=== PATIENT | female | born 1950 | race Caucasian/White ===

== ENCOUNTER 2023-07-27 10:21 | Outpatient (OUT) | payer MEDICARE, OTHER, SELFPAY ==
--- NOTE | 2023-07-27 10:32 | MM_ITS ---
Patient: MIKY NOLEN Exam Date: 07/27/2023 : 1950 Gender:F Ordering : DR CORNEL ANAYA Admission #: [id number] Family : Order #: [id number] CLICK HERE TO VIEW EXAM RADIOLOGY REPORT PROCEDURE: MM TOMOSYNTHESIS SCREENING BI COMPARISON: MG MAMM SCREEN 3D TANMAY CAD, 05/04/2022. MG MAMM SCREEN TANMAY W CAD, 12/28/2020. MG MAMM SCREEN TANMAY W CAD, 01/27/2019. MG MAMM TANMAY SCRN W CAD DIG, 11/10/2013. INDICATIONS: Screening Calculator Name NCI Breast Cancer Risk Assessment Tool 5 Year Breast Cancer Risk 1.70% Lifetime Breast Cancer Risk 4.30% Personal Breast Cancer No Personal Ovarian Cancer No Treatments Hysterectomy, Oophrectomy Family Cancers Grandmother-maternal with throat,mouth cancer at age ~50; Brother with colon cancer at age ~60. LOCATION: [facility] BREAST COMPOSITION: Scattered areas fibroglandular density. FINDINGS: DIAGNOSTIC CATEGORY 2--BENIGN FINDING: RIGHT BREAST: No significant suspicious finding. Stable chronic opacity/nodule within the anterior lower-outer quadrant. No significant change has occurred. LEFT BREAST: No significant suspicious finding. No significant change has occurred. RECOMMENDATIONS: ROUTINE MAMMOGRAM AND CLINICAL EVALUATION IN 12 MONTHS. PLEASE NOTE: A NORMAL MAMMOGRAM DOES NOT EXCLUDE THE POSSIBILITY OF BREAST CANCER. A CLINICALLY SUSPICIOUS PALPABLE LUMP SHOULD BE BIOPSIED. Dictated by: Agusto Blanc M.D. on 07/27/2023 at 13:03 Approved by: Agusto Blanc M.D. on 07/27/2023 at 13:08
[2023-07-27 11:12] LABS: Bilirubin Urine NEGATIVE (NEGATIVE); Blood Urine LARGE (NEGATIVE); Clarity Urine CLEAR (CLEAR); Color Urine YELLOW (YELLOW); Glucose Urine UA NEGATIVE (NEGATIVE); Ketones Urine NEGATIVE (NEGATIVE); Leukocyte Esterase Urine TRACE (NEGATIVE); Nitrite Urine NEGATIVE (NEGATIVE); Protein Urine 100 mg/dL (NEG/TRACE); Specific Gravity Urine >=1.030 (1.005-1.025); Urobilinogen Urine 0.2 EU/dL (0.2-1.0); pH Urine 5.5 (5.0-9.0)
== END 2023-07-27 10:22 | disposition home or self-care (01) ==
LOC: MAMMO 10:26
PROVIDERS: PCP Family Medicine; Visit Provider Family Medicine
DX: Z12.31 Encounter for screening mammogram for malignant neoplasm of breast (principal); I10 Essential (primary) hypertension; R41.3 Other amnesia; Z80.0 Family history of malignant neoplasm of digestive organs
CPT/HCPCS: 77063; 77067; 81003

== ENCOUNTER 2023-10-08 16:10 | Outpatient (OUT) | payer MEDICARE, OTHER, SELFPAY ==
--- NOTE | 2023-10-08 | XR_ITS ---
The [address] [address] Patient Name: MIKY NOLEN MRN: [id number] date: 1950 Sex: F Assigned Patient Location: [facility] Current Patient Location: Accession/Order Number: [id number] Exam Date: 10/08/2023 16:25 Report Date: 10/09/2023 01:56 At the request of: DORA ALCAZAR Procedure: XR abdomen 1V EXAMINATION: XR abdomen 1V HISTORY: HX of Kidney Stones ; right abdominal pain, blood in urine COMPARISON: XR KUB 02/20/2023 FINDINGS: KIDNEY/URETER - RIGHT: Several calcifications projecting over kidney, with new 6 mm calcification projecting over renal pelvis versus proximal ureter. KIDNEY/URETER - LEFT: No visible renal or ureteral calcifications. PELVIS: No visible distal ureteral stone. Pelvic calcifications are grossly stable and favor phleboliths. BOWEL: No abnormal dilation or deviation. BONES: No acute abnormality. OTHER: Left upper quadrant rim calcifications which appear stable; suspect splenic artery aneurysm. XR/XR abdomen 1V IMPRESSION: 1. New stone within the renal pelvis versus proximal right ureter raising concern for hydronephrosis. Electronically authenticated by: KYLE CHENEY Date: 10/09/2023 01:56
== END 2023-10-08 16:11 | disposition home or self-care (01) ==
PROVIDERS: PCP Family Medicine; Visit Provider Physician Assistant
DX: N20.0 Calculus of kidney (principal)
CPT/HCPCS: 74018

== ENCOUNTER 2023-10-11 10:12 | Outpatient (OUT) | payer MEDICARE, OTHER, SELFPAY ==
--- NOTE | 2023-10-11 10:16 | CT_ITS ---
The [address] [address] Patient Name: MIKY NOLEN MRN: [id number] date: 1950 Sex: F Assigned Patient Location: CT Current Patient Location: Accession/Order Number: [id number] Exam Date: 10/11/2023 10:20 Report Date: 10/11/2023 22:45 At the request of: DORA ALCAZAR Procedure: CT abdomen pelvis wo con EXAM: CT abdomen pelvis wo con HISTORY: Kidney Stone N20.0 COMPARISON: CT abdomen pelvis, 03/17/2023. TECHNIQUE: Nonenhanced CT imaging the abdomen and pelvis was performed with sagittal and coronal reconstructions. Dose reduction techniques were achieved by using automated exposure control and/or adjustment of mA and/or kV according to patient size and/or use of iterative reconstruction technique. FINDINGS: CT ABDOMEN: The lung bases are clear. The imaged lower heart is unremarkable. The liver is enlarged at 20 cm in length on coronal image 47, but appears otherwise unremarkable. Cholelithiasis is noted without cholecystitis or biliary ductal dilatation. Age-related atrophy is seen in the otherwise unremarkable pancreas. There is a 1.2 cm central splenic cyst on image 22. The spleen is otherwise unremarkable. The adrenal glands appear within normal limits. There is mild right hydronephrosis due to a 9 mm stone near the right UPJ on image 49 of series 3, new since prior exam. Multiple additional smaller right renal calculi are noted. There is mild left hydronephrosis with a 5 mm proximal left ureteral stone at the L4 level on image 51. 2 punctate 1 mm left renal calculi are suggested image 41. The left kidney is otherwise unremarkable. There are minimal aortic and iliac arterial calcifications without aneurysm. The IVC appears unremarkable. There appears to be prior gastric bypass. The nonenhanced stomach and small bowel are otherwise unremarkable. CT PELVIS: A mobile cecum extends just across midline in the upper pelvic region on image 69. There is no cecal volvulus. The colon appears otherwise unremarkable. The pelvic small bowel loops and urinary bladder appear unremarkable. Prior hysterectomy is noted. The ovaries and appendix are not seen and may been removed as well. Bilateral pelvic phleboliths are present. No inflammatory fat stranding, free fluid, loculated fluid or free air is seen in the abdomen or pelvis. There is a mild grade 1 anterolisthesis of L4 on L5. No acute osseous abnormality or suspicious bony lesion is seen. CT/CT abdomen pelvis wo con IMPRESSION: 1. Multiple bilateral renal calculi with mild right hydronephrosis due to a new 9 mm stone near the right UPJ. 2. Mild left hydroureteronephrosis due to a new 5 mm left ureteral stone at the L4 level at the pelvic inlet. No additional acute findings in the abdomen or pelvis. Stable chronic changes are described above. Electronically authenticated by: LINO DUNN Date: 10/11/2023 22:45
== END 2023-10-11 10:13 | disposition home or self-care (01) ==
LOC: CT 10:12
PROVIDERS: PCP Family Medicine; Visit Provider Physician Assistant
DX: N20.0 Calculus of kidney (principal); N13.39 Other hydronephrosis
CPT/HCPCS: 74176

== ENCOUNTER 2023-10-24 15:52 | Outpatient (OUT) | payer MEDICARE, OTHER, SELFPAY ==
--- NOTE | 2023-10-24 15:54 | XR_ITS ---
The [address] [address] Patient Name: MIKY NOLEN MRN: [id number] date: 1950 Sex: F Assigned Patient Location: [facility] Current Patient Location: Accession/Order Number: [id number] Exam Date: 10/24/2023 15:57 Report Date: 10/26/2023 07:29 At the request of: YEHUDA HASSAN Procedure: XR abdomen 1V EXAMINATION: XR abdomen 1V HISTORY: Kidney Stone N20.0 COMPARISON: XR abdomen 10/08/2023, CT abdomen pelvis 03/05/2023 FINDINGS: KIDNEY/URETER - RIGHT: Persistent stones within right kidney. KIDNEY/URETER - LEFT: Small calcification projecting over left kidney. PELVIS: No appreciable ureteral stones. Stable pelvic calcifications favor phleboliths. BOWEL: No abnormal dilation or deviation. BONES: No acute abnormality. OTHER: Stable left upper quadrant splenic artery calcifications. Numerous surgical clips within the epigastric region. XR/XR abdomen 1V IMPRESSION: 1. Bilateral nephrolithiasis. 2. Previously seen calcification projecting over region of right renal pelvis/proximal ureter is no longer present, suggesting this has passed. Electronically authenticated by: KYLE CHENEY Date: 10/26/2023 07:29
--- OUTSIDE RECORDS SUMMARY | 2023-10-24 17:00 | XMS_ITS | CCD ---
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 Nick Carter Attending Unava ilable Carrillo, VERO Garcia Referring Unavailable WEST, DR WILLARD Pittman Admitting Unavailable FURLONG, DR CONNOR Marinelli Primary Care Unavailable WEST, DR WILLARD Pittman Attending Unavailable WEST, DR WILLARD Pittman Admitting Unavailable WEST, DR WILLARD Pittman Consulting Unavailable [facility] DR CONNOR Marinelli Primary Care Unavailable WEST, DR WILLARD Pittman Attending Unavailable FURLONG, DR CONNOR Marinelli Primary Care Unavailable WEST, DR WILLARD Pittamn Consulting Unavailable WEST, DR WILLARD Pittman Admitting Unavailable WEST, DR WILLARD Pittman Attending Unavailable MISC, DOCTOR Admitting Unavailable MISC, DOCTOR Attending Unavailable AVITIA ., DR DAN Consulting Unavailable FURLONG, DR CONNOR Marinelli Primary Care Unavailable MISC, DOCTOR Consulting Unavailable MO ., DR DAN Admitting Unavailable AVITIA ., DR DAN Attending Unavailable AVITIA ., DR DAN Consulting Unavailable FURLONG, DR CONNOR Marinelli Primary Care Unavailable Agusto Blanc Consulting Unavailable BEE, DR WILLARD Pittman Consulting Unavailable BEE, DR WILLARD Pittman Admitting Unavailable FURLONG, DR CONNOR Marinelli Primary Care Unavailable WEST, DR WILLARD Pittman Attending Unavailable Agusto Blanc Consulting Unavailable WEST, DR WILLARD Pittman Consulting Unavailable WEST, DR WILLARD Pittman Admitting Unavailable FURLONG, DR CONNOR Marinelli Primary Care Unavailable WEST, DR WILLARD Pittman Attending Unavailable ZieberAgusto Consulting Unavailable AVITIA ., DR DAN Admitting Unavailable AVITIA ., DR DAN Attending Unavailable AVITIA ., DR DAN Consulting Unavailable FURLONG, DR CONNOR Marinelli Primary Care Unavailable Zieber, Agusto Consulting Unavailable AVITIA ., DR DAN Admitting Unavailable AVITIA ., DR DAN Attending Unavailable AVITIA ., DR DAN Consulting Unavailable FURLONG, DR CONNOR Marinelli Primary Care Unavailable Zieber, Agusto Consulting Unavailable WEST, DR WILLARD Pittman Consulting Unavailable FURLONG, DR CONNOR Marinelli Primary Care Unavailable WEST, DR WILLARD Pittman Admgabriela Unavailable WEST, DR WILLARD Pittman Attending Unavailable FURLONG, DR CONNOR Marinelli Primary Care Unavailable WEST, DR WILLARD Pittman Admitting Unavailable WEST, DR WILLARD Pittman Consulting Unavailable WEST, DR WILLARD Pittman Attending Unavailable ZieberAgusto Consulting Unavailable FURLONG, DR CONNOR Marinelli Primary Care Unavailable WEST, DR WILLARD Pittman Consulting Unavailable WEST, DR WILLARD Pittman Admitting Unavailable WEST, DR WILLARD Pittman Attending Unavailable WEST, DR WILLARD Pittman Consulting Unavailable WEST, DR WILLARD Pittman Attending Unavailable WEST, DR WILLARD Pittman Admgabriela Unavailable FURLONG, DR CONNOR Marinelli Primary Care Unavailable Zieber, Agusto Consulting Unavailable WEST, DR WILLARD Pittman Consulting Unavailable WEST, DR WILLARD Pittman Admitting Unavailable FURLONG, DR CONNOR Marinelli Primary Care Unavailable WEST, DR WILLARD Pittman Attending Unavailable ZiebAgusto loya Consulting Unavailable WEST, DR WILLARD Pittman Consulting Unavailable FURLONG, DR CONNOR Marinelli Primary Care Unavailable WEST, DR WILLARD Pittman Admgabriela Unavailable WEST, DR WILLARD Pittman Attending Unavailable FURLONG, DR CONNOR Marinelli Primary Care Unavailable AVITIA ., DR DAN Admitting Unavailable AVITIA ., DR DAN Attending Unavailable AVITIA ., DR DAN Consulting Unavailable SANTHOSH NICK Consulting Unavailable FURLONG, DR CONNOR Marinelli Consulting Unavailable FURLONG, DR CONNOR Marinelli Admitting Unavailable FURLONG, DR CONNOR Marinelli Attending Unavailable FURLONG, DR CONNOR Marinelli Primary Care Unavailable Zieber, Agusto Consulting Unavailable FURLONG, DR CONNOR Marinelli Primary Care Unavailable STEPANIC, DR LAKHANI Attending Unavailable STEPANIC, DR LAKHANI Consulting Unavailable STEPANIC, DR LAKHANI Admitting Unavailable MISC, DOCTOR Admitting Unavailable MISC, DOCTOR Attending Unavailable AVITIA ., DR DAN Consulting Unavailable FURLONG, DR CONNOR Marinelli Primary Care Unavailable WEST, DR WILLARD Pittman Consulting Unavailable Zieber, Agusto Consulting Unavailable WEST, DR WILLARD Pittman Consulting Unavailable WEST, DR WILLARD Pittman Attending Unavailable WEST, DR WILLARD Pittman Admitting Unavailable FURLONG, DR CONNOR Marinelli Primary Care Unavailable WEST, DR WILLARD Pittman Consulting Unavailable FURLONG, DR CONNOR Marinelli Primary Care Unavailable WEST, DR WILLARD Pittman Admitting Unavailable WEST, DR WILLARD Pittman Attending Unavailable Zieber, Agusto Consulting Unavailable WEST, DR WILLARD Pittman Consulting Unavailable FURLONG, DR CONNOR Marinelli Primary Care Unavailable WEST, DR WILLARD Pittman Admitting Unavailable WEST, DR WILLARD Pittman Attending Unavailable WEST, DR WILLARD Pittman Consulting Unavailable FURLONG, DR CONNOR Marinelli Primary Care Unavailable WEST, DR WILLARD Pittman Admitting Unavailable WEST, DR WILLARD Pittman Attending Unavailable Zieber, Agusto Consulting Unavailable WEST, DR WILLARD Pittman Consulting Unavailable FURLONG, DR CONNOR Marinelli Primary Care Unavailable WEST, DR WILLARD Pittman Admgabriela Unavailable WEST, DR WILLARD Pittman Attending Unavailable Zieber, Agusto Consulting Unavailable WEST, DR WILLARD Pittman Admitting Unavailable WEST, DR WILLARD Pittman Consulting Unavailable FURLONG, DR CONNOR Marinelli Primary Care Unavailable WEST, DR WILLARD Pittman Attending Unavailable WEST, DR WILLARD Pittman Consulting Unavailable WEST, DR WILLARD Pittman Admitting Unavailable FURLONG, DR CONNOR Marinelli Primary Care Unavailable WEST, DR WILLARD Pittman Attending Unavailable FURLONG, DR CONNOR Marinelli Primary Care Unavailable WEST, DR WILLARD Pittman Consulting Unavailable WEST, DR WILLARD Pittman Admgabriela Unavailable WEST, DR WILLARD Pittman Attending Unavailable ZiebAgusto loya Consulting Unavailable FURLONG, DR CONNOR Marinelli Primary Care Unavailable WEST, DR WILLARD Giraldo Unavailable WEST, DR WILLARD Pittman Admgabriela Unavailable WEST, DR WILLARD Pittman Attending Unavailable FURLONG, DR CONNOR Marinelli Primary Care Unavailable WEST, DR WILLARD Pittman Consulting Unavailable WEST, DR WILLARD Pittman Admgabriela Unavailable WEST, DR WILLARD Pittman Attending Unavailable FURLONG, DR CONNOR Marinelli Primary Care Unavailable WEST, DR WILLARD Pittman Consulting Unavailable WEST, DR WILLARD Pittman Admitting Unavailable WEST, DR WILLARD Pittman Attending Unavailable Zieber, Agusto Consulting Unavailable WEST, DR WILLARD Pittman Consulting Unavailable WEST, DR WILLARD Pittman Attending Unavailable WEST, DR WILLARD Pittman Admitting Unavailable FURLONG, DR CONNOR Marinelli Primary Care Unavailable WEST, DR WILLARD Pittman Consulting Unavailable FURLONG, DR CONNOR Marinelli Primary Care Unavailable WEST, DR WILLARD Pittman Admitting Unavailable WEST, DR WILLARD Pittman Attending Unavailable MO ., DR DAN Admitting Unavailable AVITIA ., DR DAN Attending Unavailable AVITIA ., DR DAN Consulting Unavailable [place]UST[place], DR CONNOR Marinelli Primary Care Unavailable GAIL, DR WILLARD Pittman Consulting Unavailable GAIL, DR WILLARD Pittman Admitting Unavailable AUST[place], DR CONNOR Marinelli Primary Care Unavailable GAIL, DR WILLARD Pittman Attending Unavailable [facility] Admitting Unavailable [facility], [facility]CTOR Attending Unavailable [facility], [facility]CTOR Consulting Unavailable MARKEL, DR CONNOR Marinelli Primary Care Unavailable Sy AVITIA Attending Unavailable Sy AVITIA Attending Unavailable DORA ALCAZAR Attending Unavailable Allergies Allergy Classification Reported Allergen(s) Allergy Type Date of Onset Reaction(s) Facility (12 sources) Ciprofloxacin; Translations: [ciprofloxacin] Drug Allergy Eruption of skin (disorder) [facility] (12 sources) Sulfonamides (Antibiotic); Translations: [Sulfa Drugs] Allergy to drug (finding) Eruption of skin (disorder) [facility] (7 sources) corn extract; Translations: [[place]] Drug Allergy Unknown (qualifier value) [facility] (5 sources) Dog; Translations: [Dogs] Allergy to substance Unknown (qualifier value) [facility] (6 sources) Mold Extract; Translations: [mold] Drug Allergy Unknown (qualifier value) [facility] (5 sources) Milk Products; Translations: [Milk Products] Food allergy Unknown (qualifier value) [facility] (5 sources) house dust mite allergen extract; Translations: [house dust mite allergen extra] Allergy to substance Unknown (qualifier value) [facility] (2 sources) Ciprofloxacin Drug Allergy 4 [facility] (1 source) house dust allergenic extract Drug Allergy [facility] (2 sources) Lactose Drug Allergy [facility] (1 source) Sulfonamides (Antibiotic) Drug allergy (disorder) [facility] Medications Current Medications Medication Drug Class(es) Dates Sig (Normalized) Sig (Original) 8 hr acetaminophen 650 mg extended release oral tablet (11 sources) Start: 07-01-2020 take 1 tablet by mouth twice daily Tylenol 8 HR Arthritis Pain 650 mg oral tablet, extended release 650 mg = 1 tab(s), Oral, BID, Refills(s) 0 Start Date: 07/01/20 Status: Ordered allopurinol 300 mg oral tablet (11 sources) Xanthine Oxidase Inhibitor Start: 02-02-2022 take 1 tablet by mouth once daily allopurinol 300 mg Tab 300 mg = 1 tab(s), Oral, Daily, # 90 cap(s), Refills(s) 3, Pharmacy: [id number], 165, cm, 12/28/21 14:34:00 EST, Height/Length Dosing, 113.5, kg, 12/28/21 14:34:00 EST, Weight Dosing Start Date: 02/02/22 Status: Ordered Calcium Carbonate (11 sources) Start: 07-29-2019 take 1 tablet by mouth twice daily Caltrate 600 + D tab(s), Oral, BID Start Date: 07/29/19 Status: Ordered Caltrate 600+D T ABS Take 1 tablet daily Quantity: 0 Refills: 0 Ordered: 16-Aug-2021 DO Active Centrum Silver (4 sources) Start: 07-01-2020 take 1 tablet by mouth once daily Centrum Silver 1 tab(s), Oral, Daily, Refill(s) 0 Start Date: 07/01/20 Status: Ordered lisinopril 2.5 mg oral tablet (5 sources) Angiotensin Converting Enzyme Inhibitor Start: 06-30-2022 lisinopril 2.5 mg Tab Refills(s) 0 Start Date: 06/30/22 Status: Ordered loratadine 10 mg oral tablet (11 sources) Start: 07-29-2019 take 10 mg by mouth once daily Claritin 10 mg, Oral, Daily, Refills(s) 0 Start Date: 07/29/19 Status: Ordered take 1 capsule by mouth once devang ly Loratadine 10 MG Oral Capsule TAKE 1 CAPSULE Daily Quantity: 0 Refills: 0 Ordered: 16-Aug-2021 DO Active Abelino Krill Oil (4 sources) Start: 07-29-2019 take 1 capsule by mouth once daily Abelino Krill Oil Abelino Krill Oil, one cap., Oral, Daily Start Date: 07/29/19 Status: Ordered OTC joint supplement (4 sources) Start: 07-01-2020 take 1 tablet by mouth once daily OTC joint supplement OTC joint supplement, one tab, Oral, Daily Start Date: 07/01/20 Status: Ordered Vitamin D3 (4 sources) Start: 07-29-2019 Vitamin D3 1,0 00 International_Unit, Oral, Daily, Refills(s) 0 Start Date: 07/29/19 Status: Ordered Completed/Discontinued Medications Medication Drug Class(es) Dates Sig (Normalized) Sig (Original) Centrum Silver 50+Women Oral Tablet (7 sources) take 1 tablet by mouth once daily Centrum Silver 50+Women Oral Tablet TAKE 1 TABLET DAILY. Quantity: 0 Refills: 0 Ordered: 16-Aug-2021 DO Active cephalexin 500 mg oral capsule (1 source) Cephalosporin Antibacterial Start: 08-22-2022 take 1 capsule by mouth once daily Keflex 500 mg Cap 500 mg = 1 cap(s), Oral, Daily, Take 1 capsule the day before the procedure and 1 capsule after the procedure, # 2 cap(s), Refills(s) 0, Pharmacy: [facility] [id number], 165, cm, 06/30/22 11:48:00 EDT, Height/Length Dosing, 113, kg, 06/30/22 11:4... Start Date: 08/22/22 Status: Ordered cholecalciferol 0.025 mg oral tablet (7 sources) Vitamin D take 1 tablet by mouth twice daily Vitamin D3 25 MCG (1000 UT) Oral Tablet Take 1 tablet twice daily Quantity: 0 Refills: 0 Ordered: 16-Aug-2021 DO Active Collagen Ultra Oral Capsule (7 sources) take 1 capsule by mouth once daily Collagen Ultra Oral Capsule TAKE 1 CAPSULE Daily Quantity: 0 Refills: 0 Ordered: 16-Aug-2021 DO Active dronedarone 400 mg oral tablet (11 sources) Antiarrhythmic Start: 11-20-2022 take 1 tablet by mouth twice daily Multaq 400 MG Oral Tablet TAKE 1 TABLET Twice daily Quantity: 180 Refills: 3 Ordered: 20-Nov-2022 Nick Richardson MD Start : 20-Nov-2022 Active Start: 07-29-2019 take 400 mg by mouth twice daily Multaq 400 mg, Oral, BID, Refills(s) 0 Start Date: 07/29/19 Status: Ordered levothyroxine sodium 0.137 mg oral capsule (11 sources) l-Thyroxine Start: 07-29-2019 take 1 capsule by mouth once daily levothyroxine 137 mcg (0.137 mg) oral capsule 137 microgram = 1 cap(s), Oral, Daily Start Date: 07/29/19 Status: Ordered take 1 tablet by mouth once don y Levothyroxine Sodium 137 MCG Oral Tablet TAKE 1 TABLET DAILY. Quantity: 0 Refills: 0 Ordered: 16-Aug-2021 DO Active lovastatin 10 mg oral tablet (7 sources) HMG-CoA Reductase Inhibitor take 1 tablet by mouth once daily Lovastatin 10 MG Oral Tablet TAKE 1 TABLET DAILY DIRECTED. Quantity: 90 Refills: 3 Ordered: 06-Dec-2022 Nick Richardson MD Active [place] 3 CAPS (7 sources) [place] 3 CAPS BASSAM E DIRECTED. Quantity: 0 Refills: 0 Ordered: 16-Aug-2021 DO Active rivaroxaban 20 mg oral tablet (11 sources) Factor Xa Inhibitor Start: 07-29-2019 take 1 tablet by mouth once daily Xarelto 20 MG Oral Tablet TAKE 1 TABLET BY MOUTH DAILY Quantity: 90 Refills: 3 Ordered: 22-Aug-2022 Radha Tellez Start : 22-Aug-2022 Active Problems Active Problems Problem Classification Problem Date Documented Da te Episodic/Chronic Biliary tract disease (4 sources) Biliary calculus 12-07-2020 Episodic Calculus of urinary tract (20 sources) Kidney stone; Translations: [Calculus of kidney] Onset: 06-30-2022 Episodic Cardiac dysrhythmias (7 sources) Paroxysmal atrial fibrillation; Translations: [Atrial fibrillation] Chronic Diabetes mellitus without complication (5 sources) Diabetes mellitus; Translations: [Type 2 diabetes mellitus without complications] Onset: 02-24-2023 08-25-2019 Chronic Disorders of lipid metabolism (7 sources) Hyperlipidemia; Translations: [Other and unspecified hyperlipidemia] Chronic Essential hypertension (5 sources) Hypertensive disorder; Translations: [Essential (primary) hypertension] Onset: 02-24-2023 08-25-2019 Chronic Genitourinary symptoms and ill-defined conditions (4 sources) Genuine stress incontinence 08-16-2020 Chronic Genitourinary symptoms and ill-defined conditions (19 sources) Microscopic hematuria; Translations: [Asymptomatic microscopic hematuria] Onset: 06-30-2022 Episodic Heart valve disorders (4 sources) Irregular heart beat 08-25-2019 Episodic Nutritional deficiencies (1 source) Vitamin D deficiency, unspecified; Translations: [VITAMIN D DEFICIENCY UNSPECIFIED] Onset: 02-24-2023 Chronic Other aftercare (7 sources) Drug therapy finding; Translations: [Long-term (current) use of anticoagulants] Episodic Other circulatory disease (7 sources) Carotid bruit; Translations: [Other symptoms involving cardiovascular system] Episodic Other gastrointestinal disorders (4 sources) Bariatric surgery status; Translations: [BARIATRIC SURGERY STATUS] Onset: 02-20-2023 Episodic Other nutritional; endocrine; and metabolic disorders (14 sources) Body mass index 40+ - severely obese; Translations: [Body Mass Index 40.0-44.9, adult] 07-29-2019 Chronic Other nutritional; endocrine; and metabolic disorders (2 sources) Morbid obesity; Translations: [Morbid obesity] Chronic Other nutritional; endocrine; and metabolic disorders (1 source) Obesity; Translations: [Obesity, unspecified] Chronic [place]ne-; endo-; and myocarditis; cardiomyopathy (except that caused by tuberculosis or sexually transmitted disease) (7 sources) Cardiomyopathy; Translations: [Other primary cardiomyopathies] Chronic Residual codes; unclassified (1 source) Edema, unspecified; Translations: [EDEMA UNSPECIFIED] Onset: 02-24-2023 Episodic Septicemia (except in labor) (4 sources) Sepsis due to Enterobacter 08-16-2020 Episodic Thyroid disorders (11 sources) Hypothyroidism; Translations: [Unspecified acquired hypothyroidism] 08-25-2019 Chronic Unclassified (4 sources) Asymptomatic microscopic hematuria 08-16-2020 Unclassified (4 sources) Drug therapy finding 10-20-2020 Unclassified (1 source) GASTR-ESOPH RFLX DS ESPHGTS W/O BLD; Translations: [GASTR-ESOPH RFLX DS ESPHGTS W/O BLD] Onset: 02-24-2023 Urinary tract infections (5 sources) Urinary tract infectious disease; Translations: [Urinary tract infection, site not specified] Onset: 08-11-2022 08-16-2020 Episodic Past or Other Problems Problem Classification Problem Date Documented Da te Episodic/Chronic Other aftercare (4 sources) Encounter for surgical aftercare following surgery on the circulatory system; Translations: [ENC SURG AFTRCARE FLW SURG CIRC SYS] Onset: 2 Episodic Other circulatory disease (7 sources) H/O: hypertension; Translations: [Personal history of other diseases of circulatory system] Resolved: 1 Episodic Other nutritional; endocrine; and metabolic disorders (7 sources) H/O: diabetes mellitus; Translations: [Personal history of other endocrine, metabolic, and immunity disorders] Resolved: 1 Episodic Other screening for suspected conditions (not mental disorders or infectious disease) (8 sources) CT of abdomen abnormal; Translations: [Encounter for screening mammogram for malignant neoplasm of breast] Onset: 2 12-07-2020 Episodic Phlebitis; thrombophlebitis and thromboembolism (10 sources) Phlebitis and thrombophlebitis of superficial vessels of right lower extremity; Translations: [Phlebitis and thrombophlebitis of superficial vessels of left lower extremity] Onset: 2 Episodic Residual codes; unclassified (1 source) Family history of malignant neoplasm of digestive organs; Translations: [FAM HX MALIG NEOPLASM DIGESTIV ORGN] Onset: 2 Episodic Unclassified (1 source) Imaging result normal; Translations: [Normal coronary angiogram] Unclassified (5 sources) Never smoked tobacco; Translations: [Never a smoker] Varicose veins of lower extremity (5 sources) Varicose veins of bilateral lower extremities with pain; Translations: [VARICOSE VNS TANMAY LOW EXTREM W/PAIN] Onset: 2 Episodic Results Test Name Value Interpretation Reference Range Facility RAD - CT Reporton 10-16-2023 RAD - CT Report [id number] Normal [facility] RAD - CT Reporton 10-15-2023 RAD - CT Report [id number] 0TIFF Normal [facility] RAD - MISCon 10-15-2023 RAD - MISC [id number] 0TIFF Normal [facility] RAD - MISC [id number] 0TIFF Normal [facility] Ambulatory Visit Summaryon 1 12-10-2022 Ambulatory Visit Summary MIKY NOLEN :1950 Visit Date:10/09/2023 Ambulatory Visit Instructions Your Diagnosis Gross hematuria Right flank pain Tests Performed Urnls Dip Stick Auto w/o Microscopy POC 37515 Your Care Team Attending Physician - DORA ALCAZAR PA-C Primary Care Physician - CONNRO JEAN BAPTISTE DO This Is Your Medications List Non-Formulary Medication (OTC joint supplement) acetaminophen (Tylenol 8 HR Arthritis Pain 650 mg oral tablet, extended release) allopurinol (allopurinol 300 mg Tab) calcium-vitamin D (Caltrate 600 + D) cholecalciferol (Vitamin D3) dronedarone (Multaq) levothyroxine (levothyroxine 137 mcg (0.137 mg) oral capsule) lisinopril (lisinopril 2.5 mg Tab) lovastatin (lovastatin 10 mg Tab) multivitamin with minerals (Centrum Silver) rivaroxaban (Xarelto 20 mg oral tablet) Procedures Performed Cystoscopy (09/05/2022), Cystoscopy (11/30/2020), Cystoscopy (07/14/2020), Cystoscopy (07/08/2020), ESWL - Extracorporeal shock wave lithotripsy of bile duct calculus (07/17/2019), Gastric sleeve (10/29/2015), H/O: hysterectomy, Renal artery stent, Repair of ventral hernia. Discharge Vitals Height 165 cm Height 65 in Weight 113 kg Weight 248.6 lb BMI 41.51 Medications What How Much When Instructions Unchanged acetaminophen (Tylenol 8 HR Arthritis Pain 650 mg oral tablet, extended release) 1 Tablets By Mouth 2 times a day Unchanged allopurinol (allopurinol 300 mg Tab) 1 Tablets By Mouth Every day Unchanged calcium-vitamin D (Caltrate 600 + D) By Mouth 2 times a day Unchanged cholecalciferol (Vitamin D3) 1,000 International unit By Mouth Every day Unchanged dronedarone (Multaq) 400 Milligram By Mouth 2 times a day Unchanged levothyroxine (levothyroxine 137 mcg (0.137 mg) oral capsule) 1 Capsules By Mouth Every day Unchanged lisinopril (lisinopril 2.5 mg Tab) Unchanged lovastatin (lovastatin 10 mg Tab) Unchanged multivitamin with minerals (Centrum Silver) 1 Tablets By Mouth Every day Unchanged Non-Formulary Medication (OTC joint supplement) one tab By Mouth Every day Unchanged rivaroxaban (Xarelto 20 mg oral tablet) 1 Tablets Every day Test Results Urnls Dip Stick Auto w/o Microscopy POC 34112 (10/09/2023) Bilirubin Urine Dipstick - Negative Blood Urine Dipstick - 3+ Large Glucose Urine Dipstick - Negative Ketones Urine Dipstick - Negative Leukocytes Urine Dipstick - Negative Nitrite Urine Dipstick - Negative Protein Urine Dipstick - 3+ (300 mg/dl) Specific [place] Urine Dipstick - >=1.030 Urine Appearance Urine Dipstick - Clear Urine Color Urine Dipstick - Yellow Urobilinogen Urine Dipstick - Normal 0.2-1 EU/dl pH Urine Dipstick - 5.5 Allergies [place] (Unknown) Dogs (Unknown) Milk Products (Unknown) Mold (Unknown) ciprofloxacin (Rash) house dust mite allergen extract (Unknown) sulfa drugs (Rash) Problems Ongoing - Any problem that you are currently receiving treatment for. Abnormal abdominal CT scan Anticoagulated Asymptomatic microscopic hematuria BMI 40.0-44.9, adult BMI 45.0-49.9, adult Cholelithiasis Diabetes Enterobacter sepsis Gross hematuria History of kidney stones Hypertension Hypothyroidism Irregular heart beat Kidney stone Nocturia Stress incontinence Urinary frequency Urinary urgency UTI (urinary tract infection) Patient Survey You may receive a survey via text or e-mail asking about your office visit. Please share your experience with us by completing your survey. We appreciate your feedback and thank you for choosing us for your care. Normal [facility] Patient Educationon 10-09-20 Patient Education Urology Hematuria, Adult Hematuria is blood in the urine. Blood may be visible in the urine, or it may be identified with a test. This condition can be caused by infections of the bladder, urethra, kidney, or prostate. Other possible causes include: ? Kidney stones. ? Cancer of the urinary tract. ? Too much calcium in the urine. ? Conditions that are passed from parent to child (inherited conditions). ? Exercise that requires a lot of energy. Infections can usually be treated with medicine, and a kidney stone usually will pass through your urine. If neither of these is the cause of your hematuria, more tests may be needed to identify the cause of your symptoms. It is very important to tell your health care provider about any blood in your urine, even if it is painless or the blood stops without treatment. Blood in the urine, when it happens and then stops and then happens again, can be a symptom of a very serious condition, including cancer. There is no pain in the initial stages of many urinary cancers. Follow these instructions at home: Medicines ? Take lurg-fjk-wnbfzri and prescription medicines only as told by your health care provider. ? If you were prescribed an antibiotic medicine, take it as told by your health care provider. Do not stop taking the antibiotic even if you start to feel better. Eating and drinking ? Drink enough fluid to keep your urine pale yellow. It is recommended that you drink 3?4 quarts (2.8?3.8 L) a day. If you have been diagnosed with an infection, drinking cranberry juice in addition to large amounts of water is recommended. ? Avoid caffeine, tea, and carbonated beverages. These tend to irritate the bladder. ? Avoid alcohol because it may irritate the prostate (in males). General instructions ? If you have been diagnosed with a kidney stone, follow your health care provider's instructions about straining your urine to catch the stone. ? Empty your bladder often. Avoid holding urine for long periods of time. ? If you are female: ? After a bowel movement, wipe from front to back and use each piece of toilet paper only once. ? Empty your bladder before and after sex. ? Pay attention to any changes in your symptoms. Tell your health care provider about any changes or any new symptoms. ? It is up to you to get the results of any tests. Ask your health care provider, or the department that is doing the test, when your results will be ready. ? Keep all follow-up visits. This is important. Contact a health care provider if: ? You develop back pain. ? You have a fever or chills. ? You have nausea or vomiting. ? Your symptoms do not improve after 3 days. ? Your symptoms get worse. Get help right away if: ? You develop severe vomiting and are unable to take medicine without vomiting. ? You develop severe pain in your back or abdomen even though you are taking medicine. ? You pass a large amount of blood in your urine. ? You pass blood clots in your urine. ? You feel very weak or like you might faint. ? You faint. Summary ? Hematuria is blood in the urine. It has many possible causes. ? It is very important that you tell your health care provider about any blood in your urine, even if it is painless or the blood stops without treatment. ? Take scui-xja-uzhsacn and prescription medicines only as told by your health care provider. ? Drink enough fluid to keep your urine pale yellow. This information is not intended to replace advice given to you by your health care provider. Make sure you discuss any questions you have with your health care provider. Document Revised: 06/15/2021 Document Reviewed: 06/15/2021 [employer] Patient Education ? 2022 [email or web address] [facility] Urology Office/Clinic Noteon 10-09-2023 Urology Office/Clinic Note Chief Complaint Gross hematuria HPI Staff 73 year old female here for F/U with KUB done 10/08/23. Previous DX: kidney stones and gross hematuria. S/P ESWL done 11/18/20. Dysuria: no Incomplete bladder emptying: no Hematuria: Pt. states she was having gross hematuria 3 days ago. Pt. states today urine in much better. Frequency: about 2-3 hours Urgency: moderate Nocturia: 3x's Stream: strong stream Post void dripping: no Wearing pads/ Depends: Pt. states she does wear pad for just in case. Urge incontinence: rarely Stress incontinence: no Incontinence without Sensory Awareness: no Abdominal pain: Pt. states Rt side Flank pain: mild Rt. flank Review of Systems PHQ Score Initial Depression Screen Score: 0 SCORE no fever, chills, malaise, myalgia. no rash/lesions. no chest pain, palpitations, or SOB. no abdominal pain, nausea, vomiting. no unilateral calf swelling, redness, pain Physical Exam Vitals & Measurements HT: 65 in HT: 165 cm WT: 113 kg WT: 248.6 lb BMI: 41.51 General: nontoxic, NAD Mouth: moist mucosa Lungs: normal respiratory effort Cardio: regular rate, good distal perfusion Abdomen: nondistended, no suprapubic distention or tenderness, mild R CVA tenderness Neurologic: Grossly normal Skin: No rashes or suspicious lesions Assessment/Plan 1. Right flank pain (R10.9: Unspecified abdominal pain) started about 5 days ago. intermittent. waxes and wanes in severity btwn mild and moderate. does not radiate. no nausea/vomiting/fever/ chills +gross hematuria x3d, has since resolved feels similar to previous stones KUB 10/08/23 suspicious for 6mm R renal pelvis vs proximal ureteral stone discussed options - STAT WILLARD vs STAT CT w/o. pt prefers the latter. then based on PRW review of results will likely proceed w ESWL. The procedure risks, benefits, details and treatment alternatives have been discussed with the patient. These include blood in the urine, infection, bleeding around the kidney, kidney bruising, inability to break up the stone, need for blood transfusion, blockage from stone fragments, and need for additional procedures, among others. Full informed consent has been obtained. Will order General anesthesia. Flomax sent to help w stone passage. increase fluids. declines offer for pain meds/nausea meds. will call if things worsen. ER in meantime for severe pain, intractable vomiting, fever. Ordered: tamsulosin, 0.4 mg = 1 cap(s), Oral, Daily, # 30 cap(s), Refills(s) 0, Pharmacy: [facility], 165, cm, 10/09/23 15:24:00 EST, Height/Length Dosing, 113, kg, 10/09/23 15:24:00 EST, Weight Dosing CT Abdomen w/o Contrast E&M of Est. Patient Moderate 30-39 Min 78234 2. Kidney stones (N20.0: Calculus of kidney) see #1 KUB from this spring showed several medium (6-7mm) R renal stones has had multiple lithotripsy in past Ordered: tamsulosin, 0.4 mg = 1 cap(s), Oral, Daily, # 30 cap(s), Refills(s) 0, Pharmacy: [facility], 165, cm, 10/09/23 15:24:00 EST, Height/Length Dosing, 113, kg, 10/09/23 15:24:00 EST, Weight Dosing CT Abdomen w/o Contrast E&M of Est. Patient Moderate 30-39 Min 42175 3. Gross hematuria (R31.0: Gross hematuria) see #1 Ordered: tamsulosin, 0.4 mg = 1 cap(s), Oral, Daily, # 30 cap(s), Refills(s) 0, Pharmacy: [facility], 165, cm, 10/09/23 15:24:00 EST, Height/Length Dosing, 113, kg, 10/09/23 15:24:00 EST, Weight Dosing CT Abdomen w/o Contrast E&M of Est. Patient Moderate 30-39 Min 87941 Urnls Dip Stick Auto w/o Microscopy POC [id number] Follow-up With When Contact Information DORA ALCAZAR PA-C, [address] [place] [address] [facility] (1) Additional Instructions: pending results of imaging/testing, will call with next steps Patient Education Hematuria, Adult Problem List/Past Medical History Ongoing Abnormal abdominal CT scan Anticoagulated Asymptomatic microscopic hematuria BMI 40.0-44.9, adult BMI 45.0-49.9, adult Cholelithiasis Diabetes Enterobacter sepsis Gross hematuria History of kidney stones Hypertension Hypothyroidism Irregular heart beat Kidney stone Nocturia Stress incontinence Urinary frequency Urinary urgency UTI (urinary tract infection) Historical No qualifying data Procedure/Surgical History Cystoscopy (09/05/2022), Cystoscopy (11/30/2020), Cystoscopy (07/14/2020), Cystoscopy (07/08/2020), ESWL - Extracorporeal shock wave lithotripsy of bile duct calculus (07/17/2019), Gastric sleeve (10/29/2015), H/O: hysterectomy, Renal artery stent, Repair of ventral hernia. Medications allopurinol 300 mg Tab, 300 mg= 1 tab(s), Oral, Daily, 3 refills Caltrate 600 + D, Oral, BID Centrum Silver, 1 tab(s), Oral, Daily Flomax 0.4 mg Cap, 0.4 mg= 1 cap(s), Oral, Daily levothyroxine 137 mcg (0.137 mg) oral capsule, 137 mcg= 1 cap(s), Oral, Daily lisinopril 2.5 mg Tab lovastatin 10 mg Tab Multaq, 400 mg, Oral, B (more content not included)... Normal [facility] Comment on above: Result Comment: Elec tronically Signed By: DORA ALCAZAR PA-C\.br\Date and Time Signed: 10/09/23 15:49 EST Urine Cytology ([facility])on 0 03-13-2023 Urine Cytology Diagnosis Info Invalid Interpretation Code [facility] Comment on above: Result Comment: A:Ur ine,Urine:Voided Interpretation - Rare small groups of atypical urothelial cells with degeneration. Adequate cellularity for evaluation. MicroScopic Description - Adequacy - Gross Description Site ID:A color Orangeish fixative Alcohol Specimen designated Urine received in alcohol preservative and labeled with the patient?s name, consists of 80ml slightly cloudy orangeish fluid. Electronically signed by : on: 03/13/2023 08:02:13 Performed By: #### 1 [id number] ####[facility] [address] [place] [address] Lab Reportson 03-07-2023 Lab Reports [id number] 0CD:127 Normal [facility] Lab Reports [id number]. 00CD:127 Normal [facility] RAD - CT Reporton 03-07-2023 RAD - CT Report [id number] 0CD:127 Normal [facility] RAD - MISCon 03-07-2023 RAD - MISC [id number] 0CD:127 Normal [facility] CREATININEon 03-05-2023 Creatinine [Mass/Vol] 1.16 mg/dL Critically high 0.55-1.02 [facility] Comment on above: Performed By: #### C AIYANA #### [facility] [address] [address] [address] Alysha Machuca EGFR-AF GRENADIAN 56 mL/min/1.73m2 Critically low >=60 [facility] Comment on above: Performed By: #### C AIYANA #### [facility] [address] [address] [address] Alysha Machuca EGFR-NON AF GRENADIAN 46 mL/min/1.73m2 Critically low >=60 [facility] Comment on above: Performed By: #### C AIYANA #### [facility] [address] [address] ABD/PELVIS WO CONon 03-05 CT ABD/PELVIS WO CON EXAMINATION: CT ABD/PELVIS WO CON HISTORY: Kidney stone ; microscopic hematuria COMPARISON: CT abdomen pelvis 05/26/2022 TECHNIQUE: Axial, Coronal, and Sagittal images were obtained without and/or with IV contrast as indicated by examination type. Dose reduction techniques were achieved by using automated exposure control and/or adjustment of mA and/or kV according to patient size and/or use of iterative reconstruction technique. FINDINGS: LUNG BASES: No visible pulmonary or pleural disease. LIVER: No enlargement, atrophy, suspicious density, or significant focal lesion. BILIARY: 8 mm stone within noninflamed gallbladder. PANCREAS: No lesion, fluid collection, or abnormal duct dilatation. SPLEEN: No enlargement or focal lesion. ADRENALS: No mass or enlargement. KIDNEYS: Several stones within the kidneys, largest is on right, 7 x 6 x 5 mm. No appreciable mass or obstruction. Unremarkable ureters. BOWEL/MESENTERY: Prior gastric surgery. No visible mass, obstruction, or bowel wall thickening. AORTA/VASCULAR: No aneurysm or dissection. RETROPERITONEUM: No mass or adenopathy. LYMPH NODES: No adenopathy. URINARY BLADDER: No visible focal wall thickening, lesion, or calculus. PELVIC ORGANS: Hysterectomy. ABDOMINAL WALL: No mass or hernia. BONES: L4-5 moderate degenerative disc disease and grade 1 anterior listhesis. OTHER: Negative. IMPRESSION: 1. Bilateral nonobstructing nephrolithiasis likely contributing to patient's symptoms. 2.Cholelithiasis. Electronically authenticated by: AGUSTO BLANC Date: 2023-03-05 15:08 Normal [facility] Patient Educationon 03-02-20 23 Patient Education Urology Kidney Stones Kidney stones are rock-like masses that form inside of the kidneys. Kidneys are organs that make pee (urine). A kidney stone may move into other parts of the urinary tract, including: ? The tubes that connect the kidneys to the bladder (ureters). ? The bladder. ? The tube that carries urine out of the body (urethra). Kidney stones can cause very bad pain and can block the flow of pee. The stone usually leaves your body (passes) through your pee. You may need to have a doctor take out the stone. What are the causes? Kidney stones may be caused by: ? A condition in which certain glands make too much parathyroid hormone (primary hyperparathyroidism). ? A buildup of a type of crystals in the bladder made of a chemical called uric acid. The body makes uric acid when you eat certain foods. ? Narrowing (stricture) of one or both of the ureters. ? A kidney blockage that you were born with. ? Past surgery on the kidney or the ureters, such as gastric bypass surgery. What increases the risk? You are more likely to develop this condition if: ? You have had a kidney stone in the past. ? You have a family history of kidney stones. ? You do not drink enough water. ? You eat a diet that is high in protein, salt (sodium), or sugar. ? You are overweight or very overweight (obese). What are the signs or symptoms? Symptoms of a kidney stone may include: ? Pain in the side of the belly, right below the ribs (flank pain). Pain usually spreads (radiates) to the groin. ? Needing to pee often or right away (urgently). ? Pain when going pee (urinating). ? Blood in your pee (hematuria). ? Feeling like you may vomit (nauseous). ? Vomiting. ? Fever and chills. How is this treated? Treatment depends on the size, location, and makeup of the kidney stones. The stones will often pass out of the body through peeing. You may need to: ? Drink more fluid to help pass the stone. In some cases, you may be given fluids through an IV tube put into one of your veins at the hospital. ? Take medicine for pain. ? Make changes in your diet to help keep kidney stones from coming back. Sometimes, medical procedures are needed to remove a kidney stone. This may involve: ? A procedure to break up kidney stones using a beam of light (laser) or shock waves. ? Surgery to remove the kidney stones. Follow these instructions at home: Medicines ? Take xxtm-nwe-lxchzoc and prescription medicines only as told by your doctor. ? Ask your doctor if the medicine prescribed to you requires you to avoid driving or using heavy machinery. Eating and drinking ? Drink enough fluid to keep your pee pale yellow. You may be told to drink at least 8?10 glasses of water each day. This will help you pass the stone. ? If told by your doctor, change your diet. This may include: ? Limiting how much salt you eat. ? Eating more fruits and vegetables. ? Limiting how much meat, poultry, fish, and eggs you eat. ? Follow instructions from your doctor about eating or drinking restrictions. General instructions ? Collect pee samples as told by your doctor. You may need to collect a pee sample: ? 24 hours after a stone comes out. ? 8?12 weeks after a stone comes out, and every 6?12 months after that. ? Strain your pee every time you pee (urinate), for as long as told. Use the strainer that your doctor recommends. ? Do not throw out the stone. Keep it so that it can be tested by your doctor. ? Keep all follow-up visits as told by your doctor. This is important. You may need follow-up tests. How is this prevented? To prevent another kidney stone: ? Drink enough fluid to keep your pee pale yellow. This is the best way to prevent kidney stones. ? Eat healthy foods. ? Avoid certain foods as told by your doctor. You may be told to eat less protein. ? Stay at a healthy weight. Where to find more information ? National Kidney Foundation (NKF): www.kidney.org ? [employer] (UCF): www.urologyhealth.org Contact a doctor if: ? You have pain that gets worse or does not get better with medicine. Get help right away if: ? You have a fever or chills. ? You get very bad pain. ? You get new pain in your belly (abdomen). ? You pass out (faint). ? You cannot pee. Summary ? Kidney stones are rock-like masses that form inside of the kidneys. ? Kidney stones can cause very bad pain and can block the flow of pee. ? The stones will often pass out of the body through peeing. ? Drink enough fluid to keep your pee pale yellow. This information is not intended to replace advice given to you by your health care provider. Make sure you discuss any questions you have with your health care provider. Document Revised: 06/19/2022 Document Reviewed: 06/19/2022 [employer] Patient Education ? 2022 [employer] Normal [facility] Urine Cytology ([facility])on 0 03-02-2023 Method of Extraction Voided Normal [facility] Comment on above: Performed By: #### 1 [id number] ####[facility] [address] [place] [address] Number of Jars 1 Invalid Interpretation Code [facility] Comment on above: Performed By: #### 1 [id number] ####[facility] [address] [place] [address] Specimen Urine Normal [facility] Comment on above: Performed By: #### 1 [id number] ####[facility] [address] [place] [address] Type of Service Technical Only Normal [facility] Comment on above: Performed By: #### 1 [id number] ####[facility] [address] [place] [address] Urology Office/Clinic Noteon 03-02-2023 Urology Office/Clinic Note Chief Complaint follow up w/KUB HPI Staff 8m KUB due to Kidney Stone & Microscopic Hematuria. Since last encounter, pt called our office 08/08/22 c/o blood in urine. NEG C&S done 08/11/22. Cysto then done 09/05/22. NEG Cytology 09/05/22. IVP was ordered, however when pt went to get the test done, they were unable to get IV in. KUB was then done 11/03/22. PRW recommended Holmium Laser. Pt stated she was not having symptoms, wanted to hold off at that time. Pt then called our office again on 12/15/22 c/o blood in urine and back pain, wanted to get KUB. When pt was later contacted about symptoms she then denied blood in urine & back pain. Recent KUB done 02/20/23. Since November denies flank/back pain as well as blood in urine. Has not noticed if she passed stone. Intermittently strains urine. Has been increasing fluid intake as recommended. Denies any current stone symptoms. Denies all urinary complaints. History of Present Illness Tests reviewed: Reviewed UA and KUB. I have reviewed the previous health record information and history for this patient from Dr. Avitia. I have reviewed and verified the staff HPI to be accurate for this encounter. There have been no associated fever, chills, flank pain, or blood in the urine. Denies any urinary infections since last encounter. Review of Systems PHQ Score Initial Depression Screen Score: 0 ROS - Provider Constitutional: denies weight loss, denies hot flashes. Eyes: denies eye problems. Gastrointestinal: denies nausea, denies vomiting. Cardiovascular: denies chest pain or angina. Integumentary: no dryness Musculoskeletal: denies musculoskeletal symptoms. ENMT: denies otolaryngeal symptoms. Respiratory: no shortness of breath. Heme/Lymph: denies easy bleeding tendency, denies easy bruising tendency. Psychiatric: no confusion, no anxiety. Genitourinary: See HPI. Physical Exam Vitals & Measurements HR: 68(Peripheral) RR: 16 BP: 132/80 HT: 65 in HT: 165 cm WT: 113 kg WT: 248.6 lb BMI: 41.51 General Appearance: alert , no acute distress, well nourished, well developed female. Genitourinary: bladder nonpalpable, no flank pain. Assessment/Plan 1. Kidney stone (N20.0: Calculus of kidney) S/p L ESWL 11/18/2020. Stone analysis 12/2020 calcium oxalate stones. Patient continues Allopurinol 300mg daily. Phoned our office 08/08/22 due to gross hematuria which was followed by work up. IVP was ordered 08/2022, however when pt went to get the test done, they were unable to get IV in. KUB was then done 11/03/22. PRW recommended Holmium Laser. Pt stated she was not having symptoms, wanted to hold off at that time. Pt then called our office again on 12/15/22 c/o blood in urine and back pain, wanted to get KUB. When pt was later contacted about symptoms she then denied blood in urine & back pain. KUB 02/20/23 2 stones within inferior pole of right kidney, largest is 6 mm. Since November denies flank/back pain as well as blood in urine. Patient thinks she may have passed stone, but did not see it. Intermittently strains urine. Has been increasing fluid intake as recommended. I advised CT AP w/wo contrast to further evaluate kidneys. 2. Gross hematuria (R31.0: Gross hematuria) Since last encounter, patient called our office 08/08/22 c/o blood in urine. NEG C&S done 08/11/22. Cysto 09/05/22 neg for b.t. NEG Cytology 09/05/22. UA today LARGE blood. Follow-up With When Contact Information MO HAYDEN, Sy Haddad, [address] [place] [address]- Additional Instructions: schedule CT Patient Education Kidney Stones, Yoex-ue-Vbki I, Chantal Bishop, personally scribed for Dr. Avitia on 03/02/2023 12:57:02. . Documentation recorded by the scribe, Chantal Bishop, accurately reflects the services(s) I performed and decisions made by me. Authenticated by Dr. Avitia on 03/02/2023 13:00:02. Problem List/Past Medical History Ongoing Abnormal abdominal CT scan Anticoagulated Asymptomatic microscopic hematuria BMI 40.0-44.9, adult BMI 45.0-49.9, adult Cholelithiasis Diabetes Enterobacter sepsis Gross hematuria History of kidney stones Hypertension Hypothyroidism Irregular heart beat Kidney stone Nocturia Stress incontinence Urinary frequency Urinary urgency UTI (urinary tract infection) Historical No qualifying data Procedure/Surgical History Cystoscopy (09/05/2022), Cystoscopy (11/30/2020), Cystoscopy (07/14/2020), Cystoscopy (07/08/2020), ESWL - Extracorporeal shock wave lithotripsy of bile duct calculus (07/17/2019), Gastric sleeve (10/29/2015), H/O: hysterectomy, Renal artery stent, Repair of ventral hernia. Medications allopurinol 300 mg Tab, 300 mg= 1 tab(s), Oral, Daily, 3 refills Caltrate 600 + D, Oral, BID Centrum Silver, 1 tab(s), Oral, Daily levothyroxine 137 mcg (0.137 mg) oral capsule, 137 mcg= 1 cap(s), Oral, Daily lisinopril 2.5 mg Tab lovastati (more content not included)... Normal [facility] Comment on above: Result Comment: Elec tronically Signed By: Sy AVITIA MD\.br\Date and Time Signed: 03/02/23 13:00 EDT\.br\Electronically Co-Signed By: Chantal Bishop\.br\Date and Time Co-Signed: 03/02/23 12:57 EDT VITAMIN B1 (THIAMINE)on 01-28 Vit. B1, Whole Blood 132.2 nmol/L Normal 66.5-200.0 [facility] Comment on above: Performed By: #### V [id number] ####[facility] [address] [address]Dr[address] Alysha Machuca CBC AUTO DIFFon 02-20-2023 BASO # 0.1 103/ul Normal 0.0-0.1 [facility] Comment on above: Performed By: #### C BC #### [facility] [address] [address] [address] Alysha Machuca Basophils/100 WBC (Bld) 0.9 % Normal 0.2-2.0 [facility] Comment on above: Performed By: #### C BC #### [facility] [address] [address] [address] Alysha Machuca EO # 0.2 103/ul Normal 0.0-0.7 [facility] Comment on above: Performed By: #### C BC #### [facility] [address] [address] [address] Alysha Machuca Eosinophils/100 WBC (Bld) 3.0 % Normal 0.9-7.0 [facility] Comment on above: Performed By: #### C BC #### [facility] [address] [address] [address] Alysha Machuca Erythrocyte distribution width (RBC) [Ratio] 13.9 % Normal 11.0-15.0 [facility] Comment on above: Performed By: #### C BC #### [facility] [address] [address] [address] Alysha Machuca Hematocrit (Bld) [Volume fraction] 39.5 % Normal 36.0-48.0 [facility] Comment on above: Performed By: #### C BC #### [facility] [facility] [address] [place] [address] Dr. Alysha Machuca Hemoglobin (Bld) [Mass/Vol] 12.7 g/dL Normal 12.0-16.0 [facility] Comment on above: Performed By: #### C BC #### [facility] [address] [place] [address] Dr. Alysha Machuca IG # 0.01 10e3/ul Normal 0.00-0.03 [facility] Comment on above: Performed By: #### C BC #### [facility] [address] [place] [address] Dr. Alysha Machuca IG % 0.2 % Normal 0.0-0.5 [facility] Comment on above: Performed By: #### C BC #### [facility] [address] [place] [address] Dr. Alysha Machuca LYMPH # 1.7 103/ul Normal 1.2-3.8 [facility] Comment on above: Performed By: #### C BC #### [facility] [address] [place] [address] Dr. Alysha Machuca Lymphocytes/100 WBC (Bld) 30.7 % Normal 20.5-60.0 [facility] Comment on above: Performed By: #### C BC #### [facility] [address] [place] [address] Dr. Alysha Machuca MANUAL DIFF REQ NO Normal [facility] Comment on above: Performed By: #### C BC #### [facility] [address] [place] [address] Dr. Alysha Machuca MCH (RBC) [Entitic mass] 29.3 pg Normal 26.7-34.0 [facility] Comment on above: Performed By: #### C BC #### [facility] [address] [place] [address] Dr. Alysha Machuca MCHC (RBC) [Mass/Vol] 32.2 g/dL Normal 29.9-35.2 [facility] Comment on above: Performed By: #### C BC #### [facility] [address] [address] [address] Alysha Machuca MCV (RBC) [Entitic vol] 91.0 fL Normal 81.0-99.0 [facility] Comment on above: Performed By: #### C BC #### [facility] [address] [address] [address] Alysha Machuca MONO # 0.4 103/ul Normal 0.3-0.8 [facility] Comment on above: Performed By: #### C BC #### [facility] [address] [address] [address] Alysha Machuca Monocytes/100 WBC (Bld) 6.8 % Normal 1.7-12.0 [facility] Comment on above: Performed By: #### C BC #### [facility] [address] [place] [address] Dr. Alysha Machuca NEUT # 3.3 103/ul Normal 1.4-6.5 [facility] Comment on above: Performed By: #### C BC #### [facility] [address] [place] [address] Dr. Alysha Machuca Neutrophils/100 WBC (Bld) 58.4 % Normal 43.0-75.0 [facility] Comment on above: Performed By: #### C BC #### [facility] [address] [place] [address] Dr. Alysha Machuca Platelet mean volume (Bld) [Entitic vol] 9.3 fL Critically low 9.5-13.5 [facility] Comment on above: Performed By: #### C BC #### [facility] [address] [place] [address] Dr. Alysha Machuca PLT 186 103/ul Normal 150-450 [facility] Comment on above: Performed By: #### C BC #### [facility] [address] [place] [address] Dr. Alysha Machuca RBC 4.34 106/ul Normal 4.20-5.40 [facility] Comment on above: Performed By: #### C BC #### [facility] [address] [place] [address] Dr. Alysha Machuca WBC 5.6 103/ul Normal 4.0-11.0 [facility] Comment on above: Performed By: #### C BC #### [facility] [address] [address] [address] Alysha Machuca FERRITINon 02-20-2023 Ferritin [Mass/Vol] 36.0 ng/mL Normal 8.0-252.0 [facility] Comment on above: Performed By: #### F ERR, B12FOL, FETIBC, VITAD ####[facility] [address] [address]Dr. Alysha Machuca IRON AND TIBCon 02-20-2023 % SATURATION 15.8 % Normal [facility] Comment on above: Performed By: #### F ERR, B12FOL, FETIBC, VITAD ####[facility] [address] [address]Dr. Alysha Machuca Iron [Mass/Vol] 53.0 ug/dL Normal 50.0-170.0 [facility] Comment on above: Performed By: #### F ERR, B12FOL, FETIBC, VITAD ####[facility] [address] [address]Dr. Alysha Machuca TIBC DIRECT 335.0 ug/dL Normal 250.0-450.0 [facility] Comment on above: Performed By: #### F ERR, B12FOL, FETIBC, VITAD ####[facility] [address] [address]Dr. Alysha Machuca MAGNESIUMon 02-20-2023 Magnesium [Mass/Vol] 1.9 mg/dL Normal 1.8-2.4 [facility] Comment on above: Performed By: #### P HOS, CMP, MG #### [facility] [address] [address] [address] Alysha Machuca PHOSPHORUSon 02-20-2023 Phosphate [Mass/Vol] 3.9 mg/dL Normal 2.6-4.7 [facility] Comment on above: Performed By: #### P HOS, CMP, MG #### [facility] [address] [address] [address] Alysha Machuca PROF 14(COMP METB)on 023 Albumin [Mass/Vol] 3.4 g/dL Normal 3.4-5.0 [facility] Comment on above: Performed By: #### P HOS, CMP, MG #### [facility] [address] [address] [address] Alysha Machuca Albumin/Globulin [Mass ratio] 0.9 {ratio} Normal [facility] Comment on above: Performed By: #### P HOS, CMP, MG #### [facility] [address] [address] [address] Alysha Machuca ALP [Catalytic activity/Vol] 123 U/L Critically high 46-116 [facility] Comment on above: Performed By: #### P HOS, CMP, MG #### [facility] [address] [address] [address] Alysha Machuca ALT [Catalytic activity/Vol] 21 U/L Normal 14-59 [facility] Comment on above: Performed By: #### P HOS, CMP, MG #### [facility] [address] [address] [address] Alysha Machuca Anion gap [Moles/Vol] 13.8 mmol/L Normal [facility] Comment on above: Performed By: #### P HOS, CMP, MG #### [facility] [address] [address] [address] Alysha Machuca AST [Catalytic activity/Vol] 15 U/L Normal 15-37 [facility] Comment on above: Performed By: #### P HOS, CMP, MG #### [facility] [address] [address] [address] Alysha Machuca Bilirubin [Mass/Vol] 0.5 mg/dL Normal 0.2-1.0 [facility] Comment on above: Performed By: #### P HOS, CMP, MG #### [facility] [address] [address] [address] Alysha Machuca Calcium [Mass/Vol] 9.6 mg/dL Normal 8.5-10.1 [facility] Comment on above: Performed By: #### P HOS, CMP, MG #### [facility] [address] [address] [address] Alysha Machuca Chloride [Moles/Vol] 103 mmol/L Normal 98-107 [facility] Comment on above: Performed By: #### P HOS, CMP, MG #### [facility] [address] [address] [address] Alysha Machuca CO2 [Moles/Vol] 25.2 mmol/L Normal 21.0-32.0 [facility] Comment on above: Performed By: #### P HOS, CMP, MG #### [facility] [address] [place] [address] Dr. Alysha Machuca Creatinine [Mass/Vol] 0.95 mg/dL Normal 0.55-1.02 [facility] Comment on above: Performed By: #### P HOS, CMP, MG #### [facility] [address] [place] [address] Dr. Alysha Machuca EGFR-AF GRENADIAN >60 Normal >=60 [facility] Comment on above: Performed By: #### P HOS, CMP, MG #### [facility] [address] [place] [address] Dr. Alysha Machuca EGFR-NON AF GRENADIAN 58 mL/min/1.73m2 Critically low >=60 [facility] Comment on above: Performed By: #### P HOS, CMP, MG #### [facility] [address] [place] [address] Dr. Alysha Machuca Globulin (S) [Mass/Vol] 3.6 g/dL Normal [facility] Comment on above: Performed By: #### P HOS, CMP, MG #### [facility] [address] [place] [address] Dr. Alysha Machuca Glucose [Mass/Vol] 96 mg/dL Normal 74-106 [facility] Comment on above: Performed By: #### P HOS, CMP, MG #### [facility] [address] [place] [address] Dr. Alysha Machuca Potassium [Moles/Vol] 4.0 mmol/L Normal 3.5-5.1 [facility] Comment on above: Performed By: #### P HOS, CMP, MG #### [facility] [address] [address] [address] Alysha Machuca Protein [Mass/Vol] 7.0 g/dL Normal 6.4-8.2 [facility] Comment on above: Performed By: #### P HOS, CMP, MG #### [facility] [address] [address] [address] Alysha Machuca Sodium [Moles/Vol] 138 mmol/L Normal 136-145 [facility] Comment on above: Performed By: #### P HOS, CMP, MG #### [facility] [address] [address] [address] Alysha Machuca Urea nitrogen [Mass/Vol] 21.0 mg/dL Critically high 7.0-18.0 [facility] Comment on above: Performed By: #### P HOS, CMP, MG #### [facility] [address] [place] [address] Dr. Alysha Machuca Urea nitrogen/Creatinin e [Mass ratio] 22.1 mg/mg Normal [facility] Comment on above: Performed By: #### P HOS, CMP, MG #### [facility] [address] [place] [address] Dr. Alysha Machuca VIT B12 AND FOLATEon 023 Cobalamin (Vitamin B12) [Mass/Vol] 652.0 pg/mL Normal 193.0-986.0 [facility] Comment on above: Performed By: #### F ERR, B12FOL, FETIBC, VITAD ####[facility] [address] [address]. Alysha Machuca FOLATE 18.30 ng/mL Normal 8.60-58.90 [facility] Comment on above: Performed By: #### F ERR, B12FOL, FETIBC, VITAD ####[facility] [address] [address]. Alysha Machuca VITAMIN D 25 OHon 02-20-2023 VIT D 25-OH 41.7 ng/mL Normal [facility] Comment on above: Performed By: #### F ERR, B12FOL, FETIBC, VITAD ####[facility] [address] [place], [place] [address]Rk. Alysha Machuca VIT D RANGES SEE BELOW Normal [facility] Comment on above: Result Comment: <20 ng/mL Vit D deficient 20 - <30 ng/mL Vit D insufficient 30 - 100 ng/mL Vit D sufficient >100 ng/mL Potential Toxicity Performed By: #### F ERR, B12FOL, FETIBC, VITAD ####[facility] [address] [place], [place] [address]Nh. Alysha Machuca XR KUB 1 VIEWon 02-20-2023 XR KUB 1 VIEW EXAMINATION: XR KUB 1 VIEW HISTORY: Kidney stone COMPARISON: XR KUB 11/03/2022 FINDINGS: KIDNEY/URETER - RIGHT: 2 stones within inferior pole of kidney, largest is 6 mm. KIDNEY/URETER - LEFT: No visible renal or ureteral calcifications. PELVIS: No visible ureteral stones. Stable pelvic calcifications favoring phleboliths. BOWEL: No abnormal dilation or deviation. BONES: No acute abnormality. OTHER: Negative. No abnormal gaseous collections. IMPRESSION: 1. Stable right nephrolithiasis. Electronically authenticated by: AGUSTO BLANC Date: 2023-02-20 15:57 Normal [facility] Office Visit (Cardiology)on 12-06-2022 Follow-up visit Diagnoses/Problems Assessed Anticoagulated (V58.61) (Z79.01) Hyperlipidemia (272.4) (E78.5) Non-ischemic cardiomyopathy (425.4) (I42.8) Paroxysmal atrial fibrillation (427.31) (I48.0) Class 2 obesity with body mass index (BMI) of 36.0 to 36.9 in adult (278.00,V85.36) (E66.9,Z68.36) Never a smoker Orders Class 2 obesity with body mass index (BMI) of 36.0 to 36.9 in adult Healthy Weight Tips; Status:Complete; Done: [id number] Some eating tips that can help you lose weight.; Status:Complete; Done: 74Bmb5465 Hyperlipidemia Renew: Lovastatin 10 MG Oral Tablet; TAKE 1 TABLET DAILY DIRECTED Paroxysmal atrial fibrillation IO EKG Electrocardiogram- 12 Lead; Status:Complete; Done: [id number] SocHx: Never a smoker Tobacco Use Screening; Status:Complete; Done: 70Lxp8768 Patient Instructions Please bring all medicines, vitamins, and herbal supplements with you when you come to the office. Prescriptions will not be filled unless you are compliant with your follow up appointments or have a follow up appointment scheduled as per instruction of your physician. Refills should be requested at the time of your visit. Follow up in January 2024. Chief Complaint MIKY NOLEN is being seen for a 9 month follow-up of. History of Present Illness Patient returns for follow-up of problems as noted. She is done well. She denies any angina CHF or arrhythmia symptomatology. She is tolerating Multaq therapy well in combination with anticoagulant therapy to mitigate risk of stroke. She denies any side effects from the medication or bleeding difficulties We also queried her on signs and/or symptoms of nonischemic cardiomyopathy. This was identified in the past. The potential for developing heart failure and/or malignant life-threatening arrhythmias was discussed and she was educated regarding symptoms of heart failure and ventricular arrhythmias to watch for and encouraged to call if they arise or occur In regards to other risk factors it appears that her blood pressure and lipids are adequately controlled based upon review and consequently we will not further adjust her medical regimen and we suggest continued therapy as is. She also was educated regarding symptoms of bradycardia arrhythmia to watch for and encouraged to seek attention if they occur Lastly we did advocate the merits of diet and weight loss. Surgical History Problems History of Colonoscopy History of Gastric bypass surgery History of Hernia repair History of Hysterectomy History of Knee replacement History of Lithotripsy Past Medical History Problems History of diabetes mellitus (V12.29) (Z86.39) Resolved Date: 16 Aug 2021 History of essential hypertension (V12.59) (Z86.79) Resolved Date: 16 Aug 2021 Current Meds Medication NameInstruction Allopurinol 300 MG Oral TabletTAKE 1 TABLET DAILY. Caltrate 600+D TABSTake 1 tablet daily Centrum Silver 50+Women Oral TabletTAKE 1 TABLET DAILY. Collagen Ultra Oral CapsuleTAKE 1 CAPSULE Daily Levothyroxine Sodium 137 MCG Oral TabletTAKE 1 TABLET DAILY. Lisinopril 2.5 MG Oral TabletTAKE 1 TABLET DAILY. Loratadine 10 MG Oral CapsuleTAKE 1 CAPSULE Daily Lovastatin 10 MG Oral TabletTAKE 1 TABLET DAILY DIRECTED. Multaq 400 MG Oral TabletTAKE 1 TABLET Twice daily [place] 3 CAPSTAKE DIRECTED. Tylenol Arthritis Ext Relief 650 MG TBCRTake 1 tablet twice daily Vitamin D3 25 MCG (1000 UT) Oral TabletTake 1 tablet twice daily Xarelto 20 MG Oral TabletTAKE 1 TABLET BY MOUTH DAILY Allergies Medication Sulfa Drugs Adverse Reaction; Unknown; Recorded By: Fernanda Rolon; 08/16/2021 2:36:52 PM ciprofloxacin Recorded By: Ada Bowser; 08/12/2021 10:24:03 AM Social History Problems Daily caffeine consumption, 2-3 servings a day Never a smoker No alcohol use No illicit drug use Review of Systems Constitutional: not feeling tired. Eyes: no eyesight problems. ENT: no hearing loss and no nosebleeds. Cardiovascular: no intermittent leg claudication and as noted in HPI. Respiratory: no chronic cough and no shortness of breath. Gastrointestinal: no change in bowel habits and no blood in stools. Genitourinary: no urinary frequency. Skin: no skin rashes. Neurological: no seizures and no frequent falls. Psychiatric: no depression and not suicidal. All other systems have been reviewed and are negative for complaint. Vitals Vital Signs Recorded: 17Cnm6631 01:27PM Heart Rate43, Apical Eodsrduv779, RUE, Sitting Dxxjlxbsd11, RUE, Sitting Height5 ft 5 in Byemer091 lb BMI Htfhukygow37.94 kg/m2 BSA Calculated2.07 Tobacco Useb) No PHQ-2 #1. Over the last 2 weeks have you felt down, depressed or hopeless? (If yes, answer PHQ-9 below)No PHQ-2 #2. Over the last 2 weeks have you felt little interest or pleasure in doing things? (If yes, answer PHQ-9 below)No Falls Screening (Age 18+)a) No falls within the last year EKG COMPLETED IN OFFICE Physical Exam Constitutional (more content not included)... Normal [facility] Tobacco Screening.on 023 Adult depression screening assessment No [facility] [address] DO Work Phone: Fall risk assessment a) No falls within the last year [facility] [address] DO Work Phone: Tobacco use status [facility] b) No [facility] Heart-[address]annette 250 DO Work Phone: RAD - MISCon 11-06-2022 RAD - MISC [id number] 0CD:127 Normal [facility] VC INJ SCL EDMOND VAMP STITCHER VEINSon 0 11-03-2022 VC INJ SCL EDMOND VAMP STITCHER VEINS Patient: MIKY NOLEN Exam Date: 11/03/2022 : 1950 Gender:F Ordering : DR WILLARD GAMBOA M.D. Admission #: [id number] Family : Order #: [id number] CLICK HERE TO VIEW EXAM RADIOLOGY REPORT PROCEDURE: VEIN CENTER INJECTION SCLEROSING SOLUTION MULTIPLE VEINS SAME COMPARISON: VC INJ SCL EDMOND VAMP STITCHER VEINS, 10/27/2022. VC INJ SCL EDMOND VAMP STITCHER VEINS, 10/16/2022. INDICATIONS: Pain co-occurrent and due to varicose veins of bilateral legs I83.813 PROCEDURE NOTE: The risks and benefits of the procedure were explained at length to the patient and informed written consent was obtained. Braxton Herrera was present and assisted. The procedure was performed under sterile technique. The patient's leg was wrapped with Coban and postprocedural verbal and written instructions provided. SCLEROSANT: 4 cc, 0.5% polidocanol VEIN(S) INJECTED: 24 veins in the left leg VISUALIZATION: Ultrasound was not used to visualize the sclerosant ANESTHESIA Supercooled air COMPLICATIONS: None CONCLUSION: 1. Technically successful sclerotherapy as described Dictated by: Willard Gamboa MD on 11/03/2022 at 11:59 Approved by: Willard Gamboa MD on 11/03/2022 at 12:37 Normal [facility] XR KUB 1 VIEWon 11-03-2022 XR KUB 1 VIEW EXAMINATION: XR KUB 1 VIEW HISTORY: Kidney stone follow-up COMPARISON: XR KUB 05/05/2022 FINDINGS: KIDNEY/URETER - RIGHT: 2 adjacent 5 mm stones within right kidney. KIDNEY/URETER - LEFT: No visible stones; kidney is obscured by overlying dense bowel content. PELVIS: No appreciable ureteral stones. Stable small pelvic calcifications favoring phleboliths. BOWEL: No abnormal dilation or deviation. BONES: No acute abnormality. OTHER: Negative. No abnormal gaseous collections. IMPRESSION: 1. Right nephrolithiasis; new versus not visible compared to prior study. Electronically authenticated by: AGUSTO BLANC Date: 2022-11-03 12:52 Normal [facility] VC INJ SCL EDMOND VAMP STITCHER VEINSon 1 VC INJ SCL EDMOND VAMP STITCHER VEINS Patient: MIKY NOLEN Exam Date: 10/27/2022 : 1950 Gender:F Ordering : DR WILLARD GAMBOA M.D. Admission #: [id number] Family : Order #: [id number] CLICK HERE TO VIEW EXAM RADIOLOGY REPORT PROCEDURE: VEIN CENTER INJECTION SCLEROSING SOLUTION MULTIPLE VEINS SAME COMPARISON: VC INJ SCL EDMOND VAMP STITCHER VEINS, 10/16/2022. VC INJ SCL EDMOND VAMP STITCHER VEINS, 10/06/2022. INDICATIONS: Pain co-occurrent and due to varicose veins of bilateral legs I83.813 PROCEDURE NOTE: The risks and benefits of the procedure were explained at length to the patient and informed written consent was obtained. Braxton Herrera was present and assisted. The procedure was performed under sterile technique. The patient's leg was wrapped with Coban and postprocedural verbal and written instructions provided. SCLEROSANT: 4 cc, 0.5% polidocanol VEIN(S) INJECTED: 18 veins in the right leg VISUALIZATION: Ultrasound was not used to visualize the sclerosant ANESTHESIA Supercooled air COMPLICATIONS: None CONCLUSION: 1. Technically successful sclerotherapy as described Dictated by: Willard Gamboa MD on 10/27/2022 at 11:45 Approved by: Willard Gamboa MD on 10/27/2022 at 11:46 Normal [facility] VC INJ SCL EDMOND VAMP STITCHER VEINSon 1 12-17-2021 VC INJ SCL EDMOND VAMP STITCHER VEINS Patient: MIKY NOLEN Exam Date: 10/16/2022 : 1950 Gender:F Ordering : DR WILLARD GAMBOA M.D. Admission #: [id number] Family : Order #: [id number] CLICK HERE TO VIEW EXAM RADIOLOGY REPORT PROCEDURE: VEIN CENTER INJECTION SCLEROSING SOLUTION MULTIPLE VEINS SAME COMPARISON: VC INJ SCL EDMOND VAMP STITCHER VEINS, 10/06/2022. INDICATIONS: Pain co-occurrent and due to varicose veins of bilateral legs I83.813 PROCEDURE NOTE: The risks and benefits of the procedure were explained at length to the patient and informed written consent was obtained. Braxton Herrera R.N. was present and assisted. The procedure was performed under sterile technique. The patient's leg was wrapped with Coban and postprocedural verbal and written instructions provided. SCLEROSANT: 2 cc, 0.5% polidocanol VEIN(S) INJECTED: 16 veins in the right leg. VISUALIZATION: Ultrasound was not used to visualize the sclerosant ANESTHESIA Supercooled air COMPLICATIONS: None CONCLUSION: 1. Technically successful sclerotherapy as described Dictated by: Agusto Blanc M.D. on 10/17/2022 at 08:11 Approved by: Agusto Blanc M.D. on 10/17/2022 at 08:12 Normal [facility] CREATININEon 10-10-2022 Creatinine [Mass/Vol] 1.11 mg/dL Critically high 0.55-1.02 [facility] Comment on above: Performed By: #### C AIYANA ####[facility] [address] [address]Dr. Alysha Machuca EGFR-AF GRENADIAN 59 mL/min/1.73m2 Critically low >=60 [facility] Comment on above: Performed By: #### C AIYANA ####[facility] [address] [address]Dr. Traceedarrel Machuca EGFR-NON AF GRENADIAN 48 mL/min/1.73m2 Critically low >=60 [facility] Comment on above: Performed By: #### C AIYANA ####[facility] [address] [address]Dr. Alysha Machuca VC INJ SCL EDMOND VAMP STITCHER VEINSon 1 12-07-2021 VC INJ SCL EDMOND VAMP STITCHER VEINS Patient: MIKY NOLEN Exam Date: 10/06/2022 : 1950 Gender:F Ordering : DR WILLARD GAMBOA M.D. Admission #: [id number] Family : Order #: [id number] CLICK HERE TO VIEW EXAM RADIOLOGY REPORT PROCEDURE: VEIN CENTER INJECTION SCLEROSING SOLUTION MULTIPLE VEINS SAME COMPARISON: None. INDICATIONS: Pain co-occurrent and due to varicose veins of bilateral legs I83.813 PROCEDURE NOTE: The risks and benefits of the procedure were explained at length to the patient and informed written consent was obtained. Braxton Herrera was present and assisted. The procedure was performed under sterile technique. The patient's leg was wrapped with Coban and postprocedural verbal and written instructions provided. SCLEROSANT: 4 cc, 0.5% polidocanol VEIN(S) INJECTED: 18 veins in the right leg VISUALIZATION: Ultrasound was not used to visualize the sclerosant ANESTHESIA Supercooled air COMPLICATIONS: None CONCLUSION: 1. Technically successful sclerotherapy as described Dictated by: Willard Gamboa MD on 10/06/2022 at 13:45 Approved by: Willard Gamboa MD on 10/06/2022 at 13:45 Normal [facility] VC CONSULT FOLLOWUPon 2021 VC CONSULT FOLLOWUP Patient: MIKY NOLEN Exam Date: 09/26/2022 : 1950 Gender:F Ordering : DR WILLARD GAMBOA M.D. Admission #: [id number] Family : Order #: [id number] CLICK HERE TO VIEW EXAM RADIOLOGY REPORT PROCEDURE: VEIN CENTER CONSULTATION FOLLOWUP VEIN CENTER - OFFICE VISIT FOLLOW UP COMPARISON: VC INJ FOAM SCLERO W US MLTI, 09/20/2022. VC CONSULT FOLLOWUP, 09/07/2022. PROGRESS NOTES: The patient reports improvement in bilateral leg symptoms. There has been interval reduction in varicosities. The patient has followed our recommendations to walk 20-30 minutes once or twice per day since the procedure. Physical exam demonstrates decrease in varicosities of the bilateral legs. Persistent spider veins are identified along the legs bilaterally. Review of the ultrasound performed the same day demonstrates occlusive thrombus extending throughout the treated vein, see separate report, consistent with a successful ablation. No thrombus extending into or beyond the saphenofemoral junction. The patient expressed a desire to proceed with treatment of superficial spider veins. The patient was informed that treatment was a process and would require approximately 4-6 procedures/sessions. IMPRESSION: 1. Successful ablation of the treated branch saphenous varicosities. 2. Persistent spider veins and present bilaterally . PLAN: Sclerotherapy of bilateral lower extremity spider veins. Nurse notes, history and physical were reviewed and confirmed, see attached forms. The nurse was present throughout the physical exam and consultation Dictated by: Agusto Blanc M.D. on 09/26/2022 at 15:44 Approved by: Agusto Blanc M.D. on 09/26/2022 at 15:46 Normal [facility] VC EXT VENOUS RT LIMITEDon 1 11-26-2021 VC EXT VENOUS RT LIMITED Patient: MIKY NOLEN Exam Date: 09/26/2022 : 1950 Gender:F Ordering : DR WILLARD GAMBOA M.D. Admission #: [id number] Family : Order #: [id number] CLICK HERE TO VIEW EXAM RADIOLOGY REPORT PROCEDURE: VEIN CENTER EXTREMITY VENOUS RIGHT LIMITED COMPARISON: VC EXT VENOUS RT LIMITED, 08/22/2022. INDICATIONS: Phlebitis of superficial veins of lower extremity I80.01 TECHNIQUE: Lower extremity mcgrath scale and Duplex Doppler evaluation of the deep venous system from the inguinal ligament through the calf veins. FINDINGS: REGION: Right lower extremity. THROMBI: Negative for DVT. Varithena induced thrombus visualized ant/mid thigh, mid/lat calf, and prox/lat calf. COMPRESSIBILITY: Non-compressible segments. FLOW: Areas of no flow. OTHER: CONCLUSION: 1. Successful ablation of treated branch saphenous varicosities within right leg. Dictated by: Agusto Blanc M.D. on 09/26/2022 at 15:43 Approved by: Agusto Blanc M.D. on 09/26/2022 at 15:44 Normal [facility] VC INJ FOAM SCLERO W US MLTI on 09-20-2022 VC INJ FOAM SCLERO W US MLTI Patient: MIKY NOLEN Exam Date: 09/20/2022 : 1950 Gender:F Ordering : DR WILLARD GAMBOA M.D. Admission #: [id number] Family : Order #: [id number] CLICK HERE TO VIEW EXAM RADIOLOGY REPORT PROCEDURE: VEIN CENTER INJECTION FOAM SCLEROSING SOLUTION WITH ULTRASOUND MULTIPLE VEINS COMPARISON: VC INJ FOAM SCLERO W US MLTI, 08/31/2022. Pre-operative Diagnosis: CEAP class C4a venous insufficiency with pain, tenderness, edema and incompetent branch saphenous vein, chronic venous insufficiency right leg secondary to venous incompetence Post-operative Diagnosis: CEAP class C4a venous insufficiency with pain, tenderness, edema and incompetent branch saphenous vein, chronic venous insufficiency right leg secondary to venous incompetence Procedure Performed: 1. Ultrasound-guided microfoam chemical ablation with Varithena(r) 2. Intraoperative ultrasound guidance Physician: Agusto Blanc M.D. Anesthesia: None. Indications for Procedure: 72 year old female. Symptoms including lower extremity pain, swelling, and dilated bulging veins for many years despite conservative medical therapy including medical compression stockings, exercise and analgesics. Prior procedures include: Endovenous laser ablation and microfoam chemical ablation.. Multiple incompetent varicosities of the right leg. Duplex scan showed reflux and enlarged diameters up to 5 mm. The patient has undergone informed consent including management options where the complications of infection, bleeding, pain, and skin injury were discussed. Particular attention was spent discussing thrombus extension and deep vein thrombosis as well as the possibility of pulmonary embolus and treatment with oral or injectable blood thinners. Procedure: The patient walked to the procedure room. All applicable staff donned appropriate apparel. A procedure timeout was performed to confirm correct patient, correct extremity, correct procedure, and correct room set-up including presence of all applicable supplies, devices, and drugs. A duplex ultrasound, performed by myself confirmed the location and incompetence of branch saphenous varicosities and their course was marked on the skin together with the dilated tributaries. The extent of treatment of the veins and the associated varicosities was determined through ultrasound mapping. The skin was prepped and then punctured with a butterfly needle and advanced under ultrasound guidance. The Varithena(r) canister was activated and the canister was primed and purged as required in the instructions for use. Varithena(r) was drawn into a sterile syringe. Varithena(r) was slowly administered at 0.5-1.0 cc/second with close observation by ultrasound of its course in the vessels. Total volume utilized was: 15 mL (6 mL within the 4 mm varicosity of the right mid lateral lower leg; 4 Argenis within a 4 mm varicosity of the lateral proximal lower leg; 5 mL within a 5 mm varicosity of the anterior mid thigh).. Following administration of Varithena(r), the leg was elevated and the patient was asked to repeatedly dorsiflex the ankle to limit flow of Varithena(r) into perforating veins. Once appropriate spasm had been confirmed in the treated veins, the vascular catheter was removed from the leg and light pressure was applied over the puncture site for hemostasis The common femoral and deep superficial veins were then evaluated for flow and compressibility prior to dressing placement. The lower extremity was kept elevated at 45 degrees above the horizontal and cording material was applied over the saphenous segments and tributaries to allow for eccentric compression over the target vessels including the targeted saphenous vein(s). A multilayer dressing was applied consisting of foam pads, coban and thigh-high 20-30 mm Hg compression elastic support hose were placed on the patient. The leg was lowered only after compression had been applied and the patient was immediately ambulatory. The patient ambulated 10 minutes under supervision and was without apparent concerns at time of release Post-care instructions include advising patient to keep post-treatment bandages in place and dry for 48 hours, avoid extended periods of inactivity, avoid heavy exercise for one week, wear compression stockings on the treated leg continuously for two weeks, to walk daily for 10 minutes over the next month. The patient was instructed to take an anti-inflammatory medicine as needed and to follow up for color duplex scan of the Saphenous veins, the treated branch saphenous varicosities, the adjacent deep veins, and additional treatment within 7 days. PERSONNEL: Braxton Herrera R.N. Dictated by: Agusto Blanc M.D. on 09/20/2022 at 15:38 Approved by: Agusto Blanc M.D. on 09/20/2022 at 15:43 Normal [facility] VC CONSULT FOLLOWUPon 2021 VC CONSULT FOLLOWUP Patient: MIKY NOLEN Exam Date: 09/07/2022 : 1950 Gender:F Ordering : DR WILLARD GAMBOA M.D. Admission #: [id number] Family : Order #: [id number] CLICK HERE TO VIEW EXAM RADIOLOGY REPORT PROCEDURE: VEIN CENTER CONSULTATION FOLLOWUP VEIN CENTER - OFFICE VISIT FOLLOW UP COMPARISON: VC CONSULT FOLLOWUP, 08/22/2022. VC CONSULT FOLLOWUP, 08/07/2022. PROGRESS NOTES: The patient reports no significant pain of the left leg following micro foam chemical ablation. The patient did not require oral analgesics. The patient has worn her compression stocking. The patient has partially followed our recommendations to walk 20-30 minutes once or twice per day since the procedure. The patient reports continued improvement in her initial presenting symptoms. Physical exam demonstrates bilateral scattered thrombosed varicose veins. Reticular and spider veins are noted throughout most significant in ankles. No areas of erythema or warmth to suggest cellulitis or thrombophlebitis. No active ulceration. Review of the ultrasound performed the same day demonstrates occlusive thrombus extending throughout the treated vein, see separate report, consistent with a successful ablation. No thrombus extending into or beyond the saphenofemoral junction. The patient expressed a desire to proceed with treatment of incompetent right leg varicose veins with micro foam chemical ablation. IMPRESSION: 1. Successful ablation of left leg varicose veins 2. Persistent incompetent right leg varicose vein PLAN: Micro foam chemical ablation right leg Nurse notes, history and physical were reviewed and confirmed, see attached forms. The nurse was present throughout the physical exam and consultation Dictated by: Willard Gamboa MD on 09/07/2022 at 13:01 Approved by: Willard Gamboa MD on 09/07/2022 at 13:04 Normal [facility] VC EXT VENOUS LT LIMITEDon 1 11-07-2021 VC EXT VENOUS LT LIMITED Patient: MIKY NOLEN Exam Date: 09/07/2022 : 1950 Gender:F Ordering : DR WILLARD GAMBOA M.D. Admission #: [id number] Family : Order #: [id number] CLICK HERE TO VIEW EXAM RADIOLOGY REPORT PROCEDURE: VEIN CENTER EXTREMITY VENOUS LEFT LIMITED COMPARISON: VC EXT VENOUS LT LIMITED, 08/07/2022. VC EXT VENOUS LT LIMITED, 06/30/2022. INDICATIONS: Phlebitis of superficial veins of lower extremity I80.02 TECHNIQUE: Lower extremity mcgrath scale and Duplex Doppler evaluation of the deep venous system from the inguinal ligament through the calf veins. FINDINGS: REGION: Left lower extremity. THROMBI: Negative for DVT. Varithena induced thrombus visualized at dist/med thigh, dist/lat thigh, and mid/lat calf. COMPRESSIBILITY: Non-compressible segments. FLOW: Areas of no flow. *Exam performed in accordance with [facility] practice guidelines- Peripheral venous ultrasound, January 22, 2010. CONCLUSION: Post ablation occlusion of treated left leg varicose veins Dictated by: Willard Gamboa MD on 09/07/2022 at 11:58 Approved by: Willard Gamboa MD on 09/07/2022 at 11:59 Normal [facility] CBC AUTO DIFFon 09-01-2022 BASO # 0.0 103/ul Normal 0.0-0.1 [facility] Comment on above: Performed By: #### C BC #### [facility] [address] [place] [address] Dr. Alysha Machuca Basophils/100 WBC (Bld) 0.6 % Normal 0.2-2.0 [facility] Comment on above: Performed By: #### C BC #### [facility] [address] [place] [address] Dr. Alysha Machuca EO # 0.3 103/ul Normal 0.0-0.7 [facility] Comment on above: Performed By: #### C BC #### [facility] [address] [place] [address] Dr. Alysha Machuca Eosinophils/100 WBC (Bld) 4.3 % Normal 0.9-7.0 [facility] Comment on above: Performed By: #### C BC #### [facility] [address] [place] [address] Dr. Alysha Machuca Erythrocyte distribution width (RBC) [Ratio] 14.6 % Normal 11.0-15.0 [facility] Comment on above: Performed By: #### C BC #### [facility] [address] [place] [address] Dr. Alysha Machuca Hematocrit (Bld) [Volume fraction] 39.7 % Normal 36.0-48.0 [facility] Comment on above: Performed By: #### C BC #### [facility] [address] [place] [address] Dr. Alysha Machuca Hemoglobin (Bld) [Mass/Vol] 13.1 g/dL Normal 12.0-16.0 [facility] Comment on above: Performed By: #### C BC #### [facility] [address] [place] [address] Dr. Alysha Machuca IG # 0.01 10e3/ul Normal 0.00-0.03 [facility] Comment on above: Performed By: #### C BC #### [facility] [address] [place] [address] Dr. Alysha Machuca IG % 0.2 % Normal 0.0-0.5 [facility] Comment on above: Performed By: #### C BC #### [facility] [address] [place] [address] Dr. Alysha Machuca LYMPH # 1.9 103/ul Normal 1.2-3.8 [facility] Comment on above: Performed By: #### C BC #### [facility] [address] [place] [address] Dr. Alysha Machuca Lymphocytes/100 WBC (Bld) 29.5 % Normal 20.5-60.0 [facility] Comment on above: Performed By: #### C BC #### [facility] [address] [place] [address] Dr. Alysha Machuca MANUAL DIFF REQ NO Normal [facility] Comment on above: Performed By: #### C BC #### [facility] [address] [place] [address] Dr. Alysha Machuca MCH (RBC) [Entitic mass] 29.8 pg Normal 26.7-34.0 [facility] Comment on above: Performed By: #### C BC #### [facility] [address] [place] [address] Dr. Alysha Machuca MCHC (RBC) [Mass/Vol] 33.0 g/dL Normal 29.9-35.2 [facility] Comment on above: Performed By: #### C BC #### [facility] [address] [place] [address] Dr. Alysha Machuca MCV (RBC) [Entitic vol] 90.2 fL Normal 81.0-99.0 [facility] Comment on above: Performed By: #### C BC #### [facility] [address] [place] [address] Dr. Alysha Machuca MONO # 0.5 103/ul Normal 0.3-0.8 [facility] Comment on above: Performed By: #### C BC #### [facility] [address] [place] [address] Dr. Alysha Machuca Monocytes/100 WBC (Bld) 7.0 % Normal 1.7-12.0 [facility] Comment on above: Performed By: #### C BC #### [facility] [address] [address] [address] Alysha Machuca NEUT # 3.8 103/ul Normal 1.4-6.5 [facility] Comment on above: Performed By: #### C BC #### [facility] [address] [address] [address] Alysha Machuca Neutrophils/100 WBC (Bld) 58.4 % Normal 43.0-75.0 [facility] Comment on above: Performed By: #### C BC #### [facility] [address] [place] [address] Dr. Alysha Machuca Platelet mean volume (Bld) [Entitic vol] 9.5 fL Normal 9.5-13.5 [facility] Comment on above: Performed By: #### C BC #### [facility] [address] [place] [address] Dr. Alysha Machuca PLT 235 103/ul Normal 150-450 [facility] Comment on above: Performed By: #### C BC #### [facility] [address] [place] [address] Dr. Alysha Machuca RBC 4.40 106/ul Normal 4.20-5.40 [facility] Comment on above: Performed By: #### C BC #### [facility] [address] [place] [address] Dr. Alysha Machuca WBC 6.6 103/ul Normal 4.0-11.0 [facility] Comment on above: Performed By: #### C BC #### [facility] [address] [place] [address] Dr. Alysha Machuca PROF CHEM 8 (BAS METB)on Anion gap [Moles/Vol] 7.7 mmol/L Normal [facility] Comment on above: Performed By: #### B MP ####[facility] [address] [address]Dr. Alysha Machuca Calcium [Mass/Vol] 9.8 mg/dL Normal 8.5-10.1 [facility] Comment on above: Performed By: #### B MP ####[facility] [address] [place], [place] [address]Dr. Alysha Machuca Chloride [Moles/Vol] 104 mmol/L Normal 98-107 [facility] Comment on above: Performed By: #### B MP ####[facility] [address] [place], [place] [address]Dr. Alysha Machuca CO2 [Moles/Vol] 29.2 mmol/L Normal 21.0-32.0 [facility] Comment on above: Performed By: #### B MP ####[facility] [address] [place], [place] [address]Dr. Alysha Sven Creatinine [Mass/Vol] 1.05 mg/dL Critically high 0.55-1.02 [facility] Comment on above: Performed By: #### B MP ####[facility] [address] [place], [place] [address]Dr. Alysha Sven EGFR-AF GRENADIAN >60 Normal >=60 [facility] Comment on above: Performed By: #### B MP ####[facility] [address] [place], [place] [address]Dr. Alysha Sven EGFR-NON AF GRENADIAN 52 mL/min/1.73m2 Critically low >=60 [facility] Comment on above: Performed By: #### B MP ####[facility] [address] [place], [place] [address]Dr. Alysha Sven Glucose [Mass/Vol] 107 mg/dL Critically high 74-106 [facility] Comment on above: Performed By: #### B MP ####[facility] [address] [place], [place] [address]Dr. Traceedarrel Sven Potassium [Moles/Vol] 3.9 mmol/L Normal 3.5-5.1 [facility] Comment on above: Performed By: #### B MP ####[facility] [address] [place], [place] [address]Dr. Alysha Sven Sodium [Moles/Vol] 137 mmol/L Normal 136-145 [facility] Comment on above: Performed By: #### B MP ####[facility] [address] [id number]. Alysha Machuca Urea nitrogen [Mass/Vol] 16.0 mg/dL Normal 7.0-18.0 [facility] Comment on above: Performed By: #### B MP ####[facility] [address] [id number]. Alysha Machuca Urea nitrogen/Creatinin e [Mass ratio] 15.2 mg/mg Normal [facility] Comment on above: Performed By: #### B MP ####[facility] [address] [id number]. Alysha Machuca VC INJ FOAM SCLERO W US MLTI on 08-31-2022 VC INJ FOAM SCLERO W US MLTI Patient: MIKY NOLEN Exam Date: 08/31/2022 : 1950 Gender:F Ordering : DR WILLARD GAMBOA M.D. Admission #: [id number] Family : Order #: [id number] CLICK HERE TO VIEW EXAM RADIOLOGY REPORT PROCEDURE: VEIN CENTER INJECTION FOAM SCLEROSING SOLUTION WITH ULTRASOUND MULTIPLE VEINS COMPARISON: VC INJ FOAM SCLERO W US MLTI, 08/17/2022. VC INJ FOAM SCLERO W US MLTI, 08/01/2022. Pre-operative Diagnosis: CEAP class C4a venous insufficiency with pain, tenderness, edema and incompetent left great saphenous vein, branch saphenous tributaries and varicose veins saphenous vein, chronic venous insufficiency left leg secondary to venous incompetence Post-operative Diagnosis: CEAP class C4a venous insufficiency with pain, tenderness, edema and incompetent left great saphenous vein, branch saphenous tributaries and varicose veins saphenous vein, chronic venous insufficiency left leg secondary to venous incompetence Procedure Performed: 1. Ultrasound-guided microfoam chemical ablation with Varithena(r) 2. Intraoperative ultrasound guidance Physician: Willard Gamboa M.D. Anesthesia: None Indications for Procedure: 72-year-old female who presents with a long history of lower extremity pain swelling and hemosiderin staining. The patient failed conservative medical therapy including medical compression stockings, exercise and analgesics. Prior procedures include intravenous laser ablation and micro foam chemical ablation Multiple incompetent varicosities of the left leg. Duplex scan showed reflux and enlarged diameters up to 5 mm. The patient underwent informed consent including management options where the complications of infection, bleeding, pain, and skin injury were discussed. Particular attention was spent discussing thrombus extension and deep vein thrombosis as well as the possibility of pulmonary embolus and treatment with oral or injectable blood thinners. Procedure: The patient walked to the procedure room. All applicable staff donned appropriate apparel. A procedure timeout was performed to confirm correct patient, correct extremity, correct procedure, and correct room set-up including presence of all applicable supplies, devices, and drugs. A duplex ultrasound, performed by myself confirmed the location and incompetence of left leg varicose veins and their course marked on the skin together with the dilated tributaries. The extent of treatment of the vein and the associated varicosities was determined through ultrasound mapping. The patient was placed on the operating room table. The limb was prepped. The skin was punctured with a butterfly needle through the skin with the venous access needle and advanced under ultrasound guidance. The target limb was positioned at 45 degrees of elevation in relation to the torso utilizing a foam pad. The Varithena(r) canister was previously activated and the canister was primed and purged as required in the instructions for use. The following injections were made: 4 mL aliquot of Varithena(r) was drawn into a sterile syringe. Injection into a 4 mm varicose vein left medial distal thigh. 2 mL aliquot of Varithena(r) was drawn into a sterile syringe. Injection into 3 mm varicose vein left mid lateral lower leg 6 mL aliquot of Varithena(r) was drawn into a sterile syringe. Injection into a 5 mm varicose vein lateral distal thigh with antegrade and retrograde flow the level of the upper thigh and mid calf Varithena(r) was slowly administered at 0.5-1.0 cc/second with close observation by ultrasound of its course in the injected veins. A total volume of 12 mL of Varithena(r) was used. During administration of Varithena(r), the patient was asked to dorsiflex the ankle to limit flow of Varithena(r) into perforating veins. Once appropriate spasm had been confirmed in the treated veins, the vascular catheter was removed from the leg and light pressure was applied over the puncture site for hemostasis The common femoral and deep superficial veins were then evaluated for flow and compressibility prior to dressing placement. The lower extremity was kept elevated at 45 degrees above the horizontal and cording material was applied over the saphenous segments and tributaries to allow for eccentric compression over the target vessels including the targeted saphenous vein(s). A multilayer dressing was applied consisting of foam pads, coban and thigh-high 20-30 mm Hg compression elastic support hose were placed on the patient. The leg was lowered only after compression had been applied and the patient was immediately ambulatory. The patient ambulated 10 minutes under supervision and was without apparent concerns at time of release Post-care instructions include advising patient to keep post-treatment bandages in place and dry for 48 hours, avoid extended periods of inactivity, avoid heavy exercise for one week, wear compressi (more content not included)... Normal [facility] VC CONSULT FOLLOWUPon 2021 VC CONSULT FOLLOWUP Patient: MIKY NOLEN Exam Date: 08/22/2022 : 1950 Gender:F Ordering : DR WILLARD GAMBOA M.D. Admission #: [id number] Family : Order #: [id number] CLICK HERE TO VIEW EXAM RADIOLOGY REPORT PROCEDURE: VEIN CENTER CONSULTATION FOLLOWUP VEIN CENTER - OFFICE VISIT FOLLOW UP COMPARISON: VC CONSULT FOLLOWUP, 08/07/2022. VC CONSULT FOLLOWUP, 07/17/2022. PROGRESS NOTES: The patient reports some mild discomfort of the right leg following micro foam chemical ablation. The patient did not require oral analgesics. The patient did wear her compression stockings. The patient has followed our recommendations to walk 20-30 minutes once or twice per day since the procedure to the best of her ability. The patient reports mild to moderate improvement in her initial presenting symptoms. Physical exam demonstrates a 6 cm area of bruising along the medial right thigh likely related to the injection. Thrombosed varicose veins can be palpated throughout the leg. No areas of erythema or warmth to suggest cellulitis or thrombophlebitis. No active ulceration Review of the ultrasound performed the same day demonstrates occlusive thrombus extending throughout the treated vein, see separate report, consistent with a successful ablation. No thrombus extending into or beyond the saphenofemoral junction. The patient expressed a desire to proceed with treatment of incompetent left leg varicose veins with micro foam chemical ablation. IMPRESSION: 1. Successful ablation of right leg incompetent varicose veins 2. Persistent bilateral incompetent varicose veins PLAN: Micro foam chemical ablation of the left leg Nurse notes, history and physical were reviewed and confirmed, see attached forms. The nurse was present throughout the physical exam and consultation Dictated by: Willard Gamboa MD on 08/22/2022 at 10:39 Approved by: Willard Gamboa MD on 08/22/2022 at 10:45 Normal [facility] VC EXT VENOUS RT LIMITEDon 1 VC EXT VENOUS RT LIMITED Patient: MIKY NOLEN Exam Date: 08/22/2022 : 1950 Gender:F Ordering : DR WILLARD GAMBOA M.D. Admission #: [id number] Family : Order #: [id number] CLICK HERE TO VIEW EXAM RADIOLOGY REPORT PROCEDURE: VEIN CENTER EXTREMITY VENOUS RIGHT LIMITED COMPARISON: VC EXT VENOUS RT LIMITED, 07/17/2022. VC EXT VENOUS RT LIMITED, 06/19/2022. INDICATIONS: Phlebitis of superficial veins of lower extremity I80.01 TECHNIQUE: Lower extremity mcgrath scale and Duplex Doppler evaluation of the deep venous system from the inguinal ligament through the calf veins. FINDINGS: REGION: Right lower extremity. THROMBI: Negative for DVT. Varithena induce thrombus visualized at mid/med calf and mid/med thigh. COMPRESSIBILITY: Noncompressibility corresponding to thrombus FLOW: Absent flow corresponding to thrombus OTHER: Patent varicose vein mid/med thigh 7.0mm with 1.1s reflux. Patent varicose vein dist/med thigh 5.7mm with 1.0s reflux. *Exam performed in accordance with [facility] practice guidelines- Peripheral venous ultrasound, January 22, 2010. CONCLUSION: Post ablation occlusion of right leg incompetent treated varicose veins with residual patent incompetent varicose veins measuring up to 7 mm Dictated by: Willard Gamboa MD on 08/22/2022 at 10:21 Approved by: Willard Gamboa MD on 08/22/2022 at 10:21 Normal [facility] VC INJ FOAM SCLERO W US MLTI on 08-17-2022 VC INJ FOAM SCLERO W US MLTI Patient: MIKY NOLEN Exam Date: 08/17/2022 : 1950 Gender:F Ordering : DR WILLARD GAMBOA M.D. Admission #: [id number] Family : Order #: [id number] CLICK HERE TO VIEW EXAM RADIOLOGY REPORT PROCEDURE: VEIN CENTER INJECTION FOAM SCLEROSING SOLUTION WITH ULTRASOUND MULTIPLE VEINS COMPARISON: VC INJ FOAM SCLERO W US MLTI, 08/01/2022. VC INJ FOAM SCLERO W US MLTI, 07/12/2022. Pre-operative Diagnosis: CEAP class C4a venous insufficiency with pain, tenderness, edema and incompetent right great saphenous vein and tributaries/varicose veins, chronic venous insufficiency right leg secondary to venous incompetence Post-operative Diagnosis: CEAP class C4a venous insufficiency with pain, tenderness, edema and incompetent right great saphenous vein and tributaries/varicose veins, chronic venous insufficiency right leg secondary to venous incompetence Procedure Performed: 1. Ultrasound-guided microfoam chemical ablation with Varithena(r) 2. Intraoperative ultrasound guidance Physician: Willard Gamboa M.D. Anesthesia: None Indications for Procedure: 72-year-old female presents with a long history of lower extremity pain swelling and varicose veins. The patient failed conservative medical therapy including medical compression stockings, exercise and analgesics. Prior procedures include intravenous laser ablation and micro foam chemical ablation. Multiple incompetent varicosities of the right leg. Duplex scan showed reflux and enlarged diameters up to 7 mm. The patient underwent informed consent including management options where the complications of infection, bleeding, pain, and skin injury were discussed. Particular attention was spent discussing thrombus extension and deep vein thrombosis as well as the possibility of pulmonary embolus and treatment with oral or injectable blood thinners. Procedure: The patient walked to the procedure room. All applicable staff donned appropriate apparel. A procedure timeout was performed to confirm correct patient, correct extremity, correct procedure, and correct room set-up including presence of all applicable supplies, devices, and drugs. A duplex ultrasound, performed by myself confirmed the location and incompetence of right leg varicose veins and their course marked on the skin together with the dilated tributaries. The extent of treatment of the vein and the associated varicosities was determined through ultrasound mapping. The patient was placed on the operating room table. The limb was prepped. The skin was punctured with a butterfly needle through the skin with the venous access needle and advanced under ultrasound guidance. The target limb was positioned at 45 degrees of elevation in relation to the torso utilizing a foam pad. The Varithena(r) canister was previously activated and the canister was primed and purged as required in the instructions for use. The following injections were made: 5 mL aliquot of Varithena(r) was drawn into a sterile syringe. Injection into a 4 mm varicose vein medial lower right leg 5 mL aliquot of Varithena(r) was drawn into a sterile syringe. Injection into a 7 mm varicose vein medial distal right thigh 5 mL aliquot of Varithena(r) was drawn into a sterile syringe. Injection into a 7 mm varicose vein medial mid right thigh Varithena(r) was slowly administered at 0.5-1.0 cc/second with close observation by ultrasound of its course in the injected veins.. A total volume of 15 mL of Varithena(r) was used. During administration of Varithena(r), the patient was asked to dorsiflex the ankle to limit flow of Varithena(r) into perforating veins. Once appropriate spasm had been confirmed in the treated veins, the vascular catheter was removed from the leg and light pressure was applied over the puncture site for hemostasis The common femoral and deep superficial veins were then evaluated for flow and compressibility prior to dressing placement. The lower extremity was kept elevated at 45 degrees above the horizontal and cording material was applied over the saphenous segments and tributaries to allow for eccentric compression over the target vessels including the targeted saphenous vein(s). A multilayer dressing was applied consisting of foam pads, coban and thigh-high 20-30 mm Hg compression elastic support hose were placed on the patient. The leg was lowered only after compression had been applied and the patient was immediately ambulatory. The patient ambulated 10 minutes under supervision and was without apparent concerns at time of release Post-care instructions include advising patient to keep post-treatment bandages in place and dry for 48 hours, avoid extended periods of inactivity, avoid heavy exercise for one week, wear compression stockings on the treated leg continuously for two weeks, to walk daily for 10 minutes over the next month. The patient was instructed to take (more content not included)... Normal [facility] VC CONSULT FOLLOWUPon 2021 VC CONSULT FOLLOWUP Patient: MIKY NOLEN Exam Date: 08/07/2022 : 1950 Gender:F Ordering : DR WILLARD GAMBOA M.D. Admission #: [id number] Family : Order #: [id number] CLICK HERE TO VIEW EXAM RADIOLOGY REPORT PROCEDURE: VEIN CENTER CONSULTATION FOLLOWUP VEIN CENTER - OFFICE VISIT FOLLOW UP COMPARISON: VC EXT VENOUS LT LIMITED, 08/07/2022. VC CONSULT FOLLOWUP, 07/17/2022. VC CONSULT FOLLOWUP, 06/30/2022. PROGRESS NOTES: The patient reports no significant discomfort following micro foam chemical ablation of the left leg. The patient did not require oral analgesics. The patient did wear her compression stocking. The patient has followed our recommendations to walk 20-30 minutes once or twice per day since the procedure. Physical exam demonstrates scattered thrombosed varicose veins. No deep vein thrombus. Residual incompetent varicose veins measuring up to 5.1 mm Review of the ultrasound performed the same day demonstrates occlusive thrombus extending throughout the treated vein, see separate report, consistent with a successful ablation. No thrombus extending into or beyond the saphenofemoral junction. The patient expressed a desire to proceed with treatment of residual incompetent varicose veins with micro foam chemical ablation. IMPRESSION: 1. Successful ablation of left leg incompetent varicose veins 2. Persistent bilateral leg incompetent varicose vein PLAN: Micro foam chemical ablation left leg Nurse notes, history and physical were reviewed and confirmed, see attached forms. The nurse was present throughout the physical exam and consultation Dictated by: Willard Gamboa MD on 08/07/2022 at 13:03 Approved by: Willard Gamboa MD on 08/07/2022 at 13:31 Normal [facility] VC EXT VENOUS LT LIMITEDon 1 VC EXT VENOUS LT LIMITED Patient: MIKY NOLEN Exam Date: 08/07/2022 : 1950 Gender:F Ordering : DR WILLARD GAMBOA M.D. Admission #: [id number] Family : Order #: [id number] CLICK HERE TO VIEW EXAM RADIOLOGY REPORT PROCEDURE: VEIN CENTER EXTREMITY VENOUS LEFT LIMITED COMPARISON: VC EXT VENOUS LT LIMITED, 06/30/2022. VC EXT VENOUS LT LIMITED, 05/31/2022. INDICATIONS: Phlebitis of superficial veins of lower extremity I80.02 TECHNIQUE: Lower extremity mcgrath scale and Duplex Doppler evaluation of the deep venous system from the inguinal ligament through the calf veins. FINDINGS: REGION: Left lower extremity. THROMBI: Negative for DVT. Varithena induced thrombus visualized at medial ankle, ant/distal calf, and mid/lat calf COMPRESSIBILITY: Noncompressibility corresponding to thrombus FLOW: Absent flow corresponding to thrombus OTHER: Patent varicose vein mid/medial thigh 5.1mm with 1.4s reflux that travels to distal and prox thigh. *Exam performed in accordance with [facility] practice guidelines- Peripheral venous ultrasound, January 22, 2010. CONCLUSION: Post ablation occlusion of left leg varicose veins with residual incompetent varicose veins measuring up to 5.1 mm in diameter Dictated by: Willard Gamboa MD on 08/07/2022 at 12:01 Approved by: Willard Gamboa MD on 08/07/2022 at 12:01 [facility] VC INJ FOAM SCLERO W US MLTI on 08-01-2022 VC INJ FOAM SCLERO W US MLTI Patient: MIKY NOLEN Exam Date: 08/01/2022 : 1950 Gender:F Ordering : DR WILLARD GAMBOA M.D. Admission #: [id number] Family : Order #: [id number] CLICK HERE TO VIEW EXAM RADIOLOGY REPORT PROCEDURE: VEIN CENTER INJECTION FOAM SCLEROSING SOLUTION WITH ULTRASOUND MULTIPLE VEINS COMPARISON: VC INJ FOAM SCLERO W US MLTI, 07/12/2022. VC INJ FOAM SCLERO W US MLTI, 06/26/2022. Pre-operative Diagnosis: CEAP class C4a venous insufficiency with pain, tenderness, edema and incompetent right great saphenous vein and branch saphenous tributary/varicose, chronic venous insufficiency right leg secondary to venous incompetence Post-operative Diagnosis: CEAP class C4a venous insufficiency with pain, tenderness, edema and incompetent right great saphenous vein and branch saphenous tributary/varicose, chronic venous insufficiency right leg secondary to venous incompetence Procedure Performed: 1. Ultrasound-guided microfoam chemical ablation with Varithena(r) 2. Intraoperative ultrasound guidance Physician: Willard Gamboa M.D. Anesthesia: None Indications for Procedure: 72-year-old female who presents with a long history of lower extremity pain swelling and varicose veins. Patient failed conservative medical therapy including medical compression stockings, exercise and analgesics. Prior procedures include intravenous laser ablation micro foam chemical ablation Multiple incompetent varicosities of the right leg. Duplex scan showed reflux and enlarged diameters up to 5 mm. The patient underwent informed consent including management options where the complications of infection, bleeding, pain, and skin injury were discussed. Particular attention was spent discussing thrombus extension and deep vein thrombosis as well as the possibility of pulmonary embolus and treatment with oral or injectable blood thinners. Procedure: The patient walked to the procedure room. All applicable staff donned appropriate apparel. A procedure timeout was performed to confirm correct patient, correct extremity, correct procedure, and correct room set-up including presence of all applicable supplies, devices, and drugs. A duplex ultrasound, performed by myself confirmed the location and incompetence right leg incompetent varicose veins and their course marked on the skin together with the dilated tributaries. The extent of treatment of the vein and the associated varicosities was determined through ultrasound mapping. The patient was placed on the operating room table. The limb was prepped. The skin was punctured with a butterfly needle through the skin with the venous access needle and advanced under ultrasound guidance. The target limb was positioned at 45 degrees of elevation in relation to the torso utilizing a foam pad. The Varithena(r) canister was previous activated and the canister was primed and purged as required in the instructions for use. Following injections were made: 6 mL aliquot of Varithena(r) was drawn into a sterile syringe. Injection into a 4 mm varicose vein anterior distal lower leg, this was a tributary of the great saphenous vein inserting at level of the knee with a 2nd area inserting at the level the upper thigh 2 mL aliquot of Varithena(r) was drawn into a sterile syringe. Injection into a 3 mm varicose vein medial ankle. 6 mL aliquot of Varithena(r) was drawn into a sterile syringe. Injection into a 4 mm varicose vein mid left lateral lower leg. Varithena(r) was slowly administered at 0.5-1.0 cc/second with close observation by ultrasound of its course in the injected veins. A total volume of 14 mL of Varithena(r) was used. During administration of Varithena(r), the patient was asked to dorsiflex the ankle to limit flow of Varithena(r) into perforating veins. Once appropriate spasm had been confirmed in the treated veins, the vascular catheter was removed from the leg and light pressure was applied over the puncture site for hemostasis The common femoral and deep superficial veins were then evaluated for flow and compressibility prior to dressing placement. The lower extremity was kept elevated at 45 degrees above the horizontal and cording material was applied over the saphenous segments and tributaries to allow for eccentric compression over the target vessels including the targeted saphenous vein(s). A multilayer dressing was applied consisting of foam pads, coban and thigh-high 20-30 mm Hg compression elastic support hose were placed on the patient. The leg was lowered only after compression had been applied and the patient was immediately ambulatory. The patient ambulated 10 minutes under supervision and was without apparent concerns at time of release Post-care instructions include advising patient to keep post-treatment bandages in place and dry for 48 hours, avoid extended periods of inactivity, avoid heavy exercise for one week, wear compr (more content not included)... Normal [facility] VC CONSULT FOLLOWUPon 2021 VC CONSULT FOLLOWUP Patient: MIKY NOLEN Exam Date: 07/17/2022 : 1950 Gender:F Ordering : DR WILLARD GAMBOA M.D. Admission #: [id number] Family : Order #: [id number] CLICK HERE TO VIEW EXAM RADIOLOGY REPORT PROCEDURE: VEIN CENTER CONSULTATION FOLLOWUP VEIN CENTER - OFFICE VISIT FOLLOW UP COMPARISON: VC CONSULT FOLLOWUP, 06/30/2022. PROGRESS NOTES: The patient reports improvement in leg symptoms. Patient is concerned about hemosiderin staining of distal lower extremities. There has been interval reduction in varicosities. The patient has followed our recommendations to walk 20-30 minutes once or twice per day since the procedure. Physical exam demonstrates decrease in varicosities of the right leg. Persistent varicosities are identified along the legs bilaterally. Review of the ultrasound performed the same day demonstrates occlusive thrombus extending throughout the treated vein, see separate report, consistent with a successful ablation. No thrombus extending into or beyond the saphenofemoral junction. The patient expressed a desire to proceed with treatment of remaining branch saphenous varicosities. The patient was informed that treatment was a process and would require approximately 2 or 3 more procedures/sessions between the right and left legs. IMPRESSION: 1. Successful ablation of incompetent branch saphenous veins 2. Persistent varicose veins and lower extremity symptoms PLAN: Microfoam chemical ablation of left leg incompetent branch saphenous varicosities. Nurse notes, history and physical were reviewed and confirmed, see attached forms. The nurse was present throughout the physical exam and consultation Dictated by: Agusto Blanc M.D. on 07/17/2022 at 12:15 Approved by: Agusto Blanc M.D. on 07/17/2022 at 12:18 [facility] VC EXT VENOUS RT LIMITEDon 0 07-17-2022 VC EXT VENOUS RT LIMITED Patient: MIKY NOLEN Exam Date: 07/17/2022 : 1950 Gender:F Ordering : DR WILLARD GAMBOA M.D. Admission #: [id number] Family : Order #: [id number] CLICK HERE TO VIEW EXAM RADIOLOGY REPORT PROCEDURE: VEIN CENTER EXTREMITY VENOUS RIGHT LIMITED COMPARISON: VC EXT VENOUS RT LIMITED, 06/19/2022. INDICATIONS: Phlebitis of superficial veins of lower extremity I80.01 TECHNIQUE: Lower extremity mcgrath scale and Duplex Doppler evaluation of the deep venous system from the inguinal ligament through the calf veins. FINDINGS: REGION: Right lower extremity. THROMBI: Negative for DVT. Varithena induced thrombus visualized in all areas treated including dist/med calf, prox/med calf, and mid/med thigh. COMPRESSIBILITY: Non-compressible segments. FLOW: Areas of no flow. OTHER: Patent varicose vein mid med thigh 6.7mm with 0.8s reflux. Patent varicose vein mid/med thigh 6.0mm with 1.0s reflux. CONCLUSION: 1. Successful post ablation occlusion of treated branch saphenous varicosities. Dictated by: Agusto Blanc M.D. on 07/17/2022 at 12:03 Approved by: Agusto Blanc M.D. on 07/17/2022 at 12:14 Normal [facility] VC INJ FOAM SCLERO W US MLTI on 07-12-2022 VC INJ FOAM SCLERO W US MLTI Patient: MIKY NOLEN Exam Date: 07/12/2022 : 1950 Gender:F Ordering : DR WILLARD GAMBOA M.D. Admission #: [id number] Family : Order #: [id number] CLICK HERE TO VIEW EXAM RADIOLOGY REPORT PROCEDURE: VEIN CENTER INJECTION FOAM SCLEROSING SOLUTION WITH ULTRASOUND MULTIPLE VEINS COMPARISON: VC INJ FOAM SCLERO W US MLTI, 06/26/2022. VC INJ FOAM SCLERO W US MLTI, 06/13/2022. Pre-operative Diagnosis: CEAP class C4a venous insufficiency with pain, tenderness, edema and incompetent right saphenous vein and branch saphenous tributary, chronic venous insufficiency right leg secondary to venous incompetence Post-operative Diagnosis: CEAP class C4a venous insufficiency with pain, tenderness, edema and incompetent right saphenous vein and branch saphenous tributary, chronic venous insufficiency right leg secondary to venous incompetence Procedure Performed: 1. Ultrasound-guided microfoam chemical ablation with Varithena(r) 2. Intraoperative ultrasound guidance Physician: Willard Gamboa M.D. Anesthesia: None Indications for Procedure: 72-year-old female who presents with a long history of lower extremity pain swelling and varicose veins. The patient failed conservative medical therapy including medical compression stockings, exercise and analgesics. Prior procedures include intravenous laser ablation and micro foam chemical ablation. Multiple incompetent varicosities of the right leg. Duplex scan showed reflux and enlarged diameters up to 8 mm. The patient underwent informed consent including management options where the complications of infection, bleeding, pain, and skin injury were discussed. Particular attention was spent discussing thrombus extension and deep vein thrombosis as well as the possibility of pulmonary embolus and treatment with oral or injectable blood thinners. Procedure: The patient walked to the procedure room. All applicable staff donned appropriate apparel. A procedure timeout was performed to confirm correct patient, correct extremity, correct procedure, and correct room set-up including presence of all applicable supplies, devices, and drugs. A duplex ultrasound, performed by myself confirmed the location and incompetence of right leg varicose veins and their course marked on the skin together with the dilated tributaries. The extent of treatment of the vein and the associated varicosities was determined through ultrasound mapping. The patient was placed on the operating room table. The limb was prepped. The skin was punctured with a butterfly needle through the skin with the venous access needle and advanced under ultrasound guidance. The target limb was positioned at 45 degrees of elevation in relation to the torso utilizing a foam pad. The Varithena(r) canister was previously activated and the canister was primed and purged as required in the instructions for use. The following injections were made: 5 mL aliquot of Varithena(r) was drawn into a sterile syringe. Injection into a 5 mm varicose vein distal medial lower leg 5 mL aliquot of Varithena(r) was drawn into a sterile syringe. Injection into an 8 mm varicose vein proximal medial lower leg, this was a tributary of the great saphenous vein 5 mL aliquot of Varithena(r) was drawn into a sterile syringe. Injection into a 8 mm varicose vein mid medial thigh, tributary of the great saphenous vein Varithena(r) was slowly administered at 0.5-1.0 cc/second with close observation by ultrasound of its course in the injected veins. A total volume of 15 mL of Varithena(r) was used. During administration of Varithena(r), the patient was asked to dorsiflex the ankle to limit flow of Varithena(r) into perforating veins. Once appropriate spasm had been confirmed in the treated veins, the vascular catheter was removed from the leg and light pressure was applied over the puncture site for hemostasis The common femoral and deep superficial veins were then evaluated for flow and compressibility prior to dressing placement. The lower extremity was kept elevated at 45 degrees above the horizontal and cording material was applied over the saphenous segments and tributaries to allow for eccentric compression over the target vessels including the targeted saphenous vein(s). A multilayer dressing was applied consisting of foam pads, coban and thigh-high 20-30 mm Hg compression elastic support hose were placed on the patient. The leg was lowered only after compression had been applied and the patient was immediately ambulatory. The patient ambulated 10 minutes under supervision and was without apparent concerns at time of release Post-care instructions include advising patient to keep post-treatment bandages in place and dry for 48 hours, avoid extended periods of inactivity, avoid heavy exercise for one week, wear compression stockings on the treated leg continuously for two weeks, to walk da (more content not included)... Normal [facility] VC CONSULT FOLLOWUPon 2021 VC CONSULT FOLLOWUP Patient: MIKY NOLEN Exam Date: 06/30/2022 : 1950 Gender:F Ordering : DR WILLARD GAMBOA M.D. Admission #: [id number] Family : Order #: [id number] CLICK HERE TO VIEW EXAM RADIOLOGY REPORT PROCEDURE: VEIN CENTER CONSULTATION FOLLOWUP VEIN CENTER - OFFICE VISIT FOLLOW UP COMPARISON: VC CONSULT FOLLOWUP, 06/19/2022. VC CONSULT FOLLOWUP, 05/31/2022. PROGRESS NOTES: The patient reports mild discomfort of both legs related to thrombus. The patient does take Tylenol twice per day in her normal routine and has not required extra oral analgesics. The patient has worn her compression stocking. The patient did have concern over failure of closure of the left small saphenous vein which I discussed is something that we often see when a patient is on anticoagulation. The patient is on Xarelto. The patient has followed our recommendations to walk 20-30 minutes once or twice per day since the procedure. Patient reports significant improvement in swelling and pain from her initial presenting exam. Physical exam demonstrates multiple areas of varicose vein thrombosis with no significant erythema or warmth to suggest cellulitis or thrombophlebitis. No active ulceration. Review of the ultrasound performed the same day demonstrates occlusive thrombus extending throughout the treated left leg varicose veins. Extensive bilateral incompetent branch saphenous tributary/varicose veins remain. The patient expressed a desire to proceed with treatment incompetent branch saphenous tributaries/varicose veins with micro foam chemical ablation. IMPRESSION: 1. Successful ablation of left leg varicose veins 2. Persistent bilateral incompetent varicose veins PLAN: Micro foam chemical ablation of the right leg Nurse notes, history and physical were reviewed and confirmed, see attached forms. The nurse was present throughout the physical exam and consultation Dictated by: Willard Gamboa MD on 06/30/2022 at 13:16 Approved by: Willard Gamboa MD on 06/30/2022 at 13:21 Normal [facility] VC EXT VENOUS LT LIMITEDon 0 06-30-2022 VC EXT VENOUS LT LIMITED Patient: MIKY NOLEN Exam Date: 06/30/2022 : 1950 Gender:F Ordering : DR WILLARD GAMBOA M.D. Admission #: [id number] Family : Order #: [id number] CLICK HERE TO VIEW EXAM RADIOLOGY REPORT PROCEDURE: VEIN CENTER EXTREMITY VENOUS LEFT LIMITED COMPARISON: VC EXT VENOUS LT LIMITED, 05/31/2022. VC EXT VENOUS LT LIMITED, 04/13/2022. INDICATIONS: PHLEBITIS AND THROMBOPHLEBITIS OF SUPERFICIAL VESSELS OF LEFT LOWER EXTREMITY I80.02 TECHNIQUE: Lower extremity mcgrath scale and Duplex Doppler evaluation of the deep venous system from the inguinal ligament through the calf veins. FINDINGS: REGION: Left lower extremity. THROMBI: Negative for DVT. Varithena induced thrombus visualized at dist/med calf and mid/med calf. COMPRESSIBILITY: Noncompressibility corresponding to thrombus FLOW: Absent flow corresponding to thrombus OTHER: Patent varicose vein prox/post calf 5.8mm with 2.7s reflux. Patent varicose vein mid/med calf 6.1mm with 2.3s reflux. Patent varicose vein dist/post thigh 5.3mm with 1.0s reflux. *Exam performed in accordance with AIUM practice guidelines- Peripheral venous ultrasound, January 22, 2010. CONCLUSION: Post ablation occlusion of treated incompetent left leg varicose veins with residual incompetent varicose veins measuring up to 6.1 mm Dictated by: Willard Gamboa MD on 06/30/2022 at 13:00 Approved by: Willard Gamboa MD on 06/30/2022 at 13:02 Normal [facility] ALBUMIN, RANDOM URINE W/CREA [facility] 06-26-2022 ALBUMIN, URINE 12.7 mg/dL Normal See Note: [facility] Comment on above: Result Comment: Refe renshiloh Range: Reference Range Not established Performed By: #### 7 600, 496, 23794, 8798 #### [facility] [address], [address] [place] [id number] [employer]: Marek Subramanian MD ALBUMIN/CREATININE RATIO, RANDOM URINE 62 mcg/mg creat High <30 [facility] Comment on above: Result Comment: The ADA defines abnormalities in albumin excretion as follows: Albuminuria Category Result (mcg/mg creatinine) Normal to Mildly increased <30 Moderately increased 30-299 Severely increased > OR = 300 The ADA recommends that at least two of three specimens collected within a 3-6 month period be abnormal before considering a patient to be within a diagnostic category. Performed By: #### 7 600, 496, 29624, 6517 #### [facility] [address], [address] [place] [id number] [employer]: Marek Subramanian MD Creatinine (U) [Mass/Vol] 205 mg/dL Normal 20-275 [facility] Comment on above: Performed By: #### 7 600, 496, 98096, 6517 #### [facility] [place] [address] [employer]: Marek Subramanian MD [facility] 06-26-2022 Albumin [Mass/Vol] 3.9 g/dL Normal 3.6-5.1 [facility] Comment on above: Performed By: #### 7 600, 496, 54702, 6517 #### [facility] [place] [address] [employer]: Marek Subramanian MD Albumin/Globulin [Mass ratio] 1.4 {ratio} Normal 1.0-2.5 [facility] Comment on above: Performed By: #### 7 600, 496, 22472, 6517 #### [facility] of [address], [address] [place] [address] [employer]: Marek Subramanian MD ALP [Catalytic activity/Vol] 106 U/L Normal 37-153 [facility] Comment on above: Performed By: #### 7 600, 496, 98405, 6517 #### [facility] [place] [address] [employer]: Marek Subramanian MD ALT [Catalytic activity/Vol] 10 U/L Normal 6-29 [facility] Comment on above: Performed By: #### 7 600, 496, 70148, 6517 #### [facility] [place] [address] [employer]: Marek Subramanian MD AST [Catalytic activity/Vol] 13 U/L Normal 10-35 [facility] Comment on above: Performed By: #### 7 600, 496, 54200, 6517 #### [facility] [place] [address] [employer]: Marek Subramanian MD Bilirubin [Mass/Vol] 0.8 mg/dL Normal 0.2-1.2 [facility] Comment on above: Performed By: #### 7 600, 496, 98408, 6517 #### [facility] [place] [address] [employer]: Marek Subramanian MD BUN/CREATININE RATIO NOT APPLICABLE Normal 6-22 [facility] Comment on above: Performed By: #### 7 600, 496, 28244, 6517 #### [facility] [place] [address] [employer]: Marek Subramanian MD Calcium [Mass/Vol] 9.9 mg/dL Normal 8.6-10.4 [facility] Comment on above: Performed By: #### 7 600, 496, 18070, 6517 #### [facility] [place] [address] [employer]: Marek Subramanian MD Chloride [Moles/Vol] 109 mmol/L Normal 98-110 [facility] Comment on above: Performed By: #### 7 600, 496, 80585, 6517 #### [facility] [place] [address] [employer]: Marek Subramanian MD CO2 [Moles/Vol] 24 mmol/L Normal 20-32 [facility] Comment on above: Performed By: #### 7 600, 496, 12305, 6517 #### [facility] [place] [address] [employer]: Marek Subramanian MD Creatinine [Mass/Vol] 0.88 mg/dL Normal 0.60-1.00 [facility] Comment on above: Performed By: #### 7 600, 496, 39614, 6517 #### [facility] [place] [address] [employer]: Marek Subramanian MD GFR/1.73 sq M.predicted among non-blacks MDRD (S/P/Bld) [Vol rate/Area] 70 mL/min/{1.73_m2} Normal > OR = 60 [facility] Comment on above: Result Comment: The eGFR is based on the CKD-EPI 2020 equation. To calculate the new eGFR from a previous Creatinine or Cystatin C result, go to https://www.kidney.org/professionals/ kdoqi/gfr%5Fcalculator Performed By: #### 7 600, 496, 12338, 6517 #### [facility] [place] [address] [employer]: Marek Subramanian MD Globulin (S) [Mass/Vol] 2.7 g/dL Normal 1.9-3.7 [facility] Comment on above: Performed By: #### 7 600, 496, 35001, 6517 #### [facility] [place] [address] [employer]: Marek Subramanian MD Glucose [Mass/Vol] 91 mg/dL Normal 65-99 [facility] Comment on above: Result Comment: Fasting reference interval Performed By: #### 7 600, 496, 02882, 6517 #### [facility] [place] [address] [employer]: Marek Subramanian MD Potassium [Moles/Vol] 4.0 mmol/L Normal 3.5-5.3 [facility] Comment on above: Performed By: #### 7 600, 496, 39835, 6517 #### [facility] [place] [address] [employer]: Marek Subramanian MD Protein [Mass/Vol] 6.6 g/dL Normal 6.1-8.1 [facility] Comment on above: Performed By: #### 7 600, 496, 34437, 6517 #### [facility] [place] [address] [employer]: Marek Subramanian MD Sodium [Moles/Vol] 143 mmol/L Normal 135-146 [facility] Comment on above: Performed By: #### 7 600, 496, 61436, 6517 #### [facility] of [address], [address] [place] [address] [employer]: Marek Subramanian MD Urea nitrogen [Mass/Vol] 15 mg/dL Normal 7-25 [facility] Comment on above: Performed By: #### 7 600, 496, 07864, 6517 #### [facility] [address], [address] [place] [address] [employer]: Marek Subramanian MD HEMOGLOBIN A1con 06-26-2022 HEMOGLOBIN A1c 5.3 % of total Hgb Normal <5.7 [facility] Comment on above: Result Comment: For the purpose of screening for the presence of diabetes: <5.7% Consistent with the absence of diabetes 5.7-6.4% Consistent with increased risk for diabetes (prediabetes) > or =6.5% Consistent with diabetes This assay result is consistent with a decreased risk of diabetes. Currently, no consensus exists regarding use of hemoglobin A1c for diagnosis of diabetes in children. According to [place] Diabetes Association (ADA) guidelines, hemoglobin A1c <7.0% represents optimal control in non- diabetic patients. Different metrics may apply to specific patient populations. Standards of Medical Care in Diabetes(ADA). Performed By: #### 7 600, 496, 82536, 6517 #### [facility] [address], [address] [place] [address] [employer]: Marek Subramanian MD LIPID PANEL, STANDARDon 05-30 Cholesterol [Mass/Vol] 171 mg/dL Normal <200 [facility] Comment on above: Order Comment: FASTI NG:YES FASTING: YES Performed By: #### 7 600, 496, 97421, 6517 #### [facility] [address], [address] [place] [address] [employer]: Marek Subramanian MD Cholesterol in HDL [Mass/Vol] 60 mg/dL Normal > OR = 50 [facility] Comment on above: Order Comment: FASTI NG:YES FASTING: YES Performed By: #### 7 600, 496, 10268, 6517 #### [facility] [address], [address] [place] [address] [employer]: Marek Subramanian MD Cholesterol in LDL [Mass/Vol] 92 mg/dL Normal [facility] Comment on above: Order Comment: FASTI NG:YES FASTING: YES Result Comment: Refe rence range: <100 Desirable range <100 mg/dL for primary prevention; <70 mg/dL for patients with CHD or diabetic patients with > or = 2 CHD risk factors. LDL-C is now calculated using the Chloe calculation, which is a validated novel method providing better accuracy than the Friedewald equation in the estimation of LDL-C. Nikita RUSSELL et al. LEWIS. 2013;310(19): 7279-9990 (http://education.Liveyearbook.Axela/faq/HBP097) Performed By: #### 7 600, 496, 14132, 6517 #### [facility] [address], [address] [place] [address] [employer]: Marek Subramanian MD Cholesterol.total/ Cholesterol in HDL [Mass ratio] 2.9 {ratio} Normal <5.0 [facility] Comment on above: Order Comment: FASTI NG:YES FASTING: YES Performed By: #### 7 600, 496, 72888, 6517 #### [facility] [place] [address] [employer]: Marek Subramanian MD NON HDL CHOLESTEROL 111 mg/dL (calc) Normal <130 [facility] Comment on above: Order Comment: FASTI NG:YES FASTING: YES Result Comment: For patients with diabetes plus 1 major ASCVD risk factor, treating to a non-HDL-C goal of <100 mg/dL (LDL-C of <70 mg/dL) is considered a therapeutic option. Performed By: #### 7 600, 496, 14107, 6517 #### [facility] [address], [address] [place] [address] [employer]: Marek Subramanian MD Triglyceride [Mass/Vol] 95 mg/dL Normal <150 [facility] Comment on above: Order Comment: FASTI NG:YES FASTING: YES Performed By: #### 7 600, 496, 93636, 6517 #### [facility] [address], [address] [place] [address] [employer]: Marek Subramanian MD VC INJ FOAM SCLERO W US MLTI on 06-26-2022 VC INJ FOAM SCLERO W US MLTI Patient: MIKY NOLEN Exam Date: 06/26/2022 : 1950 Gender:F Ordering : DR WILLARD GAMBOA M.D. Admission #: [id number] Family : Order #: [id number] CLICK HERE TO VIEW EXAM RADIOLOGY REPORT PROCEDURE: VEIN CENTER INJECTION FOAM SCLEROSING SOLUTION WITH ULTRASOUND MULTIPLE VEINS COMPARISON: VC INJ FOAM SCLERO W US MLTI, 06/13/2022. Pre-operative Diagnosis: CEAP class C4a venous insufficiency with pain, tenderness, edema and incompetent left great saphenous vein and branch saphenous tributaries, chronic venous insufficiency left leg secondary to venous incompetence Post-operative Diagnosis: CEAP class C4a venous insufficiency with pain, tenderness, edema and incompetent left great saphenous vein and branch saphenous tributaries, chronic venous insufficiency left leg secondary to venous incompetence Procedure Performed: 1. Ultrasound-guided microfoam chemical ablation with Varithena(r) 2. Intraoperative ultrasound guidance Physician: Willard Gamboa M.D. Anesthesia: None Indications for Procedure: 72-year-old female who presents with a long history of lower extremity pain and swelling. The patient failed conservative medical therapy including medical compression stockings, exercise and analgesics. Prior procedures include intravenous laser ablation. 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 Duplex scan showed reflux and enlarged diameters up to 6 mm. The patient underwent informed consent including management options where the complications of infection, bleeding, pain, and skin injury were discussed. Particular attention was spent discussing thrombus extension and deep vein thrombosis as well as the possibility of pulmonary embolus and treatment with oral or injectable blood thinners. Procedure: The patient walked to the procedure room. All applicable staff donned appropriate apparel. A procedure timeout was performed to confirm correct patient, correct extremity, correct procedure, and correct room set-up including presence of all applicable supplies, devices, and drugs. A duplex ultrasound, performed by myself confirmed the location and incompetence of left leg varicosities and their course marked on the skin together with the dilated tributaries. The extent of treatment of the vein and the associated varicosities was determined through ultrasound mapping. The patient was placed on the operating room table. The limb was prepped. The skin was punctured with a butterfly needle through the skin with the venous access needle and advanced under ultrasound guidance. The target limb was positioned at 45 degrees of elevation in relation to the torso utilizing a foam pad. The Varithena(r) canister was activated and the canister was primed and purged as required in the instructions for use. The following injections were made: 8 mL aliquot of Varithena(r) was drawn into a sterile syringe. Injection into a 6 mm varicose vein medial distal lower leg/ankle. A large umbrella repairer vein was occluded with manual pressure until dissipation of the foam was observed 7 mL aliquot of Varithena(r) was drawn into a sterile syringe. Injection into a 5 mm varicose vein medial mid lower leg. Varithena(r) was slowly administered at 0.5-1.0 cc/second with close observation by ultrasound of its course in the injected veins. A total volume of 15 mL of Varithena(r) was used. During administration of Varithena(r), the patient was asked to dorsiflex the ankle to limit flow of Varithena(r) into perforating veins. Once appropriate spasm had been confirmed in the treated veins, the vascular catheter was removed from the leg and light pressure was applied over the puncture site for hemostasis The common femoral and deep superficial veins were then evaluated for flow and compressibility prior to dressing placement. The lower extremity was kept elevated at 45 degrees above the horizontal and cording material was applied over the saphenous segments and tributaries to allow for eccentric compression over the target vessels including the targeted saphenous vein(s). A multilayer dressing was applied consisting of foam pads, coban and thigh-high 20-30 mm Hg compression elastic support hose were placed on the patient. The leg was lowered only after compression had been applied and the patient was immediately ambulatory. The patient ambulated 10 minutes under supervision and was without apparent concerns at time of release Post-care instructions include advising patient to keep post-treatment bandages in place and dry for 48 hours, avoid extended periods of inactivity, avoid heavy exercise for one week, wear compression stockings on the treated leg continuously for two weeks, to walk daily for 10 minutes over the next month. The patient was instructed to take an anti-inflammatory medicine as needed and to follow up for color duplex scan of the GSV, the treated superficial varices, (more content not included)... Normal [facility] VC CONSULT FOLLOWUPon 2021 VC CONSULT FOLLOWUP Patient: IMKY NOLEN Exam Date: 06/19/2022 : 1950 Gender:F Ordering : DR WILLARD GAMBOA M.D. Admission #: [id number] Family : Order #: [id number] CLICK HERE TO VIEW EXAM RADIOLOGY REPORT PROCEDURE: VEIN CENTER CONSULTATION FOLLOWUP VEIN CENTER - OFFICE VISIT FOLLOW UP COMPARISON: VC CONSULT FOLLOWUP, 05/31/2022. PROGRESS NOTES: The patient reports that improvement in leg symptoms. There has been interval reduction in varicosities and bruising. The patient has followed our recommendations to walk 20-30 minutes once or twice per day since the procedure. Physical exam demonstrates decrease in distal right lower extremity bruising. No erythema or evidence of infection. Persistent varicosities are identified along the right leg. Review of the ultrasound performed the same day demonstrates occlusive thrombus extending throughout the treated vein, see separate report, consistent with a successful ablation. No thrombus extending into or beyond the saphenofemoral junction. The patient expressed a desire to proceed with treatment of remaining incompetent branch saphenous varicosities. The patient was informed that treatment was a process and would require several procedures/sessions. IMPRESSION: 1. Successful ablation of the treated branch saphenous varicosities within the right leg. 2. Persistent incompetent branch saphenous veins and lower extremity symptoms PLAN: Next procedure will be microfoam chemical ablation of left lower extremity incompetent branch saphenous varicosities. Nurse notes, history and physical were reviewed and confirmed, see attached forms. The nurse was present throughout the physical exam and consultation Dictated by: Agusto Blanc M.D. on 06/19/2022 at 12:11 Approved by: Agusto Blanc M.D. on 06/19/2022 at 12:14 Normal [facility] VC EXT VENOUS RT LIMITEDon 0 06-19-2022 VC EXT VENOUS RT LIMITED Patient: MIKY NOLEN Exam Date: 06/19/2022 : 1950 Gender:F Ordering : DR WILLARD GAMBOA M.D. Admission #: [id number] Family : Order #: [id number] CLICK HERE TO VIEW EXAM RADIOLOGY REPORT PROCEDURE: VEIN CENTER EXTREMITY VENOUS RIGHT LIMITED COMPARISON: VC EXT VENOUS RT LIMITED, 05/04/2022. INDICATIONS: Phlebitis of superficial veins of lower extremity TECHNIQUE: Lower extremity mcgrath scale and Duplex Doppler evaluation of the deep venous system from the inguinal ligament through the calf veins. FINDINGS: REGION: Right lower extremity. THROMBI: Negative for DVT. Varithena induced thrombus visualized at mid/anterior calf that extends to medial knee. COMPRESSIBILITY: Non-compressible segments. FLOW: Areas of no flow. OTHER: Patent varicose vein 5.5mm with 0.8s reflux. Patent varicose vein 4.4mm with 0.5s reflux. CONCLUSION: 1. Successful post ablation occlusion of treated branch saphenous varicosities within the right leg. Dictated by: Agusto Blanc M.D. on 06/19/2022 at 12:10 Approved by: Agusto Blanc M.D. on 06/19/2022 at 12:11 Normal [facility] VC INJ FOAM SCLERO W US MLTI on 06-13-2022 VC INJ FOAM SCLERO W US MLTI Patient: MIKY NOLEN Exam Date: 06/13/2022 : 1950 Gender:F Ordering : DR WILLARD GAMBOA M.D. Admission #: [id number] Family : Order #: [id number] CLICK HERE TO VIEW EXAM CORRECTION made to pre-op and post-op diagnosis. The right leg was the treated leg. Corrected on: 06/19/2022; RADIOLOGY REPORT PROCEDURE: VEIN CENTER INJECTION FOAM SCLEROSING SOLUTION WITH ULTRASOUND MULTIPLE VEINS COMPARISON: None. Pre-operative Diagnosis: CEAP class C4a venous insufficiency with pain, tenderness, edema and incompetent great saphenous vein, chronic venous insufficiency right leg secondary to venous incompetence Post-operative Diagnosis: CEAP class C4a venous insufficiency with pain, tenderness, edema and incompetent great saphenous vein, chronic venous insufficiency right leg secondary to venous incompetence Procedure Performed: 1. Ultrasound-guided microfoam chemical ablation with Varithena(r) 2. Intraoperative ultrasound guidance Physician: Agusto Blanc M.D. Anesthesia: None. Indications for Procedure: 71 year old female. Symptoms including chronic lower extremity pain, swelling, dilated veins for many years despite conservative medical therapy including medical compression stockings, exercise and analgesics. Prior procedures include: Endovenous laser ablation. 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 Duplex scan showed reflux and enlarged diameters up to 6 mm. The patient has undergone informed consent including management options where the complications of infection, bleeding, pain, and skin injury were discussed. Particular attention was spent discussing thrombus extension and deep vein thrombosis as well as the possibility of pulmonary embolus and treatment with oral or injectable blood thinners. Procedure: The patient walked to the procedure room. All applicable staff donned appropriate apparel. A procedure timeout was performed to confirm correct patient, correct extremity, correct procedure, and correct room set-up including presence of all applicable supplies, devices, and drugs. A duplex ultrasound, performed by myself confirmed the location and incompetence of branch saphenous varicosities and their course was marked on the skin together with the dilated tributaries. The extent of treatment of the veins and the associated varicosities was determined through ultrasound mapping. The skin was prepped and then punctured with a butterfly needle and advanced under ultrasound guidance. The Varithena(r) canister was activated and the canister was primed and purged as required in the instructions for use. Varithena(r) was drawn into a sterile syringe. Varithena(r) was slowly administered at 0.5-1.0 cc/second with close observation by ultrasound of its course in the vessels. Total volume utilized was: 15 mL within a 6 mm incompetent branch saphenous varicosity of the medial right lower leg. Following administration of Varithena(r), the leg was elevated and the patient was asked to repeatedly dorsiflex the ankle to limit flow of Varithena(r) into perforating veins. Once appropriate spasm had been confirmed in the treated veins, the vascular catheter was removed from the leg and light pressure was applied over the puncture site for hemostasis The common femoral and deep superficial veins were then evaluated for flow and compressibility prior to dressing placement. The lower extremity was kept elevated at 45 degrees above the horizontal and cording material was applied over the saphenous segments and tributaries to allow for eccentric compression over the target vessels including the targeted saphenous vein(s). A multilayer dressing was applied consisting of foam pads, coban and thigh-high 20-30 mm Hg compression elastic support hose were placed on the patient. The leg was lowered only after compression had been applied and the patient was immediately ambulatory. The patient ambulated 10 minutes under supervision and was without apparent concerns at time of release Post-care instructions include advising patient to keep post-treatment bandages in place and dry for 48 hours, avoid extended periods of inactivity, avoid heavy exercise for one week, wear compression stockings on the treated leg continuously for two weeks, to walk daily for 10 minutes over the next month. The patient was instructed to take an anti-inflammatory medicine as needed and to follow up for color duplex scan of the Saphenous veins, the treated branch saphenous varicosities, the adjacent deep veins, and additional treatment within 7 days. PERSONNEL: Braxton Herrera R.N. Dictated by: Agusto Blanc M.D. on 06/13/2022 at 14:43 Approved by: Agusto Blanc M.D. on 06/13/2022 at 14:49 Dictated by: Agusto Blanc M.D. on 06/19/2022 at 12:17 Approved by: Agusto Blanc M.D. on 06/19/2022 at 12:17 Normal [facility] VC CONSULT FOLLOWUPon 2021 VC CONSULT FOLLOWUP Patient: MIKY NOLEN Exam Date: 05/31/2022 : 1950 Gender:F Ordering : DR WILLARD GAMBOA M.D. Admission #: [id number] Family : Order #: [id number] CLICK HERE TO VIEW EXAM RADIOLOGY REPORT PROCEDURE: VEIN CENTER CONSULTATION FOLLOWUP VEIN CENTER - OFFICE VISIT FOLLOW UP COMPARISON: VC CONSULT FOLLOWUP, 05/04/2022. PROGRESS NOTES: The patient reports calf tenderness for several days following procedure, which has resolved. Mild bruising of posterior calf. Six The patient has followed our recommendations to walk 20-30 minutes once or twice per day since the procedure. Physical exam demonstrates mild bruising of upper posterior left calf. No erythema or evidence of infection. Persistent varicosities are identified along the legs bilaterally. Review of the ultrasound performed the same day demonstrates occlusive thrombus extending throughout the treated vein, see separate report, consistent with a successful ablation. No thrombus extending into or beyond the saphenofemoral junction. The patient expressed a desire to proceed with treatment of remaining incompetent varicosities. The patient was informed that treatment was a process and would require several procedures/sessions. IMPRESSION: 1. Incomplete closure of the left small saphenous vein secondary to recanalization of vessel. A small segment of thrombus remains. 2. Persistent incompetent branch saphenous veins and bilateral lower extremity symptoms PLAN: 1. Microfoam chemical ablation of incompetent branch saphenous varicosities of the right and left lower extremities. 2. Follow-up of left small saphenous vein for possible spontaneous thrombosis and closure of vein versus continued recanalization and clearing of small remaining thrombus within the vein. Nurse notes, history and physical were reviewed and confirmed, see attached forms. The nurse was present throughout the physical exam and consultation Dictated by: Agusto Blanc M.D. on 05/31/2022 at 12:13 Approved by: Agusto Blanc M.D. on 05/31/2022 at 12:18 Normal [facility] EXT VENOUS LT LIMITEDon 0 05-31-2022 VC EXT VENOUS LT LIMITED Patient: MIKY NOLEN Exam Date: 05/31/2022 : 1950 Gender:F Ordering : DR WILLARD GAMBOA M.D. Admission #: [id number] Family : Order #: [id number] CLICK HERE TO VIEW EXAM RADIOLOGY REPORT PROCEDURE: VEIN CENTER EXTREMITY VENOUS LEFT LIMITED COMPARISON: VC ENDOVENOUS ABL 1ST V RT, 04/26/2022. VC EXT VENOUS LT LIMITED, 04/13/2022. INDICATIONS: Phlebitis and thrombophlebitis of superficial veins of left lower extremity I80.02 TECHNIQUE: Lower extremity mcgrath scale and Duplex Doppler evaluation of the deep venous system from the inguinal ligament through the calf veins. FINDINGS: REGION: Left lower extremity. THROMBI: Negative for DVT. Heat induced thrombus visualized in 1 cm segment of mid SSV. Otherwise patent left SSV. COMPRESSIBILITY: Non-compressible segments. FLOW: Normal waveform and antegrade flow between 5 and 20 cm/s. OTHER: CONCLUSION: 1. Incomplete occlusion of left small saphenous vein secondary to recanalization. Dictated by: Agusto Blanc M.D. on 05/31/2022 at 11:38 Approved by: Agusto Blanc M.D. on 05/31/2022 at 12:13 Normal [facility] CT ABD/PELVIS WO CONon 05-26 CT ABD/PELVIS WO CON EXAMINATION: CT ABD/PELVIS WO CON, 05/26/2022 10:02 AM EDT HISTORY: Abdulkadir hematuria COMPARISON: Priors reviewed including renal ultrasound 05/05/2022 TECHNIQUE: CT scan of the abdomen and pelvis was performed without IV contrast. Oral contrast was not administered prior to the examination. Sagittal and coronal reformats were created and saved to PACS. Dose reduction techniques were achieved by using automated exposure control and/or adjustment of mA and/or kV according to patient size and/or use of iterative reconstruction technique. FINDINGS: Noncontrasted nature of the exam limits evaluation of the vascular structures and solid organs. Lung Bases: No acute findings within the visualized lower chest appear Liver: Normal. Biliary tree: Normal. Gallbladder: Cholelithiasis. No findings of acute cholecystitis. Spleen: Normal. Pancreas: Normal. Adrenal glands: Normal. Kidneys and ureters: Nonobstructing intrarenal nephrolithiasis on the right measuring up to 5 mm grossly unchanged as compared to previous CT exam 11/09/2020. Previously noted stone within the left renal pelvis is no longer seen. Negative for hydronephrosis. Bladder: Decompressed urinary bladder without gross abnormality. Reproductive organs: Hysterectomy. Stellate soft tissue within the operative bed/about the vaginal cuff most notable on the left relates to scarring, unchanged since 2017. No suspicious adnexal mass. Gastrointestinal tract: Procedure change from partial gastrectomy. Small hiatal hernia. Nondilated. No findings of acute appendicitis. Peritoneum/retroperito neum: No free fluid or gas. Vasculature: Atherosclerosis without aneurysm. Lymph nodes: Normal. Abdominal wall: Procedure change about the anterior abdominal wall. Musculoskeletal: Degenerative change of the spine. Unchanged grade 1 anterolisthesis L4 on L5. Osteopenia. IMPRESSION: 1. Negative for hydronephrosis. Grossly unchanged nonobstructing intrarenal nephrolithiasis within the right kidney measuring up to 5 mm. 2. Additional unchanged chronic and postprocedural findings detailed above. Electronically authenticated by: SANTHOSH NICK Date: 2022-05-26 16:43 Normal [facility] VC ENDOVENOUS ABL 1ST V LTon 05-23-2022 VC ENDOVENOUS ABL 1ST V LT Patient: MIKY NOLEN Exam Date: 05/23/2022 : 1950 Gender:F Ordering : DR WILLARD GAMBOA M.D. Admission #: [id number] Family : Order #: [id number] CLICK HERE TO VIEW EXAM RADIOLOGY REPORT PROCEDURE: VEIN CENTER ENDOVENOUS ABLATION FIRST VEIN LEFT COMPARISON: VC ENDOVENOUS ABL 1ST V LT, 02/08/2022. INDICATIONS: Pain co-occurrent and due to varicose veins of bilateral legs I83.813 OPERATIVE REPORT: The risks and benefits of the procedure had been previously discussed, and were rediscussed at length. Informed written consent was obtained by and Braxton grace. Time out procedure was performed. The left lower extremity was prepared and draped in the usual sterile fashion to allow knee flexion in the sterile field. Duplex ultrasound probe was draped in a sterile cover, sterile transmission gel was used. Venous mapping was performed with the areas of dilation and large tributaries marked. The total length was 24 cm from the entry 3 cm above the medial malleolus to 3 cm below the saphenopopliteal junction. The diameter of the small saphenous vein ranged from 5.9 mm. A 30 gauge needle and 1% buffered lidocaine was used to anesthetize the entry site. A 4 mm incision was made with a scalpel and the saphenous vein was entered percutaneously under direct ultrasound guidance with a micropuncture set, a single stick was successful in gaining access. A micro-guide wire was inserted and the needle removed. A micro-set including a dilator was inserted over the microwire and the needle and dilator were removed. A 0.018 guide wire was inserted through the micro-set and threaded through the saphenous vein to the saphenofemoral junction. The dilator was removed and an introducer sheath was inserted over the wire until the end of the sheath entered the saphenofemoral junction. The dilator and wire were removed and the 600 micron fiber was introduced and placed and positioned so that it extended beyond the sheath and was 3 cm peripheral to the saphenofemoral femoral junction. Final position of the fiber was determined by ultrasound guidance and duplex imaging. Tumescent anesthetic was delivered by ultrasound guidance. 1 minutes 25 cc of fluid was delivered along the entire course of the saphenous vein. The solution consisted of 500 cc of normal saline with 20mL of 1% lidocaine and 10 mL of sodium bicarbonate. A final positioning check was made. The energy source was turned on by means of the foot pedal and the fiber and sheath were withdrawn. The total number of Joules delivered was 1145. The laser was active for 143 seconds under continuous pulse, average laser use of 8 J. Laser start time 12:15 p.m. May 23, 2022. Laser stop time 12:18 p.m. May 23, 2022. A duplex ultrasound revealed compressibility and flow at the saphenofemoral junction immediately after the procedure. Hemostasis at the access site was achieved. The skin incision of the saphenous vein was closed with a 4 x 4. A compression stocking was applied. Postop instructions were given. A follow up appointment was recommended and scheduled. The patient tolerated the procedure well and was discharged in good condition. CONCLUSION: 1. Technically successful endovenous laser ablation of the left small saphenous vein. Dictated by: Agusto Blanc M.D. on 05/23/2022 at 12:31 Approved by: Agusto Blanc M.D. on 05/23/2022 at 12:34 Normal [facility] US KIDNEYSon 05-05-2022 US KIDNEYS EXAMINATION: US KIDNEYS HISTORY: Abdulkadir hematuria COMPARISON: No relevant comparison available. TECHNIQUE: Ultrasound examination was performed of the bladder. FINDINGS: Right Kidney: Normal in size, contour and echotexture. The cortex measures 1 cm. Mild pelviectasis stable post void imaging. 9 mm area of anechoic echogenicity inferior cortex, simple cyst. No solid cortical mass or hydronephrosis. Height: 4.9 cm Length: 11.1 cm Width: 6.2 cm Left Kidney: Limited visualization. Grossly normal in size, contour and echotexture. The cortex measures 1.1 cm Height: 5.1 cm Length: 9.9 cm Width: 5.0 cm Urinary bladder measures 3.1 x 8.2 x 5.3 cm a volume of 93 mL IMPRESSION: Right pelviectasis No explanation for the patient's hematuria Electronically authenticated by: WILLARD GAMBOA Date: 2022-05-05 13:29 Normal [facility] XR KUB 1 VIEWon 05-05-2022 XR KUB 1 VIEW EXAMINATION: XR KUB 1 VIEW HISTORY: Abdulkadir hematuria , kidney stone, right flank pain COMPARISON: XR KUB 12/28/2021 FINDINGS: KIDNEY/URETER - RIGHT: No visible renal or ureteral calcifications. KIDNEY/URETER - LEFT: No visible renal or ureteral calcifications. PELVIS: No visible ureteral calcifications. Stable pelvic calcifications favoring phleboliths.. BOWEL: No abnormal dilation or deviation. BONES: No acute abnormality. OTHER: Numerous surgical clips within the epigastric region.. No abnormal gaseous collections. IMPRESSION: 1. No appreciable urinary tract calculi. Electronically authenticated by: AGUSTO BLANC Date: 2022-05-05 15:54 Normal [facility] MG MAMM SCREEN 3D TANMAY CADon 05-04-2022 MG MAMM SCREEN 3D TANMAY CAD Patient: MIKY NOLEN Exam Date: 05/04/2022 : 1950 Gender:F Ordering : DR CONNOR JEAN BAPTISTE Admission #: [id number] Family : Order #: [id number] CLICK HERE TO VIEW EXAM RADIOLOGY REPORT PROCEDURE: MAMMOGRAM SCREENING 3D BILATERAL CAD COMPARISON: MG MAMM SCREEN TANMAY W CAD, 12/28/2020. MG MAMM SCREEN TANMAY W CAD, 01/27/2019. INDICATIONS: Screening mammography Calculator Name NCI Breast Cancer Risk Assessment Tool 5 Year Breast Cancer Risk 1.70% Lifetime Breast Cancer Risk 4.50% Personal Breast Cancer No Personal Ovarian Cancer No Treatments Hysterectomy, Oophrectomy Family Cancers Grandmother-maternal with throat,mouth cancer at age 50; Brother with colon cancer at age 60. LOCATION: [facility] BREAST COMPOSITION: Scattered areas fibroglandular density. FINDINGS: DIAGNOSTIC CATEGORY 2--BENIGN FINDING: RIGHT BREAST: No significant suspicious finding. Stable, chronic small asymmetry within the anterior lower-outer quadrant. No significant change has occurred. LEFT BREAST: No significant suspicious finding. No significant change has occurred. RECOMMENDATIONS: ROUTINE MAMMOGRAM AND CLINICAL EVALUATION IN 12 MONTHS. PLEASE NOTE: A NORMAL MAMMOGRAM DOES NOT EXCLUDE THE POSSIBILITY OF BREAST CANCER. A CLINICALLY SUSPICIOUS PALPABLE LUMP SHOULD BE BIOPSIED. Dictated by: Agusto Blanc M.D. on 05/05/2022 at 14:04 Approved by: Agusto Blanc M.D. on 05/05/2022 at 14:21 Normal [facility] VC CONSULT FOLLOWUPon 2021 VC CONSULT FOLLOWUP Patient: MIKY NOLEN Exam Date: 05/04/2022 : 1950 Gender:F Ordering : DR WILLARD GAMBOA M.D. Admission #: [id number] Family : Order #: [id number] CLICK HERE TO VIEW EXAM RADIOLOGY REPORT PROCEDURE: VEIN CENTER CONSULTATION FOLLOWUP VEIN CENTER - OFFICE VISIT FOLLOW UP COMPARISON: VC CONSULT FOLLOWUP, 04/13/2022. PROGRESS NOTES: The patient reports that improvement in leg symptoms. There has been interval reduction in varicosities. The patient has followed our recommendations to walk 20-30 minutes once or twice per day since the procedure. Physical exam demonstrates persistent swelling and superficial varicosities right and left leg. Review of the ultrasound performed the same day demonstrates occlusive thrombus extending throughout the treated vein, see separate report, consistent with a successful ablation. No thrombus extending into or beyond the saphenopopliteal junction. Re-evaluation of left small saphenous vein demonstrates abnormal dilation and abnormal reflux which accounts for the dilated incompetent branch saphenous varicosities within the left calf. The patient expressed a desire to proceed with treatment of remaining incompetent veins. The patient was informed that treatment was a process and would require several procedures/sessions. IMPRESSION: 1. Successful ablation of the right small saphenous vein 2. Persistent abnormally dilated and incompetent left small saphenous veins and left lower extremity symptoms. PLAN: Endovenous laser ablation of the left small saphenous vein followed by microfoam chemical ablation of incompetent branch saphenous varicosities bilaterally. Nurse notes, history and physical were reviewed and confirmed, see attached forms. The nurse was present throughout the physical exam and consultation Dictated by: Agusto Blanc M.D. on 05/04/2022 at 11:32 Approved by: Agusto Blanc M.D. on 05/04/2022 at 11:43 Normal [facility] VC EXT VENOUS RT LIMITEDon 0 05-04-2022 VC EXT VENOUS RT LIMITED Patient: MIKY NOLEN Exam Date: 05/04/2022 : 1950 Gender:F Ordering : DR WILLARD GAMBOA M.D. Admission #: [id number] Family : Order #: [id number] CLICK HERE TO VIEW EXAM RADIOLOGY REPORT PROCEDURE: VEIN CENTER EXTREMITY VENOUS RIGHT LIMITED COMPARISON: VC EXT VENOUS RT LIMITED, 03/08/2022. INDICATIONS: Phlebitis and thrombophlebitis of superficial veins of right lower extremity I80.01 TECHNIQUE: Lower extremity mcgrath scale and Duplex Doppler evaluation of the deep venous system from the inguinal ligament through the calf veins. FINDINGS: REGION: Right lower extremity. THROMBI: Negative for DVT. Heat induced thrombus visualized 2.9 cm from SPJ. The heat induced thrombus visualized from SPJ to mid calf. SSV becomes patent again at mid calf below area of insertion. COMPRESSIBILITY: Non-compressible AND partially compressible segments. FLOW: Areas of no flow. OTHER: Lt SSV reevaluated. With the patient standing the SPJ measures 5.9mm with 2.2s of reflux. When standing the Lt prox SSV measures 5.5mm with 1.4s reflux. Lt SSV becomes tortuous at mid calf with multiple varicosities arising off of the vessel. CONCLUSION: 1. Successful post ablation occlusion of right small saphenous vein. 2. Re-evaluation of left small saphenous vein demonstrates abnormal dilation and significant reflux. Dictated by: Agusto Blanc M.D. on 05/04/2022 at 11:08 Approved by: Agusto Blanc M.D. on 05/04/2022 at 11:17 Normal [facility] CULTURE URINEon 05-03-2022 CULTURE URINE Culture Observations : LIGHT GROWTH OF MIXED GENITAL LUDWIN. NO POTENTIAL PATHOGENS SEEN. Normal [facility] Comment on above: Performed By: #### U RCX ####[facility] [id number] [id number]. Alysha Machuca UA RANDOMon 05-03-2022 Bilirubin Ql (U) Negative Normal NEGATIVE [facility] Comment on above: Performed By: #### U A #### [facility] [address] [address] [address] Alysha Machuca Clarity (U) TURBID Abnormal CLEAR [facility] Comment on above: Performed By: #### U A #### [facility] [address] [address] [address] Alysha Machuca Color (U) RED Abnormal YELLOW [facility] Comment on above: Result Comment: Prev iously reported as: YELLOW On 05/03/2022 17:30 By CV2 Performed By: #### U A #### [facility] [address] [place] [address] Dr. Alysha Machuca Glucose Ql (U) Negative Normal NEGATIVE [facility] Comment on above: Performed By: #### U A #### [facility] [address] [place] [address] Dr. Alysha Machuca Hemoglobin Ql (U) LARGE Abnormal NEGATIVE [facility] Comment on above: Performed By: #### U A #### [facility] [address] [address] [address] Alysha Machuca Ketones Ql (U) Negative Normal NEGATIVE [facility] Comment on above: Performed By: #### U A #### [facility] [address] [place] [address] Dr. Alysha Machuca LEUKOCYTES Negative Normal NEGATIVE [facility] Comment on above: Performed By: #### U A #### [facility] [address] [place] [address] Dr. Alysha Machuca Nitrite Ql (U) Negative Normal NEGATIVE [facility] Comment on above: Performed By: #### U A #### [facility] [address] [place] [address] Dr. Alysha Machuca pH (U) 6.0 [pH] Normal 5-9 [facility] Comment on above: Performed By: #### U A #### [facility] [address] [place] [address] Dr. Alysha Machuca SPEC GRAVITY 1.025 Normal 1.005-<=1.025 The [facility] Comment on above: Performed By: #### U A #### [facility] [address] [place] [address] Dr. Alysha Machuca UA PROTEIN 100 mg/dl Abnormal NEGATIVE/ TRACE [facility] Comment on above: Performed By: #### U A #### [facility] [address] [place] [address] Dr. Alysha Machuca Urobilinogen Qn (U) 0.2 {Luis'U}/dL Normal 0.2 - 1.0 [facility] Comment on above: Performed By: #### U A #### [facility] [id number] Alysha Machuca VC ENDOVENOUS ABL 1ST V RTon 04-26-2022 VC ENDOVENOUS ABL 1ST V RT Patient: MIKY NOLEN Exam Date: 04/26/2022 : 1950 Gender:F Ordering : DR WILLARD GAMBOA M.D. Admission #: [id number] Family : Order #: [id number] CLICK HERE TO VIEW EXAM RADIOLOGY REPORT PROCEDURE: VEIN CENTER ENDOVENOUS ABLATION FIRST VEIN RIGHT small saphenous vein COMPARISON: VC ENDOVENOUS ABL 1ST V RT, 03/03/2022. INDICATIONS: Pain co-occurrent and due to varicose veins of bilateral legs I83.813 OPERATIVE REPORT: The risks and benefits of the procedure had been previously discussed, and were rediscussed at length. Informed written consent was obtained by me and Braxton Herrera assisted. Time out procedure was performed. The right lower extremity was prepared and draped in the usual sterile fashion. Duplex ultrasound probe was draped in a sterile cover, sterile transmission gel was used. Venous mapping was performed with the areas of dilation and large tributaries marked. The total length was 26 cm from the entry 2 cm above the medial malleolus to wear the vein begins to dive deep into the muscle fascia. The diameter of the small saphenous vein ranged from 4-7 mm. A 30 gauge needle and 1% buffered lidocaine was used to anesthetize the entry site. A 4 mm incision was made with a scalpel and the saphenous vein was entered percutaneously under direct ultrasound guidance with a micropuncture . Numerous needle insertion were required to gain access, technical problems with ultrasound machine necessitated intraprocedural replacement. A micro-guide wire was inserted and the needle removed. A micro-set including a dilator was inserted over the microwire and the needle and dilator were removed. A 0.018 guide wire was inserted through the micro-set and threaded through the saphenous vein to the saphenofemoral junction. The dilator was removed and an introducer sheath was inserted over the wire. The dilator and wire were removed and the 600 micron fiber was introduced and placed and positioned so that it extended beyond the sheath. Final position of the fiber was determined by ultrasound guidance and duplex imaging. Tumescent anesthetic was delivered by ultrasound guidance. 150 cc of fluid was delivered along the entire course of the saphenous vein. The solution consisted of 500 cc of normal saline with 20mL of 1% lidocaine and 10 mL of sodium bicarbonate. A final positioning check was made. The energy source was turned on by means of the foot pedal and the fiber and sheath were withdrawn. The total number of Joules delivered was 1198. The laser was active for 180 seconds under continuous pulse, average laser use of 8 J. Laser start time 10:05 a.m.. Laser stop time 10:52 a.m. A duplex ultrasound revealed compressibility and flow at the saphenofemoral junction immediately after the procedure. Hemostasis at the access site was achieved. The skin incision of the saphenous vein was closed with a 4 x 4. A compression stocking was applied. Postop instructions were given. A follow up appointment was recommended and scheduled. The patient tolerated the procedure well and was discharged in good condition. CONCLUSION: 1. Technically successful endovenous laser ablation of the right small saphenous vein. Dictated by: Willard Gamboa MD on 04/26/2022 at 10:54 Approved by: Willard Gamboa MD on 04/26/2022 at 10:58 Normal [facility] VC CONSULT FOLLOWUPon 2021 VC CONSULT FOLLOWUP Patient: MIKY NOLEN Exam Date: 04/13/2022 : 1950 Gender:F Ordering : DR WILLARD GAMBOA M.D. Admission #: [id number] Family : Order #: [id number] CLICK HERE TO VIEW EXAM RADIOLOGY REPORT PROCEDURE: VEIN CENTER CONSULTATION FOLLOWUP VEIN CENTER - OFFICE VISIT FOLLOW UP COMPARISON: VC CONSULT FOLLOWUP, 03/08/2022. PROGRESS NOTES: The patient reports that improvement in leg symptoms. There has been interval reduction in varicosities. The patient has followed our recommendations to walk 20-30 minutes once or twice per day since the procedure. Physical exam demonstrates no significant bruising within upper anterior left thigh. No erythema, edema, or signs of infection. Persistent varicosities. Review of the ultrasound performed the same day demonstrates occlusive thrombus extending throughout the treated vein, see separate report, consistent with a successful ablation. No thrombus extending into or beyond the saphenofemoral junction. The patient expressed a desire to proceed with treatment of small saphenous veins bilaterally. The patient was informed that treatment was a process and would require several procedures/sessions. IMPRESSION: 1. Successful ablation of the right anterior accessory saphenous vein 2. Persistent incompetent branch saphenous veins and bilateral leg symptoms PLAN: Endovenous laser ablation of right and left small saphenous veins. Nurse notes, history and physical were reviewed and confirmed, see attached forms. The nurse was present throughout the physical exam and consultation Dictated by: Agusto Blanc M.D. on 04/13/2022 at 10:56 Approved by: Agusto Blanc M.D. on 04/13/2022 at 10:59 Normal [facility] VC EXT VENOUS LT LIMITEDon 0 04-13-2022 VC EXT VENOUS LT LIMITED Patient: MIKY NOLEN Exam Date: 04/13/2022 : 1950 Gender:F Ordering : DR WILLARD GAMBOA M.D. Admission #: [id number] Family : Order #: [id number] CLICK HERE TO VIEW EXAM RADIOLOGY REPORT PROCEDURE: VEIN CENTER EXTREMITY VENOUS LEFT LIMITED COMPARISON: VC EXT VENOUS LT LIMITED, 02/15/2022. INDICATIONS: Phlebitis and thrombophlebitis of superficial veins of left lower extremity I80.02 TECHNIQUE: Lower extremity mcgrath scale and Duplex Doppler evaluation of the deep venous system from the inguinal ligament through the calf veins. FINDINGS: REGION: Left lower extremity. THROMBI: Negative for DVT. Areas of heat induced thrombus seen 3.8cm from saphenofemoral junction. In AASV proximal thigh medial and anterior. COMPRESSIBILITY: Non-compressible segments. FLOW: Areas of no flow. OTHER: Incompetent bilateral SSV with tributaries. CONCLUSION: 1. Successful post ablation occlusion of right anterior accessory saphenous vein branches. Dictated by: Agusto Blanc M.D. on 04/13/2022 at 10:55 Approved by: Agusto Blanc M.D. on 04/13/2022 at 10:56 Normal [facility] Office Visit (Cardiology)on 03-22-2022 Follow-up visit Diagnoses/Problems Assessed Non-ischemic cardiomyopathy (425.4) (I42.8) Hyperlipidemia (272.4) (E78.5) Anticoagulated (V58.61) (Z79.01) Paroxysmal atrial fibrillation (427.31) (I48.0) Morbid obesity with BMI of 40.0-44.9, adult (278.01,V85.41) (E66.01,Z68.41) Never a smoker Orders Hyperlipidemia Renew: Lovastatin 10 MG Oral Tablet; TAKE 1 TABLET DAILY DIRECTED Morbid obesity with BMI of 40.0-44.9, adult Healthy Weight Tips; Status:Complete - Retrospective Authorization; Done: 22Mar2022 Paroxysmal atrial fibrillation IO EKG Electrocardiogram- 12 Lead; Status:Complete; Done: 22Mar2022 SocHx: Never a smoker Tobacco Use Screening; Status:Complete; Done: 22Mar2022 Patient Instructions By signing my name below, I, Lucia Roy LPN ,Scribe, attest that this documentation has been prepared under the direction and in the presence of Dr. Nick Richardson MD. All medical record entries made by the Scribe were at my direction and personally dictated by me. I have reviewed the chart and agree that the record accurately reflects my personal performance of the history, physical exam, discussion and plan. Please bring all medicines, vitamins, and herbal supplements with you when you come to the office. Prescriptions will not be filled unless you are compliant with your follow up appointments or have a follow up appointment scheduled as per instruction of your physician. Refills should be requested at the time of your visit Follow up in 9 months Chief Complaint MIKY NOLEN is being seen for a 6 month follow-up of. History of Present Illness Patient returns in follow-up of problems as noted. In the interim she is done well. She has none of the symptoms of cardiomyopathy that preceded her original diagnosis of heart failure. With guideline directed therapy in the religion of maintenance of sinus rhythm her symptoms have resolved and most recent echocardiogram demonstrates improvement in ejection fraction. Because of this we suggest continued therapy as is. She is protected against risk of stroke not only with Multaq but chronic anticoagulant therapy. Treatment with medical therapy for her hyperlipidemia and blood pressure and cardiomyopathy appears to be adequate and appropriate because of this we suggest no adjustment or change in she will follow-up as noted. We did advocate the merits of diet exercise and weight loss. Current Meds Medication NameInstruction Allopurinol 300 MG Oral TabletTAKE 1 TABLET DAILY. Caltrate 600+D TABSTake 1 tablet daily Centrum Silver 50+Women Oral TabletTAKE 1 TABLET DAILY. Collagen Ultra Oral CapsuleTAKE 1 CAPSULE Daily Levothyroxine Sodium 137 MCG Oral TabletTAKE 1 TABLET DAILY. Loratadine 10 MG Oral CapsuleTAKE 1 CAPSULE Daily Lovastatin 10 MG Oral TabletTAKE 1 TABLET DAILY DIRECTED. Multaq 400 MG Oral TabletTake 1 tablet twice a day [place] 3 CAPSTAKE DIRECTED. Tylenol Arthritis Ext Relief 650 MG TBCRTake 1 tablet twice daily Vitamin D3 25 MCG (1000 UT) Oral TabletTake 1 tablet twice daily Xarelto 20 MG Oral TabletTake 1 tablet daily Allergies Medication Sulfa Drugs Adverse Reaction; Unknown; Recorded By: Fernanda Rolon; 08/16/2021 2:36:52 PM ciprofloxacin Recorded By: Ada Bowser; 08/12/2021 10:24:03 AM Social History Problems Daily caffeine consumption, 2-3 servings a day Never a smoker No alcohol use No illicit drug use Review of Systems Constitutional: not feeling tired. Eyes: no eyesight problems. ENT: no hearing loss and no nosebleeds. Cardiovascular: no intermittent leg claudication and as noted in HPI. Respiratory: no chronic cough and no shortness of breath. Gastrointestinal: no change in bowel habits and no blood in stools. Genitourinary: no urinary frequency. Skin: no skin rashes. Neurological: no seizures and no frequent falls. Psychiatric: no depression and not suicidal. All other systems have been reviewed and are negative for complaint. Vitals Vital Signs Recorded: [id number] 02:06PM Heart Rate47, Apical Vvodnpms503, RUE, Sitting Kobbacqot62, RUE, Sitting Height5 ft 5 in Abrobl296 lb 6.4 oz BMI Ovkuaxtlgc83.17 kg/m2 BSA Calculated2.19 Tobacco Useb) No PHQ-2 #1. Over the last 2 weeks have you felt down, depressed or hopeless? (If yes, answer PHQ-9 below)No PHQ-2 #2. Over the last 2 weeks have you felt little interest or pleasure in doing things? (If yes, answer PHQ-9 below)No Fall Screeninga) No falls within the last year EKG done in office today. Physical Exam Constitutional: alert and in no acute distress. Eyes: no erythema, swelling or discharge from the eye . Neck: neck is supple, symmetric, trachea midline, no masses and no thyromegaly . Pulmonary: no increased work of breathing or signs of respiratory distress and lungs clear to auscultation. Cardiovascular: carotid pulses 2+ bilaterally with no bruit , JVP was normal, no thrills , regular rhythm, normal S1 and S2, no murmurs (more content not included)... Normal [facility] Tobacco Screening.on 022 Adult depression screening assessment No [facility] [employer] 250 DO Work Phone: Fall risk assessment a) No falls within the last year [facility] [employer] 250 DO Work Phone: Tobacco use status [facility] b) No [facility] 250 DO Work Phone: VC ENDOVENOUS ABL PERFORATIN G LTon 03-22-2022 VC ENDOVENOUS ABL PERFORATING LT Patient: MIKY NOLEN Exam Date: 03/22/2022 : 1950 Gender:F Ordering : DR WILLARD GAMBOA M.D. Admission #: [id number] Family : Order #: [id number] CLICK HERE TO VIEW EXAM RADIOLOGY REPORT PROCEDURE: VEIN CENTER ENDOVENOUS ABLATION VEIN LEFT LEG COMPARISON: None. INDICATIONS: Pain co-occurrent and due to varicose veins of bilateral legs I83.813 OPERATIVE REPORT: Diagnosis: Superficial venous reflux, incompetent perforating veins Procedure: Endovenous laser ablation of the left umbrella repairer(s) Procedure: The patient was positioned supine on the table and the leg was prepped and draped to allow for visualization during venous access. A sterile cover was draped over a 16 mhz ultrasound probe. Venous mapping was performed prior to the procedure noting location and size of vessel(s). Left anterior accessory vein 1: Left. The diameter of the vein ranged 4-8 mm in size. Using a 30 gauge needle the entry site was anesthetized with 1 cc of 1% buffered lidocaine. Access was gained percutaneously, with a 21-gauge needle, into the anterior accessory saphenous vein under ultrasound guidance. The needle was advanced into the desired position and the pre-measured 400-micron fiber was then inserted into the needle and locked in place. The position of the fiber was imaged with ultrasound guidance. The fiber tip was visualized to be 3 cm from the saphenofemoral junction. An anesthetic solution of 15 cc 1% lidocaine with sterile saline was delivered along the course of the vein under ultrasound guidance. A final positioning check of the laser fiber tip was performed. The laser was activated by means of a foot-pedal and the fiber and needle were withdrawn together in accordance to the desired joules per treatment area/spot weld. 3 areas/spot welds were performed, and the total number of joules delivered was 181. The total time of energy delivery was 23 seconds. A duplex ultrasound revealed compressibility and flow of the deep system immediately after the procedure. Hemostasis of the access site was achieved and dressed. Left anterior accessory vein tributary 1: Left. The diameter of the vein ranged 4-7 mm in size. Using a 30 gauge needle the entry site was anesthetized with 1 cc of 1% buffered lidocaine. Access was gained percutaneously, with a 21-gauge needle, into the targeted incompetent vein under ultrasound guidance. The needle was advanced into the desired position and the pre-measured 400-micron fiber was then inserted into the needle and locked in place. The position of the fiber was imaged with ultrasound guidance. The fiber tip was visualized to be 3 cm from the saphenofemoral junction. An anesthetic solution of 10 cc 1% lidocaine with sterile saline was delivered along the course of the vein under ultrasound guidance. A final positioning check of the laser fiber tip was performed. The laser was activated by means of a foot-pedal and the fiber and needle were withdrawn together in accordance to the desired joules per treatment area/spot weld. 3 areas/spot welds were performed, and the total number of joules delivered was 172. The total time of energy delivery was 21 seconds. A duplex ultrasound revealed compressibility and flow of the deep system immediately after the procedure. Hemostasis of the access site was achieved and dressed. Left anterior accessory vein tributary 2: Left. The diameter of the vein ranged 4-6 mm in size. Using a 30 gauge needle the entry site was anesthetized with 1 cc of 1% buffered lidocaine. Access was gained percutaneously, with a 21-gauge needle, into the anterior accessory saphenous vein under ultrasound guidance. The needle was advanced into the desired position and the pre-measured 400-micron fiber was then inserted into the needle and locked in place. The position of the fiber was imaged with ultrasound guidance. The fiber tip was visualized to be 3 cm from the saphenofemoral junction. An anesthetic solution of 10 cc 1% lidocaine with sterile saline was delivered along the course of the vein under ultrasound guidance. A final positioning check of the laser fiber tip was performed. The laser was activated by means of a foot-pedal and the fiber and needle were withdrawn together in accordance to the desired joules per treatment area/spot weld. 3 areas/spot welds were performed, and the total number of joules delivered was 224. The total time of energy delivery was 28 seconds. A duplex ultrasound revealed compressibility and flow of the deep system immediately after the procedure. Hemostasis of the access site was achieved and dressed. CONCLUSION: 1. Technically successful endovenous laser ablation of the left anterior accessory saphenous vein and two associated branch saphenous tributaries Dictated by: Willard Gamboa MD on 03/22/2022 at 11:40 Approved by: Willard Gamboa MD (more content not included)... Normal [facility] KAL SCREEN, IFA, W/REFL TITE R/PATTERN (REFL)on 10-01-2021 KAL SCREEN, IFA Positive Abnormal NEGATIVE [facility] Comment on above: Result Comment: KAL IFA is a first line screen for detecting the presence of up to approximately 150 autoantibodies in various autoimmune diseases. A positive KAL IFA result is suggestive of autoimmune disease and reflexes to titer and pattern. Further laboratory testing may be considered if clinically indicated. For additional information, please refer to http://education.Locondo.jp/faq/XWC290 (This link is being provided for informational/ educational purposes only.) Performed By: #### 8 09, 8268, 4420, 25363, %[id number] #### [facility] [address], [address] [place] [id number] [employer] Ticket Selling: Marek Subramanian MD ANTINUCLEAR ANTIBODIES TITER AND PATTERNon 10-01-2021 KAL PATTERN Nuclear, Centromere Abnormal [facility] Comment on above: Result Comment: Cent romere pattern is associated with limited cutaneous systemic sclerosis, CREST (Calcinosis, Raynaud's, Esophageal dysmotility, Sclerodactyly, Telangiectasia), primary biliary cholangitis (PBC), and other autoimmune diseases. AC-3: Centromere International Consensus on KAL Patterns (https://doi.org/10.1515/prnr-7696-7529) Performed By: #### 8 09, 8268, 4420, 03638, %[id number] #### [facility] [address], [address] [place] [address] [employer] Ticket Selling: Marek Subramanian MD KAL PATTERN Nuclear, Homogeneous Abnormal [facility] Comment on above: Result Comment: Homo geneous pattern is associated with systemic lupus erythematosus (SLE), drug-induced lupus and juvenile idiopathic arthritis. AC-1: Homogeneous International Consensus on KAL Patterns (https://doi.org/10.[facility]5/nmvp-2178-4991) Performed By: #### 8 09, 8268, 4420, 05074, %[id number] #### [facility] [place] [address] [employer]icket Selling: Marek Subramanian MD KAL TITER > OR = 1:1280 Abnormal [facility] Comment on above: Result Comment: Refe rence Range <1:40 Negative 1:40-1:80 Low Antibody Level >1:80 Elevated Antibody Level Performed By: #### 8 09, 8268, 4420, 91359, %[id number] #### [facility] [address], [address] [place] [address] [employer] Selling: Marek Subramanian MD KAL TITER 1:80 High [facility] Comment on above: Result Comment: A lo w level KAL titer may be present in pre-clinical autoimmune diseases and normal individuals. Reference Range <1:40 Negative 1:40-1:80 Low Antibody Level >1:80 Elevated Antibody Level Performed By: #### 8 09, 8268, 4420, 97740, %[id number] #### [facility] [address], [address] [place] [address] [employer] Ticket Selling: Marek Subramanian MD C-REACTIVE PROTEINon 021 CRP [Mass/Vol] 13.4 mg/L High <8.0 [facility] Comment on above: Performed By: #### 8 09, 8268, 4420, 73957, %[id number] #### [facility] [address], [address] [place] [address] [employer] Selling: Marek Subramanian MD RHEUMATOID ARTHRITIS DIAGNOS TIC PANEL 1on 10-01-2021 CYCLIC CITRULLINATED PEPTIDE (CCP) AB (IGG) <16 Normal [facility] Comment on above: Result Comment: Refe rence Range Negative: <20 Weak Positive: 20-39 Moderate Positive: 40-59 Strong Positive: >59 Performed By: #### 8 09, 8268, 4420, 76041, %[id number] #### [facility] [place] [address] [employer] Selling: Marek Subramanian MD INTERPRETATION Normal [facility] Comment on above: Result Comment: These serologic results may be found in 10-20% of patients with polyarthritis that is clinically and radiologically indistinguishable from RA. Performed By: #### 8 09, 8268, 4420, 47769, %[id number] #### [facility] [place] [address] [employer] Selling: Marek Subramanian MD RHEUMATOID FACTOR <14 Normal <14 [facility] Comment on above: Performed By: #### 8 09, 8268, 4420, 67961, %[id number] #### [facility] [place] [address] [employer] Ticket Selling: Marek Subramanian MD SED RATE BY MODIFIED SILAS Singh 10-01-2021 SED RATE BY MODIFIED SILASREN 51 mm/h High < OR = 30 [facility] Comment on above: Performed By: #### 8 09, 8268, 4420, 19684, %[id number] #### [facility] [place] [address] [employer] Selling: Marek Subramanian MD Tobacco Screening.on 021 Fall risk assessment a) No falls within the last year -[facility] [employer] 600 DO Work Phone: Tobacco use status [facility] b) No -[facility] 600 DO Work Phone: Vital Signs Date Time Vital Sign Value Performing Clinician Analisa jacobo 12-06-2022 13:27-0500 Body height 165.1 cm Connor G Furlong Work Phone: [facility] 250 DO Work Phone: 12-06-2022 13:27-0500 Body mass index (BMI) [Ratio] 36.94 kg/m2 Connor Marinelli Furlong Work Phone: [facility] 250 DO Work Phone: 12-06-2022 13:27-0500 Body surface area Derived from formula 2.07 m2 Connor Marinelli Furlong Work Phone: [facility] 250 DO Work Phone: 12-06-2022 13:27-0500 Body weight 100.7 kg Connor Marinelli Furlong Work Phone: [facility] 250 DO Work Phone: 12-06-2022 13:27-0500 Diastolic blood pressure 84 mm[Hg] Connor Marinelli Furlong Work Phone: [facility] 250 DO Work Phone: 12-06-2022 13:27-0500 Heart rate 43 /min Connor Lewislong Work Phone: [facility] 250 DO Work Phone: 12-06-2022 13:27-0500 Systolic blood pressure 130 mm[Hg] Connor Marinelli Furlong Work Phone: [facility] 250 DO Work Phone: 06-30-2022 11:43-0400 Blood Pressure Location Sy AVITIA [facility] 06-30-2022 11:43-0400 Diastolic blood pressure 69 mm[Hg] Sy AVITIA [facility] 06-30-2022 11:43-0400 Heart rate 60 /min Sy AVITIA [facility] 06-30-2022 11:43-0400 Respiratory rate 16 /min Sy AVITIA [facility] 06-30-2022 11:43-0400 Systolic blood pressure 129 mm[Hg] Sy AVITIA [facility] 03-22-2022 14:06-0400 Body height 165.1 cm Connor G Furlong Work Phone: [facility] 250 DO Work Phone: 03-22-2022 14:06-0400 Body mass index (BMI) [Ratio] 42.17 kg/m2 Connor G Furlong Work Phone: [facility] 250 DO Work Phone: 03-22-2022 14:06-0400 Body surface area Derived from formula 2.19 m2 Connor G Furlong Work Phone: [facility] 250 DO Work Phone: 03-22-2022 14:06-0400 Body weight 114.94 kg Connor G Furlong Work Phone: [facility] 250 DO Work Phone: 03-22-2022 14:06-0400 Diastolic blood pressure 70 mm[Hg] Connor G Furlong Work Phone: [facility] 250 DO Work Phone: 03-22-2022 14:06-0400 Heart rate 47 /min Connor G Furlong Work Phone: [facility] 250 DO Work Phone: 03-22-2022 14:06-0400 Systolic blood pressure 114 mm[Hg] Connor G Furlong Work Phone: [facility] [employer] 250 DO Work Phone: 08-16-2021 14:38-0400 Body height 165.1 cm Connor Marinelli Furlong Work Phone: [facility] [employer] 600 DO Work Phone: 08-16-2021 14:38-0400 Body mass index (BMI) [Ratio] 42.53 kg/m2 Connor Marinelli Furlong Work Phone: [facility] [employer] 600 DO Work Phone: 08-16-2021 14:38-0400 Body surface area Derived from formula 2.2 m2 Connor Marinelli Furlong Work Phone: [facility] [employer] 600 DO Work Phone: 08-16-2021 14:38-0400 Body weight 115.94 kg Connor Marinelli Furlong Work Phone: [facility] [employer] 600 DO Work Phone: 08-16-2021 14:38-0400 Diastolic blood pressure 74 mm[Hg] Connor Marinelli Furlong Work Phone: [facility] [employer] 600 DO Work Phone: 08-16-2021 14:38-0400 Heart rate 44 /min Connor Marinelli Furlong Work Phone: [facility] [employer] 600 DO Work Phone: 08-16-2021 14:38-0400 Systolic blood pressure 134 mm[Hg] Connor Marinelli Furlong Work Phone: [facility] [employer] 600 DO Work Phone: Encounters Encounter Date Encounter Type Care Provider Facility Start: 10-26-2023 ambulatory Sy Vicente ty:LEXI Mccartney Start: 10-09-2023 End: 10-10-2023 ambulatory DORA ADAMERY Facility:[facility] Start: 03-13-[address] WILLARD GAMBOA Facilit y:[facility] Start: 03-05-2023 End: 03-06-[address] SY AVITIA . Facility:[facility] Start: 03-02-2023 End: 03-03-2023 ambulatory Sy AVITIA Facility:[facility] Start: 02-20-2023 End: 02-21-2023 ambulatory DOCTOR CLAYTON Facility:[facility] Start: 12-06-2022 ambulatory Nick Richardson II Facility: Start: 12-06-2022 Office outpatient vi sit 25 minutes Connor Jean Baptiste Work Phone: [facility] 250 DO Work Phone: Start: 11-20-2022 Rx Renewal Connor nj Work Phone: [facility] 250 DO Work Phone: Start: 11-03-2022 End: 11-04-[address] SY AVITIA . Facility:[facility] Start: 10-27-2022 End: 10-28-[address] WILLARD GAMBOA Facility:[facility] Start: 10-16-2022 End: 10-17-[address] WILLARD GAMBOA Facility:[facility] Start: 10-10-2022 End: 10-11-[address] SY AVITIA . Facility:[facility] Start: 10-06-2022 End: 10-07-[address] WILLARD GAMBOA Facility:[facility] Start: 09-26-2022 End: 09-27-[address] WILLARD GAMBOA Facility:[facility] Start: 09-20-2022 End: 09-21-[address] WILLARD GAMBOA Facility:[facility] Start: 09-07-2022 End: 09-08-[address] CONNOR JEAN BAPTISTE Facility:[facility] Start: 09-07-2022 Encounter for preprocedural laboratory examination DR LESVIA COWAN [facility] Start: 09-05-2022 End: 09-05-2022 Patient encounter procedure Sy AVITIA [facility] Start: 09-01-2022 End: 09-02-[address] CONNOR JEAN BAPTISTE Facility:[facility] Start: 09-01-2022 End: 09-02-2022 Encounter for preprocedural laboratory examination DR CONNOR JEAN BAPTISTE Facility:[facility] Start: 08-31-2022 End: 09-01-[address] CONNOR JEAN BAPTISTE Facility:[facility] Start: 08-22-2022 Rx Renewal Connor nj Work Phone: [facility] 250 DO Work Phone: Start: 08-22-2022 End: 08-23-[address] CONNOR JEAN BAPTISTE Facility:[facility] Start: 08-17-2022 End: 08-18-[address] CONNOR JAEN BAPTISTE Facility:[facility] Start: 08-11-2022 End: 08-11-2022 Lab Drop off DORA ALCAZAR [facility] Start: 08-11-2022 End: 08-11-2022 Patient encounter procedure DORA ALCAZAR [facility] Start: 08-07-2022 End: 08-08-[address] WILLARD GAMBOA Facility:[facility] Start: 08-01-2022 End: 08-02-[address] WILLARD GAMBOA Facility:[facility] Start: 07-17-2022 End: 07-18-[address] WILLARD GAMBOA Facility:[facility] Start: 07-12-2022 End: 07-13-[address] WILLARD GAMBOA Facility:[facility] Start: 06-30-2022 End: 07-01-[address] WILLARD GAMBOA Facility:[facility] Start: 06-30-2022 End: 06-30-2022 Patient encounter procedure Sy AVITIA [facility] Start: 06-26-2022 End: 06-27-[address] WILLARD GAMBOA Facility:[facility] Start: 06-19-2022 End: 06-20-[address] WILLARD GAMBOA Facility:[facility] Start: 06-13-2022 End: 06-14-[address] CONNOR JEAN BAPTISTE Facility:[facility] Start: 05-31-2022 End: 06-01-[address] CONNOR JEAN BAPTISTE Facility:[facility] Start: 05-26-2022 End: 05-27-[address] CONNOR JEAN BAPTISTE Facility:[facility] Start: 05-23-2022 End: 05-24-[address] CONNOR JEAN BAPTISTE Facility:[facility] Start: 05-05-2022 End: 05-06-2022 ambulatory DOCTOR MISC Facility:[facility] Start: 05-04-2022 End: 05-05-[address] WILLARD GAMBOA Facility:[facility] Start: 05-03-2022 End: 05-04-2022 ambulatory DOCTOR MISC Facility:[facility] Start: 04-26-2022 End: 04-27-[address] WILLARD GAMBOA Facility:[facility] Start: 04-13-2022 End: 04-14-[address] WILLARD GAMOBA Facility:[facility] Start: 03-22-2022 ambulatory Connor Jean Baptiste Facility: Start: 03-22-2022 Office outpatient vi sit 25 minutes Connor Tavaresng Work Phone: [facility] 250 DO Work Phone: Start: 03-22-2022 End: 03-23-[address] WILLARD GAMBOA Facility:[facility] Start: 01-31-2022 ambulatory Connor Jean Baptiste Facility: Start: 12-07-2021 Rx Renewal Connor Lewislo ng Work Phone: [facility] 250 DO Work Phone: Start: 08-16-2021 Office outpatient vi sit 15 minutes Connor Tavaresng Work Phone: [facility] 600 DO Work Phone: Imaging result normal Connor Marinelli F urlong Work Phone: [facility] Work Phone: Patient encounter status Connor Jean Baptiste Work Phone: [facility] Work Phone: Procedures Date Procedure Procedure Detail Performing Clinician Start: 11-30-2020 Cystoscopy Sy CORONA Start: 07-14-2020 Cystoscopy Sy CORONA Start: 07-08-2020 Cystoscopy Sy CORONA Start: 07-17-2019 Extracorporeal shock wave lithotripsy of the bile duct Sy AVITIA Comment on above: Right Start: 10-29-2015 Gastric sleeve Sygerry AVITIA Arthroplasty of knee Connor Jean Baptiste Work Phone: Colonoscopy Connor marinelli Work Phone: Esophagogastrostomy, antesternal or antethoracic Connor Jean Baptiste Work Phone: H/O: hysterectomy yS CORONA Comment on above: Complete Hernia repair Connor nj Work Phone: Hysterectomy Connor marinelli Work Phone: Lithotripsy Connor marinelli Work Phone: Renal artery stent (physical object) Sy AVITIA Repair of ventral hernia Malgorzata AVITIA Plan of Treatment Date Care Activity Detail Author Start: 01-29-2024 FUV, Provider: Nick Richardson, Status: Pen, Time: 11:20 AM FUV, Provider: Nick Richardson, Status: Pen, Time: 11:20 AM [facility] Work Phone: Start: 12-06-2022 FUV, Provider: Nick Richardson, Status: Pen, Time: 1:10 PM FUV, Provider: Nick Richardson, Status: Pen, Time: 1:10 PM [facility] 250 DO Work Phone: Start: 01-31-2022 FUV, Provider: Nick Sarkar, Status: Pen, Time: 2:20 PM FUV, Provider: Nick Sarkar, Status: Pen, Time: 2:20 PM [facility] 250 DO Work Phone: Immunizations Immunization Date Immunization Notes Care Provider Fa [facility] 10-15-2022 Fluzone High-Dose Quadrivalent 0.7 ML Intramuscular Suspension Prefilled Syringe Connor Tavaresng Work Phone: [facility] DO Work Phone: 04-29-2022 Comirnaty 30 MCG/0.3 ML Intramuscular Suspension Connor Lewislong Work Phone: [facility] DO Work Phone: 09-08-2021 influenza virus vacc ine, unspecified formulation Sy AVITIA [facility] 08-29-2021 Fluzone High-Dose Quadrivalent 0.7 ML Intramuscular Suspension Prefilled Syringe Connor Lewislong Work Phone: [facility] DO Work Phone: 08-29-2021 Pfizer-BioNTech COVI D-19 Vacc 30 MCG/0.3ML Intramuscular Suspension Connoreugenio Lewislong Work Phone: [facility] DO Work Phone: 12-23-2020 Pfizer-BioNTech COVI D-19 Vacc 30 MCG/0.3ML Intramuscular Suspension Connoreugenio Lewislong Work Phone: [facility] 12-01-2020 Pfizer-BioNTEleven James COVI D-19 Vacc 30 MCG/0.3ML Intramuscular Suspension Connor G Furlong Work Phone: [facility] 09-13-2020 pneumococcal polysaccharide vaccine, 23 valent Connor G Furlong Work Phone: [facility] DO Work Phone: 09-03-2020 influenza, injectabl e, quadrivalent, contains preservative Connor G Furlong [facility] Phone: [facility] DO Work Phone: 08-29-2020 influenza, high dose seasonal, preservative-free Connor G Furlong Work Phone: [facility] Work Phone: 08-29-2020 pneumococcal polysaccharide vaccine, 23 valent Connor G Furlong Work Phone: [facility] DO Work Phone: 08-11-2020 influenza, seasonal, injectable Connor G Furlong Work Phone: [facility] DO Work Phone: 07-29-2020 influenza, seasonal, injectable Connor G Furlong Work Phone: [facility] DO Work Phone: 09-02-2019 influenza, high dose seasonal, preservative-free Connor G Furlong Work Phone: [facility] DO Work Phone: 08-29-2019 influenza virus vacc ine, unspecified formulation Connor G Furlong Work Phone: [facility] 250 DO Work Phone: 08-11-2019 influenza virus vacc ine, unspecified formulation Sy AVITIA [facility] 06-17-2019 zoster vaccine recombinant Connor G Furlong Work Phone: [facility] DO Work Phone: 05-29-2019 zoster vaccine recombinant Connor G Furlong Work Phone: [facility] DO Work Phone: 04-15-2019 zoster vaccine recombinant Connor G Furlong Work Phone: [facility] DO Work Phone: 03-29-2019 zoster vaccine recombinant Connor G Furlong Work Phone: [facility] DO Work Phone: 08-29-2018 influenza virus vacc ine, unspecified formulation Connor G Furlong Work Phone: [facility] DO Work Phone: 09-27-2017 Influenza, injectabl e, Madin Ese Canine Kidney, preservative free, quadrivalent Connor G Furlong Work Phone: [facility] DO Work Phone: 09-26-2017 influenza virus vacc ine, unspecified formulation Connor G Furlong Work Phone: [facility] DO Work Phone: 10-19-2016 seasonal influenza, intradermal, preservative free Connor G Furlong Work Phone: [facility] DO Work Phone: 10-06-2016 influenza, seasonal, injectable, preservative free Connor G Furlong Work Phone: [facility] 600 DO Work Phone: 04-10-2016 pneumococcal conjuga te vaccine, 13 valent Connor Marinelli Furlong Work Phone: [facility] 250 DO Work Phone: 08-07-2014 influenza virus vacc ine, unspecified formulation Connor Marinelli Furlong Work Phone: [facility] 250 DO Work Phone: 07-29-2014 influenza virus vacc ine, unspecified formulation Connor Marinelli Furlong Work Phone: [facility] 250 DO Work Phone: 07-29-2014 pneumococcal polysaccharide vaccine, 23 valent Connor Marinelli Furng Work Phone: [facility] 600 DO Work Phone: 10-02-2013 pneumococcal conjuga te vaccine, 13 valent Connor Marinelli Furng Work Phone: [facility] 250 DO Work Phone: 02-14-2013 zoster vaccine, live [facility] Work [facility]: [facility] 250 DO Work Phone: 10-29-2012 influenza virus vacc ine, unspecified formulation [facility] Work [facility]: [place] [address] DO Work Phone: 10-29-2012 pneumococcal polysaccharide vaccine, 23 valent Connor Marinelli Furlong Work Phone: [facility] 250 DO Work Phone: 02-21-2010 pneumococcal polysaccharide vaccine, 23 valent Connor Marinelli Furlong Work Phone: [facility] 250 DO Work Phone: 02-21-2010 tetanus toxoid, redu mariano diphtheria toxoid, and acellular pertussis vaccine, adsorbed Connor Tavaresng Work Phone: [facility] 250 DO Work Phone: 12-20-2009 novel influenza-H1N1 -09, preservative-free, injectable Connor Lewislong Work Phone: [facility] 600 DO Work Phone: 11-29-2009 novel influenza-H1N1 -09, preservative-free, injectable Connor Tavaresng Work Phone: [facility] DO Work Phone: 09-06-1999 TD(adult) unspecifie d formulation Connor Tavaresng Work Phone: [facility] 600 DO Work Phone: influenza virus vacc ine, unspecified formulation Connor Tavaresng Work Phone: [facility] 250 DO Work Phone: Comment on above: 2010Jul 2012 pneumococcal polysaccharide vaccine, 23 valent Connor TavaresViibar Work Phone: [facility] 250 DO Work Phone: Comment on above: 2010 Payers Date Payer Category Payer Medicare [id number] 1959 Unknown [id number] 1950 Unknown [id number] 2.16. 840.1.590646.3.579.2.356 1950 Unknown [id number] 2.. 840.1.700695.3.579.2.356 1950 Unknown [id number] 2.. 840.1.788841.3.579.2.356 1950 Unknown [id number] 2.16.84 0.1.908362.3.579.2.593 1950 Unknown [id number] 2.16.84 0.1.119515.3.579.2.593 1950 Unknown [id number] 2.16.84 0.1.665731.3.579.2.593 1950 Unknown [id number] 2.16.84 0.1.346731.3.579.2.593 1950 Unknown [id number] 2.16.84 0.1.999156.3.579.2.593 1950 Unknown [id number] 2.16.84 0.1.520667.3.579.2.593 1950 Unknown [id number] 2.16.84 0.1.190743.3.579.2.593 1950 Unknown [id number] 2.16.84 0.1.571588.3.579.2.593 1950 Unknown [id number] 2.16.84 0.1.674678.3.579.2.593 1950 Unknown [id number] 2.16.84 0.1.188926.3.579.2.593 1950 Unknown [id number] 2.16.84 0.1.475957.3.579.2.593 1950 Unknown [id number] 2.16.84 0.1.217926.3.579.2.593 1950 Unknown [id number] 2.16.84 0.1.627549.3.579.2.593 1950 Unknown [id number] 2.16.84 0.1.675465.3.579.2.593 1950 Unknown [id number] 2.16.84 0.1.684928.3.579.2.593 1950 Unknown [id number] 2.16.84 0.1.313996.3.579.2.593 1950 Unknown [id number] 2.16.84 0.1.175270.3.579.2.593 1950 Unknown [id number] 2.16.84 0.1.176912.3.579.2.593 1950 Unknown [id number] 2.16.84 0.1.855628.3.579.2.593 1950 Unknown [id number] 2.16.84 0.1.217351.3.579.2.593 1950 Unknown [id number] 2.16.84 0.1.838794.3.579.2.593 1950 Unknown [id number] 2.16.84 0.1.714978.3.579.2.593 1950 Unknown [id number] 2.16.84 0.1.629869.3.579.2.593 1950 Unknown [id number] 2.16.84 0.1.001186.3.579.2.593 1950 Unknown [id number] 2.16.84 0.1.530062.3.579.2.593 1950 Unknown [id number] 2.16.84 0.1.687669.3.579.2.593 1950 Unknown [id number] 2.16.84 0.1.619779.3.579.2.593 1950 Unknown [id number] 2.16.84 0.1.700167.3.579.2.593 1950 Unknown [id number] 2.16.84 0.1.912857.3.579.2.593 1950 Unknown [id number] 2.16.84 0.1.915906.3.579.2.593 1950 Unknown [id number] 2.16.84 0.1.799009.3.579.2.593 1950 Unknown [id number] 2.16.84 0.1.821625.3.579.2.593 1950 Unknown [id number] 2.16.84 0.1.139348.3.579.2.593 1950 Unknown [id number] 2.16.84 0.1.996288.3.579.2.593 1950 Unknown [id number] 2.16.84 0.1.583966.3.579.2.593 1950 Unknown [id number] 2.16.8 40.1.352278.3.579.2.727 1950 Unknown [id number] 2.16.8 40.1.512107.3.579.2.727 1950 Unknown [id number] 2.16.8 40.1.284036.3.579.2.727 Unknown Social History Date Type Detail Facility Never a smoker Never a smoker [facility] 600 DO Work Phone: Start: 12-28-2021 Tobacco smoking status Never s moked tobacco (finding) [facility] Tobacco smoking status Never [facility] Sex Assigned At Female [facility] Functional Status Date Assessment Result Facility 08-24-2022 Functional Status N/A [facility] 06-30-2022 Functional Status N/A [facility] Discharge instructions 09-05-2022 Note Date & Type Note Facility 09-05-2022 Hospital Discharg e instructions Patient Education 09/05/2022 12:09:04 [facility] - Cystoscopy Discharge Instructions (CUSTOM) Cystoscopy Voiding after the procedure: there may be some pain, burning, urgency, frequency and blood tinged urine following the procedure. These symptoms usually resolve within 2-5 days. Drink the amount of fluid it takes to keep the urine pink to yellow or clear in color. Drinking enough water and fluids will help to ease any discomfort after your procedure. If you are having problems that seem out of the ordinary, please call. If unable to contact your physician and you feel it is an emergency, go to the nearest emergency room or call 911 Diet you may resume your normal diet. Activity you may resume your normal activities Call if you have a fever over 100 degrees. Follow Up Care 08/22/2022 14:01:27 With:Sy AVITIA Address: [facility] [address] [place] [address]- Business (1) When:03/05/2023 12:06:31 [facility] Hospital Discharge instructions 06-30-2022 Note Date & Type Note Facility 06-30-2022 Hospital Discharg e instructions Patient Education 06/30/2022 12:01:44 Kidney Stones, Juck-bs-Lhob Kidney Stones Kidney stones are rock-like masses that form inside of the kidneys. Kidneys are organs that make pee (urine). A kidney stone may move into other parts of the urinary tract, including: The tubes that connect the kidneys to the bladder (ureters). The bladder. The tube that carries urine out of the body (urethra). Kidney stones can cause very bad pain and can block the flow of pee. The stone usually leaves your body (passes) through your pee. You may need to have a doctor take out the stone. What are the causes? Kidney stones may be caused by: A condition in which certain glands make too much parathyroid hormone (primary hyperparathyroidism). A buildup of a type of crystals in the bladder made of a chemical called uric acid. The body makes uric acid when you eat certain foods. Narrowing (stricture) of one or both of the ureters. A kidney blockage that you were born with. Past surgery on the kidney or the ureters, such as gastric bypass surgery. What increases the risk? You are more likely to develop this condition if: You have had a kidney stone in the past. You have a family history of kidney stones. You do not drink enough water. You eat a diet that is high in protein, salt (sodium), or sugar. You are overweight or very overweight (obese). What are the signs or symptoms? Symptoms of a kidney stone may include: Pain in the side of the belly, right below the ribs (flank pain). Pain usually spreads (radiates) to the groin. Needing to pee often or right away (urgently). Pain when going pee (urinating). Blood in your pee (hematuria). Feeling like you may vomit (nauseous). Vomiting. Fever and chills. How is this treated? Treatment depends on the size, location, and makeup of the kidney stones. The stones will often pass out of the body through peeing. You may need to: Drink more fluid to help pass the stone. In some cases, you may be given fluids through an IV tube put into one of your veins at the hospital. Take medicine for pain. Make changes in your diet to help keep kidney stones from coming back. Sometimes, medical procedures are needed to remove a kidney stone. This may involve: A procedure to break up kidney stones using a beam of light (laser) or shock waves. Surgery to remove the kidney stones. Follow these instructions at home: Medicines Take nhka-jme-vhazqda and prescription medicines only as told by your doctor. Ask your doctor if the medicine prescribed to you requires you to avoid driving or using heavy machinery. Eating and drinking Drink enough fluid to keep your pee pale yellow. You may be told to drink at least 8 10 glasses of water each day. This will help you pass the stone. If told by your doctor, change your diet. This may include: ?Limiting how much salt you eat. ?Eating more fruits and vegetables. ?Limiting how much meat, poultry, fish, and eggs you eat. Follow instructions from your doctor about eating or drinking restrictions. General instructions Collect pee samples as told by your doctor. You may need to collect a pee sample: ?24 hours after a stone comes out. ?8 12 weeks after a stone comes out, and every 6 12 months after that. Strain your pee every time you pee (urinate), for as long as told. Use the strainer that your doctor recommends. Do not throw out the stone. Keep it so that it can be tested by your doctor. Keep all follow-up visits as told by your doctor. This is important. You may need follow-up tests. How is this prevented? To prevent another kidney stone: Drink enough fluid to keep your pee pale yellow. This is the best way to prevent kidney stones. Eat healthy foods. Avoid certain foods as told by your doctor. You may be told to eat less protein. Stay at a healthy weight. Where to find more information National Kidney Foundation (NKF): www.kidney.org Urology Care Foundation (UCF): www.urologyhealth.org Contact a doctor if: You have pain that gets worse or does not get better with medicine. Get help right away if: You have a fever or chills. You get very bad pain. You get new pain in your belly (abdomen). You pass out (faint). You cannot pee. Summary Kidney stones are rock-like masses that form inside of the kidneys. Kidney stones can cause very bad pain and can block the flow of pee. The stones will often pass out of the body through peeing. Drink enough fluid to keep your pee pale yellow. This information is not intended to replace advice given to you by your health care provider. Make sure you discuss any questions you have with your health care provider. Document Released: 04/02/2009 Document Revised: 03/02/2020 Document Reviewed: 03/02/2020 [employer] Patient Education 2020 Attunity. Follow Up Care 12/28/2021 15:15:51 With:Sy AVITIA MD, URL Address: [address] [place], [place] [id number]- When: Unknown [facility] Evaluation + Plan note Note Date & Type Note Facility Evaluation + Plan note Future Appointments Appointment Date:03/02/2023 11:00:00 AM Scheduled Provider:Sy AVITIA MD Location:[facility] Appointment Type:URO Office Visit [facility] Evaluation + Plan note Note Date & Type Note Facility Evaluation + Plan note Future Appointments Appointment Date:03/02/2023 11:00:00 AM Scheduled Provider:Sy AVITIA MD Location:[facility] Appointment Type:URO Office Visit Diagnostic Tests PendingUrine Culture 08/11/22 [facility] Evaluation + Plan note Note Date & Type Note Facility Evaluation + Plan note Future Appointments Appointment Date:03/02/2023 11:00:00 AM Scheduled Provider:Sy AVITIA MD Location:[facility] Appointment Type:URO Office Visit Diagnostic Tests PendingUroVysion Fish and Urine Cyto ([facility]) 09/05/22 [facility] History of Present illness Narrative Note Date & Type Note Facility History of Present illness Narrative Patient returns in follow-up of problems as noted. In the interim she is done well. She has none of the symptoms of cardiomyopathy that preceded her original diagnosis of heart failure. With guideline directed therapy in the religion of maintenance of sinus rhythm her symptoms have resolved and most recent echocardiogram demonstrates improvement in ejection fraction. Because of this we suggest continued therapy as is. She is protected against risk of stroke not only with Multaq but chronic anticoagulant therapy. Treatment with medical therapy for her hyperlipidemia and blood pressure and cardiomyopathy appears to be adequate and appropriate because of this we suggest no adjustment or change in she will follow-up as noted. We did advocate the merits of diet exercise and weight loss. [facility] 250 DO Work Phone: History of Present illness Narrative Note Date & Type Note Facility History of Present illness Narrative Patient returns for follow-up of problems as noted. She is done well. She denies any angina CHF or arrhythmia symptomatology. She is tolerating Multaq therapy well in combination with anticoagulant therapy to mitigate risk of stroke. She denies any side effects from the medication or bleeding difficultiesWe also queried her on signs and/or symptoms of nonischemic cardiomyopathy. This was identified in the past. The potential for developing heart failure and/or malignant life-threatening arrhythmias was discussed and she was educated regarding symptoms of heart failure and ventricular arrhythmias to watch for and encouraged to call if they arise or occurIn regards to other risk factors it appears that her blood pressure and lipids are adequately controlled based upon review and consequently we will not further adjust her medical regimen and we suggest continued therapy as is. She also was educated regarding symptoms of bradycardia arrhythmia to watch for and encouraged to seek attention if they occurLastly we did advocate the merits of diet and weight loss. [facility] 250 DO Work Phone: Hospital course Narrative Note Date & Type Note Facility Hospital course Narrative No data available for this section [facility] Hospital Discharge instructions Note Date & Type Note Facility Hospital Discharge instructions No data available for this section [facility] Progress note Note Date & Type Note Facility Progress note No data available for this section [facility] Chief Complaint * I am doing ok * MIKY NOLEN is being seen for a 6 month follow-up of atrial fibrillation. She is ambulatory with steady gait. Last evaluated in clinic by Dr. Gallo December 2020. * Multaq is becoming cost prohibitive, she is looking into changing prescription coverage at the end of the year and will update me if unable to continue Multaq. She was provided with samples that wereavailable in the office. Dr. Gallo had previously discussed Tikosyn, it will be affordable and she understands hospitalization that was required. * She is a little anxious to change antiarrhythmic because she has been doing so well on Multaq . * Since last office visit she has had continued treatment for nephrolithiasis but denies any change in overall cardiovascular status. She reports being highly symptomatic with atrial fibrillation denies any type of recurrence. 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 There has been no change in exercise capacity or functional tolerance. MIKY NOLEN is being seen for a 6 month follow-up of.MIKY NOLEN is being seen for a 6 month follow-up of.MIKY NOLEN is being seen for a 9 month follow-up of. Family History No Family History Records FoundUnknown Family Member Name Dates Details Family history of acute myoc ardial infarction: Father, Sister(V17.3, Z82.49) Status:Active FH: CABG (coronary artery by pass surgery): Sister(V17.3, Z82.49) Status:Active Family history of cardiomyop athy: Brother(V17.49, Z82.49) Status:Active Unknown Family Member Name Dates Details Family history of cardiomyop athy: Brother(V17.49, Z82.49) Status:Active FH: CABG (coronary artery by pass surgery): Sister(V17.3, Z82.49) Status:Active Family history of acute myoc ardial infarction: Father, Sister(V17.3, Z82.49) Status:Active Unknown Family Member Name Dates Details Family history of acute myoc ardial infarction: Father, Sister(V17.3, Z82.49) Status:Active FH: CABG (coronary artery by pass surgery): Sister(V17.3, Z82.49) Status:Active Family history of cardiomyop athy: Brother(V17.49, Z82.49) Status:Active Unknown Family Member Name Dates Details Family history of acute myoc ardial infarction: Father, Sister(V17.3, Z82.49) Status:Active FH: CABG (coronary artery by pass surgery): Sister(V17.3, Z82.49) Status:Active Family history of cardiomyop athy: Brother(V17.49, Z82.49) Status:Active Unknown Family Member Name Dates Details Family history of acute myoc ardial infarction: Father, Sister(V17.3, Z82.49) Status:Active FH: CABG (coronary artery by pass surgery): Sister(V17.3, Z82.49) Status:Active Family history of cardiomyop athy: Brother(V17.49, Z82.49) Status:Active Unknown Family Member Name Dates Details Family history of acute myoc ardial infarction: Father, Sister(V17.3, Z82.49) Status:Active FH: CABG (coronary artery by pass surgery): Sister(V17.3, Z82.49) Status:Active Family history of cardiomyop athy: Brother(V17.49, Z82.49) Status:Active Summary Purpose Advance Directives No Advanced Directives Records FoundNo Advanced Directives Records FoundNo Advanced Directives Records FoundNo Advanced Directives Records FoundNo Advanced Directives Records Found Additional Source Comments INFORMATION SOURCE (unrecogn ized section and content) DATE CREATED AUTHOR 06/26/2022 [facility] DATE CREATED AUTHOR AUTHOR'S ORGANIZ ATION 12/07/2022 [facility] DATE CREATED AUTHOR AUTHOR'S ORGANIZ ATION 12/07/2022 [employer] DATE CREATED AUTHOR AUTHOR'S ORGANIZ ATION 03/09/2023 [facility] DATE CREATED AUTHOR AUTHOR'S ORGANIZ ATION 10/19/2023 Yuan Aguirre [facility] Care Team (unrecognized sect ion and content) Personnel Name: CONNOR JEAN BAPTISTE DO Address: [address] [place] [address] Personnel Name: CONNOR JEAN BAPTISTE DO Address: Address: [address] [place] [address] [place] Personnel Name: CONNOR JEAN BAPTISTE DO Address: Address: [address] [place] [id number] Personnel Name: CONNOR JEAN BAPTISTE DO Address: Address: [address] [place], [facility] [id number] US FOR RECORDS PERTAINING TO PATIENTS WHO ARE OR HAVE BEEN ENROLLED IN A CHEMICAL DEPENDENCY/SUBSTANCEABUSE PROGRAM, SOME INFORMATION MAY BE OMITTED. This clinical summary was aggregated from multiple sources. Caution should be exercised in using it in the provision of clinical care. This summary normalizes information from multiple sources, and as a consequence, information in this document may materially change the coding, format and clinical context of patient data. In addition, data may be omitted in some cases. CLINICAL DECISIONS SHOULD BE BASED ON THE PRIMARY CLINICAL RECORDS. [facility], [facility]. provides no warranty or guarantee of the accuracy or completeness of information in this document.
== END 2023-10-24 15:53 | disposition home or self-care (01) ==
LOC: RAD 15:52
PROVIDERS: Visit Provider Urology
DX: N20.0 Calculus of kidney (principal)
CPT/HCPCS: 74018

== ENCOUNTER 2023-11-01 11:14 | Outpatient (OUT) | payer MEDICARE, OTHER, SELFPAY ==
--- NOTE | 2023-11-01 11:15 | VEIN_ITS ---
[address] [address] Patient Name: MIKY NOLEN MRN: [id number] date: 1950 Sex: F Assigned Patient Location: Current Patient Location: Accession/Order Number: [id number] Exam Date: 11/01/2023 11:15 Report Date: 11/01/2023 12:11 At the request of: WILLARD GAMBOA Procedure: VC INJ Sclerosing SOLMULT Vein EXAMINATION: VC INJ Sclerosing SOLMULT Vein HISTORY: Pain due to varicose veins of bilateral legs I83.813 COMPARISON: No relevant comparison available. TECHNIQUE: The risks and benefits of the procedure were explained at length to the patient and informed written consent was obtained. was present and assisted. The procedure was performed under sterile technique. The patient's leg was wrapped with Coban and postprocedural verbal and written instructions provided. SCLEROSANT: 2 cc, 0.5% polidocanol VEIN(S) INJECTED: veins in the VISUALIZATION: Ultrasound was not used to visualize the sclerosant ANESTHESIA: Supercooled air COMPLICATIONS: None VEIN/VC INJ Sclerosing SOLMULT Vein IMPRESSION: Technically successful sclerotherapy as described Electronically authenticated by: WILLARD GAMBOA Date: 11/01/2023 12:11
--- OUTSIDE RECORDS SUMMARY | 2023-11-01 11:18 | XMS_ITS | CCD ---
Author Name Unknown Address [address] [place] [address] Organization [facility] Care Team Providers Care Health Insurance Specialist Name Role Phone Connor Jean Baptiste Unavailable Unavailable Unavailable CONNOR JEAN BAPTISTE Primary Care Physician [phone] Debra GOSS, Nick Dan Attending Unav ailable Debra GOSS, Nick Dan Referring [facility]av ailable [facility] U[facility]e Primary [facility] Unavailab le Markel, Connor Ugarte Primary Care Unavailab le [facility] GOSS, Nick Dan Attending Unav ailable [facility], Nick Dan Referring Unav ailable [facility] Ugarte Primary Care Unavailab le Mello, Dr. Nick Carter Attending Unava ilable Carrillo, VERO Garcia Referring Unavailable WEST, DR WILLARD Pittman Admitting Unavailable FURLONG, DR CONNOR Marinelli Primary Care Unavailable WEST, DR WILLARD Pittman Attending Unavailable WEST, DR WILLARD Pittman Admitting Unavailable WEST, DR WILLARD Pittman Consulting [facility] Marinelli Primary Care Unavailable WEST, DR WILLARD Pittman Attending Unavailable FURLONG, DR CONNOR Marinelli Primary Care Unavailable WEST, DR WILLARD Pittman Consulting Unavailable WEST, DR WILLARD Pittman Admitting Unavailable WEST, DR WILLARD Pittman Attending Unavailable MISC, DOCTOR Admitting Unavailable MISC, DOCTOR Attending Unavailable AVITIA ., DR DAN Consulting Unavailable FURKEYLANG, DR CONNOR Marinelli Primary Care Unavailable MISC, [...] DR DAN Admitting Unavailable AVITIA ., DR DNA Attending Unavailable AVITIA ., DR DAN Consulting [...] DR WILLARD Pittman Admitting Unavailable FURLONG, DR OCNNOR Marinelli Primary Care Unavailable WEST, DR WILLARD [...] WEST, DR WILLARD Pittman Attending Unavailable Zieber, Agsuto Consulting Unavailable WEST, DR WILLARD Pittman Consulting [...] Unavailable AVITIA ., DR DAN Consulting Unavailable [place], DR CONNOR Marinelli Primary Care Unavailable [place], DR WILLARD Pittman Consulting Unavailable [place], DR WILLARD Pittman Admitting Unavailable [place], DR CONNOR Marinelli Primary Care Unavailable [place], DR WILLARD Pittman Attending Unavailable [facility], DOCTOR Admitting Unavailable MIS, DOCTOR Attending Unavailable MIS, DOCTOR Consulting Unavailable MARKEL, DR CONNOR Marinelli Primary Care Unavailable Sy AVITIA Attending Unavailable Sy AVITIA Attending Unavailable Sy AVITIA Attending Unavailable DULCE ALCAZAR Attending Unavailab Sy Vasquez Attending Unavailable Allergies Allergy Classification Reported Allergen(s) Allergy Type Date of Onset Reaction(s) Facility (12 sources) Ciprofloxacin; Translations: [ciprofloxacin] Drug Allergy Eruption of skin (disorder) [facility] [place] (12 sources) Sulfonamides (Antibiotic); Translations: [Sulfa Drugs] Allergy to drug (finding) Eruption of skin (disorder) [facility] [place] (7 sources) corn extract; Translations: [Linneus] Drug Allergy Unknown (qualifier value) [facility] (5 sources) Dog; Translations: [Dogs] Allergy to substance Unknown (qualifier value) [facility] (6 sources) Mold Extract; Translations: [mold] Drug Allergy Unknown (qualifier value) [facility] (5 sources) Milk Products; Translations: [Milk Products] Food allergy Unknown (qualifier value) [facility] (5 sources) house dust mite allergen extract; Translations: [house dust mite allergen extra] Allergy to substance Unknown (qualifier value) [facility] (2 sources) Ciprofloxacin Drug Allergy 4 [facility] (1 source) house dust allergenic extract Drug Allergy [facility] (2 sources) Lactose Drug Allergy [facility] (1 source) Sulfonamides (Antibiotic) Drug allergy (disorder) [facility] Medications Current Medications Medication Drug [...] Daily, # 90 cap(s), Refills(s) 3, Pharmacy: [id number], 165, cm, 12/28/21 14:34:00 EST, Height/Length [...] procedure, # 2 cap(s), Refills(s) 0, Pharmacy: [id number], 165, cm, 06/30/22 11:48:00 EDT, Height/Length [...] 3 Ordered: 06-Dec-2022 Nick Richardson MD Active [place] 3 CAPS (7 sources) [place] 3 CAPS BASSAM E DIRECTED. Quantity: 0 Refills: 0 Ordered: 16-Aug-2021 DO Active rivaroxaban 20 mg oral tablet (11 sources) Factor Xa Inhibitor Start: 07-29-2019 take 1 tablet by mouth once daily Xarelto 20 MG Oral Tablet TAKE 1 TABLET BY MOUTH DAILY Quantity: 90 Refills: 3 Ordered: 22-Aug-2022 Zander Vizcaino APRN-Radha PHAM Start : 22-Aug-2022 Active Problems Active Problems [...] SURG AFTRCARE FLW SURG CIRC SYS] Onset: Episodic Other circulatory disease (7 sources) H/O: [...] Results Test Name Value Interpretation Reference Range Facil ity Ambulatory Visit Summaryon 1 Ambulatory Visit Summary MIKY NOLEN :1950 Visit Date:10/26/2023 Ambulatory Visit Instructions Your Diagnosis Ureteral stone with hydronephrosis Kidney stone Tests Performed Urnls Dip Stick Auto w/o Microscopy POC 02765 Your Care Team Attending Physician - Sy AVITIA MD Primary Care Physician - CONNOR JEAN BAPTISTE DO This Is Your Medications List allopurinol (allopurinol 300 mg Tab) potassium bicarbonate (K-Effervescent 25 mEq oral tablet, effervescent) Contact prescribing physician if questions or concerns Non-Formulary Medication (OTC joint supplement) acetaminophen (Tylenol 8 HR Arthritis Pain 650 mg oral tablet, extended release) calcium-vitamin D (Caltrate 600 + D) cholecalciferol (Vitamin D3) dronedarone (Multaq) levothyroxine (levothyroxine 137 mcg (0.137 mg) oral capsule) lisinopril (lisinopril 2.5 mg Tab) lovastatin (lovastatin 10 mg Tab) multivitamin with minerals (Centrum Silver) rivaroxaban (Xarelto 20 mg oral tablet) [Image Removed: STOP]Stop taking these medications tamsulosin (Flomax 0.4 mg Cap) Procedures Performed Cystoscopy (09/05/2022), Cystoscopy (11/30/2020), Cystoscopy (07/14/2020), Cystoscopy (07/08/2020), ESWL - Extracorporeal shock wave lithotripsy of bile duct calculus (07/17/2019), Gastric sleeve (10/29/2015), H/O: hysterectomy, Renal artery stent, Repair of ventral hernia. Discharge Vitals Heart Rate (Peripheral) 53 Respiratory Rate 16 Blood Pressure 146/76 Height 165 cm Height 65 in Weight 97.5 kg Weight 214.5 lb BMI 35.81 What to do next Scheduled Follow-Up Appointments Sunday 11:00 AM EST With: Where: [facility] Normal [address] [place] [address] [place] [address]- \.br\ You Need to Schedule the Following Appointments\.br\ Follow Up with MO HAYDEN, Sy Haddad, URL When: \.br\ Where:\.br\ [address] [facility]\.br\ [place] [address]-\.br\ Medications\.br\ What How Much When Instructions\.br\ New potassium bicarbonate (K-Effervescent 25 mEq oral tablet, effervescent) 1 Tablets By Mouth 2 times a day Refills: 11 Pickup at [facility]\.br\ Unchanged allopurinol (allopurinol 300 mg Tab) 1 Tablets By Mouth Every day\.br\ Unchanged acetaminophen (Tylenol 8 HR Arthritis Pain 650 mg oral tablet, extended release) 1 Tablets By Mouth 2 times a day Contact prescribing physician if questions or concerns \.br\ Unchanged calcium-vitamin D (Caltrate 600 + D) By Mouth 2 times a day Contact prescribing physician if questions or concerns \.br\ Unchanged cholecalciferol (Vitamin D3) 1,000 International unit By Mouth Every day Contact prescribing physician if questions or concerns \.br\ Unchanged dronedarone (Multaq) 400 Milligram By Mouth 2 times a day Contact prescribing physician if questions or concerns \.br\ Unchanged levothyroxine (levothyroxine 137 mcg (0.137 mg) oral capsule) 1 Capsules By Mouth Every day Contact prescribing physician if questions or concerns \.br\ Unchanged lisinopril (lisinopril 2.5 mg Tab) Contact prescribing physician if questions or concerns \.br\ Unchanged lovastatin (lovastatin 10 mg Tab) Contact prescribing physician if questions or concerns \.br\ Unchanged multivitamin with minerals (Centrum Silver) 1 Tablets By Mouth Every day Contact prescribing physician if questions or concerns \.br\ Unchanged Non-Formulary Medication (OTC joint supplement) one tab By Mouth Every day Contact prescribing physician if questions or concerns \.br\ Unchanged rivaroxaban (Xarelto 20 mg oral tablet) 1 Tablets Every day Contact prescribing physician if questions or concerns \.br\ Pharmacy Information\.br\ [facility]: [address] [place], [place] [id number] [phone]\.br\ \.br\ What How Much When Why Comments\.br\ Stop Taking tamsulosin (Flomax 0.4 mg Cap) 1 Capsules By Mouth Every day Right flank pain Kidney stones Gross hematuria\.br\ Test Results\.br\ Urnls Dip Stick Auto w/o Microscopy POC 34628 (10/26/2023)\.br\ Bilirubin Urine Dipstick - Negative\.br\ Blood Urine Dipstick - 3+ Large\.br\ Glucose Urine Dipstick - Negative\.br\ Ketones Urine Dipstick - Negative\.br\ Leukocytes Urine Dipstick - Negative\.br\ Nitrite Urine Dipstick - Negative\.br\ Protein Urine Dipstick - 2+ (100 mg/dl)\.br\ Specific [place] Urine Dipstick - 1.025\.br\ Urine Appearance Urine Dipstick - Slightly cloudy\.br\ Urine Color Urine Dipstick - Yellow\.br\ Urobilinogen Urine Dipstick - Normal 0.2-1 EU/dl\.br\ pH Urine Dipstick - 5\.br\ Allergies\.br\ Linneus (Unknown)\.br\ Dogs (Unknown)\.br\ Milk Products (Unknown)\.br\ Mold (Unknown)\.br\ ciprofloxacin (Rash)\.br\ house dust mite allergen extract (Unknown)\.br\ sulfa drugs (Rash)\.br\ Problems\.br\ Ongoing - Any problem that you are currently receiving treatment for.\.br\ Abnormal abdominal CT scan\.br\ Anticoagulated\.b r\ Asymptomatic microscopic hematuria\.br\ BMI 40.0-44.9, adult\.br\ BMI 45.0-49.9, adult\.br\ Cholelithiasis\.b r\ Diabetes\.br\ Enterobacter sepsis\.br\ Gross hematuria\.br\ History of kidney stones\.br\ Hypertension\.br\ Hypothyroidism\.b r\ Irregular heart beat\.br\ Kidney stone\.br\ Nocturia\.br\ Stress incontinence\.br\ Ureteral stone\.br\ Ureteral stone with hydronephrosis\.b r\ Urinary frequency\.br\ Urinary urgency\.br\ UTI (urinary tract infection)\.br\ Patient Survey\.br\ You may receive a survey via text or e-mail asking about your office visit. Please share your experience with us by completing your survey. We appreciate your feedback and thank you for choosing us for your care.\.br\ Education Materials\.br\ Dietary Guidelines to Help Prevent Kidney Stones\.br\ Kidney stones are deposits of minerals and salts that form inside your kidneys. Your risk of developing kidney stones may be greater depending on your diet, your lifestyle, the medicines you take, and whether you have certain medical conditions. Most people can lower their risks of developing kidney stones by following these dietary guidelines. Your dietitian may give you more specific instructions depending on your overall health and the type of kidney stones you tend to develop.\.br\ What are tips for following this plan?\.br\ Reading food labels\.br\ \.br\ ? \.br\ Choose foods with no salt added or low-salt labels. Limit your salt (sodium) intake to less than 1,500 mg a day.\.br\ ? \.br\ Choose foods with calcium for each meal and snack. Try to eat about 300 mg of calcium at each meal. Foods that contain 200?500 mg of calcium a serving include:\.br\ ? \.br\ 8 oz (237 mL) of milk, calcium-fortified non-dairy milk, and calcium-fortified fruit juice. Calcium-fortified means that calcium has been added to these drinks.\.br\ ? \.br\ 8 oz (237 mL) of kefir, yogurt, and soy yogurt.\.br\ ? \.br\ 4 oz (114 g) of tofu.\.br\ ? \.br\ 1 oz (28 g) of cheese.\.br\ ? \.br\ 1 cup (150 g) of dried figs.\.br\ ? \.br\ 1 cup (91 g) of cooked broccoli.\.br\ ? \.br\ One 3 oz (85 g) can of sardines or mackerel.\.br\ Most people need 1,000?1,500 mg of calcium a day. Talk to your dietitian about how much calcium is recommended for you.\.br\ Shopping\.br\ ? \.br\ Buy plenty of fresh fruits and vegetables. Most people do not need to avoid fruits and vegetables, even if these foods contain nutrients that may contribute to kidney stones.\.br\ ? \.br\ When shopping for convenience foods, choose:\.br\ ? \.br\ Whole pieces of fruit.\.br\ ? \.br\ Pre-made salads with dressing on the side.\.br\ ? \.br\ Low-fat fruit and yogurt smoothies.\.br\ ? \.br\ Avoid buying frozen meals or prepared deli foods. These can be high in sodium.\.br\ ? \.br\ Look for foods with live cultures, such as yogurt and kefir.\.br\ ? \.br\ Choose high-fiber grains, such as whole-wheat breads, oat bran, and wheat cereals.\.br\ Cooking\.br\ ? \.br\ Do not add salt to food when cooking. Place a salt shaker on the table and allow each person to add their own salt to taste.\.br\ ? \.br\ Use vegetable protein, such as beans, textured vegetable protein (TVP), or tofu, instead of meat in pasta, casseroles, and soups.\.br\ Meal planning\.br\ ? \.br\ Eat less salt, if told by your dietitian. To do this:\.br\ ? \.br\ Avoid eating processed or pre-made food.\.br\ ? \.br\ Avoid eating fast food.\.br\ ? \.br\ Eat less animal protein, including cheese, meat, poultry, or fish, if told by your dietitian. To do this:\.br\ ? \.br\ Limit the number of times you have meat, poultry, fish, or cheese each week. Eat a diet free of meat at least 2 days a week.\.br\ ? \.br\ Eat only one serving each day of meat, poultry, fish, or seafood.\.br\ ? \.br\ When you prepare animal proteins, cut pieces into small portion sizes. For most meat and fish, one serving is about the size of the palm of your hand.\.br\ ? \.br\ Eat at least five servings of fresh fruits and vegetables each day. To do this:\.br\ ? \.br\ Keep fruits and vegetables on hand for snacks.\.br\ ? \.br\ Eat one piece of fruit or a handful of berries with breakfast.\.br\ ? \.br\ Have a salad and fruit [facility] Patient Educationon 10-26-20 Patient Education Nephrology Dietary Guidelines to Help Prevent Kidney Stones Kidney stones are deposits of minerals and salts that form inside your kidneys. Your risk of developing kidney stones may be greater depending on your diet, your lifestyle, the medicines you take, and whether you have certain medical conditions. Most people can lower their risks of developing kidney stones by following these dietary guidelines. Your dietitian may give you more specific instructions depending on your overall health and the type of kidney stones you tend to develop. What are tips for following this plan? Reading food labels ? Choose foods with no salt added or low-salt labels. Limit your salt (sodium) intake to less than 1,500 mg a day. ? Choose foods with calcium for each meal and snack. Try to eat about 300 mg of calcium at each meal. Foods that contain 200?500 mg of calcium a serving include: ? 8 oz (237 mL) of milk, calcium-fortifiednon- dairy milk, and calcium-fortifiedfrui t juice. Calcium-fortified means that calcium has been added to these drinks. ? 8 oz (237 mL) of kefir, yogurt, and soy yogurt. ? 4 oz (114 g) of tofu. ? 1 oz (28 g) of cheese. ? 1 cup (150 g) of dried figs. ? 1 cup (91 g) of cooked broccoli. ? One 3 oz (85 g) can of sardines or mackerel. Most people need 1,000?1,500 mg of calcium a day. Talk to your dietitian about how much calcium is recommended for you. Shopping ? Buy plenty of fresh fruits and vegetables. Most people do not need to avoid fruits and vegetables, even if these foods contain nutrients that may contribute to kidney stones. ? When shopping for convenience foods, choose: ? Whole pieces of fruit. ? Pre-made salads with dressing on the side. ? Low-fat fruit and yogurt smoothies. ? Avoid buying frozen meals or prepared deli foods. These can be high in sodium. ? Look for foods with live cultures, such as yogurt and kefir. ? Choose high-fiber grains, such as whole-wheat breads, oat bran, and wheat cereals. Cooking ? Do not add salt to food when cooking. Place a salt shaker on the table and allow each person to add their own salt to taste. ? Use vegetable protein, such as beans, textured vegetable protein (TVP), or tofu, instead of meat in pasta, casseroles, and soups. Meal planning ? Eat less salt, if told by your dietitian. To do this: ? Avoid eating processed or pre-made food. ? Avoid eating fast food. ? Eat less animal protein, including cheese, meat, poultry, or fish, if told by your dietitian. To do this: ? Limit the number of times you have meat, poultry, fish, or cheese each week. Eat a diet free of meat at least 2 days a week. ? Eat only one serving each day of meat, poultry, fish, or seafood. ? When you prepare animal proteins, cut pieces into small portion sizes. For most meat and fish, one serving is about the size of the palm of your hand. ? Eat at least five servings of fresh fruits and vegetables each day. To do this: ? Keep fruits and vegetables on hand for snacks. ? Eat one piece of fruit or a handful of berries with breakfast. ? Have a salad and fruit at lunch. ? Have two kinds of vegetables at dinner. ? You may be told to limit foods that are high in a substance called oxalate. These include: ? Spinach (cooked), rhubarb, beets, sweet potatoes, and Czech chard. ? Peanuts. ? Potato chips, malagasy fries, and baked potatoes with skin on. ? Nuts and nut products. ? Chocolate. ? If you regularly take a diuretic medicine, make sure to eat at least 1 or 2 servings of fruits or vegetables that are high in potassium each day. These include: ? Avocado. ? Banana. ? [place], prune, carrot, or tomato juice. ? Baked potato. ? Cabbage. ? Beans and split peas. Lifestyle ? Drink enough fluid to keep your urine pale yellow. This is the most important thing you can do. Spread your fluid intake throughout the day. ? If you drink alcohol: ? Limit how much you have to: ? 0?1 drink a day for women who are not . ? 0?2 drinks a day for men. ? Know how much alcohol is in your drink. In the [place] one drink equals one 12 oz bottle of beer (355 mL), one 5 oz glass of wine (148 mL), or one 1? oz glass of hard liquor (44 mL). ? Lose weight if told by your health care provider. Work with your dietitian to find an eating plan and weight loss strategies that work best for you. General information ? Talk to your health care provider and dietitian about taking daily supplements. Depending on your health and the cause of your kidney stones, you may be told: ? Do not take high-dose supplements of vitamin C (1,000 mg a day or more). ? To take a calcium supplement. ? To take a daily probiotic supplement. ? To take other supplements such as magnesium, fish oil, or vitamin B6. ? Take lytz-wcw-unsjrgx and prescription medicines only as told by your health care provider. These include supplements. What foods sh (more content not included)... Normal [facility] RAD - MISCon 10-26-2023 RAD [facility] [id number] .00TIFF Normal [facility] [id number] .00TIFF Normal [facility] Urology Office/Clinic Noteon 10-26-2023 Urology Office/Clinic Note Chief Complaint CT Review HPI Staff 2 wk f/u with KUB. Saw DAXA at prior OV. Previous Dx: R flank pain, kidney stones, gross hematuria. S/p ESWL 11/18/20. CT AP wo con done 10/11/23 at [facility].Was given Tamsulosin, however stopped taking after a few days due to it making her have upset stomach. *Allopurinol 300mg qd therapy. KUB 10/24/23 Denies blood in urine since last seen in our office. Has not noticed if she passed stone. Had been straining during the day, not during the night. Denies flank pain. History of Present Illness Tests reviewed: reviewed UA, CT, KUB I have reviewed the previous health record information and history for this patient from Dr. Avitai. I have reviewed and verified the staff HPI to be accurate for this encounter. There have been no associated fever, chills, flank pain, or blood in the urine. Denies any urinary infections since last encounter. Review of Systems PHQ Score Initial Depression Screen Score: 0 SCORE ROS - Provider Constitutional: denies weight loss, [...] HPI. Physical Exam Vitals & Measurements HR: 53(Peripheral) RR: 16 BP: 146/76 HT: 65 in HT: 165 cm WT: 97.5 kg WT: 214.5 lb BMI: 35.81 General Appearance: alert , no acute distress, well nourished, well developed female. Genitourinary: bladder nonpalpable, no flank pain. Assessment/Plan Last saw DAXA 10/09/23. 1. Ureteral stone with hydronephrosis (N13.2: Hydronephrosis with renal and ureteral calculous obstruction) CT AP wo con 10/11/23 mild right hydronephrosis due to a 9 mm stone near the right UPJ. There is mild left hydronephrosis with a 5 mm proximal left ureteral stone at the L4 level. KUB 10/24/23 no ureteral stones seen. Most likely uric acid. Urine pH today 5.0 Taking Allopurinol 300mg qd. When pt was seen 10/09/23, pt was having intermittent right flank pain w/ gross hematuria. Pain and hematuria has since resolved. UA today shows large blood. Has been straining urine, has not seen any stones. Pt is not interested in taking Flomax due to family member passing away after taking Flomax. Discussed medications to improve pH. Pt agreeable to starting a medication. -Start Effer-K 25mEq bid, sent to pharm on file -Cont straining urine, adequate water intake -Nurse visit in 2 months to check urine pH Follow up in 6 months or sooner if needed. All questions/concerns were discussed. Pt. to call the office if sheencounters any issues prior. Pt. acknowledges understanding. 2. Kidney stone (N20.0: Calculus of kidney) Hx of multiple lithotripsies in the past. CT AP wo con 10/11/23 Multiple additional smaller right renal calculi are noted. Two punctate 1 mm left renal calculi are suggested. KUB 10/24/23 bilateral nephrolithiasis. See #1. Follow-up With When Contact Information MO HAYDEN, Sy Haddad, URL [address] [id number]- Additional Instructions: 6 months Patient Education Dietary Guidelines to Help Prevent Kidney Stones I, Chantal Bishop, personally scribed for Dr. Avitia on 10/26/2023 09:08:12. . Documentation recorded by the scribe, Chantal Bishop, accurately reflects the services(s) I performed and decisions made by me. Authenticated by Dr. Avitia on 10/26/2023 09:11:26. Problem List/Past Medical History Ongoing Abnormal abdominal CT scan Anticoagulated Asymptomatic microscopic hematuria BMI 40.0-44.9, adult BMI 45.0-49.9, adult Cholelithiasis Diabetes Enterobacter sepsis Gross hematuria History of kidney stones Hypertension Hypothyroidism Irregular heart beat Kidney stone Nocturia Stress incontinence Ureteral stone Ureteral stone with hydronephrosis Urinary frequency Urinary urgency UTI (urinary tract [...] mg Cap, 0.4 mg= 1 cap(s), Oral, Daily, Not taking: Made her sick to her stomach levothyroxine 137 mcg (0.137 mg) oral capsule, 137 mcg= 1 cap(s), Oral, Daily lisinopril 2.5 mg Tab lovastatin 10 mg Tab Multaq, 400 mg, Oral, BID OTC joint sup (more content not included)... Normal [facility] Comment on above: Result Comment: Elec tronically Signed By: Sy AVITIA MD\.br\Date and Time Signed: 10/26/23 09:11 EST\.br\Electronically Co-Signed By: Chantal Bishop.jaison\Date and Time Co-Signed: 10/26/23 09:09 EST RAD - CT Reporton 10-16-2023 RAD - CT Report [id number] Normal [facility] RAD - CT Reporton 10-15-2023 RAD - CT Report [id number] .00TI[address] Normal [facility] [id number] .00TIFF Normal [facility] [id number] .00TIFF Normal [facility] Ambulatory Visit Summaryon 1 12-10-2022 Ambulatory Visit Summary MIKY NOLEN :1950 Visit Date:10/09/2023 Ambulatory Visit Instructions Your Diagnosis Gross hematuria Right flank pain Tests Performed Urnls Dip Stick Auto w/o Microscopy POC 98076 Your Care Team Attending Physician - DROA ALCAZAR PA-C Primary Care Physician - CONNOR JEAN BAPTISTE DO This Is Your Medications [...] Urnls Dip Stick Auto w/o Microscopy POC 50672 (10/09/2023) Bilirubin Urine Dipstick - Negative Blood Urine Dipstick - 3+ Large Glucose Urine Dipstick - Negative Ketones Urine Dipstick - Negative Leukocytes Urine Dipstick - Negative Nitrite Urine Dipstick - Negative Protein Urine Dipstick - 3+ (300 mg/dl) Specific Blakeslee Urine Dipstick - >=1.030 Urine Appearance Urine Dipstick - Clear Urine Color Urine Dipstick - Yellow Urobilinogen Urine Dipstick - Normal 0.2-1 EU/dl pH Urine Dipstick - 5.5 Allergies Linneus (Unknown) Dogs (Unknown) Milk Products (Unknown) Mold [...] for choosing us for your care. Normal [facility] Patient Educationon 10-09-20 Patient Education Urology [...] these instructions at home: Medicines ? Take bwmy-tdw-dhfzwsz and prescription medicines only as told by [...] the blood stops without treatment. ? Take bpda-hmg-mugrhhm and prescription medicines only as told by your health care provider. ? Drink enough fluid to keep your urine pale yellow. This information is not intended to replace advice given to you by your health care provider. Make sure you discuss any questions you have with your health care provider. Document Revised: 06/15/2021 Document Reviewed: 06/15/2021 [employer] Patient Education ? 2022 [employer] [facility] Urology Office/Clinic Noteon 10-09-2023 Urology Office/Clinic [...] mild and moderate. does not radiate. no nausea/vomiting/fever /chills +gross hematuria x3d, has since resolved feels [...] Daily, # 30 cap(s), Refills(s) 0, Pharmacy: [facility], 165, cm, 10/09/23 15:24:00 EST, Height/Length Dosing, 113, kg, 10/09/23 15:24:00 EST, Weight Dosing CT Abdomen w/o Contrast E&M of Est. Patient Moderate 30-39 Min 86809 2. Kidney stones (N20.0: Calculus of kidney) see #1 KUB from this spring showed several medium (6-7mm) R renal stones has had multiple lithotripsy in past Ordered: tamsulosin, 0.4 mg = 1 cap(s), Oral, Daily, # 30 cap(s), Refills(s) 0, Pharmacy: [facility], 165, cm, 10/09/23 15:24:00 EST, Height/Length Dosing, 113, kg, 10/09/23 15:24:00 EST, Weight Dosing CT Abdomen w/o Contrast E&M of Est. Patient Moderate 30-39 Min 66133 3. Gross hematuria (R31.0: Gross hematuria) see #1 Ordered: tamsulosin, 0.4 mg = 1 cap(s), Oral, Daily, # 30 cap(s), Refills(s) 0, Pharmacy: [facility] #[facility], 165, cm, 10/09/23 15:24:00 EST, Height/Length Dosing, 113, kg, 10/09/23 15:24:00 EST, Weight Dosing CT Abdomen w/o Contrast E&M of Est. Patient Moderate 30-39 Min 51243 Urnls Dip Stick Auto w/o Microscopy POC 33435 Follow-up With When Contact Information INGE CARDONA, DORA [place], URL [address] [place] [address] [employer] (1) Additional Instructions: pending results of imaging/testing, [...] Oral, B (more content not included)... Normal [facility] Comment on above: Result Comment: Elec tronically Signed By: DORA ALCAZAR PA-C\Date and Time Signed: 10/09/23 15:49 EST Urine Cytology ([facility])on 0 03-13-2023 Urine Cytology Diagnosis Info Invalid Interpretation Code [facility] Comment on above: Result Comment: A:Ur [...] on: 03/13/2023 08:02:13 Performed By: #### 1 [id number] ####[facility] [address] [place] [address] Lab Reportson 03-07-2023 Lab Reports [id number]#1 .00CD:127 Normal [facility] Lab Reports [id number]# 1.00CD:127 Normal [facility] RAD - CT Reporton 03-07-2023 RAD - CT Report [id number]#1 .00CD:127 Normal [facility] RAD - MISCon 03-07-2023 RAD - MISC [id number]#1 .00CD:127 Normal [facility] CREATININEon 03-05-2023 Creatinine [Mass/Vol] 1.16 mg/dL Critically high 0.55-1.02 [facility] Comment on above: Performed By: #### C AIYANA #### [facility] [address] [place], [place] [address] Dr. Alysha Machuca EGFR-AF SAMMARINESE 56 mL/min/1.73m2 Critically low >=60 [facility] Comment on above: Performed By: #### C AIYANA #### [facility] [address], [place] [address] Dr. Alysha Machuca EGFR-NON AF SAMMARINESE 46 mL/min/1.73m2 Critically low >=60 [facility] Comment on above: Performed By: #### C AIYANA #### [facility] [address], [place] [address] ABD/PELVIS WO CONon [...] by: AGUSTO BLANC Date: 2023-03-05 15:08 Normal [facility] Patient Educationon 03-02-20 23 Patient Education [...] these instructions at home: Medicines ? Take wqqg-dzw-ujbthga and prescription medicines only as told by [...] provider. Document Revised: 06/19/2022 Document Reviewed: 06/19/2022 [employer] Patient Education ? 2022 [employer]. Normal [facility] Urine Cytology ([facility])on 0 03-02-2023 Method of Extraction Voided Normal [facility] Comment on above: Performed By: #### 1 [id number] ####[facility] [address] [place] [address] Number of Jars 1 Invalid Interpretation Code [facility] Comment on above: Performed By: #### 1 [id number] ####[facility] [address] [place] [address] Specimen Urine Normal [facility] Comment on above: Performed By: #### 1 [id number] ####[facility] [address] [place] [address] Type of Service Technical Only Normal [facility] Comment on above: Performed By: #### 1 [id number] ####[facility] [address] [place] [address] Urology Office/Clinic Noteon 03-02-2023 Urology Office/Clinic Note [...] When Contact Information [place] HAYDEN, Sy Haddad, [place] [address]- Additional Instructions: schedule CT Patient Education Kidney Stones, Gmbn-wv-Vgii I, Chantal Bishop, personally scribed for Dr. [...] Tab lovastati (more content not included)... Normal [facility] Comment on above: Result Comment: Elec tronically Signed By: Sy AVITIA MD\.br\Date and Time Signed: 03/02/23 13:00 EDT\.br\Electronically Co-Signed By: Chantal Bishop.br\Date and Time Co-Signed: 03/02/23 12:57 EDT VITAMIN B1 (THIAMINE)on 01-28 Vit. B1, Whole Blood 132.2 nmol/L Normal 66.5-200.0 [facility] Comment on above: Performed By: #### V ITB1T ####[facility] [address] [place] [address]Dr. Alysha Machuca CBC AUTO DIFFon 02-20-2023 BASO # 0.1 103/ul Normal 0.0-0.1 [facility] Comment on above: Performed By: #### C BC #### [facility] [address] [place] [address] [address] Alysha Machuca Basophils/100 WBC (Bld) 0.9 % Normal 0.2-2.0 [facility] Comment on above: Performed By: #### C BC #### [facility] [address] [place] [address] [address] Alysha Machuca EO # 0.2 103/ul Normal 0.0-0.7 [facility] Comment on above: Performed By: #### C BC #### [facility] [address] [place] [address] [address] Alysha Machuca Eosinophils/100 WBC (Bld) 3.0 % Normal 0.9-7.0 [facility] Comment on above: Performed By: #### C BC #### [facility] [address] [place] [address] Dr. Alysha Machuca Erythrocyte distribution width (RBC) [Ratio] 13.9 % Normal 11.0-15.0 [facility] Comment on above: Performed By: #### C BC #### [facility] [address] [place] [address] Dr. Alysha Machuca Hematocrit (Bld) [Volume fraction] 39.5 % Normal 36.0-48.0 [facility] Comment on above: Performed By: #### C BC #### [facility] [address] [place] [address] Dr. Alysha Machuca Hemoglobin (Bld) [Mass/Vol] 12.7 g/dL Normal 12.0-16.0 [facility] Comment on above: Performed By: #### C BC #### [facility] [address] [place] [address] Dr. Alysha Machuca IG # 0.01 10e3/ul Normal 0.00-0.03 [facility] Comment on above: Performed By: #### C BC #### [facility] [address] [place] [address] Dr. Alysha Machuca IG % 0.2 % Normal 0.0-0.5 [facility] Comment on above: Performed By: #### C BC #### [facility] [address] [place] [address] Dr. Alysha Machuca LYMPH # 1.7 103/ul Normal 1.2-3.8 [facility] Comment on above: Performed By: #### C BC #### [facility] [address] [place] [address] Dr. Alysha Machuca Lymphocytes/100 WBC (Bld) 30.7 % Normal 20.5-60.0 [facility] Comment on above: Performed By: #### C BC #### [facility] [address] [place] [address] Dr. Alysha Machuca MANUAL DIFF REQ NO Normal [facility] Comment on above: Performed By: #### C BC #### [facility] [address] [place] [address] Dr. Alysha Machuca MCH (RBC) [Entitic mass] 29.3 pg Normal 26.7-34.0 [facility] Comment on above: Performed By: #### C BC #### [facility] [address] [place] [address] Dr. Alysha Machuca MCHC (RBC) [Mass/Vol] 32.2 g/dL Normal 29.9-35.2 [facility] Comment on above: Performed By: #### C BC #### [facility] [address] [place] [address] Dr. Alysha Machuca MCV (RBC) [Entitic vol] 91.0 fL Normal 81.0-99.0 [facility] Comment on above: Performed By: #### C BC #### [facility] [address] [place] [address] Dr. Alysha Machuca MONO # 0.4 103/ul Normal 0.3-0.8 [facility] Comment on above: Performed By: #### C BC #### [facility] [address] [place] [address] Dr. Alysha Machuca Monocytes/100 WBC (Bld) 6.8 % Normal 1.7-12.0 [facility] Comment on above: Performed By: #### C BC #### [facility] [address] [place] [address] Dr. Alysha Machuca NEUT # 3.3 103/ul Normal 1.4-6.5 [facility] Comment on above: Performed By: #### C BC #### [facility] [address] [place] [address] Dr. Alysha Machuca Neutrophils/100 WBC (Bld) 58.4 % Normal 43.0-75.0 [facility] Comment on above: Performed By: #### C BC #### [facility] [address] [place] [address] Dr. Alysha Machuca Platelet mean volume (Bld) [Entitic vol] 9.3 fL Critically low 9.5-13.5 [facility] Comment on above: Performed By: #### C BC #### [facility] [address] [place] [address] [address] Alysha Machuca PLT 186 103/ul Normal 150-450 [facility] Comment on above: Performed By: #### C BC #### [facility] [address] [place] [address] [address] Alysha Machuca RBC 4.34 106/ul Normal 4.20-5.40 [facility] Comment on above: Performed By: #### C BC #### [facility] [address] [place] [address] [address] Alysha Machuca WBC 5.6 103/ul Normal 4.0-11.0 [facility] Comment on above: Performed By: #### C BC #### [facility] [address] [place] [address] [address] Alysha Machuca FERRITINon 02-20-2023 Ferritin [Mass/Vol] 36.0 ng/mL Normal 8.0-252.0 [facility] Comment on above: Performed By: #### F ERR, B12FOL, FETIBC, VITAD ####[facility] [address] [place] [address]Dr. Alysha Machuca IRON AND TIBCon 02-20-2023 % SATURATION 15.8 % Normal [facility] Comment on above: Performed By: #### F ERR, B12FOL, FETIBC, VITAD ####[facility] [address] [place] [address]Dr. Alyhsa Machuca Iron [Mass/Vol] 53.0 ug/dL Normal 50.0-170.0 [facility] Comment on above: Performed By: #### F ERR, B12FOL, FETIBC, VITAD ####[facility] [address] [place] [address]Dr. Alysha Machuca TIBC DIRECT 335.0 ug/dL Normal 250.0-450.0 [facility] Comment on above: Performed By: #### F ERR, B12FOL, FETIBC, VITAD ####[facility] [address] [place] [address]Dr. Alysha Machuca MAGNESIUMon 02-20-2023 Magnesium [Mass/Vol] 1.9 mg/dL Normal 1.8-2.4 [facility] Comment on above: Performed By: #### P HOS, CMP, MG #### [facility] [address] [place] [address] Dr. Alysha Machuca PHOSPHORUSon 02-20-2023 Phosphate [Mass/Vol] 3.9 mg/dL Normal 2.6-4.7 [facility] Comment on above: Performed By: #### P HOS, CMP, MG #### [facility] [address] [place] [address] Dr. Alysha Machuca PROF 14(COMP METB)on 023 Albumin [Mass/Vol] 3.4 g/dL Normal 3.4-5.0 [facility] Comment on above: Performed By: #### P HOS, CMP, MG #### [facility] [address] [place] [address] Dr. Alysha Machuca Albumin/Globulin [Mass ratio] 0.9 {ratio} Normal [facility] Comment on above: Performed By: #### P HOS, CMP, MG #### [facility] [address] [place] [address] Dr. Alysha Machuca ALP [Catalytic activity/Vol] 123 U/L Critically high 46-116 [facility] Comment on above: Performed By: #### P HOS, CMP, MG #### [facility] [address] [place] [address] Dr. Alysha Machuca ALT [Catalytic activity/Vol] 21 U/L Normal 14-59 [facility] Comment on above: Performed By: #### P HOS, CMP, MG #### [facility] [address] [place] [address] Dr. Alysha Machuca Anion gap [Moles/Vol] 13.8 mmol/L Normal [facility] Comment on above: Performed By: #### P HOS, CMP, MG #### [facility] [address] [place] [address] Dr. Alysha Machuca AST [Catalytic activity/Vol] 15 U/L Normal 15-37 [facility] Comment on above: Performed By: #### P HOS, CMP, MG #### [facility] [address] [place] [address] [address] Alysha Machuca Bilirubin [Mass/Vol] 0.5 mg/dL Normal 0.2-1.0 [facility] Comment on above: Performed By: #### P HOS, CMP, MG #### [facility] [address] [place] [address] Dr. Alysha Machuca Calcium [Mass/Vol] 9.6 mg/dL Normal 8.5-10.1 [facility] Comment on above: Performed By: #### P HOS, CMP, MG #### [facility] [address] [place] [address] Dr. Alysha Machuca Chloride [Moles/Vol] 103 mmol/L Normal 98-107 [facility] Comment on above: Performed By: #### P HOS, CMP, MG #### [facility] [address] [place] [address] Dr. Alysha Machuca CO2 [Moles/Vol] 25.2 mmol/L Normal 21.0-32.0 [facility] Comment on above: Performed By: #### P HOS, CMP, MG #### [facility] [address] [place] [address] Dr. Alysha Machuca Creatinine [Mass/Vol] 0.95 mg/dL Normal 0.55-1.02 [facility] Comment on above: Performed By: #### P HOS, CMP, MG #### [facility] [address] [place] [address] Dr. Alysha Machuca EGFR-AF SAMMARINESE >60 Normal >=60 [facility] Comment on above: Performed By: #### P HOS, CMP, MG #### [facility] [address] [place] [address] Dr. Alysha Machuca EGFR-NON AF SAMMARINESE 58 mL/min/1.73m2 Critically low >=60 [facility] Comment on above: Performed By: #### P HOS, CMP, MG #### [facility] [address] [place] [address] Dr. Alysha Machuca Globulin (S) [Mass/Vol] 3.6 g/dL Normal [facility] Comment on above: Performed By: #### P HOS, CMP, MG #### [facility] [address] [place] [address] Dr. Alysha Machuca Glucose [Mass/Vol] 96 mg/dL Normal 74-106 [facility] Comment on above: Performed By: #### P HOS, CMP, MG #### [facility] [address] [place] [address] Dr. Alysha Machuca Potassium [Moles/Vol] 4.0 mmol/L Normal 3.5-5.1 [facility] Comment on above: Performed By: #### P HOS, CMP, MG #### [facility] [address] [place] [address] Dr. Alysha Machuca Protein [Mass/Vol] 7.0 g/dL Normal 6.4-8.2 [facility] Comment on above: Performed By: #### P HOS, CMP, MG #### [facility] [address] [place] [address] Dr. Alysha Machuca Sodium [Moles/Vol] 138 mmol/L Normal 136-145 [facility] Comment on above: Performed By: #### P HOS, CMP, MG #### [facility] [address] [place] [address] Dr. Alysha Machuca Urea nitrogen [Mass/Vol] 21.0 mg/dL Critically high 7.0-18.0 [facility] Comment on above: Performed By: #### P HOS, CMP, MG #### [facility] [address] [place] [address] Dr. Alysha Machuca Urea nitrogen/Creatini ne [Mass ratio] 22.1 mg/mg Normal [facility] Comment on above: Performed By: #### P HOS, CMP, MG #### [facility] [address] [place] [address] Dr. Alysha Machuca VIT B12 AND FOLATEon 023 Cobalamin (Vitamin B12) [Mass/Vol] 652.0 pg/mL Normal 193.0-986.0 [facility] Comment on above: Performed By: #### F ERR, B12FOL, FETIBC, VITAD ####[facility] [address] [place], [place] [address]Rp. Alysha Machuca FOLATE 18.30 ng/mL Normal 8.60-58.90 [facility] Comment on above: Performed By: #### F ERR, B12FOL, FETIBC, VITAD ####[facility] [address] [place] [id number]. Alysha Machuca VITAMIN D 25 OHon 02-20-2023 VIT D 25-OH 41.7 ng/mL Normal [facility] Comment on above: Performed By: #### F ERR, B12FOL, FETIBC, VITAD ####[facility] [address] [place] [id number]. Alysha Machuca VIT D RANGES SEE BELOW Normal [facility] Comment on above: Result Comment: <20 ng/mL Vit D deficient 20 - <30 ng/mL Vit D insufficient 30 - 100 ng/mL Vit D sufficient >100 ng/mL Potential Toxicity Performed By: #### F ERR, B12FOL, FETIBC, VITAD ####[facility] [address] [place] [id number]. Alysha Machuca XR KUB 1 VIEWon 02-20-2023 [...] AGUSTO BLANC Date: 2023-02-20 15:57 Normal [facility] Office Visit (Cardiology)on 12-06-2022 Follow-up visit Diagnoses/Problems Assessed Anticoagulated (V58.61) (Z79.01) Hyperlipidemia (272.4) (E78.5) Non-ischemic cardiomyopathy (425.4) (I42.8) Paroxysmal atrial fibrillation (427.31) (I48.0) Class 2 obesity with body mass index (BMI) of 36.0 to 36.9 in adult (278.00,V85.36) (E66.9,Z68.36) Never a smoker Orders Class 2 obesity with body mass index (BMI) of 36.0 to 36.9 in adult Healthy Weight Tips; Status:Complete; Done: 72Awu4452 Some eating tips that can help you lose weight.; Status:Complete; Done: 85Tse1129 Hyperlipidemia Renew: Lovastatin 10 MG Oral Tablet; TAKE 1 TABLET DAILY DIRECTED Paroxysmal atrial fibrillation IO EKG Electrocardiogram- 12 Lead; Status:Complete; Done: 06Dec2022 SocHx: Never a smoker Tobacco Use Screening; Status:Complete; Done: 00Rcu8128 Patient Instructions Please bring all medicines, vitamins, [...] MG Oral TabletTAKE 1 TABLET Twice daily [place] 3 [place] DIRECTED. Tylenol Arthritis Ext Relief [...] negative for complaint. Vitals Vital Signs Recorded: 19Kjw4287 01:27PM Heart Rate43, Apical Uxbppmkb918, RUE, Sitting Mgpyqlrta50, RUE, Sitting Height5 ft 5 in Lajvto329 lb BMI Ttrnnetbsj45.94 kg/m2 BSA Calculated2.07 Tobacco Useb) No PHQ-2 [...] Exam Constitutional (more content not included)... Normal [facility] Tobacco Screening.on 023 Adult depression screening assessment No [facility] y 250 DO Work Phone: Fall risk assessment a) No falls within the last year [facility] y 250 DO Work Phone: Tobacco use status [facility] b) No [facility] y 250 DO Work Phone: RAD - MISCon 11-06-2022 RAD - MISC [id number] .00CD:127 Normal [facility] VC INJ SCL EDMOND STENO TYPIST VEINSon 0 11-03-2022 VC INJ SCL EDMOND STENO TYPIST VEINS Patient: MIKY NOLEN Exam Date: 11/03/2022 : 1950 Gender:F Ordering : DR WILLARD GAMBOA M.D. Admission #: [id number] Family : Order #: [id number] CLICK HERE TO VIEW EXAM RADIOLOGY REPORT PROCEDURE: VEIN CENTER INJECTION SCLEROSING SOLUTION MULTIPLE VEINS SAME COMPARISON: VC INJ SCL EDMOND STENO TYPIST VEINS, 10/27/2022. VC INJ SCL EDMOND STENO TYPIST VEINS, 10/16/2022. INDICATIONS: Pain co-occurrent and due [...] Gamboa MD on 11/03/2022 at 12:37 Normal [facility] XR KUB 1 VIEWon 11-03-2022 XR KUB [...] by: AGUSTO BLANC Date: 2022-11-03 12:52 Normal [facility] VC INJ SCL EDMOND STENO TYPIST VEINSon 1 VC INJ SCL EDMOND STENO TYPIST VEINS Patient: MIKY NOLEN Exam Date: 10/27/2022 : 1950 Gender:F Ordering : DR WILLARD GAMBOA M.D. Admission #: [id number] Family : Order #: [id number] CLICK HERE TO VIEW EXAM RADIOLOGY REPORT PROCEDURE: VEIN CENTER INJECTION SCLEROSING SOLUTION MULTIPLE VEINS SAME COMPARISON: VC INJ SCL EDMOND STENO TYPIST VEINS, 10/16/2022. VC INJ SCL EDMOND STENO TYPIST VEINS, 10/06/2022. INDICATIONS: Pain co-occurrent and due [...] Gamboa MD on 10/27/2022 at 11:46 Normal [facility] VC INJ SCL EDMOND STENO TYPIST VEINSon 1 12-17-2021 VC INJ SCL EDMOND STENO TYPIST VEINS Patient: MIKY NOLEN Exam Date: 10/16/2022 : 1950 Gender:F Ordering : DR WILLARD GAMBOA M.D. Admission #: [id number] Family : Order #: [id number] CLICK HERE TO VIEW EXAM RADIOLOGY REPORT PROCEDURE: VEIN CENTER INJECTION SCLEROSING SOLUTION MULTIPLE VEINS SAME COMPARISON: VC INJ SCL EDMOND STENO TYPIST VEINS, 10/06/2022. INDICATIONS: Pain co-occurrent and due [...] Blanc M.D. on 10/17/2022 at 08:12 Normal [facility] CREATININEon 10-10-2022 Creatinine [Mass/Vol] 1.11 mg/dL Critically high 0.55-1.02 [facility] Comment on above: Performed By: #### C AIYANA ####[facility] [address] [place] [address]Dr. Alysha Machuca EGFR-AF SAMMARINESE 59 mL/min/1.73m2 Critically low >=60 [facility] Comment on above: Performed By: #### C AIYANA ####[facility] [address] [place] [address]DrMaite Machuca EGFR-NON AF SAMMARINESE 48 mL/min/1.73m2 Critically low >=60 [facility] Comment on above: Performed By: #### C AIYANA ####[facility] [address] [place], [place] [address]WuMaite Machuca VC INJ SCL EDMOND STENO TYPIST VEINSon 1 12-07-2021 VC INJ SCL EDMOND STENO TYPIST VEINS Patient: MIKY NOLEN Exam Date: 10/06/2022 : 1950 Gender:F Ordering : DR WILLARD GAMBOA M.D. Admission #: [id number] Family : Order #: [id number] CLICK HERE TO VIEW EXAM RADIOLOGY REPORT [...] Gamboa MD on 10/06/2022 at 13:45 Normal [facility] VC CONSULT FOLLOWUPon 2021 VC CONSULT FOLLOWUP Patient: MIKY NOLEN Exam Date: 09/26/2022 : 1950 Gender:F Ordering : DR WILLARD GAMBOA M.D. Admission #: [id number] Family : Order #: [id number] CLICK HERE TO VIEW EXAM RADIOLOGY REPORT [...] Blanc M.D. on 09/26/2022 at 15:46 Normal [facility] VC EXT VENOUS RT LIMITEDon 1 11-26-2021 VC EXT VENOUS RT LIMITED Patient: MIKY NOLEN Exam Date: 09/26/2022 : 1950 Gender:F Ordering : DR WILLARD GAMBOA M.D. Admission #: [id number] Family : Order #: [id number] CLICK HERE TO VIEW EXAM RADIOLOGY REPORT [...] Blanc M.D. on 09/26/2022 at 15:44 Normal [facility] VC INJ FOAM SCLERO W US MLTI on 09-20-2022 VC INJ FOAM SCLERO W US MLTI Patient: MIKY NOLEN Exam Date: 09/20/2022 : 1950 Gender:F Ordering : DR WILLARD GAMBOA M.D. Admission #: [id number] Family : Order #: [id number] CLICK HERE TO VIEW EXAM RADIOLOGY REPORT [...] Agusto Blanc M.D. on 09/20/2022 at 15:43 [facility] VC CONSULT FOLLOWUPon 2021 VC CONSULT FOLLOWUP Patient: MIKY NOLEN Exam Date: 09/07/2022 : 1950 Gender:F Ordering : DR WILLARD GAMBOA M.D. Admission #: [id number] Family : Order #: [id number] CLICK HERE [...] Gamboa MD on 09/07/2022 at 13:04 Normal [facility] VC EXT VENOUS LT LIMITEDon 1 11-07-2021 VC EXT VENOUS LT LIMITED Patient: MIKY NOLEN Exam Date: 09/07/2022 : 1950 Gender:F Ordering : DR WILLARD GAMBOA M.D. Admission #: [id number] Family : Order #: [id number] CLICK HERE TO VIEW EXAM RADIOLOGY REPORT [...] no flow. *Exam performed in accordance with [facility] practice [facility]- Peripheral venous ultrasound, January 22, 2010. CONCLUSION: Post ablation occlusion of treated left leg varicose veins Dictated by: Willard Gamboa MD on 09/07/2022 at 11:58 Approved by: Willard Gamboa MD on 09/07/2022 at 11:59 Normal [facility] CBC AUTO DIFFon 09-01-2022 BASO # 0.0 103/ul Normal 0.0-0.1 [facility] Comment on above: Performed By: #### C BC #### [facility] [address] [place] [address] Dr. Alysha Machuca Basophils/100 WBC (Bld) 0.6 % Normal 0.2-2.0 [facility] Comment on above: Performed By: #### C BC #### [facility] [address] [place] [address] Dr. Alysha Machuca EO # 0.3 103/ul Normal 0.0-0.7 [facility] Comment on above: Performed By: #### C BC #### [facility] [address] [place] [address] Dr. Alysha Machuca Eosinophils/100 WBC (Bld) 4.3 % Normal 0.9-7.0 [facility] Comment on above: Performed By: #### C BC #### [facility] [address] [place] [address] Dr. Alysha Machuca Erythrocyte distribution width (RBC) [Ratio] 14.6 % Normal 11.0-15.0 [facility] Comment on above: Performed By: #### C BC #### [facility] [address] [place] [address] Dr. Alysha Machuca Hematocrit (Bld) [Volume fraction] 39.7 % Normal 36.0-48.0 [facility] Comment on above: Performed By: #### C BC #### [facility] [address] [place] [address] Dr. Alysha Machuca Hemoglobin (Bld) [Mass/Vol] 13.1 g/dL Normal 12.0-16.0 [facility] Comment on above: Performed By: #### C BC #### [facility] [address] [place] [address] Dr. Alysha Machuca IG # 0.01 10e3/ul Normal 0.00-0.03 [facility] Comment on above: Performed By: #### C BC #### [facility] [address] [place] [address] Dr. Alysha Machuca IG % 0.2 % Normal 0.0-0.5 [facility] Comment on above: Performed By: #### C BC #### [facility] [address] [place] [address] Dr. Alysha Machuca LYMPH # 1.9 103/ul Normal 1.2-3.8 [facility] Comment on above: Performed By: #### C BC #### [facility] [address] [place] [address] Dr. Alysha Machuca Lymphocytes/100 WBC (Bld) 29.5 % Normal 20.5-60.0 [facility] Comment on above: Performed By: #### C BC #### [facility] [address] [place] [address] Dr. Alysha Machuca MANUAL DIFF REQ NO Normal [facility] Comment on above: Performed By: #### C BC #### [facility] [address] [place] [address] Dr. Alysha Machuca MCH (RBC) [Entitic mass] 29.8 pg Normal 26.7-34.0 [facility] Comment on above: Performed By: #### C BC #### [facility] [address] [place] [address] Dr. Alysha Machuca MCHC (RBC) [Mass/Vol] 33.0 g/dL Normal 29.9-35.2 [facility] Comment on above: Performed By: #### C BC #### [facility] [address] [address] [address] Alysha Machuca MCV (RBC) [Entitic vol] 90.2 fL Normal 81.0-99.0 [facility] Comment on above: Performed By: #### C BC #### [facility] [address] [place] [address] Dr. Alysha Machuca MONO # 0.5 103/ul Normal 0.3-0.8 [facility] Comment on above: Performed By: #### C BC #### [facility] [address] [place] [address] Dr. Alysha Machuca Monocytes/100 WBC (Bld) 7.0 % Normal 1.7-12.0 [facility] Comment on above: Performed By: #### C BC #### [facility] [address] [place] [address] Dr. Alysha Machuca NEUT # 3.8 103/ul Normal 1.4-6.5 [facility] Comment on above: Performed By: #### C BC #### [facility] [address] [place] [address] Dr. Alysha Machuca Neutrophils/100 WBC (Bld) 58.4 % Normal 43.0-75.0 [facility] Comment on above: Performed By: #### C BC #### [facility] [address] [place] [address] Dr. Alysha Machuca Platelet mean volume (Bld) [Entitic vol] 9.5 fL Normal 9.5-13.5 [facility] Comment on above: Performed By: #### C BC #### [facility] [address] [place] [address] Dr. Alysha Machuca PLT 235 103/ul Normal 150-450 [facility] Comment on above: Performed By: #### C BC #### [facility] [address] [place] [address] Dr. Alysha Machuca RBC 4.40 106/ul Normal 4.20-5.40 [facility] Comment on above: Performed By: #### C BC #### [facility] [address] [place] [address] Dr. Alysha Machuca WBC 6.6 103/ul Normal 4.0-11.0 [facility] Comment on above: Performed By: #### C BC #### [facility] [address] [address] [address] Alysha Machuca PROF CHEM 8 (BAS METB)on Anion gap [Moles/Vol] 7.7 mmol/L Normal [facility] Comment on above: Performed By: #### B MP ####[facility] [address] [address]Dr. Alysha Machuca Calcium [Mass/Vol] 9.8 mg/dL Normal 8.5-10.1 [facility] Comment on above: Performed By: #### B MP ####[facility] [address] [address]Dr. Alysha Machuca Chloride [Moles/Vol] 104 mmol/L Normal 98-107 [facility] Comment on above: Performed By: #### B MP ####[facility] [address] [address]DrMaite Machuca CO2 [Moles/Vol] 29.2 mmol/L Normal 21.0-32.0 [facility] Comment on above: Performed By: #### B MP ####[facility] [address] [address]Dr. Alysha Machuca Creatinine [Mass/Vol] 1.05 mg/dL Critically high 0.55-1.02 [facility] Comment on above: Performed By: #### B MP ####[facility] [address] [address]Dr. Alysha Machuca EGFR-AF SAMMARINESE >60 Normal >=60 [facility] Comment on above: Performed By: #### B MP ####[facility] [address] [address]Dr. Alysha Machuca EGFR-NON AF SAMMARINESE 52 mL/min/1.73m2 Critically low >=60 [facility] Comment on above: Performed By: #### B MP ####[facility] [address] [address]Dr. Alysha Machuca Glucose [Mass/Vol] 107 mg/dL Critically high 74-106 [facility] Comment on above: Performed By: #### B MP ####[facility] [address] [address]Dr. Alysha Machuca Potassium [Moles/Vol] 3.9 mmol/L Normal 3.5-5.1 [facility] Comment on above: Performed By: #### B MP ####[facility] [address] [address]Dr. Alysha Machuca Sodium [Moles/Vol] 137 mmol/L Normal 136-145 [facility] Comment on above: Performed By: #### B MP ####[facility] [address] [address]Dr. Alysha Machuca Urea nitrogen [Mass/Vol] 16.0 mg/dL Normal 7.0-18.0 [facility] Comment on above: Performed By: #### B MP ####[facility] [address] [address]Dr. Alysha Machuca Urea nitrogen/Creatini ne [Mass ratio] 15.2 mg/mg Normal [facility] Comment on above: Performed By: #### B MP ####[facility] [address] [place], [place] [address]Dr. Alysha Machuca VC INJ FOAM SCLERO W US MLTI on 08-31-2022 VC INJ FOAM SCLERO W US MLTI Patient: MIKY NOLEN Exam Date: 08/31/2022 : 1950 Gender:F Ordering : DR WILLARD GAMBOA M.D. Admission #: [id number] Family : Order #: [id number] CLICK HERE TO VIEW EXAM RADIOLOGY REPORT [...] compressi (more content not included)... Normal [facility] VC CONSULT FOLLOWUPon 2021 VC CONSULT FOLLOWUP Patient: MIKY NOLEN Exam Date: 08/22/2022 : 1950 Gender:F Ordering : DR WILLARD GAMBOA M.D. Admission #: [id number] Family : Order #: [id number] CLICK HERE TO VIEW EXAM RADIOLOGY REPORT [...] Gamboa MD on 08/22/2022 at 10:45 Normal [facility] VC EXT VENOUS RT LIMITEDon 1 VC EXT VENOUS RT LIMITED Patient: MIKY NOLEN Exam Date: 08/22/2022 : 1950 Gender:F Ordering : DR WILLARD GAMBOA M.D. Admission #: [id number] Family : Order #: [id number] CLICK HERE TO VIEW EXAM RADIOLOGY REPORT [...] 1.0s reflux. *Exam performed in accordance with [facility] practice [facility]- Peripheral venous ultrasound, January 22, 2010. CONCLUSION: Post ablation occlusion of right leg incompetent treated varicose veins with residual patent incompetent varicose veins measuring up to 7 mm Dictated by: Willard Gamboa MD on 08/22/2022 at 10:21 Approved by: Willard Gamboa MD on 08/22/2022 at 10:21 Normal [facility] VC INJ FOAM SCLERO W US MLTI on 08-17-2022 VC INJ FOAM SCLERO W US MLTI Patient: MIKY NOLEN Exam Date: 08/17/2022 : 1950 Gender:F Ordering : DR WILLARD GAMBOA M.D. Admission #: [id number] Family : Order #: [id number] CLICK HERE TO VIEW EXAM RADIOLOGY REPORT [...] take (more content not included)... Normal [facility] VC CONSULT FOLLOWUPon 2021 VC CONSULT FOLLOWUP Patient: MIKY NOLEN Exam Date: 08/07/2022 : 1950 Gender:F Ordering : DR WILLARD GAMBOA M.D. Admission #: [id number] Family : Order #: [id number] CLICK HERE TO VIEW EXAM RADIOLOGY REPORT [...] Gamboa MD on 08/07/2022 at 13:31 Normal [facility] VC EXT VENOUS LT LIMITEDon 1 VC EXT VENOUS LT LIMITED Patient: MIKY NOLEN Exam Date: 08/07/2022 : 1950 Gender:F Ordering : DR WILLARD GAMBOA M.D. Admission #: [id number] Family : Order #: [id number] CLICK HERE TO VIEW EXAM RADIOLOGY REPORT [...] Willard Gamboa MD on 08/07/2022 at 12:01 Normal [facility] VC INJ FOAM SCLERO W US MLTI on 08-01-2022 VC INJ FOAM SCLERO W US MLTI Patient: MIKY NOLEN Exam Date: 08/01/2022 : 1950 Gender:F Ordering : DR WILLARD GAMBOA M.D. Admission #: [id number] Family : Order #: [id number] CLICK HERE TO VIEW EXAM RADIOLOGY REPORT [...] compr (more content not included)... Normal [facility] VC CONSULT FOLLOWUPon 2021 VC CONSULT FOLLOWUP Patient: MIKY NOLEN Exam Date: 07/17/2022 : 1950 Gender:F Ordering : DR WILLARD GAMBOA M.D. Admission #: [id number] Family : Order #: [id number] CLICK HERE TO VIEW EXAM RADIOLOGY REPORT [...] Agusto Blanc M.D. on 07/17/2022 at 12:18 Normal [facility] VC EXT VENOUS RT LIMITEDon 0 07-17-2022 VC EXT VENOUS RT LIMITED Patient: MIKY NOLEN Exam Date: 07/17/2022 : 1950 Gender:F Ordering : DR WILLARD GAMBOA M.D. Admission #: [id number] Family : Order #: [id number] CLICK HERE TO VIEW EXAM RADIOLOGY REPORT [...] Agusto Blanc M.D. on 07/17/2022 at 12:14 [facility] VC INJ FOAM SCLERO W US MLTI on 07-12-2022 VC INJ FOAM SCLERO W US MLTI Patient: MIKY NOLEN Exam Date: 07/12/2022 : 1950 Gender:F Ordering : DR WILLARD GAMBOA M.D. Admission #: [id number] Family : Order #: [id number] CLICK HERE TO VIEW EXAM RADIOLOGY REPORT [...] da (more content not included)... Normal [facility] VC CONSULT FOLLOWUPon 2021 VC CONSULT FOLLOWUP Patient: MIKY NOLEN Exam Date: 06/30/2022 : 1950 Gender:F Ordering : DR WILLARD GAMBOA M.D. Admission #: [id number] Family : Order #: [id number] CLICK HERE TO VIEW EXAM RADIOLOGY REPORT [...] Gamboa MD on 06/30/2022 at 13:21 Normal [facility] VC EXT VENOUS LT LIMITEDon 0 06-30-2022 VC EXT VENOUS LT LIMITED Patient: MIKY NOLEN Exam Date: 06/30/2022 : 1950 Gender:F Ordering : DR WILLARD GAMBOA M.D. Admission #: [id number] Family : Order #: [id number] CLICK HERE TO VIEW EXAM RADIOLOGY REPORT [...] 1.0s reflux. *Exam performed in accordance with [facility] practice [facility]- Peripheral venous ultrasound, January 22, 2010. CONCLUSION: Post ablation occlusion of treated incompetent left leg varicose veins with residual incompetent varicose veins measuring up to 6.1 mm Dictated by: Willard Gamboa MD on 06/30/2022 at 13:00 Approved by: Willard Gamboa MD on 06/30/2022 at 13:02 Normal [facility] ALBUMIN, RANDOM URINE W/CREA TININEon 06-26-2022 ALBUMIN, URINE 12.7 mg/dL Normal See Note: [facility] Comment on above: Result Comment: Refe rence Range: Reference Range Not established Performed By: #### 7 600, 496, 71326, 6517 #### [facility] [address], [address] [place] [address] Manager Business Management: Marek Subramanian MD ALBUMIN/CREATININ E RATIO, RANDOM URINE 62 mcg/mg creat High <30 [facility] Comment on above: Result Comment: [...] category. Performed By: #### 7 600, 496, 39300, 6517 #### [facility] [place] [address] Manager Business Management: Marek Subramanian MD Creatinine (U) [Mass/Vol] 205 mg/dL Normal 20-275 [facility] Comment on above: Performed By: #### 7 600, 496, 62299, 6517 #### [facility] [place] [address] Manager Business Management: Marek Subramanian MD [facility] 06-26-2022 Albumin [Mass/Vol] 3.9 g/dL Normal 3.6-5.1 [facility] Comment on above: Performed By: #### 7 600, 496, 05041, 6517 #### [facility] [place] [address] Manager Business Management: Marek Subramanian MD Albumin/Globulin [Mass ratio] 1.4 {ratio} Normal 1.0-2.5 [facility] Comment on above: Performed By: #### 7 600, 496, 08944, 6517 #### [facility] [place] [address] Manager Business Management: Marek Subramanian MD ALP [Catalytic activity/Vol] 106 U/L Normal 37-153 [facility] Comment on above: Performed By: #### 7 600, 496, 15398, 6517 #### [facility] [place] [address] Manager Business Management: Marek Subramanian MD ALT [Catalytic activity/Vol] 10 U/L Normal 6-29 [facility] Comment on above: Performed By: #### 7 600, 496, 17365, 6517 #### [facility] of [address], [address] [place] [address] Manager Business Management: Marek Subramanian MD AST [Catalytic activity/Vol] 13 U/L Normal 10-35 [facility] Comment on above: Performed By: #### 7 600, 496, 72436, 6517 #### [facility] of [address], [address] [place] [address] Manager Business Management: Marek Subramanian MD Bilirubin [Mass/Vol] 0.8 mg/dL Normal 0.2-1.2 [facility] Comment on above: Performed By: #### 7 600, 496, 70785, 6517 #### [facility] of [place] [address] Manager Business Management: Marek Subramanian MD BUN/CREATININE RATIO NOT APPLICABLE Normal 6-22 [facility] Comment on above: Performed By: #### 7 600, 496, 29537, 6517 #### [facility] of [place] [address] Manager Business Management: Marek Subramanian MD Calcium [Mass/Vol] 9.9 mg/dL Normal 8.6-10.4 [facility] Comment on above: Performed By: #### 7 600, 496, 58014, 6517 #### [facility] of [address], [address] [place] [address] Manager Business Management: Marek Subramanian MD Chloride [Moles/Vol] 109 mmol/L Normal 98-110 [facility] Comment on above: Performed By: #### 7 600, 496, 72409, 6517 #### [facility] of [place] [address] Manager Business Management: Marek Subramanian MD CO2 [Moles/Vol] 24 mmol/L Normal 20-32 [facility] Comment on above: Performed By: #### 7 600, 496, 38897, 6517 #### [facility] of [place] [address] Manager Business Management: Marek Subramanian MD Creatinine [Mass/Vol] 0.88 mg/dL Normal 0.60-1.00 [facility] Comment on above: Performed By: #### 7 600, 496, 88508, 6517 #### [facility] [place] [address] Manager Business Management: Marek Subramanian MD GFR/1.73 sq M.predicted among non-blacks MDRD (S/P/Bld) [Vol rate/Area] 70 mL/min/{1.73_m2} Normal > OR = 60 [facility] Comment on above: Result Comment: The eGFR is based on the CKD-EPI 2020 equation. To calculate the new eGFR from a previous Creatinine or Cystatin C result, go to https://www.kidney.org/professionals/ kdoqi/gfr%5Fcalculator Performed By: #### 7 600, 496, 10685, 6517 #### [facility] [place] [address] Manager Business Management: Marek Subramanian MD Globulin (S) [Mass/Vol] 2.7 g/dL Normal 1.9-3.7 [facility] Comment on above: Performed By: #### 7 600, 496, 06166, 6517 #### [facility] [place] [address] Manager Business Management: Marek Subramanian MD Glucose [Mass/Vol] 91 mg/dL Normal 65-99 [facility] Comment on above: Result Comment: Fasting reference interval Performed By: #### 7 600, 496, 18581, 6517 #### [facility] [place] [address] Manager Business Management: Marek Subramanian MD Potassium [Moles/Vol] 4.0 mmol/L Normal 3.5-5.3 [facility] Comment on above: Performed By: #### 7 600, 496, 51075, 6517 #### [facility] [place] [address] Manager Business Management: Marek Subramanian MD Protein [Mass/Vol] 6.6 g/dL Normal 6.1-8.1 [facility] Comment on above: Performed By: #### 7 600, 496, 38428, 6517 #### [facility] [address], [address] [place] [address] Manager Business Management: Marek Subramanian MD Sodium [Moles/Vol] 143 mmol/L Normal 135-146 [facility] Comment on above: Performed By: #### 7 600, 496, 83298, 6517 #### [facility] [address], [address] [place] [address] Manager Business Management: Marek Subramanian MD Urea nitrogen [Mass/Vol] 15 mg/dL Normal 7-25 [facility] Comment on above: Performed By: #### 7 600, 496, 47233, 6517 #### [facility] [address], [address] [place] [address] Manager Business Management: Marek Subramanian MD HEMOGLOBIN A1con 06-26-2022 HEMOGLOBIN [...] diagnosis of diabetes in children. According to [place] [employer] (ADA) guidelines, hemoglobin A1c <7.0% represents optimal control in non- diabetic patients. Different metrics may apply to specific patient populations. Standards of Medical Care in Diabetes(ADA). Performed By: #### 7 600, 496, 65072, 6517 #### [facility] [address], [address] [place] [address] Manager Business Management: Marek Subramanian MD LIPID PANEL, STANDARDon 08-2 Cholesterol [Mass/Vol] 171 mg/dL Normal <200 [facility] Comment on above: Order Comment: FASTI NG:YES FASTING: YES Performed By: #### 7 600, 496, 43909, 6517 #### [facility] [address], [address] [place] [address] Manager Business Management: Marek Subramanian MD Cholesterol in HDL [Mass/Vol] 60 mg/dL Normal > OR = 50 [facility] Comment on above: Order Comment: FASTI NG:YES FASTING: YES Performed By: #### 7 600, 496, 50573, 6517 #### [facility] [address], [address] [place] [address] Manager Business Management: Marek Subramanian MD Cholesterol in LDL [Mass/Vol] [...] LDL-C. Nikita RUSSELL et al. LEWIS. 2013;310(19): 0204-7494 (http://education.Yones/faq/QYZ661) Performed By: #### 7 600, 496, 05547, 6517 #### [facility] [address], [address] [place] [address] Manager Business Management: Marek Subramanian MD Cholesterol.total /Cholesterol in HDL [Mass ratio] 2.9 {ratio} Normal <5.0 [facility] Comment on above: Order Comment: FASTI NG:YES FASTING: YES Performed By: #### 7 600, 496, 84690, 6517 #### [facility] [place] [address] Manager Business Management: Marek Subramanian MD NON HDL CHOLESTEROL 111 mg/dL (calc) Normal <130 [facility] Comment on above: Order Comment: FASTI NG:YES FASTING: YES Result Comment: For patients with diabetes plus 1 major ASCVD risk factor, treating to a non-HDL-C goal of <100 mg/dL (LDL-C of <70 mg/dL) is considered a therapeutic option. Performed By: #### 7 600, 496, 42175, 6517 #### [facility] [address], [address] [place] [address] Manager Business Management: Marek Subramanian MD Triglyceride [Mass/Vol] 95 mg/dL Normal <150 [facility] Comment on above: Order Comment: FASTI NG:YES FASTING: YES Performed By: #### 7 600, 496, 85508, 6517 #### [facility] [address], [address] [place] [address] Manager Business Management: Marek Subramanian MD VC INJ FOAM SCLERO W US MLTI on 06-26-2022 VC INJ FOAM SCLERO W US MLTI Patient: MIKY NOLEN Exam Date: 06/26/2022 : 1950 Gender:F Ordering : DR WILLARD GAMBOA M.D. Admission #: [id number] Family : Order #: [id number] CLICK HERE TO VIEW EXAM RADIOLOGY REPORT [...] vein medial distal lower leg/ankle. A large firer kiln vein was occluded with manual pressure until [...] superficial varices, (more content not included)... Normal [facility] VC CONSULT FOLLOWUPon 2021 VC CONSULT FOLLOWUP Patient: MIKY NOLEN Exam Date: 06/19/2022 : 1950 Gender:F Ordering : DR WILLARD GAMBOA M.D. Admission #: [id number] Family : Order #: [id number] CLICK HERE TO VIEW EXAM RADIOLOGY REPORT [...] Blanc M.D. on 06/19/2022 at 12:14 Normal [facility] VC EXT VENOUS RT LIMITEDon 0 06-19-2022 VC EXT VENOUS RT LIMITED Patient: MIKY NOLEN Exam Date: 06/19/2022 : 1950 Gender:F Ordering : DR WILLARD GAMBOA M.D. Admission #: [id number] Family : Order #: [id number] CLICK HERE TO VIEW EXAM RADIOLOGY REPORT [...] Blanc M.D. on 06/19/2022 at 12:11 Normal [facility] VC INJ FOAM SCLERO W US MLTI on 06-13-2022 VC INJ FOAM SCLERO W US MLTI Patient: MIKY NOLEN Exam Date: 06/13/2022 : 1950 Gender:F Ordering : DR WILLARD GAMBOA M.D. Admission #: [id number] Family : Order #: [id number] CLICK HERE TO VIEW EXAM CORRECTION made [...] Blanc M.D. on 06/19/2022 at 12:17 Normal [facility] VC CONSULT FOLLOWUPon 2021 VC CONSULT FOLLOWUP Patient: MIKY NOLEN Exam Date: 05/31/2022 : 1950 Gender:F Ordering : DR WILLARD GAMBOA M.D. Admission #: [id number] Family : Order #: [id number] CLICK HERE TO VIEW EXAM RADIOLOGY REPORT [...] Blanc M.D. on 05/31/2022 at 12:18 Normal [facility] VC EXT VENOUS LT LIMITEDon 0 05-31-2022 VC EXT VENOUS LT LIMITED Patient: MIKY NOLEN Exam Date: 05/31/2022 : 1950 Gender:F Ordering : DR WILLARD GAMBOA M.D. Admission #: [id number] Family : Order #: [id number] CLICK HERE TO VIEW EXAM RADIOLOGY REPORT [...] M.D. on 05/31/2022 at 11:38 Approved by: Agutso Blanc M.D. on 05/31/2022 at 12:13 Normal [facility] CT ABD/PELVIS WO CONon 05-26 CT ABD/PELVIS [...] hernia. Nondilated. No findings of acute appendicitis. Peritoneum/retroperit oneum: No free fluid or gas. Vasculature: Atherosclerosis [...] by: SANTHOSH NICK Date: 2022-05-26 16:43 Normal [facility] VC ENDOVENOUS ABL 1ST V LTon 05-23-2022 VC ENDOVENOUS ABL 1ST V LT Patient: MIKY NOLEN Exam Date: 05/23/2022 : 1950 Gender:F Ordering : DR WILLARD GAMBOA M.D. Admission #: [id number] Family : Order #: [id number] CLICK HERE TO VIEW EXAM RADIOLOGY REPORT [...] assisted. Time out procedure was performed. The left [...] Blanc M.D. on 05/23/2022 at 12:34 Normal [facility] US KIDNEYSon 05-05-2022 US KIDNEYS EXAMINATION: US [...] by: WILLARD GAMBOA Date: 2022-05-05 13:29 Normal [facility] XR KUB 1 VIEWon 05-05-2022 XR KUB [...] by: AGUSTO BLANC Date: 2022-05-05 15:54 Normal [facility] MG MAMM SCREEN 3D TANMAY CADon 05-04-2022 MG MAMM SCREEN 3D TANMAY CAD Patient: MIKY NOLEN Exam Date: 05/04/2022 : 1950 Gender:F Ordering : DR CONNOR JEAN BAPTISTE Admission #: [id number] Family : Order #: [id number] CLICK HERE TO VIEW EXAM RADIOLOGY REPORT [...] colon cancer at age 60. LOCATION: [facility] BREAST COMPOSITION: Scattered areas fibroglandular density. [...] Blanc M.D. on 05/05/2022 at 14:21 Normal [facility] VC CONSULT FOLLOWUPon 2021 VC CONSULT FOLLOWUP Patient: MIKY NOLEN Exam Date: 05/04/2022 : 1950 Gender:F Ordering : DR WILLARD GAMBOA M.D. Admission #: [id number] Family : Order #: [id number] CLICK HERE TO VIEW EXAM RADIOLOGY REPORT [...] Blanc M.D. on 05/04/2022 at 11:43 Normal [facility] VC EXT VENOUS RT LIMITEDon 0 05-04-2022 VC EXT VENOUS RT LIMITED Patient: MIKY NOLEN Exam Date: 05/04/2022 : 1950 Gender:F Ordering : DR WILLARD GAMBOA M.D. Admission #: [id number] Family : Order #: [id number] CLICK HERE TO VIEW EXAM RADIOLOGY REPORT [...] M.D. on 05/04/2022 at 11:17 Normal [facility] CULTURE URINEon 05-03-2022 CULTURE URINE Culture Observations : LIGHT GROWTH OF MIXED GENITAL LUDWIN. NO POTENTIAL PATHOGENS SEEN. Normal [facility] Comment on above: Performed By: #### U RCX ####[facility] [address] [place], [place] [address]AiMaite Machuca UA RANDOMon 05-03-2022 Bilirubin Ql (U) Negative Normal NEGATIVE [facility] Comment on above: Performed By: #### U A #### [facility] [address] [address] [address] Alysha Machuca Clarity (U) TURBID Abnormal CLEAR [facility] Comment on above: Performed By: #### U A #### [facility] [address] [place] [address] Dr. Alysha Machuca Color (U) RED Abnormal YELLOW [facility] Comment on above: Result Comment: Prev iously reported as: YELLOW On 05/03/2022 17:30 By CV2 Performed By: #### U A #### [facility] [address] [place] [address] Dr. Alysha Machuca Glucose Ql (U) Negative Normal NEGATIVE [facility] Comment on above: Performed By: #### U A #### [facility] [address] [place] [address] Dr. Alysha Machuca Hemoglobin Ql (U) LARGE Abnormal NEGATIVE [facility] Comment on above: Performed By: #### U A #### [facility] [address] [place] [address] Dr. Alysha Machuca Ketones Ql (U) Negative Normal NEGATIVE [facility] Comment on above: Performed By: #### U A #### [facility] [address] [place] [address] Dr. Alysha Machuca LEUKOCYTES Negative Normal NEGATIVE [facility] Comment on above: Performed By: #### U A #### [facility] [address] [place] [address] Dr. Alysha Machuca Nitrite Ql (U) Negative Normal NEGATIVE [facility] Comment on above: Performed By: #### U A #### [facility] [address] [place] [address] Dr. Alysha Machuca pH (U) 6.0 [pH] Normal 5-9 [facility] Comment on above: Performed By: #### U A #### [facility] [address] [place] [address] Dr. Alysha Machuca SPEC GRAVITY 1.025 Normal 1.005-<=1.025 [facility] Comment on above: Performed By: #### U A #### [facility] [address] [address] [address] Alysha Machuca UA PROTEIN 100 mg/dl Abnormal NEGATIVE/ TRACE [facility] Comment on above: Performed By: #### U A #### [facility] [id number] Alysha Machuca Urobilinogen Qn (U) 0.2 {Luis'U}/dL Normal 0.2 - 1.0 [facility] Comment on above: Performed By: #### U A #### [facility] [address] [address] [address] Alysha Machuca VC ENDOVENOUS ABL 1ST V RTon 04-26-2022 VC ENDOVENOUS ABL 1ST V RT Patient: MIKY NOLEN Exam Date: 04/26/2022 : 1950 Gender:F Ordering : DR WILLARD GAMBOA M.D. Admission #: [id number] Family : Order #: [id number] CLICK HERE TO VIEW EXAM RADIOLOGY REPORT [...] Gamboa MD on 04/26/2022 at 10:58 Normal [facility] VC CONSULT FOLLOWUPon 2021 VC CONSULT FOLLOWUP Patient: MIKY NOLEN Exam Date: 04/13/2022 : 1950 Gender:F Ordering : DR WILLARD GAMBOA M.D. Admission #: [id number] Family : Order #: [id number] CLICK HERE TO VIEW EXAM RADIOLOGY REPORT [...] Blanc M.D. on 04/13/2022 at 10:59 Normal [facility] VC EXT VENOUS LT LIMITEDon 0 04-13-2022 VC EXT VENOUS LT LIMITED Patient: MIKY NOLEN Exam Date: 04/13/2022 : 1950 Gender:F Ordering : DR WILLARD GAMBOA M.D. Admission #: [id number] Family : Order #: [id number] CLICK HERE TO VIEW EXAM RADIOLOGY REPORT [...] Blanc M.D. on 04/13/2022 at 10:56 Normal [facility] Office Visit (Cardiology)on 03-22-2022 Follow-up visit Diagnoses/Problems Assessed Non-ischemic cardiomyopathy (425.4) (I42.8) Hyperlipidemia (272.4) (E78.5) Anticoagulated (V58.61) (Z79.01) Paroxysmal atrial fibrillation (427.31) (I48.0) Morbid obesity with BMI of 40.0-44.9, adult (278.01,V85.41) (E66.01,Z68.41) Never a smoker Orders Hyperlipidemia Renew: Lovastatin 10 MG Oral Tablet; TAKE 1 TABLET DAILY DIRECTED Morbid obesity with BMI of 40.0-44.9, adult Healthy Weight Tips; Status:Complete - Retrospective Authorization; Done: [id number] Paroxysmal atrial fibrillation IO EKG Electrocardiogram- 12 Lead; Status:Complete; Done: [id number] SocHx: Never a smoker Tobacco Use Screening; Status:Complete; Done: [id number] Patient Instructions By signing my name below, I, Luigi Maldonado LPN, attest that this documentation has been prepared [...] failure. With guideline directed therapy in the advent of maintenance of sinus rhythm her symptoms [...] Oral TabletTake 1 tablet twice a day [place] 3 [place] DIRECTED. Tylenol Arthritis Ext Relief [...] negative for complaint. Vitals Vital Signs Recorded: [id number] 02:06PM Heart Rate47, Apical Qxjeektw909, RUE, Sitting Qoekitnhl52, RUE, Sitting Height5 ft 5 in Oqzhaf749 lb 6.4 oz BMI Avzqwcodkh36.17 kg/m2 BSA Calculated2.19 Tobacco Useb) No PHQ-2 [...] no murmurs (more content not included)... Normal [facility] Tobacco Screening.on 022 Adult depression screening assessment No -[facility] 250 DO Work Phone: Fall risk assessment a) No falls within the last year [facility] 250 DO Work Phone: Tobacco use status CPHS b) No -[facility] 250 DO Work Phone: VC ENDOVENOUS ABL PERFORATIN G LTon 03-22-2022 VC ENDOVENOUS ABL PERFORATING LT Patient: MIKY NOLEN Exam Date: 03/22/2022 : 1950 Gender:F Ordering : DR WILLARD GAMBOA M.D. Admission #: [id number] Family : Order #: [id number] CLICK HERE TO VIEW EXAM RADIOLOGY REPORT PROCEDURE: VEIN CENTER ENDOVENOUS ABLATION VEIN LEFT LEG COMPARISON: None. INDICATIONS: Pain co-occurrent and due to varicose veins of bilateral legs I83.813 OPERATIVE REPORT: Diagnosis: Superficial venous reflux, incompetent perforating veins Procedure: Endovenous laser ablation of the left firer kiln(s) Procedure: The patient was positioned supine on [...] MD (more content not included)... Normal [facility] KAL SCREEN, IFA, W/REFL TITE R/PATTERN [...] indicated. For additional information, please refer to http://education.M Lite Solution.ParAccel/faq/GTW967 (This link is being provided for informational/ educational purposes only.) Performed By: #### 8 09, 3737, 4420, 28139, %[id number] #### [facility] [address] [address] Manager Business Management: Marek Subramanian MD ANTINUCLEAR ANTIBODIES TITER AND PATTERNon 10-01-2021 KAL PATTERN Nuclear, Centromere Abnormal Ques t [facility] Comment on above: Result Comment: Cent romere pattern is associated with limited cutaneous systemic sclerosis, CREST (Calcinosis, Raynaud's, Esophageal dysmotility, Sclerodactyly, Telangiectasia), primary biliary cholangitis (PBC), and other autoimmune diseases. AC-3: Centromere International Consensus on KAL Patterns (https://doi.org/10.1515/mjsb-4625-5526) Performed By: #### 8 09, 8268, 4420, 13313, %[id number] #### [facility] [address], [address] [place] [address] Manager Business Management: Marek Subramanian MD KAL PATTERN Nuclear, Homogeneous Abnormal Que st [facility] Comment on above: Result Comment: Homo geneous pattern is associated with systemic lupus erythematosus (SLE), drug-induced lupus and juvenile idiopathic arthritis. AC-1: Homogeneous International Consensus on KAL Patterns (https://doi.org/10.1515/scur-5720-5485) Performed By: #### 8 09, 8268, 4420, 24732, %[id number] #### [facility] [place] [address] Manager Business Management: Marek Subramanian MD KAL TITER > OR = 1:1280 Abnormal [facility] Comment on above: Result Comment: Refe rence Range <1:40 Negative 1:40-1:80 Low Antibody Level >1:80 Elevated Antibody Level Performed By: #### 8 09, 8268, 4420, 66458, %[id number] #### [facility] [address], [address] [place] [address] Manager Business Management: Marek Subramanian MD KAL TITER 1:80 High [facility] Comment on above: Result Comment: A lo w level KAL titer may be present in pre- clinical autoimmune diseases and normal individuals. Reference Range <1:40 Negative 1:40-1:80 Low Antibody Level >1:80 Elevated Antibody Level Performed By: #### 8 09, 8268, 4420, 31346, %[id number] #### [facility] of [place] [address] Manager Business Management: Marek Subramanian MD C-REACTIVE PROTEINon 021 CRP [Mass/Vol] 13.4 mg/L High <8.0 [facility] Comment on above: Performed By: #### 8 09, 8268, 4420, 14574, %[id number] #### [facility] [place] [address] Manager Business Management: Marek Subramanian MD RHEUMATOID ARTHRITIS DIAGNOS TIC PANEL 1on 10-01-2021 CYCLIC CITRULLINATED PEPTIDE (CCP) AB (IGG) <16 Normal [facility] Comment on above: Result Comment: Refe rence Range Negative: <20 Weak Positive: 20-39 Moderate Positive: 40-59 Strong Positive: >59 Performed By: #### 8 09, 8268, 4420, 33794, %[id number] #### [facility] [place] [address] Manager Business Management: Marek Subramanian MD INTERPRETATION Normal [facility] Comment on above: Result Comment: These serologic results may be found in 10-20% of patients with polyarthritis that is clinically and radiologically indistinguishable from RA. Performed By: #### 8 09, 8268, 4420, 37133, %[id number] #### [facility] [place] [address] Manager Business Management: Marek Subramanian MD RHEUMATOID FACTOR <14 Normal <14 [facility] Comment on above: Performed By: #### 8 09, 8268, 4420, 71045, %[id number] #### [facility] of [place] [address] Manager Business Management: Marek Subramanian MD SED RATE BY BILLY Singh 10-01-2021 SED RATE BY BILLY WOODWARD 51 mm/h High < OR = 30 [facility] Comment on above: Performed By: #### 8 09, 8268, 4420, 83875, %[id number] #### [facility] of [address] [place] [address] Manager Business Management: Marek Subramanian MD Tobacco Screening.on 021 Fall risk assessment a) No falls within the last year [facility] [employer] 600 DO Work Phone: Tobacco use status CP b) No -[facility] 600 DO Work Phone: Vital Signs Date Time Vital Sign Value Performing Clinician Faci lity 12-06-2022 13:27-0500 Body height 165.1 cm Connor G Furlong Work Phone: [facility] 250 DO Work Phone: 12-06-2022 13:27-0500 Body mass index (BMI) [Ratio] 36.94 kg/m2 Connor G Furlong Work Phone: [facility] 250 DO Work Phone: 12-06-2022 13:27-0500 Body surface area Derived from formula 2.07 m2 Connor G Furlong Work Phone: [facility] 250 DO Work Phone: 12-06-2022 13:27-0500 Body weight 100.7 kg Connor G Furlong Work Phone: [facility] 250 DO Work Phone: 12-06-2022 13:27-0500 Diastolic blood pressure 84 mm[Hg] Connor G Furlong Work Phone: [facility] 250 DO Work Phone: 12-06-2022 13:27-0500 Heart rate 43 /min Connor G Furlong Work Phone: [facility] 250 DO Work Phone: 12-06-2022 13:27-0500 Systolic blood pressure 130 mm[Hg] Connor G Furlong Work Phone: [facility] 250 DO Work Phone: 06-30-2022 11:43-0400 Blood Pressure Location Sy AVITIA [facility] 06-30-2022 11:43-0400 Diastolic blood pressure 69 mm[Hg] Sygerry AVITIA [facility] 06-30-2022 11:43-0400 Heart rate 60 /min Sygerry AVITIA [facility] 06-30-2022 11:43-0400 Respiratory rate 16 /min Sy AVITIA [facility] 06-30-2022 11:43-0400 Systolic blood pressure 129 mm[Hg] Sy AVITIA [facility] 03-22-2022 14:06-0400 Body height 165.1 cm Connor Lewislong Work Phone: [facility] 250 DO Work Phone: 03-22-2022 14:06-0400 Body mass index (BMI) [Ratio] 42.17 kg/m2 Connor Lewislong Work Phone: [facility] 250 DO Work Phone: 03-22-2022 14:06-0400 Body surface area Derived from formula 2.19 m2 Connor Marinelli Furlong Work Phone: [facility] 250 DO Work Phone: 03-22-2022 14:06-0400 Body weight 114.94 kg Connor Marinelli Furlong Work Phone: [facility] [employer] 250 DO Work Phone: 03-22-2022 14:06-0400 Diastolic blood pressure 70 mm[Hg] Connor G Furlong Work Phone: [facility] [employer] 250 DO Work Phone: 03-22-2022 14:06-0400 Heart rate 47 /min Connor G Furlong Work Phone: [facility] [employer] 250 DO Work Phone: 03-22-2022 14:06-0400 Systolic blood pressure 114 mm[Hg] Connor G Furlong Work Phone: [facility] [employer] 250 DO Work Phone: 08-16-2021 14:38-0400 Body height 165.1 cm Connor G Furlong Work Phone: [facility] [employer] 600 DO Work Phone: 08-16-2021 14:38-0400 Body mass index (BMI) [Ratio] 42.53 kg/m2 Connor G Furlong Work Phone: [facility] [employer] 600 DO Work Phone: 08-16-2021 14:38-0400 Body surface area Derived from formula 2.2 m2 Connor G Furlong Work Phone: [facility] [employer] 600 DO Work Phone: 08-16-2021 14:38-0400 Body weight 115.94 kg Connor G Furlong Work Phone: [facility] [employer] 600 DO Work Phone: 08-16-2021 14:38-0400 Diastolic blood pressure 74 mm[Hg] Connor G Furlong Work Phone: [facility] [employer] 600 DO Work Phone: 08-16-2021 14:38-0400 Heart rate 44 /min Connor G Furlong Work Phone: [facility] 600 DO Work Phone: 08-16-2021 14:38-0400 Systolic blood pressure 134 mm[Hg] Connor Tavaresng Work Phone: [facility] 600 DO Work Phone: Encounters Encounter Date Encounter Type Care Provider Facility Start: 05-16-2024 ambulatory Sy AVITIA Facili ty:[facility] Start: 12-14-2023 ambulatory Sy AVITIA Facili ty:[facility] Start: 10-26-2023 End: 10-27-2023 ambulatory Sy AVITIA Facility:[facility] Start: 10-09-2023 End: 10-10-2023 ambulatory DULCE ALCAZAR Facility:[facility] Start: 03-13-[address] WILLARD GAMBOA Facilit y:[facility] Start: 03-05-2023 End: 03-06-[address] SY AVITIA . Facility:[facility] Start: 03-02-2023 End: 03-03-2023 ambulatory Sy AVITIA Facility:[facility] Start: 02-20-2023 End: 02-21-2023 ambulatory DOCTOR CLAYTON Facility:[facility] Start: 12-06-2022 ambulatory Nick Richardson II Facility: Start: 12-06-2022 Office outpatient vi sit 25 minutes Connor Tavaresng Work Phone: [facility] 250 DO Work Phone: Start: 11-20-2022 Rx Renewal Connor Tavares ng Work Phone: [facility] 250 DO Work Phone: Start: 11-03-2022 End: [...] preprocedural laboratory examination DR LESVIA COWAN [facility] Start: 09-05-2022 End: 09-05-2022 Patient encounter procedure Sy AVITIA [facility] Start: 09-01-2022 End: 09-02-[address] CONNOR JEAN BAPTISTE Facility:[facility] Start: 09-01-2022 End: 09-02-2022 Encounter for preprocedural laboratory examination DR CONNOR JEAN BAPTISTE Facility:[facility] Start: 08-31-2022 End: 09-01-[address] CNONOR JEAN BAPTISTE Facility:[facility] Start: 08-22-2022 Rx Renewal Connor nj Work Phone: [facility] 250 DO Work Phone: Start: 08-22-2022 End: 08-23-[address] CONNOR JEAN BAPTISTE Facility:[facility] Start: 08-17-2022 End: 08-18-[address] CONNOR JEAN BAPTISTE Facility:[facility] Start: 08-11-2022 End: 08-11-2022 Lab Drop off DORA ALCAZAR [facility] Start: 08-11-2022 End: 08-11-2022 Patient encounter procedure DORA ALCAZAR [facility] Start: 08-07-2022 End: 08-08-[address] WILLARD GAMBOA Facility:[facility] Start: 08-01-2022 End: 08-02-[address] WILLARD GAMBOA Facility:[facility] Start: 07-17-2022 End: 07-18-[address] WILLARD GAMBOA Facility:[facility] Start: 07-12-2022 End: 07-13-[address] WILLARD GAMBOA Facility:[facility] Start: 06-30-2022 End: 07-01-[address] WILLARD GAMBOA Facility:[facility] Start: 06-30-2022 End: 06-30-2022 Patient encounter procedure Sy Haddad [place] [facility] Start: 06-26-2022 End: 06-27-[address] WILLARD [...] Start: 04-13-2022 End: 04-14-[address] WILLARD GAMBOA Facility:[facility] Start: 03-22-2022 ambulatory Connor Jean Baptiste Facility:[id number] Start: 03-22-2022 Office outpatient vi sit 25 minutes Connor G Furlong Work Phone: [facility] [employer] 250 DO Work Phone: Start: 03-22-2022 End: 03-23-[address] WILLARD GAMBOA Facility:[facility] Start: 01-31-2022 ambulatory Connor Jean Baptiste Facility: Start: 12-07-2021 Rx Renewal Connor Tavares ng Work Phone: [facility] [employer] 250 DO Work Phone: Start: 08-16-2021 Office outpatient vi sit 15 minutes Connor [facility]avaresng [facility] Work Phone: Imaging result normal Connor Butler urlong Work Phone: [facility] [employer] 250 DO Work Phone: Patient encounter status Connor Tavaresng Work Phone: [facility] [employer] 600 DO Work Phone: Procedures Date Procedure Procedure Detail Performing Clinician Start: 11-30-2020 Cystoscopy Sy CORONA Start: 07-14-2020 Cystoscopy Sy CORONA Start: 07-08-2020 Cystoscopy Sy CORONA Start: 07-17-2019 Extracorporeal shock wave lithotripsy of the bile duct Sy AVITIA Comment on above: Right Start: 10-29-2015 Gastric sleeve Sy AVITIA Arthroplasty of knee Connor Tavaresng Work Phone: Colonoscopy Connor Tavaresn g Work Phone: Esophagogastrostomy, antesternal or antethoracic Connor Lewsilong Work Phone: H/O: hysterectomy Sy CORONA Comment on above: Complete Hernia repair Connor nj Work Phone: Hysterectomy Connor marinelli Work Phone: Lithotripsy Connor marinelli Work Phone: Renal artery stent (physical object) Sy AVITIA Repair of ventral hernia Malgorzata AVITIA Plan of Treatment Date Care Activity Detail Author Start: 01-29-2024 FUV, Provider: Nick Richardson, Status: Pen, Time: 11:20 AM FUV, Provider: Nick Richardson, Status: Pen, Time: 11:20 AM [facility] 250 DO Work Phone: Start: 12-06-2022 FUV, Provider: Nick Richardson, Status: Pen, Time: 1:10 PM FUV, Provider: Nick Richardson, Status: Pen, Time: 1:10 PM [facility] 250 DO Work Phone: Start: 01-31-2022 FUV, Provider: Nick Sarkar, Status: Pen, Time: 2:20 PM FUV, Provider: Nick Sarkar, Status: Pen, Time: 2:20 PM [facility] 250 DO Work Phone: Immunizations Immunization Date Immunization Notes Care Provider Karlee rubio 10-15-2022 Fluzone High-Dose Quadrivalent 0.7 ML Intramuscular Suspension Prefilled Syringe Connor Jean Baptiste Work Phone: [facility] 250 DO Work Phone: 04-29-2022 Comirnaty 30 MCG/0.3 ML Intramuscular Suspension Connor Jean Baptiste Work Phone: [facility] 250 DO Work Phone: 09-08-2021 influenza virus vacc ine, unspecified formulation Sy AVITIA [facility] 08-29-2021 Fluzone High-Dose Quadrivalent 0.7 ML Intramuscular Suspension Prefilled Syringe Connor Marinelli Furlong Work Phone: [facility] 250 DO Work Phone: 08-29-2021 Pfizer-BioNTech COVI D-19 Vacc 30 MCG/0.3ML Intramuscular Suspension Connor G Furlong Work Phone: [facility] 250 DO Work Phone: 12-23-2020 Pfizer-BioNTech COVI D-19 Vacc 30 MCG/0.3ML Intramuscular Suspension Connor G Furlong Work Phone: [facility] 12-01-2020 Pfizer-BioNTech COVI D-19 Vacc 30 MCG/0.3ML Intramuscular Suspension Connor Marinelli Furlong Work Phone: [facility] 09-13-2020 pneumococcal polysaccharide vaccine, 23 valent Connor G Furlong Work Phone: [facility] 600 DO Work Phone: 09-03-2020 influenza, injectabl e, quadrivalent, contains preservative Connor G Furlong Work Phone: [facility] 600 DO Work Phone: 08-29-2020 influenza, high dose seasonal, preservative-free Connor G Furlong Work Phone: [facility] 250 DO Work Phone: 08-29-2020 pneumococcal polysaccharide vaccine, 23 valent Connor G Furlong Work Phone: [facility] 250 DO Work Phone: 08-11-2020 influenza, seasonal, injectable Connor G Furlong Work Phone: [facility] 600 DO Work Phone: 07-29-2020 influenza, seasonal, injectable Connor G Furlong [facility] Work Phone: 09-02-2019 influenza, high dose seasonal, preservative-free Connor G Furlong [facility] Work Phone: 08-29-2019 influenza virus vacc ine, unspecified formulation [facility] G Furlong [facility] Work Phone: 08-11-2019 influenza virus vacc ine, unspecified formulation Sy AVITIA [facility] 06-17-2019 zoster vaccine recombinant Connor G Furlong [facility] Work Phone: 05-29-2019 zoster vaccine recombinant Connor G Furlong [facility] DO Work Phone: 04-15-2019 zoster vaccine recombinant Connor G Furlong [facility] Work Phone: 03-29-2019 zoster vaccine recombinant Connor G Furlong [facility] DO Work Phone: 08-29-2018 influenza virus vacc ine, unspecified formulation Connor G Furlong [facility] DO Work Phone: 09-27-2017 Influenza, injectabl e, Madin Mathews Canine Kidney, preservative free, quadrivalent Connor G Furlong Work Phone: [facility] 600 DO Work Phone: 09-26-2017 influenza virus vacc ine, unspecified formulation Connor Marinelli Furlong Work Phone: [facility] 250 DO Work Phone: 10-19-2016 seasonal influenza, intradermal, preservative free Connor Marinelli Furlong Work Phone: [facility] 600 DO Work Phone: 10-06-2016 influenza, seasonal, injectable, preservative free Connor Lewislong Work Phone: [facility] 600 DO Work Phone: 04-10-2016 pneumococcal conjuga te vaccine, 13 valent [facility] Work [facility]: [place] [address] DO Work Phone: 08-07-2014 influenza virus vacc ine, unspecified formulation [facility] Work [facility]: [place] [address] DO Work Phone: 07-29-2014 influenza virus vacc ine, unspecified formulation Connor Lewislong Work Phone: [place] [id number] DO Work Phone: 07-29-2014 pneumococcal polysaccharide vaccine, 23 valent [facility] 600 DO Work Phone: 10-02-2013 pneumococcal conjuga te vaccine, 13 valent Connor Marinelli [place] Work Phone: [facility] 250 DO Work Phone: 02-14-2013 zoster vaccine, live Connor Marinelli [place] Work Phone: [facility] 250 DO Work Phone: 10-29-2012 influenza virus vacc ine, unspecified formulation Connor Lewislong Work Phone: [facility] 250 DO Work Phone: 10-29-2012 pneumococcal polysaccharide vaccine, 23 valent Connor Marinelli [place] Work Phone: [facility] 250 DO Work Phone: 02-21-2010 pneumococcal polysaccharide vaccine, 23 valent Connor Marinelli [place] Work Phone: [place] [address] DO Work Phone: 02-21-2010 tetanus toxoid, redu mariano diphtheria toxoid, and acellular pertussis vaccine, adsorbed Connor Marinelli [employer] Work Phone: [place] [address] DO Work Phone: 12-20-2009 novel influenza-H1N1 -09, preservative-free, injectable Connor Lewislong [facility] 600 DO Work Phone: 11-29-2009 novel influenza-H1N1 -09, preservative-free, injectable Connor Lewislong Work Phone: [place] [address] DO Work Phone: 09-06-1999 TD(adult) unspecifie d formulation Connor Marinelli [employer] [facility] DO Work Phone: influenza virus vacc ine, unspecified formulation Connor Lewislong Work Phone: [facility] 250 DO Work Phone: Comment on above: 2010Jul 2012 pneumococcal polysaccharide vaccine, 23 valent Connor Marinelli [place] Work Phone: [facility] 250 DO Work Phone: Comment on above: 2010 Payers Date Payer Category Payer Medicare [id number] 1959 Unknown [id number] 1950 Unknown [id number] 2.16. 840.1.723956.3.579.2.356 1950 Unknown [id number] 2.16. 840.1.460693.3.579.2.356 1950 Unknown [id number] 2.16. 840.1.642060.3.579.2.356 1950 Unknown [id number] 2.16.84 0.1.249614.3.579.2.593 1950 Unknown [id number] 2.16.84 0.1.758392.3.579.2.593 1950 Unknown [id number] 2.16.84 0.1.051147.3.579.2.593 1950 Unknown [id number] 2.16.84 0.1.441472.3.579.2.593 1950 Unknown [id number] 2.16.84 0.1.128845.3.579.2.593 1950 Unknown [id number] 2.16.84 0.1.487491.3.579.2.593 1950 Unknown [id number] 2.16.84 0.1.770135.3.579.2.593 1950 Unknown [id number] 2.16.84 0.1.820933.3.579.2.593 1950 Unknown [id number] 2.16.84 0.1.800486.3.579.2.593 1950 Unknown [id number] 2.16.84 0.1.268384.3.579.2.593 1950 Unknown [id number] 2.16.84 0.1.468144.3.579.2.593 1950 Unknown [id number] 2.16.84 0.1.736548.3.579.2.593 1950 Unknown [id number] 2.16.84 0.1.926902.3.579.2.593 1950 Unknown [id number] 2.16.84 0.1.380688.3.579.2.593 1950 Unknown [id number] 2.16.84 0.1.159082.3.579.2.593 1950 Unknown [id number] 2.16.84 0.1.254855.3.579.2.593 1950 Unknown [id number] 2.16.84 0.1.172258.3.579.2.593 1950 Unknown [id number] 2.16.84 0.1.689005.3.579.2.593 1950 Unknown [id number] 2.16.84 0.1.376810.3.579.2.593 1950 Unknown [id number] 2.16.84 0.1.433672.3.579.2.593 1950 Unknown [id number] 2.16.84 0.1.734607.3.579.2.593 1950 Unknown [id number] 2.16.84 0.1.007056.3.579.2.593 1950 Unknown [id number] 2.16.84 0.1.147356.3.579.2.593 1950 Unknown [id number] 2.16.84 0.1.796390.3.579.2.593 1950 Unknown [id number] 2.16.84 0.1.007030.3.579.2.593 1950 Unknown [id number] 2.16.84 0.1.422693.3.579.2.593 1950 Unknown [id number] 2.16.84 0.1.656887.3.579.2.593 1950 Unknown [id number] 2.16.84 0.1.484747.3.579.2.593 1950 Unknown [id number] 2.16.84 0.1.136564.3.579.2.593 1950 Unknown [id number] 2.16.84 0.1.974099.3.579.2.593 1950 Unknown [id number] 2.16.84 0.1.167044.3.579.2.593 1950 Unknown [id number] 2.16.84 0.1.938547.3.579.2.593 1950 Unknown [id number] 2.16.84 0.1.269608.3.579.2.593 1950 Unknown [id number] 2.16.84 0.1.409160.3.579.2.593 1950 Unknown [id number] 2.16.84 0.1.735491.3.579.2.593 1950 Unknown [id number] 2.16.8 40.1.259234.3.579.2.727 1950 Unknown [id number] 2.16.8 40.1.387957.3.579.2.727 1950 Unknown [id number] 2.16.8 40.1.313195.3.579.2.727 1950 Unknown [id number] 2.16.8 40.1.506955.3.579.2.727 1950 Unknown [id number] 2.16.8 40.1.743460.3.579.2.727 Unknown Social History Date Type Detail Facility Never a smoker Never a smoker [facility] 600 DO Work Phone: Start: 12-28-2021 Tobacco smoking status Never s moked tobacco (finding) [facility] Tobacco smoking status Never [facility] Sex Assigned At Female [facility] Functional Status Date Assessment Result Facility 08-24-2022 Functional Status N/A [facility] 06-30-2022 Functional Status N/A [facility] Discharge instructions 09-05-2022 Note Date & [...] With:Sy AVITIA Address: [facility] [address] [place] [address]- Business (1) When:03/05/2023 12:06:31 [place] Discharge instructions 06-30-2022 Note Date & Type Note Facility 06-30-2022 [facility] Discharg e instructions Patient Education 06/30/2022 12:01:44 Kidney Stones, Hyts-wy-Azpm Kidney Stones Kidney stones are rock-like masses [...] Follow these instructions at home: Medicines Take bcrd-vnk-dlreohm and prescription medicines only as told by [...] 04/02/2009 Document Revised: 03/02/2020 Document Reviewed: 03/02/2020 Elsevier Patient Education 2020 [employer] Follow Up Care 12/28/2021 15:15:51 With:MO HAYDEN, Sy Haddad, URL Address: [address] [place] [address]- When: Unknown [facility] Evaluation + Plan note Note Date & Type Note Facility Evaluation + Plan note Future Appointments Appointment Date:03/02/2023 11:00:00 AM Scheduled Provider:Sy AVITIA MD Location:[facility] Appointment Type:URO Office Visit [facility] Evaluation + Plan note Note Date & Type Note Facility Evaluation + Plan note Future Appointments Appointment Date:03/02/2023 11:00:00 AM Scheduled Provider:Sy AVITIA MD Location:[facility] Appointment Type:URO Office Visit Diagnostic Tests PendingUrine Culture 08/11/22 [facility] Evaluation + Plan note Note Date & Type Note Facility Evaluation + Plan note Future Appointments Appointment Date:03/02/2023 11:00:00 AM Scheduled Provider:Sy AVITIA MD Location:[facility] Appointment Type:URO Office Visit Diagnostic Tests PendingUroVysion Fish and Urine Cyto ([facility]) 09/05/22 [facility] History of Present illness Narrative Note Date & Type Note Facility History of Present illness Narrative Patient returns in follow-up of problems as noted. In the interim she is done well. She has none of the symptoms of cardiomyopathy that preceded her original diagnosis of heart failure. With guideline directed therapy in the advent of maintenance of sinus rhythm her symptoms [...] merits of diet exercise and weight loss. [facility] 250 DO Work Phone: History of Present [...] the merits of diet and weight loss. [facility] 250 DO Work Phone: Hospital course Narrative Note Date & Type Note Facility Hospital course Narrative No data available for this section [facility] Discharge instructions Note Date & Type Note Facility Hospital Discharge instructions No data available for this section [facility] Progress note Note Date & Type Note Facility Progress note No data available for this section [facility] Chief Complaint * I am doing ok [...] seen for a 6 month follow-up of.MIKY TAMANNA is being seen for a 6 month [...] DATE CREATED AUTHOR AUTHOR'S ORGANIZ ATION 12/07/2022 [facility] DATE CREATED AUTHOR AUTHOR'S ORGANIZ ATION 12/07/2022 [employer] DATE CREATED AUTHOR AUTHOR'S ORGANIZ ATION 03/09/2023 [facility] DATE CREATED AUTHOR AUTHOR'S ORGANIZ ATION 10/27/2023 Yuan Mossus [facility] Care Team (unrecognized sect ion and content) Personnel Name: STARLA JEAN BAPTISTE DONIS Address: [address] [place], [place] [address] [employer] [address] Personnel Name: MARKEL ESCAALNTECONNOR Address: Address: [address] [place], [place] [address] [employer] [address] Personnel Name: CONNOR JEAN BAPTISTE DO Address: Address: [address] [place], [place] [address] [employer] [address] Personnel Name: CONNOR JEAN BAPTISTE DO Address: Address: [address] [place], [place] [address] [employer] [address] FOR RECORDS PERTAINING TO PATIENTS WHO ARE [...] BE BASED ON THE PRIMARY CLINICAL RECORDS. [facility] [email or web address] provides no warranty or guarantee of the accuracy or completeness of information in this document.
== END 2023-11-01 11:15 | disposition home or self-care (01) ==
LOC: VC 11:14
PROVIDERS: Visit Provider Radiology Diagnostic Radiology
DX: I83.813 Varicose veins of bilateral lower extremities with pain (principal)
CPT/HCPCS: 36471

== ENCOUNTER 2023-11-15 10:55 | Outpatient (OUT) | payer MEDICARE, OTHER, SELFPAY ==
--- NOTE | 2023-11-15 10:56 | VEIN_ITS ---
[address] [address] Patient Name: MIKY NOLEN MRN: [id number] date: 1950 Sex: F Assigned Patient Location: Current Patient Location: Accession/Order Number: [id number] Exam Date: 11/15/2023 11:00 Report Date: 11/15/2023 12:53 At the request of: WILLARD GAMBOA Procedure: VC INJ Sclerosing SOLMULT Vein EXAMINATION: VC INJ Sclerosing SOLMULT Vein HISTORY: Pain due to varicose veins of bilateral legs I83.813 COMPARISON: No relevant comparison available. TECHNIQUE: The risks and benefits of the procedure were explained at length to the patient and informed written consent was obtained. Braxton Herrera was present and assisted. The procedure was performed under sterile technique. The patient's leg was wrapped with Coban and postprocedural verbal and written instructions provided. SCLEROSANT: 4 cc, 0.5% polidocanol VEIN(S) INJECTED: 26 veins in the left leg VISUALIZATION: Ultrasound was not used to visualize the sclerosant ANESTHESIA: Supercooled air COMPLICATIONS: None VEIN/VC INJ Sclerosing SOLMULT Vein IMPRESSION: Technically successful sclerotherapy as described Electronically authenticated by: WILLARD GAMBOA Date: 11/15/2023 12:53
== END 2023-11-15 10:56 | disposition home or self-care (01) ==
LOC: VC 10:56
PROVIDERS: PCP Radiology Diagnostic Radiology; Visit Provider Radiology Diagnostic Radiology
DX: I83.813 Varicose veins of bilateral lower extremities with pain (principal)
CPT/HCPCS: 36471

== ENCOUNTER 2024-03-12 10:29 | Outpatient (OUT) | payer MEDICARE, OTHER, SELFPAY ==
[2024-03-12 10:55] LABS: Basophils Percent Auto 0.8 % (0.2-2.0); Eosinophils Absolute Auto 0.2 10^3/uL (0.0-0.7); Eosinophils Percent Auto 3.4 % (0.9-7.0); Hemoglobin 10.7 g/dL (12.0-16.0); Immature Granulocytes Abs Auto 0.01 10^3/uL (0.00-0.03); Immature Granulocytes Pct Auto 0.2 % (0.0-0.5); Lymphocytes Absolute Auto 1.6 10^3/uL (1.2-3.8); Lymphocytes Percent Auto 31.7 % (20.5-60.0); Mean Corpuscular HGB Conc 31.5 g/dL (29.9-35.2); Mean Corpuscular Hemoglobin 26.8 pg (26.7-34.0); Mean Platelet Volume 9.4 fL (9.5-13.5); Monocytes Absolute Auto 0.4 10^3/uL (0.3-0.8); Neutrophils Absolute Auto 2.8 10^3/uL (1.4-6.5); Neutrophils Percent Auto 55.9 % (43.0-75.0); Platelet Count 207 10^3/uL (150-450); Red Cell Distribution Width 14.2 % (11.0-15.0)
[2024-03-12 11:33] LABS: Alanine Aminotransferase 16 U/L (14-59); Albumin Globulin Ratio 0.8; Albumin Level 3.2 g/dL (3.4-5.0); Alkaline Phosphatase 123 U/L (46-116); Anion Gap 12.3; Aspartate Amino Transferase 15 U/L (15-37); BUN Creatinine Ratio 24.4; Bilirubin Total 0.5 mg/dL (0.2-1.0); Calcium 9.9 mg/dL (8.5-10.1); Carbon Dioxide 26.9 mmol/L (21.0-32.0); Chloride 104 mmol/L (98-107); Estimated GFR (African America >60 (>=60); Estimated GFR (Non-African Ame >60 (>=60); Globulin 3.9 g/dL; Glucose 96 mg/dL (74-106); Magnesium 2.2 mg/dL (1.8-2.4); Phosphorus 3.6 mg/dL (2.6-4.7); Potassium 4.2 mmol/L (3.5-5.1); Sodium 139 mmol/L (136-145); Total Protein 7.1 g/dL (6.4-8.2)
[2024-03-12 12:14] LABS: Percent Iron Saturation 8.4 %
== END 2024-03-12 10:30 | disposition home or self-care (01) ==
LOC: LAB 10:31
PROVIDERS: PCP Radiology Diagnostic Radiology; Visit Provider Nurse Practitioner Family
DX: E55.9 Vitamin D deficiency, unspecified (principal); Z98.84 Bariatric surgery status; I10 Essential (primary) hypertension; E11.9 Type 2 diabetes mellitus without complications; K21.00 Gastro-esophageal reflux disease with esophagitis, without bleeding
CPT/HCPCS: 36415; 80053; 82306; 82607; 82728; 82746; 83540; 83550; 83735; 84100; 84425; 85025

== ENCOUNTER 2024-07-04 10:35 | Outpatient (OUT) | payer MEDICARE, OTHER, SELFPAY ==
--- NOTE | 2024-07-04 10:39 | US_ITS ---
[address] [address] Patient Name: MIKY NOLEN MRN: [id number] date: 1950 Sex: F Assigned Patient Location: Current Patient Location: Accession/Order Number: [id number] Exam Date: 07/04/2024 10:45 Report Date: 07/05/2024 08:10 At the request of: KRISTEN OWENS Procedure: US renal BI EXAMINATION: US renal BI HISTORY: Kidney Stone COMPARISON: No relevant comparison available. TECHNIQUE: Ultrasound examination was performed of the kidneys and urinary bladder. FINDINGS: RIGHT KIDNEY: Minimal cortical thinning, 10 mm in thickness. Nonobstructing 11 x 5 x 10 mm stone within inferior pole. Normal parenchymal echogenicity. Color Doppler demonstrates blood flow within the kidney. Kidney: 10.1 x 4.8 x 3.5 cm LEFT KIDNEY: No cortical thinning or mass. Nonobstructing 3 mm stone within mid body. Slight prominent renal pelvis, but no dilation of the calyces. Normal parenchymal echogenicity. Color Doppler demonstrates blood flow within the kidney. Kidney: 9.8 x 5 x 6.1 cm BLADDER: No visible wall thickening, mass, or calculi US/US renal BI IMPRESSION: 1. Bilateral nonobstructing nephrolithiasis. Electronically authenticated by: KYLE CHENEY Date: 07/05/2024 08:10
--- OUTSIDE RECORDS SUMMARY | 2024-07-04 10:55 | XMS_ITS | CCD ---
Author Organization [facility] CliniSymo Care Team Providers Care Cabinet Finisher Name Role Phone Connor Jean Baptiste Unavailable Unavailable Unavailable CONNOR JEAN BAPTISTE Primary Care Physician Debra GOSS, Nick Dan Attending Unav ailable Debra GOSS, Nick Dan Referring [facility]av ailable [facility] Primary Care Unavailab le Markel, Connor Ugarte Primary Care Unavailab le Debra GOSS, Nick Dan Attending Unav ailable Debra GOSS, Nick Dan Referring Unav ailable Furlong, Connor Torito Primary Care Unavailab kristine Sarkar, Dr. Nick Carter Attending Unava ilable Carrillo, VERO Garcia Referring Unavailable WEST, DR WILLARD Pittman Admitting Unavailable FURLONG, DR CONNOR Marinelli Primary Care Unavailable WEST, DR WILLARD Pittman Attending Unavailable WEST, DR WILLARD Pittmna Admitting Unavailable WEST, DR WILLARD Pittman Consulting [...] Primary Care Unavailable MISC, DOCTOR Consulting Unavailable AVITIA ., DR DAN Admitting Unavailable AVITIA ., DR DAN Attending Unavailable AVTIIA ., DR DAN Consulting Unavailable FURLONG, DR CONNOR Marinelli Primary Care Unavailable Kyle Blanc Consulting Unavailable BEE, DR WILLARD Pittman Consulting Unavailable BEE, DR WILLARD Pittman Admitting Unavailable FURLONG, DR CONNOR Marinelli Primary Care Unavailable WEST, DR WILLARD Pittman Attending Unavailable Kyle Blanc Consulting Unavailable WEST, DR WILLARD Pittman Consulting Unavailable WEST, DR WILLARD Pittman Admitting Unavailable FURLONG, DR CONNOR Marinelli Primary Care Unavailable WEST, DR WILLARD Pittman Attending Unavailable ZieberKyle Consulting Unavailable AVITIA ., DR DAN Admitting Unavailable AVITIA ., DR DAN Attending Unavailable AVITIA ., DR DAN Consulting Unavailable FURLONG, DR CONNOR Marinelli Primary Care Unavailable Zieber, Kyle Consulting Unavailable AVITIA ., DR DAN Admitting Unavailable AVITIA ., DR DAN Attending Unavailable AVITIA ., DR DAN Consulting Unavailable FURLONG, DR CONNOR Marinelli Primary Care Unavailable Zieber, Kyle Consulting Unavailable WEST, DR WILLARD Pittman Consulting Unavailable FURLONG, DR CONNOR Marinelli Primary Care Unavailable WEST, DR WILLARD Pittman Admgabriela Unavailable WEST, DR WILLARD Pittman Attending Unavailable FURLONG, DR CONNOR Marinelli Primary Care Unavailable WEST, DR WILLARD Pittman Admitting Unavailable WEST, DR WILLARD Pittman Consulting Unavailable WEST, DR WILLARD Pittman Attending Unavailable Zieber, Kyle Consulting Unavailable FURLONG, DR CONNOR Marinelli Primary Care Unavailable WEST, DR WILLARD Pittman Consulting Unavailable WEST, DR WILLARD Pittman Admgabriela Unavailable WEST, DR WILLARD Pittman Attending Unavailable WEST, DR WILLARD Pittman Consulting Unavailable WEST, DR WILLARD Pittman Attending Unavailable WEST, DR WILLARD Pittman Admitting Unavailable FURLONG, DR CONNOR Marinelli Primary Care Unavailable Zieber, Kyle Consulting Unavailable WEST, DR WILLARD Pittman Consulting Unavailable WEST, DR WILLARD Pittman Admgabriela Unavailable FURLONG, DR CONNOR Marinelli Primary Care Unavailable WEST, DR WILLARD Pittman Attending Unavailable ZiebKyle loya Consulting Unavailable WEST, DR WILLARD Pittman Consulting Unavailable FURLONG, DR CONNOR Marinelli Primary Care Unavailable WEST, DR WILLARD Pittman Admgabriela Unavailable WEST, DR WILLARD Pittman Attending Unavailable FURLONG, DR CONNOR Marinelli Primary Care Unavailable AVITIA ., DR DAN Admgabriela Unavailable AVITIA ., DR DAN Attending Unavailable AVITIA ., DR DAN Consulting Unavailable SANTHOSH NICK Consulting Unavailable FURLONG, DR CONNOR Marinelli Consulting Unavailable FURLONG, DR CONNOR Marinelli Admitting Unavailable FURLONG, DR CONNOR Marinelli Attending Unavailable FURLONG, DR CONNOR Marinelli Primary Care Unavailable ZiebKyle loya Consulting Unavailable FURLONG, DR CONNOR Marinelli Primary Care Unavailable STEPANIC, DR LAKHANI Attending Unavailable STEPANIC, DR LAKHANI Consulting Unavailable STEPANIC, DR LAKHANI Admitting Unavailable MISC, DOCTOR Admitting Unavailable MISC, DOCTOR Attending Unavailable AVITIA ., DR DAN Consulting Unavailable FURLONG, DR CONNOR Marinelli Primary Care Unavailable WEST, DR WILLARD Pittman Consulting Unavailable Zieber, Kyle Consulting Unavailable WEST, DR WILLARD Pittman Consulting Unavailable WEST, DR WILLARD Pittman Attending Unavailable WEST, DR WILLARD Pittman Admitting Unavailable FURLONG, DR CONNOR Marinelli Primary Care Unavailable WEST, DR WILLARD Pittman Consulting Unavailable FURLONG, DR CONNOR Marinelli Primary Care Unavailable WEST, DR WILLARD Pittman Admitting Unavailable WEST, DR WILLARD Pittman Attending Unavailable Zieber, Kyle Consulting Unavailable WEST, DR WILLARD Pittman Consulting Unavailable FURLONG, DR CONNOR Marinelli Primary Care Unavailable WEST, DR WILLARD Pittman Admitting Unavailable WEST, DR WILLARD Pittman Attending Unavailable WEST, DR WILLARD Pittman Consulting Unavailable FURLONG, DR CONNOR Marinelli Primary Care Unavailable WEST, DR WILLARD Pittman Admitting Unavailable WEST, DR WILLARD Pittman Attending Unavailable Zieber, Kyle Consulting Unavailable WEST, DR WILLARD Pittman Consulting Unavailable FURLONG, DR CONNOR Marinelli Primary Care Unavailable WEST, DR WILLARD Pittman Admgabriela Unavailable WEST, DR WILLARD Pittman Attending Unavailable Zieber, Kyle Consulting Unavailable WEST, DR WILLARD Pittman Admgabriela Unavailable WEST, DR WILLARD Pittman Consulting Unavailable [...] Unavailable WEST, DR WILLARD Pittman Attending Unavailable ZieberKyle Consulting Unavailable FURLONG, DR CONNOR Marinelli Primary [...] WEST, DR WILLARD Pittman Attending Unavailable Zieber, Kyle Consulting Unavailable WEST, DR WILLARD Pittman Consulting Unavailable WEST, DR WILLARD Pittman Attending Unavailable WEST, DR WILLARD Pittman Admitting Unavailable FURLONG, DR CONNOR Marinelli Primary Care Unavailable WEST, DR WILLARD Pittman Consulting Unavailable FURLONG, DR CONNOR Marinelli Primary Care Unavailable WEST, DR WILLARD Pittman Admitting Unavailable WEST, DR WILLARD Pittman Attending Unavailable AVITIA ., DR DAN Admitting Unavailable AVITIA ., DR DAN Attending Unavailable AVITIA ., DR DAN Consulting Unavailable FURLONG, DR CONNOR Marinelli Primary Care Unavailable PITTSTON, DR WILLARD Pittman Consulting Unavailable WEST, DR WILLARD Pittman Admitting Unavailable FURNG, DR CONNOR Marinelli Primary Care Unavailable PITTSTON, DR WILLARD Pittman Attending Unavailable MIS, DOCTOR Admitting Unavailable MISC, DOCTOR Attending Unavailable MISC, DOCTOR Consulting [facility]available [facility] DR CONNOR Marinelli Primary Care Unavailable FURLONG, CONNOR Marinelli Attending Unavailable FURLONG, CONNOR Marinelli Referring Unavailable FURLONG, CONNOR Marinelli Primary Care Unavailable FURLONG, CONNOR Marinelli Referring Unavailable FURLONG, CONNOR Marinelli Primary Care Unavailable Furlong DO, Connor Ugarte Primary Care Provider NICK PEREZ Attending Unavailable HERMILALONG, CONNOR UGARTE Primary Care Unavailab NICK Rousseau Attending Unavailable FURLONG, CONNOR UGARTE Primary Care Unavailab NICK Rousseau Referring Unavailable JR. CHAPO, LESVIA Iraheta Attending Unavaila analisa COWAN JR., LESVIA Iraheta Referring Unavaila Yehuda Wright Attending Unavailable Yehuda AVITIA Attending Unavailable DORA ALCAZAR Attending Unavailable Orzech, Radha Lopes Attending Unavailable Orzech, Radha X Attending Unavailable Orzech, Radha X Attending Unavailable Yehuda AVITIA Attending Unavailable Allergies Allergy Classification Reported Allergen(s) Allergy Type Date of Onset Reaction(s) Facility (20 sources) Ciprofloxacin; Translations: [ciprofloxacin] Drug Allergy 12-12-19 Eruption of skin (disorder), Unknown [facility] [place] (17 sources) Sulfonamides (Antibiotic); Translations: [Sulfa Drugs] Allergy to drug (finding) Eruption of skin (disorder) [facility] [place] (14 sources) corn extract; Translations: [[place]] Drug Allergy 02-18-20 Unknown (qualifier value) [facility] (10 sources) Dog; Translations: [Dogs] Allergy to substance Unknown (qualifier value) [facility] (13 sources) Mold Extract; Translations: [mold] Drug Allergy 06-21-20 23 Unknown (qualifier value) [facility] (10 sources) Milk Products; Translations: [Milk Products] Food allergy Unknown (qualifier value) [facility] (10 sources) house dust mite allergen extract; Translations: [house dust mite allergen extra] Allergy to substance Unknown (qualifier value) [facility] (2 sources) Ciprofloxacin Drug Allergy 01-31-20 14 [facility] (1 source) house dust allergenic extract Drug Allergy [facility] (2 sources) Lactose Drug Allergy [facility] (1 source) Sulfonamides (Antibiotic) Drug allergy (disorder) [facility] (2 sources) Sulfamethoxazole / Trimethoprim; Translations: [SULFAMETHOXAZOLE-T RIMETHOPRIM] Drug Allergy 11-13-19 23 [facility] Rep[facility] (4 sources) Sulfonamides (Antibiotic); Translations: [SULFA (SULFONAMIDE ANTIBIOTICS)] Propensity to adverse reactions to drug (disorder) 06-21-20 Unknown [facility] Medications Current Medications Medication Drug Class(es) Dates Sig (Normalized) Sig (Original) 8 hr acetaminophen 650 mg extended release oral tablet (17 sources) Start: 07-01-2020 take 1 tablet by mouth twice daily Tylenol 8 HR Arthritis Pain 650 mg oral tablet, extended release 650 mg = 1 tab(s), Oral, BID, Refills(s) 0 Start Date: 07/01/20 Status: Ordered take 1 tablet by rosalinda th every eight hours as needed acetaminophen (Tylenol 8 HOUR) 650 mg ER tablet Take 1 tablet (650 mg) by mouth every 8 hours if needed for mild pain (1 - 3). Do not crush, chew, or split. Active allopurinol 300 mg oral tablet (17 sources) Xanthine Oxidase Inhibitor Start: 03-12-2024 take 1 tablet by mouth once daily allopurinol 300 mg Tab 300 mg = 1 tab(s), Oral, Daily, # 90 cap(s), Refills(s) 3, Pharmacy: [id number], 165, cm, 10/26/23 8:42:00 EST, Height/Length Dosing, 97.5, kg, 10/26/23 8:42:00 EST, Weight Dosing Start Date: 03/12/24 Status: Ordered Start: 02-02-2022 take 1 tablet by rosalinda th once daily allopurinol 300 mg Tab 300 mg = 1 tab(s), Oral, Daily, # 90 cap(s), Refills(s) 3, Pharmacy: [id number], 165, cm, 03/02/23 12:05:00 EDT, Height/Length Dosing, 113, kg, 03/02/23 12:05:00 EDT, Weight Dosing Start Date: 03/21/23 Status: Ordered Calcium Carbonate (16 sources) Start: 07-29-2019 take 1 tablet by rosalinda th twice daily Caltrate 600 + D tab(s), Oral, BID Start Date: 07/29/19 Status: Ordered Caltrate 600+D T ABS Take 1 tablet daily Quantity: 0 Refills: 0 Ordered: 16-Aug-2021 DO Active CALCIUM CARBONATE-VITAMIN D3 ORAL (1 source) take 1 tablet by mouth once daily CALCIUM CARBONATE-VITAMIN D3 ORAL Take 1 tablet by mouth once daily. Active Centrum Silver (9 sources) Start: 2019 take 1 tablet by mouth once daily Centrum Silver 1 tab(s), Oral, Daily, Refill(s) 0 Start Date: 07/01/20 Status: Ordered cholecalciferol 0.025 mg oral tablet (8 sources) Vitamin D take 1 tablet by mouth twice daily cholecalciferol (Vitamin D-3) 25 MCG (1000 UT) tablet Take 1 tablet (25 mcg) by mouth 2 times a day. Active collagen/biotin/ascorbic acid (COLLAGEN 1500 PLUS C ORAL) (1 source) collagen/biotin/ ascorbi c acid (COLLAGEN 1500 PLUS C ORAL) Take 1 capsule by mouth once daily. Active dronedarone 400 mg oral tablet (17 sources) Antiarrhythmic Start: 2018 take 400 mg by mouth twice daily Multaq 400 mg, Oral, BID, Refills(s) 0 Start Date: 07/29/19 Status: Ordered fexofenadine hydrochloride 60 mg oral tablet (1 source) Histamine-1 Receptor Antagonist take 1 tablet by mouth once daily fexofenadine (Hannah) 60 mg tablet Take 1 tablet (60 mg) by mouth once daily. Active lisinopril 2.5 mg oral tablet (12 sources) Angiotensin Converting Enzyme Inhibitor Start: 2021 End: 2024 lisinopril 2.5 mg Tab Refills(s) 0 Start Date: 06/30/22 Status: Ordered loratadine 10 mg oral tablet (12 sources) Start: 2018 take 10 mg by mouth once daily Claritin 10 mg, Oral, Daily, Refills(s) 0 Start Date: 07/29/19 Status: Ordered End: 03-06-2024 take 1 capsule by mouth once daily loratadine 10 mg capsule Take 1 capsule by mouth once daily. 03/06/2024 Discontinued (Other) lovastatin 10 mg oral tablet (14 sources) HMG-CoA Reductase Inhibitor Start: 03-06-2024 take 1 tablet by mouth once daily lovastatin (Mevacor) 10 mg tablet Indications: Hyperlipidemia, unspecified hyperlipidemia type Take 1 tablet (10 mg) by mouth once daily. 90 tablet 3 03/06/2024 Active Start: 03-02-2023 End: 03-06-2024 lovastatin 10 mg Tab Refills (s) 0 Start Date: 03/02/23 Status: Ordered take 1 tablet by rosalinda th once daily Lovastatin 10 MG Oral Tablet TAKE 1 TABLET DAILY DIRECTED. Quantity: 90 Refills: 3 Ordered: 06-Dec-2022 Nick Perez MD Active Abelino Krill Oil (4 sources) Start: 07-29-2019 take 1 capsule by mouth once daily Abelino Krill Oil Abelino Krill Oil, one cap., Oral, Daily Start Date: 07/29/19 Status: Ordered [id number] A-vit K-lut (Centrum Silver Women) 8 mg iron-400 mcg-50 mcg tablet (1 source) take 1 tablet by mouth once daily [id number] A-vit K-lut (Centrum Silver Women) 8 mg iron-400 mcg-50 mcg tablet Take 1 tablet by mouth once daily. Active omega-3 fatty acids-fish oil (One-Per-Day Jay-3) 684-1,200 mg capsule (1 source) omega-3 fatty acids-fish oil (One-Per-Day Jay-3) 684-1,200 mg capsule Take 1 capsule (1,200 mg) by mouth once daily. Active OTC joint supplement (9 sources) Start: 07-01-2020 take 1 tablet by mouth once daily OTC joint supplement OTC joint supplement, one tab, Oral, Daily Start Date: 07/01/20 Status: Ordered potassium bicarbonate 25 meq effervescent oral tablet (1 source) take 1 tablet by mouth twice daily potassium bicarbonate (K-Lyte) 25 mEq effervescent tablet Take 1 tablet (25 mEq) by mouth 2 times a day. Active rivaroxaban 20 mg oral tablet (18 sources) Factor Xa Inhibitor Start: 03-06-2024 take 1 tablet by mouth once daily rivaroxaban (Xarelto) 20 mg tablet Indications: Paroxysmal atrial fibrillation (Multi) Take 1 tablet (20 mg) by mouth once daily. 90 tablet 3 03/06/2024 Active Start: 07-29-2019 End: 03-06-2024 take 1 tablet by mouth once daily Xarelto 20 mg oral t ablet 20 mg = 1 tab(s), Daily Start Date: 07/29/19 Status: Ordered Vitamin D3 (9 sources) Start: 07-29-2019 Vitamin D3 1,0 00 [...] procedure, # 2 cap(s), Refills(s) 0, Pharmacy: [id number], 165, cm, 06/30/22 11:48:00 EDT, Height/Length Dosing, 113, kg, 06/30/22 11:4... Start Date: 08/22/22 Status: Ordered Collagen Ultra Oral Capsule (7 sources) take 1 capsule by mouth once daily Collagen Ultra Oral Capsule TAKE 1 CAPSULE Daily Quantity: 0 Refills: 0 Ordered: 16-Aug-2021 DO Active K-Effervescent 25 mEq oral tablet, effervescent (5 sources) Start: 10-26-2023 take 1 tablet by mouth twice daily K-Effervescent 25 mEq oral tablet, effervescent 25 mEq = 1 tab(s), Oral, BID, # 60 tab(s), Refills(s) 11, Pharmacy: [id number], 165, cm, 10/26/23 8:42:00 EST, Height/Length Dosing, 97.5, kg, 10/26/23 8:42:00 EST, Weight Dosing Start Date: 10/26/23 Status: Ordered levothyroxine sodium 0.137 mg oral capsule (17 sources) l-Thyroxine Start: 07-29-2019 take 1 capsule by mouth once daily levothyroxine 137 mcg (0.137 mg) oral capsule 137 microgram = 1 cap(s), Oral, Daily Start Date: 07/29/19 Status: Ordered take 1 tablet by rosalinda th once daily before mealtime levothyroxine (Synthroid, Levoxyl) 137 m cg tablet Take 1 tablet (137 mcg) by mouth once daily in the morning. Take before meals. Active Jay 3 CAPS (7 sources) Jay 3 CAPS BASSAM E DIRECTED. Quantity: 0 Refills: 0 Ordered: 16-Aug-2021 DO Active Problems Active Problems Problem Classification Problem Date Documented Da te Episodic/Chronic Biliary tract disease (9 sources) Biliary calculus 12-07-2020 Episodic Calculus of urinary tract (20 sources) Kidney stone; Translations: [Calculus of kidney] Onset: 06-30-2022 Episodic Cardiac dysrhythmias (13 sources) Paroxysmal atrial fibrillation; Translations: [Atrial fibrillation] Onset: 08-17-2023 03-06-2024 Chronic Chronic kidney disease (2 sources) Chronic kidney disease, stage 2 (mild); Translations: [Chronic kidney disease, stage 2 (mild)] Onset: 02-18-2024 Chronic Diabetes mellitus with complications (2 sources) Type 2 diabetes mellitus with diabetic chronic kidney disease; Translations: [Type 2 diabetes mellitus with diabetic chronic kidney disease] Onset: 02-18-2024 Chronic Diabetes mellitus without complication (10 sources) Diabetes mellitus; Translations: [Type 2 diabetes mellitus without complications] Onset: 02-24-2023 08-25-2019 Chronic Disorders of lipid metabolism (14 sources) Hyperlipidemia; Translations: [Other and unspecified hyperlipidemia] Onset: 08-17-2023 03-06-2024 Chronic Essential hypertension (10 sources) Hypertensive disorder; Translations: [Essential (primary) hypertension] Onset: 02-24-2023 08-25-2019 Chronic Genitourinary symptoms and ill-defined conditions (9 sources) Genuine stress incontinence 08-16-2020 Chronic Genitourinary symptoms and ill-defined conditions (20 sources) Microscopic hematuria; Translations: [Asymptomatic microscopic hematuria] Onset: 06-30-2022 Episodic Heart valve disorders (9 sources) Irregular heart beat 08-25-2019 Episodic Hypertension with complications and secondary hypertension (2 sources) Hypertensive chronic kidney disease with stage 1 through stage 4 chronic kidney disease, or unspecified chronic kidney disease; Translations: [Hypertensive chronic kidney disease with stage 1 through stage 4 chronic kidney disease, or unspecified chronic kidney disease] Onset: 02-18-2024 Chronic Nutritional deficiencies (1 source) Vitamin D deficiency, unspecified; Translations: [VITAMIN D DEFICIENCY UNSPECIFIED] Onset: 02-24-2023 Chronic Other aftercare (7 sources) Drug therapy finding; Translations: [Long-term (current) use of anticoagulants] Episodic Other gastrointestinal disorders (4 sources) Bariatric surgery status; Translations: [BARIATRIC SURGERY STATUS] Onset: 02-20-2023 Episodic Other hereditary and degenerative nervous system conditions (1 source) Mild cognitive impairment, so stated; Translations: [Mild cognitive impairment of uncertain or unknown etiology] Onset: 07-23-2023 Chronic Other nutritional; endocrine; and metabolic disorders (20 sources) Body mass index 40+ - severely obese; Translations: [Body Mass Index 40.0-44.9, adult] 07-29-2019 Chronic Other nutritional; endocrine; and metabolic disorders (2 sources) Morbid obesity; Translations: [Morbid obesity] Chronic Other nutritional; endocrine; and metabolic disorders (1 source) Obesity; Translations: [Obesity, unspecified] Chronic Other nutritional; endocrine; and metabolic disorders (2 sources) Body mass index 30+ - obesity; Translations: [Body mass index (BMI) 36.0-36.9, adult] Onset: 03-06-2024 03-06-2024 Chronic Other nutritional; endocrine; and metabolic disorders (2 sources) Body mass index (BMI) 36.0-36.9, adult; Translations: [Body mass index (BMI) 36.0-36.9, adult] Onset: 03-06-2024 Chronic Other screening for suspected conditions (not mental disorders or infectious disease) (13 sources) CT of abdomen abnormal; Translations: [Encounter for screening mammogram for malignant neoplasm of breast] Onset: 05-04-2022 12-07-2020 Episodic Dorene-; endo-; and myocarditis; cardiomyopathy (except that caused by tuberculosis or sexually transmitted disease) (13 sources) Cardiomyopathy; Translations: [Other primary cardiomyopathies] Onset: 08-17-2023 03-06-2024 Chronic Residual codes; unclassified (1 source) Sleep apnea, unspecified; Translations: [Sleep apnea, unspecified] Onset: 07-23-2023 Chronic Residual codes; unclassified (1 source) Edema, unspecified; Translations: [EDEMA UNSPECIFIED] Onset: 02-24-2023 Episodic Residual codes; unclassified (2 sources) Never smoked tobacco; Translations: [Other specified health status] Onset: 12-24-2023 03-06-2024 Episodic Residual codes; unclassified (2 sources) Other specified health status; Translations: [Other specified health status] Onset: 12-24-2023 Episodic Septicemia (except in labor) (9 sources) Sepsis due to Enterobacter 08-16-2020 Episodic Thyroid disorders (19 sources) Hypothyroidism; Translations: [Unspecified acquired hypothyroidism] Onset: 02-20-2023 08-25-2019 Chronic Unclassified (9 sources) Asymptomatic microscopic hematuria 08-16-2020 Unclassified (9 sources) Drug therapy finding 10-20-2020 Unclassified (1 source) GASTR-ESOPH RFLX DS ESPHGTS W/O BLD; Translations: [GASTR-ESOPH RFLX DS ESPHGTS W/O BLD] Onset: 02-24-2023 Unclassified (5 sources) Obstructive hydronephrosis 10-26-2023 Urinary tract infections (10 sources) Urinary tract infectious disease; Translations: [Urinary tract infection, site not specified] Onset: 08-11-2022 08-16-2020 Episodic Past or Other Problems Problem Classification Problem Date Documented Da te Episodic/Chronic Other aftercare (4 sources) Encounter for surgical aftercare following surgery on the circulatory system; Translations: [ENC SURG AFTRCARE FLW SURG CIRC SYS] Onset: 2 Episodic Other circulatory disease (8 sources) Carotid bruit; Translations: [Other symptoms involving cardiovascular system] Onset: 3 08-17-2023 Episodic Other circulatory disease (7 sources) H/O: hypertension; Translations: [Personal history of other diseases of circulatory system] Resolved: 1 Episodic Other nutritional; endocrine; and metabolic disorders (7 sources) H/O: diabetes mellitus; Translations: [Personal history of other endocrine, metabolic, and immunity disorders] Resolved: 1 Episodic Phlebitis; thrombophlebitis and thromboembolism (10 sources) [...] Never smoked tobacco; Translations: [Never a smoker] Unclassified (1 source) Onset: 4 03-06-2024 Varicose veins of lower extremity (5 sources) Varicose veins of bilateral lower extremities with pain; Translations: [VARICOSE VNS TANMAY LOW EXTREM W/PAIN] Onset: 2 Episodic Results Test Name Value Interpretation Reference Range Facil ity ECG 12 Lead[place] 03-06-2024 Sinus bradycardia with occasional PVCs Low voltage QRS Nonspecific ST change QTc 391 ms [facility] Work Phone: BASIC METABOLIC PANLon 02-17 Anion gap [Moles/Vol] 6 mmol/L Normal 5-15 [facility] Comment on above: Performed By: #### B YONATAN THYR #### [facility] ([id number]) [address], [address] [place] [address] Calcium [Mass/Vol] 9.8 mg/dL Normal 8.5-10.5 [facility] Comment on above: Performed By: #### B YONATAN, THYR #### [facility] ([id number]) [address], [address] [place] [address] Chloride [Moles/Vol] 106 mmol/L Normal 98-109 [facility] Comment on above: Performed By: #### B YONATAN, THYR #### [facility] ([id number]) [address], [address] [place] [address] CO2 [Moles/Vol] 31 mmol/L Normal 22-32 [facility] Comment on above: Performed By: #### B YONATAN, THYR #### [facility] ([id number]) [address], [address] [place] [address] Creatinine [Mass/Vol] 0.90 mg/dL Normal 0.40-1.00 [facility] Comment on above: Result Comment: METH OD TRACEABLE TO IDMS STANDARD Performed By: #### B YONATAN, THYR #### [facility] ([id number]) [address], [address] [place] [address] GFR/1.73 sq M.predicted among non-blacks MDRD (S/P/Bld) [Vol rate/Area] 68 mL/min/{1.73_m2} Normal >59 [facility] Comment on above: Result Comment: Reported eGFR is based on the CKD-EPI 2020 equation that does not use a race coefficient. Performed By: #### B YONATAN, THYR #### [facility] ([id number]) [address], [address] [place] [address] Glucose [Mass/Vol] 105 mg/dL High 65-99 [facility] Comment on above: Performed By: #### B YONATAN, THYR #### [facility] ([id number]) [address], [address] [place] [address] Potassium [Moles/Vol] 4.2 mmol/L Normal 3.5-5.0 [facility] Comment on above: Performed By: #### Win TAM, THYR #### [facility] ([id number]) [address], [address] [place] [address] Sodium [Moles/Vol] 143 mmol/L Normal 134-146 [facility] Comment on above: Performed By: #### B MP, THYR #### [facility] ([id number]) [address] [place] [address] Urea nitrogen [Mass/Vol] 19 mg/dL Normal 5-27 [facility] Comment on above: Performed By: #### B MP, THYR #### [facility] ([id number]) [address] [place] [address] THYROID PROFILEon 02-18-2024 Free T4 [Mass/Vol] 1.92 ng/dL High 0.61-1.60 [facility] Comment on above: Performed By: #### B MP, THYR #### [facility] ([id number]) [address] [place] [address] TSH 0.58 uIU/mL Normal 0.49-4.67 [facility] Comment on above: Performed By: #### B MP, THYR #### [facility] ([id number]) [address] [place] [address] Ambulatory Visit Summaryon 1 Ambulatory Visit Summary MIKY FUENTES :1950 Visit Date:10/26/2023 Ambulatory Visit Instructions Your Diagnosis Ureteral stone with hydronephrosis Kidney stone Tests Performed Urnls Dip Stick Auto w/o Microscopy POC 72571 Your Care Team Attending Physician - Yehuda AVITIA MD Primary Care Physician - CONNOR [...] AM EST With: Where: [facility] Normal [address] [place] [address] [place] [address]- \.br\ You Need to Schedule the Following Appointments\.br\ Follow Up with MO HAYDEN, Yehuda Haddad, URL When: \.br\ Where:\.br\ [address] [place] [address]\.br\ [place] [address]-\.br\ Medications\.br\ What How Much When Instructions\.br\ New potassium bicarbonate (K-Effervescent 25 mEq oral tablet, effervescent) 1 Tablets By Mouth 2 times a day Refills: 11 Pickup at [facility]\.br\ Unchanged allopurinol (allopurinol 300 mg Tab) [...] if questions or concerns \.br\ Pharmacy Information\.br\ [facility]: [address] [place], [place] [id number] [phone]\.br\ \.br\ What How Much When Why Comments\.br\ Stop Taking tamsulosin (Flomax 0.4 mg Cap) 1 Capsules By Mouth Every day Right flank pain Kidney stones Gross hematuria\.br\ Test Results\.br\ Urnls Dip Stick Auto w/o Microscopy POC 92397 (10/26/2023)\.br\ Bilirubin Urine Dipstick - Negative\.br\ Blood Urine Dipstick - 3+ Large\.br\ Glucose Urine Dipstick - Negative\.br\ Ketones Urine Dipstick - Negative\.br\ Leukocytes Urine Dipstick - Negative\.br\ Nitrite Urine Dipstick - Negative\.br\ Protein Urine Dipstick - 2+ (100 mg/dl)\.br\ Specific [place] Urine Dipstick - 1.025\.br\ Urine Appearance Urine Dipstick - Slightly cloudy\.br\ Urine Color Urine Dipstick - Yellow\.br\ Urobilinogen Urine Dipstick - Normal 0.2-1 EU/dl\.br\ pH Urine Dipstick - 5\.br\ Allergies\.br\ [place] (Unknown)\.br\ Dogs (Unknown)\.br\ Milk Products (Unknown)\.br\ Mold (Unknown)\.br\ ciprofloxacin (Rash)\.br\ house dust mite allergen extract (Unknown)\.br\ sulfa drugs (Rash)\.br\ Problems\.br\ Ongoing - Any problem that you are currently receiving treatment for.\.br\ Abnormal abdominal CT scan\.br\ Anticoagulated\.br \ Asymptomatic microscopic hematuria\.br\ BMI 40.0-44.9, adult\.br\ BMI 45.0-49.9, adult\.br\ Cholelithiasis\.br \ Diabetes\.br\ Enterobacter sepsis\.br\ Gross hematuria\.br\ History of kidney stones\.br\ Hypertension\.br\ Hypothyroidism\.br \ Irregular heart beat\.br\ Kidney stone\.br\ Nocturia\.br\ Stress incontinence\.br\ Ureteral stone\.br\ Ureteral stone with hydronephrosis\.br \ Urinary frequency\.br\ Urinary urgency\.br\ UTI (urinary tract [...] \.br\ 8 oz (237 mL) of milk, calcium-fortifiedn on-dairy milk, and calcium-fortifiedf ruit juice. Calcium-fortified means that calcium has been [...] \.br\ Have a salad and fruit Bolden [facility] Patient Educationon 10-26-20 Patient Education Nephrology Dietary [...] Spinach (cooked), rhubarb, beets, sweet potatoes, and Swedish chard. ? Peanuts. ? Potato chips, albanian fries, and baked potatoes with skin on. ? Nuts and nut products. ? Chocolate. ? If you regularly take a diuretic medicine, make sure to eat at least 1 or 2 servings of fruits or vegetables that are high in potassium each day. These include: ? Avocado. ? Banana. ? [place], prune, carrot, or tomato juice. ? Baked [...] fish oil, or vitamin B6. ? Take wfjr-gaa-tkrdlvl and prescription medicines only as told by your health care provider. These include supplements. What foods sh (more content not included)... Normal [facility] RAD - MISCon 10-26-2023 [facility] [id number]#1 .00TIFF Normal [facility] [id number]#1 .00TIFF Normal [facility] Urology Office/Clinic Noteon 10-26-2023 Urology Office/Clinic Note Chief Complaint CT Review HPI Staff 2 wk f/u with KUB. Saw DAXA at prior OV. Previous Dx: R flank pain, kidney stones, gross hematuria. S/p ESWL 11/18/20. CT AP wo con done 10/11/23 at [facility].Was given Tamsulosin, however stopped taking after a [...] Follow-up With When Contact Information MO HAYDEN, Yehuda Haddad, URL [facility] [place] [id number]- Additional Instructions: 6 months Patient Education Dietary [...] OTC joint sup (more content not included)... [facility] Comment on above: Result Comment: Elec tronically Signed By: Yehuda AVITIA MD\.br\Date and Time Signed: 10/26/23 09:11 EST\.br\Electronically Co-Signed By: Chantal Bishop.jaison\Date and Time Co-Signed: 10/26/23 09:09 EST RAD - CT Reporton 10-15-2023 RAD - CT Report [id number]# 1.00TIFF [facility] RAD - CT Report [id number]#1 .00TIFF [facility] RAD - MISCon 10-15-2023 RAD - MISC [id number]#1 .00TIFF Normal [facility] [id number]#1 .00TIFF Normal [facility] Ambulatory Visit Summaryon 1 12-10-2022 Ambulatory Visit Summary MIKY FUENTES :1950 Visit Date:10/09/2023 Ambulatory Visit Instructions Your Diagnosis Gross hematuria Right flank pain Tests Performed Urnls Dip Stick Auto w/o Microscopy POC 93447 Your Care Team Attending Physician - DORA ALCAZAR PA-C Primary Care Physician - CONNOR [...] Urnls Dip Stick Auto w/o Microscopy POC 31502 (10/09/2023) Bilirubin Urine Dipstick - Negative Blood Urine Dipstick - 3+ Large Glucose Urine Dipstick - Negative Ketones Urine Dipstick - Negative Leukocytes Urine Dipstick - Negative Nitrite Urine Dipstick - Negative Protein Urine Dipstick - 3+ (300 mg/dl) Specific [place] Urine Dipstick - >=1.030 Urine Appearance Urine Dipstick - Clear Urine Color Urine Dipstick - Yellow Urobilinogen Urine Dipstick - Normal 0.2-1 EU/dl pH Urine Dipstick - 5.5 Allergies [place] (Unknown) Dogs (Unknown) Milk Products (Unknown) Mold [...] for choosing us for your care. Normal [facility] Patient Educationon 10-09-20 Patient Education Urology [...] these instructions at home: Medicines ? Take dxgi-mrs-scvgjrt and prescription medicines only as told by [...] the blood stops without treatment. ? Take cgyo-ydi-aomtjmg and prescription medicines only as told by your health care provider. ? Drink enough fluid to keep your urine pale yellow. This information is not intended to replace advice given to you by your health care provider. Make sure you discuss any questions you have with your health care provider. Document Revised: 06/15/2021 Document Reviewed: 06/15/2021 [employer] Patient Education ? 2022 [employer]. [facility] Urology Office/Clinic Noteon 10-09-2023 Urology Office/Clinic [...] Daily, # 30 cap(s), Refills(s) 0, Pharmacy: [facility], 165, cm, 10/09/23 15:24:00 EST, Height/Length Dosing, 113, kg, 10/09/23 15:24:00 EST, Weight Dosing CT Abdomen w/o Contrast E&M of Est. Patient Moderate 30-39 Min 82589 2. Kidney stones (N20.0: Calculus of kidney) see #1 KUB from this spring showed several medium (6-7mm) R renal stones has had multiple lithotripsy in past Ordered: tamsulosin, 0.4 mg = 1 cap(s), Oral, Daily, # 30 cap(s), Refills(s) 0, Pharmacy: [facility], 165, cm, 10/09/23 15:24:00 EST, Height/Length Dosing, 113, kg, 10/09/23 15:24:00 EST, Weight Dosing CT Abdomen w/o Contrast E&M of Est. Patient Moderate 30-39 Min 49271 3. Gross hematuria (R31.0: Gross hematuria) see #1 Ordered: tamsulosin, 0.4 mg = 1 cap(s), Oral, Daily, # 30 cap(s), Refills(s) 0, Pharmacy: [facility], 165, cm, 10/09/23 15:24:00 EST, Height/Length Dosing, 113, kg, 10/09/23 15:24:00 EST, Weight Dosing CT Abdomen w/o Contrast E&M of Est. Patient Moderate 30-39 Min 43352 Urnls Dip Stick Auto w/o Microscopy POC 47922 Follow-up With When Contact Information DORA ALCAZAR PA-C, URL [address] [place] [address] Business (1) Additional Instructions: pending results of imaging/testing, [...] Oral, B (more content not included)... Normal [facility] Comment on above: Result Comment: Elec tronically Signed By: INGE CARDONA, DORA Walton\Date and Time Signed: 10/09/23 15:49 EST CREATININEon 03-05-2023 Creatinine [Mass/Vol] 1.16 mg/dL Critically high 0.55-1.02 [facility] Comment on above: Performed By: #### C AIYANA #### [facility] [address] [address] [address] Alysha Machuca EGFR-AF AUSTRIAN 56 mL/min/1.73m2 Critically low >=60 [facility] Comment on above: Performed By: #### C AIYANA #### [facility] [address] [address] [address] Alysha Machuca EGFR-NON AF AUSTRIAN 46 mL/min/1.73m2 Critically low >=60 [facility] Comment on above: Performed By: #### C AIYANA #### [facility] [address] [address] [address] ABD/PELVIS WO CONon [...] to patient's symptoms. 2.Cholelithiasis. Electronically authenticated by: KYLE BLANC Date: 2023-03-05 15:08 Normal [facility] VITAMIN B1 (THIAMINE)on 01-28 Vit. B1, Whole Blood 132.2 nmol/L Normal 66.5-200.0 [facility] Comment on above: Performed By: #### V ITB1T ####[facility] [address] [place] [address]Dr. Alysha Machuca CBC AUTO DIFFon 02-20-2023 BASO # 0.1 103/ul Normal 0.0-0.1 [facility] Comment on above: Performed By: #### C BC #### [facility] [address] [address] [address] Alysha Machuca Basophils/100 WBC (Bld) 0.9 % Normal 0.2-2.0 [facility] Comment on above: Performed By: #### C BC #### [facility] [address] [address] [address] Alysha Machuca EO # 0.2 103/ul Normal 0.0-0.7 [facility] Comment on above: Performed By: #### C BC #### [facility] [address] [address] [address] Alysha Machuca Eosinophils/100 WBC (Bld) 3.0 % Normal 0.9-7.0 [facility] Comment on above: Performed By: #### C BC #### [facility] [address] [address] [address] Alysha Machuca Erythrocyte distribution width (RBC) [Ratio] 13.9 % Normal 11.0-15.0 [facility] Comment on above: Performed By: #### C BC #### [facility] [address] [place] [address] Dr. Alysha Machuca Hematocrit (Bld) [Volume fraction] 39.5 % Normal 36.0-48.0 [facility] Comment on above: Performed By: #### C BC #### [facility] [address] [place] [address] Dr. Alysha Machuca Hemoglobin (Bld) [Mass/Vol] 12.7 g/dL Normal 12.0-16.0 [facility] Comment on above: Performed By: #### C BC #### [facility] [address] [place] [address] Dr. Alysha Machuca IG # 0.01 10e3/ul Normal 0.00-0.03 [facility] Comment on above: Performed By: #### C BC #### [facility] [address] [place] [address] Dr. Alysha Machuca IG % 0.2 % Normal 0.0-0.5 [facility] Comment on above: Performed By: #### C BC #### [facility] [address] [place] [address] Dr. Alyhsa Machuca LYMPH # 1.7 103/ul Normal 1.2-3.8 [facility] Comment on above: Performed By: #### C BC #### [facility] [address] [place] [address] Dr. Alysha Machuca Lymphocytes/100 WBC (Bld) 30.7 % Normal 20.5-60.0 [facility] Comment on above: Performed By: #### C BC #### [facility] [address] [place] [address] Dr. Alysha Machuca MANUAL DIFF REQ NO Normal [facility] Comment on above: Performed By: #### C BC #### [facility] [address] [place] [address] Dr. Alysha Machuca MCH (RBC) [Entitic mass] 29.3 pg Normal 26.7-34.0 [facility] Comment on above: Performed By: #### C BC #### [facility] [address] [address] [address] Alysha Machuca MCHC (RBC) [Mass/Vol] 32.2 g/dL Normal 29.9-35.2 [facility] Comment on above: Performed By: #### C BC #### [facility] [address] [address] [address] Alysha Machuca MCV (RBC) [Entitic vol] 91.0 fL Normal 81.0-99.0 [facility] Comment on above: Performed By: #### C BC #### [facility] [address] [address] [address] Alysha Machuca MONO # 0.4 103/ul Normal 0.3-0.8 [facility] Comment on above: Performed By: #### C BC #### [facility] [address] [place] [address] Dr. Alysha Machuca Monocytes/100 WBC (Bld) 6.8 % Normal 1.7-12.0 [facility] Comment on above: Performed By: #### C BC #### [facility] [address] [place] [address] Dr. Alysha Machuca NEUT # 3.3 103/ul Normal 1.4-6.5 [facility] Comment on above: Performed By: #### C BC #### [facility] [address] [place] [address] Dr. Alysha Machuca Neutrophils/100 WBC (Bld) 58.4 % Normal 43.0-75.0 [facility] Comment on above: Performed By: #### C BC #### [facility] [address] [place] [address] Dr. Alysha Machuca Platelet mean volume (Bld) [Entitic vol] 9.3 fL Critically low 9.5-13.5 [facility] Comment on above: Performed By: #### C BC #### [facility] [address] [place] [address] Dr. Alysha Machuca PLT 186 103/ul Normal 150-450 [facility] Comment on above: Performed By: #### C BC #### [facility] [address] [address] [address] Alysha Machuca RBC 4.34 106/ul Normal 4.20-5.40 [facility] Comment on above: Performed By: #### C BC #### [facility] [address] [address] [address] Alysha Machuca WBC 5.6 103/ul Normal 4.0-11.0 [facility] Comment on above: Performed By: #### C BC #### [facility] [address] [address] [address] Alysha Machuca FERRITINon 02-20-2023 Ferritin [Mass/Vol] 36.0 ng/mL Normal 8.0-252.0 [facility] Comment on above: Performed By: #### F ERR, B12FOL, FETIBC, VITAD ####[facility] [address] [place] [address]Dr. Alysha Machuca IRON AND TIBCon 02-20-2023 % SATURATION 15.8 % Normal [facility] Comment on above: Performed By: #### F ERR, B12FOL, FETIBC, VITAD ####[facility] [address] [place] [address]Dr. Alysha Machuca Iron [Mass/Vol] 53.0 ug/dL Normal 50.0-170.0 [facility] Comment on above: Performed By: #### F ERR, B12FOL, FETIBC, VITAD ####[facility] [address] [place] [address]Dr. Alysha Machuca TIBC DIRECT 335.0 ug/dL Normal 250.0-450.0 [facility] Comment on above: Performed By: #### F ERR, B12FOL, FETIBC, VITAD ####[facility] [address] [place] [address]Dr. Alysha Machuca MAGNESIUMon 02-20-2023 Magnesium [Mass/Vol] 1.9 mg/dL Normal 1.8-2.4 [facility] Comment on above: Performed By: #### P HOS, CMP, MG #### [facility] [address] [address] [address] Alysha Machuca PHOSPHORUSon 02-20-2023 Phosphate [Mass/Vol] 3.9 mg/dL Normal 2.6-4.7 [facility] Comment on above: Performed By: #### P HOS, CMP, MG #### [facility] [address] [address] [address] Alysha Machuca PROF 14(COMP METB)on 023 Albumin [Mass/Vol] 3.4 g/dL Normal 3.4-5.0 [facility] Comment on above: Performed By: #### P HOS, CMP, MG #### [facility] [address] [address] [address] Alysha Machuca Albumin/Globulin [Mass ratio] 0.9 {ratio} Normal [facility] Comment on above: Performed By: #### P HOS, CMP, MG #### [facility] [address] [place] [address] Dr. Alysha Machuca ALP [Catalytic activity/Vol] 123 U/L Critically high 46-116 [facility] Comment on above: Performed By: #### P HOS, CMP, MG #### [facility] [address] [address] [address] Alysha Machuca ALT [Catalytic activity/Vol] 21 U/L Normal 14-59 [facility] Comment on above: Performed By: #### P HOS, CMP, MG #### [facility] [address] [address] [address] Alysha Machuca Anion gap [Moles/Vol] 13.8 mmol/L Normal [facility] Comment on above: Performed By: #### P HOS, CMP, MG #### [facility] [address] [address] [address] Alysha Machuca AST [Catalytic activity/Vol] 15 U/L Normal 15-37 [facility] Comment on above: Performed By: #### P HOS, CMP, MG #### [facility] [address] [place] [address] Dr. Alysha Machuca Bilirubin [Mass/Vol] 0.5 mg/dL Normal 0.2-1.0 [facility] Comment on above: Performed By: #### P HOS, CMP, MG #### [facility] [address] [address] [address] Alysha Machuca Calcium [Mass/Vol] 9.6 mg/dL Normal 8.5-10.1 [facility] Comment on above: Performed By: #### P HOS, CMP, MG #### [facility] [address] [address] [address] Alysha Machuca Chloride [Moles/Vol] 103 mmol/L Normal 98-107 [facility] Comment on above: Performed By: #### P HOS, CMP, MG #### [facility] [address] [place] [address] Dr. Alysha Machuca CO2 [Moles/Vol] 25.2 mmol/L Normal 21.0-32.0 [facility] Comment on above: Performed By: #### P HOS, CMP, MG #### [facility] [address] [place] [address] Dr. Alysha Machuca Creatinine [Mass/Vol] 0.95 mg/dL Normal 0.55-1.02 [facility] Comment on above: Performed By: #### P HOS, CMP, MG #### [facility] [address] [place] [address] Dr. Alysha Machuca EGFR-AF AUSTRIAN >60 Normal >=60 [facility] Comment on above: Performed By: #### P HOS, CMP, MG #### [facility] [address] [place] [address] Dr. Alysha Machuca EGFR-NON AF AUSTRIAN 58 mL/min/1.73m2 Critically low >=60 [facility] Comment on above: Performed By: #### P HOS, CMP, MG #### [facility] [address] [place] [address] Dr. Alysha Machuca Globulin (S) [Mass/Vol] 3.6 g/dL Normal [facility] Comment on above: Performed By: #### P HOS, CMP, MG #### [facility] [address] [place] [address] Dr. Alysha Machuca Glucose [Mass/Vol] 96 mg/dL Normal 74-106 [facility] Comment on above: Performed By: #### P HOS, CMP, MG #### [facility] [address] [place] [address] Dr. Alysha Machuca Potassium [Moles/Vol] 4.0 mmol/L Normal 3.5-5.1 [facility] Comment on above: Performed By: #### P HOS, CMP, MG #### [facility] [address] [place] [address] Dr. Alysha Machuca Protein [Mass/Vol] 7.0 g/dL Normal 6.4-8.2 [facility] Comment on above: Performed By: #### P HOS, CMP, MG #### [facility] [address] [place] [address] Dr. Alysha Machuca Sodium [Moles/Vol] 138 mmol/L Normal 136-145 [facility] Comment on above: Performed By: #### P HOS, CMP, MG #### [facility] [address] [place] [address] Dr. Alysha Machuca Urea nitrogen [Mass/Vol] 21.0 mg/dL Critically high 7.0-18.0 [facility] Comment on above: Performed By: #### P HOS, CMP, MG #### [facility] [address] [place] [address] Dr. Alysha Machuca Urea nitrogen/Creatini ne [Mass ratio] 22.1 mg/mg Normal [facility] Comment on above: Performed By: #### P HOS, CMP, MG #### [facility] [address] [place] [address] Dr. Alysha Machuca VIT B12 AND FOLATEon 023 Cobalamin (Vitamin B12) [Mass/Vol] 652.0 pg/mL Normal 193.0-986.0 [facility] Comment on above: Performed By: #### F ERR, B12FOL, FETIBC, VITAD ####[facility] [address] [address]Dr. Alysha Machuca FOLATE 18.30 ng/mL Normal 8.60-58.90 [facility] Comment on above: Performed By: #### F ERR, B12FOL, FETIBC, VITAD ####[facility] [address] [id number]. Alysha Machuca VITAMIN D 25 OHon 02-20-2023 VIT D 25-OH 41.7 ng/mL Normal [facility] Comment on above: Performed By: #### F ERR, B12FOL, FETIBC, VITAD ####[facility] [address] [id number]. Alysha Machuca VIT D RANGES SEE BELOW Normal [facility] Comment on above: Result Comment: <20 ng/mL Vit D deficient 20 - <30 ng/mL Vit D insufficient 30 - 100 ng/mL Vit D sufficient >100 ng/mL Potential Toxicity Performed By: #### F ERR, B12FOL, FETIBC, VITAD ####[facility] [address] [id number]. Alysha Machuca XR KUB 1 VIEWon 02-20-2023 [...] 1. Stable right nephrolithiasis. Electronically authenticated by: KYLE BLANC Date: 2023-02-20 15:57 Normal [facility] Office Visit (Cardiology)on 12-06-2022 Follow-up visit Diagnoses/Problems Assessed Anticoagulated (V58.61) (Z79.01) Hyperlipidemia (272.4) (E78.5) Non-ischemic cardiomyopathy (425.4) (I42.8) Paroxysmal atrial fibrillation (427.31) (I48.0) Class 2 obesity with body mass index (BMI) of 36.0 to 36.9 in adult (278.00,V85.36) (E66.9,Z68.36) Never a smoker Orders Class 2 obesity with body mass index (BMI) of 36.0 to 36.9 in adult Healthy Weight Tips; Status:Complete; Done: [id number] Some eating tips that can help you lose weight.; Status:Complete; Done: 96Xaa8854 Hyperlipidemia Renew: Lovastatin 10 MG Oral Tablet; TAKE 1 TABLET DAILY DIRECTED Paroxysmal atrial fibrillation IO EKG Electrocardiogram- 12 Lead; Status:Complete; Done: 55Phy0161 SocHx: Never a smoker Tobacco Use Screening; Status:Complete; Done: 41Okp3103 Patient Instructions Please bring all medicines, vitamins, and herbal supplements with you when you come to the office. Prescriptions will not be filled unless you are compliant with your follow up appointments or have a follow up appointment scheduled as per instruction of your physician. Refills should be requested at the time of your visit. Follow up in January 2024. Chief Complaint MIKY FUENTES is being seen for a 9 month [...] MG Oral TabletTAKE 1 TABLET Twice daily Jay 3 [place] DIRECTED. Tylenol Arthritis Ext Relief [...] negative for complaint. Vitals Vital Signs Recorded: [id number] 01:27PM Heart Rate43, Apical Larlkusv990, RUE, Sitting Nmpstkzgb30, RUE, Sitting Height5 ft 5 in Ajasul984 lb BMI Gdfjmnztmc20.94 kg/m2 BSA Calculated2.07 Tobacco Useb) No PHQ-2 [...] Exam Constitutional (more content not included)... Normal [facility] Tobacco Screening.on 023 Adult depression screening assessment No [facility] 250 DO Work Phone: Fall risk assessment a) No falls within the last year [facility] y 250 DO Work Phone: Tobacco use status [facility]PH[facility] b) No [facility] y 250 DO Work Phone: VC INJ SCL [employer] WORK[employer] APPRENTICE VEINSon 0 11-03-2022 VC INJ SCL [employer]ENT[employer] VEINS Patient: MIKY FUENTES Exam Date: 11/03/2022 : 1950 Gender:F Ordering : DR WILLARD GAMBOA M.D. Admission #: [id number] Family : Order #: [id number] CLICK HERE TO VIEW EXAM RADIOLOGY REPORT PROCEDURE: VEIN CENTER INJECTION SCLEROSING SOLUTION MULTIPLE VEINS SAME COMPARISON: VC INJ SCL [employer] WORK[employer] APPRENTICE VEINS, 10/27/2022. VC INJ SCL [employer]ENTICE VEINS, 10/16/2022. INDICATIONS: Pain co-occurrent and due [...] Gamboa MD on 11/03/2022 at 12:37 Normal [facility] XR KUB 1 VIEWon 11-03-2022 XR [...] compared to prior study. Electronically authenticated by: KYLE BLANC Date: 2022-11-03 12:52 Normal [facility] VC INJ SCL [employer] WORK[employer] APPRENTICE VEINSon 1 VC INJ SCL [employer]PRENTICE VEINS Patient: MIKY FUENTES Exam Date: 10/27/2022 : 1950 Gender:F Ordering : DR WILLARD GAMBOA M.D. Admission #: [id number] Family : Order #: [id number] CLICK HERE TO VIEW EXAM RADIOLOGY REPORT PROCEDURE: VEIN CENTER INJECTION SCLEROSING SOLUTION MULTIPLE VEINS SAME COMPARISON: VC INJ SCL [employer] WORK[employer] APPRENTICE VEINS, 10/16/2022. VC INJ SCL [employer] APPRENTICE VEINS, 10/06/2022. INDICATIONS: Pain co-occurrent and due [...] Gamboa MD on 10/27/2022 at 11:46 Normal [facility] VC INJ SCL [employer] WORK[employer] APPRENTICE VEINSon 1 12-17-2021 VC INJ SCL [employer]ENTICE VEINS Patient: MIKY FUENTES Exam Date: 10/16/2022 : 1950 Gender:F Ordering : DR WILLARD GAMBOA M.D. Admission #: [id number] Family : Order #: [id number] CLICK HERE TO VIEW EXAM RADIOLOGY REPORT PROCEDURE: VEIN CENTER INJECTION SCLEROSING SOLUTION MULTIPLE VEINS SAME COMPARISON: VC INJ SCL [employer] APPRENTICE VEINS, 10/06/2022. INDICATIONS: Pain co-occurrent and due [...] Technically successful sclerotherapy as described Dictated by: Kyle Blanc M.D. on 10/17/2022 at 08:11 Approved by: Kyle Blanc M.D. on 10/17/2022 at 08:12 Normal [facility] CREATININEon 10-10-2022 Creatinine [Mass/Vol] 1.11 mg/dL Critically high 0.55-1.02 [facility] Comment on above: Performed By: #### C AIYANA ####[facility] [address] [address]Dr. Alysha Machuca EGFR-AF AUSTRIAN 59 mL/min/1.73m2 Critically low >=60 [facility] Comment on above: Performed By: #### C AIYANA ####[facility] [address] [address]Dr. Alysha Machuca EGFR-NON AF AUSTRIAN 48 mL/min/1.73m2 Critically low >=60 [facility] Comment on above: Performed By: #### C AIYANA ####[facility] [address] [address]Dr. Alysha Machuca VC INJ SCL [employer] WORK[employer] APPRENTICE VEINSon 1 12-07-2021 VC INJ SCL [employer]PRENTICE VEINS Patient: MIKY FUENTES Exam Date: 10/06/2022 : 1950 Gender:F Ordering : DR WILLARD GAMBOA M.D. Admission #: [id number] Family : Order #: [id number] CLICK HERE TO VIEW EXAM RADIOLOGY REPORT [...] Gamboa MD on 10/06/2022 at 13:45 Normal [facility] VC CONSULT FOLLOWUPon 2021 VC CONSULT FOLLOWUP Patient: MIKY FUENTES Exam Date: 09/26/2022 : 1950 Gender:F Ordering : DR WILLARD GAMBOA M.D. Admission #: [id number] Family : Order #: [id number] CLICK HERE TO VIEW EXAM RADIOLOGY REPORT [...] the physical exam and consultation Dictated by: Kyle Blanc M.D. on 09/26/2022 at 15:44 Approved by: Kyle Blanc M.D. on 09/26/2022 at 15:46 Normal [facility] VC EXT VENOUS RT LIMITEDon 1 11-26-2021 VC EXT VENOUS RT LIMITED Patient: MIKY FUENTES Exam Date: 09/26/2022 : 1950 Gender:F Ordering : DR WILLARD GAMBOA M.D. Admission #: [id number] Family : Order #: [id number] CLICK HERE TO VIEW EXAM RADIOLOGY REPORT [...] saphenous varicosities within right leg. Dictated by: Kyle Blanc M.D. on 09/26/2022 at 15:43 Approved by: Kyle Blanc M.D. on 09/26/2022 at 15:44 Normal [facility] VC INJ FOAM SCLERO W US MLTI on 09-20-2022 VC INJ FOAM SCLERO W US MLTI Patient: MIKY FUENTES Exam Date: 09/20/2022 : 1950 Gender:F Ordering : DR WILLARD GAMBOA M.D. Admission #: [id number] Family : Order #: [id number] CLICK HERE TO VIEW EXAM RADIOLOGY REPORT [...] with Varithena(r) 2. Intraoperative ultrasound guidance Physician: Kyle Blanc M.D. Anesthesia: None. Indications for Procedure: [...] days. PERSONNEL: Braxton Herrera R.N. Dictated by: Kyle Blanc M.D. on 09/20/2022 at 15:38 Approved by: Kyle Blanc M.D. on 09/20/2022 at 15:43 Normal [facility] VC CONSULT FOLLOWUPon 2021 VC CONSULT FOLLOWUP Patient: MIKY FUENTES Exam Date: 09/07/2022 : 1950 Gender:F Ordering : DR WILLARD GAMBOA M.D. Admission #: [id number] Family : Order #: [id number] CLICK HERE [...] Gamboa MD on 09/07/2022 at 13:04 Normal [facility] VC EXT VENOUS LT LIMITEDon 1 11-07-2021 VC EXT VENOUS LT LIMITED Patient: MIKY FUENTES Exam Date: 09/07/2022 : 1950 Gender:F Ordering : DR WILLARD GAMBOA M.D. Admission #: [id number] Family : Order #: [id number] CLICK HERE TO VIEW EXAM RADIOLOGY REPORT [...] MD on 09/07/2022 at 11:59 Normal [facility] CBC AUTO DIFFon 09-01-2022 BASO # 0.0 103/ul Normal 0.0-0.1 [facility] Comment on above: Performed By: #### C BC #### [facility] [address] [address] [address] Alysha Machuca Basophils/100 WBC (Bld) 0.6 % Normal 0.2-2.0 [facility] Comment on above: Performed By: #### C BC #### [facility] [address] [address] [address] Alysha Machuca EO # 0.3 103/ul Normal 0.0-0.7 [facility] Comment on above: Performed By: #### C BC #### [facility] [address] [place] [address] Dr. Alysha Machuca Eosinophils/100 WBC (Bld) 4.3 % Normal 0.9-7.0 [facility] Comment on above: Performed By: #### C BC #### [facility] [address] [place] [address] Dr. Alysha Machuca Erythrocyte distribution width (RBC) [Ratio] 14.6 % Normal 11.0-15.0 [facility] Comment on above: Performed By: #### C BC #### [facility] [address] [place] [address] Dr. Alysha Machuca Hematocrit (Bld) [Volume fraction] 39.7 % Normal 36.0-48.0 [facility] Comment on above: Performed By: #### C BC #### [facility] [address] [place] [address] Dr. Alysha Machuca Hemoglobin (Bld) [Mass/Vol] 13.1 g/dL Normal 12.0-16.0 [facility] Comment on above: Performed By: #### C BC #### [facility] [address] [place] [address] Dr. Alysha Machuca IG # 0.01 10e3/ul Normal 0.00-0.03 [facility] Comment on above: Performed By: #### C BC #### [facility] [address] [place] [address] Dr. Alysha Machuca IG % 0.2 % Normal 0.0-0.5 [facility] Comment on above: Performed By: #### C BC #### [facility] [address] [place] [address] Dr. Alysha Machuca LYMPH # 1.9 103/ul Normal 1.2-3.8 [facility] Comment on above: Performed By: #### C BC #### [facility] [address] [place] [address] Dr. Alysha Machuca Lymphocytes/100 WBC (Bld) 29.5 % Normal 20.5-60.0 [facility] Comment on above: Performed By: #### C BC #### [facility] [address] [place] [address] Dr. Alysha Machuca MANUAL DIFF REQ NO Normal [facility] Comment on above: Performed By: #### C BC #### [facility] [address] [place] [address] Dr. Alysha Machuca MCH (RBC) [Entitic mass] 29.8 pg Normal 26.7-34.0 [facility] Comment on above: Performed By: #### C BC #### [facility] [address] [place] [address] Dr. Alysha Machuca MCHC (RBC) [Mass/Vol] 33.0 g/dL Normal 29.9-35.2 [facility] Comment on above: Performed By: #### C BC #### [facility] [address] [place] [address] Dr. Alysha Machuca MCV (RBC) [Entitic vol] 90.2 fL Normal 81.0-99.0 [facility] Comment on above: Performed By: #### C BC #### [facility] [address] [place] [address] Dr. Alysha Machuca MONO # 0.5 103/ul Normal 0.3-0.8 [facility] Comment on above: Performed By: #### C BC #### [facility] [address] [place] [address] Dr. Alysha Machuca Monocytes/100 WBC (Bld) 7.0 % Normal 1.7-12.0 [facility] Comment on above: Performed By: #### C BC #### [facility] [address] [place] [address] Dr. Alysha Machuca NEUT # 3.8 103/ul Normal 1.4-6.5 [facility] Comment on above: Performed By: #### C BC #### [facility] [address] [place] [address] Dr. Alysha Machuca Neutrophils/100 WBC (Bld) 58.4 % Normal 43.0-75.0 [facility] Comment on above: Performed By: #### C BC #### [facility] [address] [place] [address] Dr. Alysha Machuca Platelet mean volume (Bld) [Entitic vol] 9.5 fL Normal 9.5-13.5 [facility] Comment on above: Performed By: #### C BC #### [facility] [address] [place] [address] Dr. Alysha Machuca PLT 235 103/ul Normal 150-450 [facility] Comment on above: Performed By: #### C BC #### [facility] [address] [place] [address] Dr. Alysha Machuca RBC 4.40 106/ul Normal 4.20-5.40 [facility] Comment on above: Performed By: #### C BC #### [facility] [address] [place] [address] Dr. Alysha Machuca WBC 6.6 103/ul Normal 4.0-11.0 [facility] Comment on above: Performed By: #### C BC #### [facility] [address] [place] [address] Dr. Alysha Machuca PROF CHEM 8 (BAS METB)on Anion gap [Moles/Vol] 7.7 mmol/L Normal [facility] Comment on above: Performed By: #### B MP ####[facility] [address] [id number]. Alysha Machuca Calcium [Mass/Vol] 9.8 mg/dL Normal 8.5-10.1 [facility] Comment on above: Performed By: #### B MP ####[facility] [address] [id number]. Alysha Machuca Chloride [Moles/Vol] 104 mmol/L Normal 98-107 [facility] Comment on above: Performed By: #### B MP ####[facility] [address] [address]Dr. Alysha Machuca CO2 [Moles/Vol] 29.2 mmol/L Normal 21.0-32.0 [facility] Comment on above: Performed By: #### B MP ####[facility] [address] [place], [place] [address]Dr. Alysha Machuca Creatinine [Mass/Vol] 1.05 mg/dL Critically high 0.55-1.02 [facility] Comment on above: Performed By: #### B MP ####[facility] [address] [address]Dr. Alysha Machuca EGFR-AF AUSTRIAN >60 Normal >=60 [facility] Comment on above: Performed By: #### B MP ####[facility] [address] [place], [place] [address]Dr. Alysha Machuca EGFR-NON AF AUSTRIAN 52 mL/min/1.73m2 Critically low >=60 [facility] Comment on above: Performed By: #### B MP ####[facility] [address] [address]Dr. Alysha Machuca Glucose [Mass/Vol] 107 mg/dL Critically high 74-106 [facility] Comment on above: Performed By: #### B MP ####[facility] [address] [place], [place] [address]Dr. Alysha Machuca Potassium [Moles/Vol] 3.9 mmol/L Normal 3.5-5.1 [facility] Comment on above: Performed By: #### B MP ####[facility] [address] [id number]. Alysha Machuca Sodium [Moles/Vol] 137 mmol/L Normal 136-145 [facility] Comment on above: Performed By: #### B MP ####[facility] [address] [address]Dr. Alysha Machuca Urea nitrogen [Mass/Vol] 16.0 mg/dL Normal 7.0-18.0 [facility] Comment on above: Performed By: #### B MP ####[facility] [address] [address]Dr. Alysha Machuca Urea nitrogen/Creatini ne [Mass ratio] 15.2 mg/mg Normal [facility] Comment on above: Performed By: #### B MP ####[facility] [address] [address]Dr. Alysha Machuca VC INJ FOAM SCLERO W US MLTI on 08-31-2022 VC INJ FOAM SCLERO W US MLTI Patient: MIKY FUENTES Exam Date: 08/31/2022 : 1950 Gender:F Ordering : DR WILLARD GAMBOA M.D. Admission #: [id number] Family : Order #: [id number] CLICK HERE TO VIEW EXAM RADIOLOGY REPORT [...] compressi (more content not included)... Normal [facility] VC CONSULT FOLLOWUPon 2021 VC CONSULT FOLLOWUP Patient: MIKY FUENTES Exam Date: 08/22/2022 : 1950 Gender:F Ordering : DR WILLARD GAMBOA M.D. Admission #: [id number] Family : Order #: [id number] CLICK HERE TO VIEW EXAM RADIOLOGY REPORT [...] Gamboa MD on 08/22/2022 at 10:45 Normal [facility] VC EXT VENOUS RT LIMITEDon 1 VC EXT VENOUS RT LIMITED Patient: MIKY FUENTES Exam Date: 08/22/2022 : 1950 Gender:F Ordering : DR WILLARD GAMBOA M.D. Admission #: [id number] Family : Order #: [id number] CLICK HERE TO VIEW EXAM RADIOLOGY REPORT [...] Gamboa MD on 08/22/2022 at 10:21 Normal [facility] VC INJ FOAM SCLERO W US MLTI on 08-17-2022 VC INJ FOAM SCLERO W US MLTI Patient: MIKY FUENTES Exam Date: 08/17/2022 : 1950 Gender:F Ordering : DR WILLARD GAMBOA M.D. Admission #: [id number] Family : Order #: [id number] CLICK HERE TO VIEW EXAM RADIOLOGY REPORT [...] take (more content not included)... Normal [facility] VC CONSULT FOLLOWUPon 10-10- 2022 VC CONSULT FOLLOWUP Patient: IMKY FUENTES Exam Date: 08/07/2022 : 1950 Gender:F Ordering : DR WILLARD GAMBOA M.D. Admission #: [id number] Family : Order #: [id number] CLICK HERE TO VIEW EXAM RADIOLOGY REPORT [...] MD on 08/07/2022 at 13:31 Normal [facility] VC EXT VENOUS LT LIMITEDon 1 VC EXT VENOUS LT LIMITED Patient: MIKY FUENTES Exam Date: 08/07/2022 : 1950 Gender:F Ordering : DR WILLARD GAMBOA M.D. Admission #: [id number] Family : Order #: [id number] CLICK HERE TO VIEW EXAM RADIOLOGY REPORT [...] Gamboa MD on 08/07/2022 at 12:01 Normal [facility] VC INJ FOAM SCLERO W US MLTI on 08-01-2022 VC INJ FOAM SCLERO W US MLTI Patient: MIKY FUENTES Exam Date: 08/01/2022 : 1950 Gender:F Ordering : DR WILLARD GAMBOA M.D. Admission #: [id number] Family : Order #: [id number] CLICK HERE TO VIEW EXAM RADIOLOGY REPORT [...] compr (more content not included)... Normal [facility] VC CONSULT FOLLOWUPon 2021 VC CONSULT FOLLOWUP Patient: MIKY FUENTES Exam Date: 07/17/2022 : 1950 Gender:F Ordering : DR WILLARD GAMBOA M.D. Admission #: [id number] Family : Order #: [id number] CLICK HERE TO VIEW EXAM RADIOLOGY REPORT [...] the physical exam and consultation Dictated by: Kyle Blanc M.D. on 07/17/2022 at 12:15 Approved by: Kyle Blanc M.D. on 07/17/2022 at 12:18 [facility] VC EXT VENOUS RT LIMITEDon 0 07-17-2022 VC EXT VENOUS RT LIMITED Patient: MIKY FUENTES Exam Date: 07/17/2022 : 1950 Gender:F Ordering : DR WILLARD GAMBOA M.D. Admission #: [id number] Family : Order #: [id number] CLICK HERE TO VIEW EXAM RADIOLOGY REPORT [...] of treated branch saphenous varicosities. Dictated by: Kyle Blanc M.D. on 07/17/2022 at 12:03 Approved by: Kyle Blanc M.D. on 07/17/2022 at 12:14 [facility] VC INJ FOAM SCLERO W US MLTI on 07-12-2022 VC INJ FOAM SCLERO W US MLTI Patient: MIKY FUENTES Exam Date: 07/12/2022 : 1950 Gender:F Ordering : DR WILLARD GAMBOA M.D. Admission #: [id number] Family : Order #: [id number] CLICK HERE TO VIEW EXAM RADIOLOGY REPORT [...] da (more content not included)... Normal [facility] VC CONSULT FOLLOWUPon 2021 VC CONSULT FOLLOWUP Patient: MIKY FUENTES Exam Date: 06/30/2022 : 1950 Gender:F Ordering : DR WILLARD GAMBOA M.D. Admission #: [id number] Family : Order #: [id number] CLICK HERE TO VIEW EXAM RADIOLOGY REPORT [...] Gamboa MD on 06/30/2022 at 13:21 Normal [facility] VC EXT VENOUS LT LIMITEDon 0 06-30-2022 VC EXT VENOUS LT LIMITED Patient: MIKY FUENTES Exam Date: 06/30/2022 : 1950 Gender:F Ordering : DR WILLARD GAMBOA M.D. Admission #: [id number] Family : Order #: [id number] CLICK HERE TO VIEW EXAM RADIOLOGY REPORT [...] Gamboa MD on 06/30/2022 at 13:02 Normal [facility] ALBUMIN, RANDOM URINE W/CREA [facility] 06-26-2022 ALBUMIN, URINE 12.7 mg/dL Normal See Note: [facility] Comment on above: Result Comment: Refe rence Range: Reference Range Not established Performed By: #### 7 600, 496, 87264, 5145 #### [facility] [address], [address] [place] [id number] Chief Strategy Officer: Marek Subramanian MD ALBUMIN/CREATININ E RATIO, RANDOM [...] category. Performed By: #### 7 600, 496, 55387, 0870 #### [facility] [address], [address] [place] [address] Chief Strategy Officer: Marek Subramanian MD Creatinine (U) [Mass/Vol] 205 mg/dL Normal 20-275 [facility] Comment on above: Performed By: #### 7 600, 496, 40452, 6517 #### [facility] of [address], [address] [place] [address] Chief Strategy Officer: Marek Subramanian MD [facility]AB[facility] 06-26-2022 Albumin [Mass/Vol] 3.9 g/dL Normal 3.6-5.1 [facility] Comment on above: Performed By: #### 7 600, 496, 78743, 6517 #### [facility] of [address], [address] [place] [address] Chief Strategy Officer: Marek Subramanian MD Albumin/Globulin [Mass ratio] 1.4 {ratio} Normal 1.0-2.5 [facility] Comment on above: Performed By: #### 7 600, 496, 07374, 6517 #### [facility] of [address], [address] [place] [address] Chief Strategy Officer: Marek Subramanian MD ALP [Catalytic activity/Vol] 106 U/L Normal 37-153 [facility] Comment on above: Performed By: #### 7 600, 496, 39570, 6517 #### [facility] of [address], [address] [place] [address] Chief Strategy Officer: Marek Subramanian MD ALT [Catalytic activity/Vol] 10 U/L Normal 6-29 [facility] Comment on above: Performed By: #### 7 600, 496, 37225, 6517 #### [facility] of [address], [address] [place] [address] Chief Strategy Officer: Marek Subramanian MD AST [Catalytic activity/Vol] 13 U/L Normal 10-35 [facility] Comment on above: Performed By: #### 7 600, 496, 10610, 6517 #### [facility] of [address], [address] [place] [address] Chief Strategy Officer: Marek Subramanian MD Bilirubin [Mass/Vol] 0.8 mg/dL Normal 0.2-1.2 [facility] Comment on above: Performed By: #### 7 600, 496, 16138, 6517 #### [facility] [place] [address] Chief Strategy Officer: Marek Subramanian MD BUN/CREATININE RATIO NOT APPLICABLE Normal 6-22 [facility] Comment on above: Performed By: #### 7 600, 496, 73959, 6517 #### [facility] [place] [address] Chief Strategy Officer: Marek Subramanian MD Calcium [Mass/Vol] 9.9 mg/dL Normal 8.6-10.4 [facility] Comment on above: Performed By: #### 7 600, 496, 01433, 6517 #### [facility] [place] [address] Chief Strategy Officer: Marek Subramanian MD Chloride [Moles/Vol] 109 mmol/L Normal 98-110 [facility] Comment on above: Performed By: #### 7 600, 496, 85830, 6517 #### [facility] [place] [address] Chief Strategy Officer: Marek Subramanian MD CO2 [Moles/Vol] 24 mmol/L Normal 20-32 [facility] Comment on above: Performed By: #### 7 600, 496, 80235, 6517 #### [facility] of [place] [address] Chief Strategy Officer: Marek Subramanian MD Creatinine [Mass/Vol] 0.88 mg/dL Normal 0.60-1.00 [facility] Comment on above: Performed By: #### 7 600, 496, 64373, 6517 #### [facility] of [address] [place] [address] Chief Strategy Officer: Marek Subramanian MD GFR/1.73 sq M.predicted among non-blacks MDRD (S/P/Bld) [Vol rate/Area] 70 mL/min/{1.73_m2} Normal > OR = 60 [facility] Comment on above: Result Comment: The eGFR is based on the CKD-EPI 2020 equation. To calculate the new eGFR from a previous Creatinine or Cystatin C result, go to https://www.kidney.org/professionals/ kdoqi/gfr%5Fcalculator Performed By: #### 7 600, 496, 75598, 6517 #### [facility] [place] [address] Chief Strategy Officer: Marek Subramanian MD Globulin (S) [Mass/Vol] 2.7 g/dL Normal 1.9-3.7 [facility] Comment on above: Performed By: #### 7 600, 496, 55864, 6517 #### [facility] [place] [address] Chief Strategy Officer: Marek Subramanian MD Glucose [Mass/Vol] 91 mg/dL Normal 65-99 [facility] Comment on above: Result Comment: Fasting reference interval Performed By: #### 7 600, 496, 31584, 6517 #### [facility] [place] [address] Chief Strategy Officer: Marek Subramanian MD Potassium [Moles/Vol] 4.0 mmol/L Normal 3.5-5.3 [facility] Comment on above: Performed By: #### 7 600, 496, 88953, 6517 #### [facility] [place] [address] Chief Strategy Officer: Marek Subramanian MD Protein [Mass/Vol] 6.6 g/dL Normal 6.1-8.1 [facility] Comment on above: Performed By: #### 7 600, 496, 40688, 6517 #### [facility] [place] [address] Chief Strategy Officer: Marek Subramanian MD Sodium [Moles/Vol] 143 mmol/L Normal 135-146 [facility] Comment on above: Performed By: #### 7 600, 496, 92535, 6517 #### [facility] [address], [address] [place] [address] Chief Strategy Officer: Marek Subramanian MD Urea nitrogen [Mass/Vol] 15 mg/dL Normal 7-25 [facility] Comment on above: Performed By: #### 7 600, 496, 21336, 6517 #### [facility] [address], [address] [place] [address] Chief Strategy Officer: Marek Subramanian MD HEMOGLOBIN A1con 06-26-2022 HEMOGLOBIN [...] diagnosis of diabetes in children. According to [place] [employer] Diabetes Association (ADA) guidelines, hemoglobin A1c <7.0% represents optimal control in non- diabetic patients. Different metrics may apply to specific patient populations. Standards of Medical Care in Diabetes(ADA). Performed By: #### 7 600, 496, 07057, 6517 #### [facility] [address], [address] [place] [address] Chief Strategy Officer: Marek Subramanian MD LIPID PANEL, STANDARDon 05-30 Cholesterol [Mass/Vol] 171 mg/dL Normal <200 [facility] Comment on above: Order Comment: FASTI NG:YES FASTING: YES Performed By: #### 7 600, 496, 84284, 6517 #### [facility] [address], [address] [place] [address] Chief Strategy Officer: Marek Subramanian MD Cholesterol in HDL [Mass/Vol] 60 mg/dL Normal > OR = 50 [facility] Comment on above: Order Comment: FASTI NG:YES FASTING: YES Performed By: #### 7 600, 496, 70102, 6517 #### [facility] [place] [address] Chief Strategy Officer: Marek Subramanian MD Cholesterol in LDL [Mass/Vol] [...] of LDL-C. Nikita RUSSELL et al. LEWIS. 2013;310(08): 3649-5574 (http://education.SensorDynamics.Grow Mobile/faq/BWM516) Performed By: #### 7 600, 496, 89398, 7017 #### [facility] [place] [address] Chief Strategy Officer: Marek Subramanian MD Cholesterol.total /Cholesterol in HDL [Mass ratio] 2.9 {ratio} Normal <5.0 [facility] Comment on above: Order Comment: FASTI NG:YES FASTING: YES Performed By: #### 7 600, 496, 59020, 1117 #### [facility] [place] [address] Chief Strategy Officer: Marek Subramanian MD NON HDL CHOLESTEROL 111 mg/dL (calc) Normal <130 [facility] Comment on above: Order Comment: FASTI NG:YES FASTING: YES Result Comment: For patients with diabetes plus 1 major ASCVD risk factor, treating to a non-HDL-C goal of <100 mg/dL (LDL-C of <70 mg/dL) is considered a therapeutic option. Performed By: #### 7 600, 496, 13477, 6517 #### [facility] [place] [address] Chief Strategy Officer: Marek Subramanian MD Triglyceride [Mass/Vol] 95 mg/dL Normal <150 [facility] Comment on above: Order Comment: FASTI NG:YES FASTING: YES Performed By: #### 7 600, 496, 06043, 6517 #### [facility] [address], [address] [place] [address] Chief Strategy Officer: Marek Subramanian MD VC INJ FOAM SCLERO W US MLTI on 06-26-2022 VC INJ FOAM SCLERO W US MLTI Patient: MIKY FUENTES Exam Date: 06/26/2022 : 1950 Gender:F Ordering : DR WILLARD GAMBOA M.D. Admission #: [id number] Family : Order #: [id number] CLICK HERE TO VIEW EXAM RADIOLOGY REPORT [...] vein medial distal lower leg/ankle. A large ic engineer vein was occluded with manual pressure until [...] varices, (more content not included)... Normal [facility] VC CONSULT FOLLOWUPon 2021 VC CONSULT FOLLOWUP Patient: MIKY FUENTES Exam Date: 06/19/2022 : 1950 Gender:F Ordering : DR WILLARD GAMBOA M.D. Admission #: [id number] Family : Order #: [id number] CLICK HERE TO VIEW EXAM RADIOLOGY REPORT [...] the physical exam and consultation Dictated by: Kyle Blanc M.D. on 06/19/2022 at 12:11 Approved by: Kyle Blanc M.D. on 06/19/2022 at 12:14 Normal [facility] VC EXT VENOUS RT LIMITEDon 0 06-19-2022 VC EXT VENOUS RT LIMITED Patient: MIKY FUENTES Exam Date: 06/19/2022 : 1950 Gender:F Ordering : DR WILLARD GAMBOA M.D. Admission #: [id number] Family : Order #: [id number] CLICK HERE TO VIEW EXAM RADIOLOGY REPORT [...] varicosities within the right leg. Dictated by: Kyle Blanc M.D. on 06/19/2022 at 12:10 Approved by: Kyle Blanc M.D. on 06/19/2022 at 12:11 Normal [facility] VC INJ FOAM SCLERO W US MLTI on 06-13-2022 VC INJ FOAM SCLERO W US MLTI Patient: MIKY FUENTES Exam Date: 06/13/2022 : 1950 Gender:F Ordering : DR WILLARD GAMBOA M.D. Admission #: [id number] Family : Order #: [id number] CLICK HERE TO VIEW EXAM CORRECTION made [...] with Varithena(r) 2. Intraoperative ultrasound guidance Physician: Kyle Blanc M.D. Anesthesia: None. Indications for Procedure: [...] days. PERSONNEL: Braxton Herrera R.N. Dictated by: Kyle Blanc M.D. on 06/13/2022 at 14:43 Approved by: Kyle Blanc M.D. on 06/13/2022 at 14:49 Dictated by: Kyle Blanc M.D. on 06/19/2022 at 12:17 Approved by: Kyle Blanc M.D. on 06/19/2022 at 12:17 Normal [facility] VC CONSULT FOLLOWUPon 2021 VC CONSULT FOLLOWUP Patient: MIKY FUENTES Exam Date: 05/31/2022 : 1950 Gender:F Ordering : DR WILLARD GAMBOA M.D. Admission #: [id number] Family : Order #: [id number] CLICK HERE TO VIEW EXAM RADIOLOGY REPORT [...] the physical exam and consultation Dictated by: Kyle Blanc M.D. on 05/31/2022 at 12:13 Approved by: Kyle Blanc M.D. on 05/31/2022 at 12:18 Normal [facility] VC EXT VENOUS LT LIMITEDon 0 05-31-2022 VC EXT VENOUS LT LIMITED Patient: MIKY FUENTES Exam Date: 05/31/2022 : 1950 Gender:F Ordering : DR WILLARD GAMBOA M.D. Admission #: [id number] Family : Order #: [id number] CLICK HERE TO VIEW EXAM RADIOLOGY REPORT [...] saphenous vein secondary to recanalization. Dictated by: Kyle Blanc M.D. on 05/31/2022 at 11:38 Approved by: Kyle Blanc M.D. on 05/31/2022 at 12:13 Normal [facility] CT ABD/PELVIS WO CONon 05-26 CT [...] by: SANTHOSH NICK Date: 2022-05-26 16:43 Normal [facility] VC ENDOVENOUS ABL 1ST V LTon 05-23-2022 VC ENDOVENOUS ABL 1ST V LT Patient: MIKY FUENTES Exam Date: 05/23/2022 : 1950 Gender:F Ordering : DR WILLARD GAMBOA M.D. Admission #: [id number] Family : Order #: [id number] CLICK HERE TO VIEW EXAM RADIOLOGY REPORT [...] the left small saphenous vein. Dictated by: Kyle Blanc M.D. on 05/23/2022 at 12:31 Approved by: Kyle Blanc M.D. on 05/23/2022 at 12:34 Normal [facility] US KIDNEYSon 05-05-2022 US KIDNEYS EXAMINATION: [...] by: WILLARD GAMBOA Date: 2022-05-05 13:29 Normal [facility] XR KUB 1 VIEWon 05-05-2022 XR [...] appreciable urinary tract calculi. Electronically authenticated by: KYLE BLANC Date: 2022-05-05 15:54 Normal [facility] MG MAMM SCREEN 3D TANMAY CADon 05-04-2022 MG MAMM SCREEN 3D TANMAY CAD Patient: MIKY FUENTES Exam Date: 05/04/2022 : 1950 Gender:F Ordering : DR CONNOR JEAN BAPTISTE Admission #: [id number] Family : Order #: [id number] CLICK HERE TO VIEW EXAM RADIOLOGY REPORT [...] colon cancer at age 60. LOCATION: [facility] BREAST COMPOSITION: Scattered areas fibroglandular density. FINDINGS: [...] PALPABLE LUMP SHOULD BE BIOPSIED. Dictated by: Kyle Blanc M.D. on 05/05/2022 at 14:04 Approved by: Kyle Blanc M.D. on 05/05/2022 at 14:21 Normal [facility] VC CONSULT FOLLOWUPon 2021 VC CONSULT FOLLOWUP Patient: MIKY FUENTES Exam Date: 05/04/2022 : 1950 Gender:F Ordering : DR WILLARD GAMBOA M.D. Admission #: [id number] Family : Order #: [id number] CLICK HERE TO VIEW EXAM RADIOLOGY REPORT [...] the physical exam and consultation Dictated by: Kyle Blanc M.D. on 05/04/2022 at 11:32 Approved by: Kyle Blanc M.D. on 05/04/2022 at 11:43 [facility] VC EXT VENOUS RT LIMITEDon 0 05-04-2022 VC EXT VENOUS RT LIMITED Patient: MIKY FUENTES Exam Date: 05/04/2022 : 1950 Gender:F Ordering : DR WILLARD GAMBOA M.D. Admission #: [id number] Family : Order #: [id number] CLICK HERE TO VIEW EXAM RADIOLOGY REPORT [...] abnormal dilation and significant reflux. Dictated by: Kyle Blanc M.D. on 05/04/2022 at 11:08 Approved by: Kyle Blanc M.D. on 05/04/2022 at 11:17 Normal [facility] CULTURE URINEon 05-03-2022 CULTURE URINE Culture Observations : LIGHT GROWTH OF MIXED GENITAL LUDWIN. NO POTENTIAL PATHOGENS SEEN. Normal [facility] Comment on above: Performed By: #### U RCX ####[facility] [address] [place] [address]Dr. Alysha Machuca UA RANDOMon 05-03-2022 Bilirubin Ql (U) Negative Normal NEGATIVE [facility] Comment on above: Performed By: #### U A #### [facility] [address] [place] [address] [address] Alysha Machuca Clarity (U) TURBID Abnormal CLEAR [facility] Comment on above: Performed By: #### U A #### [facility] [address] [place] [address] [address] Alysha Machuca Color (U) RED Abnormal YELLOW [facility] Comment on above: Result Comment: Prev iously reported as: YELLOW On 05/03/2022 17:30 By CV2 Performed By: #### U A #### [facility] [address] [place] [address] Dr. Alysha Machuca Glucose Ql (U) Negative Normal NEGATIVE [facility] Comment on above: Performed By: #### U A #### [facility] [address] [place] [address] Dr. Alysha Machuca Hemoglobin Ql (U) LARGE Abnormal NEGATIVE [facility] Comment on above: Performed By: #### U A #### [facility] [address] [place] [address] Dr. Alysha Machuca Ketones Ql (U) Negative Normal NEGATIVE [facility] Comment on above: Performed By: #### U A #### [facility] [address] [place] [address] Dr. Alysha Machuca LEUKOCYTES Negative Normal NEGATIVE [facility] Comment on above: Performed By: #### U A #### [facility] [address] [place] [address] Dr. Alysha Machuca Nitrite Ql (U) Negative Normal NEGATIVE [facility] Comment on above: Performed By: #### U A #### [facility] [address] [place] [address] Dr. Alysha Machuca pH (U) 6.0 [pH] Normal 5-9 [facility] Comment on above: Performed By: #### U A #### [facility] [address] [place] [address] Dr. Alysha Machuca SPEC GRAVITY 1.025 Normal 1.005-<=1.025 [facility] Comment on above: Performed By: #### U A #### [facility] [address] [place] [address] Dr. Alysha Machuca UA PROTEIN 100 mg/dl Abnormal NEGATIVE/ TRACE [facility] Comment on above: Performed By: #### U A #### [facility] [address] [place] [address] Dr. Alysha Machuca Urobilinogen Qn (U) 0.2 {Luis'U}/dL Normal 0.2 - 1.0 [facility] Comment on above: Performed By: #### U A #### [facility] [address] [place] [address] [address] Alysha Macuhca VC ENDOVENOUS ABL 1ST V RTon 04-26-2022 VC ENDOVENOUS ABL 1ST V RT Patient: MIKY FUENTES Exam Date: 04/26/2022 : 1950 Gender:F Ordering : DR WILLARD GAMBOA M.D. Admission #: [id number] Family : Order #: [id number] CLICK HERE TO VIEW EXAM RADIOLOGY REPORT [...] Gamboa MD on 04/26/2022 at 10:58 Normal [facility] VC CONSULT FOLLOWUPon 2021 VC CONSULT FOLLOWUP Patient: MIKY FUENTES Exam Date: 04/13/2022 : 1950 Gender:F Ordering : DR WILLARD GAMBOA M.D. Admission #: [id number] Family : Order #: [id number] CLICK HERE TO VIEW EXAM RADIOLOGY REPORT [...] the physical exam and consultation Dictated by: Kyle Blanc M.D. on 04/13/2022 at 10:56 Approved by: Kyle Blanc M.D. on 04/13/2022 at 10:59 Normal [facility] VC EXT VENOUS LT LIMITEDon 0 04-13-2022 VC EXT VENOUS LT LIMITED Patient: MIKY FUENTES Exam Date: 04/13/2022 : 1950 Gender:F Ordering : DR WILLARD GAMBOA M.D. Admission #: [id number] Family : Order #: [id number] CLICK HERE TO VIEW EXAM RADIOLOGY REPORT [...] anterior accessory saphenous vein branches. Dictated by: Kyle Blanc M.D. on 04/13/2022 at 10:55 Approved by: Kyle Blanc M.D. on 04/13/2022 at 10:56 Normal [facility] Office Visit (Cardiology)on 03-22-2022 Follow-up visit [...] signing my name below, I, Lucia Roy LPNScribe, attest that this documentation has been prepared under the direction and in the presence of Dr. Nick Perez MD. All medical record entries made by [...] up in 9 months Chief Complaint MIKY FUENTES is being seen for a 6 month follow-up of. History of Present Illness Patient returns in follow-up of problems as noted. In the interim she is done well. She has none of the symptoms of cardiomyopathy that preceded her original diagnosis of heart failure. With guideline directed therapy in the pentecostalism of maintenance of sinus rhythm her symptoms [...] Oral TabletTake 1 tablet twice a day Jay 3 [place] DIRECTED. Tylenol Arthritis Ext Relief [...] negative for complaint. Vitals Vital Signs Recorded: [id number] 02:06PM Heart Rate47, Apical Ghclipjh153, RUE, Sitting Xtzjtcabt08, RUE, Sitting Height5 ft 5 in Jpqiat666 lb 6.4 oz BMI Gpegxvkkfb54.17 kg/m2 BSA Calculated2.19 Tobacco Useb) No PHQ-2 [...] no murmurs (more content not included)... Normal Avtal24 Tobacco Screening.on 022 Adult depression screening assessment No [facility] [facility] 250 DO Work Phone: Fall risk assessment a) No falls within the last year [facility] [facility] 250 DO Work Phone: Tobacco use status CPH[facility] b) No [facility] [facility] 250 DO Work Phone: VC ENDOVENOUS ABL PERFORATIN G LTon 03-22-2022 VC ENDOVENOUS ABL PERFORATING LT Patient: MIKY FUENTES Exam Date: 03/22/2022 : 1950 Gender:F Ordering : DR WILLARD GAMBOA M.D. Admission #: [id number] Family : Order #: [id number] CLICK HERE TO VIEW EXAM RADIOLOGY REPORT PROCEDURE: VEIN CENTER ENDOVENOUS ABLATION VEIN LEFT LEG COMPARISON: None. INDICATIONS: Pain co-occurrent and due to varicose veins of bilateral legs I83.813 OPERATIVE REPORT: Diagnosis: Superficial venous reflux, incompetent perforating veins Procedure: Endovenous laser ablation of the left ic engineer(s) Procedure: The patient was positioned supine on [...] MD (more content not included)... Normal [facility] KAL SCREEN, IFA, W/REFL TITE R/PATTERN (REFL)on [...] indicated. For additional information, please refer to http://education.SensorDynamics.Grow Mobile/faq/HMX427 (This link is being provided for informational/ educational purposes only.) Performed By: #### 8 09, 8224, 4420, 23036, %[id number] #### [facility] [address], [address] [place] [id number] Chief Strategy Officer: Marek Subramanian MD ANTINUCLEAR ANTIBODIES TITER AND PATTERNon 10-01-2021 KAL PATTERN Nuclear, Centromere Abnormal [facility] Comment on above: Result Comment: Cent romere pattern is associated with limited cutaneous systemic sclerosis, CREST (Calcinosis, Raynaud's, Esophageal dysmotility, Sclerodactyly, Telangiectasia), primary biliary cholangitis (PBC), and other autoimmune diseases. AC-3: Centromere International Consensus on KAL Patterns (https://doi.org/10.1515/qyvy-6024-9379) Performed By: #### 8 09, 8268, 4420, 76121, %[id number] #### [facility] [place] [address] Chief Strategy Officer: Marek Subramanian MD KAL PATTERN Nuclear, Homogeneous Abnormal [facility] Comment on above: Result Comment: Homo geneous pattern is associated with systemic lupus erythematosus (SLE), drug-induced lupus and juvenile idiopathic arthritis. AC-1: Homogeneous International Consensus on KAL Patterns (https://doi.org/10.1515/ymsf-2491-9517) Performed By: #### 8 09, 8268, 4420, 78674, %29159 #### [facility] [place] [address] Chief Strategy Officer: Marek Subramanian MD KAL TITER > OR = 1:1280 Abnormal [facility] Comment on above: Result Comment: Refe rence Range <1:40 Negative 1:40-1:80 Low Antibody Level >1:80 Elevated Antibody Level Performed By: #### 8 09, 8268, 4420, 36489, %22394 #### [facility] [place] [address] Chief Strategy Officer: Marek Subramanian MD KAL TITER 1:80 High [facility] Comment on above: Result Comment: A lo w level KAL titer may be present in pre- clinical autoimmune diseases and normal individuals. Reference Range <1:40 Negative 1:40-1:80 Low Antibody Level >1:80 Elevated Antibody Level Performed By: #### 8 09, 8268, 4420, 95179, %36041 #### [facility] [address], [address] [place] [address] Chief Strategy Officer: Marek Subramanian MD C-REACTIVE PROTEINon 021 CRP [Mass/Vol] 13.4 mg/L High <8.0 [facility] Comment on above: Performed By: #### 8 09, 8268, 4420, 67259, %35041 #### [facility] [place] [address] [place] [address] Chief Strategy Officer: Marek Subramanian MD RHEUMATOID ARTHRITIS DIAGNOS TIC PANEL 1on 10-01-2021 CYCLIC CITRULLINATED PEPTIDE (CCP) AB (IGG) <16 Normal [facility] Comment on above: Result Comment: Refe rence Range Negative: <20 Weak Positive: 20-39 Moderate Positive: 40-59 Strong Positive: >59 Performed By: #### 8 09, 8268, 4420, 63234, %36244 #### [facility] [place] [address] Chief Strategy Officer: Marek Subramanian MD INTERPRETATION Normal [facility] Comment on above: Result Comment: These serologic results may be found in 10-20% of patients with polyarthritis that is clinically and radiologically indistinguishable from RA. Performed By: #### 8 09, 8268, 4420, 98732, %69921 #### [facility] [place] [address] Chief Strategy Officer: Marek Subramanian MD RHEUMATOID FACTOR <14 Normal <14 [facility] Comment on above: Performed By: #### 8 09, 8268, 4420, 78566, %02640 #### [facility] [place] [address] Chief Strategy Officer: Marek Subramanian MD SED RATE BY MODIFIED SILAS Singh 10-01-2021 SED RATE BY MODIFIED WESTERGREN 51 mm/h High < OR = 30 [facility] Comment on above: Performed By: #### 8 09, 8268, 4420, 36578, %59826 #### [facility] [place] [address] Chief Strategy Officer: Marek Subramanian MD Tobacco Screening.on 021 Fall risk assessment a) No falls within the last year [facility] 600 DO Work Phone: Tobacco use status CP b) No -[facility] Only-apartments[facility] 600 DO Work Phone: Vital Signs Date Time Vital Sign Value Performing Clinician Facility 03-06-2024 09:31-0400 Body height 165.1 cm Nick Perez MD Work Phone: [facility] 03-06-2024 09:31-0400 Body mass index (BMI) [Ratio] 36.78 kg/m2 Nick Perez MD Work Phone: [facility] 03-06-2024 09:31-0400 Body weight 100.25 kg Nick Perez MD Work Phone: [facility] 03-06-2024 09:31-0400 Diastolic blood pressure 58 mm[Hg] Nick Perez MD Work Phone: [facility] 03-06-2024 09:31-0400 Heart rate 44 /min Nick Perez MD Work Phone: [facility] 03-06-2024 09:31-0400 Systolic blood pressure 104 mm[Hg] Nick Perez MD Work Phone: [facility] 12-06-2022 13:27-0500 Body height 165.1 cm Connor G Furlong Work Phone: [facility] Only-apartments-[place] 250 DO Work Phone: 12-06-2022 13:27-0500 Body mass index (BMI) [Ratio] 36.94 kg/m2 Connor G Furlong Work Phone: [facility] Only-apartments-[place] 250 DO Work Phone: 12-06-2022 13:27-0500 Body surface area Derived from formula 2.07 m2 Connor G Furlong Work Phone: [facility] 250 DO Work Phone: 12-06-2022 13:27-0500 Body weight 100.7 kg Connor G Furlong Work Phone: [facility] 250 DO Work Phone: 12-06-2022 13:27-0500 Diastolic blood pressure 84 mm[Hg] Connor Marinelli Furlong Work Phone: [facility] 250 DO Work Phone: 12-06-2022 13:27-0500 Heart rate 43 /min Connor Marinelli Furlong Work Phone: [facility] 250 DO Work Phone: 12-06-2022 13:27-0500 Systolic blood pressure 130 mm[Hg] Connor Marinelli Furlong Work Phone: [facility] 250 DO Work Phone: 06-30-2022 11:43-0400 Blood Pressure Location Yehudagerry [facility] 06-30-2022 11:43-0400 Diastolic blood pressure 69 mm[Hg] Yehuda [facility] 06-30-2022 11:43-0400 Heart rate 60 /min Yehuda [facility] 06-30-2022 11:43-0400 Respiratory rate 16 /min Yehuda [facility] 06-30-2022 11:43-0400 Systolic blood pressure 129 mm[Hg] Yehuda [facility] 03-22-2022 14:06-0400 Body height 165.1 cm Connor Marinelli Furlong Work Phone: [facility] 250 DO Work Phone: 03-22-2022 14:06-0400 Body mass index (BMI) [Ratio] 42.17 kg/m2 Connor Marinelli Furlong Work Phone: [facility] 250 DO Work Phone: 03-22-2022 14:06-0400 Body surface area Derived from formula 2.19 m2 Connor G Furlong Work Phone: [facility] Only-apartments-[place] 250 DO Work Phone: 03-22-2022 14:06-0400 Body weight 114.94 kg Connor G Furlong Work Phone: [facility] Only-apartments-[place] 250 DO Work Phone: 03-22-2022 14:06-0400 Diastolic blood pressure 70 mm[Hg] Connor G Furlong Work Phone: [facility] Only-apartments-[place] 250 DO Work Phone: 03-22-2022 14:06-0400 Heart rate 47 /min Connor G Furlong Work Phone: [facility] Only-apartments[facility] 250 DO Work Phone: 03-22-2022 14:06-0400 Systolic blood pressure 114 mm[Hg] Connor G Furlong Work Phone: [facility] Only-apartments[facility] 250 DO Work Phone: 08-16-2021 14:38-0400 Body height 165.1 cm Connor G Furlong Work Phone: [facility] [employer] 600 DO Work Phone: 08-16-2021 14:38-0400 Body mass index (BMI) [Ratio] 42.53 kg/m2 Connor G Furlong Work Phone: [facility] [employer] 600 DO Work Phone: 08-16-2021 14:38-0400 Body surface area Derived from formula 2.2 m2 Connor G Furlong Work Phone: [facility] [employer] 600 DO Work Phone: 08-16-2021 14:38-0400 Body weight 115.94 kg Connor Marinelli Furlong Work Phone: [facility] 600 DO Work Phone: 08-16-2021 14:38-0400 Diastolic blood pressure 74 mm[Hg] Connor Marinelli Furlong Work Phone: [facility] 600 DO Work Phone: 08-16-2021 14:38-0400 Heart rate 44 /min Connor Marinelli Furlong Work Phone: [facility] 600 DO Work Phone: 08-16-2021 14:38-0400 Systolic blood pressure 134 mm[Hg] Connor Lewislong Work Phone: [facility] [facility] 600 DO Work Phone: Encounters Encounter Date Encounter Type Care Provider Facility Start: 07-01-2024 End: 07-01-2024 ambulatory Radha X Orzech [facility] Start: 07-01-2024 End: 07-01-2024 Patient encounter procedure [facility] X Orzech [facility] Start: 06-10-2024 End: 06-10-2024 ambulatory Radha X Orzech Facility:[facility] Start: 06-10-2024 End: 06-10-2024 Patient encounter procedure Radha X Orzech [facility] Start: 05-20-2024 End: 05-20-2024 ambulatory Radha X Orzech Facility:[facility] [place] Start: 05-20-2024 End: 05-20-2024 Patient encounter procedure Radha X Orzech [facility] Start: 05-16-2024 End: 05-16-2024 ambulatory Yehuda AVITIA Facility:[facility] [place] Start: 05-16-2024 End: 05-16-2024 Patient encounter procedure Yehuda AVITIA [facility] Start: 03-26-2024 End: 03-26-2024 ambulatory JR. LESVIA Myrtle COWAN Not Available Start: 03-06-2024 End: 03-06-2024 ambulatory [facility] Start: 03-06-2024 End: 03-06-2024 Office outpatient visit 25 minutes Nick Perez MD Work Phone: [facility] Comment on above: Mixed hyperlipidemia (Primary Dx); Paroxysmal atrial fibrillation (Multi); Non-ischemic cardiomyopathy (Multi); Never smoked tobacco; BMI 36.0-36.9,adult; Hyperlipidemia, unspecified hyperlipidemia type Start: 02-18-2024 End: 02-19-2024 ambulatory [facility] Start: 02-18-2024 End: 02-18-2024 ambulatory [facility] Start: 12-24-2023 End: 12-24-2023 ambulatory [facility] Start: 12-13-2023 End: 12-13-2023 ambulatory Yehuda AVITIA Facility:[facility] [place] Start: 12-13-2023 End: 12-13-2023 Patient encounter procedure Yehuda AVITIA [facility] Start: 10-26-2023 End: 10-26-2023 ambulatory Yehuda AVITIA Facility:[facility] [place] Start: 10-09-2023 End: 10-09-2023 ambulatory DORA ALCAZAR Facility:[facility] Start: 03-13-[address] WILLARD Looney y:H1 Start: 03-05-2023 End: 03-06-[address] YEHUDA AVITIA . Facility:H1 Start: 02-20-2023 End: 02-21-2023 ambulatory [facility] Facility:[facility] Start: 12-06-2022 ambulatory Nick Glenn lindsey Mannoscardanay GOSS Facility: Start: 12-06-2022 Office outpatient vi sit 25 minutes Connor Jean Baptiste Work Phone: [facility] 250 DO Work Phone: Start: 11-20-2022 Rx Renewal Connor nj Work Phone: [facility] 250 DO Work Phone: Start: 11-03-2022 End: 11-04-[address] YEHUDA AVITIA . Facility:H1 Start: 10-27-2022 End: 10-28-[address] WILLARD GAMBOA Facility:H1 Start: 10-16-2022 End: 10-17-[address] WILLARD GAMBOA Facility:H1 Start: 10-10-2022 End: 10-11-[address] YEHUDA AVITIA . Facility:H1 Start: 10-06-2022 End: 10-07-[address] WILLARD GAMBOA Facility:H1 Start: 09-26-2022 End: 09-27-[address] WILLARD GAMBOA Facility:H1 Start: 09-20-2022 End: 09-21-[address] WILLARD GAMBOA Facility:H1 Start: 09-07-2022 End: 09-08-[address] CONNOR JEAN BAPTISTE Facility:H1 Start: 09-07-2022 Encounter for preprocedural laboratory examination DR LESVIA COWAN [facility] Start: 09-05-2022 End: 09-05-2022 Patient encounter procedure Yehuda AVITIA [facility] Start: 09-01-2022 End: 09-02-[address] CONNOR JEAN BAPTISTE Facility:H1 Start: 09-01-2022 End: 09-02-2022 Encounter for preprocedural laboratory examination DR CONNOR JEAN BAPTISTE Facility:H1 Start: 08-31-2022 End: 09-01-[address] CONNOR JEAN BAPTISTE Facility:H1 Start: 08-22-2022 Rx Renewal Connor nj Work Phone: [facility] 250 DO Work Phone: Start: 08-22-2022 End: 08-23-[address] CONNOR JEAN BAPTISTE Facility:H1 Start: 08-17-2022 End: 08-18-[address] CONNOR JEAN BAPTISTE Facility:H1 Start: 08-11-2022 End: 08-11-2022 Lab Drop off DORA ALCAZAR [facility] Start: 08-11-2022 End: 08-11-2022 Patient encounter procedure DORA ALCAZAR [facility] Start: 08-07-2022 End: 08-08-[address] WILLARD GAMBOA Facility:H1 Start: 08-01-2022 End: 08-02-[address] WILLARD GAMBOA Facility:H1 Start: 07-17-2022 End: 07-18-[address] WILLARD GAMBOA Facility:H1 Start: 07-12-2022 End: 07-13-[address] WILLARD GAMBOA Facility:H1 Start: 06-30-2022 End: 07-01-[address] WILLARD GAMBOA Facility:H1 Start: 06-30-2022 End: 06-30-2022 Patient encounter procedure Yehuda AVITIA [facility] Start: 06-26-2022 End: 06-27-[address] [...] sit 25 minutes [facility]ng [facility] Work Phone: Start: 03-22-2022 End: 03-23-[address] WILLARD GAMBOA Facility:H1 Start: 01-31-2022 ambulatory Connor Jean Baptiste Facility: Start: 12-07-2021 Rx Renewal Connor Lewislo ng Work Phone: [facility] [place] 250 DO Work Phone: Start: 08-16-2021 Office outpatient vi sit 15 minutes Connor Lewislong [facility] Work Phone: Imaging result normal Connor Marinelli F urlong Work Phone: [facility] [place] 250 DO Work Phone: Patient encounter status Connoreugenio Lewislong [facility] Work Phone: Procedures Date Procedure Procedure Detail Performing Clinician Start: 03-06-2024 ECG 12-LEAD NICK VILLEDA Start: 03-06-2024 FOLLOW UP IN CARDIOLOGY NICK PEREZ Start: 03-06-2024 Ecg routine ecg w/le ast 12 lds w/i&r Nick Perez MD Work Phone: Start: 02-18-2024 Follow-up visit Follow-up CONNOR JEAN BAPTISTE Start: 12-24-2023 ECG 12-LEAD NICK VILLEDA Start: 07-26-2023 Mammography Nick Villeda MD Work Phone: Start: 09-05-2022 Cystoscopy Yehuda ANDRADE TERS Start: 11-30-2020 Cystoscopy Yehuda ANDRADE TERS Start: 07-14-2020 Cystoscopy Yehuda ANDRADE TERS Start: 07-08-2020 Cystoscopy Yehuda ANDRADE TERS Start: 07-17-2019 Extracorporeal shock wave lithotripsy of the bile duct Yehuda AVITIA Comment on above: Right Start: 10-29-2015 Gastric sleeve Yehudagerry AVITIA Arthroplasty of knee Connor Jean Baptiste Work Phone: Colonoscopy Connor marinelli Work Phone: Esophagogastrostomy, antesternal or antethoracic Connor Jean Baptiste Work Phone: H/O: hysterectomy Yehuda CORONA Comment on above: Complete Hernia repair Connor Tavares ng Work Phone: Hysterectomy Connor Gomez g Work Phone: Lithotripsy Connor Gomez g Work Phone: Renal artery stent (physical object) Yehuda AVITIA Repair of ventral hernia Malgorzata AVITIA Plan of Treatment Date Care Activity Detail Author Start: 04-25-2033 DTaP/Tdap/Td Vaccine s (3 - Td or Tdap) DTaP/Tdap/Td Vaccines (3 - Td or Tdap) [facility] Start: 08-28-2024 End: 08-28-2024 Patient encounter procedure 08/28/2024 10:40 AM EDT Office Visit [place] [address] [place] [id number] Carmen Chi MD [address] [facility] [address] [place] [address] [facility] Start: 07-26-2024 Screening for malign ant neoplasm of breast Mammogram [facility] Start: 03-01-2024 COVID-19 Vaccine ( season) COVID-19 Vaccine ( season) [facility] Start: 01-29-2024 FUV, Provider: Nick Perez, Status: Pen, Time: 11:20 AM FUV, Provider: Nick Perez, Status: Pen, Time: 11:20 AM [facility] 250 DO Work Phone: Start: 12-06-2022 FUV, Provider: Nick Perez, Status: Pen, Time: 1:10 PM FUV, Provider: Nick Perez, Status: Pen, Time: 1:10 PM [facility] 250 DO Work Phone: Start: 01-31-2022 FUV, Provider: Nick Sarkar, Status: Pen, Time: 2:20 PM FUV, Provider: Nick Sarkar, Status: Pen, Time: 2:20 PM [facility] 250 DO Work Phone: Start: 2010 RSV patient s and/or patients aged 60+ years (1 - 1-dose 60+ series) RSV patients and/or patients aged 60+ years (1 - 1-dose 60+ series) [facility] Start: 1968 Diabetes mellitus screening Diabetes Screening [facility] Start: 1968 Hepatitis C screening Hepatitis C Sc katherine [facility] Start: 1950 Lipid panel Lipid Panel [facility] Start: 1950 Medicare Annual Well ness Visit Medicare Annual Wellness Visit (AWV) [facility] Start: 1950 Screening for malign ant neoplasm of colon [facility] Start: 1950 Screening for osteoporosis Bone Density Scan [facility] Start: 1950 Thyroid stimulating hormone measurement TSH Level [facility] Immunizations Immunization Date Immunization Notes Care Provider Karlee rubio 02-20-2023 tetanus toxoid, redu mariano diphtheria toxoid, and acellular pertussis vaccine, adsorbed Yehuda AVITIA [facility] 10-15-2022 Fluzone High-Dose Quadrivalent 0.7 ML Intramuscular Suspension Prefilled Syringe Connor G [employer] Work Phone: [facility] [place] 250 DO Work Phone: 10-15-2022 influenza virus vacc ine, unspecified formulation Yehuda AVITIA [facility] 10-15-2022 influenza, high dose seasonal, preservative-free Nick Perez MD Work Phone: [facility] Work Phone: 04-29-2022 Comirnaty 30 MCG/0.3 ML Intramuscular Suspension Connor G [employer] Work Phone: [facility] [place] 250 DO Work Phone: 04-29-2022 SARS-CoV-2 mRNA (pjlgsvrfrue-revw-oyciyk e) vaccine Yehuda AVITIA [facility] 09-08-2021 influenza virus vacc ine, unspecified formulation Yehuda AVITIA [facility] 08-29-2021 Fluzone High-Dose Quadrivalent 0.7 ML Intramuscular Suspension Prefilled Syringe Connor Jean Baptiste Work Phone: [facility] 250 DO Work Phone: 08-29-2021 influenza virus vacc ine, unspecified formulation Yehuda AVITIA [facility] 08-29-2021 influenza, high dose seasonal, preservative-free Nick Perez MD Work Phone: [facility] Work Phone: 08-29-2021 Pfizer-BioNTech COVI D-19 Vacc 30 MCG/0.3ML Intramuscular Suspension Connor Jean Baptiste Work Phone: [facility] 12-23-2020 Pfizer-BioNTech COVI D-19 Vacc 30 MCG/0.3ML Intramuscular Suspension Connor Jean Baptiste Work Phone: [facility] 12-01-2020 Pfizer-BioNTech COVI D-19 Vacc 30 MCG/0.3ML Intramuscular Suspension Connor Jean Baptiste Work Phone: [facility] 09-13-2020 pneumococcal polysaccharide vaccine, 23 valent Connor Jean Baptiste Work Phone: [facility] 09-03-2020 influenza virus vacc ine, unspecified formulation Yehudagerry AVITIA [facility] 09-03-2020 influenza, high dose seasonal, preservative-free Nick Perez MD Work Phone: [facility] Work Phone: 09-03-2020 influenza, injectabl e, quadrivalent, contains preservative Connor Joseph Furlong Work Phone: [facility] 600 DO Work Phone: 08-29-2020 influenza virus vacc ine, unspecified formulation [employer] [facility] 08-29-2020 influenza, high dose seasonal, preservative-free Connor G Furlong Work Phone: [facility] 250 DO Work Phone: 08-29-2020 pneumococcal polysaccharide vaccine, 23 valent Connor G Furlong Work Phone: [facility] 08-11-2020 influenza virus vacc ine, unspecified formulation [employer] [facility] 08-11-2020 influenza, seasonal, injectable Connor G Furlong Work Phone: [facility] 600 DO Work Phone: 07-29-2020 influenza virus vacc ine, unspecified formulation [employer] [facility] 07-29-2020 influenza, seasonal, injectable Connor G Furlong Work Phone: [facility] 250 DO Work Phone: 09-02-2019 influenza virus vacc ine, unspecified formulation [employer] [facility] 09-02-2019 influenza, high dose seasonal, preservative-free Connor G Furlong Work Phone: [facility] 600 DO Work Phone: 08-29-2019 influenza virus vacc ine, unspecified formulation Connor G Furlong Work Phone: [facility] 08-11-2019 influenza virus vacc ine, unspecified formulation [employer] [facility] 06-17-2019 zoster vaccine recombinant Connor G Furlong Work Phone: [facility] 05-29-2019 zoster vaccine recombinant Connor G Furlong Work Phone: [facility] 04-15-2019 zoster vaccine recombinant Connor G Furlong Work Phone: [facility] 03-29-2019 zoster vaccine recombinant Connor G Furlong Work Phone: [facility] 08-29-2018 influenza virus vacc ine, unspecified formulation Connor G Furlong Work Phone: [facility] [place] 250 DO Work Phone: 09-27-2017 influenza virus vacc ine, unspecified formulation [employer] [facility] 09-27-2017 Influenza, injectabl e, Madin [place] Canine Kidney, preservative free, quadrivalent Connor G Furlong Work Phone: [facility] [employer] 600 DO Work Phone: 09-26-2017 influenza virus vacc ine, unspecified formulation Connor G Furlong Work Phone: [facility] [place] 250 DO Work Phone: 10-19-2016 influenza virus vacc ine, unspecified formulation [employer] [facility] 10-19-2016 seasonal influenza, intradermal, preservative free Connor G Furlong Work Phone: [facility] [employer] 600 DO Work Phone: 10-06-2016 influenza virus vacc ine, unspecified formulation [employer] [facility] 10-06-2016 influenza, seasonal, injectable, preservative free Connor Marinelli Furlong Work Phone: [facility] 600 DO Work Phone: 04-10-2016 pneumococcal conjuga te vaccine, 13 valent Connor G Furlong Work Phone: [facility] 04-06-2016 pneumococcal conjuga te vaccine, 13 valent Yehuda AVITIA [facility] 08-07-2014 influenza virus vacc ine, unspecified formulation Connor Marinelli Furlong Work Phone: [facility] 250 DO Work Phone: 08-07-2014 influenza, unspecifi ed formulation Yehuda AVITIA [facility] 07-29-2014 influenza virus vacc ine, unspecified formulation Connor Marinelli Furlong Work Phone: [facility] 250 DO Work Phone: 07-29-2014 pneumococcal polysaccharide vaccine, 23 valent Connor Marinelli Furlong Work Phone: [facility] 10-02-2013 pneumococcal conjuga te vaccine, 13 valent Connor Marinelli Furlong Work Phone: [facility] 02-14-2013 zoster vaccine, live Connor Marinelli Furlong Work Phone: [facility] 10-29-2012 influenza virus vacc ine, unspecified formulation Connor Marinelli Furlong Work Phone: [facility] 250 DO Work Phone: 10-29-2012 pneumococcal polysaccharide vaccine, 23 valent Connor G Furlong Work Phone: [facility] 250 DO Work Phone: 10-29-2010 pneumococcal polysaccharide vaccine, 23 valent Nick Perez MD Work Phone: [facility] Work Phone: 02-21-2010 pneumococcal polysaccharide vaccine, 23 valent Connor Marinelli Furlong Work Phone: [facility] 02-21-2010 tetanus toxoid, redu mariano diphtheria toxoid, and acellular pertussis vaccine, adsorbed Connor Marinelli Furlong Work Phone: [facility] 12-20-2009 novel influenza-H1N1 -09, preservative-free, injectable Connor Marinelli Furlong Work Phone: [facility] 600 DO Work Phone: 11-29-2009 novel influenza-H1N1 -09, preservative-free, injectable Connor Lewislong Work Phone: [facility] 250 DO Work Phone: 09-06-1999 TD(adult) unspecifie d formulation; Translations: [Td(adult) unspecified formulation] Connor Lewislong Work Phone: [facility] influenza virus vacc ine, unspecified formulation Connor Lewislong Work Phone: [facility] 250 DO Work Phone: Comment on above: 2010Jul 2012 pneumococcal polysaccharide vaccine, 23 valent Connor Marinelli Furlong Work Phone: [facility] 250 DO Work Phone: Comment on above: 2010 Payers Date Payer Category Payer Medicare MEDICARE MEDICAR E PART A AND B [id number] 2015-Present [address] [place] [address] [id number] 2015 Unknown 2015 Unknown [id number] 1959 Medicare [id number] 1959 Unknown [id number] 1950 Unknown [id number] 2.16.840.1.362034.3.579.2.356 1950 Unknown [id number] 2.16.840.1.667564.3.579.2.356 1950 Unknown [id number] 2.16.840.1.505019.3.579.2.356 1950 Unknown [id number] 2.16.840.1.021755.3.579.2.593 1950 Unknown [id number] 2.16.840.1.818076.3.579.2.593 1950 Unknown [id number] 2.16.840.1.291487.3.579.2.593 1950 Unknown [id number] 2.16.840.1.413392.3.579.2.593 1950 Unknown [id number] 2.16.840.1.850968.3.579.2.593 1950 Unknown [id number] 2.16.840.1.222025.3.579.2.593 1950 Unknown [id number] 2.16.840.1.941070.3.579.2.593 1950 Unknown [id number] 2.16.840.1.906942.3.579.2.593 1950 Unknown [id number] 2.16.840.1.970326.3.579.2.593 1950 Unknown [id number] 2.16.840.1.735898.3.579.2.593 1950 Unknown [id number] 2.16.840.1.423087.3.579.2.593 1950 Unknown [id number] 2.16.840.1.285821.3.579.2.593 1950 Unknown [id number] 2.16.840.1.583156.3.579.2.593 1950 Unknown [id number] 2.16.840.1.534856.3.579.2.593 1950 Unknown [id number] 2.16.840.1.175980.3.579.2.593 1950 Unknown [id number] 2.16.840.1.064182.3.579.2.593 1950 Unknown [id number] 2.16.840.1.654439.3.579.2.593 1950 Unknown [id number] 2.16.840.1.677384.3.579.2.593 1950 Unknown [id number] 2.16.840.1.257875.3.579.2.593 1950 Unknown [id number] 2.16.840.1.226899.3.579.2.593 1950 Unknown [id number] 2.16.840.1.256516.3.579.2.593 1950 Unknown [id number] 2.16.840.1.933861.3.579.2.593 1950 Unknown [id number] 2.16.840.1.455971.3.579.2.593 1950 Unknown [id number] 2.16.840.1.567934.3.579.2.593 1950 Unknown [id number] 2.16.840.1.190534.3.579.2.593 1950 Unknown [id number] 2.16.840.1.697381.3.579.2.593 1950 Unknown [id number] 2.16.840.1.214070.3.579.2.593 1950 Unknown [id number] 2.16.840.1.511607.3.579.2.593 1950 Unknown [id number] 2.16.840.1.181784.3.579.2.593 1950 Unknown [id number] 2.16.840.1.092283.3.579.2.593 1950 Unknown [id number] 2.16.840.1.340327.3.579.2.593 1950 Unknown [id number] 2.16.840.1.638271.3.579.2.593 1950 Unknown [id number] 2.16.840.1.889440.3.579.2.593 1950 Unknown [id number] 2.16.840.1.519581.3.579.2.593 1950 Unknown [id number] 2.16.840.1.089493.3.579.2.593 1950 Unknown [id number] 2.16.840.1.035023.3.579.2.1286 1950 Unknown [id number] 2.16.840.1.108461.3.579.2.1286 1950 Unknown [id number] 2.16.840.1.231528.3.579.2.1244 1950 Unknown [id number] 2.16.840.1.350067.3.579.2.1244 1950 Unknown [id number] 2.16.840.1.105740.3.579.2.1259 1950 Unknown [id number] 2.16.840.1.386106.3.579.2.1259 1950 Unknown [id number] 2.16.840.1.626724.3.579.2.727 1950 Unknown [id number] 2.16.840.1.978221.3.579.2.727 1950 Unknown [id number] 2.16.840.1.956021.3.579.2.727 1950 Unknown [id number] 2.16.840.1.706758.3.579.2.727 1950 Unknown [id number] 2.16.840.1.643593.3.579.2.727 1950 Unknown [id number] 2.16.840.1.905653.3.579.2.727 1950 Unknown [id number] 2.16.840.1.006840.3.579.2.727 Social History Date Type Detail Facility Start: 03-06-2024 Never a smoker Never a smoker [facility] 600 DO Work Phone: Start: 12-28-2021 End: 10-26-2023 Tobacco smoking status Never smoked tobacco (finding) [facility] Tobacco smoking status Never [facility] Start: 03-06-2024 Sex Assigned At Female [facility] Start: 08-17-2023 Tobacco use and exposure Smokeless tobacco non-user [facility] Work Phone: Start: 03-06-2024 Alcoholic beverage intake Lifetime non-drinker (finding) [facility] Work Phone: Start: 1950 Sex assigned at Not on file [facility] Work Phone: Start: 02-25-2024 End: 03-06-2024 Exposure to SARS-CoV-2 (event) Not sure [facility] Functional Status Date Assessment Result Facility 08-24-2022 Functional Status N/A [facility] 06-30-2022 Functional Status N/A [facility] Clinical Notes 06-30-2022 to 03-06-2024 Nick Perez MD - 03/06/2024 9:30 AM EDTPatient Instructions Note Date & Type Note Facility 03-06-2024 History of Present illness Narrative Subjective Miky Fuentes is a 73 y.o. female Chief Complaint Follow-up HPI Main complaint is floaters Patient returns in follow-up of problems as noted. She is doing well. Having resume Multaq she now in sinus rhythm and feels better. She denies lightheadedness dizziness syncope near syncope or palpitation. Her her EKG demonstrates sinus rhythm with acceptable QT interval. It appears that her blood pressure is acceptable and lipids are adequately treated. In light of all the above we suggest no adjustments to her therapy and continue treatment as before. We did advocate the merits of diet and weight loss. Vitals: 03/06/24 0931 BP: 104/58 BP Location: Left arm Patient Position: Sitting Pulse: (!) 44 Weight: 100 kg (221 lb) Height: 1.651 m (5' 5 ) EKG done in office today Objective Physical Exam Constitutional: Appearance: Normal appearance. HENT: Nose: Nose normal. Neck: Vascular: No carotid bruit. Cardiovascular: Rate and Rhythm: Normal rate. Pulses: Normal pulses. Heart sounds: Normal heart sounds. Pulmonary: Effort: Pulmonary effort is normal. Abdominal: General: Bowel sounds are normal. Palpations: Abdomen is soft. Musculoskeletal: General: Normal range of motion. Cervical back: Normal range of motion. Right lower leg: No edema. Left lower leg: No edema. Skin: General: Skin is warm and dry. Neurological: General: No focal deficit present. Mental Status: She is alert. Psychiatric: Mood and Affect: Mood normal. Behavior: Behavior normal. Thought Content: Thought content normal. Judgment: Judgment normal. Allergies Ciprofloxacin and Sulfa (sulfonamide antibiotics) Current Medications Current Outpatient Medications: acetaminophen (Tylenol 8 HOUR) 650 mg ER tablet, Take 1 tablet (650 mg) by mouth every 8 hours if needed for mild pain (1 - 3). Do not crush, chew, or split., Disp: , Rfl: allopurinol (Zyloprim) 300 mg tablet, Take 1 tablet (300 mg) by mouth once daily., Disp: , Rfl: CALCIUM CARBONATE-VITAMIN D3 ORAL, Take 1 tablet by mouth once daily., Disp: , Rfl: cholecalciferol (Vitamin D-3) 25 MCG (1000 UT) tablet, Take 1 tablet (25 mcg) by mouth 2 times a day., Disp: , Rfl: collagen/biotin/ascorbic acid (COLLAGEN 1500 PLUS C ORAL), Take 1 capsule by mouth once daily., Disp: , Rfl: dronedarone (Multaq) 400 mg tablet, Take 1 tablet (400 mg) by mouth if needed (AFIB). Take as needed for AFIB, Disp: 90 tablet, Rfl: 1 fexofenadine (Hannah) 60 mg tablet, Take 1 tablet (60 mg) by mouth once daily., Disp: , Rfl: levothyroxine (Synthroid, Levoxyl) 137 mcg tablet, Take 1 tablet (137 mcg) by mouth once daily in the morning. Take before meals., Disp: , Rfl: lisinopril 2.5 mg tablet, Take 1 tablet (2.5 mg) by mouth once daily., Disp: , Rfl: lovastatin (Mevacor) 10 mg tablet, Take 1 tablet (10 mg) by mouth once daily., Disp: 90 tablet, Rfl: 3 sqjjgllj-qmv-gaof-FA-vit K-lut (Centrum Silver Women) 8 mg iron-400 mcg-50 mcg tablet, Take 1 tablet by mouth once daily., Disp: , Rfl: omega-3 fatty acids-fish oil (One-Per-Day Jay-3) 684-1,200 mg capsule, Take 1 capsule (1,200 mg) by mouth once daily., Disp: , Rfl: potassium bicarbonate (K-Lyte) 25 mEq effervescent tablet, Take 1 tablet (25 mEq) by mouth 2 times a day., Disp: , Rfl: Xarelto 20 mg tablet, TAKE 1 TABLET BY MOUTH DAILY, Disp: 90 tablet, Rfl: 3 Assessment/Plan 1. Paroxysmal atrial fibrillation (Multi) None recurrent on Multaq. Stroke risk mitigated by anticoagulant therapy - Follow Up In Cardiology 2. Mixed hyperlipidemia Review of treatment demonstrates adequate control 3. Non-ischemic cardiomyopathy (Multi) Ejection fraction normalized based on recent echo 4. Never smoked tobacco Noted 5. BMI 36.0-36.9,adult The merits of diet and weight loss were advocated 6. Hyperlipidemia, unspecified hyperlipidemia type Review of treatment strategy demonstrates adequate control Scribe Attestation By signing my name below, I, Kimberley David HOLDER attest that this documentation has been prepared under the direction and in the presence of Nick Perez MD. Provider Attestation - Scribe documentation All medical record entries made by the Scribe were at my direction and personally dictated by me. I have reviewed the chart and agree that the record accurately reflects my personal performance of the history, physical exam, discussion and plan. documented in this encounter [facility] Work Phone: 03-06-2024 Instructions Ivett Mcpherson LPN - 03/06/2024 9:30 AM EDT Please bring all medicines, vitamins, and herbal supplements with you when you come to the office. Prescriptions will not be filled unless you are compliant with your follow up appointments or have a follow up appointment scheduled as per instruction of your physician. Refills should be requested at the time of your visit. documented in this encounter [facility] Work Phone: 09-05-2022 Hospital Discharge instructions Patient Education 09/05/2022 12:09:04 EU - [...] 100 degrees. Follow Up Care 08/22/2022 14:01:27 With:Yehuda AVITIA Address: [facility] [address] [place] [address]- Business (1) When:03/05/2023 12:06:31 [facility] 06-30-2022 Hospital Discharge instructions Patient Education 06/30/2022 12:01:44 Kidney Stones, Fork-so-Ejac Kidney Stones Kidney stones are rock-like masses [...] Follow these instructions at home: Medicines Take pnvm-ewg-uqilxhl and prescription medicines only as told by [...] 04/02/2009 Document Revised: 03/02/2020 Document Reviewed: 03/02/2020 [employer] Patient Education 2020 [employer]. Follow Up Care 12/28/2021 15:15:51 With:Yehuda AVITIA MD, URL Address: [address] [place], [place] [id number]- When: Unknown [facility] Evaluation + Plan note Future Appointments Appointment Date:03/02/2023 11:00:00 AM Scheduled Provider:Yehuda AVITIA MD Location:[facility] Appointment Type:URO Office Visit [facility] Evaluation + Plan note Future Appointments Appointment Date:03/02/2023 11:00:00 AM Scheduled Provider:Yehuda AVITIA MD Location:[facility] Appointment Type:URO Office Visit Diagnostic Tests PendingUrine Culture 08/11/22 [facility] Evaluation + Plan note Future Appointments Appointment Date:03/02/2023 11:00:00 AM Scheduled Provider:Yehuda AVITIA MD Location:[facility] Appointment Type:URO Office Visit Diagnostic Tests PendingUroVysion Fish and Urine Cyto ([facility]) 09/05/22 [facility] Evaluation + Plan note Future Appointments Appointment Date:05/16/2024 10:45:00 AM Scheduled Provider:Yehuda AVITIA MD Location:[facility] Appointment Type:URO Office Visit [facility] Evaluation + Plan note Future Appointments Appointment Date:05/20/2024 11:00:00 AM Scheduled Provider:RAAD Back APRN, [place] X Location:[facility] Appointment Type:URO Office Visit [facility] Evaluation + Plan note Future Appointments Appointment Date:06/10/2024 03:00:00 PM Scheduled Provider:RAAD Back APRN, [place] Location:[facility] Appointment Type:URO Office Visit [facility] Evaluation + Plan note Future Appointments Appointment Date:07/01/2024 02:30:00 PM Scheduled Provider:RAAD Back APRN, [place] Location:[facility] Appointment Type:URO Office Visit [facility] Evaluation note Diagnosis Mixed hyperlipidemia- Primary Paroxysmal atrial fibrillation (Multi) Atrial fibrillation Non-ischemic cardiomyopathy (Multi) Other primary cardiomyopathies Never smoked tobacco BMI 36.0-36.9,adult Hyperlipidemia, unspecified hyperlipidemia type documented in this encounter [facility] Work Phone: History of Present illness NarrativePatient returns in follow-up of problems as noted. In the interim she is done well. She has none of the symptoms of cardiomyopathy that preceded her original diagnosis of heart failure. With guideline directed therapy in the pentecostalism of maintenance of sinus rhythm her symptoms [...] merits of diet exercise and weight loss. [facility] [address] DO Work Phone: History of Present illness Narrative* Patient returns for follow-up of problems as noted. She is done well. She denies any angina CHF or arrhythmia symptomatology. She is tolerating Multaq therapy well in combination with anticoagulant therapy to mitigate risk of stroke. She denies any side effects from the medication or bleeding difficulties * We also queried her on signs and/or symptoms of nonischemic cardiomyopathy. This was identified in the past. The potential for developing heart failure and/or malignant life-threatening arrhythmias was discussed and she was educated regarding symptoms of heart failure and ventricular arrhythmias to watch for and encouraged to call if they arise or occur * In regards to other risk factors it appears that her blood pressure and lipids are adequately controlled based upon review and consequently we will not further adjust her medical regimen and we suggest continued therapy as is. She also was educated regarding symptoms of bradycardia arrhythmia to watch for and encouraged to seek attention if they occur * Lastly we did advocate the merits of diet and weight loss. [facility] [address] DO Work Phone: Hospital course Narrative No data available for this section [facility] Hospital Discharge instructions No data available for this section [facility] progress note No data available for this section [facility] Chief Complaint * I am doing ok * MIKY FUENTES is being seen for a 6 month [...] in exercise capacity or functional tolerance. MIKY FUENTES is being seen for a 6 month follow-up of.MIKY FUENTES is being seen for a 6 month follow-up of.MIKY TAMANNA is being seen for a 9 month [...] Directives Records FoundNo Advanced Directives Records Found Reason for Referral Specialty Diagnoses / Procedures Referred By Contac t Referred To Contact Diagnoses Paroxysmal atrial fibrillation (Multi) Procedures ECG 12 Lead Nick Perez MD [address] [facility], [place] [address] [place] [id number] Referral ID Status Reason Start Date Expiration Date V isits Requested Visits Authorized [id number] Authorized 03/06/2024 03/06/2025 1 1 Specialty Diagnoses / Procedures Referred By Contac t Referred To Contact Cardiology Diagnoses Non-ischemic cardiomyopathy (Multi) Procedures Follow Up In Cardiology Nick Perez MD [address] [facility], [address] [place] [address] Carmen Chi MD [address] [facility], [address] [place] [address] Referral ID Status Reason Start Date Expiration Date V isits Requested Visits Authorized [id number] Authorized 03/06/2024 03/06/2025 1 1 Additional Source Comments INFORMATION SOURCE (unrecogn ized section and content) DATE CREATED AUTHOR 06/26/2022 [facility] DATE CREATED AUTHOR AUTHOR'S ORGANIZ ATION 12/07/2022 [facility] [place] DATE CREATED AUTHOR AUTHOR'S ORGANIZ ATION 12/07/2022 [employer] DATE CREATED AUTHOR AUTHOR'S ORGANIZ ATION 03/09/2023 [facility] DATE CREATED AUTHOR AUTHOR'S ORGANIZ ATION 02/18/[address] [facility] 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 Relationship Specialty Start Date End Date Connor Jean Baptiste DO [address], [place] [address] PCP - General 10/29/19 Reason for Visit (unrecogniz ed section and content) Reason Comments Follow-up 2mo Specialty Diagnoses / Procedures Referred By Contac t Referred To Contact Cardiology Diagnoses Paroxysmal atrial fibrillation (Multi) Procedures Follow Up In Cardiology Nick Perez MD [address] [address], [address] [address] Referral ID Status Reason Start Date Expiration Date V isits Requested Visits Authorized [id number] Authorized 12/24/2023 12/23/2024 1 1 FOR RECORDS PERTAINING TO PATIENTS WHO ARE [...] BE BASED ON THE PRIMARY CLINICAL RECORDS. [employer] provides no warranty or guarantee of the accuracy or completeness of information in this document.
--- NOTE | 2024-07-04 11:28 | XR_ITS ---
The [address] [address] Patient Name: MIKY NOLEN MRN: [id number] date: 1950 Sex: F Assigned Patient Location: [place] Current Patient Location: [place] Accession/Order Number: [id number] Exam Date: 07/04/2024 11:20 Report Date: 07/05/2024 08:12 At the request of: KRISTEN OWENS Procedure: XR abdomen 1V EXAMINATION: XR abdomen 1V HISTORY: Kidney Stone COMPARISON: No relevant comparison available. FINDINGS: KIDNEY/URETER - RIGHT: 15 mm stone versus 2 adjacent stones within right kidney inferior pole. KIDNEY/URETER - LEFT: No visible renal or ureteral calcifications. PELVIS: No visible ureteral stones. Stable pelvic calcifications favoring phleboliths. BOWEL: No abnormal dilation or deviation. BONES: No acute abnormality. OTHER: Negative. No abnormal gaseous collections. XR/XR abdomen 1V IMPRESSION: 1. Right nephrolithiasis. Electronically authenticated by: KYLE CHENEY Date: 07/05/2024 08:12
== END 2024-07-04 10:36 | disposition home or self-care (01) ==
LOC: US 10:35
PROVIDERS: PCP Family Medicine; Visit Provider Nurse Practitioner Family
DX: N20.0 Calculus of kidney (principal)
CPT/HCPCS: 74018; 76775

== ENCOUNTER 2024-07-28 13:46 | Outpatient (OUT) | payer MEDICARE, OTHER, SELFPAY ==
--- OUTSIDE RECORDS SUMMARY | 2024-07-28 14:00 | XMS_ITS | CCD ---
Author Organization [facility] Care Team Providers Care Manager Simulation Name Role Phone Markel Connor Marinelli Unavailable Unavailable Unavailable CONNOR JEAN BAPTISTE Primary Care Physician [phone] Nick Perez II Attending Unav ailelisabeth Perez II, Nick Dan Referring Unav ailable Markel, Connor Ugarte Primary Care Unavailab le Markel, [...] Unavailable WEST, DR WILLARD Pittman Consulting Un[facility] Marinelli Primary Care Unavailable WEST, [...] DR DAN Consulting Unavailable FURLONG, DR CONNOR aMrinelli Primary Care Unavailable Zieber, Kyle Consulting Unavailable [...] CONNOR Marinelli Primary Care Unavailable WEST, DR WLILARD Pittman Consulting Unavailable WEST, DR WILLARD Pittman [...] Primary Care Unavailable Zieber, Kyle Consulting Unavailable FURLONG, DR CONNOR Marinelli Primary Care Unavailable STEPANIC, DR LAKHANI Attending Unavailable STEPANIC, DR LAKHANI Consulting Unavailable STEPANIC, DR LAKHANI Admitting Unavailable MISC, DOCTOR Admitting Unavailable MISC, DOCTOR Attending Unavailable AVITIA ., DR DAN Consulting Unavailable FURLONG, DR CONNOR Marinelli Primary Care Unavailable WEST, DR WILLARD Pittman Consulting Unavailable ZieberKyle Consulting Unavailable WEST, DR WILLARD Pittman Consulting [...] FURLONG, DR CONNOR Marinelli Primary Care Unavailable LINDEN, DR WILLARD Pittman Consulting Unavailable LINDEN, DR WILLARD Pittman Admitting Unavailable FURLONG, DR CONNOR Marinelli Primary Care Unavailable LINDEN, DR WILLARD Pittman Attending Unavailable MISC, DOCTOR Admitting Unavailable MISC, DOCTOR Attending Unavailable MISC, DOCTOR Consulting Unavailable FURLONG, DR CONNOR Marinelli Primary Care Unavailable FURLONG, CONNOR Marinelli Attending Unavailable FURLONG, CONNOR Marinelli Referring Unavailable FURLONG, CONNOR Marinelli Primary Care Unavailable FURLONG, CONNOR Marinelli Referring Unavailable FURLONG, CONNOR Marinleli Primary Care Unavailable Furng DO, Connor Ugarte Primary Care Provider NICK PEREZ Attending Unavailable FURLONG, CONNOR UGARTE Primary Care Unavailab kristine PEREZ, NICK Mcmullen Attending Unavailable FURLONG, CONNOR UGARTE Primary Care Unavailab NICK Rousseau Referring Unavailable JR. CHAPO, LESVIA Iraheta Attending Unavaila analisa COWAN JR., LESVIA Iraheta Referring Unavaila ble Orzech, Radha X Admitting Unavailable Orzech, Radha X Attending Unavailable Orzech, Radha X Attending Unavailable Orzech, Radha X Attending Unavailable DULCE ALCAZAR Attending Unavailab le AVITIA, Yehuda Haddad Attending Unavailable AVITIA, Yehuda Haddad Attending Unavailable AVITIA, Yehuda Haddad Attending Unavailable Orzech, Radha X Attending Unavailable Orzech, Radha X Attending Unavailable Orzech, Radha X Attending Unavailable AVITIA, Yehuda Haddad Attending Unavailable Allergies Allergy Classification Reported Allergen(s) Allergy Type Date of Onset Reaction(s) Facility (20 sources) Ciprofloxacin; Translations: [ciprofloxacin] Drug Allergy 12-12-19 Eruption of skin (disorder), Unknown [facility] (18 sources) Sulfonamides (Antibiotic); Translations: [Sulfa Drugs] Allergy to drug (finding) Eruption of skin (disorder) [facility] (15 sources) corn extract; Translations: [[place]] Drug Allergy 02-18-20 Unknown (qualifier value) [facility] (11 sources) Dog; Translations: [Dogs] Allergy to substance Unknown (qualifier value) [facility] (14 sources) Mold Extract; Translations: [mold] Drug Allergy 06-21-20 23 Unknown (qualifier value) [facility] (11 sources) Milk Products; Translations: [Milk Products] Food allergy Unknown (qualifier value) [facility] (11 sources) house dust mite allergen extract; Translations: [house dust mite allergen extra] Allergy to substance Unknown (qualifier value) [facility] (2 sources) Ciprofloxacin Drug Allergy 01-31-20 14 [facility] (1 source) house dust allergenic extract Drug Allergy [facility] (2 sources) Lactose Drug Allergy [facility] (1 source) Sulfonamides (Antibiotic) Drug allergy (disorder) [facility] (2 sources) Sulfamethoxazole / Trimethoprim; Translations: [...] Status: Ordered take 1 tablet by rosalinda every eight hours as needed acetaminophen (Tylenol [...] Daily, # 90 cap(s), Refills(s) 3, Pharmacy: [facility], 165, cm, 10/26/23 8:42:00 EST, Height/Length Dosing, 97.5, kg, 10/26/23 8:42:00 EST, Weight Dosing Start Date: 03/12/24 Status: Ordered Start: 02-02-2022 take 1 tablet by rosalinda th once daily allopurinol 300 mg Tab 300 mg = 1 tab(s), Oral, Daily, # 90 cap(s), Refills(s) 3, Pharmacy: [facility], 165, cm, 03/02/23 12:05:00 EDT, Height/Length [...] 03/02/23 Status: Ordered take 1 tablet by [facility] once daily Lovastatin 10 MG Oral Tablet TAKE 1 TABLET DAILY DIRECTED. Quantity: 90 Refills: 3 Ordered: 06-Dec-2022 Nick Perez MD Active Abelino Krill Oil (4 sources) Start: 07-29-2019 take 1 capsule by mouth once daily Abelino Krill Oil Abelino Krill Oil, one cap., Oral, Daily Start Date: 07/29/19 Status: Ordered fucpdkpk-bvd-ijha-F A-vit K-lut (Centrum Silver Women) 8 mg iron-400 mcg-50 mcg tablet (1 source) take 1 tablet by mouth once daily zbuahdcn-gco-roqy-F A-vit K-lut (Centrum Silver Women) 8 mg iron-400 mcg-50 mcg tablet Take 1 tablet by mouth once daily. Active omega-3 fatty acids-fish oil (One-Per-Day Adrian-3) 684-1,200 mg capsule (1 source) omega-3 fatty acids-fish oil (One-Per-Day Adrian-3) 684-1,200 mg capsule Take 1 capsule (1,200 [...] procedure, # 2 cap(s), Refills(s) 0, Pharmacy: [facility], 165, cm, 06/30/22 11:48:00 EDT, Height/Length [...] BID, # 60 tab(s), Refills(s) 11, Pharmacy: [facility], 165, cm, 10/26/23 8:42:00 EST, Height/Length [...] in the morning. Take before meals. Active Adrian 3 CAPS (7 sources) Adrian 3 CAPS BASSAM E DIRECTED. Quantity: 0 [...] Name Value Interpretation Reference Range Facil ity Urine Cytology ([facility])on 0 07-18-2024 Microscopic exam Cytology (U) [Interp] Diagnosis Info Invalid Interpretation Code [facility] Comment on above: Result Comment: A:Ur ine,Clean Catch:Voided Interpretation - Adequate but limited cellularity for evaluation. MicroScopic Description - The diagnostic interpretation is limited due to scant cellularity. Recommend repeat urine cytology and FISH testing. Adequacy - Adequate but limited Gross Description Site ID:A color light Yellow fixative Alcohol Specimen designated Clean Catch received in alcohol preservative and labeled with the patient???s name, consists of 20ml cloudy light yellow fluid. Electronically signed by : on: 07/18/2024 12:47:49 Performed By: #### 1 [id number] #### [facility] [address] [place] [address] Ambulatory Visit Summaryon 0 07-15-2024 Ambulatory Visit Summary Ambulatory Visit Summary MIKY FUENTES :1950 Visit Date:07/15/2024 Ambulatory Visit Instructions Your Diagnosis Gross hematuria Kidney stone Your Care Team Attending Physician - RAAD Back APRN, Radha Lopes Primary Care Physician - CONNOR JEAN BAPTISTE DO This Is Your Medications List Contact prescribing physician if questions or concerns Non-Formulary Medication (OTC joint supplement) acetaminophen (Tylenol 8 HR Arthritis Pain 650 mg oral tablet, extended release) allopurinol (allopurinol 300 mg Tab) calcium-vitamin D (Caltrate 600 + D) cholecalciferol (Vitamin D3) dronedarone (Multaq) levothyroxine (levothyroxine 137 mcg (0.137 mg) oral capsule) lisinopril (lisinopril 2.5 mg Tab) lovastatin (lovastatin 10 mg Tab) multivitamin with minerals (Centrum Silver) potassium bicarbonate (K-Effervescent 25 mEq oral tablet, effervescent) rivaroxaban (Xarelto 20 mg oral tablet) Procedures Performed Cystoscopy (09/05/2022), Cystoscopy (11/30/2020), Cystoscopy (07/14/2020), Cystoscopy (07/08/2020), ESWL - Extracorporeal shock wave lithotripsy of bile duct calculus (07/17/2019), Gastric sleeve (10/29/2015), H/O: hysterectomy, Renal artery stent, Repair of ventral hernia. Discharge Vitals Heart Rate (Peripheral) 65 Blood Pressure 112/64 Height 165 cm Height 65 in Weight 97.5 kg Weight 214.5 lb BMI 35.81 What to do next You Need to Schedule the Following Appointments Follow Up with MO HAYDEN, PAWEL Dee When: Comments: pending review of imaging Where: [address] [place] [id number]- Medications What How Much When Instructions Unchanged acetaminophen (Tylenol 8 HR Arthritis Pain 650 mg oral tablet, extended release) 1 Tablets By Mouth 2 times a day Contact prescribing physician if questions or concerns Unchanged allopurinol (allopurinol 300 mg Tab) 1 Tablets By Mouth Every day Contact prescribing physician if questions or concerns Unchanged calcium-vitamin D (Caltrate 600 + D) By Mouth 2 times a day Contact prescribing physician if questions or concerns Unchanged cholecalciferol (Vitamin D3) 1,000 International unit By Mouth Every day Contact prescribing physician if questions or concerns Unchanged dronedarone (Multaq) 400 Milligram By Mouth 2 times a day Contact prescribing physician if questions or concerns Unchanged levothyroxine (levothyroxine 137 mcg (0.137 mg) oral capsule) 1 Capsules By Mouth Every day Contact prescribing physician if questions or concerns Unchanged lisinopril (lisinopril 2.5 mg Tab) Contact prescribing physician if questions or concerns Unchanged lovastatin (lovastatin 10 mg Tab) Contact prescribing physician if questions or concerns Unchanged multivitamin with minerals (Centrum Silver) 1 Tablets By Mouth Every day Contact prescribing physician if questions or concerns Unchanged Non-Formulary Medication (OTC joint supplement) one tab By Mouth Every day Contact prescribing physician if questions or concerns Unchanged potassium bicarbonate (K-Effervescent 25 mEq oral tablet, effervescent) 1 Tablets By Mouth 2 times a day Contact prescribing physician if questions or concerns Unchanged rivaroxaban (Xarelto 20 mg oral tablet) 1 Tablets Every day Contact prescribing physician if questions or concerns Allergies [place] (Unknown) Dogs (Unknown) Milk Products (Unknown) Mold [...] you for choosing us for your care. Education Materials Kidney Stones Kidney stones are rock-like masses [...] pee. The stone usually leaves your body through your pee. A doctor may need to take out the stone. What are the causes? Kidney stones may be caused by: ? Too much calcium in the body. This may be caused by too much parathyroid hormone in the b (more content not included)... Normal [facility] Urine Cytology ([facility])on 0 07-15-2024 Method of Extraction Voided Normal [facility] Comment on above: Performed By: #### 1 [id number] #### [facility] [address] [place] [address] Number of Jars 1 Invalid Interpretation Code [facility] Comment on above: Performed By: #### 1 [id number] #### [facility] [address] [place] [address] Specimen Clean Catch Normal [facility] Comment on above: Performed By: #### 1 [id number] #### [facility] [address] [place] [address] Type of Service Technical Only Normal [facility] Comment on above: Performed By: #### 1 [id number] #### [facility] [address] [place] [address] Urology Office/Clinic Noteon 07-15-2024 Urology Office/Clinic Note Urology Office/Clinic Note Chief Complaint f/u WILLARD and KUB HPI Staff 74 yr old female here today for f/u w/ KUB & WILLARD Previous Dx: R flank pain, kidney stones, gross hematuria. *Allopurinol 300mg qd therapy Dysuria: _NO Incomplete bladder emptying: _NO Hematuria: _YES Frequency: _Q2-3 HRS Urgency: _NO Nocturia: _2X Stream: _NORMAL Leaking: _NO Post void dripping: _NO Wearing pads/ Depends: _AT TIMES Urge incontinence: _NO Stress incontinence: _NO Incontinence without Sensory Awareness: _NO Abdominal pain: _NO Flank pain: _YES, MOSTLY RIGHT Sexual complaints: _ History of Present Illness I have reviewed and verified the staff HPI to be accurate for this encounter. Portions of this record may have been created with voice recognition artificial intelligence software, specifically [employer], [employer] and or [employer]. Substitutions may have occurred due to the inherent limitations of voice recognition and artificial intelligence software. Review of Systems PHQ Score Initial Depression Screen Score: 0 SCORE Physical Exam Vitals & Measurements HR: 65(Peripheral) BP: 112/64 HT: 65 in HT: 165 cm WT: 97.5 kg WT: 214.5 lb BMI: 35.81 General: Well developed, well nourished, in no acute distress. Genitourinary: Flank Pain: none. Bladder: nonpalpable. Assessment/Plan PRW pt BBS 11 1. Gross hematuria (R31.0: Gross hematuria) Patient called due to gross hematuria x 1 day about 1 month ago. She thought she could be passing stone at the time, although she did not have any changes in her urinary symptoms or flank pain. She did not see anything past. She states she had another episode of gross hematuria lasting just over a day last week. Again, denies any associated symptoms. UA today with large blood, no signs of infection. Discussed potential etiologies and implications of hematuria with patient. These include: trauma (recent catheterization, etc), Tumor (renal, urothelial, prostatic, urethral, etc), infection/inflammatio n (UTI, cystitis, recent catheterization, interstitial cystitis, radiation), stones, period/menses (pseudohematuria), obstructive uropathy (urolithiasis, stricture, etc), nephritis (glomeurlonephritis, Alport's syndrome, Greco's IgA nephropathy, interstitial nephritis, etc), Tuberculosis, thrombosis (renal vein thrombosis, renal infarct, pseudoaneurysm, etc) and hematologic (bleeding disorders, anticoagulation, sickle cells disease, etc) We discussed further workup including additional urine studies, cystoscopy, potential for additional imaging. -Send urine for cytology, not enough for FISH today. -Consult with PRW regarding cystoscopy now versus cystoscopy at the time of possible stone procedure, CTU? Ordered: Urine Cytology ([facility]) 2. Kidney stone (N20.0: Calculus of kidney) Hx of multiple lithotripsies in the past. [1] CT AP wo con 10/11/23 Multiple additional smaller right renal calculi are noted. Two punctate 1 mm left renal calculi are suggested. KUB 10/24/23 bilateral nephrolithiasis. [2] KUB 07/04/24 - 15 mm stone versus 2 adjacent stones within the right kidney inferior pole R WILLARD 07/02/24 - nonobstructing 3 mm stone within the left mid kidney. Nonobstructing 11 x 5 x 10 mm stone within the right inferior pole We discussed significant size of stone on the right, likely unable to pass. We did briefly discuss ESWL versus laser lithotripsy. Patient does note that she had both procedures in the past. She does recall that during ESWL, she had issues with cardiac dysrhythmia, but states she is lost a significant amount of weight since then. Patient states that she would be willing to undergo stone procedure, if deemed necessary by PRW. -Will consult with PRW regarding most recent imaging, will schedule for follow-up with PRW to discuss further if necessary. -Continue Effer-K 25 mEq twice daily and allopurinol 300 mg daily Ordered: Urine Cytology ([facility]) Urnls Dip Stick Auto w/o Microscopy POC 28403 Follow-up With When Contact Information MO HAYDEN, Yehuda Haddad, URL [address] [place] [address]- Additional Instructions: pending review of imaging Patient Education Kidney Stones, Blrn-nu-Inhe Hematuria, Adult Problem List/Past Medical History Ongoing [...] Extracorporeal shock wave lithotripsy of bile duct (more content not included)... Normal [facility] Comment on above: Result Comment: Elec tronically Signed By: RAAD Back APRN, Aurora X\.br\Date and Time Signed: 07/15/24 15:39 EDT ECG 12 Leadon 03-06-2024 Sinus bradycardia with occasional PVCs Low voltage QRS Nonspecific ST change QTc 391 ms [facility] Work Phone: BASIC METABOLIC PANLon 02-17 Anion gap [Moles/Vol] 6 mmol/L Normal 5-15 [facility] Comment on above: Performed By: #### B YONATAN, THYR #### [facility] ([id number]) [address], [address] [place] [address] Calcium [Mass/Vol] 9.8 mg/dL Normal 8.5-10.5 [facility] Comment on above: Performed By: #### B YONATAN, THYR #### [facility] ([id number]) [address], [address] [place] [address] Chloride [Moles/Vol] 106 mmol/L Normal 98-109 [facility] Comment on above: Performed By: #### B YONATAN, THYR #### [facility] ([id number]) [address], [address] [place] [address] CO2 [Moles/Vol] 31 mmol/L Normal 22-32 [facility] Comment on above: Performed By: #### B YONATAN, THYR #### [facility] ([id number]) [address], [address] [place] [address] Creatinine [Mass/Vol] 0.90 mg/dL Normal 0.40-1.00 [facility] Comment on above: Result Comment: METH OD TRACEABLE TO IDMS STANDARD Performed By: #### B YONATAN, THYR #### [facility] ([id number]) [address], [address] [place] [address] GFR/1.73 sq M.predicted among non-blacks MDRD (S/P/Bld) [Vol rate/Area] 68 mL/min/{1.73_m2} Normal >59 [facility] Comment on above: Result Comment: Reported eGFR is based on the CKD-EPI 2020 equation that does not use a race coefficient. Performed By: #### B YONATAN, THYR #### [facility] ([id number]) [address], [address] [place] [address] Glucose [Mass/Vol] 105 mg/dL High 65-99 [facility] Comment on above: Performed By: #### B YONATAN, THYR #### [facility] ([id number]) [address], [address] [place] [address] Potassium [Moles/Vol] 4.2 mmol/L Normal 3.5-5.0 [facility] Comment on above: Performed By: #### B YONATAN, THYR #### [facility] ([id number]) [address], [address] [place] [address] Sodium [Moles/Vol] 143 mmol/L Normal 134-146 [facility] Comment on above: Performed By: #### B YONATAN, THYR #### [facility] ([id number]) [address], [address] [place] [address] Urea nitrogen [Mass/Vol] 19 mg/dL Normal 5-27 [facility] Comment on above: Performed By: #### B YONATAN, THYR #### [facility] ([id number]) [address], [address] [place] [address] THYROID PROFILEon 02-18-2024 Free T4 [Mass/Vol] 1.92 ng/dL High 0.61-1.60 [facility] Comment on above: Performed By: #### B YONATAN, THYR #### [facility] ([id number]) [address], [address] [place] [address] TSH 0.58 uIU/mL Normal 0.49-4.67 [facility] Comment on above: Performed By: #### B YONATAN, THYR #### [facility] ([id number]) [address], [address] [place] [address] Ambulatory Visit Summaryon 1 Ambulatory Visit Summary MIKY FUENTES :1950 Visit Date:10/26/2023 Ambulatory Visit Instructions Your Diagnosis Ureteral stone with hydronephrosis Kidney stone Tests Performed Urnls Dip Stick Auto w/o Microscopy POC 09423 Your Care Team Attending Physician - Yehuda [...] AM EST With: Where: [facility] Normal [address] [place] [address]- \.br\ You Need to Schedule the Following Appointments\.br\ Follow Up with Yehuda AVITIA MD, URL When: \.br\ Where:\.br\ [address] [facility] D\.br\ [place] [address]-\.br\ Medications\.br\ What How Much When Instructions\.br\ New potassium bicarbonate (K-Effervescent 25 mEq oral tablet, effervescent) 1 Tablets By Mouth 2 times a day Refills: 11 Pickup at [facility]\.br\ Unchanged allopurinol (allopurinol 300 mg Tab) [...] if questions or concerns \.br\ Pharmacy Information\.br\ [facility]: [address] [place], [place] [id number] [phone]\.br\ \.br\ What How Much When Why Comments\.br\ Stop Taking tamsulosin (Flomax 0.4 mg Cap) 1 Capsules By Mouth Every day Right flank pain Kidney stones Gross hematuria\.br\ Test Results\.br\ Urnls Dip Stick Auto w/o Microscopy POC 01064 (10/26/2023)\.br\ Bilirubin Urine Dipstick - Negative\.br\ Blood Urine Dipstick - 3+ Large\.br\ Glucose Urine Dipstick - Negative\.br\ Ketones Urine Dipstick - Negative\.br\ Leukocytes Urine Dipstick - Negative\.br\ Nitrite Urine Dipstick - Negative\.br\ Protein Urine Dipstick - 2+ (100 mg/dl)\.br\ Specific [place] Urine Dipstick - 1.025\.br\ Urine Appearance Urine Dipstick - Slightly cloudy\.br\ Urine Color Urine Dipstick - Yellow\.br\ Urobilinogen Urine Dipstick - Normal 0.2-1 EU/dl\.br\ pH Urine Dipstick - 5\.br\ Allergies\.br\ [place] (Unknown)\.br\ Dogs (Unknown)\.br\ Milk Products (Unknown)\.br\ Mold [...] a salad and fruit [facility] Patient Educationon 10-26-20 Patient Education Nephrology [...] Spinach (cooked), rhubarb, beets, sweet potatoes, and Northern Irish chard. ? Peanuts. ? Potato chips, syriac fries, and baked potatoes with skin on. ? Nuts and nut products. ? Chocolate. ? If you regularly take a diuretic medicine, make sure to eat at least 1 or 2 servings of fruits or vegetables that are high in potassium each day. These include: ? Avocado. ? Banana. ? [place], prune, carrot, or tomato juice. ? Baked [...] fish oil, or vitamin B6. ? Take uqtd-ibw-bttyyvm and prescription medicines only as told by your health care provider. These include supplements. What foods sh (more content not included)... Normal [facility] [id number] [facility] [id number]#1 .00TIFF [facility] Urology Office/Clinic Noteon 10-26-2023 Urology Office/Clinic Note Chief Complaint CT Review HPI Staff 2 wk f/u with KUB. Saw DAXA at prior OV. Previous Dx: R flank pain, kidney stones, gross hematuria. S/p ESWL 11/18/20. CT AP wo con done 10/11/23 at [facility].Was given Tamsulosin, however stopped taking after [...] Contact Information MO HAYDEN, Yehuda Haddad, [address] [place] [address]- Additional Instructions: 6 months Patient Education Dietary Guidelines to Help Prevent Kidney Stones I, Chantal Bishop, personally scribed for Dr. Aviita on 10/26/2023 09:08:12. . Documentation recorded by [...] OTC joint sup (more content not included)... [facility] Comment on above: Result Comment: Elec tronically Signed By: Yehuda AVITIA MD\.br\Date and Time Signed: 10/26/23 09:11 EST\.br\Electronically Co-Signed By: Chantal Bishop.jaison\Date and Time Co-Signed: 10/26/23 09:09 EST RAD - CT Reporton 10-15-2023 RAD - CT Report [id number]# 1.00TIFF [facility] RAD - CT Report [id number]#1 .00TIFF [facility] RAD - MISCon 10-15-2023 RAD - MISC [id number]#1 .00TIFF [facility] RAD - MISC [id number]#1 .00TIFF [facility] Ambulatory Visit Summaryon 1 12-10-2022 Ambulatory Visit Summary MIKY FUENTES :1950 Visit Date:10/09/2023 Ambulatory Visit Instructions Your Diagnosis Gross hematuria Right flank pain Tests Performed Urnls Dip Stick Auto w/o Microscopy POC 17491 Your Care Team Attending Physician - DORA [...] Urnls Dip Stick Auto w/o Microscopy POC 26236 (10/09/2023) Bilirubin Urine Dipstick - Negative Blood Urine Dipstick - 3+ Large Glucose Urine Dipstick - Negative Ketones Urine Dipstick - Negative Leukocytes Urine Dipstick - Negative Nitrite Urine Dipstick - Negative Protein Urine Dipstick - 3+ (300 mg/dl) Specific [place] Urine Dipstick - >=1.030 Urine Appearance Urine Dipstick - Clear Urine Color Urine Dipstick - Yellow Urobilinogen Urine Dipstick - Normal 0.2-1 EU/dl pH Urine Dipstick - 5.5 Allergies [place] (Unknown) Dogs (Unknown) Milk Products (Unknown) Mold [...] choosing us for your care. Normal [facility] Patient Educationon 10-09-20 Patient Education Urology [...] these instructions at home: Medicines ? Take jmns-tca-kbmwznz and prescription medicines only as told by [...] the blood stops without treatment. ? Take ekyd-jxn-cwputxt and prescription medicines only as told by your health care provider. ? Drink enough fluid to keep your urine pale yellow. This information is not intended to replace advice given to you by your health care provider. Make sure you discuss any questions you have with your health care provider. Document Revised: 06/15/2021 Document Reviewed: 06/15/2021 [employer] Patient Education ? 2022 [employer] [facility] Urology Office/Clinic Noteon 10-09-2023 Urology Office/Clinic [...] Daily, # 30 cap(s), Refills(s) 0, Pharmacy: [facility], 165, cm, 10/09/23 15:24:00 EST, Height/Length Dosing, 113, kg, 10/09/23 15:24:00 EST, Weight Dosing CT Abdomen w/o Contrast E&M of Est. Patient Moderate 30-39 Min 25062 2. Kidney stones (N20.0: Calculus of kidney) see #1 KUB from this spring showed several medium (6-7mm) R renal stones has had multiple lithotripsy in past Ordered: tamsulosin, 0.4 mg = 1 cap(s), Oral, Daily, # 30 cap(s), Refills(s) 0, Pharmacy: [facility], 165, cm, 10/09/23 15:24:00 EST, Height/Length Dosing, 113, kg, 10/09/23 15:24:00 EST, Weight Dosing CT Abdomen w/o Contrast E&M of Est. Patient Moderate 30-39 Min 15408 3. Gross hematuria (R31.0: Gross hematuria) see #1 Ordered: tamsulosin, 0.4 mg = 1 cap(s), Oral, Daily, # 30 cap(s), Refills(s) 0, Pharmacy: [facility], 165, cm, 10/09/23 15:24:00 EST, Height/Length Dosing, 113, kg, 10/09/23 15:24:00 EST, Weight Dosing CT Abdomen w/o Contrast E&M of Est. Patient Moderate 30-39 Min 53626 Urnls Dip Stick Auto w/o Microscopy POC 99412 Follow-up With When Contact Information INGE CARDONA, DORA [place], URL [address] [place] [address] Business (1) Additional Instructions: pending [...] B (more content not included)... Normal [facility] Comment on above: Result Comment: Elec tronically Signed By: INGE CARDONA, DORA [place]\.br\Date and Time Signed: 10/09/23 15:49 EST CREATININEon 03-05-2023 Creatinine [Mass/Vol] 1.16 mg/dL Critically high 0.55-1.02 [facility] Comment on above: Performed By: #### C AIYANA #### [facility] [place] [facility] [address] [place] [address] Dr. Alysha Machuca EGFR-AF [place]I 56 mL/min/1.73m2 Critically low >=60 [facility] [place] Comment on above: Performed By: #### C AIYANA #### [facility] [place] [facility] [address] [address] [address] Alysha Machuca EGFR-NON AF [place] 46 mL/min/1.73m2 Critically low >=60 [facility] Comment on above: Performed By: #### C AIYANA #### [facility] [place] [facility] [address] [address] ABD/PELVIS WO CONon [...] KYLE BLANC Date: 2023-03-05 15:08 Normal [facility] [place] VITAMIN B1 (THIAMINE)on 01-28 Vit. B1, Whole Blood 132.2 nmol/L Normal 66.5-200.0 [facility] Comment on above: Performed By: #### V ITB1T ####[facility] [place] [id number] [address]Dr. Alysha Machuca CBC AUTO DIFFon 02-20-2023 BASO # 0.1 103/ul Normal 0.0-0.1 [facility] Comment on above: Performed By: #### C BC #### [facility] [place] [facility] [address] [place], [place] [address] Dr. Alysha Machuca Basophils/100 WBC (Bld) 0.9 % Normal 0.2-2.0 [facility] Comment on above: Performed By: #### C BC #### [facility] [place] [facility] [address] [place] [address] Dr. Alysha Machuca EO # 0.2 103/ul Normal 0.0-0.7 [facility] Comment on above: Performed By: #### C BC #### [facility] [place] [facility] [address] [place] [address] Dr. Alysha Machuca Eosinophils/100 WBC (Bld) 3.0 % Normal 0.9-7.0 [facility] Comment on above: Performed By: #### C BC #### [facility] [place] [facility] [address] [place] [address] Dr. Alysha Machuca Erythrocyte distribution width (RBC) [Ratio] 13.9 % Normal 11.0-15.0 [facility] Comment on above: Performed By: #### C BC #### [facility] [place] [facility] [address] [place] [address] Dr. Alysha Machuca Hematocrit (Bld) [Volume fraction] 39.5 % Normal 36.0-48.0 [facility] Comment on above: Performed By: #### C BC #### [facility] [place] [facility] [address] [place] [address] Dr. Alysha Machuca Hemoglobin (Bld) [Mass/Vol] 12.7 g/dL Normal 12.0-16.0 [facility] Comment on above: Performed By: #### C BC #### [facility] [place] [facility] [address] [place] [address] Dr. Alysha Machuca IG # 0.01 10e3/ul Normal 0.00-0.03 [facility] Comment on above: Performed By: #### C BC #### [facility] [place] [facility] [address] [place] [address] Dr. Alysha Machuca IG % 0.2 % Normal 0.0-0.5 [facility] Comment on above: Performed By: #### C BC #### [facility] [place] [facility] [address] [place] [address] Dr. Alysha Machuca LYMPH # 1.7 103/ul Normal 1.2-3.8 [facility] Comment on above: Performed By: #### C BC #### [facility] [place] [facility] [address] [place] [address] Dr. Alysha Machuca Lymphocytes/100 WBC (Bld) 30.7 % Normal 20.5-60.0 [facility] Comment on above: Performed By: #### C BC #### [facility] [place] [facility] [address] [place] [address] Dr. Alysha Machuca MANUAL DIFF REQ NO Normal [facility] Comment on above: Performed By: #### C BC #### [facility] [place] [facility] [address] [place] [address] Dr. Alysha Machuca MCH (RBC) [Entitic mass] 29.3 pg Normal 26.7-34.0 [facility] Comment on above: Performed By: #### C BC #### [facility] [place] [facility] [address] [place] [address] Dr. Alysha Machuca MCHC (RBC) [Mass/Vol] 32.2 g/dL Normal 29.9-35.2 [facility] Comment on above: Performed By: #### C BC #### [facility] [place] [facility] [address] [place] [address] Dr. Alysha Machuca MCV (RBC) [Entitic vol] 91.0 fL Normal 81.0-99.0 [facility] Comment on above: Performed By: #### C BC #### [facility] [place] [facility] [address] [place] [address] Dr. Alysha Machuca MONO # 0.4 103/ul Normal 0.3-0.8 [facility] Comment on above: Performed By: #### C BC #### [facility] [place] [facility] [address] [place] [address] Dr. Alysha Machuca Monocytes/100 WBC (Bld) 6.8 % Normal 1.7-12.0 [facility] [place] Comment on above: Performed By: #### C BC #### [facility] [place] [facility] [address] [place] [address] Dr. Alysha Machuca NEUT # 3.3 103/ul Normal 1.4-6.5 [facility] [place] Comment on above: Performed By: #### C BC #### [facility] [place] [facility] [address] [address] [address] Alysha Machuca Neutrophils/100 WBC (Bld) 58.4 % Normal 43.0-75.0 [facility] Comment on above: Performed By: #### C BC #### [facility] [place] [facility] [address] [address] [address] Alysha Machuca Platelet mean volume (Bld) [Entitic vol] 9.3 fL Critically low 9.5-13.5 [facility] Comment on above: Performed By: #### C BC #### [facility] [place] [facility] [address] [address] [address] Alysha Machuca PLT 186 103/ul Normal 150-450 [facility] Comment on above: Performed By: #### C BC #### [facility] [place] [facility] [address] [address] [address] Alysha Machuca RBC 4.34 106/ul Normal 4.20-5.40 [facility] [place] Comment on above: Performed By: #### C BC #### [facility] [place] [facility] [address] [address] [address] Alysha Machuca WBC 5.6 103/ul Normal 4.0-11.0 [facility] [place] Comment on above: Performed By: #### C BC #### [facility] [place] [facility] [address] [address] [address] Alysha Machuca FERRITINon 02-20-2023 Ferritin [Mass/Vol] 36.0 ng/mL Normal 8.0-252.0 [facility] [place] Comment on above: Performed By: #### F ERR, B12FOL, FETIBC, VITAD ####[facility] [place] [id number] [address]Dr. Alysha Machuca IRON AND TIBCon 02-20-2023 % SATURATION 15.8 % Normal [facility] Comment on above: Performed By: #### F ERR, B12FOL, FETIBC, VITAD ####[facility] [place] [id number] [address]Dr. Alysha Machuca Iron [Mass/Vol] 53.0 ug/dL Normal 50.0-170.0 [facility] Comment on above: Performed By: #### F ERR, B12FOL, FETIBC, VITAD ####[facility] [place] [id number] [id number]. Alysha Machuca TIBC DIRECT 335.0 ug/dL Normal 250.0-450.0 [facility] Comment on above: Performed By: #### F ERR, B12FOL, FETIBC, VITAD ####[facility] [place] [id number] [place], [place] [address]Ob. Alysha Machuca MAGNESIUMon 02-20-2023 Magnesium [Mass/Vol] 1.9 mg/dL Normal 1.8-2.4 [facility] Comment on above: Performed By: #### P HOS, CMP, MG #### [facility] [place] [facility] [address] [place] [address] Dr. Alysha Machuca PHOSPHORUSon 02-20-2023 Phosphate [Mass/Vol] 3.9 mg/dL Normal 2.6-4.7 [facility] Comment on above: Performed By: #### P HOS, CMP, MG #### [facility] [place] [facility] [address] [place] [address] Dr. Alysha Machuca PROF 14(COMP METB)on 023 Albumin [Mass/Vol] 3.4 g/dL Normal 3.4-5.0 [facility] Comment on above: Performed By: #### P HOS, CMP, MG #### [facility] [place] [facility] [address] [place] [address] Dr. Alysha Machuca Albumin/Globulin [Mass ratio] 0.9 {ratio} Normal [facility] [place] Comment on above: Performed By: #### P HOS, CMP, MG #### [facility] [place] [facility] [address] [place] [address] Dr. Alysha Machuca ALP [Catalytic activity/Vol] 123 U/L Critically high 46-116 [facility] Comment on above: Performed By: #### P HOS, CMP, MG #### [facility] [place] [facility] [address] [place] [address] Dr. Alysha Machuca ALT [Catalytic activity/Vol] 21 U/L Normal 14-59 [facility] Comment on above: Performed By: #### P HOS, CMP, MG #### [facility] [place] [facility] [address] [place] [address] Dr. Alysha Machuca Anion gap [Moles/Vol] 13.8 mmol/L Normal [facility] Comment on above: Performed By: #### P HOS, CMP, MG #### [facility] [place] [facility] [address] [place] [address] Dr. Alysha Machuca AST [Catalytic activity/Vol] 15 U/L Normal 15-37 [facility] [place] Comment on above: Performed By: #### P HOS, CMP, MG #### [facility] [place] [facility] [address] [place] [address] Dr. Alysha Machuca Bilirubin [Mass/Vol] 0.5 mg/dL Normal 0.2-1.0 [facility] Comment on above: Performed By: #### P HOS, CMP, MG #### [facility] [place] [facility] [address] [place] [address] Dr. Alysha Machuca Calcium [Mass/Vol] 9.6 mg/dL Normal 8.5-10.1 [facility] [place] Comment on above: Performed By: #### P HOS, CMP, MG #### [facility] [place] [facility] [address] [place] [address] Dr. Alysha Machuca Chloride [Moles/Vol] 103 mmol/L Normal 98-107 [facility] [place] Comment on above: Performed By: #### P HOS, CMP, MG #### [facility] [place] [facility] [address] [place] [address] Dr. Alysha Machuca CO2 [Moles/Vol] 25.2 mmol/L Normal 21.0-32.0 [facility] Comment on above: Performed By: #### P HOS, CMP, MG #### [facility] [place] [facility] [address] [place] [address] Dr. Alysha Machuca Creatinine [Mass/Vol] 0.95 mg/dL Normal 0.55-1.02 [facility] Comment on above: Performed By: #### P HOS, CMP, MG #### [facility] [place] [facility] [address] [address] [address] Alysha Machuca EGFR-AF [place] >60 Normal >=60 [facility] Comment on above: Performed By: #### P HOS, CMP, MG #### [facility] [place] [facility] [address] [address] [address] Alysha Machuca EGFR-NON AF [place] 58 mL/min/1.73m2 Critically low >=60 [facility] [place] Comment on above: Performed By: #### P HOS, CMP, MG #### [facility] [place] [facility] [address] [place] [address] Dr. Alysha Machuca Globulin (S) [Mass/Vol] 3.6 g/dL Normal [facility] [place] Comment on above: Performed By: #### P HOS, CMP, MG #### [facility] [place] [facility] [address] [place] [address] Dr. Alysha Machuca Glucose [Mass/Vol] 96 mg/dL Normal 74-106 [facility] [place] Comment on above: Performed By: #### P HOS, CMP, MG #### [facility] [place] [facility] [address] [place] [address] Dr. Alysha Machuca Potassium [Moles/Vol] 4.0 mmol/L Normal 3.5-5.1 [facility] [place] Comment on above: Performed By: #### P HOS, CMP, MG #### [facility] [place] [facility] [address] [place] [address] Dr. Alysha Machuca Protein [Mass/Vol] 7.0 g/dL Normal 6.4-8.2 [facility] [place] Comment on above: Performed By: #### P HOS, CMP, MG #### [facility] [place] [facility] [address] [place] [address] Dr. Alysha Machuca Sodium [Moles/Vol] 138 mmol/L Normal 136-145 [facility] [place] Comment on above: Performed By: #### P HOS, CMP, MG #### [facility] [place] [facility] [address] [place] [address] Dr. Alysha Machuca Urea nitrogen [Mass/Vol] 21.0 mg/dL Critically high 7.0-18.0 [facility] [place] Comment on above: Performed By: #### P HOS, CMP, MG #### [facility] [place] [facility] [address] [address] [address] Alysha Machuca Urea nitrogen/Creatini ne [Mass ratio] 22.1 mg/mg Normal [facility] [place] Comment on above: Performed By: #### P HOS, CMP, MG #### [facility] [place] [facility] [address] [address] [address] Alysha Machuca VIT B12 AND FOLATEon 023 Cobalamin (Vitamin B12) [Mass/Vol] 652.0 pg/mL Normal 193.0-986.0 [facility] Comment on above: Performed By: #### F ERR, B12FOL, FETIBC, VITAD ####[facility] [place] [address] [address]DrMaite Machuca FOLATE 18.30 ng/mL Normal 8.60-58.90 [facility] Comment on above: Performed By: #### F ERR, B12FOL, FETIBC, VITAD ####[facility] [place] [address] [address]Dr. Alysha Machuca VITAMIN D 25 [place]on 02-20-2023 VIT D 25-OH 41.7 ng/mL Normal [facility] [place] Comment on above: Performed By: #### F ERR, B12FOL, FETIBC, VITAD ####[facility] [place] [id number] [address]Dr. Alysha Machuca VIT D RANGES SEE BELOW Normal [facility] [place] Comment on above: Result Comment: <20 ng/mL Vit D deficient 20 - <30 ng/mL Vit D insufficient 30 - 100 ng/mL Vit D sufficient >100 ng/mL Potential Toxicity Performed By: #### F ERR, B12FOL, FETIBC, VITAD ####[facility] [place] [address] [address]DrMaite Machuca XR KUB 1 VIEWon 02-20-2023 XR [...] KYLE BLANC Date: 2023-02-20 15:57 Normal [facility] [place] Office Visit (Cardiology)on 12-06-2022 Follow-up visit Diagnoses/Problems Assessed Anticoagulated (V58.61) (Z79.01) Hyperlipidemia (272.4) (E78.5) Non-ischemic cardiomyopathy (425.4) (I42.8) Paroxysmal atrial fibrillation (427.31) (I48.0) Class 2 obesity with body mass index (BMI) of 36.0 to 36.9 in adult (278.00,V85.36) (E66.9,Z68.36) Never a smoker Orders Class 2 obesity with body mass index (BMI) of 36.0 to 36.9 in adult Healthy Weight Tips; Status:Complete; Done: 55Rwn0350 Some eating tips that can help you lose weight.; Status:Complete; Done: 77Nlw0355 Hyperlipidemia Renew: Lovastatin 10 MG Oral Tablet; TAKE 1 TABLET DAILY DIRECTED Paroxysmal atrial fibrillation IO EKG Electrocardiogram- 12 Lead; Status:Complete; Done: [id number] SocHx: Never a smoker Tobacco Use Screening; Status:Complete; Done: 15Apf3669 Patient Instructions Please bring all medicines, vitamins, [...] MG Oral TabletTAKE 1 TABLET Twice daily Adrian 3 [place] DIRECTED. Tylenol Arthritis Ext Relief [...] negative for complaint. Vitals Vital Signs Recorded: 06Dec2022 01:27PM Heart Rate43, Apical Wqpncgng806, RUE, Sitting Gilracwqa40, RUE, Sitting Height5 ft 5 in Xszmbq171 lb BMI Mphdpedpct37.94 kg/m2 BSA Calculated2.07 Tobacco Useb) No PHQ-2 [...] Screening.on 023 Adult depression screening assessment No [facility] y 250 DO Work Phone: Fall risk assessment a) No falls within the last year [facility] y 250 DO Work Phone: Tobacco use status CPHS b) No [facility] y 250 DO Work Phone: VC INJ SCL [place]MON[place] DISPENSER VEINSon 0 11-03-2022 VC INJ SCL [place]MON[place] DISPENSER VEINS Patient: MIKY FUENTES Exam Date: 11/03/2022 : 1950 Gender:F Ordering : DR WILLARD GAMBOA M.D. Admission #: [id number] Family : Order #: [id number] CLICK HERE TO VIEW EXAM RADIOLOGY REPORT PROCEDURE: VEIN CENTER INJECTION SCLEROSING SOLUTION MULTIPLE VEINS SAME COMPARISON: VC INJ SCL EDMOND SODA DISPENSER VEINS, 10/27/2022. VC INJ SCL EDMOND SODA DISPENSER VEINS, 10/16/2022. INDICATIONS: Pain co-occurrent and due [...] Gamboa MD on 11/03/2022 at 12:37 Normal [facility] XR KUB 1 VIEWon 11-03-2022 XR [...] by: KYLE BLANC Date: 2022-11-03 12:52 Normal [facility] VC INJ SCL EDMOND SODA DISPENSER VEINSon 1 VC INJ SCL EDMON[place] DISPENSER VEINS Patient: MIKY FUENTES Exam Date: 10/27/2022 : 1950 Gender:F Ordering : DR WILLARD GAMBOA M.D. Admission #: [id number] Family : Order #: [id number] CLICK HERE TO VIEW EXAM RADIOLOGY REPORT PROCEDURE: VEIN CENTER INJECTION SCLEROSING SOLUTION MULTIPLE VEINS SAME COMPARISON: VC INJ SCL EDMOND SODA DISPENSER VEINS, 10/16/2022. VC INJ SCL EDMOND SODA DISPENSER VEINS, 10/06/2022. INDICATIONS: Pain co-occurrent and due [...] Gamboa MD on 10/27/2022 at 11:46 Normal [facility] VC INJ SCL EDMOND SODA DISPENSER VEINSon 1 12-17-2021 VC INJ SCL EDMON[place] DISPENSER VEINS Patient: MIKY FUENTES Exam Date: 10/16/2022 : 1950 Gender:F Ordering : DR WILLARD GAMBOA M.D. Admission #: [id number] Family : Order #: [id number] CLICK HERE TO VIEW EXAM RADIOLOGY REPORT PROCEDURE: VEIN CENTER INJECTION SCLEROSING SOLUTION MULTIPLE VEINS SAME COMPARISON: VC INJ SCL EDMOND SODA DISPENSER VEINS, 10/06/2022. INDICATIONS: Pain co-occurrent and due [...] Blanc M.D. on 10/17/2022 at 08:12 Normal [facility] CREATININEon 10-10-2022 Creatinine [Mass/Vol] 1.11 mg/dL Critically high 0.55-1.02 [facility] Comment on above: Performed By: #### C AIYANA ####[facility] [place] [id number] [address]Dr. Easleydarrel Sven EGFR-AF [place] 59 mL/min/1.73m2 Critically low >=60 [facility] [place] Comment on above: Performed By: #### C AIYANA ####[facility] [place] [address] [place], [place] [address]Kf. Alysha Machuca EGFR-NON AF [place] 48 mL/min/1.73m2 Critically low >=60 [facility] Comment on above: Performed By: #### C AIYANA ####[facility] [place] [address] [place], [place] [address]Xo. Alysha Machuca VC INJ SCL EDMOND SODA DISPENSER VEINSon 1 12-07-2021 VC INJ SCL EDMOND [place] DISPENSER VEINS Patient: MIKY FUENTES Exam Date: 10/06/2022 : 1950 Gender:F Ordering : DR WILLARD GAMBOA M.D. Admission #: [id number] Family : Order #: [id number] CLICK HERE TO VIEW EXAM RADIOLOGY REPORT [...] Gamboa MD on 10/06/2022 at 13:45 Normal [facility] VC CONSULT FOLLOWUPon 2021 VC CONSULT FOLLOWUP Patient: MIKY FUENTES Exam Date: 09/26/2022 : 1950 Gender:F Ordering : DR WILLARD GAMBOA M.D. Admission #: [id number] Family : Order #: [id number] CLICK HERE TO VIEW EXAM RADIOLOGY REPORT [...] Blanc M.D. on 09/26/2022 at 15:46 Normal [facility] VC EXT VENOUS RT LIMITEDon 1 11-26-2021 VC EXT VENOUS RT LIMITED Patient: MIKY FUENTES Exam Date: 09/26/2022 : 1950 Gender:F Ordering : DR WILLARD GAMBOA M.D. Admission #: [id number] Family : Order #: [id number] CLICK HERE TO VIEW EXAM RADIOLOGY REPORT [...] Blanc M.D. on 09/26/2022 at 15:44 Normal [facility] [place] VC INJ FOAM SCLERO W US MLTI on 09-20-2022 VC INJ FOAM SCLERO W US MLTI Patient: MIKY FUENTES Exam Date: 09/20/2022 : 1950 Gender:F Ordering : DR WILLARD GAMBOA M.D. Admission #: [id number] Family : Order #: [id number] CLICK HERE TO VIEW EXAM RADIOLOGY REPORT [...] Blanc M.D. on 09/20/2022 at 15:43 Normal [facility] VC CONSULT FOLLOWUPon 2021 VC CONSULT FOLLOWUP Patient: MIKY FUENTES Exam Date: 09/07/2022 : 1950 Gender:F Ordering : DR WILLARD GAMBOA M.D. Admission #: [id number] Family : Order #: [id number] CLICK HERE [...] Gamboa MD on 09/07/2022 at 13:04 Normal [facility] VC EXT VENOUS LT LIMITEDon 1 11-07-2021 VC EXT VENOUS LT LIMITED Patient: MIKY FUENTES Exam Date: 09/07/2022 : 1950 Gender:F Ordering : DR WILLARD GAMBOA M.D. Admission #: [id number] Family : Order #: [id number] CLICK HERE TO VIEW EXAM RADIOLOGY REPORT [...] MD on 09/07/2022 at 11:59 Normal [facility] [place] CBC AUTO DIFFon 09-01-2022 BASO # 0.0 103/ul Normal 0.0-0.1 [facility] [place] Comment on above: Performed By: #### C BC #### [facility] [place] [facility] [address] [place] [address] Dr. Alysha Machuca Basophils/100 WBC (Bld) 0.6 % Normal 0.2-2.0 [facility] [place] Comment on above: Performed By: #### C BC #### [facility] [place] [facility] [address] [place] [address] Dr. Alysha Machuca EO # 0.3 103/ul Normal 0.0-0.7 [facility] [place] Comment on above: Performed By: #### C BC #### [facility] [place] [facility] [address] [place] [address] Dr. Alysha Machuca Eosinophils/100 WBC (Bld) 4.3 % Normal 0.9-7.0 [facility] Comment on above: Performed By: #### C BC #### [facility] [facility] [address] [place] [address] Dr. Alysha Machuca Erythrocyte distribution width (RBC) [Ratio] 14.6 % Normal 11.0-15.0 [facility] Comment on above: Performed By: #### C BC #### [facility] [address] [place] [address] Dr. Alysha Machuca Hematocrit (Bld) [Volume fraction] 39.7 % Normal 36.0-48.0 [facility] Comment on above: Performed By: #### C BC #### [facility] [address] [place] [address] Dr. Alysha Machuca Hemoglobin (Bld) [Mass/Vol] 13.1 g/dL Normal 12.0-16.0 [facility] Comment on above: Performed By: #### C BC #### [facility] [address] [place] [address] Dr. Alysha Machuca IG # 0.01 10e3/ul Normal 0.00-0.03 [facility] Comment on above: Performed By: #### C BC #### [facility] [address] [place] [address] Dr. Alysha Machuca IG % 0.2 % Normal 0.0-0.5 [facility] Comment on above: Performed By: #### C BC #### [facility] [address] [place] [address] Dr. Alysha Machuca LYMPH # 1.9 103/ul Normal 1.2-3.8 [facility] Comment on above: Performed By: #### C BC #### [facility] [address] [place] [address] Dr. Alysha Machuca Lymphocytes/100 WBC (Bld) 29.5 % Normal 20.5-60.0 [facility] Comment on above: Performed By: #### C BC #### [facility] [address] [place] [address] Dr. Alysha Machuca MANUAL DIFF REQ NO Normal [facility] Comment on above: Performed By: #### C BC #### [facility] [address] [place] [address] Dr. Alysha Machuca MCH (RBC) [Entitic mass] 29.8 pg Normal 26.7-34.0 [facility] Comment on above: Performed By: #### C BC #### [facility] [address] [address] [address] Alysha Machuca MCHC (RBC) [Mass/Vol] 33.0 g/dL Normal 29.9-35.2 [facility] Comment on above: Performed By: #### C BC #### [facility] [address] [address] [address] Alysha Machuca MCV (RBC) [Entitic vol] 90.2 fL Normal 81.0-99.0 [facility] Comment on above: Performed By: #### C BC #### [facility] [address] [place] [address] Dr. Alysha Machuca MONO # 0.5 103/ul Normal 0.3-0.8 [facility] Comment on above: Performed By: #### C BC #### [facility] [address] [place] [address] Dr. Alysha Machuca Monocytes/100 WBC (Bld) 7.0 % Normal 1.7-12.0 [facility] Comment on above: Performed By: #### C BC #### [facility] [address] [place] [address] Dr. Alysha Machuca NEUT # 3.8 103/ul Normal 1.4-6.5 [facility] Comment on above: Performed By: #### C BC #### [facility] [address] [place] [address] Dr. Alysha Machuca Neutrophils/100 WBC (Bld) 58.4 % Normal 43.0-75.0 [facility] Comment on above: Performed By: #### C BC #### [facility] [address] [place] [address] Dr. Alysha Machuca Platelet mean volume (Bld) [Entitic vol] 9.5 fL Normal 9.5-13.5 [facility] Comment on above: Performed By: #### C BC #### [facility] [address] [place] [address] Dr. Alysha Machuca PLT 235 103/ul Normal 150-450 [facility] Comment on above: Performed By: #### C BC #### [facility] [address] [address] [address] Alysha Machuca RBC 4.40 106/ul Normal 4.20-5.40 [facility] Comment on above: Performed By: #### C BC #### [facility] [address] [address] [address] Alysha Machuca WBC 6.6 103/ul Normal 4.0-11.0 [facility] Comment on above: Performed By: #### C BC #### [facility] [address] [address] [address] Alysha Machuca PROF CHEM 8 (BAS METB)on Anion gap [Moles/Vol] 7.7 mmol/L Normal [facility] Comment on above: Performed By: #### B MP ####[facility] [address] [address]DrMaite Machuca Calcium [Mass/Vol] 9.8 mg/dL Normal 8.5-10.1 [facility] Comment on above: Performed By: #### B MP ####[facility] [address] [address]Dr. Alysha Machuca Chloride [Moles/Vol] 104 mmol/L Normal 98-107 [facility] Comment on above: Performed By: #### B MP ####[facility] [address] [address]DrMaite Machuca CO2 [Moles/Vol] 29.2 mmol/L Normal 21.0-32.0 [facility] Comment on above: Performed By: #### B MP ####[facility] [address] [address]Dr. Alysha Machuca Creatinine [Mass/Vol] 1.05 mg/dL Critically high 0.55-1.02 [facility] Comment on above: Performed By: #### B MP ####[facility] [address] [address]Dr. Alysha Machuca EGFR-AF [place]I >60 Normal >=60 [facility] Comment on above: Performed By: #### B MP ####[facility] [address] [address]Dr. Alysha Machuca EGFR-NON AF [place] 52 mL/min/1.73m2 Critically low >=60 [facility] Comment on above: Performed By: #### B MP ####[facility] [address] [address]Dr. Alysha Machuca Glucose [Mass/Vol] 107 mg/dL Critically high 74-106 [facility] Comment on above: Performed By: #### B MP ####[facility] [address] [address]Dr. Alysha Machuca Potassium [Moles/Vol] 3.9 mmol/L Normal 3.5-5.1 [facility] Comment on above: Performed By: #### B MP ####[facility] [address] [address]Dr. Alysha Machuca Sodium [Moles/Vol] 137 mmol/L Normal 136-145 [facility] Comment on above: Performed By: #### B MP ####[facility] [address] [address]Dr. Alysha Machuca Urea nitrogen [Mass/Vol] 16.0 mg/dL Normal 7.0-18.0 [facility] Comment on above: Performed By: #### B MP ####[facility] [address] [address]Dr. Alysha Machuca Urea nitrogen/Creatini ne [Mass ratio] 15.2 mg/mg Normal [facility] Comment on above: Performed By: #### B MP ####[facility] [address] [address]Dr. Alysha Machuca VC INJ FOAM SCLERO W US MLTI on 08-31-2022 VC INJ FOAM SCLERO W US MLTI Patient: MIKY FUENTES Exam Date: 08/31/2022 : 1950 Gender:F Ordering : DR WILLARD GAMBOA M.D. Admission #: [id number] Family : Order #: [id number] CLICK HERE TO VIEW EXAM RADIOLOGY REPORT [...] compressi (more content not included)... Normal [facility] VC CONSULT FOLLOWUPon 2021 VC CONSULT FOLLOWUP Patient: MIKY FUENTES Exam Date: 08/22/2022 : 1950 Gender:F Ordering : DR WILLARD GAMBOA M.D. Admission #: [id number] Family : Order #: [id number] CLICK HERE TO VIEW EXAM RADIOLOGY REPORT [...] Gamboa MD on 08/22/2022 at 10:45 Normal [facility] VC EXT VENOUS RT LIMITEDon 1 VC EXT VENOUS RT LIMITED Patient: MIKY FUENTES Exam Date: 08/22/2022 : 1950 Gender:F Ordering : DR WILLARD GAMBOA M.D. Admission #: [id number] Family : Order #: [id number] CLICK HERE TO VIEW EXAM RADIOLOGY REPORT [...] Willard Gamboa MD on 08/22/2022 at 10:21 [facility] VC INJ FOAM SCLERO W US MLTI on 08-17-2022 VC INJ FOAM SCLERO W US MLTI Patient: MIKY FUENTES Exam Date: 08/17/2022 : 1950 Gender:F Ordering : DR WILLARD GAMBOA M.D. Admission #: [id number] Family : Order #: [id number] CLICK HERE TO VIEW EXAM RADIOLOGY REPORT [...] take (more content not included)... Normal [facility] VC CONSULT FOLLOWUPon 2021 VC CONSULT FOLLOWUP Patient: MIKY FUENTES Exam Date: 08/07/2022 : 1950 Gender:F Ordering : DR WILLARD GAMBOA M.D. Admission #: [id number] Family : Order #: [id number] CLICK HERE TO VIEW EXAM RADIOLOGY REPORT [...] Gamboa MD on 08/07/2022 at 13:31 Normal [facility] VC EXT VENOUS LT LIMITEDon 1 VC EXT VENOUS LT LIMITED Patient: MIKY FUENTES Exam Date: 08/07/2022 : 1950 Gender:F Ordering : DR WILLARD GAMBOA M.D. Admission #: [id number] Family : Order #: [id number] CLICK HERE TO VIEW EXAM RADIOLOGY REPORT [...] Gamboa MD on 08/07/2022 at 12:01 Normal [facility] VC INJ FOAM SCLERO W US MLTI on 08-01-2022 VC INJ FOAM SCLERO W US MLTI Patient: MIKY FUENTES Exam Date: 08/01/2022 : 1950 Gender:F Ordering : DR WILLARD GAMBOA M.D. Admission #: [id number] Family : Order #: [id number] CLICK HERE TO VIEW EXAM RADIOLOGY REPORT [...] compr (more content not included)... Normal [facility] VC CONSULT FOLLOWUPon 2021 VC CONSULT FOLLOWUP Patient: MIKY FUENTES Exam Date: 07/17/2022 : 1950 Gender:F Ordering : DR WILLARD GAMBOA M.D. Admission #: [id number] Family : Order #: [id number] CLICK HERE TO VIEW EXAM RADIOLOGY REPORT [...] Kyle Blanc M.D. on 07/17/2022 at 12:18 Normal [facility] VC EXT VENOUS RT LIMITEDon 0 07-17-2022 VC EXT VENOUS RT LIMITED Patient: MIKY FUENTES Exam Date: 07/17/2022 : 1950 Gender:F Ordering : DR WILLARD GAMBOA M.D. Admission #: [id number] Family : Order #: [id number] CLICK HERE TO VIEW EXAM RADIOLOGY REPORT [...] : DR WILLARD GAMBOA M.D. Admission #: [id number] Family : Order #: [id number] CLICK HERE TO VIEW EXAM RADIOLOGY REPORT [...] da (more content not included)... Normal [facility] VC CONSULT FOLLOWUPon 2021 VC CONSULT FOLLOWUP Patient: MIKY FUENTES Exam Date: 06/30/2022 : 1950 Gender:F Ordering : DR WILLARD GAMBOA M.D. Admission #: [id number] Family : Order #: [id number] CLICK HERE TO VIEW EXAM RADIOLOGY REPORT [...] Gamboa MD on 06/30/2022 at 13:21 Normal [facility] VC EXT VENOUS LT LIMITEDon 0 06-30-2022 VC EXT VENOUS LT LIMITED Patient: MIKY FUENTES Exam Date: 06/30/2022 : 1950 Gender:F Ordering : DR WILLARD GAMBOA M.D. Admission #: [id number] Family : Order #: [id number] CLICK HERE TO VIEW EXAM RADIOLOGY REPORT [...] Gamboa MD on 06/30/2022 at 13:02 Normal [facility] ALBUMIN, RANDOM URINE W/CREA TININEon 06-26-2022 ALBUMIN, URINE 12.7 mg/dL Normal See Note: [facility] Comment on above: Result Comment: Refe rence Range: Reference Range Not established Performed By: #### 7 600, 496, 46086, 6517 #### [facility] [address] [place] [address] Chemical Tank Worker: Marek Subramanian MD ALBUMIN/CREATININ E RATIO, RANDOM [...] category. Performed By: #### 7 600, 496, 86761, 6517 #### [facility] [address] [place] [address] [employer] Worker: Marek Subramanian MD Creatinine (U) [Mass/Vol] 205 mg/dL Normal 20-275 [facility] Comment on above: Performed By: #### 7 600, 496, 51797, 6517 #### [facility] [address] [place] [address] [employer] Tank Worker: Marek Subramanian MD [facility] 06-26-2022 Albumin [Mass/Vol] 3.9 g/dL Normal 3.6-5.1 [facility] Comment on above: Performed By: #### 7 600, 496, 60797, 6517 #### [facility] [address] [place] [address] [employer] Worker: Marek Subramanian MD Albumin/Globulin [Mass ratio] 1.4 {ratio} Normal 1.0-2.5 [facility] Comment on above: Performed By: #### 7 600, 496, 22391, 6517 #### [facility] [address] [place] [address] [employer] Worker: Marek Subramanian MD ALP [Catalytic activity/Vol] 106 U/L Normal 37-153 [facility] Comment on above: Performed By: #### 7 600, 496, 09877, 6517 #### [facility] of [place] [address] [employer] Worker: Marek Subramanian MD ALT [Catalytic activity/Vol] 10 U/L Normal 6-29 [facility] Comment on above: Performed By: #### 7 600, 496, 33728, 6517 #### [facility] of [address], [address] [place] [address] Chemical Tank Worker: Marek Subramanian MD AST [Catalytic activity/Vol] 13 U/L Normal 10-35 [facility] Comment on above: Performed By: #### 7 600, 496, 25161, 6517 #### [facility] of [place] [address] [employer] Tank Worker: Marek Subramanian MD Bilirubin [Mass/Vol] 0.8 mg/dL Normal 0.2-1.2 [facility] Comment on above: Performed By: #### 7 600, 496, 72232, 6517 #### [facility] of [place] [address] [employer] Tank Worker: Marek Subramanian MD BUN/CREATININE RATIO NOT APPLICABLE Normal 6-22 [facility] Comment on above: Performed By: #### 7 600, 496, 58842, 6517 #### [facility] of [place] [address] [employer] Tank Worker: Marek Subramanian MD Calcium [Mass/Vol] 9.9 mg/dL Normal 8.6-10.4 [facility] Comment on above: Performed By: #### 7 600, 496, 16164, 6517 #### [facility] of [place] [address] Chemical Tank Worker: Marek Subramanian MD Chloride [Moles/Vol] 109 mmol/L Normal 98-110 [facility] Comment on above: Performed By: #### 7 600, 496, 80373, 6517 #### [facility] of [address] [place] [address] [place] [address] [employer] Tank Worker: Marek Subramanian MD CO2 [Moles/Vol] 24 mmol/L Normal 20-32 [facility] Comment on above: Performed By: #### 7 600, 496, 01435, 6517 #### [facility] [address], [address] [place] [address] Chemical Tank Worker: Marek Subramanian MD Creatinine [Mass/Vol] 0.88 mg/dL Normal 0.60-1.00 [facility] Comment on above: Performed By: #### 7 600, 496, 88132, 6517 #### [facility] [address], [address] [place] [address] Chemical Tank Worker: Marek Subramanian MD GFR/1.73 sq M.predicted among non-blacks MDRD (S/P/Bld) [Vol rate/Area] 70 mL/min/{1.73_m2} Normal > OR = 60 [facility] Comment on above: Result Comment: The eGFR is based on the CKD-EPI 2020 equation. To calculate the new eGFR from a previous Creatinine or Cystatin C result, go to https://www.kidney.org/professionals/ kdoqi/gfr%5Fcalculator Performed By: #### 7 600, 496, 90031, 6517 #### [facility] [address], [address] [place] [address] Chemical Tank Worker: Marek Subramanian MD Globulin (S) [Mass/Vol] 2.7 g/dL Normal 1.9-3.7 [facility] Comment on above: Performed By: #### 7 600, 496, 34604, 6517 #### [facility] [address], [address] [place] [address] Chemical Tank Worker: Marek Subramanian MD Glucose [Mass/Vol] 91 mg/dL Normal 65-99 [facility] Comment on above: Result Comment: Fasting reference interval Performed By: #### 7 600, 496, 40919, 6517 #### [facility] [address], [address] [place] [address] Chemical Tank Worker: Marek Subramanian MD Potassium [Moles/Vol] 4.0 mmol/L Normal 3.5-5.3 [facility] Comment on above: Performed By: #### 7 600, 496, 39165, 6517 #### [facility] [address], [address] [place] [address] Chemical Tank Worker: Marek Subramanian MD Protein [Mass/Vol] 6.6 g/dL Normal 6.1-8.1 [facility] Comment on above: Performed By: #### 7 600, 496, 00525, 6517 #### [facility] [place] [address] Chemical Tank Worker: Marek Subramanian MD Sodium [Moles/Vol] 143 mmol/L Normal 135-146 [facility] Comment on above: Performed By: #### 7 600, 496, 84091, 6517 #### [facility] [place] [address] Chemical Tank Worker: Marek Subramanian MD Urea nitrogen [Mass/Vol] 15 mg/dL Normal 7-25 [facility] Comment on above: Performed By: #### 7 600, 496, 90991, 6517 #### [facility] [place] [address] Chemical Tank Worker: Marek Subramanian MD HEMOGLOBIN A1con 06-26-2022 HEMOGLOBIN [...] diagnosis of diabetes in children. According to [place] Diabetes Association (ADA) guidelines, hemoglobin A1c <7.0% represents optimal control in non- diabetic patients. Different metrics may apply to specific patient populations. Standards of Medical Care in Diabetes(ADA). Performed By: #### 7 600, 496, 75025, 6517 #### [facility] [address], [address] [place] [address] Chemical Tank Worker: Marek Subramanian MD LIPID PANEL, [facility] [place] 05-30 Cholesterol [Mass/Vol] 171 mg/dL Normal <200 [facility] Comment on above: Order Comment: FASTI NG:YES FASTING: YES Performed By: #### 7 600, 496, 73852, 6517 #### [facility] [address], [address] [place] [address] Chemical Tank Worker: Marek Subramanian MD Cholesterol in HDL [Mass/Vol] 60 mg/dL Normal > OR = 50 [facility] Comment on above: Order Comment: FASTI NG:YES FASTING: YES Performed By: #### 7 600, 496, 29907, 6517 #### [facility] [address], [address] [place] [address] Chemical Tank Worker: Marek Subramanian MD Cholesterol in LDL [Mass/Vol] 92 mg/dL Normal [facility] Comment on above: Order Comment: FASTI NG:YES FASTING: YES Result Comment: Refe rence range: <100 Desirable range <100 mg/dL for primary prevention; <70 mg/dL for patients with CHD or diabetic patients with > or = 2 CHD risk factors. LDL-C is now calculated using the Nikita-Storm calculation, which is a validated novel method providing better accuracy than the Friedewald equation in the estimation of LDL-C. Nikita RUSSELL et al. LEWIS. 2013;310(19): 9459-8433 (http://education.[employer]/faq/HHR838) Performed By: #### 7 600, 496, 65129, 6517 #### [facility] [address], [address] [place] [address] Chemical Tank Worker: Marek Subramanian MD Cholesterol.total /Cholesterol in HDL [Mass ratio] 2.9 {ratio} Normal <5.0 [facility] Comment on above: Order Comment: FASTI NG:YES FASTING: YES Performed By: #### 7 600, 496, 81957, 6517 #### [facility] [address], [address] [place] [address] Chemical Tank Worker: Marek Subramanian MD NON HDL CHOLESTEROL 111 mg/dL (calc) Normal <130 [facility] Comment on above: Order Comment: FASTI NG:YES FASTING: YES Result Comment: For patients with diabetes plus 1 major ASCVD risk factor, treating to a non-HDL-C goal of <100 mg/dL (LDL-C of <70 mg/dL) is considered a therapeutic option. Performed By: #### 7 600, 496, 69878, 6517 #### [facility] [address], [address] [place] [address] Chemical Tank Worker: Marek Subramanian MD Triglyceride [Mass/Vol] 95 mg/dL Normal <150 [facility] Comment on above: Order Comment: FASTI NG:YES FASTING: YES Performed By: #### 7 600, 496, 98519, 6517 #### [facility] [address], [address] [place] [address] Chemical Tank Worker: Marek Subramanian MD VC INJ FOAM SCLERO W US MLTI on 06-26-2022 VC INJ FOAM SCLERO W US MLTI Patient: MIKY FUENTES Exam Date: 06/26/2022 : 1950 Gender:F Ordering : DR WILLARD GAMBOA M.D. Admission #: [id number] Family : Order #: [id number] CLICK HERE TO VIEW EXAM RADIOLOGY REPORT [...] vein medial distal lower leg/ankle. A large labor specialist vein was occluded with manual pressure until [...] varices, (more content not included)... Normal [facility] VC CONSULT FOLLOWUPon 2021 VC CONSULT FOLLOWUP Patient: MIKY FUENTES Exam Date: 06/19/2022 : 1950 Gender:F Ordering : DR WILLARD GAMBOA M.D. Admission #: [id number] Family : Order #: [id number] CLICK HERE TO VIEW EXAM RADIOLOGY REPORT [...] Blanc M.D. on 06/19/2022 at 12:14 Normal [facility] VC EXT VENOUS RT LIMITEDon 0 06-19-2022 VC EXT VENOUS RT LIMITED Patient: MIKY FUENTES Exam Date: 06/19/2022 : 1950 Gender:F Ordering : DR WILLARD GAMBOA M.D. Admission #: [id number] Family : Order #: [id number] CLICK HERE TO VIEW EXAM RADIOLOGY REPORT [...] Blanc M.D. on 06/19/2022 at 12:11 Normal [facility] VC INJ FOAM SCLERO W US MLTI on 06-13-2022 VC INJ FOAM SCLERO W US MLTI Patient: MIKY FUENTES Exam Date: 06/13/2022 : 1950 Gender:F Ordering : DR WILLARD GAMBOA M.D. Admission #: [id number] Family : Order #: [id number] CLICK HERE TO VIEW EXAM CORRECTION made [...] Kyle Blanc M.D. on 06/19/2022 at 12:17 [facility] VC CONSULT FOLLOWUPon 2021 VC CONSULT FOLLOWUP Patient: MIKY FUENTES Exam Date: 05/31/2022 : 1950 Gender:F Ordering : DR WILLARD GAMBOA M.D. Admission #: [id number] Family : Order #: [id number] CLICK HERE TO VIEW EXAM RADIOLOGY REPORT [...] Blanc M.D. on 05/31/2022 at 12:18 Normal [facility] VC EXT VENOUS LT LIMITEDon 0 05-31-2022 VC EXT VENOUS LT LIMITED Patient: MIKY FUENTES Exam Date: 05/31/2022 : 1950 Gender:F Ordering : DR WILLARD GAMBOA M.D. Admission #: [id number] Family : Order #: [id number] CLICK HERE TO VIEW EXAM RADIOLOGY REPORT [...] Blanc M.D. on 05/31/2022 at 12:13 Normal [facility] CT ABD/PELVIS WO CONon 05-26 CT [...] by: SANTHOSH NICK Date: 2022-05-26 16:43 Normal [facility] VC ENDOVENOUS ABL 1ST V LTon 05-23-2022 VC ENDOVENOUS ABL 1ST V LT Patient: MIKY FUENTES Exam Date: 05/23/2022 : 1950 Gender:F Ordering : DR WILLARD GAMBOA M.D. Admission #: [id number] Family : Order #: [id number] CLICK HERE TO VIEW EXAM RADIOLOGY REPORT PROCEDURE: VEIN CENTER ENDOVENOUS ABLATION FIRST VEIN LEFT COMPARISON: VC ENDOVENOUS ABL 1ST V LT, 02/08/2022. INDICATIONS: Pain co-occurrent and due to varicose veins of bilateral legs I83.813 OPERATIVE REPORT: The risks and benefits of the procedure had been previously discussed, and were rediscussed at length. Informed written consent was obtained by ms and Braxton Herrera assisted. Time out procedure [...] Kyle Blanc M.D. on 05/23/2022 at 12:34 [facility] US KIDNEYSon 05-05-2022 US KIDNEYS EXAMINATION: [...] by: WILLARD GAMBOA Date: 2022-05-05 13:29 Normal [facility] XR KUB 1 VIEWon 05-05-2022 XR [...] by: KYLE BLANC Date: 2022-05-05 15:54 Normal [facility] MAMM SCREEN 3D TANMAY CADon 05-04-2022 MAMM SCREEN 3D TANMAY CAD Patient: MIKY FUENTES Exam Date: 05/04/2022 : 1950 Gender:F Ordering : DR CONNOR JEAN BAPTISTE Admission #: [id number] Family : Order #: [id number] CLICK HERE TO VIEW EXAM RADIOLOGY REPORT [...] colon cancer at age 60. LOCATION: [facility] BREAST COMPOSITION: Scattered areas fibroglandular density. FINDINGS: [...] M.D. on 05/05/2022 at 14:21 Normal [facility] VC CONSULT FOLLOWUPon 2021 VC CONSULT FOLLOWUP Patient: MIKY FUENTES Exam Date: 05/04/2022 : 1950 Gender:F Ordering : DR WILLARD GAMBOA M.D. Admission #: [id number] Family : Order #: [id number] CLICK HERE TO VIEW EXAM RADIOLOGY REPORT [...] Kyle Blanc M.D. on 05/04/2022 at 11:43 Normal [facility] VC EXT VENOUS RT LIMITEDon 0 05-04-2022 VC EXT VENOUS RT LIMITED Patient: MIKY FUENTES Exam Date: 05/04/2022 : 1950 Gender:F Ordering : DR WILLARD GAMBOA M.D. Admission #: [id number] Family : Order #: [id number] CLICK HERE TO VIEW EXAM RADIOLOGY REPORT [...] Blanc M.D. on 05/04/2022 at 11:17 Normal [facility] CULTURE URINEon 05-03-2022 CULTURE URINE Culture Observations : LIGHT GROWTH OF MIXED GENITAL LUDWIN. NO POTENTIAL PATHOGENS SEEN. Normal [facility] Comment on above: Performed By: #### U RCX ####[facility] [address] [address]Dr. Alysha Machuca UA RANDOMon 05-03-2022 Bilirubin Ql (U) Negative Normal NEGATIVE [facility] Comment on above: Performed By: #### U A #### [facility] [address] [place] [address] Dr. Alysha Machuca Clarity (U) TURBID Abnormal CLEAR [facility] Comment on above: Performed By: #### U A #### [facility] [address] [place] [address] Dr. Alysha Machuca Color (U) RED Abnormal YELLOW [facility] Comment on above: Result Comment: Prev iously reported as: YELLOW On 05/03/2022 17:30 By CV2 Performed By: #### U A #### [facility] [address] [place] [address] Dr. Alysha Machuca Glucose Ql (U) Negative Normal NEGATIVE [facility] Comment on above: Performed By: #### U A #### [facility] [address] [place] [address] Dr. Alysha Machuca Hemoglobin Ql (U) LARGE Abnormal NEGATIVE [facility] Comment on above: Performed By: #### U A #### [facility] [address] [place] [address] Dr. Alysha Machuca Ketones Ql (U) Negative Normal NEGATIVE The [facility] Comment on above: Performed By: #### U A #### [facility] [address] [place] [address] Dr. Alysha Machuca LEUKOCYTES Negative Normal NEGATIVE [facility] Comment on above: Performed By: #### U A #### [facility] [address] [place] [address] Dr. Alysha Machuca Nitrite Ql (U) Negative Normal NEGATIVE [facility] Comment on above: Performed By: #### U A #### [facility] [address] [place] [address] Dr. Alysha Machuca pH (U) 6.0 [pH] Normal 5-9 [facility] Comment on above: Performed By: #### U A #### [facility] [address] [place] [address] Dr. Alysha Machuca SPEC GRAVITY 1.025 Normal 1.005-<=1.025 [facility] Comment on above: Performed By: #### U A #### [facility] [address] [place] [address] Dr. Alysha Machuca UA PROTEIN 100 mg/dl Abnormal NEGATIVE/ TRACE The [facility] Comment on above: Performed By: #### U A #### [facility] [address] [place] [address] Dr. Alysha Machuca Urobilinogen Qn (U) 0.2 {Luis'U}/dL Normal 0.2 - 1.0 [facility] Comment on above: Performed By: #### U A #### [facility] [address] [place] [address] Dr. Alysha Machuca VC ENDOVENOUS ABL 1ST V RTon 04-26-2022 VC ENDOVENOUS ABL 1ST V RT Patient: MIKY FUENTES Exam Date: 04/26/2022 : 1950 Gender:F Ordering : DR WILLARD GAMBOA M.D. Admission #: [id number] Family : Order #: [id number] CLICK HERE TO VIEW EXAM RADIOLOGY REPORT [...] written consent was obtained by and Braxton Herrera assisted. Time out procedure [...] Gamboa MD on 04/26/2022 at 10:58 Normal [facility] VC CONSULT FOLLOWUPon 2021 VC CONSULT FOLLOWUP Patient: MIKY FUENTES Exam Date: 04/13/2022 : 1950 Gender:F Ordering : DR WILLARD GAMBOA M.D. Admission #: [id number] Family : Order #: [id number] CLICK HERE TO VIEW EXAM RADIOLOGY REPORT [...] Blanc M.D. on 04/13/2022 at 10:59 Normal [facility] VC EXT VENOUS LT LIMITEDon 0 04-13-2022 VC EXT VENOUS LT LIMITED Patient: MIKY FUENTES Exam Date: 04/13/2022 : 1950 Gender:F Ordering : DR WILLARD GAMBOA M.D. Admission #: [id number] Family : Order #: [id number] CLICK HERE TO VIEW EXAM RADIOLOGY REPORT [...] Blanc M.D. on 04/13/2022 at 10:56 Normal [facility] Office Visit (Cardiology)on 03-22-2022 Follow-up visit Diagnoses/Problems [...] IO EKG Electrocardiogram- 12 Lead; Status:Complete; Done: [id number] SocHx: Never a smoker Tobacco Use Screening; Status:Complete; Done: [id number] Patient Instructions By signing my name below, I, Ольга Maldonado LPNibe, attest that this documentation has been prepared [...] failure. With guideline directed therapy in the jain of maintenance of sinus rhythm her symptoms [...] Oral TabletTake 1 tablet twice a day Adrian 3 [place] DIRECTED. Tylenol Arthritis Ext Relief [...] negative for complaint. Vitals Vital Signs Recorded: 22Mar2022 02:06PM Heart Rate47, Apical Imirtrak026, RUE, Sitting Uegbrbfda46, RUE, Sitting Height5 ft 5 in Saeyhk468 lb 6.4 oz BMI Kuauumvmpi74.17 kg/m2 BSA Calculated2.19 Tobacco Useb) No PHQ-2 [...] no murmurs (more content not included)... Normal [facility] Tobacco Screening.on 022 Adult depression screening assessment No [facility] 250 DO Work Phone: Fall risk assessment a) No falls within the last year [facility] 250 DO Work Phone: Tobacco use status [facility] b) No [facility] 250 DO Work Phone: VC ENDOVENOUS ABL PERFORATIN G LTon 03-22-2022 VC ENDOVENOUS ABL PERFORATING LT Patient: MIKY FUENTES Exam Date: 03/22/2022 : 1950 Gender:F Ordering : DR WILLARD GAMBOA M.D. Admission #: [id number] Family : Order #: [id number] CLICK HERE TO VIEW EXAM RADIOLOGY REPORT PROCEDURE: VEIN CENTER ENDOVENOUS ABLATION VEIN LEFT LEG COMPARISON: None. INDICATIONS: Pain co-occurrent and due to varicose veins of bilateral legs I83.813 OPERATIVE REPORT: Diagnosis: Superficial venous reflux, incompetent perforating veins Procedure: Endovenous laser ablation of the left labor specialist(s) Procedure: The patient was positioned supine on [...] MD (more content not included)... Normal [facility] KAL SCREEN, IFA, W/REFL TITE R/PATTERN (REFL)on [...] indicated. For additional information, please refer to http://education.New [employer]/faq/FKI418 (This link is being provided for informational/ educational purposes only.) Performed By: #### 8 09, 8268, 4420, 62688, %[id number] #### [facility] [address], [address] [place], [place] [id number] Chemical Tank Worker: Marek Subramanian MD ANTINUCLEAR ANTIBODIES TITER AND PATTERNon 10-01-2021 KAL PATTERN Nuclear, Centromere Abnormal [facility] Comment on above: Result Comment: Cent romere pattern is associated with limited cutaneous systemic sclerosis, CREST (Calcinosis, Raynaud's, Esophageal dysmotility, Sclerodactyly, Telangiectasia), primary biliary cholangitis (PBC), and other autoimmune diseases. AC-3: Centromere International Consensus on KAL Patterns (https://doi.org/10.1515/olih-9896-0907) Performed By: #### 8 09, 8268, 4420, 22484, %[id number] #### [facility] [address], [address] [place] [address] Chemical Tank Worker: Marek Subramanian MD KAL PATTERN Nuclear, Homogeneous Abnormal [facility] Comment on above: Result Comment: Homo geneous pattern is associated with systemic lupus erythematosus (SLE), drug-induced lupus and juvenile idiopathic arthritis. AC-1: Homogeneous International Consensus on KAL Patterns (https://doi.org/10.1515/tgah-7383-2511) Performed By: #### 8 09, 8268, 4420, 21988, %[id number] #### [facility] [address], [address] [place] [id number] Chemical Tank Worker: Marek Subramanian MD KAL TITER > OR = 1:1280 Abnormal [facility] Comment on above: Result Comment: Refe rence Range <1:40 Negative 1:40-1:80 Low Antibody Level >1:80 Elevated Antibody Level Performed By: #### 8 09, 8268, 4420, 91001, %[id number] #### [facility] [address], [address] [place] [address] Chemical Tank Worker: Marek Subramanian MD KAL TITER 1:80 High [facility] Comment on above: Result Comment: A lo w level KAL titer may be present in pre- clinical autoimmune diseases and normal individuals. Reference Range <1:40 Negative 1:40-1:80 Low Antibody Level >1:80 Elevated Antibody Level Performed By: #### 8 09, 8268, 4420, 04850, %[id number] #### [facility] [place] [address] Chemical Tank Worker: Marek Subramanian MD C-REACTIVE PROTEINon 021 CRP [Mass/Vol] 13.4 mg/L High <8.0 [facility] Comment on above: Performed By: #### 8 09, 8268, 4420, 50199, %[id number] #### [facility] [place] [address] Chemical Tank Worker: Mraek Subramanian MD RHEUMATOID ARTHRITIS DIAGNOS TIC PANEL 1on 10-01-2021 CYCLIC CITRULLINATED PEPTIDE (CCP) AB (IGG) <16 Normal [facility] Comment on above: Result Comment: Refe rence Range Negative: <20 Weak Positive: 20-39 Moderate Positive: 40-59 Strong Positive: >59 Performed By: #### 8 09, 8268, 4420, 16809, %27976 #### [facility] [place] [address] Chemical Tank Worker: Marek Subramanian MD INTERPRETATION Normal [facility] Comment on above: Result Comment: These serologic results may be found in 10-20% of patients with polyarthritis that is clinically and radiologically indistinguishable from RA. Performed By: #### 8 09, 8268, 4420, 55455, %[id number] #### [facility] [place] [address] Chemical Tank Worker: Marek Subramanian MD RHEUMATOID FACTOR <14 Normal <14 [facility] Comment on above: Performed By: #### 8 09, 8268, 4420, 13248, %[id number] #### [facility] [address] [phone] Chemical Tank Worker: Marek Subramanian MD SED RATE BY MODIFIED WESTERG RENon 10-01-2021 SED RATE BY MODIFIED WESTERGREN 51 mm/h High < OR = 30 [facility] Comment on above: Performed By: #### 8 09, 8268, 4420, 29854, %76578 #### [facility] [address], [address] [place] [address] Chemical Tank Worker: Marek Subramanian MD Tobacco Screening.on 021 Fall risk assessment a) No falls within the last year [facility] 600 DO Work Phone: Tobacco use status CP b) No [facility] 600 DO Work Phone: Vital Signs Date Time Vital Sign Value Performing Clinician Facility 03-06-2024 09:31-0400 Body height 165.1 cm Nick Perez MD Work Phone: [facility] 03-06-2024 09:31-0400 Body mass index (BMI) [Ratio] 36.78 kg/m2 Nick Perez MD Work Phone: [facility] 03-06-2024 09:31-0400 Body weight 100.25 kg Nick Perez MD Work Phone: [facility] 03-06-2024 09:31-0400 Diastolic blood pressure 58 mm[Hg] Nick Perez MD Work Phone: [facility] 03-06-2024 09:31-0400 Heart rate 44 /min Nick Perez MD Work Phone: [facility] 03-06-2024 09:31-0400 Systolic blood pressure 104 mm[Hg] Nick Perez MD Work Phone: [facility] 12-06-2022 13:27-0500 Body height 165.1 cm Connor Jean Baptiste Work Phone: [facility] 250 DO Work Phone: 12-06-2022 13:27-0500 Body mass index (BMI) [Ratio] 36.94 kg/m2 Connor Marinelli Furlong Work Phone: [facility] 250 DO Work Phone: 12-06-2022 13:27-0500 Body surface area Derived from formula 2.07 m2 Connor Marinelli Furlong Work Phone: [facility] 250 DO Work Phone: 12-06-2022 13:27-0500 Body weight 100.7 kg Connor Marinelli Furlong Work Phone: [facility] 250 DO Work Phone: 12-06-2022 13:27-0500 Diastolic blood pressure 84 mm[Hg] Connor Marinelli Furlong Work Phone: [facility] 250 DO Work Phone: 12-06-2022 13:27-0500 Heart rate 43 /min Connor Marinelli Furlong Work Phone: [facility] 250 DO Work Phone: 12-06-2022 13:27-0500 Systolic blood pressure 130 mm[Hg] Connor Marinelli Furlong Work Phone: [facility] 250 DO Work Phone: 06-30-2022 11:43-0400 Blood Pressure Location Yehuda AVITIA [facility] 06-30-2022 11:43-0400 Diastolic blood pressure 69 mm[Hg] Yehuda AVITIA [facility] 06-30-2022 11:43-0400 Heart rate 60 /min Yehuda AVITIA [facility] 06-30-2022 11:43-0400 Respiratory rate 16 /min Yehuda AVITIA [facility] 06-30-2022 11:43-0400 Systolic blood pressure 129 mm[Hg] Yehuda AVITIA [facility] 03-22-2022 14:06-0400 Body height 165.1 cm Connor G Furlong Work Phone: [facility] 250 DO Work Phone: 03-22-2022 14:06-0400 Body mass index (BMI) [Ratio] 42.17 kg/m2 Connor G Furlong Work Phone: [facility] 250 DO Work Phone: 03-22-2022 14:06-0400 Body surface area Derived from formula 2.19 m2 Connor G Furlong Work Phone: [facility] 250 DO Work Phone: 03-22-2022 14:06-0400 Body weight 114.94 kg Connor G Furlong Work Phone: [facility] 250 DO Work Phone: 03-22-2022 14:06-0400 Diastolic blood pressure 70 mm[Hg] Connor G Furlong Work Phone: [facility] 250 DO Work Phone: 03-22-2022 14:06-0400 Heart rate 47 /min Connor G Furlong Work Phone: [facility] 250 DO Work Phone: 03-22-2022 14:06-0400 Systolic blood pressure 114 mm[Hg] Connor G Furlong Work Phone: [facility] 250 DO Work Phone: 08-16-2021 14:38-0400 Body height 165.1 cm Connor Marinelli Furlong Work Phone: [facility] 600 DO Work Phone: 08-16-2021 14:38-0400 Body mass index (BMI) [Ratio] 42.53 kg/m2 Connor G Furlong Work Phone: [facility] 600 DO Work Phone: 08-16-2021 14:38-0400 Body surface area Derived from formula 2.2 m2 Connor G Furlong Work Phone: [facility] 600 DO Work Phone: 08-16-2021 14:38-0400 Body weight 115.94 kg Connor G Furlong Work Phone: [facility] 600 DO Work Phone: 08-16-2021 14:38-0400 Diastolic blood pressure 74 mm[Hg] Connor G Furlong Work Phone: [facility] 600 DO Work Phone: 08-16-2021 14:38-0400 Heart rate 44 /min Connor G Furlong Work Phone: [facility] 600 DO Work Phone: 08-16-2021 14:38-0400 Systolic blood pressure 134 mm[Hg] Connor G Furlong Work Phone: [facility] 600 DO Work Phone: Encounters Encounter Date Encounter Type Care Provider Facility Start: 08-14-2024 ambulatory Yehuda Vicente ty:CD:[id number] Start: 07-29-2024 ambulatory Radha Looney y:LEXI Mccartney Start: 07-15-2024 End: 07-15-2024 ambulatory Radha X Orzech [facility] Start: 07-01-2024 End: 07-01-2024 ambulatory Radha X Orzech Facility:[facility] Start: 07-01-2024 End: 07-01-2024 Patient encounter procedure Radha X Orzech [facility] Start: 06-10-2024 End: 06-10-2024 ambulatory Radha X Orzech Facility:[facility] Start: 06-10-2024 End: 06-10-2024 Patient encounter procedure Radha X Orzech [facility] Start: 05-20-2024 End: 05-20-2024 ambulatory Radha X Orzech Facility:[facility] Start: 05-20-2024 End: 05-20-2024 Patient encounter procedure Radha X Orzech [facility] Start: 05-16-2024 End: 05-16-2024 ambulatory Yehuda AVITIA Facility:[facility] Start: 05-16-2024 End: 05-16-2024 Patient encounter procedure Yehuda AVITIA [facility] Start: 03-26-2024 End: 03-26-2024 ambulatory LESVIA KEITA Not Available Start: 03-06-2024 End: 03-06-2024 ambulatory NICK PEREZ [facility]ulatory Start: 03-06-2024 End: 03-06-2024 Office outpatient visit 25 minutes Nick Perez MD Work Phone: [facility] Comment on above: Mixed hyperlipidemia (Primary Dx); Paroxysmal atrial fibrillation (Multi); Non-ischemic cardiomyopathy (Multi); Never smoked tobacco; BMI 36.0-36.9,adult; Hyperlipidemia, unspecified hyperlipidemia type Start: 02-18-2024 End: 02-19-2024 ambulatory [facility] Start: 02-18-2024 End: 02-18-2024 ambulatory [facility] Start: 12-24-2023 End: 12-24-2023 ambulatory [facility] Start: 12-13-2023 End: 12-13-2023 ambulatory Yehuda AVITIA Facility:[facility] Start: 12-13-2023 End: 12-13-2023 Patient encounter procedure Yehuda AVITIA [facility] Start: 10-26-2023 End: 10-26-2023 ambulatory Yehuda AVITIA Facility:[facility] Start: 10-09-2023 End: 10-09-2023 ambulatory DULCE ALCAZAR Facility:[facility] Start: 03-13-[address] WILLARD GAMBOA Facilit y:[facility] Start: 03-05-2023 End: 03-06-[address] YEHUDA AVITIA . Facility:[facility] Start: 02-20-2023 End: 02-21-2023 ambulatory DOCTOR ORTIZ Facility:[facility] Start: 12-06-2022 ambulatory [facility] Facility: Start: 12-06-2022 Office outpatient vi sit 25 minutes Connor Joseph Jean Baptiste Work Phone: [facility] 250 DO Work Phone: Start: 11-20-2022 Rx Renewal Connor Joseph Chaitanya Work Phone: [facility] 250 DO Work Phone: Start: 11-03-2022 End: [...] preprocedural laboratory examination DR LESVIA COWAN [facility] Start: 09-05-2022 End: 09-05-2022 Patient encounter procedure Yehuda AVITIA [facility] Start: 09-01-2022 End: 09-02-[address] CONNOR JEAN BAPTISTE Facility:[facility] Start: 09-01-2022 End: 09-02-2022 Encounter for preprocedural laboratory examination DR CONNOR JEAN BAPTISTE Facility:[facility] Start: 08-31-2022 End: 09-01-[address] CONNOR JEAN BAPTISTE Facility:[facility] Start: 08-22-2022 Rx Renewal Connor nj Work Phone: [facility] 250 DO Work Phone: Start: 08-22-2022 End: 08-23-[address] CONNOR JEAN BAPTISTE Facility:[facility] Start: 08-17-2022 End: 08-18-[address] CONNOR JEAN BAPTISTE Facility:[facility] Start: 08-11-2022 End: 08-11-2022 Lab Drop off DORA ALCAZAR [facility] Start: 08-11-2022 End: 08-11-2022 Patient encounter procedure DORA ALCAZAR [facility] Start: 08-07-2022 End: 08-08-[address] WILLARD GAMBOA Facility:[facility] Start: 08-01-2022 End: 08-02-[address] WILLARD GAMBOA Facility:[facility] Start: 07-17-2022 End: 07-18-[address] WILLARD GAMBOA Facility:[facility] Start: 07-12-2022 End: 07-13-[address] WILLARD GAMBOA Facility:[facility] Start: 06-30-2022 End: 07-01-[address] WILLARD GAMBOA Facility:[facility] Start: 06-30-2022 End: 06-30-2022 Patient encounter procedure Yehuda Haddad [place] [facility] Start: 06-26-2022 End: 06-27-[address] [...] DR WILLARD GAMBOA Facility:[facility] Start: 03-22-2022 ambulatory Cononr Jean Baptiste Facility:[id number] Start: 03-22-2022 Office outpatient vi sit 25 minutes Connor Jean Baptiste Work Phone: [facility] 250 DO Work Phone: Start: 03-22-2022 End: 03-23-[address] WILLARD GAMBOA Facility:[facility] Start: 01-31-2022 ambulatory Connor Jean Baptiste Facility:[id number] Start: 12-07-2021 Rx Renewal Connor Tavares ng Work Phone: [facility] 250 DO Work Phone: Start: 08-16-2021 Office outpatient vi sit 15 minutes Connor Jean Baptiste Work Phone: [facility] 600 DO Work Phone: Imaging result normal Connor castellon Work Phone: [facility] 250 DO Work Phone: Patient encounter status Connor Jean Baptiste Work Phone: [facility] [employer] 600 DO Work Phone: Procedures Date Procedure [...] Yehuda ANDRADE TERS Start: 07-08-2020 Cystoscopy Yehuda LUPE TERS Start: 07-17-2019 Extracorporeal shock wave lithotripsy of the bile duct Yehuda AVITIA Comment on above: Right Start: 10-29-2015 Gastric sleeve Yehuda AVITIA Arthroplasty of knee Connor Jean Baptiste [...] Treatment Date Care Activity Detail Author Start: 02-20-2033 DTaP/Tdap/Td Vaccine s (3 - Td or Tdap) DTaP/Tdap/Td Vaccines (3 - Td or Tdap) [facility] Start: 08-28-2024 End: 08-28-2024 Patient encounter procedure 08/28/2024 10:40 AM EDT Office Visit [address] [place] [address] Carmen Chi MD [address] [facility] [address] [place] [address] [facility] Start: 07-26-2024 Screening for malign ant neoplasm of breast Mammogram [facility] Start: 03-01-2024 COVID-19 Vaccine ( season) COVID-19 Vaccine ( season) [facility] Start: 01-29-2024 FUV, Provider: Nick Perez, Status: Pen, Time: 11:20 AM FUV, Provider: Nick Perez, Status: Pen, Time: 11:20 AM [facility] 250 DO Work Phone: Start: 12-06-2022 FUV, Provider: Nick Perez, Status: Pen, Time: 1:10 PM FUV, Provider: Nick Perez, Status: Pen, Time: 1:10 PM [facility] 250 DO Work Phone: Start: 01-31-2022 FUV, Provider: Nick Sarkar, Status: Pen, Time: 2:20 PM FUV, Provider: Nick Sarkar, Status: Pen, Time: 2:20 PM [facility] [employer] 250 DO Work Phone: Start: 2010 RSV patient s and/or patients aged 60+ years (1 - 1-dose 60+ series) RSV patients and/or patients aged 60+ years (1 - 1-dose 60+ series) [facility] Start: 1968 Diabetes mellitus screening Diabetes Screening [facility] Start: 1968 [facility]atitis C [facility]: [facility] Lipid panel Lipid Panel [facility] Start: 1950 Medicare Annual Well ness Visit Medicare Annual Wellness Visit (AWV) [facility] Start: 1950 Screening for malign ant neoplasm of colon [facility] Start: 1950 Screening for osteoporosis Bone Density Scan [facility] Start: 1950 Thyroid stimulating hormone measurement TSH Level [facility] Immunizations Immunization Date Immunization Notes Care Provider Karlee rubio 02-20-2023 tetanus toxoid, redu mariano diphtheria toxoid, and acellular pertussis vaccine, adsorbed Yehuda AVITIA [facility] 10-15-2022 Fluzone High-Dose Quadrivalent 0.7 ML Intramuscular Suspension Prefilled Syringe Connor Jean Baptiste Work Phone: [facility] 250 DO Work Phone: 10-15-2022 influenza virus vacc ine, unspecified formulation Yehuda AVITIA [facility] 10-15-2022 influenza, high dose seasonal, preservative-free Nick Perez MD Work Phone: [facility] Work Phone: 04-29-2022 Comirnaty 30 MCG/0.3 ML Intramuscular Suspension Connor Lewisclem Work Phone: [facility] 250 DO Work Phone: 04-29-2022 SARS-CoV-2 mRNA (uoeftvxkkbf-seqy-ubsjlh e) vaccine Yehuda AVITIA [facility] 09-08-2021 influenza virus vacc ine, unspecified formulation Yehuda AVITIA [facility] 08-29-2021 Fluzone High-Dose Quadrivalent 0.7 ML Intramuscular Suspension Prefilled Syringe Connor Lewisclem Work Phone: [place] [address] DO Work Phone: 08-29-2021 influenza virus vacc ine, unspecified formulation Yehuda AVITIA [facility] 08-29-2021 influenza, high dose seasonal, preservative-free Nick Perez MD Work Phone: [facility] Work Phone: 08-29-2021 Pfizer-BioNTech COVI D-19 Vacc 30 MCG/0.3ML Intramuscular Suspension Connor Jean Baptiste Work Phone: [facility] 12-23-2020 Pfizer-BioNTech COVI D-19 Vacc 30 MCG/0.3ML Intramuscular Suspension Connor G Furlong Work Phone: [facility] 12-01-2020 Pfizer-BioNTZefanclub COVI D-19 Vacc 30 MCG/0.3ML Intramuscular Suspension Connor G Furlong Work Phone: [facility] 09-13-2020 pneumococcal polysaccharide vaccine, 23 valent Connor G Furlong Work Phone: [facility] 09-03-2020 influenza virus vacc ine, unspecified formulation Yehuda Collectric [facility] 09-03-2020 influenza, high dose seasonal, preservative-free Nick Perez MD Work Phone: [facility] Work Phone: 09-03-2020 influenza, injectabl e, quadrivalent, contains preservative Connor G Furlong Work Phone: [facility] 600 DO Work Phone: 08-29-2020 influenza virus vacc ine, unspecified formulation Rapid RMS [facility] 08-29-2020 influenza, high dose seasonal, preservative-free Connor G Furlong Work Phone: [facility] 250 DO Work Phone: 08-29-2020 pneumococcal polysaccharide vaccine, 23 valent Connor G Furlong Work Phone: [facility] 08-11-2020 influenza virus vacc ine, unspecified formulation Yehuda Collectric [facility] 08-11-2020 influenza, seasonal, injectable Connor G Furlong Work Phone: [facility] 600 DO Work Phone: 07-29-2020 influenza virus vacc ine, unspecified formulation Yehuda AVITIA [facility] 07-29-2020 influenza, seasonal, injectable Connor G Furlong Work Phone: [facility] 250 DO Work Phone: 09-02-2019 influenza virus vacc ine, unspecified formulation Yehuda AVITIA [facility] 09-02-2019 influenza, high dose seasonal, preservative-free Connor G Furlong Work Phone: [facility] 600 DO Work Phone: 08-29-2019 influenza virus vacc ine, unspecified formulation Connor G Furlong Work Phone: [facility] 08-11-2019 influenza virus vacc ine, unspecified formulation Yehuda AVITIA [facility] 06-17-2019 zoster vaccine recombinant Connor G Furlong Work Phone: [facility] 05-29-2019 zoster vaccine recombinant Connor G Furlong Work Phone: [facility] 04-15-2019 zoster vaccine recombinant Connor G Furlong Work Phone: [facility] 03-29-2019 zoster vaccine recombinant Connor G Furlong Work Phone: [facility] 08-29-2018 influenza virus vacc ine, unspecified formulation Connor G Furlong Work Phone: [facility] 250 DO Work Phone: 09-27-2017 influenza virus vacc ine, unspecified formulation Yehuda AVITIA [facility] 09-27-2017 Influenza, injectabl e, Madin [place] Canine Kidney, preservative free, quadrivalent Connor G Furlong Work Phone: [facility] 600 DO Work Phone: 09-26-2017 influenza virus vacc ine, unspecified formulation Connor G Furlong Work Phone: [facility] 250 DO Work Phone: 10-19-2016 influenza virus vacc ine, unspecified formulation Rapid RMS [facility] 10-19-2016 seasonal influenza, intradermal, preservative free Connor G Furlong Work Phone: [facility] 600 DO Work Phone: 10-06-2016 influenza virus vacc ine, unspecified formulation Rapid RMS [facility] 10-06-2016 influenza, seasonal, injectable, preservative free Connor G Furlong Work Phone: [facility] 600 DO Work Phone: 04-10-2016 pneumococcal conjuga te vaccine, 13 valent Connor G Furlong Work Phone: [facility] 04-06-2016 pneumococcal conjuga te vaccine, 13 valent Yehuda AVITIA [facility] 08-07-2014 influenza virus vacc ine, unspecified formulation Connor G Furlong Work Phone: [facility] 250 DO Work Phone: 08-07-2014 influenza, unspecifi ed formulation Yehuda Collectric [facility] 07-29-2014 influenza virus vacc ine, unspecified formulation Connor Marinelli Furlong Work Phone: [facility] 250 DO Work Phone: 07-29-2014 pneumococcal polysaccharide vaccine, 23 valent Connor Marinelli Furlong Work Phone: [facility] 10-02-2013 pneumococcal conjuga te vaccine, 13 valent Connor Marinelli Furlong Work Phone: [facility] 02-14-2013 zoster vaccine, live Connor Marinelli Furlong Work Phone: [facility] 10-29-2012 influenza virus vacc ine, unspecified formulation Connor Marinelli Furlong Work Phone: [facility] 250 DO Work Phone: 10-29-2012 pneumococcal polysaccharide vaccine, 23 valent Connor Marinelli Furlong Work Phone: [facility] 250 DO Work Phone: 10-29-2010 pneumococcal polysaccharide vaccine, 23 valent Nick Perez MD Work Phone: [facility] Work Phone: 02-21-2010 pneumococcal polysaccharide vaccine, 23 valent Connor Marinelli Furlong Work Phone: [facility] 02-21-2010 tetanus toxoid, redu mariano diphtheria toxoid, and acellular pertussis vaccine, adsorbed Connor Marinelli Furlong Work Phone: [facility] 12-20-2009 novel influenza-H1N1 -09, preservative-free, injectable Connor Marinelli Furlong Work Phone: [facility] 600 DO Work Phone: 11-29-2009 novel influenza-H1N1 -09, preservative-free, injectable Connor TavaresTravark Work Phone: [facility] 250 DO Work Phone: 09-06-1999 TD(adult) unspecifie d formulation; Translations: [Td(adult) unspecified formulation] Connor TavaresTravark Work Phone: [facility] influenza virus vacc ine, unspecified formulation Connor LewisGlamBox Work Phone: [facility] 250 DO Work Phone: Comment on above: 2010Jul 2012 pneumococcal polysaccharide vaccine, 23 valent Connor LewisGlamBox [facility] Comment on above: 2010 Payers Date Payer Category Payer Medicare MEDICARE MEDICAR E PART A AND B [id number] 2015-Present [address] [place] [address] [id number] 2015 Unknown 2015 Unknown [id number] 1959 Medicare [id number] 1959 Unknown [id number] 1950 Unknown [id number] 2.16.840.1.029842.3.579.2.356 1950 Unknown [id number] 2.16.840.1.748006.3.579.2.356 1950 Unknown [id number] 2.16.840.1.964748.3.579.2.356 1950 Unknown [id number] 2.16.840.1.676784.3.579.2.593 1950 Unknown [id number] 2.16.840.1.375482.3.579.2.593 1950 Unknown [id number] 2.16.840.1.016991.3.579.2.593 1950 Unknown [id number] 2.16.840.1.351875.3.579.2.593 1950 Unknown [id number] 2.16.840.1.937547.3.579.2.593 1950 Unknown [id number] 2.16.840.1.936006.3.579.2.593 1950 Unknown [id number] 2.16.840.1.375550.3.579.2.593 1950 Unknown [id number] 2.16.840.1.975406.3.579.2.593 1950 Unknown [id number] 2.16.840.1.076179.3.579.2.593 1950 Unknown [id number] 2.16840.1.502201.3.579.2.593 1950 Unknown [id number] 2.16.840.1.054548.3.579.2.593 1950 Unknown [id number] 2.16.840.1.511409.3.579.2.593 1950 Unknown [id number] 2.16.840.1.083735.3.579.2.593 1950 Unknown [id number] 2.16.840.1.042947.3.579.2.593 1950 Unknown [id number] 2.16.840.1.019370.3.579.2.593 1950 Unknown [id number] 2.16.840.1.747438.3.579.2.593 1950 Unknown [id number] 2.16.840.1.446305.3.579.2.593 1950 Unknown [id number] 2.16.840.1.101666.3.579.2.593 1950 Unknown [id number] 2.16.840.1.551910.3.579.2.593 1950 Unknown [id number] 2.16.840.1.670154.3.579.2.593 1950 Unknown [id number] 2.16.840.1.261869.3.579.2.593 1950 Unknown [id number] 2.16.840.1.869587.3.579.2.593 1950 Unknown [id number] 2.16.840.1.687579.3.579.2.593 1950 Unknown [id number] 2.16.840.1.343845.3.579.2.593 1950 Unknown [id number] 2.16.840.1.144960.3.579.2.593 1950 Unknown [id number] 2.16.840.1.070785.3.579.2.593 1950 Unknown [id number] 2.16.840.1.711006.3.579.2.593 1950 Unknown [id number] 2.16.840.1.694819.3.579.2.593 1950 Unknown [id number] 2.16.840.1.916271.3.579.2.593 1950 Unknown [id number] 2.16.840.1.699625.3.579.2.593 1950 Unknown [id number] 2.16.840.1.134910.3.579.2.593 1950 Unknown [id number] 2.16.840.1.903982.3.579.2.593 1950 Unknown [id number] 2.16.840.1.930403.3.579.2.593 1950 Unknown [id number] 2.16.840.1.895984.3.579.2.593 1950 Unknown [id number] 2.16.840.1.672302.3.579.2.593 1950 Unknown [id number] 2.16.840.1.009268.3.579.2.1286 1950 Unknown [id number] 2.16.840.1.078557.3.579.2.1286 1950 Unknown [id number] 2.16.840.1.242764.3.579.2.1244 1950 Unknown [id number] 2.16.840.1.937095.3.579.2.1244 1950 Unknown [id number] 2.16.840.1.097988.3.579.2.9 1950 Unknown [id number] 2.16.840.1.834183.3.579.2.1259 1950 Unknown [id number] 2.16.840.1.585429.3.579.2. 1950 Unknown [id number] 2.16.840.1.792858.3.579.2. 1950 Unknown [id number] 2.16.840.1.055362.3.579.2. 1950 Unknown [id number] 2.16.840.1.320228.3.579.2.72 1950 Unknown [id number] 2.16.840.1.860262.3.579.2.72 1950 Unknown [id number] 2.16.840.1.076276.3.579.2.72 1950 Unknown [id number] 2.16.840.1.304189.3.579.2. 1950 Unknown [id number] 2.16.840.1.840835.3.579.2.727 1950 Unknown [id number] 2.16.840.1.310930.3.579.2. 1950 Unknown [id number] 2.16.840.1.350384.3.579.2.727 Social History Date Type Detail Facility Start: 03-06-2024 Never a smoker Never a smoker [facility] 600 DO Work Phone: Start: 12-28-2021 End: 10-26-2023 Tobacco smoking status Never smoked tobacco (finding) [facility] Tobacco smoking status Never [facility] Start: 03-06-2024 Sex Assigned At Female [facility] Start: 08-17-2023 Tobacco use and exposure Smokeless tobacco non-user [facility] Work Phone: Start: 03-06-2024 Alcoholic beverage intake Lifetime non-drinker (finding) [facility] Work Phone: Start: 1950 Sex assigned at Not on file U [facility] Work Phone: Start: 02-25-2024 End: 03-06-2024 Exposure to SARS-CoV-2 (event) Not sure [facility] Functional Status Date Assessment Result Facility 08-24-2022 Functional Status N/A [facility] 06-30-2022 Functional Status N/A [facility] Clinical Notes 06-30-2022 to 07-15-2024 Nick Perez MD - 03/06/2024 9:30 AM EDTPatient Instructions Note Date & Type Note Facility 07-15-2024 Note Patient Education Urology Kidney Stones Kidney stones [...] pee. The stone usually leaves your body through your pee. A doctor may need to take out the stone. What are the causes? Kidney stones may be caused by: ? Too much calcium in the body. This may be caused by too much parathyroid hormone in the blood. ? Uric acid crystals in the bladder. The body makes uric acid when you eat certain foods. ? Narrowing of one or both of the ureters. ? A kidney blockage that you were born with. ? Past surgery on the kidney or the ureters. What increases the risk? You are more likely to develop this condition if: ? You have had a kidney stone in the past. ? Other people in your family have had kidney stones. ? You do not drink enough water. ? You eat a diet that is high in protein, salt (sodium), or sugar. ? You are very overweight (obese). What are the signs or symptoms? Symptoms of a kidney stone may include: ? Pain in the side of the belly, right below the ribs. Pain usually spreads to the groin. ? Needing to pee often or right away. ? Pain when peeing. ? Blood in your pee. ? Feeling like you may vomit (nauseous). ? Vomiting. ? Fever and chills. How is this treated? Treatment depends on the size, location, and makeup of the kidney stones. The stones will often pass out of the body when you pee. You may need to: ? Drink more fluid to help pass the stone. ? In some cases, you may be given fluids through an IV tube at the hospital. ? Take medicine for pain. ? Change your diet to help keep kidney stones from coming back. Sometimes, you may need: ? A procedure to break up kidney stones using a beam of light (laser) or shock waves. ? Surgery to remove the kidney stones. Follow these instructions at home: Medicines ? Take psss-cda-vjlmxyg and prescription medicines only as told by your doctor. ? Ask your doctor if the medicine prescribed to you requires you to avoid driving or using machinery. Eating and drinking ? Drink enough fluid to keep your pee pale yellow. ? You may be told to drink at least 8?10 glasses of water each day. This will help you pass the stone. ? If told by your doctor, change your diet. You may be told to: ? Limit how much salt you eat. ? Eat more fruits and vegetables. ? Limit how much meat, poultry, fish, and eggs you eat. ? Follow instructions from your doctor about what you may eat and drink. General instructions ? Collect pee samples as told by your doctor. You may need to collect a pee sample: ? 24 hours after a stone comes out. ? 8?12 weeks after a stone comes out, and every 6?12 months after that. ? Strain your pee every time you pee. Use the strainer that your doctor recommends. ? Do not throw out the stone. Keep it so that it can be tested by your doctor. ? Keep all follow-up visits. You may need X-rays and ultrasounds to make sure the stone has come out. How is this prevented? To prevent another [...] more information ? National Kidney Foundation (NKF): kidney.org ? Urology Care Foundation (UCF): urologyhealth.org Contact a doctor if: ? You have pain that gets worse or does not get better with medicine. Get help right away if: ? You have a fever or chills. ? You get very bad pain. ? You get new pain in your belly. ? You faint. ? You cannot pee. This information is not intended to replace advice given to you by your health care provider. Make sure you discuss any questions you have with your health care provider. Document Revised: 06/08/2023 Document Reviewed: 06/08/2023 [employer] Patient Education ? 2023 [employer]. Hematuria, Adult Hematuria is blood in the [...] may be needed to identify the cause (more content not included)... 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 documented in this encounter [facility] Work Phone: 03-06-2024 Instructions Ivett Mcpherson [...] of your visit. documented in this encounter [facility] Work Phone: 09-05-2022 Hospital Discharge instructions [...] With:Yehuda AVITIA Address: [facility] [address] [place] [address]- Business (1) When:03/05/2023 12:06:[address] [facility] 06-30-2022 Hospital Discharge instructions Patient Education 06/30/2022 12:01:44 Kidney Stones, Dbsl-me-Kruf Kidney Stones Kidney stones are rock-like masses [...] Follow these instructions at home: Medicines Take cdzn-jnr-ggcyjlf and prescription medicines only as told by [...] 04/02/2009 Document Revised: 03/02/2020 Document Reviewed: 03/02/2020 [employer] Patient Education 2020 [employer]. Follow Up Care 12/28/2021 15:15:51 With:Yehuda AVITIA MD, URL Address: [address] [place] [address]- When: Unknown [facility] Evaluation + Plan note Future Appointments Appointment Date:03/02/2023 11:00:00 AM Scheduled Provider:Yehuda AVITIA MD Location:[facility] Appointment Type:URO Office Visit [facility] Evaluation + Plan note Future Appointments Appointment Date:03/02/2023 11:00:00 AM Scheduled Provider:Yehuda AVITIA MD Location:[facility] Appointment Type:URO Office Visit Diagnostic Tests PendingUrine Culture 08/11/[address] [facility] Evaluation + Plan note Future Appointments Appointment Date:03/02/2023 11:00:00 AM Scheduled Provider:Yehuda AVITIA MD Location:[facility] Appointment Type:URO Office Visit Diagnostic Tests PendingUroVysion Fish and Urine Cyto ([facility]) 09/05/[address] [facility] Evaluation + Plan note Future Appointments Appointment Date:05/16/2024 10:45:00 AM Scheduled Provider:Yehuda AVITIA MD Location:[facility] Appointment Type:URO Office Visit [facility] Evaluation + Plan note Future Appointments Appointment Date:05/20/2024 11:00:00 AM Scheduled Provider:RAAD Back APRN, [place] X Location:[facility] Appointment Type:URO Office Visit [facility] Evaluation + Plan note Future Appointments Appointment Date:06/10/2024 03:00:00 PM Scheduled Provider:RAAD Back APRN, [place] [facility] Location:[facility] Appointment Type:URO Office Visit [facility] Evaluation + Plan note Future Appointments Appointment Date:07/01/2024 02:30:00 PM Scheduled Provider:RAAD Back APRN, [place] Location:[facility] Appointment Type:URO Office Visit [facility] Evaluation note Diagnosis Mixed hyperlipidemia- Primary Paroxysmal atrial fibrillation (Multi) Atrial fibrillation Non-ischemic cardiomyopathy (Multi) Other primary cardiomyopathies Never smoked tobacco BMI 36.0-36.9,adult Hyperlipidemia, unspecified hyperlipidemia type documented in this encounter [facility] Work Phone: History of Present illness NarrativePatient returns in follow-up of problems as noted. In the interim she is done well. She has none of the symptoms of cardiomyopathy that preceded her original diagnosis of heart failure. With guideline directed therapy in the jain of maintenance of sinus rhythm her symptoms [...] merits of diet exercise and weight loss. -[facility] 250 DO Work Phone: History of Present [...] the merits of diet and weight loss. [facility] 250 DO Work Phone: Hospital course Narrative No data available for this section [facility] Hospital Discharge instructions No data available for this section [facility] progress note No data available for this section [facility] Chief Complaint * I am doing [...] of.MIKY FUENTES is being seen for a 9 [...] ECG 12 Lead Nick Perez MD [address] [facility] [address] [place] [address] Referral ID Status Reason Start Date Expiration Date V isits Requested Visits Authorized [id number] Authorized 03/06/2024 03/06/2025 1 1 Specialty Diagnoses / Procedures Referred By Contac t Referred To Contact Cardiology Diagnoses Non-ischemic cardiomyopathy (Multi) Procedures Follow Up In Cardiology Nick Perez MD [address] [place] [address] Carmen Chi MD [address] [facility] [address] [place] [address] Referral ID Status Reason Start Date Expiration Date V isits Requested Visits Authorized [id number] Authorized 03/06/2024 03/06/2025 1 1 Additional Source Comments INFORMATION SOURCE (unrecogn ized section and content) DATE CREATED AUTHOR 06/26/2022 [facility] DATE CREATED AUTHOR AUTHOR'S ORGANIZ ATION 12/07/2022 [facility] DATE CREATED AUTHOR AUTHOR'S ORGANIZ ATION 12/07/2022 [facility] DATE CREATED AUTHOR AUTHOR'S ORGANIZ ATION 03/09/2023 [facility] [place] [facility] DATE CREATED AUTHOR AUTHOR'S ORGANIZ ATION 02/18/2024 [facility] DATE CREATED AUTHOR AUTHOR'S ORGANIZ ATION 02/19/2024 [facility] DATE CREATED AUTHOR AUTHOR'S ORGANIZ ATION 03/08/2024 [facility] DATE CREATED AUTHOR AUTHOR'S ORGANIZ ATION 03/30/2024 [facility] DATE CREATED AUTHOR AUTHOR'S ORGANIZ ATION 07/17/2024 [facility] DATE CREATED AUTHOR AUTHOR'S ORGANIZ ATION 07/27/2024 [facility] Care Team (unrecognized sect ion and content) Manager Simulation Relationship Specialty Start Date End Date Connor Jean Baptiste DO [address] [facility], [place] [address] PCP - General 10/29/19 Reason for Visit (unrecogniz ed section and content) Reason Comments Follow-up 2mo Specialty Diagnoses / Procedures Referred By Isa t Referred To Contact Cardiology Diagnoses Paroxysmal atrial fibrillation (Multi) Procedures Follow Up In Cardiology Nick Perez MD [address] [address] Referral ID Status Reason Start Date Expiration Date V isits Requested Visits Authorized [id number] Authorized 12/24/2023 12/23/2024 1 1 FOR RECORDS [...] BE BASED ON THE PRIMARY CLINICAL RECORDS. [employer] [facility]. provides no warranty or guarantee of the accuracy or completeness of information in this document.
--- NOTE | 2024-07-28 14:23 | ECG_ITS ---
[facility] Test Date: 2024-07-28 Pat Name: MIKY NOLEN Department: Room: - Gender: Female English Division Chair: : 1950 Requested By: YEHUDA HASSAN Order Number: [id number] Reading MD: FRANCINE CRAWLEY Measurements Intervals [place] Rate: 45 P: 81 HI: 194 QRS: -6 QRSD: 110 T: 33 QT: 455 QTc: 397 Interpretive Statements SINUS BRADYCARDIA NONSPECIFIC ST & T-WAVE ABNORMALITY Compared to ECG 11/16/2020 14:36:22 T-wave abnormality now present Left bundle-branch block no longer present ST (T wave) deviation no longer present Electronically Signed On 07-28-2024 22:56:47 EDT by FRANCINE CRAWLEY
--- NOTE | 2024-07-28 14:43 | P.GSHP_ITS ---
History of Present Illness History of Present Illness Chief complaint: hematuria, right kidney stone Narrative: Patient presents for preadmission testing. Please see HPI from Dr. Avitia dated July 15, 2024. Review of Systems ROS Narrative REVIEW OF SYSTEMS: Negative except as stated in HPI, ten or more systems reviewed. Constitutional: No fever, chills, weakness ENT: No sore throat or epistaxis Cardiovascular: No chest pain Respiratory: No shortness of breath, cough, or wheezing Musculoskeletal: No joint pain or swelling Gastrointestinal: No abdominal pain, constipation, diarrhea, or vomiting Neurological: No numbness, tingling, weakness, or headache Psychiatric: No mood changes PFSH PFS Medical History (Updated 07/28/24 @ 14:17 by Nancy Sanders NP) Arthritis ?M19.90 - Unspecified osteoarthritis, unspecified site (ICD-10) Palpitations ?R00.2 - Palpitations (ICD-10) Extremity edema ?R60.0 - Localized edema (ICD-10) Chronic kidney disease ?N18.9 - Chronic kidney disease, unspecified (ICD-10) Encounter for gastric sleeve procedure ?Z76.89 - Persons encountering health services in other specified circumstances (ICD-10) S/P extracorporeal shock wave therapy ?Z98.890 - Other specified postprocedural states (ICD-10) UTI (urinary tract infection) ?N39.0 - Urinary tract infection, site not specified (ICD-10) Urinary urgency ?R39.15 - Urgency of urination (ICD-10) Urinary frequency ?R35.0 - Frequency of micturition (ICD-10) Hydronephrosis ?N13.30 - Unspecified hydronephrosis (ICD-10) Ureteral stone ?N20.1 - Calculus of ureter (ICD-10) Stress incontinence ?N39.3 - Stress incontinence (female) (male) (ICD-10) Nocturia ?R35.1 - Nocturia (ICD-10) Hypothyroidism (acquired) ?E03.9 - Hypothyroidism, unspecified (ICD-10) Hypertension ?I10 - Essential (primary) hypertension (ICD-10) Enterobacter sepsis ?A41.59 - Other Gram-negative sepsis (ICD-10) Diabetes ?E11.9 - Type 2 diabetes mellitus without complications (ICD-10) Cholelithiasis ?K80.20 - Calculus of gallbladder without cholecystitis without obstruction (ICD-10) Anticoagulated ?Z79.01 - FDC (current) use of anticoagulants (ICD-10) Hyperlipidemia ?E78.5 - Hyperlipidemia, unspecified (ICD-10) Nonischemic cardiomyopathy ?I42.8 - Other cardiomyopathies (ICD-10) Mixed hyperlipidemia ?E78.2 - Mixed hyperlipidemia (ICD-10) Paroxysmal atrial fibrillation ?I48.0 - Paroxysmal atrial fibrillation (ICD-10) Hematuria ?R31.9 - Hematuria, unspecified (ICD-10) Kidney stones ?N20.0 - Calculus of kidney (ICD-10) Surgical History (Updated 07/28/24 @ 14:17 by Nancy Sanders NP) History of colonoscopy ?Z98.890 - Other specified postprocedural states (ICD-10) S/P ureteral stent placement ?Z96.0 - Presence of urogenital implants (ICD-10) History of hernia repair ?Z98.890 - Other specified postprocedural states (ICD-10) ?Z87.19 - Personal history of other diseases of the digestive system (ICD-10) History of hysterectomy ?Z90.710 - Acquired absence of both cervix and uterus (ICD-10) H/O cystoscopy ?Z98.890 - Other specified postprocedural states (ICD-10) Family History (Updated 07/28/24 @ 13:53 by Nancy Sanders NP) Other Family history of cancer Family history of diabetes mellitus Family history of myocardial infarction Social History (Updated 07/28/24 @ 14:12 by Nancy Sanders NP) Within the past year, how often did you have a drink containing alcohol: never Score interpretation: A score less than 3 is consistent with normal alcohol consumption. Smoking status: Never smoker Non-prescribed substance use: denies use Highest level of school completed/degree received: some college, no degree Meds Home Medications and Allergies Home Medications ?Medication ?Instructions ?Recorded ?Confirmed ?Type acetaminophen 650 mg 650 mg PO Q12H PRN pain 07/28/24 07/28/24 History tablet,extended release (Tylenol Arthritis Pain) allopurinol 300 mg tablet 300 mg PO DAILY 07/28/24 07/28/24 History calcium 600 mg-D3 800 unit-mag11 1 tab PO DAILY 07/28/24 07/28/24 History 50 au-zwwj-vzwxrz-octavia-s.borat tablet (Caltrate 600-D Plus Minerals) cholecalciferol (vitamin D3) 25 25 mcg PO DAILY 07/28/24 07/28/24 History mcg (1,000 unit) capsule dronedarone 400 mg tablet (Multaq) 400 mg PO DAILY PRN palpitations 07/28/24 07/28/24 History fexofenadine 180 mg tablet 180 mg PO DAILY 07/28/24 07/28/24 History ([facility]) glucosam 750 mg-chondroi 100 1 tab PO DAILY 07/28/24 07/28/24 History mg-hyalur 1.65 mg-CF borate 108 mg tablet (Backspaces) krill 1 cap PO DAILY 07/28/24 07/28/24 History rqg-uj4-oie-prs-sj6-vzn-astax 1,500 mg-165 mg-67.5 mg capsule (Krill Oil (Fowler 3 and 6)) levothyroxine 125 mcg tablet 125 mcg PO DAILY 07/28/24 07/28/24 History lisinopril 2.5 mg tablet 2.5 mg PO DAILY 07/28/24 07/28/24 History lovastatin 10 mg tablet 10 mg PO DAILY 07/28/24 07/28/24 History pejtfkhe-jknr-aeeu 8 mg-folic 400 1 tab PO DAILY 07/28/24 07/28/24 History mcg-K 50 mcg-lutein 300 mcg tablet ([facility]) potassium bicarbonate-citric acid 25 meq PO DAILY 07/28/24 07/28/24 History 25 mEq effervescent tablet (Effer-K) rivaroxaban 20 mg tablet (Xarelto) 20 mg PO Q24H 07/28/24 07/28/24 History Allergies Allergy/AdvReac Type Severity Reaction Status Date / Time ciprofloxacin [From Cipro] Allergy Rash Verified 07/28/24 13:59 corn Allergy Unknown Verified 07/28/24 13:59 milk Allergy Unknown Verified 07/28/24 13:59 Sulfa (Sulfonamide Allergy Rash Verified 07/28/24 13:59 Antibiotics) Exam Narrative Exam Narrative: Constitutional: Awake, alert, comfortable, well-appearing, nontoxic, interactive, vital signs as charted Head: Normocephalic, atraumatic Neck: Supple, normal appearance, normal range of motion, no meningeal signs, no lymphadenopathy Respiratory: No respiratory distress, breath sounds clear Cardiovascular: Bradycardic rate, regular rhythm, strong and regular heart tones Abdomen: Nontender, normal bowel sounds, soft, no CVA tenderness Musculoskeletal: Normal gait, no swelling, 2+ pedal edema bilaterally Skin: No rashes or induration, no lesions, only visible skin inspected Neuro: No neurological deficits, normal sensation Psychiatric: Oriented ?3, normal affect Assessment and Plan Assessment and Plan (1) Kidney stones: (2) Hematuria: Plan Cystoscopy, right retrograde, right ureteroscopy, holmium laser, possible right stent placement scheduled with Dr. Avitia August 14, 2024.
[2024-07-28 14:45] LABS: Basophils Percent Auto 0.7 % (0.2-2.0); Eosinophils Absolute Auto 0.2 10^3/uL (0.0-0.7); Eosinophils Percent Auto 3.6 % (0.9-7.0); Hematocrit 36.1 % (36.0-48.0); Hemoglobin 11.6 g/dL (12.0-16.0); Immature Granulocytes Abs Auto 0.01 10^3/uL (0.00-0.03); Immature Granulocytes Pct Auto 0.2 % (0.0-0.5); Lymphocytes Absolute Auto 1.6 10^3/uL (1.2-3.8); Lymphocytes Percent Auto 28.4 % (20.5-60.0); Mean Corpuscular HGB Conc 32.1 g/dL (29.9-35.2); Mean Corpuscular Hemoglobin 28.9 pg (26.7-34.0); Mean Corpuscular Volume 89.8 fL (81.0-99.0); Mean Platelet Volume 9.2 fL (9.5-13.5); Monocytes Absolute Auto 0.5 10^3/uL (0.3-0.8); Monocytes Percent Auto 9.4 % (1.7-12.0); Neutrophils Absolute Auto 3.2 10^3/uL (1.4-6.5); Neutrophils Percent Auto 57.7 % (43.0-75.0); Platelet Count 188 10^3/uL (150-450); Red Blood Count 4.02 10^6/uL (4.20-5.40); Red Cell Distribution Width 14.8 % (11.0-15.0); White Blood Count 5.5 10^3/uL (4.0-11.0)
[2024-07-28 15:01] LABS: INR 1.14; Partial Thromboplastin Time 30.5 sec (22.3-36.2); Prothrombin Time 11.9 sec (9.0-11.6)
[2024-07-28 15:11] LABS: Anion Gap 8.4; BUN Creatinine Ratio 22.6; Calcium 9.8 mg/dL (8.5-10.1); Carbon Dioxide 28.6 mmol/L (21.0-32.0); Chloride 103 mmol/L (98-107); Estimated GFR (African America >60 (>=60); Estimated GFR (Non-African Ame >60 (>=60); Glucose 107 mg/dL (74-106); Sodium 136 mmol/L (136-145)
== END 2024-07-28 13:47 | disposition home or self-care (01) ==
LOC: PST 13:46
PROVIDERS: PCP Family Medicine; Visit Provider Urology
DX: Z01.810 Encounter for preprocedural cardiovascular examination (principal); Z01.812 Encounter for preprocedural laboratory examination; Z01.818 Encounter for other preprocedural examination; N20.0 Calculus of kidney; R31.9 Hematuria, unspecified
CPT/HCPCS: 80048; 85025; 85610; 85730; 93005; G0463

== ENCOUNTER 2024-08-05 15:03 | Outpatient (OUT) | payer MEDICARE, OTHER, SELFPAY ==
--- OUTSIDE RECORDS SUMMARY | 2024-07-28 14:03 | XMS_ITS | CCD ---
Author Organization [facility] Care Team Providers Care 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 Name Role Phone Markel Connor Marinelli Unavailable Unavailable Unavailable CONNOR JEAN BAPTISTE Primary Care Physician [phone] Nick Perez II Attending Unav ailelisabeth Perez [...] Unavailable WEST, DR WILLARD Pittman Consulting [facility] Marinelli Primary Care [...] DR CONNOR Marinelli Primary Care Unavailable Zieber, Kyel Consulting Unavailable FURLONG, DR CONNOR Marinelli Primary [...] WILLARD Pittman Admgabriela Unavailable FURLONG, DR CONNOR Marinelil Primary Care Unavailable WEST, DR WILLARD Pittman [...] DR WILLARD Pittman Admgabriela Unavailable WEST, DR WLILARD Pittman Attending Unavailable AVITIA ., DR DAN Admitting Unavailable AVITIA ., DR DAN Attending Unavailable AVITIA ., DR DAN Consulting Unavailable FURLONG, DR CONNOR Marinelli Primary Care Unavailable [place] [place], DR WILLARD Pittman Consulting Unavailable [place] [place], DR WILLARD Pittman Admitting Unavailable FURLONG, DR CONNOR Marinelli Primary Care Unavailable [place] [place], DR WILLARD Pittman Attending Unavailable MISC, DOCTOR Admitting Unavailable MISC, DOCTOR Attending Unavailable MISC, DOCTOR Consulting Unavailable FURLONG, DR CONNOR Marinelli Primary Care Unavailable FURLONG, CONNOR Marinelli Attending Unavailable FURLONG, CONNOR Marinelli Referring Unavailable FURLONG, CONNOR Marinelli Primary Care Unavailable FURLONG, CONNOR Marinelli Referring Unavailable FURLONG, CONNOR Marinelli Primary Care Unavailable Furng DO, Connor Ugarte [...] Eruption of skin (disorder), Unknown [facility] [place] (18 sources) Sulfonamides (Antibiotic); Translations: [Sulfa Drugs] Allergy to drug (finding) Eruption of skin (disorder) [facility] [place] (15 sources) corn extract; Translations: [Sugarloaf] Drug Allergy 02-18-20 Unknown (qualifier value) [facility] (11 sources) Dog; Translations: [Dogs] Allergy to substance Unknown (qualifier value) [facility] (14 sources) Mold Extract; Translations: [mold] Drug Allergy 06-21-20 23 Unknown (qualifier value) [facility] (11 sources) Milk Products; Translations: [Milk Products] Food allergy Unknown (qualifier value) [facility] (11 sources) house dust mite allergen extract; Translations: [house dust mite allergen extra] Allergy to substance Unknown (qualifier value) [facility] (2 sources) Ciprofloxacin Drug Allergy 01-31-[address] [facility] (1 source) house dust allergenic extract Drug Allergy [facility] (2 sources) Lactose Drug Allergy [facility] (1 source) Sulfonamides (Antibiotic) Drug allergy (disorder) [facility] (2 sources) Sulfamethoxazole / Trimethoprim; Translations: [...] Daily, # 90 cap(s), Refills(s) 3, Pharmacy: [facility], 165, cm, 10/26/23 8:42:00 EST, Height/Length Dosing, 97.5, kg, 10/26/23 8:42:00 EST, Weight Dosing Start Date: 03/12/24 Status: Ordered Start: 02-02-2022 take 1 tablet by rosalinda th once daily allopurinol 300 mg Tab 300 mg = 1 tab(s), Oral, Daily, # 90 cap(s), Refills(s) 3, Pharmacy: [facility] #[facility], 165, cm, 03/02/23 12:05:00 EDT, Height/Length [...] 03/02/23 Status: Ordered take 1 tablet by [facility] once daily Lovastatin 10 MG Oral Tablet TAKE 1 TABLET DAILY DIRECTED. Quantity: 90 Refills: 3 Ordered: 06-Dec-2022 Nick Perez MD Active Abelino Krill Oil (4 sources) Start: 07-29-2019 take 1 capsule by mouth once daily Abelino Krill Oil Abelino Krill Oil, one cap., Oral, Daily Start Date: 07/29/19 Status: Ordered hknjqeam-xmh-avii-F A-vit K-lut (Centrum Silver Women) 8 mg iron-400 mcg-50 mcg tablet (1 source) take 1 tablet by mouth once daily vceadwdy-uhe-wkah-F A-vit K-lut (Centrum Silver Women) 8 mg iron-400 mcg-50 mcg tablet Take 1 tablet by mouth once daily. Active omega-3 fatty acids-fish oil (One-Per-Day Rubicon-3) 684-1,200 mg capsule (1 source) omega-3 fatty acids-fish oil (One-Per-Day Rubicon-3) 684-1,200 mg capsule Take 1 capsule (1,200 [...] procedure, # 2 cap(s), Refills(s) 0, Pharmacy: [facility], 165, cm, 06/30/22 11:48:00 EDT, Height/Length [...] BID, # 60 tab(s), Refills(s) 11, Pharmacy: [facility], 165, cm, 10/26/23 8:42:00 EST, Height/Length [...] in the morning. Take before meals. Active Rubicon 3 CAPS (7 sources) Rubicon 3 CAPS BASSAM E DIRECTED. Quantity: 0 [...] (U) [Interp] Diagnosis Info Invalid Interpretation Code [facility] Comment on above: Result Comment: A:Ur ine,Clean [...] on: 07/18/2024 12:47:49 Performed By: #### 1 [id number] #### [facility] [address] [place] [address] Ambulatory Visit Summaryon 0 07-15-2024 Ambulatory Visit [...] When: Comments: pending review of imaging Where: [address] [place] [address]- Medications What How Much When Instructions Unchanged [...] prescribing physician if questions or concerns Allergies Sugarloaf (Unknown) Dogs (Unknown) Milk Products (Unknown) Mold [...] the b (more content not included)... Normal [facility] Urine Cytology ([facility])on 0 07-15-2024 Method of Extraction Voided Normal [facility] Comment on above: Performed By: #### 1 [id number] #### [facility] [address] [place] [address] Number of Jars 1 Invalid Interpretation Code [facility] Comment on above: Performed By: #### 1 [id number] #### [facility] [address] [place] [address] Specimen Clean Catch Normal [facility] Comment on above: Performed By: #### 1 [id number] #### [facility] [address] [place] [address] Type of Service Technical Only Normal [facility] Comment on above: Performed By: #### 1 [id number] #### [facility] [address] [place] [address] Urology Office/Clinic Noteon 07-15-2024 Urology Office/Clinic Note [...] with voice recognition artificial intelligence software, specifically [employer], [employer] and or [employer]. Substitutions may have occurred due to the [...] Urnls Dip Stick Auto w/o Microscopy POC 93271 Follow-up With When Contact Information MO HAYDEN, Yehuda Haddad, URL [address] [place] [address]- Additional Instructions: pending review of imaging Patient Education Kidney Stones, Qzdk-nw-Zuol Hematuria, Adult Problem List/Past Medical History Ongoing [...] bile duct (more content not included)... Normal [facility] Comment on above: Result Comment: Elec tronically Signed By: RAAD Back APRN, Aurora X\.br\Date and Time Signed: 07/15/24 15:39 EDT ECG 12 Leadon 03-06-2024 Sinus bradycardia with occasional PVCs Low voltage QRS Nonspecific ST change QTc 391 ms [facility] Work Phone: BASIC METABOLIC PANLon 02-17 Anion gap [Moles/Vol] 6 mmol/L Normal [facility] Comment on above: Performed By: #### B YONATAN, THYR #### [facility] ([id number]) [address], [address] [place] [address] Calcium [Mass/Vol] 9.8 mg/dL Normal 8.5-10.5 [facility] Comment on above: Performed By: #### B YONATAN, THYR #### [facility] ([id number]) [address], [address] [place] [address] Chloride [Moles/Vol] 106 mmol/L Normal 98-109 [facility] Comment on above: Performed By: #### B YONATAN, THYR #### [facility] ([id number]) [address], [address] [place] [address] CO2 [Moles/Vol] 31 mmol/L Normal 22-32 [facility] Comment on above: Performed By: #### B YONATAN, THYR #### [facility] ([id number]) [address], [address] [place] [address] Creatinine [Mass/Vol] 0.90 mg/dL Normal 0.40-1.00 [facility] Comment on above: Result Comment: METH OD TRACEABLE TO IDMS STANDARD Performed By: #### B YONATAN, THYR #### [facility] ([id number]) [address], [address] [place] [address] GFR/1.73 sq M.predicted among non-blacks MDRD (S/P/Bld) [Vol rate/Area] 68 mL/min/{1.73_m2} Normal >59 [facility] Comment on above: Result Comment: Reported eGFR is based on the CKD-EPI 2020 equation that does not use a race coefficient. Performed By: #### B YONATAN, THYR #### [facility] ([id number]) [address], [address] [place] [address] Glucose [Mass/Vol] 105 mg/dL High 65-99 [facility] Comment on above: Performed By: #### B YONATAN, THYR #### [facility] ([id number]) [address], [address] [place] [address] Potassium [Moles/Vol] 4.2 mmol/L Normal 3.5-5.0 [facility] Comment on above: Performed By: #### B YONATAN, THYR #### [facility] ([id number]) [address], [address] [place] [address] Sodium [Moles/Vol] 143 mmol/L Normal 134-146 [facility] Comment on above: Performed By: #### B YONATAN, THYR #### [facility] ([id number]) [address], [address] [place] [address] Urea nitrogen [Mass/Vol] 19 mg/dL Normal 5-27 [facility] Comment on above: Performed By: #### B YONATAN, THYR #### [facility] ([id number]) [address], [address] [place] [address] THYROID PROFILEon 02-18-2024 Free T4 [Mass/Vol] 1.92 ng/dL High 0.61-1.60 [facility] Comment on above: Performed By: #### B YONATAN, THYR #### [facility] ([id number]) [address], [address] [place] [address] TSH 0.58 uIU/mL Normal 0.49-4.67 [facility] Comment on above: Performed By: #### B YONATAN, THYR #### [facility] ([id number]) [address], [address] [place] [address] Ambulatory Visit Summaryon 1 Ambulatory Visit Summary MIKY FUENTES :1950 Visit Date:10/26/2023 Ambulatory Visit Instructions Your Diagnosis Ureteral stone with hydronephrosis Kidney stone Tests Performed Urnls Dip Stick Auto w/o Microscopy POC 46958 Your Care Team Attending Physician - Yehuda [...] AM EST With: Where: [facility] Normal [address] [place] [address]- \.br\ You Need to Schedule the Following Appointments\.br\ Follow Up with Yehuda AVITIA MD, URL When: \.br\ Where:\.br\ [address] [facility] [address]\.br\ [place] [address]-\.br\ Medications\.br\ What How Much When Instructions\.br\ New potassium bicarbonate (K-Effervescent 25 mEq oral tablet, effervescent) 1 Tablets By Mouth 2 times a day Refills: 11 Pickup at [facility]\.br\ Unchanged allopurinol (allopurinol 300 mg Tab) [...] if questions or concerns \.br\ Pharmacy Information\.br\ [facility]: [address], [place] [id number] [phone]\.br\ \.br\ What How Much When Why Comments\.br\ Stop Taking tamsulosin (Flomax 0.4 mg Cap) 1 Capsules By Mouth Every day Right flank pain Kidney stones Gross hematuria\.br\ Test Results\.br\ Urnls Dip Stick Auto w/o Microscopy POC 24742 (10/26/2023)\.br\ Bilirubin Urine Dipstick - Negative\.br\ Blood Urine Dipstick - 3+ Large\.br\ Glucose Urine Dipstick - Negative\.br\ Ketones Urine Dipstick - Negative\.br\ Leukocytes Urine Dipstick - Negative\.br\ Nitrite Urine Dipstick - Negative\.br\ Protein Urine Dipstick - 2+ (100 mg/dl)\.br\ Specific Maud Urine Dipstick - 1.025\.br\ Urine Appearance Urine Dipstick - Slightly cloudy\.br\ Urine Color Urine Dipstick - Yellow\.br\ Urobilinogen Urine Dipstick - Normal 0.2-1 EU/dl\.br\ pH Urine Dipstick - 5\.br\ Allergies\.br\ Sugarloaf (Unknown)\.br\ Dogs (Unknown)\.br\ Milk Products (Unknown)\.br\ Mold [...] \.br\ Have a salad and fruit [facility] Patient Educationon 10-26-20 Patient Education [...] Spinach (cooked), rhubarb, beets, sweet potatoes, and [place]ib[place]ian chard. ? Peanuts. ? Potato chips, croatian fries, and baked potatoes with skin on. ? Nuts and nut products. ? Chocolate. ? If you regularly take a diuretic medicine, make sure to eat at least 1 or 2 servings of fruits or vegetables that are high in potassium each day. These include: ? Avocado. ? Banana. ? [place], prune, carrot, or tomato juice. ? Baked [...] fish oil, or vitamin B6. ? Take jjvt-chx-heomjop and prescription medicines only as told by your health care provider. These include supplements. What foods sh (more content not included)... Normal [facility] 10-26-2023 [facility] [id number]#1 .00TIFF Normal [facility] [id number]#1 .00TIFF [facility] Urology Office/Clinic Noteon 10-26-2023 Urology Office/Clinic Note Chief Complaint CT Review HPI Staff 2 wk f/u with KUB. Saw DAXA at prior OV. Previous Dx: R flank pain, kidney stones, gross hematuria. S/p ESWL 11/18/20. CT AP wo con done 10/11/23 at [facility].Was given Tamsulosin, however stopped taking after [...] Information MO HAYDEN, Yehuda Haddad, URL [address] [place] [address]- Additional Instructions: 6 months Patient Education Dietary [...] OTC joint sup (more content not included)... [facility] Comment on above: Result Comment: Elec tronically Signed By: Yehuda AVITIA MD\.br\Date and Time Signed: 10/26/23 09:11 EST\.br\Electronically Co-Signed By: Chantal Bishop.jaison\Date and Time Co-Signed: 10/26/23 09:09 EST RAD - CT Reporton 10-15-2023 RAD - CT Report [id number]# 1.00TIFF [facility] RAD - CT Report [id number]#1 .00TIFF [facility] RAD - MISCon 10-15-2023 RAD - MISC [id number]#1 .00TIFF [facility] RAD - MISC [id number]#1 .00TIFF [facility] Ambulatory Visit Summaryon 1 12-10-2022 Ambulatory Visit Summary MIKY FUENTES :1950 Visit Date:10/09/2023 Ambulatory Visit Instructions Your Diagnosis Gross hematuria Right flank pain Tests Performed Urnls Dip Stick Auto w/o Microscopy POC 60774 Your Care Team Attending Physician - DORA [...] Urnls Dip Stick Auto w/o Microscopy POC 88588 (10/09/2023) Bilirubin Urine Dipstick - Negative Blood Urine Dipstick - 3+ Large Glucose Urine Dipstick - Negative Ketones Urine Dipstick - Negative Leukocytes Urine Dipstick - Negative Nitrite Urine Dipstick - Negative Protein Urine Dipstick - 3+ (300 mg/dl) Specific Maud Urine Dipstick - >=1.030 Urine Appearance Urine Dipstick - Clear Urine Color Urine Dipstick - Yellow Urobilinogen Urine Dipstick - Normal 0.2-1 EU/dl pH Urine Dipstick - 5.5 Allergies Sugarloaf (Unknown) Dogs (Unknown) Milk Products (Unknown) Mold [...] for choosing us for your care. Normal [facility] Patient Educationon 10-09-20 Patient Education Urology Hematuria, [...] these instructions at home: Medicines ? Take httl-ufm-obhxmag and prescription medicines only as told by [...] the blood stops without treatment. ? Take sdth-zuj-hqgceod and prescription medicines only as told by your health care provider. ? Drink enough fluid to keep your urine pale yellow. This information is not intended to replace advice given to you by your health care provider. Make sure you discuss any questions you have with your health care provider. Document Revised: 06/15/2021 Document Reviewed: 06/15/2021 [employer] Out Patient Education ? 2022 [employer] Pipe [facility] Urology Office/Clinic Noteon 10-09-2023 Urology Office/Clinic Note [...] Daily, # 30 cap(s), Refills(s) 0, Pharmacy: [facility], 165, cm, 10/09/23 15:24:00 EST, Height/Length Dosing, 113, kg, 10/09/23 15:24:00 EST, Weight Dosing CT Abdomen w/o Contrast E&M of Est. Patient Moderate 30-39 Min 10776 2. Kidney stones (N20.0: Calculus of kidney) see #1 KUB from this spring showed several medium (6-7mm) R renal stones has had multiple lithotripsy in past Ordered: tamsulosin, 0.4 mg = 1 cap(s), Oral, Daily, # 30 cap(s), Refills(s) 0, Pharmacy: [facility], 165, cm, 10/09/23 15:24:00 EST, Height/Length Dosing, 113, kg, 10/09/23 15:24:00 EST, Weight Dosing CT Abdomen w/o Contrast E&M of Est. Patient Moderate 30-39 Min 76034 3. Gross hematuria (R31.0: Gross hematuria) see #1 Ordered: tamsulosin, 0.4 mg = 1 cap(s), Oral, Daily, # 30 cap(s), Refills(s) 0, Pharmacy: [facility], 165, cm, 10/09/23 15:24:00 EST, Height/Length Dosing, 113, kg, 10/09/23 15:24:00 EST, Weight Dosing CT Abdomen w/o Contrast E&M of Est. Patient Moderate 30-39 Min 38171 Urnls Dip Stick Auto w/o Microscopy POC 78624 Follow-up With When Contact Information INGE CARDONA, DORA Washburn, URL [address] [place] [address] Business (1) Additional Instructions: pending [...] Oral, B (more content not included)... Normal [facility] Comment on above: Result Comment: Elec tronically Signed By: INGE CARDONA, DORA [place]\.br\Date and Time Signed: 10/09/23 15:49 EST CREATININEon 03-05-2023 Creatinine [Mass/Vol] 1.16 mg/dL Critically high 0.55-1.02 [facility] Comment on above: Performed By: #### C AIYANA #### [facility] [address] [place] [address] Dr. Alysha Machuca EGFR-AF SAMMARINESE 56 mL/min/1.73m2 Critically low >=[address] [facility] Comment on above: Performed By: #### C AIYANA #### [facility] [address] [place] [address] [address] Alysha Machuca EGFR-NON AF SAMMARINESE 46 mL/min/1.73m2 Critically low >=60 [facility] Comment on above: Performed By: #### C AIYANA #### [facility] [address] [place] ABD/PELVIS WO CONon [...] KYLE BLANC Date: 2023-03-05 15:[address] [facility] VITAMIN B1 (THIAMINE)on 01-28 Vit. B1, Whole Blood 132.2 nmol/L Normal 66.5-200.0 [facility] Comment on above: Performed By: #### V ITB1T ####[facility] [address] [address]Dr. Alysha Machuca CBC AUTO DIFFon 02-20-2023 BASO # 0.1 103/ul Normal 0.0-0.1 [facility] Comment on above: Performed By: #### C BC #### [facility] [address] [place], [place] [address] Dr. Alysha Machuca Basophils/100 WBC (Bld) 0.9 % Normal 0.2-2.0 [facility] Comment on above: Performed By: #### C BC #### [facility] [address] [place] [address] Dr. Alysha Machuca EO # 0.2 103/ul Normal 0.0-0.7 [facility] Comment on above: Performed By: #### C BC #### [facility] [address] [place] [address] Dr. Alysha Machuca Eosinophils/100 WBC (Bld) 3.0 % Normal 0.9-7.0 [facility] Comment on above: Performed By: #### C BC #### [facility] [address] [place] [address] Dr. Alysha Machuca Erythrocyte distribution width (RBC) [Ratio] 13.9 % Normal 11.0-15.0 [facility] Comment on above: Performed By: #### C BC #### [facility] [address] [place] [address] Dr. Alysha Machuca Hematocrit (Bld) [Volume fraction] 39.5 % Normal 36.0-48.0 [facility] Comment on above: Performed By: #### C BC #### [facility] [address] [place] [address] Dr. Alysha Machuca Hemoglobin (Bld) [Mass/Vol] 12.7 g/dL Normal 12.0-16.0 [facility] Comment on above: Performed By: #### C BC #### [facility] [address] [place] [address] Dr. Alysha Machuca IG # 0.01 10e3/ul Normal 0.00-0.03 [facility] Comment on above: Performed By: #### C BC #### [facility] [address] [place] [address] Dr. Alysha Machuca IG % 0.2 % Normal 0.0-0.5 [facility] Comment on above: Performed By: #### C BC #### [facility] [address] [place] [address] Dr. Alysha Machuca LYMPH # 1.7 103/ul Normal 1.2-3.8 [facility] Comment on above: Performed By: #### C BC #### [facility] [address] [place] [address] Dr. Alysha Machuca Lymphocytes/100 WBC (Bld) 30.7 % Normal 20.5-60.0 [facility] Comment on above: Performed By: #### C BC #### [facility] [address] [place] [address] Dr. Alysha Machuca MANUAL DIFF REQ NO Normal [facility] Comment on above: Performed By: #### C BC #### [facility] [address] [place] [address] Dr. Alysha Machuca MCH (RBC) [Entitic mass] 29.3 pg Normal 26.7-34.0 [facility] Comment on above: Performed By: #### C BC #### [facility] [address] [place] [address] Dr. Alysha Machuca MCHC (RBC) [Mass/Vol] 32.2 g/dL Normal 29.9-35.2 [facility] Comment on above: Performed By: #### C BC #### [facility] [address] [place] [address] Dr. Alysha Machuca MCV (RBC) [Entitic vol] 91.0 fL Normal 81.0-99.0 [facility] Comment on above: Performed By: #### C BC #### [facility] [address] [place] [address] Dr. Alysha Machuca MONO # 0.4 103/ul Normal 0.3-0.8 [facility] Comment on above: Performed By: #### C BC #### [facility] [address] [place] [address] Dr. Alysha Machuca Monocytes/100 WBC (Bld) 6.8 % Normal 1.7-12.[address] [facility] Comment on above: Performed By: #### C BC #### [facility] [address] [place] [address] Dr. Alysha Machuca NEUT # 3.3 103/ul Normal 1.4-6.[address] [facility] Comment on above: Performed By: #### C BC #### [facility] [address] [place] [address] [address] Alysha Machuca Neutrophils/100 WBC (Bld) 58.4 % Normal 43.0-75.0 [facility] Comment on above: Performed By: #### C BC #### [facility] [address] [place] [address] [address] Alysha Machuca Platelet mean volume (Bld) [Entitic vol] 9.3 fL Critically low 9.5-13.5 [facility] Comment on above: Performed By: #### C BC #### [facility] [address] [place] [address] [address] Alysha Machuca PLT 186 103/ul Normal 150-450 [facility] Comment on above: Performed By: #### C BC #### [facility] [address] [place] [address] [address] Alysha Machuca RBC 4.34 106/ul Normal 4.20-5.[address] [facility] Comment on above: Performed By: #### C BC #### [facility] [address] [place] [address] [address] Alysha Machuca WBC 5.6 103/ul Normal 4.0-11.[address] [facility] Comment on above: Performed By: #### C BC #### [facility] [address] [place] [address] [address] Alysha Machuca FERRITINon 02-20-2023 Ferritin [Mass/Vol] 36.0 ng/mL Normal 8.0-252.[address] [facility] Comment on above: Performed By: #### F ERR, B12FOL, FETIBC, VITAD ####[facility] [address] [address]Dr. Alysha Machuca IRON AND TIBCon 02-20-2023 % SATURATION 15.8 % Normal [facility] Comment on above: Performed By: #### F ERR, B12FOL, FETIBC, VITAD ####[facility] [address] [address]Dr. Alysha Machuca Iron [Mass/Vol] 53.0 ug/dL Normal 50.0-170.0 [facility] Comment on above: Performed By: #### F ERR, B12FOL, FETIBC, VITAD ####[facility] [address] [id number]. Alysha Machuca TIBC DIRECT 335.0 ug/dL Normal 250.0-450.0 [facility] [place] Comment on above: Performed By: #### F ERR, B12FOL, FETIBC, VITAD ####[facility] [address] [place], [place] [address]Ch. Alysha Machuca MAGNESIUMon 02-20-2023 Magnesium [Mass/Vol] 1.9 mg/dL Normal 1.8-2.4 [facility] Comment on above: Performed By: #### P HOS, CMP, MG #### [facility] [address] [place] [address] Dr. Alysha Machuca PHOSPHORUSon 02-20-2023 Phosphate [Mass/Vol] 3.9 mg/dL Normal 2.6-4.7 [facility] Comment on above: Performed By: #### P HOS, CMP, MG #### [facility] [address] [place] [address] Dr. Alysha Machuca PROF 14(COMP METB)on 023 Albumin [Mass/Vol] 3.4 g/dL Normal 3.4-5.0 [facility] Comment on above: Performed By: #### P HOS, CMP, MG #### [facility] [address] [place] [address] Dr. Alysha Machuca Albumin/Globulin [Mass ratio] 0.9 {ratio} Normal [facility] Comment on above: Performed By: #### P HOS, CMP, MG #### [facility] [address] [place] [address] Dr. Alysha Machuca ALP [Catalytic activity/Vol] 123 U/L Critically high 46-116 [facility] Comment on above: Performed By: #### P HOS, CMP, MG #### [facility] [address] [place] [address] Dr. Alysha Machuca ALT [Catalytic activity/Vol] 21 U/L Normal 14-59 [facility] Comment on above: Performed By: #### P HOS, CMP, MG #### [facility] [address] [place] [address] Dr. Alysha Machuca Anion gap [Moles/Vol] 13.8 mmol/L Normal [facility] Comment on above: Performed By: #### P HOS, CMP, MG #### [facility] [address] [place] [address] Dr. Alysha Machuca AST [Catalytic activity/Vol] 15 U/L Normal 15-[address] [facility] Comment on above: Performed By: #### P HOS, CMP, MG #### [facility] [address] [place] [address] Dr. Alysha Machuca Bilirubin [Mass/Vol] 0.5 mg/dL Normal 0.2-1.0 [facility] Comment on above: Performed By: #### P HOS, CMP, MG #### [facility] [address] [place] [address] Dr. Alysha Machuca Calcium [Mass/Vol] 9.6 mg/dL Normal 8.5-10.[address] [facility] Comment on above: Performed By: #### P HOS, CMP, MG #### [facility] [address] [place] [address] Dr. Alysha Machuca Chloride [Moles/Vol] 103 mmol/L Normal 98-[address] [facility] Comment on above: Performed By: #### P HOS, CMP, MG #### [facility] [address] [place] [address] Dr. Alysha Machuca CO2 [Moles/Vol] 25.2 mmol/L Normal 21.0-32.0 [facility] Comment on above: Performed By: #### P HOS, CMP, MG #### [facility] [address] [place] [address] Dr. Alysha Machuca Creatinine [Mass/Vol] 0.95 mg/dL Normal 0.55-1.02 [facility] Comment on above: Performed By: #### P HOS, CMP, MG #### [facility] [address] [place] [address] [address] Alysha Machuca EGFR-AF SAMMARINESE >60 Normal >=60 [facility] Comment on above: Performed By: #### P HOS, CMP, MG #### [facility] [address] [address] [address] Alysha Machuca EGFR-NON AF SAMMARINESE 58 mL/min/1.73m2 Critically low >=[address] [facility] Comment on above: Performed By: #### P HOS, CMP, MG #### [facility] [address] [place] [address] Dr. Alysha Machuca Globulin (S) [Mass/Vol] 3.6 g/dL Normal [facility] Comment on above: Performed By: #### P HOS, CMP, MG #### [facility] [address] [place] [address] Dr. Alysha Machuca Glucose [Mass/Vol] 96 mg/dL Normal 74-[address] [facility] Comment on above: Performed By: #### P HOS, CMP, MG #### [facility] [address] [place] [address] Dr. Alysha Machuca Potassium [Moles/Vol] 4.0 mmol/L Normal 3.5-5.[address] [facility] Comment on above: Performed By: #### P HOS, CMP, MG #### [facility] [address] [place] [address] Dr. Alysha Machuca Protein [Mass/Vol] 7.0 g/dL Normal 6.4-8.[address] [facility] Comment on above: Performed By: #### P HOS, CMP, MG #### [facility] [address] [place] [address] Dr. Alysha Machuca Sodium [Moles/Vol] 138 mmol/L Normal 136-[address] [facility] Comment on above: Performed By: #### P HOS, CMP, MG #### [facility] [address] [place] [address] Dr. Alysha Machuca Urea nitrogen [Mass/Vol] 21.0 mg/dL Critically high 7.0-18.[address] [facility] Comment on above: Performed By: #### P HOS, CMP, MG #### [facility] [address] [address] [address] Alysha Machuca Urea nitrogen/Creatini ne [Mass ratio] 22.1 mg/mg Normal [facility] Comment on above: Performed By: #### P HOS, CMP, MG #### [facility] [address] [address] [address] Alysha Machuca VIT B12 AND FOLATEon 023 Cobalamin (Vitamin B12) [Mass/Vol] 652.0 pg/mL Normal 193.0-986.0 [facility] Comment on above: Performed By: #### F ERR, B12FOL, FETIBC, VITAD ####[facility] [address] [place] [address]DrMaite Machuca FOLATE 18.30 ng/mL Normal 8.60-58.90 [facility] Comment on above: Performed By: #### F ERR, B12FOL, FETIBC, VITAD ####[facility] [address] [place] [address]Dr. Alysha Machuca VITAMIN D 25 OHon 02-20-2023 VIT D 25-OH 41.7 ng/mL Normal [facility] Comment on above: Performed By: #### F ERR, B12FOL, FETIBC, VITAD ####[facility] [address] [place] [address]Dr. Alysha Machuca VIT D RANGES SEE BELOW Normal [facility] Comment on above: Result Comment: <20 ng/mL Vit D deficient 20 - <30 ng/mL Vit D insufficient 30 - 100 ng/mL Vit D sufficient >100 ng/mL Potential Toxicity Performed By: #### F ERR, B12FOL, FETIBC, VITAD ####[facility] [address] [place] [address]DrMaite Machuca XR KUB 1 VIEWon 02-20-2023 XR [...] KYLE BLANC Date: 2023-02-20 15:[address] [facility] Office Visit (Cardiology)on 12-06-2022 Follow-up visit Diagnoses/Problems Assessed Anticoagulated (V58.61) (Z79.01) Hyperlipidemia (272.4) (E78.5) Non-ischemic cardiomyopathy (425.4) (I42.8) Paroxysmal atrial fibrillation (427.31) (I48.0) Class 2 obesity with body mass index (BMI) of 36.0 to 36.9 in adult (278.00,V85.36) (E66.9,Z68.36) Never a smoker Orders Class 2 obesity with body mass index (BMI) of 36.0 to 36.9 in adult Healthy Weight Tips; Status:Complete; Done: [id number] Some eating tips that can help you lose weight.; Status:Complete; Done: 06Pwg1972 Hyperlipidemia Renew: Lovastatin 10 MG Oral Tablet; TAKE 1 TABLET DAILY DIRECTED Paroxysmal atrial fibrillation IO EKG Electrocardiogram- 12 Lead; Status:Complete; Done: 60Nmc7860 SocHx: Never a smoker Tobacco Use Screening; Status:Complete; Done: 72Gon2572 Patient Instructions Please bring all medicines, vitamins, [...] MG Oral TabletTAKE 1 TABLET Twice daily Rubicon 3 CAPSTAKE DIRECTED. Tylenol Arthritis Ext Relief [...] Signs Recorded: 06Dec2022 01:27PM Heart Rate43, Apical Qxqyxpcf402, RUE, Sitting Dcpgkhvlk63, RUE, Sitting Height5 ft 5 in Swhjrk553 lb BMI Gaajrqzscd63.94 kg/m2 BSA Calculated2.07 Tobacco Useb) No PHQ-2 [...] Screening.on 023 Adult depression screening assessment No [facility] y [facility] DO Work Phone: Fall risk assessment a) No falls within the last year [facility] DO Work Phone: Tobacco use status CPHS b) No [facility] 250 DO Work Phone: VC INJ SCL EDMOND DOCENT COORDINATOR VEINSon 0 11-03-2022 VC INJ SCL EDMOND DOCENT COORDINATOR VEINS Patient: MIKY FUENTES Exam Date: 11/03/2022 : 1950 Gender:F Ordering : DR WILLARD GAMBOA M.D. Admission #: [id number] Family : Order #: [id number] CLICK HERE TO VIEW EXAM RADIOLOGY REPORT PROCEDURE: VEIN CENTER INJECTION SCLEROSING SOLUTION MULTIPLE VEINS SAME COMPARISON: VC INJ SCL EDMOND DOCENT COORDINATOR VEINS, 10/27/2022. VC INJ SCL EDMOND DOCENT COORDINATOR VEINS, 10/16/2022. INDICATIONS: Pain co-occurrent and due [...] Gamboa MD on 11/03/2022 at 12:37 Normal [facility] XR KUB 1 VIEWon 11-03-2022 XR KUB [...] by: KYLE BLANC Date: 2022-11-03 12:52 Normal [facility] VC INJ SCL EDMOND DOCENT COORDINATOR VEINSon 1 VC INJ SCL EDMOND DOCENT COORDINATOR VEINS Patient: MIKY FUENTES Exam Date: 10/27/2022 : 1950 Gender:F Ordering : DR WILLARD GAMBOA M.D. Admission #: [id number] Family : Order #: [id number] CLICK HERE TO VIEW EXAM RADIOLOGY REPORT PROCEDURE: VEIN CENTER INJECTION SCLEROSING SOLUTION MULTIPLE VEINS SAME COMPARISON: VC INJ SCL EDMOND DOCENT COORDINATOR VEINS, 10/16/2022. VC INJ SCL EDMOND DOCENT COORDINATOR VEINS, 10/06/2022. INDICATIONS: Pain co-occurrent and due [...] Gamboa MD on 10/27/2022 at 11:46 Normal [facility] VC INJ SCL EDMOND DOCENT COORDINATOR VEINSon 1 12-17-2021 VC INJ SCL EDMOND DOCENT COORDINATOR VEINS Patient: MIKY FUENTES Exam Date: 10/16/2022 : 1950 Gender:F Ordering : DR WILLARD GAMBOA M.D. Admission #: [id number] Family : Order #: [id number] CLICK HERE TO VIEW EXAM RADIOLOGY REPORT PROCEDURE: VEIN CENTER INJECTION SCLEROSING SOLUTION MULTIPLE VEINS SAME COMPARISON: VC INJ SCL EDMOND DOCENT COORDINATOR VEINS, 10/06/2022. INDICATIONS: Pain co-occurrent and due [...] Blanc M.D. on 10/17/2022 at 08:12 Normal [facility] CREATININEon 10-10-2022 Creatinine [Mass/Vol] 1.11 mg/dL Critically high 0.55-1.02 [facility] Comment on above: Performed By: #### C AIYANA ####[facility] [address] [address]Dr. Easleydarrel Sven EGFR-AF SAMMARINESE 59 mL/min/1.73m2 Critically low >=[address] [facility] Comment on above: Performed By: #### C AIYANA ####[facility] [address] [place], [place] [address]Eq. Alysha Machuca EGFR-NON AF SAMMARINESE 48 mL/min/1.73m2 Critically low >=60 [facility] Comment on above: Performed By: #### C AIYANA ####[facility] [address] [place], [place] [address]Ml. Alysha Machuca VC INJ SCL EDMOND DOCENT COORDINATOR VEINSon 1 12-07-2021 VC INJ SCL EDMOND DOCENT COORDINATOR VEINS Patient: MIKY FUENTES Exam Date: 10/06/2022 : 1950 Gender:F Ordering : DR WILLARD GAMBOA M.D. Admission #: [id number] Family : Order #: [id number] CLICK HERE TO VIEW EXAM RADIOLOGY REPORT [...] Gamboa MD on 10/06/2022 at 13:45 Normal [facility] VC CONSULT FOLLOWUPon 2021 VC CONSULT FOLLOWUP Patient: MIKY FUENTES Exam Date: 09/26/2022 : 1950 Gender:F Ordering : DR WILLARD GAMBOA M.D. Admission #: [id number] Family : Order #: [id number] CLICK HERE TO VIEW EXAM RADIOLOGY REPORT [...] Blanc M.D. on 09/26/2022 at 15:46 Normal [facility] VC EXT VENOUS RT LIMITEDon 1 11-26-2021 VC EXT VENOUS RT LIMITED Patient: MIKY FUENTES Exam Date: 09/26/2022 : 1950 Gender:F Ordering : DR WILLARD GAMBOA M.D. Admission #: [id number] Family : Order #: [id number] CLICK HERE TO VIEW EXAM RADIOLOGY REPORT [...] M.D. on 09/26/2022 at 15:[address] [facility] VC INJ FOAM SCLERO W US MLTI on 09-20-2022 VC INJ FOAM SCLERO W US MLTI Patient: MIKY FUENTES Exam Date: 09/20/2022 : 1950 Gender:F Ordering : DR WILLRAD GAMBOA M.D. Admission #: [id number] Family : Order #: [id number] CLICK HERE TO VIEW EXAM RADIOLOGY REPORT [...] Blanc M.D. on 09/20/2022 at 15:43 Normal [facility] VC CONSULT FOLLOWUPon 2021 VC CONSULT FOLLOWUP Patient: MIKY FUENTES Exam Date: 09/07/2022 : 1950 Gender:F Ordering : DR WILLARD GAMBOA M.D. Admission #: [id number] Family : Order #: [id number] CLICK HERE [...] Gamboa MD on 09/07/2022 at 13:04 Normal [facility] VC EXT VENOUS LT LIMITEDon 1 11-07-2021 VC EXT VENOUS LT LIMITED Patient: MIKY FUENTES Exam Date: 09/07/2022 : 1950 Gender:F Ordering : DR WILLARD GAMBOA M.D. Admission #: [id number] Family : Order #: [id number] CLICK HERE TO VIEW EXAM RADIOLOGY REPORT [...] MD on 09/07/2022 at 11:[address] [facility] CBC AUTO DIFFon 09-01-2022 BASO # 0.0 103/ul Normal 0.0-0.[address] [facility] Comment on above: Performed By: #### C BC #### [facility] [address] [place] [address] Dr. Alysha Machuca Basophils/100 WBC (Bld) 0.6 % Normal 0.2-2.[address] [facility] Comment on above: Performed By: #### C BC #### [facility] [address] [place] [address] Dr. Alysha Machuca EO # 0.3 103/ul Normal 0.0-0.[address] [facility] Comment on above: Performed By: #### C BC #### [facility] [address] [place] [address] Dr. Alysha Machuca Eosinophils/100 WBC (Bld) 4.3 % Normal 0.9-7.0 [facility] Comment on above: Performed By: #### C BC #### [facility] [address] [place] [address] Dr. Alysha Machuca Erythrocyte distribution width (RBC) [Ratio] 14.6 % Normal 11.0-15.0 [facility] Comment on above: Performed By: #### C BC #### [facility] [address] [place] [address] Dr. Alysha Machuca Hematocrit (Bld) [Volume fraction] 39.7 % Normal 36.0-48.0 [facility] Comment on above: Performed By: #### C BC #### [facility] [address] [place] [address] Dr. Alysha Machuca Hemoglobin (Bld) [Mass/Vol] 13.1 g/dL Normal 12.0-16.0 [facility] Comment on above: Performed By: #### C BC #### [facility] [address] [place] [address] Dr. Alysha Machuca IG # 0.01 10e3/ul Normal 0.00-0.03 [facility] Comment on above: Performed By: #### C BC #### [facility] [address] [place] [address] Dr. Alysha Machuca IG % 0.2 % Normal 0.0-0.5 [facility] Comment on above: Performed By: #### C BC #### [facility] [address] [place] [address] Dr. Alysha Machuca LYMPH # 1.9 103/ul Normal 1.2-3.8 [facility] Comment on above: Performed By: #### C BC #### [facility] [address] [place] [address] Dr. Alysha Machuca Lymphocytes/100 WBC (Bld) 29.5 % Normal 20.5-60.0 [facility] Comment on above: Performed By: #### C BC #### [facility] [address] [place] [address] Dr. Alysha Machuca MANUAL DIFF REQ NO Normal [facility] Comment on above: Performed By: #### C BC #### [facility] [address] [place] [address] Dr. Alysha Machuca MCH (RBC) [Entitic mass] 29.8 pg Normal 26.7-34.[address] [facility] Comment on above: Performed By: #### C BC #### [facility] [address] [address] [address] Alysha Machuca MCHC (RBC) [Mass/Vol] 33.0 g/dL Normal 29.9-35.2 [facility] Comment on above: Performed By: #### C BC #### [facility] [address] [address] [address] Alysha Machuca MCV (RBC) [Entitic vol] 90.2 fL Normal 81.0-99.0 [facility] Comment on above: Performed By: #### C BC #### [facility] [address] [place] [address] Dr. Alysha Machuca MONO # 0.5 103/ul Normal 0.3-0.8 [facility] Comment on above: Performed By: #### C BC #### [facility] [address] [place] [address] Dr. Alysha Machuca Monocytes/100 WBC (Bld) 7.0 % Normal 1.7-12.0 [facility] Comment on above: Performed By: #### C BC #### [facility] [address] [place] [address] Dr. Alysha Machuca NEUT # 3.8 103/ul Normal 1.4-6.5 [facility] Comment on above: Performed By: #### C BC #### [facility] [address] [place] [address] Dr. Alysha Machuca Neutrophils/100 WBC (Bld) 58.4 % Normal 43.0-75.[address] [facility] Comment on above: Performed By: #### C BC #### [facility] [address] [place] [address] Dr. Alysha Machuca Platelet mean volume (Bld) [Entitic vol] 9.5 fL Normal 9.5-13.[address] [facility] Comment on above: Performed By: #### C BC #### [facility] [address] [place] [address] Dr. Alysha Machuca PLT 235 103/ul Normal 150-[address] [facility] Comment on above: Performed By: #### C BC #### [facility] [address] [address] [address] Alysha Machuca RBC 4.40 106/ul Normal 4.20-5.[address] [facility] Comment on above: Performed By: #### C BC #### [facility] [address] [address] [address] Alysha Machuca WBC 6.6 103/ul Normal 4.0-11.[address] [facility] Comment on above: Performed By: #### C BC #### [facility] [address] [address] [address] Alysha Machuca PROF CHEM 8 (BAS METB)on Anion gap [Moles/Vol] 7.7 mmol/L Normal [facility] Comment on above: Performed By: #### B MP ####[facility] [address] [place] [address]DrMaite Machuca Calcium [Mass/Vol] 9.8 mg/dL Normal 8.5-10.[address] [facility] Comment on above: Performed By: #### B MP ####[facility] [address] [place] [address]Dr. Alysha Machuca Chloride [Moles/Vol] 104 mmol/L Normal 98-[address] [facility] Comment on above: Performed By: #### B MP ####[facility] [address] [place] [address]DrMaite Machuca CO2 [Moles/Vol] 29.2 mmol/L Normal 21.0-32.0 [facility] Comment on above: Performed By: #### B MP ####[facility] [address] [place] [address]Dr. Alysha Machuca Creatinine [Mass/Vol] 1.05 mg/dL Critically high 0.55-1.02 [facility] Comment on above: Performed By: #### B MP ####[facility] [address] [place] [address]Dr. Alysha Machuca EGFR-AF SAMMARINESE >60 Normal >=60 [facility] Comment on above: Performed By: #### B MP ####[facility] [address] [place] [address]Dr. Alysha Machuca EGFR-NON AF SAMMARINESE 52 mL/min/1.73m2 Critically low >=60 [facility] Comment on above: Performed By: #### B MP ####[facility] [address] [place] [address]Dr. Alysha Machuca Glucose [Mass/Vol] 107 mg/dL Critically high 74-[address] [facility] Comment on above: Performed By: #### B MP ####[facility] [address] [place] [address]Dr. Alysha Machuca Potassium [Moles/Vol] 3.9 mmol/L Normal 3.5-5.1 [facility] Comment on above: Performed By: #### B MP ####[facility] [address] [place] [address]Dr. Alysha Machuca Sodium [Moles/Vol] 137 mmol/L Normal 136-[address] [facility] Comment on above: Performed By: #### B MP ####[facility] [address] [place] [address]Dr. Alysha Machuca Urea nitrogen [Mass/Vol] 16.0 mg/dL Normal 7.0-18.0 [facility] Comment on above: Performed By: #### B MP ####[facility] [address] [place] [address]Dr. Alysha Machuca Urea nitrogen/Creatini ne [Mass ratio] 15.2 mg/mg Normal [facility] Comment on above: Performed By: #### B MP ####[facility] [address] [place] [address]Dr. Alysha Machuca VC INJ FOAM SCLERO W US MLTI on 08-31-2022 VC INJ FOAM SCLERO W US MLTI Patient: MIKY FUENTES Exam Date: 08/31/2022 : 1950 Gender:F Ordering : DR WILLARD GAMBOA M.D. Admission #: [id number] Family : Order #: [id number] CLICK HERE TO VIEW EXAM RADIOLOGY REPORT [...] compressi (more content not included)... Normal [facility] VC CONSULT FOLLOWUPon 2021 VC CONSULT FOLLOWUP Patient: MIKY FUENTES Exam Date: 08/22/2022 : 1950 Gender:F Ordering : DR WILLARD GAMBOA M.D. Admission #: [id number] Family : Order #: [id number] CLICK HERE TO VIEW EXAM RADIOLOGY REPORT [...] MD on 08/22/2022 at 10:[address] [facility] VC EXT VENOUS RT LIMITEDon 1 VC EXT VENOUS RT LIMITED Patient: MIKY FUENTES Exam Date: 08/22/2022 : 1950 Gender:F Ordering : DR WILLARD GAMBOA M.D. Admission #: [id number] Family : Order #: [id number] CLICK HERE TO VIEW EXAM RADIOLOGY REPORT [...] Willard Gamboa MD on 08/22/2022 at 10:21 [facility] VC INJ FOAM SCLERO W US MLTI on 08-17-2022 VC INJ FOAM SCLERO W US MLTI Patient: MIKY FUENTES Exam Date: 08/17/2022 : 1950 Gender:F Ordering : DR WILLARD GMABOA M.D. Admission #: [id number] Family : Order #: [id number] CLICK HERE TO VIEW EXAM RADIOLOGY REPORT [...] take (more content not included)... Normal [facility] VC CONSULT FOLLOWUPon 2021 VC CONSULT FOLLOWUP Patient: MIKY FUENTES Exam Date: 08/07/2022 : 1950 Gender:F Ordering : DR WILLARD GAMBOA M.D. Admission #: [id number] Family : Order #: [id number] CLICK HERE TO VIEW EXAM RADIOLOGY REPORT [...] Gamboa MD on 08/07/2022 at 13:31 Normal [facility] VC EXT VENOUS LT LIMITEDon 1 VC EXT VENOUS LT LIMITED Patient: MIKY FUENTES Exam Date: 08/07/2022 : 1950 Gender:F Ordering : DR WLILARD GAMBOA M.D. Admission #: [id number] Family : Order #: [id number] CLICK HERE TO VIEW EXAM RADIOLOGY REPORT [...] MD on 08/07/2022 at 12:[address] [facility] VC INJ FOAM SCLERO W US MLTI on 08-01-2022 VC INJ FOAM SCLERO W US MLTI Patient: MIKY FUENTES Exam Date: 08/01/2022 : 1950 Gender:F Ordering : DR WILLARD GAMBOA M.D. Admission #: [id number] Family : Order #: [id number] CLICK HERE TO VIEW EXAM RADIOLOGY REPORT [...] compr (more content not included)... Normal [facility] VC CONSULT FOLLOWUPon 2021 VC CONSULT FOLLOWUP Patient: MIKY FUENTES Exam Date: 07/17/2022 : 1950 Gender:F Ordering : DR WILLARD GAMBOA M.D. Admission #: [id number] Family : Order #: [id number] CLICK HERE TO VIEW EXAM RADIOLOGY REPORT [...] Blanc M.D. on 07/17/2022 at 12:18 Normal [facility] VC EXT VENOUS RT LIMITEDon 0 07-17-2022 VC EXT VENOUS RT LIMITED Patient: MIKY FUENTES Exam Date: 07/17/2022 : 1950 Gender:F Ordering : DR WILLARD GAMBOA M.D. Admission #: [id number] Family : Order #: [id number] CLICK HERE TO VIEW EXAM RADIOLOGY REPORT [...] Kyle Blanc M.D. on 07/17/2022 at 12:14 [facility] VC INJ FOAM SCLERO W US MLTI on 07-12-2022 VC INJ FOAM SCLERO W US MLTI Patient: MIKY FUENTES Exam Date: 07/12/2022 : 1950 Gender:F Ordering : DR WILLARD GAMBOA M.D. Admission #: [id number] Family : Order #: [id number] CLICK HERE TO VIEW EXAM RADIOLOGY REPORT [...] da (more content not included)... Normal [facility] VC CONSULT FOLLOWUPon 2021 VC CONSULT FOLLOWUP Patient: MIKY FUENTES Exam Date: 06/30/2022 : 1950 Gender:F Ordering : DR WILLARD GAMBOA M.D. Admission #: [id number] Family : Order #: [id number] CLICK HERE TO VIEW EXAM RADIOLOGY REPORT [...] Gamboa MD on 06/30/2022 at 13:21 Normal [facility] VC EXT VENOUS LT LIMITEDon 0 06-30-2022 VC EXT VENOUS LT LIMITED Patient: MIKY FUENTES Exam Date: 06/30/2022 : 1950 Gender:F Ordering : DR WILLARD GAMBOA M.D. Admission #: [id number] Family : Order #: [id number] CLICK HERE TO VIEW EXAM RADIOLOGY REPORT [...] Gamboa MD on 06/30/2022 at 13:02 Normal [facility] ALBUMIN, RANDOM URINE W/CREA TININEon 06-26-2022 ALBUMIN, URINE 12.7 mg/dL Normal See Note: [facility] Comment on above: Result Comment: Refe rence Range: Reference Range Not established Performed By: #### 7 600, 496, 95716, 6517 #### [facility] [place] [address] Medical Device: Marek Subramanian MD ALBUMIN/CREATININ E RATIO, RANDOM [...] category. Performed By: #### 7 600, 496, 63636, 6517 #### [facility] [place] [address] Medical Device: Marek Subramanian MD Creatinine (U) [Mass/Vol] 205 mg/dL Normal 20-275 [facility] Comment on above: Performed By: #### 7 600, 496, 05525, 6517 #### [facility] [place] [address] Medical Device: Marek Subramanian MD [facility] 06-26-2022 Albumin [Mass/Vol] 3.9 g/dL Normal 3.6-5.1 [facility] Comment on above: Performed By: #### 7 600, 496, 60833, 6517 #### [facility] [place] [address] Medical Device: Marek Subramanian MD Albumin/Globulin [Mass ratio] 1.4 {ratio} Normal 1.0-2.5 [facility] Comment on above: Performed By: #### 7 600, 496, 67708, 6517 #### [facility] [place] [address] Medical Device: Marek Subramanian MD ALP [Catalytic activity/Vol] 106 U/L Normal 37-153 [facility] Comment on above: Performed By: #### 7 600, 496, 69813, 6517 #### [facility] of [place] [address] Medical Device: Marek Subramanian MD ALT [Catalytic activity/Vol] 10 U/L Normal 6-29 [facility] Comment on above: Performed By: #### 7 600, 496, 84389, 6517 #### [facility] of [address], [address] [place] [address] Medical Device: Marek Subramanian MD AST [Catalytic activity/Vol] 13 U/L Normal 10-35 [facility] Comment on above: Performed By: #### 7 600, 496, 18541, 6517 #### [facility] of [place] [address] Medical Device: Marek Subramanian MD Bilirubin [Mass/Vol] 0.8 mg/dL Normal 0.2-1.2 [facility] Comment on above: Performed By: #### 7 600, 496, 33251, 6517 #### [facility] of [place] [address] Medical Device: Marek Subramanian MD BUN/CREATININE RATIO NOT APPLICABLE Normal 6-22 [facility] Comment on above: Performed By: #### 7 600, 496, 75629, 6517 #### [facility] [place] [address] Medical Device: Marek Subramanian MD Calcium [Mass/Vol] 9.9 mg/dL Normal 8.6-10.4 [facility] Comment on above: Performed By: #### 7 600, 496, 74116, 6517 #### [facility] [place] [address] Medical Device: Marek Subramanian MD Chloride [Moles/Vol] 109 mmol/L Normal 98-110 [facility] Comment on above: Performed By: #### 7 600, 496, 77128, 6517 #### [facility] [place] [address] [place] [address] Medical Device: Marek Subramanian MD CO2 [Moles/Vol] 24 mmol/L Normal 20-32 [facility] Comment on above: Performed By: #### 7 600, 496, 14098, 6517 #### [facility] [address], [address] [place] [address] Medical Device: Marek Subramanian MD Creatinine [Mass/Vol] 0.88 mg/dL Normal 0.60-1.00 [facility] Comment on above: Performed By: #### 7 600, 496, 30664, 6517 #### [facility] [address], [address] [place] [address] Medical Device: Marek Subramanian MD GFR/1.73 sq M.predicted among non-blacks MDRD (S/P/Bld) [Vol rate/Area] 70 mL/min/{1.73_m2} Normal > OR = 60 [facility] Comment on above: Result Comment: The eGFR is based on the CKD-EPI 2020 equation. To calculate the new eGFR from a previous Creatinine or Cystatin C result, go to https://www.kidney.org/professionals/ kdoqi/gfr%5Fcalculator Performed By: #### 7 600, 496, 58929, 6517 #### [facility] [address], [address] [place] [address] Medical Device: Marek Subramanian MD Globulin (S) [Mass/Vol] 2.7 g/dL Normal 1.9-3.7 [facility] Comment on above: Performed By: #### 7 600, 496, 66185, 6517 #### [facility] [address], [address] [place] [address] Medical Device: Marek Subramanian MD Glucose [Mass/Vol] 91 mg/dL Normal 65-99 [facility] Comment on above: Result Comment: Fasting reference interval Performed By: #### 7 600, 496, 22081, 6517 #### [facility] [address], [address] [place] [address] Medical Device: Marek Subramanian MD Potassium [Moles/Vol] 4.0 mmol/L Normal 3.5-5.3 [facility] Comment on above: Performed By: #### 7 600, 496, 00687, 6517 #### [facility] [address], [address] [place] [address] Medical Device: Marek Subramanian MD Protein [Mass/Vol] 6.6 g/dL Normal 6.1-8.1 [facility] Comment on above: Performed By: #### 7 600, 496, 88023, 6517 #### [facility] [place] [address] Medical Device: Marek Subramanian MD Sodium [Moles/Vol] 143 mmol/L Normal 135-146 [facility] Comment on above: Performed By: #### 7 600, 496, 50095, 6517 #### [facility] [place] [address] Medical Device: Marek Subramanian MD Urea nitrogen [Mass/Vol] 15 mg/dL Normal 7-25 [facility] Comment on above: Performed By: #### 7 600, 496, 36110, 6517 #### [facility] [place] [address] Medical Device: Marek Subramanian MD HEMOGLOBIN A1con 06-26-2022 HEMOGLOBIN [...] diagnosis of diabetes in children. According to [place] Diabetes Association (ADA) guidelines, hemoglobin A1c <7.0% represents optimal control in non- diabetic patients. Different metrics may apply to specific patient populations. Standards of Medical Care in Diabetes(ADA). Performed By: #### 7 600, 496, 45921, 6517 #### [facility] [address], [address] [place] [address] Medical Device: Marek Subramanian MD LIPID PANEL, [facility] 05-30 Cholesterol [Mass/Vol] 171 mg/dL Normal <200 [facility] Comment on above: Order Comment: FASTI NG:YES FASTING: YES Performed By: #### 7 600, 496, 39441, 6517 #### [facility] [address], [address] [place] [address] Medical Device: Marek Subramanian MD Cholesterol in HDL [Mass/Vol] 60 mg/dL Normal > OR = 50 [facility] Comment on above: Order Comment: FASTI NG:YES FASTING: YES Performed By: #### 7 600, 496, 11199, 6517 #### [facility] [address], [address] [place] [address] Medical Device: Marek Subramanian MD Cholesterol in LDL [Mass/Vol] [...] LDL-C. Nikita RUSSELL et al. LEWIS. 2013;310(19): 1343-2867 (http://education.Niupai.BiddingForGood/faq/QKO153) Performed By: #### 7 600, 496, 17659, 6517 #### [facility] [address], [address] [place] [address] Medical Device: Marek Subramanian MD Cholesterol.total /Cholesterol in HDL [Mass ratio] 2.9 {ratio} Normal <5.0 [facility] Comment on above: Order Comment: FASTI NG:YES FASTING: YES Performed By: #### 7 600, 496, 08828, 6517 #### [facility] [address], [address] [place] [address] Medical Device: Marek Subramanian MD NON HDL CHOLESTEROL 111 mg/dL (calc) Normal <130 [facility] Comment on above: Order Comment: FASTI NG:YES FASTING: YES Result Comment: For patients with diabetes plus 1 major ASCVD risk factor, treating to a non-HDL-C goal of <100 mg/dL (LDL-C of <70 mg/dL) is considered a therapeutic option. Performed By: #### 7 600, 496, 27370, 6517 #### [facility] [address], [address] [place] [address] Medical Device: Marek Subramanian MD Triglyceride [Mass/Vol] 95 mg/dL Normal <150 [facility] Comment on above: Order Comment: FASTI NG:YES FASTING: YES Performed By: #### 7 600, 496, 15217, 6517 #### [facility] [address], [address] [place] [address] Medical Device: Marek Subramanian MD VC INJ FOAM SCLERO W US MLTI on 06-26-2022 VC INJ FOAM SCLERO W US MLTI Patient: MIKY FUENTES Exam Date: 06/26/2022 : 1950 Gender:F Ordering : DR WILLARD GAMBOA M.D. Admission #: [id number] Family : Order #: [id number] CLICK HERE TO VIEW EXAM RADIOLOGY REPORT [...] vein medial distal lower leg/ankle. A large design technician vein was occluded with manual pressure until [...] varices, (more content not included)... Normal [facility] VC CONSULT FOLLOWUPon 2021 VC CONSULT FOLLOWUP Patient: MIKY FUENTES Exam Date: 06/19/2022 : 1950 Gender:F Ordering : DR WILLARD GAMBOA M.D. Admission #: [id number] Family : Order #: [id number] CLICK HERE TO VIEW EXAM RADIOLOGY REPORT [...] Blanc M.D. on 06/19/2022 at 12:14 Normal [facility] VC EXT VENOUS RT LIMITEDon 0 06-19-2022 VC EXT VENOUS RT LIMITED Patient: MIKY FUENTES Exam Date: 06/19/2022 : 1950 Gender:F Ordering : DR WILLARD GAMBOA M.D. Admission #: [id number] Family : Order #: [id number] CLICK HERE TO VIEW EXAM RADIOLOGY REPORT [...] Blanc M.D. on 06/19/2022 at 12:11 Normal [facility] VC INJ FOAM SCLERO W US MLTI on 06-13-2022 VC INJ FOAM SCLERO W US MLTI Patient: MIKY FUENTES Exam Date: 06/13/2022 : 1950 Gender:F Ordering : DR WILLARD GAMBOA M.D. Admission #: [id number] Family : Order #: [id number] CLICK HERE TO VIEW EXAM CORRECTION made [...] Kyle Blanc M.D. on 06/19/2022 at 12:17 [facility] VC CONSULT FOLLOWUPon 2021 VC CONSULT FOLLOWUP Patient: MIKY FUENTES Exam Date: 05/31/2022 : 1950 Gender:F Ordering : DR WILLARD GAMBOA M.D. Admission #: [id number] Family : Order #: [id number] CLICK HERE TO VIEW EXAM RADIOLOGY REPORT [...] Blanc M.D. on 05/31/2022 at 12:18 Normal [facility] VC EXT VENOUS LT LIMITEDon 0 05-31-2022 VC EXT VENOUS LT LIMITED Patient: MIKY FUENTES Exam Date: 05/31/2022 : 1950 Gender:F Ordering : DR WILLARD GAMBOA M.D. Admission #: [id number] Family : Order #: [id number] CLICK HERE TO VIEW EXAM RADIOLOGY REPORT [...] Blanc M.D. on 05/31/2022 at 12:13 Normal [facility] CT ABD/PELVIS WO CONon 05-26 CT ABD/PELVIS [...] by: SANTHOSH NICK Date: 2022-05-26 16:43 Normal [facility] VC ENDOVENOUS ABL 1ST V LTon 05-23-2022 VC ENDOVENOUS ABL 1ST V LT Patient: MIKY FUENTES Exam Date: 05/23/2022 : 1950 Gender:F Ordering : DR WILLARD GAMBOA M.D. Admission #: [id number] Family : Order #: [id number] CLICK HERE TO VIEW EXAM RADIOLOGY REPORT PROCEDURE: VEIN CENTER ENDOVENOUS ABLATION FIRST VEIN LEFT COMPARISON: VC ENDOVENOUS ABL 1ST V LT, 02/08/2022. INDICATIONS: Pain co-occurrent and due to varicose veins of bilateral legs I83.813 OPERATIVE REPORT: The risks and benefits of the procedure had been previously discussed, and were rediscussed at length. Informed written consent was obtained by dc and Braxton Herrera assisted. Time out procedure [...] Kyle Blanc M.D. on 05/23/2022 at 12:34 [facility] US KIDNEYSon 05-05-2022 US KIDNEYS EXAMINATION: [...] by: WILLARD GAMBOA Date: 2022-05-05 13:29 Normal [facility] XR KUB 1 VIEWon 05-05-2022 XR KUB [...] by: KYLE BLANC Date: 2022-05-05 15:54 Normal [facility] MAMM SCREEN 3D TANMAY CADon 05-04-2022 MAMM SCREEN 3D TANMAY CAD Patient: MIKY FUENTES Exam Date: 05/04/2022 : 1950 Gender:F Ordering : DR CONNOR JEAN BAPTISTE Admission #: [id number] Family : Order #: [id number] CLICK HERE TO VIEW EXAM RADIOLOGY REPORT [...] colon cancer at age 60. LOCATION: [facility] BREAST COMPOSITION: Scattered areas fibroglandular density. [...] M.D. on 05/05/2022 at 14:[address] [facility] VC CONSULT FOLLOWUPon 2021 VC CONSULT FOLLOWUP Patient: MIKY FUENTES Exam Date: 05/04/2022 : 1950 Gender:F Ordering : DR WILLARD GAMBOA M.D. Admission #: [id number] Family : Order #: [id number] CLICK HERE TO VIEW EXAM RADIOLOGY REPORT [...] Blanc M.D. on 05/04/2022 at 11:43 Normal [facility] VC EXT VENOUS RT LIMITEDon 0 05-04-2022 VC EXT VENOUS RT LIMITED Patient: MIKY FUENTES Exam Date: 05/04/2022 : 1950 Gender:F Ordering : DR WILLARD GAMBOA M.D. Admission #: [id number] Family : Order #: [id number] CLICK HERE TO VIEW EXAM RADIOLOGY REPORT [...] Blanc M.D. on 05/04/2022 at 11:17 Normal [facility] CULTURE URINEon 05-03-2022 CULTURE URINE Culture Observations : LIGHT GROWTH OF MIXED GENITAL LUDWIN. NO POTENTIAL PATHOGENS SEEN. Normal [facility] Comment on above: Performed By: #### U RCX ####[facility] [id number] [place] [address]Dr. Alysha Machuca UA RANDOMon 05-03-2022 Bilirubin Ql (U) Negative Normal NEGATIVE [facility] Comment on above: Performed By: #### U A #### [facility] [address] [place] [address] Dr. Alysha Machuca Clarity (U) TURBID Abnormal CLEAR [facility] Comment on above: Performed By: #### U A #### [facility] [address] [place] [address] Dr. Alysha Machuca Color (U) RED Abnormal YELLOW [facility] Comment on above: Result Comment: Prev iously reported as: YELLOW On 05/03/2022 17:30 By CV2 Performed By: #### U A #### [facility] [address] [place] [address] Dr. Alysha Machuca Glucose Ql (U) Negative Normal NEGATIVE [facility] Comment on above: Performed By: #### U A #### [facility] [address] [place] [address] Dr. Alysha Machuca Hemoglobin Ql (U) LARGE Abnormal NEGATIVE [facility] Comment on above: Performed By: #### U A #### [facility] [address] [place] [address] Dr. Alysha Machuca Ketones Ql (U) Negative Normal NEGATIVE [facility] Comment on above: Performed By: #### U A #### [facility] [address] [place] [address] Dr. Alysha Machuca LEUKOCYTES Negative Normal NEGATIVE [facility] Comment on above: Performed By: #### U A #### [facility] [address] [place] [address] Dr. Alysha Machuca Nitrite Ql (U) Negative Normal NEGATIVE [facility] Comment on above: Performed By: #### U A #### [facility] [address] [place] [address] Dr. Alysha Machuca pH (U) 6.0 [pH] Normal 5-[address] [facility] Comment on above: Performed By: #### U A #### [facility] [address] [place] [address] Dr. Alysha Machuca SPEC GRAVITY 1.025 Normal 1.005-<=1.025 [facility] Comment on above: Performed By: #### U A #### [facility] [address] [place] [address] Dr. Alysha Machuca UA PROTEIN 100 mg/dl Abnormal NEGATIVE/ TRACE [facility] Comment on above: Performed By: #### U A #### [facility] [address] [place] [address] Dr. Alysha Machuca Urobilinogen Qn (U) 0.2 {Luis'U}/dL Normal 0.2 - 1.0 [facility] Comment on above: Performed By: #### U A #### [facility] [address] [place] [address] Dr. Alysha Machuca VC ENDOVENOUS ABL 1ST V RTon 04-26-2022 VC ENDOVENOUS ABL 1ST V RT Patient: MIKY FUENTES Exam Date: 04/26/2022 : 1950 Gender:F Ordering : DR WILLARD GAMBOA M.D. Admission #: [id number] Family : Order #: [id number] CLICK HERE TO VIEW EXAM RADIOLOGY REPORT [...] Gamboa MD on 04/26/2022 at 10:58 Normal [facility] VC CONSULT FOLLOWUPon 2021 VC CONSULT FOLLOWUP Patient: MIKY FUENTES Exam Date: 04/13/2022 : 1950 Gender:F Ordering : DR WILLARD GAMBOA M.D. Admission #: [id number] Family : Order #: [id number] CLICK HERE TO VIEW EXAM RADIOLOGY REPORT [...] Blanc M.D. on 04/13/2022 at 10:59 Normal [facility] VC EXT VENOUS LT LIMITEDon 0 04-13-2022 VC EXT VENOUS LT LIMITED Patient: MIKY FUENTES Exam Date: 04/13/2022 : 1950 Gender:F Ordering : DR WILLARD GAMBOA M.D. Admission #: [id number] Family : Order #: [id number] CLICK HERE TO VIEW EXAM RADIOLOGY REPORT [...] M.D. on 04/13/2022 at 10:[address] [facility] Office Visit (Cardiology)on 03-22-2022 Follow-up visit [...] IO EKG Electrocardiogram- 12 Lead; Status:Complete; Done: [id number] SocHx: Never a smoker Tobacco Use Screening; Status:Complete; Done: [id number] Patient Instructions By signing my name below, [...] failure. With guideline directed therapy in the mosque of maintenance of sinus rhythm her symptoms [...] Oral TabletTake 1 tablet twice a day Rubicon 3 CAPSTAKE DIRECTED. Tylenol Arthritis Ext Relief [...] Signs Recorded: 22Mar2022 02:06PM Heart Rate47, Apical Pxuxefqy298, RUE, Sitting Dbwvbbcyh88, RUE, Sitting Height5 ft 5 in Eqkxch583 lb 6.4 oz BMI Xyctjofgak51.17 kg/m2 BSA Calculated2.19 Tobacco Useb) No PHQ-2 [...] no murmurs (more content not included)... Normal [facility] Tobacco Screening.on 022 Adult depression screening assessment No [facility] [employer] 250 DO Work Phone: Fall risk assessment a) No falls within the last year [facility] [employer] 250 DO Work Phone: Tobacco use status [facility] b) No [facility] [employer] 250 DO Work Phone: VC ENDOVENOUS ABL PERFORATIN G LTon 03-22-2022 VC ENDOVENOUS ABL PERFORATING LT Patient: MIKY FUENTES Exam Date: 03/22/2022 : 1950 Gender:F Ordering : DR WILLARD GAMBOA M.D. Admission #: [id number] Family : Order #: [id number] CLICK HERE TO VIEW EXAM RADIOLOGY REPORT PROCEDURE: VEIN CENTER ENDOVENOUS ABLATION VEIN LEFT LEG COMPARISON: None. INDICATIONS: Pain co-occurrent and due to varicose veins of bilateral legs I83.813 OPERATIVE REPORT: Diagnosis: Superficial venous reflux, incompetent perforating veins Procedure: Endovenous laser ablation of the left design technician(s) Procedure: The patient was positioned supine on [...] MD (more content not included)... Normal [facility] KAL SCREEN, IFA, W/REFL TITE R/PATTERN [...] indicated. For additional information, please refer to http://education.ITDatabase/faq/YKD254 (This link is being provided for informational/ educational purposes only.) Performed By: #### 8 09, 8268, 4420, 21658, %[id number] #### [facility] [address], [address] [place], [place] [id number] Medical Device: Marek Subramanian MD ANTINUCLEAR ANTIBODIES TITER AND PATTERNon 10-01-2021 KAL PATTERN Nuclear, Centromere Abnormal [facility] Comment on above: Result Comment: Cent romere pattern is associated with limited cutaneous systemic sclerosis, CREST (Calcinosis, Raynaud's, Esophageal dysmotility, Sclerodactyly, Telangiectasia), primary biliary cholangitis (PBC), and other autoimmune diseases. AC-3: Centromere International Consensus on KAL Patterns (https://doi.org/10.1515/cfpy-6136-6425) Performed By: #### 8 09, 8268, 4420, 80945, %[id number] #### [facility] [address], [address] [place] [address] Medical Device: Marek Subramanian MD KAL PATTERN Nuclear, Homogeneous Abnormal [facility] Comment on above: Result Comment: Homo geneous pattern is associated with systemic lupus erythematosus (SLE), drug-induced lupus and juvenile idiopathic arthritis. AC-1: Homogeneous International Consensus on KAL Patterns (https://doi.org/10.1515/llem-6225-3014) Performed By: #### 8 09, 8268, 4420, 22460, %94551 #### [facility] [address], [address] [place] [address] Medical Device: Marek Subramanian MD KAL TITER > OR = 1:1280 Abnormal [facility] Comment on above: Result Comment: Refe rence Range <1:40 Negative 1:40-1:80 Low Antibody Level >1:80 Elevated Antibody Level Performed By: #### 8 09, 8268, 4420, 06306, %21059 #### [facility] [address], [address] [place] [address] Medical Device: Marek Subramanian MD KAL TITER 1:80 High [facility] Comment on above: Result Comment: A lo w level KAL titer may be present in pre- clinical autoimmune diseases and normal individuals. Reference Range <1:40 Negative 1:40-1:80 Low Antibody Level >1:80 Elevated Antibody Level Performed By: #### 8 09, 8268, 4420, 09448, %48546 #### [facility] [place] [address] Medical Device: Marek Subramanian MD C-REACTIVE PROTEINon 021 CRP [Mass/Vol] 13.4 mg/L High <8.0 [facility] Comment on above: Performed By: #### 8 09, 8268, 4420, 67679, %72855 #### [facility] [place] [address] Medical Device: Marek Subramanian MD RHEUMATOID ARTHRITIS DIAGNOS TIC PANEL 1on 10-01-2021 CYCLIC CITRULLINATED PEPTIDE (CCP) AB (IGG) <16 Normal [facility] Comment on above: Result Comment: Refe rence Range Negative: <20 Weak Positive: 20-39 Moderate Positive: 40-59 Strong Positive: >59 Performed By: #### 8 09, 8268, 4420, 37905, %17437 #### [facility] [place] [address] Medical Device: Marek Subramanian MD INTERPRETATION Normal [facility] Comment on above: Result Comment: These serologic results may be found in 10-20% of patients with polyarthritis that is clinically and radiologically indistinguishable from RA. Performed By: #### 8 09, 8268, 4420, 48441, %51273 #### [facility] [place] [address] Medical Device: Marek Subramanian MD RHEUMATOID FACTOR <14 Normal <14 [facility] Comment on above: Performed By: #### 8 09, 8268, 4420, 04734, %27474 #### [facility] [address] [address] Medical Device: Marek Subramanian MD SED RATE BY MODIFIED WESTERG RENon 10-01-2021 SED RATE BY MODIFIED WESTERGREN 51 mm/h High < OR = 30 [facility] Comment on above: Performed By: #### 8 09, 8268, 4420, 02767, %91313 #### [facility] [address], [address] [place] [address] Medical Device: Marek Subramanian MD Tobacco Screening.on 021 Fall risk assessment a) No falls [facility] the last [facility] Work Phone: Tobacco use status CP b) No -[facility] 600 DO Work Phone: Vital Signs Date Time Vital Sign Value Performing Clinician Facility 03-06-2024 09:31-0400 Body height 165.1 cm Nick Perez MD Work Phone: [facility] 03-06-2024 09:31-0400 Body mass index (BMI) [Ratio] 36.78 kg/m2 Nick Perez MD Work Phone: [facility] 03-06-2024 09:31-0400 Body weight 100.25 kg Nick Perez MD Work Phone: [facility] 03-06-2024 09:31-0400 Diastolic blood pressure 58 mm[Hg] Nick Perez MD Work Phone: [facility] 03-06-2024 09:31-0400 Heart rate 44 /min Nick Perez MD Work Phone: [facility] 03-06-2024 09:31-0400 Systolic blood pressure 104 mm[Hg] Nick Perez MD Work Phone: [facility] 12-06-2022 13:27-0500 Body height 165.1 cm Connor Jean Baptiste Work Phone: [facility] 250 DO Work Phone: 12-06-2022 13:27-0500 Body mass index (BMI) [Ratio] 36.94 kg/m2 Connor Marinelli Furlong Work Phone: [facility] 250 DO Work Phone: 12-06-2022 13:27-0500 Body surface area Derived from formula 2.07 m2 Connor Marinelli Furlong Work Phone: [facility] 250 DO Work Phone: 12-06-2022 13:27-0500 Body weight 100.7 kg Connor Marinelli Furlong Work Phone: [facility] 250 DO Work Phone: 12-06-2022 13:27-0500 Diastolic blood pressure 84 mm[Hg] Connor Marinelli Furlong Work Phone: [facility] 250 DO Work Phone: 12-06-2022 13:27-0500 Heart rate 43 /min Connor Marinelli Furlong Work Phone: [facility] 250 DO Work Phone: 12-06-2022 13:27-0500 Systolic blood pressure 130 mm[Hg] Connor Marinelli Furlong Work Phone: [facility] 250 DO Work Phone: 06-30-2022 11:43-0400 Blood Pressure Location Yehuda AVITIA [facility] 06-30-2022 11:43-0400 Diastolic blood pressure 69 mm[Hg] Yehuda AVITIA [facility] 06-30-2022 11:43-0400 Heart rate 60 /min Yehuda AVITIA [facility] 06-30-2022 11:43-0400 Respiratory rate 16 /min Yehuda AVITIA [facility] 06-30-2022 11:43-0400 Systolic blood pressure 129 mm[Hg] Yehuda AVITIA [facility] 03-22-2022 14:06-0400 Body height 165.1 cm Connor G Furlong Work Phone: [facility] 250 DO Work Phone: 03-22-2022 14:06-0400 Body mass index (BMI) [Ratio] 42.17 kg/m2 Connor G Furlong Work Phone: [facility] 250 DO Work Phone: 03-22-2022 14:06-0400 Body surface area Derived from formula 2.19 m2 Connor G Furlong Work Phone: [facility] 250 DO Work Phone: 03-22-2022 14:06-0400 Body weight 114.94 kg Connor G Furlong Work Phone: [facility] 250 DO Work Phone: 03-22-2022 14:06-0400 Diastolic blood pressure 70 mm[Hg] Connor G Furlong Work Phone: [facility] 250 DO Work Phone: 03-22-2022 14:06-0400 Heart rate 47 /min Connor G Furlong Work Phone: [facility] 250 DO Work Phone: 03-22-2022 14:06-0400 Systolic blood pressure 114 mm[Hg] Connor G Furlong Work Phone: [facility] 250 DO Work Phone: 08-16-2021 14:38-0400 Body height 165.1 cm Connor Marinelli Furlong Work Phone: [facility] 600 DO Work Phone: 08-16-2021 14:38-0400 Body mass index (BMI) [Ratio] 42.53 kg/m2 Connor G Furlong Work Phone: [facility] [employer] 600 DO Work Phone: 08-16-2021 14:38-0400 Body surface area Derived from formula 2.2 m2 Connor G Furlong Work Phone: [facility] 600 DO Work Phone: 08-16-2021 14:38-0400 Body weight 115.94 kg Connor G Furlong Work Phone: [facility] 600 DO Work Phone: 08-16-2021 14:38-0400 Diastolic blood pressure 74 mm[Hg] Connor G Furlong Work Phone: [facility] 600 DO Work Phone: 08-16-2021 14:38-0400 Heart rate 44 /min Connor G Furlong Work Phone: [facility] 600 DO Work Phone: 08-16-2021 14:38-0400 Systolic blood pressure 134 mm[Hg] Connor G Furlong Work Phone: [facility] 600 DO Work Phone: Encounters Encounter Date Encounter Type Care Provider Facility Start: 08-14-2024 ambulatory Yehuda Vicente ty:CD:[id number] Start: 07-29-2024 ambulatory Radha Looney y:LEXI Mccartney Start: 07-15-2024 End: 07-15-2024 ambulatory Radha X Orzech Facility:[facility] Start: 07-01-2024 End: 07-01-2024 ambulatory Radha X Orzech Facility:[facility] Start: 07-01-2024 End: 07-01-2024 Patient encounter procedure Radha X Orzech [facility] Start: 06-10-2024 End: 06-10-2024 ambulatory Radha X Orzech Facility:[facility] Start: 06-10-2024 End: 06-10-2024 Patient encounter procedure Radha X Orzech [facility] Start: 05-20-2024 End: 05-20-2024 ambulatory Radha X Orzech Facility:[facility] Start: 05-20-2024 End: 05-20-2024 Patient encounter procedure Radha X Orzech [facility] Start: 05-16-2024 End: 05-16-2024 ambulatory Yehuda AVITIA Facility:[facility] Start: 05-16-2024 End: 05-16-2024 Patient encounter procedure Yehuda AVITIA [facility] Start: 03-26-2024 End: 03-26-2024 ambulatory LESVIA KEITA Not Available Start: 03-06-2024 End: 03-06-2024 ambulatory NICK PEREZ [facility] Ambulatory Start: 03-06-2024 End: 03-06-2024 Office outpatient visit 25 minutes Nick Perez MD Work Phone: [facility] Comment on above: Mixed hyperlipidemia (Primary Dx); Paroxysmal atrial fibrillation (Multi); Non-ischemic cardiomyopathy (Multi); Never smoked tobacco; BMI 36.0-36.9,adult; Hyperlipidemia, unspecified hyperlipidemia type Start: 02-18-2024 End: 02-19-2024 ambulatory [facility] Start: 02-18-2024 End: 02-18-2024 ambulatory [facility] Start: 12-24-2023 End: 12-24-2023 ambulatory [facility] Start: 12-13-2023 End: 12-13-2023 ambulatory Yehuda AVITIA Facility:[facility] Start: 12-13-2023 End: 12-13-2023 Patient encounter procedure Yehuda AVITIA [facility] Start: 10-26-2023 End: 10-26-2023 ambulatory Yehuda AVITIA Facility:[facility] Start: 10-09-2023 End: 10-09-2023 ambulatory DULCE ALCAZAR Facility:[facility] Start: 03-13-[address] WILLARD GAMBOA Facilit y:H1 Start: 03-05-2023 End: 03-06-[address] YEHUDA AVITIA . Facility:[facility]1 Start: 02-20-2023 End: 02-21-2023 ambulatory DOCTOR ORTIZ Facility:[facility]1 Start: 12-06-2022 ambulatory [facility] Facility: Start: 12-06-2022 Office outpatient vi sit 25 minutes Connor Joseph Jean Baptiste Work Phone: [facility] 250 DO Work Phone: Start: 11-20-2022 Rx Renewal Connor Joseph Chaitanya Work Phone: [facility] 250 DO Work Phone: Start: 11-03-2022 End: [...] preprocedural laboratory examination DR LESVIA COWAN [facility] Start: 09-05-2022 End: 09-05-2022 Patient encounter procedure Yehuda AVITIA [facility] Start: 09-01-2022 End: 09-02-[address] CONNOR JEAN BAPTISTE Facility:[facility]1 Start: 09-01-2022 End: 09-02-2022 Encounter for preprocedural laboratory examination DR CONNOR JEAN BAPTISTE Facility:[facility]1 Start: 08-31-2022 End: 09-01-[address] CONNOR JEAN BAPTISTE Facility:[facility]1 Start: 08-22-2022 Rx Renewal Connor nj Work Phone: [facility] 250 DO Work Phone: Start: 08-22-2022 End: 08-23-[address] CONNOR JEAN BAPTISTE Facility:[facility]1 Start: 08-17-2022 End: 08-18-[address] CONNOR JEAN BAPTISTE Facility:[facility]1 Start: 08-11-2022 End: 08-11-2022 Lab Drop off DORA ALCAZAR [facility] Start: 08-11-2022 End: 08-11-2022 Patient encounter procedure DORA ALCAZAR [facility] Start: 08-07-2022 End: 08-08-[address] WILLARD GAMOBA Facility:[facility]1 Start: 08-01-2022 End: 08-02-[address] WILLARD GAMBOA Facility:[facility]1 Start: 07-17-2022 End: 07-18-[address] WILLARD GAMBOA Facility:[facility]1 Start: 07-12-2022 End: 07-13-[address] WILLARD GAMBOA Facility:[facility]1 Start: 06-30-2022 End: 07-01-[address] WILLARD GAMBOA Facility:[facility]1 Start: 06-30-2022 End: 06-30-2022 Patient encounter procedure Yehuda Haddad [place] [facility] Start: 06-26-2022 End: 06-27-[address] WILLARD [...] Facility:[facility]1 Start: 03-22-2022 ambulatory Connor Jean Baptiste Facility:[id number] Start: 03-22-2022 Office outpatient vi sit 25 minutes Connor Jean Baptiste Work Phone: [facility] 250 DO Work Phone: Start: 03-22-2022 End: 03-23-[address] WILLARD GAMBOA Facility:[facility]1 Start: 01-31-2022 ambulatory Connor Jean Baptiste Facility:[id number] Start: 12-07-2021 Rx Renewal Connor Tavares ng Work Phone: [facility] 250 DO Work Phone: Start: 08-16-2021 Office outpatient vi sit 15 minutes Connor Jean Baptiste Work Phone: [facility] [employer] 600 DO Work Phone: Imaging result normal Connor castellon Work Phone: [facility] [employer] 250 DO Work Phone: Patient encounter status Connor Jean Baptiste Work Phone: [facility] [employer] 600 DO Work Phone: Procedures Date Procedure [...] DTaP/Tdap/Td Vaccines (3 - Td or Tdap) [facility] Start: 08-28-2024 End: 08-28-2024 Patient encounter procedure 08/28/2024 10:40 AM EDT Office Visit [address] [place] [address] [place] [address] Carmen Chi MD [address] [facility] [address], [place] [address] [place] [address] [facility] Start: 07-26-2024 Screening for malign ant neoplasm of breast Mammogram [facility] Start: 03-01-2024 COVID-19 Vaccine ( season) COVID-19 Vaccine ( season) [facility] Start: 01-29-2024 FUV, Provider: Nick Perez, Status: Pen, Time: 11:20 AM FUV, Provider: Nick Perez, Status: Pen, Time: 11:20 AM [facility] [employer] 250 DO Work Phone: Start: 12-06-2022 FUV, Provider: Nick Perez, Status: Pen, Time: 1:10 PM FUV, Provider: Nick Perez, Status: Pen, Time: 1:10 PM [facility] [employer] 250 DO Work Phone: Start: 01-31-2022 FUV, Provider: Nick Sarkar, Status: Pen, Time: 2:20 PM FUV, Provider: Nick Sarkar, Status: Pen, Time: 2:20 PM [facility] [employer] 250 DO Work Phone: Start: 2010 RSV patient s and/or patients aged 60+ years (1 - 1-dose 60+ series) RSV patients and/or patients aged 60+ years (1 - 1-dose 60+ series) [facility] Start: 1968 Diabetes mellitus screening Diabetes Screening [facility] Start: 1968 [facility] Start: 1950 Lipid panel Lipid Panel [facility] Start: 1950 Medicare Annual Well ness Visit Medicare Annual Wellness Visit (AWV) [facility] Start: 1950 Screening for malign ant neoplasm of colon [facility] Start: 1950 Screening for osteoporosis Bone Density Scan [facility] Start: 1950 Thyroid stimulating hormone measurement TSH Level [facility] Immunizations Immunization Date Immunization Notes Care Provider Karlee rubio 02-20-2023 tetanus toxoid, redu mariano diphtheria toxoid, and acellular pertussis vaccine, adsorbed Yehuda AVITIA [facility] 10-15-2022 Fluzone High-Dose Quadrivalent 0.7 ML Intramuscular Suspension Prefilled Syringe Connor Jean Baptiste Work Phone: [facility] 250 DO Work Phone: 10-15-2022 influenza virus vacc ine, unspecified formulation Yehuda AVITIA [facility] 10-15-2022 influenza, high dose seasonal, preservative-free Nick Perez MD Work Phone: [facility] Work Phone: 04-29-2022 Comirnaty 30 MCG/0.3 ML Intramuscular Suspension Connor Lewisclem Work Phone: [facility] 250 DO Work Phone: 04-29-2022 SARS-CoV-2 mRNA (hktpznygtzp-rgiv-hseuaj e) vaccine Yehuda AVITIA [facility] 09-08-2021 influenza virus vacc ine, unspecified formulation Yehuda AVITIA [facility] 08-29-2021 Fluzone High-Dose Quadrivalent 0.7 ML Intramuscular Suspension Prefilled Syringe Connor Lewisclem Work Phone: [place] [address] DO Work Phone: 08-29-2021 influenza virus vacc ine, unspecified formulation Yehuda AVITIA [facility] 08-29-2021 influenza, high dose seasonal, preservative-free Nick Perez MD Work Phone: [facility] Work Phone: 08-29-2021 Pfizer-BioNTech COVI D-19 Vacc 30 MCG/0.3ML Intramuscular Suspension Connor Jean Baptiste Work Phone: [facility] 12-23-2020 Pfizer-BioNTech COVI D-19 Vacc 30 MCG/0.3ML Intramuscular Suspension Connor G Furlong Work Phone: [facility] 12-01-2020 Pfizer-BioNTAmgen COVI D-19 Vacc 30 MCG/0.3ML Intramuscular Suspension Connor G Furlong Work Phone: [facility] 09-13-2020 pneumococcal polysaccharide vaccine, 23 valent Connor G Furlong Work Phone: [facility] 09-03-2020 influenza virus vacc ine, unspecified formulation Yehuda OssDsign AB [facility] 09-03-2020 influenza, high dose seasonal, preservative-free Nick Perez MD Work Phone: [facility] Work Phone: 09-03-2020 influenza, injectabl e, quadrivalent, contains preservative Connor G Furlong Work Phone: [facility] 600 DO Work Phone: 08-29-2020 influenza virus vacc ine, unspecified formulation A & A [employer] [facility] 08-29-2020 influenza, high dose seasonal, preservative-free Connor G Furlong Work Phone: [facility] 250 DO Work Phone: 08-29-2020 pneumococcal polysaccharide vaccine, 23 valent Connor G Furlong Work Phone: [facility] 08-11-2020 influenza virus vacc ine, unspecified formulation Yehuda OssDsign AB [facility] 08-11-2020 influenza, seasonal, injectable Connor G Furlong Work Phone: [facility] 600 DO Work Phone: 07-29-2020 influenza virus vacc ine, unspecified formulation Yehuda AVITIA [facility] 07-29-2020 influenza, seasonal, injectable Connor G Furlong Work Phone: [facility] 250 DO Work Phone: 09-02-2019 influenza virus vacc ine, unspecified formulation Yehuda AVITIA [facility] 09-02-2019 influenza, high dose seasonal, preservative-free Connor G Furlong Work Phone: [facility] 600 DO Work Phone: 08-29-2019 influenza virus vacc ine, unspecified formulation Connor G Furlong Work Phone: [facility] 08-11-2019 influenza virus vacc ine, unspecified formulation Yehuda AVITIA [facility] 06-17-2019 zoster vaccine recombinant Connor G Furlong Work Phone: [facility] 05-29-2019 zoster vaccine recombinant Connor G Furlong Work Phone: [facility] 04-15-2019 zoster vaccine recombinant Connor G Furlong Work Phone: [facility] 03-29-2019 zoster vaccine recombinant Connor G Furlong Work Phone: [facility] 08-29-2018 influenza virus vacc ine, unspecified formulation Connor G Furlong Work Phone: [facility] 250 DO Work Phone: 09-27-2017 influenza virus vacc ine, unspecified formulation Yehuda AVITIA [facility] 09-27-2017 Influenza, injectabl e, Madin [place] Canine Kidney, preservative free, quadrivalent Connor G Furlong Work Phone: [facility] 600 DO Work Phone: 09-26-2017 influenza virus vacc ine, unspecified formulation Connor G Furlong Work Phone: [facility] 250 DO Work Phone: 10-19-2016 influenza virus vacc ine, unspecified formulation A & A [employer] [facility] 10-19-2016 seasonal influenza, intradermal, preservative free Connor G Furlong Work Phone: [facility] 600 DO Work Phone: 10-06-2016 influenza virus vacc ine, unspecified formulation A & A [employer] [facility] 10-06-2016 influenza, seasonal, injectable, preservative free Connor G Furlong Work Phone: [facility] 600 DO Work Phone: 04-10-2016 pneumococcal conjuga te vaccine, 13 valent Connor G Furlong Work Phone: [facility] 04-06-2016 pneumococcal conjuga te vaccine, 13 valent Yehuda AVITIA [facility] 08-07-2014 influenza virus vacc ine, unspecified formulation Connor G Furlong Work Phone: [facility] 250 DO Work Phone: 08-07-2014 influenza, unspecifi ed formulation Yehuda OssDsign AB [facility] 07-29-2014 influenza virus vacc ine, unspecified formulation Connor Marinelli Furlong Work Phone: [facility] 250 DO Work Phone: 07-29-2014 pneumococcal polysaccharide vaccine, 23 valent Connor Marinelli Furlong Work Phone: [facility] 10-02-2013 pneumococcal conjuga te vaccine, 13 valent Connor Marinelli Furlong Work Phone: [facility] 02-14-2013 zoster vaccine, live Connor Marinelli Furlong Work Phone: [facility] 10-29-2012 influenza virus vacc ine, unspecified formulation Connor Marinelli Furlong Work Phone: [facility] 250 DO Work Phone: 10-29-2012 pneumococcal polysaccharide vaccine, 23 valent Connor Marinelli Furlong Work Phone: [facility] 250 DO Work Phone: 10-29-2010 pneumococcal polysaccharide vaccine, 23 valent Nick Perez MD Work Phone: [facility] Work Phone: 02-21-2010 pneumococcal polysaccharide vaccine, 23 valent Connor Marinelli Furlong Work Phone: [facility] 02-21-2010 tetanus toxoid, redu mariano diphtheria toxoid, and acellular pertussis vaccine, adsorbed Connor Marinelli Furlong Work Phone: [facility] 12-20-2009 novel influenza-H1N1 -09, preservative-free, injectable Connor Marinelli Furlong Work Phone: [facility] 600 DO Work Phone: 11-29-2009 novel influenza-H1N1 -09, preservative-free, injectable Connor TavaresRatify Work Phone: [facility] [employer] 250 DO Work Phone: 09-06-1999 TD(adult) unspecifie d formulation; Translations: [Td(adult) unspecified formulation] Connor TavaresRatify Work Phone: [facility] influenza virus vacc ine, unspecified formulation Connor LewisWengo Work Phone: [facility] [employer] 250 DO Work Phone: Comment on above: 2010Jul 2012 pneumococcal polysaccharide vaccine, 23 valent Connor LewisWengo [facility] Work Phone: Comment on above: 2010 Payers Date Payer Category Payer Medicare MEDICARE MEDICAR E PART A AND B [id number] 2015-Present [address] [place] [address] [id number] 2015 Unknown 2015 Unknown [id number] 1959 Medicare [id number] 1959 Unknown [id number] 1950 Unknown [id number] 2.16.840.1.338262.3.579.2.356 1950 Unknown [id number] 2.16.840.1.564571.3.579.2.356 1950 Unknown [id number] 2.16.840.1.291916.3.579.2.356 1950 Unknown [id number] 2.16.840.1.373481.3.579.2.593 1950 Unknown [id number] 2.16.840.1.676156.3.579.2.593 1950 Unknown [id number] 2.16.840.1.798795.3.579.2.593 1950 Unknown [id number] 2.16.840.1.286588.3.579.2.593 1950 Unknown [id number] 2.16.840.1.069719.3.579.2.593 1950 Unknown [id number] 2.16.840.1.531868.3.579.2.593 1950 Unknown [id number] 2.16.840.1.279144.3.579.2.593 1950 Unknown [id number] 2.16.840.1.718654.3.579.2.593 1950 Unknown [id number] 2.16.840.1.937553.3.579.2.593 1950 Unknown [id number] 2.16840.1.915158.3.579.2.593 1950 Unknown [id number] 2.16.840.1.145080.3.579.2.593 1950 Unknown [id number] 2.16.840.1.432079.3.579.2.593 1950 Unknown [id number] 2.16.840.1.309074.3.579.2.593 1950 Unknown [id number] 2.16.840.1.899834.3.579.2.593 1950 Unknown [id number] 2.16.840.1.357980.3.579.2.593 1950 Unknown [id number] 2.16.840.1.441899.3.579.2.593 1950 Unknown [id number] 2.16.840.1.075643.3.579.2.593 1950 Unknown [id number] 2.16.840.1.033641.3.579.2.593 1950 Unknown [id number] 2.16.840.1.853655.3.579.2.593 1950 Unknown [id number] 2.16.840.1.290809.3.579.2.593 1950 Unknown [id number] 2.16.840.1.599296.3.579.2.593 1950 Unknown [id number] 2.16.840.1.434573.3.579.2.593 1950 Unknown [id number] 2.16.840.1.845911.3.579.2.593 1950 Unknown [id number] 2.16.840.1.059005.3.579.2.593 1950 Unknown [id number] 2.16.840.1.558685.3.579.2.593 1950 Unknown [id number] 2.16.840.1.629743.3.579.2.593 1950 Unknown [id number] 2.16.840.1.622070.3.579.2.593 1950 Unknown [id number] 2.16.840.1.386301.3.579.2.593 1950 Unknown [id number] 2.16.840.1.504664.3.579.2.593 1950 Unknown [id number] 2.16.840.1.619899.3.579.2.593 1950 Unknown [id number] 2.16.840.1.237769.3.579.2.593 1950 Unknown [id number] 2.16.840.1.949773.3.579.2.593 1950 Unknown [id number] 2.16.840.1.871414.3.579.2.593 1950 Unknown [id number] 2.16.840.1.479158.3.579.2.593 1950 Unknown [id number] 2.16.840.1.021905.3.579.2.593 1950 Unknown [id number] 2.16.840.1.673847.3.579.2.1286 1950 Unknown [id number] 2.16.840.1.962422.3.579.2.1286 1950 Unknown [id number] 2.16.840.1.708362.3.579.2.1244 1950 Unknown [id number] 2.16.840.1.580516.3.579.2.1244 1950 Unknown [id number] 2.16.840.1.651823.3.579.2.9 1950 Unknown [id number] 2.16.840.1.245354.3.579.2.1259 1950 Unknown [id number] 2.16.840.1.535830.3.579.2. 1950 Unknown [id number] 2.16.840.1.495617.3.579.2. 1950 Unknown [id number] 2.16.840.1.537404.3.579.2. 1950 Unknown [id number] 2.16.840.1.754869.3.579.2.72 1950 Unknown [id number] 2.16.840.1.862753.3.579.2.72 1950 Unknown [id number] 2.16.840.1.365189.3.579.2.72 1950 Unknown [id number] 2.16.840.1.846280.3.579.2. 1950 Unknown [id number] 2.16.840.1.434892.3.579.2.727 1950 Unknown [id number] 2.16.840.1.925907.3.579.2. 1950 Unknown [id number] 2.16.840.1.898551.3.579.2.727 Social History Date Type Detail Facility Start: 03-06-2024 Never a smoker Never a smoker [facility] 600 DO Work Phone: Start: 12-28-2021 End: 10-26-2023 Tobacco smoking status Never smoked tobacco (finding) [facility] Tobacco smoking status Never [facility] Start: 03-06-2024 Sex Assigned At Female [facility] Start: 08-17-2023 Tobacco use and exposure Smokeless tobacco non-user [facility] Work Phone: Start: 03-06-2024 Alcoholic beverage intake Lifetime non-drinker (finding) [facility] Work Phone: Start: 1950 Sex assigned at Not on file [facility] Work Phone: Start: 02-25-2024 End: 03-06-2024 Exposure to SARS-CoV-2 (event) Not sure [facility] Functional Status Date Assessment Result Facility 08-24-2022 Functional Status N/A [facility] 06-30-2022 Functional Status N/A [facility] Clinical Notes 06-30-2022 to 07-15-2024 Nick Perez [...] these instructions at home: Medicines ? Take duto-cbm-blnaffz and prescription medicines only as told by [...] provider. Document Revised: 06/08/2023 Document Reviewed: 06/08/2023 Helpstream Patient Education ? 2023 SnappyTV. Hematuria, Adult Hematuria is blood in the [...] identify the cause (more content not included)... [facility] 03-06-2024 History of Present illness Narrative [place] [...] once daily., Disp: 90 tablet, Rfl: 3 xwwgmxux-rlv-hqve-FA-vit K-lut (Centrum Silver Women) 8 mg iron-400 mcg-50 mcg tablet, Take 1 tablet by mouth once daily., Disp: , Rfl: omega-3 fatty acids-fish oil (One-Per-Day Rubicon-3) 684-1,200 mg capsule, Take 1 capsule (1,200 [...] discussion and plan. documented in this encounter [facility] Work Phone: 03-06-2024 Instructions Ivett Mcpherson LPN [...] of your visit. documented in this encounter [facility] Work Phone: 09-05-2022 Hospital Discharge instructions Patient [...] [facility] [address] [place] [address]- Business (1) When:03/05/2023 12:06:31 [facility] 06-30-2022 Hospital Discharge instructions Patient Education 06/30/2022 12:01:44 Kidney Stones, Jmdh-gh-Mudi Kidney Stones Kidney stones are rock-like masses [...] Follow these instructions at home: Medicines Take sntf-bic-ebotrcr and prescription medicines only as told by [...] 04/02/2009 Document Revised: 03/02/2020 Document Reviewed: 03/02/2020 ElseNight Out Patient Education 2020 SnappyTV. Follow Up Care 12/28/2021 15:15:51 With:Yehuda AVITIA MD, URL Address: [address] [place] [address]- When: Unknown [facility] Evaluation + Plan note Future Appointments Appointment Date:03/02/2023 11:00:00 AM Scheduled Provider:Yehuda AVITIA MD Location:[facility] Appointment Type:URO Office Visit [facility] Evaluation + Plan note Future Appointments Appointment Date:03/02/2023 11:00:00 AM Scheduled Provider:Yehuda AVITIA MD Location:[facility] Appointment Type:URO Office Visit Diagnostic Tests PendingUrine Culture 08/11/22 [facility] Evaluation + Plan note Future Appointments Appointment Date:03/02/2023 11:00:00 AM Scheduled Provider:Yehuda AVITIA MD Location:[facility] Appointment Type:URO Office Visit Diagnostic Tests PendingUroVysion Fish and Urine Cyto ([facility]) 09/05/22 [facility] Evaluation + Plan note Future Appointments Appointment Date:05/16/2024 10:45:00 AM Scheduled Provider:Yehuda AVITIA MD Location:[facility] Appointment Type:URO Office Visit [facility] Evaluation + Plan note Future Appointments Appointment Date:05/20/2024 11:00:00 AM Scheduled Provider:RAAD Back APRN, [place] X Location:[facility] Appointment Type:URO Office Visit [facility] Evaluation + Plan note Future Appointments Appointment Date:06/10/2024 03:00:00 PM Scheduled Provider:RAAD Back APRN, [place] X Location:[facility] Appointment Type:URO Office Visit [facility] Evaluation + Plan note Future Appointments Appointment Date:07/01/2024 02:30:00 PM Scheduled Provider:RAAD Back APRN, [place] X Location:[facility] Appointment Type:URO Office Visit [facility] Evaluation note Diagnosis Mixed hyperlipidemia- Primary Paroxysmal atrial fibrillation (Multi) Atrial fibrillation Non-ischemic cardiomyopathy (Multi) Other primary cardiomyopathies Never smoked tobacco BMI 36.0-36.9,adult Hyperlipidemia, unspecified hyperlipidemia type documented in this encounter [facility] Work Phone: History of Present illness NarrativePatient returns in follow-up of problems as noted. In the interim she is done well. She has none of the symptoms of cardiomyopathy that preceded her original diagnosis of heart failure. With guideline directed therapy in the mosque of maintenance of sinus rhythm her symptoms [...] merits of diet exercise and weight loss. -[facility] 250 DO Work Phone: History of [...] the merits of diet and weight loss. [facility] 250 DO Work Phone: Hospital course Narrative No data available for this section [facility] Hospital Discharge instructions No data available for this section [facility] progress note No data available for this section [facility] Chief Complaint * I am doing ok [...] Lead Nick Perez MD [address] [facility] [place] [address] Referral ID Status Reason Start Date Expiration Date V isits Requested Visits Authorized [id number] Authorized 03/06/2024 03/06/2025 1 1 Specialty Diagnoses / Procedures Referred By Contac t Referred To Contact Cardiology Diagnoses Non-ischemic cardiomyopathy (Multi) Procedures Follow Up In Cardiology Nick Perez MD [address] [place] [address] Carmen Chi MD [address] [facility] [place] [address] Referral ID Status Reason Start Date Expiration Date V isits Requested Visits Authorized [id number] Authorized 03/06/2024 03/06/2025 1 1 Additional Source Comments INFORMATION SOURCE (unrecogn ized section and content) DATE CREATED AUTHOR 06/26/2022 [facility] DATE CREATED AUTHOR AUTHOR'S ORGANIZ ATION 12/07/2022 [facility] DATE CREATED AUTHOR AUTHOR'S ORGANIZ ATION 12/07/2022 [employer] DATE CREATED AUTHOR AUTHOR'S ORGANIZ ATION 03/09/2023 [facility] [place] [facility] DATE CREATED AUTHOR AUTHOR'S ORGANIZ ATION 02/18/2024 [facility] DATE CREATED AUTHOR AUTHOR'S ORGANIZ ATION 02/19/2024 [facility] DATE CREATED AUTHOR AUTHOR'S ORGANIZ ATION 03/08/2024 [facility] DATE CREATED AUTHOR AUTHOR'S ORGANIZ ATION 03/30/2024 [facility] EPIC DATE CREATED AUTHOR AUTHOR'S ORGANIZ ATION 07/17/2024 [facility] DATE CREATED AUTHOR AUTHOR'S ORGANIZ ATION 07/27/2024 [facility] Team (unrecognized sect ion and content) 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 Relationship Specialty Start Date End Date Connor Jean Baptiste DO [address] [facility], [place] [address] PCP - General 10/29/19 Reason for Visit (unrecogniz ed section and content) Reason Comments Follow-up 2mo Specialty Diagnoses / Procedures Referred By Isa t Referred To Contact Cardiology Diagnoses Paroxysmal atrial fibrillation (Multi) Procedures Follow Up In Cardiology Nick Perez MD [address] [address] Referral ID Status Reason Start Date Expiration Date V isits Requested Visits Authorized [id number] Authorized 12/24/2023 12/23/2024 1 1 FOR RECORDS [...] BE BASED ON THE PRIMARY CLINICAL RECORDS. [facility]. provides no warranty or guarantee of the accuracy or completeness of information in this document.
--- NOTE | 2024-08-05 15:05 | MM_ITS ---
Patient Name: MIKY NOLEN MR#: [id number] : 1950 Exam Date: 08/05/2024 Ordering Doctor: DR CORNEL ANAYA RADIOLOGY REPORT PROCEDURE: MM TOMOSYNTHESIS SCREENING BI COMPARISON: MM TOMOSYNTHESIS SCREENING BI, 07/27/2023. MG MAMM SCREEN 3D TANMAY CAD, 05/04/2022. MG MAMM SCREEN TANMAY W CAD, 12/28/2020. MG MAMM TANMAY SCRN W CAD DIG, 11/10/2013. INDICATIONS: Screening Calculator Name NCI Breast Cancer Risk Assessment Tool 5 Year Breast Cancer Risk 1.70% Lifetime Breast Cancer Risk 4.00% Personal Breast Cancer No Personal Ovarian Cancer No Treatments Hysterectomy, Oophrectomy Family Cancers Grandmother-maternal with throat,mouth cancer at age ~50; Brother with colon cancer at age ~60. LOCATION: [facility] BREAST COMPOSITION: There are scattered areas of fibroglandular density. FINDINGS: DIAGNOSTIC CATEGORY 2--BENIGN FINDING: RIGHT BREAST: No significant suspicious finding. Stable chronic small opacity within anterior lower-outer quadrant. No significant change has occurred. LEFT BREAST: No significant suspicious finding. No significant change has occurred. RECOMMENDATIONS: ROUTINE MAMMOGRAM AND CLINICAL EVALUATION IN 12 MONTHS. PLEASE NOTE: A NORMAL MAMMOGRAM DOES NOT EXCLUDE THE POSSIBILITY OF BREAST CANCER. A CLINICALLY SUSPICIOUS PALPABLE LUMP SHOULD BE BIOPSIED. Dictated by: Agusto Blanc M.D. on 08/06/2024 at 11:10 Approved by: Agusto Blanc M.D. on 08/06/2024 at 11:15
--- OUTSIDE RECORDS SUMMARY | 2024-08-05 15:18 | XMS_ITS | CCD ---
Author Organization [facility] Care Team Providers Care Cleaner Signs Name Role Phone Connor Jean Baptiste Unavailable Unavailable Unavailable CONNOR JEAN BAPTISTE Primary Care Physician Debra GOSS, Nick Dan Attending Unav ailable Debra GOSS, Nick Dan Referring Unav ailable [facility] U[facility]e Primary Care Unavailab le [...] WILLARD Pittman Admitting Unavailable WEST, DR WILLARD iPttman Attending Unavailable MISC, DOCTOR Admitting Unavailable MISC, [...] DR WILLARD Pittman Admitting Unavailable FURLONG, DR CONNRO Marinelli Primary Care Unavailable Zieber, Kyle Consulting [...] FURLONG, DR CONNOR Marinelli Primary Care Unavailable [place], DR WILLARD Pittman Consulting Unavailable [place], DR WILLARD Pittman Admitting Unavailable PENDLETON, DR CONNOR Marinelli Primary Care Unavailable [place], DR WILLARD Pittman Attending Unavailable MIS, DOCTOR Admitting Unavailable MISC, DOCTOR Attending Unavailable MISC, DOCTOR Consulting Unavailable [facility] CON[facility] Marinelli Primary Care Unavailable FURLONG, CONNOR Marinelli Attending Unavailable FURLONG, CONNOR Marinelli Referring Unavailable [facility] Marinelli Primary Care Unavailable [facility] Marinelli Referring Unavailable FURNG, CONNOR Marinelli Primary Care Unavailable [place] Connor ESCALANTE Primary Care Provider JR. CHAOP, LESVIA Iraheta Attending Unavaila analisa COWAN JR., LESVIA Iraheta Referring Unavaila ble Orzech, Radha X Admitting Unavailable Orzech, Radha X Attending Unavailable Orzech, Radha X Attending Unavailable Orzech, Radha X Attending Unavailable DULCE ALCAZAR Attending Unavailab le Yehuda AVITIA Attending Unavailable AVITIA, Yehuda Haddad Attending Unavailable AVITIAYehuda Attending Unavailable Orzech, Radha X Attending Unavailable Orzech, Radha X Attending Unavailable MCGNICK العراقي Attending Unavailable PENDLETON, CONNOR UGARTE Primary Care Unavailab NICK Rousseau Attending Unavailable PENDLETON, CONNOR UGARTE Primary Care Unavailab NICK Rousseau Referring Unavailable Orzech, Radha X Attending Unavailable Orzech, Radha X Admitting Unavailable Orzech, Radha X Attending Unavailable AVITIAYehuda Attending Unavailable Allergies Allergy Classification Reported Allergen(s) Allergy Type Date of Onset Reaction(s) Facility (20 sources) Ciprofloxacin; Translations: [ciprofloxacin] Drug Allergy 12-12-19 23 Eruption of skin (disorder), Unknown [facility] [place] (20 sources) Sulfonamides (Antibiotic); Translations: [Sulfa Drugs] Allergy to drug (finding) Eruption of skin (disorder) [facility] [place] (17 sources) corn extract; Translations: [Brazil] Drug Allergy 02-18-20 24 Unknown (qualifier value) [facility] (13 sources) Dog; Translations: [Dogs] Allergy to substance Unknown (qualifier value) [facility] (16 sources) Mold Extract; Translations: [mold] Drug Allergy 06-21-20 Unknown (qualifier value) [facility] (13 sources) Milk Products; Translations: [Milk Products] Food allergy Unknown (qualifier value) [facility] (13 sources) house dust mite allergen extract; Translations: [house dust mite allergen extra] Allergy to substance Unknown (qualifier value) [facility] (2 sources) Ciprofloxacin Drug Allergy 01-31-20 14 [facility] (1 source) house dust allergenic extract Drug Allergy [facility] (2 sources) Lactose Drug Allergy [facility] (1 source) Sulfonamides (Antibiotic) Drug allergy (disorder) [facility] (2 sources) Sulfamethoxazole / Trimethoprim; Translations: [SULFAMETHOXAZOLE-T RIMETHOPRIM] Drug Allergy 11-13-19 23 [facility] Rep[facility] (4 sources) Sulfonamides (Antibiotic); Translations: [SULFA (SULFONAMIDE ANTIBIOTICS)] Propensity to adverse reactions to drug (disorder) 06-21-20 Unknown [facility] Medications Current Medications Medication Drug Class(es) Dates Sig (Normalized) Sig (Original) 8 hr acetaminophen 650 mg extended release oral tablet (19 sources) Start: 07-01-2020 take 1 tablet by [...] split. Active allopurinol 300 mg oral tablet (19 sources) Xanthine Oxidase Inhibitor Start: 03-12-2024 take 1 tablet by mouth once daily allopurinol 300 mg Tab 300 mg = 1 tab(s), Oral, Daily, # 90 cap(s), Refills(s) 3, Pharmacy: [facility], 165, cm, 10/26/23 8:42:00 EST, Height/Length Dosing, 97.5, kg, 10/26/23 8:42:00 EST, Weight Dosing Start Date: 03/12/24 Status: Ordered Start: 02-02-2022 take 1 tablet by rosalinda th once daily allopurinol 300 mg Tab 300 mg = 1 tab(s), Oral, Daily, # 90 cap(s), Refills(s) 3, Pharmacy: [facility], 165, cm, 03/02/23 12:05:00 EDT, Height/Length Dosing, 113, kg, 03/02/23 12:05:00 EDT, Weight Dosing Start Date: 03/21/23 Status: Ordered Calcium Carbonate (18 sources) Start: 07-29-2019 take 1 tablet by [...] by mouth once daily. Active Centrum Silver (11 sources) Start: 2019 take 1 tablet by [...] daily. Active dronedarone 400 mg oral tablet (19 sources) Antiarrhythmic Start: 2018 take 400 mg by mouth twice daily Multaq 400 mg, Oral, BID, Refills(s) 0 Start Date: 07/29/19 Status: Ordered fexofenadine hydrochloride 60 mg oral tablet (1 source) Histamine-1 Receptor Antagonist take 1 tablet by mouth once daily fexofenadine (Hannah) 60 mg tablet Take 1 tablet (60 mg) by mouth once daily. Active lisinopril 2.5 mg oral tablet (14 sources) Angiotensin Converting Enzyme Inhibitor Start: 2021 [...] Discontinued (Other) lovastatin 10 mg oral tablet (16 sources) HMG-CoA Reductase Inhibitor Start: 03-06-2024 take 1 tablet by mouth once daily lovastatin (Mevacor) 10 mg tablet Indications: Hyperlipidemia, unspecified hyperlipidemia type Take 1 tablet (10 mg) by mouth once daily. 90 tablet 3 03/06/2024 Active Start: 03-02-2023 End: 03-06-2024 lovastatin 10 mg Tab Refills (s) 0 Start Date: 03/02/23 Status: Ordered take 1 tablet by rosalinda once daily Lovastatin 10 MG Oral Tablet TAKE 1 TABLET DAILY DIRECTED. Quantity: 90 Refills: 3 Ordered: 06-Dec-2022 Nick Peerz MD Active Abelino Krill Oil (4 sources) Start: 07-29-2019 take 1 capsule by mouth once daily Abelino Krill Oil Abelino Krill Oil, one cap., Oral, Daily Start Date: 07/29/19 Status: Ordered obxsherb-amt-makb-F A-vit K-lut (Centrum Silver Women) 8 mg iron-400 mcg-50 mcg tablet (1 source) take 1 tablet by mouth once daily muzsuwqk-xij-dovf-F A-vit K-lut (Centrum Silver Women) 8 mg iron-400 mcg-50 mcg tablet Take 1 tablet by mouth once daily. Active omega-3 fatty acids-fish oil (One-Per-Day Buckingham-3) 684-1,200 mg capsule (1 source) omega-3 fatty acids-fish oil (One-Per-Day [place]-3) 684-1,200 mg capsule Take 1 capsule (1,200 mg) by mouth once daily. Active OTC joint supplement (11 sources) Start: 07-01-2020 take 1 tablet [...] day. Active rivaroxaban 20 mg oral tablet (20 sources) Factor Xa Inhibitor Start: 03-06-2024 take [...] Start Date: 07/29/19 Status: Ordered Vitamin D3 (11 sources) Start: 07-29-2019 Vitamin D3 1,0 00 [...] procedure, # 2 cap(s), Refills(s) 0, Pharmacy: [facility], 165, cm, 06/30/22 11:48:00 EDT, Height/Length Dosing, 113, kg, 06/30/22 11:4... Start Date: 08/22/22 Status: Ordered Collagen Ultra Oral Capsule (7 sources) take 1 capsule by mouth once daily Collagen Ultra Oral Capsule TAKE 1 CAPSULE Daily Quantity: 0 Refills: 0 Ordered: 16-Aug-2021 DO Active K-Effervescent 25 mEq oral tablet, effervescent (7 sources) Start: 10-26-2023 take 1 tablet by mouth twice daily K-Effervescent 25 mEq oral tablet, effervescent 25 mEq = 1 tab(s), Oral, BID, # 60 tab(s), Refills(s) 11, Pharmacy: [facility], 165, cm, 10/26/23 8:42:00 EST, Height/Length Dosing, 97.5, kg, 10/26/23 8:42:00 EST, Weight Dosing Start Date: 10/26/23 Status: Ordered levothyroxine sodium 0.137 mg oral capsule (19 sources) l-Thyroxine Start: 07-29-2019 take 1 capsule by mouth once daily levothyroxine 137 mcg (0.137 mg) oral capsule 137 microgram = 1 cap(s), Oral, Daily Start Date: 07/29/19 Status: Ordered take 1 tablet by rosalinda th once daily before mealtime levothyroxine (Synthroid, Levoxyl) 137 m cg tablet Take 1 tablet (137 mcg) by mouth once daily in the morning. Take before meals. Active Buckingham 3 CAPS (7 sources) Buckingham 3 CAPS BASSAM E DIRECTED. Quantity: 0 Refills: 0 Ordered: 16-Aug-2021 DO Active Problems Active Problems Problem Classification Problem Date Documented Da te Episodic/Chronic Biliary tract disease (11 sources) Biliary calculus 12-07-2020 Episodic Calculus of [...] Onset: 02-18-2024 Chronic Diabetes mellitus without complication (12 sources) Diabetes mellitus; Translations: [Type 2 diabetes mellitus without complications] Onset: 02-24-2023 08-25-2019 Chronic Disorders of lipid metabolism (14 sources) Hyperlipidemia; Translations: [Other and unspecified hyperlipidemia] Onset: 08-17-2023 03-06-2024 Chronic Essential hypertension (12 sources) Hypertensive disorder; Translations: [Essential (primary) hypertension] Onset: 02-24-2023 08-25-2019 Chronic Genitourinary symptoms and ill-defined conditions (11 sources) Genuine stress incontinence 08-16-2020 Chronic Genitourinary symptoms and ill-defined conditions (20 sources) Microscopic hematuria; Translations: [Asymptomatic microscopic hematuria] Onset: 06-30-2022 Episodic Heart valve disorders (11 sources) Irregular heart beat 08-25-2019 Episodic Hypertension [...] conditions (not mental disorders or infectious disease) (15 sources) CT of abdomen abnormal; Translations: [Encounter [...] specified health status] Onset: 12-24-2023 03-06-2024 Episodic Septicemia (except in labor) (11 sources) Sepsis due to Enterobacter 08-16-2020 Episodic Thyroid disorders (20 sources) Hypothyroidism; Translations: [Unspecified acquired hypothyroidism] Onset: 02-20-2023 08-25-2019 Chronic Unclassified (11 sources) Asymptomatic microscopic hematuria 08-16-2020 Unclassified (11 sources) Drug therapy finding 10-20-2020 Unclassified (1 source) GASTR-ESOPH RFLX DS ESPHGTS W/O BLD; Translations: [GASTR-ESOPH RFLX DS ESPHGTS W/O BLD] Onset: 02-24-2023 Unclassified (7 sources) Obstructive hydronephrosis 10-26-2023 Urinary tract infections (12 sources) Urinary tract infectious disease; Translations: [Urinary tract infection, site not specified] Onset: 08-11-2022 08-16-2020 Episodic Past or Other Problems Problem Classification Problem Date Documented Da te Episodic/Chronic Other aftercare (4 sources) Encounter for surgical aftercare following surgery on the circulatory system; Translations: [ENC SURG AFTRCARE FLW SURG CIRC SYS] Onset: Episodic Other circulatory disease (8 sources) Carotid [...] MALIG NEOPLASM DIGESTIV ORGN] Onset: 2 Episodic Residual codes; unclassified (2 sources) Other specified health status; Translations: [Other specified health status] Onset: 4 Episodic Unclassified (1 source) Imaging result normal; [...] (U) [Interp] Diagnosis Info Invalid Interpretation Code [facility] Comment on above: Result Comment: A:Ur ine,Clean [...] on: 07/18/2024 12:47:49 Performed By: #### 1 [id number] #### [facility] [address] [place] [address] Ambulatory Visit Summaryon 0 07-15-2024 Ambulatory Visit [...] When: Comments: pending review of imaging Where: [address] [place] [address]- Medications What How Much When Instructions Unchanged [...] prescribing physician if questions or concerns Allergies [place] (Unknown) Dogs (Unknown) Milk Products (Unknown) Mold [...] the b (more content not included)... Normal [facility] Urine Cytology ([facility])on 0 07-15-2024 Method of Extraction Voided Normal [facility] Comment on above: Performed By: #### 1 [id number] #### [facility] [address] [place] [address] Number of Jars 1 Invalid Interpretation Code [facility] Comment on above: Performed By: #### 1 [id number] #### [facility] [address] [place] [address] Specimen Clean Catch Normal [facility] Comment on above: Performed By: #### 1 [id number] #### [facility] [address] [place] [address] Type of Service Technical Only Normal [facility] Comment on above: Performed By: #### 1 [id number] #### [facility] [address] [place] [address] Urology Office/Clinic Noteon 07-15-2024 Urology Office/Clinic Note [...] with voice recognition artificial intelligence software, specifically Hyphen 8, [employer] and or Calxeda. Substitutions may have occurred due to the [...] mm left renal calculi are suggested. KUB 12/27/23 bilateral nephrolithiasis. [2] KUB 07/04/24 - 15 [...] Urnls Dip Stick Auto w/o Microscopy POC 67675 Follow-up With When Contact Information MO HAYDEN, Yehuda Haddad, URL [address] [place] [address]- Additional Instructions: pending review of imaging Patient Education Kidney Stones, Vekb-ro-Krkv Hematuria, Adult Problem List/Past Medical History Ongoing [...] bile duct (more content not included)... Normal [facility] Comment on above: Result Comment: Elec tronically Signed By: RAAD Back APRN, Aurora X\.br\Date and Time Signed: 07/15/24 15:39 EDT ECG 12 Leadon 03-06-2024 Sinus bradycardia with occasional PVCs Low voltage QRS Nonspecific ST change QTc 391 ms [facility] Work Phone: BASIC METABOLIC PANLon 02-17 Anion gap [Moles/Vol] 6 mmol/L Normal 5-15 [facility] Comment on above: Performed By: #### B YONATAN, THYR #### [facility] ([id number]) [address], [address] [place] [address] Calcium [Mass/Vol] 9.8 mg/dL Normal 8.5-10.5 [facility] Comment on above: Performed By: #### Win TAM, THYR #### [facility] ([id number]) [address], [facility] [address] [place] [address] Chloride [Moles/Vol] 106 mmol/L Normal 98-109 [facility] Comment on above: Performed By: #### Win TAM, THYR #### [facility] ([id number]) [address], [address] [place] [address] CO2 [Moles/Vol] 31 mmol/L Normal 22-32 [facility] Comment on above: Performed By: #### Win TAM, THYR #### [facility] ([id number]) [address], [facility] [address] [place] [address] Creatinine [Mass/Vol] 0.90 mg/dL Normal 0.40-1.00 [facility] Comment on above: Result Comment: METH OD TRACEABLE TO IDMS STANDARD Performed By: #### Win TAM, THYR #### [facility] ([id number]) [address], [facility] [address] [place] [address] GFR/1.73 sq M.predicted among non-blacks MDRD (S/P/Bld) [Vol rate/Area] 68 mL/min/{1.73_m2} Normal >59 [facility] Comment on above: Result Comment: Reported eGFR is based on the CKD-EPI 2020 equation that does not use a race coefficient. Performed By: #### B YONATAN, THYR #### [facility] ([id number]) [address], [address] [place] [address] Glucose [Mass/Vol] 105 mg/dL High 65-99 [facility] Comment on above: Performed By: #### B YONATAN, THYR #### [facility] ([id number]) [address], [address] [place] [address] Potassium [Moles/Vol] 4.2 mmol/L Normal 3.5-5.0 [facility] Comment on above: Performed By: #### B YONATAN, THYR #### [facility] ([id number]) [address], [address] [place] [address] Sodium [Moles/Vol] 143 mmol/L Normal 134-146 [facility] Comment on above: Performed By: #### B YONATAN, THYR #### [facility] ([id number]) [address], [address] [place] [address] Urea nitrogen [Mass/Vol] 19 mg/dL Normal 5-27 [facility] Comment on above: Performed By: #### B YONATAN, THYR #### [facility] ([id number]) [address], [address] [place] [address] THYROID PROFILEon 02-18-2024 Free T4 [Mass/Vol] 1.92 ng/dL High 0.61-1.60 [facility] Comment on above: Performed By: #### B YONATAN, THYR #### [facility] ([id number]) [address], [address] [place] [address] TSH 0.58 uIU/mL Normal 0.49-4.67 [facility] Comment on above: Performed By: #### B YONATAN, THYR #### [facility] ([id number]) [address], [address] [place] [address] Ambulatory Visit Summaryon 1 2-29-2023 Ambulatory Visit Summary MIKY FUENTES :1950 Visit Date:10/26/2023 Ambulatory Visit Instructions Your Diagnosis Ureteral stone with hydronephrosis Kidney stone Tests Performed Urnls Dip Stick Auto w/o Microscopy POC 22779 Your Care Team Attending Physician - Yehuda [...] AM EST With: Where: [facility] Normal [address] [place] [address]- \.br\ You Need to Schedule the Following Appointments\.br\ Follow Up with AVITIA MD, Yehuda R, URL When: \.br\ Where:\.br\ [address] [facility] [address]br\ [place] [address]-\.br\ Medications\.br\ What How Much When Instructions\.br\ New potassium bicarbonate (K-Effervescent 25 mEq oral tablet, effervescent) 1 Tablets By Mouth 2 times a day Refills: 11 Pickup at [facility]\.br\ Unchanged allopurinol (allopurinol 300 mg Tab) [...] if questions or concerns \.br\ Pharmacy Information\.br\ [facility]: [address] [place], [place] [id number] [phone]\.br\ \.br\ What How Much When Why Comments\.br\ Stop Taking tamsulosin (Flomax 0.4 mg Cap) 1 Capsules By Mouth Every day Right flank pain Kidney stones Gross hematuria\.br\ Test Results\.br\ Urnls Dip Stick Auto w/o Microscopy POC 71861 (10/26/2023)\.br\ Bilirubin Urine Dipstick - Negative\.br\ Blood Urine Dipstick - 3+ Large\.br\ Glucose Urine Dipstick - Negative\.br\ Ketones Urine Dipstick - Negative\.br\ Leukocytes Urine Dipstick - Negative\.br\ Nitrite Urine Dipstick - Negative\.br\ Protein Urine Dipstick - 2+ (100 mg/dl)\.br\ Specific [place] Urine Dipstick - 1.025\.br\ Urine Appearance Urine Dipstick - Slightly cloudy\.br\ Urine Color Urine Dipstick - Yellow\.br\ Urobilinogen Urine Dipstick - Normal 0.2-1 EU/dl\.br\ pH Urine Dipstick - 5\.br\ Allergies\.br\ [place] (Unknown)\.br\ Dogs (Unknown)\.br\ Milk Products (Unknown)\.br\ Mold [...] \.br\ Have a salad and fruit [facility] Patient Educationon 12-29-20 23 Patient Education Nephrology Dietary Guidelines to Help [...] Spinach (cooked), rhubarb, beets, sweet potatoes, and Stateless chard. ? Peanuts. ? Potato chips, urdu fries, and baked potatoes with skin on. ? Nuts and nut products. ? Chocolate. ? If you regularly take a diuretic medicine, make sure to eat at least 1 or 2 servings of fruits or vegetables that are high in potassium each day. These include: ? Avocado. ? Banana. ? [place], prune, carrot, or tomato juice. ? Baked [...] fish oil, or vitamin B6. ? Take zrrq-opl-wgeleww and prescription medicines only as told by your health care provider. These include supplements. What foods sh (more content not included)... Normal [facility]23 [facility] [id number]#1 .00TIFF [facility] [id number]#1 .00TIFF [facility] Urology Office/Clinic Noteon 10-26-2023 Urology Office/Clinic Note Chief Complaint CT Review HPI Staff 2 wk f/u with KUB. Saw DAXA at prior OV. Previous Dx: R flank pain, kidney stones, gross hematuria. S/p ESWL 11/18/20. CT AP wo con done 10/11/23 at [facility].Was given Tamsulosin, however stopped taking after [...] Contact Information MO HAYDEN, Yehuda Haddad, URL [address] [place], [place] [id number]- Additional Instructions: 6 months Patient Education Dietary [...] OTC joint sup (more content not included)... [facility] Comment on above: Result Comment: Elec tronically Signed By: Yehuda AVITIA MD\.br\Date and Time Signed: 10/26/23 09:11 EST\.br\Electronically Co-Signed By: Chantal Bishop.br\Date and Time Co-Signed: 10/26/23 09:09 EST RAD - CT Reporton 10-15-2023 RAD - CT Report [id number]# 1.00TIFF [facility] RAD - CT Report [id number]#1 .00TIFF [facility] RAD - MISCon 10-15-2023 RAD - MISC [id number]#1 .00TIFF [facility] RAD - MISC [id number]#1 .00TIFF [facility] Ambulatory Visit Summaryon 1 12-10-2022 Ambulatory Visit Summary MIKY FUENTES :1950 Visit Date:10/09/2023 Ambulatory Visit Instructions Your Diagnosis Gross hematuria Right flank pain Tests Performed Urnls Dip Stick Auto w/o Microscopy POC 26103 Your Care Team Attending Physician - DORA [...] Urnls Dip Stick Auto w/o Microscopy POC 68490 (10/09/2023) Bilirubin Urine Dipstick - Negative Blood Urine Dipstick - 3+ Large Glucose Urine Dipstick - Negative Ketones Urine Dipstick - Negative Leukocytes Urine Dipstick - Negative Nitrite Urine Dipstick - Negative Protein Urine Dipstick - 3+ (300 mg/dl) Specific [place] Urine Dipstick - >=1.030 Urine Appearance Urine Dipstick - Clear Urine Color Urine Dipstick - Yellow Urobilinogen Urine Dipstick - Normal 0.2-1 EU/dl pH Urine Dipstick - 5.5 Allergies [place] (Unknown) Dogs (Unknown) Milk Products (Unknown) Mold [...] for choosing us for your care. Normal [facility] Patient Educationon 10-09-20 Patient Education Urology Hematuria, [...] these instructions at home: Medicines ? Take rqvs-prc-pdsgqjt and prescription medicines only as told by [...] the blood stops without treatment. ? Take tajl-elc-bsdlxpd and prescription medicines only as told by your health care provider. ? Drink enough fluid to keep your urine pale yellow. This information is not intended to replace advice given to you by your health care provider. Make sure you discuss any questions you have with your health care provider. Document Revised: 06/15/2021 Document Reviewed: 06/15/2021 [employer] Patient Education ? 2022 [employer] [facility] Urology Office/Clinic Noteon 10-09-2023 Urology Office/Clinic Note [...] Daily, # 30 cap(s), Refills(s) 0, Pharmacy: [facility], 165, cm, 10/09/23 15:24:00 EST, Height/Length Dosing, 113, kg, 10/09/23 15:24:00 EST, Weight Dosing CT Abdomen w/o Contrast E&M of Est. Patient Moderate 30-39 Min 24947 2. Kidney stones (N20.0: Calculus of kidney) see #1 KUB from this spring showed several medium (6-7mm) R renal stones has had multiple lithotripsy in past Ordered: tamsulosin, 0.4 mg = 1 cap(s), Oral, Daily, # 30 cap(s), Refills(s) 0, Pharmacy: [facility], 165, cm, 10/09/23 15:24:00 EST, Height/Length Dosing, 113, kg, 10/09/23 15:24:00 EST, Weight Dosing CT Abdomen w/o Contrast E&M of Est. Patient Moderate 30-39 Min 95660 3. Gross hematuria (R31.0: Gross hematuria) see #1 Ordered: tamsulosin, 0.4 mg = 1 cap(s), Oral, Daily, # 30 cap(s), Refills(s) 0, Pharmacy: [facility], 165, cm, 10/09/23 15:24:00 EST, Height/Length Dosing, 113, kg, 10/09/23 15:24:00 EST, Weight Dosing CT Abdomen w/o Contrast E&M of Est. Patient Moderate 30-39 Min 18308 Urnls Dip Stick Auto w/o Microscopy POC 55539 Follow-up With When Contact Information INGE CARDONA, DORA [place], URAba [address] [place] [address] Business (1) Additional Instructions: pending [...] Oral, B (more content not included)... Normal [facility] Comment on above: Result Comment: Elec tronically Signed By: INGE CARDONA, DORA [place]\.br\Date and Time Signed: 10/09/23 15:49 EST CREATININEon 03-05-2023 Creatinine [Mass/Vol] 1.16 mg/dL Critically high 0.55-1.02 [facility] Comment on above: Performed By: #### C AIYANA #### [facility] [address] [address] [address] Alysha Machuca EGFR-AF MOLDOVAN 56 mL/min/1.73m2 Critically low >=60 [facility] Comment on above: Performed By: #### C AIYANA #### [facility] [address] [address] [address] Alysha Machuca EGFR-NON AF MOLDOVAN 46 mL/min/1.73m2 Critically low >=60 [facility] Comment on above: Performed By: #### C AIYANA #### [facility] [address] [address] [address] ABD/PELVIS WO CONon [...] KYLE BLANC Date: 2023-03-05 15:08 Normal [facility] VITAMIN B1 (THIAMINE)on 01-28 Vit. B1, Whole Blood 132.2 nmol/L Normal 66.5-200.0 [facility] Comment on above: Performed By: #### V ITB1T ####[facility] [address] [address]Dr. Alysha Machuca CBC AUTO DIFFon 02-20-2023 BASO # 0.1 103/ul Normal 0.0-0.1 [facility] Comment on above: Performed By: #### C BC #### [facility] [id number] Alysha Machuca Basophils/100 WBC (Bld) 0.9 % Normal 0.2-2.0 [facility] Comment on above: Performed By: #### C BC #### [facility] [address] [place] [address] Dr. Alysha Machuca EO # 0.2 103/ul Normal 0.0-0.7 [facility] Comment on above: Performed By: #### C BC #### [facility] [address] [place] [address] Dr. Alysha Machuca Eosinophils/100 WBC (Bld) 3.0 % Normal 0.9-7.0 [facility] Comment on above: Performed By: #### C BC #### [facility] [address] [place] [address] Dr. Alysha Machuca Erythrocyte distribution width (RBC) [Ratio] 13.9 % Normal 11.0-15.0 [facility] Comment on above: Performed By: #### C BC #### [facility] [address] [place] [address] Dr. Alysha Machuca Hematocrit (Bld) [Volume fraction] 39.5 % Normal 36.0-48.0 [facility] Comment on above: Performed By: #### C BC #### [facility] [address] [place] [address] Dr. Alysha Machuca Hemoglobin (Bld) [Mass/Vol] 12.7 g/dL Normal 12.0-16.0 [facility] Comment on above: Performed By: #### C BC #### [facility] [address] [place] [address] Dr. Alysha Machuca IG # 0.01 10e3/ul Normal 0.00-0.03 [facility] Comment on above: Performed By: #### C BC #### [facility] [address] [place] [address] Dr. Alysha Machuca IG % 0.2 % Normal 0.0-0.5 [facility] Comment on above: Performed By: #### C BC #### [facility] [address] [place] [address] Dr. Alysha Machuca LYMPH # 1.7 103/ul Normal 1.2-3.8 [facility] Comment on above: Performed By: #### C BC #### [facility] [address] [place] [address] Dr. Alysha Machuca Lymphocytes/100 WBC (Bld) 30.7 % Normal 20.5-60.0 [facility] Comment on above: Performed By: #### C BC #### [facility] [address] [place] [address] Dr. Alysha Machuca MANUAL DIFF REQ NO Normal [facility] Comment on above: Performed By: #### C BC #### [facility] [address] [place] [address] Dr. Alysha Machuca MCH (RBC) [Entitic mass] 29.3 pg Normal 26.7-34.0 [facility] Comment on above: Performed By: #### C BC #### [facility] [address] [place] [address] Dr. Alysha Machuca MCHC (RBC) [Mass/Vol] 32.2 g/dL Normal 29.9-35.2 [facility] Comment on above: Performed By: #### C BC #### [facility] [address] [place] [address] Dr. Alysha Machuca MCV (RBC) [Entitic vol] 91.0 fL Normal 81.0-99.0 [facility] Comment on above: Performed By: #### C BC #### [facility] [address] [place] [address] Dr. Alysha Machuca MONO # 0.4 103/ul Normal 0.3-0.8 [facility] Comment on above: Performed By: #### C BC #### [facility] [address] [place] [address] Dr. Alysha Machuca Monocytes/100 WBC (Bld) 6.8 % Normal 1.7-12.0 [facility] Comment on above: Performed By: #### C BC #### [facility] [address] [place] [address] Dr. Alysha Machuca NEUT # 3.3 103/ul Normal 1.4-6.5 [facility] Comment on above: Performed By: #### C BC #### [facility] [address] [address] [address] Alysha Machuca Neutrophils/100 WBC (Bld) 58.4 % Normal 43.0-75.0 [facility] Comment on above: Performed By: #### C BC #### [facility] [address] [address] [address] Alysha Machuca Platelet mean volume (Bld) [Entitic vol] 9.3 fL Critically low 9.5-13.5 [facility] Comment on above: Performed By: #### C BC #### [facility] [address] [address] [address] Alysha Machuca PLT 186 103/ul Normal 150-450 [facility] Comment on above: Performed By: #### C BC #### [facility] [address] [address] [address] Alysha Machuca RBC 4.34 106/ul Normal 4.20-5.40 [facility] Comment on above: Performed By: #### C BC #### [facility] [address] [address] [address] Alysha Machuca WBC 5.6 103/ul Normal 4.0-11.0 [facility] Comment on above: Performed By: #### C BC #### [facility] [address] [address] [address] Alysha Machuca FERRITINon 02-20-2023 Ferritin [Mass/Vol] 36.0 ng/mL Normal 8.0-252.0 [facility] Comment on above: Performed By: #### F ERR, B12FOL, FETIBC, VITAD ####[facility] [address] [address]. Alysha Machuca IRON AND TIBCon 02-20-2023 % SATURATION 15.8 % Normal [facility] Comment on above: Performed By: #### F ERR, B12FOL, FETIBC, VITAD ####[facility] [address] [address]Dr. Alysha Machuca Iron [Mass/Vol] 53.0 ug/dL Normal 50.0-170.0 [facility] Comment on above: Performed By: #### F ERR, B12FOL, FETIBC, VITAD ####[facility] [address] [place], [place] [address]XwMaite Machuca TIBC DIRECT 335.0 ug/dL Normal 250.0-450.0 [facility] Comment on above: Performed By: #### F ERR, B12FOL, FETIBC, VITAD ####[facility] [address] [place], [place] [address]YfMaite Machuca MAGNESIUMon 02-20-2023 Magnesium [Mass/Vol] 1.9 mg/dL Normal 1.8-2.4 [facility] Comment on above: Performed By: #### P HOS, CMP, MG #### [facility] [address] [address] [address] Alysha Machuca PHOSPHORUSon 02-20-2023 Phosphate [Mass/Vol] 3.9 mg/dL Normal 2.6-4.7 [facility] Comment on above: Performed By: #### P HOS, CMP, MG #### [facility] [address] [place] [address] Dr. Alysha Machuca PROF 14(COMP METB)on 023 Albumin [Mass/Vol] 3.4 g/dL Normal 3.4-5.0 [facility] Comment on above: Performed By: #### P HOS, CMP, MG #### [facility] [address] [address] [address] Alysha Machuca Albumin/Globulin [Mass ratio] 0.9 {ratio} Normal [facility] Comment on above: Performed By: #### P HOS, CMP, MG #### [facility] [address] [address] [address] Alysha Machuca ALP [Catalytic activity/Vol] 123 U/L Critically high 46-116 [facility] Comment on above: Performed By: #### P HOS, CMP, MG #### [facility] [address] [place] [address] Dr. Alysha Machuca ALT [Catalytic activity/Vol] 21 U/L Normal 14-59 [facility] Comment on above: Performed By: #### P HOS, CMP, MG #### [facility] [address] [place] [address] Dr. Alysha Machuca Anion gap [Moles/Vol] 13.8 mmol/L Normal [facility] Comment on above: Performed By: #### P HOS, CMP, MG #### [facility] [address] [address] [address] Alysha Machuca AST [Catalytic activity/Vol] 15 U/L Normal 15-37 [facility] Comment on above: Performed By: #### P HOS, CMP, MG #### [facility] [address] [place] [address] Dr. Alysha Machuca Bilirubin [Mass/Vol] 0.5 mg/dL Normal 0.2-1.0 [facility] Comment on above: Performed By: #### P HOS, CMP, MG #### [facility] [address] [place] [address] Dr. Alysha Machuca Calcium [Mass/Vol] 9.6 mg/dL Normal 8.5-10.1 [facility] Comment on above: Performed By: #### P HOS, CMP, MG #### [facility] [address] [place] [address] Dr. Alysha Machuca Chloride [Moles/Vol] 103 mmol/L Normal 98-107 [facility] Comment on above: Performed By: #### P HOS, CMP, MG #### [facility] [address] [place] [address] Dr. Alysha Machuca CO2 [Moles/Vol] 25.2 mmol/L Normal 21.0-32.0 [facility] Comment on above: Performed By: #### P HOS, CMP, MG #### [facility] [address] [place] [address] Dr. Alysha Machuca Creatinine [Mass/Vol] 0.95 mg/dL Normal 0.55-1.02 [facility] Comment on above: Performed By: #### P HOS, CMP, MG #### [facility] [address] [address] [address] Alysha Machuca EGFR-AF MOLDOVAN >60 Normal >=60 [facility] Comment on above: Performed By: #### P HOS, CMP, MG #### [facility] [address] [address] [address] Alysha Machuca EGFR-NON AF MOLDOVAN 58 mL/min/1.73m2 Critically low >=60 [facility] Comment on above: Performed By: #### P HOS, CMP, MG #### [facility] [address] [address] [address] Alysha Machuca Globulin (S) [Mass/Vol] 3.6 g/dL Normal [facility] Comment on above: Performed By: #### P HOS, CMP, MG #### [facility] [address] [address] [address] Alysha Machuca Glucose [Mass/Vol] 96 mg/dL Normal 74-106 [facility] Comment on above: Performed By: #### P HOS, CMP, MG #### [facility] [address] [address] [address] Alysha Machuca Potassium [Moles/Vol] 4.0 mmol/L Normal 3.5-5.1 [facility] Comment on above: Performed By: #### P HOS, CMP, MG #### [facility] [address] [address] [address] Alysha Machuca Protein [Mass/Vol] 7.0 g/dL Normal 6.4-8.2 [facility] Comment on above: Performed By: #### P HOS, CMP, MG #### [facility] [address] [address] [address] Alysha Machuca Sodium [Moles/Vol] 138 mmol/L Normal 136-145 [facility] Comment on above: Performed By: #### P HOS, CMP, MG #### [facility] [address] [address] [address] Alysha Machuca Urea nitrogen [Mass/Vol] 21.0 mg/dL Critically high 7.0-18.0 [facility] Comment on above: Performed By: #### P HOS, CMP, MG #### [facility] [address] [address] [address] Alysha Machuca Urea nitrogen/Creatini ne [Mass ratio] 22.1 mg/mg Normal [facility] Comment on above: Performed By: #### P HOS, CMP, MG #### [facility] [address] [address] [address] Alysha Machuca VIT B12 AND FOLATEon 023 Cobalamin (Vitamin B12) [Mass/Vol] 652.0 pg/mL Normal 193.0-986.0 [facility] Comment on above: Performed By: #### F ERR, B12FOL, FETIBC, VITAD ####[facility] [address] [address]. Alysha Machuca FOLATE 18.30 ng/mL Normal 8.60-58.90 [facility] Comment on above: Performed By: #### F ERR, B12FOL, FETIBC, VITAD ####[facility] [address] [address]Dr. Alysha Machuca VITAMIN D 25 OHon 02-20-2023 VIT D 25-OH 41.7 ng/mL Normal [facility] Comment on above: Performed By: #### F ERR, B12FOL, FETIBC, VITAD ####[facility] [address] [address]Dr. Alysha Machuca VIT D RANGES SEE BELOW Normal [facility] Comment on above: Result Comment: <20 ng/mL Vit D deficient 20 - <30 ng/mL Vit D insufficient 30 - 100 ng/mL Vit D sufficient >100 ng/mL Potential Toxicity Performed By: #### F ERR, B12FOL, FETIBC, VITAD ####[facility] [address] [address]DrMaite Machuca XR KUB 1 VIEWon 02-20-2023 XR [...] KYLE BLANC Date: 2023-02-20 15:57 Normal [facility] Office Visit (Cardiology)on 12-06-2022 Follow-up [...] in adult Healthy Weight Tips; Status:Complete; Done: [id number] Some eating tips that can help you lose weight.; Status:Complete; Done: [id number] Hyperlipidemia Renew: Lovastatin 10 MG Oral Tablet; TAKE 1 TABLET DAILY DIRECTED Paroxysmal atrial fibrillation IO EKG Electrocardiogram- 12 Lead; Status:Complete; Done: [id number] SocHx: Never a smoker Tobacco Use Screening; Status:Complete; Done: [id number] Patient Instructions Please bring all medicines, vitamins, [...] MG Oral TabletTAKE 1 TABLET Twice daily [place] 3 [place] DIRECTED. Tylenol Arthritis Ext Relief [...] Signs Recorded: 06Dec2022 01:27PM Heart Rate43, Apical Onmtojgr152, RUE, Sitting Mrpkwgbze35, RUE, Sitting Height5 ft 5 in Rheuye215 lb BMI Ytuxkbjxeb55.94 kg/m2 BSA Calculated2.07 Tobacco Useb) No PHQ-2 [...] Screening.on 023 Adult depression screening assessment No [facility] [address] DO Work Phone: Fall risk assessment a) No falls within the last year [facility] [address] DO Work Phone: Tobacco use status [facility] b) No -[facility] [facility] [address] DO Work Phone: VC INJ SCL [employer] VEINSon 0 11-03-2022 VC INJ SCL [employer] Patient: MIKY FUENTES Exam Date: 11/03/2022 : 1950 Gender:F Ordering : DR WILLARD GAMBOA M.D. Admission #: [id number] Family : Order #: [id number] CLICK HERE TO VIEW EXAM RADIOLOGY REPORT PROCEDURE: VEIN CENTER INJECTION SCLEROSING SOLUTION MULTIPLE VEINS SAME COMPARISON: VC INJ SCL [employer] VEINS, 10/27/2022. VC INJ SCL [employer], 10/16/2022. INDICATIONS: Pain co-occurrent and due [...] Gamboa MD on 11/03/2022 at 12:37 Normal [facility] XR KUB 1 VIEWon 11-03-2022 XR KUB [...] by: KYLE BLANC Date: 2022-11-03 12:52 Normal [facility] VC INJ SCL [employer] VEINSon 1 VC INJ SCL [employer]INS Patient: MIKY FUENTES Exam Date: 10/27/2022 : 1950 Gender:F Ordering : DR WILLARD GAMBOA M.D. Admission #: [id number] Family : Order #: [id number] CLICK HERE TO VIEW EXAM RADIOLOGY REPORT PROCEDURE: VEIN CENTER INJECTION SCLEROSING SOLUTION MULTIPLE VEINS SAME COMPARISON: VC INJ SCL [employer] VEINS, 10/16/2022. VC INJ SCL [employer] VE[employer], 10/06/2022. INDICATIONS: Pain co-occurrent and due [...] Gamboa MD on 10/27/2022 at 11:46 Normal [facility] VC INJ SCL [employer] VEINSon 1 12-17-2021 VC INJ SCL [employer] Patient: MIKY FUENTES Exam Date: 10/16/2022 : 1950 Gender:F Ordering : DR WILLARD GAMBOA M.D. Admission #: [id number] Family : Order #: [id number] CLICK HERE TO VIEW EXAM RADIOLOGY REPORT PROCEDURE: VEIN CENTER INJECTION SCLEROSING SOLUTION MULTIPLE VEINS SAME COMPARISON: VC INJ SCL [employer] VE[employer], 10/06/2022. INDICATIONS: Pain co-occurrent and due [...] Blanc M.D. on 10/17/2022 at 08:12 Normal [facility] CREATININEon 10-10-2022 Creatinine [Mass/Vol] 1.11 mg/dL Critically high 0.55-1.02 [facility] Comment on above: Performed By: #### C AIYANA ####[facility] [address] [address]Dr. Alysha Machuca EGFR-AF MOLDOVAN 59 mL/min/1.73m2 Critically low >=60 [facility] Comment on above: Performed By: #### C AIYANA ####[facility] [address] [place], [place] [address]Xb. Alysha Machuca EGFR-NON AF MOLDOVAN 48 mL/min/1.73m2 Critically low >=60 [facility] Comment on above: Performed By: #### C AIYANA ####[facility] [address] [place], [place] [address]Zc. Alysha Machuca VC INJ SCL [employer] VEINSon 1 12-07-2021 VC INJ SCL [employer] Patient: MIKY FUENTES Exam Date: 10/06/2022 : 1950 Gender:F Ordering : DR WILLARD GAMBOA M.D. Admission #: [id number] Family : Order #: [id number] CLICK HERE TO VIEW EXAM RADIOLOGY REPORT [...] MD on 10/06/2022 at 13:45 Normal [facility] VC CONSULT FOLLOWUPon 2021 VC CONSULT FOLLOWUP Patient: MIKY FUENTES Exam Date: 09/26/2022 : 1950 Gender:F Ordering : DR WILLARD GAMBOA M.D. Admission #: [id number] Family : Order #: [id number] CLICK HERE TO VIEW EXAM RADIOLOGY REPORT [...] Blanc M.D. on 09/26/2022 at 15:46 Normal [facility] VC EXT VENOUS RT LIMITEDon 1 11-26-2021 VC EXT VENOUS RT LIMITED Patient: MIKY FUENTES Exam Date: 09/26/2022 : 1950 Gender:F Ordering : DR WILLARD GAMBOA M.D. Admission #: [id number] Family : Order #: [id number] CLICK HERE TO VIEW EXAM RADIOLOGY REPORT [...] Blanc M.D. on 09/26/2022 at 15:44 Normal [facility] VC INJ FOAM SCLERO W US MLTI on 09-20-2022 VC INJ FOAM SCLERO W US MLTI Patient: MIKY FUENTES Exam Date: 09/20/2022 : 1950 Gender:F Ordering : DR WILLARD GAMBOA M.D. Admission #: [id number] Family : Order #: [id number] CLICK HERE TO VIEW EXAM RADIOLOGY REPORT [...] Blanc M.D. on 09/20/2022 at 15:43 Normal [facility] VC CONSULT FOLLOWUPon 2021 VC CONSULT FOLLOWUP Patient: MIKY FUENTES Exam Date: 09/07/2022 : 1950 Gender:F Ordering : DR WILLARD GAMBOA M.D. Admission #: [id number] Family : Order #: [id number] CLICK HERE [...] Gamboa MD on 09/07/2022 at 13:04 Normal [facility] VC EXT VENOUS LT LIMITEDon 1 11-07-2021 VC EXT VENOUS LT LIMITED Patient: MIKY FUENTES Exam Date: 09/07/2022 : 1950 Gender:F Ordering : DR WILLARD GAMBOA M.D. Admission #: [id number] Family : Order #: [id number] CLICK HERE TO VIEW EXAM RADIOLOGY REPORT [...] MD on 09/07/2022 at 11:59 Normal [facility] CBC AUTO DIFFon 09-01-2022 BASO # 0.0 103/ul Normal 0.0-0.1 [facility] Comment on above: Performed By: #### C BC #### [facility] [address] [place] [address] Dr. Alysha Machuca Basophils/100 WBC (Bld) 0.6 % Normal 0.2-2.0 [facility] Comment on above: Performed By: #### C BC #### [facility] [address] [place] [address] Dr. Alysha Machuca EO # 0.3 103/ul Normal 0.0-0.7 [facility] Comment on above: Performed By: #### C BC #### [facility] [address] [place] [address] Dr. Alysha Machuca Eosinophils/100 WBC (Bld) 4.3 % Normal 0.9-7.0 [facility] Comment on above: Performed By: #### C BC #### [facility] [address] [place] [address] Dr. Alysha Machuca Erythrocyte distribution width (RBC) [Ratio] 14.6 % Normal 11.0-15.0 [facility] Comment on above: Performed By: #### C BC #### [facility] [address] [place] [address] Dr. Alysha Machuca Hematocrit (Bld) [Volume fraction] 39.7 % Normal 36.0-48.0 [facility] Comment on above: Performed By: #### C BC #### [facility] [address] [place] [address] Dr. Alysha Machuca Hemoglobin (Bld) [Mass/Vol] 13.1 g/dL Normal 12.0-16.0 [facility] Comment on above: Performed By: #### C BC #### [facility] [address] [place] [address] Dr. Alysha Machuca IG # 0.01 10e3/ul Normal 0.00-0.03 [facility] Comment on above: Performed By: #### C BC #### [facility] [address] [place] [address] Dr. Alysha Machuca IG % 0.2 % Normal 0.0-0.5 [facility] Comment on above: Performed By: #### C BC #### [facility] [address] [place] [address] Dr. Alysha Machuca LYMPH # 1.9 103/ul Normal 1.2-3.8 [facility] Comment on above: Performed By: #### C BC #### [facility] [address] [place] [address] Dr. Alysha Machuca Lymphocytes/100 WBC (Bld) 29.5 % Normal 20.5-60.0 [facility] Comment on above: Performed By: #### C BC #### [facility] [address] [place] [address] Dr. Alysha Machuca MANUAL DIFF REQ NO Normal [facility] Comment on above: Performed By: #### C BC #### [facility] [address] [place] [address] Dr. Alysha Machuca MCH (RBC) [Entitic mass] 29.8 pg Normal 26.7-34.0 [facility] Comment on above: Performed By: #### C BC #### [facility] [address] [place] [address] Dr. Alysha Machuca MCHC (RBC) [Mass/Vol] 33.0 g/dL Normal 29.9-35.2 [facility] Comment on above: Performed By: #### C BC #### [facility] [address] [place] [address] Dr. Alysha Machuca MCV (RBC) [Entitic vol] 90.2 fL Normal 81.0-99.0 [facility] Comment on above: Performed By: #### C BC #### [facility] [address] [place] [address] Dr. Alysha Machuca MONO # 0.5 103/ul Normal 0.3-0.8 [facility] Comment on above: Performed By: #### C BC #### [facility] [address] [place] [address] Dr. Alysha Machuca Monocytes/100 WBC (Bld) 7.0 % Normal 1.7-12.0 [facility] Comment on above: Performed By: #### C BC #### [facility] [address] [place] [address] Dr. Alysha Machuca NEUT # 3.8 103/ul Normal 1.4-6.5 [facility] Comment on above: Performed By: #### C BC #### [facility] [address] [place] [address] Dr. Alysha Machuca Neutrophils/100 WBC (Bld) 58.4 % Normal 43.0-75.0 [facility] Comment on above: Performed By: #### C BC #### [facility] [address] [place] [address] Dr. Alysha Machuca Platelet mean volume (Bld) [Entitic vol] 9.5 fL Normal 9.5-13.5 [facility] Comment on above: Performed By: #### C BC #### [facility] [address] [place] [address] Dr. Alysha Machuca PLT 235 103/ul Normal 150-450 [facility] Comment on above: Performed By: #### C BC #### [facility] [address] [address] [address] Alysha Machuca RBC 4.40 106/ul Normal 4.20-5.40 [facility] Comment on above: Performed By: #### C BC #### [facility] [address] [place], [place] [address] Dr. Alysha Machuca WBC 6.6 103/ul Normal 4.0-11.0 [facility] Comment on above: Performed By: #### C BC #### [facility] [address] [address] [address] Alysha Machuca PROF CHEM 8 (BAS METB)on Anion gap [Moles/Vol] 7.7 mmol/L Normal [facility] Comment on above: Performed By: #### B MP ####[facility] [address] [address]DrMaite Machuca Calcium [Mass/Vol] 9.8 mg/dL Normal 8.5-10.1 [facility] Comment on above: Performed By: #### B MP ####[facility] [facility] [address] [place] [address]DrMaite Machuca Chloride [Moles/Vol] 104 mmol/L Normal 98-107 [facility] Comment on above: Performed By: #### B MP ####[facility] [address] [place] [address]Dr. Alysha Machuca CO2 [Moles/Vol] 29.2 mmol/L Normal 21.0-32.0 [facility] Comment on above: Performed By: #### B MP ####[facility] [address] [place] [id number] Machuca Creatinine [Mass/Vol] 1.05 mg/dL Critically high 0.55-1.02 [facility] Comment on above: Performed By: #### B MP ####[facility] [address] [place] [id number] Machuca EGFR-AF MOLDOVAN >60 Normal >=60 [facility] Comment on above: Performed By: #### B MP ####[facility] [address] [place] [address]Dr. Alysha Machuca EGFR-NON AF MOLDOVAN 52 mL/min/1.73m2 Critically low >=60 [facility] Comment on above: Performed By: #### B MP ####[facility] [address] [place] [id number]. Alysha Machuca Glucose [Mass/Vol] 107 mg/dL Critically high 74-106 [facility] Comment on above: Performed By: #### B MP ####[facility] [address] [place] [address]Dr. Alysha Machuca Potassium [Moles/Vol] 3.9 mmol/L Normal 3.5-5.1 [facility] Comment on above: Performed By: #### B MP ####[facility] [address] [place] [address]Dr. Alysha Machuca Sodium [Moles/Vol] 137 mmol/L Normal 136-145 [facility] Comment on above: Performed By: #### B MP ####[facility] [address] [place] [id number]. Alysha Machuca Urea nitrogen [Mass/Vol] 16.0 mg/dL Normal 7.0-18.0 [facility] Comment on above: Performed By: #### B MP ####[facility] [address] [place] [address]Dr. Alysha Machuca Urea nitrogen/Creatini ne [Mass ratio] 15.2 mg/mg Normal [facility] Comment on above: Performed By: #### B MP ####[facility] [address] [place] [id number]. Alysha Machuca VC INJ FOAM SCLERO W US MLTI on 08-31-2022 VC INJ FOAM SCLERO W US MLTI Patient: MIKY FUENTES Exam Date: 08/31/2022 : 1950 Gender:F Ordering : DR WILLARD GAMBOA M.D. Admission #: [id number] Family : Order #: [id number] CLICK HERE TO VIEW EXAM RADIOLOGY REPORT [...] compressi (more content not included)... Normal [facility] VC CONSULT FOLLOWUPon 2021 VC CONSULT FOLLOWUP Patient: MIKY FUENTES Exam Date: 08/22/2022 : 1950 Gender:F Ordering : DR WILLARD GAMBOA M.D. Admission #: [id number] Family : Order #: [id number] CLICK HERE TO VIEW EXAM RADIOLOGY REPORT [...] Gamboa MD on 08/22/2022 at 10:45 Normal [facility] VC EXT VENOUS RT LIMITEDon 1 VC EXT VENOUS RT LIMITED Patient: MIKY FUENTES Exam Date: 08/22/2022 : 1950 Gender:F Ordering : DR WILLARD GAMBOA M.D. Admission #: [id number] Family : Order #: [id number] CLICK HERE TO VIEW EXAM RADIOLOGY REPORT [...] Willard Gamboa MD on 08/22/2022 at 10:21 [facility] VC INJ FOAM SCLERO W US MLTI on 08-17-2022 VC INJ FOAM SCLERO W US MLTI Patient: MIKY FUENTES Exam Date: 08/17/2022 : 1950 Gender:F Ordering : DR WILLARD GAMBOA M.D. Admission #: [id number] Family : Order #: [id number] CLICK HERE TO VIEW EXAM RADIOLOGY REPORT [...] take (more content not included)... Normal [facility] VC CONSULT FOLLOWUPon 2021 VC CONSULT FOLLOWUP Patient: MIKY FUENTES Exam Date: 08/07/2022 : 1950 Gender:F Ordering : DR WILLARD GAMBOA M.D. Admission #: [id number] Family : Order #: [id number] CLICK HERE TO VIEW EXAM RADIOLOGY REPORT [...] Gamboa MD on 08/07/2022 at 13:31 Normal [facility] VC EXT VENOUS LT LIMITEDon 1 VC EXT VENOUS LT LIMITED Patient: MIKY FUENTES Exam Date: 08/07/2022 : 1950 Gender:F Ordering : DR WILLARD GAMBOA M.D. Admission #: [id number] Family : Order #: [id number] CLICK HERE TO VIEW EXAM RADIOLOGY REPORT [...] MD on 08/07/2022 at 12:01 Normal [facility] VC INJ FOAM SCLERO W US MLTI on 08-01-2022 VC INJ FOAM SCLERO W US MLTI Patient: MIKY FUENTES Exam Date: 08/01/2022 : 1950 Gender:F Ordering : DR WILLARD GAMBOA M.D. Admission #: [id number] Family : Order #: [id number] CLICK HERE TO VIEW EXAM RADIOLOGY REPORT [...] compr (more content not included)... Normal [facility] VC CONSULT FOLLOWUPon 2021 VC CONSULT FOLLOWUP Patient: MIKY FUENTES Exam Date: 07/17/2022 : 1950 Gender:F Ordering : DR WILLARD GAMBOA M.D. Admission #: [id number] Family : Order #: [id number] CLICK HERE TO VIEW EXAM RADIOLOGY REPORT [...] Blanc M.D. on 07/17/2022 at 12:18 Normal [facility] VC EXT VENOUS RT LIMITEDon 0 07-17-2022 VC EXT VENOUS RT LIMITED Patient: MIKY FUENTES Exam Date: 07/17/2022 : 1950 Gender:F Ordering : DR WILLARD GAMBOA M.D. Admission #: [id number] Family : Order #: [id number] CLICK HERE TO VIEW EXAM RADIOLOGY REPORT [...] Kyle Blanc M.D. on 07/17/2022 at 12:14 [facility] VC INJ FOAM SCLERO W US MLTI on 07-12-2022 VC INJ FOAM SCLERO W US MLTI Patient: MIKY FUENTES Exam Date: 07/12/2022 : 1950 Gender:F Ordering : DR WILLARD GAMBOA M.D. Admission #: [id number] Family : Order #: [id number] CLICK HERE TO VIEW EXAM RADIOLOGY REPORT [...] da (more content not included)... Normal [facility] VC CONSULT FOLLOWUPon 2021 VC CONSULT FOLLOWUP Patient: MIKY FUENTES Exam Date: 06/30/2022 : 1950 Gender:F Ordering : DR WILLARD GAMBOA M.D. Admission #: [id number] Family : Order #: [id number] CLICK HERE TO VIEW EXAM RADIOLOGY REPORT [...] Gamboa MD on 06/30/2022 at 13:21 Normal [facility] VC EXT VENOUS LT LIMITEDon 0 06-30-2022 VC EXT VENOUS LT LIMITED Patient: MIKY FUENTES Exam Date: 06/30/2022 : 1950 Gender:F Ordering : DR WILLARD GAMBOA M.D. Admission #: [id number] Family : Order #: [id number] CLICK HERE TO VIEW EXAM RADIOLOGY REPORT [...] Gamboa MD on 06/30/2022 at 13:02 Normal [facility] ALBUMIN, RANDOM URINE W/CREA PROon 08-29-2022 ALBUMIN, URINE 12.7 mg/dL Normal See Note: [facility] Comment on above: Result Comment: Refe rence Range: Reference Range Not established Performed By: #### 7 600, 496, 40885, 6517 #### [facility] [place] [address] [employer]: Marek Subramanian MD ALBUMIN/CREATININ E RATIO, RANDOM [...] category. Performed By: #### 7 600, 496, 82208, 6517 #### [facility] [place] [address] [employer]: Marek Subramanian MD Creatinine (U) [Mass/Vol] 205 mg/dL Normal 20-275 [facility] Comment on above: Performed By: #### 7 600, 496, 64348, 6517 #### [facility] [place] [address] [employer]: Marek Subramanian MD [facility] 06-26-2022 Albumin [Mass/Vol] 3.9 g/dL Normal 3.6-5.1 [facility] Comment on above: Performed By: #### 7 600, 496, 71788, 6517 #### [facility] [place] [address] [employer]: Marek Subramanian MD Albumin/Globulin [Mass ratio] 1.4 {ratio} Normal 1.0-2.5 [facility] Comment on above: Performed By: #### 7 600, 496, 91056, 6517 #### [facility] [place] [address] [employer]: Marek Subramanian MD ALP [Catalytic activity/Vol] 106 U/L Normal 37-153 [facility] Comment on above: Performed By: #### 7 600, 496, 43339, 6517 #### [facility] of [place] [address] [employer]: Marek Subramanian MD ALT [Catalytic activity/Vol] 10 U/L Normal 6-29 [facility] Comment on above: Performed By: #### 7 600, 496, 09978, 6517 #### [facility] of [place] [address] [employer]: Marek Subramanian MD AST [Catalytic activity/Vol] 13 U/L Normal 10-35 [facility] Comment on above: Performed By: #### 7 600, 496, 95114, 6517 #### [facility] [place] [address] [employer]: Marek Subramanian MD Bilirubin [Mass/Vol] 0.8 mg/dL Normal 0.2-1.2 [facility] Comment on above: Performed By: #### 7 600, 496, 09189, 6517 #### [facility] of [place] [address] [employer]: Marek Subramanian MD BUN/CREATININE RATIO NOT APPLICABLE Normal 6-22 [facility] Comment on above: Performed By: #### 7 600, 496, 21693, 6517 #### [facility] of [place] [address] [employer]: Marek Subramanian MD Calcium [Mass/Vol] 9.9 mg/dL Normal 8.6-10.4 [facility] Comment on above: Performed By: #### 7 600, 496, 36487, 6517 #### [facility] [place] [address] [employer]: Marek Subramanian MD Chloride [Moles/Vol] 109 mmol/L Normal 98-110 [facility] Comment on above: Performed By: #### 7 600, 496, 95267, 6517 #### [facility] [address], [address] [place] [address] [employer]: Marek Subramanian MD CO2 [Moles/Vol] 24 mmol/L Normal 20-32 [facility] Comment on above: Performed By: #### 7 600, 496, 67023, 6517 #### [facility] [address], [address] [place] [address] [employer]: Marek Subramanian MD Creatinine [Mass/Vol] 0.88 mg/dL Normal 0.60-1.00 [facility] Comment on above: Performed By: #### 7 600, 496, 28574, 6517 #### [facility] [place] [address] [employer]: Marek Subramanian MD GFR/1.73 sq M.predicted among non-blacks MDRD (S/P/Bld) [Vol rate/Area] 70 mL/min/{1.73_m2} Normal > OR = 60 [facility] Comment on above: Result Comment: The eGFR is based on the CKD-EPI 202 equation. To calculate the new eGFR from a previous Creatinine or Cystatin C result, go to https://www.kidney.org/professionals/ kdoqi/gfr%5Fcalculator Performed By: #### 7 600, 496, 99417, 6517 #### [facility] [place] [address] [employer]: Marek Subramanian MD Globulin (S) [Mass/Vol] 2.7 g/dL Normal 1.9-3.7 [facility] Comment on above: Performed By: #### 7 600, 496, 02617, 6517 #### [facility] [place] [address] [employer]: Marek Subramanian MD Glucose [Mass/Vol] 91 mg/dL Normal 65-99 [facility] Comment on above: Result Comment: Fasting reference interval Performed By: #### 7 600, 496, 80219, 6517 #### [facility] [address] [place] [address] [employer]: Marek Subramanian MD Potassium [Moles/Vol] 4.0 mmol/L Normal 3.5-5.3 [facility] Comment on above: Performed By: #### 7 600, 496, 65386, 6517 #### [facility] [place] [address] [employer]: Marek Subramanian MD Protein [Mass/Vol] 6.6 g/dL Normal 6.1-8.1 [facility] Comment on above: Performed By: #### 7 600, 496, 82861, 6517 #### [facility] [place] [address] [employer]: Marek Subramanian MD Sodium [Moles/Vol] 143 mmol/L Normal 135-146 [facility] Comment on above: Performed By: #### 7 600, 496, 17154, 6517 #### [facility] [place] [address] [employer]: Marek Subramanian MD Urea nitrogen [Mass/Vol] 15 mg/dL Normal 7-25 [facility] Comment on above: Performed By: #### 7 600, 496, 20465, 6517 #### [facility] [place] [address] [employer]: Marek Subramanian MD HEMOGLOBIN A1con 06-26-2022 HEMOGLOBIN [...] diagnosis of diabetes in children. According to [place] [employer] (ADA) guidelines, hemoglobin A1c <7.0% represents optimal control in non- diabetic patients. Different metrics may apply to specific patient populations. Standards of Medical Care in Diabetes(ADA). Performed By: #### 7 600, 496, 49964, 6517 #### [facility] [address], [address] [place] [address] [employer] Utility: Marek Subramanian MD LIPID PANEL, [facility] 05-30 Cholesterol [Mass/Vol] 171 mg/dL Normal <200 [facility] Comment on above: Order Comment: FASTI NG:YES FASTING: YES Performed By: #### 7 600, 496, 06735, 6517 #### [facility] [address], [address] [place] [address] [employer]: Marek Subramanian MD Cholesterol in HDL [Mass/Vol] 60 mg/dL Normal > OR = 50 [facility] Comment on above: Order Comment: FASTI NG:YES FASTING: YES Performed By: #### 7 600, 496, 63314, 6517 #### [facility] [address], [address] [place] [address] [employer] Utility: Marek Subramanian MD Cholesterol in LDL [Mass/Vol] [...] LDL-C. Nikita RUSSELL et al. LEWIS. 2013;310(19): 7687-6429 (http://education.Vigilix.5minutes/faq/DSK940) Performed By: #### 7 600, 496, 53181, 6517 #### [facility] [address], [address] [place] [address] [employer]: Marek Subramanian MD Cholesterol.total /Cholesterol in HDL [Mass ratio] 2.9 {ratio} Normal <5.0 [facility] Comment on above: Order Comment: FASTI NG:YES FASTING: YES Performed By: #### 7 600, 496, 55203, 6517 #### [facility] [address], [address] [place] [address] [employer] Utility: Marek Subramanian MD NON HDL CHOLESTEROL 111 mg/dL (calc) Normal <130 [facility] Comment on above: Order Comment: FASTI NG:YES FASTING: YES Result Comment: For patients with diabetes plus 1 major ASCVD risk factor, treating to a non-HDL-C goal of <100 mg/dL (LDL-C of <70 mg/dL) is considered a therapeutic option. Performed By: #### 7 600, 496, 65999, 6517 #### [facility] [address], [address] [place] [address] [employer]: Marek Subramanian MD Triglyceride [Mass/Vol] 95 mg/dL Normal <150 [facility] Comment on above: Order Comment: FASTI NG:YES FASTING: YES Performed By: #### 7 600, 496, 84192, 6517 #### [facility] [address], [address] [place] [address] [employer]: Marek Subramanian MD VC INJ FOAM SCLERO W US MLTI on 06-26-2022 VC INJ FOAM SCLERO W US MLTI Patient: MIKY FUENTES Exam Date: 06/26/2022 : 1950 Gender:F Ordering : DR WILLARD GAMBOA M.D. Admission #: [id number] Family : Order #: [id number] CLICK HERE TO VIEW EXAM RADIOLOGY REPORT [...] vein medial distal lower leg/ankle. 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 Normal [facility] VC CONSULT FOLLOWUPon 2021 VC CONSULT FOLLOWUP Patient: MIKY FUENTES Exam Date: 06/19/2022 : 1950 Gender:F Ordering : DR WILLARD GAMBOA M.D. Admission #: [id number] Family : Order #: [id number] CLICK HERE TO VIEW EXAM RADIOLOGY REPORT [...] Blanc M.D. on 06/19/2022 at 12:14 Normal [facility] VC EXT VENOUS RT LIMITEDon 0 06-19-2022 VC EXT VENOUS RT LIMITED Patient: MIKY FUENTES Exam Date: 06/19/2022 : 1950 Gender:F Ordering : DR WILLARD GAMBOA M.D. Admission #: [id number] Family : Order #: [id number] CLICK HERE TO VIEW EXAM RADIOLOGY REPORT [...] Blanc M.D. on 06/19/2022 at 12:11 Normal [facility] VC INJ FOAM SCLERO W US MLTI on 06-13-2022 VC INJ FOAM SCLERO W US MLTI Patient: MIKY FUENTES Exam Date: 06/13/2022 : 1950 Gender:F Ordering : DR WILLARD GAMBOA M.D. Admission #: [id number] Family : Order #: [id number] CLICK HERE TO VIEW EXAM CORRECTION made [...] Kyle Blanc M.D. on 06/19/2022 at 12:17 [facility] VC CONSULT FOLLOWUPon 2021 VC CONSULT FOLLOWUP Patient: MIKY FUENTES Exam Date: 05/31/2022 : 1950 Gender:F Ordering : DR WILLARD GAMBOA M.D. Admission #: [id number] Family : Order #: [id number] CLICK HERE TO VIEW EXAM RADIOLOGY REPORT [...] Blanc M.D. on 05/31/2022 at 12:18 Normal [facility] VC EXT VENOUS LT LIMITEDon 0 05-31-2022 VC EXT VENOUS LT LIMITED Patient: MIKY FUENTES Exam Date: 05/31/2022 : 1950 Gender:F Ordering : DR WILLARD GAMBOA M.D. Admission #: [id number] Family : Order #: [id number] CLICK HERE TO VIEW EXAM RADIOLOGY REPORT [...] Blanc M.D. on 05/31/2022 at 12:13 [address] [facility] CT ABD/PELVIS WO CONon 05-26 CT ABD/PELVIS [...] by: SANTHOSH NICK Date: 2022-05-26 16:43 Normal [facility] VC ENDOVENOUS ABL 1ST V LTon 05-23-2022 VC ENDOVENOUS ABL 1ST V LT Patient: MIKY FUENTES Exam Date: 05/23/2022 : 1950 Gender:F Ordering : DR WILLARD GAMBOA M.D. Admission #: [id number] Family : Order #: [id number] CLICK HERE TO VIEW EXAM RADIOLOGY REPORT PROCEDURE: VEIN CENTER ENDOVENOUS ABLATION FIRST VEIN LEFT COMPARISON: VC ENDOVENOUS ABL 1ST V LT, 02/08/2022. INDICATIONS: Pain co-occurrent and due to varicose veins of bilateral legs I83.813 OPERATIVE REPORT: The risks and benefits of the procedure had been previously discussed, and were rediscussed at length. Informed written consent was obtained by wa and Braxton Herrera assisted. Time out procedure [...] Kyle Blanc M.D. on 05/23/2022 at 12:34 [facility] US KIDNEYSon 05-05-2022 US KIDNEYS EXAMINATION: [...] by: WILLARD GAMBOA Date: 2022-05-05 13:29 Normal [facility] XR KUB 1 VIEWon 05-05-2022 XR KUB [...] by: KYLE BLANC Date: 2022-05-05 15:[address] [facility] MAMM SCREEN 3D TANMAY CADon 05-04-2022 MG MAMM SCREEN 3D TANMAY CAD Patient: MIKY FUENTES Exam Date: 05/04/2022 : 1950 Gender:F Ordering : DR CONNOR JEAN BAPTISTE Admission #: [id number] Family : Order #: [id number] CLICK HERE TO VIEW EXAM RADIOLOGY REPORT [...] colon cancer at age 60. LOCATION: [facility] BREAST COMPOSITION: Scattered areas fibroglandular [...] M.D. on 05/05/2022 at 14:21 Normal [facility] VC CONSULT FOLLOWUPon 2021 VC CONSULT FOLLOWUP Patient: MIKY FUENTES Exam Date: 05/04/2022 : 1950 Gender:F Ordering : DR WILLARD GAMBOA M.D. Admission #: [id number] Family : Order #: [id number] CLICK HERE TO VIEW EXAM RADIOLOGY REPORT [...] Blanc M.D. on 05/04/2022 at 11:43 Normal [facility] VC EXT VENOUS RT LIMITEDon 0 05-04-2022 VC EXT VENOUS RT LIMITED Patient: MIKY FUENTES Exam Date: 05/04/2022 : 1950 Gender:F Ordering : DR WILLARD GAMBOA M.D. Admission #: [id number] Family : Order #: [id number] CLICK HERE TO VIEW EXAM RADIOLOGY REPORT [...] Blanc M.D. on 05/04/2022 at 11:17 Normal [facility] CULTURE URINEon 05-03-2022 CULTURE URINE Culture Observations : LIGHT GROWTH OF MIXED GENITAL LUDWIN. NO POTENTIAL PATHOGENS SEEN. Normal [facility] Comment on above: Performed By: #### U RCX ####[facility] [address] [place] [address]Dr. Alysha Machuca UA RANDOMon 05-03-2022 Bilirubin Ql (U) Negative Normal NEGATIVE [facility] Comment on above: Performed By: #### U A #### [facility] [address] [place] [address] Dr. Alysha Machuca Clarity (U) TURBID Abnormal CLEAR [facility] Comment on above: Performed By: #### U A #### [facility] [address] [place] [address] Dr. Alysha Macuhca Color (U) RED Abnormal YELLOW [facility] Comment on above: Result Comment: Prev iously reported as: YELLOW On 05/03/2022 17:30 By CV2 Performed By: #### U A #### [facility] [address] [place] [address] Dr. Alysha Machuca Glucose Ql (U) Negative Normal NEGATIVE [facility] Comment on above: Performed By: #### U A #### [facility] [address] [place] [address] Dr. Alysha Machuca Hemoglobin Ql (U) LARGE Abnormal NEGATIVE [facility] Comment on above: Performed By: #### U A #### [facility] [address] [place] [address] Dr. Alysha Machuca Ketones Ql (U) Negative Normal NEGATIVE [facility] Comment on above: Performed By: #### U A #### [facility] [address] [place] [address] Dr. Alysha Machuca LEUKOCYTES Negative Normal NEGATIVE [facility] Comment on above: Performed By: #### U A #### [facility] [address] [place] [address] Dr. Alysha Machuca Nitrite Ql (U) Negative Normal NEGATIVE [facility] Comment on above: Performed By: #### U A #### [facility] [address] [place] [address] Dr. Alysha Machuca pH (U) 6.0 [pH] Normal 5-9 [facility] Comment on above: Performed By: #### U A #### [facility] [address] [place] [address] Dr. Alysha Machuca SPEC GRAVITY 1.025 Normal 1.005-<=1.025 [facility] Comment on above: Performed By: #### U A #### [facility] [address] [place] [address] Dr. Alysha Machuca UA PROTEIN 100 mg/dl Abnormal NEGATIVE/ TRACE [facility] Comment on above: Performed By: #### U A #### [facility] [address] [place] [address] Dr. Alysha Machuca Urobilinogen Qn (U) 0.2 {Luis'U}/dL Normal 0.2 - 1.0 [facility] Comment on above: Performed By: #### U A #### [facility] [address] [place] [address] Dr. Alysha Machuca VC ENDOVENOUS ABL 1ST V RTon 04-26-2022 VC ENDOVENOUS ABL 1ST V RT Patient: MIKY FUENTES Exam Date: 04/26/2022 : 1950 Gender:F Ordering : DR WILLARD GAMBOA M.D. Admission #: [id number] Family : Order #: [id number] CLICK HERE TO VIEW EXAM RADIOLOGY REPORT [...] consent was obtained by me and Braxton grace. Time out procedure was performed. The right [...] Willard Gamboa MD on 04/26/2022 at 10:58 [facility] VC CONSULT FOLLOWUPon 2021 VC CONSULT FOLLOWUP Patient: MIKY FUENTES Exam Date: 04/13/2022 : 1950 Gender:F Ordering : DR WILLARD GAMBOA M.D. Admission #: [id number] Family : Order #: [id number] CLICK HERE TO VIEW EXAM RADIOLOGY REPORT [...] Blanc M.D. on 04/13/2022 at 10:59 Normal [facility] VC EXT VENOUS LT LIMITEDon 0 04-13-2022 VC EXT VENOUS LT LIMITED Patient: MIKY FUENTES Exam Date: 04/13/2022 : 1950 Gender:F Ordering : DR WILLARD GAMBOA M.D. Admission #: [id number] Family : Order #: [id number] CLICK HERE TO VIEW EXAM RADIOLOGY REPORT [...] M.D. on 04/13/2022 at 10:56 Normal [facility] Office Visit (Cardiology)on 03-22-2022 Follow-up visit Diagnoses/Problems Assessed Non-ischemic cardiomyopathy (425.4) (I42.8) Hyperlipidemia (272.4) (E78.5) Anticoagulated (V58.61) (Z79.01) Paroxysmal atrial fibrillation (427.31) (I48.0) Morbid obesity with BMI of 40.0-44.9, adult (278.01,V85.41) (E66.01,Z68.41) Never a smoker Orders Hyperlipidemia Renew: Lovastatin 10 MG Oral Tablet; TAKE 1 TABLET DAILY DIRECTED Morbid obesity with BMI of 40.0-44.9, adult Healthy Weight Tips; Status:Complete - Retrospective Authorization; Done: [id number] Paroxysmal atrial fibrillation IO EKG Electrocardiogram- 12 Lead; Status:Complete; Done: [id number] SocHx: Never a smoker Tobacco Use Screening; Status:Complete; Done: [id number] Patient Instructions By signing my name below, [...] failure. With guideline directed therapy in the hoahaoism of maintenance of sinus rhythm her symptoms [...] Oral TabletTake 1 tablet twice a day [place] 3 [place] DIRECTED. Tylenol Arthritis Ext Relief [...] negative for complaint. Vitals Vital Signs Recorded: [id number] 02:06PM Heart Rate47, Apical Ifxhwwhd093, RUE, Sitting Wdpdcvzyh13, RUE, Sitting Height5 ft 5 in Fjcqbc245 lb 6.4 oz BMI Cdvoxjfsij88.17 kg/m2 BSA Calculated2.19 Tobacco Useb) No PHQ-2 [...] no murmurs (more content not included)... Normal Equigerm[facility] Tobacco Screening.on 022 Adult depression screening assessment No [facility] [employer] y 250 DO Work Phone: Fall risk assessment a) No falls within the last year [facility] [employer] DO Work Phone: Tobacco use status [facility] b) No [facility] [employer] DO Work Phone: VC ENDOVENOUS ABL PERFORATIN G LTon 03-22-2022 VC ENDOVENOUS ABL PERFORATING LT Patient: MIKY FUENTES Exam Date: 03/22/2022 : 1950 Gender:F Ordering : DR WILLARD GAMBOA M.D. Admission #: [id number] Family : Order #: [id number] CLICK HERE TO VIEW EXAM RADIOLOGY REPORT PROCEDURE: VEIN CENTER ENDOVENOUS ABLATION VEIN LEFT LEG COMPARISON: None. 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 Normal [facility] KAL SCREEN, IFA, W/REFL TITE [...] indicated. For additional information, please refer to [email or web address]/faq/[email or web address] (This link is being provided for informational/ educational purposes only.) Performed By: #### 8 09, 8268, 4420, 40049, %[id number] #### [facility] [address], [address] [place], [place] [id number] Stitcher Utility: Marek Subramanian MD ANTINUCLEAR ANTIBODIES TITER AND PATTERNon 10-01-2021 KAL PATTERN Nuclear, Centromere Abnormal Ques t Diagnostics Comment on above: Result Comment: Cent romere pattern is associated with limited cutaneous systemic sclerosis, CREST (Calcinosis, Raynaud's, Esophageal dysmotility, Sclerodactyly, Telangiectasia), primary biliary cholangitis (PBC), and other autoimmune diseases. AC-3: Centromere International Consensus on KAL Patterns (https://doi.org/10.1515/dtzz-3333-8201) Performed By: #### 8 09, 8268, 4420, 90308, %[id number] #### [facility] [address], [address] [place], [place] [id number] Stitcher Utility: Marek Subramanian MD KAL PATTERN Nuclear, Homogeneous Abnormal Que st Diagnostics Comment on above: Result Comment: Homo geneous pattern is associated with systemic lupus erythematosus (SLE), drug-induced lupus and juvenile idiopathic arthritis. AC-1: Homogeneous International Consensus on KAL Patterns (https://doi.org/10.1515/zozk-9655-8181) Performed By: #### 8 09, 8268, 4420, 82004, %[id number] #### [facility] [address], [address] [place] [id number] Stitcher Utility: Marek Subramanian MD KAL TITER > OR = 1:1280 Abnormal [facility] Comment on above: Result Comment: Refe rence Range <1:40 Negative 1:40-1:80 Low Antibody Level >1:80 Elevated Antibody Level Performed By: #### 8 09, 8268, 4420, 11880, %[id number] #### [facility] [place] [address] [place] [address] Stitcher Utility: Marek Subramanian MD KAL TITER 1:80 High [facility] Comment on above: Result Comment: A lo w level KAL titer may be present in pre- clinical autoimmune diseases and normal individuals. Reference Range <1:40 Negative 1:40-1:80 Low Antibody Level >1:80 Elevated Antibody Level Performed By: #### 8 09, 8268, 4420, 50389, %[id number] #### [facility] [place] [address] Stitcher Utility: Marek Subramanian MD C-REACTIVE PROTEINon 021 CRP [Mass/Vol] 13.4 mg/L High <8.0 [facility] Comment on above: Performed By: #### 8 09, 8268, 4420, 95027, %[id number] #### [facility] [place] [address] Stitcher Utility: Marek Subramanian MD RHEUMATOID ARTHRITIS DIAGNOS TIC PANEL 1on 10-01-2021 CYCLIC CITRULLINATED PEPTIDE (CCP) AB (IGG) <16 Normal [facility] Comment on above: Result Comment: Refe rence Range Negative: <20 Weak Positive: 20-39 Moderate Positive: 40-59 Strong Positive: >59 Performed By: #### 8 09, 8268, 4420, 75502, %[id number] #### [facility] [place] [address] Stitcher Utility: Marek Subramanian MD INTERPRETATION Normal [facility] Comment on above: Result Comment: These serologic results may be found in 10-20% of patients with polyarthritis that is clinically and radiologically indistinguishable from RA. Performed By: #### 8 09, 8268, 4420, 69226, %[id number] #### [facility] [place] [address] Stitcher Utility: Marek Subramanian MD RHEUMATOID FACTOR <14 Normal <14 [facility] Comment on above: Performed By: #### 8 09, 8268, 4420, 07611, %[id number] #### [facility] [address], [address] [place] [address] Stitcher Utility: Marek Subramanian MD SED RATE BY MODIFIED SILAS Singh 10-01-2021 SED RATE BY MODIFIED WESTLORRIREN 51 mm/h High < OR = 30 [facility] Comment on above: Performed By: #### 8 09, 8268, 4420, 44723, %[id number] #### [facility] [address], [address] [place], [place] [id number] Stitcher Utility: Marek Subramanian MD Tobacco Screening.on 021 Fall risk assessment a) No falls within the last year [facility] 600 DO Work Phone: Tobacco use status CP b) No -[facility] 600 DO Work Phone: Vital Signs Date Time Vital Sign Value Performing Clinician Facility 03-06-2024 09:31-0400 Body height 165.1 cm Nick Perez MD Work Phone: [facility] 03-06-2024 09:31-0400 Body mass index (BMI) [Ratio] 36.78 kg/m2 Nick Perez MD Work Phone: [facility] 03-06-2024 09:31-0400 Body weight 100.25 kg Nick Perez MD Work Phone: [facility] 03-06-2024 09:31-0400 Diastolic blood pressure 58 mm[Hg] Nick Perez MD Work Phone: [facility] 03-06-2024 09:31-0400 Heart rate 44 /min Nick Perez MD Work Phone: [facility] 03-06-2024 09:31-0400 Systolic blood pressure 104 mm[Hg] Nick Perez MD Work Phone: [facility] 12-06-2022 13:27-0500 Body height 165.1 cm Connor Jean Baptiste Work Phone: [facility] 250 DO Work Phone: 12-06-2022 13:27-0500 Body mass index (BMI) [Ratio] 36.94 kg/m2 Connor Marinelli Furlong Work Phone: [facility] 250 DO Work Phone: 12-06-2022 13:27-0500 Body surface area Derived from formula 2.07 m2 Connor Marinelli Furlong Work Phone: [facility] 250 DO Work Phone: 12-06-2022 13:27-0500 Body weight 100.7 kg Connor Lewislong Work Phone: [facility] 250 DO Work Phone: 12-06-2022 13:27-0500 Diastolic blood pressure 84 mm[Hg] Connor Marinelli Furlong Work Phone: [facility] 250 DO Work Phone: 12-06-2022 13:27-0500 Heart rate 43 /min Connor Marinelli Furlong Work Phone: [facility] 250 DO Work Phone: 12-06-2022 13:27-0500 Systolic blood pressure 130 mm[Hg] Connor Marinelli Furlong Work Phone: [facility] 250 DO Work Phone: 06-30-2022 11:43-0400 Blood Pressure Location Yehuda AVITIA [facility] 06-30-2022 11:43-0400 Diastolic blood pressure 69 mm[Hg] Yehuda AVITIA [facility] 06-30-2022 11:43-0400 Heart rate 60 /min Yehuda AVITIA [facility] 06-30-2022 11:43-0400 Respiratory rate 16 /min Yehuda AVITIA [facility] 06-30-2022 11:43-0400 Systolic blood pressure 129 mm[Hg] Yehdua AVITIA [facility] 03-22-2022 14:06-0400 Body height 165.1 cm Connor G Furlong Work Phone: [facility] 250 DO Work Phone: 03-22-2022 14:06-0400 Body mass index (BMI) [Ratio] 42.17 kg/m2 Connor G Furlong Work Phone: [facility] 250 DO Work Phone: 03-22-2022 14:06-0400 Body surface area Derived from formula 2.19 m2 Connor G Furlong Work Phone: [facility] 250 DO Work Phone: 03-22-2022 14:06-0400 Body weight 114.94 kg Connor G Furlong Work Phone: [facility] 250 DO Work Phone: 03-22-2022 14:06-0400 Diastolic blood pressure 70 mm[Hg] Connor G Furlong Work Phone: [facility] 250 DO Work Phone: 03-22-2022 14:06-0400 Heart rate 47 /min Connor G Furlong Work Phone: [facility] 250 DO Work Phone: 03-22-2022 14:06-0400 Systolic blood pressure 114 mm[Hg] Connor G Furlong Work Phone: [facility] 250 DO Work Phone: 08-16-2021 14:38-0400 Body height 165.1 cm Connor Marinelli Furlong Work Phone: [facility] 600 DO Work Phone: 08-16-2021 14:38-0400 Body mass index (BMI) [Ratio] 42.53 kg/m2 Connor Marinelli Furlong Work Phone: [facility] 600 DO Work Phone: 08-16-2021 14:38-0400 Body surface area Derived from formula 2.2 m2 Connor Marinelli Furlong Work Phone: [facility] 600 DO Work Phone: 08-16-2021 14:38-0400 Body weight 115.94 kg Connor Marinelli Furlong Work Phone: [facility] 600 DO Work Phone: 08-16-2021 14:38-0400 Diastolic blood pressure 74 mm[Hg] Connor Marinelli Furlong Work Phone: [facility] 600 DO Work Phone: 08-16-2021 14:38-0400 Heart rate 44 /min Connor Marinelli Furlong Work Phone: [facility] 600 DO Work Phone: 08-16-2021 14:38-0400 Systolic blood pressure 134 mm[Hg] Connor G Furlong Work Phone: [facility] 600 DO Work Phone: Encounters Encounter Date Encounter Type Care Provider Facility Start: 07-29-2024 End: 07-29-2024 Lab Drop off Radha Back [facility] Start: 07-29-2024 End: 07-29-2024 ambulatory Radha X Orzech Facility:[facility] Start: 07-29-2024 End: 07-29-2024 Patient encounter procedure Radha X Orzech [facility] [employer] Start: 07-15-2024 End: 07-15-2024 ambulatory Radha X Orzech Facility:[facility] Start: 07-01-2024 End: 07-01-2024 ambulatory Radha X Orzech Facility:[facility] Start: 07-01-2024 End: 07-01-2024 Patient encounter procedure Radha X Orzech [facility] [employer] Start: 06-10-2024 End: 06-10-2024 ambulatory Radha X Orzech Facility:[facility] Start: 06-10-2024 End: 06-10-2024 Patient encounter procedure Radha X Orzech [facility] [employer] Start: 05-20-2024 End: 05-20-2024 ambulatory [facility] X Orzech [facility] Start: 05-20-2024 End: 05-20-2024 Patient encounter procedure Radha X Orzech [facility] Start: 05-16-2024 End: 05-16-2024 ambulatory Yehuda AVITIA Facility:[facility] Start: 05-16-2024 End: 05-16-2024 Patient encounter procedure Yehuda AVITIA [facility] [employer] Start: 03-26-2024 End: 03-26-2024 ambulatory LESVIA KEITA Not Available Start: 03-06-2024 End: 03-06-2024 Office outpatient visit 25 minutes Nick Perez MD Work Phone: [facility] Comment on above: Mixed hyperlipidemia (Primary Dx); Paroxysmal atrial fibrillation (Multi); Non-ischemic cardiomyopathy (Multi); Never smoked tobacco; BMI 36.0-36.9,adult; Hyperlipidemia, unspecified hyperlipidemia type Start: 03-06-2024 End: 03-06-2024 ambulatory [facility] Start: 02-18-2024 End: 02-19-2024 ambulatory [facility] Start: 02-18-2024 End: 02-18-2024 ambulatory [facility] Start: 12-24-2023 End: 12-24-2023 ambulatory [facility] Start: 12-13-2023 End: 12-13-2023 ambulatory Yehuda AVITIA Facility:[facility] Start: 12-13-2023 End: 12-13-2023 Patient encounter procedure Yehuda AVITIA [facility] Start: 10-26-2023 End: 10-26-2023 ambulatory Yehuda AVITIA Facility:[facility] Start: 10-09-2023 End: 10-09-2023 ambulatory DULCE ALCAZAR Facility:[facility] Start: 03-13-[address] WILLARD Looney y:[facility] Start: 03-05-2023 End: 03-06-[address] YEHUDA AVITIA . Facility:[facility] Start: 02-20-2023 End: 02-21-2023 ambulatory DOCTOR MISC Facility:[facility] Start: 12-06-2022 ambulatory Nick Perez II Facility: Start: 12-06-2022 Office outpatient vi sit 25 minutes Connor Jean Baptiste Work Phone: [facility] 250 DO Work Phone: Start: 11-20-2022 Rx Renewal Connor nj Work Phone: [facility] 250 DO Work Phone: Start: [...] for preprocedural laboratory examination DR LESVIA COWAN [facility] Start: 09-05-2022 End: 09-05-2022 Patient encounter procedure Yehuda AVITIA [facility] Start: 09-01-2022 End: 09-02-[address] CONNOR JEAN BAPTISTE Facility:[facility] Start: 09-01-2022 End: 09-02-2022 Encounter for preprocedural laboratory examination DR CONNOR JEAN BAPTISTE Facility:[facility] Start: 08-31-2022 End: 09-01-[address] CONNOR JEAN BAPTISTE Facility:[facility] Start: 08-22-2022 Rx Renewal Connor nj Work Phone: [facility] 250 DO Work Phone: Start: 08-22-2022 End: 08-23-[address] CONNOR JEAN BAPTISTE Facility:[facility] Start: 08-17-2022 End: 08-18-[address] CONNOR JEAN BAPTISTE Facility:[facility] Start: 08-11-2022 End: 08-11-2022 Lab Drop off DORA ALCAZAR [facility] Start: 08-11-2022 End: 08-11-2022 Patient encounter procedure DORA ALCAZAR [facility] Start: 08-07-2022 End: 08-08-[address] WILLARD GAMBOA Facility:[facility] Start: 08-01-2022 End: 08-02-[address] WILLARD GAMBOA Facility:[facility] Start: 07-17-2022 End: 07-18-[address] WILLARD GAMBOA Facility:[facility] Start: 07-12-2022 End: 07-13-[address] WILLARD GAMBOA Facility:[facility] Start: 06-30-2022 End: 07-01-[address] WILLARD GAMBOA Facility:[facility] Start: 06-30-2022 End: 06-30-2022 Patient encounter procedure Yehuda Catie AVITIA [facility] Start: 06-26-2022 End: 06-27-[address] [...] sit 25 minutes Connor Tavaresng Work Phone: [facility] 250 DO Work Phone: Start: 03-22-2022 End: 03-23-[address] WILLARD GAMBOA Facility:[facility] Start: 01-31-2022 ambulatory Connor Lewismileclem Facility: Start: 12-07-2021 Rx Renewal Connor Tavares ng Work Phone: [facility] 250 DO Work Phone: Start: 08-16-2021 Office outpatient vi sit 15 minutes Connor Tavaresng Work Phone: [facility] [employer] 600 DO Work Phone: Imaging result normal Connor aguilarlong Work Phone: [facility] [employer] 250 DO Work Phone: Patient encounter status Connor Jean Baptiste Work Phone: [facility] [employer] 600 DO Work Phone: Procedures Date Procedure [...] MD Work Phone: Start: 09-05-2022 Cystoscopy Yehuda CORONA Start: 11-30-2020 Cystoscopy Yehuda CORONA Start: 07-14-2020 Cystoscopy Yehuda CORONA Start: 07-08-2020 Cystoscopy Yehuda CORONA Start: 07-17-2019 Extracorporeal shock wave lithotripsy of the bile duct Yehuda AVITIA Comment on above: Right Start: 10-29-2015 Gastric sleeve Yehuda AVITIA Arthroplasty of knee Connor Jean Baptiste Work Phone: Colonoscopy Connor marinelli Work Phone: Esophagogastrostomy, antesternal or antethoracic Connor Tavaresng Work Phone: H/O: hysterectomy Yehuda CORONA Comment on above: Complete Hernia repair Connor Tavares ng Work Phone: Hysterectomy Connor marinelli Work Phone: Lithotripsy Connor marinelli Work Phone: Renal artery stent (physical object) Yehuda AVITIA Repair of ventral hernia Malgorzata AVITIA Plan of Treatment Date Care Activity Detail Author Start: 02-20-2033 DTaP/Tdap/Td Vaccine s (3 - Td or Tdap) DTaP/Tdap/Td Vaccines (3 - Td or Tdap) [facility] Start: 08-28-2024 End: 08-28-2024 Patient encounter procedure 08/28/2024 10:40 AM EDT Office Visit [place] [address] [place] [address] Carmen Chi MD [address] [facility] [address] [place] [address] [facility] Start: 08-14-2024 ambulatory Ambulatory Facility:C [id number] Start: 07-26-2024 Screening for malign ant neoplasm of breast Mammogram [facility] Start: 03-01-2024 COVID-19 Vaccine ( season) COVID-19 Vaccine ( season) [facility] Start: 01-29-2024 FUV, Provider: Nick Perez, Status: Pen, Time: 11:20 AM FUV, Provider: Nick Perez, Status: Pen, Time: 11:20 AM [facility] 250 DO Work Phone: Start: 12-06-2022 FUV, Provider: Nick Perez, Status: Pen, Time: 1:10 PM FUV, Provider: Nick Perez, Status: Pen, Time: 1:10 PM -[facility] 250 DO Work Phone: Start: 01-31-2022 FUV, Provider: Nick Sarkar, Status: Pen, Time: 2:20 PM FUV, Provider: Nick Sarkar, Status: Pen, Time: 2:20 PM -[facility] 250 DO Work Phone: Start: 2010 RSV patient s and/or patients aged 60+ years (1 - 1-dose 60+ series) RSV patients and/or patients aged 60+ years (1 - 1-dose 60+ series) [facility] Start: 1968 Diabetes mellitus screening Diabetes Screening [facility] Start: 1968 Hepatitis C screening Hepatitis C Sc katherine [facility] Start: 1950 Lipid panel Lipid Panel [facility] Start: 1950 Medicare Annual Well ness Visit Medicare Annual Wellness Visit (AWV) [facility] Start: 1950 Screening for malign ant neoplasm of colon [facility] Start: 1950 Screening for osteoporosis Bone Density Scan [facility] Start: 1950 Thyroid stimulating hormone measurement TSH Level [facility] Immunizations Immunization Date Immunization Notes Care Provider Karlee rubio 02-20-2023 tetanus toxoid, redu mariano diphtheria toxoid, and acellular pertussis vaccine, adsorbed Yehuda AVITIA [facility] 10-15-2022 Fluzone High-Dose Quadrivalent 0.7 ML Intramuscular Suspension Prefilled Syringe Connor G M.Seteklong Work Phone: [facility] [employer] 250 DO Work Phone: 10-15-2022 influenza virus vacc ine, unspecified formulation Yehuda AVITIA [facility] 10-15-2022 influenza, high dose seasonal, preservative-free Nick Perez MD Work Phone: [facility] Work Phone: 04-29-2022 Comirnaty 30 MCG/0.3 ML Intramuscular Suspension Connor G M.Seteklong Work Phone: [facility] [employer] 250 DO Work Phone: 04-29-2022 SARS-CoV-2 mRNA ([id number] e) vaccine Yehudagerry AVITIA [facility] 09-08-2021 influenza virus vacc ine, unspecified formulation Yehudagerry AVITIA [facility] 08-29-2021 Fluzone High-Dose Quadrivalent 0.7 ML Intramuscular Suspension Prefilled Syringe Connor G M.Seteklong Work Phone: [facility] 250 DO Work Phone: 08-29-2021 influenza virus vacc ine, unspecified formulation Yehuda AVITIA [facility] 08-29-2021 influenza, high dose seasonal, preservative-free Nick Perez MD Work Phone: [facility] Work Phone: 08-29-2021 Pfizer-BioNTech COVI D-19 Vacc 30 MCG/0.3ML Intramuscular Suspension Connor Joseph Furlong Work Phone: [facility] 12-23-2020 Pfizer-BioNTech COVI D-19 Vacc 30 MCG/0.3ML Intramuscular Suspension Connor G Furlong Work Phone: [facility] 12-01-2020 Pfizer-BioNTech COVI D-19 Vacc 30 MCG/0.3ML Intramuscular Suspension Connor G Furlong Work Phone: [facility] 09-13-2020 pneumococcal polysaccharide vaccine, 23 valent Connor G Furlong Work Phone: [facility] 09-03-2020 influenza virus vacc ine, unspecified formulation Accept Software [facility] 09-03-2020 influenza, high dose seasonal, preservative-free Nick Perez MD Work Phone: [facility] Work Phone: 09-03-2020 influenza, injectabl e, quadrivalent, contains preservative Connor G Furlong Work Phone: [facility] 600 DO Work Phone: 08-29-2020 influenza virus vacc ine, unspecified formulation [employer] [facility] 08-29-2020 influenza, high dose seasonal, preservative-free Connor G Furlong Work Phone: [facility] 250 DO Work Phone: 08-29-2020 pneumococcal polysaccharide vaccine, 23 valent Connor G Furlong Work Phone: [facility] 08-11-2020 influenza virus vacc ine, unspecified formulation Yehuda AVITIA [facility] 08-11-2020 influenza, seasonal, injectable Connor G Furlong Work Phone: [facility] 600 DO Work Phone: 07-29-2020 influenza virus vacc ine, unspecified formulation Yehuda AVITIA [facility] 07-29-2020 influenza, seasonal, injectable Connor G Furlong Work Phone: [facility] 250 DO Work Phone: 09-02-2019 influenza virus vacc ine, unspecified formulation Yehuda [employer] [facility] 09-02-2019 influenza, high dose seasonal, preservative-free Connor G Furlong Work Phone: [facility] 600 DO Work Phone: 08-29-2019 influenza virus vacc ine, unspecified formulation Connor G Furlong Work Phone: [facility] 08-11-2019 influenza virus vacc ine, unspecified formulation Yehuda AVITIA [facility] 06-17-2019 zoster vaccine recombinant Connor G Furlong Work Phone: [facility] 05-29-2019 zoster vaccine recombinant Connor G Furlong Work Phone: [facility] 04-15-2019 zoster vaccine recombinant Connor G Furlong Work Phone: [facility] 03-29-2019 zoster vaccine recombinant Connor G Furlong Work Phone: [facility] 08-29-2018 influenza virus vacc ine, unspecified formulation Connor G Furlong Work Phone: [facility] 250 DO Work Phone: 09-27-2017 influenza virus vacc ine, unspecified formulation [employer] [facility] 09-27-2017 Influenza, injectabl e, Madin Ese Canine Kidney, preservative free, quadrivalent Connor G Furlong Work Phone: [facility] 600 DO Work Phone: 09-26-2017 influenza virus vacc ine, unspecified formulation Connor G Furlong Work Phone: [facility] DO Work Phone: 10-19-2016 influenza virus vacc ine, unspecified formulation [employer] [facility] 10-19-2016 seasonal influenza, intradermal, preservative free Connor G Furlong Work Phone: [facility] 600 DO Work Phone: 10-06-2016 influenza virus vacc ine, unspecified formulation Yehuda [employer] [facility] 10-06-2016 influenza, seasonal, injectable, preservative free Connor G Furlong Work Phone: [facility] 600 DO Work Phone: 04-10-2016 pneumococcal conjuga te vaccine, 13 valent Connor G Furlong Work Phone: [facility] 04-06-2016 pneumococcal conjuga te vaccine, 13 valent Yeuhda AVITIA [facility] 08-07-2014 influenza virus vacc ine, unspecified formulation Connor Marinelli Furlong Work Phone: [facility] 250 DO Work Phone: 08-07-2014 influenza, unspecifi ed formulation Yehuda AVITIA [facility] 07-29-2014 influenza virus vacc ine, unspecified formulation Connor Marinelli Furlong Work Phone: [place] [address] DO Work Phone: 07-29-2014 pneumococcal polysaccharide vaccine, 23 valent Connor G Furlong Work Phone: [facility] 10-02-2013 pneumococcal conjuga te vaccine, 13 valent Connor Marinelli Furlong Work Phone: [facility] 02-14-2013 zoster vaccine, live Connor Marinelli Furlong Work Phone: [facility] 10-29-2012 influenza virus vacc ine, unspecified formulation Connor Marinelli Furlong Work Phone: [place] [address] DO Work Phone: 10-29-2012 pneumococcal polysaccharide vaccine, 23 valent Connor G Furlong Work Phone: [facility] 250 DO Work Phone: 10-29-2010 pneumococcal polysaccharide vaccine, 23 valmarshall Perez MD Work Phone: [facility] Work Phone: 02-21-2010 pneumococcal polysaccharide vaccine, 23 valent Connor G Furlong Work Phone: [facility] 02-21-2010 tetanus toxoid, redu mariano diphtheria toxoid, and acellular pertussis vaccine, adsorbed Connor Tavaresng Work Phone: [facility] 12-20-2009 novel influenza-H1N1 -09, preservative-free, injectable Connor Lewislong Work Phone: [facility] 600 DO Work Phone: 11-29-2009 novel influenza-H1N1 -09, preservative-free, injectable Connor Lewislong Work Phone: [facility] 250 DO Work Phone: 09-06-1999 TD(adult) unspecifie d formulation; Translations: [Td(adult) unspecified formulation] Connor Tavaresng Work Phone: [facility] influenza virus vacc ine, unspecified formulation Connor Lewislong Work Phone: [facility] 250 DO Work Phone: Comment on above: 2010Jul 2012 pneumococcal polysaccharide vaccine, 23 valent Connor Lewisng Work Phone: [facility] 250 DO Work Phone: Comment on above: 2010 Payers Date Payer Category Payer Medicare MEDICARE MEDICAR E PART A AND B [id number] 2015-Present [address] [place] [address] [id number] 2015 Unknown 2015 Unknown [id number] 1959 Medicare [id number] 1959 Unknown [id number] 1950 Unknown [id number] 2.16.840.1.940024.3.579.2.356 1950 Unknown [id number] 2.16.840.1.918981.3.579.2.356 1950 Unknown [id number] 2.16.840.1.040487.3.579.2.356 1950 Unknown [id number] 2.16.840.1.403580.3.579.2.593 1950 Unknown [id number] 2.16.840.1.576057.3.579.2.593 1950 Unknown [id number] 2.16.840.1.694111.3.579.2.593 1950 Unknown [id number] 2.16.840.1.973812.3.579.2.593 1950 Unknown [id number] 2.16.840.1.606615.3.579.2.593 1950 Unknown [id number] 2.16.840.1.206293.3.579.2.593 1950 Unknown [id number] 2.16.840.1.246008.3.579.2.593 1950 Unknown [id number] 2.16.840.1.975761.3.579.2.593 1950 Unknown [id number] 2.16.840.1.767321.3.579.2.593 1950 Unknown [id number] 2.16.840.1.893112.3.579.2.593 1950 Unknown [id number] 2.16.840.1.624451.3.579.2.593 1950 Unknown [id number] 2.16.840.1.686381.3.579.2.593 1950 Unknown [id number] 2.16.840.1.816069.3.579.2.593 1950 Unknown [id number] 2.16.840.1.040819.3.579.2.593 1950 Unknown [id number] 2.16.840.1.029680.3.579.2.593 1950 Unknown [id number] 2.16.840.1.891184.3.579.2.593 1950 Unknown [id number] 2.16.840.1.513783.3.579.2.593 1950 Unknown [id number] 2.16.840.1.717236.3.579.2.593 1950 Unknown [id number] 2.16.840.1.517367.3.579.2.593 1950 Unknown [id number] 2.16.840.1.446613.3.579.2.593 1950 Unknown [id number] 2.16.840.1.007965.3.579.2.593 1950 Unknown [id number] 2.16840.1.787104.3.579.2.593 1950 Unknown [id number] 2.16.840.1.147743.3.579.2.593 1950 Unknown [id number] 2.16.840.1.062022.3.579.2.593 1950 Unknown [id number] 2.16.840.1.690234.3.579.2.593 1950 Unknown [id number] 2.16840.1.359336.3.579.2.593 1950 Unknown [id number] 2.16.840.1.697018.3.579.2.593 1950 Unknown [id number] 2.16.840.1.124920.3.579.2.593 1950 Unknown [id number] 2.16.840.1.718191.3.579.2.593 1950 Unknown [id number] 2.16.840.1.960836.3.579.2.593 1950 Unknown [id number] 2.16.840.1.819325.3.579.2.593 1950 Unknown [id number] 2.16.840.1.935703.3.579.2.593 1950 Unknown [id number] 2.16.840.1.830422.3.579.2.593 1950 Unknown [id number] 2.16.840.1.781364.3.579.2.593 1950 Unknown [id number] 2.16.840.1.719980.3.579.2.593 1950 Unknown [id number] 2.16.840.1.786698.3.579.2.1286 1950 Unknown [id number] 2.16.840.1.445164.3.579.2.1286 1950 Unknown [id number] 2.16.840.1.261830.3.579.2.1259 1950 Unknown [id number] 2.16.840.1.791358.3.579.2.1259 1950 Unknown [id number] 2.16.840.1.818578.3.579.2.72 1950 Unknown [id number] 2.16.840.1.127105.3.579.2.72 1950 Unknown [id number] 2.16.840.1.257589.3.579.2.72 1950 Unknown [id number] 2.16.840.1.048307.3.579.2.727 1950 Unknown [id number] 2.16.840.1.083709.3.579.2.72 1950 Unknown [id number] 2.16.840.1.052046.3.579.2.727 1950 Unknown [id number] 2.16.840.1.768596.3.579.2.72 1950 Unknown [id number] 2.16.840.1.031176.3.579.2.727 1950 Unknown [id number] 2.16.840.1.921792.3.579.2.727 1950 Unknown [id number] 2.16.840.1.112198.3.579.2.1244 1950 Unknown [id number] 2.16.840.1.129614.3.579.2.1244 1950 Unknown [id number] 2.16.840.1.176344.3.579.2.727 1950 Unknown [id number] 2.16.840.1.040984.3.579.2.727 Social History Date Type Detail Facility Start: 03-06-2024 Never a smoker Never a smoker [facility] 600 DO Work Phone: Start: 12-28-2021 End: 07-15-2024 Tobacco smoking status Never smoked tobacco (finding) [facility] Tobacco smoking status Never [facility] Start: 03-06-2024 Sex Assigned At Female [facility] Start: 08-17-2023 Tobacco use and exposure Smokeless tobacco non-user [facility] Work Phone: Start: 03-06-2024 Alcoholic beverage intake Lifetime non-drinker (finding) [facility] Work Phone: Start: 1950 Sex assigned at Not on file [facility] Work Phone: Start: 02-25-2024 End: 03-06-2024 Exposure to SARS-CoV-2 (event) Not sure [facility] Functional Status Date Assessment Result Facility 08-24-2022 Functional Status N/A [facility] 06-30-2022 Functional Status N/A [facility] Clinical Notes 06-30-2022 to 07-29-2024 Nick Perez MD - 03/06/2024 9:30 AM EDTPatient Instructions Note Date & Type Note Facility 07-29-2024 Evaluation + Plan note Diagnostic Tests PendingUroVysion Fish and Urine Cyto ([facility]) 07/29/24 [facility] 07-15-2024 Note Patient Education Urology Kidney Stones [...] these instructions at home: Medicines ? Take ugis-yti-htojsdd and prescription medicines only as told by [...] provider. Document Revised: 06/08/2023 Document Reviewed: 06/08/2023 [employer] Patient Education ? 2023 [employer] Hematuria, Adult Hematuria is blood in the [...] identify the cause (more content not included)... [facility] 03-06-2024 History of Present illness Narrative Subjective [...] once daily., Disp: 90 tablet, Rfl: 3 grdpdmqs-dlc-wsio-FA-vit K-lut (Centrum Silver Women) 8 mg iron-400 mcg-50 mcg tablet, Take 1 tablet by mouth once daily., Disp: , Rfl: omega-3 fatty acids-fish oil (One-Per-Day [place]-3) 684-1,200 mg capsule, Take 1 capsule (1,200 [...] Scribe Attestation By signing my name below, IKimberley LPN, Scribe attest that this documentation has been prepared [...] discussion and plan. documented in this encounter [facility] Work Phone: 03-06-2024 Instructions Ivett Mcpherson LPN [...] of your visit. documented in this encounter [facility] Work Phone: 09-05-2022 Hospital Discharge instructions Patient [...] AVITIA Address: [facility] [address] [place] [address]- Business (1) When:03/05/2023 12:06:31 [facility] 06-30-2022 Hospital Discharge instructions Patient Education 06/30/2022 12:01:44 Kidney Stones, Fszy-go-Vabc Kidney Stones Kidney stones are rock-like masses [...] Follow these instructions at home: Medicines Take dsif-ftf-ljhqxdg and prescription medicines only as told by [...] 04/02/2009 Document Revised: 03/02/2020 Document Reviewed: 03/02/2020 [employer] Patient Education 2020 [employer] Follow Up Care 12/28/2021 15:15:51 With:Yehuda AVITIA MD, URL Address: [address] [place], [place] [address]- When: Unknown [facility] Evaluation + Plan note Future Appointments Appointment Date:03/02/2023 11:00:00 AM Scheduled Provider:Yehuda AVITIA MD Location:[facility] Appointment Type:URO Office Visit [facility] Evaluation + Plan note Future Appointments Appointment Date:03/02/2023 11:00:00 AM Scheduled Provider:Yehuda AVITIA MD Location:[facility] Appointment Type:URO Office Visit Diagnostic Tests PendingUrine Culture 08/11/22 [facility] Evaluation + Plan note Future Appointments Appointment Date:03/02/2023 11:00:00 AM Scheduled Provider:Yehuda AVITIA MD Location:[facility] Appointment Type:URO Office Visit Diagnostic Tests PendingUroVysion Fish and Urine Cyto ([facility]) 09/05/22 [facility] Evaluation + Plan note Future Appointments Appointment Date:05/16/2024 10:45:00 AM Scheduled Provider:Yehuda AVITIA MD Location:[facility] Appointment Type:URO Office Visit [facility] Evaluation + Plan note Future Appointments Appointment Date:05/20/2024 11:00:00 AM Scheduled Provider:RAAD Back APRN, [place] X Location:[facility] Appointment Type:URO Office Visit [facility] Evaluation + Plan note Future Appointments Appointment Date:06/10/2024 03:00:00 PM Scheduled Provider:RAAD Back APRN Radha Marianne Location:[facility] Appointment Type:URO Office Visit [facility] Evaluation + Plan note Future Appointments Appointment Date:07/01/2024 02:30:00 PM Scheduled Provider:RAAD Back APRN Radha Marianne Location:[facility] Appointment Type:URO Office Visit [facility] Evaluation note Diagnosis Mixed hyperlipidemia- Primary Paroxysmal atrial fibrillation (Multi) Atrial fibrillation Non-ischemic cardiomyopathy (Multi) Other primary cardiomyopathies Never smoked tobacco BMI 36.0-36.9,adult Hyperlipidemia, unspecified hyperlipidemia type documented in this encounter [facility] Work Phone: History of Present illness NarrativePatient returns in follow-up of problems as noted. In the interim she is done well. She has none of the symptoms of cardiomyopathy that preceded her original diagnosis of heart failure. With guideline directed therapy in the hoahaoism of maintenance of sinus rhythm her symptoms [...] merits of diet exercise and weight loss. [facility] Work Phone: History of Present illness [...] the merits of diet and weight loss. [facility] DO Work Phone: Hospital course Narrative No data available for this section [facility] Hospital Discharge instructions No data available for this section [facility] progress note No data available for this section [facility] Chief Complaint * I am doing [...] Procedures ECG 12 Lead Nick Perez MD [address] [place] [address] 2, [address] [address] Referral ID Status Reason Start Date Expiration Date V isits Requested Visits Authorized [id number] Authorized 03/06/2024 03/06/2025 1 1 Specialty Diagnoses / Procedures Referred By Contac t Referred To Contact Cardiology Diagnoses Non-ischemic cardiomyopathy (Multi) Procedures Follow Up In Cardiology Nick Perez MD [address] [place] [address] 2, [address] [address] Carmen Chi MD [address] [place] [address] 2, [address] [address] Referral ID Status Reason Start Date Expiration Date V isits Requested Visits Authorized [id number] Authorized 03/06/2024 03/06/2025 1 1 Additional Source Comments INFORMATION SOURCE (unrecogn ized section and content) DATE CREATED AUTHOR 06/26/2022 [facility] DATE CREATED AUTHOR AUTHOR'S ORGANIZ ATION 12/07/2022 [facility] DATE CREATED AUTHOR AUTHOR'S ORGANIZ ATION 12/07/2022 [facility] DATE CREATED AUTHOR AUTHOR'S ORGANIZ ATION 03/09/2023 [facility] DATE CREATED AUTHOR AUTHOR'S ORGANIZ ATION 02/18/2024 [facility] DATE CREATED AUTHOR AUTHOR'S ORGANIZ ATION 02/19/2024 [facility] DATE CREATED AUTHOR AUTHOR'S ORGANIZ ATION 03/30/2024 [facility] DATE CREATED AUTHOR AUTHOR'S ORGANIZ ATION 07/17/2024 [facility] DATE CREATED AUTHOR AUTHOR'S ORGANIZ ATION 07/30/2024 [facility] DATE CREATED AUTHOR AUTHOR'S ORGANIZ ATION 07/31/2024 [facility] Care Team (unrecognized sect ion and content) Cleaner Signs Relationship Specialty Start Date End Date DebbiemileConnor jnDO [address] [place] [address] PCP - General 10/29/19 Reason for Visit (unrecogniz ed section and content) Reason Comments Follow-up 2mo Specialty Diagnoses / Procedures Referred By Isa t Referred To Contact Cardiology Diagnoses Paroxysmal atrial fibrillation (Multi) Procedures Follow Up In Cardiology Nick Perez MD [address] [address], [address] [address] Referral ID Status Reason Start Date Expiration Date V isits Requested Visits Authorized [id number] Authorized 12/24/2023 12/23/2024 1 1 FOR RECORDS [...] BE BASED ON THE PRIMARY CLINICAL RECORDS. [facility] [employer] [facility]. provides no warranty or guarantee of the accuracy or completeness of information in this document.
== END 2024-08-05 15:04 | disposition home or self-care (01) ==
LOC: MAMMO 15:03
PROVIDERS: PCP Family Medicine; Visit Provider Family Medicine
DX: Z12.31 Encounter for screening mammogram for malignant neoplasm of breast (principal); Z80.8 Family history of malignant neoplasm of other organs or systems; Z80.0 Family history of malignant neoplasm of digestive organs
CPT/HCPCS: 77063; 77067

== ENCOUNTER 2024-09-11 11:03 | Observation (INO) | payer MEDICARE, OTHER, SELFPAY ==
[2024-07-28 14:36] VITALS: BP 141/59; PULSE 49; TEMP 36.4; O2SAT 100; BMI 36.4
[2024-09-11] VITALS (25 sets, daily range): BP systolic 127–161; BP diastolic 53–94; PULSE 50–74; TEMP 36–36.8; O2SAT 95–100; BMI 36.3
--- NOTE | 2024-09-11 | FL_ITS ---
The [address] [address] Patient Name: MIKY NOLEN MRN: [id number] date: 1950 Sex: F Assigned Patient Location: SURGOUT Current Patient Location: ICU Accession/Order Number: [id number] Exam Date: 09/11/2024 08:00 Report Date: 09/17/2024 11:42 At the request of: YEHUDA HASSAN Procedure: FL fluoroscopy <1hr NON-READ EXAM: FL fluoroscopy <1hr NON-READ HISTORY: TECHNIQUE: FINDINGS: Please see Operative Report. Electronically authenticated by: RADIOLOGIST NO Date: 09/17/2024 11:42
--- OUTSIDE RECORDS SUMMARY | 2024-09-11 07:13 | XMS_ITS | CCD ---
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 Name Role Phone Markel Connor Marinelli Unavailable Unavailable Unavailable CONNOR ANAYA Primary Care Physician Nick Richardson II Attending Unav ailelisabeth Richardson II, Nick Blackman Referring Unav ailable Markel, Connor Sow Primary Care Unavailab le Markel, Connor Sow Primary Care Unavailab le Debra GOSS, Nick Blackman Attending Unav ailable Debra GOSS, Nick Blackman Referring Unav ailable Furlong, Connor Torito Primary [...] DOCTOR Admitting Unavailable MISC, DOCTOR Attending Unavailable HASSAN ., DR BLACKMAN Consulting Unavailable FURLONG, DR CONNOR Marinelli Primary Care Unavailable MISC, DOCTOR Consulting Unavailable HASSAN ., DR BLACKMAN Admitting Unavailable HASSAN ., DR BLACKMAN Attending Unavailable HASSAN ., DR BLACKMAN Consulting Unavailable FURLONG, DR CONNOR Marinelli Primary Care Unavailable Kyle Cheney Consulting Unavailable BEE, DR WILLARD Pittman Consulting Unavailable BEE, DR WILLARD Pittman Admitting Unavailable FURLONG, DR CONNOR Marinelli Primary Care Unavailable WEST, DR WILLARD Pittman Attending Unavailable Kyle Cheney Consulting Unavailable WEST, DR WILLARD Pittman Consulting Unavailable WEST, DR WILLARD Pittman Admitting Unavailable FURLONG, DR CONNOR Marinelli Primary Care Unavailable WEST, DR WILLARD Pittman Attending Unavailable ZieberKyle Consulting Unavailable HASSAN ., DR BLACKMAN Admitting Unavailable HASSAN ., DR BLACKMAN Attending Unavailable HASSAN ., DR BLACKMAN Consulting Unavailable FURLONG, DR CONNOR Marinelli Primary Care Unavailable Zieber, Kyle Consulting Unavailable HASSAN ., DR BLACKMAN Admitting Unavailable HASSAN ., DR BLACKMAN Attending Unavailable HASSAN ., DR BLACKMAN Consulting Unavailable FURLONG, DR CONNOR Marinelli Primary [...] FURLONG, DR CONNOR Marinelli Primary Care Unavailable HASSAN ., DR BLACKMAN Admitting Unavailable HASSAN ., DR BLACKMAN Attending Unavailable HASSAN ., DR BLACKMAN Consulting Unavailable SANTHOSH NICK Consulting Unavailable FURLONG, [...] DOCTOR Admitting Unavailable MISC, DOCTOR Attending Unavailable HASSAN ., DR BLACKMAN Consulting Unavailable FURLONG, DR CONNOR Marinelli Primary [...] Unavailable WEST, DR WILLARD Pittman Attending Unavailable HASSAN ., DR BLACKMAN Admitting Unavailable HASSAN ., DR BLACKMAN Attending Unavailable HASSAN ., DR BLACKMAN Consulting Unavailable FURLONG, DR CONNOR Marinelli Primary Care Unavailable DALLAS, DR WILLARD Pittman Consulting Unavailable WEST, DR WILLARD Pittman Admitting Unavailable FURLONG, DR CONNOR Marinelli Primary Care Unavailable DALLAS, DR WILLARD Pittman Attending Unavailable MISC, DOCTOR Admitting Unavailable MISC, DOCTOR Attending Unavailable MISC, DOCTOR Consulting Unavailable FURLONG, DR CONNOR Marinelli Primary Care Unavailable Furlong Connor ESCALANTE Primary Care Provider Orzech, Radha X Admitting Unavailable Orzech, Radha X Attending Unavailable Orzech, Radha X Attending Unavailable Orzech, Radha X Attending Unavailable DULCE ALCAZAR Attending Unavailab le HASSANYehuda Attending Unavailable Yehuda HASSAN Attending Unavailable HASSAN, Yehuda Haddad Attending Unavailable Orzech, Radha X Attending Unavailable Orzech, Radha X Attending Unavailable Furlong Connor ESCALANTE Primary Care Provider [phone] FURLONG, CONNOR Marinelli Attending Unavailable FURLONG, CONNOR Marinelli Referring Unavailable FURLONG, CONONR Marinelli Primary Care Unavailable FURLONG, CONNOR Marinelli Attending Unavailable FURLONG, CONNOR Marinelli Referring Unavailable FURLONG, CONNOR Marinelli Primary Care Unavailable FURLONG, CONNOR Marinelli Referring Unavailable FURLONG, CONNOR Marinelli Primary Care Unavailable FURLONG, CONNOR Marinelli Referring Unavailable FURLONG, CONNOR Marinelli Primary Care Unavailable Orzech, Radha X Attending Unavailable Orzech, Radha X Attending Unavailable Orzech, Radha X Admitting Unavailable Yehuda HASSAN Attending Unavailable Furlong Connor ESCALANTE Primary Care Provider NICK RICHARDSON Attending Unavailable FURLONGCONNOR Primary Care Unavailab NICK Rousseau Attending Unavailable FURLONGCONNOR Primary Care Unavailab NICK Rousseau Referring Unavailable CARMEN LOPEZ Attending Unavailable NICK RICHARDSON Referring Unavailable FURLONG, CONNOR SOW Primary Care Unavailab le Connor Anaya MD Primary Care Provider [phone] JR. MCCLAIN GEORGE C Attending Unavaila analisa MCCLAIN JR., GEORGE C Referring Unavaila NANY Akbar Attending Unavailable NANY SWANSON Referring Unavailable Allergies Allergy Classification Reported Allergen(s) Allergy Type Date of Onset Reaction(s) Facility (20 sources) Ciprofloxacin; Translations: [ciprofloxacin] Drug Allergy 12-12-19 Eruption of skin (disorder), Unknown, Rash [facility] (20 sources) Sulfonamides (Antibiotic); Translations: [Sulfa Drugs] Allergy to drug (finding) Eruption of skin (disorder) [facility] (20 sources) corn extract; Translations: [[place]] Drug Allergy 02-18-20 24 Unknown (qualifier value), Other (See Comments) [facility] (13 sources) Dog; Translations: [Dogs] Allergy to substance Unknown (qualifier value) [facility] (20 sources) Mold Extract; Translations: [mold] Drug Allergy 06-21-20 Unknown (qualifier value), Other (See Comments) [facility] (13 sources) Milk Products; Translations: [Milk Products] Food allergy Unknown (qualifier value) [facility] (13 sources) house dust mite allergen extract; Translations: [house dust mite allergen extra] Allergy to substance Unknown (qualifier value) [facility] (2 sources) Ciprofloxacin Drug Allergy 01-31-20 14 [facility] (1 source) house dust allergenic extract Drug Allergy [facility] (2 sources) Lactose Drug Allergy [facility] (1 source) Sulfonamides (Antibiotic) Drug allergy (disorder) [facility] (13 sources) Sulfonamides (Antibiotic); Translations: [SULFA (SULFONAMIDE ANTIBIOTICS)] Drug Intolerance 06-21-20 Unknown, [facility] Work Phone: (7 sources) Sulfamethoxazole / Trimethoprim; Translations: [SULFAMETHOXAZOLE-T RIMETHOPRIM] Drug Allergy 11-13-19 [facility] Medications Current Medications Medication Drug Class(es) Dates Sig (Normalized) Sig (Original) 8 hr acetaminophen 650 mg extended release oral tablet (20 sources) Start: 07-01-2020 take 1 tablet by mouth twice daily Tylenol 8 HR Arthritis Pain 650 mg oral tablet, extended release 650 mg = 1 tab(s), Oral, BID, Refills(s) 0 Start Date: 07/01/20 Status: Ordered take 1 tablet by rosalinda th every eight hours as needed for pain acetaminophen (TYLENOL ARTHRITIS) 650 mg 8 hr tablet Take 1 tablet (650 mg total) by mouth every 8 (eight) hours as needed for pain. Active allopurinol 300 mg oral tablet (20 sources) Xanthine Oxidase Inhibitor Start: 02-02-2022 take 1 tablet by mouth in the morning allopurinoL (ZYLOPRIM) 300 mg tablet Take 1 tablet (300 mg total) by mouth in the morning. 10/21/2022 Active Calcium Carbonate (20 sources) Start: 07-29-2019 take 1 tablet by mouth twice daily Caltrate 600 + D tab(s), Oral, BID Start Date: 07/29/19 Status: Ordered take 1 tablet by rosalinda th in the morning, then take 1 tablet by mouth at mealtime calcium carbonate (OS-DARRON) 600 mg (1,500 mg) tablet Take 1 tablet (600 mg total) by mouth in the morning and 1 tablet (600 mg total) in the evening. Take with meals. Active Caltrate 600+D T ABS Take 1 tablet daily Quantity: 0 Refills: 0 Ordered: 16-Aug-2021 DO Active CALCIUM CARBONATE-VITAMIN D3 ORAL (7 sources) take 1 tablet by mouth in the morning CALCIUM CARBONATE-VITAMIN D3 ORAL Take 1 tablet by mouth in the morning. Active take 1 tablet by mouth once don y CALCIUM CARBONATE-VITAMIN D3 ORAL Take 1 tablet by mouth once daily. Active Centrum Silver (11 sources) Start: 07-01-2020 take 1 tablet by mouth once daily Centrum Silver 1 tab(s), Oral, Daily, Refill(s) 0 Start Date: 07/01/20 Status: Ordered cholecalciferol 0.025 mg oral tablet (17 sources) Vitamin D take 1 tablet by mouth in the morning cholecalciferol 1,000 units tablet Take 1 tablet (1,000 Units total) by mouth in the morning. Active take 1 tablet by mouth in the mo rning cholecalciferol (Vitamin D-[address]) 25 MCG (1000 UT) tablet Take 25 mcg by mouth in the morning and 25 mcg in the evening. Active collagen/biotin/ascorbic acid (COLLAGEN 1500 PLUS C ORAL) (2 sources) collagen/biotin/ ascorbic acid (COLLAGEN 1500 PLUS C ORAL) Take 1 capsule by mouth once daily. Active dronedarone 400 mg oral tablet (20 sources) Antiarrhythmic Sta rt: 9 dronedarone (MULTAQ) 400 mg tablet Take 1 tablet (400 mg total) by mouth as needed. 12/24/2023 Active fexofenadine hydrochloride 180 mg oral tablet (10 sources) Histamine-1 Receptor Antagonist Sta rt: 4 take 1 tablet by mouth in the morning fexofenadine (HANNAH) 180 mg tablet Take 1 tablet (180 mg total) by mouth in the morning. 02/18/2024 Active take 1 tablet by mouth once don y fexofenadine (Hannah) 60 mg tablet Take 1 tablet (60 mg) by mouth once daily. Active krill oil (6 sources) Start: 02-18-2024 take 1 capsule by mouth in the morning hznuy-kg-4-kkp-lhx-iyfzxve-ast (KRILL OIL) 1,183-526-82-80 mg capsule Take 1 capsule by mouth in the morning. 02/18/2024 Active End: 08-18-2024 krill oil 500 mg capsule Bassam e by mouth daily. 08/18/2024 Discontinued (Patient Stopped On Own) levothyroxine sodium 0.112 mg oral tablet (20 sources) l-Thyroxine Start: 08-19-2024 End: 08-19-2024 take 1 tablet by mouth in the morning levothyroxine (SYNTHROID, LEVOTHROID) 112 MCG tablet Take 1 tablet (112 mcg total) by mouth in the morning. 90 tablet 1 08/19/2024 Active Start: 07-24-2024 End: 08-19-2024 take 1 tablet by mouth once daily in the morning levothyroxine (SYNTHROID, LEVOTHROID) 125 MCG tablet take 1 tablet by mouth every morning 90 tablet 1 07/24/2024 08/19/2024 Discontinued (Dose adjustment) Start: 07-29-2019 take 1 capsule by [facility] once daily levothyroxine 137 mcg (0.137 mg) oral capsule 137 microgram = 1 cap(s), Oral, Daily Start Date: 07/29/19 Status: Ordered End: 08-28-2024 take 1 tablet by mouth in the morning levothyroxine (Synthroid, Levoxyl) 137 MCG tablet Take 137 mcg by mouth in the morning. Active lisinopril 2.5 mg oral tablet (20 sources) Angiotensin Converting Enzyme Inhibitor Start: 06-30-2022 End: 03-06-2025 take 1 tablet by mouth once daily lisinopriL (PRINIVIL,ZESTRIL) 2.5 mg tablet Indications: Proteinuria, unspecified TAKE 1 TABLET BY MOUTH EVERY DAY 90 tablet 1 09/17/2023 Active loratadine 10 mg oral tablet (12 sources) Start: 07-29-2019 take 10 mg by mouth once daily Claritin 10 mg, Oral, Daily, Refills(s) 0 Start Date: 07/29/19 Status: Ordered End: 03-06-2024 take 1 capsule by mouth once daily loratadine 10 mg capsule Take 1 capsule by mouth once daily. 03/06/2024 Discontinued (Other) lovastatin 10 mg oral tablet (20 sources) HMG-CoA Reductase Inhibitor Start: 10-21-2022 End: 08-19-2024 take 1 tablet by mouth in the morning lovastatin (MEVACOR) 10 mg tablet Take 1 tablet (10 mg total) by mouth in the morning. 90 tablet 3 08/19/2024 Active Abelino Krill Oil (4 sources) Start: 07-29-2019 take 1 capsule by mouth once daily Abelino Krill Oil Abelino Krill Oil, one cap., Oral, Daily Start Date: 07/29/19 Status: Ordered Multiple Vitamins-Minerals (CENTRUM SILVER ADULT 50+ PO) (3 sources) Multiple Vitamins-Minerals (CENTRUM SILVER ADULT 50+ PO) as directed Orally Active wfrlwdgk-sye-chet-F A-vit K-lut (Centrum Silver Women) 8 mg iron-400 mcg-50 mcg tablet (2 sources) take 1 tablet by mouth once daily ifxbheyo-aiv-sqbz-FA -vit K-lut (Centrum Silver Women) 8 mg iron-400 mcg-50 mcg tablet Take 1 tablet by mouth once daily. Active lttxfauu-eql-xdcp-F A-vit K-lut (CENTRUM SILVER WOMEN) 8 mg iron-400 mcg-50 mcg tablet (5 sources) take 1 tablet by mouth once in the morning rlkdfhxg-ztr-ajea-FA -vit K-lut (CENTRUM SILVER WOMEN) 8 mg iron-400 mcg-50 mcg tablet Take 1 tablet by mouth in the morning. Active [place]-3 Fatty Acids (OMEGA-3 FISH OIL PO) (3 sources) [place]-3 Fatty Ac ids (OMEGA-3 FISH OIL PO) Take by mouth Active omega-3 fatty acids-fish oil (One-Per-Day [place]-3) 684-1,200 mg capsule (2 sources) omega-3 fatty acids-fish oil (One-Per-Day [place]-3) 684-1,200 mg capsule Take 1 capsule (1,200 mg) by mouth once daily. Active OTC joint supplement (11 sources) Start: 07-01-2020 take 1 tablet by mouth once daily OTC joint supplement OTC joint supplement, one tab, Oral, Daily Start Date: 07/01/20 Status: Ordered potassium bicarbonate 25 meq effervescent oral tablet (10 sources) Start: 10-26-2023 take 1 tablet by mouth twice daily EFFER-K 25 mEq disintegrating tablet DISSOLVE 1 (ONE) TABLET DIRECTED and take BY MOUTH TWICE DAILY 12/08/2023 Active rivaroxaban 20 mg oral tablet (20 sources) Factor Xa Inhibitor Start: 07-29-2019 End: 03-06-2024 take 1 tablet by mouth in the morning XARELTO 20 mg tablet tablet Take 1 tablet (20 mg total) by mouth in the morning. 10/21/2022 Active Vitamin D3 (11 sources) Start: 07-29-2019 Vitamin D3 1,0 00 International_Unit, Oral, Daily, Refills(s) 0 Start Date: 07/29/19 Status: Ordered Completed/Discontinued Medications Medication Drug Class(es) Dates Sig (Normalized) Sig (Original) 5 ml bupivacaine hydrochloride 5 mg/ml injection (4 sources) Amide Local Anesthetic Start: 09-02-2024 End: 09-02-2024 bupivacaine PF (Marcaine) 0.5 % injection 1 mL Start: 09-02-2024 End: 09-02-2024 1 mL, Injection, Once PRN Pr ocedure, Starting on Sun09/02/24 at 1414, For 1 dose Centrum Silver 50+Women Oral Tablet (7 sources) take 1 tablet by mouth once daily Centrum Silver 50+Women Oral Tablet TAKE 1 TABLET DAILY. Quantity: 0 Refills: 0 Ordered: 16-Aug-2021 DO Active cephalexin 500 mg oral capsule (1 source) Cephalosporin Antibacterial Start: 2021 take 1 capsule by mouth once daily Keflex 500 mg Cap 500 mg = 1 cap(s), Oral, Daily, Take 1 capsule the day before the procedure and 1 capsule after the procedure, # 2 cap(s), Refills(s) 0, Pharmacy: [id number], 165, cm, 06/30/22 11:48:00 EDT, Height/Length Dosing, 113, kg, 06/30/22 11:4... Start Date: 08/22/22 Status: Ordered Collagen Ultra Oral Capsule (7 sources) take 1 capsule by mouth once daily Collagen Ultra Oral Capsule TAKE 1 CAPSULE Daily Quantity: 0 Refills: 0 Ordered: 16-Aug-2021 DO Active K-Effervescent 25 mEq oral tablet, effervescent (7 sources) Start: 2022 take 1 tablet by mouth twice daily K-Effervescent 25 mEq oral tablet, effervescent 25 mEq = 1 tab(s), Oral, BID, # 60 tab(s), Refills(s) 11, Pharmacy: [id number], 165, cm, 10/26/23 8:42:00 EST, Height/Length Dosing, 97.5, kg, 10/26/23 8:42:00 EST, Weight Dosing Start Date: 10/26/23 Status: Ordered 1 ml methylPREDNISolone acetate 40 mg/ml injection (4 sources) Corticosteroid Start: 2023 End: 2023 methylPREDNISolone acetate (DEPO-Medrol) injection 40 mg Start: 09-02-2024 End: 09-02-2024 40 mg, Intra-articular, Once PRN Procedure, Starting on Sun09/02/24 at 1414, For 1 dose [place] 3 CAPS (7 sources) [place] 3 CAPS BASSAM E DIRECTED. Quantity: 0 Refills: 0 Ordered: 16-Aug-2021 DO Active Problems Active Problems Problem Classification Problem Date Documented Da te Episodic/Chronic Acute and unspecified renal failure (5 sources) Renal failure syndrome; Translations: [Unspecified kidney failure] Onset: 07-23-2023 07-23-2023 Chronic Cardiac dysrhythmias (20 sources) Paroxysmal atrial fibrillation; Translations: [Atrial fibrillation] Onset: 08-17-2023 03-06-2024 Chronic Cardiac dysrhythmias (1 source) Sinus bradycardia; Translations: [Bradycardia, unspecified] 08-28-2024 Episodic Chronic kidney disease (2 sources) Chronic kidney disease, stage 2 (mild); Translations: [Chronic kidney disease, stage 2 (mild)] Onset: 02-18-2024 Chronic Diabetes mellitus with complications (2 sources) Type 2 diabetes mellitus with diabetic chronic kidney disease; Translations: [Type 2 diabetes mellitus with diabetic chronic kidney disease] Onset: 02-18-2024 Chronic Disorders of lipid metabolism (20 sources) Hyperlipidemia; Translations: [Other and unspecified hyperlipidemia] Onset: 07-23-2023 03-06-2024 Chronic Essential hypertension (20 sources) Hypertensive disorder; Translations: [Essential (primary) hypertension] Onset: 02-20-2023 08-25-2019 Chronic Genitourinary symptoms and ill-defined conditions (16 sources) Genuine stress incontinence; Translations: [Stress incontinence (female) (male)] Onset: 07-23-2023 08-16-2020 Chronic Heart valve disorders (11 sources) Irregular heart beat 08-25-2019 Episodic Hypertension with complications and secondary hypertension (2 sources) Hypertensive chronic kidney disease with stage 1 through stage 4 chronic kidney disease, or unspecified chronic kidney disease; Translations: [Hypertensive chronic kidney disease with stage 1 through stage 4 chronic kidney disease, or unspecified chronic kidney disease] Onset: 02-18-2024 Chronic Joint disorders and dislocations; trauma-related (4 sources) Chondromalacia of right patella; Translations: [Chondromalacia patellae, right knee] 09-02-2024 Chronic Nutritional deficiencies (1 source) Vitamin D deficiency, unspecified; Translations: [VITAMIN D DEFICIENCY UNSPECIFIED] Onset: 02-24-2023 Chronic Osteoarthritis (9 sources) Osteoarthritis of multiple joints ; Translations: [Polyosteoarthritis, unspecified] Onset: 07-23-2023 08-18-2024 Chronic Other aftercare (7 sources) Drug therapy finding; Translations: [Long-term (current) use of anticoagulants] Episodic Other aftercare (2 sources) Taking high risk medication; Translations: [Other senior care (current) drug therapy] Onset: 08-28-2024 08-28-2024 Episodic Other aftercare (2 sources) 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; Translations: [Other senior care (current) drug therapy] Onset: 08-28-2024 Episodic Other gastrointestinal disorders (4 sources) Bariatric surgery status; Translations: [BARIATRIC SURGERY STATUS] Onset: 02-20-2023 Episodic Other hereditary and degenerative nervous system conditions (5 sources) Minimal cognitive impairment; Translations: [Mild cognitive impairment, so stated] Onset: 07-23-2023 07-23-2023 Chronic Other hereditary and degenerative nervous system conditions (1 source) Mild cognitive impairment, so stated; Translations: [Mild cognitive impairment of uncertain or unknown etiology] Onset: 07-23-2023 Chronic Other non-traumatic joint disorders (2 sources) Arthritis of right knee 09-02-2024 Chronic Other non-traumatic joint disorders (2 sources) Pain in right knee; Translations: [Pain in joint, lower leg] 09-02-2024 Episodic Other nutritional; endocrine; and metabolic disorders (20 sources) Body mass index 40+ - severely obese; Translations: [Body Mass Index 40.0-44.9, adult] 07-29-2019 Chronic Other nutritional; endocrine; and metabolic disorders (7 sources) Morbid obesity; Translations: [Morbid obesity] Onset: 03-01-2016 07-23-2023 Chronic Other nutritional; endocrine; and metabolic disorders (1 source) Obesity; Translations: [Obesity, unspecified] Chronic Other nutritional; endocrine; and metabolic disorders (4 sources) Body mass index 30+ - obesity; Translations: [Body mass index (BMI) 36.0-36.9, adult] Onset: 03-06-2024 03-06-2024 Chronic Other nutritional; endocrine; and metabolic disorders (6 sources) 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; Translations: [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 and body mass index (BMI) of 36.0 to 36.9 in adult] Onset: 08-18-2024 08-18-2024 Chronic Other nutritional; endocrine; and metabolic disorders (1 source) Obese class II; Translations: [Class 2 obesity] 08-28-2024 Chronic Other nutritional; endocrine; and metabolic disorders (2 sources) Body mass index (BMI) 35.0-35.9, adult; Translations: [Body mass index (BMI) 35.0-35.9, adult] Onset: 08-28-2024 Chronic Other nutritional; endocrine; and metabolic disorders (2 sources) Body mass index (BMI) 36.0-36.9, adult; Translations: [Body mass index (BMI) 36.0-36.9, adult] Onset: 03-06-2024 Chronic Dorene-; endo-; and myocarditis; cardiomyopathy (except that caused by tuberculosis or sexually transmitted disease) (20 sources) Cardiomyopathy; Translations: [Other primary cardiomyopathies] Onset: 07-23-2023 03-06-2024 Chronic Residual codes; unclassified (5 sources) Sleep apnea; Translations: [Sleep apnea, unspecified] Onset: 07-23-2023 07-23-2023 Chronic Residual codes; unclassified (1 source) Sleep apnea, unspecified; Translations: [Sleep apnea, unspecified] Onset: 07-23-2023 Chronic Residual codes; unclassified (1 source) Edema, unspecified; Translations: [EDEMA UNSPECIFIED] Onset: 02-24-2023 Episodic Residual codes; unclassified (4 sources) Never smoked tobacco; Translations: [Other specified [...] Documented Da te Episodic/Chronic Biliary tract disease (16 sources) Biliary calculus; Translations: [Calculus of gallbladder without cholecystitis without obstruction] Onset: 12-07-2020 Episodic Calculus of urinary tract (20 sources) Kidney stone; Translations: [Calculus of kidney] Onset: 2 Episodic Diabetes mellitus without complication (20 sources) Diabetes mellitus; Translations: [Type 2 diabetes mellitus without complications] Onset: 3 Resolved: 3 08-25-2019 Chronic Genitourinary symptoms and ill-defined conditions (20 sources) Microscopic hematuria; Translations: [Asymptomatic microscopic hematuria] Onset: 2 Episodic Mood disorders (5 sources) Mood disorders Onset: 4 08-18-2024 Other aftercare (4 sources) Encounter for surgical aftercare following surgery on the circulatory system; Translations: [ENC SURG AFTRCARE FLW SURG CIRC SYS] Onset: 2 Episodic Other and unspecified benign neoplasm (5 sources) Polyp of transverse colon; Translations: [Polyp of colon] Onset: 3 12-13-2022 Episodic Other circulatory disease (14 sources) Carotid bruit; Translations: [Other symptoms involving cardiovascular system] Onset: 3 08-17-2023 Episodic Other circulatory disease (7 sources) H/O: hypertension; Translations: [Personal history of other diseases of circulatory system] Resolved: 1 Episodic Other diseases of kidney and ureters (5 sources) Hydronephrosis with renal and ureteral calculous obstruction; Translations: [Calculus of ureter] Onset: 4 02-18-2024 Episodic Other nutritional; endocrine; and metabolic disorders (7 sources) H/O: diabetes mellitus; Translations: [Personal history of other endocrine, metabolic, and immunity disorders] Resolved: 1 Episodic Other screening for suspected conditions (not mental disorders or infectious disease) (20 sources) CT of abdomen abnormal; Translations: [Encounter [...] smoked tobacco; Translations: [Never a smoker] Unclassified (7 sources) Onset: 4 Resolved: 4 03-06-2024 Varicose veins of lower extremity (5 sources) Varicose veins of bilateral lower extremities with pain; Translations: [VARICOSE VNS TANMAY LOW EXTREM W/PAIN] Onset: 2 Episodic Results Test Name Value Interpretation Reference Range Facil ity No Panel Informationon 09-02 VIC Avila 09/02/2024 2:22 PM L Inj/Asp: R knee on 09/02/2024 2:14 PM Indications: pain Details: 22 G needle, anterolateral approach Medications: 40 mg methylPREDNISolone acetate 40 MG/ML; 1 mL bupivacaine PF 0.5 % Outcome: tolerated well, no immediate complications E UTILIZING ASEPTIC TECHNIQUE PT GIVEN INJECTION IN RIGHT KNEE, NEUROVASC INTACT S/P INJ, TOLERATED WELL Procedure, treatment alternatives, risks and benefits explained, specific risks discussed. Consent was given by the patient. [facility] XR Knee - right 1 or 2 Views on 09-02-2024 Imaging Result: AP and Lateral weight bearing xray of right knee: Mild effusion, soft tissue unremarkable. Notable varus deformity right knee with stable appearing left knee prosthesis Pt has advanced arthritis bone on bone articulation medial joint line and patella femoral joint No acute fracture or dislocation Impression: advanced knee arthritis medial joint line with bone on bone articulation and patella femoral joint [facility] Radiology Study observation (narrative) [facility] COMPREHENSIVE METABOLIC PANE Good 08-18-2024 Albumin [Mass/Vol] 3.9 g/dL Normal 3.2-5.3 Comment on above: Performed By: #### T HYR, 87316-8, CMP #### [facility] ([id number]) [address], [address] [place] [address] ALP [Catalytic activity/Vol] 114 U/L Normal 39-130 Comment on above: Performed By: #### Min KABA, 99643-0, CMP #### [facility] ([id number]) [address], [address] [place] [address] ALT [Catalytic activity/Vol] 15 U/L Normal 0-31 Comment on above: Performed By: #### Min KABA, 85202-7, CMP #### [facility] ([id number]) [address], [address] [place] [address] Anion gap [Moles/Vol] 8 mmol/L Normal 5-15 Comment on above: Performed By: #### Min KABA, 29210-3, CMP #### [facility] ([id number]) [address], [address] [place] [address] AST [Catalytic activity/Vol] 20 U/L Normal 0-41 Comment on above: Performed By: #### Min KABA, 51847-6, CMP #### [facility] ([id number]) [address], [address] [place] [address] Bilirubin [Mass/Vol] 0.5 mg/dL Normal 0.3-1.2 Comment on above: Performed By: #### Min KABA, 03630-8, CMP #### [facility] ([id number]) [address], [address] [place] [address] Calcium [Mass/Vol] 10.4 mg/dL Normal 8.5-10.5 Comment on above: Performed By: #### Min KABA, 68425-9, CMP #### [facility] ([id number]) [address], [address] [place] [address] Chloride [Moles/Vol] 103 mmol/L Normal 98-109 Comment on above: Performed By: #### Min KABA 16814-3, CMP #### [facility] ([id number]) [address], [address] [place] [address] CO2 [Moles/Vol] 27 mmol/L Normal 22-32 Comment on above: Performed By: #### Min KABA, 47585-8, CMP #### [facility] ([id number]) [address], [address] [place] [address] Creatinine [Mass/Vol] 0.80 mg/dL Normal 0.40-1.00 Comment on above: Result Comment: METH OD TRACEABLE TO IDMS STANDARD Performed By: #### Min KABA 29893-5, CMP #### [facility] ([id number]) [address], [address] [place] [address] GFR/1.73 sq M.predicted among non-blacks MDRD (S/P/Bld) [Vol rate/Area] 77 mL/min/{1.73_m2} Normal >59 Comment on above: Result Comment: Reported eGFR is based on the CKD-EPI 2020 equation that does not use a race coefficient. Performed By: #### Min KABA 26658-1, CMP #### [facility] ([id number]) [address], [address] [place] [address] Glucose [Mass/Vol] 99 mg/dL Normal 65-99 Comment on above: Performed By: #### Min KABA 89419-4, CMP #### [facility] ([id number]) [address], [address] [place] [address] Potassium [Moles/Vol] 4.0 mmol/L Normal 3.5-5.0 Comment on above: Performed By: #### Min KABA, 95754-0, CMP #### [facility] ([id number]) [address], [address] [place] [address] Protein [Mass/Vol] 7.0 g/dL Normal 6.0-8.0 Comment on above: Performed By: #### Min SENDY, 12387-8, CMP #### [facility] ([id number]) [address], [address] [place] [address] Sodium [Moles/Vol] 138 mmol/L Normal 134-146 Comment on above: Performed By: #### Min KABA, 23107-1, CMP #### [facility] ([id number]) [address], [address] [place] [address] Urea nitrogen [Mass/Vol] 18 mg/dL Normal 5-27 Comment on above: Performed By: #### Min SENDY, 33109-4, CMP #### [facility] ([id number]) [address], [address] [place] [address] Comprehensive metabolic pane good 08-18-2024 Albumin [Mass/Vol] 3.9 g/dL 3.2 - 5.3 g/dL [facility] ALP [Catalytic activity/Vol] 114 U/L 39 - 130 U/L [facility] ALT No additional P-5'-P [Catalytic activity/Vol] 15 U/L 0 - 31 U/L [facility] Anion gap [Moles/Vol] 8 mmol/L 5 - 15 mmol/L [facility] AST [Catalytic activity/Vol] 20 U/L 0 - 41 U/L [facility] Bilirubin [Mass/Vol] 0.5 mg/dL 0.3 - 1.2 mg/dL [facility] Calcium [Mass/Vol] 10.4 mg/dL 8.5 - 10.5 mg/dL [facility] Chloride [Moles/Vol] 103 mmol/L 98 - 109 mmol/L [facility] CO2 [Moles/Vol] 27 mmol/L 22 - 32 mmol/L [facility] Creatinine [Mass/Vol] 0.8 mg/dL 0.40 - 1.00 mg/dL [facility] Comment on above: METHOD TRACEABLE TO IDNC STANDARD eGFR (CKD-EPI)non-race dependent 77 - PINF [facility] Comment on above: Reported eGFR is based on the CKD-EPI 2020 equation that does not use a race coefficient. Glucose [Mass/Vol] 99 mg/dL 65 - 99 mg/dL [facility] Potassium [Moles/Vol] 4 mmol/L 3.5 - 5.0 mmol/L [facility] Protein [Mass/Vol] 7 g/dL 6.0 - 8.0 g/dL [facility] Sodium [Moles/Vol] 138 mmol/L 134 - 146 mmol/L [facility] Urea nitrogen [Mass/Vol] 18 mg/dL 5 - 27 mg/dL [facility] Lipid 1996 panelon 4 Cholesterol [Mass/Vol] 187 mg/dL 150 - 200 mg/dL [facility] Cholesterol in HDL [Mass/Vol] 66 mg/dL 39 - PINF mg/dL [facility] Comment on above: HDL <40 mg/dL - High Risk HDL > or = 40mg/dL- Desirable HDL >60 mg/dL - Negative Risk Cholesterol in LDL [Mass/Vol] 107 mg/dL NINF - 130 mg/dL [facility] Comment on above: LDL <100 mg/dL - Desirable LDL >160 mg/dL - High Risk Cholesterol in VLDL [Mass/Vol] 14 mg/dL 0 - 30 mg/dL [facility] Cholesterol.total /Cholesterol in HDL [Mass ratio] 2.8 {ratio} 1.0 - 5.0 [facility] Triglyceride [Mass/Vol] 68 mg/dL 27 - 150 mg/dL [facility] Cholesterol [Mass/Vol] 187 mg/dL Normal 150-200 Comment on above: Performed By: #### T [facility], 85350-1, CMP #### [facility] ([id number]) [address], [address] [place] [address] Cholesterol in HDL [Mass/Vol] 66 mg/dL Normal >39 Comment on above: Result Comment: HDL <40 mg/dL - High Risk HDL > or = 40mg/dL- Desirable HDL >60 mg/dL - Negative Risk Performed By: #### Min KABA 61684-1, CMP #### [facility] ([id number]) [address], [address] [place] [address] Cholesterol in LDL [Mass/Vol] 107 mg/dL Normal <130 Comment on above: Result Comment: LDL <100 mg/dL - Desirable LDL >160 mg/dL - High Risk Performed By: #### Min KABA 19079-9, CMP #### [facility] ([id number]) [address], [address] [place] [address] Cholesterol in VLDL [Mass/Vol] 14 mg/dL Normal 0-30 Comment on above: Performed By: ###Chavo KABA 19179-4, CMP #### [facility] ([id number]) [address], [address] [place] [address] CHOLESTEROL:HDL 2.8 Normal 1.0-5.0 Comment on above: Performed By: #### Min KABA 22488-9, CMP #### [facility] ([id number]) [address], [address] [place] [address] Triglyceride [Mass/Vol] 68 mg/dL Normal 27-150 Comment on above: Performed By: #### T HYR, 35079-3, CMP #### [facility] ([id number]) [address], [address] [place] [address] No Panel Informationon 08-18 [facility] THYROID PROFILEon 08-18-2024 Free T4 [Mass/Vol] 1.33 ng/dL Normal 0.61-1.60 Comment on above: Performed By: #### T HYR, 67300-3, CMP #### [facility] ([id number]) [address] [place] [address] TSH 0.35 uIU/mL Low 0.49-4.67 Comment on above: Performed By: #### T HYR, 96317-8, CMP #### [facility] ([id number]) [address] [place] [address] Thyroid profile includes TSH FT4on 08-18-2024 Free T4 [Mass/Vol] 1.33 ng/dL 0.61 - 1.60 ng/dL [facility] Interpretation and review of laboratory results Abnormal [facility] TSH Qn 0.35 m[IU]/L Low [facility] UroVysion Fish and Urine Cyt o ([facility])on 08-05-2024 UVFISH & UC Diagnosis Info Invalid Interpretation Code [facility] Comment on above: Result Comment: A:Ur ine,Urine:Voided Interpretation - Occasional atypical urothelial cells with degenerative changes. Interpretation - The UroVysion FISH study detected normal copy numbers for chromosomes 3, 7, 17, and 9p21. 91 cells were analyzed in this evaluation. No evidence of aneuploidy for chromosomes 3, 7, or 17 or deletion of the 9p21 locus was found in cells present in this specimen. This test does not rule out the possibility of a low grade non-invasive papillary urothelial carcinoma. These findings should be correlated with cytology and cystoscopy results. * CPT: 53329, 65996. MicroScopic Description - MicroScopic Description - Electronically signed by : on: 08/05/2024 16:40:06 Performed By: #### 1 [id number] #### [facility] [address] [place] [address] UroVysion Fish and Urine Cyt o ([facility])on 07-29-2024 [facility] Method of Extraction Voided Normal [facility] Comment on above: Performed By: #### 1 [id number] #### [facility] [address] [place] [address] [facility] Number of Jars 1 Invalid Interpretation Code [facility] Comment on above: Performed By: #### 1 [id number] #### [facility] [address] [place] [address] [facility] Specimen Urine Normal [facility] Comment on above: Performed By: #### 1 [id number] #### [facility] [address] [place] [address] [facility] Type of Service Technical Only Normal [facility] Comment on above: Performed By: #### 1 [id number] #### [facility] [address] [place] [address] Urine Cytology ([facility])on 07-18-2024 Microscopic exam Cytology (U) [Interp] Diagnosis Info Invalid Interpretation Code [facility] Comment on above: Result Comment: A:Ur ine,Clean [...] on: 07/18/2024 12:47:49 Performed By: #### 1 [id number] #### [facility] [address] [place] [address] Ambulatory Visit Summaryon 07-15-2024 Ambulatory Visit Summary Ambulatory Visit Summary MIKY FUENTES :1950 Visit Date:07/15/2024 Ambulatory Visit Instructions Your Diagnosis Gross hematuria Kidney stone Your Care Team Attending Physician - RAAD Back APRN, [place] X Primary Care Physician - CONNOR ANAYA DO This Is Your Medications List Contact [...] When: Comments: pending review of imaging Where: [address] [place] [address]- Medications What How Much When Instructions Unchanged [...] prescribing physician if questions or concerns Allergies [place] (Unknown) Dogs (Unknown) Milk Products (Unknown) Mold [...] the b (more content not included)... Normal [facility] Urine Cytology ([facility])on 0 07-15-2024 Method of Extraction Voided Normal [facility] Comment on above: Performed By: #### 1 [id number] #### [facility] [address] [place] [address] Number of Jars 1 Invalid Interpretation Code [facility] Comment on above: Performed By: #### 1 [id number] #### [facility] [address] [facility] [place] [address] Specimen Clean Catch Normal [facility] Comment on above: Performed By: #### 1 [id number] #### [facility] [address] [place] [address] Type of Service Technical Only Normal [facility] Comment on above: Performed By: #### 1 [id number] #### [facility] [address] [place] [address] Urology Office/Clinic Noteon 07-15-2024 Urology Office/Clinic Note [...] with voice recognition artificial intelligence software, specifically [employer] and or [employer]. Substitutions may have occurred due to the [...] Urnls Dip Stick Auto w/o Microscopy POC 54489 Follow-up With When Contact Information MO HAYDEN, Yehuda Haddad, URL [address] [place] [address]- Additional Instructions: pending review of imaging Patient Education Kidney Stones, Lrhn-ak-Sujr Hematuria, Adult Problem List/Past Medical History Ongoing [...] bile duct (more content not included)... Normal [facility] Comment on above: Result Comment: Elec tronically Signed By: RAAD Back APRN, Radha Lopes\.br\Date and Time Signed: 07/15/24 15:39 EDT ECG 12 Leadon 03-06-2024 Sinus bradycardia with occasional PVCs Low voltage QRS Nonspecific ST change QTc 391 ms [facility] Work Phone: BASIC METABOLIC PANLon 02-17 Anion gap [Moles/Vol] 6 mmol/L Normal 5-15 Comment on above: Performed By: #### B YONATAN, THYR #### [facility] ([id number]) [address], [address] [place] [address] Calcium [Mass/Vol] 9.8 mg/dL Normal 8.5-10.5 Comment on above: Performed By: #### B YONATAN, THYR #### [facility] ([id number]) [address], [address] [place] [address] Chloride [Moles/Vol] 106 mmol/L Normal 98-109 Comment on above: Performed By: #### B YONATAN, THYR #### [facility] ([id number]) [address] [place] [address] CO2 [Moles/Vol] 31 mmol/L Normal 22-32 Comment on above: Performed By: #### Win TAM, THYR #### [facility] ([id number]) [address], [address] [place] [address] Creatinine [Mass/Vol] 0.90 mg/dL Normal 0.40-1.00 Comment on above: Result Comment: METH OD TRACEABLE TO IDMS STANDARD Performed By: #### B YONATAN, THYR #### [facility] ([id number]) [address], [address] [place] [address] GFR/1.73 sq M.predicted among non-blacks MDRD (S/P/Bld) [Vol rate/Area] 68 mL/min/{1.73_m2} Normal >59 Comment on above: Result Comment: Reported eGFR is based on the CKD-EPI 2020 equation that does not use a race coefficient. Performed By: #### B YONATAN, THYR #### [facility] ([id number]) [address], [address] [place] [address] Glucose [Mass/Vol] 105 mg/dL High 65-99 Comment on above: Performed By: #### B YONATAN, THYR #### [facility] ([id number]) [address] [place] [address] Potassium [Moles/Vol] 4.2 mmol/L Normal 3.5-5.0 Comment on above: Performed By: #### B YONATAN, THYR #### [facility] ([id number]) [address] [address] [facility] [place] [address] Sodium [Moles/Vol] 143 mmol/L Normal 134-146 Comment on above: Performed By: #### B YONATAN, THYR #### [facility] ([id number]) [address] [address] [place] [address] Urea nitrogen [Mass/Vol] 19 mg/dL Normal 5-27 Comment on above: Performed By: #### B YONATAN, THYR #### [facility] ([id number]) [address] [address] [place] [address] THYROID PROFILEon 02-18-2024 Free T4 [Mass/Vol] 1.92 ng/dL High 0.61-1.60 Comment on above: Performed By: #### B YONATAN, THYR #### [facility] ([id number]) [address] [address] [place] [address] TSH 0.58 uIU/mL Normal 0.49-4.67 Comment on above: Performed By: #### B YONATAN, THYR #### [facility] ([id number]) [address] [address] [place] [address] Ambulatory Visit Summaryon 1 Ambulatory Visit Summary MIKY FUENTES :1950 Visit Date:10/26/2023 Ambulatory Visit Instructions Your Diagnosis Ureteral stone with hydronephrosis Kidney stone Tests Performed Urnls Dip Stick Auto w/o Microscopy POC 72614 Your Care Team Attending Physician - Yehuda HASSAN MD Primary Care Physician - CONNOR ANAYA DO This Is Your Medications List allopurinol [...] With: Where: [facility] Normal [address] [place] [address] [place] [address]- \.br\ You Need to Schedule the Following Appointments\.br\ Follow Up with MO HAYDEN, Yehuda Haddad, GENEVIEVEL When: \.br\ Where:\.br\ [address]\.br\ [place] [address]-\.br\ Medications\.br\ What How Much When Instructions\.br\ New potassium bicarbonate (K-Effervescent 25 mEq oral tablet, effervescent) 1 Tablets By Mouth 2 times a day Refills: 11 Pickup at [facility]\.br\ Unchanged allopurinol (allopurinol 300 mg Tab) [...] if questions or concerns \.br\ Pharmacy Information\.br\ [facility]: [address] [place], [place] [id number] [phone]\.br\ \.br\ What How Much When Why Comments\.br\ Stop Taking tamsulosin (Flomax 0.4 mg Cap) 1 Capsules By Mouth Every day Right flank pain Kidney stones Gross hematuria\.br\ Test Results\.br\ Urnls Dip Stick Auto w/o Microscopy POC 31143 (10/26/2023)\.br\ Bilirubin Urine Dipstick - Negative\.br\ Blood Urine Dipstick - 3+ Large\.br\ Glucose Urine Dipstick - Negative\.br\ Ketones Urine Dipstick - Negative\.br\ Leukocytes Urine Dipstick - Negative\.br\ Nitrite Urine Dipstick - Negative\.br\ Protein Urine Dipstick - 2+ (100 mg/dl)\.br\ Specific [place] Urine Dipstick - 1.025\.br\ Urine Appearance Urine Dipstick - Slightly cloudy\.br\ Urine Color Urine Dipstick - Yellow\.br\ Urobilinogen Urine Dipstick - Normal 0.2-1 EU/dl\.br\ pH Urine Dipstick - 5\.br\ Allergies\.br\ Swanquarter (Unknown)\.br\ Dogs (Unknown)\.br\ Milk Products (Unknown)\.br\ Mold [...] Spinach (cooked), rhubarb, beets, sweet potatoes, and American chard. ? Peanuts. ? Potato chips, latvian fries, and baked potatoes with skin on. ? Nuts and nut products. ? Chocolate. ? If you regularly take a diuretic medicine, make sure to eat at least 1 or 2 servings of fruits or vegetables that are high in potassium each day. These include: ? Avocado. ? Banana. ? [place], prune, carrot, or tomato juice. ? Baked [...] fish oil, or vitamin B6. ? Take umly-fpp-osfjpau and prescription medicines only as told by your health care provider. These include supplements. What foods sh (more content not included)... Normal [facility] RAD - MISCon 10-26-2023 [facility] MIS [id number] [facility] [id number]#1 .00TIFF [facility] Urology Office/Clinic Noteon 10-26-2023 Urology Office/Clinic Note Chief Complaint CT Review HPI Staff 2 wk f/u with [facility]. Saw DAXA at prior OV. Previous Dx: R flank pain, kidney stones, gross hematuria. S/p ESWL 11/18/20. CT AP wo con done 10/11/23 at [facility].Was given Tamsulosin, however stopped taking [...] and history for this patient from Dr. Hassan. I have reviewed and verified the staff [...] Information MO HAYDEN, Yehuda Haddad, URL [address] [id number]- Additional Instructions: 6 months Patient Education Dietary Guidelines to Help Prevent Kidney Stones I, Chantal Bishop, personally scribed for Dr. Hassan on 10/26/2023 09:08:12. . Documentation recorded by the scribe, Chantal Bishop, accurately reflects the services(s) I performed and decisions made by me. Authenticated by Dr. Hassan on 10/26/2023 09:11:26. Problem List/Past Medical History [...] joint sup (more content not included)... Normal [facility] Comment on above: Result Comment: Elec tronically Signed By: Yehuda HASSAN MD\.br\Date and Time Signed: 10/26/23 09:11 EST\.br\Electronically Co-Signed By: Chantal Bishop\Date and Time Co-Signed: 10/26/23 09:09 EST RAD - CT Reporton 10-15-2023 RAD - CT Report [id number]# 1.00TIFF Normal [facility] RAD - CT Report [id number] .00TIFF Normal [facility] RAD - MISCon 10-15-2023 RAD - MISC [id number]#1 .00TIFF Normal [facility] RAD - MISC [id number] .00TIFF Normal [facility] Ambulatory Visit Summaryon 1 12-10-2022 Ambulatory Visit Summary MIKY FUENTES :1950 Visit Date:10/09/2023 Ambulatory Visit Instructions Your Diagnosis Gross hematuria Right flank pain Tests Performed Urnls Dip Stick Auto w/o Microscopy POC 75490 Your Care Team Attending Physician - DORA ALCAZAR PA-C Primary Care Physician - CONNOR ANAYA DO This Is Your Medications List Non-Formulary [...] Urnls Dip Stick Auto w/o Microscopy POC 25327 (10/09/2023) Bilirubin Urine Dipstick - Negative Blood Urine Dipstick - 3+ Large Glucose Urine Dipstick - Negative Ketones Urine Dipstick - Negative Leukocytes Urine Dipstick - Negative Nitrite Urine Dipstick - Negative Protein Urine Dipstick - 3+ (300 mg/dl) Specific [place] Urine Dipstick - >=1.030 Urine Appearance Urine Dipstick - Clear Urine Color Urine Dipstick - Yellow Urobilinogen Urine Dipstick - Normal 0.2-1 EU/dl pH Urine Dipstick - 5.5 Allergies Swanquarter (Unknown) Dogs (Unknown) Milk Products (Unknown) Mold [...] for choosing us for your care. Normal [facility] Patient Educationon 10-09-20 Patient Education Urology Hematuria, [...] these instructions at home: Medicines ? Take mjur-ofz-xvkkxpa and prescription medicines only as told by [...] the blood stops without treatment. ? Take lduv-sfk-xbtwhnh and prescription medicines only as told by your health care provider. ? Drink enough fluid to keep your urine pale yellow. This information is not intended to replace advice given to you by your health care provider. Make sure you discuss any questions you have with your health care provider. Document Revised: 06/15/2021 Document Reviewed: 06/15/2021 FIRE1 Patient Education ? 2022 [employer]. Normal [facility] Urology Office/Clinic Noteon 10-09-2023 Urology Office/Clinic Note [...] Daily, # 30 cap(s), Refills(s) 0, Pharmacy: [facility], 165, cm, 10/09/23 15:24:00 EST, Height/Length Dosing, 113, kg, 10/09/23 15:24:00 EST, Weight Dosing CT Abdomen w/o Contrast E&M of Est. Patient Moderate 30-39 Min 34094 2. Kidney stones (N20.0: Calculus of kidney) see #1 KUB from this spring showed several medium (6-7mm) R renal stones has had multiple lithotripsy in past Ordered: tamsulosin, 0.4 mg = 1 cap(s), Oral, Daily, # 30 cap(s), Refills(s) 0, Pharmacy: [facility], 165, cm, 10/09/23 15:24:00 EST, Height/Length Dosing, 113, kg, 10/09/23 15:24:00 EST, Weight Dosing CT Abdomen w/o Contrast E&M of Est. Patient Moderate 30-39 Min 77074 3. Gross hematuria (R31.0: Gross hematuria) see #1 Ordered: tamsulosin, 0.4 mg = 1 cap(s), Oral, Daily, # 30 cap(s), Refills(s) 0, Pharmacy: [facility], 165, cm, 10/09/23 15:24:00 EST, Height/Length Dosing, 113, kg, 10/09/23 15:24:00 EST, Weight Dosing CT Abdomen w/o Contrast E&M of Est. Patient Moderate 30-39 Min 07118 Urnls Dip Stick Auto w/o Microscopy POC 06411 Follow-up With When Contact Information INGE CARDONA, DORA Washburn, URL [address] [facility] [place] [address] Business (1) Additional Instructions: pending [...] Oral, B (more content not included)... Normal [facility] Comment on above: Result Comment: Elec tronically Signed By: INGE CARDONA, DORA Washburn\.br\Date and Time Signed: 10/09/23 15:49 EST CREATININEon 03-05-2023 Creatinine [Mass/Vol] 1.16 mg/dL Critically high 0.55-1.02 [facility] Comment on above: Performed By: #### C AIYANA #### [facility] [address] [address] [address] Alysha Machuca EGFR-AF [place] 56 mL/min/1.73m2 Critically low >=60 [facility] Comment on above: Performed By: #### C AIYANA #### [facility] [address] [address] [address] Alysha Machuca EGFR-NON AF [place] 46 mL/min/1.73m2 Critically low >=60 [facility] Comment on above: Performed By: #### C AIYANA #### [facility] [address] [place] [address] ABD/PELVIS WO CONon [...] patient's symptoms. 2.Cholelithiasis. Electronically authenticated by: KYLE CHENEY Date: 2023-03-05 15:08 Normal [facility] VITAMIN B1 (THIAMINE)on 01-28 Vit. B1, Whole Blood 132.2 nmol/L Normal 66.5-200.0 [facility] Comment on above: Performed By: #### V ITB1T ####[facility] [address] [id number]. Alysha Machuca CBC AUTO DIFFon 02-20-2023 BASO # 0.1 103/ul Normal 0.0-0.1 [facility] Comment on above: Performed By: #### C BC #### [facility] [address] [place], [place] [address] Dr. Alysha Machuca Basophils/100 WBC (Bld) 0.9 % Normal 0.2-2.0 [facility] Comment on above: Performed By: #### C BC #### [facility] [address] [place], [place] [address] Dr. Alysha Machuca EO # 0.2 103/ul Normal 0.0-0.7 [facility] Comment on above: Performed By: #### C BC #### [facility] [address] [place] [address] Dr. Alysha Machuca Eosinophils/100 WBC (Bld) 3.0 % Normal 0.9-7.0 [facility] Comment on above: Performed By: #### C BC #### [facility] [address] [place] [address] Dr. Alysha Machuca Erythrocyte distribution width (RBC) [Ratio] 13.9 % Normal 11.0-15.0 [facility] Comment on above: Performed By: #### C BC #### [facility] [address] [place] [address] Dr. Alysha Machuca Hematocrit (Bld) [Volume fraction] 39.5 % Normal 36.0-48.0 [facility] Comment on above: Performed By: #### C BC #### [facility] [address] [place] [address] Dr. Alysha Machuca Hemoglobin (Bld) [Mass/Vol] 12.7 g/dL Normal 12.0-16.0 [facility] Comment on above: Performed By: #### C BC #### [facility] [address] [place] [address] Dr. Alysha Machuca IG # 0.01 10e3/ul Normal 0.00-0.03 [facility] Comment on above: Performed By: #### C BC #### [facility] [address] [place] [address] Dr. Alysha Machuca IG % 0.2 % Normal 0.0-0.5 [facility] Comment on above: Performed By: #### C BC #### [facility] [address] [place] [address] Dr. Alysha Machuca LYMPH # 1.7 103/ul Normal 1.2-3.8 [facility] Comment on above: Performed By: #### C BC #### [facility] [address] [place] [address] Dr. Alysha Machuca Lymphocytes/100 WBC (Bld) 30.7 % Normal 20.5-60.0 [facility] Comment on above: Performed By: #### C BC #### [facility] [address] [place] [address] Dr. Alysha Machuca MANUAL DIFF REQ NO Normal [facility] Comment on above: Performed By: #### C BC #### [facility] [address] [place] [address] Dr. Alysha Machuca MCH (RBC) [Entitic mass] 29.3 pg Normal 26.7-34.0 [facility] Comment on above: Performed By: #### C BC #### [facility] [address] [place] [address] Dr. Alysha Machuca MCHC (RBC) [Mass/Vol] 32.2 g/dL Normal 29.9-35.2 [facility] Comment on above: Performed By: #### C BC #### [facility] [address] [place] [address] Dr. Alysha Machuca MCV (RBC) [Entitic vol] 91.0 fL Normal 81.0-99.0 [facility] Comment on above: Performed By: #### C BC #### [facility] [address] [place] [address] Dr. Alysha Machuca MONO # 0.4 103/ul Normal 0.3-0.8 [facility] Comment on above: Performed By: #### C BC #### [facility] [address] [place] [address] Dr. Alysha Machuca Monocytes/100 WBC (Bld) 6.8 % Normal 1.7-12.0 [facility] Comment on above: Performed By: #### C BC #### [facility] [address] [place] [address] Dr. Alysha Machuca NEUT # 3.3 103/ul Normal 1.4-6.5 [facility] Comment on above: Performed By: #### C BC #### [facility] [address] [place] [address] Dr. Alysha Machuca Neutrophils/100 WBC (Bld) 58.4 % Normal 43.0-75.0 [facility] Comment on above: Performed By: #### C BC #### [facility] [address] [address] [address] Alysha Machuca Platelet mean volume (Bld) [Entitic vol] 9.3 fL Critically low 9.5-13.5 [facility] Comment on above: Performed By: #### C BC #### [facility] [address] [address] [address] Alysha Machuca PLT 186 103/ul Normal 150-450 [facility] Comment on above: Performed By: #### C BC #### [facility] [address] [address] [address] Alysha Machuca RBC 4.34 106/ul Normal 4.20-5.40 [facility] Comment on above: Performed By: #### C BC #### [facility] [address] [address] [address] Alysha Machuca WBC 5.6 103/ul Normal 4.0-11.0 [facility] Comment on above: Performed By: #### C BC #### [facility] [address] [address] [address] Alysha Machuca FERRITINon 02-20-2023 Ferritin [Mass/Vol] 36.0 ng/mL Normal 8.0-252.0 [facility] Comment on above: Performed By: #### F ERR, B12FOL, FETIBC, VITAD ####[facility] [address] [address]DrMaite Machuca IRON AND TIBCon 02-20-2023 % SATURATION 15.8 % Normal [facility] Comment on above: Performed By: #### F ERR, B12FOL, FETIBC, VITAD ####[facility] [address] [address]Dr. Alysha Machuca Iron [Mass/Vol] 53.0 ug/dL Normal 50.0-170.0 [facility] Comment on above: Performed By: #### F ERR, B12FOL, FETIBC, VITAD ####[facility] [address] [address]Dr. Alysha Machuca TIBC DIRECT 335.0 ug/dL Normal 250.0-450.0 [facility] Comment on above: Performed By: #### F ERR, B12FOL, FETIBC, VITAD ####[facility] [address] [place], [place] [address]Dr. Alysha Machuca MAGNESIUMon 02-20-2023 Magnesium [Mass/Vol] 1.9 mg/dL Normal 1.8-2.4 [facility] Comment on above: Performed By: #### P HOS, CMP, MG #### [facility] [address] [address] [address] Alysha Machuca PHOSPHORUSon 02-20-2023 Phosphate [Mass/Vol] 3.9 mg/dL Normal 2.6-4.7 [facility] Comment on above: Performed By: #### P HOS, CMP, MG #### [facility] [address] [place] [address] Dr. Alysha Machuca PROF 14(COMP METB)on 023 Albumin [Mass/Vol] 3.4 g/dL Normal 3.4-5.0 [facility] Comment on above: Performed By: #### P HOS, CMP, MG #### [facility] [address] [place] [address] Dr. Alysha Machuca Albumin/Globulin [Mass ratio] 0.9 {ratio} Normal [facility] Comment on above: Performed By: #### P HOS, CMP, MG #### [facility] [address] [address] [address] Alysha Machuca ALP [Catalytic activity/Vol] 123 U/L Critically high 46-116 [facility] Comment on above: Performed By: #### P HOS, CMP, MG #### [facility] [address] [place] [address] Dr. Alysha Machuca ALT [Catalytic activity/Vol] 21 U/L Normal 14-59 [facility] Comment on above: Performed By: #### P HOS, CMP, MG #### [facility] [address] [place] [address] Dr. Alysha Machuca Anion gap [Moles/Vol] 13.8 mmol/L Normal [facility] Comment on above: Performed By: #### P HOS, CMP, MG #### [facility] [address] [address] [address] Alysha Machuca AST [Catalytic activity/Vol] 15 U/L Normal 15-37 [facility] Comment on above: Performed By: #### P HOS, CMP, MG #### [facility] [address] [address] [address] Alysha Machuca Bilirubin [Mass/Vol] 0.5 mg/dL Normal 0.2-1.0 [facility] Comment on above: Performed By: #### P HOS, CMP, MG #### [facility] [address] [place] [address] Dr. Alysha Machuca Calcium [Mass/Vol] 9.6 mg/dL Normal 8.5-10.1 [facility] Comment on above: Performed By: #### P HOS, CMP, MG #### [facility] [address] [place] [address] Dr. Alysha Machuca Chloride [Moles/Vol] 103 mmol/L Normal 98-107 [facility] Comment on above: Performed By: #### P HOS, CMP, MG #### [facility] [address] [place] [address] Dr. Alysha Machuca CO2 [Moles/Vol] 25.2 mmol/L Normal 21.0-32.0 [facility] Comment on above: Performed By: #### P HOS, CMP, MG #### [facility] [address] [place] [address] Dr. Alysha Machuca Creatinine [Mass/Vol] 0.95 mg/dL Normal 0.55-1.02 [facility] Comment on above: Performed By: #### P HOS, CMP, MG #### [facility] [address] [place] [address] Dr. Alysha Machuca EGFR-AF [place] >60 Normal >=60 [facility] Comment on above: Performed By: #### P HOS, CMP, MG #### [facility] [address] [address] [address] Alysha Machuca EGFR-NON AF [place] 58 mL/min/1.73m2 Critically low >=60 [facility] Comment on above: Performed By: #### P HOS, CMP, MG #### [facility] [address] [address] [address] Alysha Machuca Globulin (S) [Mass/Vol] 3.6 g/dL Normal [facility] Comment on above: Performed By: #### P HOS, CMP, MG #### [facility] [address] [address] [address] Alysha Machuca Glucose [Mass/Vol] 96 mg/dL Normal 74-106 [facility] Comment on above: Performed By: #### P HOS, CMP, MG #### [facility] [address] [place] [address] Dr. Alysha Machuca Potassium [Moles/Vol] 4.0 mmol/L Normal 3.5-5.1 [facility] Comment on above: Performed By: #### P HOS, CMP, MG #### [facility] [address] [address] [address] Alysha Machuca Protein [Mass/Vol] 7.0 g/dL Normal 6.4-8.2 [facility] Comment on above: Performed By: #### P HOS, CMP, MG #### [facility] [address] [place] [address] Dr. Alysha Machuca Sodium [Moles/Vol] 138 mmol/L Normal 136-145 [facility] Comment on above: Performed By: #### P HOS, CMP, MG #### [facility] [address] [address] [address] Alysha Machuca Urea nitrogen [Mass/Vol] 21.0 mg/dL Critically high 7.0-18.0 [facility] Comment on above: Performed By: #### P HOS, CMP, MG #### [facility] [address] [address] [address] Alysha Machuca Urea nitrogen/Creatini ne [Mass ratio] 22.1 mg/mg Normal [facility] Comment on above: Performed By: #### P HOS, CMP, MG #### [facility] [address] [place], [place] [address] Dr. Alysha Machuca VIT B12 AND FOLATEon 023 Cobalamin (Vitamin B12) [Mass/Vol] 652.0 pg/mL Normal 193.0-986.0 [facility] Comment on above: Performed By: #### F ERR, B12FOL, FETIBC, VITAD ####[facility] [address] [address]. Alysha Machuca FOLATE 18.30 ng/mL Normal 8.60-58.90 [facility] Comment on above: Performed By: #### F ERR, B12FOL, FETIBC, VITAD ####[facility] [address] [address]Dr. Alysha Machuca VITAMIN D 25 OHon 02-20-2023 VIT D 25-OH 41.7 ng/mL Normal [facility] Comment on above: Performed By: #### F ERR, B12FOL, FETIBC, VITAD ####[facility] [address] [address]Dr. Alysha Machuca VIT D RANGES SEE BELOW Normal [facility] Comment on above: Result Comment: <20 ng/mL Vit D deficient 20 - <30 ng/mL Vit D insufficient 30 - 100 ng/mL Vit D sufficient >100 ng/mL Potential Toxicity Performed By: #### F ERR, B12FOL, FETIBC, VITAD ####[facility] [address] [address]Dr. Alysha Machuca XR KUB 1 VIEWon 02-20-2023 [...] Stable right nephrolithiasis. Electronically authenticated by: KYLE CHENEY Date: 2023-02-20 15:57 Normal [facility] Office Visit (Cardiology)on 12-06-2022 Follow-up visit Diagnoses/Problems Assessed Anticoagulated (V58.61) (Z79.01) Hyperlipidemia (272.4) (E78.5) Non-ischemic cardiomyopathy (425.4) (I42.8) Paroxysmal atrial fibrillation (427.31) (I48.0) Class 2 obesity with body mass index (BMI) of 36.0 to 36.9 in adult (278.00,V85.36) (E66.9,Z68.36) Never a smoker Orders Class 2 obesity with body mass index (BMI) of 36.0 to 36.9 in adult Healthy Weight Tips; Status:Complete; Done: 80Kud0262 Some eating tips that can help you lose weight.; Status:Complete; Done: 44Wxj2212 Hyperlipidemia Renew: Lovastatin 10 MG Oral Tablet; TAKE 1 TABLET DAILY DIRECTED Paroxysmal atrial fibrillation IO EKG Electrocardiogram- 12 Lead; Status:Complete; Done: 50Wkn1818 SocHx: Never a smoker Tobacco Use Screening; Status:Complete; Done: 56Lpo8761 Patient Instructions Please bring all medicines, vitamins, [...] MG Oral TabletTAKE 1 TABLET Twice daily [place] 3 [place] DIRECTED. Tylenol Arthritis Ext Relief 650 MG TBCRTake 1 tablet twice daily Vitamin D3 25 MCG (1000 UT) Oral TabletTake 1 tablet twice daily Xarelto 20 MG Oral TabletTAKE 1 TABLET BY MOUTH DAILY Allergies Medication Sulfa Drugs Adverse Reaction; Unknown; Recorded By: Fernanda Rolon; 08/16/2021 2:36:52 PM ciprofloxacin Recorded By: Ada oBwser; 08/12/2021 10:24:03 AM Social History Problems Daily [...] negative for complaint. Vitals Vital Signs Recorded: 41Tew5672 01:27PM Heart Rate43, Apical Oydmflnm430, RUE, Sitting Orxuiwynf79, RUE, Sitting Height5 ft 5 in Sbuuty349 lb BMI Zapkfbhksh34.94 kg/m2 BSA Calculated2.07 Tobacco Useb) No PHQ-2 [...] assessment No [facility] y [address] DO Work Phone: Fall risk assessment a) No falls within the last year [facility] y 250 DO Work Phone: Tobacco use status CPHS b) No [facility] y 250 DO Work Phone: VC INJ SCL EDMON[place] B[place] PILOT VEINSon 0 11-03-2022 VC INJ SCL [place] PILOT VEINS Patient: MIKY FUENTES Exam Date: 11/03/2022 : 1950 Gender:F Ordering : DR WILLARD SHARMA M.D. Admission #: [id number] Family : Order #: [id number] CLICK HERE TO VIEW EXAM RADIOLOGY REPORT PROCEDURE: VEIN CENTER INJECTION SCLEROSING SOLUTION MULTIPLE VEINS SAME COMPARISON: VC INJ SCL ED[place]ALL[place] PILOT VEINS, 10/27/2022. VC INJ SCL EDMON[place] PILOT VEINS, 10/16/2022. INDICATIONS: Pain co-occurrent and due [...] successful sclerotherapy as described Dictated by: Willard Sharma MD on 11/03/2022 at 11:59 Approved by: Willard Sharma MD on 11/03/2022 at 12:37 Normal [facility] XR KUB 1 VIEWon 11-03-2022 XR [...] to prior study. Electronically authenticated by: KYLE CHENEY Date: 2022-11-03 12:52 Normal [facility] VC INJ SCL [place] PILOT VEINSon 1 VC INJ SCL [place] PILOT VEINS Patient: MIKY FUENTES Exam Date: 10/27/2022 : 1950 Gender:F Ordering : DR WILLARD SHARMA M.D. Admission #: [id number] Family : Order #: [id number] CLICK HERE TO VIEW EXAM RADIOLOGY REPORT PROCEDURE: VEIN CENTER INJECTION SCLEROSING SOLUTION MULTIPLE VEINS SAME COMPARISON: VC INJ SCL [place] PILOT VEINS, 10/16/2022. VC INJ SCL [place]MON[place]ALL[place] PILOT VEINS, 10/06/2022. INDICATIONS: Pain co-occurrent and due [...] successful sclerotherapy as described Dictated by: Willard Sharma MD on 10/27/2022 at 11:45 Approved by: Willard Sharma MD on 10/27/2022 at 11:46 Normal [facility] VC INJ SCL EDMON[place] B[place] PILOT VEINSon 1 12-17-2021 VC INJ SCL [place] PILOT VEINS Patient: MIKY FUENTES Exam Date: 10/16/2022 : 1950 Gender:F Ordering : DR WILLARD SHARMA M.D. Admission #: [id number] Family : Order #: [id number] CLICK HERE TO VIEW EXAM RADIOLOGY REPORT PROCEDURE: VEIN CENTER INJECTION SCLEROSING SOLUTION MULTIPLE VEINS SAME COMPARISON: VC INJ SCL EDMON[place] BALLOON PILOT VEINS, 10/06/2022. INDICATIONS: Pain co-occurrent and due [...] successful sclerotherapy as described Dictated by: Kyle Cheney M.D. on 10/17/2022 at 08:11 Approved by: Kyle Cheney M.D. on 10/17/2022 at 08:12 Normal [facility] CREATININEon 10-10-2022 Creatinine [Mass/Vol] 1.11 mg/dL Critically high 0.55-1.02 [facility] Comment on above: Performed By: #### C AIYANA ####[facility] [address] [address]DrMaite Machuca EGFR-AF [place] 59 mL/min/1.73m2 Critically low >=60 [facility] Comment on above: Performed By: #### C AIYANA ####[facility] [address] [address]DrMaite Machuca EGFR-NON AF [place] 48 mL/min/1.73m2 Critically low >=60 [facility] Comment on above: Performed By: #### C AIYANA ####[facility] [address] [place], [place] [address]CeMaite Machuca VC INJ SCL [place] PILOT VEINSon 1 12-07-2021 VC INJ SCL [place] PILOT VEINS Patient: MIKY FUENTES Exam Date: 10/06/2022 : 1950 Gender:F Ordering : DR WILLARD SHARMA M.D. Admission #: [id number] Family : Order #: [id number] CLICK HERE TO VIEW EXAM RADIOLOGY REPORT [...] successful sclerotherapy as described Dictated by: Willard Sharma MD on 10/06/2022 at 13:45 Approved by: Willard Sharma MD on 10/06/2022 at 13:45 Normal [facility] VC CONSULT FOLLOWUPon 2021 VC CONSULT FOLLOWUP Patient: MIKY FUENTES Exam Date: 09/26/2022 : 1950 Gender:F Ordering : DR WILLARD SHARMA M.D. Admission #: [id number] Family : Order #: [id number] CLICK HERE TO VIEW EXAM RADIOLOGY REPORT [...] physical exam and consultation Dictated by: Kyle Cheney M.D. on 09/26/2022 at 15:44 Approved by: Kyle Cheney M.D. on 09/26/2022 at 15:46 Normal [facility] VC EXT VENOUS RT LIMITEDon 1 11-26-2021 VC EXT VENOUS RT LIMITED Patient: MIKY FUENTES Exam Date: 09/26/2022 : 1950 Gender:F Ordering : DR WILLARD SHARMA M.D. Admission #: [id number] Family : Order #: [id number] CLICK HERE TO VIEW EXAM RADIOLOGY REPORT [...] varicosities within right leg. Dictated by: Kyle Cheney M.D. on 09/26/2022 at 15:43 Approved by: Kyle Cheney M.D. on 09/26/2022 at 15:44 Normal [facility] VC INJ FOAM SCLERO W US MLTI on 09-20-2022 VC INJ FOAM SCLERO W US MLTI Patient: MIKY FUENTES Exam Date: 09/20/2022 : 1950 Gender:F Ordering : DR WILLARD SHARMA M.D. Admission #: [id number] Family : Order #: [id number] CLICK HERE TO VIEW EXAM RADIOLOGY REPORT [...] Varithena(r) 2. Intraoperative ultrasound guidance Physician: Kyle Cheney M.D. Anesthesia: None. Indications for Procedure: 72 [...] PERSONNEL: Braxton Herrera R.N. Dictated by: Kyle Cheney M.D. on 09/20/2022 at 15:38 Approved by: Kyle Cheney M.D. on 09/20/2022 at 15:43 [facility] CONSULT FOLLOWUPon 2021 VC CONSULT FOLLOWUP Patient: MIKY FUENTES Exam Date: 09/07/2022 : 1950 Gender:F Ordering : DR WILLARD SHARMA M.D. Admission #: [id number] Family : Order #: [id number] CLICK HERE [...] physical exam and consultation Dictated by: Willard Sharma MD on 09/07/2022 at 13:01 Approved by: Willard Sharma MD on 09/07/2022 at 13:04 Normal [facility] VC EXT VENOUS LT LIMITEDon 1 11-07-2021 VC EXT VENOUS LT LIMITED Patient: MIKY FUENTES Exam Date: 09/07/2022 : 1950 Gender:F Ordering : DR WILLARD SHARMA M.D. Admission #: [id number] Family : Order #: [id number] CLICK HERE TO VIEW EXAM RADIOLOGY REPORT [...] left leg varicose veins Dictated by: Willard Sharma MD on 09/07/2022 at 11:58 Approved by: Willard Sharma MD on 09/07/2022 at 11:59 Normal [facility] CBC AUTO DIFFon 09-01-2022 BASO # 0.0 103/ul Normal 0.0-0.1 [facility] Comment on above: Performed By: #### C BC #### [facility] [address] [place] [address] Dr. Alysha Machuca Basophils/100 WBC (Bld) 0.6 % Normal 0.2-2.0 [facility] Comment on above: Performed By: #### C BC #### [facility] [address] [place] [address] Dr. Alysha Machuca EO # 0.3 103/ul Normal 0.0-0.7 [facility] Comment on above: Performed By: #### C BC #### [facility] [address] [place] [address] Dr. Alysha Machuca Eosinophils/100 WBC (Bld) 4.3 % Normal 0.9-7.0 [facility] Comment on above: Performed By: #### C BC #### [facility] [address] [place] [address] Dr. Alysha Machuca Erythrocyte distribution width (RBC) [Ratio] 14.6 % Normal 11.0-15.0 [facility] Comment on above: Performed By: #### C BC #### [facility] [address] [place] [address] Dr. Alysha Machuca Hematocrit (Bld) [Volume fraction] 39.7 % Normal 36.0-48.0 [facility] Comment on above: Performed By: #### C BC #### [facility] [address] [place] [address] Dr. Alysha Machuca Hemoglobin (Bld) [Mass/Vol] 13.1 g/dL Normal 12.0-16.0 [facility] Comment on above: Performed By: #### C BC #### [facility] [address] [place] [address] Dr. Alysha Machuca IG # 0.01 10e3/ul Normal 0.00-0.03 [facility] Comment on above: Performed By: #### C BC #### [facility] [address] [place] [address] Dr. Alysha Machuca IG % 0.2 % Normal 0.0-0.5 [facility] Comment on above: Performed By: #### C BC #### [facility] [address] [place] [address] Dr. Alysha Machuca LYMPH # 1.9 103/ul Normal 1.2-3.8 [facility] Comment on above: Performed By: #### C BC #### [facility] [address] [place] [address] Dr. Alysha Machuca Lymphocytes/100 WBC (Bld) 29.5 % Normal 20.5-60.0 [facility] Comment on above: Performed By: #### C BC #### [facility] [address] [place] [address] Dr. Alysha Machuca MANUAL DIFF REQ NO Normal [facility] Comment on above: Performed By: #### C BC #### [facility] [address] [place] [address] Dr. Alysha Machuca MCH (RBC) [Entitic mass] 29.8 pg Normal 26.7-34.0 [facility] Comment on above: Performed By: #### C BC #### [facility] [address] [place] [address] Dr. Alysha Machuca MCHC (RBC) [Mass/Vol] 33.0 g/dL Normal 29.9-35.2 [facility] Comment on above: Performed By: #### C BC #### [facility] [facility] [address] [place] [address] Dr. Alysha Machuca MCV (RBC) [Entitic vol] 90.2 fL Normal 81.0-99.0 [facility] Comment on above: Performed By: #### C BC #### [facility] [address] [place] [address] Dr. Alysha Machuca MONO # 0.5 103/ul Normal 0.3-0.8 [facility] Comment on above: Performed By: #### C BC #### [facility] [address] [place] [address] Dr. Alysha Machuca Monocytes/100 WBC (Bld) 7.0 % Normal 1.7-12.0 [facility] Comment on above: Performed By: #### C BC #### [facility] [address] [place] [address] Dr. Alysha Machuca NEUT # 3.8 103/ul Normal 1.4-6.5 [facility] Comment on above: Performed By: #### C BC #### [facility] [address] [place] [address] Dr. Alysha Machuca Neutrophils/100 WBC (Bld) 58.4 % Normal 43.0-75.0 [facility] Comment on above: Performed By: #### C BC #### [facility] [address] [place] [address] Dr. Alysha Machuca Platelet mean volume (Bld) [Entitic vol] 9.5 fL Normal 9.5-13.5 [facility] Comment on above: Performed By: #### C BC #### [facility] [address] [place] [address] Dr. Alysha Machuca PLT 235 103/ul Normal 150-450 [facility] Comment on above: Performed By: #### C BC #### [facility] [address] [place] [address] Dr. Alysha Machuca RBC 4.40 106/ul Normal 4.20-5.40 [facility] Comment on above: Performed By: #### C BC #### [facility] [address] [address] [address] Alysha Machuca WBC 6.6 103/ul Normal 4.0-11.0 [facility] Comment on above: Performed By: #### C BC #### [facility] [address] [address] [address] Alysha Machuca PROF CHEM 8 (BAS METB)on Anion gap [Moles/Vol] 7.7 mmol/L Normal [facility] Comment on above: Performed By: #### B MP ####[facility] [address] [address]DrMaite Machuca Calcium [Mass/Vol] 9.8 mg/dL Normal 8.5-10.1 [facility] Comment on above: Performed By: #### B MP ####[facility] [address] [address]DrMaite Machuca Chloride [Moles/Vol] 104 mmol/L Normal 98-107 [facility] Comment on above: Performed By: #### B MP ####[facility] [address] [address]DrMaite Machuca CO2 [Moles/Vol] 29.2 mmol/L Normal 21.0-32.0 [facility] Comment on above: Performed By: #### B MP ####[facility] [address] [address]DrMaite Machuca Creatinine [Mass/Vol] 1.05 mg/dL Critically high 0.55-1.02 [facility] Comment on above: Performed By: #### B MP ####[facility] [address] [address]DrMaite Machuca EGFR-AF [place] ISLANDER >60 Normal >=60 [facility] Comment on above: Performed By: #### B MP ####[facility] [address] [address]Dr. Alysha Machuca EGFR-NON AF [place]ER 52 mL/min/1.73m2 Critically low >=60 [facility] Comment on above: Performed By: #### B MP ####[facility] [address] [id number]. Alysha Machuca Glucose [Mass/Vol] 107 mg/dL Critically high 74-106 [facility] Comment on above: Performed By: #### B MP ####[facility] [address] [id number]. Alysha Sven Potassium [Moles/Vol] 3.9 mmol/L Normal 3.5-5.1 [facility] Comment on above: Performed By: #### B MP ####[facility] [address] [address]Dr. Alysha Sven Sodium [Moles/Vol] 137 mmol/L Normal 136-145 [facility] Comment on above: Performed By: #### B MP ####[facility] [address] [address]Dr. Alysha Sven Urea nitrogen [Mass/Vol] 16.0 mg/dL Normal 7.0-18.0 [facility] Comment on above: Performed By: #### B MP ####[facility] [address] [id number]. Alysha Sven Urea nitrogen/Creatini ne [Mass ratio] 15.2 mg/mg Normal [facility] Comment on above: Performed By: #### B MP ####[facility] [address] [address]Dr. Alysha Sven VC INJ FOAM SCLERO W US MLTI on 08-31-2022 VC INJ FOAM SCLERO W US MLTI Patient: MIKY FUENTES Exam Date: 08/31/2022 : 1950 Gender:F Ordering : DR WILLARD SHARMA M.D. Admission #: [id number] Family : Order #: [id number] CLICK HERE TO VIEW EXAM RADIOLOGY REPORT [...] Varithena(r) 2. Intraoperative ultrasound guidance Physician: Willard Sharma M.D. Anesthesia: None Indications for Procedure: 72-year-old [...] compressi (more content not included)... Normal [facility] VC CONSULT FOLLOWUPon 2021 VC CONSULT FOLLOWUP Patient: MIKY FUENTES Exam Date: 08/22/2022 : 1950 Gender:F Ordering : DR WILLARD SHARMA M.D. Admission #: [id number] Family : Order #: [id number] CLICK HERE TO VIEW EXAM RADIOLOGY REPORT [...] physical exam and consultation Dictated by: Willard Sharma MD on 08/22/2022 at 10:39 Approved by: Willard Sharma MD on 08/22/2022 at 10:45 Normal [facility] VC EXT VENOUS RT LIMITEDon 1 VC EXT VENOUS RT LIMITED Patient: MIKY FUENTES Exam Date: 08/22/2022 : 1950 Gender:F Ordering : DR WILLARD SHARMA M.D. Admission #: [id number] Family : Order #: [id number] CLICK HERE TO VIEW EXAM RADIOLOGY REPORT [...] up to 7 mm Dictated by: Willard Sharma MD on 08/22/2022 at 10:21 Approved by: Willard Sharma MD on 08/22/2022 at 10:21 [facility] VC INJ FOAM SCLERO W US MLTI on 08-17-2022 VC INJ FOAM SCLERO W US MLTI Patient: MIKY FUENTES Exam Date: 08/17/2022 : 1950 Gender:F Ordering : DR WILLARD SHARMA M.D. Admission #: [id number] Family : Order #: [id number] CLICK HERE TO VIEW EXAM RADIOLOGY REPORT [...] Varithena(r) 2. Intraoperative ultrasound guidance Physician: Willard Sharma M.D. Anesthesia: None Indications for Procedure: 72-year-old [...] take (more content not included)... Normal [facility] VC CONSULT FOLLOWUPon 2021 VC CONSULT FOLLOWUP Patient: MIKY FUENTES Exam Date: 08/07/2022 : 1950 Gender:F Ordering : DR WILLARD SHARMA M.D. Admission #: [id number] Family : Order #: [id number] CLICK HERE TO VIEW EXAM RADIOLOGY REPORT [...] physical exam and consultation Dictated by: Willard Sharma MD on 08/07/2022 at 13:03 Approved by: Willard Sharma MD on 08/07/2022 at 13:31 Normal [facility] VC EXT VENOUS LT LIMITEDon 1 VC EXT VENOUS LT LIMITED Patient: MIKY FUENTES Exam Date: 08/07/2022 : 1950 Gender:F Ordering : DR WILLARD SHARMA M.D. Admission #: [id number] Family : Order #: [id number] CLICK HERE TO VIEW EXAM RADIOLOGY REPORT [...] 5.1 mm in diameter Dictated by: Willard Sharma MD on 08/07/2022 at 12:01 Approved by: Willard Sharma MD on 08/07/2022 at 12:01 Normal [facility] VC INJ FOAM SCLERO W US MLTI on 08-01-2022 VC INJ FOAM SCLERO W US MLTI Patient: MIKY FUENTES Exam Date: 08/01/2022 : 1950 Gender:F Ordering : DR WILLARD SHARMA M.D. Admission #: [id number] Family : Order #: [id number] CLICK HERE TO VIEW EXAM RADIOLOGY REPORT [...] Varithena(r) 2. Intraoperative ultrasound guidance Physician: Willard Sharma M.D. Anesthesia: None Indications for Procedure: 72-year-old [...] compr (more content not included)... Normal [facility] VC CONSULT FOLLOWUPon 2021 VC CONSULT FOLLOWUP Patient: MIKY FUENTES Exam Date: 07/17/2022 : 1950 Gender:F Ordering : DR WILLARD SHARMA M.D. Admission #: [id number] Family : Order #: [id number] CLICK HERE TO VIEW EXAM RADIOLOGY REPORT [...] physical exam and consultation Dictated by: Kyle Cheney M.D. on 07/17/2022 at 12:15 Approved by: Kyle Cheney M.D. on 07/17/2022 at 12:18 Normal [facility] VC EXT VENOUS RT LIMITEDon 0 07-17-2022 VC EXT VENOUS RT LIMITED Patient: MIKY FUENTES Exam Date: 07/17/2022 : 1950 Gender:F Ordering : DR WILLARD SHARMA M.D. Admission #: [id number] Family : Order #: [id number] CLICK HERE TO VIEW EXAM RADIOLOGY REPORT [...] treated branch saphenous varicosities. Dictated by: Kyle Cheney M.D. on 07/17/2022 at 12:03 Approved by: Kyle Cheney M.D. on 07/17/2022 at 12:14 [facility] VC INJ FOAM SCLERO W US MLTI on 07-12-2022 VC INJ FOAM SCLERO W US MLTI Patient: MIKY FUENTES Exam Date: 07/12/2022 : 1950 Gender:F Ordering : DR WILLARD SHARMA M.D. Admission #: [id number] Family : Order #: [id number] CLICK HERE TO VIEW EXAM RADIOLOGY REPORT [...] Varithena(r) 2. Intraoperative ultrasound guidance Physician: Willard Sharma M.D. Anesthesia: None Indications for Procedure: 72-year-old [...] da (more content not included)... Normal [facility] VC CONSULT FOLLOWUPon 2021 VC CONSULT FOLLOWUP Patient: MIKY FUENTES Exam Date: 06/30/2022 : 1950 Gender:F Ordering : DR WILLARD SHARMA M.D. Admission #: [id number] Family : Order #: [id number] CLICK HERE TO VIEW EXAM RADIOLOGY REPORT [...] physical exam and consultation Dictated by: Willard Sharma MD on 06/30/2022 at 13:16 Approved by: Willard Sharma MD on 06/30/2022 at 13:21 Normal [facility] VC EXT VENOUS LT LIMITEDon 0 06-30-2022 VC EXT VENOUS LT LIMITED Patient: MIKY FUENTES Exam Date: 06/30/2022 : 1950 Gender:F Ordering : DR WILLARD SHARMA M.D. Admission #: [id number] Family : Order #: [id number] CLICK HERE TO VIEW EXAM RADIOLOGY REPORT [...] up to 6.1 mm Dictated by: Willard Sharma MD on 06/30/2022 at 13:00 Approved by: Willard Sharma MD on 06/30/2022 at 13:02 Normal [facility] ALBUMIN, RANDOM URINE W/CREA TININEon 06-26-2022 ALBUMIN, URINE 12.7 mg/dL Normal See Note: [facility] Comment on above: Result Comment: Refe rence Range: Reference Range Not established Performed By: #### 7 600, 496, 53347, 6517 #### [facility] [address], [address] [place] [address] Restaurant Greeter: Marek Subramanian MD ALBUMIN/CREATININ E RATIO, RANDOM [...] category. Performed By: #### 7 600, 496, 15228, 6517 #### [facility] [address] [place] [address] Restaurant Greeter: Marek Subramanian MD Creatinine (U) [Mass/Vol] 205 mg/dL Normal 20-275 [facility] Comment on above: Performed By: #### 7 600, 496, 60703, 6517 #### [facility] [address] [place] [address] Restaurant Greeter: Marek Subramanian MD [facility] 06-26-2022 Albumin [Mass/Vol] 3.9 g/dL Normal 3.6-5.1 [facility] Comment on above: Performed By: #### 7 600, 496, 06784, 6517 #### [facility] [address] [place] [address] Restaurant Greeter: Marek Subramanian MD Albumin/Globulin [Mass ratio] 1.4 {ratio} Normal 1.0-2.5 [facility] Comment on above: Performed By: #### 7 600, 496, 57827, 6517 #### [facility] [place] [address] Restaurant Greeter: Marek Subramanian MD ALP [Catalytic activity/Vol] 106 U/L Normal 37-153 [facility] Comment on above: Performed By: #### 7 600, 496, 89260, 6517 #### [facility] [place] [address] Restaurant Greeter: Marek Subramanian MD ALT [Catalytic activity/Vol] 10 U/L Normal 6-29 [facility] Comment on above: Performed By: #### 7 600, 496, 54489, 6517 #### [facility] of [place] [address] Restaurant Greeter: Marek Subramanian MD AST [Catalytic activity/Vol] 13 U/L Normal 10-35 [facility] Comment on above: Performed By: #### 7 600, 496, 12614, 6517 #### [facility] of [address] [place] [address] Restaurant Greeter: Marek Subramanian MD Bilirubin [Mass/Vol] 0.8 mg/dL Normal 0.2-1.2 [facility] Comment on above: Performed By: #### 7 600, 496, 71666, 6517 #### [facility] [place] [address] Restaurant Greeter: Marek Subramanian MD BUN/CREATININE RATIO NOT APPLICABLE Normal 6-22 [facility] Comment on above: Performed By: #### 7 600, 496, 79260, 6517 #### [facility] [place] [address] Restaurant Greeter: Marek Subramanian MD Calcium [Mass/Vol] 9.9 mg/dL Normal 8.6-10.4 [facility] Comment on above: Performed By: #### 7 600, 496, 69359, 6517 #### [facility] of [address] [place] [address] Restaurant Greeter: Marek Subramanian MD Chloride [Moles/Vol] 109 mmol/L Normal 98-110 [facility] Comment on above: Performed By: #### 7 600, 496, 06225, 6517 #### [facility] of [address] [place] [address] Restaurant Greeter: Marek Subramanian MD CO2 [Moles/Vol] 24 mmol/L Normal 20-32 [facility] Comment on above: Performed By: #### 7 600, 496, 86958, 6517 #### [facility] [place] [address] Restaurant Greeter: Marek Subramanian MD Creatinine [Mass/Vol] 0.88 mg/dL Normal 0.60-1.00 [facility] Comment on above: Performed By: #### 7 600, 496, 64651, 6517 #### [facility] [place] [address] Restaurant Greeter: Marek Subramanian MD GFR/1.73 sq M.predicted among non-blacks MDRD (S/P/Bld) [Vol rate/Area] 70 mL/min/{1.73_m2} Normal > OR = 60 [facility] Comment on above: Result Comment: The eGFR is based on the CKD-EPI 2020 equation. To calculate the new eGFR from a previous Creatinine or Cystatin C result, go to https://www.kidney.org/professionals/ kdoqi/gfr%5Fcalculator Performed By: #### 7 600, 496, 61017, 6517 #### [facility] [place] [address] Restaurant Greeter: Marek Subramanian MD Globulin (S) [Mass/Vol] 2.7 g/dL Normal 1.9-3.7 [facility] Comment on above: Performed By: #### 7 600, 496, 15056, 6517 #### [facility] [place] [address] Restaurant Greeter: Marek Subramanian MD Glucose [Mass/Vol] 91 mg/dL Normal 65-99 [facility] Comment on above: Result Comment: Fasting reference interval Performed By: #### 7 600, 496, 32992, 6517 #### [facility] [place] [address] Restaurant Greeter: Marek Subramanian MD Potassium [Moles/Vol] 4.0 mmol/L Normal 3.5-5.3 [facility] Comment on above: Performed By: #### 7 600, 496, 16242, 6517 #### [facility] of [address], [address] [place] [address] Restaurant Greeter: Marek Subramanian MD Protein [Mass/Vol] 6.6 g/dL Normal 6.1-8.1 [facility] Comment on above: Performed By: #### 7 600, 496, 86521, 6517 #### [facility] [address], [address] [place] [address] Restaurant Greeter: Marek Subramanian MD Sodium [Moles/Vol] 143 mmol/L Normal 135-146 [facility] Comment on above: Performed By: #### 7 600, 496, 88438, 6517 #### [facility] [address], [address] [place] [address] Restaurant Greeter: Marek Subramanian MD Urea nitrogen [Mass/Vol] 15 mg/dL Normal 7-25 [facility] Comment on above: Performed By: #### 7 600, 496, 89019, 6517 #### [facility] [address], [address] [place] [address] Restaurant Greeter: Marek Subramanian MD HEMOGLOBIN A1con 06-26-2022 HEMOGLOBIN [...] diagnosis of diabetes in children. According to [place] Diabetes Association (ADA) guidelines, hemoglobin A1c <7.0% represents optimal control in non- diabetic patients. Different metrics may apply to specific patient populations. Standards of Medical Care in Diabetes(ADA). Performed By: #### 7 600, 496, 48613, 6517 #### [facility] [address], [address] [place] [address] Restaurant Greeter: Marek Subramanian MD LIPID PANEL, STANDARDon 08- Cholesterol [Mass/Vol] 171 mg/dL Normal <200 [facility] Comment on above: Order Comment: FASTI NG:YES FASTING: YES Performed By: #### 7 600, 496, 26316, 6517 #### [facility] [address], [address] [place] [address] Restaurant Greeter: Marek Subramanian MD Cholesterol in HDL [Mass/Vol] 60 mg/dL Normal > OR = 50 [facility] Comment on above: Order Comment: FASTI NG:YES FASTING: YES Performed By: #### 7 600, 496, 33907, 6517 #### [facility] [address], [address] [place] [address] Restaurant Greeter: Marek Subramanian MD Cholesterol in LDL [Mass/Vol] [...] equation in the estimation of LDL-C. Nikita SS et al. LEWIS. 2013;310(19): 4707-6523 (http://education.WeDemand.Alex and Ani/faq/SGX361) Performed By: #### 7 600, 496, 56354, 6517 #### [facility] [address], [address] [place] [address] Restaurant Greeter: Marek Subramanian MD Cholesterol.total /Cholesterol in HDL [Mass ratio] 2.9 {ratio} Normal <5.0 [facility] Comment on above: Order Comment: FASTI NG:YES FASTING: YES Performed By: #### 7 600, 496, 89565, 6517 #### [facility] [address], [address] [place] [address] Restaurant Greeter: Marek Subramanian MD NON HDL CHOLESTEROL 111 mg/dL (calc) Normal <130 [facility] Comment on above: Order Comment: FASTI NG:YES FASTING: YES Result Comment: For patients with diabetes plus 1 major ASCVD risk factor, treating to a non-HDL-C goal of <100 mg/dL (LDL-C of <70 mg/dL) is considered a therapeutic option. Performed By: #### 7 600, 496, 89703, 6517 #### [facility] [address] [place] [address], [address] Restaurant Greeter: Marek Subramanian MD Triglyceride [Mass/Vol] 95 mg/dL Normal <150 [facility] Comment on above: Order Comment: FASTI NG:YES FASTING: YES Performed By: #### 7 600, 496, 36356, 6517 #### [facility] [address] [place] [address], [address] Restaurant Greeter: Marek Subramanian MD VC INJ FOAM SCLERO W US MLTI on 06-26-2022 VC INJ FOAM SCLERO W US MLTI Patient: MIKY FUENTES Exam Date: 06/26/2022 : 1950 Gender:F Ordering : DR WILLARD SHARMA M.D. Admission #: [id number] Family : Order #: [id number] CLICK HERE TO VIEW EXAM RADIOLOGY REPORT [...] Varithena(r) 2. Intraoperative ultrasound guidance Physician: Willard Sharma M.D. Anesthesia: None Indications for Procedure: 72-year-old [...] vein medial distal lower leg/ankle. 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 Normal [facility] VC CONSULT FOLLOWUPon 2021 VC CONSULT FOLLOWUP Patient: MIKY FUENTES Exam Date: 06/19/2022 : 1950 Gender:F Ordering : DR WILLARD SHARMA M.D. Admission #: [id number] Family : Order #: [id number] CLICK HERE TO VIEW EXAM RADIOLOGY REPORT [...] physical exam and consultation Dictated by: Kyle Cheney M.D. on 06/19/2022 at 12:11 Approved by: Kyle hCeney M.D. on 06/19/2022 at 12:14 [facility] VC EXT VENOUS RT LIMITEDon 0 06-19-2022 VC EXT VENOUS RT LIMITED Patient: MIKY FUENTES Exam Date: 06/19/2022 : 1950 Gender:F Ordering : DR WILLARD SHARMA M.D. Admission #: [id number] Family : Order #: [id number] CLICK HERE TO VIEW EXAM RADIOLOGY REPORT [...] within the right leg. Dictated by: Kyle Cheney M.D. on 06/19/2022 at 12:10 Approved by: Kyle Cheney M.D. on 06/19/2022 at 12:11 Normal [facility] VC INJ FOAM SCLERO W US MLTI on 06-13-2022 VC INJ FOAM SCLERO W US MLTI Patient: MIKY FUENTES Exam Date: 06/13/2022 : 1950 Gender:F Ordering : DR WILLARD SHARMA M.D. Admission #: [id number] Family : Order #: [id number] CLICK HERE TO VIEW EXAM CORRECTION made [...] Varithena(r) 2. Intraoperative ultrasound guidance Physician: Kyle Cheney M.D. Anesthesia: None. Indications for Procedure: 71 [...] PERSONNEL: Braxton Herrera R.N. Dictated by: Kyle Cheney M.D. on 06/13/2022 at 14:43 Approved by: Kyle Cheney M.D. on 06/13/2022 at 14:49 Dictated by: Kyle Cheney M.D. on 06/19/2022 at 12:17 Approved by: Kyle Cheney M.D. on 06/19/2022 at 12:17 [facility] VC CONSULT FOLLOWUPon 2021 VC CONSULT FOLLOWUP Patient: MIKY FUENTES Exam Date: 05/31/2022 : 1950 Gender:F Ordering : DR WILLARD SHARMA M.D. Admission #: [id number] Family : Order #: [id number] CLICK HERE TO VIEW EXAM RADIOLOGY REPORT [...] physical exam and consultation Dictated by: Kyle Cheney M.D. on 05/31/2022 at 12:13 Approved by: Kyle Cheney M.D. on 05/31/2022 at 12:18 Normal [facility] VC EXT VENOUS LT LIMITEDon 0 05-31-2022 VC EXT VENOUS LT LIMITED Patient: MIKY FUENTES Exam Date: 05/31/2022 : 1950 Gender:F Ordering : DR WILLARD SHARMA M.D. Admission #: [id number] Family : Order #: [id number] CLICK HERE TO VIEW EXAM RADIOLOGY REPORT [...] vein secondary to recanalization. Dictated by: Kyle Cheney M.D. on 05/31/2022 at 11:38 Approved by: Kyle Cheney M.D. on 05/31/2022 at 12:13 Normal [facility] CT ABD/PELVIS WO CONon 05-26 CT [...] by: SANTHOSH NICK Date: 2022-05-26 16:43 Normal [facility] VC ENDOVENOUS ABL 1ST V LTon 05-23-2022 VC ENDOVENOUS ABL 1ST V LT Patient: MIKY FUENTES Exam Date: 05/23/2022 : 1950 Gender:F Ordering : DR WILLARD SHARMA M.D. Admission #: [id number] Family : Order #: [id number] CLICK HERE TO VIEW EXAM RADIOLOGY REPORT [...] left small saphenous vein. Dictated by: Kyle Cheney M.D. on 05/23/2022 at 12:31 Approved by: Kyle Cheney M.D. on 05/23/2022 at 12:34 Normal [facility] US KIDNEYSon 05-05-2022 US KIDNEYS EXAMINATION: [...] the patient's hematuria Electronically authenticated by: WILLARD SHARMA Date: 2022-05-05 13:29 Normal [facility] XR KUB 1 VIEWon 05-05-2022 XR [...] urinary tract calculi. Electronically authenticated by: KYLE CHENEY Date: 2022-05-05 15:[address] [facility] MAMM SCREEN 3D TANMAY CADon 05-04-2022 MG MAMM SCREEN 3D TANMAY CAD Patient: MIKY FUENTES Exam Date: 05/04/2022 : 1950 Gender:F Ordering : DR CONNOR ANAYA Admission #: [id number] Family : Order #: [id number] CLICK HERE TO VIEW EXAM RADIOLOGY REPORT [...] colon cancer at age 60. LOCATION: [facility] BREAST COMPOSITION: Scattered areas fibroglandular density. [...] LUMP SHOULD BE BIOPSIED. Dictated by: Kyle Cheney M.D. on 05/05/2022 at 14:04 Approved by: Kyle Cheney M.D. on 05/05/2022 at 14:21 Normal [facility] VC CONSULT FOLLOWUPon 2021 VC CONSULT FOLLOWUP Patient: MIKY FUENTES Exam Date: 05/04/2022 : 1950 Gender:F Ordering : DR WILLARD SHARMA M.D. Admission #: [id number] Family : Order #: [id number] CLICK HERE TO VIEW EXAM RADIOLOGY REPORT [...] physical exam and consultation Dictated by: Kyle Cheney M.D. on 05/04/2022 at 11:32 Approved by: Kyle Cheney M.D. on 05/04/2022 at 11:43 Normal [facility] VC EXT VENOUS RT LIMITEDon 0 05-04-2022 VC EXT VENOUS RT LIMITED Patient: MIKY FUENTES Exam Date: 05/04/2022 : 1950 Gender:F Ordering : DR WILLARD SHARMA M.D. Admission #: [id number] Family : Order #: [id number] CLICK HERE TO VIEW EXAM RADIOLOGY REPORT [...] dilation and significant reflux. Dictated by: Kyle Cheney M.D. on 05/04/2022 at 11:08 Approved by: Kyle Cheney M.D. on 05/04/2022 at 11:17 Normal [facility] CULTURE URINEon 05-03-2022 CULTURE URINE Culture Observations : LIGHT GROWTH OF MIXED GENITAL LUDWIN. NO POTENTIAL PATHOGENS SEEN. Normal [facility] Comment on above: Performed By: #### U RCX ####[facility] [address] [place], [place] [address]WpDr. Alysha Machuca UA RANDOMon 05-03-2022 Bilirubin Ql (U) Negative Normal NEGATIVE [facility] Comment on above: Performed By: #### U A #### [facility] [address] [place] [address] Dr. Alysha Machuca Clarity (U) TURBID Abnormal CLEAR [facility] Comment on above: Performed By: #### U A #### [facility] [address] [place] [address] Dr. Alysha Machuca Color (U) RED Abnormal YELLOW [facility] Comment on above: Result Comment: Prev iously reported as: YELLOW On 05/03/2022 17:30 By CV2 Performed By: #### U A #### [facility] [address] [place] [address] Dr. Alysha Machuca Glucose Ql (U) Negative Normal NEGATIVE [facility] Comment on above: Performed By: #### U A #### [facility] Laboratory [address] [place] [address] Dr. Alysha Machuca Hemoglobin Ql (U) LARGE Abnormal NEGATIVE [facility] Comment on above: Performed By: #### U A #### [facility] Laboratory [address] [place] [address] Dr. Alysha Machuca Ketones Ql (U) Negative Normal NEGATIVE [facility] Comment on above: Performed By: #### U A #### [facility] Laboratory [address] [place] [address] Dr. Alysha Machuca LEUKOCYTES Negative Normal NEGATIVE [facility] Comment on above: Performed By: #### U A #### [facility] Laboratory [address] [place] [address] Dr. Alysha Machuca Nitrite Ql (U) Negative Normal NEGATIVE [facility] Comment on above: Performed By: #### U A #### [facility] Laboratory [address] [place] [address] Dr. Alysha Machuca pH (U) 6.0 [pH] Normal 5-9 [facility] Comment on above: Performed By: #### U A #### [facility] Laboratory [address] [place] [address] Dr. Alysha Machuca SPEC GRAVITY 1.025 Normal 1.005-<=1.025 [facility] Comment on above: Performed By: #### U A #### [facility] Laboratory [address] [address] [address] Alysha Machuca UA PROTEIN 100 mg/dl Abnormal NEGATIVE/ TRACE [facility] Comment on above: Performed By: #### U A #### [facility] Laboratory [id number] Alysha Machuca Urobilinogen Qn (U) 0.2 {Luis'U}/dL Normal 0.2 - 1.0 [facility] Comment on above: Performed By: #### U A #### [facility] Laboratory [address] [place] [address] Dr. Alysha Machuca VC ENDOVENOUS ABL 1ST V RTon 04-26-2022 VC ENDOVENOUS ABL 1ST V RT Patient: MIKY FUENTES Exam Date: 04/26/2022 : 1950 Gender:F Ordering : DR WILLARD SHARMA M.D. Admission #: [id number] Family : Order #: [id number] CLICK HERE TO VIEW EXAM RADIOLOGY REPORT [...] right small saphenous vein. Dictated by: Willard Sharma MD on 04/26/2022 at 10:54 Approved by: Willard Sharma MD on 04/26/2022 at 10:58 Normal [facility] VC CONSULT FOLLOWUPon 2021 VC CONSULT FOLLOWUP Patient: MIKY FUENTES Exam Date: 04/13/2022 : 1950 Gender:F Ordering : DR WILLARD SHARMA M.D. Admission #: [id number] Family : Order #: [id number] CLICK HERE TO VIEW EXAM RADIOLOGY REPORT [...] physical exam and consultation Dictated by: Kyle Cheney M.D. on 04/13/2022 at 10:56 Approved by: Kyle Cheney M.D. on 04/13/2022 at 10:59 Normal [facility] VC EXT VENOUS LT LIMITEDon 0 04-13-2022 VC EXT VENOUS LT LIMITED Patient: MIKY FUENTES Exam Date: 04/13/2022 : 1950 Gender:F Ordering : DR WILLARD SHARMA M.D. Admission #: [id number] Family : Order #: [id number] CLICK HERE TO VIEW EXAM RADIOLOGY REPORT [...] accessory saphenous vein branches. Dictated by: Kyle hCeney M.D. on 04/13/2022 at 10:55 Approved by: Kyle Cheney M.D. on 04/13/2022 at 10:56 Normal [facility] Office Visit (Cardiology)on 03-22-2022 Follow-up visit [...] Weight Tips; Status:Complete - Retrospective Authorization; Done: [id number] Paroxysmal atrial fibrillation IO EKG Electrocardiogram- 12 Lead; Status:Complete; Done: [id number] SocHx: Never a smoker Tobacco Use Screening; Status:Complete; Done: [id number] Patient Instructions By signing my name below, I, David Maldonado LPN, attest that this documentation has [...] failure. With guideline directed therapy in the baptism of maintenance of sinus rhythm her symptoms [...] Oral TabletTake 1 tablet twice a day [place] 3 [place] DIRECTED. Tylenol Arthritis Ext Relief [...] negative for complaint. Vitals Vital Signs Recorded: [id number] 02:06PM Heart Rate47, Apical Xhkdiqml140, RUE, Sitting Xhgajhptf06, RUE, Sitting Height5 ft 5 in Cbzhff212 lb 6.4 oz BMI Ygdrbzoqef20.17 kg/m2 BSA Calculated2.19 Tobacco Useb) No PHQ-2 [...] no murmurs (more content not included)... Normal [facility] Tobacco Screening.on 022 Adult depression screening assessment No -[facility] [facility] DO Work Phone: Fall risk assessment a) No falls within the last year [facility] [facility] DO Work Phone: Tobacco use status CP b) No -[facility] [facility] DO Work Phone: VC ENDOVENOUS ABL PERFORATIN G LTon 03-22-2022 VC ENDOVENOUS ABL PERFORATING LT Patient: MKIY FUENTES Exam Date: 03/22/2022 : 1950 Gender:F Ordering : DR WILLARD SHARMA M.D. Admission #: [id number] Family : Order #: [id number] CLICK HERE TO VIEW EXAM RADIOLOGY REPORT PROCEDURE: VEIN CENTER ENDOVENOUS ABLATION VEIN LEFT LEG COMPARISON: None. 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 Normal [facility] KAL SCREEN, IFA, W/REFL TITE R/PATTERN [...] indicated. For additional information, please refer to http://education.WeDemand.Alex and Ani/faq/ESF904 (This link is being provided for informational/ educational purposes only.) Performed By: #### 8 15, 7097, 5225, 66185, %[id number] #### [facility] [address], [address] [place], [place] [id number] Restaurant Greeter: Marek Subramanian MD ANTINUCLEAR ANTIBODIES TITER AND PATTERNon 10-01-2021 KAL PATTERN Nuclear, Centromere Abnormal Ques t [facility] Comment on above: Result Comment: Cent romere pattern is associated with limited cutaneous systemic sclerosis, CREST (Calcinosis, Raynaud's, Esophageal dysmotility, Sclerodactyly, Telangiectasia), primary biliary cholangitis (PBC), and other autoimmune diseases. AC-3: Centromere International Consensus on KAL Patterns (https://doi.org/10.1515/mfte-4536-8629) Performed By: #### 8 09, 8268, 4420, 82740, %[id number] #### [facility] [address], [address] [place] [address] Restaurant Greeter: Marek Subramanian MD KAL PATTERN Nuclear, Homogeneous Abnormal Que [facility] Comment on above: Result Comment: Homo geneous pattern is associated with systemic lupus erythematosus (SLE), drug-induced lupus and juvenile idiopathic arthritis. AC-1: Homogeneous International Consensus on KAL Patterns (https://doi.org/10.1515/qxei-4296-6703) Performed By: #### 8 09, 8268, 4420, 73889, %[id number] #### [facility] [address], [address] [place] [address] Restaurant Greeter: Marek Subramanian MD KAL TITER > OR = 1:1280 Abnormal [facility] Comment on above: Result Comment: Refe rence Range <1:40 Negative 1:40-1:80 Low Antibody Level >1:80 Elevated Antibody Level Performed By: #### 8 09, 8268, 4420, 97021, %[id number] #### [facility] [address], [address] [place], [place] [id number] Restaurant Greeter: Marek Subramanian MD KAL TITER 1:80 High [facility] Comment on above: Result Comment: A lo w level KAL titer may be present in pre- clinical autoimmune diseases and normal individuals. Reference Range <1:40 Negative 1:40-1:80 Low Antibody Level >1:80 Elevated Antibody Level Performed By: #### 8 09, 8268, 4420, 19372, %[id number] #### [facility] [address] [address] Restaurant Greeter: Marek Subramanian MD C-REACTIVE PROTEINon 021 CRP [Mass/Vol] 13.4 mg/L High <8.0 [facility] Comment on above: Performed By: #### 8 09, 8268, 4420, 31617, %[id number] #### [facility] [address], [address] [place] [address] Restaurant Greeter: Marek Subramanian MD RHEUMATOID ARTHRITIS DIAGNOS TIC PANEL 1on 10-01-2021 CYCLIC CITRULLINATED PEPTIDE (CCP) AB (IGG) <16 Normal [facility] Comment on above: Result Comment: Refe rence Range Negative: <20 Weak Positive: 20-39 Moderate Positive: 40-59 Strong Positive: >59 Performed By: #### 8 09, 8268, 4420, 98911, %46009 #### [facility] [address] [address] Restaurant Greeter: Marek Subramanian MD INTERPRETATION Normal [facility] Comment on above: Result Comment: These serologic results may be found in 10-20% of patients with polyarthritis that is clinically and radiologically indistinguishable from RA. Performed By: #### 8 09, 8268, 4420, 71666, %[id number] #### [facility] [address] [address] Restaurant Greeter: Marek Subramanian MD RHEUMATOID FACTOR <14 Normal <14 [facility] Comment on above: Performed By: #### 8 09, 8268, 4420, 63401, %[id number] #### [facility] [address] [address] Restaurant Greeter: Marek Subramanian MD SED RATE BY MODIFIED SILAS RENon 10-01-2021 SED RATE BY MODIFIED WESTERGREN 51 mm/h High < OR = 30 [facility] Comment on above: Performed By: #### 8 09, 8268, 4420, 90077, %[id number] #### [facility] [id number] [facility], [address] [place] [address] Restaurant Greeter: Marek Subramanian MD Tobacco Screening.on 021 Fall risk assessment a) No falls within the last year [facility] 600 DO Work Phone: Tobacco use status [facility] b) No [facility] 600 DO Work Phone: Vital Signs Date Time Vital Sign Value Performing Clinician Facility 08-28-2024 10:39-0400 Body height 165.1 cm Carmen Lopez MD Work Phone: [facility] 08-28-2024 10:39-0400 Body mass index (BMI) [Ratio] 35.28 kg/m2 Carmen Lopez MD Work Phone: [facility] 08-28-2024 10:39-0400 Body weight 96.16 kg Carmen Lopez MD Work Phone: [facility] 08-28-2024 10:39-0400 Diastolic blood pressure 56 mm[Hg] Carmen Lopez MD Work Phone: [facility] 08-28-2024 10:39-0400 Heart rate 56 /min Carmen Lopez MD Work Phone: [facility] 08-28-2024 10:39-0400 Systolic blood pressure 122 mm[Hg] Carmen Lopez MD Work Phone: [facility] 08-18-2024 10:47-0400 Body height 162.6 cm Connor [facility] Work Phone: [employer] 08-18-2024 10:47-0400 Body mass index (BMI) [Ratio] 36.22 kg/m2 [employer] Work Phone: [facility] 08-18-2024 10:47-0400 Body temperature 97.39 [degF] Connor Tavaresng DO Work Phone: [facility] 08-18-2024 10:47-0400 Body weight 95.71 kg Connor Tavaresng DO [facility] Phone: [facility] 08-18-2024 10:47-0400 Diastolic blood pressure 72 mm[Hg] Connor Lewislong DO [email or web address] 08-18-2024 10:47-0400 Heart rate 64 /min Connor Tavaresng DO Work Phone: [facility] 08-18-2024 10:47-0400 Systolic blood pressure 124 mm[Hg] Connor Tavaresng DO Work Phone: [facility] 03-06-2024 09:31-0400 Body height 165.1 cm Nick Richardson MD Work Phone: [facility] 03-06-2024 09:31-0400 Body mass index (BMI) [Ratio] 36.78 kg/m2 Nick Richardson MD Work Phone: [facility] 03-06-2024 09:31-0400 Body weight 100.25 kg Nick Richardson MD Work Phone: [facility] 03-06-2024 09:31-0400 Diastolic blood pressure 58 mm[Hg] Nick Richardson MD Work Phone: [facility] 03-06-2024 09:31-0400 Heart rate 44 /min Nick Richardson MD Work Phone: [facility] 03-06-2024 09:31-0400 Systolic blood pressure 104 mm[Hg] Nick Richardson MD Work Phone: [facility] 12-06-2022 13:27-0500 Body height 165.1 cm Connor Tavaresng Work Phone: [facility] 250 DO Work Phone: 12-06-2022 13:27-0500 Body mass index (BMI) [Ratio] 36.94 kg/m2 Connor Marinelli Furlong Work Phone: [facility] 250 DO Work Phone: 12-06-2022 13:27-0500 Body surface area Derived from formula 2.07 m2 Connro Marinelli Furlong Work Phone: [facility] 250 DO Work Phone: 12-06-2022 13:27-0500 Body weight 100.7 kg Connor Marinelli Furlong Work Phone: [facility] 250 DO Work Phone: 12-06-2022 13:27-0500 Diastolic blood pressure 84 mm[Hg] Connor Marinelli Furlong Work Phone: [facility] DO Work Phone: 12-06-2022 13:27-0500 Heart rate 43 /min Connor Marinelli Furlong Work Phone: [facility] 250 DO Work Phone: 12-06-2022 13:27-0500 Systolic blood pressure 130 mm[Hg] Connor Marinelli Furlong Work Phone: [facility] DO Work Phone: 06-30-2022 11:43-0400 Blood Pressure Location Yehuda HASSAN [facility] 06-30-2022 11:43-0400 Diastolic blood pressure 69 mm[Hg] Yehuda HASSAN [facility] 06-30-2022 11:43-0400 Heart rate 60 /min Yehuda HASSAN [facility] 06-30-2022 11:43-0400 Respiratory rate 16 /min Yehuda HASSAN [facility] 06-30-2022 11:43-0400 Systolic blood pressure 129 mm[Hg] Yehuda HASSAN [facility] 03-22-2022 14:06-0400 Body height 165.1 cm Connor G Furlong Work Phone: [facility] DO Work Phone: 03-22-2022 14:06-0400 Body mass index (BMI) [Ratio] 42.17 kg/m2 Connor G Furlong Work Phone: [facility] 250 DO Work Phone: 03-22-2022 14:06-0400 Body surface area Derived from formula 2.19 m2 Connor G Furlong Work Phone: [facility] 250 DO Work Phone: 03-22-2022 14:06-0400 Body weight 114.94 kg Connor G Furlong Work Phone: [facility] DO Work Phone: 03-22-2022 14:06-0400 Diastolic blood pressure 70 mm[Hg] Connor G Furlong Work Phone: [facility] DO Work Phone: 03-22-2022 14:06-0400 Heart rate 47 /min Connor G Furlong Work Phone: [facility] 250 DO Work Phone: 03-22-2022 14:06-0400 Systolic blood pressure 114 mm[Hg] Connor G Furlong Work Phone: [facility] 250 DO Work Phone: 08-16-2021 14:38-0400 Body height 165.1 cm Connor Marinelli Furlong Work Phone: [facility] [employer] 600 DO Work Phone: 08-16-2021 14:38-0400 Body mass index (BMI) [Ratio] 42.53 kg/m2 Connor G Furlong Work Phone: [facility] [employer] 600 DO Work Phone: 08-16-2021 14:38-0400 Body surface area Derived from formula 2.2 m2 Connor G Furlong Work Phone: [facility] [employer] 600 DO Work Phone: 08-16-2021 14:38-0400 Body weight 115.94 kg Connor Marinelli Furlong Work Phone: [facility] [employer] 600 DO Work Phone: 08-16-2021 14:38-0400 Diastolic blood pressure 74 mm[Hg] Connor Marinelli Furlong Work Phone: [facility] [employer] 600 DO Work Phone: 08-16-2021 14:38-0400 Heart rate 44 /min Connor Marinelli Furlong Work Phone: [facility] [employer] 600 DO Work Phone: 08-16-2021 14:38-0400 Systolic blood pressure 134 mm[Hg] Connor G Furlong Work Phone: [facility] [employer] 600 DO Work Phone: Encounters Encounter Date Encounter Type Care Provider Facility Start: 09-03-2024 End: 09-03-2024 Orders Only Connor Marinelli Furlong DO Work Phone: [facility] Start: 09-02-2024 End: 09-02-2024 Bamboo flowsheet Nany HO Work Phone: [facility] Start: 09-02-2024 End: 09-02-2024 Bamboo flowsheet Nany Swanson PA Work Phone: [facility] Start: 09-02-2024 End: 09-04-2024 [facility] Start: 09-02-2024 End: 09-02-2024 ambulatory NANY SWANSON Not Available Start: 09-02-2024 End: 09-02-2024 Office outpatient visit 25 minutes Nany HO Work Phone: [facility] Comment on above: Arthritis of right k nee (Primary Dx); Acute pain of right knee; Chondromalacia, patella, right Start: 08-28-2024 End: 08-28-2024 Office outpatient visit 25 minutes Carmen Lopez MD Work Phone: [facility] Comment on above: Paroxysmal atrial fi brillation (Multi) (Primary Dx); Non-ischemic cardiomyopathy (Multi); Mixed hyperlipidemia; Sinus bradycardia; High risk medication use; Class 2 obesity; BMI 35.0-35.9,adult; Never smoked tobacco Start: 08-28-2024 End: 08-28-2024 ambulatory [facility] Start: 08-19-2024 End: 08-19-2024 Orders Only Connor Anaya DO Work Phone: [facility] Start: 08-18-2024 End: 08-18-2024 ambulatory [facility] Start: 08-18-2024 End: 08-18-2024 ambulatory [facility] Start: 08-18-2024 End: 08-18-2024 Office outpatient visit 25 minutes Connor Tavaresng DO Work Phone: 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 and body mass index (BMI) of 36.0 to 36.9 in adult Start: 07-29-2024 End: 07-29-2024 Lab Drop off Radha X Orzech [facility] Start: 07-29-2024 End: 07-29-2024 ambulatory Radha X Orzech Facility:[facility] Start: 07-29-2024 End: 07-29-2024 Patient encounter procedure Radha X Orzech [facility] Start: 07-15-2024 End: 07-15-2024 ambulatory Radha X Orzech Facility:[facility] Start: 07-01-2024 End: 07-01-2024 ambulatory Radha X Orzech Facility:[facility] Start: 07-01-2024 End: 07-01-2024 Patient encounter procedure [facility] X Orzech [facility] Start: 06-10-2024 End: 06-10-2024 ambulatory Radha X Orzech Facility: [facility] Start: 06-10-2024 End: 06-10-2024 Patient encounter procedure Radha X Orzech [facility] Start: 05-20-2024 End: 05-20-2024 ambulatory Radha X Orzech Facility:[facility] Start: 05-20-2024 End: 05-20-2024 Patient encounter procedure [facility] X Orzech [facility] Start: 05-16-2024 End: 05-16-2024 ambulatory [facility] Start: 05-16-2024 End: 05-16-2024 Patient encounter procedure Yehuda HASSAN [facility] Start: 03-26-2024 End: 03-26-2024 ambulatory LESVIA KEITA Not Available Start: 03-06-2024 End: 03-06-2024 Office outpatient visit 25 minutes Nick Richardson MD Work Phone: [facility] Comment on above: Mixed hyperlipidemia (Primary Dx); Paroxysmal atrial fibrillation (Multi); Non-ischemic cardiomyopathy (Multi); Never smoked tobacco; BMI 36.0-36.9,adult; Hyperlipidemia, unspecified hyperlipidemia type Start: 03-06-2024 End: 03-06-2024 ambulatory [facility] Start: 02-18-2024 End: 02-18-2024 ambulatory [facility] Start: 02-18-2024 End: 02-18-2024 ambulatory [facility] Start: 12-24-2023 End: 12-24-2023 ambulatory [facility] Start: 12-13-2023 End: 12-13-2023 ambulatory Yehuda HASSAN Facility:[facility] Start: 12-13-2023 End: 12-13-2023 Patient encounter procedure Yehuda HASSAN [facility] Start: 10-26-2023 End: 10-26-2023 ambulatory Yehuda HASSAN Facility:[facility] Start: 10-09-2023 End: 10-09-2023 ambulatory DULCE ALCAZAR Facility:[facility] Start: 03-13-[address] WILLARD Looney y:[facility] Start: 03-05-2023 End: 03-06-[address] YEHUDA HASSAN . Facility:[facility] Start: 02-20-2023 End: 02-21-2023 ambulatory DOCTOR CLAYTON Facility:[facility] Start: 12-06-2022 ambulatory Nick Richardson II Facility: Start: 12-06-2022 Office outpatient vi sit 25 minutes Connor Aanya Work Phone: [facility] 250 DO Work Phone: Start: 11-20-2022 Rx Renewal Connor Tavares ng Work Phone: [facility] 250 DO Work Phone: Start: 11-03-2022 End: 11-04-[address] YEHUDA HASSAN . Facility:[facility] Start: 10-27-2022 End: 10-28-[address] WILLARD SHARMA Facility:[facility] Start: 10-16-2022 End: 10-17-[address] WILLARD SHARMA Facility:[facility] Start: 10-10-2022 End: 10-11-[address] YEHUDA HASSAN . Facility:[facility] Start: 10-06-2022 End: 10-07-[address] WILLARD SHARMA Facility:[facility] Start: 09-26-2022 End: 09-27-[address] WILLARD SHARMA Facility:[facility] Start: 09-20-2022 End: 09-21-[address] WILLARD SHARMA Facility:[facility] Start: 09-07-2022 End: 09-08-[address] CONNOR ANAYA Facility:[facility] Start: 09-07-2022 Encounter for preprocedural laboratory examination DR LESVIA MCCLAIN [facility] Start: 09-05-2022 End: 09-05-2022 Patient encounter procedure Yehuda HASSAN [facility] Start: 09-01-2022 End: 09-02-[address] CONNOR ANAYA Facility:[facility] Start: 09-01-2022 End: 09-02-2022 Encounter for preprocedural laboratory examination DR CONNOR ANAYA Facility:[facility] Start: 08-31-2022 End: 09-01-[address] CONNOR ANAYA Facility:[facility] Start: 08-22-2022 Rx Renewal Connor nj Work Phone: [facility] 250 DO Work Phone: Start: 08-22-2022 End: 08-23-[address] CONNOR ANAYA Facility:[facility] Start: 08-17-2022 End: 08-18-[address] CONNOR ANAYA Facility:[facility] Start: 08-11-2022 End: 08-11-2022 Lab Drop off DORA Wu ADAMERY [facility] Start: 08-11-2022 End: 08-11-2022 Patient encounter procedure DORA Washburn INGE [facility] Start: 08-07-2022 End: 08-08-[address] WILLARD SHARMA Facility:[facility] Start: 08-01-2022 End: 08-02-[address] WILLARD SHARMA Facility:[facility] Start: 07-17-2022 End: 07-18-[address] WILLARD SHARMA Facility:[facility] Start: 07-12-2022 End: 07-13-[address] WILLARD SHARMA Facility:[facility] Start: 06-30-2022 End: 07-01-[address] WILLARD SHARMA Facility:[facility] Start: 06-30-2022 End: 06-30-2022 Patient encounter procedure Yehuda HASSAN [facility] Start: 06-26-2022 End: 06-27-[address] WILLARD SHARMA Facility:[facility] Start: 06-19-2022 End: 06-20-[address] WILLARD SHARMA Facility:[facility] Start: 06-13-2022 End: 06-14-[address] CONNOR ANAYA Facility:[facility] Start: 05-31-2022 End: 06-01-[address] CONNOR ANAYA Facility:[facility] Start: 05-26-2022 End: 05-27-[address] CONNOR ANAYA Facility:[facility] Start: 05-23-2022 End: 05-24-[address] CONNOR ANAYA Facility:[facility] Start: 05-05-2022 End: 05-06-2022 ambulatory DOCTOR MISC Facility:[facility] Start: 05-04-2022 End: 05-05-[address] WILLARD SHARMA Facility:[facility] Start: 05-03-2022 End: 05-04-2022 ambulatory DOCTOR [facility] Facility:[facility] Start: 04-26-2022 End: 04-27-[address] WILLARD SHARMA Facility:[facility] Start: 04-13-2022 End: 04-14-[address] WILLARD SHARMA Facility:[facility] Start: 03-22-2022 ambulatory Connor Anaya Facility: Start: 03-22-2022 Office outpatient vi sit 25 minutes Connor Anaya Work Phone: [facility] [employer] 250 DO Work Phone: Start: 03-22-2022 End: 03-23-[address] WILLARD SHARMA Facility:[facility] Start: 01-31-2022 ambulatory Connor Anaya Facility: Start: 12-07-2021 Rx Renewal Connor Marinelli Debbielo ng Work Phone: [facility] [employer] 250 DO Work Phone: Start: 08-16-2021 Office outpatient vi sit 15 minutes Connoreugenio Tavaresng Work Phone: [facility] [facility] Center[facility] [employer] 600 DO Work Phone: Imaging result normal Connor Joseph Butler urlong Work Phone: [facility] 250 DO Work Phone: Patient encounter status Connoreugenio Lewislong Work Phone: [facility] Center[facility], [employer] 600 DO Work Phone: Procedures Date Procedure Procedure Detail Performing Clinician Start: 09-02-2024 Arthrocentesis aspir &/inj major jt/bursa w/o Nany HO Work Phone: Start: 09-02-2024 Radiologic examinati on knee 1/2 views Nany HO Work Phone: Start: 08-18-2024 Adult depression scr eening assessment Connor Anaya DO Work Phone: Start: 08-05-2024 Mammography Connor paredes DO Work Phone: Start: 03-06-2024 ECG 12-LEAD NICK AARON Start: 03-06-2024 FOLLOW UP IN CARDIOLOGY NICK RICHARDSON Start: 03-06-2024 Ecg routine ecg w/le ast 12 lds w/i&r Nick Richardson MD Work Phone: Start: 02-18-2024 Follow-up visit Follow-up CONNOR ANAYA Start: 12-24-2023 ECG 12-LEAD NICK AARON Start: 07-26-2023 Mammography Nick Aaron MD Work Phone: Start: 09-05-2022 Cystoscopy Yehuda ANDRADE TERS Start: 11-30-2020 Cystoscopy Yehuda WA TERS Start: 07-14-2020 Cystoscopy Yehuda WA TERS Start: 07-08-2020 Cystoscopy Yehuda ANDRADE TERS Start: 07-17-2019 Extracorporeal shock wave lithotripsy of the bile duct Yehuda HASSAN Comment on above: Right Start: 10-29-2015 Gastric sleeve Yehuda HASSAN Arthroplasty of knee Connor Anaya Work Phone: Colonoscopy Connor marinelli Work Phone: Esophagogastrostomy, antesternal or antethoracic Connor Anaya Work Phone: H/O: hysterectomy Yehuda LUPE TERS Comment on above: Complete Hernia repair Connor Tavares ng Work Phone: Hysterectomy Connor marinelli Work Phone: Lithotripsy Connor marinelli Work Phone: Renal artery stent (physical object) Yehuda HASSAN Repair of ventral hernia Malgorzata HASSAN Plan of Treatment Date Care Activity Detail Author Start: 02-20-2033 DTaP,Tdap and Td Vaccines (6 - Td or Tdap) DTaP,Tdap and Td Vaccines (6 - Td or Tdap) [facility] Start: 02-20-2033 DTaP/Tdap/Td Vaccine s (3 - Td or Tdap) DTaP/Tdap/Td Vaccines (3 - Td or Tdap) [facility] Start: 12-13-2025 Screening for malignant neoplasm of colon Colon Cancer Screening 5 Year Sigmoidoscopy [facility] Comment on above: Postponed from 04/28 (Not Indicated) Start: 08-27-2025 End: 08-27-2025 Patient encounter procedure 08/27/2025 11:20 AM EDT Office Visit [place] [address] [place] [address] Carmen Lopez MD [address] [facility] [address] [place] [address] [facility] Start: 08-18-2025 Adult BMI Screening Adult BMI Screen ing [facility] Start: 08-18-2025 Depression Screening Depression Scre ening [facility] Start: 08-18-2025 Fall Risk Screening Fall Risk Screen ing [facility] Start: 08-18-2025 Tobacco Screening Tobacco Screening [facility] Start: 08-05-2025 Screening for malignant neoplasm of breast Mammogram [facility] Start: 03-25-2025 End: 03-25-2025 Patient encounter procedure 03/25/2025 1:00 PM EDT Office Visit [facility] [address] [place] [address] Jr. Lesvia Mcclain, DO [address] [facility] [address] [place] [address] [facility] Start: 02-17-2025 Adult BMI Follow Up Plan Adult BMI Follow Up Plan [facility] Start: 02-16-2025 End: 02-16-2025 Patient encounter procedure 02/16/2025 9:00 AM EDT [facility] [address] [place] [address] Connor Anaya, DO [address], [place] [address] [facility] Start: 11-04-2024 End: 11-04-2024 Patient encounter procedure 11/04/2024 11:00 AM EST Office Visit [facility] [address] [place] [id number] Jr. Lesvia Mcclain, DO [address] [facility] [address] [place] [address] [facility] Start: 09-11-2024 ambulatory Ambulatory Facility:C [id number] Start: 08-28-2024 End: 08-28-2024 Patient encounter procedure 08/28/2024 10:40 AM EDT Office Visit [address] [place] [id number] Carmen Lopze MD [address] [facility] [address] [place] [address] [facility] Start: 07-26-2024 Screening for malignant neoplasm of breast Mammogram [facility] Start: 06-29-2024 COVID-19 Vaccine ( season) COVID-19 Vaccine ( season) [facility] Start: 06-29-2024 COVID-19 Vaccine ( season) COVID-19 Vaccine ( season) [facility] Start: 06-29-2024 COVID-19 Vaccine ( season) COVID-19 Vaccine () [facility] Start: 06-29-2024 Influenza vaccination P [facility] Start: 06-21-2024 Medicare Annual Wellness Visit Medicare Annual Wellness Visit [facility] Start: 03-01-2024 COVID-19 Vaccine ( season) COVID-19 Vaccine ( season) [facility] Start: 01-29-2024 FUV, Provider: Nick Richardson, Status: Pen, Time: 11:20 AM FUV, Provider: Nick Richardson, Status: Pen, Time: 11:20 AM [facility] 250 DO Work Phone: Start: 12-06-2022 FUV, Provider: Nick Richardson, Status: Pen, Time: 1:10 PM FUV, Provider: Nick Richardson, Status: Pen, Time: 1:10 PM [facility] 250 DO Work Phone: Start: 01-31-2022 FUV, Provider: Nick Sarkar, Status: Pen, Time: 2:20 PM FUV, Provider: Nick Sarkar, Status: Pen, Time: 2:20 PM [facility] 250 DO Work Phone: Start: 2010 RSV High Risk: (Elderly (60+) or Population) (1 - Risk 60-74 years 1-dose series) RSV High Risk: (Elderly (60+) or Population) (1 - Risk 60-74 years 1-dose series) [facility] Start: 2010 RSV patient s and/or patients aged 60+ years (1 - 1-dose 60+ series) RSV patients and/or patients aged 60+ years (1 - 1-dose 60+ series) [facility] Start: 1968 Diabetes mellitus screening Diabetes Screening [facility] Start: 1968 Diabetic foot examination Diabetic Foot Exam [facility] Start: 1968 Hepatitis C screening Hepatitis C Sc reening [facility] Start: 1950 Glaucoma screening Diabetic Op hthalmology Exam [facility] Start: 1950 Lipid panel Lipid Panel [facility] Start: 1950 Medicare Annual Wellness Visit Medicare Annual Wellness Visit (AWV) [facility] Start: 1950 Screening for malignant neoplasm of colon [facility] Start: 1950 Screening for osteoporosis Bone Density Scan [facility] Start: 1950 Thyroid stimulating hormone measurement TSH Level [facility] Immunizations Immunization Date Immunization Notes Care Provider Fa cility 11-01-2023 Influenza, High-dose , Quadrivalent Connor Chaitanyang DO Work Phone: [facility] [employer] [facility] 11-01-2023 influenza virus vacc ine, unspecified formulation Connor LewisFileStringclem DO Work Phone: [facility] 02-20-2023 tetanus toxoid, redu mariano diphtheria toxoid, and acellular pertussis vaccine, adsorbed [employer] [facility] 10-15-2022 Fluzone High-Dose Quadrivalent 0.7 ML Intramuscular Suspension Prefilled Syringe Connoreugenio Anaya Work Phone: [facility] [employer] 250 DO Work Phone: 10-15-2022 influenza virus vacc ine, unspecified formulation Yehuda [employer] [facility] 10-15-2022 influenza, high dose seasonal, preservative-free Nick Richardson MD Work Phone: [facility] Work Phone: 04-29-2022 Comirnaty 30 MCG/0.3 ML Intramuscular Suspension Connor G Debbielong Work Phone: [facility] [employer] 250 DO Work Phone: 04-29-2022 COVID-19, mRNA, LNP- S, PF, 100mcg/0.5mL Dose Connor Anaya DO Work Phone: [facility] 04-29-2022 SARS-CoV-2 mRNA (ncvzzrxrzov-jegk-qcpyyo e) vaccine Yehuda HASSAN [facility] 09-08-2021 influenza virus vacc ine, unspecified formulation Yehuda HASSAN [facility] 08-29-2021 Fluzone High-Dose Quadrivalent 0.7 ML Intramuscular Suspension Prefilled Syringe Connor Anaya Work Phone: [facility] 250 DO Work Phone: 08-29-2021 influenza virus vacc ine, unspecified formulation Yehuda HASSAN [facility] 08-29-2021 influenza, high dose seasonal, preservative-free Nick Richardson MD Work Phone: [facility] Work Phone: 08-29-2021 Pfizer-BioNTech COVI D-19 Vacc 30 MCG/0.3ML Intramuscular Suspension Connor Anaya Work Phone: [facility] 12-23-2020 Pfizer-BioNTech COVI D-19 Vacc 30 MCG/0.3ML Intramuscular Suspension Connor Tavaresng Work Phone: [facility] 12-01-2020 Pfizer-BioNTech COVI D-19 Vacc 30 MCG/0.3ML Intramuscular Suspension Connor Lewisng Work Phone: [facility] 09-13-2020 pneumococcal polysaccharide vaccine, 23 valent Connor Debbieclem Work Phone: [facility] 09-03-2020 influenza virus vacc ine, unspecified formulation [employer] [facility] 09-03-2020 influenza, high dose seasonal, preservative-free Nick Richardson MD Work Phone: [facility] Work Phone: 09-03-2020 influenza, injectabl e, quadrivalent, contains preservative Connor G Furlong Work Phone: [facility] 600 DO Work Phone: 08-29-2020 influenza virus vacc ine, unspecified formulation [employer] [facility] 08-29-2020 influenza, high dose seasonal, preservative-free Connor G Furlong Work Phone: [facility] 250 DO Work Phone: 08-29-2020 influenza, injectabl e, quadrivalent, contains preservative Connor Furlong DO Work Phone: [facility] 08-29-2020 pneumococcal polysaccharide vaccine, 23 valent Connor G Furlong Work Phone: [facility] 08-11-2020 influenza virus vacc ine, unspecified formulation [employer] [facility] 08-11-2020 influenza, seasonal, injectable Connor G Furlong Work Phone: [facility] 600 DO Work Phone: 07-29-2020 influenza virus vacc ine, unspecified formulation [employer] [facility] 07-29-2020 influenza, seasonal, injectable Connor G Furlong Work Phone: [facility] 250 DO Work Phone: 09-02-2019 influenza virus vacc ine, unspecified formulation Yehuda HASSAN [facility] 09-02-2019 influenza, high dose seasonal, preservative-free Connor G Furlong Work Phone: [facility] 600 DO Work Phone: 08-29-2019 influenza virus vacc ine, unspecified formulation Connor G Furlong Work Phone: [facility] 08-29-2019 influenza, seasonal, injectable Connor Furlong DO Work Phone: [facility] 08-11-2019 influenza virus vacc ine, unspecified formulation Yehuda HASSAN [facility] 06-17-2019 zoster vaccine recombinant Connor G Furlong Work Phone: [facility] 05-29-2019 zoster vaccine recombinant Connor G Furlong Work Phone: [facility] 04-15-2019 zoster vaccine recombinant Connor G Furlong Work Phone: [facility] 03-29-2019 zoster vaccine recombinant Connor G Furlong Work Phone: [facility] 08-29-2018 influenza virus vacc ine, unspecified formulation Connor G Furlong Work Phone: [facility] 250 DO Work Phone: 09-27-2017 influenza virus vacc ine, unspecified formulation Yehuda HASSAN [facility] 09-27-2017 Influenza, injectabl e, Madin Ese Canine Kidney, preservative free, quadrivalent Connor G Furlong Work Phone: [facility] 600 DO Work Phone: 09-26-2017 influenza virus vacc ine, unspecified formulation Connor G Furlong Work Phone: [facility] 250 DO Work Phone: 10-19-2016 influenza virus vacc ine, unspecified formulation Yehuda HASSAN [facility] 10-19-2016 seasonal influenza, intradermal, preservative free Connor G Furlong Work Phone: [facility] 600 DO Work Phone: 10-06-2016 influenza virus vacc ine, unspecified formulation Yehuda HASSAN [facility] 10-06-2016 influenza, seasonal, injectable, preservative free Connor G Furlong Work Phone: [facility] 600 DO Work Phone: 04-10-2016 pneumococcal conjuga te vaccine, 13 valent Connor G Furlong Work Phone: [facility] 04-06-2016 pneumococcal conjuga te vaccine, 13 valent Yehudagerry HASSAN [facility] 08-07-2014 influenza virus vacc ine, unspecified formulation Connor G Furlong Work Phone: [facility] 250 DO Work Phone: 08-07-2014 Influenza, High-dose , Quadrivalent Connor Furlong DO Work Phone: [facility] 08-07-2014 influenza, unspecifi ed formulation Yehudagerry HASSAN [facility] 07-29-2014 influenza virus vacc ine, unspecified formulation Connor G Furlong Work Phone: [facility] 250 DO Work Phone: 07-29-2014 pneumococcal polysaccharide vaccine, 23 valent Connor Marinelli Furlong Work Phone: [facility] 10-02-2013 pneumococcal conjuga te vaccine, 13 valent Connor Marinelli Furlong Work Phone: [facility] 02-14-2013 zoster vaccine, live Connor Lewislong Work Phone: [facility] 10-29-2012 influenza virus vacc ine, unspecified formulation Connor Lewislong Work Phone: [facility] 250 DO Work Phone: 10-29-2012 pneumococcal polysaccharide vaccine, 23 valent Connor Marinelli Furlong Work Phone: [facility] 250 DO Work Phone: 10-29-2010 pneumococcal polysaccharide vaccine, 23 valent Nick Richardson MD Work Phone: [facility] Work Phone: 02-21-2010 pneumococcal polysaccharide vaccine, 23 valent Connor Marinelli Furlong Work Phone: [facility] 02-21-2010 tetanus toxoid, redu mariano diphtheria toxoid, and acellular pertussis vaccine, adsorbed Connor Lewisng Work Phone: [facility] 12-20-2009 novel influenza-H1N1 -09, preservative-free, injectable Connor Lewislong Work Phone: [facility] 600 DO Work Phone: 11-29-2009 novel influenza-H1N1 -09, preservative-free, injectable Connor Lewislong Work Phone: [facility] DO Work Phone: 09-06-1999 TD(adult) unspecifie d formulation; Translations: [Td(adult) unspecified formulation] Connor Anaya Work Phone: [facility] 09-06-1999 tetanus and diphther ia toxoids, adsorbed, preservative free, for adult use (2 Lf of tetanus toxoid and 2 Lf of diphtheria toxoid) Connor Anaya DO Work Phone: [facility] influenza virus vacc ine, unspecified formulation Connor Anaya Work Phone: [facility] [employer] DO Work Phone: Comment on above: 2010Jul 2012 pneumococcal polysaccharide vaccine, 23 valent Connor T[employer] Work Phone: [facility] [employer] DO Work Phone: Comment on above: 2010 Payers Date Payer Category Payer Private Health Insurance [facility] [id number] 5 2015 Managed Care Other (unspecified) [facility] [id number] 2015 Medicare [id number] 2015 Miscellaneous or Other [facility] [id number] 5 2015 Unknown 2015 Unknown [id number] 1959 Medicare [id number] 1959 Unknown [id number] 1950 Unknown [id number] 2.16840.1.852544.3.579 .2.356 1950 Unknown [id number] 2.16840.1.933473.3.579 .2.356 1950 Unknown [id number] 2.16.840.1.554921.3.579 .2.356 1950 Unknown [id number] 2.16.840.1.943565.3.579 .2.593 1950 Unknown [id number] 2.16.840.1.503779.3.579 .2.593 1950 Unknown [id number] 2.16.840.1.592886.3.579 .2.593 1950 Unknown [id number] 2.16.840.1.545082.3.579 .2.593 1950 Unknown [id number] 2.16.840.1.071178.3.579 .2.593 1950 Unknown [id number] 2.16.840.1.700092.3.579 .2.593 1950 Unknown [id number] 2.16.840.1.821377.3.579 .2.593 1950 Unknown [id number] 2.16.840.1.217488.3.579 .2.593 1950 Unknown [id number] 2.16.840.1.052010.3.579 .2.593 1950 Unknown [id number] 2.16.840.1.229411.3.579 .2.593 1950 Unknown [id number] 2.16840.1.408166.3.579 .2.593 1950 Unknown [id number] 2.16.840.1.485621.3.579 .2.593 1950 Unknown [id number] 2.16.840.1.479035.3.579 .2.593 1950 Unknown [id number] 2.16.840.1.541257.3.579 .2.593 1950 Unknown [id number] 2.16.840.1.210945.3.579 .2.593 1950 Unknown [id number] 2.16.840.1.744169.3.579 .2.593 1950 Unknown [id number] 2.16.840.1.460098.3.579 .2.593 1950 Unknown [id number] 2.16.840.1.400238.3.579 .2.593 1950 Unknown [id number] 2.16.840.1.702386.3.579 .2.593 1950 Unknown [id number] 2.16.840.1.488652.3.579 .2.593 1950 Unknown [id number] 2.16.840.1.477623.3.579 .2.593 1950 Unknown [id number] 2.16.840.1.746538.3.579 .2.593 1950 Unknown [id number] 2.16.840.1.823785.3.579 .2.593 1950 Unknown [id number] 2.16.840.1.792589.3.579 .2.593 1950 Unknown [id number] 2.16.840.1.734997.3.579 .2.593 1950 Unknown [id number] 2.16.840.1.118311.3.579 .2.593 1950 Unknown [id number] 2.16.840.1.922526.3.579 .2.593 1950 Unknown [id number] 2.16.840.1.371704.3.579 .2.593 1950 Unknown [id number] 2.16.840.1.414722.3.579 .2.593 1950 Unknown [id number] 2.16.840.1.729150.3.579 .2.593 1950 Unknown [id number] 2.16.840.1.497958.3.579 .2.593 1950 Unknown [id number] 2.16.840.1.241040.3.579 .2.593 1950 Unknown [id number] 2.16.840.1.699458.3.579 .2.593 1950 Unknown [id number] 2.16.840.1.513413.3.579 .2.593 1950 Unknown [id number] 2.16.840.1.412947.3.579 .2.593 1950 Unknown [id number] 2.16.840.1.453482.3.579 .2. 1950 Unknown [id number] 2.16.840.1.440117.3.579 .2. 1950 Unknown [id number] 2.16.840.1.549146.3.579 .2. 1950 Unknown [id number] 2.16.840.1.096167.3.579 .2. 1950 Unknown [id number] 2.16.840.1.951244.3.579 .2. 1950 Unknown [id number] 2.16.840.1.653539.3.579 .2. 1950 Unknown [id number] 2.16.840.1.209369.3.579 .2 1950 Unknown [id number] 2.16.840.1.917929.3.579 .2. 1950 Unknown [id number] 2.16.840.1.602146.3.579 .2. 1950 Unknown [id number] 2.16.840.1.301304.3.579 .2.1285 1950 Unknown [id number] 2.16.840.1.208034.3.579 .2.1285 1950 Unknown [id number] 2.16.840.1.783047.3.579 .2.1285 1950 Unknown [id number] 2.16.840.1.824381.3.579 .2.1285 1950 Unknown [id number] 2.16.840.1.477680.3.579 .2. 1950 Unknown [id number] 2.16.840.1.368659.3.579 .2. 1950 Unknown [id number] 2.16.840.1.109099.3.579 .2.1244 1950 Unknown [id number] 2.16.840.1.981499.3.579 .2.1244 1950 Unknown [id number] 2.16.840.1.806204.3.579 .2.1244 1950 Unknown [id number] 2.16.840.1.230127.3.579 .2.1259 1950 Unknown [id number] 2.16.840.1.633382.3.579 .2.1259 1950 Unknown [id number] 2.16.840.1.077558.3.579 .2.1259 1950 Unknown [id number] 2.16.840.1.711420.3.579 .2.1259 Social History Date Type Detail Facility Start: 02-20-2023 End: 03-06-2024 Never a smoker Never a smoker [facility] 600 DO Work Phone: Start: 12-28-2021 End: 11-13-2022 Tobacco smoking status Never smoked tobacco (finding) [facility] Tobacco smoking status Never [facility] Start: 02-20-2023 End: 03-06-2024 Sex Assigned At Female [facility] Start: 11-13-2022 End: 08-17-2023 Tobacco use and exposure Smokeless tobacco non-user [facility] Work Phone: Start: 03-06-2024 Alcoholic beverage intake Life time non-drinker (finding) [facility] Work Phone: Start: 1950 Sex assigned at Not on file [facility] Work Phone: Start: 02-25-2024 End: 08-28-2024 Exposure to SARS-CoV-2 (event) Not sure [facility] Start: 08-18-2024 Alcoholic beverage intake Ex-drinker (finding) [facility] Do you belong to any clubs or organizations such as restoration groups, unions, fraternal or athletic groups, or school groups? No [facility] Are you now , , , , never or living with a partner? [facility] How often to you hav e a drink containing alcohol? Never [facility] Do you feel stress - tense, restless, nervous, or anxious, or unable to sleep at night because your mind is troubled all the time - these days [OSQ] Only a little [facility] Start: 06-02-2015 Sex Female (finding) [facility] Functional Status Date Assessment Result Facility 08-24-2022 Functional Status N/A [facility] 06-30-2022 Functional Status N/A [facility] Clinical Notes 06-30-2022 to 09-03-2024 Connor Anaya DO - 09/03/2024 4:51 PM VIC Pearson - 09/02/2024 1:45 PM ESTTelephone Encounter - Isa Triana CMA - 09/02/2024 12:07 PM ESTPatient InstructionsPatient Instructions Note Date & Type Note Facility 09-03-2024 History of Present illness Narrative Patient has severe OA of the knee. Handicap parking placard printed documented in this encounter [facility] 09-02-2024 History of Present illness Narrative Associated Order(s): L Inj/Asp: R knee Post-Procedure Diagnose(s): Arthritis of right knee; Chondromalacia, patella, right Images from the original note were not included. HISTORY OF PRESENT ILLNESS: EST PT Miky Fuentes is an 74 y.o. @ female. (EST PT; MOST RECENT VISIT WITH DR MCCLAIN) RECHECK (R) KNEE - NOTES INCREASE PAIN ~10DAYS- PT STATES SYMPTOMS STARTED AFTER SHE WAS STANDING FOR A LONG TIME AT HER SISTERS ; STATES HER KNEE DID GIVE OUT XRAY RT KNEE TODAY EPIC 09/02/24 XRAYS 03/26/24 IN [facility] NO MRI NO MDP / PREDNISONE S/P CORTISONE INJ 01/15/19, 02/11/18 NO VISCO NO PHYSICAL THERAPY NO PAIN MGMT PAIN LATERAL ASPECT- FEELS LIKE KNEE GOES OUT OF PLACE- MINIMAL SWELLING- +STIFFNESS WITH PROLONG SITTING- SOME LOCKING- +TYLENOL TAKING XARELTO ; H/O A-FIB PREVIOUS (L) TKA 11/08/17 - DR MCCLAIN ALLERGIES: Allergies Allergen Reactions Ciprofloxacin Rash and Unknown Sulfa Antibiotics Rash and Unknown HOME MEDICATIONS: Current Outpatient Medications Medication Instructions allopurinol (ZYLOPRIM) 300 mg, Oral, Daily cholecalciferol (VITAMIN D-[address]) 25 mcg, Oral, 2 times daily dronedarone (MULTAQ) 400 mg, Oral, As needed fexofenadine (HANNAH) 180 mg, Oral, Daily RT levothyroxine (SYNTHROID, LEVOXYL) 137 mcg, Oral, Every morning lisinopril 2.5 mg, Oral, Daily lovastatin (MEVACOR) 10 mg, Oral, Daily RT Multiple Vitamins-Minerals (CENTRUM SILVER ADULT 50+ PO) as directed Orally [place]-3 Fatty Acids (OMEGA-3 FISH OIL PO) Oral potassium bicarbonate (Effer-K) 25 MEQ effervescent tablet 25 mEq, Oral Xarelto 20 mg, Oral, Daily PHYSICAL EXAM: Knee Musculoskeletal Exam Gait Antalgic: right Limp: right Inspection Leg length disparity: no discrepancy Right Erythema: none Effusion: mild Edema: none Ecchymosis: none Deformity: none Alignment: varus Palpation Right Right knee palpation is unremarkable. Increased warmth: none Masses: none Crepitus: patellofemoral and medial Tenderness: present Patella: moderate Range of Motion Right Right knee range of motion is normal and full. Active extension: 0 Passive extension: 0 Active flexion: 115 Passive flexion: 120 Strength Right Right knee strength is normal. Extension: 5/5. Extension is affected by pain. Flexion: 5/5. Flexion is not affected by pain. Instability Right Instability signs: none - stable Anterior drawer: normal Neurovascular Right Right knee neurovascular exam is normal. Pulses - PT: normal Posterior tibial: 2+ Capillary refill: warm and well-perfused Special Signs Right Right knee special signs are normal. Straight leg raise: normal Patellar compression: mild Patellar apprehension: mild General Constitutional: appears stated age Labored breathing: no Psychiatric: normal mood and affect Neurological: alert Skin: intact Lymphadenopathy: none Vitals: There is no height or weight on file to calculate BMI. Tobacco Use: Low Risk (09/02/2024) Patient History Smoking Tobacco Use: Never Smokeless Tobacco Use: Never Passive Exposure: Not on file Alcohol Use: Not At Risk (02/20/2023) Received from [facility], [facility] Frequency of Alcohol Consumption: Never Average Number of Drinks: Patient does not drink Frequency of Binge Drinking: Never IMAGING: L Inj/Asp: R knee on 09/02/2024 2:14 PM Indications: pain Details: 22 G needle, anterolateral approach Medications: 40 mg methylPREDNISolone acetate 40 MG/ML; 1 mL bupivacaine PF 0.5 % Outcome: tolerated well, no immediate complications E UTILIZING ASEPTIC TECHNIQUE PT GIVEN INJECTION IN RIGHT KNEE, NEUROVASC INTACT S/P INJ, TOLERATED WELL Procedure, treatment alternatives, risks and benefits explained, specific risks discussed. Consent was given by the patient. Orders Placed This Encounter Procedures L Inj/Asp This order was created via procedure documentation XR knee 1 or 2 views right Order Specific Question: Reason for exam: Answer: PAIN ASSESSMENT: ICD-10-CM 1. Arthritis of right knee M17.11 2. Acute pain of right knee M25.561 XR knee 1 or 2 views right 3. 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 Mcclain in 2 months s/p IA injection.. consider need for TKA vs cont obs with possible Stem/ augment if further wear. Discussed experience with prior injection.. pt has had other injection without incident or reaction.. pt declines oral steroid, would like to trial injection for likely patellafemoral arthritis. Pt declines thought of replacement over next 3 months.. Pt likely exacerbated knee with prolonged standing at sister . Recommend ice/ activity modifications. Denies pain to medial joint line, despite crepitus. Questions answered in laymen terms at the bedside. The diagnosis, home exercise plan and any ongoing restrictions/ recommendations reviewed. If unable to be reached in office, I recommend evaluation at nearest Emergency Room if any symptoms worsened or new symptoms develop for requiring urgent evaluation. documented in this encounter [facility] 09-02-2024 Miscellaneous Notes Patient called to renew her handicap placard. Can you please get this ready for patient to pharmacy picking technician. Okay, it is ready documented in this encounter [facility] 09-02-2024 Telephone encounter Note Patient called to renew her handicap placard. Can you please get this ready for patient to pharmacy picking technician. [facility] 09-02-2024 Telephone encounter Note Okay, it is ready [facility] 08-28-2024 History of Present illness Narrative Lincoln Fuentes is a 74 y.o. female Chief Complaint Follow-up HPI 74-year-old white female who has previously followed with Dr. Richardson. She has history of paroxysmal atrial fibrillation which has been treated with Xarelto and as needed Multaq. The frequency of atrial fibrillation is very low. She rarely utilizes Multaq for breakthrough events. She has had no previous TIAs or strokes and has no bleeding complications. She has hyperlipidemia on medical therapy which has been under control. She does have class II obesity despite having previous bariatric surgery. She had an echocardiogram back in 2014 which revealed ejection fraction of 50-55%. The left atrium was 4.1 cm in diameter. There is no significant valvular disease. No follow-up studies have been done and the patient has remained asymptomatic with no indication of heart failure. She seemed to have done well on her medical therapy without any side effects. She follow-up with her PCP on regular basis. Apart from class II obesity physical examination was remarkable for bradycardia heart rate 56 bpm. Assessment/recommendations: 1-paroxysmal atrial fibrillation. The load is very low and the patient is only taking Xarelto which has been well-tolerated. She has prescription for Multaq that she uses rarely for breakthrough events. No change in medical therapy was recommended. 2-history of borderline LV systolic dysfunction based on echocardiogram 2014, ejection fraction 50-55%, she is asymptomatic and no further testing is needed 3-hyperlipidemia managed with lovastatin by PCP and seems to be under control 4-high risk medication with Xarelto without bleeding complications 5-asymptomatic sinus bradycardia due to sinus node dysfunction, no action is needed 6- class II obesity, patient status post remote bariatric surgery, low-calorie diet was recommended and maintaining active lifestyle Review of Systems Cardiovascular: Positive for irregular heartbeat and palpitations. All other systems reviewed and are negative. Vitals: 08/28/24 1039 BP: 122/56 BP Location: Left arm Patient Position: Sitting Pulse: 56 Weight: 96.2 kg (212 lb) Height: 1.651 m (5' 5 ) Objective Physical Exam Constitutional: Appearance: Normal appearance. [...] daily., Disp: , Rfl: levothyroxine (Synthroid, Levoxyl) 125 mcg tablet, Take 1 tablet (125 mcg) by mouth early in the morning.. Take on an empty stomach at the same time each day, either 30 to 60 minutes prior to breakfast, Disp: , Rfl: lisinopril 2.5 mg tablet, Take 1 tablet (2.5 mg) by mouth once daily., Disp: 90 tablet, Rfl: 3 lovastatin (Mevacor) 10 mg tablet, Take 1 tablet (10 mg) by mouth once daily., Disp: 90 tablet, Rfl: 3 qlhoasjz-ajm-lmvt-FA-vit K-lut (Centrum Silver Women) 8 mg iron-400 mcg-50 mcg tablet, Take 1 tablet by mouth once daily., Disp: , Rfl: omega-3 fatty acids-fish oil (One-Per-Day [place]-3) 684-1,200 mg capsule, Take 1 capsule (1,200 mg) by mouth once daily., Disp: , Rfl: potassium bicarbonate (K-Lyte) 25 mEq effervescent tablet, Take 1 tablet (25 mEq) by mouth 2 times a day., Disp: , Rfl: rivaroxaban (Xarelto) 20 mg tablet, Take 1 tablet (20 mg) by mouth once daily., Disp: 90 tablet, Rfl: 3 Assessment/Plan 1. Paroxysmal atrial fibrillation (Multi) Follow Up In Cardiology 2. Non-ischemic cardiomyopathy (Multi) Follow Up In Cardiology 3. Mixed hyperlipidemia 4. Sinus bradycardia 5. High risk medication use 6. Class 2 obesity 7. BMI 35.0-35.9,adult 8. Never smoked tobacco Scribe Attestation By signing my name below, I, Hollie Walden LPN, Scribe attest that this documentation has been prepared under the direction and in the presence of Carmen Lopez MD. Provider Attestation - Scribe documentation All medical record entries made by the Scribe were at my direction and personally dictated by me. I have reviewed the chart and agree that the record accurately reflects my personal performance of the history, physical exam, discussion and plan. documented in this encounter [facility] Work Phone: 08-28-2024 Instructions Hollie Gleason LPN - 08/28/2024 10:40 AM EDT Please bring all medicines, vitamins, and herbal supplements with you when you come to the office. Prescriptions will not be filled unless you are compliant with your follow up appointments or have a follow up appointment scheduled as per instruction of your physician. Refills should be requested at the time of your visit. BMI was above normal measurement. Current weight: 96.2 kg (212 lb) Weight change since last visit (-) denotes wt loss -9 lbs Weight loss needed to achieve BMI 25: 62.1 Lbs Weight loss needed to achieve BMI 30: 32.1 Lbs Provided instructions on dietary changes Provided instructions on exercise. Follow up 7 months documented in this encounter [facility] Work Phone: 08-18-2024 History of Present illness Narrative Subjective Patient ID: Miky Fuentes is a 74 y.o. female. Miky presents for a CV recheck. She has no new problems to report. She does have right knee arthritis and is bone on bone in the medial compartment. She does have a couple episodes where her knee will lock up. She has not fallen. It does not swell and she denies any significant pain. Follow-up Associated symptoms include arthralgias. The following portions of the patient's history were reviewed and updated as appropriate: allergies, current medications, past family history, past medical history, past social history, past surgical history, problem list, and medication reconciliation was completed including current medication and post discharge medication. Review of Systems Constitutional: Negative. HENT: Negative. Eyes: Negative. Respiratory: Negative. Cardiovascular: Negative. Gastrointestinal: Negative. Endocrine: Negative. Genitourinary: Negative. Musculoskeletal: Positive for arthralgias. Skin: Negative. Allergic/Immunologic: Negative. Neurological: Negative. Hematological: Negative. Psychiatric/Behavioral: Negative. Objective Physical Exam Constitutional: General: She is not in acute distress. Appearance: She is obese. HENT: Head: Normocephalic. Eyes: General: No scleral icterus. Extraocular Movements: Extraocular movements intact. Conjunctiva/sclera: Conjunctivae normal. Cardiovascular: Rate and Rhythm: Normal rate and regular rhythm. Pulses: Normal pulses. Heart sounds: Normal heart sounds. No murmur heard. Pulmonary: Effort: Pulmonary effort is normal. No respiratory distress. Breath sounds: Normal breath sounds. No wheezing, rhonchi or rales. Abdominal: General: Bowel sounds are normal. Palpations: Abdomen is soft. Tenderness: There is no abdominal tenderness. Musculoskeletal: Cervical back: Neck supple. Right knee: No swelling, effusion or crepitus. Decreased range of motion. No tenderness. Comments: Her knee exam was essentially normal although I did not test any ligaments her cartilage. Lymphadenopathy: Cervical: No cervical adenopathy. Neurological: General: No focal deficit present. Mental Status: She is alert and oriented to person, place, and time. Psychiatric: Attention and Perception: Attention and perception normal. Mood and Affect: Mood and affect normal. Speech: Speech normal. Behavior: Behavior normal. Behavior is cooperative. Thought Content: Thought content normal. Judgment: Judgment normal. Assessment/Plan Miky was seen today for follow-up. Diagnoses and all orders for this visit: Primary hypertension - Comprehensive metabolic panel; Future Blood pressure at goal. Check CMP Hyperlipidemia, unspecified hyperlipidemia type - Lipid panel; Future Check lipid panel Acquired hypothyroidism - Thyroid profile includes TSH FT4; Future Check TSH and T4. Osteoarthritis of multiple joints, unspecified osteoarthritis type I suspect it is just arthritis causing the locking of her knee. Follow up with ortho. Can try bracing. 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 She would benefit from weight loss. Diet exercise and weight loss discussed. She is unable to do much exercise due to knee pain. She has gradually lost weight documented in this encounter [facility] 07-29-2024 Evaluation + Plan note Diagnostic Tests PendingUroVysion Fish and Urine Cyto ([facility]) 07/29/24 [facility] 07-15-2024 Note Patient Education Urology Kidney Stones [...] these instructions at home: Medicines ? Take wguz-skc-hjeatbx and prescription medicines only as told by [...] provider. Document Revised: 06/08/2023 Document Reviewed: 06/08/2023 [employer] Patient Education ? 2023 [employer] Hematuria, Adult Hematuria is blood in [...] identify the cause (more content not included)... [facility] 03-06-2024 History of Present illness Narrative Subjective [...] once daily., Disp: 90 tablet, Rfl: 3 glxwvang-vcd-jzdj-FA-vit K-lut (Centrum Silver Women) 8 mg iron-400 mcg-50 mcg tablet, Take 1 tablet by mouth once daily., Disp: , Rfl: omega-3 fatty acids-fish oil (One-Per-Day [place]-3) 684-1,200 mg capsule, Take 1 capsule (1,200 [...] direction and in the presence of Nick Richardson MD. Provider Attestation - Scribe documentation All medical record entries made by the Scribe were at my direction and personally dictated by me. I have reviewed the chart and agree that the record accurately reflects my personal performance of the history, physical exam, discussion and plan. documented in this encounter [facility] Work Phone: 03-06-2024 Instructions Ivett Mcpherson [...] of your visit. documented in this encounter [facility] Work Phone: 09-05-2022 Hospital Discharge instructions [...] degrees. Follow Up Care 08/22/2022 14:01:27 With:Yehuda HASSAN Address: [facility] [address] [place] [address]- Business (1) When:03/05/2023 12:06:31 [facility] 06-30-2022 Hospital Discharge instructions Patient Education 06/30/2022 12:01:44 Kidney Stones, Zssb-tf-Hygs Kidney Stones Kidney stones are rock-like masses [...] Follow these instructions at home: Medicines Take vayv-nvn-wrtnvrt and prescription medicines only as told by [...] 04/02/2009 Document Revised: 03/02/2020 Document Reviewed: 03/02/2020 [employer] Patient Education 2020 [employer] Follow Up Care 12/28/2021 15:15:51 With:Yehuda HASSAN MD, URL Address: [address] [place] [address]- When: Unknown [facility] Evaluation + Plan note Future Appointments Appointment Date:03/02/2023 11:00:00 AM Scheduled Provider:Yehuda HASSAN MD Location:[facility] Appointment Type:URO Office Visit [facility] Evaluation + Plan note Future Appointments Appointment Date:03/02/2023 11:00:00 AM Scheduled Provider:Yehuda HASSAN MD Location:[facility] Appointment Type:URO Office Visit Diagnostic Tests PendingUrine Culture 08/11/22 [facility] Evaluation + Plan note Future Appointments Appointment Date:03/02/2023 11:00:00 AM Scheduled Provider:Yehuda HASSAN MD Location:[facility] Appointment Type:URO Office Visit Diagnostic Tests PendingUroVysion Fish and Urine Cyto ([facility]) 09/05/22 [facility] Evaluation + Plan note Future Appointments Appointment Date:05/16/2024 10:45:00 AM Scheduled Provider:Yehuda HASSAN MD Location:[facility] Appointment Type:URO Office Visit [facility] Evaluation + Plan note Future Appointments Appointment Date:05/20/2024 11:00:00 AM Scheduled Provider:RAAD Back APRN, [place] X Location:[facility] Appointment Type:URO Office Visit [facility] Evaluation + Plan note Future Appointments Appointment Date:06/10/2024 03:00:00 PM Scheduled Provider:RAAD Back APRN, [place] X Location:[facility] Appointment Type:URO Office Visit [facility] Evaluation + Plan note Future Appointments Appointment Date:07/01/2024 02:30:00 PM Scheduled Provider:RAAD Back APRN, [place] X Location:[facility] Appointment Type:URO Office Visit [facility] Evaluation note Diagnosis Mixed hyperlipidemia- Primary Paroxysmal atrial fibrillation (Multi) Atrial fibrillation Non-ischemic cardiomyopathy (Multi) Other primary cardiomyopathies Never smoked tobacco BMI 36.0-36.9,adult Hyperlipidemia, unspecified hyperlipidemia type documented in this encounter [facility] Work Phone: Evaluation note* Diagnosis Primary hypertension- Primary Unspecified essential hypertension Hyperlipidemia, unspecified hyperlipidemia type Acquired hypothyroidism Unspecified hypothyroidism Osteoarthritis of multiple joints, unspecified osteoarthritis type 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 and body mass index (BMI) of 36.0 to 36.9 in adult documented in this encounter [facility]* Diagnosis Paroxysmal atrial fibrillation (Multi)- Primary Atrial fibrillation Non-ischemic cardiomyopathy (Multi) Other primary cardiomyopathies Mixed hyperlipidemia Sinus bradycardia Other specified cardiac dysrhythmias High risk medication use Class 2 obesity BMI 35.0-35.9,adult Never smoked tobacco documented in this encounter [facility] Work Phone: Evaluation note* Diagnosis Arthritis of right knee- Primary Acute pain of right knee Chondromalacia, patella, right [facility] Present illness NarrativePatient returns in follow-up of problems as noted. In the interim she is done well. She has none ofthe symptoms of cardiomyopathy that preceded her original diagnosis of heart failure. With guideline directed therapy in the baptism of maintenance of sinus rhythm her symptoms [...] merits of diet exercise and weight loss. -[facility] [address] DO Work Phone: History of [...] the merits of diet and weight loss. [facility] [address] DO Work Phone: Hospital course Narrative No data available for this section [facility] Hospital Discharge instructions No data available for this section [facility] InstructionsNot on filedocumented in this encounter [facility] SystemInstructionsNot on filedocumented in this encounter [facility] SystemInstructionsNot on filedocumented in this encounter [facility] [employer] note No data available for this section [facility] Chief Complaint * I am doing [...] fibrillation (Multi) Procedures ECG 12 Lead Nick Richardson MD [address] [facility] [address] [place] [address] Referral ID Status Reason Start Date Expiration Date V isits Requested Visits Authorized [id number] Authorized 03/06/2024 03/06/2025 1 1 Specialty Diagnoses / Procedures Referred By Contac t Referred To Contact Cardiology Diagnoses Non-ischemic cardiomyopathy (Multi) Procedures Follow Up In Cardiology Nick Richardson MD [address] [facility] [place] [address] Carmen Lopez MD [address] [facility] [address] [place] [address] Referral ID Status Reason Start Date Expiration Date V isits Requested Visits Authorized [id number] Authorized 03/06/2024 03/06/2025 1 1 Additional Source Comments INFORMATION SOURCE (unrecogn ized section and content) DATE CREATED AUTHOR 06/26/2022 [facility] DATE CREATED AUTHOR AUTHOR'S ORGANIZ ATION 12/07/2022 [facility] DATE CREATED AUTHOR AUTHOR'S ORGANIZ ATION 12/07/2022 [employer] DATE CREATED AUTHOR AUTHOR'S ORGANIZ ATION 03/09/2023 [facility] DATE CREATED AUTHOR AUTHOR'S ORGANIZ ATION 07/17/2024 [employer] [facility] DATE CREATED AUTHOR AUTHOR'S ORGANIZ ATION 08/07/2024 [facility] DATE CREATED AUTHOR AUTHOR'S ORGANIZ ATION 08/19/2024 [facility] DATE CREATED AUTHOR AUTHOR'S ORGANIZ ATION 08/20/2024 [facility] DATE CREATED AUTHOR AUTHOR'S ORGANIZ ATION 08/26/2024 Yuan Aguirre [facility] DATE CREATED AUTHOR AUTHOR'S ORGANIZ ATION 08/30/2024 [facility] DATE CREATED AUTHOR AUTHOR'S ORGANIZ ATION 09/08/2024 [facility] Care Team (unrecognized sect ion and content) 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 Specialty Start Date End Date Connor Anaya DO [address], [place] [address] PCP - General 10/29/19 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 Specialty Start Date End Date Connor Anaya DO [address], [place] [address] PCP - General Family Medicine 11/13/22 Desiree Jansen [facility] Nurse - [employer] 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 Specialty Start Date End Date Connor Anaya DO [address], [place] [address] PCP - General Family Medicine 11/13/22 Desiree Jansen [facility] Nurse - [employer] 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 Start Date End Date Connor Anaya DO [address], [place] [address] PCP - General Family Medicine 11/13/22 Desiree Jansen 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 - [employer] 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 Specialty Start Date End Date Connor Anaya DO PCP - General 10/29/19 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 Specialty Start Date End Date Connor Anaya MD [address], [place] [address] PCP - General Family Medicine 03/26/24 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 Specialty Start Date End Date Connor Anaya MD [address], [place] [address] PCP - General Family Medicine 03/26/24 Reason for Visit (unrecogniz ed section and content) Reason Comments Follow-up 2mo Specialty Diagnoses / Procedures Referred By Contac t Referred To Contact Cardiology Diagnoses Paroxysmal atrial fibrillation (Multi) Procedures Follow Up In Cardiology Nick Richardson MD [address] [place] [address] [address], [address] [address] Referral ID Status Reason Start Date Expiration Date V isits Requested Visits Authorized [id number] Authorized 12/24/2023 12/23/2024 1 1 Reason Comments Follow-up Reason Comments Follow-up 5m Specialty Diagnoses / Procedures Referred By Contac t Referred To Contact Cardiology Diagnoses Non-ischemic cardiomyopathy (Multi) Procedures Follow Up In Cardiology Nick Richardson MD Ibrahim, Hassan M, MD [address] [place] [address] [address], [address] [address] Phone: tel: fax: Referral ID Status Reason Start Date Expiration Date V isits Requested Visits Authorized [id number] Authorized 03/06/2024 03/06/2025 1 1 Reason Comments Pain FOR RECORDS PERTAINING TO PATIENTS WHO ARE [...] BE BASED ON THE PRIMARY CLINICAL RECORDS. [facility] [place]. provides no warranty or guarantee of the accuracy or completeness of information in this document.
[2024-09-11] MEDS: LACTATED RINGER'S SOLUTION 1,000 ML 50 ML IV ×2 (07:48→09:33)
[2024-09-11] MEDS: CEFAZOLIN SODIUM 2 GM/50 ML D5W PREMIX IV (07:50)
--- NOTE | 2024-09-11 09:44 | P.URON_ITS ---
Urology Surgery Operative Note Operative Note Procedure Date: 09/11/24 Time Out Performed: yes Pre-op Diagnosis: Right nephrolithiasis and gross hematuria Post-op Diagnosis: same as pre-op Procedures performed: 1. Cystoscopy. 2. Right ureteroscopy. 3. Right pyeloscopy. 4. Thulium laser lithotripsy of multiple right renal calculi 3 cm. 5. Placement of 6 Croatian variable length right ureteral stent Anesthesia: RYAN Primary Surgeon: Sy Avitia Complications: None Estimated blood loss (mL): 5 Findings: Multiple large right renal calculi at least 3 cm in total burden in size Specimens: None Drains: 6 Croatian variable length right ureteral stent Indications for Procedures: This lady has a history of recurrent nephrolithiasis. She has had gross hematuria intermittently but no pain. Upper tract imaging revealed a few centimeters of right renal calculi. She now presents for ureteroscopic stone manipulation and probable right stent placement. She has signed an informed consent after all risks were explained. Detailed description of Procedure: The patient was brought to the operating room and placed on the operating room table in the supine position. SCDs were placed on the lower extremities and turned on and functioning during the entire case. Timeout was done by all parties in the room. We all agreed upon the patient's identification and the planned procedures for this patient. Genn. anesthesia was then administered. The patient was then repositioned into the modified dorsal lithotomy position. All pressure points were satisfactorily padded. Genitalia were sterilely prepped and draped in usual fashion. The patient began to have runs of bradycardia and PVCs. We were just about to cancel the procedure and wake her up but then everything normalized. We then proceeded with the procedure. I started by passing a 22 Croatian Olympus cystoscope per urethra and into the bladder. Careful panendoscopy revealed no evidence of any tumors stones or lesions. While using fluoroscopy I could not easily see her stones in the right kidney. I passed a Glidewire through the scope and up the right ureter into the kidney. The scope was removed. I then passed a 10/12 ureteral access sheath over the wire and up the ureter to the L5 position. The wire and stylette were removed. I then passed a flexible ureteroscope through the access sheath and into the ureter. I ascended up the ureter and then went into the kidney. I evaluated all compartments of the kidney in the upper mid and lower poles. I found a tiny stone in the upper pole. There were a couple large stones in the midpole and 2 large stones in the lower pole. I started in the upper pole and used a 200 A ngstrom laser fiber. With the thulium laser at 6 W continuously on the dusting mode I dusted that stone quickly. I then went in the midpole calyces and dusted those 2 sizable stones. I then went into the lowermost calyx and was able to get to the additional 2 large stones. I had to turn the power up to montoya in order to fragment these. I used the dusting mode and was able to entirely dusted them. Of note is that she had intermittent bradycardia runs. There was 1 short run of V. tach with 4 beats. At this time the procedure was completed. I removed the ureteroscope and then slid a Glidewire through the sheath up into the kidney and remove the sheath. The cystoscope was backloaded over the wire and passed into the bladder. I then slid a 6 Croatian variable length stent over the wire up to the kidney and the wire was removed. There were good curls in the kidney and in the bladder. The bladder was drained of its contents and the scope was then removed. The anesthetic was then reversed. She was then transferred to a [facility] bed and wheeled to PACU in stable condition. She will be evaluated by cardiology before she will be allowed to go home. She will have a prescription for Keflex 500 mg twice daily for a week and Myrbetriq 50 mg daily #20. Will get her stent out in a couple weeks after evaluating a KUB.
--- NOTE | 2024-09-11 09:51 | P.HP_ITS ---
HPI H&P: HPI History of Present Illness Chief complaint: RIGHT KIDNEY STONE, HEMATURIA Narrative: Called to see patient in the postanesthesia care unit after patient had multiple PVCs and then 1 run of 5 beats of V. tach. Patient has significant bradycardia throughout the surgery as well. Having to be given medications on 3 occasions to resolve. With the run of V. tach, patient will be admitted to the intensive care unit for close monitoring patient denies any other significant heart disease other than atrial fibrillation for which she takes intermittent medications to control the rate Opioid HPI Opioid Management Most Recent Pain and Opioid Data: Last Pain Assessment 09/11/24 16:54 Last ORT Total Score 0 09/11/24 11:05 09/11/24 Last ORT Risk Category Low Risk 09/11/24 11:05 09/11/24 Review of Systems ROS Status of ROS 10 or more systems reviewed and unremark able except as noted in history and below [facility] Medical History (Updated 09/11/24 @ 17:00 by ADARSH TOSCANO) Arthritis ?M19.90 - Unspecified osteoarthritis, unspecified site (ICD-10) Palpitations ?R00.2 - Palpitations (ICD-10) Extremity edema ?R60.0 - Localized edema (ICD-10) Chronic kidney disease ?N18.9 - Chronic kidney disease, unspecified (ICD-10) Encounter for gastric sleeve procedure ?Z76.89 - Persons encountering health services in other specified circumstances (ICD-10) S/P extracorporeal shock wave therapy ?Z98.890 - Other specified postprocedural states (ICD-10) UTI (urinary tract infection) ?N39.0 - Urinary tract infection, site not specified (ICD-10) Urinary urgency ?R39.15 - Urgency of urination (ICD-10) Urinary frequency ?R35.0 - Frequency of micturition (ICD-10) Hydronephrosis ?N13.30 - Unspecified hydronephrosis (ICD-10) Ureteral stone ?N20.1 - Calculus of ureter (ICD-10) Stress incontinence ?N39.3 - Stress incontinence (female) (male) (ICD-10) Nocturia ?R35.1 - Nocturia (ICD-10) Hypothyroidism (acquired) ?E03.9 - Hypothyroidism, unspecified (ICD-10) Hypertension ?I10 - Essential (primary) hypertension (ICD-10) Enterobacter sepsis ?A41.59 - Other Gram-negative sepsis (ICD-10) Diabetes ?E11.9 - Type 2 diabetes mellitus without complications (ICD-10) Cholelithiasis ?K80.20 - Calculus of gallbladder without cholecystitis without obstruction (ICD-10) Anticoagulated ?Z79.01 - FPC (current) use of anticoagulants (ICD-10) Hyperlipidemia ?E78.5 - Hyperlipidemia, unspecified (ICD-10) Nonischemic cardiomyopathy ?I42.8 - Other cardiomyopathies (ICD-10) Mixed hyperlipidemia ?E78.2 - Mixed hyperlipidemia (ICD-10) Paroxysmal atrial fibrillation ?I48.0 - Paroxysmal atrial fibrillation (ICD-10) Hematuria ?R31.9 - Hematuria, unspecified (ICD-10) Kidney stones ?N20.0 - Calculus of kidney (ICD-10) Surgical History (Updated 07/28/24 @ 14:17 by Nancy Sanders NP) History of colonoscopy ?Z98.890 - Other specified postprocedural states (ICD-10) S/P ureteral stent placement ?Z96.0 - Presence of urogenital implants (ICD-10) History of hernia repair ?Z98.890 - Other specified postprocedural states (ICD-10) ?Z87.19 - Personal history of other diseases of the digestive system (ICD-10) History of hysterectomy ?Z90.710 - Acquired absence of both cervix and uterus (ICD-10) H/O cystoscopy ?Z98.890 - Other specified postprocedural states (ICD-10) Family History (Updated 07/28/24 @ 13:53 by Nancy Sanders NP) Other Family history of cancer Family history of diabetes mellitus Family history of myocardial infarction Social History (Updated 07/28/24 @ 14:12 by Nancy Sanders NP) Within the past year, how often did you have a drink containing alcohol: never Score interpretation: A score less than 3 is consistent with normal alcohol consumption. Smoking status: Never smoker Non-prescribed substance use: denies use Highest level of school completed/degree received: high school graduate Meds Home Medications and Allergies Home Medications ?Medication ?Instructions ?Recorded ?Confirmed ?Type acetaminophen 650 mg 650 mg PO Q12H PRN pain 07/28/24 09/11/24 History tablet,extended release (Tylenol Arthritis Pain) allopurinol 300 mg tablet 300 mg PO DAILY 07/28/24 09/11/24 History calcium 600 mg-D3 800 unit-mag11 1 tab PO DAILY 07/28/24 09/11/24 History 50 fi-cijq-wbqeac-octavia-s.borat tablet (Caltrate 600-D Plus Minerals) cholecalciferol (vitamin D3) 25 25 mcg PO DAILY 07/28/24 09/11/24 History mcg (1,000 unit) capsule dronedarone 400 mg tablet (Multaq) 400 mg PO DAILY PRN palpitations 07/28/24 09/11/24 History fexofenadine 180 mg tablet 180 mg PO DAILY 07/28/24 09/11/24 History ([facility]) glucosam 750 mg-chondroi 100 1 tab PO DAILY 07/28/24 09/11/24 History mg-hyalur 1.65 mg-CF borate 108 mg tablet ([facility]) krill 1 cap PO DAILY 07/28/24 09/11/24 History wyk-ip5-zgy-irp-sr9-cjb-astax 1,500 mg-165 mg-67.5 mg capsule (Krill Oil (Chowchilla 3 and 6)) levothyroxine 125 mcg tablet 125 mcg PO DAILY 07/28/24 09/11/24 History lisinopril 2.5 mg tablet 2.5 mg PO DAILY 07/28/24 09/11/24 History lovastatin 10 mg tablet 10 mg PO DAILY 07/28/24 09/11/24 History vtkjjgxj-pcke-ptun 8 mg-folic 400 1 tab PO DAILY 07/28/24 09/11/24 History mcg-K 50 mcg-lutein 300 mcg tablet ([facility]) potassium bicarbonate-citric acid 25 meq PO DAILY 07/28/24 09/11/24 History 25 mEq effervescent tablet (Effer-K) rivaroxaban 20 mg tablet (Xarelto) 20 mg PO Q24H 07/28/24 09/11/24 History cephalexin 500 mg capsule 500 mg PO BID 7 days #14 caps 09/11/24 Rx mirabegron 50 mg tablet,extended 50 mg PO DAILY #20 tabs 09/11/24 Rx release 24 hr (Myrbetriq) Allergies Allergy/AdvReac Type Severity Reaction Status Date / Time ciprofloxacin (From Cipro) Allergy Rash Verified 07/28/24 13:59 corn Allergy Unknown Verified 07/28/24 13:59 Sulfa (Sulfonamide Allergy Rash Verified 07/28/24 13:59 Antibiotics) Exam Constitutional Vital Signs, click to edit/add: Last Vital Signs Temp 96.8 F L 09/11/24 07:15 Pulse 51 L 09/11/24 07:15 Resp 16 09/11/24 07:15 BP 136/75 09/11/24 07:15 Pulse Ox 97 09/11/24 07:15 O2 Del Method Room Air 09/11/24 07:15 Documenting provider has reviewed patient's vital signs: yes Common normals: no apparent distress Chest Common normals: inspection of chest normal Respiratory Common normals: normal respiratory effort and no retractions Cardio Common normals: no JVD; irregular rate and irregular rhythm Rate: bradycardic Rhythm: abnormal rhythm GI Common normals: Normal to inspection, nondistended, normoactive bowel sounds present Assessment and Plan Assessment and Plan (1) Bradycardia: (2) Afib: Plan Admission findings: Patient with a 5 beat run of V. tach during surgical intervention. Also significant bradycardia. Patient will be admitted to the intensive care unit. Ventricular tachycardia-check echocardiogram and labs. Consult to cardiology. History of gout-continue with home medications Hypertension-continue with home medications Atrial fibrillation with controlled rate Hypercholesterolemia continue with home medications Hypothyroidism-continue with home medications Bladder spasm-continue with home medications Admission status: Patient to be in the be admitted to the intensive care unit as an inpatient for workup of ventricular tachycardia in the postanesthesia care setting. Medically necessary treatment likely span 2 midnights.
--- NOTE | 2024-09-11 10:11 | ECG_ITS ---
[facility] Test Date: 2024-09-11 Pat Name: MIKY NOLEN Department: Room: - Gender: Female [employer]: : 1950 Requested By: Abhinav Bhatt Order Number: [id number] Reading MD: FRANCINE CRAWLEY Measurements Intervals [place] Rate: 54 P: 63 WV: 205 QRS: 62 QRSD: 114 T: 8 QT: 419 QTc: 400 Interpretive Statements SINUS BRADYCARDIA WITH OCCASIONAL VENTRICULAR PREMATURE COMPLEXES MODERATE INTRAVENTRICULAR CONDUCTION DELAY [105+ ms QRS DURATION, 80+ ms Q/S IN V1/V2, NO Q AND 60+ ms R IN I/aVL/V5/V6] NONSPECIFIC ST/T WAVE CHANGES Electronically Signed On 09-12-2024 6:49:50 EST by FRANCINE CRAWLEY
--- NOTE | 2024-09-11 10:29 | PC.NURSE ---
1000: at bedside to speak with pt,no orders received at this time.
--- NOTE | 2024-09-11 11:13 | CA_ITS ---
Patient Name: MIKY NOLEN MR#: [id number] : 1950 Exam Date: 09/11/2024 Ordering Doctor: DR JOHANNY BETANCOURT . ECHOCARDIOGRAM REPORT PROCEDURE: CA ECHO DOPPLER COMPLETE INDICATIONS: vtach with anesthesia COMPARISON: None. DESCRIPTION: COMPLETE ECHOCARDIOGRAM Real-time transthoracic echocardiography with 2D, M-mode, spectral and color flow Doppler performed. QUALITY: Technical quality was good. LEFT VENTRICLE: Normal chamber size. Global left ventricular systolic function is at the lower limits of normal. LV EF: Estimated left ventricular ejection fraction is 50%. DIASTOLIC: ATRIAL SEPTUM: LEFT ATRIUM: Moderate dilatation. RIGHT ATRIUM: Moderate dilatation. RIGHT VENTRICLE: Mild dilatation. Normal right ventricular systolic function. TRICUSPID VALVE: Normal mobility and thickness. No stenosis with mild regurgitation. Moderate pulmonary hypertension. RVSP 53 mmHg MITRAL VALVE: Normal mobility and thickness. No evidence of mitral valve stenosis. There is no mitral annular calcification. Mild mitral regurgitation. AORTIC VALVE: Normal trileaflet appearance. No visible sclerosis. Normal leaflet mobility. No evidence of aortic valve stenosis. Trivial aortic regurgitation. AORTIC ROOT: Normal diameter and appearance. PULMONIC VALVE: Normal thickness and mobility. No stenosis. Trivial regurgitation. PERICARDIUM: No evidence of pericardial effusion. IVC: Severe dilatation. Measuring 2.8 cm with no collapse. PLEURA: CONCLUSION: 1. Left ventricular is normal in size and exhibits low normal systolic function. LVEF is estimated at 50%. 2. Right ventricle is mildly dilated and exhibits normal systolic function. 3. Moderate biatrial dilatation. 4. Mild mitral and tricuspid regurgitation. 5. Moderately elevated right-sided pressures. RVSP is 53 mmHg. 6. No pericardial effusion. Adult Echocardiography Procedure Report Left Ventricle LVEDD (3.7 - 5.6 cm): 5.86 cm LVESD (2.2 - 4.0 cm): 4.32 cm LVIVS thickness (0.6 - 1.2 cm): 1.09 cm LVPW thickness (0.5 - 1.0 cm): 1.06 cm e': 0.10 m/s E - e': 8.04 LVOT Max Gradient: 2.50 mm[Hg] LVOT Area (cm2): 0.79 m/s Peak Velocity (LVOT): 0.79 m/s Mean Velocity (LVOT): 0.57 m/s LVOT Diameter 2.20 cm Left Ventricular Ejection Fraction: 50 % Left Atrium LA Volume Index (2D A2C): 61.74 ml/m2 Left Atrium Systolic Dimension: 4.20 cm Mitral Valve MV E to A Ratio: 1.13 Mitral Valve A-Wave Peak Velocity: 0.73 m/s Mitral Valve E-Wave Peak Velocity: 0.83 m/s Right Ventricle RV Internal Diastolic Dimension: 4.92 cm Aorta AO Root Diam: 3.14 cm Ascending Ao Diam: 3.27 cm Aortic Valve AoV Area (Peak Leeroy): 1.83 cm2, 1.83 cm2 AoV Area (VTI): 1.81 cm2, 1.81 cm2 Peak Velocity(Antegrade Flow): 1.63 m/s Peak Gradient(Antegrade Flow): 10.67 mm[Hg] Mean Velocity(Antegrade Flow): 1.11 m/s Mean Gradient(Antegrade Flow): 5.60 mm[Hg] Velocity Time Integral: 49.57 cm Tricuspid Valve Peak Velocity (Regurgitant Flow): 3.04 m/s, 3.07 m/s, 2.86 m/s Pulmonic Valve Mean Gradient: 2.80 mm[Hg], 2.75 mm[Hg] Mean Velocity: 0.80 m/s, 0.80 m/s Peak Velocity: 1.18 m/s Peak Gradient: 5.30 mm[Hg], 5.76 mm[Hg] Right Atrium Right Atrium Systolic Pressure: 124.56 ml, 124.56 ml Dictated by: Jasper West M.D. on 09/11/2024 at 21:24 Approved by: Jasper West M.D. on 09/11/2024 at 21:32
[2024-09-11 11:14] LABS: Anion Gap 16.3; BUN Creatinine Ratio 18.1; Calcium 9.7 mg/dL (8.5-10.1); Chloride 108 mmol/L (98-107); Estimated GFR (African America >60 (>=60 mL/min/1.73m^2); Estimated GFR (Non-African Ame >60 (>=60 mL/min/1.73m^2); Glucose 112 mg/dL (74-106); Magnesium 1.9 mg/dL (1.8-2.4); Potassium 4.3 mmol/L (3.5-5.1); Sodium 144 mmol/L (136-145); Troponin I High Sensitivity 25.3 pg/mL (4.0-51.3)
[2024-09-11 11:17] LABS: Free T3 2.35 pg/mL (2.18-3.98); Thyroid Stimulating Hormone 0.554 uIU/mL (0.358-3.740)
--- OUTSIDE RECORDS SUMMARY | 2024-09-11 11:17 | XMS_ITS | CCD ---
Author Organization [facility] Care Team Providers Care Commercial Director Name Role Phone Markel Connor Marinelli Unavailable Unavailable Unavailable CONNOR ANAYA Primary Care Physician [phone] Nick Richardson II Attending Unav ailelisabeth Richardson [...] DR WILLARD Pittman Consulting Unavailable WEST, DR WILLRAD Pittman Admgabriela Unavailable FURLONG, DR CONNOR Marinelli Primary Care Unavailable WEST, DR WILLARD Pittman Attending Unavailable FURLONG, DR CONNOR Marinelli Primary Care Unavailable WEST, DR WILLARD Pittman Consulting Unavailable WEST, DR WILLARD Pittman Admgabriela Unavailable WEST, DR WILLARD Pittman Attending Unavailable ZieberKyle Consulting Unavailable FURLONG, DR CONNOR Marinelli Primary Care Unavailable WEST, DR WILLARD Pittman Consulting Unavailable WEST, DR WILLARD Pittmna Admgabriela Unavailable WEST, DR WILLARD Pittman Attending [...] FURLONG, DR CONNOR Marinelli Primary Care Unavailable DAVENPORT, DR WILLARD Pittman Consulting Unavailable WEST, DR WILLARD Pittman Admitting Unavailable FURLONG, DR CONNOR Marinelli Primary Care Unavailable DAVENPORT, DR WILLARD Pittman Attending Unavailable MISC, DOCTOR [...] Unavailable Furlong Connor ESCALANTE Primary Care Provider FURLONG, CONNOR Marinelli Attending Unavailable FURLONG, CONNOR [...] le Connor Anaya MD Primary Care Provider JR. MCCLAIN GEORGE C Attending Unavaila analisa MCCLAIN JR., GEORGE C Referring Unavaila NANY Akbar Attending Unavailable NANY SWANSON Referring Unavailable Allergies Allergy Classification Reported Allergen(s) Allergy Type Date of Onset Reaction(s) Facility (20 sources) Ciprofloxacin; Translations: [ciprofloxacin] Drug Allergy 12-12-19 Eruption of skin (disorder), Unknown, Rash [facility] (20 sources) Sulfonamides (Antibiotic); Translations: [Sulfa Drugs] Allergy to drug (finding) Eruption of skin (disorder) [facility] (20 sources) corn extract; Translations: [Grandin] Drug Allergy 02-18-20 24 Unknown (qualifier value), Other (See Comments) [facility] (13 sources) Dog; Translations: [Dogs] Allergy to substance Unknown (qualifier value) [facility] (20 sources) Mold Extract; Translations: [mold] Drug Allergy 06-21-20 Unknown (qualifier value), Other (See Comments) [facility] (13 sources) Milk Products; Translations: [Milk Products] Food allergy Unknown (qualifier value) [facility] (13 sources) house dust mite allergen extract; Translations: [house dust mite allergen extra] Allergy to substance Unknown (qualifier value) [facility] (2 sources) Ciprofloxacin Drug Allergy 01-31-20 14 [facility] (1 source) house dust allergenic extract Drug Allergy [facility] (2 sources) Lactose Drug Allergy [facility] (1 source) Sulfonamides (Antibiotic) Drug allergy (disorder) [facility] (13 sources) Sulfonamides (Antibiotic); Translations: [SULFA (SULFONAMIDE ANTIBIOTICS)] Drug Intolerance 06-21-20 Unknown, [facility] Work Phone: (7 sources) Sulfamethoxazole / Trimethoprim; Translations: [SULFAMETHOXAZOLE-T RIMETHOPRIM] Drug Allergy 11-13-19 [facility] Medications Current Medications Medication Drug Class(es) [...] 1 capsule by mouth in the morning bwuwp-no-4-amo-nqy-ztfqrlw-ast (KRILL OIL) 1,[phone] mg capsule Take 1 capsule by mouth [...] adjustment) Start: 07-29-2019 take 1 capsule by [facility] once daily levothyroxine 137 mcg (0.137 mg) [...] ADULT 50+ PO) as directed Orally Active fxgyujob-gbi-qevo-F A-vit K-lut (Centrum Silver Women) 8 mg iron-400 mcg-50 mcg tablet (2 sources) take 1 tablet by mouth once daily puaepmca-srp-bamt-FA -vit K-lut (Centrum Silver Women) 8 mg iron-400 mcg-50 mcg tablet Take 1 tablet by mouth once daily. Active jllnrunj-xep-txsi-F A-vit K-lut (CENTRUM SILVER WOMEN) 8 mg iron-400 mcg-50 mcg tablet (5 sources) take 1 tablet by mouth once in the morning ksgbntag-shf-swuz-FA -vit K-lut (CENTRUM SILVER WOMEN) 8 mg iron-400 mcg-50 mcg tablet Take 1 tablet by mouth in the morning. Active Grafton-3 Fatty Acids (OMEGA-3 FISH OIL PO) (3 sources) Grafton-3 Fatty Ac ids (OMEGA-3 FISH OIL PO) Take by mouth Active omega-3 fatty acids-fish oil (One-Per-Day Grafton-3) 684-1,200 mg capsule (2 sources) omega-3 fatty acids-fish oil (One-Per-Day Grafton-3) 684-1,200 mg capsule Take 1 capsule (1,200 [...] procedure, # 2 cap(s), Refills(s) 0, Pharmacy: [id number], 165, cm, 06/30/22 11:48:00 EDT, Height/Length [...] BID, # 60 tab(s), Refills(s) 11, Pharmacy: [id number], 165, cm, 10/26/23 8:42:00 EST, Height/Length Dosing, 97.5, kg, 10/26/23 8:42:00 EST, Weight Dosing Start Date: 10/26/23 Status: Ordered 1 ml methylPREDNISolone acetate 40 mg/ml injection (4 sources) Corticosteroid Start: 2023 End: 2023 methylPREDNISolone acetate (DEPO-Medrol) injection 40 mg Start: 09-02-2024 End: 09-02-2024 40 mg, Intra-articular, Once PRN Procedure, Starting on Sun09/02/24 at 1414, For 1 dose Grafton 3 CAPS (7 sources) Grafton 3 CAPS BASSAM E DIRECTED. Quantity: 0 [...] Taking high risk medication; Translations: [Other senior living (current) drug therapy] Onset: 08-28-2024 08-28-2024 Episodic Other aftercare (2 sources) Other emt intermediate (current) drug therapy; Translations: [Other senior living (current) drug therapy] Onset: 08-28-2024 Episodic Other [...] discussed. Consent was given by the patient. [facility] XR Knee - right 1 or [...] on bone articulation and patella femoral joint [facility] Radiology Study observation (narrative) [facility] COMPREHENSIVE METABOLIC PANE Good 08-18-2024 Albumin [Mass/Vol] 3.9 g/dL Normal 3.2-5.3 [facility] Comment on above: Performed By: #### T HYR, 73391-2, CMP #### [facility] ([id number]) [address], [address] [place] [address] ALP [Catalytic activity/Vol] 114 U/L Normal 39-130 [facility] Comment on above: Performed By: #### Min KABA, 36732-0, CMP #### [facility] ([id number]) [address], [address] [place] [address] ALT [Catalytic activity/Vol] 15 U/L Normal 0-31 [facility] Comment on above: Performed By: #### Min KABA, 47628-2, CMP #### [facility] ([id number]) [address], [address] [place] [address] Anion gap [Moles/Vol] 8 mmol/L Normal 5-15 [facility] Comment on above: Performed By: #### Min KABA, 36157-3, CMP #### [facility] ([id number]) [address], [address] [place] [address] AST [Catalytic activity/Vol] 20 U/L Normal 0-41 [facility] Comment on above: Performed By: #### Min KABA, 80210-1, CMP #### [facility] ([id number]) [address], [address] [place] [address] Bilirubin [Mass/Vol] 0.5 mg/dL Normal 0.3-1.2 [facility] Comment on above: Performed By: #### Min KABA, 42323-7, CMP #### [facility] ([id number]) [address], [address] [place] [address] Calcium [Mass/Vol] 10.4 mg/dL Normal 8.5-10.5 [facility] Comment on above: Performed By: #### Min KABA, 36461-5, CMP #### [facility] ([id number]) [address], [address] [place] [address] Chloride [Moles/Vol] 103 mmol/L Normal 98-109 [facility] Comment on above: Performed By: #### Min KBAA 62442-0, CMP #### [facility] ([id number]) [address], [address] [place] [address] CO2 [Moles/Vol] 27 mmol/L Normal 22-32 [facility] Comment on above: Performed By: #### Min KABA, 00622-9, CMP #### [facility] ([id number]) [address], [address] [place] [address] Creatinine [Mass/Vol] 0.80 mg/dL Normal 0.40-1.00 [facility] Comment on above: Result Comment: METH OD TRACEABLE TO IDMS STANDARD Performed By: #### Min KABA 03473-2, CMP #### [facility] ([id number]) [address], [address] [place] [address] GFR/1.73 sq M.predicted among non-blacks MDRD (S/P/Bld) [Vol rate/Area] 77 mL/min/{1.73_m2} Normal >59 [facility] Comment on above: Result Comment: Reported eGFR is based on the CKD-EPI 2020 equation that does not use a race coefficient. Performed By: #### Min KABA 66849-2, CMP #### [facility] ([id number]) [address], [address] [place] [address] Glucose [Mass/Vol] 99 mg/dL Normal 65-99 [facility] Comment on above: Performed By: #### Min KABA 30795-4, CMP #### [facility] ([id number]) [address], [address] [place] [address] Potassium [Moles/Vol] 4.0 mmol/L Normal 3.5-5.0 [facility] Comment on above: Performed By: #### Min KABA, 32917-7, CMP #### [facility] ([id number]) [address], [address] [place] [address] Protein [Mass/Vol] 7.0 g/dL Normal 6.0-8.0 [facility] Comment on above: Performed By: #### Min SENDY, 52332-1, CMP #### [facility] ([id number]) [address], [address] [place] [address] Sodium [Moles/Vol] 138 mmol/L Normal 134-146 [facility] Comment on above: Performed By: #### Min KABA, 70280-7, CMP #### [facility] ([id number]) [address], [address] [place] [address] Urea nitrogen [Mass/Vol] 18 mg/dL Normal 5-27 [facility] Comment on above: Performed By: #### Min SENDY, 30494-1, CMP #### [facility] ([id number]) [address], [address] [place] [address] Comprehensive metabolic pane good 08-18-2024 Albumin [Mass/Vol] 3.9 g/dL 3.2 - 5.3 g/dL [facility] ALP [Catalytic activity/Vol] 114 U/L 39 - 130 U/L [facility] ALT No additional P-5'-P [Catalytic activity/Vol] 15 U/L 0 - 31 U/L [facility] Anion gap [Moles/Vol] 8 mmol/L 5 - 15 mmol/L [facility] AST [Catalytic activity/Vol] 20 U/L 0 - 41 U/L [facility] Bilirubin [Mass/Vol] 0.5 mg/dL 0.3 - 1.2 mg/dL [facility] Calcium [Mass/Vol] 10.4 mg/dL 8.5 - 10.5 mg/dL [facility] Chloride [Moles/Vol] 103 mmol/L 98 - 109 mmol/L [facility] CO2 [Moles/Vol] 27 mmol/L 22 - 32 mmol/L [facility] Creatinine [Mass/Vol] 0.8 mg/dL 0.40 - 1.00 mg/dL [facility] Comment on above: METHOD TRACEABLE TO IDUT STANDARD eGFR (CKD-EPI)non-race dependent 77 - PINF [facility] Comment on above: Reported eGFR is based on the CKD-EPI 2020 equation that does not use a race coefficient. Glucose [Mass/Vol] 99 mg/dL 65 - 99 mg/dL [facility] Potassium [Moles/Vol] 4 mmol/L 3.5 - 5.0 mmol/L [facility] Protein [Mass/Vol] 7 g/dL 6.0 - 8.0 g/dL [facility] Sodium [Moles/Vol] 138 mmol/L 134 - 146 mmol/L [facility] Urea nitrogen [Mass/Vol] 18 mg/dL 5 - 27 mg/dL [facility] Lipid 1996 panelon 4 Cholesterol [Mass/Vol] 187 mg/dL 150 - 200 mg/dL [facility] Cholesterol in HDL [Mass/Vol] 66 mg/dL 39 - PINF mg/dL [facility] Comment on above: HDL <40 mg/dL - High Risk HDL > or = 40mg/dL- Desirable HDL >60 mg/dL - Negative Risk Cholesterol in LDL [Mass/Vol] 107 mg/dL NINF - 130 mg/dL [facility] Comment on above: LDL <100 mg/dL - Desirable LDL >160 mg/dL - High Risk Cholesterol in VLDL [Mass/Vol] 14 mg/dL 0 - 30 mg/dL [facility] Cholesterol.total /Cholesterol in HDL [Mass ratio] 2.8 {ratio} 1.0 - 5.0 [facility] Triglyceride [Mass/Vol] 68 mg/dL 27 - 150 mg/dL [facility] Cholesterol [Mass/Vol] 187 mg/dL Normal 150-200 [facility] Comment on above: Performed By: #### T [facility], 86225-3, CMP #### [facility] ([id number]) [address], [address] [place] [address] Cholesterol in HDL [Mass/Vol] 66 mg/dL Normal >39 [facility] Comment on above: Result Comment: HDL <40 mg/dL - High Risk HDL > or = 40mg/dL- Desirable HDL >60 mg/dL - Negative Risk Performed By: #### Min KABA 84558-4, CMP #### [facility] ([id number]) [address] [place] [address] Cholesterol in LDL [Mass/Vol] 107 mg/dL Normal <130 [facility] Comment on above: Result Comment: LDL <100 mg/dL - Desirable LDL >160 mg/dL - High Risk Performed By: #### Min KABA 94497-4, CMP #### [facility] ([id number]) [address], [address] [place] [address] Cholesterol in VLDL [Mass/Vol] 14 mg/dL Normal 0-30 [facility] Comment on above: Performed By: ###Chavo KABA 17361-0, CMP #### [facility] ([id number]) [address], [address] [place] [address] CHOLESTEROL:HDL 2.8 Normal 1.0-5.0 [facility] Comment on above: Performed By: #### Min KABA 46757-8, CMP #### [facility] ([id number]) [address], [address] [place] [address] Triglyceride [Mass/Vol] 68 mg/dL Normal 27-150 [facility] Comment on above: Performed By: #### T HYR, 18067-5, CMP #### [facility] ([id number]) [address], [address] [place] [address] No Panel Informationon 08-18 [facility] THYROID PROFILEon 08-18-2024 Free T4 [Mass/Vol] 1.33 ng/dL Normal 0.61-1.60 [facility] Comment on above: Performed By: #### T HYR, 55923-5, CMP #### [facility] ([id number]) [address] [place] [address] TSH 0.35 uIU/mL Low 0.49-4.67 [facility] Comment on above: Performed By: #### T HYR, 87521-6, CMP #### [facility] ([id number]) [address] [place] [address] Thyroid profile includes TSH FT4on 08-18-2024 Free T4 [Mass/Vol] 1.33 ng/dL 0.61 - 1.60 ng/dL [facility] Interpretation and review of laboratory results Abnormal [facility] TSH Qn 0.35 m[IU]/L Low [facility] U[facility] Fish and Urine Cyt o ([facility])on 08-05-2024 UVFISH & UC Diagnosis Info Invalid Interpretation Code [facility] Comment on above: Result Comment: A:Ur [...] with cytology and cystoscopy results. * CPT: 38244, 84074. MicroScopic Description - MicroScopic Description - Electronically signed by : on: 08/05/2024 16:40:06 Performed By: #### 1 [id number] #### [facility] [address] [place] [address] [facility] Fish and Urine Cyt o ([facility])on 07-29-2024 [facility] Method of Extraction Voided Normal [facility] Comment on above: Performed By: #### 1 [id number] #### [facility] [address] [place] [address] [facility] Number of Jars 1 Invalid Interpretation Code [facility] Comment on above: Performed By: #### 1 [id number] #### [facility] [address] [place] [address] [facility] Specimen Urine Normal [facility] Comment on above: Performed By: #### 1 [id number] #### [facility] [address] [place] [address] [facility] Type of Service Technical Only Normal [facility] Comment on above: Performed By: #### 1 [id number] #### [facility] [address] [place] [address] Urine Cytology ([facility])on 07-18-2024 Microscopic exam Cytology (U) [Interp] Diagnosis Info Invalid Interpretation Code [facility] Comment on above: Result Comment: A:Ur [...] on: 07/18/2024 12:47:49 Performed By: #### 1 [id number] #### [facility] [address] [place] [address] Ambulatory Visit Summaryon 07-15-2024 Ambulatory Visit Summary [...] When: Comments: pending review of imaging Where: [address] [place] [address]- Medications What How Much When Instructions Unchanged [...] prescribing physician if questions or concerns Allergies Grandin (Unknown) Dogs (Unknown) Milk Products (Unknown) Mold [...] the b (more content not included)... Normal [facility] Urine Cytology ([facility])on 0 07-15-2024 Method of Extraction Voided Normal [facility] Comment on above: Performed By: #### 1 [id number] #### [facility] [address] [place] [address] Number of Jars 1 Invalid Interpretation Code [facility] Comment on above: Performed By: #### 1 [id number] #### [facility] [address] [place] [address] Specimen Clean Catch Normal [facility] Comment on above: Performed By: #### 1 [id number] #### [facility] [address] [place] [address] Type of Service Technical Only Normal [facility] Comment on above: Performed By: #### 1 [id number] #### [facility] [address] [place] [address] Urology Office/Clinic Noteon 07-15-2024 Urology Office/Clinic Note [...] with voice recognition artificial intelligence software, specifically [employer], [employer] and or [employer]. Substitutions may have occurred due to the [...] Urnls Dip Stick Auto w/o Microscopy POC 88388 Follow-up With When Contact Information MO HAYDEN, Yehuda Haddad, URL [address] [place] [address]- Additional Instructions: pending review of imaging Patient Education Kidney Stones, Qcmy-ea-Xkcs Hematuria, Adult Problem List/Past Medical History Ongoing [...] bile duct (more content not included)... Normal [facility] Comment on above: Result Comment: Elec tronically Signed By: RAAD Back APRN, Radha Lopes\.br\Date and Time Signed: 07/15/24 15:39 EDT ECG 12 Leadon 03-06-2024 Sinus bradycardia with occasional PVCs Low voltage QRS Nonspecific ST change QTc 391 ms [facility] Work Phone: BASIC METABOLIC PANLon 02-17 Anion gap [Moles/Vol] 6 mmol/L Normal 5-15 [facility] Comment on above: Performed By: #### B YONATAN, THYR #### [facility] ([id number]) [address], [address] [place] [address] Calcium [Mass/Vol] 9.8 mg/dL Normal 8.5-10.5 [facility] Comment on above: Performed By: #### B YONATAN, THYR #### [facility] ([id number]) [address] [place] [address] Chloride [Moles/Vol] 106 mmol/L Normal 98-109 [facility] Comment on above: Performed By: #### B YONATAN, THYR #### [facility] ([id number]) [address] [place] [address] CO2 [Moles/Vol] 31 mmol/L Normal 22-32 [facility] Comment on above: Performed By: #### Win TAM, THYR #### [facility] ([id number]) [address] [place] [address] Creatinine [Mass/Vol] 0.90 mg/dL Normal 0.40-1.00 [facility] Comment on above: Result Comment: METH OD TRACEABLE TO IDMS STANDARD Performed By: #### B YONATAN, THYR #### [facility] ([id number]) [address] [place] [address] GFR/1.73 sq M.predicted among non-blacks MDRD (S/P/Bld) [Vol rate/Area] 68 mL/min/{1.73_m2} Normal >59 [facility] Comment on above: Result Comment: Reported eGFR is based on the CKD-EPI 2020 equation that does not use a race coefficient. Performed By: #### B YONATAN, THYR #### [facility] ([id number]) [address] [place] [address] Glucose [Mass/Vol] 105 mg/dL High 65-99 [facility] Comment on above: Performed By: #### B YONATAN, THYR #### [facility] ([id number]) [address] [address] [address] [place] [address] Potassium [Moles/Vol] 4.2 mmol/L Normal 3.5-5.0 [facility] Comment on above: Performed By: #### B YONATAN, THYR #### [facility] ([id number]) [address] [place] [address] Sodium [Moles/Vol] 143 mmol/L Normal 134-146 [facility] Comment on above: Performed By: #### B YONATAN, THYR #### [facility] ([id number]) [address] [place] [address] Urea nitrogen [Mass/Vol] 19 mg/dL Normal 5-27 [facility] Comment on above: Performed By: #### B YONATAN, THYR #### [facility] ([id number]) [address] [place] [address] THYROID PROFILEon 02-18-2024 Free T4 [Mass/Vol] 1.92 ng/dL High 0.61-1.60 [facility] Comment on above: Performed By: #### B YONATAN, THYR #### [facility] ([id number]) [address] [place] [address] TSH 0.58 uIU/mL Normal 0.49-4.67 [facility] Comment on above: Performed By: #### B YONATAN, THYR #### [facility] ([id number]) [address] [place] [address] Ambulatory Visit Summaryon 1 Ambulatory Visit Summary MIKY FUENTES :1950 Visit Date:10/26/2023 Ambulatory Visit Instructions Your Diagnosis Ureteral stone with hydronephrosis Kidney stone Tests Performed Urnls Dip Stick Auto w/o Microscopy POC 59209 Your Care Team Attending Physician - Yehuda [...] AM EST With: Where: [facility] Normal [address] [place] [address] [place] [address]- \.br\ You Need to Schedule the Following Appointments\.br\ Follow Up with MO HAYDEN, Yehuda Haddad, GENEVIEVEL When: \.br\ Where:\.br\ [address] [facility]\.br\ [place] [address]-\.br\ Medications\.br\ What How Much When Instructions\.br\ New potassium bicarbonate (K-Effervescent 25 mEq oral tablet, effervescent) 1 Tablets By Mouth 2 times a day Refills: 11 Pickup at [facility]\.br\ Unchanged allopurinol (allopurinol 300 mg Tab) [...] if questions or concerns \.br\ Pharmacy Information\.br\ [facility]: [address] [place], [place] [id number] [phone]\.br\ \.br\ What How Much When Why Comments\.br\ Stop Taking tamsulosin (Flomax 0.4 mg Cap) 1 Capsules By Mouth Every day Right flank pain Kidney stones Gross hematuria\.br\ Test Results\.br\ Urnls Dip Stick Auto w/o Microscopy POC 24057 (10/26/2023)\.br\ Bilirubin Urine Dipstick - Negative\.br\ Blood Urine Dipstick - 3+ Large\.br\ Glucose Urine Dipstick - Negative\.br\ Ketones Urine Dipstick - Negative\.br\ Leukocytes Urine Dipstick - Negative\.br\ Nitrite Urine Dipstick - Negative\.br\ Protein Urine Dipstick - 2+ (100 mg/dl)\.br\ Specific Dixon Urine Dipstick - 1.025\.br\ Urine Appearance Urine Dipstick - Slightly cloudy\.br\ Urine Color Urine Dipstick - Yellow\.br\ Urobilinogen Urine Dipstick - Normal 0.2-1 EU/dl\.br\ pH Urine Dipstick - 5\.br\ Allergies\.br\ Grandin (Unknown)\.br\ Dogs (Unknown)\.br\ Milk Products (Unknown)\.br\ Mold [...] \.br\ Have a salad and fruit [facility] Patient Educationon 10-26-20 Patient Education Nephrology [...] Spinach (cooked), rhubarb, beets, sweet potatoes, and Kenyan chard. ? Peanuts. ? Potato chips, thai fries, and baked potatoes with skin on. ? Nuts and nut products. ? Chocolate. ? If you regularly take a diuretic medicine, make sure to eat at least 1 or 2 servings of fruits or vegetables that are high in potassium each day. These include: ? Avocado. ? Banana. ? [place], prune, carrot, or tomato juice. ? Baked [...] fish oil, or vitamin B6. ? Take jkwl-fgm-dcobrjp and prescription medicines only as told by your health care provider. These include supplements. What foods sh (more content not included)... Normal [facility] RAD - MISCon 10-26-2023 [facility] MIS [id number]#[address] [facility] [id number]#1 .00TIFF [facility] Urology Office/Clinic Noteon 10-26-2023 Urology Office/Clinic Note Chief Complaint CT Review HPI Staff 2 wk f/u with KUB. Saw DAXA at prior OV. Previous Dx: R flank pain, kidney stones, gross hematuria. S/p ESWL 11/18/20. CT AP wo con done 10/11/23 at [facility].Was given Tamsulosin, however stopped [...] Information MO HAYDEN, Yehuda Haddad, URL [address] [id number]- Additional Instructions: 6 months Patient Education Dietary [...] joint sup (more content not included)... Normal [facility] Comment on above: Result Comment: Elec tronically Signed By: Yehuda HASSAN MD\.br\Date and Time Signed: 10/26/23 09:11 EST\.br\Electronically Co-Signed By: Chantal Bishop\Date and Time Co-Signed: 10/26/23 09:[address] - [address] Reporton 10-15-[address] - [address] Report [id number]# 1.00TIFF Normal [facility] RAD - CT Report [id number]#1 .00TIFF Normal [facility] RAD - MISCon 10-15-2023 RAD - MISC [id number]#1 .00TIFF Normal [facility] RAD - MISC [id number]#1 .00TIFF Normal [facility] Ambulatory Visit Summaryon 1 12-10-2022 Ambulatory Visit Summary MIKY FUENTES :1950 Visit Date:10/09/2023 Ambulatory Visit Instructions Your Diagnosis Gross hematuria Right flank pain Tests Performed Urnls Dip Stick Auto w/o Microscopy POC 13594 Your Care Team Attending Physician - DORA [...] Urnls Dip Stick Auto w/o Microscopy POC 45379 (10/09/2023) Bilirubin Urine Dipstick - Negative Blood Urine Dipstick - 3+ Large Glucose Urine Dipstick - Negative Ketones Urine Dipstick - Negative Leukocytes Urine Dipstick - Negative Nitrite Urine Dipstick - Negative Protein Urine Dipstick - 3+ (300 mg/dl) Specific Dixon Urine Dipstick - >=1.030 Urine Appearance Urine Dipstick - Clear Urine Color Urine Dipstick - Yellow Urobilinogen Urine Dipstick - Normal 0.2-1 EU/dl pH Urine Dipstick - 5.5 Allergies Grandin (Unknown) Dogs (Unknown) Milk Products (Unknown) Mold [...] choosing us for your care. Normal [facility] Patient Educationon 10-09-20 Patient Education Urology [...] these instructions at home: Medicines ? Take qqwk-pge-efdqoca and prescription medicines only as told by [...] the blood stops without treatment. ? Take xgde-zoe-qzlsyyo and prescription medicines only as told by your health care provider. ? Drink enough fluid to keep your urine pale yellow. This information is not intended to replace advice given to you by your health care provider. Make sure you discuss any questions you have with your health care provider. Document Revised: 06/15/2021 Document Reviewed: 06/15/2021 [employer] Patient Education ? 2022 [employer]. Normal [facility] Urology Office/Clinic Noteon 10-09-2023 Urology Office/Clinic [...] Daily, # 30 cap(s), Refills(s) 0, Pharmacy: [facility], 165, cm, 10/09/23 15:24:00 EST, Height/Length Dosing, 113, kg, 10/09/23 15:24:00 EST, Weight Dosing CT Abdomen w/o Contrast E&M of Est. Patient Moderate 30-39 Min 71715 2. Kidney stones (N20.0: Calculus of kidney) see #1 KUB from this spring showed several medium (6-7mm) R renal stones has had multiple lithotripsy in past Ordered: tamsulosin, 0.4 mg = 1 cap(s), Oral, Daily, # 30 cap(s), Refills(s) 0, Pharmacy: [facility], 165, cm, 10/09/23 15:24:00 EST, Height/Length Dosing, 113, kg, 10/09/23 15:24:00 EST, Weight Dosing CT Abdomen w/o Contrast E&M of Est. Patient Moderate 30-39 Min 54859 3. Gross hematuria (R31.0: Gross hematuria) see #1 Ordered: tamsulosin, 0.4 mg = 1 cap(s), Oral, Daily, # 30 cap(s), Refills(s) 0, Pharmacy: [facility], 165, cm, 10/09/23 15:24:00 EST, Height/Length Dosing, 113, kg, 10/09/23 15:24:00 EST, Weight Dosing CT Abdomen w/o Contrast E&M of Est. Patient Moderate 30-39 Min 24368 Urnls Dip Stick Auto w/o Microscopy POC 93798 Follow-up With When Contact Information INGE CARDONA, DORA Washburn, URL [address] [facility] [place] [address] Business (1) Additional Instructions: pending [...] (more content not included)... Normal [facility] Comment on above: Result Comment: Elec tronically Signed By: INGE CARDONA, DORA Washburn\.br\Date and Time Signed: 10/09/23 15:49 EST CREATININEon 03-05-2023 Creatinine [Mass/Vol] 1.16 mg/dL Critically high 0.55-1.02 [facility] Comment on above: Performed By: #### C AIYANA #### [facility] [address] [address] [address] Alysha Machuca EGFR-AF TUVALUAN 56 mL/min/1.73m2 Critically low >=60 [facility] Comment on above: Performed By: #### C AIYANA #### [facility] [address] [address] [address] Alysha Machuca EGFR-NON AF TUVALUAN 46 mL/min/1.73m2 Critically low >=60 [facility] Comment on above: Performed By: #### C AIYANA #### [facility] [address] [place] [address] ABD/PELVIS WO CONon [...] CHENEY Date: 2023-03-05 15:08 Normal [facility] VITAMIN B1 (THIAMINE)on 01-28 Vit. B1, Whole Blood 132.2 nmol/L Normal 66.5-200.0 [facility] Comment on above: Performed By: #### V ITB1T ####[facility] [address] [id number]. Alysha Machuca CBC AUTO DIFFon 02-20-2023 BASO # 0.1 103/ul Normal 0.0-0.1 [facility] Comment on above: Performed By: #### C BC #### [facility] [address] [place], [place] [address] Dr. Alysha Machuca Basophils/100 WBC (Bld) 0.9 % Normal 0.2-2.0 [facility] Comment on above: Performed By: #### C BC #### [facility] [address] [place], [place] [address] Dr. Alysha Machuca EO # 0.2 103/ul Normal 0.0-0.7 [facility] Comment on above: Performed By: #### C BC #### [facility] [address] [place] [address] Dr. Alysha Machuca Eosinophils/100 WBC (Bld) 3.0 % Normal 0.9-7.0 [facility] Comment on above: Performed By: #### C BC #### [facility] [address] [place] [address] Dr. Alysha Machuca Erythrocyte distribution width (RBC) [Ratio] 13.9 % Normal 11.0-15.0 [facility] Comment on above: Performed By: #### C BC #### [facility] [address] [place] [address] Dr. Alysha Machuca Hematocrit (Bld) [Volume fraction] 39.5 % Normal 36.0-48.0 [facility] Comment on above: Performed By: #### C BC #### [facility] [address] [place] [address] Dr. Alyhsa Machuca Hemoglobin (Bld) [Mass/Vol] 12.7 g/dL Normal 12.0-16.0 [facility] Comment on above: Performed By: #### C BC #### [facility] [address] [place] [address] Dr. Alysha Machuca IG # 0.01 10e3/ul Normal 0.00-0.03 [facility] Comment on above: Performed By: #### C BC #### [facility] [address] [place] [address] Dr. Alysha Machuca IG % 0.2 % Normal 0.0-0.5 [facility] Comment on above: Performed By: #### C BC #### [facility] [address] [place] [address] Dr. Alysha Machuca LYMPH # 1.7 103/ul Normal 1.2-3.8 [facility] Comment on above: Performed By: #### C BC #### [facility] [address] [place] [address] Dr. Alysha Machuca Lymphocytes/100 WBC (Bld) 30.7 % Normal 20.5-60.0 [facility] Comment on above: Performed By: #### C BC #### [facility] [address] [place] [address] Dr. Alysha Machuca MANUAL DIFF REQ NO Normal [facility] Comment on above: Performed By: #### C BC #### [facility] [address] [place] [address] Dr. Alysha Machuca MCH (RBC) [Entitic mass] 29.3 pg Normal 26.7-34.0 [facility] Comment on above: Performed By: #### C BC #### [facility] [address] [place] [address] Dr. Alysha Machuca MCHC (RBC) [Mass/Vol] 32.2 g/dL Normal 29.9-35.2 [facility] Comment on above: Performed By: #### C BC #### [facility] [address] [place] [address] Dr. Alysha Machuca MCV (RBC) [Entitic vol] 91.0 fL Normal 81.0-99.0 [facility] Comment on above: Performed By: #### C BC #### [facility] [address] [place] [address] Dr. Alysha Machuca MONO # 0.4 103/ul Normal 0.3-0.8 [facility] Comment on above: Performed By: #### C BC #### [facility] [address] [place] [address] Dr. Alysha Machuca Monocytes/100 WBC (Bld) 6.8 % Normal 1.7-12.0 [facility] Comment on above: Performed By: #### C BC #### [facility] [address] [place] [address] Dr. Alysha Machuca NEUT # 3.3 103/ul Normal 1.4-6.5 [facility] Comment on above: Performed By: #### C BC #### [facility] [address] [place] [address] Dr. Alysha Machuca Neutrophils/100 WBC (Bld) 58.4 % Normal 43.0-75.0 [facility] Comment on above: Performed By: #### C BC #### [facility] [address] [address] [address] Alysha Machuca Platelet mean volume (Bld) [Entitic vol] 9.3 fL Critically low 9.5-13.5 [facility] Comment on above: Performed By: #### C BC #### [facility] [address] [address] [address] Alysha Machuca PLT 186 103/ul Normal 150-450 [facility] Comment on above: Performed By: #### C BC #### [facility] [address] [address] [address] Alysha Machuca RBC 4.34 106/ul Normal 4.20-5.40 [facility] Comment on above: Performed By: #### C BC #### [facility] [address] [address] [address] Alysha Machuca WBC 5.6 103/ul Normal 4.0-11.0 [facility] Comment on above: Performed By: #### C BC #### [facility] [address] [address] [address] Alysha Machuca FERRITINon 02-20-2023 Ferritin [Mass/Vol] 36.0 ng/mL Normal 8.0-252.0 [facility] Comment on above: Performed By: #### F ERR, B12FOL, FETIBC, VITAD ####[facility] [address] [address]DrMaite Machuca IRON AND TIBCon 02-20-2023 % SATURATION 15.8 % Normal [facility] Comment on above: Performed By: #### F ERR, B12FOL, FETIBC, VITAD ####[facility] [address] [address]Dr. Alysha Machuca Iron [Mass/Vol] 53.0 ug/dL Normal 50.0-170.0 [facility] Comment on above: Performed By: #### F ERR, B12FOL, FETIBC, VITAD ####[facility] [address] [address]Dr. Alysha Machuca TIBC DIRECT 335.0 ug/dL Normal 250.0-450.0 [facility] Comment on above: Performed By: #### F ERR, B12FOL, FETIBC, VITAD ####[facility] [address] [place], [place] [address]SrDr. Alysha Machuca MAGNESIUMon 02-20-2023 Magnesium [Mass/Vol] 1.9 mg/dL Normal 1.8-2.4 [facility] Comment on above: Performed By: #### P HOS, CMP, MG #### [facility] [address] [address] [address] Alysha Machuca PHOSPHORUSon 02-20-2023 Phosphate [Mass/Vol] 3.9 mg/dL Normal 2.6-4.7 [facility] Comment on above: Performed By: #### P HOS, CMP, MG #### [facility] [address] [place] [address] Dr. Alysha Machuca PROF 14(COMP METB)on 023 Albumin [Mass/Vol] 3.4 g/dL Normal 3.4-5.0 [facility] Comment on above: Performed By: #### P HOS, CMP, MG #### [facility] [address] [place] [address] Dr. Alysha Machuca Albumin/Globulin [Mass ratio] 0.9 {ratio} Normal [facility] Comment on above: Performed By: #### P HOS, CMP, MG #### [facility] [address] [address] [address] Alysha Machuca ALP [Catalytic activity/Vol] 123 U/L Critically high 46-116 [facility] Comment on above: Performed By: #### P HOS, CMP, MG #### [facility] [address] [place] [address] Dr. Alysha Machuca ALT [Catalytic activity/Vol] 21 U/L Normal 14-59 [facility] Comment on above: Performed By: #### P HOS, CMP, MG #### [facility] [address] [place] [address] Dr. Alysha Machuca Anion gap [Moles/Vol] 13.8 mmol/L Normal [facility] Comment on above: Performed By: #### P HOS, CMP, MG #### [facility] [address] [address] [address] Alysha Machuca AST [Catalytic activity/Vol] 15 U/L Normal 15-37 [facility] Comment on above: Performed By: #### P HOS, CMP, MG #### [facility] [address] [address] [address] Alysha Machuca Bilirubin [Mass/Vol] 0.5 mg/dL Normal 0.2-1.0 [facility] Comment on above: Performed By: #### P HOS, CMP, MG #### [facility] [address] [place] [address] Dr. Alysha Machuca Calcium [Mass/Vol] 9.6 mg/dL Normal 8.5-10.1 [facility] Comment on above: Performed By: #### P HOS, CMP, MG #### [facility] [address] [place] [address] Dr. Alysha Machuca Chloride [Moles/Vol] 103 mmol/L Normal 98-107 [facility] Comment on above: Performed By: #### P HOS, CMP, MG #### [facility] [address] [place] [address] Dr. Alysha Machuca CO2 [Moles/Vol] 25.2 mmol/L Normal 21.0-32.0 [facility] Comment on above: Performed By: #### P HOS, CMP, MG #### [facility] [address] [place] [address] Dr. Alysha Machuca Creatinine [Mass/Vol] 0.95 mg/dL Normal 0.55-1.02 [facility] Comment on above: Performed By: #### P HOS, CMP, MG #### [facility] [address] [place] [address] Dr. Alysha Machuca EGFR-AF TUVALUAN >60 Normal >=60 [facility] Comment on above: Performed By: #### P HOS, CMP, MG #### [facility] [address] [address] [address] Alysha Machuca EGFR-NON AF TUVALUAN 58 mL/min/1.73m2 Critically low >=60 [facility] Comment on above: Performed By: #### P HOS, CMP, MG #### [facility] [address] [address] [address] Alysha Machuca Globulin (S) [Mass/Vol] 3.6 g/dL Normal [facility] Comment on above: Performed By: #### P HOS, CMP, MG #### [facility] [address] [address] [address] Alysha Machuca Glucose [Mass/Vol] 96 mg/dL Normal 74-106 [facility] Comment on above: Performed By: #### P HOS, CMP, MG #### [facility] [address] [place] [address] Dr. Alysha Machuca Potassium [Moles/Vol] 4.0 mmol/L Normal 3.5-5.1 [facility] Comment on above: Performed By: #### P HOS, CMP, MG #### [facility] [address] [address] [address] Alysha Machuca Protein [Mass/Vol] 7.0 g/dL Normal 6.4-8.2 [facility] Comment on above: Performed By: #### P HOS, CMP, MG #### [facility] [address] [place] [address] Dr. Alysha Machuca Sodium [Moles/Vol] 138 mmol/L Normal 136-145 [facility] Comment on above: Performed By: #### P HOS, CMP, MG #### [facility] [address] [address] [address] Alysha Machuca Urea nitrogen [Mass/Vol] 21.0 mg/dL Critically high 7.0-18.0 [facility] Comment on above: Performed By: #### P HOS, CMP, MG #### [facility] [address] [address] [address] Alysha Machuca Urea nitrogen/Creatini ne [Mass ratio] 22.1 mg/mg Normal [facility] Comment on above: Performed By: #### P HOS, CMP, MG #### [facility] [address] [place], [place] [address] Dr. Alysha Machuca VIT B12 AND FOLATEon 023 Cobalamin (Vitamin B12) [Mass/Vol] 652.0 pg/mL Normal 193.0-986.0 [facility] Comment on above: Performed By: #### F ERR, B12FOL, FETIBC, VITAD ####[facility] [address] [address]Dr. Alysha Machuca FOLATE 18.30 ng/mL Normal 8.60-58.90 [facility] Comment on above: Performed By: #### F ERR, B12FOL, FETIBC, VITAD ####[facility] [address] [address]. Alysha Machuca VITAMIN D 25 OHon 02-20-2023 VIT D 25-OH 41.7 ng/mL Normal [facility] Comment on above: Performed By: #### F ERR, B12FOL, FETIBC, VITAD ####[facility] [address] [address]Dr. Alysha Machuca VIT D RANGES SEE BELOW Normal [facility] Comment on above: Result Comment: <20 ng/mL Vit D deficient 20 - <30 ng/mL Vit D insufficient 30 - 100 ng/mL Vit D sufficient >100 ng/mL Potential Toxicity Performed By: #### F ERR, B12FOL, FETIBC, VITAD ####[facility] [address] [address]Dr. Alysha Machuca XR KUB 1 VIEWon 02-20-2023 [...] CHENEY Date: 2023-02-20 15:57 Normal [facility] Office Visit (Cardiology)on 12-06-2022 Follow-up visit Diagnoses/Problems Assessed Anticoagulated (V58.61) (Z79.01) Hyperlipidemia (272.4) (E78.5) Non-ischemic cardiomyopathy (425.4) (I42.8) Paroxysmal atrial fibrillation (427.31) (I48.0) Class 2 obesity with body mass index (BMI) of 36.0 to 36.9 in adult (278.00,V85.36) (E66.9,Z68.36) Never a smoker Orders Class 2 obesity with body mass index (BMI) of 36.0 to 36.9 in adult Healthy Weight Tips; Status:Complete; Done: 07Xst8505 Some eating tips that can help you lose weight.; Status:Complete; Done: 72Dhf4063 Hyperlipidemia Renew: Lovastatin 10 MG Oral Tablet; TAKE 1 TABLET DAILY DIRECTED Paroxysmal atrial fibrillation IO EKG Electrocardiogram- 12 Lead; Status:Complete; Done: 51Kvu4397 SocHx: Never a smoker Tobacco Use Screening; Status:Complete; Done: 35Yli1150 Patient Instructions Please bring all medicines, vitamins, [...] MG Oral TabletTAKE 1 TABLET Twice daily [place] 3 [place] DIRECTED. Tylenol Arthritis Ext Relief [...] negative for complaint. Vitals Vital Signs Recorded: 68Slg6072 01:27PM Heart Rate43, Apical Mrvqhkdu449, RUE, Sitting Omxglvpyb78, RUE, Sitting Height5 ft 5 in Bprbgj146 lb BMI Xlhiwatuhp07.94 kg/m2 BSA Calculated2.07 Tobacco Useb) No PHQ-2 [...] DO Work Phone: [facility] [employer] VEINSon 0 11-03-2022 [facility] [employer] Patient: MIKY FUENTES Exam Date: 11/03/2022 : 1950 Gender:F Ordering : DR WILLARD SHARMA M.D. Admission #: [id number] Family : Order #: [id number] CLICK HERE TO VIEW EXAM RADIOLOGY REPORT PROCEDURE: VEIN CENTER INJECTION SCLEROSING SOLUTION MULTIPLE VEINS SAME COMPARISON: VC INJ [facility]CL [employer] VEINS, 10/27/2022. VC INJ [facility]CL [employer] VEINS, 10/16/2022. INDICATIONS: Pain co-occurrent and due [...] Sharma MD on 11/03/2022 at 12:37 Normal [facility] XR KUB 1 VIEWon 11-03-2022 XR [...] by: KYLE CHENEY Date: 2022-11-03 12:52 Normal [facility] VC INJ SCL [employer]GER VEINSon 1 VC INJ [employer]CL [employer] VEINS Patient: MIKY FUENTES Exam Date: 10/27/2022 : 1950 Gender:F Ordering : DR WILLARD SHARMA M.D. Admission #: [id number] Family : Order #: [id number] CLICK HERE TO VIEW EXAM RADIOLOGY REPORT PROCEDURE: VEIN CENTER INJECTION SCLEROSING SOLUTION MULTIPLE VEINS SAME COMPARISON: VC INJ [facility]CL [employer] VE[employer], 10/16/2022. [facility] INJ [facility]CL [employer] VEINS, 10/06/2022. INDICATIONS: Pain co-occurrent and due [...] on 10/27/2022 at 11:45 Approved by: Willard Sahrma MD on 10/27/2022 at 11:46 Normal [facility] VC [employer]J [employer]CL [employer]GER VEINSon 1 12-17-2021 VC INJ [employer]CL [employer] VEINS Patient: MIKY FUENTES Exam Date: 10/16/2022 : 1950 Gender:F Ordering : DR WILLARD SHARMA M.D. Admission #: [id number] Family : Order #: [id number] CLICK HERE TO VIEW EXAM RADIOLOGY REPORT PROCEDURE: VEIN CENTER INJECTION SCLEROSING SOLUTION MULTIPLE VEINS SAME COMPARISON: VC INJ [facility]CL [employer] VEINS, 10/06/2022. INDICATIONS: Pain co-occurrent and due [...] on 10/17/2022 at 08:12 Normal [facility] CREATININEon 10-10-2022 Creatinine [Mass/Vol] 1.11 mg/dL Critically high 0.55-1.02 [facility] Comment on above: Performed By: #### C AIYANA ####[facility] [address] [address]DrMaite Machuca EGFR-AF TUVALUAN 59 mL/min/1.73m2 Critically low >=60 [facility] Comment on above: Performed By: #### C AIYANA ####[facility] [address] [address]DrMaite Machuca EGFR-NON AF TUVALUAN 48 mL/min/1.73m2 Critically low >=60 [facility] Comment on above: Performed By: #### C AIYANA ####[facility] [address] [place], [place] [address]BuMaite Machuca VC INJ [employer]NAGER VEINSon 1 12-07-2021 VC INJ [employer] VEINS Patient: MIKY FUENTES Exam Date: 10/06/2022 : 1950 Gender:F Ordering : DR WILLARD SHARMA M.D. Admission #: [id number] Family : Order #: [id number] CLICK HERE TO VIEW EXAM RADIOLOGY REPORT [...] on 10/06/2022 at 13:45 Normal [facility] VC CONSULT FOLLOWUPon 2021 VC CONSULT FOLLOWUP Patient: MIKY FUENTES Exam Date: 09/26/2022 : 1950 Gender:F Ordering : DR WILLARD SHARMA M.D. Admission #: [id number] Family : Order #: [id number] CLICK HERE TO VIEW EXAM RADIOLOGY REPORT [...] Cheney M.D. on 09/26/2022 at 15:46 Normal [facility] VC EXT VENOUS RT LIMITEDon 1 11-26-2021 VC EXT VENOUS RT LIMITED Patient: MIKY FUENTES Exam Date: 09/26/2022 : 1950 Gender:F Ordering : DR WILLARD SHARMA M.D. Admission #: [id number] Family : Order #: [id number] CLICK HERE TO VIEW EXAM RADIOLOGY REPORT [...] Cheney M.D. on 09/26/2022 at 15:44 Normal [facility] VC INJ FOAM SCLERO W US MLTI on 09-20-2022 VC INJ FOAM SCLERO W US MLTI Patient: MIKY FUENTES Exam Date: 09/20/2022 : 1950 Gender:F Ordering : DR WILLARD SHARMA M.D. Admission #: [id number] Family : Order #: [id number] CLICK HERE TO VIEW EXAM RADIOLOGY REPORT [...] Kyle Cheney M.D. on 09/20/2022 at 15:43 [facility] CONSULT FOLLOWUPon 2021 VC CONSULT FOLLOWUP Patient: MIKY FUENTES Exam Date: 09/07/2022 : 1950 Gender:F Ordering : DR WILLARD SHARMA M.D. Admission #: [id number] Family : Order #: [id number] CLICK HERE [...] on 09/07/2022 at 13:04 Normal [facility] VC EXT VENOUS LT LIMITEDon 1 11-07-2021 VC EXT VENOUS LT LIMITED Patient: MIKY FUENTES Exam Date: 09/07/2022 : 1950 Gender:F Ordering : DR WILLARD SHARMA M.D. Admission #: [id number] Family : Order #: [id number] CLICK HERE TO VIEW EXAM RADIOLOGY REPORT [...] on 09/07/2022 at 11:59 Normal [facility] CBC AUTO DIFFon 09-01-2022 BASO # 0.0 103/ul Normal 0.0-0.1 [facility] Comment on above: Performed By: #### C BC #### [facility] [address] [place] [address] Dr. Alysha Machuca Basophils/100 WBC (Bld) 0.6 % Normal 0.2-2.0 [facility] Comment on above: Performed By: #### C BC #### [facility] [address] [place] [address] Dr. Alysha Machuca EO # 0.3 103/ul Normal 0.0-0.7 [facility] Comment on above: Performed By: #### C BC #### [facility] [address] [place] [address] Dr. Alysha Machuca Eosinophils/100 WBC (Bld) 4.3 % Normal 0.9-7.0 [facility] Comment on above: Performed By: #### C BC #### [facility] [address] [place] [address] Dr. Alysha Machuca Erythrocyte distribution width (RBC) [Ratio] 14.6 % Normal 11.0-15.0 [facility] Comment on above: Performed By: #### C BC #### [facility] [address] [place] [address] Dr. Alysha Machuca Hematocrit (Bld) [Volume fraction] 39.7 % Normal 36.0-48.0 [facility] Comment on above: Performed By: #### C BC #### [facility] [address] [place] [address] Dr. Alysha Machuca Hemoglobin (Bld) [Mass/Vol] 13.1 g/dL Normal 12.0-16.0 [facility] Comment on above: Performed By: #### C BC #### [facility] [address] [place] [address] Dr. Alysha Machuca IG # 0.01 10e3/ul Normal 0.00-0.03 [facility] Comment on above: Performed By: #### C BC #### [facility] [address] [place] [address] Dr. Alysha Machuca IG % 0.2 % Normal 0.0-0.5 [facility] Comment on above: Performed By: #### C BC #### [facility] [address] [place] [address] Dr. Alysha Machuca LYMPH # 1.9 103/ul Normal 1.2-3.8 [facility] Comment on above: Performed By: #### C BC #### [facility] [address] [place] [address] Dr. Alysha Machuca Lymphocytes/100 WBC (Bld) 29.5 % Normal 20.5-60.0 [facility] Comment on above: Performed By: #### C BC #### [facility] [address] [place] [address] Dr. Alysha Machuca MANUAL DIFF REQ NO Normal [facility] Comment on above: Performed By: #### C BC #### [facility] [address] [place] [address] Dr. Alysha Machuca MCH (RBC) [Entitic mass] 29.8 pg Normal 26.7-34.0 [facility] Comment on above: Performed By: #### C BC #### [facility] [address] [place] [address] Dr. Alysha Machuca MCHC (RBC) [Mass/Vol] 33.0 g/dL Normal 29.9-35.2 [facility] Comment on above: Performed By: #### C BC #### [facility] [address] [place] [address] Dr. Alysha Machuca MCV (RBC) [Entitic vol] 90.2 fL Normal 81.0-99.0 [facility] Comment on above: Performed By: #### C BC #### [facility] [address] [place] [address] Dr. Alysha Machuca MONO # 0.5 103/ul Normal 0.3-0.8 [facility] Comment on above: Performed By: #### C BC #### [facility] [address] [place] [address] Dr. Alysha Machuca Monocytes/100 WBC (Bld) 7.0 % Normal 1.7-12.0 [facility] Comment on above: Performed By: #### C BC #### [facility] [address] [place] [address] Dr. Alysha Machuca NEUT # 3.8 103/ul Normal 1.4-6.5 [facility] Comment on above: Performed By: #### C BC #### [facility] [address] [place] [address] Dr. Alysha Machuca Neutrophils/100 WBC (Bld) 58.4 % Normal 43.0-75.0 [facility] Comment on above: Performed By: #### C BC #### [facility] [address] [place] [address] Dr. Alysha Machuca Platelet mean volume (Bld) [Entitic vol] 9.5 fL Normal 9.5-13.5 [facility] Comment on above: Performed By: #### C BC #### [facility] [address] [place] [address] Dr. Alysha Machuca PLT 235 103/ul Normal 150-450 [facility] Comment on above: Performed By: #### C BC #### [facility] [address] [place] [address] Dr. Alysha Machuca RBC 4.40 106/ul Normal 4.20-5.40 [facility] Comment on above: Performed By: #### C BC #### [facility] [address] [address] [address] Alysha Machuca WBC 6.6 103/ul Normal 4.0-11.0 [facility] Comment on above: Performed By: #### C BC #### [facility] [address] [address] [address] Alysha Machuca PROF CHEM 8 (BAS METB)on Anion gap [Moles/Vol] 7.7 mmol/L Normal [facility] Comment on above: Performed By: #### B MP ####[facility] [address] [address]DrMaite Machuca Calcium [Mass/Vol] 9.8 mg/dL Normal 8.5-10.1 [facility] Comment on above: Performed By: #### B MP ####[facility] [address] [address]DrMaite Machuca Chloride [Moles/Vol] 104 mmol/L Normal 98-107 [facility] Comment on above: Performed By: #### B MP ####[facility] [address] [address]DrMaite Machuca CO2 [Moles/Vol] 29.2 mmol/L Normal 21.0-32.0 [facility] Comment on above: Performed By: #### B MP ####[facility] [address] [address]DrMaite Machuca Creatinine [Mass/Vol] 1.05 mg/dL Critically high 0.55-1.02 [facility] Comment on above: Performed By: #### B MP ####[facility] [address] [address]DrMaite Machuca EGFR-AF TUVALUAN >60 Normal >=60 [facility] Comment on above: Performed By: #### B MP ####[facility] [address] [address]Dr. Alysha Machuca EGFR-NON AF TUVALUAN 52 mL/min/1.73m2 Critically low >=60 [facility] Comment on above: Performed By: #### B MP ####[facility] [address] [id number]. Alysha Machuca Glucose [Mass/Vol] 107 mg/dL Critically high 74-106 [facility] Comment on above: Performed By: #### B MP ####[facility] [address] [id number]. Alysha Sven Potassium [Moles/Vol] 3.9 mmol/L Normal 3.5-5.1 [facility] Comment on above: Performed By: #### B MP ####[facility] [address] [address]Dr. Alysha Sven Sodium [Moles/Vol] 137 mmol/L Normal 136-145 [facility] Comment on above: Performed By: #### B MP ####[facility] [address] [address]Dr. Alysha Sven Urea nitrogen [Mass/Vol] 16.0 mg/dL Normal 7.0-18.0 [facility] Comment on above: Performed By: #### B MP ####[facility] [address] [id number]. Alysha Sven Urea nitrogen/Creatini ne [Mass ratio] 15.2 mg/mg Normal [facility] Comment on above: Performed By: #### B MP ####[facility] [address] [address]Dr. Alysha Sven VC INJ FOAM SCLERO W US MLTI on 08-31-2022 VC INJ FOAM SCLERO W US MLTI Patient: MIKY FUENTES Exam Date: 08/31/2022 : 1950 Gender:F Ordering : DR WILLARD SHARMA M.D. Admission #: [id number] Family : Order #: [id number] CLICK HERE TO VIEW EXAM RADIOLOGY REPORT [...] (more content not included)... Normal [facility] VC CONSULT FOLLOWUPon 2021 VC CONSULT FOLLOWUP Patient: MIKY FUENTES Exam Date: 08/22/2022 : 1950 Gender:F Ordering : DR WILLARD SHARMA M.D. Admission #: [id number] Family : Order #: [id number] CLICK HERE TO VIEW EXAM RADIOLOGY REPORT [...] Sharma MD on 08/22/2022 at 10:45 Normal [facility] VC EXT VENOUS RT LIMITEDon 1 VC EXT VENOUS RT LIMITED Patient: MIKY FUENTES Exam Date: 08/22/2022 : 1950 Gender:F Ordering : DR WILLARD SHARMA M.D. Admission #: [id number] Family : Order #: [id number] CLICK HERE TO VIEW EXAM RADIOLOGY REPORT [...] Willard Sharma MD on 08/22/2022 at 10:21 [facility] VC INJ FOAM SCLERO W US MLTI on 08-17-2022 VC INJ FOAM SCLERO W US MLTI Patient: MIKY FUENTES Exam Date: 08/17/2022 : 1950 Gender:F Ordering : DR WILLARD SHARMA M.D. Admission #: [id number] Family : Order #: [id number] CLICK HERE TO VIEW EXAM RADIOLOGY REPORT [...] (more content not included)... Normal [facility] VC CONSULT FOLLOWUPon 2021 VC CONSULT FOLLOWUP Patient: MIKY FUENTES Exam Date: 08/07/2022 : 1950 Gender:F Ordering : DR WILLARD SHARMA M.D. Admission #: [id number] Family : Order #: [id number] CLICK HERE TO VIEW EXAM RADIOLOGY REPORT [...] Sharma MD on 08/07/2022 at 13:31 Normal [facility] VC EXT VENOUS LT LIMITEDon 1 VC EXT VENOUS LT LIMITED Patient: MIKY FUENTES Exam Date: 08/07/2022 : 1950 Gender:F Ordering : DR WILLARD SHARMA M.D. Admission #: [id number] Family : Order #: [id number] CLICK HERE TO VIEW EXAM RADIOLOGY REPORT [...] Sharma MD on 08/07/2022 at 12:01 Normal [facility] VC INJ FOAM SCLERO W US MLTI on 08-01-2022 VC INJ FOAM SCLERO W US MLTI Patient: MIKY FUENTES Exam Date: 08/01/2022 : 1950 Gender:F Ordering : DR WILLARD SHARMA M.D. Admission #: [id number] Family : Order #: [id number] CLICK HERE TO VIEW EXAM RADIOLOGY REPORT [...] (more content not included)... Normal [facility] VC CONSULT FOLLOWUPon 2021 VC CONSULT FOLLOWUP Patient: MIKY FUENTES Exam Date: 07/17/2022 : 1950 Gender:F Ordering : DR WILLARD SHARMA M.D. Admission #: [id number] Family : Order #: [id number] CLICK HERE TO VIEW EXAM RADIOLOGY REPORT [...] Cheney M.D. on 07/17/2022 at 12:18 Normal [facility] VC EXT VENOUS RT LIMITEDon 0 07-17-2022 VC EXT VENOUS RT LIMITED Patient: MIKY FUENTES Exam Date: 07/17/2022 : 1950 Gender:F Ordering : DR WILLARD SHARMA M.D. Admission #: [id number] Family : Order #: [id number] CLICK HERE TO VIEW EXAM RADIOLOGY REPORT [...] Kyle Cheney M.D. on 07/17/2022 at 12:14 [facility] VC INJ FOAM SCLERO W US MLTI on 07-12-2022 VC INJ FOAM SCLERO W US MLTI Patient: MIKY FUENTES Exam Date: 07/12/2022 : 1950 Gender:F Ordering : DR WILLARD SHARMA M.D. Admission #: [id number] Family : Order #: [id number] CLICK HERE TO VIEW EXAM RADIOLOGY REPORT [...] (more content not included)... Normal [facility] VC CONSULT FOLLOWUPon 2021 VC CONSULT FOLLOWUP Patient: MIKY FUENTES Exam Date: 06/30/2022 : 1950 Gender:F Ordering : DR WILLARD SHARMA M.D. Admission #: [id number] Family : Order #: [id number] CLICK HERE TO VIEW EXAM RADIOLOGY REPORT [...] Sharma MD on 06/30/2022 at 13:21 Normal [facility] VC EXT VENOUS LT LIMITEDon 0 06-30-2022 VC EXT VENOUS LT LIMITED Patient: MIKY FUENTES Exam Date: 06/30/2022 : 1950 Gender:F Ordering : DR WILLARD SHARMA M.D. Admission #: [id number] Family : Order #: [id number] CLICK HERE TO VIEW EXAM RADIOLOGY REPORT [...] Sharma MD on 06/30/2022 at 13:02 Normal [facility] ALBUMIN, RANDOM URINE W/CREA TININEon 06-26-2022 ALBUMIN, URINE 12.7 mg/dL Normal See Note: [facility] Comment on above: Result Comment: Refe rence Range: Reference Range Not established Performed By: #### 7 600, 496, 36458, 6517 #### [facility] [address], [address] [place] [address] [employer] Worker: Marek Subramanian MD ALBUMIN/CREATININ E RATIO, [...] category. Performed By: #### 7 600, 496, 60919, 6517 #### [facility] [place] [address] [employer] Worker: Marek Subramanian MD Creatinine (U) [Mass/Vol] 205 mg/dL Normal 20-275 [facility] Comment on above: Performed By: #### 7 600, 496, 27529, 6517 #### [facility] [place] [address] [employer] Worker: Marek Subramanian MD [facility] 06-26-2022 Albumin [Mass/Vol] 3.9 g/dL Normal 3.6-5.1 [facility] Comment on above: Performed By: #### 7 600, 496, 19344, 6517 #### [facility] [place] [address] [employer] Worker: Marek Subramanian MD Albumin/Globulin [Mass ratio] 1.4 {ratio} Normal 1.0-2.5 [facility] Comment on above: Performed By: #### 7 600, 496, 48983, 6517 #### [facility] [place] [address] [employer] Worker: Marek Subramanian MD ALP [Catalytic activity/Vol] 106 U/L Normal 37-153 [facility] Comment on above: Performed By: #### 7 600, 496, 25197, 6517 #### [facility] [place] [address] [employer] Worker: Marek Subramanian MD ALT [Catalytic activity/Vol] 10 U/L Normal 6-29 [facility] Comment on above: Performed By: #### 7 600, 496, 29819, 6517 #### [facility] of [place] [address] [employer] Worker: Marek Subramanian MD AST [Catalytic activity/Vol] 13 U/L Normal 10-35 [facility] Comment on above: Performed By: #### 7 600, 496, 68649, 6517 #### [facility] of [place] [address] [employer] Worker: Marek Subramanian MD Bilirubin [Mass/Vol] 0.8 mg/dL Normal 0.2-1.2 [facility] Comment on above: Performed By: #### 7 600, 496, 58919, 6517 #### [facility] [place] [address] [employer] Worker: Marek Subramanian MD BUN/CREATININE RATIO NOT APPLICABLE Normal 6-22 [facility] Comment on above: Performed By: #### 7 600, 496, 33508, 6517 #### [facility] [place] [address] [employer] Worker: Marek Subramanian MD Calcium [Mass/Vol] 9.9 mg/dL Normal 8.6-10.4 [facility] Comment on above: Performed By: #### 7 600, 496, 16808, 6517 #### [facility] of [place] [address] [employer] Worker: Marek Subramanian MD Chloride [Moles/Vol] 109 mmol/L Normal 98-110 [facility] Comment on above: Performed By: #### 7 600, 496, 73212, 6517 #### [facility] [place] [address] [employer] Worker: Marek Subramanian MD CO2 [Moles/Vol] 24 mmol/L Normal 20-32 [facility] Comment on above: Performed By: #### 7 600, 496, 09785, 6517 #### [facility] [place] [address] [employer] Worker: Marek Subramanian MD Creatinine [Mass/Vol] 0.88 mg/dL Normal 0.60-1.00 [facility] Comment on above: Performed By: #### 7 600, 496, 92328, 6517 #### [facility] [place] [address] [employer] Worker: Marek Subramanian MD GFR/1.73 sq M.predicted among non-blacks MDRD (S/P/Bld) [Vol rate/Area] 70 mL/min/{1.73_m2} Normal > OR = 60 [facility] Comment on above: Result Comment: The eGFR is based on the CKD-EPI 2020 equation. To calculate the new eGFR from a previous Creatinine or Cystatin C result, go to https://www.kidney.org/professionals/ kdoqi/gfr%5Fcalculator Performed By: #### 7 600, 496, 42150, 6517 #### [facility] [place] [address] [employer] Worker: Marek Subramanian MD Globulin (S) [Mass/Vol] 2.7 g/dL Normal 1.9-3.7 [facility] Comment on above: Performed By: #### 7 600, 496, 97111, 6517 #### [facility] [place] [address] [employer] Worker: Marek Subramanian MD Glucose [Mass/Vol] 91 mg/dL Normal 65-99 [facility] Comment on above: Result Comment: Fasting reference interval Performed By: #### 7 600, 496, 89755, 6517 #### [facility] [place] [address] [employer] Worker: Marek Subramanian MD Potassium [Moles/Vol] 4.0 mmol/L Normal 3.5-5.3 [facility] Comment on above: Performed By: #### 7 600, 496, 86540, 6517 #### [facility] of [address], [address] [place] [address] [employer] Worker: Marek Subramanian MD Protein [Mass/Vol] 6.6 g/dL Normal 6.1-8.1 [facility] Comment on above: Performed By: #### 7 600, 496, 30376, 6517 #### [facility] [address], [address] [place] [address] [employer] Worker: Marek Subramanian MD Sodium [Moles/Vol] 143 mmol/L Normal 135-146 [facility] Comment on above: Performed By: #### 7 600, 496, 24955, 6517 #### [facility] [address], [address] [place] [address] [employer] Worker: Marek Subramanian MD Urea nitrogen [Mass/Vol] 15 mg/dL Normal 7-25 [facility] Comment on above: Performed By: #### 7 600, 496, 70790, 6517 #### [facility] [address], [address] [place] [address] [employer] Worker: Marek Subramanian MD HEMOGLOBIN A1con 06-26-2022 [...] diagnosis of diabetes in children. According to [place] [employer] (ADA) guidelines, hemoglobin A1c <7.0% represents optimal control in non- diabetic patients. Different metrics may apply to specific patient populations. Standards of Medical Care in Diabetes(ADA). Performed By: #### 7 600, 496, 31129, 6517 #### [facility] [address], [address] [place] [address] [employer] Worker: Marek Subramanian MD LIPID PANEL, STANDARDon 08- Cholesterol [Mass/Vol] 171 mg/dL Normal <200 [facility] Comment on above: Order Comment: FASTI NG:YES FASTING: YES Performed By: #### 7 600, 496, 60436, 6517 #### [facility] [address], [address] [place] [address] [employer] Worker: Marek Subramanian MD Cholesterol in HDL [Mass/Vol] 60 mg/dL Normal > OR = 50 [facility] Comment on above: Order Comment: FASTI NG:YES FASTING: YES Performed By: #### 7 600, 496, 60228, 6517 #### [facility] [address], [address] [place] [address] [employer] Worker: Marek Subramanian MD Cholesterol in LDL [...] LDL-C. Nikita SS et al. LEWIS. 2013;310(19): 1703-4430 (http://education.Propagenix.RampedMedia/faq/IQK546) Performed By: #### 7 600, 496, 93799, 6517 #### [facility] [address], [address] [place] [address] [employer] Worker: Marek Subramanian MD Cholesterol.total /Cholesterol in HDL [Mass ratio] 2.9 {ratio} Normal <5.0 [facility] Comment on above: Order Comment: FASTI NG:YES FASTING: YES Performed By: #### 7 600, 496, 62973, 6517 #### [facility] [address], [address] [place] [address] [employer] Worker: Marek Subramanian MD NON HDL CHOLESTEROL 111 mg/dL (calc) Normal <130 [facility] Comment on above: Order Comment: FASTI NG:YES FASTING: YES Result Comment: For patients with diabetes plus 1 major ASCVD risk factor, treating to a non-HDL-C goal of <100 mg/dL (LDL-C of <70 mg/dL) is considered a therapeutic option. Performed By: #### 7 600, 496, 33478, 6517 #### [facility] [address] [place] [address], [address] [employer] Worker: Marek Subramanian MD Triglyceride [Mass/Vol] 95 mg/dL Normal <150 [facility] Comment on above: Order Comment: FASTI NG:YES FASTING: YES Performed By: #### 7 600, 496, 21780, 6517 #### [facility] [address] [place] [address], [address] [employer] Worker: Marek Subramanian MD VC INJ FOAM SCLERO W US MLTI on 06-26-2022 VC INJ FOAM SCLERO W US MLTI Patient: MIKY FUENTES Exam Date: 06/26/2022 : 1950 Gender:F Ordering : DR WILLARD SHARMA M.D. Admission #: [id number] Family : Order #: [id number] CLICK HERE TO VIEW EXAM RADIOLOGY REPORT [...] vein medial distal lower leg/ankle. A large credit and collections analyst vein was occluded with manual pressure until [...] (more content not included)... Normal [facility] VC CONSULT FOLLOWUPon 2021 VC CONSULT FOLLOWUP Patient: MIKY FUENTES Exam Date: 06/19/2022 : 1950 Gender:F Ordering : DR WILLARD SHARMA M.D. Admission #: [id number] Family : Order #: [id number] CLICK HERE TO VIEW EXAM RADIOLOGY REPORT [...] on 06/19/2022 at 12:11 Approved by: Kyle Cheney M.D. on 06/19/2022 at 12:14 [facility] VC EXT VENOUS RT LIMITEDon 0 06-19-2022 VC EXT VENOUS RT LIMITED Patient: MIKY FUENTES Exam Date: 06/19/2022 : 1950 Gender:F Ordering : DR WILLARD SHARMA M.D. Admission #: [id number] Family : Order #: [id number] CLICK HERE TO VIEW EXAM RADIOLOGY REPORT [...] Cheney M.D. on 06/19/2022 at 12:11 Normal [facility] VC INJ FOAM SCLERO W US MLTI on 06-13-2022 VC INJ FOAM SCLERO W US MLTI Patient: MIKY FUENTES Exam Date: 06/13/2022 : 1950 Gender:F Ordering : DR WILLARD SHARMA M.D. Admission #: [id number] Family : Order #: [id number] CLICK HERE TO VIEW EXAM CORRECTION made [...] Kyle Cheney M.D. on 06/19/2022 at 12:17 [facility] VC CONSULT FOLLOWUPon 2021 VC CONSULT FOLLOWUP Patient: MIKY FUENTES Exam Date: 05/31/2022 : 1950 Gender:F Ordering : DR WILLARD SHARMA M.D. Admission #: [id number] Family : Order #: [id number] CLICK HERE TO VIEW EXAM RADIOLOGY REPORT [...] Cheney M.D. on 05/31/2022 at 12:18 Normal [facility] VC EXT VENOUS LT LIMITEDon 0 05-31-2022 VC EXT VENOUS LT LIMITED Patient: MIKY FUENTES Exam Date: 05/31/2022 : 1950 Gender:F Ordering : DR WILLARD SHARMA M.D. Admission #: [id number] Family : Order #: [id number] CLICK HERE TO VIEW EXAM RADIOLOGY REPORT [...] Cheney M.D. on 05/31/2022 at 12:[address] [facility] [address] ABD/PELVIS WO CONon 05-26 CT [...] by: SANTHOSH NICK Date: 2022-05-26 16:43 Normal [facility] VC ENDOVENOUS ABL 1ST V LTon 05-23-2022 VC ENDOVENOUS ABL 1ST V LT Patient: MIKY FUENTES Exam Date: 05/23/2022 : 1950 Gender:F Ordering : DR WILLARD SHARMA M.D. Admission #: [id number] Family : Order #: [id number] CLICK HERE TO VIEW EXAM RADIOLOGY REPORT [...] Cheney M.D. on 05/23/2022 at 12:34 Normal [facility] US KIDNEYSon 05-05-2022 US KIDNEYS EXAMINATION: [...] SHARMA Date: 2022-05-05 13:29 Normal [facility] XR KUB 1 VIEWon 05-05-2022 XR [...] by: KYLE CHENEY Date: 2022-05-05 15:54 Normal [facility] MAMM SCREEN 3D TANMAY CADon 05-04-2022 MG MAMM SCREEN 3D TANMAY CAD Patient: MIKY FUENTES Exam Date: 05/04/2022 : 1950 Gender:F Ordering : DR CONNOR ANAYA Admission #: [id number] Family : Order #: [id number] CLICK HERE TO VIEW EXAM RADIOLOGY REPORT [...] cancer at age 60. LOCATION: [facility] BREAST COMPOSITION: Scattered areas fibroglandular density. [...] Cheney M.D. on 05/05/2022 at 14:21 Normal [facility] VC CONSULT FOLLOWUPon 2021 VC CONSULT FOLLOWUP Patient: MIKY FUENTES Exam Date: 05/04/2022 : 1950 Gender:F Ordering : DR WILLARD SHARMA M.D. Admission #: [id number] Family : Order #: [id number] CLICK HERE TO VIEW EXAM RADIOLOGY REPORT [...] on 05/04/2022 at 11:43 Normal [facility] VC EXT VENOUS RT LIMITEDon 0 05-04-2022 VC EXT VENOUS RT LIMITED Patient: MIKY FUENTES Exam Date: 05/04/2022 : 1950 Gender:F Ordering : DR WILLARD SHARMA M.D. Admission #: [id number] Family : Order #: [id number] CLICK HERE TO VIEW EXAM RADIOLOGY REPORT [...] on 05/04/2022 at 11:17 Normal [facility] CULTURE URINEon 05-03-2022 CULTURE URINE Culture Observations : LIGHT GROWTH OF MIXED GENITAL LUDWIN. NO POTENTIAL PATHOGENS SEEN. Normal [facility] Comment on above: Performed By: #### U RCX ####[facility] [address] [place], [place] [address]NpDr. Alysha Machuca UA RANDOMon 05-03-2022 Bilirubin Ql (U) Negative Normal NEGATIVE [facility] Comment on above: Performed By: #### U A #### [facility] [address] [place] [address] Dr. Alysha Machuca Clarity (U) TURBID Abnormal CLEAR [facility] Comment on above: Performed By: #### U A #### [facility] [address] [place] [address] Dr. Alysha Machuca Color (U) RED Abnormal YELLOW [facility] Comment on above: Result Comment: Prev iously reported as: YELLOW On 05/03/2022 17:30 By CV2 Performed By: #### U A #### [facility] [address] [place] [address] Dr. Alysha Machuca Glucose Ql (U) Negative Normal NEGATIVE [facility] Comment on above: Performed By: #### U A #### [facility] [address] [place] [address] Dr. Alysha Machuca Hemoglobin Ql (U) LARGE Abnormal NEGATIVE [facility] [facility] Comment on above: Performed By: #### U A #### [facility] [address] [place] [address] Dr. Alysha Mahcuca Ketones Ql (U) Negative Normal NEGATIVE [facility] Comment on above: Performed By: #### U A #### [facility] [address] [place] [address] Dr. Alysha Machuca LEUKOCYTES Negative Normal NEGATIVE [facility] Comment on above: Performed By: #### U A #### [facility] [address] [place] [address] Dr. Alysha Machuca Nitrite Ql (U) Negative Normal NEGATIVE [facility] Comment on above: Performed By: #### U A #### [facility] [address] [place] [address] Dr. Alysha Machuca pH (U) 6.0 [pH] Normal 5-9 [facility] Comment on above: Performed By: #### U A #### [facility] [address] [place] [address] Dr. Alysha Machuca SPEC GRAVITY 1.025 Normal 1.005-<=1.025 [facility] Comment on above: Performed By: #### U A #### [facility] [address] [address] [address] Alysha Machuca UA PROTEIN 100 mg/dl Abnormal NEGATIVE/ TRACE [facility] Comment on above: Performed By: #### U A #### [facility] [id number] Alysha Machuca Urobilinogen Qn (U) 0.2 {Luis'U}/dL Normal 0.2 - 1.0 [facility] Comment on above: Performed By: #### U A #### [facility] [address] [place] [address] Dr. Alysha Machuca VC ENDOVENOUS ABL 1ST V RTon 04-26-2022 VC ENDOVENOUS ABL 1ST V RT Patient: MIKY FUENTES Exam Date: 04/26/2022 : 1950 Gender:F Ordering : DR WILLARD SHARMA M.D. Admission #: [id number] Family : Order #: [id number] CLICK HERE TO VIEW EXAM RADIOLOGY REPORT [...] on 04/26/2022 at 10:54 Approved by: Willard Shamra MD on 04/26/2022 at 10:58 Normal [facility] VC CONSULT FOLLOWUPon 2021 VC CONSULT FOLLOWUP Patient: MIKY FUENTES Exam Date: 04/13/2022 : 1950 Gender:F Ordering : DR WILLARD SHARMA M.D. Admission #: [id number] Family : Order #: [id number] CLICK HERE TO VIEW EXAM RADIOLOGY REPORT [...] Cheney M.D. on 04/13/2022 at 10:59 Normal [facility] VC EXT VENOUS LT LIMITEDon 0 04-13-2022 VC EXT VENOUS LT LIMITED Patient: MIKY FUENTES Exam Date: 04/13/2022 : 1950 Gender:F Ordering : DR WILLARD SHARMA M.D. Admission #: [id number] Family : Order #: [id number] CLICK HERE TO VIEW EXAM RADIOLOGY REPORT [...] accessory saphenous vein branches. Dictated by: Kyle Cheney M.D. on 04/13/2022 at 10:55 Approved by: Kyle Cheney M.D. on 04/13/2022 at 10:56 Normal [facility] Office Visit (Cardiology)on 03-22-2022 Follow-up visit [...] Weight Tips; Status:Complete - Retrospective Authorization; Done: [id number] Paroxysmal atrial fibrillation IO EKG Electrocardiogram- 12 Lead; Status:Complete; Done: [id number] SocHx: Never a smoker Tobacco Use Screening; Status:Complete; Done: [id number] Patient Instructions By signing my name below, [...] failure. With guideline directed therapy in the taoism of maintenance of sinus rhythm her symptoms [...] Oral TabletTake 1 tablet twice a day [place] 3 CAPSTAKE DIRECTED. Tylenol Arthritis Ext Relief [...] negative for complaint. Vitals Vital Signs Recorded: [id number] 02:06PM Heart Rate47, Apical Xsvlifvx033, RUE, Sitting Sovuthumc61, RUE, Sitting Height5 ft 5 in Wuzxia898 lb 6.4 oz BMI Sjwkkweupf11.17 kg/m2 BSA Calculated2.19 Tobacco Useb) No PHQ-2 [...] no murmurs (more content not included)... Normal [facility] Tobacco Screening.on 022 Adult depression screening assessment No -[facility] [facility] [address] DO Work Phone: Fall risk assessment a) No falls within the last year [facility] [facility] [address] DO Work Phone: Tobacco use status CP b) No -[facility] [facility] [address] DO Work Phone: VC ENDOVENOUS ABL PERFORATIN G LTon 03-22-2022 VC ENDOVENOUS ABL PERFORATING LT Patient: MIKY FUENTES Exam Date: 03/22/2022 : 1950 Gender:F Ordering : DR WILLARD SHARMA M.D. Admission #: [id number] Family : Order #: [id number] CLICK HERE TO VIEW EXAM RADIOLOGY REPORT PROCEDURE: VEIN CENTER ENDOVENOUS ABLATION VEIN LEFT LEG COMPARISON: None. INDICATIONS: Pain co-occurrent and due to varicose veins of bilateral legs I83.813 OPERATIVE REPORT: Diagnosis: Superficial venous reflux, incompetent perforating veins Procedure: Endovenous laser ablation of the left credit and collections analyst(s) Procedure: The patient was positioned supine on [...] (more content not included)... Normal [facility] KAL SCREEN, IFA, W/REFL TITE R/PATTERN [...] indicated. For additional information, please refer to http://education.Propagenix.RampedMedia/faq/JOE428 (This link is being provided for informational/ educational purposes only.) Performed By: #### 8 10, 6332, 0454, 06715, %[id number] #### [facility] [address], [address] [place], [place] [id number] [employer] Worker: Marek Subramanian MD ANTINUCLEAR ANTIBODIES TITER AND PATTERNon 10-01-2021 KAL PATTERN Nuclear, Centromere Abnormal Ques t [facility] Comment on above: Result Comment: Cent romere pattern is associated with limited cutaneous systemic sclerosis, CREST (Calcinosis, Raynaud's, Esophageal dysmotility, Sclerodactyly, Telangiectasia), primary biliary cholangitis (PBC), and other autoimmune diseases. AC-3: Centromere International Consensus on KAL Patterns (https://doi.org/10.1515/acdz-6220-3684) Performed By: #### 8 09, 8268, 4420, 02272, %[id number] #### [facility] [address], [address] [place] [address] [employer] Worker: Marek Subramanian MD KAL PATTERN Nuclear, Homogeneous Abnormal Que st Diagnostics Comment on above: Result Comment: Homo geneous pattern is associated with systemic lupus erythematosus (SLE), drug-induced lupus and juvenile idiopathic arthritis. AC-1: Homogeneous International Consensus on KAL Patterns (https://doi.org/10.1515/lona-2678-4021) Performed By: #### 8 09, 8268, 4420, 30834, %[id number] #### [facility] [address], [address] [place] [address] [employer] Worker: Marek Subramanian MD KAL TITER > OR = 1:1280 Abnormal [facility] Comment on above: Result Comment: Refe rence Range <1:40 Negative 1:40-1:80 Low Antibody Level >1:80 Elevated Antibody Level Performed By: #### 8 09, 8268, 4420, 15475, %[id number] #### [facility] [address], [address] [place], [place] [id number] [employer] Worker: Marek Subramanian MD KAL TITER 1:80 High [facility] Comment on above: Result Comment: A lo w level KAL titer may be present in pre- clinical autoimmune diseases and normal individuals. Reference Range <1:40 Negative 1:40-1:80 Low Antibody Level >1:80 Elevated Antibody Level Performed By: #### 8 09, 8268, 4420, 59053, %06700 #### [facility] [address] [address] [employer] Worker: Marek Subramanian MD C-REACTIVE PROTEINon 021 CRP [Mass/Vol] 13.4 mg/L High <8.0 [facility] Comment on above: Performed By: #### 8 09, 8268, 4420, 43826, %85846 #### [facility] [address], [address] [place] [address] [employer] Worker: Marek Subramanian MD RHEUMATOID ARTHRITIS DIAGNOS TIC PANEL 1on 10-01-2021 CYCLIC CITRULLINATED PEPTIDE (CCP) AB (IGG) <16 Normal [facility] Comment on above: Result Comment: Refe rence Range Negative: <20 Weak Positive: 20-39 Moderate Positive: 40-59 Strong Positive: >59 Performed By: #### 8 09, 8268, 4420, 98595, %57174 #### [facility] [address] [address] [employer] Worker: Marek Subramanian MD INTERPRETATION Normal [facility] Comment on above: Result Comment: These serologic results may be found in 10-20% of patients with polyarthritis that is clinically and radiologically indistinguishable from RA. Performed By: #### 8 09, 8268, 4420, 76230, %80885 #### [facility] [address] [address] [employer] Worker: Marek Subramanian MD RHEUMATOID FACTOR <14 Normal <14 [facility] Comment on above: Performed By: #### 8 09, 8268, 4420, 90973, %68756 #### [facility] [address] [address] [employer] Worker: Marek Subramanian MD SED RATE BY MODIFIED SILAS RENon 10-01-2021 SED RATE BY MODIFIED WESTERGREN 51 mm/h High < OR = 30 [facility] Comment on above: Performed By: #### 8 09, 8268, 4420, 16535, %29810 #### [facility] [address] [address] [facility], [address] [place] [address] [employer] Worker: Marek Subramanian MD Tobacco Screening.on 021 Fall risk assessment a) No falls within the last year [facility] 600 DO Work Phone: Tobacco use status [facility] b) No [facility] 600 DO Work Phone: Vital Signs Date Time Vital Sign Value Performing Clinician Facility 08-28-2024 10:39-0400 Body height 165.1 cm Carmen Lopez MD Work Phone: [facility] 08-28-2024 10:39-0400 Body mass index (BMI) [Ratio] 35.28 kg/m2 Carmen Lopez MD Work Phone: [facility] 08-28-2024 10:39-0400 Body weight 96.16 kg Carmen Lopez MD Work Phone: [facility] 08-28-2024 10:39-0400 Diastolic blood pressure 56 mm[Hg] Carmen Loepz MD Work Phone: [facility] 08-28-2024 10:39-0400 Heart rate 56 /min Carmen Lopez MD Work Phone: [facility] 08-28-2024 10:39-0400 Systolic blood pressure 122 mm[Hg] Carmen Lopez MD Work Phone: [facility] 08-18-2024 10:47-0400 Body height 162.6 cm Connor Helixis Work Phone: [employer] 08-18-2024 10:47-0400 Body mass index (BMI) [Ratio] 36.22 kg/m2 [employer] Work Phone: [employer] 08-18-2024 10:47-0400 Body temperature 97.39 [degF] Connor Tavaresng DO Work Phone: [employer] 08-18-2024 10:47-0400 Body weight 95.71 kg Connor [facility]avaresng DO [facility] 08-18-2024 10:47-0400 Diastolic blood pressure 72 mm[Hg] Connor [facility]long [facility] 08-18-2024 10:47-0400 Heart rate 64 /min Connor Tavaresng DO [facility] Phone[facility] 08-18-2024 10:47-0400 Systolic blood pressure 124 mm[Hg] Connor Tavaresng DO Work Phone: [facility] [employer] [facility] 03-06-2024 09:31-0400 Body height 165.1 cm Nick Richardson MD Work Phone: [facility] 03-06-2024 09:31-0400 Body mass index (BMI) [Ratio] 36.78 kg/m2 Nick Richardson MD Work Phone: [facility] 03-06-2024 09:31-0400 Body weight 100.25 kg Nick Richardson MD Work Phone: [facility] 03-06-2024 09:31-0400 Diastolic blood pressure 58 mm[Hg] Nick Richardson MD Work Phone: [facility] 03-06-2024 09:31-0400 Heart rate 44 /min Nick Richardson MD Work Phone: [facility] 03-06-2024 09:31-0400 Systolic blood pressure 104 mm[Hg] Nick Richardson MD Work Phone: [facility] 12-06-2022 13:27-0500 Body height 165.1 cm Connor Tavaresng Work Phone: [facility] 250 DO Work Phone: 12-06-2022 13:27-0500 Body mass index (BMI) [Ratio] 36.94 kg/m2 Connor Marinelli Furlong Work Phone: [facility] 250 DO Work Phone: 12-06-2022 13:27-0500 Body [...] Work Phone: [facility] 250 DO Work Phone: 12-06-2022 13:27-0500 Heart rate 43 /min Connor Marinelli Furlong Work Phone: [facility] 250 DO Work Phone: 12-06-2022 13:27-0500 Systolic blood pressure 130 mm[Hg] Connor Marinelli Furlong Work Phone: [facility] 250 DO Work Phone: 06-30-2022 11:43-0400 Blood Pressure Location Yehuda HASSAN [facility] 06-30-2022 11:43-0400 Diastolic blood pressure 69 mm[Hg] Yehuda HASSAN [facility] 06-30-2022 11:43-0400 Heart rate 60 /min Yehuda HASSAN [facility] 06-30-2022 11:43-0400 Respiratory rate 16 /min Yehuda HASSAN [facility] 06-30-2022 11:43-0400 Systolic blood pressure 129 mm[Hg] Yehuda HASSAN [facility] 03-22-2022 14:06-0400 Body height 165.1 cm Connor G Furlong Work Phone: [facility] 250 DO Work Phone: 03-22-2022 14:06-0400 Body mass index (BMI) [Ratio] 42.17 kg/m2 Connor G Furlong Work Phone: [facility] 250 DO Work Phone: 03-22-2022 14:06-0400 Body surface area Derived from formula 2.19 m2 Connor G Furlong Work Phone: [facility] 250 DO Work Phone: 03-22-2022 14:06-0400 Body weight 114.94 kg Connor G Furlong Work Phone: [facility] 250 DO Work Phone: 03-22-2022 14:06-0400 Diastolic blood pressure 70 mm[Hg] Connor G Furlong Work Phone: [facility] 250 DO Work Phone: 03-22-2022 14:06-0400 Heart rate 47 /min Connor G Furlong Work Phone: [facility] 250 DO Work Phone: 03-22-2022 14:06-0400 Systolic blood pressure 114 mm[Hg] Connor G Furlong Work Phone: [facility] 250 DO Work Phone: 08-16-2021 14:38-0400 Body height 165.1 cm Connor Marinelli Furlong Work Phone: [facility] [employer] 600 DO Work Phone: 08-16-2021 14:38-0400 Body mass index (BMI) [Ratio] 42.53 kg/m2 Connor G Furlong Work Phone: [facility] 600 DO Work Phone: 08-16-2021 14:38-0400 Body surface area Derived from formula 2.2 m2 Connor G Furlong Work Phone: [facility] [employer] 600 DO Work Phone: 08-16-2021 14:38-0400 Body weight 115.94 kg Connor Marinelli Furlong Work Phone: [facility] [employer] 600 DO Work Phone: 08-16-2021 14:38-0400 Diastolic blood pressure 74 mm[Hg] Connor Marinelli Furlong Work Phone: [facility] [employer] 600 DO Work Phone: 08-16-2021 14:38-0400 Heart rate 44 /min Connor Marinelli Furlong Work Phone: [facility] [employer] 600 DO Work Phone: 08-16-2021 14:38-0400 Systolic blood pressure 134 mm[Hg] Connor G Furlong Work Phone: [facility] [employer] 600 DO Work Phone: Encounters Encounter Date Encounter Type Care Provider Facility Start: 09-03-2024 End: 09-03-2024 Orders Only Connor Marinelli Furlong DO Work Phone: [facility] Start: 09-02-2024 End: 09-02-2024 Bamboo flowsheet Nany HO Work Phone: [facility] Start: 09-02-2024 End: 09-02-2024 Bamboo flowsheet Nany Swanson PA Work Phone: [facility] Start: 09-02-2024 End: 09-04-2024 [facility]phone [facility] Start: 09-02-2024 End: 09-02-2024 ambulatory NANY SWANSON Not Available Start: 09-02-2024 End: 09-02-2024 Office outpatient visit 25 minutes Nany HO Work Phone: [facility] Comment on above: Arthritis of right k nee (Primary Dx); Acute pain of right knee; Chondromalacia, patella, right Start: 08-28-2024 End: 08-28-2024 Office outpatient visit 25 minutes Carmen Lopez MD Work Phone: [facility] Comment on above: Paroxysmal atrial fi brillation (Multi) (Primary Dx); Non-ischemic cardiomyopathy (Multi); Mixed hyperlipidemia; Sinus bradycardia; High risk medication use; Class 2 obesity; BMI 35.0-35.9,adult; Never smoked tobacco Start: 08-28-2024 End: 08-28-2024 ambulatory [facility] Start: 08-19-2024 End: 08-19-2024 Orders Only Connor Anaya DO Work Phone: [facility] Start: 08-18-2024 End: 08-18-2024 ambulatory [facility] Start: 08-18-2024 End: 08-18-2024 ambulatory 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 and body mass index (BMI) of 36.0 to 36.9 in adult Start: 07-29-2024 End: 07-29-2024 Lab Drop off Radha X Orzech [facility] Start: 07-29-2024 End: 07-29-2024 ambulatory Radha X Orzech Facility:[facility] Start: 07-29-2024 End: 07-29-2024 Patient encounter procedure Radha X Orzech [facility] Start: 07-15-2024 End: 07-15-2024 ambulatory Radha X Orzech Facility:[facility] Start: 07-01-2024 End: 07-01-2024 ambulatory Radha X Orzech Facility:[facility] Start: 07-01-2024 End: 07-01-2024 Patient encounter procedure [facility] Start: 06-10-2024 End: 06-10-2024 ambulatory Radha X Orzech Facility: [facility] Start: 06-10-2024 End: 06-10-2024 Patient encounter procedure Radha X Orzech [facility] Start: 05-20-2024 End: 05-20-2024 ambulatory Radha X Orzech Facility:[facility] Start: 05-20-2024 End: 05-20-2024 Patient encounter procedure [facility] X Orzech [facility] Start: 05-16-2024 End: 05-16-2024 ambulatory [facility] Start: 05-16-2024 End: 05-16-2024 Patient encounter procedure Yehuda HASSAN [facility] Start: 03-26-2024 End: 03-26-2024 ambulatory LESVIA KEITA Not Available Start: 03-06-2024 End: 03-06-2024 Office outpatient visit 25 minutes Nick Richardson MD Work Phone: [facility] Comment on above: Mixed hyperlipidemia (Primary Dx); Paroxysmal atrial fibrillation (Multi); Non-ischemic cardiomyopathy (Multi); Never smoked tobacco; BMI 36.0-36.9,adult; Hyperlipidemia, unspecified hyperlipidemia type Start: 03-06-2024 End: 03-06-2024 ambulatory [facility] Start: 02-18-2024 End: 02-18-2024 ambulatory [facility] Start: 02-18-2024 End: 02-18-2024 ambulatory [facility] Start: 12-24-2023 End: 12-24-2023 ambulatory [facility] Start: 12-13-2023 End: 12-13-2023 ambulatory Yehuda HASSAN Facility:[facility] Start: 12-13-2023 End: 12-13-2023 Patient encounter procedure Yehuda HASSAN [facility] Start: 10-26-2023 End: 10-26-2023 ambulatory Yehuda HASSAN Facility:[facility] Start: 10-09-2023 End: 10-09-2023 ambulatory DULCE ALCAZAR Facility:[facility] Start: 03-13-[address] WILLARD Looney y:[facility] Start: 03-05-2023 End: 03-06-[address] YEHUDA HASSAN . Facility:[facility] Start: 02-20-2023 End: 02-21-2023 ambulatory DOCTOR CLAYTON Facility:[facility] Start: 12-06-2022 ambulatory Nick Richardson II Facility: Start: 12-06-2022 Office outpatient vi sit 25 minutes Connor Anaya Work Phone: [facility] 250 DO Work Phone: Start: 11-20-2022 Rx Renewal Connor Tavares ng Work Phone: [facility] 250 DO Work Phone: Start: 11-03-2022 End: [...] laboratory examination DR LESVIA MCCLAIN [facility] Start: 09-05-2022 End: 09-05-2022 Patient encounter procedure Yehuda HASSAN [facility] Start: 09-01-2022 End: 09-02-[address] CONNOR ANAYA Facility:[facility] Start: 09-01-2022 End: 09-02-2022 Encounter for preprocedural laboratory examination DR CONNOR ANAYA Facility:[facility] Start: 08-31-2022 End: 09-01-[address] CONNOR ANAYA Facility:[facility] Start: 08-22-2022 Rx Renewal Connor nj Work Phone: [facility] 250 DO Work Phone: Start: 08-22-2022 End: 08-23-[address] CONNOR ANAYA Facility:[facility] Start: 08-17-2022 End: 08-18-[address] CONNOR ANAYA Facility:[facility] Start: 08-11-2022 End: 08-11-2022 Lab Drop off DORA Wu ADAMERY [facility] Start: 08-11-2022 End: 08-11-2022 Patient encounter procedure DORA [place] INGE [facility] Start: 08-07-2022 End: 08-08-[address] WILLARD SHARMA Facility:[facility] Start: 08-01-2022 End: 08-02-[address] WILLARD SHARMA Facility:[facility] Start: 07-17-2022 End: 07-18-[address] WILLARD SHARMA Facility:[facility] Start: 07-12-2022 End: 07-13-[address] WILLARD SHARMA Facility:[facility] Start: 06-30-2022 End: 07-01-[address] WILLARD SHARMA Facility:[facility] Start: 06-30-2022 End: 06-30-2022 Patient encounter procedure Yehuda HASSAN [facility] Start: 06-26-2022 End: 06-27-[address] [...] Facility:[facility] Start: 05-03-2022 End: 05-04-2022 ambulatory [facility]CTOR [facility] Facility:[facility] Start: 04-26-2022 End: 04-27-[address] WILLARD SHARMA Facility:[facility] Start: 04-13-2022 End: 04-14-[address] WILLARD SHARMA Facility:[facility] Start: 03-22-2022 ambulatory Connor Anaya Facility: Start: 03-22-2022 Office outpatient vi sit 25 minutes Connor Anaya Work Phone: [facility] [employer] 250 DO Work Phone: Start: 03-22-2022 End: 03-23-[address] WILLARD SHARMA Facility:[facility] Start: 01-31-2022 ambulatory Connor Anaya Facility: Start: 12-07-2021 Rx Renewal Connor Marinelli Debbielo ng Work Phone: [facility] [employer] 250 DO Work Phone: Start: 08-16-2021 Office outpatient vi sit 15 minutes Connoreugenio Tavaresng Work Phone: [facility] 600 DO Work Phone: Imaging result normal Connor Joseph Butler urlong Work Phone: [facility] 250 DO Work Phone: Patient encounter status Connoreugenio Lewislong Work Phone: [facility] 600 DO Work Phone: Procedures Date Procedure [...] Td Vaccines (6 - Td or Tdap) [facility] Start: 02-20-2033 DTaP/Tdap/Td Vaccine s (3 - Td or Tdap) DTaP/Tdap/Td Vaccines (3 - Td or Tdap) [facility] Start: 12-13-2025 Screening for malignant neoplasm of colon Colon Cancer Screening 5 Year Sigmoidoscopy [facility] Comment on above: Postponed from 04/28 (Not Indicated) Start: 08-27-2025 End: 08-27-2025 Patient encounter procedure 08/27/2025 11:20 AM EDT Office Visit [place] [address] [place] [address] Carmen Lopez MD [address] [facility] [address] [place] [address] [facility] Start: 08-18-2025 Adult BMI Screening Adult BMI Screen ing [facility] Start: 08-18-2025 Depression Screening Depression Scre ening [facility] Start: 08-18-2025 Fall Risk Screening Fall Risk Screen ing [facility] Start: 08-18-2025 Tobacco Screening Tobacco Screening [facility] Start: 08-05-2025 Screening for malignant neoplasm of breast Mammogram [facility] Start: 03-25-2025 End: 03-25-2025 Patient encounter procedure 03/25/2025 1:00 PM EDT Office Visit [facility] [address] [place] [address] Jr. Lesvia Mcclain, DO [address] [facility] [address] [place] [address] [facility] Start: 02-17-2025 Adult BMI Follow Up Plan Adult BMI Follow Up Plan [facility] Start: 02-16-2025 End: 02-16-2025 Patient encounter procedure 02/16/2025 9:00 AM EDT [facility] [address] [place] [address] Connor Anaya, DO [address], [place] [address] [facility] Start: 11-04-2024 End: 11-04-2024 Patient encounter procedure 11/04/2024 11:00 AM EST Office Visit [facility] [address] [place] [id number] Jr. Lesvia Mcclain, DO [address] [facility] [address] [place] [address] [facility] Start: 09-11-2024 ambulatory Ambulatory Facility:C [id number] Start: 08-28-2024 End: 08-28-2024 Patient encounter procedure 08/28/2024 10:40 AM EDT Office Visit [address] [place] [id number] Carmen Lopez MD [address] [facility] [address] [place] [address] [facility] Start: 07-26-2024 Screening for malignant neoplasm of breast Mammogram [facility] Start: 06-29-2024 COVID-19 Vaccine ( season) COVID-19 Vaccine ( season) [facility] Start: 06-29-2024 COVID-19 Vaccine ( season) COVID-19 Vaccine ( season) [facility] Start: 06-29-2024 COVID-19 Vaccine ( season) COVID-19 Vaccine () [facility] Start: 06-29-2024 Influenza vaccination P [facility] Start: 06-21-2024 Medicare Annual Wellness Visit Medicare Annual Wellness Visit [facility] Start: 03-01-2024 COVID-19 Vaccine ( season) COVID-19 Vaccine ( season) [facility] Start: 01-29-2024 FUV, Provider: Nick Richardson, Status: Pen, Time: 11:20 AM FUV, Provider: Nick Richardson, Status: Pen, Time: 11:20 AM [facility] [place] [address] DO Work Phone: Start: 12-06-2022 FUV, Provider: Nick Richardson, Status: Pen, Time: 1:10 PM FUV, Provider: Nick Richardson, Status: Pen, Time: 1:10 PM [facility] [address] DO Work Phone: Start: 01-31-2022 FUV, Provider: Nick Sarkar, Status: Pen, Time: 2:20 PM FUV, Provider: Nick Sarkar, Status: Pen, Time: 2:20 PM [facility] [address] DO Work Phone: Start: 2010 RSV High Risk: (Elderly (60+) or Population) (1 - Risk 60-74 years 1-dose series) RSV High Risk: (Elderly (60+) or Population) (1 - Risk 60-74 years 1-dose series) [facility] Start: 2010 RSV patient s and/or patients aged 60+ years (1 - 1-dose 60+ series) RSV patients and/or patients aged 60+ years (1 - 1-dose 60+ series) [facility] Start: 1968 Diabetes mellitus screening Diabetes Screening [facility] Start: 1968 Diabetic foot examination Diabetic Foot Exam [facility] Start: 1968 Hepatitis C screening Hepatitis C Sc reening [facility] Start: 1950 Glaucoma screening Diabetic Op hthalmology Exam [facility] Start: 1950 Lipid panel Lipid Panel [facility] Start: 1950 Medicare Annual Wellness Visit Medicare Annual Wellness Visit (AWV) [facility] Start: 1950 Screening for malignant neoplasm of colon [facility] Start: 1950 Screening for osteoporosis Bone Density Scan [facility] Start: 1950 Thyroid stimulating hormone measurement TSH Level [facility] Immunizations Immunization Date Immunization Notes Care Provider Fa cility 11-01-2023 Influenza, High-dose , Quadrivalent Connor Chaitanyang DO Work Phone: [facility] [employer] [facility] 11-01-2023 influenza virus vacc ine, unspecified formulation Connor LewisMile High [employer]clem DO Work Phone: [facility] 02-20-2023 tetanus toxoid, redu mariano diphtheria toxoid, and acellular pertussis vaccine, adsorbed [employer] [facility] 10-15-2022 Fluzone High-Dose Quadrivalent 0.7 ML Intramuscular Suspension Prefilled Syringe Connoreugenio Anaya Work Phone: [facility] [employer] 250 DO Work Phone: 10-15-2022 influenza virus vacc ine, unspecified formulation Yehuda WISE s.r[employer]l [facility] 10-15-2022 influenza, high dose seasonal, preservative-free Nick Richardson MD Work Phone: [facility] Work Phone: 04-29-2022 Comirnaty 30 MCG/0.3 ML Intramuscular Suspension Connor G Debbielong Work Phone: [facility] [employer] 250 DO Work Phone: 04-29-2022 COVID-19, mRNA, LNP- S, PF, 100mcg/0.5mL Dose Connor Anaya DO Work Phone: [facility] 04-29-2022 SARS-CoV-2 mRNA (cnyladuouqc-ittf-indqwj e) vaccine Yehuda HASSAN [facility] 09-08-2021 influenza virus vacc ine, unspecified formulation Yehuda HASSAN [facility] 08-29-2021 Fluzone High-Dose Quadrivalent 0.7 ML Intramuscular Suspension Prefilled Syringe Connor Anaya Work Phone: [facility] [address] DO Work Phone: 08-29-2021 influenza virus vacc ine, unspecified formulation Yehuda HASSAN [facility] 08-29-2021 influenza, high dose seasonal, preservative-free Nick Richardson MD Work Phone: [facility] Work Phone: 08-29-2021 Pfizer-BioNTech COVI D-19 Vacc 30 MCG/0.3ML Intramuscular Suspension Connor Anaya Work Phone: [facility] 12-23-2020 Pfizer-BioNTech COVI D-19 Vacc 30 MCG/0.3ML Intramuscular Suspension Connor Tavaresng Work Phone: [facility] 12-01-2020 Pfizer-BioNTech COVI D-19 Vacc 30 MCG/0.3ML Intramuscular Suspension Connor Lewisng Work Phone: [facility] 09-13-2020 pneumococcal polysaccharide vaccine, 23 valent Connor Debbieclem Work Phone: [facility] 09-03-2020 influenza virus vacc ine, unspecified formulation [email or web address] [facility] 09-03-2020 influenza, high dose seasonal, preservative-free Nick Richardson MD Work Phone: [facility] Work Phone: 09-03-2020 influenza, injectabl e, quadrivalent, contains preservative Connor G Furlong Work Phone: [facility] 600 DO Work Phone: 08-29-2020 influenza virus vacc ine, unspecified formulation [employer] [facility] 08-29-2020 influenza, high dose seasonal, preservative-free Connor G Furlong Work Phone: [facility] 250 DO Work Phone: 08-29-2020 influenza, injectabl e, quadrivalent, contains preservative Connor Furlong DO Work Phone: [facility] 08-29-2020 pneumococcal polysaccharide vaccine, 23 valent Connor G Furlong Work Phone: [facility] 08-11-2020 influenza virus vacc ine, unspecified formulation [email or web address] [facility] 08-11-2020 influenza, seasonal, injectable Connor G Furlong Work Phone: [facility] 600 DO Work Phone: 07-29-2020 influenza virus vacc ine, unspecified formulation [email or web address] [facility] 07-29-2020 influenza, seasonal, injectable Connor G Furlong Work Phone: [facility] 250 DO Work Phone: 09-02-2019 influenza virus vacc ine, unspecified formulation Yehuda HASSAN [facility] 09-02-2019 influenza, high dose seasonal, preservative-free Connor G Furlong Work Phone: [facility] DO Work Phone: 08-29-2019 influenza virus vacc ine, unspecified formulation Connor G Furlong Work Phone: [facility] 08-29-2019 influenza, seasonal, injectable Connor Furlong DO Work Phone: [facility] 08-11-2019 influenza virus vacc ine, unspecified formulation Yehuda HASSAN [facility] 06-17-2019 zoster vaccine recombinant Connor G Furlong Work Phone: [facility] 05-29-2019 zoster vaccine recombinant Connor G Furlong Work Phone: [facility] 04-15-2019 zoster vaccine recombinant Connor G Furlong Work Phone: [facility] 03-29-2019 zoster vaccine recombinant Connor G Furlong Work Phone: [facility] 08-29-2018 influenza virus vacc ine, unspecified formulation Connor G Furlong [facility] Phone: [facility] DO Work Phone: 09-27-2017 influenza virus vacc ine, unspecified formulation Yehuda HASSAN [facility] 09-27-2017 Influenza, injectabl e, Madin Ese Canine Kidney, preservative free, quadrivalent Connor G Furlong Work Phone: [facility] 600 DO Work Phone: 09-26-2017 influenza virus vacc ine, unspecified formulation Connor G Furlong Work Phone: [facility] 250 DO Work Phone: 10-19-2016 influenza virus vacc ine, unspecified formulation Yehuda HASSAN [facility] 10-19-2016 seasonal influenza, intradermal, preservative free Connor G Furlong Work Phone: [facility] 600 DO Work Phone: 10-06-2016 influenza virus vacc ine, unspecified formulation Yehuda HASSAN [facility] 10-06-2016 influenza, seasonal, injectable, preservative free Connor G Furlong Work Phone: [facility] 600 DO Work Phone: 04-10-2016 pneumococcal conjuga te vaccine, 13 valent Connor G Furlong Work Phone: [facility] 04-06-2016 pneumococcal conjuga te vaccine, 13 valent Yehudagerry HASSAN [facility] 08-07-2014 influenza virus vacc ine, unspecified formulation Connor G Furlong Work Phone: [facility] 250 DO Work Phone: 08-07-2014 Influenza, High-dose , Quadrivalent Connor Furlong DO Work Phone: [facility] 08-07-2014 influenza, unspecifi ed formulation Yehudagerry HASSAN [facility] 07-29-2014 influenza virus vacc ine, unspecified formulation Connor G Furlong Work Phone: [facility] 250 DO Work Phone: 07-29-2014 pneumococcal polysaccharide vaccine, 23 valent Connor Marinelli Furlong Work Phone: [facility] 10-02-2013 pneumococcal conjuga te vaccine, 13 valent Connor Marinelli Furlong Work Phone: [facility] 02-14-2013 zoster vaccine, live Connor Lewislong Work Phone: [facility] 10-29-2012 influenza virus vacc ine, unspecified formulation Connor Lewislong Work Phone: [facility] 250 DO Work Phone: 10-29-2012 pneumococcal polysaccharide vaccine, 23 valent Connor Marinelli Furlong Work Phone: [facility] 250 DO Work Phone: 10-29-2010 pneumococcal polysaccharide vaccine, 23 valent Nick Richardson MD Work Phone: [facility] Work Phone: 02-21-2010 pneumococcal polysaccharide vaccine, 23 valent Connor Marinelli Furlong Work Phone: [facility] 02-21-2010 tetanus toxoid, redu mariano diphtheria toxoid, and acellular pertussis vaccine, adsorbed Connor Lewisng Work Phone: [facility] 12-20-2009 novel influenza-H1N1 -09, preservative-free, injectable Connor Lewislong Work Phone: [facility] 600 DO Work Phone: 11-29-2009 novel influenza-H1N1 -09, preservative-free, injectable Connor [facility]long [facility] Work Phone: 09-06-1999 TD(adult) unspecifie d formulation; Translations: [Td(adult) unspecified formulation] Connor Anaya Work Phone: [facility] 09-06-1999 tetanus and diphther ia toxoids, adsorbed, preservative free, for adult use (2 Lf of tetanus toxoid and 2 Lf of diphtheria toxoid) Connor Anaya DO Work Phone: [facility] influenza virus vacc ine, unspecified formulation Connor Anaya Work Phone: [facility] DO Work Phone: Comment on above: 2010Jul 2012 pneumococcal polysaccharide vaccine, 23 valent Connor TavaresRecycling Angel Work Phone: [facility] [employer] DO Work Phone: Comment on above: 2010 Payers Date Payer Category Payer Private Health Insurance [facility] [id number] 5 2015 Managed Care Other (unspecified) [facility] [id number] 2015 Medicare [id number] .[id number] 2015 Miscellaneous or Other [facility] [id number] 5 2015 Unknown 2015 Unknown [id number] 1959 Medicare [id number] 1959 Unknown [id number] 1950 Unknown [id number] 2.16840.1.362758.3.579 .2.356 1950 Unknown [id number] 2.16840.1.403757.3.579 .2.356 1950 Unknown [id number] 2.16.840.1.680167.3.579 .2.356 1950 Unknown [id number] 2.16.840.1.143779.3.579 .2.593 1950 Unknown [id number] 2.16.840.1.320156.3.579 .2.593 1950 Unknown [id number] 2.16.840.1.773085.3.579 .2.593 1950 Unknown [id number] 2.16.840.1.036398.3.579 .2.593 1950 Unknown [id number] 2.16.840.1.046043.3.579 .2.593 1950 Unknown [id number] 2.16.840.1.170710.3.579 .2.593 1950 Unknown [id number] 2.16.840.1.218754.3.579 .2.593 1950 Unknown [id number] 2.16.840.1.345349.3.579 .2.593 1950 Unknown [id number] 2.16.840.1.835362.3.579 .2.593 1950 Unknown [id number] 2.16.840.1.239640.3.579 .2.593 1950 Unknown [id number] 2.16840.1.109775.3.579 .2.593 1950 Unknown [id number] 2.16.840.1.621011.3.579 .2.593 1950 Unknown [id number] 2.16.840.1.316946.3.579 .2.593 1950 Unknown [id number] 2.16.840.1.102127.3.579 .2.593 1950 Unknown [id number] 2.16.840.1.226447.3.579 .2.593 1950 Unknown [id number] 2.16.840.1.371959.3.579 .2.593 1950 Unknown [id number] 2.16.840.1.998810.3.579 .2.593 1950 Unknown [id number] 2.16.840.1.294874.3.579 .2.593 1950 Unknown [id number] 2.16.840.1.237706.3.579 .2.593 1950 Unknown [id number] 2.16.840.1.282685.3.579 .2.593 1950 Unknown [id number] 2.16.840.1.172595.3.579 .2.593 1950 Unknown [id number] 2.16.840.1.354682.3.579 .2.593 1950 Unknown [id number] 2.16.840.1.029616.3.579 .2.593 1950 Unknown [id number] 2.16.840.1.988755.3.579 .2.593 1950 Unknown [id number] 2.16.840.1.194214.3.579 .2.593 1950 Unknown [id number] 2.16.840.1.976125.3.579 .2.593 1950 Unknown [id number] 2.16.840.1.003997.3.579 .2.593 1950 Unknown [id number] 2.16.840.1.207903.3.579 .2.593 1950 Unknown [id number] 2.16.840.1.658120.3.579 .2.593 1950 Unknown [id number] 2.16.840.1.352264.3.579 .2.593 1950 Unknown [id number] 2.16.840.1.378815.3.579 .2.593 1950 Unknown [id number] 2.16.840.1.488692.3.579 .2.593 1950 Unknown [id number] 2.16.840.1.983241.3.579 .2.593 1950 Unknown [id number] 2.16.840.1.285238.3.579 .2.593 1950 Unknown [id number] 2.16.840.1.211136.3.579 .2.593 1950 Unknown [id number] 2.16.840.1.404494.3.579 .2. 1950 Unknown [id number] 2.16.840.1.791236.3.579 .2. 1950 Unknown [id number] 2.16.840.1.139069.3.579 .2. 1950 Unknown [id number] 2.16.840.1.869907.3.579 .2. 1950 Unknown [id number] 2.16.840.1.911513.3.579 .2. 1950 Unknown [id number] 2.16.840.1.990479.3.579 .2. 1950 Unknown [id number] 2.16.840.1.802985.3.579 .2 1950 Unknown [id number] 2.16.840.1.968941.3.579 .2. 1950 Unknown [id number] 2.16.840.1.138555.3.579 .2. 1950 Unknown [id number] 2.16.840.1.978276.3.579 .2.1285 1950 Unknown [id number] 2.16.840.1.099825.3.579 .2.1285 1950 Unknown [id number] 2.16.840.1.943541.3.579 .2.1285 1950 Unknown [id number] 2.16.840.1.822500.3.579 .2.1285 1950 Unknown [id number] 2.16.840.1.529601.3.579 .2. 1950 Unknown [id number] 2.16.840.1.610969.3.579 .2. 1950 Unknown [id number] 2.16.840.1.578387.3.579 .2.1244 1950 Unknown [id number] 2.16.840.1.040571.3.579 .2.1244 1950 Unknown [id number] 2.16.840.1.191268.3.579 .2.1244 1950 Unknown [id number] 2.16.840.1.852823.3.579 .2.1259 1950 Unknown [id number] 2.16.840.1.779940.3.579 .2.1259 1950 Unknown [id number] 2.16.840.1.923518.3.579 .2.1259 1950 Unknown [id number] 2.16.840.1.688703.3.579 .2.1259 Social History Date Type Detail Facility Start: 02-20-2023 End: 03-06-2024 Never a smoker Never a smoker [facility] 600 DO Work Phone: Start: 12-28-2021 End: 11-13-2022 Tobacco smoking status Never smoked tobacco (finding) [facility] Tobacco smoking status Never [facility] Start: 02-20-2023 End: 03-06-2024 Sex Assigned At Female [facility] Start: 11-13-2022 End: 08-17-2023 Tobacco use and exposure Smokeless tobacco non-user [facility] Work Phone: Start: 03-06-2024 Alcoholic beverage intake Life time non-drinker (finding) [facility] Work Phone: Start: 1950 Sex assigned at Not on file [facility] Work Phone: Start: 02-25-2024 End: 08-28-2024 Exposure to SARS-CoV-2 (event) Not sure [facility] Start: 08-18-2024 Alcoholic beverage intake Ex-drinker (finding) [facility] Do you belong to any clubs or organizations such as christianity groups, unions, fraternal or athletic groups, or school groups? No [facility] Are you now , , , , never or living with a partner? [facility] How often to you hav e a drink containing alcohol? Never [facility] Do you feel stress - tense, restless, nervous, or anxious, or unable to sleep at night because your mind is troubled all the time - these days [OSQ] Only a little [facility] Start: 06-02-2015 Sex Female (finding) [facility] Functional Status Date Assessment Result Facility 08-24-2022 Functional Status N/A [facility] 06-30-2022 Functional Status N/A [facility] Clinical Notes 06-30-2022 to 09-03-2024 Connor Anaya DO - 09/03/2024 4:51 PM VIC Pearson - 09/02/2024 1:45 PM ESTTelephone Encounter - Isa Triana CMA - 09/02/2024 12:07 PM ESTPatient InstructionsPatient Instructions Note Date & Type Note Facility 09-03-2024 History of Present illness Narrative Patient has severe OA of the knee. Handicap parking placard printed documented in this encounter [facility] 09-02-2024 History of Present illness Narrative Associated [...] KNEE TODAY EPIC 09/02/24 XRAYS 03/26/24 IN [facility] NO MRI NO MDP / PREDNISONE [...] SILVER ADULT 50+ PO) as directed Orally Grafton-3 Fatty Acids (OMEGA-3 FISH OIL PO) Oral [...] Use: Not At Risk (02/20/2023) Received from [facility], [facility] Frequency of Alcohol Consumption: Never Average [...] requiring urgent evaluation. documented in this encounter [facility] 09-02-2024 Miscellaneous Notes Patient called to renew her handicap placard. 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 Okay, it is ready documented in this encounter [facility] 09-02-2024 Telephone encounter Note Patient called to renew her handicap placard. 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 [facility] 09-02-2024 Telephone encounter Note Okay, it is ready [facility] 08-28-2024 History of Present illness Narrative [place] [...] once daily., Disp: 90 tablet, Rfl: 3 bzzpqfkf-gcv-xixa-FA-vit K-lut (Centrum Silver Women) 8 mg iron-400 mcg-50 mcg tablet, Take 1 tablet by mouth once daily., Disp: , Rfl: omega-3 fatty acids-fish oil (One-Per-Day Grafton-3) 684-1,200 mg capsule, Take 1 capsule (1,200 [...] discussion and plan. documented in this encounter [facility] Work Phone: 08-28-2024 Instructions Hollie Gleason [...] up 7 months documented in this encounter [facility] Work Phone: 08-18-2024 History of Present [...] gradually lost weight documented in this encounter [facility] 07-29-2024 Evaluation + Plan note Diagnostic Tests PendingUroVysion Fish and Urine Cyto ([facility]) 07/29/24 [facility] 07-15-2024 Note Patient Education Urology Kidney [...] these instructions at home: Medicines ? Take vrzn-qnt-ohclndu and prescription medicines only as told by [...] provider. Document Revised: 06/08/2023 Document Reviewed: 06/08/2023 [employer] Patient Education ? 2023 [employer] Hematuria, Adult Hematuria is blood in [...] identify the cause (more content not included)... [facility] 03-06-2024 History of Present illness Narrative Subjective [...] once daily., Disp: 90 tablet, Rfl: 3 jtfkqzsf-ara-lhrm-FA-vit K-lut (Centrum Silver Women) 8 mg iron-400 mcg-50 mcg tablet, Take 1 tablet by mouth once daily., Disp: , Rfl: omega-3 fatty acids-fish oil (One-Per-Day Grafton-3) 684-1,200 mg capsule, Take 1 capsule (1,200 [...] discussion and plan. documented in this encounter [facility] Work Phone: 03-06-2024 Instructions Ivett Mcpherson [...] of your visit. documented in this encounter [facility] Work Phone: 09-05-2022 Hospital Discharge instructions [...] HASSAN Address: [facility] [address] [place] [address]- Business (1) When:03/05/2023 12:06:31 [facility] 06-30-2022 Hospital Discharge instructions Patient Education 06/30/2022 12:01:44 Kidney Stones, Uovm-hs-Uejn Kidney Stones Kidney stones are rock-like masses [...] Follow these instructions at home: Medicines Take iwnv-ajm-fsfdxdn and prescription medicines only as told by [...] 04/02/2009 Document Revised: 03/02/2020 Document Reviewed: 03/02/2020 [employer] Patient Education 2020 [employer] Follow Up Care 12/28/2021 15:15:51 With:Yehuda HASSAN MD, URL Address: [address] [place] [address]- When: Unknown [facility] Evaluation + Plan note Future Appointments Appointment Date:03/02/2023 11:00:00 AM Scheduled Provider:Yehuda HASSAN MD Location:[facility] Appointment Type:URO Office Visit [facility] Evaluation + Plan note Future Appointments Appointment Date:03/02/2023 11:00:00 AM Scheduled Provider:Yehuda HASSAN MD Location:[facility] Appointment Type:URO Office Visit Diagnostic Tests PendingUrine Culture 08/11/22 [facility] Evaluation + Plan note Future Appointments Appointment Date:03/02/2023 11:00:00 AM Scheduled Provider:Yehuda HASSAN MD Location:[facility] Appointment Type:URO Office Visit Diagnostic Tests PendingUroVysion Fish and Urine Cyto ([facility]) 09/05/22 [facility] Evaluation + Plan note Future Appointments Appointment Date:05/16/2024 10:45:00 AM Scheduled Provider:Yehuda HASSAN MD Location:[facility] Appointment Type:URO Office Visit [facility] Evaluation + Plan note Future Appointments Appointment Date:05/20/2024 11:00:00 AM Scheduled Provider:RAAD Back APRN, [place] X Location:[facility] Appointment Type:URO Office Visit [facility] Evaluation + Plan note Future Appointments Appointment Date:06/10/2024 03:00:00 PM Scheduled Provider:RAAD Back APRN, [place] X Location:[facility] Appointment Type:URO Office Visit [facility] Evaluation + Plan note Future Appointments Appointment Date:07/01/2024 02:30:00 PM Scheduled Provider:RAAD Back APRN, [place] X Location:[facility] Appointment Type:URO Office Visit [facility] Evaluation note Diagnosis Mixed hyperlipidemia- Primary Paroxysmal atrial fibrillation (Multi) Atrial fibrillation Non-ischemic cardiomyopathy (Multi) Other primary cardiomyopathies Never smoked tobacco BMI 36.0-36.9,adult Hyperlipidemia, unspecified hyperlipidemia type documented in this encounter [facility] Work Phone: Evaluation note* Diagnosis Primary hypertension- Primary Unspecified essential hypertension Hyperlipidemia, unspecified hyperlipidemia type Acquired hypothyroidism Unspecified hypothyroidism Osteoarthritis of multiple joints, unspecified osteoarthritis type 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 With guideline directed therapy in the taoism of maintenance of sinus rhythm her symptoms [...] merits of diet exercise and weight loss. -[facility] DO Work Phone: History [...] available for this section [facility] Hospital Discharge instructions No data available for this section [facility] InstructionsNot on filedocumented in this encounter [employer] SystemInstructionsNot on filedocumented in this encounter [employer]_SOLUTION SystemInstructionsNot on filedocumented in this encounter [facility] [employer] SystemProgress note No data available for this section [facility] Chief Complaint * I am doing [...] samples that wereavailable in the office. Dr. Galol had previously discussed Tikosyn, it will be [...] Lead Nick Richardson MD [address] [facility] [address] [place] [address] Referral ID Status Reason Start Date Expiration Date V isits Requested Visits Authorized [id number] Authorized 03/06/2024 03/06/2025 1 1 Specialty Diagnoses / Procedures Referred By Contac t Referred To Contact Cardiology Diagnoses Non-ischemic cardiomyopathy (Multi) Procedures Follow Up In Cardiology Nick Richardson MD [address] [facility] [place] [address] Carmen Lopez MD [address] [facility] [address] [place] [address] Referral ID Status Reason Start Date Expiration Date V isits Requested Visits Authorized [id number] Authorized 03/06/2024 03/06/2025 1 1 Additional Source Comments INFORMATION SOURCE (unrecogn ized section and content) DATE CREATED AUTHOR 06/26/2022 [facility] DATE CREATED AUTHOR AUTHOR'S ORGANIZ ATION 12/07/2022 [facility] DATE CREATED AUTHOR AUTHOR'S ORGANIZ ATION 12/07/2022 [facility] DATE CREATED AUTHOR AUTHOR'S ORGANIZ ATION 03/09/2023 [facility] DATE CREATED AUTHOR AUTHOR'S ORGANIZ ATION 07/17/2024 [facility] DATE CREATED AUTHOR AUTHOR'S ORGANIZ ATION 08/07/2024 [facility] DATE CREATED AUTHOR AUTHOR'S ORGANIZ ATION 08/19/2024 [facility] DATE CREATED AUTHOR AUTHOR'S ORGANIZ ATION 08/20/2024 [facility] DATE CREATED AUTHOR AUTHOR'S ORGANIZ ATION 08/26/2024 Yuan Aguirre [facility] ical Center DATE CREATED AUTHOR AUTHOR'S ORGANIZ ATION 08/30/2024 [facility] DATE CREATED AUTHOR AUTHOR'S ORGANIZ ATION 09/08/2024 [facility] Care Team (unrecognized sect ion and content) Commercial Director Relationship Specialty Start Date End Date Connor Anaya DO [address], [place] [address] PCP - General 10/29/19 Commercial Director Relationship Specialty Start Date End Date Connor Anaya DO [address], [place] [address] PCP - General Family Medicine 11/13/22 Desiree Jansen [facility] Nurse - [employer] 07/01/24 Commercial Director Relationship Specialty Start Date End Date Connor Anaya DO [address], [place] [address] PCP - General Family Medicine 11/13/22 Desiree Jansen [facility] Nurse - [employer] 07/01/24 Commercial Director Relationship Specialty Start Date End Date Connor Anaya DO [address], [place] [address] PCP - General Family Medicine 11/13/22 Desiree Jansen CCM Nurse - [employer] 07/01/24 Commercial Director Relationship Specialty Start Date End Date Connor Anaya DO PCP - General 10/29/19 Commercial Director Relationship Specialty Start Date End Date Connor Anaya MD [address], [place] [address] PCP - General Family Medicine 03/26/24 Commercial Director Relationship Specialty Start Date End Date Connor Anaya MD [address], [place] [address] PCP - General Family Medicine 03/26/24 Reason for Visit (unrecogniz ed section and content) Reason Comments Follow-up 2mo Specialty Diagnoses / Procedures Referred By Contac t Referred To Contact Cardiology Diagnoses Paroxysmal atrial fibrillation (Multi) Procedures Follow Up In Cardiology Nick Richardson MD [address] [place] [address] [address], [address] [address] Referral ID Status Reason Start Date Expiration Date V isits Requested Visits Authorized [id number] Authorized 12/24/2023 12/23/2024 1 1 Reason Comments Follow-up Reason Comments Follow-up 5m Specialty Diagnoses / Procedures Referred By Contac t Referred To Contact Cardiology Diagnoses Non-ischemic cardiomyopathy (Multi) Procedures Follow Up In Cardiology Nick Richardson MD Ibrahim, Hassan M, MD [address] [place] [address] 2, [address] [address] Phone: tel: fax: Referral ID Status Reason Start Date Expiration Date V isits Requested Visits Authorized [id number] Authorized 03/06/2024 03/06/2025 1 1 Reason Comments [...] BE BASED ON THE PRIMARY CLINICAL RECORDS. [facility] [employer] [facility]. provides no warranty or guarantee of the accuracy or completeness of information in this document.
[2024-09-11 11:29] LABS: Lactate/Lactic Acid 0.8 mmol/L (0.4-2.0)
[2024-09-11 11:32] LABS: Basophils Percent Auto 0.4 % (0.2-2.0); Eosinophils Absolute Auto 0.1 10^3/uL (0.0-0.7); Eosinophils Percent Auto 1.3 % (0.9-7.0); Hematocrit 39.5 % (36.0-48.0); Hemoglobin 12.6 g/dL (12.0-16.0); Immature Granulocytes Abs Auto 0.01 10^3/uL (0.00-0.03); Immature Granulocytes Pct Auto 0.1 % (0.0-0.5); Lymphocytes Absolute Auto 1.3 10^3/uL (1.2-3.8); Lymphocytes Percent Auto 18.9 % (20.5-60.0); Mean Corpuscular HGB Conc 31.9 g/dL (29.9-35.2); Mean Corpuscular Hemoglobin 28.6 pg (26.7-34.0); Mean Corpuscular Volume 89.8 fL (81.0-99.0); Monocytes Absolute Auto 0.2 10^3/uL (0.3-0.8); Monocytes Percent Auto 3.4 % (1.7-12.0); Neutrophils Absolute Auto 5.2 10^3/uL (1.4-6.5); Neutrophils Percent Auto 75.9 % (43.0-75.0); Platelet Count 179 10^3/uL (150-450); Red Cell Distribution Width 14.7 % (11.0-15.0); White Blood Count 6.8 10^3/uL (4.0-11.0)
--- NOTE | 2024-09-11 11:32 | PC.NURSE ---
1035- Patient arrives from PACU per cart to room 273. Patient A/O x3. Easily moves to ICU bed. 12 lead EKG, NIBP, SPO2 applied. See assessment
[2024-09-11 14:16] LABS: Troponin I High Sensitivity 24.6 pg/mL (4.0-51.3)
--- NOTE | 2024-09-11 14:45 | SWNOTE1 ---
Important Message from Medicare reviewed and discussed with patient. Pt. verbalized understanding and signed the form. Original given to patient and copy placed in patient?s chart. SW met with pt and daughter in room. Pt voiced she is feeling well. Has to see cardiology and hoping to be able to leave. Pt is independent, no concerns about discharge. SW to follow as needed.
[2024-09-11] MEDS: RIVAROXABAN 10 MG TABLET 20 MG PO (16:45)
--- NOTE | 2024-09-11 16:55 | PM.CAPN ---
Progress Note: A&P Assessment and Plan (1) Afib: (2) Bradycardia: Plan Cardiology contacted regarding perioperative bradycardia. 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 Subjective Subjective Principal diagnosis: Bradycardia Exam Narrative Exam Narrative: n/a Constitutional Vital Signs, click to edit/add: Last Vital Signs Temp 98 F 09/11/24 14:17 Pulse 62 09/11/24 16:00 Resp 16 09/11/24 14:17 BP 127/53 09/11/24 14:17 Pulse Ox 95 09/11/24 16:10 O2 Del Method Room Air 09/11/24 16:10 O2 Flow Rate 2 09/11/24 10:35
--- NOTE | 2024-09-11 19:58 | P.DS_ITS ---
DS: Providers Provider Date of admission: 09/11/24 11:03 Primary care physician: CORNEL ANYAA Consults: 09/11/24 10:17 Consult to Pharmacy Routine Consulting Provider: Reason for consultation: Please Yolo me when Med Rec is Updated Has provider been notified: No Occupational Therapy Eval and Treat Routine Reason for consultation: Only if needed for Rehab Has provider been notified: No Physical Therapy Eval and Treat Routine Reason for consultation: Eval and Treat Has provider been notified: No 09/11/24 10:21 Consult to Cardiology Routine Reason for consultation: v-tach Has provider been notified: No DS: Diagnosis Discharge Diagnosis (1) Bradycardia: (2) Afib: Plan Admission findings: Patient with a 5 beat run of V. tach during surgical intervention. Also significant bradycardia. Patient will be admitted to the intensive care unit. Ventricular tachycardia-check echocardiogram and labs. Consult to cardiology. History of gout-continue with home medications Hypertension-continue with home medications Atrial fibrillation with controlled rate Hypercholesterolemia continue with home medications Hypothyroidism-continue with home medications Bladder spasm-continue with home medications Admission status: Workup for ventricular tachycardia was completed, patient was stable throughout the immediate admission. No further episodes. With patient's stability, cleared by cardiology, patient will be changed to observation status as medically necessary treatment will only span less than 2 midnights. DS: Summary Hospital Course Hospital Course: Patient was seen and evaluated in the postanesthesia care unit secondary to ventricular tachycardia. 5 beat run. Bradycardia also well as well. Patient was placed in the intensive care unit, workup with echocardiogram and laboratory results were completed. Case was reviewed with cardiology. Patient has been stable throughout the rest of the morning and afternoon. Cardiology was okay with her being discharged as long as she wore a 30-day Holter monitor. That has been connected. Patient's inpatient status will be changed to observation as she only met the observational time period. Discharge patient home in improving condition. Follow-up with PCP and cardiology within the next week. Status at Discharge Overall status at discharge: patient is not back to baseline Time Spent with Patient Time attestation: Total time spent providing and/or coordinating discharge services: Time spent: greater than 30 minutes Exam Constitutional Vital Signs, click to edit/add: Last Vital Signs Temp 98 F 09/11/24 14:17 Pulse 62 09/11/24 16:00 Resp 16 09/11/24 14:17 BP 127/53 09/11/24 14:17 Pulse Ox 95 09/11/24 16:10 O2 Del Method Room Air 09/11/24 16:10 O2 Flow Rate 2 09/11/24 10:35 Documenting provider has reviewed patient's vital signs: yes Common normals: no apparent distress Chest Common normals: inspection of chest normal Respiratory Common normals: normal respiratory effort and no retractions Cardio Common normals: no JVD; irregular rate and irregular rhythm Rate: bradycardic Rhythm: abnormal rhythm GI Common normals: Normal to inspection, nondistended, normoactive bowel sounds present DS: Data Data Completed and Pending Labs on day of discharge: Labs from last 24 hours 09/11/24 09/11/24 09/11/24 13:53 11:27 11:00 WBC 6.8 RBC 4.40 Hgb 12.6 Hct 39.5 MCV 89.8 MCH 28.6 MCHC 31.9 RDW 14.7 Plt Count 179 MPV 9.0 L Neut % (Auto) 75.9 H Lymph % (Auto) 18.9 L [place] % (Auto) 3.4 Eos % (Auto) 1.3 Baso % (Auto) 0.4 Neut # (Auto) 5.2 Lymph # (Auto) 1.3 [place] # (Auto) 0.2 L Eos # (Auto) 0.1 Baso # (Auto) 0.0 Abs Immat Gran (auto) 0.01 Imm/Tot Granulo (auto) 0.1 Sodium Potassium Chloride Carbon Dioxide Anion Gap BUN Creatinine Est GFR ( Amer) Est GFR (Non-Af Amer) BUN/Creatinine Ratio Glucose Lactate 0.8 Calcium Magnesium Troponin I High Sens 24.6 NT-Pro-B Natriuret Pep TSH Thyroxine (T4) Free T3 09/11/24 10:37 WBC RBC Hgb Hct MCV MCH MCHC RDW Plt Count MPV Neut % (Auto) Lymph % (Auto) [place] % (Auto) Eos % (Auto) Baso % (Auto) Neut # (Auto) Lymph # (Auto) [place] # (Auto) Eos # (Auto) Baso # (Auto) Abs Immat Gran (auto) Imm/Tot Granulo (auto) Sodium 144 Potassium 4.3 Chloride 108 H Carbon Dioxide 24.0 Anion Gap 16.3 BUN 15.0 Creatinine 0.83 Est GFR ( Amer) >60 Est GFR (Non-Af Amer) >60 BUN/Creatinine Ratio 18.1 Glucose 112 H Lactate Calcium 9.7 Magnesium 1.9 Troponin I High Sens 25.3 NT-Pro-B Natriuret Pep 322.0 TSH 0.554 Thyroxine (T4) 15.20 H Free T3 2.35 Discharge Plan Discharge Disposition: Home, Self-Care Condition: Good Discharge Medications: New mirabegron [Myrbetriq] 50 mg tablet extended release 24 hr 50 mg PO DAILY Qty: 20 0RF cephalexin 500 mg capsule 500 mg PO BID 7 Days Qty: 14 0RF Continued allopurinol 300 mg tablet 300 mg PO DAILY Caltrate 600-D Plus Minerals 600 mg calcium- 800 unit-50 mg tablet 1 tab PO DAILY Central-Kim Women's Mature 8 mg iron-400 mcg-50 mcg tablet 1 tab PO DAILY lovastatin 10 mg tablet 10 mg PO DAILY lisinopril 2.5 mg tablet 2.5 mg PO DAILY Effer-K 25 mEq tablet, effervescent 25 meq PO DAILY Multaq 400 mg tablet 400 mg PO DAILY PRN (Reason: palpitations) Xarelto 20 mg tablet 20 mg PO Q24H cholecalciferol (vitamin D3) 25 mcg (1,000 unit) capsule 25 mcg PO DAILY levothyroxine 125 mcg tablet 125 mcg PO DAILY acetaminophen [Tylenol Arthritis Pain] 650 mg tablet extended release 650 mg PO Q12H PRN (Reason: pain) fexofenadine [Hannah Allergy] 180 mg tablet 180 mg PO DAILY Move Free Joint Health 750 mg-100 mg- 1.65 mg-108 mg tablet 1 tab PO DAILY Krill Oil ([place] 3 and 6) 1,500-165-67.5 mg capsule 1 cap PO DAILY Activity: increase activity as tolerated Diet: advance to your usual diet Print Language: Frisian Patient Instructions: Cephalexin (By mouth), Mirabegron (By mouth) (Myrbetriq, Myrbetriq Granules), Bradycardia (GEN) Follow Up Appointments: Office will call for stent removal. Call [facility] tomorrow to schedule follow up appointment. Discharge Date/Time: 09/11/24 18:43
--- OUTSIDE RECORDS SUMMARY | 2024-09-12 06:13 | XMS_ITS | CCD ---
Author Organization [facility] Care Team Providers Care Senior Program Analyst Name Role Phone Markel Connor Marinelli Unavailable Unavailable Unavailable CONNOR ANAYA Primary Care Physician [phone] Nick Richardson II Attending Unav ailelisabeth Richardson [...] FURLONG, DR CONNOR Marinelli Primary Care Unavailable HILLSDALE, DR WILLARD Pittman Consulting Unavailable WEST, DR WILLARD Pittman Admitting Unavailable FURLONG, DR CONNOR Marinelli Primary Care Unavailable HILLSDALE, DR WILLARD Pittman Attending Unavailable MISC, DOCTOR Admitting Unavailable MISC, DOCTOR Attending Unavailable MISC, DOCTOR Consulting Unavailable FURLONG, DR CONNOR Marinelli Primary Care Unavailable Furlong Connor ESCALANTE Primary Care Provider Orzech, Radha X Admitting Unavailable Orzech, Radha X Attending Unavailable Orzech, Ardha X Attending Unavailable Orzech, Radha X Attending [...] of skin (disorder), Unknown, Rash General Surgery [facility] (20 sources) Sulfonamides (Antibiotic); Translations: [Sulfa Drugs] Allergy to drug (finding) Eruption of skin (disorder) General Surgery [facility] (20 sources) corn extract; Translations: [Liberty] Drug Allergy 02-18-20 24 Unknown (qualifier value), Other (See Comments) [facility] (13 sources) Dog; Translations: [Dogs] Allergy to substance Unknown (qualifier value) [facility] (20 sources) Mold Extract; Translations: [mold] Drug Allergy 06-21-20 Unknown (qualifier value), Other (See Comments) [facility] (13 sources) Milk Products; Translations: [Milk Products] Food allergy Unknown (qualifier value) [facility] (13 sources) house dust mite allergen extract; Translations: [house dust mite allergen extra] Allergy to substance Unknown (qualifier value) [facility] (2 sources) Ciprofloxacin Drug Allergy 01-31-20 14 [facility] (1 source) house dust allergenic extract Drug Allergy [facility] (2 sources) Lactose Drug Allergy [facility] (1 source) Sulfonamides (Antibiotic) Drug allergy (disorder) [facility] (13 sources) Sulfonamides (Antibiotic); Translations: [SULFA (SULFONAMIDE ANTIBIOTICS)] Drug Intolerance 06-21-20 Unknown, Wili [facility] Work Phone: (7 sources) Sulfamethoxazole / Trimethoprim; Translations: [SULFAMETHOXAZOLE-T RIMETHOPRIM] Drug Allergy 11-13-19 [facility] Medications Current Medications Medication Drug Class(es) [...] 1 capsule by mouth in the morning yqrkv-bk-2-jqh-swa-drjpida-ast (KRILL OIL) 1,[phone] mg capsule Take 1 capsule by mouth [...] adjustment) Start: 07-29-2019 take 1 capsule by [facility] once daily levothyroxine 137 mcg (0.137 [...] ADULT 50+ PO) as directed Orally Active djktwoxj-esm-bflf-F A-vit K-lut (Centrum Silver Women) 8 mg iron-400 mcg-50 mcg tablet (2 sources) take 1 tablet by mouth once daily ekttqiis-btf-ftqa-FA -vit K-lut (Centrum Silver Women) 8 mg iron-400 mcg-50 mcg tablet Take 1 tablet by mouth once daily. Active tzjawlzx-srl-rkao-F A-vit K-lut (CENTRUM SILVER WOMEN) 8 mg iron-400 mcg-50 mcg tablet (5 sources) take 1 tablet by mouth once in the morning qfxpoewt-hvd-oofm-FA -vit K-lut (CENTRUM SILVER WOMEN) 8 mg iron-400 mcg-50 mcg tablet Take 1 tablet by mouth in the morning. Active Windsor-3 Fatty Acids (OMEGA-3 FISH OIL PO) (3 sources) Windsor-3 Fatty Ac ids (OMEGA-3 FISH OIL PO) Take by mouth Active omega-3 fatty acids-fish oil (One-Per-Day Windsor-3) 684-1,200 mg capsule (2 sources) omega-3 fatty acids-fish oil (One-Per-Day Windsor-3) 684-1,200 mg capsule Take 1 capsule (1,200 [...] procedure, # 2 cap(s), Refills(s) 0, Pharmacy: [facility], 165, cm, 06/30/22 11:48:00 EDT, Height/Length [...] BID, # 60 tab(s), Refills(s) 11, Pharmacy: [facility], 165, cm, 10/26/23 8:42:00 EST, Height/Length Dosing, 97.5, kg, 10/26/23 8:42:00 EST, Weight Dosing Start Date: 10/26/23 Status: Ordered 1 ml methylPREDNISolone acetate 40 mg/ml injection (4 sources) Corticosteroid Start: 2023 End: 2023 methylPREDNISolone acetate (DEPO-Medrol) injection 40 mg Start: 09-02-2024 End: 09-02-2024 40 mg, Intra-articular, Once PRN Procedure, Starting on Sun09/02/24 at 1414, For 1 dose Windsor 3 CAPS (7 sources) Windsor 3 CAPS BASSAM E DIRECTED. 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 [facility] XR Knee - right 1 or 2 [...] bone articulation and patella femoral joint [facility] Radiology Study observation (narrative) [facility] COMPREHENSIVE METABOLIC PANE Good 08-18-2024 Albumin [Mass/Vol] 3.9 g/dL Normal 3.2-5.3 [facility] Comment on above: Performed By: #### T HYR, 95899-8, CMP #### [facility] ([id number]) [address], [address] [place] [address] ALP [Catalytic activity/Vol] 114 U/L Normal 39-130 [facility] Comment on above: Performed By: #### Min KABA, 71815-8, CMP #### [facility] ([id number]) [address], [address] [place] [address] ALT [Catalytic activity/Vol] 15 U/L Normal 0-31 [facility] Comment on above: Performed By: #### Min KABA, 35312-5, CMP #### [facility] ([id number]) [address], [address] [place] [address] Anion gap [Moles/Vol] 8 mmol/L Normal 5-15 [facility] Comment on above: Performed By: #### Min KABA, 45138-7, CMP #### [facility] ([id number]) [address], [address] [place] [address] AST [Catalytic activity/Vol] 20 U/L Normal 0-41 [facility] Comment on above: Performed By: #### Min KABA, 69861-8, CMP #### [facility] ([id number]) [address], [address] [place] [address] Bilirubin [Mass/Vol] 0.5 mg/dL Normal 0.3-1.2 [facility] Comment on above: Performed By: #### Min KABA, 03492-8, CMP #### [facility] ([id number]) [address], [address] [place] [address] Calcium [Mass/Vol] 10.4 mg/dL Normal 8.5-10.5 [facility] Comment on above: Performed By: #### Min KABA, 10344-0, CMP #### [facility] ([id number]) [address], [address] [place] [address] Chloride [Moles/Vol] 103 mmol/L Normal 98-109 [facility] Comment on above: Performed By: #### Min KABA 06586-9, CMP #### [facility] ([id number]) [address], [address] [place] [address] CO2 [Moles/Vol] 27 mmol/L Normal 22-32 [facility] Comment on above: Performed By: #### Min KABA, 43801-0, CMP #### [facility] ([id number]) [address], [address] [place] [address] Creatinine [Mass/Vol] 0.80 mg/dL Normal 0.40-1.00 [facility] Comment on above: Result Comment: METH OD TRACEABLE TO IDMS STANDARD Performed By: #### Min KABA 76929-5, CMP #### [facility] ([id number]) [address], [address] [place] [address] GFR/1.73 sq M.predicted among non-blacks MDRD (S/P/Bld) [Vol rate/Area] 77 mL/min/{1.73_m2} Normal >59 [facility] Comment on above: Result Comment: Reported eGFR is based on the CKD-EPI 2020 equation that does not use a race coefficient. Performed By: #### Min KABA 08216-9, CMP #### [facility] ([id number]) [address], [address] [place] [address] Glucose [Mass/Vol] 99 mg/dL Normal 65-99 [facility] Comment on above: Performed By: #### Min KABA 91325-5, CMP #### [facility] ([id number]) [address], [address] [place] [address] Potassium [Moles/Vol] 4.0 mmol/L Normal 3.5-5.0 [facility] Comment on above: Performed By: #### Min KABA, 72963-8, CMP #### [facility] ([id number]) [address], [address] [place] [address] Protein [Mass/Vol] 7.0 g/dL Normal 6.0-8.0 [facility] Comment on above: Performed By: #### Min SENDY, 26287-6, CMP #### [facility] ([id number]) [address], [address] [place] [address] Sodium [Moles/Vol] 138 mmol/L Normal 134-146 [facility] Comment on above: Performed By: #### Min KABA, 01886-0, CMP #### [facility] ([id number]) [address], [address] [place] [address] Urea nitrogen [Mass/Vol] 18 mg/dL Normal 5-27 [facility] Comment on above: Performed By: #### Min SENDY, 07887-8, CMP #### [facility] ([id number]) [address], [address] [place] [address] Comprehensive metabolic pane good 08-18-2024 Albumin [Mass/Vol] 3.9 g/dL 3.2 - 5.3 g/dL [facility] ALP [Catalytic activity/Vol] 114 U/L 39 - 130 U/L [facility] ALT No additional P-5'-P [Catalytic activity/Vol] 15 U/L 0 - 31 U/L [facility] Anion gap [Moles/Vol] 8 mmol/L 5 - 15 mmol/L [facility] AST [Catalytic activity/Vol] 20 U/L 0 - 41 U/L [facility] Bilirubin [Mass/Vol] 0.5 mg/dL 0.3 - 1.2 mg/dL [facility] Calcium [Mass/Vol] 10.4 mg/dL 8.5 - 10.5 mg/dL [facility] Chloride [Moles/Vol] 103 mmol/L 98 - 109 mmol/L [facility] CO2 [Moles/Vol] 27 mmol/L 22 - 32 mmol/L [facility] Creatinine [Mass/Vol] 0.8 mg/dL 0.40 - 1.00 mg/dL [facility] Comment on above: METHOD TRACEABLE TO IDFL STANDARD eGFR (CKD-EPI)non-race dependent 77 - PINF [facility] Comment on above: Reported eGFR is based on the CKD-EPI 2020 equation that does not use a race coefficient. Glucose [Mass/Vol] 99 mg/dL 65 - 99 mg/dL [facility] Potassium [Moles/Vol] 4 mmol/L 3.5 - 5.0 mmol/L [facility] Protein [Mass/Vol] 7 g/dL 6.0 - 8.0 g/dL [facility] Sodium [Moles/Vol] 138 mmol/L 134 - 146 mmol/L [facility] Urea nitrogen [Mass/Vol] 18 mg/dL 5 - 27 mg/dL [facility] Lipid 1996 panelon 4 Cholesterol [Mass/Vol] 187 mg/dL 150 - 200 mg/dL [facility] Cholesterol in HDL [Mass/Vol] 66 mg/dL 39 - PINF mg/dL [facility] Comment on above: HDL <40 mg/dL - High Risk HDL > or = 40mg/dL- Desirable HDL >60 mg/dL - Negative Risk Cholesterol in LDL [Mass/Vol] 107 mg/dL NINF - 130 mg/dL [facility] Comment on above: LDL <100 mg/dL - Desirable LDL >160 mg/dL - High Risk Cholesterol in VLDL [Mass/Vol] 14 mg/dL 0 - 30 mg/dL [facility] Cholesterol.total /Cholesterol in HDL [Mass ratio] 2.8 {ratio} 1.0 - 5.0 [facility] Triglyceride [Mass/Vol] 68 mg/dL 27 - 150 mg/dL [facility] Cholesterol [Mass/Vol] 187 mg/dL Normal 150-200 [facility] Comment on above: Performed By: #### T [facility], 61726-8, CMP #### [facility] ([id number]) [address], [address] [place] [address] Cholesterol in HDL [Mass/Vol] 66 mg/dL Normal >39 [facility] Comment on above: Result Comment: HDL <40 mg/dL - High Risk HDL > or = 40mg/dL- Desirable HDL >60 mg/dL - Negative Risk Performed By: #### Min KABA 40105-4, CMP #### [facility] ([id number]) [address], [address] [place] [address] Cholesterol in LDL [Mass/Vol] 107 mg/dL Normal <130 [facility] Comment on above: Result Comment: LDL <100 mg/dL - Desirable LDL >160 mg/dL - High Risk Performed By: #### Min KABA 93675-4, CMP #### [facility] ([id number]) [address], [address] [place] [address] Cholesterol in VLDL [Mass/Vol] 14 mg/dL Normal 0-30 [facility] Comment on above: Performed By: ###Chavo KABA 50020-2, CMP #### [facility] ([id number]) [address], [address] [place] [address] CHOLESTEROL:HDL 2.8 Normal 1.0-5.0 [facility] Comment on above: Performed By: #### Min KABA 44937-9, CMP #### [facility] ([id number]) [address], [address] [place] [address] Triglyceride [Mass/Vol] 68 mg/dL Normal 27-150 [facility] Comment on above: Performed By: #### T HYR, 16436-7, CMP #### [facility] ([id number]) [address], [address] [place] [address] No Panel Informationon 08-18 [facility] THYROID PROFILEon 08-18-2024 Free T4 [Mass/Vol] 1.33 ng/dL Normal 0.61-1.60 [facility] Comment on above: Performed By: #### T HYR, 79847-8, CMP #### [facility] ([id number]) [address] [place] [address] TSH 0.35 uIU/mL Low 0.49-4.67 [facility] Comment on above: Performed By: #### T HYR, 58741-1, CMP #### [facility] ([id number]) [address] [place] [address] Thyroid profile includes TSH FT4on 08-18-2024 Free T4 [Mass/Vol] 1.33 ng/dL 0.61 - 1.60 ng/dL [facility] Interpretation and review of laboratory results Abnormal [facility] TSH Qn 0.35 m[IU]/L Low [facility] UroVysion Fish and Urine Cyt o ([facility])on 08-05-2024 UVFISH & UC Diagnosis Info Invalid Interpretation Code [facility] Comment on above: Result Comment: A:Ur [...] with cytology and cystoscopy results. * CPT: 75854, 88097. MicroScopic Description - MicroScopic Description - Electronically signed by : on: 08/05/2024 16:40:06 Performed By: #### 1 [id number] #### [facility] [address] [place] [address] UroVysion Fish and Urine Cyt o ([facility])on 07-29-2024 [facility] Method of Extraction Voided Normal [facility] Comment on above: Performed By: #### 1 [id number] #### [facility] [address] [place] [address] [facility] Number of Jars 1 Invalid Interpretation Code [facility] Comment on above: Performed By: #### 1 [id number] #### [facility] [address] [place] [address] [facility] Specimen Urine Normal [facility] Comment on above: Performed By: #### 1 [id number] #### [facility] [address] [place] [address] [facility] Type of Service Technical Only Normal [facility] Comment on above: Performed By: #### 1 [id number] #### [facility] [address] [place] [address] Urine Cytology ([facility])on 07-18-2024 Microscopic exam Cytology (U) [Interp] Diagnosis Info Invalid Interpretation Code [facility] Comment on above: Result Comment: A:Ur [...] on: 07/18/2024 12:47:49 Performed By: #### 1 [id number] #### [facility] [address] [place] [address] Ambulatory Visit Summaryon 07-15-2024 Ambulatory Visit Summary [...] When: Comments: pending review of imaging Where: [address] [place] [address]- Medications What How Much When Instructions Unchanged [...] prescribing physician if questions or concerns Allergies Liberty (Unknown) Dogs (Unknown) Milk Products (Unknown) Mold [...] the b (more content not included)... Normal [facility] Urine Cytology ([facility])on 0 07-15-2024 Method of Extraction Voided Normal [facility] Comment on above: Performed By: #### 1 [id number] #### [facility] [address] [place] [address] Number of Jars 1 Invalid Interpretation Code [facility] Comment on above: Performed By: #### 1 [id number] #### [facility] [address] [place] [address] Specimen Clean Catch Normal [facility] Comment on above: Performed By: #### 1 [id number] #### [facility] [address] [place] [address] Type of Service Technical Only Normal [facility] Comment on above: Performed By: #### 1 [id number] #### [facility] [address] [place] [address] Urology Office/Clinic Noteon 07-15-2024 Urology Office/Clinic Note [...] with voice recognition artificial intelligence software, specifically Movista, Tracab and or s0cket. Substitutions may have occurred due to the [...] Urnls Dip Stick Auto w/o Microscopy POC 39922 Follow-up With When Contact Information MO HAYDEN, Yehuda Haddad, URL [address] [place] [address]- Additional Instructions: pending review of imaging Patient Education Kidney Stones, Agoh-qe-Owle Hematuria, Adult Problem List/Past Medical History Ongoing [...] bile duct (more content not included)... Normal [facility] Comment on above: Result Comment: Elec tronically Signed By: RAAD Back APRN, Radha Lopes\.br\Date and Time Signed: 07/15/24 15:39 EDT ECG 12 Leadon 03-06-2024 Sinus bradycardia with occasional PVCs Low voltage QRS Nonspecific ST change QTc 391 ms [facility] Work Phone: BASIC METABOLIC PANLon 02-17 Anion gap [Moles/Vol] 6 mmol/L Normal 5-15 [facility] Comment on above: Performed By: #### B YONATAN, THYR #### [facility] ([id number]) [address], [address] [place] [address] Calcium [Mass/Vol] 9.8 mg/dL Normal 8.5-10.5 [facility] Comment on above: Performed By: #### B YONATAN, THYR #### [facility] ([id number]) [address], [address] [place] [address] Chloride [Moles/Vol] 106 mmol/L Normal 98-109 [facility] Comment on above: Performed By: #### B YONATAN, THYR #### [facility] ([id number]) [address], [address] [place] [address] CO2 [Moles/Vol] 31 mmol/L Normal 22-32 [facility] Comment on above: Performed By: #### Win TAM, THYR #### [facility] ([id number]) [address], [address] [place] [address] Creatinine [Mass/Vol] 0.90 mg/dL Normal 0.40-1.00 [facility] Comment on above: Result Comment: METH OD TRACEABLE TO IDMS STANDARD Performed By: #### B YONATAN, THYR #### [facility] ([id number]) [address], [address] [place] [address] GFR/1.73 sq M.predicted among non-blacks MDRD (S/P/Bld) [Vol rate/Area] 68 mL/min/{1.73_m2} Normal >59 [facility] Comment on above: Result Comment: Reported eGFR is based on the CKD-EPI 2020 equation that does not use a race coefficient. Performed By: #### B YONATAN, THYR #### [facility] ([id number]) [address], [address] [place] [address] Glucose [Mass/Vol] 105 mg/dL High 65-99 [facility] Comment on above: Performed By: #### B YONATAN, THYR #### [facility] ([id number]) [address] [place] [address] Potassium [Moles/Vol] 4.2 mmol/L Normal 3.5-5.0 [facility] Comment on above: Performed By: #### B YONATAN, THYR #### [facility] ([id number]) [address] [place] [address] Sodium [Moles/Vol] 143 mmol/L Normal 134-146 [facility] Comment on above: Performed By: #### B YONATAN, THYR #### [facility] ([id number]) [address] [place] [address] Urea nitrogen [Mass/Vol] 19 mg/dL Normal 5-27 [facility] Comment on above: Performed By: #### B YONATAN, THYR #### [facility] ([id number]) [address] [place] [address] THYROID PROFILEon 02-18-2024 Free T4 [Mass/Vol] 1.92 ng/dL High 0.61-1.60 [facility] Comment on above: Performed By: #### B YONATAN, THYR #### [facility] ([id number]) [address] [place] [address] TSH 0.58 uIU/mL Normal 0.49-4.67 [facility] Comment on above: Performed By: #### B YONATAN, THYR #### [facility] ([id number]) [address] [place] [address] Ambulatory Visit Summaryon 1 Ambulatory Visit Summary MIKY FUENTES :1950 Visit Date:10/26/2023 Ambulatory Visit Instructions Your Diagnosis Ureteral stone with hydronephrosis Kidney stone Tests Performed Urnls Dip Stick Auto w/o Microscopy POC 25868 Your Care Team Attending Physician - Yehuda [...] AM EST With: Where: [facility] Normal [address] [place] [address] [place] [address]- \.br\ You Need to Schedule the Following Appointments\.br\ Follow Up with MO HAYDEN, Yehuda Haddad, GENEVIEVEL When: \.br\ Where:\.br\ [address] [facility]\.br\ [place] [address]-\.br\ Medications\.br\ What How Much When Instructions\.br\ New potassium bicarbonate (K-Effervescent 25 mEq oral tablet, effervescent) 1 Tablets By Mouth 2 times a day Refills: 11 Pickup at [facility]\.br\ Unchanged allopurinol (allopurinol 300 mg Tab) [...] if questions or concerns \.br\ Pharmacy Information\.br\ [facility]: [address] [place], [place] [id number] [phone]\.br\ \.br\ What How Much When Why Comments\.br\ Stop Taking tamsulosin (Flomax 0.4 mg Cap) 1 Capsules By Mouth Every day Right flank pain Kidney stones Gross hematuria\.br\ Test Results\.br\ Urnls Dip Stick Auto w/o Microscopy POC 30535 (10/26/2023)\.br\ Bilirubin Urine Dipstick - Negative\.br\ Blood Urine Dipstick - 3+ Large\.br\ Glucose Urine Dipstick - Negative\.br\ Ketones Urine Dipstick - Negative\.br\ Leukocytes Urine Dipstick - Negative\.br\ Nitrite Urine Dipstick - Negative\.br\ Protein Urine Dipstick - 2+ (100 mg/dl)\.br\ Specific Violet Urine Dipstick - 1.025\.br\ Urine Appearance Urine Dipstick - Slightly cloudy\.br\ Urine Color Urine Dipstick - Yellow\.br\ Urobilinogen Urine Dipstick - Normal 0.2-1 EU/dl\.br\ pH Urine Dipstick - 5\.br\ Allergies\.br\ Liberty (Unknown)\.br\ Dogs (Unknown)\.br\ Milk Products (Unknown)\.br\ Mold [...] \.br\ Have a salad and fruit [facility] Patient Educationon 10-26-20 Patient Education [...] Spinach (cooked), rhubarb, beets, sweet potatoes, and Bahraini chard. ? Peanuts. ? Potato chips, telugu fries, and baked potatoes with skin on. ? Nuts and nut products. ? Chocolate. ? If you regularly take a diuretic medicine, make sure to eat at least 1 or 2 servings of fruits or vegetables that are high in potassium each day. These include: ? Avocado. ? Banana. ? [place], prune, carrot, or tomato juice. ? Baked [...] fish oil, or vitamin B6. ? Take opdp-yqx-spzjqsr and prescription medicines only as told by your health care provider. These include supplements. What foods sh (more content not included)... Normal [facility] RAD - MISCon 10-26-2023 [facility] MIS [id number] .00TIFF [facility] [id number] .00TIFF [facility] Urology Office/Clinic Noteon 10-26-2023 Urology Office/Clinic Note Chief Complaint CT Review HPI Staff 2 wk f/u with [facility]. Saw DAXA at prior OV. Previous Dx: R flank pain, kidney stones, gross hematuria. S/p ESWL 11/18/20. CT AP wo con done 10/11/23 at [facility].Was given Tamsulosin, however stopped taking after [...] Information MO HAYDEN, Yehuda Haddad, URL [address] [id number]- Additional Instructions: 6 months Patient Education Dietary [...] joint sup (more content not included)... Normal [facility] Comment on above: Result Comment: Elec tronically Signed By: Yehuda HASSAN MD\.br\Date and Time Signed: 10/26/23 09:11 EST\.br\Electronically Co-Signed By: Chantal Bishop\Date and Time Co-Signed: 10/26/23 09:09 EST RAD - CT Reporton 10-15-2023 RAD - CT Report [id number]# 1.00TIFF Normal [facility] RAD - CT Report [id number]#1 .00TIFF Normal [facility] RAD - MISCon 10-15-2023 RAD - MISC [id number]#1 .00TIFF Normal [facility] RAD - MISC [id number]#1 .00TIFF Normal [facility] Ambulatory Visit Summaryon 1 12-10-2022 Ambulatory Visit Summary MIKY FUENTES :1950 Visit Date:10/09/2023 Ambulatory Visit Instructions Your Diagnosis Gross hematuria Right flank pain Tests Performed Urnls Dip Stick Auto w/o Microscopy POC 36056 Your Care Team Attending Physician - DORA [...] Urnls Dip Stick Auto w/o Microscopy POC 14694 (10/09/2023) Bilirubin Urine Dipstick - Negative Blood Urine Dipstick - 3+ Large Glucose Urine Dipstick - Negative Ketones Urine Dipstick - Negative Leukocytes Urine Dipstick - Negative Nitrite Urine Dipstick - Negative Protein Urine Dipstick - 3+ (300 mg/dl) Specific Violet Urine Dipstick - >=1.030 Urine Appearance Urine Dipstick - Clear Urine Color Urine Dipstick - Yellow Urobilinogen Urine Dipstick - Normal 0.2-1 EU/dl pH Urine Dipstick - 5.5 Allergies Liberty (Unknown) Dogs (Unknown) Milk Products (Unknown) Mold [...] choosing us for your care. Normal [facility] Patient Educationon 10-09-20 Patient Education [...] these instructions at home: Medicines ? Take mqva-ftu-qtlhdoy and prescription medicines only as told by [...] the blood stops without treatment. ? Take hlsw-gcp-lalbbvy and prescription medicines only as told by your health care provider. ? Drink enough fluid to keep your urine pale yellow. This information is not intended to replace advice given to you by your health care provider. Make sure you discuss any questions you have with your health care provider. Document Revised: 06/15/2021 Document Reviewed: 06/15/2021 [employer] Patient Education ? 2022 [employer]. Normal [facility] Urology Office/Clinic Noteon 10-09-2023 Urology [...] Daily, # 30 cap(s), Refills(s) 0, Pharmacy: [facility], 165, cm, 10/09/23 15:24:00 EST, Height/Length Dosing, 113, kg, 10/09/23 15:24:00 EST, Weight Dosing CT Abdomen w/o Contrast E&M of Est. Patient Moderate 30-39 Min 89011 2. Kidney stones (N20.0: Calculus of kidney) see #1 KUB from this spring showed several medium (6-7mm) R renal stones has had multiple lithotripsy in past Ordered: tamsulosin, 0.4 mg = 1 cap(s), Oral, Daily, # 30 cap(s), Refills(s) 0, Pharmacy: [facility], 165, cm, 10/09/23 15:24:00 EST, Height/Length Dosing, 113, kg, 10/09/23 15:24:00 EST, Weight Dosing CT Abdomen w/o Contrast E&M of Est. Patient Moderate 30-39 Min 93004 3. Gross hematuria (R31.0: Gross hematuria) see #1 Ordered: tamsulosin, 0.4 mg = 1 cap(s), Oral, Daily, # 30 cap(s), Refills(s) 0, Pharmacy: [facility], 165, cm, 10/09/23 15:24:00 EST, Height/Length Dosing, 113, kg, 10/09/23 15:24:00 EST, Weight Dosing CT Abdomen w/o Contrast E&M of Est. Patient Moderate 30-39 Min 36675 Urnls Dip Stick Auto w/o Microscopy POC 96005 Follow-up With When Contact Information INGE CARDONA, DORA [place], [address] [facility] [place] [address] Business (1) Additional Instructions: pending [...] Oral, B (more content not included)... Normal [facility] Comment on above: Result Comment: Elec tronically Signed By: INGE CARDONA, DORA [place]\.br\Date and Time Signed: 10/09/23 15:49 EST CREATININEon 03-05-2023 Creatinine [Mass/Vol] 1.16 mg/dL Critically high 0.55-1.02 [facility] Comment on above: Performed By: #### C AIYANA #### [facility] [address] [address] [address] Alysha Machuca EGFR-AF MALIAN 56 mL/min/1.73m2 Critically low >=60 [facility] Comment on above: Performed By: #### C AIYANA #### [facility] [address] [address] [address] Alysha Machuca EGFR-NON AF MALIAN 46 mL/min/1.73m2 Critically low >=60 [facility] Comment on above: Performed By: #### C AIYANA #### [facility] [address] [place] [address] ABD/PELVIS WO CONon [...] KYLE CHENEY Date: 2023-03-05 15:08 Normal [facility] VITAMIN B1 (THIAMINE)on 01-28 Vit. B1, Whole Blood 132.2 nmol/L Normal 66.5-200.0 [facility] Comment on above: Performed By: #### V ITB1T ####[facility] [address] [id number]. Alysha Machuca CBC AUTO DIFFon 02-20-2023 BASO # 0.1 103/ul Normal 0.0-0.1 [facility] Comment on above: Performed By: #### C BC #### [facility] [address] [place], [place] [address] Dr. Alysha Machuca Basophils/100 WBC (Bld) 0.9 % Normal 0.2-2.0 [facility] Comment on above: Performed By: #### C BC #### [facility] [address] [place], [place] [address] Dr. Alysha Machuca EO # 0.2 103/ul Normal 0.0-0.7 [facility] Comment on above: Performed By: #### C BC #### [facility] [address] [place] [address] Dr. Alysha Machuca Eosinophils/100 WBC (Bld) 3.0 % Normal 0.9-7.0 [facility] Comment on above: Performed By: #### C BC #### [facility] [address] [place] [address] Dr. Alysha Machuca Erythrocyte distribution width (RBC) [Ratio] 13.9 % Normal 11.0-15.0 [facility] Comment on above: Performed By: #### C BC #### [facility] [address] [place] [address] Dr. Alysha Machuca Hematocrit (Bld) [Volume fraction] 39.5 % Normal 36.0-48.0 [facility] Comment on above: Performed By: #### C BC #### [facility] [address] [place] [address] Dr. Alysha Machuca Hemoglobin (Bld) [Mass/Vol] 12.7 g/dL Normal 12.0-16.0 [facility] Comment on above: Performed By: #### C BC #### [facility] [address] [place] [address] Dr. Alysha Machuca IG # 0.01 10e3/ul Normal 0.00-0.03 [facility] Comment on above: Performed By: #### C BC #### [facility] [address] [place] [address] Dr. Alysha Machuca IG % 0.2 % Normal 0.0-0.5 [facility] Comment on above: Performed By: #### C BC #### [facility] [address] [place] [address] Dr. Alysha Machuca LYMPH # 1.7 103/ul Normal 1.2-3.8 [facility] Comment on above: Performed By: #### C BC #### [facility] [address] [place] [address] Dr. Alysha Machuca Lymphocytes/100 WBC (Bld) 30.7 % Normal 20.5-60.0 [facility] Comment on above: Performed By: #### C BC #### [facility] [address] [place] [address] Dr. Alysha Machuca MANUAL DIFF REQ NO Normal [facility] Comment on above: Performed By: #### C BC #### [facility] [address] [place] [address] Dr. Alysha Machuca MCH (RBC) [Entitic mass] 29.3 pg Normal 26.7-34.0 [facility] Comment on above: Performed By: #### C BC #### [facility] [address] [place] [address] Dr. Alysha Machuca MCHC (RBC) [Mass/Vol] 32.2 g/dL Normal 29.9-35.2 [facility] Comment on above: Performed By: #### C BC #### [facility] [address] [place] [address] Dr. Alysha Machuca MCV (RBC) [Entitic vol] 91.0 fL Normal 81.0-99.0 [facility] Comment on above: Performed By: #### C BC #### [facility] [address] [place] [address] Dr. Alysha Machuca MONO # 0.4 103/ul Normal 0.3-0.8 [facility] Comment on above: Performed By: #### C BC #### [facility] [address] [place] [address] Dr. Alysha Machuca Monocytes/100 WBC (Bld) 6.8 % Normal 1.7-12.0 [facility] Comment on above: Performed By: #### C BC #### [facility] [address] [place] [address] Dr. Alysha Machuca NEUT # 3.3 103/ul Normal 1.4-6.5 [facility] Comment on above: Performed By: #### C BC #### [facility] [address] [place] [address] Dr. Alysha Machuca Neutrophils/100 WBC (Bld) 58.4 % Normal 43.0-75.0 [facility] Comment on above: Performed By: #### C BC #### [facility] [address] [address] [address] Alysha Machuca Platelet mean volume (Bld) [Entitic vol] 9.3 fL Critically low 9.5-13.5 [facility] Comment on above: Performed By: #### C BC #### [facility] [address] [address] [address] Alysha Machuca PLT 186 103/ul Normal 150-450 [facility] Comment on above: Performed By: #### C BC #### [facility] [address] [address] [address] Alysha Machuca RBC 4.34 106/ul Normal 4.20-5.40 [facility] Comment on above: Performed By: #### C BC #### [facility] [address] [address] [address] Alysha Machuca WBC 5.6 103/ul Normal 4.0-11.0 [facility] Comment on above: Performed By: #### C BC #### [facility] [address] [address] [address] Alysha Machuca FERRITINon 02-20-2023 Ferritin [Mass/Vol] 36.0 ng/mL Normal 8.0-252.0 [facility] Comment on above: Performed By: #### F ERR, B12FOL, FETIBC, VITAD ####[facility] [address] [address]DrMaite Machuca IRON AND TIBCon 02-20-2023 % SATURATION 15.8 % Normal [facility] Comment on above: Performed By: #### F ERR, B12FOL, FETIBC, VITAD ####[facility] [address] [address]Dr. Alysha Machuca Iron [Mass/Vol] 53.0 ug/dL Normal 50.0-170.0 [facility] Comment on above: Performed By: #### F ERR, B12FOL, FETIBC, VITAD ####[facility] [address] [address]Dr. Alysha Machuca TIBC DIRECT 335.0 ug/dL Normal 250.0-450.0 [facility] Comment on above: Performed By: #### F ERR, B12FOL, FETIBC, VITAD ####[facility] [address] [place], [place] [address]RiDr. Alysha Machuca MAGNESIUMon 02-20-2023 Magnesium [Mass/Vol] 1.9 mg/dL Normal 1.8-2.4 [facility] Comment on above: Performed By: #### P HOS, CMP, MG #### [facility] [address] [address] [address] Alysha Machuca PHOSPHORUSon 02-20-2023 Phosphate [Mass/Vol] 3.9 mg/dL Normal 2.6-4.7 [facility] Comment on above: Performed By: #### P HOS, CMP, MG #### [facility] [address] [place] [address] Dr. Alysha Machuca PROF 14(COMP METB)on 023 Albumin [Mass/Vol] 3.4 g/dL Normal 3.4-5.0 [facility] Comment on above: Performed By: #### P HOS, CMP, MG #### [facility] [address] [place] [address] Dr. Alysha Machuca Albumin/Globulin [Mass ratio] 0.9 {ratio} Normal [facility] Comment on above: Performed By: #### P HOS, CMP, MG #### [facility] [address] [address] [address] Alysha Machuca ALP [Catalytic activity/Vol] 123 U/L Critically high 46-116 [facility] Comment on above: Performed By: #### P HOS, CMP, MG #### [facility] [address] [place] [address] Dr. Alysha Machuca ALT [Catalytic activity/Vol] 21 U/L Normal 14-59 [facility] Comment on above: Performed By: #### P HOS, CMP, MG #### [facility] [address] [place] [address] Dr. Alysha Machuca Anion gap [Moles/Vol] 13.8 mmol/L Normal [facility] Comment on above: Performed By: #### P HOS, CMP, MG #### [facility] [address] [address] [address] Alysha Machuca AST [Catalytic activity/Vol] 15 U/L Normal 15-37 [facility] Comment on above: Performed By: #### P HOS, CMP, MG #### [facility] [address] [address] [address] Alysha Machuca Bilirubin [Mass/Vol] 0.5 mg/dL Normal 0.2-1.0 [facility] Comment on above: Performed By: #### P HOS, CMP, MG #### [facility] [address] [place] [address] Dr. Alysha Machuca Calcium [Mass/Vol] 9.6 mg/dL Normal 8.5-10.1 [facility] Comment on above: Performed By: #### P HOS, CMP, MG #### [facility] [address] [place] [address] Dr. Alysha Machuca Chloride [Moles/Vol] 103 mmol/L Normal 98-107 [facility] Comment on above: Performed By: #### P HOS, CMP, MG #### [facility] [address] [place] [address] Dr. Alysha Machuca CO2 [Moles/Vol] 25.2 mmol/L Normal 21.0-32.0 [facility] Comment on above: Performed By: #### P HOS, CMP, MG #### [facility] [address] [place] [address] Dr. Alysha Machuca Creatinine [Mass/Vol] 0.95 mg/dL Normal 0.55-1.02 [facility] Comment on above: Performed By: #### P HOS, CMP, MG #### [facility] [address] [place] [address] Dr. Alysha Machuca EGFR-AF MALIAN >60 Normal >=60 [facility] Comment on above: Performed By: #### P HOS, CMP, MG #### [facility] [address] [address] [address] Alysha Machuca EGFR-NON AF MALIAN 58 mL/min/1.73m2 Critically low >=60 [facility] Comment on above: Performed By: #### P HOS, CMP, MG #### [facility] [address] [address] [address] Alysha Machuca Globulin (S) [Mass/Vol] 3.6 g/dL Normal [facility] Comment on above: Performed By: #### P HOS, CMP, MG #### [facility] [address] [address] [address] Alysha Machuca Glucose [Mass/Vol] 96 mg/dL Normal 74-106 [facility] Comment on above: Performed By: #### P HOS, CMP, MG #### [facility] [address] [place] [address] Dr. Alysha Machuca Potassium [Moles/Vol] 4.0 mmol/L Normal 3.5-5.1 [facility] Comment on above: Performed By: #### P HOS, CMP, MG #### [facility] [address] [address] [address] Alysha Machuca Protein [Mass/Vol] 7.0 g/dL Normal 6.4-8.2 [facility] Comment on above: Performed By: #### P HOS, CMP, MG #### [facility] [address] [place] [address] Dr. Alysha Machuca Sodium [Moles/Vol] 138 mmol/L Normal 136-145 [facility] Comment on above: Performed By: #### P HOS, CMP, MG #### [facility] [address] [address] [address] Alysha Machuca Urea nitrogen [Mass/Vol] 21.0 mg/dL Critically high 7.0-18.0 [facility] Comment on above: Performed By: #### P HOS, CMP, MG #### [facility] [address] [address] [address] Alysha Machuca Urea nitrogen/Creatini ne [Mass ratio] 22.1 mg/mg Normal [facility] Comment on above: Performed By: #### P HOS, CMP, MG #### [facility] [address] [place], [place] [address] Dr. Alysha Machuca VIT B12 AND FOLATEon 023 Cobalamin (Vitamin B12) [Mass/Vol] 652.0 pg/mL Normal 193.0-986.0 [facility] Comment on above: Performed By: #### F ERR, B12FOL, FETIBC, VITAD ####[facility] [address] [address]Dr. Alysha Machuca FOLATE 18.30 ng/mL Normal 8.60-58.90 [facility] Comment on above: Performed By: #### F ERR, B12FOL, FETIBC, VITAD ####[facility] [address] [address]Dr. Alysha Machuca VITAMIN D 25 OHon 02-20-2023 VIT D 25-OH 41.7 ng/mL Normal [facility] Comment on above: Performed By: #### F ERR, B12FOL, FETIBC, VITAD ####[facility] [address] [address]Dr. Alysha Machuca VIT D RANGES SEE BELOW Normal [facility] Comment on above: Result Comment: <20 ng/mL Vit D deficient 20 - <30 ng/mL Vit D insufficient 30 - 100 ng/mL Vit D sufficient >100 ng/mL Potential Toxicity Performed By: #### F ERR, B12FOL, FETIBC, VITAD ####[facility] [address] [address]Dr. Alysha Machuca XR KUB 1 VIEWon 02-20-2023 [...] KYLE CHENEY Date: 2023-02-20 15:57 Normal [facility] Office Visit (Cardiology)on 12-06-2022 Follow-up visit Diagnoses/Problems Assessed Anticoagulated (V58.61) (Z79.01) Hyperlipidemia (272.4) (E78.5) Non-ischemic cardiomyopathy (425.4) (I42.8) Paroxysmal atrial fibrillation (427.31) (I48.0) Class 2 obesity with body mass index (BMI) of 36.0 to 36.9 in adult (278.00,V85.36) (E66.9,Z68.36) Never a smoker Orders Class 2 obesity with body mass index (BMI) of 36.0 to 36.9 in adult Healthy Weight Tips; Status:Complete; Done: 50Zbn7558 Some eating tips that can help you lose weight.; Status:Complete; Done: 47Lst1463 Hyperlipidemia Renew: Lovastatin 10 MG Oral Tablet; TAKE 1 TABLET DAILY DIRECTED Paroxysmal atrial fibrillation IO EKG Electrocardiogram- 12 Lead; Status:Complete; Done: 25Pbk9329 SocHx: Never a smoker Tobacco Use Screening; Status:Complete; Done: 53Gvk6914 Patient Instructions Please bring all medicines, vitamins, [...] MG Oral TabletTAKE 1 TABLET Twice daily [place] 3 [place] DIRECTED. Tylenol Arthritis Ext Relief [...] negative for complaint. Vitals Vital Signs Recorded: 16Edt4938 01:27PM Heart Rate43, Apical Yehpogsk639, RUE, Sitting Jmemkxiga39, RUE, Sitting Height5 ft 5 in Kqcfpb366 lb BMI Kwrqfjwizg19.94 kg/m2 BSA Calculated2.07 Tobacco Useb) No PHQ-2 [...] Screening.on 023 Adult depression screening assessment No [facility] y 250 DO Work Phone: Fall risk assessment a) No falls within the last year [facility] y 250 DO Work Phone: Tobacco use status CPHS b) No [facility] y 250 DO Work Phone: VC INJ SCL EDMOND TILE FINISHER VEINSon 0 11-03-2022 VC INJ SCL EDMOND TILE FINISHER VEINS Patient: MIKY FUENTES Exam Date: 11/03/2022 : 1950 Gender:F Ordering : DR WILLARD SHARMA M.D. Admission #: [id number] Family : Order #: [id number] CLICK HERE TO VIEW EXAM RADIOLOGY REPORT PROCEDURE: VEIN CENTER INJECTION SCLEROSING SOLUTION MULTIPLE VEINS SAME COMPARISON: VC INJ SCL EDMOND TILE FINISHER VEINS, 10/27/2022. VC INJ SCL EDMOND TILE FINISHER VEINS, 10/16/2022. INDICATIONS: Pain co-occurrent and due [...] Sharma MD on 11/03/2022 at 12:37 Normal [facility] XR KUB 1 VIEWon 11-03-2022 XR [...] by: KYLE CHENEY Date: 2022-11-03 12:52 Normal [facility] VC INJ SCL EDMOND TILE FINISHER VEINSon 1 VC INJ SCL EDMOND TILE FINISHER VEINS Patient: MIKY FUENTES Exam Date: 10/27/2022 : 1950 Gender:F Ordering : DR WILLARD SHARMA M.D. Admission #: [id number] Family : Order #: [id number] CLICK HERE TO VIEW EXAM RADIOLOGY REPORT PROCEDURE: VEIN CENTER INJECTION SCLEROSING SOLUTION MULTIPLE VEINS SAME COMPARISON: VC INJ SCL [place]MOND TILE FINISHER VEINS, 10/16/2022. VC INJ SCL EDMOND TILE FINISHER VEINS, 10/06/2022. INDICATIONS: Pain co-occurrent and due [...] Sharma MD on 10/27/2022 at 11:46 Normal [facility] VC INJ SCL EDMOND TILE FINISHER VEINSon 1 12-17-2021 VC INJ SCL EDMOND TILE FINISHER VEINS Patient: MIKY FUENTES Exam Date: 10/16/2022 : 1950 Gender:F Ordering : DR WILLARD SHARMA M.D. Admission #: [id number] Family : Order #: [id number] CLICK HERE TO VIEW EXAM RADIOLOGY REPORT PROCEDURE: VEIN CENTER INJECTION SCLEROSING SOLUTION MULTIPLE VEINS SAME COMPARISON: VC INJ SCL EDMOND TILE FINISHER VEINS, 10/06/2022. INDICATIONS: Pain co-occurrent and due [...] M.D. on 10/17/2022 at 08:12 Normal [facility] CREATININEon 10-10-2022 Creatinine [Mass/Vol] 1.11 mg/dL Critically high 0.55-1.02 [facility] Comment on above: Performed By: #### C AIYANA ####[facility] [address] [address]DrMaite Machuca EGFR-AF MALIAN 59 mL/min/1.73m2 Critically low >=60 [facility] Comment on above: Performed By: #### C AIYANA ####[facility] [address] [address]DrMaite Machuca EGFR-NON AF MALIAN 48 mL/min/1.73m2 Critically low >=60 [facility] Comment on above: Performed By: #### C AIYANA ####[facility] [address] [place], [place] [address]EbMaite Machuca VC INJ SCL [place]MOND TILE FINISHER VEINSon 1 12-07-2021 VC INJ SCL [place]MOND TILE FINISHER VEINS Patient: MIKY FUENTES Exam Date: 10/06/2022 : 1950 Gender:F Ordering : DR WILLARD SHARMA M.D. Admission #: [id number] Family : Order #: [id number] CLICK HERE TO VIEW EXAM RADIOLOGY REPORT [...] successful sclerotherapy as described Dictated by: Willard hSarma MD on 10/06/2022 at 13:45 Approved by: Willard Sharma MD on 10/06/2022 at 13:45 Normal [facility] VC CONSULT FOLLOWUPon 2021 VC CONSULT FOLLOWUP Patient: MIKY FUENTES Exam Date: 09/26/2022 : 1950 Gender:F Ordering : DR WILLARD SHARMA M.D. Admission #: [id number] Family : Order #: [id number] CLICK HERE TO VIEW EXAM RADIOLOGY REPORT [...] on 09/26/2022 at 15:44 Approved by: Kyle hCeney M.D. on 09/26/2022 at 15:46 Normal [facility] VC EXT VENOUS RT LIMITEDon 1 11-26-2021 VC EXT VENOUS RT LIMITED Patient: MIKY FUENTES Exam Date: 09/26/2022 : 1950 Gender:F Ordering : DR WILLARD SHARMA M.D. Admission #: [id number] Family : Order #: [id number] CLICK HERE TO VIEW EXAM RADIOLOGY REPORT [...] Cheney M.D. on 09/26/2022 at 15:44 Normal [facility] VC INJ FOAM SCLERO W US MLTI on 09-20-2022 VC INJ FOAM SCLERO W US MLTI Patient: MIKY FUENTES Exam Date: 09/20/2022 : 1950 Gender:F Ordering : DR WILLARD SHARMA M.D. Admission #: [id number] Family : Order #: [id number] CLICK HERE TO VIEW EXAM RADIOLOGY REPORT [...] Kyle Cheney M.D. on 09/20/2022 at 15:43 [facility] CONSULT FOLLOWUPon 2021 VC CONSULT FOLLOWUP Patient: MIKY FUENTES Exam Date: 09/07/2022 : 1950 Gender:F Ordering : DR WILLARD SHARMA M.D. Admission #: [id number] Family : Order #: [id number] CLICK HERE [...] MD on 09/07/2022 at 13:04 Normal [facility] VC EXT VENOUS LT LIMITEDon 1 11-07-2021 VC EXT VENOUS LT LIMITED Patient: MIKY FUENTES Exam Date: 09/07/2022 : 1950 Gender:F Ordering : DR WILLARD SHARMA M.D. Admission #: [id number] Family : Order #: [id number] CLICK HERE TO VIEW EXAM RADIOLOGY REPORT [...] MD on 09/07/2022 at 11:59 Normal [facility] CBC AUTO DIFFon 09-01-2022 BASO # 0.0 103/ul Normal 0.0-0.1 [facility] Comment on above: Performed By: #### C BC #### [facility] [address] [place] [address] Dr. Alysha Machuca Basophils/100 WBC (Bld) 0.6 % Normal 0.2-2.0 [facility] [facility] Comment on above: Performed By: #### C BC #### [facility] [address] [place] [address] Dr. Alysha Machuca EO # 0.3 103/ul Normal 0.0-0.7 [facility] Comment on above: Performed By: #### C BC #### [facility] [address] [place] [address] Dr. Alysha Machuca Eosinophils/100 WBC (Bld) 4.3 % Normal 0.9-7.0 [facility] Comment on above: Performed By: #### C BC #### [facility] [address] [place] [address] Dr. Alysha Machuca Erythrocyte distribution width (RBC) [Ratio] 14.6 % Normal 11.0-15.0 [facility] Comment on above: Performed By: #### C BC #### [facility] [address] [place] [address] Dr. Alysha Machuca Hematocrit (Bld) [Volume fraction] 39.7 % Normal 36.0-48.0 [facility] Comment on above: Performed By: #### C BC #### [facility] [address] [place] [address] Dr. Alysha Machuca Hemoglobin (Bld) [Mass/Vol] 13.1 g/dL Normal 12.0-16.0 [facility] Comment on above: Performed By: #### C BC #### [facility] [address] [place] [address] Dr. Alysha Machuca IG # 0.01 10e3/ul Normal 0.00-0.03 [facility] Comment on above: Performed By: #### C BC #### [facility] [address] [place] [address] Dr. Alysha Machuca IG % 0.2 % Normal 0.0-0.5 [facility] Comment on above: Performed By: #### C BC #### [facility] [address] [place] [address] Dr. Alysha Machuca LYMPH # 1.9 103/ul Normal 1.2-3.8 [facility] Comment on above: Performed By: #### C BC #### [facility] [address] [place] [address] Dr. Alysha Machuca Lymphocytes/100 WBC (Bld) 29.5 % Normal 20.5-60.0 [facility] Comment on above: Performed By: #### C BC #### [facility] [address] [place] [address] Dr. Alysha Machuca MANUAL DIFF REQ NO Normal [facility] Comment on above: Performed By: #### C BC #### [facility] [address] [place] [address] Dr. Alysha Machuca MCH (RBC) [Entitic mass] 29.8 pg Normal 26.7-34.0 [facility] Comment on above: Performed By: #### C BC #### [facility] [address] [place] [address] Dr. Alysha Machuca MCHC (RBC) [Mass/Vol] 33.0 g/dL Normal 29.9-35.2 [facility] Comment on above: Performed By: #### C BC #### [facility] [address] [place] [address] Dr. Alysha Machuca MCV (RBC) [Entitic vol] 90.2 fL Normal 81.0-99.0 [facility] Comment on above: Performed By: #### C BC #### [facility] [address] [place] [address] Dr. Alysha Machuca MONO # 0.5 103/ul Normal 0.3-0.8 [facility] Comment on above: Performed By: #### C BC #### [facility] [address] [place] [address] Dr. Alysha Machuca Monocytes/100 WBC (Bld) 7.0 % Normal 1.7-12.0 [facility] Comment on above: Performed By: #### C BC #### [facility] [address] [place] [address] Dr. Alysha Machuca NEUT # 3.8 103/ul Normal 1.4-6.5 [facility] Comment on above: Performed By: #### C BC #### [facility] [address] [place] [address] Dr. Alysha Machuca Neutrophils/100 WBC (Bld) 58.4 % Normal 43.0-75.0 [facility] Comment on above: Performed By: #### C BC #### [facility] [address] [place] [address] Dr. Alysha Machuca Platelet mean volume (Bld) [Entitic vol] 9.5 fL Normal 9.5-13.5 [facility] Comment on above: Performed By: #### C BC #### [facility] [address] [place] [address] Dr. Alysha Machuca PLT 235 103/ul Normal 150-450 [facility] Comment on above: Performed By: #### C BC #### [facility] [address] [place] [address] Dr. Alysha Machuca RBC 4.40 106/ul Normal 4.20-5.40 [facility] Comment on above: Performed By: #### C BC #### [facility] [address] [address] [address] Alysha Machuca WBC 6.6 103/ul Normal 4.0-11.0 [facility] Comment on above: Performed By: #### C BC #### [facility] [address] [address] [address] Alysha Machuca PROF CHEM 8 (BAS METB)on Anion gap [Moles/Vol] 7.7 mmol/L Normal [facility] Comment on above: Performed By: #### B MP ####[facility] [address] [address]DrMaite Machuca Calcium [Mass/Vol] 9.8 mg/dL Normal 8.5-10.1 [facility] Comment on above: Performed By: #### B MP ####[facility] [address] [address]DrMaite Machuca Chloride [Moles/Vol] 104 mmol/L Normal 98-107 [facility] Comment on above: Performed By: #### B MP ####[facility] [address] [address]DrMaite Machuca CO2 [Moles/Vol] 29.2 mmol/L Normal 21.0-32.0 [facility] Comment on above: Performed By: #### B MP ####[facility] [address] [address]DrMaite Machuca Creatinine [Mass/Vol] 1.05 mg/dL Critically high 0.55-1.02 [facility] Comment on above: Performed By: #### B MP ####[facility] [address] [address]DrMaite Machuca EGFR-AF MALIAN >60 Normal >=60 [facility] Comment on above: Performed By: #### B MP ####[facility] [address] [address]Dr. Alysha Machuca EGFR-NON AF MALIAN 52 mL/min/1.73m2 Critically low >=60 [facility] Comment on above: Performed By: #### B MP ####[facility] [address] [id number]. Alysha Machuca Glucose [Mass/Vol] 107 mg/dL Critically high 74-106 [facility] Comment on above: Performed By: #### B MP ####[facility] [address] [id number]. Alysha Sven Potassium [Moles/Vol] 3.9 mmol/L Normal 3.5-5.1 [facility] Comment on above: Performed By: #### B MP ####[facility] [address] [address]Dr. Alysha Sven Sodium [Moles/Vol] 137 mmol/L Normal 136-145 [facility] Comment on above: Performed By: #### B MP ####[facility] [address] [address]Dr. Alysha Sven Urea nitrogen [Mass/Vol] 16.0 mg/dL Normal 7.0-18.0 [facility] Comment on above: Performed By: #### B MP ####[facility] [address] [phone]. Alysha Sven Urea nitrogen/Creatini ne [Mass ratio] 15.2 mg/mg Normal [facility] Comment on above: Performed By: #### B MP ####[facility] [address] [address]Dr. Alysha Sven VC INJ FOAM SCLERO W US MLTI on 08-31-2022 VC INJ FOAM SCLERO W US MLTI Patient: MIKY FUENTES Exam Date: 08/31/2022 : 1950 Gender:F Ordering : DR WILLARD SHARMA M.D. Admission #: [id number] Family : Order #: [id number] CLICK HERE TO VIEW EXAM RADIOLOGY REPORT [...] compressi (more content not included)... Normal [facility] VC CONSULT FOLLOWUPon 2021 VC CONSULT FOLLOWUP Patient: MIKY FUENTES Exam Date: 08/22/2022 : 1950 Gender:F Ordering : DR WILLARD SHARMA M.D. Admission #: [id number] Family : Order #: [id number] CLICK HERE TO VIEW EXAM RADIOLOGY REPORT [...] Sharma MD on 08/22/2022 at 10:45 Normal [facility] VC EXT VENOUS RT LIMITEDon 1 VC EXT VENOUS RT LIMITED Patient: MIKY FUENTES Exam Date: 08/22/2022 : 1950 Gender:F Ordering : DR WILLARD SHARMA M.D. Admission #: [id number] Family : Order #: [id number] CLICK HERE TO VIEW EXAM RADIOLOGY REPORT [...] Willard Sharma MD on 08/22/2022 at 10:21 [facility] VC INJ FOAM SCLERO W US MLTI on 08-17-2022 VC INJ FOAM SCLERO W US MLTI Patient: MIKY FUENTES Exam Date: 08/17/2022 : 1950 Gender:F Ordering : DR WILLARD SHARMA M.D. Admission #: [id number] Family : Order #: [id number] CLICK HERE TO VIEW EXAM RADIOLOGY REPORT [...] take (more content not included)... Normal [facility] VC CONSULT FOLLOWUPon 2021 VC CONSULT FOLLOWUP Patient: MIKY FUENTES Exam Date: 08/07/2022 : 1950 Gender:F Ordering : DR WILLARD SHARMA M.D. Admission #: [id number] Family : Order #: [id number] CLICK HERE TO VIEW EXAM RADIOLOGY REPORT [...] Sharma MD on 08/07/2022 at 13:31 Normal [facility] VC EXT VENOUS LT LIMITEDon 1 VC EXT VENOUS LT LIMITED Patient: MIKY FUENTES Exam Date: 08/07/2022 : 1950 Gender:F Ordering : DR WILLARD SHARMA M.D. Admission #: [id number] Family : Order #: [id number] CLICK HERE TO VIEW EXAM RADIOLOGY REPORT [...] Sharma MD on 08/07/2022 at 12:01 Normal [facility] VC INJ FOAM SCLERO W US MLTI on 08-01-2022 VC INJ FOAM SCLERO W US MLTI Patient: MIKY FUENTES Exam Date: 08/01/2022 : 1950 Gender:F Ordering : DR WILLARD SHARMA M.D. Admission #: [id number] Family : Order #: [id number] CLICK HERE TO VIEW EXAM RADIOLOGY REPORT [...] compr (more content not included)... Normal [facility] VC CONSULT FOLLOWUPon 2021 VC CONSULT FOLLOWUP Patient: MIKY FUENTES Exam Date: 07/17/2022 : 1950 Gender:F Ordering : DR WILLARD SHARMA M.D. Admission #: [id number] Family : Order #: [id number] CLICK HERE TO VIEW EXAM RADIOLOGY REPORT [...] Cheney M.D. on 07/17/2022 at 12:18 Normal [facility] VC EXT VENOUS RT LIMITEDon 0 07-17-2022 VC EXT VENOUS RT LIMITED Patient: MIKY FUENTES Exam Date: 07/17/2022 : 1950 Gender:F Ordering : DR WILLARD SHARMA M.D. Admission #: [id number] Family : Order #: [id number] CLICK HERE TO VIEW EXAM RADIOLOGY REPORT [...] Kyle Cheney M.D. on 07/17/2022 at 12:14 [facility] VC INJ FOAM SCLERO W US MLTI on 07-12-2022 VC INJ FOAM SCLERO W US MLTI Patient: MIKY FUENTES Exam Date: 07/12/2022 : 1950 Gender:F Ordering : DR WILLARD SHARMA M.D. Admission #: [id number] Family : Order #: [id number] CLICK HERE TO VIEW EXAM RADIOLOGY REPORT [...] da (more content not included)... Normal [facility] VC CONSULT FOLLOWUPon 2021 VC CONSULT FOLLOWUP Patient: MIKY FUENTES Exam Date: 06/30/2022 : 1950 Gender:F Ordering : DR WILLARD SHARMA M.D. Admission #: [id number] Family : Order #: [id number] CLICK HERE TO VIEW EXAM RADIOLOGY REPORT [...] Sharma MD on 06/30/2022 at 13:21 Normal [facility] VC EXT VENOUS LT LIMITEDon 0 06-30-2022 VC EXT VENOUS LT LIMITED Patient: MIKY FUENTES Exam Date: 06/30/2022 : 1950 Gender:F Ordering : DR WILLARD SHARMA M.D. Admission #: [id number] Family : Order #: [id number] CLICK HERE TO VIEW EXAM RADIOLOGY REPORT [...] Sharma MD on 06/30/2022 at 13:02 Normal [facility] ALBUMIN, RANDOM URINE W/CREA TININEon 06-26-2022 ALBUMIN, URINE 12.7 mg/dL Normal See Note: [facility] Comment on above: Result Comment: Refe rence Range: Reference Range Not established Performed By: #### 7 600, 496, 24937, 6517 #### [facility] [address], [address] [place] [address] Desktop Support Engineer: Marek Subramanian MD ALBUMIN/CREATININ E RATIO, RANDOM [...] category. Performed By: #### 7 600, 496, 67573, 6517 #### [facility] [place] [address] Desktop Support Engineer: Marek Subramanian MD Creatinine (U) [Mass/Vol] 205 mg/dL Normal 20-275 [facility] Comment on above: Performed By: #### 7 600, 496, 78937, 6517 #### [facility] [address] [place] [address] Desktop Support Engineer: Marek Subramanian MD [facility]-26-2022 Albumin [Mass/Vol] 3.9 g/dL Normal 3.6-5.1 [facility] Comment on above: Performed By: #### 7 600, 496, 35151, 6517 #### [facility] [place] [address] Desktop Support Engineer: Marek Subramanian MD Albumin/Globulin [Mass ratio] 1.4 {ratio} Normal 1.0-2.5 [facility] Comment on above: Performed By: #### 7 600, 496, 15942, 6517 #### [facility] [place] [address] Desktop Support Engineer: Marek Subramanian MD ALP [Catalytic activity/Vol] 106 U/L Normal 37-153 [facility] Comment on above: Performed By: #### 7 600, 496, 36419, 6517 #### [facility] [place] [address] Desktop Support Engineer: Marek Subramanian MD ALT [Catalytic activity/Vol] 10 U/L Normal 6-29 [facility] Comment on above: Performed By: #### 7 600, 496, 11057, 6517 #### [facility] of [address] [place] [address] Desktop Support Engineer: Marek Subramanian MD AST [Catalytic activity/Vol] 13 U/L Normal 10-35 [facility] Comment on above: Performed By: #### 7 600, 496, 00752, 6517 #### [facility] [address] [place] [address] Desktop Support Engineer: Marek Subramanian MD Bilirubin [Mass/Vol] 0.8 mg/dL Normal 0.2-1.2 [facility] Comment on above: Performed By: #### 7 600, 496, 77020, 6517 #### [facility] [place] [address] Desktop Support Engineer: Marek Subramanian MD BUN/CREATININE RATIO NOT APPLICABLE Normal 6-22 [facility] Comment on above: Performed By: #### 7 600, 496, 43554, 6517 #### [facility] [place] [address] Desktop Support Engineer: Marek Subramanian MD Calcium [Mass/Vol] 9.9 mg/dL Normal 8.6-10.4 [facility] Comment on above: Performed By: #### 7 600, 496, 23430, 6517 #### [facility] [address] [place] [address] Desktop Support Engineer: Marek Subramanian MD Chloride [Moles/Vol] 109 mmol/L Normal 98-110 [facility] Comment on above: Performed By: #### 7 600, 496, 44385, 6517 #### [facility] [address] [place] [address] Desktop Support Engineer: Marek Subramanian MD CO2 [Moles/Vol] 24 mmol/L Normal 20-32 [facility] Comment on above: Performed By: #### 7 600, 496, 53001, 6517 #### [facility] [place] [address] Desktop Support Engineer: Marek Subramanian MD Creatinine [Mass/Vol] 0.88 mg/dL Normal 0.60-1.00 [facility] Comment on above: Performed By: #### 7 600, 496, 33006, 6517 #### [facility] [place] [address] Desktop Support Engineer: Marek Subramanian MD GFR/1.73 sq M.predicted among non-blacks MDRD (S/P/Bld) [Vol rate/Area] 70 mL/min/{1.73_m2} Normal > OR = 60 [facility] Comment on above: Result Comment: The eGFR is based on the CKD-EPI 2020 equation. To calculate the new eGFR from a previous Creatinine or Cystatin C result, go to https://www.kidney.org/professionals/ kdoqi/gfr%5Fcalculator Performed By: #### 7 600, 496, 29910, 6517 #### [facility] [place] [address] Desktop Support Engineer: Marek Subramanian MD Globulin (S) [Mass/Vol] 2.7 g/dL Normal 1.9-3.7 [facility] Comment on above: Performed By: #### 7 600, 496, 65181, 6517 #### [facility] [place] [address] Desktop Support Engineer: Marek Subramanian MD Glucose [Mass/Vol] 91 mg/dL Normal 65-99 [facility] Comment on above: Result Comment: Fasting reference interval Performed By: #### 7 600, 496, 74997, 6517 #### [facility] [place] [address] Desktop Support Engineer: Marek Subramanian MD Potassium [Moles/Vol] 4.0 mmol/L Normal 3.5-5.3 [facility] Comment on above: Performed By: #### 7 600, 496, 85884, 6517 #### [facility] of [address], [address] [place] [address] Desktop Support Engineer: Marek Subramanian MD Protein [Mass/Vol] 6.6 g/dL Normal 6.1-8.1 [facility] Comment on above: Performed By: #### 7 600, 496, 44118, 6517 #### [facility] [address], [address] [place] [address] Desktop Support Engineer: Marek Subramanian MD Sodium [Moles/Vol] 143 mmol/L Normal 135-146 [facility] Comment on above: Performed By: #### 7 600, 496, 06360, 6517 #### [facility] [address], [address] [place] [address] Desktop Support Engineer: Marek Subramanian MD Urea nitrogen [Mass/Vol] 15 mg/dL Normal 7-25 [facility] Comment on above: Performed By: #### 7 600, 496, 23484, 6517 #### [facility] [address], [address] [place] [address] Desktop Support Engineer: Marek Subramanian MD HEMOGLOBIN A1con 06-26-2022 HEMOGLOBIN [...] diagnosis of diabetes in children. According to [place] [employer] Association (ADA) guidelines, hemoglobin A1c <7.0% represents optimal control in non- diabetic patients. Different metrics may apply to specific patient populations. Standards of Medical Care in Diabetes(ADA). Performed By: #### 7 600, 496, 46067, 6517 #### [facility] [address], [address] [place] [address] Desktop Support Engineer: Marek Subramanian MD LIPID PANEL, STANDARDon 08- Cholesterol [Mass/Vol] 171 mg/dL Normal <200 [facility] Comment on above: Order Comment: FASTI NG:YES FASTING: YES Performed By: #### 7 600, 496, 11714, 6517 #### [facility] [address], [address] [place] [address] Desktop Support Engineer: Marek Subramanian MD Cholesterol in HDL [Mass/Vol] 60 mg/dL Normal > OR = 50 [facility] Comment on above: Order Comment: FASTI NG:YES FASTING: YES Performed By: #### 7 600, 496, 90049, 6517 #### [facility] [address], [address] [place] [address] Desktop Support Engineer: Marek Subramanian MD Cholesterol in LDL [Mass/Vol] [...] LDL-C. Nikita SS et al. LEWIS. 2013;310(19): 9411-6303 (http://education.NanoVelos.Misoca/faq/JZU927) Performed By: #### 7 600, 496, 44524, 6517 #### [facility] [address], [address] [place] [address] Desktop Support Engineer: Marek Subramanian MD Cholesterol.total /Cholesterol in HDL [Mass ratio] 2.9 {ratio} Normal <5.0 [facility] Comment on above: Order Comment: FASTI NG:YES FASTING: YES Performed By: #### 7 600, 496, 90518, 6517 #### [facility] [address], [address] [place] [address] Desktop Support Engineer: Marek Subramanian MD NON HDL CHOLESTEROL 111 mg/dL (calc) Normal <130 [facility] Comment on above: Order Comment: FASTI NG:YES FASTING: YES Result Comment: For patients with diabetes plus 1 major ASCVD risk factor, treating to a non-HDL-C goal of <100 mg/dL (LDL-C of <70 mg/dL) is considered a therapeutic option. Performed By: #### 7 600, 496, 33986, 6517 #### [facility] [address] [place] [address], [address] Desktop Support Engineer: Marek Subramanian MD Triglyceride [Mass/Vol] 95 mg/dL Normal <150 [facility] Comment on above: Order Comment: FASTI NG:YES FASTING: YES Performed By: #### 7 600, 496, 97357, 6517 #### [facility] [address] [place] [address], [address] Desktop Support Engineer: Marek Subramanian MD VC INJ FOAM SCLERO W US MLTI on 06-26-2022 VC INJ FOAM SCLERO W US MLTI Patient: MIKY FUENTES Exam Date: 06/26/2022 : 1950 Gender:F Ordering : DR WILLARD SHARMA M.D. Admission #: [id number] Family : Order #: [id number] CLICK HERE TO VIEW EXAM RADIOLOGY REPORT [...] vein medial distal lower leg/ankle. A large windows application packager vein was occluded with manual pressure until [...] varices, (more content not included)... Normal [facility] VC CONSULT FOLLOWUPon 2021 VC CONSULT FOLLOWUP Patient: MIKY FUENTES Exam Date: 06/19/2022 : 1950 Gender:F Ordering : DR WILLARD SHARMA M.D. Admission #: [id number] Family : Order #: [id number] CLICK HERE TO VIEW EXAM RADIOLOGY REPORT [...] Kyle Cheney M.D. on 06/19/2022 at 12:14 [facility] VC EXT VENOUS RT LIMITEDon 0 06-19-2022 VC EXT VENOUS RT LIMITED Patient: MIKY FUENTES Exam Date: 06/19/2022 : 1950 Gender:F Ordering : DR WILLARD SHARMA M.D. Admission #: [id number] Family : Order #: [id number] CLICK HERE TO VIEW EXAM RADIOLOGY REPORT [...] Cheney M.D. on 06/19/2022 at 12:11 Normal [facility] VC INJ FOAM SCLERO W US MLTI on 06-13-2022 VC INJ FOAM SCLERO W US MLTI Patient: MIKY FUENTES Exam Date: 06/13/2022 : 1950 Gender:F Ordering : DR WILLARD SHARMA M.D. Admission #: [id number] Family : Order #: [id number] CLICK HERE TO VIEW EXAM CORRECTION made [...] Kyle Cheney M.D. on 06/19/2022 at 12:17 [facility] VC CONSULT FOLLOWUPon 2021 VC CONSULT FOLLOWUP Patient: MIKY FUENTES Exam Date: 05/31/2022 : 1950 Gender:F Ordering : DR WILLARD SHARMA M.D. Admission #: [id number] Family : Order #: [id number] CLICK HERE TO VIEW EXAM RADIOLOGY REPORT [...] Cheney M.D. on 05/31/2022 at 12:18 Normal [facility] VC EXT VENOUS LT LIMITEDon 0 05-31-2022 VC EXT VENOUS LT LIMITED Patient: MIKY FUENTES Exam Date: 05/31/2022 : 1950 Gender:F Ordering : DR WILLARD SHARMA M.D. Admission #: [id number] Family : Order #: [id number] CLICK HERE TO VIEW EXAM RADIOLOGY REPORT [...] Cheney M.D. on 05/31/2022 at 12:13 Normal [facility] CT ABD/PELVIS WO CONon 05-26 CT [...] 16:43 Normal [facility] VC ENDOVENOUS ABL 1ST V LTon 05-23-2022 VC ENDOVENOUS ABL 1ST V LT Patient: MIKY FUENTES Exam Date: 05/23/2022 : 1950 Gender:F Ordering : DR WILLARD SHARMA M.D. Admission #: [id number] Family : Order #: [id number] CLICK HERE TO VIEW EXAM RADIOLOGY REPORT [...] Cheney M.D. on 05/23/2022 at 12:34 Normal [facility] US KIDNEYSon 05-05-2022 US KIDNEYS EXAMINATION: [...] WILLARD SHARMA Date: 2022-05-05 13:29 Normal [facility] XR KUB 1 VIEWon 05-05-2022 XR [...] by: KYLE CHENEY Date: 2022-05-05 15:54 Normal [facility] MAMM SCREEN 3D TANMAY CADon 05-04-2022 MG MAMM SCREEN 3D TANMAY CAD Patient: MIKY FUENTES Exam Date: 05/04/2022 : 1950 Gender:F Ordering : DR CONNOR ANAYA Admission #: [id number] Family : Order #: [id number] CLICK HERE TO VIEW EXAM RADIOLOGY REPORT [...] colon cancer at age 60. LOCATION: [facility] BREAST COMPOSITION: Scattered areas fibroglandular density. [...] Cheney M.D. on 05/05/2022 at 14:21 Normal [facility] VC CONSULT FOLLOWUPon 2021 VC CONSULT FOLLOWUP Patient: MIKY FUENTES Exam Date: 05/04/2022 : 1950 Gender:F Ordering : DR WILLARD SHARMA M.D. Admission #: [id number] Family : Order #: [id number] CLICK HERE TO VIEW EXAM RADIOLOGY REPORT [...] M.D. on 05/04/2022 at 11:43 Normal [facility] VC EXT VENOUS RT LIMITEDon 0 05-04-2022 VC EXT VENOUS RT LIMITED Patient: MIKY FUENTES Exam Date: 05/04/2022 : 1950 Gender:F Ordering : DR WILLARD SHARMA M.D. Admission #: [id number] Family : Order #: [id number] CLICK HERE TO VIEW EXAM RADIOLOGY REPORT [...] M.D. on 05/04/2022 at 11:17 Normal [facility] CULTURE URINEon 05-03-2022 CULTURE URINE Culture Observations : LIGHT GROWTH OF MIXED GENITAL LUDWIN. NO POTENTIAL PATHOGENS SEEN. Normal [facility] Comment on above: Performed By: #### U RCX ####[facility] [address] [place], [place] [address]VrDr. Alysha Machuca UA RANDOMon 05-03-2022 Bilirubin Ql (U) Negative Normal NEGATIVE [facility] Comment on above: Performed By: #### U A #### [facility] [address] [place] [address] Dr. Alysha Machuca Clarity (U) TURBID Abnormal CLEAR [facility] Comment on above: Performed By: #### U A #### [facility] [address] [place] [address] Dr. Alysha Machuca Color (U) RED Abnormal YELLOW [facility] Comment on above: Result Comment: Prev iously reported as: YELLOW On 05/03/2022 17:30 By CV2 Performed By: #### U A #### [facility] [address] [place] [address] Dr. Alysha Machuca Glucose Ql (U) Negative Normal NEGATIVE [facility] Comment on above: Performed By: #### U A #### [facility] [address] [place] [address] Dr. Alysha Machuca Hemoglobin Ql (U) LARGE Abnormal NEGATIVE [facility] Comment on above: Performed By: #### U A #### [facility] [address] [place] [address] Dr. Alysha Machuca Ketones Ql (U) Negative Normal NEGATIVE [facility] Comment on above: Performed By: #### U A #### [facility] [address] [place] [address] Dr. Alysha Machuca LEUKOCYTES Negative Normal NEGATIVE [facility] Comment on above: Performed By: #### U A #### [facility] [address] [place] [address] Dr. Alysha Machuca Nitrite Ql (U) Negative Normal NEGATIVE [facility] Comment on above: Performed By: #### U A #### [facility] [address] [place] [address] Dr. Alysha Machuca pH (U) 6.0 [pH] Normal 5-9 [facility] Comment on above: Performed By: #### U A #### [facility] [address] [place] [address] Dr. Alysha Machuca SPEC GRAVITY 1.025 Normal 1.005-<=1.025 [facility] Comment on above: Performed By: #### U A #### [facility] [address] [address] [address] Alysha Machuca UA PROTEIN 100 mg/dl Abnormal NEGATIVE/ TRACE [facility] Comment on above: Performed By: #### U A #### [facility] [id number] Alysha Machuca Urobilinogen Qn (U) 0.2 {Luis'U}/dL Normal 0.2 - 1.0 [facility] Comment on above: Performed By: #### U A #### [facility] [address] [place] [address] Dr. Alysha Machuca VC ENDOVENOUS ABL 1ST V RTon 04-26-2022 VC ENDOVENOUS ABL 1ST V RT Patient: MIKY FUENTES Exam Date: 04/26/2022 : 1950 Gender:F Ordering : DR WILLARD SHARMA M.D. Admission #: [id number] Family : Order #: [id number] CLICK HERE TO VIEW EXAM RADIOLOGY REPORT [...] Sharma MD on 04/26/2022 at 10:58 Normal [facility] VC CONSULT FOLLOWUPon 2021 VC CONSULT FOLLOWUP Patient: MIKY FUENTES Exam Date: 04/13/2022 : 1950 Gender:F Ordering : DR WILLARD SHARMA M.D. Admission #: [id number] Family : Order #: [id number] CLICK HERE TO VIEW EXAM RADIOLOGY REPORT [...] Cheney M.D. on 04/13/2022 at 10:59 Normal [facility] VC EXT VENOUS LT LIMITEDon 0 04-13-2022 VC EXT VENOUS LT LIMITED Patient: MIKY FUENTES Exam Date: 04/13/2022 : 1950 Gender:F Ordering : DR WILLARD SHARMA M.D. Admission #: [id number] Family : Order #: [id number] CLICK HERE TO VIEW EXAM RADIOLOGY REPORT [...] M.D. on 04/13/2022 at 10:56 Normal [facility] Office Visit (Cardiology)on 03-22-2022 Follow-up visit [...] Weight Tips; Status:Complete - Retrospective Authorization; Done: [id number] Paroxysmal atrial fibrillation IO EKG Electrocardiogram- 12 Lead; Status:Complete; Done: [id number] SocHx: Never a smoker Tobacco Use Screening; Status:Complete; Done: [id number] Patient Instructions By signing my name below, [...] Oral TabletTake 1 tablet twice a day [place] 3 CAPSTAKE DIRECTED. Tylenol Arthritis Ext Relief [...] negative for complaint. Vitals Vital Signs Recorded: [id number] 02:06PM Heart Rate47, Apical [id number], RUE, Sitting Jywbgoyvd46, RUE, Sitting Height5 ft 5 in Hzsaey945 lb 6.4 oz BMI Rgttucqxlb32.17 kg/m2 BSA Calculated2.19 Tobacco Useb) No PHQ-2 [...] no murmurs (more content not included)... Normal [facility] Tobacco Screening.on 022 Adult depression screening assessment No -[facility] DO Work Phone: Fall risk assessment a) No falls within the last year [facility] DO Work Phone: Tobacco use status CP b) No -[facility] DO Work Phone: VC ENDOVENOUS ABL PERFORATIN G LTon 03-22-2022 VC ENDOVENOUS ABL PERFORATING LT Patient: MIKY FUENTES Exam Date: 03/22/2022 : 1950 Gender:F Ordering : DR WILLARD SHARMA M.D. Admission #: [id number] Family : Order #: [id number] CLICK HERE TO VIEW EXAM RADIOLOGY REPORT PROCEDURE: VEIN CENTER ENDOVENOUS ABLATION VEIN LEFT LEG COMPARISON: None. INDICATIONS: Pain co-occurrent and due to varicose veins of bilateral legs I83.813 OPERATIVE REPORT: Diagnosis: Superficial venous reflux, incompetent perforating veins Procedure: Endovenous laser ablation of the left windows application packager(s) Procedure: The patient was positioned supine on [...] MD (more content not included)... Normal [facility] KAL SCREEN, IFA, W/REFL TITE R/PATTERN [...] indicated. For additional information, please refer to [email or web address].NanoVelos.Misoca/faq/CPC008 (This link is being provided for informational/ educational purposes only.) Performed By: #### 8 97, 6129, 3525, 10156, %[id number] #### [facility] [address], [address] [place], [place] [id number] Desktop Support Engineer: Marek Subramanian MD ANTINUCLEAR ANTIBODIES TITER AND PATTERNon 10-01-2021 KAL PATTERN Nuclear, Centromere Abnormal Ques t [facility] Comment on above: Result Comment: Cent romere pattern is associated with limited cutaneous systemic sclerosis, CREST (Calcinosis, Raynaud's, Esophageal dysmotility, Sclerodactyly, Telangiectasia), primary biliary cholangitis (PBC), and other autoimmune diseases. AC-3: Centromere International Consensus on KAL Patterns (https://doi.org/10.1515/jgpu-5584-4514) Performed By: #### 8 09, 8268, 4420, 83734, %[id number] #### [facility] [address], [address] [place] [address] Desktop Support Engineer: Marek Subramanian MD KAL PATTERN Nuclear, Homogeneous Abnormal Que st Diagn[facility] Comment on above: Result Comment: Homo geneous pattern is associated with systemic lupus erythematosus (SLE), drug-induced lupus and juvenile idiopathic arthritis. AC-1: Homogeneous International Consensus on KAL Patterns (https://doi.org/10.1515/ymsl-8244-7536) Performed By: #### 8 09, 8268, 4420, 95376, %[id number] #### [facility] [address], [address] [place] [address] Desktop Support Engineer: Marek Subramanian MD KAL TITER > OR = 1:1280 Abnormal [facility] Comment on above: Result Comment: Refe rence Range <1:40 Negative 1:40-1:80 Low Antibody Level >1:80 Elevated Antibody Level Performed By: #### 8 09, 8268, 4420, 23785, %[id number] #### [facility] [address], [address] [place], [place] [phone] Desktop Support Engineer: Marek Subramanian MD KAL TITER 1:80 High [facility] Comment on above: Result Comment: A lo w level KAL titer may be present in pre- clinical autoimmune diseases and normal individuals. Reference Range <1:40 Negative 1:40-1:80 Low Antibody Level >1:80 Elevated Antibody Level Performed By: #### 8 09, 8268, 4420, 76961, %[id number] #### [facility] [address] [address] Desktop Support Engineer: Marek Subramanian MD C-REACTIVE PROTEINon 021 CRP [Mass/Vol] 13.4 mg/L High <8.0 [facility] Comment on above: Performed By: #### 8 09, 8268, 4420, 36648, %[id number] #### [facility] [address], [address] [place] [address] Desktop Support Engineer: Marek Subramanian MD RHEUMATOID ARTHRITIS DIAGNOS TIC PANEL 1on 10-01-2021 CYCLIC CITRULLINATED PEPTIDE (CCP) AB (IGG) <16 Normal [facility] Comment on above: Result Comment: Refe rence Range Negative: <20 Weak Positive: 20-39 Moderate Positive: 40-59 Strong Positive: >59 Performed By: #### 8 09, 8268, 4420, 31554, %08100 #### [facility] [address] [address] Desktop Support Engineer: Marek Subramanian MD INTERPRETATION Normal [facility] Comment on above: Result Comment: These serologic results may be found in 10-20% of patients with polyarthritis that is clinically and radiologically indistinguishable from RA. Performed By: #### 8 09, 8268, 4420, 93449, %[id number] #### [facility] [address] [address] Desktop Support Engineer: Marek Subramanian MD RHEUMATOID FACTOR <14 Normal <14 [facility] Comment on above: Performed By: #### 8 09, 8268, 4420, 01675, %50731 #### [facility] [address] [address] Desktop Support Engineer: Marek Subramanian MD SED RATE BY MODIFIED SILAS RENon 10-01-2021 SED RATE BY MODIFIED WESTERGREN 51 mm/h High < OR = 30 [facility] Comment on above: Performed By: #### 8 09, 8268, 4420, 34977, %67836 #### [facility] [address] [address] [facility], [address] [place] [address] Desktop Support Engineer: Marek Subramanian MD Tobacco Screening.on 021 Fall risk assessment a) No falls within the last year [facility] 600 DO Work Phone: Tobacco use status [facility] b) No [facility] 600 DO Work Phone: Vital Signs Date Time Vital Sign Value Performing Clinician Facility 08-28-2024 10:39-0400 Body height 165.1 cm Carmen Lopez MD Work Phone: [facility] 08-28-2024 10:39-0400 Body mass index (BMI) [Ratio] 35.28 kg/m2 Carmen Lopez MD Work Phone: [facility] 08-28-2024 10:39-0400 Body weight 96.16 kg Carmen Lopez MD Work Phone: [facility] 08-28-2024 10:39-0400 Diastolic blood pressure 56 mm[Hg] Carmen Lopez MD Work Phone: [facility] 08-28-2024 10:39-0400 Heart rate 56 /min Carmen Lopez MD Work Phone: [facility] 08-28-2024 10:39-0400 Systolic blood pressure 122 mm[Hg] Carmen Lopez MD Work Phone: [facility] 08-18-2024 10:47-0400 Body height 162.6 cm Connor [employer] Work Phone: [employer] 08-18-2024 10:47-0400 Body mass index (BMI) [Ratio] 36.22 kg/m2 [employer] Work Phone: [employer] 08-18-2024 10:47-0400 Body temperature 97.39 [degF] Connor Tavaresng DO Work Phone: [employer] 08-18-2024 10:47-0400 Body weight 95.71 kg Connor [facility]resng [facility] 08-18-2024 10:47-0400 Diastolic blood pressure 72 mm[Hg] Connor Lewislong DO [facility] 08-18-2024 10:47-0400 Heart rate 64 /min Connor Tavaresng DO [facility] 08-18-2024 10:47-0400 Systolic blood pressure 124 mm[Hg] Connor Tavaresng DO Work Phone: [facility] [email or web address] [facility] 03-06-2024 09:31-0400 Body height 165.1 cm Nick Richardson MD Work Phone: [facility] 03-06-2024 09:31-0400 Body mass index (BMI) [Ratio] 36.78 kg/m2 Nick Richardson MD Work Phone: [facility] 03-06-2024 09:31-0400 Body weight 100.25 kg Nick Richardson MD Work Phone: [facility] 03-06-2024 09:31-0400 Diastolic blood pressure 58 mm[Hg] Nick Richardson MD Work Phone: [facility] 03-06-2024 09:31-0400 Heart rate 44 /min Nick Richardson MD Work Phone: [facility] 03-06-2024 09:31-0400 Systolic blood pressure 104 mm[Hg] Nick Richardson MD Work Phone: [facility] 12-06-2022 13:27-0500 Body height 165.1 cm Connor Tavaresng Work Phone: [facility] 250 DO Work Phone: 12-06-2022 13:27-0500 Body mass index (BMI) [Ratio] 36.94 kg/m2 Connor Marinelli Furlong Work Phone: [facility] 250 DO Work Phone: 12-06-2022 13:27-0500 Body surface area Derived from formula 2.07 m2 Connor Marinelli Furlong Work Phone: [facility] 250 DO Work Phone: 12-06-2022 13:27-0500 Body weight 100.7 kg Connor Marinelli Furlong Work Phone: [facility] 250 DO Work Phone: 12-06-2022 13:27-0500 Diastolic blood pressure 84 mm[Hg] Connor Marinelli Furlong Work Phone: [facility] 250 DO Work Phone: 12-06-2022 13:27-0500 Heart rate 43 /min Connor Marinelli Furlong Work Phone: [facility] 250 DO Work Phone: 12-06-2022 13:27-0500 Systolic blood pressure 130 mm[Hg] Connor Marinelli Furlong Work Phone: [facility] 250 DO Work Phone: 06-30-2022 11:43-0400 Blood Pressure Location Yehuda HASSAN [facility] 06-30-2022 11:43-0400 Diastolic blood pressure 69 mm[Hg] Yehuda HASSAN [facility] 06-30-2022 11:43-0400 Heart rate 60 /min Yehuda HASSAN [facility] 06-30-2022 11:43-0400 Respiratory rate 16 /min Yehuda HASSAN [facility] 06-30-2022 11:43-0400 Systolic blood pressure 129 mm[Hg] Yehuda HASSAN [facility] 03-22-2022 14:06-0400 Body height 165.1 cm Connor G Furlong Work Phone: [facility] 250 DO Work Phone: 03-22-2022 14:06-0400 Body mass index (BMI) [Ratio] 42.17 kg/m2 Connor G Furlong Work Phone: [facility] 250 DO Work Phone: 03-22-2022 14:06-0400 Body surface area Derived from formula 2.19 m2 Connor G Furlong Work Phone: [facility] 250 DO Work Phone: 03-22-2022 14:06-0400 Body weight 114.94 kg Connor G Furlong Work Phone: [facility] 250 DO Work Phone: 03-22-2022 14:06-0400 Diastolic blood pressure 70 mm[Hg] Connor G Furlong Work Phone: [facility] 250 DO Work Phone: 03-22-2022 14:06-0400 Heart rate 47 /min Connor G Furlong Work Phone: [facility] 250 DO Work Phone: 03-22-2022 14:06-0400 Systolic blood pressure 114 mm[Hg] Connor G Furlong Work Phone: [facility] 250 DO Work Phone: 08-16-2021 14:38-0400 Body height 165.1 cm Connor Marinelli Furlong Work Phone: [facility] 600 DO Work Phone: 08-16-2021 14:38-0400 Body mass index (BMI) [Ratio] 42.53 kg/m2 Connor G Furlong Work Phone: [facility] 600 DO Work Phone: 08-16-2021 14:38-0400 Body surface area Derived from formula 2.2 m2 Connor G Furlong Work Phone: [facility] [employer] 600 DO Work Phone: 08-16-2021 14:38-0400 Body weight 115.94 kg Connor Marinelli Furlong Work Phone: [facility] 600 DO Work Phone: 08-16-2021 14:38-0400 Diastolic blood pressure 74 mm[Hg] Connor Marinelli Furlong Work Phone: [facility] 600 DO Work Phone: 08-16-2021 14:38-0400 Heart rate 44 /min Connor Marinelli Furlong Work Phone: [facility] 600 DO Work Phone: 08-16-2021 14:38-0400 Systolic blood pressure 134 mm[Hg] Connor G Furlong Work Phone: [facility] 600 DO Work Phone: Encounters Encounter Date Encounter Type Care Provider Facility Start: 09-03-2024 End: 09-03-2024 Orders Only Connor Marinelli Furlong DO Work Phone: [facility] Start: 09-02-2024 End: 09-02-2024 Bamboo flowsheet aNny HO Work Phone: [facility] Start: 09-02-2024 End: 09-02-2024 Bamboo flowsheet Nany Swanson PA Work Phone: [facility] Start: 09-02-2024 End: 09-04-2024 [facility] Start: 09-02-2024 End: 09-02-2024 ambulatory NANY SWANSON Not Available Start: 09-02-2024 End: 09-02-2024 Office outpatient visit 25 minutes Nany HO Work Phone: [facility] Comment on above: Arthritis of right k nee (Primary Dx); Acute pain of right knee; Chondromalacia, patella, right Start: 08-28-2024 End: 08-28-2024 Office outpatient visit 25 minutes Carmen Lopez MD Work Phone: [facility] Comment on above: Paroxysmal atrial fi brillation (Multi) (Primary Dx); Non-ischemic cardiomyopathy (Multi); Mixed hyperlipidemia; Sinus bradycardia; High risk medication use; Class 2 obesity; BMI 35.0-35.9,adult; Never smoked tobacco Start: 08-28-2024 End: 08-28-2024 ambulatory [facility] Start: 08-19-2024 End: 08-19-2024 Orders Only Connor Anaya DO Work Phone: [facility] Start: 08-18-2024 End: 08-18-2024 ambulatory [facility] Start: 08-18-2024 End: 08-18-2024 ambulatory [facility] Start: 08-18-2024 End: 08-18-2024 Office outpatient visit 25 minutes Connor Tavaresng DO Work Phone: [facility] [...] 07-29-2024 End: 07-29-2024 ambulatory Radha X Orzech Facility:[facility] Start: 07-29-2024 End: 07-29-2024 Patient encounter procedure Radha X Orzech [facility] Start: 07-15-2024 End: 07-15-2024 ambulatory Radha X Orzech Facility:[facility] Start: 07-01-2024 End: 07-01-2024 ambulatory Radha X Orzech [facility] Start: 07-01-2024 End: 07-01-2024 Patient encounter procedure Radha X Orzech [facility] Start: 06-10-2024 End: 06-10-2024 ambulatory Radha X Orzech Facility: [facility] Start: 06-10-2024 End: 06-10-2024 Patient encounter procedure Radha X Orzech [facility] Start: 05-20-2024 End: 05-20-2024 ambulatory Radha X Orzech Facility:[facility] Start: 05-20-2024 End: 05-20-2024 Patient encounter procedure Radha X Orzech [facility] Start: 05-16-2024 End: 05-16-2024 ambulatory [facility] Start: 05-16-2024 End: 05-16-2024 Patient encounter procedure Yehuda HASSAN [facility] Start: 03-26-2024 End: 03-26-2024 ambulatory LESVIA KEITA Not Available Start: 03-06-2024 End: 03-06-2024 Office outpatient visit 25 minutes Nick Richardson MD Work Phone: [facility] Comment on above: Mixed hyperlipidemia (Primary Dx); Paroxysmal atrial fibrillation (Multi); Non-ischemic cardiomyopathy (Multi); Never smoked tobacco; BMI 36.0-36.9,adult; Hyperlipidemia, unspecified hyperlipidemia type Start: 03-06-2024 End: 03-06-2024 ambulatory [facility] Start: 02-18-2024 End: 02-18-2024 ambulatory [facility] Start: 02-18-2024 End: 02-18-2024 ambulatory [facility] Start: 12-24-2023 End: 12-24-2023 ambulatory [facility] Start: 12-13-2023 End: 12-13-2023 ambulatory Yehuda HASSAN Facility:[facility] Start: 12-13-2023 End: 12-13-2023 Patient encounter procedure Yehuda HASSAN [facility] Start: 10-26-2023 End: 10-26-2023 ambulatory Yehuda HASSAN Facility:[facility] Start: 10-09-2023 End: 10-09-2023 ambulatory DULCE ALCAZAR Facility:[facility] Start: 03-13-[address] WILLARD Looney y:[facility] Start: 03-05-2023 End: 03-06-[address] YEHUDA HASSAN . Facility:[facility] Start: 02-20-2023 End: 02-21-2023 ambulatory DOCTOR CLAYTON Facility:[facility] Start: 12-06-2022 ambulatory Nick Richardson II Facility: Start: 12-06-2022 Office outpatient vi sit 25 minutes Connor Anaya Work Phone: [facility] 250 DO Work Phone: Start: 11-20-2022 Rx Renewal Connor Tavares ng Work Phone: [facility] 250 DO Work Phone: Start: [...] preprocedural laboratory examination DR LESVIA MCCLAIN [facility] Start: 09-05-2022 End: 09-05-2022 Patient encounter procedure Yehuda HASSAN [facility] Start: 09-01-2022 End: 09-02-[address] CONNOR ANAYA Facility:[facility] Start: 09-01-2022 End: 09-02-2022 Encounter for preprocedural laboratory examination DR CONNOR ANAYA Facility:[facility] Start: 08-31-2022 End: 09-01-[address] CONNOR ANAYA Facility:[facility] Start: 08-22-2022 Rx Renewal Connor nj Work Phone: [facility] 250 DO Work Phone: Start: 08-22-2022 End: 08-23-[address] CONNOR ANAYA Facility:[facility] Start: 08-17-2022 End: 08-18-[address] CONNOR ANAYA Facility:[facility] Start: 08-11-2022 End: 08-11-2022 Lab Drop off DORA Wu ADAMERY [facility] Start: 08-11-2022 End: 08-11-2022 Patient encounter procedure DORA Washburn INGE [facility] Start: 08-07-2022 End: 08-08-[address] WILLARD SHARMA Facility:[facility] Start: 08-01-2022 End: 08-02-[address] WILLARD SHARMA Facility:[facility] Start: 07-17-2022 End: 07-18-[address] WILLARD SHARMA Facility:[facility] Start: 07-12-2022 End: 07-13-[address] WILLARD SHARMA Facility:[facility] Start: 06-30-2022 End: 07-01-[address] WILLARD SHARMA Facility:[facility] Start: 06-30-2022 End: 06-30-2022 Patient encounter procedure Yehuda HASSAN [facility] Start: 06-26-2022 End: 06-27-[address] WILLARD [...] Facility:[facility] Start: 05-03-2022 End: 05-04-2022 ambulatory [facility] Facility:[facility] Start: 04-26-2022 End: 04-27-[address] WILLARD SHARMA Facility:[facility] Start: 04-13-2022 End: 04-14-[address] WILLARD SHARMA Facility:[facility] Start: 03-22-2022 ambulatory Connor Anaya Facility: Start: 03-22-2022 Office outpatient vi sit 25 minutes Connor Anaya Work Phone: [facility] 250 DO Work Phone: Start: 03-22-2022 End: 03-23-[address] WILLARD SHARMA Facility:[facility] Start: 01-31-2022 ambulatory Connor Anaya Facility: Start: 12-07-2021 Rx Renewal Connor Marinelli Debbielo ng Work Phone: [facility] 250 DO Work Phone: Start: 08-16-2021 Office outpatient vi sit 15 minutes Connoreugenio Tavaresng [facility] DO Work Phone: Imaging result normal Connor Joseph Butler urlong Work Phone: [facility] DO Work Phone: Patient encounter status Connoreugenio Lewislong [facility] 600 DO Work Phone: Procedures Date Procedure [...] Td Vaccines (6 - Td or Tdap) [facility] Start: 02-20-2033 DTaP/Tdap/Td Vaccine s (3 - Td or Tdap) DTaP/Tdap/Td Vaccines (3 - Td or Tdap) [facility] Start: 12-13-2025 Screening for malignant neoplasm of colon Colon Cancer Screening 5 Year Sigmoidoscopy [facility] Comment on above: Postponed from 04/28 (Not Indicated) Start: 08-27-2025 End: 08-27-2025 Patient encounter procedure 08/27/2025 11:20 AM EDT Office [place] [address] [place] [address] Carmen Lopez MD [address] [facility] [place] [address] [facility] Start: 08-18-2025 Adult BMI Screening Adult BMI Screen ing [facility] Start: 08-18-2025 Depression Screening Depression Scre ening [facility] Start: 08-18-2025 Fall Risk Screening Fall Risk Screen ing [facility] Start: 08-18-2025 Tobacco Screening Tobacco Screening [facility] Start: 08-05-2025 Screening for malignant neoplasm of breast Mammogram [facility] Start: 03-25-2025 End: 03-25-2025 Patient encounter procedure 03/25/2025 1:00 PM EDT Office Visit [facility] [address] [place] [address] Jr. Lesvia Mcclain, DO [address] [facility] [address] [place] [address] [facility] Start: 02-17-2025 Adult BMI Follow Up Plan Adult BMI Follow Up Plan [facility] Start: 02-16-2025 End: 02-16-2025 Patient encounter procedure 02/16/2025 9:00 AM EDT [facility] [address] [place] [address] Connor Anaya, DO [address], [place] [address] [facility] Start: 11-04-2024 End: 11-04-2024 Patient encounter procedure 11/04/2024 11:00 AM EST Office Visit [facility] [address] [place] [id number] Jr. Lesvia Mcclain, DO [address] [facility] [address] [place] [address] [facility] Start: 09-11-2024 ambulatory Ambulatory Facility:C D:[id number] Start: 08-28-2024 End: 08-28-2024 Patient encounter procedure 08/28/2024 10:40 AM EDT Office Visit [address] [place] [id number] Carmen Lopez MD [facility] [facility] [place] [address] [facility] Start: 07-26-2024 Screening for malignant neoplasm of breast Mammogram [facility] Start: 06-29-2024 COVID-19 Vaccine ( season) COVID-19 Vaccine ( season) [facility] Start: 06-29-2024 COVID-19 Vaccine ( season) COVID-19 Vaccine ( season) [facility] Start: 06-29-2024 COVID-19 Vaccine ( season) COVID-19 Vaccine () [facility] Start: 06-29-2024 Influenza vaccination [facility] Start: 06-21-2024 Medicare Annual Wellness Visit Medicare Annual Wellness Visit [facility] Start: 03-01-2024 COVID-19 Vaccine ( season) COVID-19 Vaccine ( season) [facility] Start: 01-29-2024 FUV, Provider: Nick Richardson, Status: Pen, Time: 11:20 AM FUV, Provider: Nick Richardson, Status: Pen, Time: 11:20 AM [facility] DO Work Phone: Start: 12-06-2022 FUV, Provider: Nick Richardson, Status: Pen, Time: 1:10 PM FUV, Provider: Nick Richardson, Status: Pen, Time: 1:10 PM [facility] 250 DO Work Phone: Start: 01-31-2022 FUV, Provider: Nick Sarkar, Status: Pen, Time: 2:20 PM FUV, Provider: Nick Sarkar, Status: Pen, Time: 2:20 PM [facility] DO Work Phone: Start: 2010 RSV High Risk: (Elderly (60+) or Population) (1 - Risk 60-74 years 1-dose series) RSV High Risk: (Elderly (60+) or Population) (1 - Risk 60-74 years 1-dose series) [facility] Start: 2010 RSV patient s and/or patients aged 60+ years (1 - 1-dose 60+ series) RSV patients and/or patients aged 60+ years (1 - 1-dose 60+ series) [facility] Start: 1968 Diabetes mellitus screening Diabetes Screening [facility] Start: 1968 Diabetic foot examination Diabetic Foot Exam [facility] Start: 1968 Hepatitis C screening Hepatitis C Sc reening [facility] Start: 1950 Glaucoma screening Diabetic Op hthalmology Exam [facility] Start: 1950 Lipid panel Lipid Panel [facility] Start: 1950 Medicare Annual Wellness Visit Medicare Annual Wellness Visit (AWV) [facility] Start: 1950 Screening for malignant neoplasm of colon [facility] Start: 1950 Screening for osteoporosis Bone Density Scan [facility] Start: 1950 Thyroid stimulating hormone measurement TSH Level [facility] Immunizations Immunization Date Immunization Notes Care Provider Fa cility 11-01-2023 Influenza, High-dose , Quadrivalent Connor Chaitanyang DO Work Phone: [facility] [email or web address] [facility] 11-01-2023 influenza virus vacc ine, unspecified formulation Connor LewisDCMobilityclem DO Work Phone: [facility] 02-20-2023 tetanus toxoid, redu mariano diphtheria toxoid, and acellular pertussis vaccine, adsorbed [employer] [facility] 10-15-2022 Fluzone High-Dose Quadrivalent 0.7 ML Intramuscular Suspension Prefilled Syringe Connoreugenio Anaya Work Phone: [facility] 250 DO Work Phone: 10-15-2022 influenza virus vacc ine, unspecified formulation Yehuda Cursogram [facility] 10-15-2022 influenza, high dose seasonal, preservative-free Nick Richardson MD Work Phone: [facility] Work Phone: 04-29-2022 Comirnaty 30 MCG/0.3 ML Intramuscular Suspension Connor G Debbielong Work Phone: [facility] 250 DO Work Phone: 04-29-2022 COVID-19, mRNA, LNP- S, PF, 100mcg/0.5mL Dose Connor Anaya DO Work Phone: [facility] 04-29-2022 SARS-CoV-2 mRNA (plwajnbhuon-ciih-mknxgi e) vaccine Yehuda HASSAN [facility] 09-08-2021 influenza virus vacc ine, unspecified formulation Yehuda HASSAN [facility] 08-29-2021 Fluzone High-Dose Quadrivalent 0.7 ML Intramuscular Suspension Prefilled Syringe Connor Anaya Work Phone: [facility] 250 DO Work Phone: 08-29-2021 influenza virus vacc ine, unspecified formulation Yehuda HASSAN [facility] 08-29-2021 influenza, high dose seasonal, preservative-free Nick Richardson MD Work Phone: [facility] Work Phone: 08-29-2021 Pfizer-BioNTech COVI D-19 Vacc 30 MCG/0.3ML Intramuscular Suspension Connor Anaya Work Phone: [facility] 12-23-2020 Pfizer-BioNTech COVI D-19 Vacc 30 MCG/0.3ML Intramuscular Suspension Connor Tavaresng Work Phone: [facility] 12-01-2020 Pfizer-BioNTech COVI D-19 Vacc 30 MCG/0.3ML Intramuscular Suspension Connor Lewisng Work Phone: [facility] 09-13-2020 pneumococcal polysaccharide vaccine, 23 valent Connor Debbieclem Work Phone: [facility] 09-03-2020 influenza virus vacc ine, unspecified formulation [employer] [facility] 09-03-2020 influenza, high dose seasonal, preservative-free Nick Richardson MD Work Phone: [facility] Work Phone: 09-03-2020 influenza, injectabl e, quadrivalent, contains preservative Connor G Furlong Work Phone: [facility] 600 DO Work Phone: 08-29-2020 influenza virus vacc ine, unspecified formulation [employer] [facility] 08-29-2020 influenza, high dose seasonal, preservative-free Connor G Furlong Work Phone: [facility] 250 DO Work Phone: 08-29-2020 influenza, injectabl e, quadrivalent, contains preservative Connor Furlong DO Work Phone: [facility] 08-29-2020 pneumococcal polysaccharide vaccine, 23 valent Connor G Furlong Work Phone: [facility] 08-11-2020 influenza virus vacc ine, unspecified formulation [employer] [facility] 08-11-2020 influenza, seasonal, injectable Connor G Furlong Work Phone: [facility] 600 DO Work Phone: 07-29-2020 influenza virus vacc ine, unspecified formulation [employer] [facility] 07-29-2020 influenza, seasonal, injectable Connor G Furlong Work Phone: [facility] 250 DO Work Phone: 09-02-2019 influenza virus vacc ine, unspecified formulation Yehuda HASSAN [facility] 09-02-2019 influenza, high dose seasonal, preservative-free Connor G Furlong [facility] Phone[facility] DO Work Phone: 08-29-2019 influenza virus vacc ine, unspecified formulation Connor G Furlong Work Phone: [facility] 08-29-2019 influenza, seasonal, injectable Connor Furlong DO Work Phone: [facility] 08-11-2019 influenza virus vacc ine, unspecified formulation Yehuda HASSAN [facility] 06-17-2019 zoster vaccine recombinant Connor G Furlong Work Phone: [facility] 05-29-2019 zoster vaccine recombinant Connor G Furlong Work Phone: [facility] 04-15-2019 zoster vaccine recombinant Connor G Furlong Work Phone: [facility] 03-29-2019 zoster vaccine recombinant Connor G Furlong Work Phone: [facility] 08-29-2018 influenza virus vacc ine, unspecified formulation Connor G Furlong [facility] Work Phone: 09-27-2017 influenza virus vacc ine, unspecified formulation Yehuda HASSAN [facility] 09-27-2017 Influenza, injectabl e, Madin Ese Canine Kidney, preservative free, quadrivalent Connor G Furlong Work Phone: [facility] 600 DO Work Phone: 09-26-2017 influenza virus vacc ine, unspecified formulation Connor G Furlong Work Phone: [facility] 250 DO Work Phone: 10-19-2016 influenza virus vacc ine, unspecified formulation Yehuda HASSAN [facility] 10-19-2016 seasonal influenza, intradermal, preservative free Connor G Furlong Work Phone: [facility] 600 DO Work Phone: 10-06-2016 influenza virus vacc ine, unspecified formulation Yehuda HASSAN [facility] 10-06-2016 influenza, seasonal, injectable, preservative free Connor G Furlong Work Phone: [facility] 600 DO Work Phone: 04-10-2016 pneumococcal conjuga te vaccine, 13 valent Connor G Furlong Work Phone: [facility] 04-06-2016 pneumococcal conjuga te vaccine, 13 valent Yehudagerry HASSAN [facility] 08-07-2014 influenza virus vacc ine, unspecified formulation Connor G Furlong Work Phone: [facility] 250 DO Work Phone: 08-07-2014 Influenza, High-dose , Quadrivalent Connor Furlong DO Work Phone: [facility] 08-07-2014 influenza, unspecifi ed formulation Yehudagerry HASSAN [facility] 07-29-2014 influenza virus vacc ine, unspecified formulation Connor G Furlong Work Phone: [facility] 250 DO Work Phone: 07-29-2014 pneumococcal polysaccharide vaccine, 23 valent Connor Marinelli Furlong Work Phone: [facility] 10-02-2013 pneumococcal conjuga te vaccine, 13 valent Connor Marinelli Furlong Work Phone: [facility] 02-14-2013 zoster vaccine, live Connor Lewislong Work Phone: [facility] 10-29-2012 influenza virus vacc ine, unspecified formulation Connor Lewislong Work Phone: [facility] 250 DO Work Phone: 10-29-2012 pneumococcal polysaccharide vaccine, 23 valent Connor Marinelli Furlong Work Phone: [facility] 250 DO Work Phone: 10-29-2010 pneumococcal polysaccharide vaccine, 23 valent Nick Richardson MD Work Phone: [facility] Work Phone: 02-21-2010 pneumococcal polysaccharide vaccine, 23 valent Connor Marinelli Furlong Work Phone: [facility] 02-21-2010 tetanus toxoid, redu mariano diphtheria toxoid, and acellular pertussis vaccine, adsorbed Connor Lewisng Work Phone: [facility] 12-20-2009 novel influenza-H1N1 -09, preservative-free, injectable Connor Lewislong Work Phone: [facility] 600 DO Work Phone: 11-29-2009 novel influenza-H1N1 -09, preservative-free, injectable Connor Lewislong [facility]: [facility] Work Phone: 09-06-1999 TD(adult) unspecifie d formulation; Translations: [Td(adult) unspecified formulation] Connor Anaya Work Phone: [facility] 09-06-1999 tetanus and diphther ia toxoids, adsorbed, preservative free, for adult use (2 Lf of tetanus toxoid and 2 Lf of diphtheria toxoid) Connor Anaya DO Work Phone: [facility] influenza virus vacc ine, unspecified formulation Connor Anaya Work Phone: [facility] [employer] DO Work Phone: Comment on above: 2010Jul 2012 pneumococcal polysaccharide vaccine, 23 valent Connor TavaresMobilewalla Work Phone: [facility] [employer] DO Work Phone: Comment on above: 2010 Payers Date Payer Category Payer Private Health Insurance [facility] [id number] 5 2015 Managed Care Other (unspecified) [facility] [id number] 2015 Medicare [id number] .[id number] 2015 Miscellaneous or Other [facility] [id number] 5 2015 Unknown 2015 Unknown [id number] 1959 Medicare [id number] 1959 Unknown [id number] 1950 Unknown [id number] 2.16840.1.196010.3.579 .2.356 1950 Unknown [id number] 2.16840.1.097883.3.579 .2.356 1950 Unknown [id number] 2.16.840.1.158666.3.579 .2.356 1950 Unknown [id number] 2.16.840.1.538784.3.579 .2.593 1950 Unknown [id number] 2.16.840.1.701834.3.579 .2.593 1950 Unknown [id number] 2.16.840.1.407674.3.579 .2.593 1950 Unknown [id number] 2.16.840.1.683274.3.579 .2.593 1950 Unknown [id number] 2.16.840.1.475645.3.579 .2.593 1950 Unknown [id number] 2.16.840.1.349414.3.579 .2.593 1950 Unknown [id number] 2.16.840.1.259050.3.579 .2.593 1950 Unknown [id number] 2.16.840.1.335663.3.579 .2.593 1950 Unknown [id number] 2.16.840.1.482415.3.579 .2.593 1950 Unknown [id number] 2.16.840.1.619606.3.579 .2.593 1950 Unknown [id number] 2.16840.1.911709.3.579 .2.593 1950 Unknown [id number] 2.16.840.1.109041.3.579 .2.593 1950 Unknown [id number] 2.16.840.1.743262.3.579 .2.593 1950 Unknown [id number] 2.16.840.1.507154.3.579 .2.593 1950 Unknown [id number] 2.16.840.1.059071.3.579 .2.593 1950 Unknown [id number] 2.16.840.1.566180.3.579 .2.593 1950 Unknown [id number] 2.16.840.1.619222.3.579 .2.593 1950 Unknown [id number] 2.16.840.1.946000.3.579 .2.593 1950 Unknown [id number] 2.16.840.1.434734.3.579 .2.593 1950 Unknown [id number] 2.16.840.1.315162.3.579 .2.593 1950 Unknown [id number] 2.16.840.1.328318.3.579 .2.593 1950 Unknown [id number] 2.16.840.1.587815.3.579 .2.593 1950 Unknown [id number] 2.16.840.1.564880.3.579 .2.593 1950 Unknown [id number] 2.16.840.1.434582.3.579 .2.593 1950 Unknown [id number] 2.16.840.1.504065.3.579 .2.593 1950 Unknown [id number] 2.16.840.1.226819.3.579 .2.593 1950 Unknown [id number] 2.16.840.1.371809.3.579 .2.593 1950 Unknown [id number] 2.16.840.1.783155.3.579 .2.593 1950 Unknown [id number] 2.16.840.1.731665.3.579 .2.593 1950 Unknown [id number] 2.16.840.1.708350.3.579 .2.593 1950 Unknown [id number] 2.16.840.1.256589.3.579 .2.593 1950 Unknown [id number] 2.16.840.1.194169.3.579 .2.593 1950 Unknown [id number] 2.16.840.1.640954.3.579 .2.593 1950 Unknown [id number] 2.16.840.1.299271.3.579 .2.593 1950 Unknown [id number] 2.16.840.1.855864.3.579 .2.593 1950 Unknown [id number] 2.16.840.1.586640.3.579 .2. 1950 Unknown [id number] 2.16.840.1.088722.3.579 .2. 1950 Unknown [id number] 2.16.840.1.371984.3.579 .2. 1950 Unknown [id number] 2.16.840.1.140621.3.579 .2. 1950 Unknown [id number] 2.16.840.1.598737.3.579 .2. 1950 Unknown [id number] 2.16.840.1.956212.3.579 .2. 1950 Unknown [id number] 2.16.840.1.110665.3.579 .2 1950 Unknown [id number] 2.16.840.1.528757.3.579 .2. 1950 Unknown [id number] 2.16.840.1.854806.3.579 .2. 1950 Unknown [id number] 2.16.840.1.461575.3.579 .2.1285 1950 Unknown [id number] 2.16.840.1.158486.3.579 .2.1285 1950 Unknown [id number] 2.16.840.1.459161.3.579 .2.1285 1950 Unknown [id number] 2.16.840.1.334444.3.579 .2.1285 1950 Unknown [id number] 2.16.840.1.112515.3.579 .2. 1950 Unknown [id number] 2.16.840.1.791747.3.579 .2. 1950 Unknown [id number] 2.16.840.1.661217.3.579 .2.1244 1950 Unknown [id number] 2.16.840.1.539560.3.579 .2.1244 1950 Unknown [id number] 2.16.840.1.603416.3.579 .2.1244 1950 Unknown [id number] 2.16.840.1.592131.3.579 .2.1259 1950 Unknown [id number] 2.16.840.1.989821.3.579 .2.1259 1950 Unknown [id number] 2.16.840.1.988490.3.579 .2.1259 1950 Unknown [id number] 2.16.840.1.578141.3.579 .2.1259 Social History Date Type Detail Facility Start: 02-20-2023 End: 03-06-2024 Never a smoker Never a smoker [facility] 600 DO Work Phone: Start: 12-28-2021 End: 11-13-2022 Tobacco smoking status Never smoked tobacco (finding) [facility] Tobacco smoking status Never [facility] Start: 02-20-2023 End: 03-06-2024 Sex Assigned At Female [facility] Start: 11-13-2022 End: 08-17-2023 Tobacco use and exposure Smokeless tobacco non-user [facility] Work Phone: Start: 03-06-2024 Alcoholic beverage intake Life time non-drinker (finding) [facility] Work Phone: Start: 1950 Sex assigned at Not on file [facility] Work Phone: Start: 02-25-2024 End: 08-28-2024 Exposure to SARS-CoV-2 (event) Not sure [facility] Start: 08-18-2024 Alcoholic beverage intake Ex-drinker (finding) [facility] Do you belong to any clubs or organizations such as religion groups, unions, fraternal or athletic groups, or school groups? No [facility] Are you now , , , , never or living with a partner? [facility] How often to you hav e a drink containing alcohol? Never [facility] Do you feel stress - tense, restless, nervous, or anxious, or unable to sleep at night because your mind is troubled all the time - these days [OSQ] Only a little [facility] Start: 06-02-2015 Sex Female (finding) [facility] Functional Status Date Assessment Result Facility 08-24-2022 Functional Status N/A [place] 06-30-2022 Functional Status N/A [facility] Clinical Notes 06-30-2022 to 09-03-2024 Connor Anaya DO - 09/03/2024 4:51 PM VIC Pearson - 09/02/2024 1:45 PM ESTTelephone Encounter - Isa Triana CMA - 09/02/2024 12:07 PM ESTPatient InstructionsPatient Instructions Note Date & Type Note Facility 09-03-2024 History of Present illness Narrative Patient has severe OA of the knee. Handicap parking placard printed documented in this encounter [facility] 09-02-2024 History of Present illness Narrative [...] KNEE TODAY EPIC 09/02/24 XRAYS 03/26/24 IN [facility] NO MRI NO MDP / PREDNISONE [...] SILVER ADULT 50+ PO) as directed Orally Windsor-3 Fatty Acids (OMEGA-3 FISH OIL PO) Oral [...] Use: Not At Risk (02/20/2023) Received from [employer], [employer] AUD[facility] Frequency of Alcohol Consumption: Never Average [...] requiring urgent evaluation. documented in this encounter [facility] 09-02-2024 Miscellaneous Notes Patient called to renew her handicap placard. 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 Okay, it is ready documented in this encounter [facility] 09-02-2024 Telephone encounter Note Patient called to renew her handicap placard. 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 [facility] 09-02-2024 Telephone encounter Note Okay, it is ready [facility] 08-28-2024 History of Present illness Narrative [...] once daily., Disp: 90 tablet, Rfl: 3 xitjsnsv-gtn-xhls-FA-vit K-lut (Centrum Silver Women) 8 mg iron-400 mcg-50 mcg tablet, Take 1 tablet by mouth once daily., Disp: , Rfl: omega-3 fatty acids-fish oil (One-Per-Day Windsor-3) 684-1,200 mg capsule, Take 1 capsule (1,200 [...] discussion and plan. documented in this encounter [facility] Work Phone: 08-28-2024 Instructions Hollie Gleason [...] up 7 months documented in this encounter [facility] Work Phone: 08-18-2024 History of Present [...] gradually lost weight documented in this encounter [employer] 07-29-2024 Evaluation + Plan note Diagnostic Tests [...] these instructions at home: Medicines ? Take gkmx-smk-gpjqcjg and prescription medicines only as told by [...] provider. Document Revised: 06/08/2023 Document Reviewed: 06/08/2023 [employer] Patient Education ? 2023 [employer] Hematuria, Adult Hematuria is blood in [...] identify the cause (more content not included)... [facility] 03-06-2024 History of Present illness Narrative [...] once daily., Disp: 90 tablet, Rfl: 3 tgilpjkf-lta-sbbz-FA-vit K-lut (Centrum Silver Women) 8 mg iron-400 mcg-50 mcg tablet, Take 1 tablet by mouth once daily., Disp: , Rfl: omega-3 fatty acids-fish oil (One-Per-Day Windsor-3) 684-1,200 mg capsule, Take 1 capsule (1,200 [...] discussion and plan. documented in this encounter [facility] Work Phone: 03-06-2024 Instructions Ivett Mcpherson [...] of your visit. documented in this encounter [facility] Work Phone: 09-05-2022 Hospital Discharge instructions [...] HASSAN Address: [facility] [address] [place] [address]- Business (1) When:03/05/2023 12:06:31 [facility] 06-30-2022 Hospital Discharge instructions Patient Education 06/30/2022 12:01:44 Kidney Stones, Cfiv-dt-Wqsh Kidney Stones Kidney stones are rock-like masses [...] Follow these instructions at home: Medicines Take ynmt-yzt-zcodhrk and prescription medicines only as told by [...] 04/02/2009 Document Revised: 03/02/2020 Document Reviewed: 03/02/2020 [employer] Patient Education 2020 [employer] Follow Up Care 12/28/2021 15:15:51 With:Yehuda HASSAN MD, URL Address: [address] [place] [address]- When: Unknown [facility] Evaluation + Plan note Future Appointments Appointment Date:03/02/2023 11:00:00 AM Scheduled Provider:Yehuda HASSAN MD Location:[facility] Appointment Type:URO Office Visit [facility] Evaluation + Plan note Future Appointments Appointment Date:03/02/2023 11:00:00 AM Scheduled Provider:Yehuda HASSAN MD Location:[facility] Appointment Type:URO Office Visit Diagnostic Tests PendingUrine Culture 08/11/22 [facility] Evaluation + Plan note Future Appointments Appointment Date:03/02/2023 11:00:00 AM Scheduled Provider:Yehuda HASSAN MD Location:[facility] Appointment Type:URO Office Visit Diagnostic Tests PendingUroVysion Fish and Urine Cyto ([facility]) 09/05/22 [facility] Evaluation + Plan note Future Appointments Appointment Date:05/16/2024 10:45:00 AM Scheduled Provider:Yehuda HASSAN MD Location:[facility] Appointment Type:URO Office Visit [facility] Evaluation + Plan note Future Appointments Appointment Date:05/20/2024 11:00:00 AM Scheduled Provider:RAAD Back APRN, [place] X Location:[facility] Appointment Type:URO Office Visit [facility] Evaluation + Plan note Future Appointments Appointment Date:06/10/2024 03:00:00 PM Scheduled Provider:RAAD Back APRN, [place] [facility] Location:[facility] Appointment Type:URO Office Visit [facility] Evaluation + Plan note Future Appointments Appointment Date:07/01/2024 02:30:00 PM Scheduled Provider:RAAD Back APRN, [place] [facility] Location:[facility] Appointment Type:URO Office Visit [facility] Evaluation note Diagnosis Mixed hyperlipidemia- Primary Paroxysmal atrial fibrillation (Multi) Atrial fibrillation Non-ischemic cardiomyopathy (Multi) Other primary cardiomyopathies Never smoked tobacco BMI 36.0-36.9,adult Hyperlipidemia, unspecified hyperlipidemia type documented in this encounter [facility] Work Phone: Evaluation note* Diagnosis Primary hypertension- Primary Unspecified essential hypertension Hyperlipidemia, unspecified hyperlipidemia type Acquired hypothyroidism Unspecified hypothyroidism Osteoarthritis of multiple joints, unspecified osteoarthritis type 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 -[facility] DO Work Phone: History of [...] the merits of diet and weight loss. [facility] DO Work Phone: Hospital course Narrative No data available for this section [facility] Hospital Discharge instructions No data available for this section [facility] InstructionsNot on filedocumented in this encounter [employer] SystemInstructionsNot on filedocumented in this encounter [employer] SystemInstructionsNot on filedocumented in this encounter [facility] [email or web address] SystemProgress note No data available for this section [facility] Chief Complaint * I am doing ok [...] Lead Nick Richardson MD [address] [facility] [address] [place] [address] Referral ID Status Reason Start Date Expiration Date V isits Requested Visits Authorized [id number] Authorized 03/06/2024 03/06/2025 1 1 Specialty Diagnoses / Procedures Referred By Contac t Referred To Contact Cardiology Diagnoses Non-ischemic cardiomyopathy (Multi) Procedures Follow Up In Cardiology Nick Richardson MD [address] [facility] [address] [place] [address] Carmen Lopez MD [address] [facility] [address] [place] [address] Referral ID Status Reason Start Date Expiration Date V isits Requested Visits Authorized [id number] Authorized 03/06/2024 03/06/2025 1 1 Additional Source Comments INFORMATION SOURCE (unrecogn ized section and content) DATE CREATED AUTHOR 06/26/2022 [facility] DATE CREATED AUTHOR AUTHOR'S ORGANIZ ATION 12/07/2022 [facility] DATE CREATED AUTHOR AUTHOR'S ORGANIZ ATION 12/07/2022 [employer] DATE CREATED AUTHOR AUTHOR'S ORGANIZ ATION 03/09/2023 [facility] DATE CREATED AUTHOR AUTHOR'S ORGANIZ ATION 07/17/2024 [facility] DATE CREATED AUTHOR AUTHOR'S ORGANIZ ATION 08/07/2024 [facility] DATE CREATED AUTHOR AUTHOR'S ORGANIZ ATION 08/19/2024 [facility] DATE CREATED AUTHOR AUTHOR'S ORGANIZ ATION 08/20/2024 [facility] DATE CREATED AUTHOR AUTHOR'S ORGANIZ ATION 08/26/2024 Yuan Aguirre [facility] DATE CREATED AUTHOR AUTHOR'S ORGANIZ ATION 08/30/2024 [facility] DATE CREATED AUTHOR AUTHOR'S ORGANIZ ATION 09/08/2024 [facility] d[facility] Specialists [facility] Care Team (unrecognized sect ion and content) Senior Program Analyst Relationship Specialty Start Date End Date Connor Anaya DO [address], [place] [address] PCP - General 10/29/19 Senior Program Analyst Relationship Specialty Start Date End Date Connor Anaya DO [address], [place] [address] PCP - General Family Medicine 11/13/[address] [facility] Nurse - [employer] 07/01/24 Senior Program Analyst Relationship Specialty Start Date End Date Connor Anaya DO [address], [place] [address] PCP - General Family Medicine 11/13/22 Desiree Jansen [facility] Nurse - [employer] 07/01/24 Senior Program Analyst Relationship Specialty Start Date End Date Connor Anaya DO [address], [place] [address] PCP - General Family Medicine 11/13/22 Desiree Jansen CCM Nurse - [employer] 07/01/24 Senior Program Analyst Relationship Specialty Start Date End Date Connor Anaya DO PCP - General 10/29/19 Senior Program Analyst Relationship Specialty Start Date End Date Connor Anaya MD [address], [place] [address] PCP - General Family Medicine 03/26/24 Senior Program Analyst Relationship Specialty Start Date End Date Connor Anaya MD [address], [place] [address] PCP - General Family Medicine 03/26/24 Reason for Visit (unrecogniz ed section and content) Reason Comments Follow-up 2mo Specialty Diagnoses / Procedures Referred By Contac t Referred To Contact Cardiology Diagnoses Paroxysmal atrial fibrillation (Multi) Procedures Follow Up In Cardiology Nick Richardson MD [address] [place] [address] [address] [address] Referral ID Status Reason Start Date Expiration Date V isits Requested Visits Authorized [id number] Authorized 12/24/2023 12/23/2024 1 1 Reason Comments Follow-up Reason Comments Follow-up 5m Specialty Diagnoses / Procedures Referred By Contac t Referred To Contact Cardiology Diagnoses Non-ischemic cardiomyopathy (Multi) Procedures Follow Up In Cardiology Nick Richardson MD Ibrahim, Hassan M, MD [address] [place] [address] [address], [address] [address] Phone: tel: fax: Referral ID Status Reason Start Date Expiration Date V isits Requested Visits Authorized [id number] Authorized 03/06/2024 03/06/2025 1 1 Reason Comments [...] BE BASED ON THE PRIMARY CLINICAL RECORDS. [facility]. provides no warranty or guarantee of the accuracy or completeness of information in this document.
== END 2024-09-11 18:43 | disposition home or self-care (01) ==
LOC: ICU 11:03 → SURGOUT 11:05 → ICU 18:13
PROVIDERS: Internal Medicine Cardiovascular Disease; Admitting Provider Family Medicine; PCP Family Medicine; Visit Provider Urology
PROC: (CPT 52356; principal; 2024-09-11 08:00)
DX: N20.0 Calculus of kidney (principal); R31.0 Gross hematuria; R00.1 Bradycardia, unspecified; I47.20 Ventricular tachycardia, unspecified; I48.91 Unspecified atrial fibrillation; M10.9 Gout, unspecified; I25.10 Atherosclerotic heart disease of native coronary artery without angina pectoris; M19.90 Unspecified osteoarthritis, unspecified site; I12.9 Hypertensive chronic kidney disease with stage 1 through stage 4 chronic kidney disease, or unspecified chronic kidney disease; E11.22 Type 2 diabetes mellitus with diabetic chronic kidney disease; N18.9 Chronic kidney disease, unspecified; E78.00 Pure hypercholesterolemia, unspecified; E03.9 Hypothyroidism, unspecified; N32.89 Other specified disorders of bladder; Z79.899 Other long term (current) drug therapy; Z98.84 Bariatric surgery status; Z90.710 Acquired absence of both cervix and uterus; Z79.01 Long term (current) use of anticoagulants
CPT/HCPCS: 52356; 36415; 76000; 80048; 83605; 83735; 83880; 84436; 84443; 84481; 84484; 85025; 93005; 93270; 93306; 94667; 94761; G0378; J0461; J0690; J1100; J2405; J2704; J3010

== ENCOUNTER 2024-09-22 13:41 | Outpatient (OUT) | payer MEDICARE, OTHER, SELFPAY ==
--- NOTE | 2024-09-22 13:47 | XR_ITS ---
[address] [address] Patient Name: MIKY NOLEN MRN: [id number] date: 1950 Sex: F Assigned Patient Location: [facility] Current Patient Location: [facility] Accession/Order Number: [id number] Exam Date: 09/22/2024 13:50 Report Date: 09/24/2024 15:15 At the request of: YEHUDA HASSAN Procedure: XR abdomen 1V EXAMINATION: XR abdomen 1V HISTORY: kidney stone N20.0 COMPARISON: XR abdomen 07/04/2024 FINDINGS: KIDNEY/URETER - RIGHT: Collection of very faint densities overlying the lower pole of right kidney, likely residual fragmented calcifications. Previously seen larger stones no longer present. Right ureteral stent in place. KIDNEY/URETER - LEFT: No visible renal or ureteral calcifications. PELVIS: No appreciable ureteral stones. Tiny calcification projects adjacent to the distal right ureter was present on prior studies and represents a phlebolith. BOWEL: No abnormal dilation or deviation. BONES: No acute abnormality. OTHER: Negative. No abnormal gaseous collections. XR/XR abdomen 1V IMPRESSION: 1. Right ureteral stent. 2. Suspect trace amount of residual fragmented calcifications within kidney. Electronically authenticated by: KYLE CHENEY Date: 09/24/2024 15:15
== END 2024-09-22 13:42 | disposition home or self-care (01) ==
LOC: RAD 13:43
PROVIDERS: PCP Family Medicine; Visit Provider Urology
DX: N20.0 Calculus of kidney (principal)
CPT/HCPCS: 74018

== ENCOUNTER 2024-09-28 21:53 | Observation (INO) | payer MEDICARE, OTHER, SELFPAY ==
[2024-09-28 21:57] VITALS: BP 157/76; PULSE 67; TEMP 36.5; O2SAT 100; BMI 34.8
--- OUTSIDE RECORDS SUMMARY | 2024-09-28 22:00 | XMS_ITS | CCD ---
Author Organization [facility] Care Team Providers Care Level Vial Sealer Name Role Phone Jaclyn Connor Marinelli Unavailable Unavailable Unavailable CONNOR ANAYA Primary Care Physician Nick Richardson II Attending Unav ailelisabeth Richardson II, Nick Blackman Referring Unav ailable Jaclyn, Connor Sow Primary Care Unavailab le Jaclyn, Connor Sow Primary Care Unavailab le Debra [...] FURLONG, DR CONNOR Marinelli Primary Care Unavailable PARON, DR WILLARD Pittman Consulting Unavailable WEST, DR WILLARD Pittman Admitting Unavailable FURLONG, DR CONNOR Marinelli Primary Care Unavailable PARON, DR WILLARD Pittman Attending Unavailable MISC, DOCTOR Admitting Unavailable MISC, DOCTOR Attending Unavailable MISC, DOCTOR Consulting Unavailable FURNG, DR CONNOR Marinelli Primary Care Unavailable Revere Connor ESCALANTE Primary Care Provider Orzech, Radha X Admitting Unavailable Orzech, Radha X Attending Unavailable Orzech, Radha X Attending Unavailable Orzech, Radha X Attending Unavailable DULCE ALCAZAR Attending Unavailab le Yehuda HASSAN Attending Unavailable Yehuda HASSAN Attending Unavailable Yehuda HASSAN Attending Unavailable Orzech, Radha X Attending Unavailable Orzech, Radha X Attending [facility]available [facility] G Primary [facility] Provider JACLYN, CONNOR Marinelli Attending Unavailable FURLONG, CONNOR Marinelli Referring Unavailable FURLONG, CONNOR Marinelli Primary Care Unavailable FURNG, CONNOR Marinelli Attending Unavailable FURNG, CONNOR Marinelli Referring Unavailable FURNG, CONNOR Marinelli Primary Care [facility] Referring Unavailable FURLONG, CONNOR Marinelli Primary Care Unavailable FURNG, CONNOR Marinelli Referring Unavailable FURNG, CONNOR Marinelli Primary Care Unavailable [facility] Garciaard [facility]AYDEN Primary Care Provider JR. MCCLAIN GEORGE C Attending Unavailmarlee MCCLAIN JR., GEORGE C Referring Unavaila NANY Akbar Attending Unavailable NANY SWANSON Referring Unavailable Orzech, Radha X Attending Unavailable Orzech, Radha X Admitting Unavailable Orzech, Radha X Attending Unavailable Yehuda HASSAN Attending Unavailable JOHNATHANUINNICK Ryan Attending Unavailable FURLONG, CONNOR SOW Primary Care Unavailab le NICK RICHARDSON Attending Unavailable FURLONG, CONNOR SOW Primary Care Unavailab NICK Rousseau Referring Unavailable CARMEN LOPEZ Attending Unavailable NICK RICHARDSON Referring Unavailable FURLONG, CONNOR SOW Primary Care Unavailab le Allergies Allergy Classification Reported Allergen(s) Allergy Type Date of Onset Reaction(s) Facility (20 sources) Ciprofloxacin; Translations: [ciprofloxacin] Drug Allergy 12-12-19 Eruption of skin (disorder), Unknown, Rash [facility] [place] (20 sources) Sulfonamides (Antibiotic); Translations: [Sulfa Drugs] Allergy to drug (finding) Eruption of skin (disorder) [facility] [place] (20 sources) corn extract; Translations: [[place]] Drug Allergy 02-18-20 24 Unknown (qualifier value), Other (See Comments) [facility] (13 sources) Dog; Translations: [Dogs] Allergy to substance Unknown (qualifier value) [facility] (20 sources) Mold Extract; Translations: [mold] Drug Allergy 06-21-20 Unknown (qualifier value), Other (See Comments) [facility] (13 sources) Milk Products; Translations: [Milk Products] Food allergy Unknown (qualifier value) [facility] (13 sources) house dust mite allergen extract; Translations: [house dust mite allergen extra] Allergy to substance Unknown (qualifier value) [facility] (2 sources) Ciprofloxacin Drug Allergy 01-31-20 14 [facility] (1 source) house dust allergenic extract Drug Allergy [facility] (2 sources) Lactose Drug Allergy [facility] (1 source) Sulfonamides (Antibiotic) Drug allergy (disorder) [facility] (14 sources) Sulfonamides (Antibiotic); Translations: [SULFA (SULFONAMIDE ANTIBIOTICS)] Drug Intolerance 06-21-20 Unknown, [facility] Work Phone: (8 sources) Sulfamethoxazole / Trimethoprim; Translations: [SULFAMETHOXAZOLE-T RIMETHOPRIM] Drug Allergy 11-13-19 [facility] Medications Current Medications Medication Drug Class(es) [...] 16-Aug-2021 DO Active CALCIUM CARBONATE-VITAMIN D3 ORAL (8 sources) take 1 tablet by mouth in [...] Status: Ordered cholecalciferol 0.025 mg oral tablet (18 sources) Vitamin D take 1 tablet by [...] Active fexofenadine hydrochloride 180 mg oral tablet (11 sources) Histamine-1 Receptor Antagonist Sta rt: 4 take 1 tablet by mouth in the morning fexofenadine (HANNAH) 180 mg tablet Take 1 tablet (180 mg total) by mouth in the morning. 02/18/2024 Active take 1 tablet by mouth once don y fexofenadine (Hannah) 60 mg tablet Take 1 tablet (60 mg) by mouth once daily. Active krill oil (7 sources) Start: 02-18-2024 take 1 capsule by mouth in the morning prhlm-kj-8-muv-etx-mkkyzey-ast (KRILL OIL) 1,[phone] mg capsule Take 1 capsule by mouth [...] adjustment) Start: 07-29-2019 take 1 capsule by [facility] once daily levothyroxine 137 mcg (0.137 [...] ADULT 50+ PO) as directed Orally Active ahxjlwdd-dsc-bwuz-F A-vit K-lut (Centrum Silver Women) 8 mg iron-400 mcg-50 mcg tablet (2 sources) take 1 tablet by mouth once daily uplgbpto-lcs-jvel-FA -vit K-lut (Centrum Silver Women) 8 mg iron-400 mcg-50 mcg tablet Take 1 tablet by mouth once daily. Active acncdjxh-cni-lheg-F A-vit K-lut (CENTRUM SILVER WOMEN) 8 mg iron-400 mcg-50 mcg tablet (6 sources) take 1 tablet by mouth once in the morning jczucnkt-jsm-oamt-FA -vit K-lut (CENTRUM SILVER WOMEN) 8 mg iron-400 mcg-50 mcg tablet Take 1 tablet by mouth in the morning. Active [place]-3 Fatty Acids (OMEGA-3 FISH OIL PO) (3 sources) [place]-3 Fatty Ac ids (OMEGA-3 FISH OIL PO) Take by mouth Active omega-3 fatty acids-fish oil (One-Per-Day [place]-3) 684-1,200 mg capsule (2 sources) omega-3 fatty acids-fish oil (One-Per-Day Bronx-3) 684-1,200 mg capsule Take 1 capsule (1,200 mg) by mouth once daily. Active OTC joint supplement (11 sources) Start: 07-01-2020 take 1 tablet by mouth once daily OTC joint supplement OTC joint supplement, one tab, Oral, Daily Start Date: 07/01/20 Status: Ordered potassium bicarbonate 25 meq effervescent oral tablet (11 sources) Start: 10-26-2023 take 1 tablet by [...] procedure, # 2 cap(s), Refills(s) 0, Pharmacy: [facility], 165, cm, 06/30/22 11:48:00 EDT, Height/Length [...] BID, # 60 tab(s), Refills(s) 11, Pharmacy: [facility], 165, cm, 10/26/23 8:42:00 EST, Height/Length Dosing, 97.5, kg, 10/26/23 8:42:00 EST, Weight Dosing Start Date: 10/26/23 Status: Ordered 1 ml methylPREDNISolone acetate 40 mg/ml injection (4 sources) Corticosteroid Start: 2023 End: 2023 methylPREDNISolone acetate (DEPO-Medrol) injection 40 mg Start: 09-02-2024 End: 09-02-2024 40 mg, Intra-articular, Once PRN Procedure, Starting on Sun09/02/24 at 1414, For 1 dose Bronx 3 CAPS (7 sources) Bronx 3 CAPS BASSAM E DIRECTED. Quantity: 0 Refills: 0 Ordered: 16-Aug-2021 DO Active Problems Active Problems Problem Classification Problem Date Documented Da te Episodic/Chronic Acute and unspecified renal failure (6 sources) Renal failure syndrome; Translations: [Unspecified kidney [...] 08-25-2019 Chronic Genitourinary symptoms and ill-defined conditions (17 sources) Genuine stress incontinence; Translations: [Stress incontinence [...] D DEFICIENCY UNSPECIFIED] Onset: 02-24-2023 Chronic Osteoarthritis (10 sources) Osteoarthritis of multiple joints ; Translations: [Polyosteoarthritis, unspecified] Onset: 07-23-2023 08-18-2024 Chronic Other aftercare (7 sources) Drug therapy finding; Translations: [Long-term (current) use of anticoagulants] Episodic Other aftercare (2 sources) Taking high risk medication; Translations: [Other alf (current) drug therapy] Onset: 08-28-2024 08-28-2024 Episodic Other aftercare (2 sources) Other termite helper (current) drug therapy; Translations: [Other alf (current) drug therapy] Onset: 08-28-2024 Episodic Other gastrointestinal disorders (4 sources) Bariatric surgery status; Translations: [BARIATRIC SURGERY STATUS] Onset: 02-20-2023 Episodic Other hereditary and degenerative nervous system conditions (6 sources) Minimal cognitive impairment; Translations: [Mild cognitive [...] Chronic Other nutritional; endocrine; and metabolic disorders (8 sources) Morbid obesity; Translations: [Morbid obesity] Onset: 03-01-2016 07-23-2023 Chronic Other nutritional; endocrine; and metabolic disorders (1 source) Obesity; Translations: [Obesity, unspecified] Chronic Other nutritional; endocrine; and metabolic disorders (4 sources) Body mass index 30+ - obesity; Translations: [Body mass index (BMI) 36.0-36.9, adult] Onset: 03-06-2024 03-06-2024 Chronic Other nutritional; endocrine; and metabolic disorders (7 sources) 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 [...] Onset: 07-23-2023 03-06-2024 Chronic Residual codes; unclassified (6 sources) Sleep apnea; Translations: [Sleep apnea, unspecified] [...] Documented Da te Episodic/Chronic Biliary tract disease (17 sources) Biliary calculus; Translations: [Calculus of gallbladder [...] microscopic hematuria] Onset: 2 Episodic Mood disorders (6 sources) Mood disorders Onset: 4 08-18-2024 Other aftercare (4 sources) Encounter for surgical aftercare following surgery on the circulatory system; Translations: [ENC SURG AFTRCARE FLW SURG CIRC SYS] Onset: 2 Episodic Other and unspecified benign neoplasm (6 sources) Polyp of transverse colon; Translations: [Polyp of colon] Onset: 3 12-13-2022 Episodic Other circulatory disease (15 sources) Carotid bruit; Translations: [Other symptoms involving cardiovascular system] Onset: 3 08-17-2023 Episodic Other circulatory disease (7 sources) H/O: hypertension; Translations: [Personal history of other diseases of circulatory system] Resolved: 1 Episodic Other diseases of kidney and ureters (6 sources) Hydronephrosis with renal and ureteral calculous [...] smoked tobacco; Translations: [Never a smoker] Unclassified (8 sources) Onset: 4 Resolved: 4 03-06-2024 Varicose [...] discussed. Consent was given by the patient. [facility] XR Knee - right 1 or 2 [...] on bone articulation and patella femoral joint [facility] Radiology Study observation (narrative) [facility] COMPREHENSIVE METABOLIC PANE Good 08-18-2024 Albumin [Mass/Vol] 3.9 g/dL Normal 3.2-5.3 [facility] Comment on above: Performed By: #### T HYR, 38302-5, CMP #### [facility] ([id number]) [address], [address] [place] [address] ALP [Catalytic activity/Vol] 114 U/L Normal 39-130 [facility] Comment on above: Performed By: #### Min KABA, 68784-5, CMP #### [facility] ([id number]) [address], [address] [place] [address] ALT [Catalytic activity/Vol] 15 U/L Normal 0-31 [facility] Comment on above: Performed By: #### Min KABA, 15861-9, CMP #### [facility] ([id number]) [address], [address] [place] [address] Anion gap [Moles/Vol] 8 mmol/L Normal 5-15 [facility] Comment on above: Performed By: #### Min KABA, 54577-3, CMP #### [facility] ([id number]) [address], [address] [place] [address] AST [Catalytic activity/Vol] 20 U/L Normal 0-41 [facility] Comment on above: Performed By: #### Min KABA, 37683-8, CMP #### [facility] ([id number]) [address], [address] [place] [address] Bilirubin [Mass/Vol] 0.5 mg/dL Normal 0.3-1.2 [facility] Comment on above: Performed By: #### Min KABA, 54738-7, CMP #### [facility] ([id number]) [address], [address] [place] [address] Calcium [Mass/Vol] 10.4 mg/dL Normal 8.5-10.5 [facility] Comment on above: Performed By: #### Min KABA, 85129-5, CMP #### [facility] ([id number]) [address], [address] [place] [address] Chloride [Moles/Vol] 103 mmol/L Normal 98-109 [facility] Comment on above: Performed By: #### Min KABA 81113-3, CMP #### [facility] ([id number]) [address], [address] [place] [address] CO2 [Moles/Vol] 27 mmol/L Normal 22-32 [facility] Comment on above: Performed By: #### Min KABA, 53441-4, CMP #### [facility] ([id number]) [address], [address] [place] [address] Creatinine [Mass/Vol] 0.80 mg/dL Normal 0.40-1.00 [facility] Comment on above: Result Comment: METH OD TRACEABLE TO IDMS STANDARD Performed By: #### Min KABA 60429-9, CMP #### [facility] ([id number]) [address], [address] [place] [address] GFR/1.73 sq M.predicted among non-blacks MDRD (S/P/Bld) [Vol rate/Area] 77 mL/min/{1.73_m2} Normal >59 [facility] Comment on above: Result Comment: Reported eGFR is based on the CKD-EPI 2020 equation that does not use a race coefficient. Performed By: #### Min KABA 38380-1, CMP #### [facility] ([id number]) [address], [address] [place] [address] Glucose [Mass/Vol] 99 mg/dL Normal 65-99 [facility] Comment on above: Performed By: #### Min KABA 47177-3, CMP #### [facility] ([id number]) [address], [address] [place] [address] Potassium [Moles/Vol] 4.0 mmol/L Normal 3.5-5.0 [facility] Comment on above: Performed By: #### Min KABA, 45132-4, CMP #### [facility] ([id number]) [address], [address] [place] [address] Protein [Mass/Vol] 7.0 g/dL Normal 6.0-8.0 [facility] Comment on above: Performed By: #### Min SENDY, 31913-2, CMP #### [facility] ([id number]) [address], [address] [place] [address] Sodium [Moles/Vol] 138 mmol/L Normal 134-146 [facility] Comment on above: Performed By: #### Min KABA, 96037-5, CMP #### [facility] ([id number]) [address], [address] [place] [address] Urea nitrogen [Mass/Vol] 18 mg/dL Normal 5-27 [facility] Comment on above: Performed By: #### Min SENDY, 24452-4, CMP #### [facility] ([id number]) [address], [address] [place] [address] Comprehensive metabolic pane good 08-18-2024 Albumin [Mass/Vol] 3.9 g/dL 3.2 - 5.3 g/dL [facility] ALP [Catalytic activity/Vol] 114 U/L 39 - 130 U/L [facility] ALT No additional P-5'-P [Catalytic activity/Vol] 15 U/L 0 - 31 U/L [facility] Anion gap [Moles/Vol] 8 mmol/L 5 - 15 mmol/L [facility] AST [Catalytic activity/Vol] 20 U/L 0 - 41 U/L [facility] Bilirubin [Mass/Vol] 0.5 mg/dL 0.3 - 1.2 mg/dL [facility] Calcium [Mass/Vol] 10.4 mg/dL 8.5 - 10.5 mg/dL [facility] Chloride [Moles/Vol] 103 mmol/L 98 - 109 mmol/L [facility] CO2 [Moles/Vol] 27 mmol/L 22 - 32 mmol/L [facility] Creatinine [Mass/Vol] 0.8 mg/dL 0.40 - 1.00 mg/dL [facility] Comment on above: METHOD TRACEABLE TO IDIL STANDARD eGFR (CKD-EPI)non-race dependent 77 - PINF [facility] Comment on above: Reported eGFR is based on the CKD-EPI 2020 equation that does not use a race coefficient. Glucose [Mass/Vol] 99 mg/dL 65 - 99 mg/dL [facility] Potassium [Moles/Vol] 4 mmol/L 3.5 - 5.0 mmol/L [facility] Protein [Mass/Vol] 7 g/dL 6.0 - 8.0 g/dL [facility] Sodium [Moles/Vol] 138 mmol/L 134 - 146 mmol/L [facility] Urea nitrogen [Mass/Vol] 18 mg/dL 5 - 27 mg/dL [facility] Lipid 1996 panelon 4 Cholesterol [Mass/Vol] 187 mg/dL 150 - 200 mg/dL [facility] Cholesterol in HDL [Mass/Vol] 66 mg/dL 39 - PINF mg/dL [facility] Comment on above: HDL <40 mg/dL - High Risk HDL > or = 40mg/dL- Desirable HDL >60 mg/dL - Negative Risk Cholesterol in LDL [Mass/Vol] 107 mg/dL NINF - 130 mg/dL [facility] Comment on above: LDL <100 mg/dL - Desirable LDL >160 mg/dL - High Risk Cholesterol in VLDL [Mass/Vol] 14 mg/dL 0 - 30 mg/dL [facility] Cholesterol.total /Cholesterol in HDL [Mass ratio] 2.8 {ratio} 1.0 - 5.0 [facility] Triglyceride [Mass/Vol] 68 mg/dL 27 - 150 mg/dL [facility] Cholesterol [Mass/Vol] 187 mg/dL Normal 150-200 [facility] Comment on above: Performed By: #### T [facility], 41992-5, CMP #### [facility] ([id number]) [address], [address] [place] [address] Cholesterol in HDL [Mass/Vol] 66 mg/dL Normal >39 [facility] Comment on above: Result Comment: HDL <40 mg/dL - High Risk HDL > or = 40mg/dL- Desirable HDL >60 mg/dL - Negative Risk Performed By: #### Min KABA 40963-2, CMP #### [facility] ([id number]) [address], [address] [place] [address] Cholesterol in LDL [Mass/Vol] 107 mg/dL Normal <130 [facility] Comment on above: Result Comment: LDL <100 mg/dL - Desirable LDL >160 mg/dL - High Risk Performed By: #### Min KABA 34821-3, CMP #### [facility] ([id number]) [address], [address] [place] [address] Cholesterol in VLDL [Mass/Vol] 14 mg/dL Normal 0-30 [facility] Comment on above: Performed By: ###Chavo KABA 53847-9, CMP #### [facility] ([id number]) [address], [address] [place] [address] CHOLESTEROL:HDL 2.8 Normal 1.0-5.0 [facility] Comment on above: Performed By: #### Min KABA 95030-7, CMP #### [facility] ([id number]) [address], [address] [place] [address] Triglyceride [Mass/Vol] 68 mg/dL Normal 27-150 [facility] Comment on above: Performed By: #### T HYR, 88264-6, CMP #### [facility] ([id number]) [address], [address] [place] [address] No Panel Informationon 08-18 [facility] THYROID PROFILEon 08-18-2024 Free T4 [Mass/Vol] 1.33 ng/dL Normal 0.61-1.60 [facility] Comment on above: Performed By: #### T HYR, 01290-3, CMP #### [facility] ([id number]) [address] [place] [address] TSH 0.35 uIU/mL Low 0.49-4.67 [facility] Comment on above: Performed By: #### T HYR, 93157-4, CMP #### [facility] ([id number]) [address] [place] [address] Thyroid profile includes TSH FT4on 08-18-2024 Free T4 [Mass/Vol] 1.33 ng/dL 0.61 - 1.60 ng/dL [facility] Interpretation and review of laboratory results Abnormal [facility] TSH Qn 0.35 m[IU]/L Low [facility] UroVysion Fish and Urine Cyt o ([facility])on 08-05-2024 [facility] Diagnosis Info Invalid Interpretation Code [facility] Comment on above: Result Comment: A:Ur ine,Urine:Voided [...] with cytology and cystoscopy results. * CPT: 82888, 70348. MicroScopic Description - MicroScopic Description - Electronically signed by : on: 08/05/2024 16:40:06 Performed By: #### 1 [id number] #### [facility] [address] [place] [address] UroVysion Fish and Urine Cyt o ([facility])on 07-29-2024 [facility] Method of Extraction Voided Normal [facility] Comment on above: Performed By: #### 1 [id number] #### [facility] [address] [place] [address] [facility] Number of Jars 1 Invalid Interpretation Code [facility] Comment on above: Performed By: #### 1 [id number] #### [facility] [address] [place] [address] [facility] Specimen Urine Normal [facility] Comment on above: Performed By: #### 1 [id number] #### [facility] [address] [place] [address] [facility] Type of Service Technical Only Normal [facility] Comment on above: Performed By: #### 1 [id number] #### [facility] [address] [place] [address] Urine Cytology ([facility])on 07-18-2024 Microscopic exam Cytology (U) [Interp] Diagnosis Info Invalid Interpretation Code [facility] Comment on above: Result Comment: A:Ur ine,Clean [...] on: 07/18/2024 12:47:49 Performed By: #### 1 [id number] #### [facility] [address] [place] [address] Ambulatory Visit Summaryon 07-15-2024 Ambulatory Visit Summary [...] When: Comments: pending review of imaging Where: [address] [place] [address]- Medications What How Much When Instructions Unchanged [...] prescribing physician if questions or concerns Allergies [place] (Unknown) Dogs (Unknown) Milk Products (Unknown) Mold [...] the b (more content not included)... Normal [facility] Urine Cytology ([facility])on 0 07-15-2024 Method of Extraction Voided Normal [facility] Comment on above: Performed By: #### 1 [id number] #### [facility] [address] [place] [address] Number of Jars 1 Invalid Interpretation Code [facility] Comment on above: Performed By: #### 1 [id number] #### [facility] [address] [place] [address] Specimen Clean Catch Normal [facility] Comment on above: Performed By: #### 1 [id number] #### [facility] [address] [place] [address] Type of Service Technical Only Normal [facility] Comment on above: Performed By: #### 1 [id number] #### [facility] [address] [place] [address] Urology Office/Clinic Noteon 07-15-2024 Urology Office/Clinic Note [...] with voice recognition artificial intelligence software, specifically Nuzzel, PowerMessage and or [employer]. Substitutions may have occurred due to the [...] Urnls Dip Stick Auto w/o Microscopy POC [id number] Follow-up With When Contact Information [place] HAYDEN, Yehuda Haddad, URL [address] [place] [address]- Additional Instructions: pending review of imaging Patient Education Kidney Stones, Mdxq-tn-Fwoj Hematuria, Adult Problem List/Past Medical History Ongoing [...] bile duct (more content not included)... Normal [facility] Comment on above: Result Comment: Elec tronically Signed By: RAAD Back APRN, Radha Lopes\.br\Date and Time Signed: 07/15/24 15:39 EDT ECG 12 Leadon 03-06-2024 Sinus bradycardia with occasional PVCs Low voltage QRS Nonspecific ST change QTc 391 ms [facility] Work Phone: BASIC METABOLIC PANLon 02-17 Anion gap [Moles/Vol] 6 mmol/L Normal 5-15 [facility] Comment on above: Performed By: #### B YONATAN, THYR #### [facility] ([id number]) [address], [address] [place] [address] Calcium [Mass/Vol] 9.8 mg/dL Normal 8.5-10.5 [facility] Comment on above: Performed By: #### B YONATAN, THYR #### [facility] ([id number]) [address], [address] [place] [address] Chloride [Moles/Vol] 106 mmol/L Normal 98-109 [facility] Comment on above: Performed By: #### B YONATAN, THYR #### [facility] ([id number]) [address] [place] [address] CO2 [Moles/Vol] 31 mmol/L Normal 22-32 [facility] Comment on above: Performed By: #### Win TAM, THYR #### [facility] ([id number]) [address], [address] [place] [address] Creatinine [Mass/Vol] 0.90 mg/dL Normal 0.40-1.00 [facility] Comment on above: Result Comment: METH OD TRACEABLE TO IDMS STANDARD Performed By: #### B YONATAN, THYR #### [facility] ([id number]) [address], [address] [place] [address] GFR/1.73 sq M.predicted among non-blacks MDRD (S/P/Bld) [Vol rate/Area] 68 mL/min/{1.73_m2} Normal >59 [facility] Comment on above: Result Comment: Reported eGFR is based on the CKD-EPI 2020 equation that does not use a race coefficient. Performed By: #### B YONATAN, THYR #### [facility] ([id number]) [address], [address] [place] [address] Glucose [Mass/Vol] 105 mg/dL High 65-99 [facility] Comment on above: Performed By: #### B YONATAN, THYR #### [facility] ([id number]) [address] [place] [address] Potassium [Moles/Vol] 4.2 mmol/L Normal 3.5-5.0 [facility] Comment on above: Performed By: #### B YONATAN, THYR #### [facility] ([id number]) [address] [place] [address] Sodium [Moles/Vol] 143 mmol/L Normal 134-146 [facility] Comment on above: Performed By: #### B YONATAN, THYR #### [facility] ([id number]) [address] [place] [address] Urea nitrogen [Mass/Vol] 19 mg/dL Normal 5-27 [facility] Comment on above: Performed By: #### B YONATAN, THYR #### [facility] ([id number]) [address] [place] [address] THYROID PROFILEon 02-18-2024 Free T4 [Mass/Vol] 1.92 ng/dL High 0.61-1.60 [facility] Comment on above: Performed By: #### B YONATAN, THYR #### [facility] ([id number]) [address] [place] [address] TSH 0.58 uIU/mL Normal 0.49-4.67 [facility] Comment on above: Performed By: #### B YONATAN, THYR #### [facility] ([id number]) [address] [place] [address] Ambulatory Visit Summaryon 1 Ambulatory Visit Summary MIKY FUENTES :1950 Visit Date:10/26/2023 Ambulatory Visit Instructions Your Diagnosis Ureteral stone with hydronephrosis Kidney stone Tests Performed Urnls Dip Stick Auto w/o Microscopy POC 76489 Your Care Team Attending Physician - Yehuda [...] EST With: Where: [facility] Normal [address] [place] [address] [place] [address]- \.br\ You Need to Schedule the Following Appointments\.br\ Follow Up with MO HAYDEN, Yehuda Haddad, GENEVIEVEL When: \.br\ Where:\.br\ [address] [facility]\.br\ [place] [address]-\.br\ Medications\.br\ What How Much When Instructions\.br\ New potassium bicarbonate (K-Effervescent 25 mEq oral tablet, effervescent) 1 Tablets By Mouth 2 times a day Refills: 11 Pickup at [facility]\.br\ Unchanged allopurinol (allopurinol 300 mg Tab) [...] if questions or concerns \.br\ Pharmacy Information\.br\ [facility]: [address] [place], [place] [id number] [phone]\.br\ \.br\ What How Much When Why Comments\.br\ Stop Taking tamsulosin (Flomax 0.4 mg Cap) 1 Capsules By Mouth Every day Right flank pain Kidney stones Gross hematuria\.br\ Test Results\.br\ Urnls Dip Stick Auto w/o Microscopy POC 16135 (10/26/2023)\.br\ Bilirubin Urine Dipstick - Negative\.br\ Blood Urine Dipstick - 3+ Large\.br\ Glucose Urine Dipstick - Negative\.br\ Ketones Urine Dipstick - Negative\.br\ Leukocytes Urine Dipstick - Negative\.br\ Nitrite Urine Dipstick - Negative\.br\ Protein Urine Dipstick - 2+ (100 mg/dl)\.br\ Specific [place] Urine Dipstick - 1.025\.br\ Urine Appearance Urine Dipstick - Slightly cloudy\.br\ Urine Color Urine Dipstick - Yellow\.br\ Urobilinogen Urine Dipstick - Normal 0.2-1 EU/dl\.br\ pH Urine Dipstick - 5\.br\ Allergies\.br\ [place] (Unknown)\.br\ Dogs (Unknown)\.br\ Milk Products (Unknown)\.br\ Mold [...] Spinach (cooked), rhubarb, beets, sweet potatoes, and Macanese chard. ? Peanuts. ? Potato chips, greek fries, and baked potatoes with skin on. ? Nuts and nut products. ? Chocolate. ? If you regularly take a diuretic medicine, make sure to eat at least 1 or 2 servings of fruits or vegetables that are high in potassium each day. These include: ? Avocado. ? Banana. ? [place], prune, carrot, or tomato juice. ? Baked [...] fish oil, or vitamin B6. ? Take nnbe-bqw-yoeeaas and prescription medicines only as told by your health care provider. These include supplements. What foods sh (more content not included)... Normal [facility] RAD - MISCon 10-26-2023 [facility] MIS [id number]#1 .00TIFF [facility] [id number]#1 .00TIFF [facility] Urology Office/Clinic Noteon 10-26-2023 Urology Office/Clinic Note Chief Complaint CT Review HPI Staff 2 wk f/u with KUB. Saw DAXA at prior OV. Previous Dx: R flank pain, kidney stones, gross hematuria. S/p ESWL 11/18/20. CT AP wo con done 10/11/23 at [facility].Was given Tamsulosin, however stopped taking after a [...] Information MO HAYDEN, Yehuda Haddad, URL [address] [id number]- Additional Instructions: 6 months Patient Education Dietary [...] joint sup (more content not included)... Normal [facility] Comment on above: Result Comment: Elec tronically Signed By: Yehuda HASSAN MD\.br\Date and Time Signed: 10/26/23 09:11 EST\.br\Electronically Co-Signed By: Chantal Bishop\Date and Time Co-Signed: 10/26/23 09:09 EST RAD - CT Reporton 10-15-2023 RAD - CT Report [id number]# 1.00TIFF Normal [facility] RAD - CT Report [id number]#1 .00TIFF Normal [facility] RAD - MISCon 10-15-2023 RAD - MISC [id number]#1 .00TIFF Normal [facility] RAD - MISC [id number]#1 .00TIFF Normal [facility] Ambulatory Visit Summaryon 1 12-10-2022 Ambulatory Visit Summary MIKY FUENTES :1950 Visit Date:10/09/2023 Ambulatory Visit Instructions Your Diagnosis Gross hematuria Right flank pain Tests Performed Urnls Dip Stick Auto w/o Microscopy POC 36493 Your Care Team Attending Physician - DORA [...] Urnls Dip Stick Auto w/o Microscopy POC 73379 (10/09/2023) Bilirubin Urine Dipstick - Negative Blood Urine Dipstick - 3+ Large Glucose Urine Dipstick - Negative Ketones Urine Dipstick - Negative Leukocytes Urine Dipstick - Negative Nitrite Urine Dipstick - Negative Protein Urine Dipstick - 3+ (300 mg/dl) Specific [place] Urine Dipstick - >=1.030 Urine Appearance Urine Dipstick - Clear Urine Color Urine Dipstick - Yellow Urobilinogen Urine Dipstick - Normal 0.2-1 EU/dl pH Urine Dipstick - 5.5 Allergies [place] (Unknown) Dogs (Unknown) Milk Products (Unknown) Mold [...] these instructions at home: Medicines ? Take bdoa-qwj-sjusddx and prescription medicines only as told by [...] the blood stops without treatment. ? Take qtqa-iqb-zlmzqan and prescription medicines only as told by your health care provider. ? Drink enough fluid to keep your urine pale yellow. This information is not intended to replace advice given to you by your health care provider. Make sure you discuss any questions you have with your health care provider. Document Revised: 06/15/2021 Document Reviewed: 06/15/2021 ITS Compliance Patient Education ? 2022 [employer]. Normal [facility] Urology Office/Clinic Noteon 10-09-2023 Urology Office/Clinic Note [...] Daily, # 30 cap(s), Refills(s) 0, Pharmacy: [facility], 165, cm, 10/09/23 15:24:00 EST, Height/Length Dosing, 113, kg, 10/09/23 15:24:00 EST, Weight Dosing CT Abdomen w/o Contrast E&M of Est. Patient Moderate 30-39 Min 87268 2. Kidney stones (N20.0: Calculus of kidney) see #1 KUB from this spring showed several medium (6-7mm) R renal stones has had multiple lithotripsy in past Ordered: tamsulosin, 0.4 mg = 1 cap(s), Oral, Daily, # 30 cap(s), Refills(s) 0, Pharmacy: [facility], 165, cm, 10/09/23 15:24:00 EST, Height/Length Dosing, 113, kg, 10/09/23 15:24:00 EST, Weight Dosing CT Abdomen w/o Contrast E&M of Est. Patient Moderate 30-39 Min 98365 3. Gross hematuria (R31.0: Gross hematuria) see #1 Ordered: tamsulosin, 0.4 mg = 1 cap(s), Oral, Daily, # 30 cap(s), Refills(s) 0, Pharmacy: [facility], 165, cm, 10/09/23 15:24:00 EST, Height/Length Dosing, 113, kg, 10/09/23 15:24:00 EST, Weight Dosing CT Abdomen w/o Contrast E&M of Est. Patient Moderate 30-39 Min 82162 Urnls Dip Stick Auto w/o Microscopy POC 72123 Follow-up With When Contact Information INGE CARDONA, DORA Washburn, URL [address] [facility] [place] [address] Business (1) Additional Instructions: pending [...] Oral, B (more content not included)... Normal [facility] Comment on above: Result Comment: Elec tronically Signed By: INGE CARDONA, DORA [place]\.br\Date and Time Signed: 10/09/23 15:49 EST CREATININEon 03-05-2023 Creatinine [Mass/Vol] 1.16 mg/dL Critically high 0.55-1.02 [facility] Comment on above: Performed By: #### C AIYANA #### [facility] [address] [address] [address] Alysha Machuca EGFR-AF FINNISH 56 mL/min/1.73m2 Critically low >=60 [facility] Comment on above: Performed By: #### C AIYANA #### [facility] [address] [address] [address] Alysha Machuca EGFR-NON AF FINNISH 46 mL/min/1.73m2 Critically low >=60 [facility] Comment on above: Performed By: #### C AIYANA #### [facility] [address] [place] [address] ABD/PELVIS WO CONon [...] KYLE CHENEY Date: 2023-03-05 15:08 Normal [facility] VITAMIN B1 (THIAMINE)on 01-28 Vit. B1, Whole Blood 132.2 nmol/L Normal 66.5-200.0 [facility] Comment on above: Performed By: #### V ITB1T ####[facility] [address] [id number] Alysha Machuca CBC AUTO DIFFon 02-20-2023 BASO # 0.1 103/ul Normal 0.0-0.1 [facility] Comment on above: Performed By: #### C BC #### [facility] [address] [place], [place] [address] Dr. Alysha Machuca Basophils/100 WBC (Bld) 0.9 % Normal 0.2-2.0 [facility] Comment on above: Performed By: #### C BC #### [facility] [address] [place], [place] [address] Dr. Alysha Machuca EO # 0.2 103/ul Normal 0.0-0.7 [facility] Comment on above: Performed By: #### C BC #### [facility] [address] [place] [address] Dr. Alysha Machuca Eosinophils/100 WBC (Bld) 3.0 % Normal 0.9-7.0 [facility] Comment on above: Performed By: #### C BC #### [facility] [address] [place] [address] Dr. Alysha Machuca Erythrocyte distribution width (RBC) [Ratio] 13.9 % Normal 11.0-15.0 [facility] Comment on above: Performed By: #### C BC #### [facility] [address] [place] [address] Dr. Alysha Machuca Hematocrit (Bld) [Volume fraction] 39.5 % Normal 36.0-48.0 [facility] Comment on above: Performed By: #### C BC #### [facility] [address] [place] [address] Dr. Alysha Machuca Hemoglobin (Bld) [Mass/Vol] 12.7 g/dL Normal 12.0-16.0 [facility] Comment on above: Performed By: #### C BC #### [facility] [address] [place] [address] Dr. Alysha Machuca IG # 0.01 10e3/ul Normal 0.00-0.03 [facility] Comment on above: Performed By: #### C BC #### [facility] [address] [place] [address] Dr. Alysha Machuca IG % 0.2 % Normal 0.0-0.5 [facility] Comment on above: Performed By: #### C BC #### [facility] [address] [place] [address] Dr. Alysha Machuca LYMPH # 1.7 103/ul Normal 1.2-3.8 [facility] Comment on above: Performed By: #### C BC #### [facility] [address] [place] [address] Dr. Alysha Machuca Lymphocytes/100 WBC (Bld) 30.7 % Normal 20.5-60.0 [facility] Comment on above: Performed By: #### C BC #### [facility] [address] [place] [address] Dr. Alysha Machuca MANUAL DIFF REQ NO Normal [facility] Comment on above: Performed By: #### C BC #### [facility] [address] [place] [address] Dr. Alysha Machuca MCH (RBC) [Entitic mass] 29.3 pg Normal 26.7-34.0 [facility] Comment on above: Performed By: #### C BC #### [facility] [address] [place] [address] Dr. Alysha Machuca MCHC (RBC) [Mass/Vol] 32.2 g/dL Normal 29.9-35.2 [facility] Comment on above: Performed By: #### C BC #### [facility] [address] [place] [address] Dr. Alysha Machuca MCV (RBC) [Entitic vol] 91.0 fL Normal 81.0-99.0 [facility] Comment on above: Performed By: #### C BC #### [facility] [address] [place] [address] Dr. Alysha Machuca MONO # 0.4 103/ul Normal 0.3-0.8 [facility] Comment on above: Performed By: #### C BC #### [facility] [address] [place] [address] Dr. Alysha Machuca Monocytes/100 WBC (Bld) 6.8 % Normal 1.7-12.0 [facility] Comment on above: Performed By: #### C BC #### [facility] [address] [place] [address] Dr. Alysha Machuca NEUT # 3.3 103/ul Normal 1.4-6.5 [facility] Comment on above: Performed By: #### C BC #### [facility] [address] [place] [address] Dr. Alysha Machuca Neutrophils/100 WBC (Bld) 58.4 % Normal 43.0-75.0 [facility] Comment on above: Performed By: #### C BC #### [facility] [address] [address] [address] Alysha Machuca Platelet mean volume (Bld) [Entitic vol] 9.3 fL Critically low 9.5-13.5 [facility] Comment on above: Performed By: #### C BC #### [facility] [address] [address] [address] Alysha Machuca PLT 186 103/ul Normal 150-450 [facility] Comment on above: Performed By: #### C BC #### [facility] [address] [address] [address] Alysha Machuca RBC 4.34 106/ul Normal 4.20-5.40 [facility] Comment on above: Performed By: #### C BC #### [facility] [address] [address] [address] Alysha Machuca WBC 5.6 103/ul Normal 4.0-11.0 [facility] Comment on above: Performed By: #### C BC #### [facility] [address] [address] [address] Alysha Machuca FERRITINon 02-20-2023 Ferritin [Mass/Vol] 36.0 ng/mL Normal 8.0-252.0 [facility] Comment on above: Performed By: #### F ERR, B12FOL, FETIBC, VITAD ####[facility] [address] [address]DrMaite Machuca IRON AND TIBCon 02-20-2023 % SATURATION 15.8 % Normal [facility] Comment on above: Performed By: #### F ERR, B12FOL, FETIBC, VITAD ####[facility] [address] [address]Dr. Alysha Machuca Iron [Mass/Vol] 53.0 ug/dL Normal 50.0-170.0 [facility] Comment on above: Performed By: #### F ERR, B12FOL, FETIBC, VITAD ####[facility] [address] [address]Dr. Alysha Machuca TIBC DIRECT 335.0 ug/dL Normal 250.0-450.0 [facility] Comment on above: Performed By: #### F ERR, B12FOL, FETIBC, VITAD ####[facility] [address] [place], [place] [address]NyDr. Alysha Machuca MAGNESIUMon 02-20-2023 Magnesium [Mass/Vol] 1.9 mg/dL Normal 1.8-2.4 [facility] Comment on above: Performed By: #### P HOS, CMP, MG #### [facility] [address] [address] [address] Alysha Machuca PHOSPHORUSon 02-20-2023 Phosphate [Mass/Vol] 3.9 mg/dL Normal 2.6-4.7 [facility] Comment on above: Performed By: #### P HOS, CMP, MG #### [facility] [address] [place] [address] Dr. Alysha Machuca PROF 14(COMP METB)on 023 Albumin [Mass/Vol] 3.4 g/dL Normal 3.4-5.0 [facility] Comment on above: Performed By: #### P HOS, CMP, MG #### [facility] [address] [place] [address] Dr. Alysha Machuca Albumin/Globulin [Mass ratio] 0.9 {ratio} Normal [facility] Comment on above: Performed By: #### P HOS, CMP, MG #### [facility] [address] [address] [address] Alysha Machuca ALP [Catalytic activity/Vol] 123 U/L Critically high 46-116 [facility] Comment on above: Performed By: #### P HOS, CMP, MG #### [facility] [address] [place] [address] Dr. Alysha Machuca ALT [Catalytic activity/Vol] 21 U/L Normal 14-59 [facility] Comment on above: Performed By: #### P HOS, CMP, MG #### [facility] [address] [place] [address] Dr. Alysha Machuca Anion gap [Moles/Vol] 13.8 mmol/L Normal [facility] Comment on above: Performed By: #### P HOS, CMP, MG #### [facility] [address] [address] [address] Alysha Machuca AST [Catalytic activity/Vol] 15 U/L Normal 15-37 [facility] Comment on above: Performed By: #### P HOS, CMP, MG #### [facility] [address] [address] [address] Alysha Machuca Bilirubin [Mass/Vol] 0.5 mg/dL Normal 0.2-1.0 [facility] Comment on above: Performed By: #### P HOS, CMP, MG #### [facility] [address] [place] [address] Dr. Alysha Machuca Calcium [Mass/Vol] 9.6 mg/dL Normal 8.5-10.1 [facility] Comment on above: Performed By: #### P HOS, CMP, MG #### [facility] [address] [place] [address] Dr. Alysha Machuca Chloride [Moles/Vol] 103 mmol/L Normal 98-107 [facility] Comment on above: Performed By: #### P HOS, CMP, MG #### [facility] [address] [place] [address] Dr. Alysha Machuca CO2 [Moles/Vol] 25.2 mmol/L Normal 21.0-32.[address] [facility] Comment on above: Performed By: #### P HOS, CMP, MG #### [facility] [address] [place] [address] Dr. Alysha Machuca Creatinine [Mass/Vol] 0.95 mg/dL Normal 0.55-1.02 [facility] Comment on above: Performed By: #### P HOS, CMP, MG #### [facility] [address] [place] [address] Dr. Alysha Machuca EGFR-AF FINNISH >60 Normal >=[address] [facility] Comment on above: Performed By: #### P HOS, CMP, MG #### [facility] [address] [address] [address] Alysha Machuca EGFR-NON AF FINNISH 58 mL/min/1.73m2 Critically low >=60 [facility] Comment on above: Performed By: #### P HOS, CMP, MG #### [facility] [address] [address] [address] Alysha Machuca Globulin (S) [Mass/Vol] 3.6 g/dL Normal [facility] Comment on above: Performed By: #### P HOS, CMP, MG #### [facility] [address] [address] [address] Alysha Machuca Glucose [Mass/Vol] 96 mg/dL Normal 74-106 [facility] Comment on above: Performed By: #### P HOS, CMP, MG #### [facility] [address] [place] [address] Dr. Alysha Machuca Potassium [Moles/Vol] 4.0 mmol/L Normal 3.5-5.1 [facility] Comment on above: Performed By: #### P HOS, CMP, MG #### [facility] [address] [address] [address] Alysha Machuca Protein [Mass/Vol] 7.0 g/dL Normal 6.4-8.2 [facility] Comment on above: Performed By: #### P HOS, CMP, MG #### [facility] [address] [place] [address] Dr. Alysha Machuca Sodium [Moles/Vol] 138 mmol/L Normal 136-145 [facility] Comment on above: Performed By: #### P HOS, CMP, MG #### [facility] [address] [address] [address] Alysha Machcua Urea nitrogen [Mass/Vol] 21.0 mg/dL Critically high 7.0-18.0 [facility] Comment on above: Performed By: #### P HOS, CMP, MG #### [facility] [address] [address] [address] Alysha Machuca Urea nitrogen/Creatini ne [Mass ratio] 22.1 mg/mg Normal [facility] Comment on above: Performed By: #### P HOS, CMP, MG #### [facility] [address] [place], [place] [address] Dr. Alysha Machuca VIT B12 AND FOLATEon 023 Cobalamin (Vitamin B12) [Mass/Vol] 652.0 pg/mL Normal 193.0-986.0 [facility] Comment on above: Performed By: #### F ERR, B12FOL, FETIBC, VITAD ####[facility] [address] [address]Dr. Alysha Machuca FOLATE 18.30 ng/mL Normal 8.60-58.90 [facility] Comment on above: Performed By: #### F ERR, B12FOL, FETIBC, VITAD ####[facility] [address] [address]Dr. Alysha Machuca VITAMIN D 25 OHon 02-20-2023 VIT D 25-OH 41.7 ng/mL Normal [facility] Comment on above: Performed By: #### F ERR, B12FOL, FETIBC, VITAD ####[facility] [address] [address]Dr. Alysha Machuca VIT D RANGES SEE BELOW Normal [facility] Comment on above: Result Comment: <20 ng/mL Vit D deficient 20 - <30 ng/mL Vit D insufficient 30 - 100 ng/mL Vit D sufficient >100 ng/mL Potential Toxicity Performed By: #### F ERR, B12FOL, FETIBC, VITAD ####[facility] [address] [address]Dr. Alysha Machuca XR KUB 1 VIEWon 02-20-2023 [...] KYLE CHENEY Date: 2023-02-20 15:57 Normal [facility] Office Visit (Cardiology)on 12-06-2022 Follow-up visit Diagnoses/Problems Assessed Anticoagulated (V58.61) (Z79.01) Hyperlipidemia (272.4) (E78.5) Non-ischemic cardiomyopathy (425.4) (I42.8) Paroxysmal atrial fibrillation (427.31) (I48.0) Class 2 obesity with body mass index (BMI) of 36.0 to 36.9 in adult (278.00,V85.36) (E66.9,Z68.36) Never a smoker Orders Class 2 obesity with body mass index (BMI) of 36.0 to 36.9 in adult Healthy Weight Tips; Status:Complete; Done: [id number] Some eating tips that can help you lose weight.; Status:Complete; Done: [id number] Hyperlipidemia Renew: Lovastatin 10 MG Oral Tablet; TAKE 1 TABLET DAILY DIRECTED Paroxysmal atrial fibrillation IO EKG Electrocardiogram- 12 Lead; Status:Complete; Done: 06Fdv5442 SocHx: Never a smoker Tobacco Use Screening; Status:Complete; Done: 26Vpj5219 Patient Instructions Please bring all medicines, vitamins, [...] MG Oral TabletTAKE 1 TABLET Twice daily [place] 3 [place] DIRECTED. Tylenol Arthritis Ext Relief [...] negative for complaint. Vitals Vital Signs Recorded: [id number] 01:27PM Heart Rate43, Apical Esoeyxtr061, RUE, Sitting Vnqqfshgy33, RUE, Sitting Height5 ft 5 in Cziapw734 lb BMI Socgwgkraw28.94 kg/m2 BSA Calculated2.07 Tobacco Useb) No PHQ-2 [...] Screening.on 023 Adult depression screening assessment No [facility] y 250 DO Work Phone: Fall risk assessment a) No falls within the last year [facility] 250 DO Work Phone: Tobacco use status CPHS b) No [facility] 250 DO Work Phone: VC INJ SCL [place] MERCHANDISE APPRAISER VEINSon 0 11-03-2022 VC INJ SCL EDMON[place] MERCHANDISE APPRAISER VEINS Patient: MIKY FUENTES Exam Date: 11/03/2022 : 1950 Gender:F Ordering : DR WILLARD SHARMA M.D. Admission #: [id number] Family : Order #: [id number] CLICK HERE TO VIEW EXAM RADIOLOGY REPORT PROCEDURE: VEIN CENTER INJECTION SCLEROSING SOLUTION MULTIPLE VEINS SAME COMPARISON: VC INJ SCL EDMOND MERCHANDISE APPRAISER VEINS, 10/27/2022. VC INJ SCL EDMOND MERCHANDISE APPRAISER VEINS, 10/16/2022. INDICATIONS: Pain co-occurrent and due [...] Sharma MD on 11/03/2022 at 12:37 Normal [facility] XR KUB 1 VIEWon 11-03-2022 XR KUB [...] by: KYLE CHENEY Date: 2022-11-03 12:52 Normal [facility] VC INJ SCL EDMOND MERCHANDISE APPRAISER VEINSon 1 VC INJ SCL EDMON[place] MERCHANDISE APPRAISER VEINS Patient: MIKY FUENTES Exam Date: 10/27/2022 : 1950 Gender:F Ordering : DR WILLARD SHARMA M.D. Admission #: [id number] Family : Order #: [id number] CLICK HERE TO VIEW EXAM RADIOLOGY REPORT PROCEDURE: VEIN CENTER INJECTION SCLEROSING SOLUTION MULTIPLE VEINS SAME COMPARISON: VC INJ SCL EDMOND MERCHANDISE APPRAISER VEINS, 10/16/2022. VC INJ SCL EDMOND MERCHANDISE APPRAISER VEINS, 10/06/2022. INDICATIONS: Pain co-occurrent and due [...] Sharma MD on 10/27/2022 at 11:46 Normal [facility] VC INJ SCL EDMOND MERCHANDISE APPRAISER VEINSon 1 12-17-2021 VC INJ SCL [place] MERCHANDISE APPRAISER VEINS Patient: MIKY FUENTES Exam Date: 10/16/2022 : 1950 Gender:F Ordering : DR WILLARD SHARMA M.D. Admission #: [id number] Family : Order #: [id number] CLICK HERE TO VIEW EXAM RADIOLOGY REPORT PROCEDURE: VEIN CENTER INJECTION SCLEROSING SOLUTION MULTIPLE VEINS SAME COMPARISON: VC INJ SCL [place] MERCHANDISE APPRAISER VEINS, 10/06/2022. INDICATIONS: Pain co-occurrent and due [...] M.D. on 10/17/2022 at 08:12 Normal [facility] CREATININEon 10-10-2022 Creatinine [Mass/Vol] 1.11 mg/dL Critically high 0.55-1.02 [facility] Comment on above: Performed By: #### C AIYANA ####[facility] [address] [place] [address]DrMaite Machuca EGFR-AF FINNISH 59 mL/min/1.73m2 Critically low >=60 [facility] Comment on above: Performed By: #### C AIYANA ####[facility] [address] [place] [address]DrMaite Machuca EGFR-NON AF FINNISH 48 mL/min/1.73m2 Critically low >=60 [facility] Comment on above: Performed By: #### C AIYANA ####[facility] [address] [place], [place] [address]DvMaite Machuca VC INJ SCL ED[place] MERCHANDISE APPRAISER VEINSon 1 12-07-2021 VC INJ SCL [place] MERCHANDISE APPRAISER VEINS Patient: MIKY FUENTES Exam Date: 10/06/2022 : 1950 Gender:F Ordering : DR WILLARD SHARMA M.D. Admission #: [id number] Family : Order #: [id number] CLICK HERE TO VIEW EXAM RADIOLOGY REPORT [...] MD on 10/06/2022 at 13:45 Normal [facility] VC CONSULT FOLLOWUPon 2021 VC CONSULT FOLLOWUP Patient: MIKY FUENTES Exam Date: 09/26/2022 : 1950 Gender:F Ordering : DR WILLARD SHARMA M.D. Admission #: [id number] Family : Order #: [id number] CLICK HERE TO VIEW EXAM RADIOLOGY REPORT [...] Cheney M.D. on 09/26/2022 at 15:46 Normal [facility] VC EXT VENOUS RT LIMITEDon 1 11-26-2021 VC EXT VENOUS RT LIMITED Patient: MIKY FUENTES Exam Date: 09/26/2022 : 1950 Gender:F Ordering : DR WILLARD SHARMA M.D. Admission #: [id number] Family : Order #: [id number] CLICK HERE TO VIEW EXAM RADIOLOGY REPORT [...] Cheney M.D. on 09/26/2022 at 15:44 Normal [facility] VC INJ FOAM SCLERO W US MLTI on 09-20-2022 VC INJ FOAM SCLERO W US MLTI Patient: MIKY FUENTES Exam Date: 09/20/2022 : 1950 Gender:F Ordering : DR WILLARD SHARMA M.D. Admission #: [id number] Family : Order #: [id number] CLICK HERE TO VIEW EXAM RADIOLOGY REPORT [...] Kyle Cheney M.D. on 09/20/2022 at 15:43 [facility] CONSULT FOLLOWUPon 2021 VC CONSULT FOLLOWUP Patient: MIKY FUENTES Exam Date: 09/07/2022 : 1950 Gender:F Ordering : DR WILLARD SHARMA M.D. Admission #: [id number] Family : Order #: [id number] CLICK HERE [...] MD on 09/07/2022 at 13:04 Normal [facility] VC EXT VENOUS LT LIMITEDon 1 11-07-2021 VC EXT VENOUS LT LIMITED Patient: MIKY FUENTES Exam Date: 09/07/2022 : 1950 Gender:F Ordering : DR WILLARD SHARMA M.D. Admission #: [id number] Family : Order #: [id number] CLICK HERE TO VIEW EXAM RADIOLOGY REPORT [...] MD on 09/07/2022 at 11:59 Normal [facility] CBC AUTO DIFFon 09-01-2022 BASO # 0.0 103/ul Normal 0.0-0.1 [facility] Comment on above: Performed By: #### C BC #### [facility] [address] [place] [address] Dr. Alysha Machuca Basophils/100 WBC (Bld) 0.6 % Normal 0.2-2.0 [facility] Comment on above: Performed By: #### C BC #### [facility] [address] [place] [address] Dr. Alysha Machuca EO # 0.3 103/ul Normal 0.0-0.7 [facility] Comment on above: Performed By: #### C BC #### [facility] [address] [place] [address] Dr. Alysha Machuca Eosinophils/100 WBC (Bld) 4.3 % Normal 0.9-7.0 [facility] Comment on above: Performed By: #### C BC #### [facility] [address] [place] [address] Dr. Alysha Machuca Erythrocyte distribution width (RBC) [Ratio] 14.6 % Normal 11.0-15.0 [facility] Comment on above: Performed By: #### C BC #### [facility] [address] [place] [address] Dr. Alysha Machuca Hematocrit (Bld) [Volume fraction] 39.7 % Normal 36.0-48.0 [facility] Comment on above: Performed By: #### C BC #### [facility] [address] [place] [address] Dr. Alysha Machuca Hemoglobin (Bld) [Mass/Vol] 13.1 g/dL Normal 12.0-16.0 [facility] Comment on above: Performed By: #### C BC #### [facility] [address] [place] [address] Dr. Alysha Machuca IG # 0.01 10e3/ul Normal 0.00-0.03 [facility] Comment on above: Performed By: #### C BC #### [facility] [address] [place] [address] Dr. Alysha Machuca IG % 0.2 % Normal 0.0-0.5 [facility] Comment on above: Performed By: #### C BC #### [facility] [address] [place] [address] Dr. Alysha Machuca LYMPH # 1.9 103/ul Normal 1.2-3.8 [facility] Comment on above: Performed By: #### C BC #### [facility] [address] [place] [address] Dr. Alysha Machuca Lymphocytes/100 WBC (Bld) 29.5 % Normal 20.5-60.0 [facility] Comment on above: Performed By: #### C BC #### [facility] [address] [place] [address] Dr. Alysha Machuca MANUAL DIFF REQ NO Normal [facility] Comment on above: Performed By: #### C BC #### [facility] [address] [place] [address] Dr. Alysha Machuca MCH (RBC) [Entitic mass] 29.8 pg Normal 26.7-34.0 [facility] Comment on above: Performed By: #### C BC #### [facility] [address] [place] [address] Dr. Alysha Machuca MCHC (RBC) [Mass/Vol] 33.0 g/dL Normal 29.9-35.2 [facility] Comment on above: Performed By: #### C BC #### [facility] [address] [place] [address] Dr. Alysha Machuca MCV (RBC) [Entitic vol] 90.2 fL Normal 81.0-99.0 [facility] Comment on above: Performed By: #### C BC #### [facility] [address] [place] [address] Dr. Alysha Machuca MONO # 0.5 103/ul Normal 0.3-0.8 [facility] Comment on above: Performed By: #### C BC #### [facility] [address] [place] [address] Dr. Alysha Machuca Monocytes/100 WBC (Bld) 7.0 % Normal 1.7-12.0 [facility] Comment on above: Performed By: #### C BC #### [facility] [address] [place] [address] Dr. Alysha Machuca NEUT # 3.8 103/ul Normal 1.4-6.5 [facility] Comment on above: Performed By: #### C BC #### [facility] [address] [place] [address] Dr. Alysha Machuca Neutrophils/100 WBC (Bld) 58.4 % Normal 43.0-75.0 [facility] Comment on above: Performed By: #### C BC #### [facility] [address] [place] [address] Dr. Alysha Machuca Platelet mean volume (Bld) [Entitic vol] 9.5 fL Normal 9.5-13.5 [facility] Comment on above: Performed By: #### C BC #### [facility] [address] [place] [address] Dr. Alysha Machuca PLT 235 103/ul Normal 150-450 [facility] Comment on above: Performed By: #### C BC #### [facility] [address] [place] [address] Dr. Alysha Machuca RBC 4.40 106/ul Normal 4.20-5.40 [facility] Comment on above: Performed By: #### C BC #### [facility] [address] [place] [address] [address] Alysha Machuac WBC 6.6 103/ul Normal 4.0-11.0 [facility] Comment on above: Performed By: #### C BC #### [facility] [address] [place] [address] [address] Alysha Machuca PROF CHEM 8 (BAS METB)on Anion gap [Moles/Vol] 7.7 mmol/L Normal [facility] Comment on above: Performed By: #### B MP ####[facility] [address] [place] [address]DrMaite Machuca Calcium [Mass/Vol] 9.8 mg/dL Normal 8.5-10.1 [facility] Comment on above: Performed By: #### B MP ####[facility] [address] [place] [address]DrMaite Machuca Chloride [Moles/Vol] 104 mmol/L Normal 98-107 [facility] Comment on above: Performed By: #### B MP ####[facility] [address] [place] [address]DrMaite Machuca CO2 [Moles/Vol] 29.2 mmol/L Normal 21.0-32.[address] [facility] Comment on above: Performed By: #### B MP ####[facility] [address] [place] [address]DrMaite Machuca Creatinine [Mass/Vol] 1.05 mg/dL Critically high 0.55-1.02 [facility] Comment on above: Performed By: #### B MP ####[facility] [address] [place] [address]DrMaite Machuca EGFR-AF FINNISH >60 Normal >=[address] [facility] Comment on above: Performed By: #### B MP ####[facility] [address] [place] [address]Dr. Alysha Machuca EGFR-NON AF FINNISH 52 mL/min/1.73m2 Critically low >=60 [facility] Comment on above: Performed By: #### B MP ####[facility] [address] [place] [id number]. Alysha Amchuca Glucose [Mass/Vol] 107 mg/dL Critically high 74-106 [facility] Comment on above: Performed By: #### B MP ####[facility] [address] [place] [id number]. Alysha Sven Potassium [Moles/Vol] 3.9 mmol/L Normal 3.5-5.1 [facility] Comment on above: Performed By: #### B MP ####[facility] [address] [place] [address]Dr. Alysha Sven Sodium [Moles/Vol] 137 mmol/L Normal 136-145 [facility] Comment on above: Performed By: #### B MP ####[facility] [address] [place] [address]Dr. Alysha Sven Urea nitrogen [Mass/Vol] 16.0 mg/dL Normal 7.0-18.0 [facility] Comment on above: Performed By: #### B MP ####[facility] [address] [place] [id number]. Alysha Sven Urea nitrogen/Creatini ne [Mass ratio] 15.2 mg/mg Normal [facility] Comment on above: Performed By: #### B MP ####[facility] [address] [place] [address]Dr. Alysha Sven VC INJ FOAM SCLERO W US MLTI on 08-31-2022 VC INJ FOAM SCLERO W US MLTI Patient: MIKY FUENTES Exam Date: 08/31/2022 : 1950 Gender:F Ordering : DR WILLARD SHARMA M.D. Admission #: [id number] Family : Order #: [id number] CLICK HERE TO VIEW EXAM RADIOLOGY REPORT [...] compressi (more content not included)... Normal [facility] VC CONSULT FOLLOWUPon 2021 VC CONSULT FOLLOWUP Patient: MIKY FUENTES Exam Date: 08/22/2022 : 1950 Gender:F Ordering : DR WILLARD SHARMA M.D. Admission #: [id number] Family : Order #: [id number] CLICK HERE TO VIEW EXAM RADIOLOGY REPORT [...] Sharma MD on 08/22/2022 at 10:45 Normal [facility] VC EXT VENOUS RT LIMITEDon 1 VC EXT VENOUS RT LIMITED Patient: MIKY FUENTES Exam Date: 08/22/2022 : 1950 Gender:F Ordering : DR WILLARD SHARMA M.D. Admission #: [id number] Family : Order #: [id number] CLICK HERE TO VIEW EXAM RADIOLOGY REPORT [...] Willard Sharma MD on 08/22/2022 at 10:21 [facility] VC INJ FOAM SCLERO W US MLTI on 08-17-2022 VC INJ FOAM SCLERO W US MLTI Patient: MIKY FUENTES Exam Date: 08/17/2022 : 1950 Gender:F Ordering : DR WILLARD SHARMA M.D. Admission #: [id number] Family : Order #: [id number] CLICK HERE TO VIEW EXAM RADIOLOGY REPORT [...] take (more content not included)... Normal [facility] VC CONSULT FOLLOWUPon 2021 VC CONSULT FOLLOWUP Patient: MIKY FUENTES Exam Date: 08/07/2022 : 1950 Gender:F Ordering : DR WILLARD SHARMA M.D. Admission #: [id number] Family : Order #: [id number] CLICK HERE TO VIEW EXAM RADIOLOGY REPORT [...] Sharma MD on 08/07/2022 at 13:31 Normal [facility] VC EXT VENOUS LT LIMITEDon 1 VC EXT VENOUS LT LIMITED Patient: MIKY FUENTES Exam Date: 08/07/2022 : 1950 Gender:F Ordering : DR WILLARD SHARMA M.D. Admission #: [id number] Family : Order #: [id number] CLICK HERE TO VIEW EXAM RADIOLOGY REPORT [...] Sharma MD on 08/07/2022 at 12:01 Normal [facility] VC INJ FOAM SCLERO W US MLTI on 08-01-2022 VC INJ FOAM SCLERO W US MLTI Patient: MIKY FUENTES Exam Date: 08/01/2022 : 1950 Gender:F Ordering : DR WILLARD SHARMA M.D. Admission #: [id number] Family : Order #: [id number] CLICK HERE TO VIEW EXAM RADIOLOGY REPORT [...] compr (more content not included)... Normal [facility] VC CONSULT FOLLOWUPon 2021 VC CONSULT FOLLOWUP Patient: MIKY FUENTES Exam Date: 07/17/2022 : 1950 Gender:F Ordering : DR WILLARD SHARMA M.D. Admission #: [id number] Family : Order #: [id number] CLICK HERE TO VIEW EXAM RADIOLOGY REPORT [...] Cheney M.D. on 07/17/2022 at 12:18 Normal [facility] VC EXT VENOUS RT LIMITEDon 0 07-17-2022 VC EXT VENOUS RT LIMITED Patient: MIKY FUENTES Exam Date: 07/17/2022 : 1950 Gender:F Ordering : DR WILLARD SHARMA M.D. Admission #: [id number] Family : Order #: [id number] CLICK HERE TO VIEW EXAM RADIOLOGY REPORT [...] Kyle Cheney M.D. on 07/17/2022 at 12:14 [facility] VC INJ FOAM SCLERO W US MLTI on 07-12-2022 VC INJ FOAM SCLERO W US MLTI Patient: MIKY FUENTES Exam Date: 07/12/2022 : 1950 Gender:F Ordering : DR WILLARD SHARMA M.D. Admission #: [id number] Family : Order #: [id number] CLICK HERE TO VIEW EXAM RADIOLOGY REPORT [...] da (more content not included)... Normal [facility] VC CONSULT FOLLOWUPon 2021 VC CONSULT FOLLOWUP Patient: MIKY FUENTES Exam Date: 06/30/2022 : 1950 Gender:F Ordering : DR WILLARD SHARMA M.D. Admission #: [id number] Family : Order #: [id number] CLICK HERE TO VIEW EXAM RADIOLOGY REPORT [...] Sharma MD on 06/30/2022 at 13:21 Normal [facility] VC EXT VENOUS LT LIMITEDon 0 06-30-2022 VC EXT VENOUS LT LIMITED Patient: MIKY FUENTES Exam Date: 06/30/2022 : 1950 Gender:F Ordering : DR WILLARD SHARMA M.D. Admission #: [id number] Family : Order #: [id number] CLICK HERE TO VIEW EXAM RADIOLOGY REPORT [...] Sharma MD on 06/30/2022 at 13:02 Normal [facility] ALBUMIN, RANDOM URINE W/CREA TININEon 06-26-2022 ALBUMIN, URINE 12.7 mg/dL Normal See Note: [facility] Comment on above: Result Comment: Refe rence Range: Reference Range Not established Performed By: #### 7 600, 496, 31074, 6517 #### [facility] [address], [address] [place] [address] Project Drilling Engineer: Marek Subramanian MD ALBUMIN/CREATININ E RATIO, [...] category. Performed By: #### 7 600, 496, 58535, 6517 #### [facility] [place] [address] Project Drilling Engineer: Marek Subramanian MD Creatinine (U) [Mass/Vol] 205 mg/dL Normal 20-275 [facility] Comment on above: Performed By: #### 7 600, 496, 51270, 6517 #### [facility] [place] [address] Project Drilling Engineer: Marek Subramanian MD [facility] 06-26-2022 Albumin [Mass/Vol] 3.9 g/dL Normal 3.6-5.1 [facility] Comment on above: Performed By: #### 7 600, 496, 59206, 6517 #### [facility] [place] [address] Project Drilling Engineer: Marek Subramanian MD Albumin/Globulin [Mass ratio] 1.4 {ratio} Normal 1.0-2.5 [facility] Comment on above: Performed By: #### 7 600, 496, 77593, 6517 #### [facility] [place] [address] Project Drilling Engineer: Marek Subramanian MD ALP [Catalytic activity/Vol] 106 U/L Normal 37-153 [facility] Comment on above: Performed By: #### 7 600, 496, 58208, 6517 #### [facility] [place] [address] Project Drilling Engineer: Marek Subramanian MD ALT [Catalytic activity/Vol] 10 U/L Normal 6-29 [facility] Comment on above: Performed By: #### 7 600, 496, 18173, 6517 #### [facility] of [place] [address] Project Drilling Engineer: Marek Subramanian MD AST [Catalytic activity/Vol] 13 U/L Normal 10-35 [facility] Comment on above: Performed By: #### 7 600, 496, 02699, 6517 #### [facility] [place] [address] Project Drilling Engineer: Marek Subramanian MD Bilirubin [Mass/Vol] 0.8 mg/dL Normal 0.2-1.2 [facility] Comment on above: Performed By: #### 7 600, 496, 43997, 6517 #### [facility] [place] [address] Project Drilling Engineer: Marek Subramanian MD BUN/CREATININE RATIO NOT APPLICABLE Normal 6-22 [facility] Comment on above: Performed By: #### 7 600, 496, 68274, 6517 #### [facility] [place] [address] Project Drilling Engineer: Marek Subramanian MD Calcium [Mass/Vol] 9.9 mg/dL Normal 8.6-10.4 [facility] Comment on above: Performed By: #### 7 600, 496, 97317, 6517 #### [facility] [place] [address] Project Drilling Engineer: Marek Subramanian MD Chloride [Moles/Vol] 109 mmol/L Normal 98-110 [facility] Comment on above: Performed By: #### 7 600, 496, 57036, 6517 #### [facility] [place] [address] Project Drilling Engineer: Marek Subramanian MD CO2 [Moles/Vol] 24 mmol/L Normal 20-32 [facility] Comment on above: Performed By: #### 7 600, 496, 67480, 6517 #### [facility] [place] [address] Project Drilling Engineer: Marek Subramanian MD Creatinine [Mass/Vol] 0.88 mg/dL Normal 0.60-1.00 [facility] Comment on above: Performed By: #### 7 600, 496, 08406, 6517 #### [facility] [place] [address] Project Drilling Engineer: Marek Subramanian MD GFR/1.73 sq M.predicted among non-blacks MDRD (S/P/Bld) [Vol rate/Area] 70 mL/min/{1.73_m2} Normal > OR = 60 [facility] Comment on above: Result Comment: The eGFR is based on the CKD-EPI 2020 equation. To calculate the new eGFR from a previous Creatinine or Cystatin C result, go to https://www.kidney.org/professionals/ kdoqi/gfr%5Fcalculator Performed By: #### 7 600, 496, 24136, 6517 #### [facility] [place] [address] Project Drilling Engineer: Marek Subramanian MD Globulin (S) [Mass/Vol] 2.7 g/dL Normal 1.9-3.7 [facility] Comment on above: Performed By: #### 7 600, 496, 45145, 6517 #### [facility] [place] [address] Project Drilling Engineer: Marek Subramanian MD Glucose [Mass/Vol] 91 mg/dL Normal 65-99 [facility] Comment on above: Result Comment: Fasting reference interval Performed By: #### 7 600, 496, 34573, 6517 #### [facility] [place] [address] Project Drilling Engineer: Marek Subramanian MD Potassium [Moles/Vol] 4.0 mmol/L Normal 3.5-5.3 [facility] Comment on above: Performed By: #### 7 600, 496, 29348, 6517 #### [facility] of [address], [address] [place] [address] Project Drilling Engineer: Marek Subramanian MD Protein [Mass/Vol] 6.6 g/dL Normal 6.1-8.1 [facility] Comment on above: Performed By: #### 7 600, 496, 86285, 6517 #### [facility] [address], [address] [place] [address] Project Drilling Engineer: Marek Subramanian MD Sodium [Moles/Vol] 143 mmol/L Normal 135-146 [facility] Comment on above: Performed By: #### 7 600, 496, 52630, 6517 #### [facility] [address], [address] [place] [address] Project Drilling Engineer: Marek Subramanian MD Urea nitrogen [Mass/Vol] 15 mg/dL Normal 7-25 [facility] Comment on above: Performed By: #### 7 600, 496, 17214, 6517 #### [facility] [address], [address] [place] [address] Project Drilling Engineer: Marek Subramanian MD HEMOGLOBIN A1con 06-26-2022 [...] diagnosis of diabetes in children. According to [place] [employer] (ADA) guidelines, hemoglobin A1c <7.0% represents optimal control in non- diabetic patients. Different metrics may apply to specific patient populations. Standards of Medical Care in Diabetes(ADA). Performed By: #### 7 600, 496, 62611, 6517 #### [facility] [address], [address] [place] [address] Project Drilling Engineer: Marek Subramanian MD LIPID PANEL, STANDARDon 08- Cholesterol [Mass/Vol] 171 mg/dL Normal <200 [facility] Comment on above: Order Comment: FASTI NG:YES FASTING: YES Performed By: #### 7 600, 496, 84155, 6517 #### [facility] [address], [address] [place] [address] Project Drilling Engineer: Marek Subramanian MD Cholesterol in HDL [Mass/Vol] 60 mg/dL Normal > OR = 50 [facility] Comment on above: Order Comment: FASTI NG:YES FASTING: YES Performed By: #### 7 600, 496, 28906, 6517 #### [facility] [address], [address] [place] [address] Project Drilling Engineer: Marek Subramanian MD Cholesterol in LDL [...] LDL-C. Nikita SS et al. LEWIS. 2013;310(19): 3250-8806 (http://education.[employer].indico/faq/CLR763) Performed By: #### 7 600, 496, 57221, 6517 #### [facility] [address], [address] [place] [address] Project Drilling Engineer: Marek Subramanian MD Cholesterol.total /Cholesterol in HDL [Mass ratio] 2.9 {ratio} Normal <5.0 [facility] Comment on above: Order Comment: FASTI NG:YES FASTING: YES Performed By: #### 7 600, 496, 81868, 6517 #### [facility] [address], [address] [place] [address] Project Drilling Engineer: Marek Subramanian MD NON HDL CHOLESTEROL 111 mg/dL (calc) Normal <130 [facility] Comment on above: Order Comment: FASTI NG:YES FASTING: YES Result Comment: For patients with diabetes plus 1 major ASCVD risk factor, treating to a non-HDL-C goal of <100 mg/dL (LDL-C of <70 mg/dL) is considered a therapeutic option. Performed By: #### 7 600, 496, 44194, 6517 #### [facility] [address] [place] [address], [address] Project Drilling Engineer: Marek Subramanian MD Triglyceride [Mass/Vol] 95 mg/dL Normal <150 [facility] Comment on above: Order Comment: FASTI NG:YES FASTING: YES Performed By: #### 7 600, 496, 60473, 6517 #### [facility] [address] [place] [address], [address] Project Drilling Engineer: Marek Subramanian MD VC INJ FOAM SCLERO W US MLTI on 06-26-2022 VC INJ FOAM SCLERO W US MLTI Patient: MIKY FUENTES Exam Date: 06/26/2022 : 1950 Gender:F Ordering : DR WILLARD SHARMA M.D. Admission #: [id number] Family : Order #: [id number] CLICK HERE TO VIEW EXAM RADIOLOGY REPORT [...] vein medial distal lower leg/ankle. A large object oriented developer vein was occluded with manual pressure until [...] varices, (more content not included)... Normal [facility] VC CONSULT FOLLOWUPon 2021 VC CONSULT FOLLOWUP Patient: MIKY FUENTES Exam Date: 06/19/2022 : 1950 Gender:F Ordering : DR WILLARD SHARMA M.D. Admission #: [id number] Family : Order #: [id number] CLICK HERE TO VIEW EXAM RADIOLOGY REPORT [...] Kyle Cheney M.D. on 06/19/2022 at 12:14 [facility] VC EXT VENOUS RT LIMITEDon 0 06-19-2022 VC EXT VENOUS RT LIMITED Patient: MIKY FUENTES Exam Date: 06/19/2022 : 1950 Gender:F Ordering : DR WILLARD SHARMA M.D. Admission #: [id number] Family : Order #: [id number] CLICK HERE TO VIEW EXAM RADIOLOGY REPORT [...] Cheney M.D. on 06/19/2022 at 12:11 Normal [facility] VC INJ FOAM SCLERO W US MLTI on 06-13-2022 VC INJ FOAM SCLERO W US MLTI Patient: MIKY FUENTES Exam Date: 06/13/2022 : 1950 Gender:F Ordering : DR WILLARD SHARMA M.D. Admission #: [id number] Family : Order #: [id number] CLICK HERE TO VIEW EXAM CORRECTION made [...] Kyle Cheney M.D. on 06/19/2022 at 12:17 [facility] VC CONSULT FOLLOWUPon 2021 VC CONSULT FOLLOWUP Patient: MIKY FUENTES Exam Date: 05/31/2022 : 1950 Gender:F Ordering : DR WILLARD SHARMA M.D. Admission #: [id number] Family : Order #: [id number] CLICK HERE TO VIEW EXAM RADIOLOGY REPORT [...] Cheney M.D. on 05/31/2022 at 12:18 Normal [facility] VC EXT VENOUS LT LIMITEDon 0 05-31-2022 VC EXT VENOUS LT LIMITED Patient: MIKY FUENTES Exam Date: 05/31/2022 : 1950 Gender:F Ordering : DR WILLARD SHARMA M.D. Admission #: [id number] Family : Order #: [id number] CLICK HERE TO VIEW EXAM RADIOLOGY REPORT [...] Cheney M.D. on 05/31/2022 at 12:13 Normal [facility] CT ABD/PELVIS WO CONon 05-26 CT ABD/PELVIS [...] by: SANTHOSH NICK Date: 2022-05-26 16:43 Normal [facility] VC ENDOVENOUS ABL 1ST V LTon 05-23-2022 VC ENDOVENOUS ABL 1ST V LT Patient: MIKY FUENTES Exam Date: 05/23/2022 : 1950 Gender:F Ordering : DR WILLARD SHARMA M.D. Admission #: [id number] Family : Order #: [id number] CLICK HERE TO VIEW EXAM RADIOLOGY REPORT [...] Cheney M.D. on 05/23/2022 at 12:34 Normal [facility] US KIDNEYSon 05-05-2022 US KIDNEYS EXAMINATION: US [...] WILLARD SHARMA Date: 2022-05-05 13:29 Normal [facility] XR KUB 1 VIEWon 05-05-2022 XR [...] by: KYLE CHENEY Date: 2022-05-05 15:54 Normal [facility] MAMM SCREEN 3D TANMAY CADon 05-04-2022 MG MAMM SCREEN 3D TANMAY CAD Patient: MIKY FUENTES Exam Date: 05/04/2022 : 1950 Gender:F Ordering : DR CONNOR ANAYA Admission #: [id number] Family : Order #: [id number] CLICK HERE TO VIEW EXAM RADIOLOGY REPORT [...] colon cancer at age 60. LOCATION: [facility] BREAST COMPOSITION: Scattered areas fibroglandular density. [...] Cheney M.D. on 05/05/2022 at 14:21 Normal [facility] VC CONSULT FOLLOWUPon 2021 VC CONSULT FOLLOWUP Patient: MIKY FUENTES Exam Date: 05/04/2022 : 1950 Gender:F Ordering : DR WILLARD SHARMA M.D. Admission #: [id number] Family : Order #: [id number] CLICK HERE TO VIEW EXAM RADIOLOGY REPORT [...] M.D. on 05/04/2022 at 11:43 Normal [facility] VC EXT VENOUS RT LIMITEDon 0 05-04-2022 VC EXT VENOUS RT LIMITED Patient: MIKY FUENTES Exam Date: 05/04/2022 : 1950 Gender:F Ordering : DR WILLARD SHARMA M.D. Admission #: [id number] Family : Order #: [id number] CLICK HERE TO VIEW EXAM RADIOLOGY REPORT [...] on 05/04/2022 at 11:08 Approved by: Kyle Chenye M.D. on 05/04/2022 at 11:17 Normal [facility] CULTURE URINEon 05-03-2022 CULTURE URINE Culture Observations : LIGHT GROWTH OF MIXED GENITAL LUDWIN. NO POTENTIAL PATHOGENS SEEN. Normal [facility] Comment on above: Performed By: #### U RCX ####[facility] [address] [place], [place] [address]LkDr. Alysha Machuca UA RANDOMon 05-03-2022 Bilirubin Ql (U) Negative Normal NEGATIVE [facility] Comment on above: Performed By: #### U A #### [facility] [address] [place] [address] Dr. Alysha Machuca Clarity (U) TURBID Abnormal CLEAR [facility] Comment on above: Performed By: #### U A #### [facility] [address] [place] [address] Dr. Alysha Machuca Color (U) RED Abnormal YELLOW [facility] Comment on above: Result Comment: Prev iously reported as: YELLOW On 05/03/2022 17:30 By CV2 Performed By: #### U A #### [facility] [address] [place] [address] Dr. Alysha Machuca Glucose Ql (U) Negative Normal NEGATIVE [facility] Comment on above: Performed By: #### U A #### [facility] [address] [place] [address] Dr. Alysha Machuca Hemoglobin Ql (U) LARGE Abnormal NEGATIVE [facility] Comment on above: Performed By: #### U A #### [facility] [address] [place] [address] Dr. Alysha Machuca Ketones Ql (U) Negative Normal NEGATIVE [facility] Comment on above: Performed By: #### U A #### [facility] [address] [place] [address] Dr. Alysha Machuca LEUKOCYTES Negative Normal NEGATIVE [facility] Comment on above: Performed By: #### U A #### [facility] [address] [place] [address] Dr. Alysha Machuca Nitrite Ql (U) Negative Normal NEGATIVE [facility] Comment on above: Performed By: #### U A #### [facility] [address] [place] [address] Dr. Alysha Machuca pH (U) 6.0 [pH] Normal 5-9 [facility] Comment on above: Performed By: #### U A #### [facility] [address] [place] [address] Dr. Alysha Machuca SPEC GRAVITY 1.025 Normal 1.005-<=1.025 [facility] [place] [facility] Comment on above: Performed By: #### U A #### [facility] [address] [address] [address] Alysha Machuca UA PROTEIN 100 mg/dl Abnormal NEGATIVE/ TRACE [facility] [place] [facility] Comment on above: Performed By: #### U A #### [facility] [address] [id number] Alysha Machuca Urobilinogen Qn (U) 0.2 {Luis'U}/dL Normal 0.2 - 1.0 [facility] Comment on above: Performed By: #### U A #### [facility] [address] [place] [address] Dr. Alysha Machuca VC ENDOVENOUS ABL 1ST V RTon 04-26-2022 VC ENDOVENOUS ABL 1ST V RT Patient: MIKY FUENTES Exam Date: 04/26/2022 : 1950 Gender:F Ordering : DR WILLARD SHARMA M.D. Admission #: [id number] Family : Order #: [id number] CLICK HERE TO VIEW EXAM RADIOLOGY REPORT [...] Sharma MD on 04/26/2022 at 10:58 Normal [facility] VC CONSULT FOLLOWUPon 2021 VC CONSULT FOLLOWUP Patient: MIKY FUENTES Exam Date: 04/13/2022 : 1950 Gender:F Ordering : DR WILLARD SHARMA M.D. Admission #: [id number] Family : Order #: [id number] CLICK HERE TO VIEW EXAM RADIOLOGY REPORT [...] Cheney M.D. on 04/13/2022 at 10:59 Normal [facility] VC EXT VENOUS LT LIMITEDon 0 04-13-2022 VC EXT VENOUS LT LIMITED Patient: MIKY FUENTES Exam Date: 04/13/2022 : 1950 Gender:F Ordering : DR WILLARD SHARMA M.D. Admission #: [id number] Family : Order #: [id number] CLICK HERE TO VIEW EXAM RADIOLOGY REPORT [...] M.D. on 04/13/2022 at 10:56 Normal [facility] Office Visit (Cardiology)on 03-22-2022 Follow-up visit [...] Weight Tips; Status:Complete - Retrospective Authorization; Done: [id number] Paroxysmal atrial fibrillation IO EKG Electrocardiogram- 12 Lead; Status:Complete; Done: [id number] SocHx: Never a smoker Tobacco Use Screening; Status:Complete; Done: [id number] Patient Instructions By signing my name below, [...] failure. With guideline directed therapy in the yazidi of maintenance of sinus rhythm her symptoms [...] Oral TabletTake 1 tablet twice a day [place] 3 [place] DIRECTED. Tylenol Arthritis Ext Relief [...] negative for complaint. Vitals Vital Signs Recorded: [id number] 02:06PM Heart Rate47, Apical Vtfwrplq417, RUE, Sitting Seivsslwy88, RUE, Sitting Height5 ft 5 in Imggrw795 lb 6.4 oz BMI Fnwvhtdrla27.17 kg/m2 BSA Calculated2.19 Tobacco Useb) No PHQ-2 [...] no murmurs (more content not included)... Normal [employer] Tobacco Screening.on 022 Adult depression screening assessment No -[facility] [facility] [address] DO Work Phone: Fall risk assessment a) No falls within the last year [facility] [facility] [employer] DO Work Phone: Tobacco use status CP b) No -[facility] [facility] [address] DO Work Phone: VC ENDOVENOUS ABL PERFORATIN G LTon 03-22-2022 VC ENDOVENOUS ABL PERFORATING LT Patient: MIKY FUENTES Exam Date: 03/22/2022 : 1950 Gender:F Ordering : DR WILLARD SHARMA M.D. Admission #: [id number] Family : Order #: [id number] CLICK HERE TO VIEW EXAM RADIOLOGY REPORT PROCEDURE: VEIN CENTER ENDOVENOUS ABLATION VEIN LEFT LEG COMPARISON: None. INDICATIONS: Pain co-occurrent and due to varicose veins of bilateral legs I83.813 OPERATIVE REPORT: Diagnosis: Superficial venous reflux, incompetent perforating veins Procedure: Endovenous laser ablation of the left object oriented developer(s) Procedure: The patient was positioned supine on [...] MD (more content not included)... Normal [facility] KAL SCREEN, IFA, W/REFL TITE R/PATTERN [...] indicated. For additional information, please refer to http://education.[employer].indico/faq/QVM163 (This link is being provided for informational/ educational purposes only.) Performed By: #### 8 12, 4280, 6598, 24559, %[id number] #### [facility] [address], [address] [place], [place] [address] Project Drilling Engineer: Marek Subramanian MD ANTINUCLEAR ANTIBODIES TITER AND PATTERNon 10-01-2021 KAL PATTERN Nuclear, [employer]rome[employer] Abnormal [facility] Comment on above: Result Comment: Cent romere pattern is associated with limited cutaneous systemic sclerosis, CREST (Calcinosis, Raynaud's, Esophageal dysmotility, Sclerodactyly, Telangiectasia), primary biliary cholangitis (PBC), and other autoimmune diseases. AC-3: [employer] International Consensus on KAL Patterns (https://doi.org/10.1515/cxyj-6416-6726) Performed By: #### 8 09, 8268, 4420, 94409, %21430 #### [facility] [address], [address] [place] [address] Project Drilling Engineer: Marek Subramanian MD KAL PATTERN Nuclear, Homogeneous Abnormal Que [facility] Comment on above: Result Comment: Homo geneous pattern is associated with systemic lupus erythematosus (SLE), drug-induced lupus and juvenile idiopathic arthritis. AC-1: Homogeneous International Consensus on KAL Patterns (https://doi.org/10.1515/wlvt-8640-2423) Performed By: #### 8 09, 8268, 4420, 20443, %47238 #### [facility] [address], [address] [place] [address] Project Drilling Engineer: Marek Subramanian MD KAL TITER > OR = 1:1280 Abnormal [facility] Comment on above: Result Comment: Refe rence Range <1:40 Negative 1:40-1:80 Low Antibody Level >1:80 Elevated Antibody Level Performed By: #### 8 09, 8268, 4420, 52937, %[id number] #### [facility] [address], [address] [place], [place] [address] Project Drilling Engineer: Marek Subramanian MD KAL TITER 1:80 High [facility] Comment on above: Result Comment: A lo w level KAL titer may be present in pre- clinical autoimmune diseases and normal individuals. Reference Range <1:40 Negative 1:40-1:80 Low Antibody Level >1:80 Elevated Antibody Level Performed By: #### 8 09, 8268, 4420, 76126, %91066 #### [facility] [place] [address] Project Drilling Engineer: Marek Subramanian MD C-REACTIVE PROTEINon 021 CRP [Mass/Vol] 13.4 mg/L High <8.0 [facility] Comment on above: Performed By: #### 8 09, 8268, 4420, 23081, %[id number] #### [facility] [address], [address] [place] [address] Project Drilling Engineer: Marek Subramanian MD RHEUMATOID ARTHRITIS DIAGNOS TIC PANEL 1on 10-01-2021 CYCLIC CITRULLINATED PEPTIDE (CCP) AB (IGG) <16 Normal [facility] Comment on above: Result Comment: Refe rence Range Negative: <20 Weak Positive: 20-39 Moderate Positive: 40-59 Strong Positive: >59 Performed By: #### 8 09, 8268, 4420, 05370, %41514 #### [facility] [place] [address] Project Drilling Engineer: Marek Subramanian MD INTERPRETATION Normal [facility] Comment on above: Result Comment: These serologic results may be found in 10-20% of patients with polyarthritis that is clinically and radiologically indistinguishable from RA. Performed By: #### 8 09, 8268, 4420, 37416, %68017 #### [facility] [address] [place] [address] Project Drilling Engineer: Marek Subramanian MD RHEUMATOID FACTOR <14 Normal <14 [facility] Comment on above: Performed By: #### 8 09, 8268, 4420, 51140, %29026 #### [facility] [place] [address] Project Drilling Engineer: Marek Subramanian MD SED RATE BY MODIFIED SILAS RENon 10-01-2021 SED RATE BY MODIFIED WESTERGREN 51 mm/h High < OR = 30 [facility] Comment on above: Performed By: #### 8 09, 8268, 4420, 62291, %60047 #### [facility] [address] [facility], [address] [place] [address] Project Drilling Engineer: Marek Subramanian MD Tobacco Screening.on 021 Fall risk assessment a) No falls within the last year [facility] [employer] 600 DO Work Phone: Tobacco use status [facility] b) No [facility] [employer] DO Work Phone: Vital Signs Date Time Vital Sign Value Performing Clinician Facility 08-28-2024 10:39-0400 Body height 165.1 cm Carmen Lopez MD Work Phone: [facility] 08-28-2024 10:39-0400 Body mass index (BMI) [Ratio] 35.28 kg/m2 Carmen Lopez MD Work Phone: [facility] 08-28-2024 10:39-0400 Body weight 96.16 kg Carmen Lopez MD Work Phone: [facility] 08-28-2024 10:39-0400 Diastolic blood pressure 56 mm[Hg] Carmen Lopez MD Work Phone: [facility] 08-28-2024 10:39-0400 Heart rate 56 /min Carmen Lopez MD Work Phone: [facility] 08-28-2024 10:39-0400 Systolic blood pressure 122 mm[Hg] Carmen Lopez MD Work Phone: [facility] 08-18-2024 10:47-0400 Body height 162.6 cm Connor [employer] Work Phone: [employer] 08-18-2024 10:47-0400 Body mass index (BMI) [Ratio] 36.22 kg/m2 [employer] Work Phone: [employer] 08-18-2024 10:47-0400 Body temperature 97.39 [degF] Connor Tavaresng DO Work Phone: [employer] 08-18-2024 10:47-0400 Body weight 95.71 kg Connor [facility]avaresng DO [facility] 08-18-2024 10:47-0400 Diastolic blood pressure 72 mm[Hg] Connor Lewislong DO [facility] 08-18-2024 10:47-0400 Heart rate 64 /min Connor Tavaresng DO [facility] Phone[facility] 08-18-2024 10:47-0400 Systolic blood pressure 124 mm[Hg] Connor Tavaresng DO Work Phone: [facility] 03-06-2024 09:31-0400 Body height 165.1 cm Nick Richardson MD Work Phone: [facility] 03-06-2024 09:31-0400 Body mass index (BMI) [Ratio] 36.78 kg/m2 Nick Ricahrdson MD Work Phone: [facility] 03-06-2024 09:31-0400 Body weight 100.25 kg Nick Richardson MD Work Phone: [facility] 03-06-2024 09:31-0400 Diastolic blood pressure 58 mm[Hg] Nick Richardson MD Work Phone: [facility] 03-06-2024 09:31-0400 Heart rate 44 /min Nick Richardson MD Work Phone: [facility] 03-06-2024 09:31-0400 Systolic blood pressure 104 mm[Hg] Nick Richardson MD Work Phone: [facility] 12-06-2022 13:27-0500 Body height 165.1 cm Connor Tavaresng Work Phone: [facility] 250 DO Work Phone: 12-06-2022 13:27-0500 Body mass index (BMI) [Ratio] 36.94 kg/m2 Connor Marinelli Furlong Work Phone: [facility] 250 DO Work Phone: 12-06-2022 13:27-0500 Body surface area Derived from formula 2.07 m2 Connor Marinelli Furlong Work Phone: [facility] 250 DO Work Phone: 12-06-2022 13:27-0500 Body weight 100.7 kg Connor Marinelli Furlong Work Phone: [facility] 250 DO Work Phone: 12-06-2022 13:27-0500 Diastolic blood pressure 84 mm[Hg] Connor Marinelli Furlong Work Phone: [facility] 250 DO Work Phone: 12-06-2022 13:27-0500 Heart rate 43 /min Connor Marinelli Furlong Work Phone: [facility] DO Work Phone: 12-06-2022 13:27-0500 Systolic blood pressure 130 mm[Hg] Connor Marinelli Furlong Work Phone: [facility] 250 DO Work Phone: 06-30-2022 11:43-0400 Blood Pressure Location Yehuda HASSAN [facility] 06-30-2022 11:43-0400 Diastolic blood pressure 69 mm[Hg] Yehuda HASSAN [facility] 06-30-2022 11:43-0400 Heart rate 60 /min Yehuda HASSAN [facility] 06-30-2022 11:43-0400 Respiratory rate 16 /min Yehuda HASSAN [facility] 06-30-2022 11:43-0400 Systolic blood pressure 129 mm[Hg] Yehuda HASSAN [facility] 03-22-2022 14:06-0400 Body height 165.1 cm Connor G Furlong Work Phone: [facility] 250 DO Work Phone: 03-22-2022 14:06-0400 Body mass index (BMI) [Ratio] 42.17 kg/m2 Connor G Furlong Work Phone: [facility] 250 DO Work Phone: 03-22-2022 14:06-0400 Body surface area Derived from formula 2.19 m2 Connor G Furlong Work Phone: [facility] 250 DO Work Phone: 03-22-2022 14:06-0400 Body weight 114.94 kg Connor G Furlong Work Phone: [facility] 250 DO Work Phone: 03-22-2022 14:06-0400 Diastolic blood pressure 70 mm[Hg] Connor G Furlong Work Phone: [facility] 250 DO Work Phone: 03-22-2022 14:06-0400 Heart rate 47 /min Connor G Furlong Work Phone: [facility] 250 DO Work Phone: 03-22-2022 14:06-0400 Systolic blood pressure 114 mm[Hg] Connor G Furlong Work Phone: [facility] 250 DO Work Phone: 08-16-2021 14:38-0400 Body height 165.1 cm Connor Marinelli Furlong Work Phone: [facility] [employer] 600 DO Work Phone: 08-16-2021 14:38-0400 Body mass index (BMI) [Ratio] 42.53 kg/m2 Connor G Furlong Work Phone: [facility] [employer] 600 DO Work Phone: 08-16-2021 14:38-0400 Body surface area Derived from formula 2.2 m2 Connor Yves Furlong Work Phone: [facility] [employer] 600 DO Work Phone: 08-16-2021 14:38-0400 Body weight 115.94 kg Connor Marinelli Furlong Work Phone: [facility] [employer] 600 DO Work Phone: 08-16-2021 14:38-0400 Diastolic blood pressure 74 mm[Hg] Connor Marinelli Furlong Work Phone: [facility] [employer] 600 DO Work Phone: 08-16-2021 14:38-0400 Heart rate 44 /min Connor Marinelli Furlong Work Phone: [facility] [employer] 600 DO Work Phone: 08-16-2021 14:38-0400 Systolic blood pressure 134 mm[Hg] Connor G Furlong Work Phone: [facility] [employer] 600 DO Work Phone: Encounters Encounter Date Encounter Type Care Provider Facility Start: 09-28-2024 End: 09-28-2024 Telephone encounter Juju Rueda Call Elza haddad Comment on above: critical EKG Start: 09-11-2024 End: 09-11-2024 ambulatory Yehuda HASSAN Facility:CD:[id number] Start: 09-03-2024 End: 09-03-2024 Orders Only Connor Anaya DO [facility] Start: 09-02-2024 End: 09-02-2024 Bamboo flowsheet Nany HO Work Phone: [facility] Start: 09-02-2024 End: 09-02-2024 Bamboo flowsheet Nany Swanson PA Work Phone: [facility] Start: 09-02-2024 End: 09-04-2024 Telephone encounter Isa Triana CMA [facility] Start: 09-02-2024 End: 09-02-2024 ambulatory NANY SWANSON Not Available Start: 09-02-2024 End: 09-02-2024 Office outpatient visit 25 minutes Nany HO Work Phone: [facility] Comment on above: Arthritis of right k nee (Primary Dx); Acute pain of right knee; Chondromalacia, patella, right Start: 08-28-2024 End: 08-28-2024 Office outpatient visit 25 minutes Carmen Lopez MD Work Phone: [facility] Comment on above: Paroxysmal atrial fi brillation (Multi) (Primary Dx); Non-ischemic cardiomyopathy (Multi); Mixed hyperlipidemia; Sinus bradycardia; High risk medication use; Class 2 obesity; BMI 35.0-35.9,adult; Never smoked tobacco Start: 08-28-2024 End: 08-28-2024 ambulatory [facility] Start: 08-19-2024 End: 08-19-2024 Orders Only Connor Anaya DO Work Phone: [facility] Start: 08-18-2024 End: 08-18-2024 [facility] Start: 08-18-2024 End: 08-18-2024 ambulatory CONNOR LEWISCLEM [facility] Start: 08-18-2024 End: 08-18-2024 Office outpatient visit 25 minutes Connor Anaya DO Work Phone: [facility] Comment on above: Primary hypertension (Primary Dx); Hyperlipidemia, unspecified hyperlipidemia type; Acquired hypothyroidism; Osteoarthritis of multiple joints, unspecified osteoarthritis type; 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 and body mass index (BMI) of 36.0 to 36.9 in adult Start: 07-29-2024 End: 07-29-2024 Lab Drop off Radha X Orzech [facility] Start: 07-29-2024 End: 07-29-2024 ambulatory Radha X Orzech Facility:[facility] Start: 07-29-2024 End: 07-29-2024 Patient encounter procedure Radha X Orzech [facility] Start: 07-15-2024 End: 07-15-2024 ambulatory Radha X Orzech Facility:[facility] Start: 07-01-2024 End: 07-01-2024 ambulatory Radha X Orzech Facility:[facility] Start: 07-01-2024 End: 07-01-2024 Patient encounter procedure Radha X Orzech [facility] Start: 06-10-2024 End: 06-10-2024 ambulatory Radha X Orzech Facility:[facility] [place] Start: 06-10-2024 End: 06-10-2024 Patient encounter procedure Radha X Orzech [facility] Start: 05-20-2024 End: 05-20-2024 ambulatory Radha X Orzech Facility:[facility] [place] Start: 05-20-2024 End: 05-20-2024 Patient encounter procedure Radha X Orzech [facility] Start: 05-16-2024 End: 05-16-2024 ambulatory Yehuda HASSAN Facility:[facility] [place] Start: 05-16-2024 End: 05-16-2024 Patient encounter procedure Yehuda R HASSAN [facility] Start: 03-26-2024 End: 03-26-2024 ambulatory LESVIA KEITA Not Available Start: 03-06-2024 End: 03-06-2024 Office outpatient visit 25 minutes Nick Richardson MD Work Phone: [facility] Comment on above: Mixed hyperlipidemia (Primary Dx); Paroxysmal atrial fibrillation (Multi); Non-ischemic cardiomyopathy (Multi); Never smoked tobacco; BMI 36.0-36.9,adult; Hyperlipidemia, unspecified hyperlipidemia type Start: 03-06-2024 End: 03-06-[facility]24 [facility] Start: 02-18-2024 End: 02-18-2024 ambulatory [facility] Start: 02-18-2024 End: 02-18-2024 ambulatory [facility] Start: 12-24-2023 End: 12-24-2023 [facility] Start: 12-13-2023 End: 12-13-2023 ambulatory Yehuda HASSAN Facility:[facility] [place] Start: 12-13-2023 End: 12-13-2023 Patient encounter procedure Yehuda HASSAN [facility] Start: 10-26-2023 End: 10-26-2023 ambulatory Yehuda HASSAN Facility:[facility] [place] Start: 10-09-2023 End: 10-09-2023 ambulatory DULCE ALCAZAR Facility:[facility] Start: 03-13-[address] WILLARD Looney y:[facility] Start: 03-05-2023 End: 03-06-[address] YEHUDA HASSAN . Facility:[facility] Start: 02-20-2023 End: 02-21-2023 ambulatory DOCTOR CLAYTON Facility:[facility] Start: 12-06-2022 ambulatory Nick Elizabeth lindsey Johnathanoscardanay GOSS Facility: Start: 12-06-2022 Office outpatient vi sit 25 minutes Connor Anaya Work Phone: [facility] 250 DO Work Phone: Start: 11-20-2022 Rx Renewal Connor nj Work Phone: [facility] 250 DO Work Phone: Start: 11-03-2022 End: [...] preprocedural laboratory examination DR LESVIA MCCLAIN [facility] Start: 09-05-2022 End: 09-05-2022 Patient encounter procedure Yehuda HASSAN [facility] Start: 09-01-2022 End: 09-02-[address] CONNOR ANAYA Facility:[facility] Start: 09-01-2022 End: 09-02-2022 Encounter for preprocedural laboratory examination DR CONNRO ANAYA Facility:[facility] Start: 08-31-2022 End: 09-01-[address] CONNOR ANYAA Facility:[facility] Start: 08-22-2022 Rx Renewal Connor nj Work Phone: [facility] 250 DO Work Phone: Start: 08-22-2022 End: 08-23-[address] CONNOR ANAYA Facility:[facility] Start: 08-17-2022 End: 08-18-[address] CONNOR ANAYA Facility:[facility] Start: 08-11-2022 End: 08-11-2022 Lab Drop off DORA ALCAZAR [facility] Start: 08-11-2022 End: 08-11-2022 Patient encounter procedure DORA ALCAZAR [facility] Start: 08-07-2022 End: 08-08-[address] WILLARD SHARMA Facility:[facility] Start: 08-01-2022 End: 08-02-[address] WILLARD SHARMA Facility:[facility] Start: 07-17-2022 End: 07-18-[address] WILLARD SHARMA Facility:[facility] Start: 07-12-2022 End: 07-13-[address] WILLARD SHARMA Facility:[facility] Start: 06-30-2022 End: 07-01-[address] WILLARD SHARMA Facility:[facility] Start: 06-30-2022 End: 06-30-2022 Patient encounter procedure Yehuda HASSAN [facility] Start: 06-26-2022 End: 06-27-[address] [...] sit 25 minutes Connor Anaya Work Phone: [facility] 250 DO Work Phone: Start: 03-22-2022 End: 03-23-[address] WILLARD SHARMA Facility:[facility] Start: 01-31-2022 ambulatory Connor Anaya Facility: Start: 12-07-2021 Rx Renewal Connor Lewislo ng Work Phone: [facility] [employer] 250 DO Work Phone: Start: 08-16-2021 Office outpatient vi sit 15 minutes [facility] Work Phone: Imaging result normal Connor Marinelli F urlong Work Phone: [facility] [employer] 250 DO Work Phone: Patient encounter status Connor Yves Lewislong [facility]: [facility] Work Phone: Procedures Date Procedure Procedure Detail Performing Clinician Start: 09-02-2024 Arthrocentesis aspir &/inj major jt/bursa w/o us Nany HO Work Phone: Start: 09-02-2024 Radiologic [...] MD Work Phone: Start: 09-05-2022 Cystoscopy Yehuda LUPE CORONA Start: 11-30-2020 Cystoscopy Yehuda ROMES Start: 07-14-2020 Cystoscopy Yehudagerry ROMES Start: 07-08-2020 Cystoscopy Yehuda LUPE ROMES Start: 07-17-2019 Extracorporeal shock wave lithotripsy of the bile duct Yehuda HASSAN Comment on above: Right Start: 10-29-2015 Gastric sleeve Yehuda HASSAN Arthroplasty of knee Connor Anaya Work Phone: Colonoscopy Connor Tavaresdanay yves Work Phone: Esophagogastrostomy, antesternal or antethoracic Connor G Furlong Work Phone: H/O: hysterectomy Yehuda CORONA Comment [...] Td Vaccines (6 - Td or Tdap) [employer] Start: 02-20-2033 DTaP/Tdap/Td Vaccine s (3 - Td or Tdap) DTaP/Tdap/Td Vaccines (3 - Td or Tdap) [facility] Start: 12-13-2025 Screening for malignant neoplasm of colon Colon Cancer Screening 5 Year [facility] Comment on above: Postponed from 04/28 (Not Indicated) Start: 08-27-2025 End: 08-27-2025 Patient encounter procedure 08/27/2025 11:20 AM EDT Office Visit [address] [place] [address] Carmen Lopez MD [address] [facility] [address] [place] [address] [facility] Start: 08-18-2025 Adult BMI Screening [facility] Start: 08-18-2025 [facility] Start: 08-18-2025 Fall Risk Screening Fall [facility] Start: 08-18-2025 Tobacco Screening [facility]ening [facility] Start: 08-05-2025 Screening for malignant neoplasm of breast [facility] Start: 03-25-2025 End: 03-25-2025 Patient encounter procedure 03/25/2025 1:00 PM EDT Office Visit [facility] [address] [place] [id number] Jr. Lesvia Mcclain, DO [address] [place] [address] [facility] Start: 02-17-2025 Adult BMI Follow Up Plan Adult BMI Follow Up Plan [facility] Start: 02-16-2025 End: 02-16-2025 Patient encounter procedure 02/16/2025 9:00 AM EDT [facility] [address] [place] [address] Connor Anaya, DO [address], [place] [address] [facility] Start: 11-04-2024 End: 11-04-2024 Patient encounter procedure 11/04/2024 11:00 AM EST Office Visit [facility] [address] [place] [id number] Jr. Lesvia Mcclain, DO [address] [facility] [address] [place] [address] [facility] Start: 08-28-2024 End: 08-28-2024 Patient encounter procedure 08/28/2024 10:40 AM EDT Office Visit [place] [address] [place] [phone] Carmen Lopez MD [address] [facility] [address] [place] [address] [facility] Start: 07-26-2024 Screening for malignant neoplasm of breast Mammogram [facility] Start: 06-29-2024 COVID-19 Vaccine ( season) COVID-19 Vaccine ( season) [facility] Start: 06-29-2024 COVID-19 Vaccine () COVID-19 Vaccine () [facility] Start: 06-29-2024 COVID-19 Vaccine ( season) COVID-19 Vaccine () [facility] Start: 06-29-2024 Influenza vaccination [facility] Start: 06-21-2024 Medicare Annual Wellness Visit Medicare Annual Wellness Visit [facility] Start: 03-01-2024 COVID-19 Vaccine ( season) COVID-19 Vaccine () [facility] Start: 01-29-2024 FUV, Provider: Nick Richardson, Status: Pen, Time: 11:20 AM FUV, Provider: Nick Richardson, Status: Pen, Time: 11:20 AM [facility] 250 DO Work Phone: Start: 12-06-2022 FUV, Provider: Nick Richardson, Status: Pen, Time: 1:10 PM FUV, Provider: Nick Richardson, Status: Pen, Time: 1:10 PM -[facility] 250 DO Work Phone: Start: 01-31-2022 FUV, Provider: Nick Sarkar, Status: Pen, Time: 2:20 PM FUV, Provider: Nick Sarkar, Status: Pen, Time: 2:20 PM -[facility] 250 DO Work Phone: Start: 2010 RSV High Risk: (Elderly (60+) or Population) (1 - Risk 60-74 years 1-dose series) RSV High Risk: (Elderly (60+) or Population) (1 - Risk 60-74 years 1-dose series) [facility] Start: 2010 RSV patient s and/or patients aged 60+ years (1 - 1-dose 60+ series) RSV patients and/or patients aged 60+ years (1 - 1-dose 60+ series) [facility] Start: 1968 Diabetes mellitus screening Diabetes Screening [facility] Start: 1968 Diabetic foot examination Diabetic Foot Exam [facility] Start: 1968 Hepatitis C screening Hepatitis C Sc reening [facility] Start: 1950 Glaucoma screening Diabetic Op hthalmology Exam [facility] Start: 1950 Lipid panel Lipid Panel [facility] Start: 1950 Medicare Annual Wellness Visit Medicare Annual Wellness Visit (AWV) [facility] Start: 1950 Screening for malignant neoplasm of colon [facility] Start: 1950 Screening for osteoporosis Bone Density Scan [facility] Start: 1950 Thyroid stimulating hormone measurement TSH Level [facility] Immunizations Immunization Date Immunization Notes Care Provider Fa ciliroma 11-01-2023 Influenza, High-dose , Quadrivalent Connor Debbiekeylang DO Work Phone: [facility] 11-01-2023 influenza virus vacc ine, unspecified formulation Connor Debbiekeylaclem DO Work Phone: [facility] 02-20-2023 tetanus toxoid, redu mariano diphtheria toxoid, and acellular pertussis vaccine, adsorbed Yehuda HASSAN [facility] 10-15-2022 Fluzone High-Dose Quadrivalent 0.7 ML Intramuscular Suspension Prefilled Syringe Connor Lewiskeylaclem Work Phone: [facility] 250 DO Work Phone: 10-15-2022 influenza virus vacc ine, unspecified formulation Yehuda HASSAN [facility] 10-15-2022 influenza, high dose seasonal, preservative-free Nick Richardson MD Work Phone: [facility] Work Phone: 04-29-2022 Comirnaty 30 MCG/0.3 ML Intramuscular Suspension Connor G Debbiereggie Work Phone: [facility] 250 DO Work Phone: 04-29-2022 COVID-19, mRNA, LNP- S, PF, 100mcg/0.5mL Dose Connor Anaya DO Work Phone: [place] [facility] 04-29-2022 SARS-CoV-2 mRNA (kinxpaptplo-qeov-rukoor e) vaccine Yehuda HASSAN [facility] 09-08-2021 influenza virus vacc ine, unspecified formulation Yehuda HASSAN [facility] 08-29-2021 Fluzone High-Dose Quadrivalent 0.7 ML Intramuscular Suspension Prefilled Syringe Connor Anaya Work Phone: [facility] 250 DO Work Phone: 08-29-2021 influenza virus vacc ine, unspecified formulation Yehuda HASSAN [facility] 08-29-2021 influenza, high dose seasonal, preservative-free Nick Richardson MD Work Phone: [facility] Work Phone: 08-29-2021 Pfizer-BioNTech COVI D-19 Vacc 30 MCG/0.3ML Intramuscular Suspension Connor Anaya Work Phone: [facility] 12-23-2020 Pfizer-BioNTech COVI D-19 Vacc 30 MCG/0.3ML Intramuscular Suspension Connor Anaya Work Phone: [facility] 12-01-2020 Pfizer-BioNTech COVI D-19 Vacc 30 MCG/0.3ML Intramuscular Suspension Connor Anaya Work Phone: [facility] 09-13-2020 pneumococcal polysaccharide vaccine, 23 valent Connor G Furlong Work Phone: [facility] 09-03-2020 influenza virus vacc ine, unspecified formulation Tuebora [facility] 09-03-2020 influenza, high dose seasonal, preservative-free Nick Richardson MD Work Phone: [facility] Work Phone: 09-03-2020 influenza, injectabl e, quadrivalent, contains preservative Connor G Furlong Work Phone: [facility] 600 DO Work Phone: 08-29-2020 influenza virus vacc ine, unspecified formulation Tuebora [facility] 08-29-2020 influenza, high dose seasonal, preservative-free Connor G Furlong Work Phone: [facility] 250 DO Work Phone: 08-29-2020 influenza, injectabl e, quadrivalent, contains preservative Connor Furlong DO Work Phone: [place] [facility] 08-29-2020 pneumococcal polysaccharide vaccine, 23 valent Connor G Furlong Work Phone: [facility] 08-11-2020 influenza virus vacc ine, unspecified formulation Tuebora [facility] 08-11-2020 influenza, seasonal, injectable Connor G Furlong Work Phone: [facility] 600 DO Work Phone: 07-29-2020 influenza virus vacc ine, unspecified formulation Tuebora [facility] 07-29-2020 influenza, seasonal, injectable Connor G Furlong [facility] Work Phone: 09-02-2019 influenza virus vacc ine, unspecified formulation Tuebora [facility] 09-02-2019 influenza, high dose seasonal, preservative-free Connor G Furlong Work Phone: [facility] 600 DO Work Phone: 08-29-2019 influenza virus vacc ine, unspecified formulation Connor G Furlong Work Phone: [facility] 08-29-2019 influenza, seasonal, injectable Connor Furlong DO Work Phone: [place] [facility] 08-11-2019 influenza virus vacc ine, unspecified formulation Yehuda HASSAN [facility] 06-17-2019 zoster vaccine recombinant Connor G Furlong Work Phone: [facility] 05-29-2019 zoster vaccine recombinant Connor G Furlong Work Phone: [facility] 04-15-2019 zoster vaccine recombinant Connor G Furlong Work Phone: [facility] 03-29-2019 zoster vaccine recombinant Connor G Furlong Work Phone: [facility] 08-29-2018 influenza virus vacc ine, unspecified formulation Connor G Furlong Work Phone: [facility] 250 DO Work Phone: 09-27-2017 influenza virus vacc ine, unspecified formulation Yehuda [employer] [facility] 09-27-2017 Influenza, injectabl e, Madin Ese Canine Kidney, preservative free, quadrivalent Connor G Furlong Work Phone: [facility] 600 DO Work Phone: 09-26-2017 influenza virus vacc ine, unspecified formulation Connor G Furlong Work Phone: [facility] 250 DO Work Phone: 10-19-2016 influenza virus vacc ine, unspecified formulation Yehuda HASSAN [facility] 10-19-2016 seasonal influenza, intradermal, preservative free Connor G Furlong Work Phone: [facility] 600 DO Work Phone: 10-06-2016 influenza virus vacc ine, unspecified formulation Yehuda HASSAN [facility] 10-06-2016 influenza, seasonal, injectable, preservative free Connor G Furlong Work Phone: [facility] 600 DO Work Phone: 04-10-2016 pneumococcal conjuga te vaccine, 13 valent Connor G Furlong Work Phone: [facility] 04-06-2016 pneumococcal conjuga te vaccine, 13 valent Yehuda HASSAN [facility] 08-07-2014 influenza virus vacc ine, unspecified formulation Connor G Furlong Work Phone: [facility] 250 DO Work Phone: 08-07-2014 Influenza, High-dose , Quadrivalent Connor Furlong DO Work Phone: [facility] 08-07-2014 influenza, unspecifi ed formulation Yehuda HASSAN [facility] 07-29-2014 influenza virus vacc ine, unspecified formulation Connor Lewislong Work Phone: [facility] 250 DO Work Phone: 07-29-2014 pneumococcal polysaccharide vaccine, 23 valent Connor Lewislong Work Phone: [facility] 10-02-2013 pneumococcal conjuga te vaccine, 13 valent Connor Lewislong Work Phone: [facility] 02-14-2013 zoster vaccine, live Connor Lewisng Work Phone: [facility] 10-29-2012 influenza virus vacc ine, unspecified formulation Connor Lewislong Work Phone: [place] [address] DO Work Phone: 10-29-2012 pneumococcal polysaccharide vaccine, 23 valent Connor Lewislong Work Phone: [place] [address] DO Work Phone: 10-29-2010 pneumococcal polysaccharide vaccine, 23 valent Nick Richardson MD Work Phone: [facility] Work Phone: 02-21-2010 pneumococcal polysaccharide vaccine, 23 valent Connor Lewislong Work Phone: [facility] 02-21-2010 tetanus toxoid, redu mariano diphtheria toxoid, and acellular pertussis vaccine, adsorbed Connor Lewislong Work Phone: [facility] 12-20-2009 novel influenza-H1N1 -09, preservative-free, injectable Connor Lewislong Work Phone: [facility] 600 DO Work Phone: 11-29-2009 novel influenza-H1N1 -09, preservative-free, injectable Connor Anaya Work Phone: [facility] 250 DO Work Phone: 09-06-1999 TD(adult) unspecifie d formulation; Translations: [Td(adult) unspecified formulation] Connor Anaya Work Phone: [facility] 09-06-1999 tetanus and diphther ia toxoids, adsorbed, preservative free, for adult use (2 Lf of tetanus toxoid and 2 Lf of diphtheria toxoid) Connor Anaya DO Work Phone: [facility] influenza virus vacc ine, unspecified formulation Connor Anaya Work Phone: [facility] 250 DO Work Phone: Comment on above: 2010Jul 2012 pneumococcal polysaccharide vaccine, 23 valent Connor Anaya Work Phone: [facility] 250 DO Work Phone: Comment on above: 2010 Payers Date Payer Category Payer Private Health Insurance [facility] [place] [id number] 5 2015 Managed Care Other (unspecified) [facility] [id number] 2015 Medicare [id number] .[id number] 2015 Miscellaneous or Other [facility] [id number] .[id number] 5 2015 Unknown 2015 Unknown [id number] 1959 Medicare [id number] 1959 Unknown [id number] 1950 Unknown [id number] 2.16.840.1.312489.3.579 .2.356 1950 Unknown [id number] 2.16.840.1.702182.3.579 .2.356 1950 Unknown [id number] 2.16.840.1.498743.3.579 .2.356 1950 Unknown [id number] 2.16.840.1.381991.3.579 .2.593 1950 Unknown [id number] 2.16.840.1.271878.3.579 .2.593 1950 Unknown [id number] 2.16.840.1.759206.3.579 .2.593 1950 Unknown [id number] 2.16.840.1.980087.3.579 .2.593 1950 Unknown [id number] 2.16.840.1.626746.3.579 .2.593 1950 Unknown [id number] 2.16.840.1.368220.3.579 .2.593 1950 Unknown [id number] 2.16.840.1.633112.3.579 .2.593 1950 Unknown [id number] 2.16.840.1.664828.3.579 .2 1950 Unknown [id number] 2.16.840.1.576023.3.579 .2.593 1950 Unknown [id number] 2.16.840.1.185943.3.579 .259 1950 Unknown [id number] 2.16.840.1.627652.3.579 .2. 1950 Unknown [id number] 2.16.840.1.224328.3.579 .23 1950 Unknown [id number] 2.16.840.1.770790.3.579 .2.593 1950 Unknown [id number] 2.16.840.1.089333.3.579 .2.593 1950 Unknown [id number] 2.16.840.1.527879.3.579 .2.593 1950 Unknown [id number] 2.16.840.1.913148.3.579 .2.593 1950 Unknown [id number] 2.16.840.1.903145.3.579 .2.593 1950 Unknown [id number] 2.16.840.1.149539.3.579 .2.593 1950 Unknown [id number] 2.16.840.1.949365.3.579 .2.593 1950 Unknown [id number] 2.16.840.1.195252.3.579 .2.593 1950 Unknown [id number] 2.16.840.1.103875.3.579 .2.593 1950 Unknown [id number] 2.16.840.1.292334.3.579 .2.593 1950 Unknown [id number] 2.16.840.1.418001.3.579 .2.593 1950 Unknown [id number] 2.16.840.1.186744.3.579 .2.593 1950 Unknown [id number] 2.16.840.1.471057.3.579 .2.593 1950 Unknown [id number] 2.16.840.1.362336.3.579 .2.593 1950 Unknown [id number] 2.16.840.1.772082.3.579 .2.593 1950 Unknown [id number] 2.16.840.1.948115.3.579 .2.593 1950 Unknown [id number] 2.16.840.1.958329.3.579 .2.593 1950 Unknown [id number] 2.16.840.1.448083.3.579 .2.593 1950 Unknown [id number] 2.16.840.1.928336.3.579 .2.593 1950 Unknown [id number] 2.16.840.1.708819.3.579 .2.593 1950 Unknown [id number] 2.16.840.1.923822.3.579 .2.593 1950 Unknown [id number] 2.16.840.1.211564.3.579 .2.593 1950 Unknown [id number] 2.16.840.1.680601.3.579 .2.593 1950 Unknown [id number] 2.16.840.1.219192.3.579 .2.727 1950 Unknown [id number] 2.16.840.1.855033.3.579 .2.727 1950 Unknown [id number] 2.16.840.1.156494.3.579 .2.72 1950 Unknown [id number] 2.16.840.1.476786.3.579 .2.72 1950 Unknown [id number] 2.16.840.1.480554.3.579 .2.727 1950 Unknown [id number] 2.16.840.1.683452.3.579 .2.72 1950 Unknown [id number] 2.16.840.1.345112.3.579 .2.72 1950 Unknown [id number] 2.16.840.1.023832.3.579 .2. 1950 Unknown [id number] 2.16.840.1.754118.3.579 .2. 1950 Unknown [id number] 2.16.840.1.583437.3.579 .2.128 1950 Unknown [id number] 2.16.840.1.966873.3.579 .2.128 1950 Unknown [id number] 2.16.840.1.547900.3.579 .2.128 1950 Unknown [id number] 2.16.840.1.778546.3.579 .2.1285 1950 Unknown [id number] 2.16.840.1.136464.3.579 .2.1259 1950 Unknown [id number] 2.16.840.1.482342.3.579 .2.1259 1950 Unknown [id number] 2.16.840.1.214075.3.579 .2.1259 1950 Unknown [id number] 2.16.840.1.064970.3.579 .2.1259 1950 Unknown [id number] 2.16.840.1.162716.3.579 .2.727 1950 Unknown [id number] 2.16.840.1.844622.3.579 .2.727 1950 Unknown [id number] 2.16.840.1.450970.3.579 .2.727 1950 Unknown [id number] 2.16.840.1.241366.3.579 .2.1244 1950 Unknown [id number] 2.16.840.1.757435.3.579 .2.1244 1950 Unknown [id number] 2.16.840.1.889475.3.579 .2.1244 Social History Date Type Detail Facility Start: 02-20-2023 End: 03-06-2024 Never a smoker Never a smoker [facility] 600 DO Work Phone: Start: 12-28-2021 End: 11-13-2022 Tobacco smoking status Never smoked tobacco (finding) [facility] Tobacco smoking status Never [facility] Start: 02-20-2023 End: 03-06-2024 Sex Assigned At Female [facility] Start: 11-13-2022 End: 08-17-2023 Tobacco use and exposure Smokeless tobacco non-user [facility] Work Phone: Start: 03-06-2024 Alcoholic beverage intake Life time non-drinker (finding) [facility] Work Phone: Start: 1950 Sex assigned at Not on file [facility] Work Phone: Start: 02-25-2024 End: 08-28-2024 Exposure to SARS-CoV-2 (event) Not sure [facility] Start: 08-18-2024 Alcoholic beverage intake Ex-drinker (finding) [facility] Do you belong to any clubs or organizations such as anglican groups, [employer], [employer] or athletic groups, or school groups? No [facility] Are you now , , , , never or living with a partner? [facility] How often to you hav e a drink containing alcohol? Never [facility] Do you feel stress - tense, restless, nervous, or anxious, or unable to sleep at night because your mind is troubled all the time - these days [OSQ] Only a little [facility] Start: 06-02-2015 Sex Female (finding) [facility] Functional Status Date Assessment Result Facility 08-24-2022 Functional Status N/A [facility] 06-30-2022 Functional Status N/A [facility] Clinical Notes 06-30-2022 to 09-28-2024 Telephone Encounter - Juju Van - 09/28/2024 8:45 PM ESTTelephone Encounter - Juju Van - 09/28/2024 8:45 PM ESTTelephone Encounter - Juju Van - 09/28/2024 8:45 PM EST Note Date & Type Note Facility 09-28-2024 Miscellaneous Notes Contract: [facility] Suki travis critical EKG report Relayed info to Dr Anaya on cell and transferred documented in this encounter [facility] 09-28-2024 Telephone encounter Note Contract: [facility] Suki travis critical EKG report [facility] 09-28-2024 Telephone encounter Note Relayed info to Dr Anaya on cell and transferred [facility] 09-03-2024 History of Present illness Narrative Patient has severe OA of the knee. Handicap parking placard printed documented in this encounter [facility] 09-02-2024 History of Present illness Narrative [...] KNEE TODAY EPIC 09/02/24 [facility]RAYS 03/26/24 [facility] NO MRI NO MDP / PREDNISONE [...] SILVER ADULT 50+ PO) as directed Orally Bronx-3 Fatty Acids (OMEGA-3 FISH OIL PO) Oral [...] Use: Not At Risk (02/20/2023) Received from [employer], [employer] Frequency of Alcohol Consumption: Never Average [...] requiring urgent evaluation. documented in this encounter [facility] 09-02-2024 Miscellaneous Notes Patient called to renew her handicap placard. 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 Okay, it is ready documented in this encounter [facility] 09-02-2024 Telephone encounter Note Patient called to renew her handicap placard. 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 [facility] 09-02-2024 Telephone encounter Note Okay, it is ready [facility] [employer] [facility] 08-28-2024 History of Present illness Narrative Subjective Miky Fuentes is a 74 y.o. 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 documented in this encounter [facility] Work Phone: 08-28-2024 Instructions Hollie Gleason LPN [...] up 7 months documented in this encounter [facility] Work Phone: 08-18-2024 History of Present illness [...] gradually lost weight documented in this encounter [facility] 07-29-2024 Evaluation + Plan note Diagnostic Tests PendingUroVysion Fish and Urine Cyto ([facility]) 07/29/24 [facility] 07-15-2024 Note Patient Education Urology Kidney Stones [...] these instructions at home: Medicines ? Take phgw-fkq-qpciabb and prescription medicines only as told by [...] provider. Document Revised: 06/08/2023 Document Reviewed: 06/08/2023 [employer] Patient Education ? 2023 [employer] Hematuria, Adult Hematuria is blood in [...] identify the cause (more content not included)... [facility] 03-06-2024 History of Present illness Narrative [place] [...] once daily., Disp: 90 tablet, Rfl: 3 dawpkvwv-jrt-vfmq-FA-vit K-lut (Centrum Silver Women) 8 mg iron-400 mcg-50 mcg tablet, Take 1 tablet by mouth once daily., Disp: , Rfl: omega-3 fatty acids-fish oil (One-Per-Day Bronx-3) 684-1,200 mg capsule, Take 1 capsule (1,200 [...] By signing my name below, I, Kimberley HOLDER , Scribe attest that this documentation has been [...] discussion and plan. documented in this encounter [facility] Work Phone: 03-06-2024 Instructions Ivett Mcpherson LPN [...] of your visit. documented in this encounter [facility] Work Phone: 09-05-2022 Hospital Discharge instructions Patient [...] Address: [facility] [address] [place] [address]- Business (1) When:03/05/2023 12:06:31 [facility] 06-30-2022 Hospital Discharge instructions Patient Education 06/30/2022 12:01:44 Kidney Stones, Clex-sz-Ckge Kidney Stones Kidney stones are rock-like masses [...] Follow these instructions at home: Medicines Take ojjd-qgs-fcgjsni and prescription medicines only as told by [...] 04/02/2009 Document Revised: 03/02/2020 Document Reviewed: 03/02/2020 [employer] Patient Education 2020 [employer]. Follow Up Care 12/28/2021 15:15:51 With:Yehuda HASSAN MD, URL Address: [address] [place], [place] [id number]- When: Unknown [facility] Evaluation + Plan note Future Appointments Appointment Date:03/02/2023 11:00:00 AM Scheduled Provider:Yehuda HASSAN MD Location:[facility] Appointment Type:URO Office Visit [facility] Evaluation + Plan note Future Appointments Appointment Date:03/02/2023 11:00:00 AM Scheduled Provider:Yehuda HASSAN MD Location:[facility] Appointment Type:URO Office Visit Diagnostic Tests PendingUrine Culture 08/11/22 [facility] Evaluation + Plan note Future Appointments Appointment Date:03/02/2023 11:00:00 AM Scheduled Provider:Yeuhda HASSAN MD Location:[facility] Appointment Type:URO Office Visit Diagnostic Tests PendingUroVysion Fish and Urine Cyto ([facility]) 09/05/22 [facility] Evaluation + Plan note Future Appointments Appointment Date:05/16/2024 10:45:00 AM Scheduled Provider:Yehuda HASSAN MD Location:[facility] Appointment Type:URO Office Visit [facility] Evaluation + Plan note Future Appointments Appointment Date:05/20/2024 11:00:00 AM Scheduled Provider:RAAD Back APRN Radha X Location:[facility] Appointment Type:URO Office Visit [facility] Evaluation + Plan note Future Appointments Appointment Date:06/10/2024 03:00:00 PM Scheduled Provider:RAAD Back APRN Radha X Location:[facility] Appointment Type:URO Office Visit [facility] Evaluation + Plan note Future Appointments Appointment Date:07/01/2024 02:30:00 PM Scheduled Provider:RAAD Back APRN Radha X Location:[facility] Appointment Type:URO Office Visit [facility] Evaluation note Diagnosis Mixed hyperlipidemia- Primary Paroxysmal atrial fibrillation (Multi) Atrial fibrillation Non-ischemic cardiomyopathy (Multi) Other primary cardiomyopathies Never smoked tobacco BMI 36.0-36.9,adult Hyperlipidemia, unspecified hyperlipidemia type documented in this encounter [facility] Work Phone: Evaluation note* Diagnosis Primary hypertension- Primary Unspecified essential hypertension Hyperlipidemia, unspecified hyperlipidemia type Acquired hypothyroidism Unspecified hypothyroidism Osteoarthritis of multiple joints, unspecified osteoarthritis type 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 and body mass index (BMI) of 36.0 to 36.9 in adult documented in this encounter [facility] SystemEvaluation note* Diagnosis Paroxysmal atrial fibrillation (Multi)- Primary Atrial fibrillation Non-ischemic cardiomyopathy (Multi) Other primary cardiomyopathies Mixed hyperlipidemia Sinus bradycardia Other specified cardiac dysrhythmias High risk medication use Class 2 obesity BMI 35.0-35.9,adult Never smoked tobacco documented in this encounter [facility] Work Phone: Evaluation note* Diagnosis Arthritis of right knee- Primary Acute pain of right knee Chondromalacia, patella, right [facility] NarrativePatient returns in follow-up of problems as noted. In the interim she is done well. She has none ofthe symptoms of cardiomyopathy that preceded her original diagnosis of heart failure. With guideline directed therapy in the yazidi of maintenance of sinus rhythm her symptoms [...] and weight loss. [facility] [employer] DO Work Phone: History of Present illness [...] and weight loss. [facility] [email or web address] 250 DO Work Phone: Hospital course Narrative No data available for this section [facility] Hospital Discharge instructions No data available for this section [facility] InstructionsNot on filedocumented in this encounter [facility] filedocumented in this [facility]ructionsNot on filedocumented in this encounter [facility]ructionsNot on filedocumented in this encounter [facility] No data available for this section [facility] Chief Complaint * I am doing ok [...] a 9 month follow-up of. Family History Unknown Family Member Name Dates Details Family [...] ECG 12 Lead Nick Richardson MD [address] [facility], [place] [address] [place] [id number] Referral ID Status Reason Start Date Expiration Date V isits Requested Visits Authorized [id number] Authorized 03/06/2024 03/06/2025 1 1 Specialty Diagnoses / Procedures Referred By Isa t Referred To Contact Cardiology Diagnoses Non-ischemic cardiomyopathy (Multi) Procedures Follow Up In Cardiology Nick Richardson MD [facility] [facility] [address], [address] [address] Carmen Lopez MD [facility] [facility], [facility] [address] [place] [address] Referral ID Status Reason Start Date Expiration Date V isits Requested Visits Authorized [id number] Authorized 03/06/2024 03/06/2025 1 1 Additional Source Comments INFORMATION SOURCE (unrecogn ized section and content) DATE CREATED AUTHOR 06/26/2022 [facility] DATE CREATED AUTHOR AUTHOR'S ORGANIZ ATION 12/07/2022 [facility] DATE CREATED AUTHOR AUTHOR'S ORGANIZ ATION 12/07/2022 [employer] DATE CREATED AUTHOR AUTHOR'S ORGANIZ ATION 03/09/2023 [facility] DATE CREATED AUTHOR AUTHOR'S ORGANIZ ATION 07/17/2024 [facility] DATE CREATED AUTHOR AUTHOR'S ORGANIZ ATION 08/07/2024 [facility] DATE CREATED AUTHOR AUTHOR'S ORGANIZ ATION [facility]20[facility] DATE CREATED AUTHOR AUTHOR'S ORGANIZ ATION 08/20/2024 [facility] DATE CREATED AUTHOR AUTHOR'S ORGANIZ ATION 09/08/2024 [facility] EPIC DATE CREATED AUTHOR AUTHOR'S ORGANIZ ATION 09/19/2024 [facility] DATE CREATED AUTHOR AUTHOR'S ORGANIZ ATION 09/25/[address] [facility] [address] Worker Team (unrecognized sect ion and content) Level Vial Sealer Relationship Specialty Start Date End Date Connor Anaya DO [address] [facility] [place] [address] PCP - General 10/29/19 Level Vial Sealer Relationship Specialty Start Date End Date Jaclyn Connor Yves [address], [place] [address] PCP - General Family Medicine 11/13/22 Desiree Jansen [facility] Nurse - [employer] 07/01/24 Level Vial Sealer Relationship Specialty Start Date End Date Jaclyn Connor YvesDO [address], [place] [address] PCP - General Family Medicine 11/13/22 Desiree Jansen [facility] Nurse - [employer] 07/01/24 Level Vial Sealer Relationship Specialty Start Date End Date Connor Anaya DO [address], [place] [address] PCP - General Family Medicine 11/13/22 Desiree Jansen [facility] Nurse - [employer] 07/01/24 Level Vial Sealer Relationship Specialty Start Date End Date Connor Anayacarmen PCP - General 10/29/19 Level Vial Sealer Relationship Specialty Start Date End Date Connor Anaya MD [address], [place] [address] PCP - General Family Medicine 03/26/24 Level Vial Sealer Relationship Specialty Start Date End Date Connor Anaya MD [address], [place] [address] PCP - General Family Medicine 03/26/24 Level Vial Sealer Relationship Specialty Start Date End Date Connor Anaya DO [address], [place] [address] PCP - General Family Medicine 11/13/22 Desiree Jansen [facility] Nurse - [employer] 07/01/24 Reason for Visit (unrecogniz ed section and content) Reason Comments Follow-up 2mo Specialty Diagnoses / Procedures Referred By Contac t Referred To Contact Cardiology Diagnoses Paroxysmal atrial fibrillation (Multi) Procedures Follow Up In Cardiology Nick Richardson MD [address] [facility], [address] [address] Referral ID Status Reason Start Date Expiration Date V isits Requested Visits Authorized [id number] Authorized 12/24/2023 12/23/2024 1 1 Reason Comments Follow-up Reason Comments Follow-up 5m Specialty Diagnoses / Procedures Referred By Contac t Referred To Contact Cardiology Diagnoses Non-ischemic cardiomyopathy (Multi) Procedures Follow Up In Cardiology Nick Richardson MD Ibrahim, Hassan M, MD [address] [facility], [facility] [address] [place] [address] Phone: tel: fax: Referral ID Status Reason Start Date Expiration Date V isits Requested Visits Authorized [id number] Authorized 03/06/2024 03/06/2025 1 1 Reason Comments Pain Reason Onset Date Comments critical EKG 09/28/2024 FOR RECORDS PERTAINING TO PATIENTS WHO ARE [...] BE BASED ON THE PRIMARY CLINICAL RECORDS. [employer] [facility]. provides no warranty or guarantee of the accuracy or completeness of information in this document.
--- NOTE | 2024-09-28 22:09 | XR_ITS ---
The [address] [address] Patient Name: MIKY NOLEN MRN: [id number] date: 1950 Sex: F Assigned Patient Location: ER Current Patient Location: ER Accession/Order Number: [id number] Exam Date: 09/28/2024 22:20 Report Date: 09/28/2024 23:28 At the request of: SAPNA WHITE Procedure: XR chest 1V EXAM CXR HISTORY: Shortness of breath. COMPARISON: None. TECHNIQUE: 1 view of the chest submitted for review. FINDINGS: Lines and tubes: None Lungs are hyperaerated. No acute infiltrate. No effusion. The cardiac silhouette measures within normal. Pulmonary vascularity is unremarkable. Osseous structures are normal for age. XR/XR chest 1V IMPRESSION: Hyperexpanded lungs. Please correlate for COPD. Electronically authenticated by: NAT HERNANDEZ Date: 09/28/2024 23:28
--- NOTE | 2024-09-28 22:09 | ECG_ITS ---
The [facility] Test Date: 2024-09-28 Pat Name: MIKY NOLEN Department: Room: - Gender: Female [employer]: : 1950 Requested By: CORNEL ANAYA Order Number: [id number] Reading MD: FRANCINE CRAWLEY Measurements Intervals Elrama Rate: 67 P: 46 MD: 190 QRS: 19 QRSD: 102 T: 50 QT: 390 QTc: 406 Interpretive Statements 1100 Sinus rhythm 1570 with occasional ventricular premature complexes 4068 Nonspecific Twave abnormality 9140 abnormal rhythm ECG Electronically Signed On 09-29-2024 6:55:48 EST by FRANCINE CRAWLEY
[2024-09-28 22:35] LABS: Basophils Absolute Auto 0.1 10^3/uL (0.0-0.1); Basophils Percent Auto 0.9 % (0.2-2.0); Eosinophils Absolute Auto 0.3 10^3/uL (0.0-0.7); Eosinophils Percent Auto 4.4 % (0.9-7.0); Hematocrit 29.3 % (36.0-48.0); Hemoglobin 9.4 g/dL (12.0-16.0); Immature Granulocytes Abs Auto 0.02 10^3/uL (0.00-0.03); Immature Granulocytes Pct Auto 0.4 % (0.0-0.5); Lymphocytes Absolute Auto 1.6 10^3/uL (1.2-3.8); Lymphocytes Percent Auto 27.9 % (20.5-60.0); Mean Corpuscular HGB Conc 32.1 g/dL (29.9-35.2); Mean Corpuscular Hemoglobin 28.5 pg (26.7-34.0); Mean Corpuscular Volume 88.8 fL (81.0-99.0); Mean Platelet Volume 9.2 fL (9.5-13.5); Monocytes Absolute Auto 0.5 10^3/uL (0.3-0.8); Monocytes Percent Auto 8.1 % (1.7-12.0); Neutrophils Absolute Auto 3.3 10^3/uL (1.4-6.5); Neutrophils Percent Auto 58.3 % (43.0-75.0); Platelet Count 264 10^3/uL (150-450); Red Cell Distribution Width 13.9 % (11.0-15.0); White Blood Count 5.7 10^3/uL (4.0-11.0)
--- NOTE | 2024-09-28 22:56 | PC.NURSE ---
Patient was sent to ED by PCP after her 30 day holter monitor alerted him that she had a 16 beat run of Vtach. The holter was applied at this hospital after the patient had an cardiac event during surgery, the family is unsure what the event was. Patient used to see a striper at [facility] but that provider has retired and she does not have another one at this time. Patient reports that there were no symptoms experienced at this time the monitor recorded the vtach.
[2024-09-28 23:04] LABS: Anion Gap 14.1; BUN Creatinine Ratio 15.5; Calcium 9.8 mg/dL (8.5-10.1); Carbon Dioxide 25.8 mmol/L (21.0-32.0); Chloride 106 mmol/L (98-107); Estimated GFR (African America 49 (>=60 mL/min/1.73m^2); Estimated GFR (Non-African Ame 40 (>=60 mL/min/1.73m^2); Glucose 116 mg/dL (74-106); Potassium 3.9 mmol/L (3.5-5.1); Sodium 142 mmol/L (136-145); Troponin I High Sensitivity 19.2 pg/mL (4.0-51.3)
[2024-09-28 23:08] LABS: Magnesium 2.1 mg/dL (1.8-2.4)
[2024-09-28 23:52] VITALS: BP 150/68; PULSE 62; TEMP 36.4; O2SAT 97
[2024-09-28] MEDS: 0.9 % SODIUM CHLORIDE 500 ML IV (23:55)
--- NOTE | 2024-09-28 23:58 | ED_ITS ---
HPI HPI - General Adult General Chief complaint: Arrhythmia/Palpitations Stated complaint: PCP ADVISED PT TO COME TO THE ED FOR HEART MONITOR Time Seen by Provider: 09/28/24 22:06 Source: patient Mode of arrival: walk-in Limitations: no limitations History of Present Illness HPI narrative: 74-year-old female to the emergency department chief complaint of arrhythmia. Patient is currently wearing a Holter monitor. She reports that she was called by her doctor's office today as it was reported to them that she had a 14 beat run of ventricular tachycardia that was nonsustained. She was asymptomatic. She believes she was doing some chores while this occurred. She denies any chest pain, shortness of breath, palpitations. She is otherwise been at her baseline health. The Holter monitor was applied after an arrhythmia occurred while having a lithotripsy.She reports a history of atrial fibrillation currently only on Xarelto. Related Data Home Medications ?Medication ?Instructions ?Recorded ?Confirmed acetaminophen 650 mg 650 mg PO Q12H PRN pain 07/28/24 09/11/24 tablet,extended release (Tylenol Arthritis Pain) allopurinol 300 mg tablet 300 mg PO DAILY 07/28/24 09/11/24 calcium 600 mg-D3 800 unit-mag11 1 tab PO DAILY 07/28/24 09/11/24 50 ed-iwuu-wpetuu-octavia-s.borat tablet (Caltrate 600-D Plus Minerals) cholecalciferol (vitamin D3) 25 25 mcg PO DAILY 07/28/24 09/11/24 mcg (1,000 unit) capsule dronedarone 400 mg tablet (Multaq) 400 mg PO DAILY PRN palpitations 07/28/24 fexofenadine 180 mg tablet 180 mg PO DAILY 07/28/24 09/11/24 ([facility]) glucosam 750 mg-chondroi 100 1 tab PO DAILY 07/28/24 09/11/24 mg-hyalur 1.65 mg-CF borate 108 mg tablet ([facility]) krill 1 cap PO DAILY 07/28/24 09/11/24 hte-pq0-nja-kot-aj3-rco-astax 1,500 mg-165 mg-67.5 mg capsule (Krill Oil ([place] 3 and 6)) levothyroxine 125 mcg tablet 125 mcg PO DAILY 07/28/24 09/11/24 lisinopril 2.5 mg tablet 2.5 mg PO DAILY 07/28/24 09/11/24 lovastatin 10 mg tablet 10 mg PO DAILY 07/28/24 09/11/24 rmgcbaxo-zuwh-uefi 8 mg-folic 400 1 tab PO DAILY 07/28/24 09/11/24 mcg-K 50 mcg-lutein 300 mcg tablet ([facility]) potassium bicarbonate-citric acid 25 meq PO DAILY 07/28/24 09/11/24 25 mEq effervescent tablet (Effer-K) rivaroxaban 20 mg tablet (Xarelto) 20 mg PO Q24H 07/28/24 09/11/24 Previous Rx's ?Medication ?Instructions ?Recorded cephalexin 500 mg capsule 500 mg PO BID 7 days #14 caps 09/11/24 mirabegron 50 mg tablet,extended 50 mg PO DAILY #20 tabs 09/11/24 release 24 hr (Myrbetriq) Allergies Allergy/AdvReac Type Severity Reaction Status Date / Time ciprofloxacin (From Cipro) Allergy Rash Verified 09/28/24 22:06 corn Allergy Unknown Verified 09/28/24 22:06 Sulfa (Sulfonamide Allergy Rash Verified 09/28/24 22:06 Antibiotics) Opioid HPI Opioid Management Most Recent Opioid Data: Last ORT Total Score 0 09/11/24 11:05 09/11/24 Last ORT Risk Category Low Risk 09/11/24 11:05 09/11/24 Review of Systems ROS Status of ROS 10 or more systems reviewed and unremark able except as noted in history and below [facility] Medical History (Updated 09/29/24 @ 00:01 by Kal Limon MD) Bradycardia ?R00.1 - Bradycardia, unspecified (ICD-10) Afib ?I48.91 - Unspecified atrial fibrillation (ICD-10) Arthritis ?M19.90 - Unspecified osteoarthritis, unspecified site (ICD-10) Palpitations ?R00.2 - Palpitations (ICD-10) Extremity edema ?R60.0 - Localized edema (ICD-10) Chronic kidney disease ?N18.9 - Chronic kidney disease, unspecified (ICD-10) Encounter for gastric sleeve procedure ?Z76.89 - Persons encountering health services in other specified circumstances (ICD-10) S/P extracorporeal shock wave therapy ?Z98.890 - Other specified postprocedural states (ICD-10) UTI (urinary tract infection) ?N39.0 - Urinary tract infection, site not specified (ICD-10) Urinary urgency ?R39.15 - Urgency of urination (ICD-10) Urinary frequency ?R35.0 - Frequency of micturition (ICD-10) Hydronephrosis ?N13.30 - Unspecified hydronephrosis (ICD-10) Ureteral stone ?N20.1 - Calculus of ureter (ICD-10) Stress incontinence ?N39.3 - Stress incontinence (female) (male) (ICD-10) Nocturia ?R35.1 - Nocturia (ICD-10) Hypothyroidism (acquired) ?E03.9 - Hypothyroidism, unspecified (ICD-10) Hypertension ?I10 - Essential (primary) hypertension (ICD-10) Enterobacter sepsis ?A41.59 - Other Gram-negative sepsis (ICD-10) Diabetes ?E11.9 - Type 2 diabetes mellitus without complications (ICD-10) Cholelithiasis ?K80.20 - Calculus of gallbladder without cholecystitis without obstruction (ICD-10) Anticoagulated ?Z79.01 - surface supply breathing apparatus (current) use of anticoagulants (ICD-10) Hyperlipidemia ?E78.5 - Hyperlipidemia, unspecified (ICD-10) Nonischemic cardiomyopathy ?I42.8 - Other cardiomyopathies (ICD-10) Mixed hyperlipidemia ?E78.2 - Mixed hyperlipidemia (ICD-10) Paroxysmal atrial fibrillation ?I48.0 - Paroxysmal atrial fibrillation (ICD-10) Hematuria ?R31.9 - Hematuria, unspecified (ICD-10) Kidney stones ?N20.0 - Calculus of kidney (ICD-10) Surgical History (Updated 07/28/24 @ 14:17 by Nancy Sanders NP) History of colonoscopy ?Z98.890 - Other specified postprocedural states (ICD-10) S/P ureteral stent placement ?Z96.0 - Presence of urogenital implants (ICD-10) History of hernia repair ?Z98.890 - Other specified postprocedural states (ICD-10) ?Z87.19 - Personal history of other diseases of the digestive system (ICD-10) History of hysterectomy ?Z90.710 - Acquired absence of both cervix and uterus (ICD-10) H/O cystoscopy ?Z98.890 - Other specified postprocedural states (ICD-10) Family History (Updated 07/28/24 @ 13:53 by Nancy Sanders NP) Other Family history of cancer Family history of diabetes mellitus Family history of myocardial infarction Social History (Updated 07/28/24 @ 14:12 by Nancy Sanders NP) Within the past year, how often did you have a drink containing alcohol: never Score interpretation: A score less than 3 is consistent with normal alcohol consumption. Smoking status: Never smoker Non-prescribed substance use: denies use Highest level of school completed/degree received: high school graduate Little interest or pleasure in doing things: not at all Feeling down, depressed, or hopeless: not at all Exam Narrative Exam Narrative: VITALS: I have reviewed the triage vital signs. GENERAL: Well developed, well appearing adult in no acute distress. NEURO: Alert and oriented. Moves all extremities. Face is symmetric and expressive. EYES: PERRL. No scleral icterus or conjunctival injection. No discharge. HENT: Normocephalic, atraumatic. Hearing is grossly intact. Nares grossly patent and without discharge. Mucous membranes moist. NECK: No JVD. Patient moves neck without restriction. CARDIO: Rhythm regular. Normal rate. No murmur, rub, or gallop. Pulses equal b ilaterally in the upper and lower extremity. No lower extremity edema. PULM: Lungs clear to auscultation in all rahman. No wheezes, rales, or rhonchi. No conversational dyspnea. No splinting, stridor, or accessory muscle use. GI/: Abdomen is soft and non-tender. Normoactive bowel sounds. EXTREMITIES: Symmetric muscle bulk. No joint swelling. No clubbing, cyanosis, or deformity. SKIN: Warm and dry. Normal turgor. No rash or lesions appreciated. PSYCH: Mood, affect, and interaction is appropriate to the setting. Constitutional Vital Signs, click to edit/add: Last Vital Signs Temp 97.7 F 09/28/24 21:57 Pulse 67 09/28/24 21:57 Resp 18 09/28/24 21:57 BP 157/76 H 09/28/24 21:57 Pulse Ox 100 09/28/24 21:57 Course Vital Signs Vital signs: Vital Signs Temperature 97.7 F 09/28/24 21:57 Pulse Rate 67 09/28/24 21:57 Respiratory Rate 18 09/28/24 21:57 Blood Pressure 157/76 H 09/28/24 21:57 Pulse Oximetry 100 09/28/24 21:57 Temperature 97.7 F 09/28/24 21:57 Pulse Rate 67 09/28/24 21:57 Respiratory Rate 18 09/28/24 21:57 Blood Pressure 157/76 H 09/28/24 21:57 Pulse Oximetry 100 09/28/24 21:57 Medical Decision Making MDM Narrative Medical decision making narrative: 74-year-old female to the emergency department with chief complaint of episode of nonsustained ventricular tachycardia while wearing a Holter monitor. Vital stable, the patient is afebrile. She is asymptomatic. Cardiac evaluation. CBC and chemistry without significant abnormality. She does have some abnormal renal function, fluid was ordered. No major electrolyte abnormalities. Potassium magnesium are near optimized. Troponin normal. BNP is normal. She had witnessed arrhythmia on Holter monitor, Nonsustained V. tach, she will need admission for further monitoring and consideration of structural causes. Case discussed with the hospitalist who agrees admit this patient for observation and telemetry monitoring. Patient agrees with this plan. Medical Records Medical records reviewed: Yes I reviewed the patient's medical records Lab Data Lab results reviewed: Yes I reviewed the patient's lab results Labs: Lab Results 09/28/24 Range/Units 22:20 WBC 5.7 (4.0-11.0) 10^3/uL RBC 3.30 L (4.20-5.40) 10^6/uL Hgb 9.4 L (12.0-16.0) g/dL Hct 29.3 L (36.0-48.0) % MCV 88.8 (81.0-99.0) fL MCH 28.5 (26.7-34.0) pg MCHC 32.1 (29.9-35.2) g/dL RDW 13.9 (11.0-15.0) % Plt Count 264 (150-450) 10^3/uL MPV 9.2 L (9.5-13.5) fL Neut % (Auto) 58.3 (43.0-75.0) % Lymph % (Auto) 27.9 (20.5-60.0) % Moffat % (Auto) 8.1 (1.7-12.0) % Eos % (Auto) 4.4 (0.9-7.0) % Baso % (Auto) 0.9 (0.2-2.0) % Neut # (Auto) 3.3 (1.4-6.5) 10^3/uL Lymph # (Auto) 1.6 (1.2-3.8) 10^3/uL Moffat # (Auto) 0.5 (0.3-0.8) 10^3/uL Eos # (Auto) 0.3 (0.0-0.7) 10^3/uL Baso # (Auto) 0.1 (0.0-0.1) 10^3/uL Abs Immat Gran (auto) 0.02 (0.00-0.03) 10^3/uL Imm/Tot Granulo (auto) 0.4 (0.0-0.5) % Sodium 142 (136-145) mmol/L Potassium 3.9 (3.5-5.1) mmol/L Chloride 106 (98-107) mmol/L Carbon Dioxide 25.8 (21.0-32.0) mmol/L Anion Gap 14.1 BUN 20.0 H (7.0-18.0) mg/dL Creatinine 1.29 H (0.55-1.02) mg/dL Est GFR ( Amer) 49 L (>=60 mL/min/1.73m^2) Est GFR (Non-Af Amer) 40 L (>=60 mL/min/1.73m^2) BUN/Creatinine Ratio 15.5 Glucose 116 H (74-106) mg/dL Calcium 9.8 (8.5-10.1) mg/dL Magnesium 2.1 (1.8-2.4) mg/dL Troponin I High Sens 19.2 (4.0-51.3) pg/mL NT-Pro-B Natriuret Pep 240.0 (<=900.0) pg/mL Imaging Data Chest x-ray: Attestation: I have reviewed the pertinent imaging results. Radiologist's impression: ITS Impressions Chest X-Ray 09/28/24 22:09 IMPRESSION: Hyperexpanded lungs. Please correlate for COPD. Electronically authenticated by: NAT HERNANDEZ Date: 09/28/2024 23:28 ECG Data Attestation: I personally reviewed and interpreted this ECG as follows: (Normal sinus rhythm at a rate of 67. Occasional PVCs. no STEMI. Normal QTc.) Discharge Plan Discharge Chief Complaint: Arrhythmia/Palpitations Clinical Impression: Non-sustained ventricular tachycardia Patient Disposition: Admitted as Observation Time of Disposition Decision: 00:01 Condition: Good Mode of Transportation: Private Vehicle Prescriptions / Home Meds: No Action allopurinol 300 mg tablet 300 mg PO DAILY Caltrate 600-D Plus Minerals 600 mg calcium- 800 unit-50 mg tablet 1 tab PO DAILY [facility] 8 mg iron-400 mcg-50 mcg tablet 1 tab PO DAILY lovastatin 10 mg tablet 10 mg PO DAILY lisinopril 2.5 mg tablet 2.5 mg PO DAILY Effer-K 25 mEq tablet, effervescent 25 meq PO DAILY Multaq 400 mg tablet 400 mg PO DAILY PRN (Reason: palpitations) Xarelto 20 mg tablet 20 mg PO Q24H cholecalciferol (vitamin D3) 25 mcg (1,000 unit) capsule 25 mcg PO DAILY levothyroxine 125 mcg tablet 125 mcg PO DAILY acetaminophen [Tylenol Arthritis Pain] 650 mg tablet extended release 650 mg PO Q12H PRN (Reason: pain) fexofenadine [[facility] Allergy] 180 mg tablet 180 mg PO DAILY [facility] 750 mg-100 mg- 1.65 mg-108 mg tablet 1 tab PO DAILY Krill Oil ([place] 3 and 6) 1,500-165-67.5 mg capsule 1 cap PO DAILY mirabegron [Myrbetriq] 50 mg tablet extended release 24 hr 50 mg PO DAILY Qty: 20 0RF cephalexin 500 mg capsule 500 mg PO BID 7 Days Qty: 14 0RF Print Language: Trinidadian Referrals: CORNEL ANAYA [Primary Care Provider] - 1 week
[2024-09-29] VITALS (15 sets, daily range): BP systolic 104–131; BP diastolic 52–74; PULSE 48–78; TEMP 36.3–36.9; O2SAT 96–98; BMI 35.8
--- NOTE | 2024-09-29 | PCN_ITS ---
CARDIAC STRESS TEST Requesting Physician: Ben Gómez Procedure Date: 09/29/2024 PERFORMING PROVIDER: Abhinav Bhatt M.D. INDICATION: Bradycardia/SVT. STRESS TEST TYPE: Lexiscan myocardial perfusion imaging. Resting heart rate: 54 Max heart rate: 95 Resting blood pressure: 126/62 Maximum blood pressure: 126/62 CONCLUSION: 1. Uninterpretable baseline rhythm due to large amount of artifact on EKG. 2. Patient had chest pressure with injection that resolved prior to leaving the lab. Additionally, patient had large PVC burden. 3. Due to uninterpretable EKG, this is a non-diagnostic study. 4. Please refer to separately interpreted and reported nuclear myocardial perfusion imaging. MTDD
--- OUTSIDE RECORDS SUMMARY | 2024-09-29 01:21 | XMS_ITS | CCD ---
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 Role Phone Jaclyn Connor Marinelli Unavailable Unavailable Unavailable CONNOR ANAYA Primary Care Physician [phone] Nick Richardson II Attending Unav ailelisabeth Richardson [...] DR WILLARD Pittman Consulting Unavailable FURLONG, DR CNONOR Marinelli Primary Care Unavailable WEST, DR WILLARD [...] DR WILLARD Pittman Admgabriela Unavailable WEST, DR WILLRAD Pittman Attending Unavailable Zieber, Kyle Consulting Unavailable [...] FURLONG, DR CONNOR Marinelli Primary Care Unavailable SANBORNTON, DR WILLARD Pittman Consulting Unavailable WEST, DR WILLARD Pittman Admitting Unavailable FURLONG, DR CONNOR Marinelli Primary Care Unavailable SANBORNTON, DR WILLARD Pittman Attending Unavailable MISC, DOCTOR Admitting Unavailable MISC, DOCTOR Attending Unavailable MISC, DOCTOR Consulting Unavailable FURNG, DR CONNOR Marinelli Primary Care Unavailable Cressona Connor ESCALANTE Primary Care Provider Orzech, Radha X Admitting Unavailable Orzech, Radha X Attending Unavailable Orzech, Radha X Attending Unavailable Orzech, Radha X Attending Unavailable DULCE ALCAZAR Attending Unavailab le Yehuda HASSAN Attending Unavailable Yehuda HASSAN Attending Unavailable Yehuda HASSAN Attending Unavailable Orzech, Radha X Attending Unavailable Orzech, Radha X Attending Unavailable [facility] Connor G Primary Care Provider JACLYN, CONNOR Marinelli Attending Unavailable FURLONG, CONNOR Marinelli Referring Unavailable FURLONG, CONNOR Marinelli Primary Care Unavailable FURNG, CONNOR Marinelli Attending Unavailable FURNG, CONNOR Marinelli Referring Unavailable FURNG, CONNOR Marinelli Primary Care [facility]available [facility] Referring Unavailable FURLONG, CONNOR Marinelli Primary Care Unavailable FURNG, CONNOR Marinelli Referring Unavailable FURNG, CONNOR Marinelli Primary Care Unavailable [facility] Connor Garciaard [facility] Provider [facility] HAYDEN Primary Care Provider JR. MCCLAIN GEORGE C Attending Unavailmarlee MCCLAIN JR., GEORGE C Referring Unavaila NANY Akbar Attending Unavailable NANY SWANSON Referring Unavailable Orzech, Radha X Attending Unavailable Orzech, Radha X Admitting Unavailable Orzech, Radha X Attending Unavailable Yehuda HASSAN Attending Unavailable JOHNATHANUINNICK Ryan Attending Unavailable FURLONG, CONNOR SOW Primary Care Unavailab le NCIK RICHARDSON Attending Unavailable FURLONG, CONNOR SOW Primary Care Unavailab NICK Rousseau Referring Unavailable CARMEN LOPEZ Attending Unavailable NICK RICHARDSON Referring Unavailable FURLONG, CONNOR SOW Primary Care Unavailab le Allergies Allergy Classification Reported Allergen(s) Allergy Type Date of Onset Reaction(s) Facility (20 sources) Ciprofloxacin; Translations: [ciprofloxacin] Drug Allergy 12-12-19 Eruption of skin (disorder), Unknown, Rash [facility] [place] (20 sources) Sulfonamides (Antibiotic); Translations: [Sulfa Drugs] Allergy to drug (finding) Eruption of skin (disorder) [facility] [place] (20 sources) corn extract; Translations: [Glasgow] Drug Allergy 02-18-20 24 Unknown (qualifier value), Other (See Comments) [facility] (13 sources) Dog; Translations: [Dogs] Allergy to substance Unknown (qualifier value) [facility] (20 sources) Mold Extract; Translations: [mold] Drug Allergy 06-21-20 Unknown (qualifier value), Other (See Comments) [facility] (13 sources) Milk Products; Translations: [Milk Products] Food allergy Unknown (qualifier value) [facility] (13 sources) house dust mite allergen extract; Translations: [house dust mite allergen extra] Allergy to substance Unknown (qualifier value) [facility] (2 sources) Ciprofloxacin Drug Allergy 01-31-20 14 [facility] (1 source) house dust allergenic extract Drug Allergy [facility] (2 sources) Lactose Drug Allergy [facility] (1 source) Sulfonamides (Antibiotic) Drug allergy (disorder) [facility] (14 sources) Sulfonamides (Antibiotic); Translations: [SULFA (SULFONAMIDE ANTIBIOTICS)] Drug Intolerance 06-21-20 Unknown, [facility] Work Phone: (8 sources) Sulfamethoxazole / Trimethoprim; Translations: [SULFAMETHOXAZOLE-T RIMETHOPRIM] Drug Allergy 11-13-19 [facility] Medications Current Medications Medication Drug [...] Active take 1 tablet by mouth once dno y fexofenadine (Hannah) 60 mg tablet Take 1 tablet (60 mg) by mouth once daily. Active krill oil (7 sources) Start: 02-18-2024 take 1 capsule by mouth in the morning tktkm-ey-6-vnr-xay-tyhysxv-ast (KRILL OIL) 1,826-025-85-80 mg capsule Take 1 capsule by mouth [...] adjustment) Start: 07-29-2019 take 1 capsule by [facility] once daily levothyroxine 137 mcg (0.137 [...] ADULT 50+ PO) as directed Orally Active rudfuflb-fei-hjze-F A-vit K-lut (Centrum Silver Women) 8 mg iron-400 mcg-50 mcg tablet (2 sources) take 1 tablet by mouth once daily bzephyys-kux-vvao-FA -vit K-lut (Centrum Silver Women) 8 mg iron-400 mcg-50 mcg tablet Take 1 tablet by mouth once daily. Active nutxmtbm-ukw-vkgk-F A-vit K-lut (CENTRUM SILVER WOMEN) 8 mg iron-400 mcg-50 mcg tablet (6 sources) take 1 tablet by mouth once in the morning sevelall-rsj-fiww-FA -vit K-lut (CENTRUM SILVER WOMEN) 8 mg iron-400 mcg-50 mcg tablet Take 1 tablet by mouth in the morning. Active Orlando-3 Fatty Acids (OMEGA-3 FISH OIL PO) (3 sources) Orlando-3 Fatty Ac ids (OMEGA-3 FISH OIL PO) Take by mouth Active omega-3 fatty acids-fish oil (One-Per-Day Orlando-3) 684-1,200 mg capsule (2 sources) omega-3 fatty acids-fish oil (One-Per-Day Orlando-3) 684-1,200 mg capsule Take 1 capsule (1,200 [...] procedure, # 2 cap(s), Refills(s) 0, Pharmacy: [facility], 165, cm, 06/30/22 11:48:00 EDT, Height/Length [...] BID, # 60 tab(s), Refills(s) 11, Pharmacy: [facility], 165, cm, 10/26/23 8:42:00 EST, Height/Length Dosing, 97.5, kg, 10/26/23 8:42:00 EST, Weight Dosing Start Date: 10/26/23 Status: Ordered 1 ml methylPREDNISolone acetate 40 mg/ml injection (4 sources) Corticosteroid Start: 2023 End: 2023 methylPREDNISolone acetate (DEPO-Medrol) injection 40 mg Start: 09-02-2024 End: 09-02-2024 40 mg, Intra-articular, Once PRN Procedure, Starting on Sun09/02/24 at 1414, For 1 dose Orlando 3 CAPS (7 sources) Orlando 3 CAPS BASSAM E DIRECTED. 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 Consent was given by the patient. [facility] XR Knee - right 1 or 2 [...] on bone articulation and patella femoral joint [facility] Radiology Study observation (narrative) [facility] COMPREHENSIVE METABOLIC PANE Good 08-18-2024 Albumin [Mass/Vol] 3.9 g/dL Normal 3.2-5.3 [facility] Comment on above: Performed By: #### T HYR, 64726-7, CMP #### [facility] ([id number]) [address], [address] [place] [address] ALP [Catalytic activity/Vol] 114 U/L Normal 39-130 [facility] Comment on above: Performed By: #### Min KABA, 27811-2, CMP #### [facility] ([id number]) [address], [address] [place] [address] ALT [Catalytic activity/Vol] 15 U/L Normal 0-31 [facility] Comment on above: Performed By: #### Min KABA, 62732-2, CMP #### [facility] ([id number]) [address], [address] [place] [address] Anion gap [Moles/Vol] 8 mmol/L Normal 5-15 [facility] Comment on above: Performed By: #### Min KABA, 09078-9, CMP #### [facility] ([id number]) [address], [address] [place] [address] AST [Catalytic activity/Vol] 20 U/L Normal 0-41 [facility] Comment on above: Performed By: #### Min KABA, 46593-0, CMP #### [facility] ([id number]) [address], [address] [place] [address] Bilirubin [Mass/Vol] 0.5 mg/dL Normal 0.3-1.2 [facility] Comment on above: Performed By: #### Min KABA, 46819-1, CMP #### [facility] ([id number]) [address], [address] [place] [address] Calcium [Mass/Vol] 10.4 mg/dL Normal 8.5-10.5 [facility] Comment on above: Performed By: #### Min KABA, 78244-6, CMP #### [facility] ([id number]) [address], [address] [place] [address] Chloride [Moles/Vol] 103 mmol/L Normal 98-109 [facility] Comment on above: Performed By: #### Min KABA 04805-7, CMP #### [facility] ([id number]) [address], [address] [place] [address] CO2 [Moles/Vol] 27 mmol/L Normal 22-32 [facility] Comment on above: Performed By: #### Min KABA, 72211-9, CMP #### [facility] ([id number]) [address], [address] [place] [address] Creatinine [Mass/Vol] 0.80 mg/dL Normal 0.40-1.00 [facility] Comment on above: Result Comment: METH OD TRACEABLE TO IDMS STANDARD Performed By: #### Min KABA 43896-5, CMP #### [facility] ([id number]) [address], [address] [place] [address] GFR/1.73 sq M.predicted among non-blacks MDRD (S/P/Bld) [Vol rate/Area] 77 mL/min/{1.73_m2} Normal >59 [facility] Comment on above: Result Comment: Reported eGFR is based on the CKD-EPI 2020 equation that does not use a race coefficient. Performed By: #### Min KABA 57476-3, CMP #### [facility] ([id number]) [address], [address] [place] [address] Glucose [Mass/Vol] 99 mg/dL Normal 65-99 [facility] Comment on above: Performed By: #### Min KABA 61994-5, CMP #### [facility] ([id number]) [address], [address] [place] [address] Potassium [Moles/Vol] 4.0 mmol/L Normal 3.5-5.0 [facility] Comment on above: Performed By: #### Min KABA, 57029-9, CMP #### [facility] ([id number]) [address], [address] [place] [address] Protein [Mass/Vol] 7.0 g/dL Normal 6.0-8.0 [facility] Comment on above: Performed By: #### Min SENDY, 01321-8, CMP #### [facility] ([id number]) [address], [address] [place] [address] Sodium [Moles/Vol] 138 mmol/L Normal 134-146 [facility] Comment on above: Performed By: #### Min KABA, 57265-3, CMP #### [facility] ([id number]) [address], [address] [place] [address] Urea nitrogen [Mass/Vol] 18 mg/dL Normal 5-27 [facility] Comment on above: Performed By: #### Min SENDY, 44595-7, CMP #### [facility] ([id number]) [address], [address] [place] [address] Comprehensive metabolic pane good 08-18-2024 Albumin [Mass/Vol] 3.9 g/dL 3.2 - 5.3 g/dL [facility] ALP [Catalytic activity/Vol] 114 U/L 39 - 130 U/L [facility] ALT No additional P-5'-P [Catalytic activity/Vol] 15 U/L 0 - 31 U/L [facility] Anion gap [Moles/Vol] 8 mmol/L 5 - 15 mmol/L [facility] AST [Catalytic activity/Vol] 20 U/L 0 - 41 U/L [facility] Bilirubin [Mass/Vol] 0.5 mg/dL 0.3 - 1.2 mg/dL [facility] Calcium [Mass/Vol] 10.4 mg/dL 8.5 - 10.5 mg/dL [facility] Chloride [Moles/Vol] 103 mmol/L 98 - 109 mmol/L [facility] CO2 [Moles/Vol] 27 mmol/L 22 - 32 mmol/L [facility] Creatinine [Mass/Vol] 0.8 mg/dL 0.40 - 1.00 mg/dL [facility] Comment on above: METHOD TRACEABLE TO IDHI STANDARD eGFR (CKD-EPI)non-race dependent 77 - PINF [facility] Comment on above: Reported eGFR is based on the CKD-EPI 2020 equation that does not use a race coefficient. Glucose [Mass/Vol] 99 mg/dL 65 - 99 mg/dL [facility] Potassium [Moles/Vol] 4 mmol/L 3.5 - 5.0 mmol/L [facility] Protein [Mass/Vol] 7 g/dL 6.0 - 8.0 g/dL [facility] Sodium [Moles/Vol] 138 mmol/L 134 - 146 mmol/L [facility] Urea nitrogen [Mass/Vol] 18 mg/dL 5 - 27 mg/dL [facility] Lipid 1996 panelon 4 Cholesterol [Mass/Vol] 187 mg/dL 150 - 200 mg/dL [facility] Cholesterol in HDL [Mass/Vol] 66 mg/dL 39 - PINF mg/dL [facility] Comment on above: HDL <40 mg/dL - High Risk HDL > or = 40mg/dL- Desirable HDL >60 mg/dL - Negative Risk Cholesterol in LDL [Mass/Vol] 107 mg/dL NINF - 130 mg/dL [facility] Comment on above: LDL <100 mg/dL - Desirable LDL >160 mg/dL - High Risk Cholesterol in VLDL [Mass/Vol] 14 mg/dL 0 - 30 mg/dL [facility] Cholesterol.total /Cholesterol in HDL [Mass ratio] 2.8 {ratio} 1.0 - 5.0 [facility] Triglyceride [Mass/Vol] 68 mg/dL 27 - 150 mg/dL [facility] Cholesterol [Mass/Vol] 187 mg/dL Normal 150-200 [facility] Comment on above: Performed By: #### T [facility], 39866-8, CMP #### [facility] ([id number]) [address], [address] [place] [address] Cholesterol in HDL [Mass/Vol] 66 mg/dL Normal >39 [facility] Comment on above: Result Comment: HDL <40 mg/dL - High Risk HDL > or = 40mg/dL- Desirable HDL >60 mg/dL - Negative Risk Performed By: #### Min KABA 47562-0, CMP #### [facility] ([id number]) [address], [address] [place] [address] Cholesterol in LDL [Mass/Vol] 107 mg/dL Normal <130 [facility] Comment on above: Result Comment: LDL <100 mg/dL - Desirable LDL >160 mg/dL - High Risk Performed By: #### Min KABA 98846-9, CMP #### [facility] ([id number]) [address], [address] [place] [address] Cholesterol in VLDL [Mass/Vol] 14 mg/dL Normal 0-30 [facility] Comment on above: Performed By: ###Chavo KABA 75683-5, CMP #### [facility] ([id number]) [address], [address] [place] [address] CHOLESTEROL:HDL 2.8 Normal 1.0-5.0 [facility] Comment on above: Performed By: #### Min KABA 35373-6, CMP #### [facility] ([id number]) [address], [address] [place] [address] Triglyceride [Mass/Vol] 68 mg/dL Normal 27-150 [facility] Comment on above: Performed By: #### T HYR, 18808-1, CMP #### [facility] ([id number]) [address], [address] [place] [address] No Panel Informationon 08-18 [facility] THYROID PROFILEon 08-18-2024 Free T4 [Mass/Vol] 1.33 ng/dL Normal 0.61-1.60 [facility] Comment on above: Performed By: #### T HYR, 54697-9, CMP #### [facility] ([id number]) [address] [place] [address] TSH 0.35 uIU/mL Low 0.49-4.67 [facility] Comment on above: Performed By: #### T HYR, 26245-2, CMP #### [facility] ([id number]) [address] [place] [address] Thyroid profile includes TSH FT4on 08-18-2024 Free T4 [Mass/Vol] 1.33 ng/dL 0.61 - 1.60 ng/dL [facility] Interpretation and review of laboratory results Abnormal [facility] TSH Qn 0.35 m[IU]/L Low [facility] UroVysion Fish and Urine Cyt o ([facility])on 08-05-2024 UVFISH & UC Diagnosis Info Invalid Interpretation Code [facility] Comment on above: Result Comment: A:Ur [...] with cytology and cystoscopy results. * CPT: 40689, 25083. MicroScopic Description - MicroScopic Description - Electronically signed by : on: 08/05/2024 16:40:06 Performed By: #### 1 [id number] #### [facility] [address] [place] [address] UroVysion Fish and Urine Cyt o ([facility])on 07-29-2024 [facility] Method of Extraction Voided Normal [facility] Comment on above: Performed By: #### 1 [id number] #### [facility] [address] [place] [address] [facility] Number of Jars 1 Invalid Interpretation Code [facility] Comment on above: Performed By: #### 1 [id number] #### [facility] [address] [place] [address] [facility] Specimen Urine Normal [facility] Comment on above: Performed By: #### 1 [id number] #### [facility] [address] [place] [address] [facility] Type of Service Technical Only Normal [facility] Comment on above: Performed By: #### 1 [id number] #### [facility] [address] [place] [address] Urine Cytology ([facility])on 07-18-2024 Microscopic exam Cytology (U) [Interp] Diagnosis Info Invalid Interpretation Code [facility] Comment on above: Result Comment: A:Ur [...] on: 07/18/2024 12:47:49 Performed By: #### 1 [id number] #### [facility] [address] [place] [address] Ambulatory Visit Summaryon 07-15-2024 Ambulatory Visit Summary [...] When: Comments: pending review of imaging Where: [address] [place] [address]- Medications What How Much When Instructions Unchanged [...] prescribing physician if questions or concerns Allergies Glasgow (Unknown) Dogs (Unknown) Milk Products (Unknown) Mold [...] the b (more content not included)... Normal [facility] Urine Cytology ([facility])on 0 07-15-2024 Method of Extraction Voided Normal [facility] Comment on above: Performed By: #### 1 [id number] #### [facility] [address] [place] [address] Number of Jars 1 Invalid Interpretation Code [facility] Comment on above: Performed By: #### 1 [id number] #### [facility] [address] [facility] [place] [address] Specimen Clean Catch Normal [facility] Comment on above: Performed By: #### 1 [id number] #### [facility] [address] [place] [address] Type of Service Technical Only Normal [facility] Comment on above: Performed By: #### 1 [id number] #### [facility] [address] [place] [address] Urology Office/Clinic Noteon 07-15-2024 Urology Office/Clinic Note [...] with voice recognition artificial intelligence software, specifically [employer], [employer] and or [employer]. Substitutions may have occurred due to the [...] Urnls Dip Stick Auto w/o Microscopy POC 44157 Follow-up With When Contact Information MO HAYDEN, Yehuda Haddad, URL [address] [place] [address]- Additional Instructions: pending review of imaging Patient Education Kidney Stones, Kzdx-xq-Sjpa Hematuria, Adult Problem List/Past Medical History Ongoing [...] bile duct (more content not included)... Normal [facility] Comment on above: Result Comment: Elec tronically Signed By: RAAD Back APRN, Radha Lopes\.br\Date and Time Signed: 07/15/24 15:39 EDT ECG 12 Leadon 03-06-2024 Sinus bradycardia with occasional PVCs Low voltage QRS Nonspecific ST change QTc 391 ms [facility] Work Phone: BASIC METABOLIC PANLon 02-17 Anion gap [Moles/Vol] 6 mmol/L Normal 5-15 [facility] Comment on above: Performed By: #### B YONATAN, THYR #### [facility] ([id number]) [address], [address] [place] [address] Calcium [Mass/Vol] 9.8 mg/dL Normal 8.5-10.5 [facility] Comment on above: Performed By: #### B YONATAN, THYR #### [facility] ([id number]) [address], [address] [place] [address] Chloride [Moles/Vol] 106 mmol/L Normal 98-109 [facility] Comment on above: Performed By: #### B YONATAN, THYR #### [facility] ([id number]) [address], [address] [place] [address] CO2 [Moles/Vol] 31 mmol/L Normal 22-32 [facility] Comment on above: Performed By: #### Win TAM, THYR #### [facility] ([id number]) [address], [address] [place] [address] Creatinine [Mass/Vol] 0.90 mg/dL Normal 0.40-1.00 [facility] Comment on above: Result Comment: METH OD TRACEABLE TO IDMS STANDARD Performed By: #### B YONATAN, THYR #### [facility] ([id number]) [address], [address] [place] [address] GFR/1.73 sq M.predicted among non-blacks MDRD (S/P/Bld) [Vol rate/Area] 68 mL/min/{1.73_m2} Normal >59 [facility] Comment on above: Result Comment: Reported eGFR is based on the CKD-EPI 2020 equation that does not use a race coefficient. Performed By: #### B YONATAN, THYR #### [facility] ([id number]) [address], [address] [place] [address] Glucose [Mass/Vol] 105 mg/dL High 65-99 [facility] Comment on above: Performed By: #### B YONATAN, THYR #### [facility] ([id number]) [address] [address] [place] [address] Potassium [Moles/Vol] 4.2 mmol/L Normal 3.5-5.0 [facility] Comment on above: Performed By: #### B YONATAN, THYR #### [facility] ([id number]) [address] [address] [place] [address] Sodium [Moles/Vol] 143 mmol/L Normal 134-146 [facility] Comment on above: Performed By: #### B YONATAN, THYR #### [facility] ([id number]) [address] [place] [address] Urea nitrogen [Mass/Vol] 19 mg/dL Normal 5-27 [facility] Comment on above: Performed By: #### B YONATAN, THYR #### [facility] ([id number]) [address] [address] [place] [address] THYROID PROFILEon 02-18-2024 Free T4 [Mass/Vol] 1.92 ng/dL High 0.61-1.60 [facility] Comment on above: Performed By: #### B YONATAN, THYR #### [facility] ([id number]) [address] [address] [place] [address] TSH 0.58 uIU/mL Normal 0.49-4.67 [facility] Comment on above: Performed By: #### B YONATAN, THYR #### [facility] ([id number]) [address] [address] [place] [address] Ambulatory Visit Summaryon 1 Ambulatory Visit Summary MIKY FUENTES :1950 Visit Date:10/26/2023 Ambulatory Visit Instructions Your Diagnosis Ureteral stone with hydronephrosis Kidney stone Tests Performed Urnls Dip Stick Auto w/o Microscopy POC 31655 Your Care Team Attending Physician - Yehuda [...] With: Where: [facility] Normal [address] [place] [address] [place] [address]- \.br\ You Need to Schedule the Following Appointments\.br\ Follow Up with MO HAYDEN, Yehuda Haddad, GENEVIEVEL When: \.br\ Where:\.br\ [address] [facility]\.br\ [place] [address]-\.br\ Medications\.br\ What How Much When Instructions\.br\ New potassium bicarbonate (K-Effervescent 25 mEq oral tablet, effervescent) 1 Tablets By Mouth 2 times a day Refills: 11 Pickup at [facility]\.br\ Unchanged allopurinol (allopurinol 300 mg Tab) [...] if questions or concerns \.br\ Pharmacy Information\.br\ [facility]: [address] [place], [place] [id number] [phone]\.br\ \.br\ What How Much When Why Comments\.br\ Stop Taking tamsulosin (Flomax 0.4 mg Cap) 1 Capsules By Mouth Every day Right flank pain Kidney stones Gross hematuria\.br\ Test Results\.br\ Urnls Dip Stick Auto w/o Microscopy POC 55911 (10/26/2023)\.br\ Bilirubin Urine Dipstick - Negative\.br\ Blood Urine Dipstick - 3+ Large\.br\ Glucose Urine Dipstick - Negative\.br\ Ketones Urine Dipstick - Negative\.br\ Leukocytes Urine Dipstick - Negative\.br\ Nitrite Urine Dipstick - Negative\.br\ Protein Urine Dipstick - 2+ (100 mg/dl)\.br\ Specific [place] Urine Dipstick - 1.025\.br\ Urine Appearance Urine Dipstick - Slightly cloudy\.br\ Urine Color Urine Dipstick - Yellow\.br\ Urobilinogen Urine Dipstick - Normal 0.2-1 EU/dl\.br\ pH Urine Dipstick - 5\.br\ Allergies\.br\ Glasgow (Unknown)\.br\ Dogs (Unknown)\.br\ Milk Products (Unknown)\.br\ Mold [...] \.br\ Have a salad and fruit [facility] Patient Educationon 10-26-20 Patient Education [...] Spinach (cooked), rhubarb, beets, sweet potatoes, and Burundian chard. ? Peanuts. ? Potato chips, english fries, and baked potatoes with skin on. ? Nuts and nut products. ? Chocolate. ? If you regularly take a diuretic medicine, make sure to eat at least 1 or 2 servings of fruits or vegetables that are high in potassium each day. These include: ? Avocado. ? Banana. ? [place], prune, carrot, or tomato juice. ? Baked [...] fish oil, or vitamin B6. ? Take jhfu-cxm-ykujytk and prescription medicines only as told by your health care provider. These include supplements. What foods sh (more content not included)... Normal [facility] RAD - MISCon 10-26-2023 [facility] MIS [id number]#1 .00TIFF [facility] [id number]#1 .00TIFF [facility] Urology Office/Clinic Noteon 10-26-2023 Urology Office/Clinic Note Chief Complaint CT Review HPI Staff 2 wk f/u with KUB. Saw DAXA at prior OV. Previous Dx: R flank pain, kidney stones, gross hematuria. S/p ESWL 11/18/20. CT AP wo con done 10/11/23 at [facility].Was given Tamsulosin, however stopped taking [...] Information MO HAYDEN, Yehuda Haddad, URL [address] [id number]- Additional Instructions: 6 months Patient Education Dietary [...] joint sup (more content not included)... Normal [facility] Comment on above: Result Comment: Elec tronically Signed By: Yehuda HASSAN MD\.br\Date and Time Signed: 10/26/23 09:11 EST\.br\Electronically Co-Signed By: Chantal Bishop\Date and Time Co-Signed: 10/26/23 09:09 EST RAD - CT Reporton 10-15-2023 RAD - CT Report [id number]# 1.00TIFF Normal [facility] RAD - CT Report [id number]#1 .00TIFF Normal [facility] RAD - MISCon 10-15-2023 RAD - MISC [id number]#1 .00TIFF Normal [facility] RAD - MISC [id number] .00TIFF Normal [facility] Ambulatory Visit Summaryon 1 12-10-2022 Ambulatory Visit Summary MIKY FUENTES :1950 Visit Date:10/09/2023 Ambulatory Visit Instructions Your Diagnosis Gross hematuria Right flank pain Tests Performed Urnls Dip Stick Auto w/o Microscopy POC 93113 Your Care Team Attending Physician - DORA ALCAZAR PA-C Primary Care Physician - CNONOR ANAYA DO This Is Your Medications List [...] Urnls Dip Stick Auto w/o Microscopy POC 89543 (10/09/2023) Bilirubin Urine Dipstick - Negative Blood Urine Dipstick - 3+ Large Glucose Urine Dipstick - Negative Ketones Urine Dipstick - Negative Leukocytes Urine Dipstick - Negative Nitrite Urine Dipstick - Negative Protein Urine Dipstick - 3+ (300 mg/dl) Specific [place] Urine Dipstick - >=1.030 Urine Appearance Urine Dipstick - Clear Urine Color Urine Dipstick - Yellow Urobilinogen Urine Dipstick - Normal 0.2-1 EU/dl pH Urine Dipstick - 5.5 Allergies [place] (Unknown) Dogs (Unknown) Milk Products (Unknown) Mold [...] choosing us for your care. Normal [facility] Patient Educationon 10-09-20 Patient Education [...] these instructions at home: Medicines ? Take lmor-xyg-kfkmpys and prescription medicines only as told by [...] the blood stops without treatment. ? Take vewi-yjf-okiqgwy and prescription medicines only as told by your health care provider. ? Drink enough fluid to keep your urine pale yellow. This information is not intended to replace advice given to you by your health care provider. Make sure you discuss any questions you have with your health care provider. Document Revised: 06/15/2021 Document Reviewed: 06/15/2021 [employer] Patient Education ? 2022 [employer]. Normal [facility] Urology Office/Clinic Noteon 10-09-2023 Urology Office/Clinic [...] Daily, # 30 cap(s), Refills(s) 0, Pharmacy: [facility], 165, cm, 10/09/23 15:24:00 EST, Height/Length Dosing, 113, kg, 10/09/23 15:24:00 EST, Weight Dosing CT Abdomen w/o Contrast E&M of Est. Patient Moderate 30-39 Min 53776 2. Kidney stones (N20.0: Calculus of kidney) see #1 KUB from this spring showed several medium (6-7mm) R renal stones has had multiple lithotripsy in past Ordered: tamsulosin, 0.4 mg = 1 cap(s), Oral, Daily, # 30 cap(s), Refills(s) 0, Pharmacy: [facility], 165, cm, 10/09/23 15:24:00 EST, Height/Length Dosing, 113, kg, 10/09/23 15:24:00 EST, Weight Dosing CT Abdomen w/o Contrast E&M of Est. Patient Moderate 30-39 Min 87373 3. Gross hematuria (R31.0: Gross hematuria) see #1 Ordered: tamsulosin, 0.4 mg = 1 cap(s), Oral, Daily, # 30 cap(s), Refills(s) 0, Pharmacy: [facility], 165, cm, 10/09/23 15:24:00 EST, Height/Length Dosing, 113, kg, 10/09/23 15:24:00 EST, Weight Dosing CT Abdomen w/o Contrast E&M of Est. Patient Moderate 30-39 Min 75303 Urnls Dip Stick Auto w/o Microscopy POC 18061 Follow-up With When Contact Information INGE CARDONA, DORA [place]burn, URL [address] [facility] [place] [address] Business (1) Additional Instructions: pending [...] Oral, B (more content not included)... Normal [facility] Comment on above: Result Comment: Elec tronically Signed By: INGE CARDONA, DORA [place]\.br\Date and Time Signed: 10/09/23 15:49 EST CREATININEon 03-05-2023 Creatinine [Mass/Vol] 1.16 mg/dL Critically high 0.55-1.02 [facility] Comment on above: Performed By: #### C AIYANA #### [facility] [address] [address] [address] Alysha Machuca EGFR-AF S[place] 56 mL/min/1.73m2 Critically low >=60 [facility] Comment on above: Performed By: #### C AIYANA #### [facility] [address] [address] [address] Alysha Machuca EGFR-NON AF [place] 46 mL/min/1.73m2 Critically low >=60 [facility] Comment on above: Performed By: #### C AIYANA #### [facility] [address] [place] [address] ABD/PELVIS WO CONon [...] KYLE CHENEY Date: 2023-03-05 15:08 Normal [facility] VITAMIN B1 (THIAMINE)on 01-28 Vit. B1, Whole Blood 132.2 nmol/L Normal 66.5-200.0 [facility] Comment on above: Performed By: #### V ITB1T ####[facility] [address] [id number]. Alysha Machuca CBC AUTO DIFFon 02-20-2023 BASO # 0.1 103/ul Normal 0.0-0.1 [facility] Comment on above: Performed By: #### C BC #### [facility] [address], [place] [address] Dr. Alysha Machuca Basophils/100 WBC (Bld) 0.9 % Normal 0.2-2.0 [facility] Comment on above: Performed By: #### C BC #### [facility] [address], [place] [address] Dr. Alysha Machuca EO # 0.2 103/ul Normal 0.0-0.7 [facility] Comment on above: Performed By: #### C BC #### [facility] [address] [place] [address] Dr. Alysha Machuca Eosinophils/100 WBC (Bld) 3.0 % Normal 0.9-7.0 [facility] Comment on above: Performed By: #### C BC #### [facility] [address] [place] [address] Dr. Alysha Machuca Erythrocyte distribution width (RBC) [Ratio] 13.9 % Normal 11.0-15.0 [facility] Comment on above: Performed By: #### C BC #### [facility] [address] [place] [address] Dr. Alysha Machuca Hematocrit (Bld) [Volume fraction] 39.5 % Normal 36.0-48.0 [facility] Comment on above: Performed By: #### C BC #### [facility] [address] [place] [address] Dr. Alysha Machuca Hemoglobin (Bld) [Mass/Vol] 12.7 g/dL Normal 12.0-16.0 [facility] Comment on above: Performed By: #### C BC #### [facility] [address] [place] [address] Dr. Alysha Machuca IG # 0.01 10e3/ul Normal 0.00-0.03 [facility] Comment on above: Performed By: #### C BC #### [facility] [address] [place] [address] Dr. Alysha Machuca IG % 0.2 % Normal 0.0-0.5 [facility] Comment on above: Performed By: #### C BC #### [facility] [address] [place] [address] Dr. Alysha Machuca LYMPH # 1.7 103/ul Normal 1.2-3.8 [facility] Comment on above: Performed By: #### C BC #### [facility] [address] [place] [address] Dr. Alysha Machuca Lymphocytes/100 WBC (Bld) 30.7 % Normal 20.5-60.0 [facility] Comment on above: Performed By: #### C BC #### [facility] [address] [place] [address] Dr. Alysha Machuca MANUAL DIFF REQ NO Normal [facility] Comment on above: Performed By: #### C BC #### [facility] [address] [place] [address] Dr. Alysha Machuca MCH (RBC) [Entitic mass] 29.3 pg Normal 26.7-34.0 [facility] Comment on above: Performed By: #### C BC #### [facility] [address] [place] [address] Dr. Alysha Machuca MCHC (RBC) [Mass/Vol] 32.2 g/dL Normal 29.9-35.2 [facility] Comment on above: Performed By: #### C BC #### [facility] [address] [place] [address] Dr. Alysha Machuca MCV (RBC) [Entitic vol] 91.0 fL Normal 81.0-99.0 [facility] Comment on above: Performed By: #### C BC #### [facility] [address] [place] [address] Dr. Alysha Machuca MONO # 0.4 103/ul Normal 0.3-0.8 [facility] Comment on above: Performed By: #### C BC #### [facility] [address] [place] [address] Dr. Alysha Machuca Monocytes/100 WBC (Bld) 6.8 % Normal 1.7-12.0 [facility] Comment on above: Performed By: #### C BC #### [facility] [address] [place] [address] Dr. Alysha Machuca NEUT # 3.3 103/ul Normal 1.4-6.5 [facility] Comment on above: Performed By: #### C BC #### [facility] [address] [place] [address] Dr. Alysha Machuca Neutrophils/100 WBC (Bld) 58.4 % Normal 43.0-75.0 [facility] Comment on above: Performed By: #### C BC #### [facility] [address] [address] [address] Alysha Machuca Platelet mean volume (Bld) [Entitic vol] 9.3 fL Critically low 9.5-13.5 [facility] Comment on above: Performed By: #### C BC #### [facility] [address] [address] [address] Alysha Machuca PLT 186 103/ul Normal 150-450 [facility] Comment on above: Performed By: #### C BC #### [facility] [address] [address] [address] Alysha Machuca RBC 4.34 106/ul Normal 4.20-5.40 [facility] Comment on above: Performed By: #### C BC #### [facility] [address] [address] [address] Alysha Machuca WBC 5.6 103/ul Normal 4.0-11.0 [facility] Comment on above: Performed By: #### C BC #### [facility] [address] [address] [address] Alysha Machuca FERRITINon 02-20-2023 Ferritin [Mass/Vol] 36.0 ng/mL Normal 8.0-252.0 [facility] Comment on above: Performed By: #### F ERR, B12FOL, FETIBC, VITAD ####[facility] [address] [address]DrMaite Machuca IRON AND TIBCon 02-20-2023 % SATURATION 15.8 % Normal [facility] Comment on above: Performed By: #### F ERR, B12FOL, FETIBC, VITAD ####[facility] [address] [address]Dr. Alysha Machuca Iron [Mass/Vol] 53.0 ug/dL Normal 50.0-170.0 [facility] Comment on above: Performed By: #### F ERR, B12FOL, FETIBC, VITAD ####[facility] [address] [address]Dr. Alysha Machuca TIBC DIRECT 335.0 ug/dL Normal 250.0-450.0 [facility] Comment on above: Performed By: #### F ERR, B12FOL, FETIBC, VITAD ####[facility] [address] [place], [place] [address]RpDr. Alysha Machuca MAGNESIUMon 02-20-2023 Magnesium [Mass/Vol] 1.9 mg/dL Normal 1.8-2.4 [facility] Comment on above: Performed By: #### P HOS, CMP, MG #### [facility] [address] [address] [address] Alysha Machuca PHOSPHORUSon 02-20-2023 Phosphate [Mass/Vol] 3.9 mg/dL Normal 2.6-4.7 [facility] Comment on above: Performed By: #### P HOS, CMP, MG #### [facility] [address] [place] [address] Dr. Alysha Machuca PROF 14(COMP METB)on 023 Albumin [Mass/Vol] 3.4 g/dL Normal 3.4-5.0 [facility] Comment on above: Performed By: #### P HOS, CMP, MG #### [facility] [address] [place] [address] Dr. Alysha Machuca Albumin/Globulin [Mass ratio] 0.9 {ratio} Normal [facility] Comment on above: Performed By: #### P HOS, CMP, MG #### [facility] [address] [address] [address] Alysha Machuca ALP [Catalytic activity/Vol] 123 U/L Critically high 46-116 [facility] Comment on above: Performed By: #### P HOS, CMP, MG #### [facility] [address] [place] [address] Dr. Alysha Machuca ALT [Catalytic activity/Vol] 21 U/L Normal 14-59 [facility] Comment on above: Performed By: #### P HOS, CMP, MG #### [facility] [address] [place] [address] Dr. Alysha Machuca Anion gap [Moles/Vol] 13.8 mmol/L Normal [facility] Comment on above: Performed By: #### P HOS, CMP, MG #### [facility] [address] [address] [address] Alysha Machuca AST [Catalytic activity/Vol] 15 U/L Normal 15-37 [facility] Comment on above: Performed By: #### P HOS, CMP, MG #### [facility] [address] [address] [address] Alysha Machuca Bilirubin [Mass/Vol] 0.5 mg/dL Normal 0.2-1.0 [facility] Comment on above: Performed By: #### P HOS, CMP, MG #### [facility] [address] [place] [address] Dr. Alysha Machuca Calcium [Mass/Vol] 9.6 mg/dL Normal 8.5-10.1 [facility] Comment on above: Performed By: #### P HOS, CMP, MG #### [facility] [address] [place] [address] Dr. Alysha Machuca Chloride [Moles/Vol] 103 mmol/L Normal 98-107 [facility] Comment on above: Performed By: #### P HOS, CMP, MG #### [facility] [address] [place] [address] Dr. Alysha Machuca CO2 [Moles/Vol] 25.2 mmol/L Normal 21.0-32.0 [facility] Comment on above: Performed By: #### P HOS, CMP, MG #### [facility] [address] [place] [address] Dr. Alysha Machuca Creatinine [Mass/Vol] 0.95 mg/dL Normal 0.55-1.02 [facility] Comment on above: Performed By: #### P HOS, CMP, MG #### [facility] [address] [place] [address] Dr. Alysha Machuca EGFR-AF [place] >60 Normal >=60 [facility] Comment on above: Performed By: #### P HOS, CMP, MG #### [facility] [address] [address] [address] Alysha Machuca EGFR-NON AF [place] 58 mL/min/1.73m2 Critically low >=60 [facility] Comment on above: Performed By: #### P HOS, CMP, MG #### [facility] [address] [address] [address] Alysha Machuca Globulin (S) [Mass/Vol] 3.6 g/dL Normal [facility] Comment on above: Performed By: #### P HOS, CMP, MG #### [facility] [address] [address] [address] Alysha Machuca Glucose [Mass/Vol] 96 mg/dL Normal 74-106 [facility] Comment on above: Performed By: #### P HOS, CMP, MG #### [facility] [address] [place] [address] Dr. Alysha Machuca Potassium [Moles/Vol] 4.0 mmol/L Normal 3.5-5.1 [facility] Comment on above: Performed By: #### P HOS, CMP, MG #### [facility] [address] [address] [address] Alysha Machuca Protein [Mass/Vol] 7.0 g/dL Normal 6.4-8.2 [facility] Comment on above: Performed By: #### P HOS, CMP, MG #### [facility] [address] [place] [address] Dr. Alysha Machuca Sodium [Moles/Vol] 138 mmol/L Normal 136-145 [facility] Comment on above: Performed By: #### P HOS, CMP, MG #### [facility] [address] [address] [address] Alysha Machuca Urea nitrogen [Mass/Vol] 21.0 mg/dL Critically high 7.0-18.0 [facility] Comment on above: Performed By: #### P HOS, CMP, MG #### [facility] [address] [address] [address] Alysha Machuca Urea nitrogen/Creatini ne [Mass ratio] 22.1 mg/mg Normal [facility] Comment on above: Performed By: #### P HOS, CMP, MG #### [facility] [address], [place] [address] Dr. Alysha Machuca VIT B12 AND FOLATEon 023 Cobalamin (Vitamin B12) [Mass/Vol] 652.0 pg/mL Normal 193.0-986.0 [facility] Comment on above: Performed By: #### F ERR, B12FOL, FETIBC, VITAD ####[facility] [address] [address]Dr. Alysha Machuca FOLATE 18.30 ng/mL Normal 8.60-58.90 [facility] Comment on above: Performed By: #### F ERR, B12FOL, FETIBC, VITAD ####[facility] [address] [address]Dr. Alysha Machuca VITAMIN D 25 OHon 02-20-2023 VIT D 25-OH 41.7 ng/mL Normal [facility] Comment on above: Performed By: #### F ERR, B12FOL, FETIBC, VITAD ####[facility] [address] [address]Dr. Alysha Machuca VIT D RANGES SEE BELOW Normal [facility] Comment on above: Result Comment: <20 ng/mL Vit D deficient 20 - <30 ng/mL Vit D insufficient 30 - 100 ng/mL Vit D sufficient >100 ng/mL Potential Toxicity Performed By: #### F ERR, B12FOL, FETIBC, VITAD ####[facility] [address] [address]Dr. Alysha Machuca XR KUB 1 VIEWon 02-20-2023 [...] KYLE CHENEY Date: 2023-02-20 15:57 Normal [facility] Office Visit (Cardiology)on 12-06-2022 Follow-up visit Diagnoses/Problems Assessed Anticoagulated (V58.61) (Z79.01) Hyperlipidemia (272.4) (E78.5) Non-ischemic cardiomyopathy (425.4) (I42.8) Paroxysmal atrial fibrillation (427.31) (I48.0) Class 2 obesity with body mass index (BMI) of 36.0 to 36.9 in adult (278.00,V85.36) (E66.9,Z68.36) Never a smoker Orders Class 2 obesity with body mass index (BMI) of 36.0 to 36.9 in adult Healthy Weight Tips; Status:Complete; Done: [id number] Some eating tips that can help you lose weight.; Status:Complete; Done: 53Dev4138 Hyperlipidemia Renew: Lovastatin 10 MG Oral Tablet; TAKE 1 TABLET DAILY DIRECTED Paroxysmal atrial fibrillation IO EKG Electrocardiogram- 12 Lead; Status:Complete; Done: 81Wne2565 SocHx: Never a smoker Tobacco Use Screening; Status:Complete; Done: 24Bkb4205 Patient Instructions Please bring all medicines, vitamins, [...] MG Oral TabletTAKE 1 TABLET Twice daily [place] 3 [place] DIRECTED. Tylenol Arthritis Ext Relief [...] negative for complaint. Vitals Vital Signs Recorded: 47Emu5235 01:27PM Heart Rate43, Apical Zijbdpzy405, RUE, Sitting Ozcosvvew94, RUE, Sitting Height5 ft 5 in [place]ky905 lb BMI Lbvgkpkwpw98.94 kg/m2 BSA Calculated2.07 Tobacco Useb) No PHQ-2 [...] Screening.on 023 Adult depression screening assessment No [facility] y 250 DO Work Phone: Fall risk assessment a) No falls within the last year [facility] y 250 DO Work Phone: Tobacco use status [facility] b) No [facility] 250 DO Work Phone: VC INJ SCL [employer] SPECIALIST VEINSon 0 11-03-2022 VC INJ SCL [employer] Patient: MIKY FUENTES Exam Date: 11/03/2022 : 1950 Gender:F Ordering : DR WILLARD SHARMA M.D. Admission #: [id number] Family : Order #: [id number] CLICK HERE TO VIEW EXAM RADIOLOGY REPORT PROCEDURE: VEIN CENTER INJECTION SCLEROSING SOLUTION MULTIPLE VEINS SAME COMPARISON: VC INJ SCL [employer] VEINS, 10/27/2022. VC INJ SCL [employer], 10/16/2022. INDICATIONS: Pain co-occurrent and due [...] Sharma MD on 11/03/2022 at 12:37 Normal [facility] XR KUB 1 VIEWon 11-03-2022 XR KUB [...] by: KYLE CHENEY Date: 2022-11-03 12:52 Normal [facility] VC INJ SCL [employer] SPECIALIST VEINSon 1 VC INJ SCL [employer] Patient: MIKY FUENTES Exam Date: 10/27/2022 : 1950 Gender:F Ordering : DR WILLARD SHARMA M.D. Admission #: [id number] Family : Order #: [id number] CLICK HERE TO VIEW EXAM RADIOLOGY REPORT PROCEDURE: VEIN CENTER INJECTION SCLEROSING SOLUTION MULTIPLE VEINS SAME COMPARISON: VC INJ SCL [employer] VEINS, 10/16/2022. VC INJ SCL [employer] VEINS, 10/06/2022. INDICATIONS: Pain co-occurrent and due [...] Sharma MD on 10/27/2022 at 11:46 Normal [facility] VC INJ SCL [employer]IST VEINSon 1 12-17-2021 VC INJ SCL [employer] Patient: MIKY FUENTES Exam Date: 10/16/2022 : 1950 Gender:F Ordering : DR WILLARD SHARMA M.D. Admission #: [id number] Family : Order #: [id number] CLICK HERE TO VIEW EXAM RADIOLOGY REPORT PROCEDURE: VEIN CENTER INJECTION SCLEROSING SOLUTION MULTIPLE VEINS SAME COMPARISON: VC INJ SCL [employer] VEINS, 10/06/2022. INDICATIONS: Pain co-occurrent and due [...] M.D. on 10/17/2022 at 08:12 Normal [facility] CREATININEon 10-10-2022 Creatinine [Mass/Vol] 1.11 mg/dL Critically high 0.55-1.02 [facility] Comment on above: Performed By: #### C AIYANA ####[facility] [address] [place] [address]DrMaite Machuca EGFR-AF [place] 59 mL/min/1.73m2 Critically low >=60 [facility] Comment on above: Performed By: #### C AIYANA ####[facility] [address] [place] [address]DrMaite Machuca EGFR-NON AF [place] 48 mL/min/1.73m2 Critically low >=60 [facility] Comment on above: Performed By: #### C AIYANA ####[facility] [address] [place], [place] [address]DiMaite Machuca VC INJ SCL [employer] SPECIALIST VEINSon 1 12-07-2021 VC INJ SCL [employer] VEINS Patient: MIKY FUENTES Exam Date: 10/06/2022 : 1950 Gender:F Ordering : DR WILLARD SHARMA M.D. Admission #: [id number] Family : Order #: [id number] CLICK HERE TO VIEW EXAM RADIOLOGY REPORT [...] MD on 10/06/2022 at 13:45 Normal [facility] VC CONSULT FOLLOWUPon 2021 VC CONSULT FOLLOWUP Patient: MIKY FUENTES Exam Date: 09/26/2022 : 1950 Gender:F Ordering : DR WILLARD SHARMA M.D. Admission #: [id number] Family : Order #: [id number] CLICK HERE TO VIEW EXAM RADIOLOGY REPORT [...] Cheney M.D. on 09/26/2022 at 15:46 Normal [facility] VC EXT VENOUS RT LIMITEDon 1 11-26-2021 VC EXT VENOUS RT LIMITED Patient: MIKY FUENTES Exam Date: 09/26/2022 : 1950 Gender:F Ordering : DR WILLARD SHARMA M.D. Admission #: [id number] Family : Order #: [id number] CLICK HERE TO VIEW EXAM RADIOLOGY REPORT [...] Cheney M.D. on 09/26/2022 at 15:44 Normal [facility] VC INJ FOAM SCLERO W US MLTI on 09-20-2022 VC INJ FOAM SCLERO W US MLTI Patient: MIKY FUENTES Exam Date: 09/20/2022 : 1950 Gender:F Ordering : DR WILLARD SHARMA M.D. Admission #: [id number] Family : Order #: [id number] CLICK HERE TO VIEW EXAM RADIOLOGY REPORT [...] Kyle Cheney M.D. on 09/20/2022 at 15:43 [facility] CONSULT FOLLOWUPon 2021 VC CONSULT FOLLOWUP Patient: MIKY FUENTES Exam Date: 09/07/2022 : 1950 Gender:F Ordering : DR WILLARD SHARMA M.D. Admission #: [id number] Family : Order #: [id number] CLICK HERE [...] MD on 09/07/2022 at 13:04 Normal [facility] VC EXT VENOUS LT LIMITEDon 1 11-07-2021 VC EXT VENOUS LT LIMITED Patient: MIKY FUENTES Exam Date: 09/07/2022 : 1950 Gender:F Ordering : DR WILLARD SHARMA M.D. Admission #: [id number] Family : Order #: [id number] CLICK HERE TO VIEW EXAM RADIOLOGY REPORT [...] MD on 09/07/2022 at 11:59 Normal [facility] CBC AUTO DIFFon 09-01-2022 BASO # 0.0 103/ul Normal 0.0-0.1 [facility] Comment on above: Performed By: #### C BC #### [facility] [address] [place] [address] Dr. Alysha Machuca Basophils/100 WBC (Bld) 0.6 % Normal 0.2-2.0 [facility] Comment on above: Performed By: #### C BC #### [facility] [address] [place] [address] Dr. Alysha Machuca EO # 0.3 103/ul Normal 0.0-0.7 [facility] Comment on above: Performed By: #### C BC #### [facility] [address] [place] [address] Dr. Alysha Machuca Eosinophils/100 WBC (Bld) 4.3 % Normal 0.9-7.0 [facility] Comment on above: Performed By: #### C BC #### [facility] [address] [place] [address] Dr. Alysah Machuca Erythrocyte distribution width (RBC) [Ratio] 14.6 % Normal 11.0-15.0 [facility] Comment on above: Performed By: #### C BC #### [facility] [address] [place] [address] Dr. Alysha Machuca Hematocrit (Bld) [Volume fraction] 39.7 % Normal 36.0-48.0 [facility] Comment on above: Performed By: #### C BC #### [facility] [address] [place] [address] Dr. Alysha Machuca Hemoglobin (Bld) [Mass/Vol] 13.1 g/dL Normal 12.0-16.0 [facility] Comment on above: Performed By: #### C BC #### [facility] [address] [place] [address] Dr. Alysha Machuca IG # 0.01 10e3/ul Normal 0.00-0.03 [facility] Comment on above: Performed By: #### C BC #### [facility] [address] [place] [address] Dr. Alysha Machuca IG % 0.2 % Normal 0.0-0.5 [facility] Comment on above: Performed By: #### C BC #### [facility] [address] [place] [address] Dr. Alysha Machuca LYMPH # 1.9 103/ul Normal 1.2-3.8 [facility] Comment on above: Performed By: #### C BC #### [facility] [address] [place] [address] Dr. Alysha Machuca Lymphocytes/100 WBC (Bld) 29.5 % Normal 20.5-60.0 [facility] Comment on above: Performed By: #### C BC #### [facility] [address] [place] [address] Dr. Alysha Machuca MANUAL DIFF REQ NO Normal [facility] Comment on above: Performed By: #### C BC #### [facility] [address] [place] [address] Dr. Alysha Machuca MCH (RBC) [Entitic mass] 29.8 pg Normal 26.7-34.0 [facility] Comment on above: Performed By: #### C BC #### [facility] [address] [place] [address] Dr. Alysha Machuca MCHC (RBC) [Mass/Vol] 33.0 g/dL Normal 29.9-35.2 [facility] Comment on above: Performed By: #### C BC #### [facility] [address] [place] [address] Dr. Alysha Machuca MCV (RBC) [Entitic vol] 90.2 fL Normal 81.0-99.0 [facility] Comment on above: Performed By: #### C BC #### [facility] [address] [place] [address] Dr. Alysha Machuca MONO # 0.5 103/ul Normal 0.3-0.8 [facility] Comment on above: Performed By: #### C BC #### [facility] [address] [place] [address] Dr. Alysha Machuca Monocytes/100 WBC (Bld) 7.0 % Normal 1.7-12.0 [facility] Comment on above: Performed By: #### C BC #### [facility] [address] [place] [address] Dr. Alysha Machuca NEUT # 3.8 103/ul Normal 1.4-6.5 [facility] Comment on above: Performed By: #### C BC #### [facility] [address] [place] [address] Dr. Alysha Machuca Neutrophils/100 WBC (Bld) 58.4 % Normal 43.0-75.0 [facility] Comment on above: Performed By: #### C BC #### [facility] [address] [place] [address] Dr. Alysha Machuca Platelet mean volume (Bld) [Entitic vol] 9.5 fL Normal 9.5-13.5 [facility] Comment on above: Performed By: #### C BC #### [facility] [address] [place] [address] Dr. Alysha Machuca PLT 235 103/ul Normal 150-450 [facility] Comment on above: Performed By: #### C BC #### [facility] [address] [place] [address] Dr. Alysha Machuca RBC 4.40 106/ul Normal 4.20-5.40 [facility] Comment on above: Performed By: #### C BC #### [facility] [address] [address] [address] Alysha Machuca WBC 6.6 103/ul Normal 4.0-11.0 [facility] Comment on above: Performed By: #### C BC #### [facility] [address] [place] [address] [address] Alysha Machuca PROF CHEM 8 (BAS METB)on Anion gap [Moles/Vol] 7.7 mmol/L Normal [facility] Comment on above: Performed By: #### B MP ####[facility] [address] [place] [address]DrMaite Machuca Calcium [Mass/Vol] 9.8 mg/dL Normal 8.5-10.1 [facility] Comment on above: Performed By: #### B MP ####[facility] [address] [place] [address]DrMaite Machuca Chloride [Moles/Vol] 104 mmol/L Normal 98-107 [facility] Comment on above: Performed By: #### B MP ####[facility] [address] [place] [address]DrMaite Machuca CO2 [Moles/Vol] 29.2 mmol/L Normal 21.0-32.0 [facility] Comment on above: Performed By: #### B MP ####[facility] [address] [place] [address]DrMaite Machuca Creatinine [Mass/Vol] 1.05 mg/dL Critically high 0.55-1.02 [facility] Comment on above: Performed By: #### B MP ####[facility] [address] [place] [address]DrMaite Machuca EGFR-AF [place] >60 Normal >=60 [facility] Comment on above: Performed By: #### B MP ####[facility] [address] [place] [address]Dr. Alysha Machuca EGFR-NON AF [place] 52 mL/min/1.73m2 Critically low >=60 [facility] Comment on above: Performed By: #### B MP ####[facility] [address] [place] [id number]. Alysha Machuca Glucose [Mass/Vol] 107 mg/dL Critically high 74-106 [facility] Comment on above: Performed By: #### B MP ####[facility] [address] [place] [address]Dr. Alysha Sven Potassium [Moles/Vol] 3.9 mmol/L Normal 3.5-5.1 [facility] Comment on above: Performed By: #### B MP ####[facility] [address] [place] [address]Dr. Alysha Sven Sodium [Moles/Vol] 137 mmol/L Normal 136-145 [facility] Comment on above: Performed By: #### B MP ####[facility] [address] [place] [address]Dr. Alysha Sven Urea nitrogen [Mass/Vol] 16.0 mg/dL Normal 7.0-18.0 [facility] Comment on above: Performed By: #### B MP ####[facility] [address] [place] [id number]. Alysha Sven Urea nitrogen/Creatini ne [Mass ratio] 15.2 mg/mg Normal [facility] Comment on above: Performed By: #### B MP ####[facility] [address] [place] [address]Dr. Alysha Sven VC INJ FOAM SCLERO W US MLTI on 08-31-2022 VC INJ FOAM SCLERO W US MLTI Patient: MIKY FUENTES Exam Date: 08/31/2022 : 1950 Gender:F Ordering : DR WILLARD SHARMA M.D. Admission #: [id number] Family : Order #: [id number] CLICK HERE TO VIEW EXAM RADIOLOGY REPORT [...] compressi (more content not included)... Normal [facility] VC CONSULT FOLLOWUPon 2021 VC CONSULT FOLLOWUP Patient: MIKY FUENTES Exam Date: 08/22/2022 : 1950 Gender:F Ordering : DR WILLARD SHARMA M.D. Admission #: [id number] Family : Order #: [id number] CLICK HERE TO VIEW EXAM RADIOLOGY REPORT [...] Sharma MD on 08/22/2022 at 10:45 Normal [facility] VC EXT VENOUS RT LIMITEDon 1 VC EXT VENOUS RT LIMITED Patient: MIKY FUENTES Exam Date: 08/22/2022 : 1950 Gender:F Ordering : DR WILLARD SHARMA M.D. Admission #: [id number] Family : Order #: [id number] CLICK HERE TO VIEW EXAM RADIOLOGY REPORT [...] Willard Sharma MD on 08/22/2022 at 10:21 [facility] VC INJ FOAM SCLERO W US MLTI on 08-17-2022 VC INJ FOAM SCLERO W US MLTI Patient: MIKY FUENTES Exam Date: 08/17/2022 : 1950 Gender:F Ordering : DR WILLARD SHARMA M.D. Admission #: [id number] Family : Order #: [id number] CLICK HERE TO VIEW EXAM RADIOLOGY REPORT [...] take (more content not included)... Normal [facility] VC CONSULT FOLLOWUPon 2021 VC CONSULT FOLLOWUP Patient: MIKY FUENTES Exam Date: 08/07/2022 : 1950 Gender:F Ordering : DR WILLARD SHARMA M.D. Admission #: [id number] Family : Order #: [id number] CLICK HERE TO VIEW EXAM RADIOLOGY REPORT [...] Sharma MD on 08/07/2022 at 13:31 Normal [facility] VC EXT VENOUS LT LIMITEDon 1 VC EXT VENOUS LT LIMITED Patient: MIKY FUENTES Exam Date: 08/07/2022 : 1950 Gender:F Ordering : DR WILLARD SHARMA M.D. Admission #: [id number] Family : Order #: [id number] CLICK HERE TO VIEW EXAM RADIOLOGY REPORT [...] Sharma MD on 08/07/2022 at 12:01 Normal [facility] VC INJ FOAM SCLERO W US MLTI on 08-01-2022 VC INJ FOAM SCLERO W US MLTI Patient: MIKY FUENTES Exam Date: 08/01/2022 : 1950 Gender:F Ordering : DR WILLARD SHARMA M.D. Admission #: [id number] Family : Order #: [id number] CLICK HERE TO VIEW EXAM RADIOLOGY REPORT [...] compr (more content not included)... Normal [facility] VC CONSULT FOLLOWUPon 2021 VC CONSULT FOLLOWUP Patient: MIKY FUENTES Exam Date: 07/17/2022 : 1950 Gender:F Ordering : DR WILLARD SHARMA M.D. Admission #: [id number] Family : Order #: [id number] CLICK HERE TO VIEW EXAM RADIOLOGY REPORT [...] Cheney M.D. on 07/17/2022 at 12:18 Normal [facility] VC EXT VENOUS RT LIMITEDon 0 07-17-2022 VC EXT VENOUS RT LIMITED Patient: MIKY FUENTES Exam Date: 07/17/2022 : 1950 Gender:F Ordering : DR WILLARD SHARMA M.D. Admission #: [id number] Family : Order #: [id number] CLICK HERE TO VIEW EXAM RADIOLOGY REPORT [...] Kyle Cheney M.D. on 07/17/2022 at 12:14 [facility] VC INJ FOAM SCLERO W US MLTI on 07-12-2022 VC INJ FOAM SCLERO W US MLTI Patient: MIKY FUENTES Exam Date: 07/12/2022 : 1950 Gender:F Ordering : DR WILLARD SHARMA M.D. Admission #: [id number] Family : Order #: [id number] CLICK HERE TO VIEW EXAM RADIOLOGY REPORT [...] da (more content not included)... Normal [facility] VC CONSULT FOLLOWUPon 2021 VC CONSULT FOLLOWUP Patient: MIKY FUENTES Exam Date: 06/30/2022 : 1950 Gender:F Ordering : DR WILLARD SHARMA M.D. Admission #: [id number] Family : Order #: [id number] CLICK HERE TO VIEW EXAM RADIOLOGY REPORT [...] Sharma MD on 06/30/2022 at 13:21 Normal [facility] VC EXT VENOUS LT LIMITEDon 0 06-30-2022 VC EXT VENOUS LT LIMITED Patient: MIKY FUENTES Exam Date: 06/30/2022 : 1950 Gender:F Ordering : DR WILLARD SHARMA M.D. Admission #: [id number] Family : Order #: [id number] CLICK HERE TO VIEW EXAM RADIOLOGY REPORT [...] Sharma MD on 06/30/2022 at 13:02 Normal [facility] ALBUMIN, RANDOM URINE W/CREA TININEon 06-26-2022 ALBUMIN, URINE 12.7 mg/dL Normal See Note: [facility] Comment on above: Result Comment: Refe rence Range: Reference Range Not established Performed By: #### 7 600, 496, 87839, 6517 #### [facility] [address], [address] [place] [address] Contact Clerk: Marek Subramanian MD ALBUMIN/CREATININ E RATIO, RANDOM [...] category. Performed By: #### 7 600, 496, 03753, 6517 #### [facility] [place] [address] Contact Clerk: Marek Subramanian MD Creatinine (U) [Mass/Vol] 205 mg/dL Normal 20-275 [facility] Comment on above: Performed By: #### 7 600, 496, 70308, 6517 #### [facility] [place] [address] Contact Clerk: Marek Subramanian MD [facility] 06-26-2022 Albumin [Mass/Vol] 3.9 g/dL Normal 3.6-5.1 [facility] Comment on above: Performed By: #### 7 600, 496, 57679, 6517 #### [facility] [place] [address] Contact Clerk: Marek Subramanian MD Albumin/Globulin [Mass ratio] 1.4 {ratio} Normal 1.0-2.5 [facility] Comment on above: Performed By: #### 7 600, 496, 76933, 6517 #### [facility] [place] [address] Contact Clerk: Marek Subramanian MD ALP [Catalytic activity/Vol] 106 U/L Normal 37-153 [facility] Comment on above: Performed By: #### 7 600, 496, 87021, 6517 #### [facility] [place] [address] Contact Clerk: Marek Subramanian MD ALT [Catalytic activity/Vol] 10 U/L Normal 6-29 [facility] Comment on above: Performed By: #### 7 600, 496, 00986, 6517 #### [facility] of [place] [address] Contact Clerk: Marek Subramnaian MD AST [Catalytic activity/Vol] 13 U/L Normal 10-35 [facility] Comment on above: Performed By: #### 7 600, 496, 35439, 6517 #### [facility] of [place] [address] Contact Clerk: Marek Subramanian MD Bilirubin [Mass/Vol] 0.8 mg/dL Normal 0.2-1.2 [facility] Comment on above: Performed By: #### 7 600, 496, 94320, 6517 #### [facility] [place] [address] Contact Clerk: Marek Subramanian MD BUN/CREATININE RATIO NOT APPLICABLE Normal 6-22 [facility] Comment on above: Performed By: #### 7 600, 496, 64874, 6517 #### [facility] [place] [address] Contact Clerk: Marek Subramanian MD Calcium [Mass/Vol] 9.9 mg/dL Normal 8.6-10.4 [facility] Comment on above: Performed By: #### 7 600, 496, 25972, 6517 #### [facility] of [place] [address] Contact Clerk: Marek Subramanian MD Chloride [Moles/Vol] 109 mmol/L Normal 98-110 [facility] Comment on above: Performed By: #### 7 600, 496, 80258, 6517 #### [facility] [place] [address] Contact Clerk: Marek Subramanian MD CO2 [Moles/Vol] 24 mmol/L Normal 20-32 [facility] Comment on above: Performed By: #### 7 600, 496, 74840, 6517 #### [facility] [place] [address] Contact Clerk: Marek Subramanian MD Creatinine [Mass/Vol] 0.88 mg/dL Normal 0.60-1.00 [facility] Comment on above: Performed By: #### 7 600, 496, 13913, 6517 #### [facility] [place] [address] Contact Clerk: Marek Subramanian MD GFR/1.73 sq M.predicted among non-blacks MDRD (S/P/Bld) [Vol rate/Area] 70 mL/min/{1.73_m2} Normal > OR = 60 [facility] Comment on above: Result Comment: The eGFR is based on the CKD-EPI 2020 equation. To calculate the new eGFR from a previous Creatinine or Cystatin C result, go to https://www.kidney.org/professionals/ kdoqi/gfr%5Fcalculator Performed By: #### 7 600, 496, 76149, 6517 #### [facility] [place] [address] Contact Clerk: Marek Subramanian MD Globulin (S) [Mass/Vol] 2.7 g/dL Normal 1.9-3.7 [facility] Comment on above: Performed By: #### 7 600, 496, 25489, 6517 #### [facility] [place] [address] Contact Clerk: Marek Subramanian MD Glucose [Mass/Vol] 91 mg/dL Normal 65-99 [facility] Comment on above: Result Comment: Fasting reference interval Performed By: #### 7 600, 496, 73661, 6517 #### [facility] [place] [address] Contact Clerk: Marek Subramanian MD Potassium [Moles/Vol] 4.0 mmol/L Normal 3.5-5.3 [facility] Comment on above: Performed By: #### 7 600, 496, 03736, 6517 #### [facility] of [address], [address] [place] [address] Contact Clerk: Marek Subramanian MD Protein [Mass/Vol] 6.6 g/dL Normal 6.1-8.1 [facility] Comment on above: Performed By: #### 7 600, 496, 43451, 6517 #### [facility] [address], [address] [place] [address] Contact Clerk: Marek Subramanian MD Sodium [Moles/Vol] 143 mmol/L Normal 135-146 [facility] Comment on above: Performed By: #### 7 600, 496, 20557, 6517 #### [facility] [address], [address] [place] [address] Contact Clerk: Marek Subramanian MD Urea nitrogen [Mass/Vol] 15 mg/dL Normal 7-25 [facility] Comment on above: Performed By: #### 7 600, 496, 42423, 6517 #### [facility] [address], [address] [place] [address] Contact Clerk: Marek Subramanian MD HEMOGLOBIN A1con 06-26-2022 HEMOGLOBIN [...] diagnosis of diabetes in children. According to [place] Diabetes Association (ADA) guidelines, hemoglobin A1c <7.0% represents optimal control in non- diabetic patients. Different metrics may apply to specific patient populations. Standards of Medical Care in Diabetes(ADA). Performed By: #### 7 600, 496, 46233, 6517 #### [facility] [address], [address] [place] [address] Contact Clerk: Marek Subramanian MD LIPID PANEL, STANDARDon 08- Cholesterol [Mass/Vol] 171 mg/dL Normal <200 [facility] Comment on above: Order Comment: FASTI NG:YES FASTING: YES Performed By: #### 7 600, 496, 23024, 6517 #### [facility] [address], [address] [place] [address] Contact Clerk: Marek Subramanian MD Cholesterol in HDL [Mass/Vol] 60 mg/dL Normal > OR = 50 [facility] Comment on above: Order Comment: FASTI NG:YES FASTING: YES Performed By: #### 7 600, 496, 08595, 6517 #### [facility] [address], [address] [place] [address] Contact Clerk: Marek Subramanian MD Cholesterol in LDL [Mass/Vol] [...] LDL-C. Nikita SS et al. LEWIS. 2013;310(19): 4739-6886 (http://education.Sipwise.official.fm/faq/IWC573) Performed By: #### 7 600, 496, 13094, 6517 #### [facility] [address], [address] [place] [address] Contact Clerk: Marek Subramanian MD Cholesterol.total /Cholesterol in HDL [Mass ratio] 2.9 {ratio} Normal <5.0 [facility] Comment on above: Order Comment: FASTI NG:YES FASTING: YES Performed By: #### 7 600, 496, 71775, 6517 #### [facility] [address], [address] [place] [address] Contact Clerk: Marek Subramanian MD NON HDL CHOLESTEROL 111 mg/dL (calc) Normal <130 [facility] Comment on above: Order Comment: FASTI NG:YES FASTING: YES Result Comment: For patients with diabetes plus 1 major ASCVD risk factor, treating to a non-HDL-C goal of <100 mg/dL (LDL-C of <70 mg/dL) is considered a therapeutic option. Performed By: #### 7 600, 496, 62035, 6517 #### [facility] [address] [place] [address], [address] Contact Clerk: Marek Subramanian MD Triglyceride [Mass/Vol] 95 mg/dL Normal <150 [facility] Comment on above: Order Comment: FASTI NG:YES FASTING: YES Performed By: #### 7 600, 496, 58783, 6517 #### [facility] [address] [place] [address], [address] Contact Clerk: Marek Subramanian MD VC INJ FOAM SCLERO W US MLTI on 06-26-2022 VC INJ FOAM SCLERO W US MLTI Patient: MIKY FUENTES Exam Date: 06/26/2022 : 1950 Gender:F Ordering : DR WILLARD SHARMA M.D. Admission #: [id number] Family : Order #: [id number] CLICK HERE TO VIEW EXAM RADIOLOGY REPORT [...] vein medial distal lower leg/ankle. A large water quality technician vein was occluded with manual pressure [...] varices, (more content not included)... Normal [facility] VC CONSULT FOLLOWUPon 2021 VC CONSULT FOLLOWUP Patient: MIKY FUENTES Exam Date: 06/19/2022 : 1950 Gender:F Ordering : DR WILLARD SHARMA M.D. Admission #: [id number] Family : Order #: [id number] CLICK HERE TO VIEW EXAM RADIOLOGY REPORT [...] Kyle Cheney M.D. on 06/19/2022 at 12:14 [facility] VC EXT VENOUS RT LIMITEDon 0 06-19-2022 VC EXT VENOUS RT LIMITED Patient: MIKY FUENTES Exam Date: 06/19/2022 : 1950 Gender:F Ordering : DR WILLARD SHARMA M.D. Admission #: [id number] Family : Order #: [id number] CLICK HERE TO VIEW EXAM RADIOLOGY REPORT [...] Cheney M.D. on 06/19/2022 at 12:11 Normal [facility] VC INJ FOAM SCLERO W US MLTI on 06-13-2022 VC INJ FOAM SCLERO W US MLTI Patient: MIKY FUENTES Exam Date: 06/13/2022 : 1950 Gender:F Ordering : DR WILLARD SHARMA M.D. Admission #: [id number] Family : Order #: [id number] CLICK HERE TO VIEW EXAM CORRECTION made [...] Kyle Cheney M.D. on 06/19/2022 at 12:17 [facility] VC CONSULT FOLLOWUPon 2021 VC CONSULT FOLLOWUP Patient: MIKY FUENTES Exam Date: 05/31/2022 : 1950 Gender:F Ordering : DR WILLARD SHARMA M.D. Admission #: [id number] Family : Order #: [id number] CLICK HERE TO VIEW EXAM RADIOLOGY REPORT [...] Cheney M.D. on 05/31/2022 at 12:18 Normal [facility] VC EXT VENOUS LT LIMITEDon 0 05-31-2022 VC EXT VENOUS LT LIMITED Patient: MIKY FUENTES Exam Date: 05/31/2022 : 1950 Gender:F Ordering : DR WILLARD SHARMA M.D. Admission #: [id number] Family : Order #: [id number] CLICK HERE TO VIEW EXAM RADIOLOGY REPORT [...] Cheney M.D. on 05/31/2022 at 12:13 Normal [facility] CT ABD/PELVIS WO CONon 05-26 CT ABD/PELVIS [...] by: SANTHOSH NICK Date: 2022-05-26 16:43 Normal [facility] VC ENDOVENOUS ABL 1ST V LTon 05-23-2022 VC ENDOVENOUS ABL 1ST V LT Patient: MIKY FUENTES Exam Date: 05/23/2022 : 1950 Gender:F Ordering : DR WILLARD SHARMA M.D. Admission #: [id number] Family : Order #: [id number] CLICK HERE TO VIEW EXAM RADIOLOGY REPORT [...] Cheney M.D. on 05/23/2022 at 12:34 Normal [facility] US KIDNEYSon 05-05-2022 US KIDNEYS EXAMINATION: US [...] WILLARD SHARMA Date: 2022-05-05 13:29 Normal [facility] XR KUB 1 VIEWon 05-05-2022 XR [...] by: KYLE CHENEY Date: 2022-05-05 15:54 Normal [facility] MAMM SCREEN 3D TANMAY CADon 05-04-2022 MG MAMM SCREEN 3D TANMAY CAD Patient: MIKY FUENTES Exam Date: 05/04/2022 : 1950 Gender:F Ordering : DR CONNOR ANAYA Admission #: [id number] Family : Order #: [id number] CLICK HERE TO VIEW EXAM RADIOLOGY REPORT [...] colon cancer at age 60. LOCATION: [facility] BREAST COMPOSITION: Scattered areas fibroglandular density. [...] Cheney M.D. on 05/05/2022 at 14:21 Normal [facility] VC CONSULT FOLLOWUPon 2021 VC CONSULT FOLLOWUP Patient: MIKY FUENTES Exam Date: 05/04/2022 : 1950 Gender:F Ordering : DR WILLARD SHARMA M.D. Admission #: [id number] Family : Order #: [id number] CLICK HERE TO VIEW EXAM RADIOLOGY REPORT [...] M.D. on 05/04/2022 at 11:43 Normal [facility] VC EXT VENOUS RT LIMITEDon 0 05-04-2022 VC EXT VENOUS RT LIMITED Patient: MIKY FUENTES Exam Date: 05/04/2022 : 1950 Gender:F Ordering : DR WILLARD SHARMA M.D. Admission #: [id number] Family : Order #: [id number] CLICK HERE TO VIEW EXAM RADIOLOGY REPORT [...] M.D. on 05/04/2022 at 11:17 Normal [facility] CULTURE URINEon 05-03-2022 CULTURE URINE Culture Observations : LIGHT GROWTH OF MIXED GENITAL LUDWIN. NO POTENTIAL PATHOGENS SEEN. Normal [facility] Comment on above: Performed By: #### U RCX ####[facility] [address] [place], [place] [address]HjDr. Alysha Machuca UA RANDOMon 05-03-2022 Bilirubin Ql (U) Negative Normal NEGATIVE [facility] Comment on above: Performed By: #### U A #### [facility] [address] [place] [address] Dr. Alysha Machuca Clarity (U) TURBID Abnormal CLEAR [facility] Comment on above: Performed By: #### U A #### [facility] [address] [place] [address] Dr. Alysha Machuca Color (U) RED Abnormal YELLOW [facility] Comment on above: Result Comment: Prev iously reported as: YELLOW On 05/03/2022 17:30 By CV2 Performed By: #### U A #### [facility] [address] [place] [address] Dr. Alysha Machuca Glucose Ql (U) Negative Normal NEGATIVE [facility] Comment on above: Performed By: #### U A #### [facility] [address] [place] [address] Dr. Alysha Machuca Hemoglobin Ql (U) LARGE Abnormal NEGATIVE [facility] Comment on above: Performed By: #### U A #### [facility] [address] [place] [address] Dr. Alysha Machuca Ketones Ql (U) Negative Normal NEGATIVE [facility] Comment on above: Performed By: #### U A #### [facility] [address] [place] [address] Dr. Alysha Machuca LEUKOCYTES Negative Normal NEGATIVE [facility] Comment on above: Performed By: #### U A #### [facility] [address] [place] [address] Dr. Alysha Machuca Nitrite Ql (U) Negative Normal NEGATIVE [facility] Comment on above: Performed By: #### U A #### [facility] [address] [place] [address] Dr. Alysha Machuca pH (U) 6.0 [pH] Normal 5-9 [facility] Comment on above: Performed By: #### U A #### [facility] [address] [place] [address] Dr. Alysha Machuca SPEC GRAVITY 1.025 Normal 1.005-<=1.025 [facility] Comment on above: Performed By: #### U A #### [facility] [address] [address] [address] Alysha Machuca UA PROTEIN 100 mg/dl Abnormal NEGATIVE/ TRACE [facility] Comment on above: Performed By: #### U A #### [facility] [id number] Alysha Machuca Urobilinogen Qn (U) 0.2 {Luis'U}/dL Normal 0.2 - 1.0 [facility] Comment on above: Performed By: #### U A #### [facility] [address] [place] [address] Dr. Alysha Machuca VC ENDOVENOUS ABL 1ST V RTon 04-26-2022 VC ENDOVENOUS ABL 1ST V RT Patient: MIKY FUENTES Exam Date: 04/26/2022 : 1950 Gender:F Ordering : DR WILLARD SHARMA M.D. Admission #: [id number] Family : Order #: [id number] CLICK HERE TO VIEW EXAM RADIOLOGY REPORT [...] Sharma MD on 04/26/2022 at 10:58 Normal [facility] VC CONSULT FOLLOWUPon 2021 VC CONSULT FOLLOWUP Patient: MIKY FUENTES Exam Date: 04/13/2022 : 1950 Gender:F Ordering : DR WILLARD SHARMA M.D. Admission #: [id number] Family : Order #: [id number] CLICK HERE TO VIEW EXAM RADIOLOGY REPORT [...] Cheney M.D. on 04/13/2022 at 10:59 Normal [facility] VC EXT VENOUS LT LIMITEDon 0 04-13-2022 VC EXT VENOUS LT LIMITED Patient: MIKY FUENTES Exam Date: 04/13/2022 : 1950 Gender:F Ordering : DR WILLARD SHARMA M.D. Admission #: [id number] Family : Order #: [id number] CLICK HERE TO VIEW EXAM RADIOLOGY REPORT [...] M.D. on 04/13/2022 at 10:56 Normal [facility] Office Visit (Cardiology)on 03-22-2022 Follow-up visit [...] Weight Tips; Status:Complete - Retrospective Authorization; Done: [id number] Paroxysmal atrial fibrillation IO EKG Electrocardiogram- 12 Lead; Status:Complete; Done: [id number] SocHx: Never a smoker Tobacco Use Screening; Status:Complete; Done: [id number] Patient Instructions By signing my name below, I, David Maldonado LPN, attest that this documentation has been prepared under the direction and in the presence of Dr. iNck Richardson MD. All medical record entries made [...] failure. With guideline directed therapy in the yarsanism of maintenance of sinus rhythm her symptoms [...] Oral TabletTake 1 tablet twice a day [place] 3 [place] DIRECTED. Tylenol Arthritis Ext Relief [...] negative for complaint. Vitals Vital Signs Recorded: [id number] 02:06PM Heart Rate47, Apical Wnxgpvri918, RUE, Sitting Igtrpndgb21, RUE, Sitting Height5 ft 5 in Wqvrkb735 lb 6.4 oz BMI Aawmhozhwg35.17 kg/m2 BSA Calculated2.19 Tobacco Useb) No PHQ-2 [...] no murmurs (more content not included)... Normal [facility] Tobacco Screening.on 022 Adult depression screening assessment No -[facility] 250 DO Work Phone: Fall risk assessment a) No falls within the last year [facility] 250 DO Work Phone: Tobacco use status CP b) No -[facility] 250 DO Work Phone: VC ENDOVENOUS ABL PERFORATIN G LTon 03-22-2022 VC ENDOVENOUS ABL PERFORATING LT Patient: MIKY FUENTES Exam Date: 03/22/2022 : 1950 Gender:F Ordering : DR WILLARD SHARMA M.D. Admission #: [id number] Family : Order #: [id number] CLICK HERE TO VIEW EXAM RADIOLOGY REPORT PROCEDURE: VEIN CENTER ENDOVENOUS ABLATION VEIN LEFT LEG COMPARISON: None. INDICATIONS: Pain co-occurrent and due to varicose veins of bilateral legs I83.813 OPERATIVE REPORT: Diagnosis: Superficial venous reflux, incompetent perforating veins Procedure: Endovenous laser ablation of the left water quality technician(s) Procedure: The patient was positioned supine [...] MD (more content not included)... Normal [facility] KAL SCREEN, IFA, W/REFL TITE R/PATTERN [...] indicated. For additional information, please refer to http://education.Sipwise.official.fm/faq/DWJ373 (This link is being provided for informational/ educational purposes only.) Performed By: #### 8 87, 4039, 2100, 57883, %21310 #### [facility] [address], [address] [place], [place] [id number] Contact Clerk: Marek Subramanian MD ANTINUCLEAR ANTIBODIES TITER AND PATTERNon 10-01-2021 KAL PATTERN Nuclear, Centromere Abnormal Ques t [facility] Comment on above: Result Comment: Cent romere pattern is associated with limited cutaneous systemic sclerosis, CREST (Calcinosis, Raynaud's, Esophageal dysmotility, Sclerodactyly, Telangiectasia), primary biliary cholangitis (PBC), and other autoimmune diseases. AC-3: Centromere International Consensus on KAL Patterns (https://doi.org/10.1515/eaaj-2918-7772) Performed By: #### 8 09, 8268, 4420, 59525, %33424 #### [facility] [address], [address] [place] [address] Contact Clerk: Marek Subramanian MD KAL PATTERN Nuclear, Homogeneous Abnormal Que st [facility] Comment on above: Result Comment: Homo geneous pattern is associated with systemic lupus erythematosus (SLE), drug-induced lupus and juvenile idiopathic arthritis. AC-1: Homogeneous International Consensus on KAL Patterns (https://doi.org/10.1515/ztrz-7163-1393) Performed By: #### 8 09, 8268, 4420, 53712, %03073 #### [facility] [address], [address] [place] [address] Contact Clerk: Marek Subramanian MD KAL TITER > OR = 1:1280 Abnormal [facility] Comment on above: Result Comment: Refe rence Range <1:40 Negative 1:40-1:80 Low Antibody Level >1:80 Elevated Antibody Level Performed By: #### 8 09, 8268, 4420, 98422, %41310 #### [facility] [address], [address] [place], [place] [id number] Contact Clerk: Marek Subramanian MD KAL TITER 1:80 High [facility] Comment on above: Result Comment: A lo w level KAL titer may be present in pre- clinical autoimmune diseases and normal individuals. Reference Range <1:40 Negative 1:40-1:80 Low Antibody Level >1:80 Elevated Antibody Level Performed By: #### 8 09, 8268, 4420, 35311, %36240 #### [facility] [address] [place] [address] Contact Clerk: Marek Subramanian MD C-REACTIVE PROTEINon 021 CRP [Mass/Vol] 13.4 mg/L High <8.0 [facility] Comment on above: Performed By: #### 8 09, 8268, 4420, 48826, %72365 #### [facility] [address], [address] [place] [address] Contact Clerk: Marek Subramanian MD RHEUMATOID ARTHRITIS DIAGNOS TIC PANEL 1on 10-01-2021 CYCLIC CITRULLINATED PEPTIDE (CCP) AB (IGG) <16 Normal [facility] Comment on above: Result Comment: Refe rence Range Negative: <20 Weak Positive: 20-39 Moderate Positive: 40-59 Strong Positive: >59 Performed By: #### 8 09, 8268, 4420, 99778, %37387 #### [facility] [place] [address] Contact Clerk: Marek Subramanian MD INTERPRETATION Normal [facility] Comment on above: Result Comment: These serologic results may be found in 10-20% of patients with polyarthritis that is clinically and radiologically indistinguishable from RA. Performed By: #### 8 09, 8268, 4420, 22361, %76040 #### [facility] [place] [address] Contact Clerk: Marek Subramanian MD RHEUMATOID FACTOR <14 Normal <14 [facility] Comment on above: Performed By: #### 8 09, 8268, 4420, 53420, %24138 #### [facility] [place] [address] Contact Clerk: Marek Subramanian MD SED RATE BY MODIFIED SLIAS RENon 10-01-2021 SED RATE BY MODIFIED WESTERGREN 51 mm/h High < OR = 30 [facility] Comment on above: Performed By: #### 8 09, 8268, 4420, 19974, %03494 #### [facility] [address] [place] [address] [facility], [address] [place] [address] Contact Clerk: Marek Subramanian MD Tobacco Screening.on 021 Fall risk assessment a) No falls within the last year [facility] 600 DO Work Phone: Tobacco use status [facility] b) No [facility] 600 DO Work Phone: Vital Signs Date Time Vital Sign Value Performing Clinician Facility 08-28-2024 10:39-0400 Body height 165.1 cm Carmen Lopez MD Work Phone: [facility] 08-28-2024 10:39-0400 Body mass index (BMI) [Ratio] 35.28 kg/m2 Carmen Lopez MD Work Phone: [facility] 08-28-2024 10:39-0400 Body weight 96.16 kg Carmen Lopez MD Work Phone: [facility] 08-28-2024 10:39-0400 Diastolic blood pressure 56 mm[Hg] Carmen Lopez MD Work Phone: [facility] 08-28-2024 10:39-0400 Heart rate 56 /min Carmen Lopez MD Work Phone: [facility] 08-28-2024 10:39-0400 Systolic blood pressure 122 mm[Hg] Carmen Lopez MD Work Phone: [facility] 08-18-2024 10:47-0400 Body height 162.6 cm Connor [employer] Work Phone: [employer] 08-18-2024 10:47-0400 Body mass index (BMI) [Ratio] 36.22 kg/m2 [employer] Work Phone: [employer] 08-18-2024 10:47-0400 Body temperature 97.39 [degF] Connor Tavaresng DO Work Phone: [employer] 08-18-2024 10:47-0400 Body weight 95.71 kg Connor [facility]avaresng DO [facility] 08-18-2024 10:47-0400 Diastolic blood pressure 72 mm[Hg] Connor Lewislong DO [facility] 08-18-2024 10:47-0400 Heart rate 64 /min Connor Tavaresng DO [facility] 08-18-2024 10:47-0400 Systolic blood pressure 124 mm[Hg] Connor Tavaresng DO Work Phone: [facility] [employer] [facility] 03-06-2024 09:31-0400 Body height 165.1 cm Nick Richardson MD Work Phone: [facility] 03-06-2024 09:31-0400 Body mass index (BMI) [Ratio] 36.78 kg/m2 Nick Richardson MD Work Phone: [facility] 03-06-2024 09:31-0400 Body weight 100.25 kg Nick Richardson MD Work Phone: [facility] 03-06-2024 09:31-0400 Diastolic blood pressure 58 mm[Hg] Nick Richardson MD Work Phone: [facility] 03-06-2024 09:31-0400 Heart rate 44 /min Nick Richardson MD Work Phone: [facility] 03-06-2024 09:31-0400 Systolic blood pressure 104 mm[Hg] Nick Richardson MD Work Phone: [facility] 12-06-2022 13:27-0500 Body height 165.1 cm Connor Tavaresng Work Phone: [facility] 250 DO Work Phone: 12-06-2022 13:27-0500 Body mass index (BMI) [Ratio] 36.94 kg/m2 Connor Marinelli Furlong Work Phone: [facility] 250 DO Work Phone: 12-06-2022 13:27-0500 Body surface area Derived from formula 2.07 m2 Connor Marinelli Furlong Work Phone: [facility] 250 DO Work Phone: 12-06-2022 13:27-0500 Body weight 100.7 kg Connor Marinelli Furlong Work Phone: [facility] 250 DO Work Phone: 12-06-2022 13:27-0500 Diastolic blood pressure 84 mm[Hg] Connor Marinelli Furlong Work Phone: [facility] 250 DO Work Phone: 12-06-2022 13:27-0500 Heart rate 43 /min Connor Marinelli Furlong Work Phone: [facility] 250 DO Work Phone: 12-06-2022 13:27-0500 Systolic blood pressure 130 mm[Hg] Connor Marinelli Furlong Work Phone: [facility] 250 DO Work Phone: 06-30-2022 11:43-0400 Blood Pressure Location Yehuda HASSAN [facility] 06-30-2022 11:43-0400 Diastolic blood pressure 69 mm[Hg] Yehuda HASSAN [facility] 06-30-2022 11:43-0400 Heart rate 60 /min Yehuda HASSAN [facility] 06-30-2022 11:43-0400 Respiratory rate 16 /min Yehuda HASSAN [facility] 06-30-2022 11:43-0400 Systolic blood pressure 129 mm[Hg] Yehuda HASSAN [facility] 03-22-2022 14:06-0400 Body height 165.1 cm Connor G Furlong Work Phone: [facility] 250 DO Work Phone: 03-22-2022 14:06-0400 Body mass index (BMI) [Ratio] 42.17 kg/m2 Connor G Furlong Work Phone: [facility] 250 DO Work Phone: 03-22-2022 14:06-0400 Body surface area Derived from formula 2.19 m2 Connor G Furlong Work Phone: [facility] 250 DO Work Phone: 03-22-2022 14:06-0400 Body weight 114.94 kg Connor G Furlong Work Phone: [facility] 250 DO Work Phone: 03-22-2022 14:06-0400 Diastolic blood pressure 70 mm[Hg] Connor G Furlong Work Phone: [facility] 250 DO Work Phone: 03-22-2022 14:06-0400 Heart rate 47 /min Connor G Furlong Work Phone: [facility] 250 DO Work Phone: 03-22-2022 14:06-0400 Systolic blood pressure 114 mm[Hg] Connor G Furlong Work Phone: [facility] 250 DO Work Phone: 08-16-2021 14:38-0400 Body height 165.1 cm Connor Marinelli Furlong Work Phone: [facility] [employer] 600 DO Work Phone: 08-16-2021 14:38-0400 Body mass index (BMI) [Ratio] 42.53 kg/m2 Connor G Furlong Work Phone: [facility] [employer] 600 DO Work Phone: 08-16-2021 14:38-0400 Body surface area Derived from formula 2.2 m2 Connor Yves Furlong Work Phone: [facility] [employer] 600 DO Work Phone: 08-16-2021 14:38-0400 Body weight 115.94 kg Connor Marinelli Furlong Work Phone: [facility] [employer] 600 DO Work Phone: 08-16-2021 14:38-0400 Diastolic blood pressure 74 mm[Hg] Connor Marnielli Furlong Work Phone: [facility] [employer] 600 DO Work Phone: 08-16-2021 14:38-0400 Heart rate 44 /min Connor Marinelli Furlong Work Phone: [facility] [employer] 600 DO Work Phone: 08-16-2021 14:38-0400 Systolic blood pressure 134 mm[Hg] Connor G Furlong Work Phone: [facility] [employer] 600 DO Work Phone: Encounters Encounter Date Encounter Type Care Provider Facility Start: 09-28-2024 End: 09-28-2024 Telephone encounter Juju Rueda Call Elza haddad Comment on above: critical EKG Start: 09-11-2024 End: 09-11-2024 ambulatory Yehuda HASSAN Facility:CD:[id number] Start: 09-03-2024 End: 09-03-2024 Orders Only Connor Anaya DO [facility] Start: 09-02-2024 End: 09-02-2024 Bamboo flowsheet Nany HO Work Phone: [facility] Start: 09-02-2024 End: 09-02-2024 Bamboo flowsheet Nany Swanson PA Work Phone: [facility] Start: 09-02-2024 End: 09-04-2024 Telephone encounter Isa Triana C[facility] Start: 09-02-2024 End: 09-02-2024 ambulatory NANY SWANSON Not Available Start: 09-02-2024 End: 09-02-2024 Office outpatient visit 25 minutes Nany HO Work Phone: [facility] Comment on above: Arthritis of right k nee (Primary Dx); Acute pain of right knee; Chondromalacia, patella, right Start: 08-28-2024 End: 08-28-2024 Office outpatient visit 25 minutes Carmen Lopez MD Work Phone: [facility] Comment on above: Paroxysmal atrial fi brillation (Multi) (Primary Dx); Non-ischemic cardiomyopathy (Multi); Mixed hyperlipidemia; Sinus bradycardia; High risk medication use; Class 2 obesity; BMI 35.0-35.9,adult; Never smoked tobacco Start: 08-28-2024 End: 08-28-2024 ambulatory [facility] Start: 08-19-2024 End: 08-19-2024 Orders Only Connor Anaya DO Work Phone: [facility] Start: 08-18-2024 End: 08-18-2024 ambulatory [facility] Start: 08-18-2024 End: 08-18-2024 ambulatory CONNOR LEWISCLEM [facility] Start: 08-18-2024 End: 08-18-2024 Office outpatient visit 25 minutes Connor Anaya DO Work [facility] Comment [...] X [place] [facility] Start: 07-29-2024 End: 07-29-2024 ambulatory Radha X Orzech Facility:[facility] Start: 07-29-2024 End: 07-29-2024 Patient encounter procedure Radha X Orzech [facility] Start: 07-15-2024 End: 07-15-2024 ambulatory Radha X Orzech Facility:[facility] Start: 07-01-2024 End: 07-01-2024 ambulatory Radha X Orzech Facility:[facility] Start: 07-01-2024 End: 07-01-2024 Patient encounter procedure Radha X Orzech [facility] Start: 06-10-2024 End: 06-10-2024 ambulatory Radha X Orzech Facility:[facility] Start: 06-10-2024 End: 06-10-2024 Patient encounter procedure Radha X Orzech [facility] Start: 05-20-2024 End: 05-20-2024 ambulatory Radha X Orzech Facility:[facility] Start: 05-20-2024 End: 05-20-2024 Patient encounter procedure Radha X Orzech [facility] Start: 05-16-2024 End: 05-16-2024 ambulatory Yehuda HASSAN Facility:[facility] Start: 05-16-2024 End: 05-16-2024 Patient encounter procedure Yehuda R HASSAN [facility] Start: 03-26-2024 End: 03-26-2024 ambulatory LESVIA KEITA Not Available Start: 03-06-2024 End: 03-06-2024 Office outpatient visit 25 minutes Nick Richardson MD Work Phone: [facility] Comment on above: Mixed hyperlipidemia (Primary Dx); Paroxysmal atrial fibrillation (Multi); Non-ischemic cardiomyopathy (Multi); Never smoked tobacco; BMI 36.0-36.9,adult; Hyperlipidemia, unspecified hyperlipidemia type Start: 03-06-2024 End: 03-06-2024 ambulatory [facility] Start: 02-18-2024 End: 02-18-2024 ambulatory [facility] Start: 02-18-2024 End: 02-18-2024 ambulatory [facility] Start: 12-24-2023 End: 12-24-2023 ambulatory [facility] Start: 12-13-2023 End: 12-13-2023 ambulatory Yehuda HASSAN Facility:[facility] Start: 12-13-2023 End: 12-13-2023 Patient encounter procedure Yehuda HASSAN [facility] Start: 10-26-2023 End: 10-26-2023 ambulatory Yehuda [...] sit 25 minutes Connor Anaya Work Phone: [facility] 250 DO Work Phone: Start: 11-20-2022 Rx Renewal Connor nj Work Phone: [facility] 250 DO Work Phone: Start: 11-03-2022 End: [...] preprocedural laboratory examination DR LESVIA MCCLAIN [facility] Start: 09-05-2022 End: 09-05-2022 Patient encounter procedure Yehuda HASSAN [facility] [place] Start: 09-01-2022 End: 09-02-[address] CONNOR ANAYA Facility:H1 Start: 09-01-2022 End: 09-02-2022 Encounter for preprocedural laboratory examination DR CONNOR ANAYA Facility:H1 Start: 08-31-2022 End: 09-01-[address] CONNOR ANAYA Facility:H1 Start: 08-22-2022 Rx Renewal Connor nj Work Phone: [facility] 250 DO Work Phone: Start: 08-22-2022 End: 08-23-[address] CONNOR ANAYA Facility:H1 Start: 08-17-2022 End: 08-18-[address] CONNOR ANAYA Facility:H1 Start: 08-11-2022 End: 08-11-2022 Lab Drop off DORA ALCAZAR [facility] [place] Start: 08-11-2022 End: 08-11-2022 Patient encounter procedure DORA ALCAZAR [facility] Start: 08-07-2022 End: 08-08-[address] WILLARD SHARMA Facility:H1 Start: 08-01-2022 End: 08-02-[address] WILLARD SHARMA Facility:H1 Start: 07-17-2022 End: 07-18-[address] WILLARD SHARMA Facility:H1 Start: 07-12-2022 End: 07-13-[address] WILLARD SHARMA Facility:H1 Start: 06-30-2022 End: 07-01-[address] WILLARD SHARMA Facility:H1 Start: 06-30-2022 End: 06-30-2022 Patient encounter procedure Yehuda HASSAN [facility] Start: 06-26-2022 End: 06-27-[address] [...] sit 25 minutes Connor Anaya Work Phone: [facility] [employer] 250 DO Work Phone: Start: 03-22-2022 End: 03-23-[address] WILLARD SHARMA Facility:H1 Start: 01-31-2022 ambulatory Connor Anaya Facility: Start: 12-07-2021 Rx Renewal Connor Lewislo ng Work Phone: [facility] [employer] 250 DO Work Phone: Start: 08-16-2021 Office outpatient vi sit 15 minutes [facility] Work Phone: Imaging result normal Connor Marinelli F urlong Work Phone: [facility] [employer] 250 DO Work Phone: Patient encounter status Connor Yves Lewislong [facility]: [facility] Work Phone: Procedures Date Procedure [...] Td Vaccines (6 - Td or Tdap) [employer] Start: 02-20-2033 DTaP/Tdap/Td Vaccine s (3 - Td or Tdap) DTaP/Tdap/Td Vaccines (3 - Td or Tdap) [facility] Start: 12-13-2025 Screening for malignant neoplasm of colon Colon Cancer Screening 5 [facility] Comment on above: Postponed from 04/28 (Not Indicated) Start: 08-27-2025 End: 08-27-2025 Patient encounter procedure 08/27/2025 11:20 AM EDT Office Visit [address] [place] [address] Carmen Lopez MD [address] [facility] [place] [address] [facility] Start: 08-18-2025 Adult BMI Screening Adult BMI Screen ing [facility] Start: 08-18-2025 Depression Screening [facility]ing [facility] Start: 08-18-2025 Fall Risk Screening Fall Risk Screen ing [facility] Start: 08-18-2025 Tobacco Screening Tobacco [facility]ening [facility] Start: 08-05-2025 Screening for malignant neoplasm of breast [facility]ammogram [facility] Start: 03-25-2025 End: 03-25-2025 Patient encounter procedure 03/25/2025 1:00 PM EDT Office Visit [facility] [address] [place] [id number] Jr. Lesvia Mcclain, DO [address] [place] [address] [facility] Start: 02-17-2025 Adult BMI Follow Up Plan Adult BMI Follow Up Plan [facility] Start: 02-16-2025 End: 02-16-2025 Patient encounter procedure 02/16/2025 9:00 AM EDT [facility] [address] [place] [address] Connor Anaya, DO [address], [facility] [address] [facility] Start: 11-04-2024 End: 11-04-2024 Patient encounter procedure 11/04/2024 11:00 AM EST Office Visit [facility] [address] [place] [phone] Jr. Lesvia Mcclain, DO [address] [facility] [address] [place] [address] [facility] Start: 08-28-2024 End: 08-28-2024 Patient encounter procedure 08/28/2024 10:40 AM EDT Office Visit [place] [address] [place] [phone] Carmen Lopez MD [address] [facility] [address] [place] [address] [facility] Start: 07-26-2024 Screening for malignant neoplasm of breast Mammogram [facility] Start: 06-29-2024 COVID-19 Vaccine ( season) COVID-19 Vaccine ( season) [facility] Start: 06-29-2024 COVID-19 Vaccine () COVID-19 Vaccine () [facility] Start: 06-29-2024 COVID-19 Vaccine ( season) COVID-19 Vaccine () [facility] Start: 06-29-2024 Influenza vaccination [facility] Start: 06-21-2024 Medicare Annual Wellness Visit Medicare Annual Wellness Visit [facility] Start: 03-01-2024 COVID-19 Vaccine ( season) COVID-19 Vaccine () [facility] Start: 01-29-2024 FUV, Provider: Nick Richardson, Status: Pen, Time: 11:20 AM FUV, Provider: Nick Richardson, Status: Pen, Time: 11:20 AM [facility] 250 DO Work Phone: Start: 12-06-2022 FUV, Provider: Nick Richardson, Status: Pen, Time: 1:10 PM FUV, Provider: Nick Richardson, Status: Pen, Time: 1:10 PM -[facility] 250 DO Work Phone: Start: 01-31-2022 FUV, Provider: Nick Sarkar, Status: Pen, Time: 2:20 PM FUV, Provider: Nick Sarkar, Status: Pen, Time: 2:20 PM -[facility] 250 DO Work Phone: Start: 2010 RSV High Risk: (Elderly (60+) or Population) (1 - Risk 60-74 years 1-dose series) RSV High Risk: (Elderly (60+) or Population) (1 - Risk 60-74 years 1-dose series) [facility] Start: 2010 RSV patient s and/or patients aged 60+ years (1 - 1-dose 60+ series) RSV patients and/or patients aged 60+ years (1 - 1-dose 60+ series) [facility] Start: 1968 Diabetes mellitus screening Diabetes Screening [facility] Start: 1968 Diabetic foot examination Diabetic Foot Exam [facility] Start: 1968 Hepatitis C screening Hepatitis C Sc reening [facility] Start: 1950 Glaucoma screening Diabetic Op hthalmology Exam [facility] Start: 1950 Lipid panel Lipid Panel [facility] Start: 1950 Medicare Annual Wellness Visit Medicare Annual Wellness Visit (AWV) [facility] Start: 1950 Screening for malignant neoplasm of colon [facility] Start: 1950 Screening for osteoporosis Bone Density Scan [facility] Start: 1950 Thyroid stimulating hormone measurement TSH Level [facility] Immunizations Immunization Date Immunization Notes Care Provider Fa ciliroma 11-01-2023 Influenza, High-dose , Quadrivalent Connor Debbiekeylang DO Work Phone: [facility] 11-01-2023 influenza virus vacc ine, unspecified formulation Connor Debbiekeylaclem DO Work Phone: [facility] 02-20-2023 tetanus toxoid, redu mariano diphtheria toxoid, and acellular pertussis vaccine, adsorbed Yehuda HASSAN [facility] 10-15-2022 Fluzone High-Dose Quadrivalent 0.7 ML Intramuscular Suspension Prefilled Syringe Connor Lewiskeylaclem Work Phone: [facility] 250 DO Work Phone: 10-15-2022 influenza virus vacc ine, unspecified formulation Yehuda HASSAN [facility] 10-15-2022 influenza, high dose seasonal, preservative-free Nick Richardson MD Work Phone: [facility] Work Phone: 04-29-2022 Comirnaty 30 MCG/0.3 ML Intramuscular Suspension Connor G Debbiereggie Work Phone: [facility] 250 DO Work Phone: 04-29-2022 COVID-19, mRNA, LNP- S, PF, 100mcg/0.5mL Dose Connor Anaya DO Work Phone: [facility] 04-29-2022 SARS-CoV-2 mRNA (ymrdokkzqme-qqqx-tjvbbz e) vaccine Yehuda HASSAN [facility] 09-08-2021 influenza virus vacc ine, unspecified formulation Yehuda HASSAN [facility] 08-29-2021 Fluzone High-Dose Quadrivalent 0.7 ML Intramuscular Suspension Prefilled Syringe Connor Anaya Work Phone: [facility] 250 DO Work Phone: 08-29-2021 influenza virus vacc ine, unspecified formulation Yehuda HASSAN [facility] 08-29-2021 influenza, high dose seasonal, preservative-free Nick Richardson MD Work Phone: [facility] Work Phone: 08-29-2021 Pfizer-BioNTech COVI D-19 Vacc 30 MCG/0.3ML Intramuscular Suspension Connor Anaya Work Phone: [facility] 12-23-2020 Pfizer-BioNTech COVI D-19 Vacc 30 MCG/0.3ML Intramuscular Suspension Connor Anaya Work Phone: [facility] 12-01-2020 Pfizer-BioNTech COVI D-19 Vacc 30 MCG/0.3ML Intramuscular Suspension Connor Anaya Work Phone: [facility] 09-13-2020 pneumococcal polysaccharide vaccine, 23 valent Connor G Furlong Work Phone: [facility] 09-03-2020 influenza virus vacc ine, unspecified formulation [email or web address] [facility] 09-03-2020 influenza, high dose seasonal, preservative-free Nick Richardson MD Work Phone: [facility] Work Phone: 09-03-2020 influenza, injectabl e, quadrivalent, contains preservative Connor G Furlong Work Phone: [facility] 600 DO Work Phone: 08-29-2020 influenza virus vacc ine, unspecified formulation [email or web address] [facility] 08-29-2020 influenza, high dose seasonal, preservative-free Connor G Furlong Work Phone: [facility] 250 DO Work Phone: 08-29-2020 influenza, injectabl e, quadrivalent, contains preservative Connor Furlong DO Work Phone: [facility] 08-29-2020 pneumococcal polysaccharide vaccine, 23 valent Connor G Furlong Work Phone: [facility] 08-11-2020 influenza virus vacc ine, unspecified formulation [email or web address] [facility] 08-11-2020 influenza, seasonal, injectable Connor G Furlong Work Phone: [facility] 600 DO Work Phone: 07-29-2020 influenza virus vacc ine, unspecified formulation [email or web address] [facility] 07-29-2020 influenza, seasonal, injectable Connor G Furlong [facility] DO Work Phone: 09-02-2019 influenza virus vacc ine, unspecified formulation [email or web address] [facility] 09-02-2019 influenza, high dose seasonal, preservative-free Connor G Furlong Work Phone: [facility] 600 DO Work Phone: 08-29-2019 influenza virus vacc ine, unspecified formulation Connor G Furlong Work Phone: [facility] 08-29-2019 influenza, seasonal, injectable Connor Furlong DO Work Phone: [facility] 08-11-2019 influenza virus vacc ine, unspecified formulation Yehuda HASSAN [facility] 06-17-2019 zoster vaccine recombinant Connor G Furlong Work Phone: [facility] 05-29-2019 zoster vaccine recombinant Connor G Furlong Work Phone: [facility] 04-15-2019 zoster vaccine recombinant Connor G Furlong Work Phone: [facility] 03-29-2019 zoster vaccine recombinant Connor G Furlong Work Phone: [facility] 08-29-2018 influenza virus vacc ine, unspecified formulation Connor G Furlong Work Phone: [facility] 250 DO Work Phone: 09-27-2017 influenza virus vacc ine, unspecified formulation Yehuda [employer] [facility] 09-27-2017 Influenza, injectabl e, Madin Ese Canine Kidney, preservative free, quadrivalent Connor G Furlong Work Phone: [facility] 600 DO Work Phone: 09-26-2017 influenza virus vacc ine, unspecified formulation Connor G Furlong Work Phone: [facility] 250 DO Work Phone: 10-19-2016 influenza virus vacc ine, unspecified formulation Yehuda HASSAN [facility] 10-19-2016 seasonal influenza, intradermal, preservative free Connor G Furlong Work Phone: [facility] 600 DO Work Phone: 10-06-2016 influenza virus vacc ine, unspecified formulation Yehuda HASSAN [facility] 10-06-2016 influenza, seasonal, injectable, preservative free Connor G Furlong Work Phone: [facility] 600 DO Work Phone: 04-10-2016 pneumococcal conjuga te vaccine, 13 valent Connor G Furlong Work Phone: [facility] 04-06-2016 pneumococcal conjuga te vaccine, 13 valent Yehuda HASSAN [facility] 08-07-2014 influenza virus vacc ine, unspecified formulation Connor G Furlong Work Phone: [facility] 250 DO Work Phone: 08-07-2014 Influenza, High-dose , Quadrivalent Connor Furlong DO Work Phone: [facility] 08-07-2014 influenza, unspecifi ed formulation Yehuda HASSAN [facility] 07-29-2014 influenza virus vacc ine, unspecified formulation Connor Lewislong Work Phone: [facility] 250 DO Work Phone: 07-29-2014 pneumococcal polysaccharide vaccine, 23 valent Connor Lewislong Work Phone: [facility] 10-02-2013 pneumococcal conjuga te vaccine, 13 valent Connor Lewislong Work Phone: [facility] 02-14-2013 zoster vaccine, live Connro Lewisng Work Phone: [facility] 10-29-2012 influenza virus vacc ine, unspecified formulation Connor Lewislong Work Phone: [place] [address] DO Work Phone: 10-29-2012 pneumococcal polysaccharide vaccine, 23 valent Connor Lewislong Work Phone: [place] [address] DO Work Phone: 10-29-2010 pneumococcal polysaccharide vaccine, 23 valent Nick Richardson MD Work Phone: [facility] Work Phone: 02-21-2010 pneumococcal polysaccharide vaccine, 23 valent Connor Lewislong Work Phone: [facility] 02-21-2010 tetanus toxoid, redu mariano diphtheria toxoid, and acellular pertussis vaccine, adsorbed Connor Lewislong Work Phone: [facility] 12-20-2009 novel influenza-H1N1 -09, preservative-free, injectable Connor Lewislong Work Phone: [facility] 600 DO Work Phone: 11-29-2009 novel influenza-H1N1 -09, preservative-free, injectable Connor Anaya Work Phone: [facility] 250 DO Work Phone: 09-06-1999 TD(adult) unspecifie d formulation; Translations: [Td(adult) unspecified formulation] Connor Anaya Work Phone: [facility] 09-06-1999 tetanus and diphther ia toxoids, adsorbed, preservative free, for adult use (2 Lf of tetanus toxoid and 2 Lf of diphtheria toxoid) Connor Anaya DO Work Phone: [facility] influenza virus vacc ine, unspecified formulation Connor Anaya Work Phone: [facility] 250 DO Work Phone: Comment on above: 2010Jul 2012 pneumococcal polysaccharide vaccine, 23 valent Connor Anaya Work Phone: [facility] 250 DO Work Phone: Comment on above: 2010 Payers Date Payer Category Payer Private Health Insurance [facility] TWIN MARTINAHMACIE Figueroa [id number] 5 2015 Managed Care Other (unspecified) [facility] [id number] 2015 Medicare [id number] .[id number] 2015 Miscellaneous or Other [facility] [id number] .[id number] 5 2015 Unknown 2015 Unknown [id number] 1959 Medicare [id number] 1959 Unknown [id number] 1950 Unknown [id number] 2.16.840.1.202128.3.579 .2.356 1950 Unknown [id number] 2.16.840.1.342268.3.579 .2.356 1950 Unknown [id number] 2.16.840.1.467381.3.579 .2.356 1950 Unknown [id number] 2.16.840.1.386612.3.579 .2.593 1950 Unknown [id number] 2.16.840.1.404439.3.579 .2.593 1950 Unknown [id number] 2.16.840.1.154357.3.579 .2.593 1950 Unknown [id number] 2.16.840.1.766067.3.579 .2.593 1950 Unknown [id number] 2.16.840.1.539497.3.579 .2.593 1950 Unknown [id number] 2.16.840.1.700715.3.579 .2.593 1950 Unknown [id number] 2.16.840.1.085092.3.579 .2.593 1950 Unknown [id number] 2.16.840.1.316364.3.579 .2 1950 Unknown [id number] 2.16.840.1.874260.3.579 .2.593 1950 Unknown [id number] 2.16.840.1.590791.3.579 .259 1950 Unknown [id number] 2.16.840.1.387241.3.579 .2. 1950 Unknown [id number] 2.16.840.1.062209.3.579 .23 1950 Unknown [id number] 2.16.840.1.771949.3.579 .2.593 1950 Unknown [id number] 2.16.840.1.171599.3.579 .2.593 1950 Unknown [id number] 2.16.840.1.475910.3.579 .2.593 1950 Unknown [id number] 2.16.840.1.106946.3.579 .2.593 1950 Unknown [id number] 2.16.840.1.976723.3.579 .2.593 1950 Unknown [id number] 2.16.840.1.236266.3.579 .2.593 1950 Unknown [id number] 2.16.840.1.438797.3.579 .2.593 1950 Unknown [id number] 2.16.840.1.541930.3.579 .2.593 1950 Unknown [id number] 2.16.840.1.320004.3.579 .2.593 1950 Unknown [id number] 2.16.840.1.203453.3.579 .2.593 1950 Unknown [id number] 2.16.840.1.394878.3.579 .2.593 1950 Unknown [id number] 2.16.840.1.544469.3.579 .2.593 1950 Unknown [id number] 2.16.840.1.332887.3.579 .2.593 1950 Unknown [id number] 2.16.840.1.474027.3.579 .2.593 1950 Unknown [id number] 2.16.840.1.820973.3.579 .2.593 1950 Unknown [id number] 2.16.840.1.183592.3.579 .2.593 1950 Unknown [id number] 2.16.840.1.989641.3.579 .2.593 1950 Unknown [id number] 2.16.840.1.929353.3.579 .2.593 1950 Unknown [id number] 2.16.840.1.674067.3.579 .2.593 1950 Unknown [id number] 2.16.840.1.593989.3.579 .2.593 1950 Unknown [id number] 2.16.840.1.047703.3.579 .2.593 1950 Unknown [id number] 2.16.840.1.816330.3.579 .2.593 1950 Unknown [id number] 2.16.840.1.366511.3.579 .2.593 1950 Unknown [id number] 2.16.840.1.872441.3.579 .2.727 1950 Unknown [id number] 2.16.840.1.606541.3.579 .2.727 1950 Unknown [id number] 2.16.840.1.939140.3.579 .2.72 1950 Unknown [id number] 2.16.840.1.949313.3.579 .2.72 1950 Unknown [id number] 2.16.840.1.061049.3.579 .2.727 1950 Unknown [id number] 2.16.840.1.387910.3.579 .2.72 1950 Unknown [id number] 2.16.840.1.739145.3.579 .2.72 1950 Unknown [id number] 2.16.840.1.894087.3.579 .2. 1950 Unknown [id number] 2.16.840.1.460847.3.579 .2. 1950 Unknown [id number] 2.16.840.1.205391.3.579 .2.128 1950 Unknown [id number] 2.16.840.1.733142.3.579 .2.128 1950 Unknown [id number] 2.16.840.1.517560.3.579 .2.128 1950 Unknown [id number] 2.16.840.1.778605.3.579 .2.1285 1950 Unknown [id number] 2.16.840.1.445013.3.579 .2.1259 1950 Unknown [id number] 2.16.840.1.846091.3.579 .2.1259 1950 Unknown [id number] 2.16.840.1.848104.3.579 .2.1259 1950 Unknown [id number] 2.16.840.1.416994.3.579 .2.1259 1950 Unknown [id number] 2.16.840.1.545728.3.579 .2.727 1950 Unknown [id number] 2.16.840.1.363973.3.579 .2.727 1950 Unknown [id number] 2.16.840.1.844100.3.579 .2.727 1950 Unknown [id number] 2.16.840.1.097608.3.579 .2.1244 1950 Unknown [id number] 2.16.840.1.520897.3.579 .2.1244 1950 Unknown [id number] 2.16.840.1.199417.3.579 .2.1244 Social History Date Type Detail Facility Start: 02-20-2023 End: 03-06-2024 Never a smoker Never a smoker [facility] 600 DO Work Phone: Start: 12-28-2021 End: 11-13-2022 Tobacco smoking status Never smoked tobacco (finding) [facility] Tobacco smoking status Never [facility] Start: 02-20-2023 End: 03-06-2024 Sex Assigned At Female [facility] Start: 11-13-2022 End: 08-17-2023 Tobacco use and exposure Smokeless tobacco non-user [facility] Work Phone: Start: 03-06-2024 Alcoholic beverage intake Life time non-drinker (finding) [facility] Work Phone: Start: 1950 Sex assigned at Not on file [facility] Work Phone: Start: 02-25-2024 End: 08-28-2024 Exposure to SARS-CoV-2 (event) Not sure [facility] Start: 08-18-2024 Alcoholic beverage intake Ex-drinker (finding) [facility] Do you belong to any clubs or organizations such as voodoo groups, [employer], [employer] or athletic groups, or school groups? No [facility] Are you now , , , , never or living with a partner? [facility] How often to you hav e a drink containing alcohol? Never [facility] Do you feel stress - tense, restless, nervous, or anxious, or unable to sleep at night because your mind is troubled all the time - these days [OSQ] Only a little [facility] Start: 06-02-2015 Sex Female (finding) [facility] Functional Status Date Assessment Result Facility 08-24-2022 Functional Status N/A [facility] 06-30-2022 Functional Status N/A [facility] Clinical Notes 06-30-2022 to 09-28-2024 Telephone Encounter - Juju Van - 09/28/2024 8:45 PM ESTTelephone Encounter - Juju Van - 09/28/2024 8:45 PM ESTTelephone Encounter - Juju Van - 09/28/2024 8:45 PM EST Note Date & Type Note Facility 09-28-2024 Miscellaneous Notes Contract: [id number] Suki travis critical EKG report Relayed info to Dr Anaya on cell and transferred documented in this encounter [facility] 09-28-2024 Telephone encounter Note Contract: [id number] Suki travis critical EKG report [facility] 09-28-2024 Telephone encounter Note Relayed info to Dr Anaya on cell and transferred [facility] 09-03-2024 History of Present illness Narrative Patient has severe OA of the knee. Handicap parking placard printed documented in this encounter [facility] 09-02-2024 History of Present illness Narrative [...] KNEE TODAY EPIC 09/02/24 XRAYS 03/26/24 [facility] NO MRI NO MDP / PREDNISONE S/P [...] SILVER ADULT 50+ PO) as directed Orally [place]-3 Fatty Acids (OMEGA-3 FISH OIL PO) Oral [...] Use: Not At Risk (02/20/2023) Received from [employer], [employer] AUDIT[employer]C Frequency of Alcohol Consumption: Never Average [...] requiring urgent evaluation. documented in this encounter [facility] 09-02-2024 Miscellaneous Notes Patient called to renew her handicap placard. 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 Okay, it is ready documented in this encounter [facility] 09-02-2024 Telephone encounter Note Patient called to renew her handicap placard. 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 [facility] [employer] [facility] 09-02-2024 Telephone encounter Note Okay, it is ready [facility] [employer] [facility] 08-28-2024 History of Present illness Narrative [...] once daily., Disp: 90 tablet, Rfl: 3 imksnufg-kci-iehd-FA-vit K-lut (Centrum Silver Women) 8 mg iron-400 mcg-50 mcg tablet, Take 1 tablet by mouth once daily., Disp: , Rfl: omega-3 fatty acids-fish oil (One-Per-Day [place]-3) 684-1,200 mg capsule, Take 1 capsule (1,200 [...] discussion and plan. documented in this encounter [facility] Work Phone: 08-28-2024 Instructions Hollie Gleason [...] up 7 months documented in this encounter [facility] Work Phone: 08-18-2024 History of Present [...] gradually lost weight documented in this encounter [facility] 07-29-2024 Evaluation + Plan note Diagnostic Tests PendingUroVysion Fish and Urine Cyto ([facility]) 07/29/24 [facility] 07-15-2024 Note Patient Education Urology Kidney Stones [...] these instructions at home: Medicines ? Take puqz-rdc-aajvovg and prescription medicines only as told by [...] provider. Document Revised: 06/08/2023 Document Reviewed: 06/08/2023 [employer] Patient Education ? 2023 [employer] Hematuria, Adult Hematuria is blood in [...] identify the cause (more content not included)... [facility] 03-06-2024 History of Present illness Narrative [...] once daily., Disp: 90 tablet, Rfl: 3 cjkeknhc-poz-tpto-FA-vit K-lut (Centrum Silver Women) 8 mg iron-400 mcg-50 mcg tablet, Take 1 tablet by mouth once daily., Disp: , Rfl: omega-3 fatty acids-fish oil (One-Per-Day [place]-3) 684-1,200 mg capsule, Take 1 capsule (1,200 [...] discussion and plan. documented in this encounter [facility] Work Phone: 03-06-2024 Instructions Ivett Mcpherson [...] of your visit. documented in this encounter [facility] Work Phone: 09-05-2022 Hospital Discharge instructions [...] 100 degrees. Follow Up Care 08/22/2022 14:01:27 With:Yeuhda HASSAN Address: [facility] [address] [place] [address]- Business (1) When:03/05/2023 12:06:31 [facility] 06-30-2022 Hospital Discharge instructions Patient Education 06/30/2022 12:01:44 Kidney Stones, Ywcm-yr-Keww Kidney Stones Kidney stones are rock-like masses [...] Follow these instructions at home: Medicines Take klve-rdz-ebetmyx and prescription medicines only as told by [...] 04/02/2009 Document Revised: 03/02/2020 Document Reviewed: 03/02/2020 [employer] Patient Education 2020 [employer]. Follow Up Care 12/28/2021 15:15:51 With:Yehuda HASSAN MD, URL Address: [address] [place], [place] [id number]- When: Unknown [facility] Evaluation + Plan note Future Appointments Appointment Date:03/02/2023 11:00:00 AM Scheduled Provider:Yehuda HASSAN MD Location:[facility] Appointment Type:URO Office Visit [facility] Evaluation + Plan note Future Appointments Appointment Date:03/02/2023 11:00:00 AM Scheduled Provider:Yehuda HASSAN MD Location:[facility] Appointment Type:URO Office Visit Diagnostic Tests PendingUrine Culture 08/11/22 [facility] Evaluation + Plan note Future Appointments Appointment Date:03/02/2023 11:00:00 AM Scheduled Provider:Yehuda HASSAN MD Location:[facility] Appointment Type:URO Office Visit Diagnostic Tests PendingUroVysion Fish and Urine Cyto ([facility]) 09/05/22 [facility] Evaluation + Plan note Future Appointments Appointment Date:05/16/2024 10:45:00 AM Scheduled Provider:Yehuda HASSAN MD Location:[facility] Appointment Type:URO Office Visit [facility] Evaluation + Plan note Future Appointments Appointment Date:05/20/2024 11:00:00 AM Scheduled Provider:RAAD Back APRN Radha X Location:[facility] Appointment Type:URO Office Visit [facility] Evaluation + Plan note Future Appointments Appointment Date:06/10/2024 03:00:00 PM Scheduled Provider:RAAD Back APRN Radha X Location:[facility] Appointment Type:URO Office Visit [facility] Evaluation + Plan note Future Appointments Appointment Date:07/01/2024 02:30:00 PM Scheduled Provider:RAAD Back APRN Radha X Location:[facility] Appointment Type:URO Office Visit [facility] Evaluation note Diagnosis Mixed hyperlipidemia- Primary Paroxysmal atrial fibrillation (Multi) Atrial fibrillation Non-ischemic cardiomyopathy (Multi) Other primary cardiomyopathies Never smoked tobacco BMI 36.0-36.9,adult Hyperlipidemia, unspecified hyperlipidemia type documented in this encounter [facility] Work Phone: Evaluation note* Diagnosis Primary hypertension- Primary Unspecified essential hypertension Hyperlipidemia, unspecified hyperlipidemia type Acquired hypothyroidism Unspecified hypothyroidism Osteoarthritis of multiple joints, unspecified osteoarthritis type 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 With guideline directed therapy in the yarsanism of maintenance of sinus rhythm her symptoms [...] merits of diet exercise and weight loss. [facility] [employer] DO Work Phone: History of Present illness [...] the merits of diet and weight loss. [facility] [employer] DO Work Phone: Hospital course Narrative No data available for this section [facility] Hospital Discharge instructions No data available for this section [facility] InstructionsNot on filedocumented in this encounter [facility] filedocumented in this encounter [facility] on filedocumented in this encounter [facility] No data available for this section [facility] [place]rill Chief Complaint * I am doing [...] ECG 12 Lead Nick Richardson MD [address] [facility], [place] [address] [place] [id number] Referral ID Status Reason Start Date Expiration Date V isits Requested Visits Authorized [id number] Authorized 03/06/2024 03/06/2025 1 1 Specialty Diagnoses / Procedures Referred By Isa t Referred To Contact Cardiology Diagnoses Non-ischemic cardiomyopathy (Multi) Procedures Follow Up In Cardiology Nick Richardson MD [address] [facility] [address], [address] [address] Carmen Lopez MD [address] [facility], [facility] [address] [place] [address] Referral ID Status Reason Start Date Expiration Date V isits Requested Visits Authorized [id number] Authorized 03/06/2024 03/06/2025 1 1 Additional Source Comments INFORMATION SOURCE (unrecogn ized section and content) DATE CREATED AUTHOR 06/26/2022 [facility] DATE CREATED AUTHOR AUTHOR'S ORGANIZ ATION 12/07/2022 [facility] DATE CREATED AUTHOR AUTHOR'S ORGANIZ ATION 12/07/2022 [employer] DATE CREATED AUTHOR AUTHOR'S ORGANIZ ATION 03/09/2023 [facility] DATE CREATED AUTHOR AUTHOR'S ORGANIZ ATION 07/17/2024 [facility] DATE CREATED AUTHOR AUTHOR'S ORGANIZ ATION 08/07/2024 [facility] DATE CREATED AUTHOR AUTHOR'S ORGANIZ ATION 08/19/2024 [facility] DATE CREATED AUTHOR AUTHOR'S ORGANIZ ATION 08/20/2024 [facility] DATE CREATED AUTHOR AUTHOR'S ORGANIZ ATION 09/08/2024 [facility] EPIC DATE CREATED AUTHOR AUTHOR'S ORGANIZ ATION 09/19/2024 [facility] DATE CREATED AUTHOR AUTHOR'S ORGANIZ ATION 09/25/2024 [facility] 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 Service Sales Representative Team (unrecognized sect ion and content) 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 Relationship Specialty Start Date End Date Connor Anaya DO [address] [facility] [place] [address] PCP - General 10/29/19 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 Relationship Specialty Start Date End Date Jaclyn Connor Yves [address], [place] [address] PCP - General Family Medicine 11/13/22 Desiree Jansen [facility] Nurse - [employer] 07/01/24 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 Relationship Specialty Start Date End Date Jaclyn Connor YvesDO [address], [place] [address] PCP - General Family Medicine 11/13/22 Desiree Jansen [facility] Nurse - [employer] 07/01/24 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 Relationship Specialty Start Date End Date Connor Anaya DO [address], [place] [address] PCP - General Family Medicine 11/13/22 Desiree Jansen [facility] Nurse - [employer] 07/01/24 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 Relationship Specialty Start Date End Date Connor Anayacarmen PCP - General 10/29/19 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 Relationship Specialty Start Date End Date Connor Anaya MD [address], [place] [address] PCP - General Family Medicine 03/26/24 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 Relationship Specialty Start Date End Date Connor Anaya MD [address], [place] [address] PCP - General Family Medicine 03/26/24 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 Relationship Specialty Start Date End Date Connor Anaya DO [address], [place] [address] PCP - General Family Medicine 11/13/22 Desiree Jansen [facility] Nurse - [employer] 07/01/24 Reason for Visit (unrecogniz ed section and content) Reason Comments Follow-up 2mo Specialty Diagnoses / Procedures Referred By Contac t Referred To Contact Cardiology Diagnoses Paroxysmal atrial fibrillation (Multi) Procedures Follow Up In Cardiology Nick Richardson MD [address] [facility] [address] [facility], [address] [address] Referral ID Status Reason Start Date Expiration Date V isits Requested Visits Authorized [id number] Authorized 12/24/2023 12/23/2024 1 1 Reason Comments Follow-up Reason Comments Follow-up 5m Specialty Diagnoses / Procedures Referred By Contac t Referred To Contact Cardiology Diagnoses Non-ischemic cardiomyopathy (Multi) Procedures Follow Up In Cardiology Nick Richardson MD Ibrahim, Hassan M, MD [address] [facility] 2, [facility] [address] [place] [address] Phone: tel: fax: Referral ID Status Reason Start Date Expiration Date V isits Requested Visits Authorized [id number] Authorized 03/06/2024 03/06/2025 1 1 Reason Comments [...] BE BASED ON THE PRIMARY CLINICAL RECORDS. [facility]. provides no warranty or guarantee of the accuracy or completeness of information in this document.
--- NOTE | 2024-09-29 01:34 | PC.NURSE ---
pt wears glasses for reading but does not have them with her at this time.
--- NOTE | 2024-09-29 06:00 | ECG_ITS ---
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
[2024-09-29 06:20] LABS: Hematocrit 29.6 % (36.0-48.0); Hemoglobin 9.5 g/dL (12.0-16.0); Mean Corpuscular HGB Conc 32.1 g/dL (29.9-35.2); Mean Corpuscular Hemoglobin 28.4 pg (26.7-34.0); Mean Corpuscular Volume 88.4 fL (81.0-99.0); Mean Platelet Volume 9.2 fL (9.5-13.5); Platelet Count 253 10^3/uL (150-450); Red Blood Count 3.35 10^6/uL (4.20-5.40); Red Cell Distribution Width 13.9 % (11.0-15.0); White Blood Count 4.5 10^3/uL (4.0-11.0)
[2024-09-29 06:45] LABS: Anion Gap 11.8; BUN Creatinine Ratio 15.1; Calcium 9.4 mg/dL (8.5-10.1); Carbon Dioxide 28.1 mmol/L (21.0-32.0); Chloride 107 mmol/L (98-107); Estimated GFR (African America >60 (>=60 mL/min/1.73m^2); Estimated GFR (Non-African Ame 51 (>=60 mL/min/1.73m^2); Glucose 88 mg/dL (74-106); Potassium 3.9 mmol/L (3.5-5.1); Sodium 143 mmol/L (136-145)
[2024-09-29 06:53] LABS: Troponin I High Sensitivity 32.8 pg/mL (4.0-51.3)
[2024-09-29] MEDS: RIVAROXABAN 10 MG TABLET 20 MG PO (08:35)
[2024-09-29] MEDS: CHOLECALCIFEROL (VITAMIN D3) 25 MCG/1,000 UNITS TABLET PO (10:17)
[2024-09-29] MEDS: LISINOPRIL 5 MG TABLET 2.5 MG PO (10:17)
[2024-09-29] MEDS: ALLOPURINOL 300 MG TABLET PO (10:17)
[2024-09-29] MEDS: LEVOTHYROXINE SODIUM 112 MCG TABLET PO (10:17)
[2024-09-29] MEDS: CETIRIZINE HCL 10 MG TABLET PO (10:18)
[2024-09-29] MEDS: FISH OIL 1,000 MG CAPSULE 1000 MG PO (10:18)
[2024-09-29] MEDS: MULTIVITAMIN TABLET 1 TAB PO (10:18)
[2024-09-29] MEDS: OXYBUTYNIN CHLORIDE 5 MG TAB XL 10 MG PO (10:18)
--- NOTE | 2024-09-29 10:54 | CM.NOTE ---
Rounds made with Dr. Gómez, discussed with pt admission diagnosis and plan of care. Cardiology will see pt for further recommendations.
--- NOTE | 2024-09-29 11:26 | CM.NOTE ---
Medicare Outpatient Observation Notice discussed with pt, pt verbalizes understanding and signs paper. Original given to pt and copy placed on pt's chart.
--- NOTE | 2024-09-29 11:53 | P.HP_ITS ---
HPI H&P: HPI History of Present Illness Chief complaint: NON SUSTAINED VENTRICULAR TACHYCARDIA Narrative: 74-year-old female with history of paroxysmal A-fib was discharged about 2 weeks ago with a 30-day Holter monitor after she was found to have nonsustained ventricular tachycardia and sinus bradycardia during surgery and in PACU. Patient was under anesthesia for ureteral stent placement and lithotripsy which she was able to successfully undergo and was monitored postoperatively. 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 Patient was in her usual statue of health yesterday when she got a call from a Holter Monitor Rep who instructed her to go to nearing ED as she had 14 beats of Vtach. She remained asymptomatic and did not experience any symptoms. Work up in ED including electrolytes was normal. She has been in sinus elisabeth since admission. Patient has no active symptoms to offer. Cardiology consult is pending. Opioid HPI Opioid Management Most Recent Pain and Opioid Data: Last Pain Assessment 09/29/24 11:53 Last ORT Total Score 0 09/29/24 01:26 09/29/24 Last ORT Risk Category Low Risk 09/29/24 01:26 09/29/24 PFSH [facility] Medical History (Updated 09/29/24 @ 11:56 by Shaikh Dalia MD) Bradycardia ?R00.1 - Bradycardia, unspecified (ICD-10) Afib ?I48.91 - Unspecified atrial fibrillation (ICD-10) Arthritis ?M19.90 - Unspecified osteoarthritis, unspecified site (ICD-10) Palpitations ?R00.2 - Palpitations (ICD-10) Extremity edema ?R60.0 - Localized edema (ICD-10) Chronic kidney disease ?N18.9 - Chronic kidney disease, unspecified (ICD-10) Encounter for gastric sleeve procedure ?Z76.89 - Persons encountering health services in other specified circumstances (ICD-10) S/P extracorporeal shock wave therapy ?Z98.890 - Other specified postprocedural states (ICD-10) UTI (urinary tract infection) ?N39.0 - Urinary tract infection, site not specified (ICD-10) Urinary urgency ?R39.15 - Urgency of urination (ICD-10) Urinary frequency ?R35.0 - Frequency of micturition (ICD-10) Hydronephrosis ?N13.30 - Unspecified hydronephrosis (ICD-10) Ureteral stone ?N20.1 - Calculus of ureter (ICD-10) Stress incontinence ?N39.3 - Stress incontinence (female) (male) (ICD-10) Nocturia ?R35.1 - Nocturia (ICD-10) Hypothyroidism (acquired) ?E03.9 - Hypothyroidism, unspecified (ICD-10) Hypertension ?I10 - Essential (primary) hypertension (ICD-10) Enterobacter sepsis ?A41.59 - Other Gram-negative sepsis (ICD-10) Diabetes ?E11.9 - Type 2 diabetes mellitus without complications (ICD-10) Cholelithiasis ?K80.20 - Calculus of gallbladder without cholecystitis without obstruction (ICD-10) Anticoagulated ?Z79.01 - intermodal customer service (current) use of anticoagulants (ICD-10) Hyperlipidemia ?E78.5 - Hyperlipidemia, unspecified (ICD-10) Nonischemic cardiomyopathy ?I42.8 - Other cardiomyopathies (ICD-10) Mixed hyperlipidemia ?E78.2 - Mixed hyperlipidemia (ICD-10) Paroxysmal atrial fibrillation ?I48.0 - Paroxysmal atrial fibrillation (ICD-10) Hematuria ?R31.9 - Hematuria, unspecified (ICD-10) Kidney stones ?N20.0 - Calculus of kidney (ICD-10) Surgical History (Updated 07/28/24 @ 14:17 by Nancy Sanders NP) History of colonoscopy ?Z98.890 - Other specified postprocedural states (ICD-10) S/P ureteral stent placement ?Z96.0 - Presence of urogenital implants (ICD-10) History of hernia repair ?Z98.890 - Other specified postprocedural states (ICD-10) ?Z87.19 - Personal history of other diseases of the digestive system (ICD-10) History of hysterectomy ?Z90.710 - Acquired absence of both cervix and uterus (ICD-10) H/O cystoscopy ?Z98.890 - Other specified postprocedural states (ICD-10) Family History (Updated 07/28/24 @ 13:53 by Nancy Sanders NP) Other Family history of cancer Family history of diabetes mellitus Family history of myocardial infarction Social History (Updated 07/28/24 @ 14:12 by Nancy Sanders NP) Within the past year, how often did you have a drink containing alcohol: never Score interpretation: A score less than 3 is consistent with normal alcohol consumption. Smoking status: Never smoker Non-prescribed substance use: denies use Highest level of school completed/degree received: high school graduate Little interest or pleasure in doing things: not at all Feeling down, depressed, or hopeless: not at all Meds Home Medications and Allergies Home Medications ?Medication ?Instructions ?Recorded ?Confirmed ?Type acetaminophen 650 mg 650 mg PO Q12H PRN pain 07/28/24 09/29/24 History tablet,extended release (Tylenol Arthritis Pain) allopurinol 300 mg tablet 300 mg PO DAILY 07/28/24 09/29/24 History calcium 600 mg-D3 800 unit-mag11 1 tab PO DAILY 07/28/24 09/29/24 History 50 it-qden-dtcnok-octavia-s.borat tablet (Caltrate 600-D Plus Minerals) cholecalciferol (vitamin D3) 25 25 mcg PO DAILY 07/28/24 09/29/24 History mcg (1,000 unit) capsule fexofenadine 180 mg tablet 180 mg PO DAILY 07/28/24 09/29/24 History ([facility]) glucosam 750 mg-chondroi 100 1 tab PO DAILY 07/28/24 09/29/24 History mg-hyalur 1.65 mg-CF borate 108 mg tablet ([employer]) krill 1 cap PO DAILY 07/28/24 09/29/24 History uct-vv8-dwj-oob-oj4-qrw-astax 1,500 mg-165 mg-67.5 mg capsule (Krill Oil ([place] 3 and 6)) lisinopril 2.5 mg tablet 2.5 mg PO DAILY 07/28/24 09/29/24 History lovastatin 10 mg tablet 10 mg PO DAILY 07/28/24 09/29/24 History ajqfhuwc-ayjc-gzxz 8 mg-folic 400 1 tab PO DAILY 07/28/24 09/29/24 History mcg-K 50 mcg-lutein 300 mcg tablet (Central-[employer] Women's Mature) rivaroxaban 20 mg tablet (Xarelto) 20 mg PO Q24H 07/28/24 09/29/24 History mirabegron 50 mg tablet,extended 50 mg PO DAILY #20 tabs 09/11/24 09/29/24 Rx release 24 hr (Myrbetriq) levothyroxine 112 mcg tablet 112 mcg PO QAM 09/29/24 09/29/24 History Allergies Allergy/AdvReac Type Severity Reaction Status Date / Time ciprofloxacin (From Cipro) Allergy Rash Verified 09/28/24 22:06 corn Allergy Unknown Verified 09/28/24 22:06 Sulfa (Sulfonamide Allergy Rash Verified 09/28/24 22:06 Antibiotics) Exam Constitutional Vital Signs, click to edit/add: Last Vital Signs Temp 97.8 F 09/29/24 07:47 Pulse 62 09/29/24 11:52 Resp 20 09/29/24 07:47 BP 111/68 09/29/24 07:47 Pulse Ox 98 09/29/24 07:47 O2 Del Method Room Air 09/29/24 07:47 Documenting provider has reviewed patient's vital signs: yes Common normals: no apparent distress and oriented x3 General appearance: cooperative HENMT Common normals: normocephalic and head/scalp atraumatic Head and scalp: normocephalic and atraumatic Eye Common normals: conjunctivae normal and no scleral icterus Conjunctiva: conjunctiva(e) normal Respiratory Common normals: normal respiratory effort and clear to auscultation bilaterally Effort & inspection: able to speak in complete sentences Auscultation: clear to auscultation bilaterally Cardio Common normals: S1 normal heart sound and S2 normal heart sound Rate: bradycardic Heart sounds: S1 normal and S2 normal GI Common normals: Normal to inspection, nondistended, normoactive bowel sounds present, soft to palpation, non-tender and no hepatosplenomegaly Palpation: soft and no hepatosplenomegaly Extremity Common normals: no clubbing, cyanosis or edema Neuro Common normals: oriented x3, moves all extremities and no focal motor deficits Psych Common normals: mental status grossly normal, denies hallucinations, denies homicidal ideation and denies suicidal ideation Results Labs Labs: Short CBC 09/28/24 09/29/24 Range/Units 22:20 05:35 WBC 5.7 4.5 (4.0-11.0) 10^3/uL Hgb 9.4 L 9.5 L (12.0-16.0) g/dL Hct 29.3 L 29.6 L (36.0-48.0) % Plt Count 264 253 (150-450) 10^3/uL BMP 09/28/24 09/29/24 22:20 05:35 Sodium 142 143 Potassium 3.9 3.9 Chloride 106 107 Carbon Dioxide 25.8 28.1 BUN 20.0 H 16.0 Creatinine 1.29 H 1.06 H Glucose 116 H 88 Calcium 9.8 9.4 Assessment and Plan Assessment and Plan (1) Non-sustained ventricular tachycardia: Assessment and Plan: Asymptomatic and stable. No hemodynamic compromise. No event on tele since admission. Not on AVN blockade. Cardiology consulted pending. ECHO 09/21 - mild systolic dysfunction, no sig valvular pathology, no WMA. (2) Bradycardia: Assessment and Plan: Asymptomatic. Not on AV britta blockage. (3) Paroxysmal atrial fibrillation: Assessment and Plan: In NSR. On Xarelto for stroke px. (4) Hypothyroidism (acquired): Assessment and Plan: TSH too low, given her hx of Afib. Reduce dose to 100 mcg. (5) Hypertension: Assessment and Plan: Stable BP. c/w lisinopril Qualifiers: Hypertension type: primary hypertension Qualified Code(s): I10 - Essential (primary) hypertension (6) Hyperlipidemia: Assessment and Plan: C/w lovastatin. Qualifiers: Hyperlipidemia type: unspecified Qualified Code(s): E78.5 - Hyperlipidemia, unspecified
--- NOTE | 2024-09-29 12:23 | PM.CACN ---
History of Present Illness History of Present Illness Consult date: 09/29/24 Requesting physician: Shaikh Dalia Chief complaint: NON SUSTAINED VENTRICULAR TACHYCARDIA Narrative: 74 yo woman with a known h/o 'non ischemic cardiomyopathy' who sees [facility] in [facility], PAF and HTN Was admitted to the hospital 2 weeks ago for kidney stone, need for lithotripsy; developed NSVT and PAF with bradycardia during the procedure. The procedure was aborted and a ureteric stent placed. She was prescribed antibiotics for a UTI. A 30-day monitor was placed; she was called and asked to come into the ER by her PCP for a 14-beat run of 'NSVT' - I do not have access to the strips. She has palpitations, but no dizziness, lightheadedness or syncope. No exertional CP, no SOB. No orthopnea, sleeps in a recliner for years. No PND. She does have chronic LE edema. Had a stress test 'years ago', no cardiac caths per her recollection. 12 lead EKG shows NSR with PVCs Echo 09/11/2024 LV systolic function lower normal limits; EF 50% RV mildly dilated with normal systolic function Moderate biatrial dilatation Mild MR, TR Moderately elevated RVSP 53 mmHg No effusion Review of Systems ROS Status of ROS 10 or more systems reviewed and unremarkable except as noted in history and below [facility] Medical History (Updated 09/29/24 @ 11:56 by Shaikh Dalia MD) Bradycardia ?R00.1 - Bradycardia, unspecified (ICD-10) Afib ?I48.91 - Unspecified atrial fibrillation (ICD-10) Arthritis ?M19.90 - Unspecified osteoarthritis, unspecified site (ICD-10) Palpitations ?R00.2 - Palpitations (ICD-10) Extremity edema ?R60.0 - Localized edema (ICD-10) Chronic kidney disease ?N18.9 - Chronic kidney disease, unspecified (ICD-10) Encounter for gastric sleeve procedure ?Z76.89 - Persons encountering health services in other specified circumstances (ICD-10) S/P extracorporeal shock wave therapy ?Z98.890 - Other specified postprocedural states (ICD-10) UTI (urinary tract infection) ?N39.0 - Urinary tract infection, site not specified (ICD-10) Urinary urgency ?R39.15 - Urgency of urination (ICD-10) Urinary frequency ?R35.0 - Frequency of micturition (ICD-10) Hydronephrosis ?N13.30 - Unspecified hydronephrosis (ICD-10) Ureteral stone ?N20.1 - Calculus of ureter (ICD-10) Stress incontinence ?N39.3 - Stress incontinence (female) (male) (ICD-10) Nocturia ?R35.1 - Nocturia (ICD-10) Hypothyroidism (acquired) ?E03.9 - Hypothyroidism, unspecified (ICD-10) Hypertension ?I10 - Essential (primary) hypertension (ICD-10) Enterobacter sepsis ?A41.59 - Other Gram-negative sepsis (ICD-10) Diabetes ?E11.9 - Type 2 diabetes mellitus without complications (ICD-10) Cholelithiasis ?K80.20 - Calculus of gallbladder without cholecystitis without obstruction (ICD-10) Anticoagulated ?Z79.01 - long term care social worker (current) use of anticoagulants (ICD-10) Hyperlipidemia ?E78.5 - Hyperlipidemia, unspecified (ICD-10) Nonischemic cardiomyopathy ?I42.8 - Other cardiomyopathies (ICD-10) Mixed hyperlipidemia ?E78.2 - Mixed hyperlipidemia (ICD-10) Paroxysmal atrial fibrillation ?I48.0 - Paroxysmal atrial fibrillation (ICD-10) Hematuria ?R31.9 - Hematuria, unspecified (ICD-10) Kidney stones ?N20.0 - Calculus of kidney (ICD-10) Surgical History (Updated 07/28/24 @ 14:17 by Nancy Sanders NP) History of colonoscopy ?Z98.890 - Other specified postprocedural states (ICD-10) S/P ureteral stent placement ?Z96.0 - Presence of urogenital implants (ICD-10) History of hernia repair ?Z98.890 - Other specified postprocedural states (ICD-10) ?Z87.19 - Personal history of other diseases of the digestive system (ICD-10) History of hysterectomy ?Z90.710 - Acquired absence of both cervix and uterus (ICD-10) H/O cystoscopy ?Z98.890 - Other specified postprocedural states (ICD-10) Family History (Updated 07/28/24 @ 13:53 by Nancy Sanders NP) Other Family history of cancer Family history of diabetes mellitus Family history of myocardial infarction Social History (Updated 07/28/24 @ 14:12 by Nancy Sanders NP) Within the past year, how often did you have a drink containing alcohol: never Score interpretation: A score less than 3 is consistent with normal alcohol consumption. Smoking status: Never smoker Non-prescribed substance use: denies use Highest level of school completed/degree received: high school graduate Little interest or pleasure in doing things: not at all Feeling down, depressed, or hopeless: not at all Meds Home Medications and Allergies Home Medications ?Medication ?Instructions ?Recorded ?Confirmed ?Type acetaminophen 650 mg 650 mg PO Q12H PRN pain 07/28/24 09/29/24 History tablet,extended release (Tylenol Arthritis Pain) allopurinol 300 mg tablet 300 mg PO DAILY 07/28/24 09/29/24 History calcium 600 mg-D3 800 unit-mag11 1 tab PO DAILY 07/28/24 09/29/24 History 50 qx-mnao-gepxbj-octavia-s.borat tablet (Caltrate 600-D Plus Minerals) cholecalciferol (vitamin D3) 25 25 mcg PO DAILY 07/28/24 09/29/24 History mcg (1,000 unit) capsule fexofenadine 180 mg tablet 180 mg PO DAILY 07/28/24 09/29/24 History (Hannah Allergy) glucosam 750 mg-chondroi 100 1 tab PO DAILY 07/28/24 09/29/24 History mg-hyalur 1.65 mg-CF borate 108 mg tablet (Move Free [place]) krill 1 cap PO DAILY 07/28/24 09/29/24 History yot-gy2-rec-gvu-cm1-vsc-astax 1,500 mg-165 mg-67.5 mg capsule (Krill Oil ([place] 3 and 6)) lisinopril 2.5 mg tablet 2.5 mg PO DAILY 07/28/24 09/29/24 History lovastatin 10 mg tablet 10 mg PO DAILY 07/28/24 09/29/24 History ekeqaaip-gavc-ujdm 8 mg-folic 400 1 tab PO DAILY 07/28/24 09/29/24 History mcg-K 50 mcg-lutein 300 mcg tablet (Central-Kim Women's Mature) rivaroxaban 20 mg tablet (Xarelto) 20 mg PO Q24H 07/28/24 09/29/24 History mirabegron 50 mg tablet,extended 50 mg PO DAILY #20 tabs 09/11/24 09/29/24 Rx release 24 hr (Myrbetriq) levothyroxine 112 mcg tablet 112 mcg PO QAM 09/29/24 09/29/24 History Allergies Allergy/AdvReac Type Severity Reaction Status Date / Time ciprofloxacin (From Cipro) Allergy Rash Verified 09/28/24 22:06 corn Allergy Unknown Verified 09/28/24 22:06 Sulfa (Sulfonamide Allergy Rash Verified 09/28/24 22:06 Antibiotics) Exam Constitutional Vital Signs, click to edit/add: Last Vital Signs Temp 97.8 F 09/29/24 07:47 Pulse 62 09/29/24 11:52 Resp 20 09/29/24 07:47 BP 111/68 09/29/24 07:47 Pulse Ox 98 09/29/24 07:47 O2 Del Method Room Air 09/29/24 07:47 Results Labs and Meds Lab results: CBC 09/28/24 09/29/24 Range/Units 22:20 05:35 WBC 5.7 4.5 (4.0-11.0) 10^3/uL RBC 3.30 L 3.35 L (4.20-5.40) 10^6/uL Hgb 9.4 L 9.5 L (12.0-16.0) g/dL Hct 29.3 L 29.6 L (36.0-48.0) % Plt Count 264 253 (150-450) 10^3/uL Neut # (Auto) 3.3 (1.4-6.5) 10^3/uL Lymph # (Auto) 1.6 (1.2-3.8) 10^3/uL [place] # (Auto) 0.5 (0.3-0.8) 10^3/uL Eos # (Auto) 0.3 (0.0-0.7) 10^3/uL Baso # (Auto) 0.1 (0.0-0.1) 10^3/uL Comprehensive Metabolic Panel 09/28/24 09/29/24 Range/Units 22:20 05:35 Sodium 142 143 (136-145) mmol/L Potassium 3.9 3.9 (3.5-5.1) mmol/L Chloride 106 107 (98-107) mmol/L Carbon Dioxide 25.8 28.1 (21.0-32.0) mmol/L BUN 20.0 H 16.0 (7.0-18.0) mg/dL Creatinine 1.29 H 1.06 H (0.55-1.02) mg/dL Glucose 116 H 88 (74-106) mg/dL Calcium 9.8 9.4 (8.5-10.1) mg/dL Intake and Output 09/28/24 09/29/24 09/29/24 23:59 07:59 15:59 Intake Total 500 / 500 240 / 240 Output Total 325 / 325 300 / 300 Balance 175 / 175 -60 / -60 Intake: Oral 240 / 240 IV 500 / 500 0.9 % Sodium Chloride 500 ml @ 500 / 500 500 mls/hr IV .Q1H ONE Rx#: [id number] Output: Urine 325 / 325 300 / 300 Other: Weight 92.079 kg 94.5 kg Assessment and Plan Assessment and Plan (1) Non-sustained ventricular tachycardia: (2) Bradycardia: (3) Paroxysmal atrial fibrillation: (4) Hypothyroidism (acquired): (5) Hypertension: Qualifiers: Hypertension type: primary hypertension Qualified Code(s): I10 - Essential (primary) hypertension (6) Hyperlipidemia: Qualifiers: Hyperlipidemia type: unspecified Qualified Code(s): E78.5 - Hyperlipidemia, unspecified (7) Nonischemic cardiomyopathy: (8) Hematuria: (9) Kidney stones: (10) Anticoagulated: (11) Diabetes: (12) Extremity edema: Plan 1. Routine labs; trend Troponins, check TSH, free T4, electrolytes and correct 2. Monitor H&H and consider PRBCs as clinically indicated 3. Given lower normal limits EF% and NSVT, prudent to rule out ischemia - would recommend a Lexiscan stress test 4. GDMT for h/o cardiomyopathy should included a BBlocker, a RAAS inhibitor/ARNI, an SGLT2i particularly given DM +/- spironolactone; will defer to her refrigerator room clerk 5. If stress test shows high-risk findings, she will benefit from coronary angiography when feasible given OAC, recent UTI/presence of a ureteric stone 6. If non ischemic, add BBlocker to reduce ventricular ectopy and treat all potential precipitating factors as feasible (pain, fluid and elctrolytes, infection etc....) 7. Continue 30-day event monitor and f/u with her refrigerator room clerk asd an outpatient; she may need further investigations including an EP study if NSVT persists Thank you for the consultation Pio Lemos MD [facility] Cardiovascular Medicine
[2024-09-29] MEDS: ATORVASTATIN CALCIUM 10 MG TABLET PO (20:57)
[2024-09-30] VITALS (13 sets, daily range): BP systolic 107–122; BP diastolic 59–64; PULSE 39–62; TEMP 36.4–36.6; O2SAT 97–98
--- NOTE | 2024-09-30 | PC.NURSE ---
Patient made NPO at this time
[2024-09-30] MEDS: LEVOTHYROXINE SODIUM 112 MCG TABLET 100 MCG PO (05:54)
--- NOTE | 2024-09-30 08:00 | NM_ITS ---
Patient Name: MIKY NOLEN MR#: [id number] : 1950 Exam Date: 09/30/2024 Ordering Doctor: SHAIKH Joaquín LI . RADIOLOGY REPORT PROCEDURE: NM ROSE MARIE PERF SPECT REST STR COMPARISON: None. INDICATIONS: Low EF, NSVT TECHNIQUE: Exam Description: Stress/Rest one day protocol gated SPECT Rest Imagin.1 mCi Tc-99m Cardiolite IV on 09/30/2024 Stress Imaging 30.0 mCi Tc-99m Cardiolite IV on 09/30/2024 Exercise Protocol: 0.4 mg Lexiscan given IV Heart Rate (bpm): Rest: 54 Max: 95 PMHR: 65 Blood Pressure: Rest: 126/62 Max: 126/62 Symptoms: Rest and peak stress ECG findings were pending and the exercise portion of the study was pending per attending physician Dr. DOBBINS . For more details please see separate cardiac stress test report. FINDINGS: QUALITY OF STUDY: PERFUSION DEFECT: LOCATION: Basal inferior. Mid-anterior. Mid-inferior. Apical inferior. [place]. SIZE: Large (5 or more segments). SEVERITY: Severe. TYPE: Persistent. WALL MOTION: Mild hypokinesis: LV SIZE: Enlarged; EDV 151 mL. TID / TCD: None; 0.9 LVEF: Normal. Calculated EF 60%. SUMMARY: Myocardial perfusion imaging study has ABNORMAL findings. CONCLUSION: 1. Large fixed defects in the anterior and inferior dorado, LAD and RCA distributions 2. No redistribution to suggest reversible ischemia 3. Dilated left ventricle with end-diastolic volume of 151 milliliters 4. Pending exercise test results Dictated by: Ankit Sharma MD on 09/30/2024 at 14:38 Approved by: Ankit Sharma MD on 09/30/2024 at 14:40
--- NOTE | 2024-09-30 11:06 | CM.NOTE ---
Rounds made with Dr. Gómez, pt having Lexiscan stress test today. Pt is possible discharge to home after stress test, pt denies any CP.
--- NOTE | 2024-09-30 12:01 | PC.NURSE ---
Nursing Note Cardiac Stress Test Reviewed: Medication, allergies and patient history reviewed. Stress Test: [x ] Patient tolerated stress test well. [ ] Patient unable to tolerate walking on treadmill. Switched to Lexiscan stress test. [ ] No chest pain noted per patient [x ] Chest pain that resolved prior to leaving stress lab. [ x] No dyspnea noted. [ ] Dyspnea that resolved prior to leaving stress lab. [x ] Patient left stress lab asymptomatic and hemodynamically stable. [ ] Patient taken to the Emergency Room due to non-resolving symptoms following stress test. [ ] Patient achieved target heart rate. [ ] Patient unable to achieve target heart rate. [ ] Aminophylline administered as reversal agent to Lexiscan (Regadenoson). [ ] Nitro administered. Nursing Comments:
[2024-09-30] MEDS: REGADENOSON 0.4 MG/5 ML SYRINGE IV (12:02)
[2024-09-30] MEDS: OXYBUTYNIN CHLORIDE 5 MG TAB XL 10 MG PO (13:54)
[2024-09-30] MEDS: CHOLECALCIFEROL (VITAMIN D3) 25 MCG/1,000 UNITS TABLET PO (13:54)
[2024-09-30] MEDS: CETIRIZINE HCL 10 MG TABLET PO (13:55)
[2024-09-30] MEDS: LISINOPRIL 5 MG TABLET 2.5 MG PO (13:55)
[2024-09-30] MEDS: MULTIVITAMIN TABLET 1 TAB PO (13:55)
[2024-09-30] MEDS: RIVAROXABAN 10 MG TABLET 20 MG PO (13:55)
[2024-09-30] MEDS: ALLOPURINOL 300 MG TABLET PO (13:55)
[2024-09-30] MEDS: FISH OIL 1,000 MG CAPSULE 1000 MG PO (13:55)
--- NOTE | 2024-09-30 15:27 | P.DS_ITS ---
DS: Providers Provider Date of admission: 09/29/24 00:48 Primary care physician: CORNEL ANAYA Admitting clinician: Shaikh Dalia Attending physician on admission: Shaikh Dalia Consults: 09/29/24 07:00 Consult to Cardiology Routine Reason for consultation: Arrhythmia Has provider been notified: No Attending physician on discharge: Shaikh Dalia Discharging clinician: Shaikh Dalia Anticipated date of discharge: 09/30/24 DS: Diagnosis Discharge Diagnosis (1) Non-sustained ventricular tachycardia: (2) Bradycardia: (3) Paroxysmal atrial fibrillation: (4) Hypothyroidism (acquired): (5) Hypertension: Qualifiers: Hypertension type: primary hypertension Qualified Code(s): I10 - Essent ial (primary) hypertension (6) Hyperlipidemia: Qualifiers: Hyperlipidemia type: unspecified Qualified Code(s): E78.5 - Hyperlipidemia, unspecified (7) Nonischemic cardiomyopathy: (8) Hematuria: (9) Kidney stones: (10) Anticoagulated: (11) Diabetes: (12) Extremity edema: DS: Summary Hospital Course Hospital Course: 74-year-old female with history of paroxysmal A-fib was discharged about 2 weeks ago with a 30-day Holter monitor after she was found to have nonsustained ventricular tachycardia and sinus bradycardia during surgery and in PACU. Patient was under anesthesia for ureteral stent placement and lithotripsy which she was able to successfully undergo and was monitored postoperatively. Cardiology was consulted previous admission but patient preferred to have workup done as an outpatient by her own audiometrist so she was discharged with recommendation to gloria Foster and she went home with a 30 day holter monitor. Patient was in her usual statue of [facility] when she got a call from a Holter Monitor Rep who [facility] she had 14 beats of Vtach. She remained asymptomatic and did not experience any symptoms. Work up in ED including electrolytes was normal. She has been in sinus elisabeth since admission. Patient has no active symptoms to offer. Pt was seen by Cardiology who recommended Lexiscan. Patient underwent Lexiscan today. She has remained asymptomatic, no sig events on tele except for sinus elisabeth. Unable to give BB due to bradycardia. I will switch Lisinopril to Losartan 50 mg. Before discharge, we will put Holter monitor back on and she will be made an appt with [facility] cardiology in 1-2 weeks. Status at Discharge Functional status at discharge: independent ambulation Overall status at discharge: patient is back to baseline Time Spent with Patient Time attestation: Total time spent providing and/or coordinating discharge services: Time spent: greater than 30 minutes Exam Constitutional Vital Signs, click to edit/add: Last Vital Signs Temp 97.5 F L 09/30/24 14:00 Pulse 54 L 09/30/24 14:00 Resp 18 09/30/24 14:00 BP 107/62 09/30/24 14:00 Pulse Ox 98 09/30/24 14:00 O2 Del Method Room Air 09/30/24 14:00 Documenting provider has reviewed patient's vital signs: yes Common normals: no apparent distress and oriented x3 General appearance: cooperative Respiratory Common normals: normal respiratory effort and clear to auscultation bilaterally Effort & inspection: able to speak in complete sentences Auscultation: clear to auscultation bilaterally Cardio Common normals: S1 normal heart sound and S2 normal heart sound Rate: bradycardic Heart sounds: S1 normal and S2 normal Extremity Common normals: no clubbing, cyanosis or edema Neuro Common normals: oriented x3, moves all extremities and no focal motor deficits Psych Common normals: mental status grossly normal, denies hallucinations, denies homicidal ideation and denies suicidal ideation Discharge Plan Discharge Disposition: Home, Self-Care Condition: Good Discharge Medications: New losartan 50 mg tablet 50 mg PO DAILY Qty: 30 0RF levothyroxine 100 mcg tablet 100 mcg PO DAILY Qty: 30 0RF Continued allopurinol 300 mg tablet 300 mg PO DAILY Caltrate 600-D Plus Minerals 600 mg calcium- 800 unit-50 mg tablet 1 tab PO DAILY Central-Kim Women's Mature 8 mg iron-400 mcg-50 mcg tablet 1 tab PO DAILY lovastatin 10 mg tablet 10 mg PO DAILY Xarelto 20 mg tablet 20 mg PO Q24H cholecalciferol (vitamin D3) 25 mcg (1,000 unit) capsule 25 mcg PO DAILY acetaminophen [Tylenol Arthritis Pain] 650 mg tablet extended release 650 mg PO Q12H PRN (Reason: pain) fexofenadine [Hannah Allergy] 180 mg tablet 180 mg PO DAILY Move Free Joint Health 750 mg-100 mg- 1.65 mg-108 mg tablet 1 tab PO DAILY Krill Oil ([place] 3 and 6) 1,500-165-67.5 mg capsule 1 cap PO DAILY mirabegron [Myrbetriq] 50 mg tablet extended release 24 hr 50 mg PO DAILY Qty: 20 0RF Discontinued levothyroxine 112 mcg tablet 112 mcg PO QAM lisinopril 2.5 mg tablet 2.5 mg PO DAILY Activity: increase activity as tolerated Diet: advance to your usual diet Print Language: Faroese Forms: Portal Instructions Follow Up Appointments: F/u with PCP in one week F/u with Cardiology in 1-2 weeks
--- NOTE | 2024-10-02 15:44 | CM.DCFOLLOWU ---
Person spoke with: Rochelle Fuentes How are you feeling? Feeling pretty good How is your pain? none Did you understand your discharge instructions?yes Do you have any questions about your discharge instructions?no Were you given any prescriptions at discharge?yes Were you able to get your prescriptions filled?The pharmacy should have them tonight and she will get them up tonight Do you understand how to take your medications as ordered? no questions Do you have any questions about your follow up appointment and do you plan to keep your follow up appointment? Made appointment w Dr Jean Baptiste for 10/13 & also has followup appt for cardiology Is there anything else that you would like to discuss? no Questions/Comments/Concerns/Other: none
== END 2024-09-30 16:49 | disposition home or self-care (01) ==
LOC: ER 09-29 00:01 → MS 09-29 01:18
PROVIDERS: Registered Nurse; Admitting Provider Internal Medicine; Emergency Provider Student in an Organized Health Care Education/Training Program; PCP Family Medicine; Visit Provider Internal Medicine
DX: I47.29 Other ventricular tachycardia (principal); R00.1 Bradycardia, unspecified; I48.0 Paroxysmal atrial fibrillation; E03.9 Hypothyroidism, unspecified; I10 Essential (primary) hypertension; E78.5 Hyperlipidemia, unspecified; E11.9 Type 2 diabetes mellitus without complications; R31.9 Hematuria, unspecified; I42.8 Other cardiomyopathies; N20.0 Calculus of kidney; R60.9 Edema, unspecified; I51.89 Other ill-defined heart diseases; Z79.899 Other long term (current) drug therapy; Z79.01 Long term (current) use of anticoagulants
CPT/HCPCS: 36415; 71045; 78452; 80048; 83735; 83880; 84484; 85025; 85027; 93005; 93017; 99285; A9500; G0378; J2785

== ENCOUNTER 2024-10-07 07:52 | Outpatient (OUT) | payer MEDICARE, OTHER, SELFPAY | END 2024-10-07 07:53 | disposition home or self-care (01) | LOC: PST 07:53 | PROVIDERS: PCP Family Medicine; Visit Provider Urology | DX: Z01.818 Encounter for other preprocedural examination (principal); N20.0 Calculus of kidney ==

== ENCOUNTER 2024-10-07 14:12 | Day surgery (SDC) | payer MEDICARE, OTHER, SELFPAY ==
[2024-10-07 14:18] VITALS: BP 143/79; PULSE 64; TEMP 36.6; O2SAT 64; BMI 34.6
[2024-10-07 15:10] VITALS: BP 138/65; PULSE 58; O2SAT 99
[2024-10-07] MEDS: LIDOCAINE 2% JELLY 10 ML UR (15:10)
--- NOTE | 2024-10-07 15:19 | P.URON_ITS ---
Urology Surgery Operative Note Operative Note Procedure Date: 10/07/24 Time Out Performed: yes Pre-op Diagnosis: Status post ureteroscopic stone manipulation and right stent placement Post-op Diagnosis: same as pre-op Procedures performed: 1. Cystoscopy. 2. Right stent removal. Primary Surgeon: Sy Avitia Complications: None Estimated blood loss (mL): 15 Findings: None encrusted stent. Bleeding bladder. Indications for Procedures: This lady had ureteroscopic stone manipulation and stent placement almost a month ago. She has been having bloody urine ever since having the stent placed. She now presents for cystoscopy and right stent removal. She has signed informed consent Detailed description of Procedure: The patient was kept on her rfort bidwell bed and brought into the endoscopy suite. She was put in the supine position in the frog-leg position. Genitalia were sterilely prepped and draped in the usual fashion. 2% lidocaine gel was passed per urethra. Timeout was done by all parties in the room. I then passed a flexible cystoscope per urethra and into the bladder. Visibility was very poor due to her hematuria. Eventually we could pass the grasping forceps and grasped the stent and the stent was then removed. She was then discharged to home. The plan is that she will repeat a metabolic workup and follow-up will be in 3 months to review the data.
[2024-10-07 15:23] VITALS: BP 149/65; PULSE 59; O2SAT 100
== END 2024-10-07 15:35 | disposition home or self-care (01) ==
PROVIDERS: PCP Family Medicine; Visit Provider Urology
PROC: (CPT 52310; principal; 2024-10-07 14:45)
DX: Z46.6 Encounter for fitting and adjustment of urinary device (principal); R31.9 Hematuria, unspecified; E11.9 Type 2 diabetes mellitus without complications; I25.10 Atherosclerotic heart disease of native coronary artery without angina pectoris; I10 Essential (primary) hypertension; Z87.442 Personal history of urinary calculi; R41.3 Other amnesia; Z90.710 Acquired absence of both cervix and uterus; Z98.84 Bariatric surgery status; Z79.01 Long term (current) use of anticoagulants
CPT/HCPCS: 52310

== ENCOUNTER 2025-01-02 13:56 | Observation (INO) | payer MEDICARE, OTHER, SELFPAY ==
[2025-01-02] VITALS (23 sets, daily range): BP systolic 110–147; BP diastolic 63–72; PULSE 44–70; TEMP 36.6–36.7; O2SAT 94–99; BMI 35.0
--- NOTE | 2025-01-02 14:13 | ECG_ITS ---
[facility] Test Date: 2025-01-02 Pat Name: MIKY NOLEN Department: Room: - Gender: Female Parole Officer: : 1950 Requested By: 0929 Order Number: [id number] Reading MD: LESVIA DECKER M.D. Measurements Intervals [place] Rate: 47 P: 30 WI: 186 QRS: 44 QRSD: 104 T: 45 QT: 442 QTc: 404 Interpretive Statements 1130 Sinus bradycardia [address] depression 9140 abnormal rhythm ECG Compared to ECG 09/29/2024 04:11:55 ST (T wave) deviation now present Ventricular premature complex(es) no longer present T-wave abnormality no longer present Electronically Signed On 01-02-2025 17:48:42 EST by LESVIA DECKER M.D.
--- NOTE | 2025-01-02 14:14 | ED.CHESTPAI1 ---
HPI - Chest Pain General Chief Complaint: Chest Pain Stated Complaint: CHEST PAIN Time Seen by Provider: 01/02/25 14:08 Source: patient Mode of arrival: walk-in Limitations: no limitations History of Present Illness HPI narrative: Patient is a 74-year-old female with a history of A-fib, cardiomyopathy who presents to the emergency department for sharp sudden onset of chest pain in the chest and back that began 2 hours ago at rest. Patient states she felt short of breath at the time of onset of chest pain. She states the pain and shortness of breath lasted about 5 minutes. Her symptoms have completely resolved at this time. She states she had a stress test about 5 months ago that was abnormal so the patient was supposed to follow-up for additional testing with [facility] cardiology. She has not had any other recent illness. No medications taken prior to arrival. She denies any history of coronary artery disease, previous UT or stroke. She has no stents in her heart. She is not a smoker. Related Data Home Medications ?Medication ?Instructions ?Recorded ?Confirmed acetaminophen 650 mg 650 mg PO Q12H PRN pain 07/28/24 10/06/24 tablet,extended release (Tylenol Arthritis Pain) allopurinol 300 mg tablet 300 mg PO DAILY 07/28/24 10/06/24 calcium 600 mg-D3 800 unit-mag11 1 tab PO DAILY 07/28/24 10/06/24 50 tf-sxnl-pjszsj-octavia-s.borat tablet (Caltrate 600-D Plus Minerals) cholecalciferol (vitamin D3) 25 25 mcg PO DAILY 07/28/24 10/06/24 mcg (1,000 unit) capsule fexofenadine 180 mg tablet 180 mg PO DAILY 07/28/24 10/06/24 ([facility]) glucosam 750 mg-chondroi 100 1 tab PO DAILY 07/28/24 10/06/24 mg-hyalur 1.65 mg-CF borate 108 mg tablet ([facility] Reclip.It) krill 1 cap PO DAILY 07/28/24 10/06/24 xpr-bz0-fss-gng-fw0-rav-astax 1,500 mg-165 mg-67.5 mg capsule (Krill Oil ([place] 3 and 6)) lovastatin 10 mg tablet 10 mg PO DAILY 07/28/24 10/06/24 zhwdmgzr-qssl-mcjp 8 mg-folic 400 1 tab PO DAILY 07/28/24 10/06/24 mcg-K 50 mcg-lutein 300 mcg tablet ([facility]) rivaroxaban 20 mg tablet (Xarelto) 20 mg PO Q24H 07/28/24 10/06/24 lisinopril 2.5 mg tablet 2.5 mg PO DAILY 10/02/24 10/02/24 potassium bicarbonate-citric acid 25 meq PO BID 10/02/24 10/02/24 25 mEq effervescent tablet (Effer-K) levothyroxine 100 mcg tablet 125 mcg PO DAILY 10/07/24 10/07/24 Previous Rx's ?Medication ?Instructions ?Recorded mirabegron 50 mg tablet,extended 50 mg PO DAILY #20 tabs 09/11/24 release 24 hr (Myrbetriq) losartan 50 mg tablet 50 mg PO DAILY #30 tabs 09/30/24 Allergies Allergy/AdvReac Type Severity Reaction Status Date / Time ciprofloxacin (From Cipro) Allergy Rash Verified 01/02/25 14:01 corn Allergy Unknown Verified 01/02/25 14:01 Sulfa (Sulfonamide Allergy Rash Verified 01/02/25 14:01 Antibiotics) Review of Systems ROS Constitutional Denies: fever or chills Ears, nose, mouth, and throat Denies: throat pain or nasal congestion Cardiovascular Reports: chest pain Respiratory Reports: shortness of breath Gastrointestinal Denies: abdominal pain, nausea or vomiting Musculoskeletal Reports: back pain; Denies: neck pain, extremity pain or extremity swelling Integumentary/Breast Denies: rash Neurological Denies: numbness in extremities or weakness in extremities Hematologic/Lymphatic Reports: easy bruising and easy bleeding [facility] Medical History (Updated 01/02/25 @ 16:18 by VIC Carreon) Bradycardia ?R00.1 - Bradycardia, unspecified (ICD-10) Afib ?I48.91 - Unspecified atrial fibrillation (ICD-10) Arthritis ?M19.90 - Unspecified osteoarthritis, unspecified site (ICD-10) Palpitations ?R00.2 - Palpitations (ICD-10) Extremity edema ?R60.0 - Localized edema (ICD-10) Chronic kidney disease ?N18.9 - Chronic kidney disease, unspecified (ICD-10) Encounter for gastric sleeve procedure ?Z76.89 - Persons encountering health services in other specified circumstances (ICD-10) S/P extracorporeal shock wave therapy ?Z98.890 - Other specified postprocedural states (ICD-10) UTI (urinary tract infection) ?N39.0 - Urinary tract infection, site not specified (ICD-10) Urinary urgency ?R39.15 - Urgency of urination (ICD-10) Urinary frequency ?R35.0 - Frequency of micturition (ICD-10) Hydronephrosis ?N13.30 - Unspecified hydronephrosis (ICD-10) Ureteral stone ?N20.1 - Calculus of ureter (ICD-10) Stress incontinence ?N39.3 - Stress incontinence (female) (male) (ICD-10) Nocturia ?R35.1 - Nocturia (ICD-10) Hypothyroidism (acquired) ?E03.9 - Hypothyroidism, unspecified (ICD-10) Hypertension ?I10 - Essential (primary) hypertension (ICD-10) Enterobacter sepsis ?A41.59 - Other Gram-negative sepsis (ICD-10) Diabetes ?E11.9 - Type 2 diabetes mellitus without complications (ICD-10) Cholelithiasis ?K80.20 - Calculus of gallbladder without cholecystitis without obstruction (ICD-10) Anticoagulated ?Z79.01 - extermination supervisor (current) use of anticoagulants (ICD-10) Hyperlipidemia ?E78.5 - Hyperlipidemia, unspecified (ICD-10) Nonischemic cardiomyopathy ?I42.8 - Other cardiomyopathies (ICD-10) Mixed hyperlipidemia ?E78.2 - Mixed hyperlipidemia (ICD-10) Paroxysmal atrial fibrillation ?I48.0 - Paroxysmal atrial fibrillation (ICD-10) Hematuria ?R31.9 - Hematuria, unspecified (ICD-10) Kidney stones ?N20.0 - Calculus of kidney (ICD-10) Surgical History (Updated 07/28/24 @ 14:17 by Nancy Sanders NP) History of colonoscopy ?Z98.890 - Other specified postprocedural states (ICD-10) S/P ureteral stent placement ?Z96.0 - Presence of urogenital implants (ICD-10) History of hernia repair ?Z98.890 - Other specified postprocedural states (ICD-10) ?Z87.19 - Personal history of other diseases of the digestive system (ICD-10) History of hysterectomy ?Z90.710 - Acquired absence of both cervix and uterus (ICD-10) H/O cystoscopy ?Z98.890 - Other specified postprocedural states (ICD-10) Family History (Updated 10/02/24 @ 15:36 by Elif Arauz) Other Family history of cancer Family history of diabetes mellitus Family history of myocardial infarction Heart disease Social History Within the past year, how often did you have a drink containing alcohol: never Score interpretation: A score less than 3 is consistent with normal alcohol consumption. Smoking status: Never smoker Non-prescribed substance use: denies use Highest level of school completed/degree received: high school graduate Little interest or pleasure in doing things: not at all Feeling down, depressed, or hopeless: not at all Exam Narrative Exam Narrative: Gen.: Awake, alert, in no distress Head: Normocephalic, atraumatic ENT: Moist mucous membranes Respiratory: No respiratory distress, lungs clear bilaterally Cardio: Bradycardia Gastrointestinal: Abdomen is soft, nondistended and nontender to palpation Extremities: Moves extremities equally Psych: Normal mood and affect Neuro: No focal neuro deficit Skin: Warm, dry, intact Constitutional Vital Signs, click to edit/add: Last Vital Signs Temp 98.1 F 01/02/25 14:01 Pulse 46 L 01/02/25 15:30 Resp 18 01/02/25 15:30 BP 144/63 H 01/02/25 14:01 Pulse Ox 97 01/02/25 15:30 O2 Del Method Room Air 01/02/25 14:26 Course Vital Signs Vital signs: Vital Signs Temperature 98.1 F 01/02/25 14:01 Pulse Rate 52 L 01/02/25 14:01 Respiratory Rate 16 01/02/25 14:01 Blood Pressure 144/63 H 01/02/25 14:01 Temperature 98.1 F 01/02/25 14:01 Pulse Rate 46 L 01/02/25 15:30 Respiratory Rate 18 01/02/25 15:30 Blood Pressure 144/63 H 01/02/25 14:01 Pulse Oximetry 97 01/02/25 15:30 Oxygen Delivery Method Room Air 01/02/25 14:26 MDM - Chest Pain MDM Narrative Medical decision making narrative: Patient is chest pain-free in the ER, she has risk factors of obesity, hypertension, cardiomyopathy. Laboratory studies reviewed and noted including 2 troponins which are unremarkable and the patient is admitted for cardiac monitoring and continued cycling of troponin. She is hemodynamically stable at admission. She was noted to be bradycardic, this is normal for her. Stable at time of admission. SUPERVISED APC VISIT, PHYSICIAN ATTESTATION: Based on the medical record the care appears appropriate. ? Medical Records Data Attestation: I reviewed the patient's medical records. Lab Data Attestation: I reviewed the patient's lab results. Labs: Lab Results 01/02/25 01/02/25 Range/Units 14:19 15:44 WBC 6.5 (4.0-11.0) 10^3/uL RBC 4.30 (4.20-5.40) 10^6/uL Hgb 8.8 L (12.0-16.0) g/dL Hct 30.4 L (36.0-48.0) % MCV 70.7 L (81.0-99.0) fL MCH 20.5 L (26.7-34.0) pg MCHC 28.9 L (29.9-35.2) g/dL RDW 19.2 H (11.0-15.0) % Plt Count 229 (150-450) 10^3/uL MPV 9.4 L (9.5-13.5) fL Neut % (Auto) 72.8 (43.0-75.0) % Lymph % (Auto) 19.2 L (20.5-60.0) % [place] % (Auto) 5.7 (1.7-12.0) % Eos % (Auto) 1.2 (0.9-7.0) % Baso % (Auto) 0.6 (0.2-2.0) % Neut # (Auto) 4.8 (1.4-6.5) 10^3/uL Lymph # (Auto) 1.3 (1.2-3.8) 10^3/uL [place] # (Auto) 0.4 (0.3-0.8) 10^3/uL Eos # (Auto) 0.1 (0.0-0.7) 10^3/uL Baso # (Auto) 0.0 (0.0-0.1) 10^3/uL Abs Immat Gran (auto) 0.03 (0.00-0.03) 10^3/uL Imm/Tot Granulo (auto) 0.5 (0.0-0.5) % PT 11.8 H (9.0-11.6) sec INR 1.13 Sodium 140 (136-145) mmol/L Potassium 3.9 (3.5-5.1) mmol/L Chloride 105 (98-107) mmol/L Carbon Dioxide 27.5 (21.0-32.0) mmol/L Anion Gap 11.4 BUN 14.0 (7.0-18.0) mg/dL Creatinine 0.93 (0.55-1.02) mg/dL Est GFR ( Amer) >60 (>=60 mL/min/1.73m^2) Est GFR (Non-Af Amer) 59 L (>=60 mL/min/1.73m^2) BUN/Creatinine Ratio 15.1 Glucose 109 H (74-106) mg/dL Calcium 9.6 (8.5-10.1) mg/dL Magnesium 2.1 (1.8-2.4) mg/dL Total Bilirubin 0.4 (0.2-1.0) mg/dL AST 14 L (15-37) U/L ALT 16 (14-59) U/L Alkaline Phosphatase 126 H (46-116) U/L Troponin I High Sens 20.5 19.5 (4.0-51.3) pg/mL NT-Pro-B Natriuret Pep 296.0 (<=900.0) pg/mL Total Protein 7.1 (6.4-8.2) g/dL Albumin 3.3 L (3.4-5.0) g/dL Globulin 3.8 g/dL Albumin/Globulin Ratio 0.9 Imaging Data Chest x-ray: Attestation: I have reviewed the pertinent imaging results. ECG Data Attestation: I personally reviewed and interpreted this ECG as follows: (Cardio rate of 47, minimal ST depression with no acute ST elevation. No ectopy. No significant change from EKG 09/29/2024. EKG reviewed by attending physician) Heart Score History: Slightly/Non-Suspicious ECG: NS Repolarization Age: >65 years Risk Factors: >3 Risk Factors/ HX of CAD:2 Troponin: <Normal Limit Total Heart Score Recommendations & Risks:: 5 Discharge Plan Discharge Chief Complaint: Chest Pain Patient Disposition: Admitted as Observation Time of Disposition Decision: 16:18 Prescriptions / Home Meds: No Action losartan 50 mg tablet 50 mg PO DAILY Qty: 30 0RF allopurinol 300 mg tablet 300 mg PO DAILY Caltrate 600-D Plus Minerals 600 mg calcium- 800 unit-50 mg tablet 1 tab PO DAILY [facility] 8 mg iron-400 mcg-50 mcg tablet 1 tab PO DAILY lovastatin 10 mg tablet 10 mg PO DAILY Xarelto 20 mg tablet 20 mg PO Q24H cholecalciferol (vitamin D3) 25 mcg (1,000 unit) capsule 25 mcg PO DAILY acetaminophen [Tylenol Arthritis Pain] 650 mg tablet extended release 650 mg PO Q12H PRN (Reason: pain) fexofenadine [[facility] Allergy] 180 mg tablet 180 mg PO DAILY [facility] 750 mg-100 mg- 1.65 mg-108 mg tablet 1 tab PO DAILY Krill Oil ([place] 3 and 6) 1,500-165-67.5 mg capsule 1 cap PO DAILY mirabegron [Myrbetriq] 50 mg tablet extended release 24 hr 50 mg PO DAILY Qty: 20 0RF lisinopril 2.5 mg tablet 2.5 mg PO DAILY Effer-K 25 mEq tablet, effervescent 25 meq PO BID levothyroxine 100 mcg tablet 125 mcg PO DAILY Print Language: [place] Island[place] Referrals: CORNEL ANAYA [Primary Care Provider] - 1 week
[2025-01-02] MEDS: ASPIRIN 81 MG TAB.CHEW 162 MG PO (14:26)
--- OUTSIDE RECORDS SUMMARY | 2025-01-02 14:29 | XMS_ITS | CCD ---
Author Organization [facility] Informat ion Partnership 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 Role Phone Connor Anaya Unavailable Unavailable Unavailable CONNOR ANAYA Primary Care Physician Debra GOSS, Nick Blackman Attending Tonie dexter Richardson II, Nick Blackman Referring Unav ailable [place], Connor Sow Primary Care Unavailab le Jaclyn, Connor Sow Primary Care Unavailab le [facility] GOSS, Nick Blackman Attending [facility] Debra GOSS, Nick Blackman Referring Unav ailable [facility] Torito Primary Care Unavailab kristine Sarkar, [...] WEST, DR WILLARD Pittman Attending Unavailable Zieber, Klye Consulting Unavailable HASSAN ., DR BLACKMAN Admitting [...] Unavailable HASSAN ., DR BLACKMAN Consulting Unavailable PARKSANTHOSH Consulting Unavailable FURLONG, DR CONNOR Marinelli Consulting [...] Kyle Consulting Unavailable WEST, DR WILLARD Pittman Admitting [...] Unavailable HASSAN ., DR BLACKMAN Admitting Unavailable MO ., DR BLACKMAN Attending Unavailable HASSAN ., DR BLACKMAN Consulting Unavailable FURLONG, DR CONNOR Marinelli Primary Care Unavailable MARYLAND LINE, DR WILLARD Pittman Consulting Unavailable WEST, DR WILLARD Pittman Admitting Unavailable FURLONG, DR CONNOR Marinelli Primary Care Unavailable WEST, DR WILLARD Pittman Attending Unavailable MISC, DOCTOR Admitting Unavailable MISC, DOCTOR Attending Unavailable MISC, DOCTOR Consulting Unavailable FURLONG, DR CONNOR Marinelli Primary Care Unavailable [facility] DO Connorwandy Sow Primary Care Provider Radha Back Admitting Unavailable Orzech, Radha Lopes Attending Unavailable Orzech, Radha Lopes Attending Unavailable Orzech, Radha Lopes Attending Unavailable DULCE ALCAZAR Attending Unavailab Yehuda Vasquez Attending Unavailable Yehuda HASSAN Attending Unavailable Yehuda HASSAN Attending Unavailable Orzech, Radha Lopes Attending Unavailable Orzech, Radha Lopes Attending Unavailable FURCONNOR [place] Referring Unavailable FURLONG, CONNOR Marinelli Primary Care Unavailable FURNG, CONNOR Marinelli Referring Unavailable FURNG, CONNOR Marinelli Primary Care Unavailable [facility] DO Connorwandy Sow Primary Care Provider Connor Anaya MD Primary Care Provider [phone] Radha Back Attending Unavailable Orzech, Radha X Admitting Unavailable Orzech, Radha Lopes Attending Unavailable Yehuda HASSAN Attending Unavailable NICK RICHARDSON Attending Unavailable FURNG, CONNOR SOW Primary Care Unavailab NICK Rousseau Attending Unavailable FURNG, CONNOR SOW Primary Care Unavailab NICK Rousseau Referring Unavailable CARMEN LOPEZ Attending Unavailable NICK RICHARDSON Referring Unavailable FURNG, CONNOR SOW Primary Care Unavailab Yehuda Vasquez Attending Unavailable JR. CHAPO, LESVIA Iraheta Attending Unavaila analisa MCCLAIN JR., LESVIA Iraheta Referring Unavaila NANY Akbar Attending Unavailable NANY JAIN Referring Unavailable JR. CHAPO, LESVIA Iraheta Attending Unavaila ble Furlong Connor ESCALANTE Primary Care Provider [phone] JACLYN, CONNOR Marinelli Referring Unavailable FURLONG, CONNOR Marinelli Primary Care Unavailable FURNG, CONNOR Marinelli Attending Unavailable FURLONG, CONNOR G Referring Unavailable FURLONG, CONNOR G Primary Care Unavailable FURLONG, CONNOR G Attending Unavailable FURLONG, CONNOR G Referring Unavailable FURLONG, CONNOR G Primary Care Unavailable FURLONG, CONNOR G Attending Unavailable FURLONG, CONNOR G Referring Unavailable FURLONG, CONNOR G Primary Care Unavailable SARAH, SAMAR Attending Unavailable SARAH, SAMAR Referring Unavailable SARAH, SAMAR Referring Unavailable Allergies Allergy Classification Reported Allergen(s) Allergy Type Date of Onset Reaction(s) Facility (20 sources) Ciprofloxacin; Translations: [ciprofloxacin] Drug Allergy 12-12-19 23 Eruption of skin (disorder), Unknown, Rash [facility] (20 sources) Sulfonamides (Antibiotic); Translations: [Sulfa Drugs] Allergy to drug (finding) Eruption of skin (disorder) [facility] (20 sources) corn extract; Translations: [[place]] Drug Allergy 02-18-20 24 Unknown (qualifier value), Other (See Comments) [facility] (16 sources) Dog; Translations: [Dogs] Allergy to substance Unknown (qualifier value) [facility] (20 sources) Mold Extract; Translations: [mold] Drug Allergy 11-08-19 18 Unknown (qualifier value), Other (See Comments) [facility] (16 sources) Milk Products; Translations: [Milk Products] Food allergy Unknown (qualifier value) [facility] (16 sources) house dust mite allergen extract; Translations: [house dust mite allergen extra] Allergy to substance Unknown (qualifier value) [facility] (2 sources) Ciprofloxacin Drug Allergy 01-31-20 14 [facility] (1 source) house dust allergenic extract Drug Allergy [facility] (2 sources) Lactose Drug Allergy [facility] (1 source) Sulfonamides (Antibiotic) Drug allergy (disorder) [facility] (20 sources) Sulfonamides (Antibiotic); Translations: [SULFA (SULFONAMIDE ANTIBIOTICS)] Drug Intolerance 06-21-20 23 Unknown, Rash [facility] (20 sources) Sulfamethoxazole / Trimethoprim; Translations: [SULFAMETHOXAZOLE-T RIMETHOPRIM] Drug Allergy 11-13-19 23 Rash [facility] (5 sources) [place] Oil; Translations: [CORN OIL] Drug Allergy 11-08-19 Diarrhea, Other [facility] (3 sources) Cow milk Propensity to adverse reactions 11-08-19 Other [facility] (3 sources) House dust mite Allergy to substance 10-30-19 [facility] (3 sources) Mold Extract Drug Allergy 11-08-[address] [facility] (2 sources) Milk; Translations: [MILK] Propensity to adverse reactions to food (disorder) 11-08-19 Other (See Comments) [facility] (2 sources) ALLERG XT,D.FARINAE-D.PTER ONYS; Translations: [ALLERG XT,D.FARINAE-D.PTER ONYS] Propensity to adverse reactions to drug (disorder) 10-30-19 [facility] Medications Current Medications Medication Drug [...] (eight) hours as needed for pain. Active take 1 tablet by rosalinda th every four hours acetaminophen (Tylenol) 325 MG tablet Ta ke 325 mg by mouth every 4 (four) hours Active allopurinol 300 mg oral tablet (20 [...] 16-Aug-2021 DO Active CALCIUM CARBONATE-VITAMIN D3 ORAL (16 sources) take 1 tablet by mouth once daily CALCIUM CARBONATE-VITAMIN D3 ORAL Take 1 tablet by mouth once daily. Active take 1 tablet by mouth in the mo rning CALCIUM CARBONATE-VITAMIN D3 ORAL Take 1 tablet by mouth in the morning. Active Centrum Silver (13 sources) Start: 07-01-2020 take 1 tablet by mouth once daily Centrum Silver 1 tab(s), Oral, Daily, Refill(s) 0 Start Date: 07/01/20 Status: Ordered cholecalciferol 0.025 mg oral tablet (20 sources) Vitamin D take 1 tablet by [...] tablet (20 sources) Antiarrhythmic Sta rt: 9 End : 4 take 1 tablet by mouth twice daily as needed dronedarone (MULTAQ) 400 mg tablet Take 1 tablet (400 mg total) by mouth 2 (two) times a day as needed. 12/24/2023 Active ferrous sulfate (3 sources) take 1 tablet by mouth in the morning Ferrous Sulfate (IRON PO) Take 1 tablet by mouth in the morning. Active fexofenadine hydrochloride 180 mg oral tablet (20 sources) Histamine-1 Receptor Antagonist Sta rt: 4 take 1 tablet by mouth in the morning fexofenadine (HANNAH) 180 mg tablet Take 1 tablet (180 mg total) by mouth in the morning. 02/18/2024 Active take 1 tablet by mouth once don y fexofenadine (Hannah) 60 mg tablet Take 1 tablet (60 mg) by mouth once daily. Active krill oil (20 sources) Start: 02-18-2024 take 1 capsule by mouth in the morning ihrcf-ny-2-qkc-tzv-xgilemw-ast (KRILL OIL) 1,815-532-27-80 mg capsule Take 1 capsule by mouth in the morning. 02/18/2024 Active Krill Oil 1000 M G capsule Orally Active End: 08-18-2024 krill oil 500 mg capsule Bassam e by mouth daily. 08/18/2024 Discontinued (Patient Stopped On Own) levothyroxine sodium 0.112 mg oral tablet (20 sources) l-Thyroxine Start: 08-19-2024 End: 11-14-2024 take 1 tablet by mouth in the morning levothyroxine (SYNTHROID, LEVOTHROID) 112 MCG tablet Take 1 tablet (112 mcg total) by mouth in the morning. 90 tablet 11/15/2024 Active Start: 02-20-2024 End: 08-19-2024 take 1 tablet by mouth once daily in the morning levothyroxine (SYNTHROID, LEVOTHROID) 125 MCG tablet take 1 tablet by mouth every morning 90 tablet 1 07/24/2024 08/19/2024 Discontinued (Dose adjustment) Start: 09-09-2023 End: 08-28-2024 take 1 tablet by mouth once daily in the morning levothyroxine (SYNTHROID, LEVOTHROID) 137 MCG tablet take 1 tablet by mouth every morning 90 tablet 02/14/2024 02/20/2024 Discontinued (Dose adjustment) Start: 07-29-2019 take 1 capsule by [facility] once daily levothyroxine 137 mcg (0.137 mg) oral capsule 137 microgram = 1 cap(s), Oral, Daily Start Date: 07/29/19 Status: Ordered lisinopril 2.5 mg oral tablet (20 sources) Angiotensin Converting Enzyme Inhibitor Start: 06-30-2022 End: 03-06-2025 take 1 tablet by mouth once daily lisinopriL (PRINIVIL,ZESTRIL) 2.5 mg tablet Indications: Proteinuria, unspecified TAKE 1 TABLET BY MOUTH EVERY DAY 90 tablet 1 09/17/2023 Active loratadine 10 mg oral tablet (16 sources) Start: 07-29-2019 take 10 mg by mouth once daily Claritin 10 mg, Oral, Daily, Refills(s) 0 Start Date: 07/29/19 Status: Ordered End: 03-06-2024 take 1 capsule by mouth once daily loratadine 10 mg capsule Take 1 capsule by mouth once daily. 03/06/2024 Discontinued (Other) lovastatin 10 mg oral tablet (20 sources) HMG-CoA Reductase Inhibitor Start: 10-21-2022 End: 11-14-2024 take 1 tablet by mouth in the [...] Multiple Vitamins-Minerals (CENTRUM SILVER ADULT 50+ PO) (6 sources) Multiple Vitamins-Minerals (CENTRUM SILVER ADULT 50+ PO) as directed Orally Active hlsezimb-xga-pzwz-FA -vit K-lut (Centrum Silver Women) 8 mg iron-400 mcg-50 mcg tablet (2 sources) take 1 tablet by mouth once daily jnpgbbkc-aer-hwsb-FA -vit K-lut (Centrum Silver Women) 8 mg iron-400 mcg-50 mcg tablet Take 1 tablet by mouth once daily. Active vtchaiyj-xnh-smes-FA -vit K-lut (CENTRUM SILVER WOMEN) 8 mg iron-400 mcg-50 mcg tablet (14 sources) take 1 tablet by mouth once in the morning emevdcnt-ura-fhka-FA -vit K-lut (CENTRUM SILVER WOMEN) 8 mg iron-400 mcg-50 mcg tablet Take 1 tablet by mouth in the morning. Active Jackson-3 Fatty Acids (OMEGA-3 FISH OIL PO) (6 sources) Jackson-3 Fatty Ac ids (OMEGA-3 FISH OIL PO) Take by mouth Active omega-3 fatty acids-fish oil (One-Per-Day Jackson-3) 684-1,200 mg capsule (2 sources) omega-3 fatty acids-fish oil (One-Per-Day Jackson-3) 684-1,200 mg capsule Take 1 capsule (1,200 mg) by mouth once daily. Active OTC joint supplement (13 sources) Start: 07-01-2020 take 1 tablet by mouth once daily OTC joint supplement OTC joint supplement, one tab, Oral, Daily Start Date: 07/01/20 Status: Ordered potassium bicarbonate 25 meq effervescent oral tablet (20 sources) Start: 10-26-2023 take 1 tablet by [...] by mouth in the morning. 10/21/2022 Active sodium bicarbonate 650 mg oral tablet (3 sources) take 1 tablet by mouth once sodium bicarbonate 650 MG tablet Take 650 mg by mouth 1 (one) time Active tamsulosin hydrochloride 0.4 mg oral capsule (4 sources) alpha-Adrenergic Deann Start: 08-05-2024 take 1 capsule by mouth in the morning tamsulosin (FLOMAX) 0.4 mg capsule Take 1 capsule (0.4 mg total) by mouth in the morning. 08/05/2024 Active Vitamin D3 (13 sources) Start: 07-29-2019 Vitamin D3 1,000 International_Unit, Oral, Daily, Refills(s) 0 Start Date: [...] procedure, # 2 cap(s), Refills(s) 0, Pharmacy: [id number], 165, cm, 06/30/22 11:48:00 EDT, Height/Length Dosing, 113, kg, 06/30/22 11:4... Start Date: 08/22/22 Status: Ordered Collagen Ultra Oral Capsule (7 sources) take 1 capsule by mouth once daily Collagen Ultra Oral Capsule TAKE 1 CAPSULE Daily Quantity: 0 Refills: 0 Ordered: 16-Aug-2021 DO Active K-Effervescent 25 mEq oral tablet, effervescent (9 sources) Start: 2022 take 1 tablet by mouth twice daily K-Effervescent 25 mEq oral tablet, effervescent 25 mEq = 1 tab(s), Oral, BID, # 60 tab(s), Refills(s) 11, Pharmacy: [id number], 165, cm, 10/26/23 8:42:00 EST, Height/Length Dosing, 97.5, kg, 10/26/23 8:42:00 EST, Weight Dosing Start Date: 10/26/23 Status: Ordered 1 ml methylPREDNISolone acetate 40 mg/ml injection (4 sources) Corticosteroid Start: 2023 End: 2023 methylPREDNISolone acetate (DEPO-Medrol) injection 40 mg Start: 09-02-2024 End: 09-02-2024 40 mg, Intra-articular, Once PRN Procedure, Starting on Sun09/02/24 at 1414, For 1 dose Jackson 3 CAPS (7 sources) Jackson 3 CAPS BASSAM E DIRECTED. Quantity: 0 Refills: 0 Ordered: 16-Aug-2021 DO Active Problems Active Problems Problem Classification Problem Date Documented Da te Episodic/Chronic Acute and unspecified renal failure (17 sources) Renal failure syndrome; Translations: [Unspecified kidney [...] Genitourinary symptoms and ill-defined conditions (20 sources) Genuine stress incontinence; Translations: [Stress incontinence (female) (male)] Onset: 07-23-2023 08-16-2020 Chronic Heart valve disorders (13 sources) Irregular heart beat 08-25-2019 Episodic Hypertension with complications and secondary hypertension (3 sources) Hypertensive chronic kidney disease with stage 1 through stage 4 chronic kidney disease, or unspecified chronic kidney disease; Translations: [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] Onset: 02-18-2024 02-18-2024 Chronic Immunizations and screening for infectious disease (2 sources) Encounter for immunization; Translations: [Needs influenza immunization] Onset: 10-13-2024 10-13-2024 Episodic Joint disorders and dislocations; trauma-related (6 sources) Chondromalacia of right patella; Translations: [Chondromalacia patellae, right knee] 09-02-2024 Chronic Nutritional deficiencies (1 source) Vitamin D deficiency, unspecified; Translations: [VITAMIN D DEFICIENCY UNSPECIFIED] Onset: 02-24-2023 Chronic Osteoarthritis (20 sources) Arthritis of right knee; Translations: [Unilateral primary osteoarthritis, right knee] Onset: 07-23-2023 09-02-2024 Chronic Other aftercare (7 sources) Drug therapy finding; Translations: [Long-term (current) use of anticoagulants] Episodic Other aftercare (2 sources) Taking high risk medication; Translations: [Other extermination inspector (current) drug therapy] Onset: 08-28-2024 08-28-2024 Episodic Other aftercare (2 sources) Other extermination inspector (current) drug therapy; Translations: [Other extermination inspector (current) drug therapy] Onset: 08-28-2024 Episodic Other gastrointestinal disorders (4 sources) Bariatric surgery status; Translations: [BARIATRIC SURGERY STATUS] Onset: 02-20-2023 Episodic Other hereditary and degenerative nervous system conditions (16 sources) Minimal cognitive impairment; Translations: [Mild cognitive impairment, so stated] Onset: 07-23-2023 07-23-2023 Chronic Other hereditary and degenerative nervous system conditions (1 source) Mild cognitive impairment, so stated; Translations: [Mild cognitive impairment of uncertain or unknown etiology] Onset: 07-23-2023 Chronic Other non-traumatic joint disorders (4 sources) Pain in right knee; Translations: [Pain in joint, lower leg] 09-02-2024 Episodic Other nutritional; endocrine; and metabolic disorders (20 sources) Body mass index 40+ - severely obese; Translations: [Body Mass Index 40.0-44.9, adult] 07-29-2019 Chronic Other nutritional; endocrine; and metabolic disorders (17 sources) Morbid obesity; Translations: [Morbid obesity] Onset: [...] Chronic Other nutritional; endocrine; and metabolic disorders (3 sources) Body mass index (BMI) 35.0-35.9, adult; Translations: [Body mass index (BMI) 35.0-35.9, adult] Onset: 08-28-2024 Chronic Other nutritional; endocrine; and metabolic disorders (2 sources) Body mass index (BMI) 36.0-36.9, adult; Translations: [Body mass index (BMI) 36.0-36.9, adult] Onset: 03-06-2024 Chronic Other nutritional; endocrine; and metabolic disorders (11 sources) 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; Translations: [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] Onset: 08-18-2024 10-13-2024 Chronic Other nutritional; endocrine; and metabolic disorders (1 source) Severe obesity; Translations: [Morbid (severe) obesity due to excess calories] 02-18-2024 Chronic Other screening for suspected conditions (not mental disorders or infectious disease) (20 sources) CT of abdomen abnormal; Translations: [Encounter for screening mammogram for malignant neoplasm of breast] Onset: 05-04-2022 12-07-2020 Episodic Dorene-; endo-; and myocarditis; cardiomyopathy (except that caused by tuberculosis or sexually transmitted disease) (20 sources) Cardiomyopathy; Translations: [Other primary cardiomyopathies] Onset: 07-23-2023 03-06-2024 Chronic Residual codes; unclassified (16 sources) Sleep apnea; Translations: [Sleep apnea, unspecified] Onset: 07-23-2023 07-23-2023 Chronic Residual codes; unclassified (1 source) Sleep apnea, unspecified; Translations: [Sleep apnea, unspecified] Onset: 07-23-2023 Chronic Residual codes; unclassified (1 source) Edema, unspecified; Translations: [EDEMA UNSPECIFIED] Onset: 02-24-2023 Episodic Residual codes; unclassified (4 sources) Never smoked tobacco; Translations: [Other specified health status] Onset: 12-24-2023 03-06-2024 Episodic Screening and history of mental health and substance abuse codes (1 source) Patient encounter status; Translations: [Encounter for screening for depression] 11-28-2024 Episodic Septicemia (except in labor) (13 sources) Sepsis due to Enterobacter 08-16-2020 Episodic Thyroid disorders (20 sources) Hypothyroidism; Translations: [Unspecified acquired hypothyroidism] Onset: 02-20-2023 08-25-2019 Chronic Unclassified (13 sources) Asymptomatic microscopic hematuria 08-16-2020 Unclassified (13 sources) Drug therapy finding 10-20-2020 Unclassified (1 source) GASTR-ESOPH RFLX DS ESPHGTS W/O BLD; Translations: [GASTR-ESOPH RFLX DS ESPHGTS W/O BLD] Onset: 02-24-2023 Unclassified (9 sources) Obstructive hydronephrosis 10-26-2023 Unclassified (1 source) maw Onset: 11-25-2024 Unclassified (2 sources) Other ventricular tachycardia; Translations: [Other ventricular tachycardia] Onset: 10-13-2024 Unclassified (1 source) Obesity, class 2; Translations: [Obesity, class 2] Onset: 10-13-2024 Unclassified (1 source) Genetic susceptibility to obesity; Translations: [Genetic susceptibility to obesity] Onset: 10-13-2024 Unclassified (1 source) 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; Translations: [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] Onset: 10-13-2024 Urinary tract infections (14 sources) Urinary tract infectious disease; Translations: [Urinary tract infection, site not specified] Onset: 08-11-2022 08-16-2020 Episodic Past or Other Problems Problem Classification Problem Date Documented Da te Episodic/Chronic Biliary tract disease (20 sources) Biliary calculus; Translations: [Calculus of gallbladder without cholecystitis without obstruction] Onset: 3 12-07-2020 Episodic Calculus of urinary tract (20 sources) Kidney stone; Translations: [Calculus of kidney] Onset: 2 Episodic Diabetes mellitus without complication (20 sources) Diabetes mellitus; Translations: [Type 2 diabetes mellitus without complications] Onset: 3 Resolved: 3 08-25-2019 Chronic Genitourinary symptoms and ill-defined conditions (20 sources) Microscopic hematuria; Translations: [Asymptomatic microscopic hematuria] Onset: 2 Episodic Mood disorders (15 sources) Mood disorders Onset: 4 Resolved: 4 10-13-2024 Other aftercare (4 sources) Encounter for surgical aftercare following surgery on the circulatory system; Translations: [ENC SURG AFTRCARE FLW SURG CIRC SYS] Onset: 2 Episodic Other and unspecified benign neoplasm (15 sources) Polyp of transverse colon; Translations: [Polyp of colon] Onset: 3 12-13-2022 Episodic Other circulatory disease (20 sources) Carotid bruit; Translations: [Other symptoms involving cardiovascular system] Onset: 3 08-17-2023 Episodic Other circulatory disease (7 sources) H/O: hypertension; Translations: [Personal history of other diseases of circulatory system] Resolved: 1 Episodic Other diseases of kidney and ureters (14 sources) Hydronephrosis with renal and ureteral calculous [...] smoked tobacco; Translations: [Never a smoker] Unclassified (16 sources) Onset: 4 Resolved: 4 03-06-2024 Unclassified (1 source) Other ventricular tachycardia; Translations: [Other ventricular tachycardia] Onset: 5 Varicose veins of lower extremity (5 sources) Varicose veins of bilateral lower extremities with pain; Translations: [VARICOSE VNS TANMAY LOW EXTREM W/PAIN] Onset: 2 Episodic Results Test Name Value Interpretation Reference Range Facil ity 36on 12-11-2024 36 Regarding CTA coronaries result from 11/27/2024: MD Maite Jacobs MA Inform patient that coronary CT angiogram showed mild to moderate coronary artery disease. No need for intervention. However it showed that her heart function is weak with ejection fraction of 37% which was not seen on her echo. Please repeat 2D echo with [facility] but please let her come to [facility] to have it done. Also arrange for her to be seen by Dr. Jones as soon as possible. The please add Farxiga 10 mg daily and Aldactone 25 mg daily to her current medical regimen and check BMP in 1 week. Spoke with patient and she agrees to have echo at [facility]. I told her I would send the 2 RX's to her pharmacy and call them to see if they could take free Farxiga voucher over the phone to save her a trip to the office. She will have labs 1 week after starting meds. BMP faxed to [facility]. Follow up made with Dr. Jones for 02/03/2025. I advised patient that we would call her with result and that she didn't have to wait until 02/03 for results. She verbalized understanding. Normal [facility] CREATININE, SERUMon 11-27-19 25 Creatinine [Mass/Vol] 0.88 mg/dL Normal 0.60-1.20 [facility] Comment on above: Performed By: #### L [id number] #### [facility] (BEAKER) [address] [place] [address] GLOMERULAR FILTRATION RATE ML/MIN/1.73 SQ M.PREDICTED 68.9 mL/min/1.73m*2 Normal >60.0 [facility] Comment on above: Result Comment: The [facility]???s estimated glomerular filtration rate (eGFR) will no longer include consideration of race in its calculation. The National Kidney Foundation???s eGFR Task Force developed new recommendations for the estimation of the glomerular filtration rate in the [place] They recommend immediate implementation of the new equation refit without the race variable in all laboratories because the calculation does not include race. In addition to not including race in the calculation and reporting, it included diversity in its development, and has acceptable performance characteristics and potential consequences that do not disproportionately affect any one group of individuals. Performed By: #### L [id number] #### [facility] (BEAKER) [address] [place] [address] CTA HEART CORONARY W IV CONT RAST W OR WO FFRCTon 11-27-2024 CTA HEART CORONARY W IV CONTRAST W OR WO FFRCT CTA HEART CORONARY W IV CONTRAST W OR WO FFRCT 11/27/2024 8:27 AM CLINICAL INDICATIONS: Abnormal stress test. PV tachycardia. Evaluate possibility of coronary artery stenosis TECHNOLOGIST COMMENTS: Abnormal stress test QUESTION FOR RADIOLOGIST: Evaluate possible coronary artery stenosis PROTOCOL: gated cardiac CTA CONTRAST: 100 ML Omnipaque 350 TECHNIQUE: Multidetector CT angiogram was obtained using retrospective ECG gating. Imaging was performed from the level of the clavicles to the level of the hemidiaphragms. In order to provide better evaluation of the anatomy and disease process, advanced off-line 3-D post-processing techniques, including curvilinear analysis, 3-D volume rendered images, stenosis calculation and ejection fraction evaluation were performed. Heart flow roadmap overview and FFR evaluation were performed. Medication administered in preparation for the examination is located in nursing documentation. All CT scans at this facility use dose modulation, iterative reconstruction, and/or weight based dosing when appropriate to reduce radiation dose to as low as reasonably achievable COMPARISON: None. CORONARY ARTERY ANGIOGRAM FINDINGS: Stenoses are reported as maximum percentage diameter stenosis. Stenosis grading is reported using the following scheme: Normal: no stenosis Mild: 1-49% stenosis Moderate: 50-70% stenosis Severe: >70% stenosis Occluded Dominance of the coronary artery system: right with normal origins and course. Left Main: The left main is a normal caliber vessel which gives rise to the LAD and circumflex arteries The left main with no significant plaque. No significant stenosis Left Anterior Descending Artery: The proximal left anterior descending artery and first diagonal branch with moderate plaque. The mid-distal LAD, D2 and D3 branches with mild plaque. There is a no evidence of myocardial bridge in the LAD segment. There is mild stenosis in the proximal LAD approximately 40 %. There is also mild stenosis in the first diagonal branch of approximately 42%. Left Circumflex Artery: The left circumflex artery and its obtuse marginal branches with mild plaque. The vessel is small in caliber and there is mild stenosis seen in the proximal left circumflex of less than 40% Right Coronary Artery: The right coronary artery and acute marginal branches with mild plaque. There is mild stenosis in the proximal RCA less than 20%. However, there is suggestion of moderate stenosis at the origin of the acute marginal branches and posterolateral branch between 50 and 69% suggested by heart flow overview. FFR in the RCA is 1 in the PDA and 0.96 in the posterolateral branch as well as 0.93 in the acute marginal branch. Therefore, possibility of pressure gradient or significant stenosis is unlikely. Similarly, the ratio in the LAD is 0.94 and in the left circumflex is 0.98 without significant pressure gradient or stenosis suspected Cardiac Morphology: The right atrium is normal. The right ventricle is normal. The left atrium is normal. The left ventricle is normal. . The pericardium is normal and there is no pericardial effusion. Cardiac Function: {reported only if retrospective ECG gating has been used} The calculated left ventricular ejection fraction is 37%, the left ventricular end-diastolic volume is 172 mL, and the left ventricular end-systolic volume is 109 mL. Stroke volume is only 63 mL. There is diffuse and global hypokinesis of the left ventricle. Cardiac Devices and Indwelling Central Venous Lines: No central lines or pacer devices are visualized. EXTRACARDIAC FINDINGS: Other lung findings: Visualized part of the lungs appear unremarkable. Airway: Normal. Pleura: No pleural effusion, thickening, or pneumothorax. Thoracic aorta and great vessels: Normal in diameter. Pulmonary arteries: Normal. Heart and pericardium: Normal. Lymph nodes: No enlarged thoracic lymph nodes. Thoracic spine: Bony spurring suggesting thoracic spondylosis. Chest wall: Normal. Visualized upper abdomen: Metallic clips at the GE junction from prior surgery and in the epigastric region. Otherwise, visualized part of the upper abdomen appears unremarkable Heart lower roadmap overview did not reveal any significant stenosis in the LAD and left circumflex which is small in caliber. IMPRESSION: 1. Mild stenosis in the LAD, left circumflex and RCA.. Mild to moderate stenosis at the origin of the acute marginal and posterolateral branch of the RCA but FFR are not suggestive of significant pressure gradient or stenosis. 2. Diminished diffuse global and regional wall motion and function of the LV. Ejection fraction of only 37% 3. Mild thoracic spondylosis 4. Metallic clips in the epigastric region and GE junction from prior surgery Electronically signed: Adriel Sher MD. Not Vldtd Invalid Interpretation Code [facility] Labon 11-27-2024 Lab [id number] Miky Fuentes 1950 F Date Provider Department Center 11/27/2024 2245-[facility] OPD LAB RESOURCE [facility]PD [facility] Medical C No family history on file Normal [facility] Office Visiton 10-17-2024 Follow-up visit [id number] Miky Fuentes 1950 F Date Provider Department Center 10/17/2024 [id number] No family history on file Level of Service:72448 MI OFFICE/OUTPATIENT NEW MODERATE MDM 45 MINUTES Normal [facility] No Panel Informationon 09-02 VIC Avila 09/02/2024 [...] was given by the patient. [facility] XR Knee - right 1 or 2 [...] articulation and patella femoral joint [facility] Radiology Study observation (narrative) [facility] COMPREHENSIVE METABOLIC PANE Good 08-18-2024 Albumin [Mass/Vol] 3.9 g/dL Normal 3.2-5.3 [facility] Comment on above: Performed By: #### T CECYR, 61066-6, CMP #### [facility] ([id number]) [address], [address] [place] [address] ALP [Catalytic activity/Vol] 114 U/L Normal 39-130 [facility] Comment on above: Performed By: #### T HYR, 15797-1, CMP #### [facility] ([id number]) [address], [address] [place] [address] ALT [Catalytic activity/Vol] 15 U/L Normal 0-31 [facility] Comment on above: Performed By: #### T CECYR, 00375-2, CMP #### [facility] ([id number]) [address], [address] [place] [address] Anion gap [Moles/Vol] 8 mmol/L Normal 5-15 [facility] Comment on above: Performed By: #### Min KABA, 33022-6, CMP #### [facility] ([id number]) [address], [address] [place] [address] AST [Catalytic activity/Vol] 20 U/L Normal 0-41 [facility] Comment on above: Performed By: #### Min KABA, 37196-6, CMP #### [facility] ([id number]) [address], [address] [place] [address] Bilirubin [Mass/Vol] 0.5 mg/dL Normal 0.3-1.2 [facility] Comment on above: Performed By: #### Min KABA 37524-2, CMP #### [facility] ([id number]) [address], [address] [place] [address] Calcium [Mass/Vol] 10.4 mg/dL Normal 8.5-10.5 [facility] Comment on above: Performed By: #### Min KABA, 16103-0, CMP #### [facility] ([id number]) [address], [address] [place] [address] Chloride [Moles/Vol] 103 mmol/L Normal 98-109 [facility] Comment on above: Performed By: #### Min KABA, 45207-6, CMP #### [facility] ([id number]) [address], [address] [place] [address] CO2 [Moles/Vol] 27 mmol/L Normal 22-32 [facility] Comment on above: Performed By: #### Min KABA, 21030-2, CMP #### [facility] ([id number]) [address], [address] [place] [address] Creatinine [Mass/Vol] 0.80 mg/dL Normal 0.40-1.00 [facility] Comment on above: Result Comment: METH OD TRACEABLE TO IDMS STANDARD Performed By: #### Min KABA 74402-3, CMP #### [facility] ([id number]) [address], [address] [place] [address] GFR/1.73 sq M.predicted among non-blacks MDRD (S/P/Bld) [Vol rate/Area] 77 mL/min/{1.73_m2} Normal >59 [facility] Comment on above: Result Comment: Reported eGFR is based on the CKD-EPI 2020 equation that does not use a race coefficient. Performed By: #### Min KABA 90422-9, CMP #### [facility] ([id number]) [address], [address] [place] [address] Glucose [Mass/Vol] 99 mg/dL Normal 65-99 [facility] Comment on above: Performed By: #### Min KABA 16819-0, CMP #### [facility] ([id number]) [address], [address] [place] [address] Potassium [Moles/Vol] 4.0 mmol/L Normal 3.5-5.0 [facility] Comment on above: Performed By: #### Min KABA 57798-9, CMP #### [facility] ([id number]) [address], [address] [place] [address] Protein [Mass/Vol] 7.0 g/dL Normal 6.0-8.0 [facility] Comment on above: Performed By: #### Min KABA 79654-2, CMP #### [facility] ([id number]) [address], [address] [place] [address] Sodium [Moles/Vol] 138 mmol/L Normal 134-146 [facility] Comment on above: Performed By: #### Min KABA 55263-5, CMP #### [facility] ([id number]) [address], [address] [place] [address] Urea nitrogen [Mass/Vol] 18 mg/dL Normal 5-27 [facility] Comment on above: Performed By: #### T HYR, 89709-4, CMP #### [facility] ([id number]) [address], [address] [place] [address] Comprehensive metabolic pane good 08-18-2024 Albumin [Mass/Vol] 3.9 g/dL 3.2 - 5.3 g/dL [facility] ALP [Catalytic activity/Vol] 114 U/L 39 - 130 U/L [facility] ALT No additional P-5'-P [Catalytic activity/Vol] 15 U/L 0 - 31 U/L [facility] Anion gap [Moles/Vol] 8 mmol/L 5 - 15 mmol/L [facility] AST [Catalytic activity/Vol] 20 U/L 0 - 41 U/L [facility] Bilirubin [Mass/Vol] 0.5 mg/dL 0.3 - 1.2 mg/dL [facility] Calcium [Mass/Vol] 10.4 mg/dL 8.5 - 10.5 mg/dL [facility] Chloride [Moles/Vol] 103 mmol/L 98 - 109 mmol/L [facility] CO2 [Moles/Vol] 27 mmol/L 22 - 32 mmol/L [facility] Creatinine [Mass/Vol] 0.8 mg/dL 0.40 - 1.00 mg/dL [facility] Comment on above: METHOD TRACEABLE TO IDAZ STANDARD eGFR (CKD-EPI)non-race dependent 77 - PINF [facility] Comment on above: Reported eGFR is based on the CKD-EPI 2020 equation that does not use a race coefficient. Glucose [Mass/Vol] 99 mg/dL 65 - 99 mg/dL [facility] Potassium [Moles/Vol] 4 mmol/L 3.5 - 5.0 mmol/L [facility] Protein [Mass/Vol] 7 g/dL 6.0 - 8.0 g/dL [facility] Sodium [Moles/Vol] 138 mmol/L 134 - 146 mmol/L [facility] Urea nitrogen [Mass/Vol] 18 mg/dL 5 - 27 mg/dL [facility] Lipid 1996 panelon 4 Cholesterol [Mass/Vol] 187 mg/dL 150 - 200 mg/dL [facility] Cholesterol in HDL [Mass/Vol] 66 mg/dL 39 - PINF mg/dL [facility] Comment on above: HDL <40 mg/dL - High Risk HDL > or = 40mg/dL- Desirable HDL >60 mg/dL - Negative Risk Cholesterol in LDL [Mass/Vol] 107 mg/dL NINF - 130 mg/dL [facility] Comment on above: LDL <100 mg/dL - Desirable LDL >160 mg/dL - High Risk Cholesterol in VLDL [Mass/Vol] 14 mg/dL 0 - 30 mg/dL [facility] Cholesterol.total /Cholesterol in HDL [Mass ratio] 2.8 {ratio} 1.0 - 5.0 [facility] Triglyceride [Mass/Vol] 68 mg/dL 27 - 150 mg/dL [facility] Cholesterol [Mass/Vol] 187 mg/dL Normal 150-200 [facility] Comment on above: Performed By: #### T R, 59612-3, CMP #### [facility] ([id number]) [address], [address] [place] [address] Cholesterol in HDL [Mass/Vol] 66 mg/dL Normal >39 [facility] Comment on above: Result Comment: HDL <40 mg/dL - High Risk HDL > or = 40mg/dL- Desirable HDL >60 mg/dL - Negative Risk Performed By: #### Min KABA, 24189-8, CMP #### [facility] ([id number]) [address], [facility] [address] [place] [address] Cholesterol in LDL [Mass/Vol] 107 mg/dL Normal <130 [facility] Comment on above: Result Comment: LDL <100 mg/dL - Desirable LDL >160 mg/dL - High Risk Performed By: #### Min KABA, 86078-2, CMP #### [facility] ([id number]) [address], [address] [place] [address] Cholesterol in VLDL [Mass/Vol] 14 mg/dL Normal 0-30 [facility] Comment on above: Performed By: #### Min KABA, 06766-5, CMP #### [facility] ([id number]) [address], [address] [place] [address] CHOLESTEROL:HDL 2.8 Normal 1.0-5.0 [facility] Comment on above: Performed By: #### Min KABA, 62035-2, CMP #### [facility] ([id number]) [address], [facility] [address] [place] [address] Triglyceride [Mass/Vol] 68 mg/dL Normal 27-150 [facility] Comment on above: Performed By: #### Min KABA, 02792-9, CMP #### [facility] ([id number]) [address], [facility] [address] [place] [address] No Panel Informationon 08-18 [facility] THYROID PROFILEon 08-18-2024 Free T4 [Mass/Vol] 1.33 ng/dL Normal 0.61-1.60 [facility] Comment on above: Performed By: #### Min KABA, 81207-9, CMP #### [facility] ([id number]) [address], [address] [place] [address] TSH 0.35 uIU/mL Low 0.49-4.67 [facility] Comment on above: Performed By: #### T HYR, 15916-9, CMP #### [facility] ([id number]) [address], [address] [place] [address] Thyroid profile includes TSH FT4on 08-18-2024 Free T4 [Mass/Vol] 1.33 ng/dL 0.61 - 1.60 ng/dL [facility] Interpretation and review of laboratory results Abnormal [facility] TSH Qn 0.35 m[IU]/L Low [facility] UroVysion Fish and Urine Cyt o ([facility])on 08-05-2024 UVFISH & UC Diagnosis Info Invalid Interpretation Code [facility] Comment on above: Result Comment: A:Ur ine,Urine:Voided [...] with cytology and cystoscopy results. * CPT: 90653, 02563. MicroScopic Description - MicroScopic Description - Electronically signed by : on: 08/05/2024 16:40:06 Performed By: #### 1 [id number] #### [facility] [address] [place] [address] UroVysion Fish and Urine Cyt o ([facility])on 07-29-2024 [facility] Method of Extraction Voided Normal [facility] Comment on above: Performed By: #### 1 [id number] #### [facility] [address] [place] [address] [facility] Number of Jars 1 Invalid Interpretation Code [facility] Comment on above: Performed By: #### 1 [id number] #### [facility] [address] [place] [address] [facility] Specimen Urine Normal [facility] Comment on above: Performed By: #### 1 [id number] #### [facility] [address] [place] [address] [facility] Type of Service Technical Only Normal [facility] Comment on above: Performed By: #### 1 [id number] #### [facility] [address] [place] [address] Urine Cytology ([facility])on 07-18-2024 Microscopic exam Cytology (U) [Interp] Diagnosis Info Invalid Interpretation Code [facility] Comment on above: Result Comment: A:Ur ine,Clean [...] on: 07/18/2024 12:47:49 Performed By: #### 1 [id number] #### [facility] [address] [place] [address] Ambulatory Visit Summaryon 07-15-2024 Ambulatory Visit Summary Ambulatory Visit Summary MIKY FUENTES :1950 Visit Date:07/15/2024 Ambulatory Visit Instructions Your Diagnosis Gross hematuria Kidney stone Your Care Team Attending Physician - RAAD Back APRN, Radha Lopes Primary Care Physician - CONNOR ANAYA DO [...] When: Comments: pending review of imaging Where: [address] [place] [address]- Medications What How Much When Instructions Unchanged [...] prescribing physician if questions or concerns Allergies [place] (Unknown) Dogs (Unknown) Milk Products (Unknown) Mold [...] content not included)... Normal [facility] Urine Cytology ([facility])on 07-15-2024 Method of Extraction Voided Normal [facility] Comment on above: Performed By: #### 1 [id number] #### [facility] [address] [place] [address] Number of Jars 1 Invalid Interpretation Code [facility] Comment on above: Performed By: #### 1 [id number] #### [facility] [address] [place] [address] Specimen Clean Catch Normal [facility] Comment on above: Performed By: #### 1 [id number] #### [facility] [address] [place] [address] Type of Service Technical Only Normal [facility] Comment on above: Performed By: #### 1 [id number] #### [facility] [address] [place] [address] Urology Office/Clinic Noteon 07-15-2024 Urology Office/Clinic Note [...] with voice recognition artificial intelligence software, specifically Open Garden, TwoChop and or Air[employer]nergy. Substitutions may have occurred due to the [...] Urnls Dip Stick Auto w/o Microscopy POC 49464 Follow-up With When Contact Information MO HAYDEN, Yehuda Haddad, [address] [place] [address]- Additional Instructions: pending review of imaging Patient Education Kidney Stones, Vqjs-[id number]-[id number] Hematuria, Adult Problem List/Past Medical History Ongoing [...] content not included)... Normal [facility] Comment on above: Result Comment: Elec tronically Signed By: RAAD Back APRN, Radha Lopes\.br\Date and Time Signed: 07/15/24 15:39 EDT ECG 12 Leadon 03-06-2024 Sinus bradycardia with occasional PVCs Low voltage QRS Nonspecific ST change QTc [address] [facility] Work Phone: BASIC METABOLIC PANLon 02-17 Anion gap [Moles/Vol] 6 mmol/L Normal 5-15 [facility] Comment on above: Performed By: #### B MP, THYR #### [facility] ([id number]) [address], [address] [place] [address] Calcium [Mass/Vol] 9.8 mg/dL Normal 8.5-10.5 [facility] Comment on above: Performed By: #### B MP, THYR #### [facility] ([id number]) [address], [address] [place] [address] Chloride [Moles/Vol] 106 mmol/L Normal 98-109 [facility] Comment on above: Performed By: #### Win TAM, THYR #### [facility] ([id number]) [address] [place] [address] CO2 [Moles/Vol] 31 mmol/L Normal 22-32 [facility] Comment on above: Performed By: #### Win TAM, THYR #### [facility] ([id number]) [address] [place] [address] Creatinine [Mass/Vol] 0.90 mg/dL Normal 0.40-1.00 [facility] Comment on above: Result Comment: METH OD TRACEABLE TO IDMS STANDARD Performed By: #### Win TAM, THYR #### [facility] ([id number]) [address] [place] [address] GFR/1.73 sq M.predicted among non-blacks MDRD (S/P/Bld) [Vol rate/Area] 68 mL/min/{1.73_m2} Normal >59 [facility] Comment on above: Result Comment: Reported eGFR is based on the CKD-EPI 2020 equation that does not use a race coefficient. Performed By: #### Win TAM, THYR #### [facility] ([id number]) [address] [place] [address] Glucose [Mass/Vol] 105 mg/dL High 65-99 [facility] Comment on above: Performed By: #### Win TMA, THYR #### [facility] ([id number]) [address] [place] [address] Potassium [Moles/Vol] 4.2 mmol/L Normal 3.5-5.0 [facility] Comment on above: Performed By: #### Win TAM, THYR #### [facility] ([id number]) [address] [place] [address] Sodium [Moles/Vol] 143 mmol/L Normal 134-146 [facility] Comment on above: Performed By: #### B YONATAN, THYR #### [facility] ([id number]) [address], [address] [place] [address] Urea nitrogen [Mass/Vol] 19 mg/dL Normal 5-27 [facility] Comment on above: Performed By: #### B YONATAN, THYR #### [facility] ([id number]) [address], [address] [place] [address] Basic Metabolic Panelon 01-28 Anion gap [Moles/Vol] 6 mmol/L 5 - 15 mmol/L [facility] Calcium [Mass/Vol] 9.8 mg/dL 8.5 - 10.5 mg/dL [facility] Chloride [Moles/Vol] 106 mmol/L 98 - 109 mmol/L [facility] CO2 [Moles/Vol] 31 mmol/L 22 - 32 mmol/L [facility] Creatinine [Mass/Vol] 0.90 mg/dL 0.40 - 1.00 mg/dL [facility] Comment on above: METHOD TRACEABLE TO IDAZ STANDARD eGFR (CKD-EPI)non-race dependent 68 - PINF [facility] Comment on above: Reported eGFR is based on the CKD-EPI 2020 equation that does not use a race coefficient. Glucose [Mass/Vol] 105 mg/dL High 65 - 99 mg/dL [facility] Interpretation and review of laboratory results Abnormal [facility] Potassium [Moles/Vol] 4.2 mmol/L 3.5 - 5.0 mmol/L [facility] Sodium [Moles/Vol] 143 mmol/L 134 - 146 mmol/L [facility] Urea nitrogen [Mass/Vol] 19 mg/dL 5 - 27 mg/dL [facility] THYROID PROFILEon 02-18-2024 Free T4 [Mass/Vol] 1.92 ng/dL High 0.61-1.60 [facility] Comment on above: Performed By: #### B YONATAN, THYR #### [facility] ([id number]) [address], [address] [place] [address] TSH 0.58 uIU/mL Normal 0.49-4.67 [facility] Comment on above: Performed By: #### B MP, THYR #### [facility] ([id number]) [address] [place] [address] Thyroid profile includes TSH FT4on 02-18-2024 Free T4 [Mass/Vol] 1.92 ng/dL High 0.61 - 1.60 ng/dL [facility] Interpretation and review of laboratory results Abnormal [facility] TSH Qn 0.58 m[IU]/L [facility] Ambulatory Visit Summaryon 1 Ambulatory Visit Summary SUNDEEP FUENTESN :1950 Visit Date:10/26/2023 Ambulatory Visit Instructions Your Diagnosis Ureteral stone with hydronephrosis Kidney stone Tests Performed Urnls Dip Stick Auto w/o Microscopy POC 92603 Your Care Team Attending Physician - Yehuda [...] AM EST With: Where: [facility] Normal [address] [place] [address] [place] [address]- \.br\ You Need to Schedule the Following Appointments\.br\ Follow Up with MO HAYDEN, Yehuda Haddad, GENEVIEVEL When: \.br\ Where:\.br\ [facility] D\.br\ [place] [address]-\.br\ Medications\.br\ What How Much When Instructions\.br\ New potassium bicarbonate (K-Effervescent 25 mEq oral tablet, effervescent) 1 Tablets By Mouth 2 times a day Refills: 11 Pickup at [facility]\.br\ Unchanged allopurinol (allopurinol 300 mg Tab) [...] if questions or concerns \.br\ Pharmacy Information\.br\ [facility]: [address] [place] [id number] [phone]\.br\ \.br\ What How Much When Why Comments\.br\ Stop Taking tamsulosin (Flomax 0.4 mg Cap) 1 Capsules By Mouth Every day Right flank pain Kidney stones Gross hematuria\.br\ Test Results\.br\ Urnls Dip Stick Auto w/o Microscopy POC 38305 (10/26/2023)\.br\ Bilirubin Urine Dipstick - Negative\.br\ Blood Urine Dipstick - 3+ Large\.br\ Glucose Urine Dipstick - Negative\.br\ Ketones Urine Dipstick - Negative\.br\ Leukocytes Urine Dipstick - Negative\.br\ Nitrite Urine Dipstick - Negative\.br\ Protein Urine Dipstick - 2+ (100 mg/dl)\.br\ Specific Corinne Urine Dipstick - 1.025\.br\ Urine Appearance Urine Dipstick - Slightly cloudy\.br\ Urine Color Urine Dipstick - Yellow\.br\ Urobilinogen Urine Dipstick - Normal 0.2-1 EU/dl\.br\ pH Urine Dipstick - 5\.br\ Allergies\.br\ [place] (Unknown)\.br\ Dogs (Unknown)\.br\ Milk Products (Unknown)\.br\ Mold [...] ? \.br\ Have a salad and fruit [facility] Patient [...] Spinach (cooked), rhubarb, beets, sweet potatoes, and Mauritian chard. ? Peanuts. ? Potato chips, mongolian fries, and baked potatoes with skin on. ? Nuts and nut products. ? Chocolate. ? If you regularly take a diuretic medicine, make sure to eat at least 1 or 2 servings of fruits or vegetables that are high in potassium each day. These include: ? Avocado. ? Banana. ? [place], prune, carrot, or tomato juice. ? Baked [...] fish oil, or vitamin B6. ? Take yags-tua-qshqpfv and prescription medicines only as told by your health care provider. These include supplements. What foods sh (more content not included)... Normal [facility] RAD - MISCon 10-26-2023 [facility] [id number]#1 .00TIFF Normal [facility] [id number]#1 .00TIFF [facility] Urology Office/Clinic Noteon 10-26-2023 Urology Office/Clinic Note Chief Complaint CT Review HPI Staff 2 wk f/u with KUB. Saw DAXA at prior OV. Previous Dx: R flank pain, kidney stones, gross hematuria. S/p ESWL 11/18/20. CT AP wo con done 10/11/23 at [facility].Was given Tamsulosin, however stopped taking after [...] Information MO HAYDEN, Yehuda Haddad, URL [address] [place] [address]- Additional Instructions: 6 months Patient Education Dietary Guidelines to Help Prevent Kidney Stones IChantal, personally scribed for Dr. Hassan on 10/26/2023 09:08:12. . Documentation recorded by the scribeChantal, accurately reflects the services(s) I performed and [...] joint sup (more content not included)... Normal [facility] Comment on above: Result Comment: Elec tronically Signed By: Yehuda HASSAN MD\.br\Date and Time Signed: 10/26/23 09:11 EST\.br\Electronically Co-Signed By: Chantal Bishop\.br\Date and Time Co-Signed: 10/26/23 09:09 EST RAD - CT Reporton 10-15-2023 RAD - CT Report [id number] 1.00TIFF Normal [facility] RAD - CT Report [id number]#1 .00TIFF Normal [facility] RAD - MISCon 10-15-2023 RAD - MISC [id number]#1 .00TIFF [facility] RAD - MISC [id number] .00TIFF [facility] Ambulatory Visit Summaryon 1 12-10-2022 Ambulatory Visit Summary MIKY FUENTES :1950 Visit Date:10/09/2023 Ambulatory Visit Instructions Your Diagnosis Gross hematuria Right flank pain Tests Performed Urnls Dip Stick Auto w/o Microscopy POC 64568 Your Care Team Attending Physician - DORA [...] Urnls Dip Stick Auto w/o Microscopy POC 97093 (10/09/2023) Bilirubin Urine Dipstick - Negative Blood Urine Dipstick - 3+ Large Glucose Urine Dipstick - Negative Ketones Urine Dipstick - Negative Leukocytes Urine Dipstick - Negative Nitrite Urine Dipstick - Negative Protein Urine Dipstick - 3+ (300 mg/dl) Specific Corinne Urine Dipstick - >=1.030 Urine Appearance Urine Dipstick - Clear Urine Color Urine Dipstick - Yellow Urobilinogen Urine Dipstick - Normal 0.2-1 EU/dl pH Urine Dipstick - 5.5 Allergies [place] (Unknown) Dogs (Unknown) Milk Products (Unknown) Mold [...] for your care. Normal [facility] Patient Educationon 10-09-20 Patient Education Urology Hematuria, [...] these instructions at home: Medicines ? Take ammg-pjn-vvowtcj and prescription medicines only as told by [...] the blood stops without treatment. ? Take xagh-umw-dsqjmxm and prescription medicines only as told by your health care provider. ? Drink enough fluid to keep your urine pale yellow. This information is not intended to replace advice given to you by your health care provider. Make sure you discuss any questions you have with your health care provider. Document Revised: 06/15/2021 Document Reviewed: 06/15/2021 [employer] Patient Education ? 2022 [employer]. Normal [facility] Urology Office/Clinic Noteon 10-09-2023 Urology Office/Clinic Note [...] Daily, # 30 cap(s), Refills(s) 0, Pharmacy: [facility], 165, cm, 10/09/23 15:24:00 EST, Height/Length Dosing, 113, kg, 10/09/23 15:24:00 EST, Weight Dosing CT Abdomen w/o Contrast E&M of Est. Patient Moderate 30-39 Min 61644 2. Kidney stones (N20.0: Calculus of kidney) see #1 KUB from this spring showed several medium (6-7mm) R renal stones has had multiple lithotripsy in past Ordered: tamsulosin, 0.4 mg = 1 cap(s), Oral, Daily, # 30 cap(s), Refills(s) 0, Pharmacy: [facility], 165, cm, 10/09/23 15:24:00 EST, Height/Length Dosing, 113, kg, 10/09/23 15:24:00 EST, Weight Dosing CT Abdomen w/o Contrast E&M of Est. Patient Moderate 30-39 Min 46899 3. Gross hematuria (R31.0: Gross hematuria) see #1 Ordered: tamsulosin, 0.4 mg = 1 cap(s), Oral, Daily, # 30 cap(s), Refills(s) 0, Pharmacy: [facility], 165, cm, 10/09/23 15:24:00 EST, Height/Length Dosing, 113, kg, 10/09/23 15:24:00 EST, Weight Dosing CT Abdomen w/o Contrast E&M of Est. Patient Moderate 30-39 Min 66043 Urnls Dip Stick Auto w/o Microscopy POC 96369 Follow-up With When Contact Information DORA ALCAZAR PA-C, URL [address] [facility] [place] [address] Business (1) Additional Instructions: pending [...] content not included)... Normal [facility] Comment on above: Result Comment: Elec tronically Signed By: DORA ALCAZAR PA-C\.br\Date and Time Signed: 10/09/23 15:49 EST CREATININEon 03-05-2023 Creatinine [Mass/Vol] 1.16 mg/dL Critically high 0.55-1.02 [facility] Comment on above: Performed By: #### C AIYANA #### [facility] [address] [address] [address] Alysha Machuca EGFR-AF [facility] LUCIAN 56 mL/min/1.73m2 Critically low >=60 [facility] Comment on above: Performed By: #### C AIYANA #### [facility] [address] [address] [address] Alysha Machuca EGFR-NON AF [facility] LUCIAN 46 mL/min/1.73m2 Critically low >=60 [facility] Comment on above: Performed By: #### C AIYANA #### [facility] [address] [address] ABD/PELVIS WO CONon [...] patient's symptoms. 2.Cholelithiasis. Electronically authenticated by: KYLE CHEENY Date: 2023-03-05 15:08 Normal [facility] VITAMIN B1 (THIAMINE)on 01-28 Vit. B1, Whole Blood 132.2 nmol/L Normal 66.5-200.0 [facility] Comment on above: Performed By: #### V ITB1T ####[facility] [address] [address]Dr. Alysha Machuca CBC AUTO DIFFon 02-20-2023 BASO # 0.1 103/ul Normal 0.0-0.1 [facility] Comment on above: Performed By: #### C BC #### [facility] [address] [address] [address] Alysha Machuca Basophils/100 WBC (Bld) 0.9 % Normal 0.2-2.0 [facility] Comment on above: Performed By: #### C BC #### [facility] [address] [place] [address] Dr. Alysha Machuca EO # 0.2 103/ul Normal 0.0-0.7 [facility] Comment on above: Performed By: #### C BC #### [facility] [address] [address] [address] Alysha Machuca Eosinophils/100 WBC (Bld) 3.0 % Normal 0.9-7.0 [facility] Comment on above: Performed By: #### C BC #### [facility] [address] [address] [address] Alysha Machuca Erythrocyte distribution width (RBC) [Ratio] 13.9 % Normal 11.0-15.0 [facility] Comment on above: Performed By: #### C BC #### [facility] [address] [address] [address] Alysha Machuca Hematocrit (Bld) [Volume fraction] 39.5 % Normal 36.0-48.0 [facility] Comment on above: Performed By: #### C BC #### [facility] [address] [place] [address] Dr. Alysha Machuca Hemoglobin (Bld) [Mass/Vol] 12.7 g/dL Normal 12.0-16.0 [facility] Comment on above: Performed By: #### C BC #### [facility] [address] [place] [address] Dr. Alysha Machuca IG # 0.01 10e3/ul Normal 0.00-0.03 [facility] Comment on above: Performed By: #### C BC #### [facility] [address] [place] [address] Dr. Alysha Machuca IG % 0.2 % Normal 0.0-0.5 [facility] Comment on above: Performed By: #### C BC #### [facility] [address] [place] [address] Dr. Alysha Machuca LYMPH # 1.7 103/ul Normal 1.2-3.8 [facility] Comment on above: Performed By: #### C BC #### [facility] [address] [place] [address] Dr. Alysha Machuca Lymphocytes/100 WBC (Bld) 30.7 % Normal 20.5-60.0 [facility] Comment on above: Performed By: #### C BC #### [facility] [address] [place] [address] Dr. Alysha Machuca MANUAL DIFF REQ NO Normal [facility] Comment on above: Performed By: #### C BC #### [facility] [address] [place] [address] Dr. Alysha Machuca MCH (RBC) [Entitic mass] 29.3 pg Normal 26.7-34.0 [facility] Comment on above: Performed By: #### C BC #### [facility] [address] [place] [address] Dr. Alysha Machuca MCHC (RBC) [Mass/Vol] 32.2 g/dL Normal 29.9-35.2 [facility] Comment on above: Performed By: #### C BC #### [facility] [address] [place] [address] Dr. Alysha Machuca MCV (RBC) [Entitic vol] 91.0 fL Normal 81.0-99.0 [facility] Comment on above: Performed By: #### C BC #### [facility] [address] [place] [address] Dr. Alysha Machuca MONO # 0.4 103/ul Normal 0.3-0.8 [facility] Comment on above: Performed By: #### C BC #### [facility] [address] [place] [address] Dr. Alysha Machuca Monocytes/100 WBC (Bld) 6.8 % Normal 1.7-12.0 [facility] Comment on above: Performed By: #### C BC #### [facility] [address] [place] [address] Dr. Alysha Machuca NEUT # 3.3 103/ul Normal 1.4-6.5 [facility] Comment on above: Performed By: #### C BC #### [facility] [address] [place] [address] Dr. Alysha Machuca Neutrophils/100 WBC (Bld) 58.4 % Normal 43.0-75.0 [facility] Comment on above: Performed By: #### C BC #### [facility] [address] [place] [address] Dr. Alysha Machuca Platelet mean volume (Bld) [Entitic vol] 9.3 fL Critically low 9.5-13.5 [facility] Comment on above: Performed By: #### C BC #### [facility] [address] [place] [address] Dr. Alysha Machuca PLT 186 103/ul Normal 150-450 [facility] Comment on above: Performed By: #### C BC #### [facility] [address] [place] [address] Dr. Alysha Machuca RBC 4.34 106/ul Normal 4.20-5.40 [facility] Comment on above: Performed By: #### C BC #### [facility] [address] [place] [address] Dr. Alysha Machuca WBC 5.6 103/ul Normal 4.0-11.0 [facility] Comment on above: Performed By: #### C BC #### [facility] [address] [address] [address] Alysha Machuca FERRITINon 02-20-2023 Ferritin [Mass/Vol] 36.0 ng/mL Normal 8.0-252.0 [facility] Comment on above: Performed By: #### F ERR, B12FOL, FETIBC, VITAD ####[facility] [address] [address]Dr. Alysha Machuca IRON AND TIBCon 02-20-2023 % SATURATION 15.8 % Normal [facility] Comment on above: Performed By: #### F ERR, B12FOL, FETIBC, VITAD ####[facility] [address] [address]Dr. Alysha Machuca Iron [Mass/Vol] 53.0 ug/dL Normal 50.0-170.0 [facility] Comment on above: Performed By: #### F ERR, B12FOL, FETIBC, VITAD ####[facility] [address] [address]Dr. Alysha Machuca TIBC DIRECT 335.0 ug/dL Normal 250.0-450.0 [facility] Comment on above: Performed By: #### F ERR, B12FOL, FETIBC, VITAD ####[facility] [address] [address]Dr. Alysha Machuca MAGNESIUMon 02-20-2023 Magnesium [Mass/Vol] 1.9 mg/dL Normal 1.8-2.4 [facility] Comment on above: Performed By: #### P HOS, CMP, MG #### [facility] [address] [address] [address] Alysha Machuca PHOSPHORUSon 02-20-2023 Phosphate [Mass/Vol] 3.9 mg/dL Normal 2.6-4.7 [facility] Comment on above: Performed By: #### P HOS, CMP, MG #### [facility] [address] [address] [address] Alysha Machuca PROF 14(COMP METB)on 023 Albumin [Mass/Vol] 3.4 g/dL Normal 3.4-5.0 [facility] Comment on above: Performed By: #### P HOS, CMP, MG #### [facility] [address] [address] [address] Alysha Machuca Albumin/Globulin [Mass ratio] 0.9 {ratio} Normal [facility] Comment on above: Performed By: #### P HOS, CMP, MG #### [facility] [address] [address] [address] Alysha Machuca ALP [Catalytic activity/Vol] 123 U/L Critically high 46-116 [facility] Comment on above: Performed By: #### P HOS, CMP, MG #### [facility] [address] [address] [address] Alysha Machuca ALT [Catalytic activity/Vol] 21 U/L Normal 14-59 [facility] Comment on above: Performed By: #### P HOS, CMP, MG #### [facility] [address] [address] [address] Alysha Machuca Anion gap [Moles/Vol] 13.8 mmol/L Normal [facility] Comment on above: Performed By: #### P HOS, CMP, MG #### [facility] [address] [address] [address] Alysha Machuca AST [Catalytic activity/Vol] 15 U/L Normal 15-37 [facility] Comment on above: Performed By: #### P HOS, CMP, MG #### [facility] [address] [address] [address] Alysha Machuca Bilirubin [Mass/Vol] 0.5 mg/dL Normal 0.2-1.0 [facility] Comment on above: Performed By: #### P HOS, CMP, MG #### [facility] [address] [address] [address] Alysha Machuca Calcium [Mass/Vol] 9.6 mg/dL Normal 8.5-10.1 [facility] Comment on above: Performed By: #### P HOS, CMP, MG #### [facility] [address] [address] [address] Alysha Machuca Chloride [Moles/Vol] 103 mmol/L Normal 98-107 [facility] Comment on above: Performed By: #### P HOS, CMP, MG #### [facility] [address] [place] [address] Dr. Alysha Machuca CO2 [Moles/Vol] 25.2 mmol/L Normal 21.0-32.0 [facility] Comment on above: Performed By: #### P HOS, CMP, MG #### [facility] [address] [address] [address] Alysha Machuca Creatinine [Mass/Vol] 0.95 mg/dL Normal 0.55-1.02 [facility] Comment on above: Performed By: #### P HOS, CMP, MG #### [facility] [address] [place] [address] Dr. Alysha Machuca EGFR-AF [facility] LUCIAN >60 Normal >=60 [facility] Comment on above: Performed By: #### P HOS, CMP, MG #### [facility] [address] [place] [address] Dr. Alysha Machuca EGFR-NON AF [facility] LUCIAN 58 mL/min/1.73m2 Critically low >=60 [facility] Comment on above: Performed By: #### P HOS, CMP, MG #### [facility] [address] [place] [address] Dr. Alysha Machuca Globulin (S) [Mass/Vol] 3.6 g/dL Normal [facility] Comment on above: Performed By: #### P HOS, CMP, MG #### [facility] [address] [place] [address] Dr. Alysha Machuca Glucose [Mass/Vol] 96 mg/dL Normal 74-106 [facility] Comment on above: Performed By: #### P HOS, CMP, MG #### [facility] [address] [place] [address] Dr. Alysha Machuca Potassium [Moles/Vol] 4.0 mmol/L Normal 3.5-5.1 [facility] Comment on above: Performed By: #### P HOS, CMP, MG #### [facility] [address] [address] [address] Alysha Machuca Protein [Mass/Vol] 7.0 g/dL Normal 6.4-8.2 [facility] Comment on above: Performed By: #### P HOS, CMP, MG #### [facility] [address] [address] [address] Alysha Machuca Sodium [Moles/Vol] 138 mmol/L Normal 136-145 [facility] Comment on above: Performed By: #### P HOS, CMP, MG #### [facility] [address] [address] [address] Alysha Machuca Urea nitrogen [Mass/Vol] 21.0 mg/dL Critically high 7.0-18.0 [facility] Comment on above: Performed By: #### P HOS, CMP, MG #### [facility] [address] [address] [address] Alysha Machuca Urea nitrogen/Creatini ne [Mass ratio] 22.1 mg/mg Normal [facility] Comment on above: Performed By: #### P HOS, CMP, MG #### [facility] [address] [address] [address] Alysha Machuca VIT B12 AND FOLATEon 023 Cobalamin (Vitamin B12) [Mass/Vol] 652.0 pg/mL Normal 193.0-986.0 [facility] Comment on above: Performed By: #### F ERR, B12FOL, FETIBC, VITAD ####[facility] [address] [address]Dr. Alysha Machuca FOLATE 18.30 ng/mL Normal 8.60-58.90 [facility] Comment on above: Performed By: #### F ERR, B12FOL, FETIBC, VITAD ####[facility] [address] [address]Dr. Alysha Machuca VITAMIN D 25 OHon 02-20-2023 VIT D 25-OH 41.7 ng/mL Normal [facility] Comment on above: Performed By: #### F ERR, B12FOL, FETIBC, VITAD ####[facility] [address] [place], [place] [address]Gv. Alysha Machuca VIT D RANGES SEE BELOW Normal [facility] Comment on above: Result Comment: <20 ng/mL Vit D deficient 20 - <30 ng/mL Vit D insufficient 30 - 100 ng/mL Vit D sufficient >100 ng/mL Potential Toxicity Performed By: #### F ERR, B12FOL, FETIBC, VITAD ####[facility] [address] [place], [place] [address]Lg. Alysha Machuca XR KUB 1 VIEWon 02-20-2023 [...] KYLE CHENEY Date: 2023-02-20 15:57 Normal [facility] Office Visit (Cardiology)on 12-06-2022 Follow-up visit Diagnoses/Problems Assessed Anticoagulated (V58.61) (Z79.01) Hyperlipidemia (272.4) (E78.5) Non-ischemic cardiomyopathy (425.4) (I42.8) Paroxysmal atrial fibrillation (427.31) (I48.0) Class 2 obesity with body mass index (BMI) of 36.0 to 36.9 in adult (278.00,V85.36) (E66.9,Z68.36) Never a smoker Orders Class 2 obesity with body mass index (BMI) of 36.0 to 36.9 in adult Healthy Weight Tips; Status:Complete; Done: 06Dec2022 Some eating tips that can help you lose weight.; Status:Complete; Done: 06Dec2022 Hyperlipidemia Renew: Lovastatin 10 MG Oral Tablet; TAKE 1 TABLET DAILY DIRECTED Paroxysmal atrial fibrillation IO EKG Electrocardiogram- 12 Lead; Status:Complete; Done: 06Dec2022 SocHx: Never a smoker Tobacco Use Screening; Status:Complete; Done: [id number] Patient Instructions Please bring all medicines, vitamins, [...] MG Oral TabletTAKE 1 TABLET Twice daily Jackson 3 [place] DIRECTED. Tylenol Arthritis Ext Relief [...] negative for complaint. Vitals Vital Signs Recorded: [id number] 01:27PM Heart Rate43, Apical Sfulgjqr565, RUE, Sitting Dlkxlslha30, RUE, Sitting Height5 ft 5 in Cuesrl178 lb BMI Gtshxjztgg33.94 kg/m2 BSA Calculated2.07 Tobacco Useb) No PHQ-2 [...] Exam Constitutional (more content not included)... Normal [employer] Tobacco Screening.on 023 Adult depression screening assessment No [facility] [employer] y 250 DO Work Phone: Fall risk assessment a) No falls within the last year [facility] [employer] y 250 DO Work Phone: Tobacco use status CP b) No [facility] [employer] y 250 DO Work Phone: VC INJ SCL [employer] TECHNICIAN VEINSon 0 11-03-2022 VC INJ [facility]CL [employer] VEINS Patient: MIKY FUENTES Exam Date: 11/03/2022 : 1950 Gender:F Ordering : DR WILLARD SHARMA M.D. Admission #: [id number] Family : Order #: [id number] CLICK HERE TO VIEW EXAM RADIOLOGY REPORT PROCEDURE: VEIN CENTER INJECTION SCLEROSING SOLUTION MULTIPLE VEINS SAME COMPARISON: VC INJ SCL [employer] TECHNICIAN VEINS, 10/27/2022. VC INJ SCL [employer] TECHNIC[employer] VEINS, 10/16/2022. INDICATIONS: Pain co-occurrent and due [...] Sharma MD on 11/03/2022 at 12:37 Normal [facility] XR KUB 1 VIEWon 11-03-2022 XR [...] by: KYLE CHENEY Date: 2022-11-03 12:52 Normal [facility] VC INJ SCL [employer] PR[employer]HETIC TECHNICIAN VEINSon 1 VC INJ SCL [employer] TECHNIC[employer] VEINS Patient: MIKY FUENTES Exam Date: 10/27/2022 : 1950 Gender:F Ordering : DR WILLARD SHARMA M.D. Admission #: [id number] Family : Order #: [id number] CLICK HERE TO VIEW EXAM RADIOLOGY REPORT PROCEDURE: VEIN CENTER INJECTION SCLEROSING SOLUTION MULTIPLE VEINS SAME COMPARISON: VC INJ SCL [employer] TECHNICIAN VEINS, 10/16/2022. VC INJ SCL [employer] TECHNICIAN VEINS, 10/06/2022. INDICATIONS: Pain co-occurrent and due [...] Sharma MD on 10/27/2022 at 11:46 Normal [facility] VC INJ SCL [employer] PROSTHET[employer] TECHNICIAN VEINSon 1 12-17-2021 VC INJ SCL [employer] TECHNICIAN VEINS Patient: MIKY FUENTES Exam Date: 10/16/2022 : 1950 Gender:F Ordering : DR WILLARD SHARMA M.D. Admission #: [id number] Family : Order #: [id number] CLICK HERE TO VIEW EXAM RADIOLOGY REPORT PROCEDURE: VEIN CENTER INJECTION SCLEROSING SOLUTION MULTIPLE VEINS SAME COMPARISON: VC INJ SCL [employer] TECHNICIAN VEINS, 10/06/2022. INDICATIONS: Pain co-occurrent and due [...] Cheney M.D. on 10/17/2022 at 08:12 Normal [facility] CREATININEon 10-10-2022 Creatinine [Mass/Vol] 1.11 mg/dL Critically high 0.55-1.02 [facility] Comment on above: Performed By: #### C AIYANA ####[facility] [address] [address]Dr. Alysha Machuca EGFR-AF [facility] LUCIAN 59 mL/min/1.73m2 Critically low >=60 [facility] Comment on above: Performed By: #### C AIYANA ####[facility] [address] [address]Dr. Alysha Machuca EGFR-NON AF [facility] LUCIAN 48 mL/min/1.73m2 Critically low >=60 [facility] Comment on above: Performed By: #### C AIYANA ####[facility] [address] [address]Dr. Aylsha Machuca VC INJ SCL [employer] PROSTHET[employer] TECHNICIAN VEINSon 1 12-07-2021 VC INJ SCL [employer] TECHNICIAN VEINS Patient: MIKY FUENTES Exam Date: 10/06/2022 : 1950 Gender:F Ordering : DR WILLARD SHARMA M.D. Admission #: [id number] Family : Order #: [id number] CLICK HERE TO VIEW EXAM RADIOLOGY REPORT [...] Sharma MD on 10/06/2022 at 13:45 Normal [facility] VC CONSULT FOLLOWUPon 2021 VC CONSULT FOLLOWUP Patient: MIKY FUENTES Exam Date: 09/26/2022 : 1950 Gender:F Ordering : DR WILLARD SHARMA M.D. Admission #: [id number] Family : Order #: [id number] CLICK HERE TO VIEW EXAM RADIOLOGY REPORT [...] Cheney M.D. on 09/26/2022 at 15:46 Normal [facility] VC EXT VENOUS RT LIMITEDon 1 11-26-2021 VC EXT VENOUS RT LIMITED Patient: MIKY FUENTES Exam Date: 09/26/2022 : 1950 Gender:F Ordering : DR WILLARD SHARMA M.D. Admission #: [id number] Family : Order #: [id number] CLICK HERE TO VIEW EXAM RADIOLOGY REPORT [...] Kyle Cheney M.D. on 09/26/2022 at 15:44 [facility] VC INJ FOAM SCLERO W US MLTI on 09-20-2022 VC INJ FOAM SCLERO W US MLTI Patient: MIKY FUENTES Exam Date: 09/20/2022 : 1950 Gender:F Ordering : DR WILLARD SHARMA M.D. Admission #: [id number] Family : Order #: [id number] CLICK HERE TO VIEW EXAM RADIOLOGY REPORT [...] Kyle Cheney M.D. on 09/20/2022 at 15:43 Normal [facility] VC CONSULT FOLLOWUPon 2021 VC CONSULT FOLLOWUP Patient: MIKY FUENTES Exam Date: 09/07/2022 : 1950 Gender:F Ordering : DR WILLARD SHARMA M.D. Admission #: [id number] Family : Order #: [id number] CLICK HERE [...] Sharma MD on 09/07/2022 at 13:04 Normal [facility] VC EXT VENOUS LT LIMITEDon 1 11-07-2021 VC EXT VENOUS LT LIMITED Patient: MIKY FUENTES Exam Date: 09/07/2022 : 1950 Gender:F Ordering : DR WILLARD SHARMA M.D. Admission #: [id number] Family : Order #: [id number] CLICK HERE TO VIEW EXAM RADIOLOGY REPORT [...] Sharma MD on 09/07/2022 at 11:59 Normal [facility] CBC AUTO DIFFon 09-01-2022 BASO # 0.0 103/ul Normal 0.0-0.1 [facility] Comment on above: Performed By: #### C BC #### [facility] [address] [address] [address] Alysha Machuca Basophils/100 WBC (Bld) 0.6 % Normal 0.2-2.0 [facility] Comment on above: Performed By: #### C BC #### [facility] [address] [place] [address] Dr. Alysha Mcahuca EO # 0.3 103/ul Normal 0.0-0.7 [facility] Comment on above: Performed By: #### C BC #### [facility] [address] [place] [address] Dr. Alysha Machuca Eosinophils/100 WBC (Bld) 4.3 % Normal 0.9-7.0 [facility] Comment on above: Performed By: #### C BC #### [facility] [address] [place] [address] Dr. Alysha Machuca Erythrocyte distribution width (RBC) [Ratio] 14.6 % Normal 11.0-15.0 [facility] Comment on above: Performed By: #### C BC #### [facility] [address] [place] [address] Dr. Alysha Machuca Hematocrit (Bld) [Volume fraction] 39.7 % Normal 36.0-48.0 [facility] Comment on above: Performed By: #### C BC #### [facility] [address] [place] [address] Dr. Alysha Machuca Hemoglobin (Bld) [Mass/Vol] 13.1 g/dL Normal 12.0-16.0 [facility] Comment on above: Performed By: #### C BC #### [facility] [address] [place] [address] Dr. Alysha Machuca IG # 0.01 10e3/ul Normal 0.00-0.03 [facility] Comment on above: Performed By: #### C BC #### [facility] [address] [place] [address] Dr. Alysha Machuca IG % 0.2 % Normal 0.0-0.5 [facility] Comment on above: Performed By: #### C BC #### [facility] [address] [place] [address] Dr. Alysha Machuca LYMPH # 1.9 103/ul Normal 1.2-3.8 [facility] Comment on above: Performed By: #### C BC #### [facility] [address] [place] [address] Dr. Alysha Machuca Lymphocytes/100 WBC (Bld) 29.5 % Normal 20.5-60.0 [facility] Comment on above: Performed By: #### C BC #### [facility] [address] [place] [address] Dr. Alysah Machuca MANUAL DIFF REQ NO Normal [facility] Comment on above: Performed By: #### C BC #### [facility] [address] [place] [address] Dr. Alysha Machuca MCH (RBC) [Entitic mass] 29.8 pg Normal 26.7-34.0 [facility] Comment on above: Performed By: #### C BC #### [facility] [address] [place] [address] Dr. Alysha Machuca MCHC (RBC) [Mass/Vol] 33.0 g/dL Normal 29.9-35.2 [facility] Comment on above: Performed By: #### C BC #### [facility] [address] [place] [address] Dr. Alysha Machuca MCV (RBC) [Entitic vol] 90.2 fL Normal 81.0-99.0 [facility] Comment on above: Performed By: #### C BC #### [facility] [address] [place] [address] Dr. Alysha Machuca MONO # 0.5 103/ul Normal 0.3-0.8 [facility] Comment on above: Performed By: #### C BC #### [facility] [address] [place] [address] Dr. Alysha Machuca Monocytes/100 WBC (Bld) 7.0 % Normal 1.7-12.0 [facility] Comment on above: Performed By: #### C BC #### [facility] [address] [place] [address] Dr. Alysha Machuca NEUT # 3.8 103/ul Normal 1.4-6.5 [facility] Comment on above: Performed By: #### C BC #### [facility] [address] [place] [address] Dr. Alysha Machuca Neutrophils/100 WBC (Bld) 58.4 % Normal 43.0-75.0 [facility] Comment on above: Performed By: #### C BC #### [facility] [address] [place] [address] Dr. Alysha Machuca Platelet mean volume (Bld) [Entitic vol] 9.5 fL Normal 9.5-13.5 [facility] Comment on above: Performed By: #### C BC #### [facility] [address] [place] [address] Dr. Alysha Machuca PLT 235 103/ul Normal 150-450 [facility] Comment on above: Performed By: #### C BC #### [facility] [address] [place] [address] Dr. Alysha Machuca RBC 4.40 106/ul Normal 4.20-5.40 [facility] Comment on above: Performed By: #### C BC #### [facility] [address] [place] [address] Dr. Alysha Machuca WBC 6.6 103/ul Normal 4.0-11.0 [facility] Comment on above: Performed By: #### C BC #### [facility] [address] [place] [address] Dr. Alysha Machuca PROF CHEM 8 (BAS METB)on Anion gap [Moles/Vol] 7.7 mmol/L Normal [facility] Comment on above: Performed By: #### B MP ####[facility] [address] [place], [place] [address]Dr. Alysha Machuca Calcium [Mass/Vol] 9.8 mg/dL Normal 8.5-10.1 [facility] Comment on above: Performed By: #### B MP ####[facility] [address] [place], [place] [address]Dr. Alysha Machuca Chloride [Moles/Vol] 104 mmol/L Normal 98-107 [facility] Comment on above: Performed By: #### B MP ####[facility] [address] [address]Dr. Alysha Machuca CO2 [Moles/Vol] 29.2 mmol/L Normal 21.0-32.0 [facility] Comment on above: Performed By: #### B MP ####[facility] [address] [address]Dr. Alysha Machuca Creatinine [Mass/Vol] 1.05 mg/dL Critically high 0.55-1.02 [facility] Comment on above: Performed By: #### B MP ####[facility] [address] [address]Dr. Alysha Machuca EGFR-AF [facility] LUCIAN >60 Normal >=60 [facility] Comment on above: Performed By: #### B MP ####[facility] [address] [place], [place] [address]Dr. Alysha Machuca EGFR-NON AF [facility] LUCIAN 52 mL/min/1.73m2 Critically low >=60 [facility] Comment on above: Performed By: #### B MP ####[facility] [address] [place], [place] [address]Dr. Alysha Machuca Glucose [Mass/Vol] 107 mg/dL Critically high 74-106 [facility] Comment on above: Performed By: #### B MP ####[facility] [address] [place], [place] [address]Dr. Alysha Machuca Potassium [Moles/Vol] 3.9 mmol/L Normal 3.5-5.1 [facility] Comment on above: Performed By: #### B MP ####[facility] [address] [place], [place] [address]Dr. Alysha Machuca Sodium [Moles/Vol] 137 mmol/L Normal 136-145 [facility] Comment on above: Performed By: #### B MP ####[facility] [address] [place], [place] [address]Dr. Alysha Machuca Urea nitrogen [Mass/Vol] 16.0 mg/dL Normal 7.0-18.0 [facility] Comment on above: Performed By: #### B MP ####[facility] [address] [place], [place] [address]Sz. Alysha Machuca Urea nitrogen/Creatini ne [Mass ratio] 15.2 mg/mg Normal [facility] Comment on above: Performed By: #### B MP ####[facility] [address] [place], [place] [address]Ds. Alysha Machuca VC INJ FOAM SCLERO W US MLTI on 08-31-2022 VC INJ FOAM SCLERO W US MLTI Patient: MIKY FUENTES Exam Date: 08/31/2022 : 1950 Gender:F Ordering : DR WILLARD SHARMA M.D. Admission #: [id number] Family : Order #: [id number] CLICK HERE TO VIEW EXAM RADIOLOGY REPORT [...] compressi (more content not included)... Normal [facility] VC CONSULT FOLLOWUPon 2021 VC CONSULT FOLLOWUP Patient: MIKY FUENTES Exam Date: 08/22/2022 : 1950 Gender:F Ordering : DR WILLARD SHARMA M.D. Admission #: [id number] Family : Order #: [id number] CLICK HERE TO VIEW EXAM RADIOLOGY REPORT [...] Sharma MD on 08/22/2022 at 10:45 Normal [facility] VC EXT VENOUS RT LIMITEDon 1 VC EXT VENOUS RT LIMITED Patient: MIKY FUENTES Exam Date: 08/22/2022 : 1950 Gender:F Ordering : DR WILLARD SHARMA M.D. Admission #: [id number] Family : Order #: [id number] CLICK HERE TO VIEW EXAM RADIOLOGY REPORT [...] Willard Sharma MD on 08/22/2022 at 10:21 Normal [facility] VC INJ FOAM SCLERO W US MLTI on 08-17-2022 VC INJ FOAM SCLERO W US MLTI Patient: MIKY FUENTES Exam Date: 08/17/2022 : 1950 Gender:F Ordering : DR WILLARD SHARMA M.D. Admission #: [id number] Family : Order #: [id number] CLICK HERE TO VIEW EXAM RADIOLOGY REPORT PROCEDURE: VEIN CENTER INJECTION FOAM SCLEROSING SOLUTION WITH ULTRASOUND MULTIPLE VEINS COMPARISON: VC INJ FOAM SCLERO W US MLTI, 08/01/2022. VC INJ FOAM SCLERO W [facility], 07/12/2022. Pre-operative Diagnosis: CEAP class C4a venous [...] take (more content not included)... Normal [facility] VC CONSULT FOLLOWUPon 2021 VC CONSULT FOLLOWUP Patient: MIKY FUENTES Exam Date: 08/07/2022 : 1950 Gender:F Ordering : DR WILLARD SHARMA M.D. Admission #: [id number] Family : Order #: [id number] CLICK HERE TO VIEW EXAM RADIOLOGY REPORT [...] Sharma MD on 08/07/2022 at 13:31 Normal [facility] VC EXT VENOUS LT LIMITEDon 1 VC EXT VENOUS LT LIMITED Patient: MIKY FUENTES Exam Date: 08/07/2022 : 1950 Gender:F Ordering : DR WILLARD SHARMA M.D. Admission #: [id number] Family : Order #: [id number] CLICK HERE TO VIEW EXAM RADIOLOGY REPORT [...] Willard Sharma MD on 08/07/2022 at 12:01 [facility] VC INJ FOAM SCLERO W US MLTI on 08-01-2022 VC INJ FOAM SCLERO W US MLTI Patient: MIKY FUENTES Exam Date: 08/01/2022 : 1950 Gender:F Ordering : DR WILLARD SHARMA M.D. Admission #: [id number] Family : Order #: [id number] CLICK HERE TO VIEW EXAM RADIOLOGY REPORT [...] compr (more content not included)... Normal [facility] VC CONSULT FOLLOWUPon 2021 VC CONSULT FOLLOWUP Patient: MIKY FUENTES Exam Date: 07/17/2022 : 1950 Gender:F Ordering : DR WILLARD SHARMA M.D. Admission #: [id number] Family : Order #: [id number] CLICK HERE TO VIEW EXAM RADIOLOGY REPORT [...] Cheney M.D. on 07/17/2022 at 12:18 Normal [facility] VC EXT VENOUS RT LIMITEDon 0 07-17-2022 VC EXT VENOUS RT LIMITED Patient: MIKY FUENTES Exam Date: 07/17/2022 : 1950 Gender:F Ordering : DR WILLARD SHARMA M.D. Admission #: [id number] Family : Order #: [id number] CLICK HERE TO VIEW EXAM RADIOLOGY REPORT [...] Kyle Cheney M.D. on 07/17/2022 at 12:14 Normal [facility] VC INJ FOAM SCLERO W US MLTI on 07-12-2022 VC INJ FOAM SCLERO W US MLTI Patient: MIKY FUENTES Exam Date: 07/12/2022 : 1950 Gender:F Ordering : DR WILLARD SHARMA M.D. Admission #: [id number] Family : Order #: [id number] CLICK HERE TO VIEW EXAM RADIOLOGY REPORT [...] da (more content not included)... Normal [facility] VC CONSULT FOLLOWUPon 2021 VC CONSULT FOLLOWUP Patient: MIKY FUENTES Exam Date: 06/30/2022 : 1950 Gender:F Ordering : DR WILLARD SHARMA M.D. Admission #: [id number] Family : Order #: [id number] CLICK HERE TO VIEW EXAM RADIOLOGY REPORT [...] Sharma MD on 06/30/2022 at 13:21 Normal [facility] VC EXT VENOUS LT LIMITEDon 0 06-30-2022 VC EXT VENOUS LT LIMITED Patient: MIKY FUENTES Exam Date: 06/30/2022 : 1950 Gender:F Ordering : DR WILLARD SHARMA M.D. Admission #: [id number] Family : Order #: [id number] CLICK HERE TO VIEW EXAM RADIOLOGY REPORT [...] Sharma MD on 06/30/2022 at 13:02 Normal [facility] ALBUMIN, RANDOM URINE W/CREA PROon 06-26-2022 ALBUMIN, URINE 12.7 mg/dL Normal See Note: [facility] Comment on above: Result Comment: Refe rence Range: Reference Range Not established Performed By: #### 7 600, 496, 42392, 8517 #### [facility] [address], [address] [place] [address] Engine Inspector: Marek Subramanian MD ALBUMIN/CREATININ E RATIO, RANDOM [...] category. Performed By: #### 7 600, 496, 88014, 8717 #### [facility] [address], [address] [place] [address] Engine Inspector: Marek Subramanian MD Creatinine (U) [Mass/Vol] 205 mg/dL Normal 20-275 [facility] Comment on above: Performed By: #### 7 600, 496, 97074, 6517 #### [facility] [address], [address] [place] [address] Engine Inspector: Marek Subramanian MD [facility] 06-26-2022 Albumin [Mass/Vol] 3.9 g/dL Normal 3.6-5.1 [facility] Comment on above: Performed By: #### 7 600, 496, 90259, 6517 #### [facility] [address] [address] Engine Inspector: Marek Subramanian MD Albumin/Globulin [Mass ratio] 1.4 {ratio} Normal 1.0-2.5 [facility] Comment on above: Performed By: #### 7 600, 496, 76004, 6517 #### [facility] [address] [address] Engine Inspector: Marek Subramanian MD ALP [Catalytic activity/Vol] 106 U/L Normal 37-153 [facility] Comment on above: Performed By: #### 7 600, 496, 00694, 6517 #### [facility] [address] [place] [address] Engine Inspector: Marek Subramanian MD ALT [Catalytic activity/Vol] 10 U/L Normal 6-29 [facility] Comment on above: Performed By: #### 7 600, 496, 92628, 6517 #### [facility] [address] [address] Engine Inspector: Marek Subramanian MD AST [Catalytic activity/Vol] 13 U/L Normal 10-35 [facility] Comment on above: Performed By: #### 7 600, 496, 32238, 6517 #### [facility] [address] [place] [address] Engine Inspector: Marek Subramanian MD Bilirubin [Mass/Vol] 0.8 mg/dL Normal 0.2-1.2 [facility] Comment on above: Performed By: #### 7 600, 496, 43097, 6517 #### [facility] [address] [address] Engine Inspector: Marek Subramanian MD BUN/CREATININE RATIO NOT APPLICABLE Normal 6-22 [facility] Comment on above: Performed By: #### 7 600, 496, 62602, 6517 #### [facility] [address] [place] [address] Engine Inspector: Marek Subramanian MD Calcium [Mass/Vol] 9.9 mg/dL Normal 8.6-10.4 [facility] Comment on above: Performed By: #### 7 600, 496, 92328, 6517 #### [facility] [address] [place] [address] Engine Inspector: Marek Subramanian MD Chloride [Moles/Vol] 109 mmol/L Normal 98-110 [facility] Comment on above: Performed By: #### 7 600, 496, 50971, 6517 #### [facility] [address] [place] [address] Engine Inspector: Marek Subramanian MD CO2 [Moles/Vol] 24 mmol/L Normal 20-32 [facility] Comment on above: Performed By: #### 7 600, 496, 72674, 6517 #### [facility] [address] [address] Engine Inspector: Marek Subramanian MD Creatinine [Mass/Vol] 0.88 mg/dL Normal 0.60-1.00 [facility] Comment on above: Performed By: #### 7 600, 496, 45065, 6517 #### [facility] [address] [address] Engine Inspector: Marek Subramanian MD GFR/1.73 sq M.predicted among non-blacks MDRD (S/P/Bld) [Vol rate/Area] 70 mL/min/{1.73_m2} Normal > OR = 60 [facility] Comment on above: Result Comment: The eGFR is based on the CKD-EPI 2020 equation. To calculate the new eGFR from a previous Creatinine or Cystatin C result, go to https://www.kidney.org/professionals/ kdoqi/gfr%5Fcalculator Performed By: #### 7 600, 496, 61772, 6517 #### [facility] [place] [address] Engine Inspector: Marek Subramanian MD Globulin (S) [Mass/Vol] 2.7 g/dL Normal 1.9-3.7 [facility] Comment on above: Performed By: #### 7 600, 496, 90271, 6517 #### [facility] [place] [address] Engine Inspector: Marek Subramanian MD Glucose [Mass/Vol] 91 mg/dL Normal 65-99 [facility] Comment on above: Result Comment: Fasting reference interval Performed By: #### 7 600, 496, 08779, 6517 #### [facility] [place] [address] Engine Inspector: Marek Subramanian MD Potassium [Moles/Vol] 4.0 mmol/L Normal 3.5-5.3 [facility] Comment on above: Performed By: #### 7 600, 496, 46313, 6517 #### [facility] [place] [address] Engine Inspector: Marek Subramanian MD Protein [Mass/Vol] 6.6 g/dL Normal 6.1-8.1 [facility] Comment on above: Performed By: #### 7 600, 496, 23947, 6517 #### [facility] [place] [address] Engine Inspector: Marek Subramanian MD Sodium [Moles/Vol] 143 mmol/L Normal 135-146 [facility] Comment on above: Performed By: #### 7 600, 496, 72769, 6517 #### [facility] [place] [address] Engine Inspector: Marek Subramanian MD Urea nitrogen [Mass/Vol] 15 mg/dL Normal 7-25 [facility] Comment on above: Performed By: #### 7 600, 496, 95898, 6517 #### [facility] [address] [address], [address] [place] [address] Engine Inspector: Marek Subramanian MD HEMOGLOBIN A1con 06-26-2022 HEMOGLOBIN [...] diagnosis of diabetes in children. According to [place] Diabetes Association (ADA) guidelines, hemoglobin A1c <7.0% represents optimal control in non- diabetic patients. Different metrics may apply to specific patient populations. Standards of Medical Care in Diabetes(ADA). Performed By: #### 7 600, 496, 14554, 6517 #### [facility] [place] [address] Engine Inspector: Marek Subramanian MD LIPID PANEL, STANDARDon 05-30 Cholesterol [Mass/Vol] 171 mg/dL Normal <200 [facility] Comment on above: Order Comment: FASTI NG:YES FASTING: YES Performed By: #### 7 600, 496, 26245, 6517 #### [facility] [place] [address] Engine Inspector: Marek Subramanian MD Cholesterol in HDL [Mass/Vol] 60 mg/dL Normal > OR = 50 [facility] Comment on above: Order Comment: FASTI NG:YES FASTING: YES Performed By: #### 7 600, 496, 51557, 6517 #### [facility] [place] [address] Engine Inspector: Marek Subramanian MD Cholesterol in LDL [Mass/Vol] [...] LDL-C. Nikita SS et al. LEWIS. 2013;310(19): 4775-6891 (http://education.Modumetal/faq/HPM831) Performed By: #### 7 600, 496, 38976, 6517 #### [facility] [address], [address] [place] [address] Engine Inspector: Marek Subramanian MD Cholesterol.total /Cholesterol in HDL [Mass ratio] 2.9 {ratio} Normal <5.0 [facility] Comment on above: Order Comment: FASTI NG:YES FASTING: YES Performed By: #### 7 600, 496, 94895, 6517 #### [facility] [place] [address] Engine Inspector: Marek Subramanian MD NON HDL CHOLESTEROL 111 mg/dL (calc) Normal <130 [facility] Comment on above: Order Comment: FASTI NG:YES FASTING: YES Result Comment: For patients with diabetes plus 1 major ASCVD risk factor, treating to a non-HDL-C goal of <100 mg/dL (LDL-C of <70 mg/dL) is considered a therapeutic option. Performed By: #### 7 600, 496, 36007, 6517 #### [facility] [place] [address] Engine Inspector: Marek Subramanian MD Triglyceride [Mass/Vol] 95 mg/dL Normal <150 [facility] Comment on above: Order Comment: FASTI NG:YES FASTING: YES Performed By: #### 7 600, 496, 60288, 6517 #### [facility] [place] [address] Engine Inspector: Marek Subramanian MD VC INJ FOAM SCLERO W US MLTI on 06-26-2022 VC INJ FOAM SCLERO W US MLTI Patient: MIKY FUENTES Exam Date: 06/26/2022 : 1950 Gender:F Ordering : DR WILLARD SHARMA M.D. Admission #: [id number] Family : Order #: [id number] CLICK HERE TO VIEW EXAM RADIOLOGY REPORT [...] vein medial distal lower leg/ankle. 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 Normal [facility] VC CONSULT FOLLOWUPon 2021 VC CONSULT FOLLOWUP Patient: MIKY FUENTES Exam Date: 06/19/2022 : 1950 Gender:F Ordering : DR WILLARD SHARMA M.D. Admission #: [id number] Family : Order #: [id number] CLICK HERE TO VIEW EXAM RADIOLOGY REPORT [...] Kyle Cheney M.D. on 06/19/2022 at 12:14 Normal [facility] VC EXT VENOUS RT LIMITEDon 0 06-19-2022 VC EXT VENOUS RT LIMITED Patient: MIKY FUENTES Exam Date: 06/19/2022 : 1950 Gender:F Ordering : DR WILLARD SHARMA M.D. Admission #: [id number] Family : Order #: [id number] CLICK HERE TO VIEW EXAM RADIOLOGY REPORT [...] Cheney M.D. on 06/19/2022 at 12:11 Normal [facility] VC INJ FOAM SCLERO W US MLTI on 06-13-2022 VC INJ FOAM SCLERO W US MLTI Patient: IMKY FUENTSE Exam Date: 06/13/2022 : 1950 Gender:F Ordering : DR WILLARD SHARMA M.D. Admission #: [id number] Family : Order #: [id number] CLICK HERE TO VIEW EXAM CORRECTION made [...] Kyle Cheney M.D. on 06/19/2022 at 12:17 Normal [facility] VC CONSULT FOLLOWUPon 2021 VC CONSULT FOLLOWUP Patient: MIKY FUENTES Exam Date: 05/31/2022 : 1950 Gender:F Ordering : DR WILLARD SHARMA M.D. Admission #: [id number] Family : Order #: [id number] CLICK HERE TO VIEW EXAM RADIOLOGY REPORT [...] Kyle Cheney M.D. on 05/31/2022 at 12:18 [facility] VC EXT VENOUS LT LIMITEDon 0 05-31-2022 VC EXT VENOUS LT LIMITED Patient: MIKY FUENTES Exam Date: 05/31/2022 : 1950 Gender:F Ordering : DR WILLARD SHARMA M.D. Admission #: [id number] Family : Order #: [id number] CLICK HERE TO VIEW EXAM RADIOLOGY REPORT [...] Kyle Cheney M.D. on 05/31/2022 at 12:13 [facility] CT ABD/PELVIS WO CONon 05-26 [...] by: SANTHOSH NICK Date: 2022-05-26 16:43 Normal [facility] VC ENDOVENOUS ABL 1ST V LTon 05-23-2022 VC ENDOVENOUS ABL 1ST V LT Patient: MIKY FUENTES Exam Date: 05/23/2022 : 1950 Gender:F Ordering : DR WILLARD SHARMA M.D. Admission #: [id number] Family : Order #: [id number] CLICK HERE TO VIEW EXAM RADIOLOGY REPORT [...] Cheney M.D. on 05/23/2022 at 12:34 Normal [facility] US KIDNEYSon 05-05-2022 US KIDNEYS [...] by: WILLARD SHARMA Date: 2022-05-05 13:29 Normal [facility] XR KUB 1 VIEWon 05-05-2022 XR [...] KYLE CHENEY Date: 2022-05-05 15:54 Normal [facility] MG MAMM SCREEN 3D TANMAY CADon 05-04-2022 MG MAMM SCREEN 3D TANMAY CAD Patient: MIKY FUENTES Exam Date: 05/04/2022 : 1950 Gender:F Ordering : DR CONNOR ANAYA Admission #: [id number] Family : Order #: [id number] CLICK HERE TO VIEW EXAM RADIOLOGY REPORT [...] colon cancer at age 60. LOCATION: [facility] BREAST COMPOSITION: Scattered areas fibroglandular density. [...] Cheney M.D. on 05/05/2022 at 14:21 Normal [facility] VC CONSULT FOLLOWUPon 2021 VC CONSULT FOLLOWUP Patient: MIKY FUENTES Exam Date: 05/04/2022 : 1950 Gender:F Ordering : DR WILLARD SHARMA M.D. Admission #: [id number] Family : Order #: [id number] CLICK HERE TO VIEW EXAM RADIOLOGY REPORT [...] Cheney M.D. on 05/04/2022 at 11:43 Normal [facility] VC EXT VENOUS RT LIMITEDon 0 05-04-2022 VC EXT VENOUS RT LIMITED Patient: MIKY FUENTES Exam Date: 05/04/2022 : 1950 Gender:F Ordering : DR WILLARD SHARMA M.D. Admission #: [id number] Family : Order #: [id number] CLICK HERE TO VIEW EXAM RADIOLOGY REPORT [...] M.D. on 05/04/2022 at 11:17 Normal [facility] CULTURE URINEon 05-03-2022 CULTURE URINE Culture Observations : LIGHT GROWTH OF MIXED GENITAL LUDWIN. NO POTENTIAL PATHOGENS SEEN. Normal [facility] Comment on above: Performed By: #### U RCX ####[facility] [address] [place] [address]Dr. Alysha Machuca UA RANDOMon 05-03-2022 Bilirubin Ql (U) Negative Normal NEGATIVE [facility] Comment on above: Performed By: #### U A #### [facility] [address] [place] [address] Dr. Alysha Machuca Clarity (U) TURBID Abnormal CLEAR [facility] Comment on above: Performed By: #### U A #### [facility] [address] [place] [address] Dr. Alysha Machuca Color (U) RED Abnormal YELLOW [facility] Comment on above: Result Comment: Prev iously reported as: YELLOW On 05/03/2022 17:30 By CV2 Performed By: #### U A #### [facility] [address] [address] [address] Alysha Machuca Glucose Ql (U) Negative Normal NEGATIVE [facility] Comment on above: Performed By: #### U A #### [facility] [address] [place] [address] [address] Alysha Machuca Hemoglobin Ql (U) LARGE Abnormal NEGATIVE [facility] Comment on above: Performed By: #### U A #### [facility] [address] [place] [address] Dr. Alysha Machuca Ketones Ql (U) Negative Normal NEGATIVE The [facility] Comment on above: Performed By: #### U A #### [facility] [address] [place] [address] Dr. Alysha Machuca LEUKOCYTES Negative Normal NEGATIVE [facility] Comment on above: Performed By: #### U A #### [facility] [address] [place] [address] Dr. Alysha Machuca Nitrite Ql (U) Negative Normal NEGATIVE The [facility] Comment on above: Performed By: #### U A #### [facility] [address] [place] [address] Dr. Alysha Machuca pH (U) 6.0 [pH] Normal 5-9 [facility] Comment on above: Performed By: #### U A #### [facility] [address] [place] [address] Dr. Alysha Machuca SPEC GRAVITY 1.025 Normal 1.005-<=1.025 The [facility] Comment on above: Performed By: #### U A #### [facility] [address] [place] [address] Dr. Alysha Machuca UA PROTEIN 100 mg/dl Abnormal NEGATIVE/ TRACE The [facility] Comment on above: Performed By: #### U A #### [facility] [address] [place] [address] Dr. Alysha Machuca Urobilinogen Qn (U) 0.2 {Luis'U}/dL Normal 0.2 - 1.0 [facility] Comment on above: Performed By: #### U A #### [facility] [address] [place] [address] Dr. Alysha Machuca VC ENDOVENOUS ABL 1ST V RTon 04-26-2022 VC ENDOVENOUS ABL 1ST V RT Patient: MIKY FUENTES Exam Date: 04/26/2022 : 1950 Gender:F Ordering : DR WILLARD SHARMA M.D. Admission #: [id number] Family : Order #: [id number] CLICK HERE TO VIEW EXAM RADIOLOGY REPORT [...] Sharma MD on 04/26/2022 at 10:58 Normal [facility] VC CONSULT FOLLOWUPon 2021 VC CONSULT FOLLOWUP Patient: MIKY FUENTES Exam Date: 04/13/2022 : 1950 Gender:F Ordering : DR WILLARD SHARMA M.D. Admission #: [id number] Family : Order #: [id number] CLICK HERE TO VIEW EXAM RADIOLOGY REPORT [...] Cheney M.D. on 04/13/2022 at 10:59 Normal [facility] VC EXT VENOUS LT LIMITEDon 0 04-13-2022 VC EXT VENOUS LT LIMITED Patient: MIKY FUENTES Exam Date: 04/13/2022 : 1950 Gender:F Ordering : DR WILLARD SHARMA M.D. Admission #: [id number] Family : Order #: [id number] CLICK HERE TO VIEW EXAM RADIOLOGY REPORT [...] Cheney M.D. on 04/13/2022 at 10:56 Normal [facility] Office Visit (Cardiology)on 03-22-2022 Follow-up visit [...] IO EKG Electrocardiogram- 12 Lead; Status:Complete; Done: [id number] SocHx: Never a smoker Tobacco Use Screening; Status:Complete; Done: [id number] Patient Instructions By signing my name below, [...] failure. With guideline directed therapy in the presy[place]eterian of maintenance of sinus rhythm her symptoms [...] Oral TabletTake 1 tablet twice a day Jackson 3 CAPSTAKE DIRECTED. Tylenol Arthritis Ext Relief [...] negative for complaint. Vitals Vital Signs Recorded: [id number] 02:06PM Heart Rate47, Apical Expfhlng805, RUE, Sitting Zrqxumjun86, RUE, Sitting Height5 ft 5 in Kdeaxz266 lb 6.4 oz BMI Bxfxkuwyyc44.17 kg/m2 BSA Calculated2.19 Tobacco Useb) No PHQ-2 [...] no murmurs (more content not included)... Normal [employer] Tobacco Screening.on 022 Adult depression screening assessment No [facility] 250 DO Work Phone: Fall risk assessment a) No falls within the last year [facility] DO Work Phone: Tobacco use status [facility] b) No [facility] DO Work Phone: VC ENDOVENOUS ABL PERFORATIN G LTon 03-22-2022 VC ENDOVENOUS ABL PERFORATING LT Patient: MIKY FUENTES Exam Date: 03/22/2022 : 1950 Gender:F Ordering : DR WILLARD SHARMA M.D. Admission #: [id number] Family : Order #: [id number] CLICK HERE TO VIEW EXAM RADIOLOGY REPORT PROCEDURE: VEIN CENTER ENDOVENOUS ABLATION VEIN LEFT LEG COMPARISON: None. 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 Normal [facility] KAL SCREEN, IFA, W/REFL TITE R/PATTERN [...] indicated. For additional information, please refer to http://education.Modumetal/faq/MQI094 (This link is being provided for informational/ educational purposes only.) Performed By: #### 8 09, 8268, 4420, 12869, %[id number] #### [facility] [address], [address] [place], [place] [id number] Engine Inspector: Marek Subramanian MD ANTINUCLEAR ANTIBODIES TITER AND PATTERNon 10-01-2021 KAL PATTERN Nuclear, Centromere Abnormal Ques t [facility] Comment on above: Result Comment: Cent romere pattern is associated with limited cutaneous systemic sclerosis, CREST (Calcinosis, Raynaud's, Esophageal dysmotility, Sclerodactyly, Telangiectasia), primary biliary cholangitis (PBC), and other autoimmune diseases. AC-3: Centrome[employer] International Consensus on KAL Patterns (https://doi.org/10.1515/svwf-5482-0614) Performed By: #### 8 09, 8268, 4420, 41329, %[id number] #### [facility] [address], [address] [place] [address] Engine Inspector: Marek Subramanian MD KAL PATTERN Nuclear, Homogeneous Abnormal Que st [facility] Comment on above: Result Comment: Homo geneous pattern is associated with systemic lupus erythematosus (SLE), drug-induced lupus and juvenile idiopathic arthritis. AC-1: Homogeneous International Consensus on KAL Patterns (https://doi.org/10.1515/jqil-6329-7562) Performed By: #### 8 09, 8268, 4420, 24061, %[id number] #### [facility] [place] [address] Engine Inspector: Marek Subramanian MD KAL TITER > OR = 1:1280 Abnormal [facility] Comment on above: Result Comment: Refe rence Range <1:40 Negative 1:40-1:80 Low Antibody Level >1:80 Elevated Antibody Level Performed By: #### 8 09, 8268, 4420, 35271, %[id number] #### [facility] of [place] [address] Engine Inspector: Marek Subramanian MD KAL TITER 1:80 High [facility] Comment on above: Result Comment: A lo w level KAL titer may be present in pre- clinical autoimmune diseases and normal individuals. Reference Range <1:40 Negative 1:40-1:80 Low Antibody Level >1:80 Elevated Antibody Level Performed By: #### 8 09, 8268, 4420, 90488, %[id number] #### [facility] of [place] [address] Engine Inspector: Marek Subramanian MD C-REACTIVE PROTEINon 021 CRP [Mass/Vol] 13.4 mg/L High <8.0 [facility] Comment on above: Performed By: #### 8 09, 8268, 4420, 29524, %[id number] #### [facility] [place] [address] Engine Inspector: Marek Subramanian MD RHEUMATOID ARTHRITIS DIAGNOS TIC PANEL 1on 10-01-2021 CYCLIC CITRULLINATED PEPTIDE (CCP) AB (IGG) <16 Normal [facility] Comment on above: Result Comment: Refe rence Range Negative: <20 Weak Positive: 20-39 Moderate Positive: 40-59 Strong Positive: >59 Performed By: #### 8 09, 8268, 4420, 73724, %04710 #### [facility] of [address], [address] [place] [address] Engine Inspector: Marek Subramanian MD INTERPRETATION Normal [facility] Comment on above: Result Comment: These serologic results may be found in 10-20% of patients with polyarthritis that is clinically and radiologically indistinguishable from RA. Performed By: #### 8 09, 8268, 4420, 68387, %[id number] #### [facility] [address], [address] [place] [address] Engine Inspector: Marek Subramanian MD RHEUMATOID FACTOR <14 Normal <14 [facility] Comment on above: Performed By: #### 8 09, 8268, 4420, 55789, %[id number] #### [facility] [address], [address] [place] [address] Engine Inspector: Marek Subramanian MD SED RATE BY MODIFIED WESTERG RENon 10-01-2021 SED RATE BY MODIFIED WESTERGREN 51 mm/h High < OR = 30 [facility] Comment on above: Performed By: #### 8 09, 8268, 4420, 43313, %09109 #### [facility] [place] [address] Engine Inspector: Marek Subramanian MD Tobacco Screening.on 021 Fall risk assessment a) No falls within the last year [facility] 600 DO Work Phone: Tobacco use status [facility] b) No [facility] 600 DO Work Phone: Vital Signs Date Time Vital Sign Value Performing Clinician Facility 11-25-2024 15:25-0500 Body height 160 cm Connor Membersuite Work Phone: [facility] 11-25-2024 15:25-0500 Body mass index (BMI) [Ratio] 37.13 kg/m2 [employer] Work Phone[facility] 11-25-2024 15:25-0500 Body weight 95.07 kg Connor Furlong DO Work Phone: [facility] 11-25-2024 15:25-0500 Diastolic blood pressure 56 mm[Hg] Connor Furlong DO Work Phone: [facility] 11-25-2024 15:25-0500 Systolic blood pressure 110 mm[Hg] Connor Furlong DO Work Phone: [facility] 11-04-2024 11:24-0500 Body height 165.1 cm Jr. Stepanic DO Work Phone: [facility] 11-04-2024 11:24-0500 Body mass index (BMI) [Ratio] 34.81 kg/m2 Jr. Stepanic DO Work Phone: [facility] 11-04-2024 11:24-0500 Body weight 94.89 kg Jr. Stepanic DO Work Phone: [facility] 10-13-2024 08:40-0500 Body height 162.6 cm Connor Furlong DO Work Phone: [facility] 10-13-2024 08:40-0500 Body mass index (BMI) [Ratio] 35.46 kg/m2 Connor Furlong DO Work Phone: [facility] 10-13-2024 08:40-0500 Body temperature 98.4 [degF] Connor Furlong DO Work Phone: [facility] 10-13-2024 08:40-0500 Body weight 93.71 kg Connor Furlong DO Work Phone: [facility] 10-13-2024 08:40-0500 Diastolic blood pressure 56 mm[Hg] Connor Furlong DO Work Phone: [facility] 10-13-2024 08:40-0500 Heart rate 60 /min Connor Furlong DO Work Phone: [facility] 10-13-2024 08:40-0500 Respiratory rate 18 /min Connor Furlong DO Work Phone: [facility] 10-13-2024 08:40-0500 Systolic blood pressure 110 mm[Hg] Connor Furlong DO Work Phone: [facility] 08-28-2024 10:39-0400 Body height 165.1 cm Carmen Lopez MD Work Phone: [facility] 08-28-2024 10:39-0400 Body mass index (BMI) [Ratio] 35.28 kg/m2 Carmen Lopez MD Work Phone: [facility] 08-28-2024 10:39-0400 Body weight 96.16 kg Carmen Lopez MD Work Phone: [facility] 08-28-2024 10:39-0400 Diastolic blood pressure 56 mm[Hg] Carmen Lopez MD Work Phone: [facility] 08-28-2024 10:39-0400 Heart rate 56 /min Carmen Lopez MD Work Phone: [facility] 08-28-2024 10:39-0400 Systolic blood pressure 122 mm[Hg] Carmen Lopez MD Work Phone: [facility] 08-18-2024 10:47-0400 Body height 162.6 cm Connor Furlong DO Work Phone: [facility] 08-18-2024 10:47-0400 Body mass index (BMI) [Ratio] 36.22 kg/m2 Connor Furlong DO Work Phone: [facility] 08-18-2024 10:47-0400 Body temperature 97.39 [degF] Connor Furlong DO Work Phone: [facility] 08-18-2024 10:47-0400 Body weight 95.71 kg Connor Furlong DO Work Phone: [facility] 08-18-2024 10:47-0400 Diastolic blood pressure 72 mm[Hg] Connor Furlong DO [facility] Phone[facility] 08-18-2024 10:47-0400 Heart rate 64 /min Connor Furlong DO Work Phone: [facility] 08-18-2024 10:47-0400 Systolic blood pressure 124 mm[Hg] Connor Furlong DO Work Phone: [facility] 07-15-2024 14:59-0400 Blood Pressure Location Radha Orzech [facility] 07-15-2024 14:59-0400 Diastolic blood pressure 64 mm[Hg] Radha Orzech [facility] 07-15-2024 14:59-0400 Heart rate 65 /min Radha Orzech [facility] 07-15-2024 14:59-0400 Systolic blood pressure 112 mm[Hg] Radha Orzech [facility] 03-06-2024 09:31-0400 Body height 165.1 cm Nick Richardson MD Work Phone: [facility] 03-06-2024 09:31-0400 Body mass index (BMI) [Ratio] 36.78 kg/m2 Nick Richardson MD Work Phone: [facility] 03-06-2024 09:31-0400 Body weight 100.25 kg Nick Richardson MD Work Phone: [facility] 03-06-2024 09:31-0400 Diastolic blood pressure 58 mm[Hg] Nick Richardson MD Work Phone: [facility] 03-06-2024 09:31-0400 Heart rate 44 /min Nick Richardson MD Work Phone: [facility] 03-06-2024 09:31-0400 Systolic blood pressure 104 mm[Hg] Nick Richardson MD Work Phone: [facility] 02-18-2024 10:11-0400 Body height 162.6 cm Connor Furlong DO Work Phone[facility] 02-18-2024 10:11-0400 Body mass index (BMI) [Ratio] 37.25 kg/m2 Connor Furlong DO Work Phone: [facility] 02-18-2024 10:11-0400 Body temperature 97.81 [degF] Connor Furlong DO Work Phone: [facility] 02-18-2024 10:11-0400 Body weight 98.43 kg Connor Furlong DO Work Phone: [facility] 02-18-2024 10:11-0400 Diastolic blood pressure 62 mm[Hg] Connor Furlong DO Work Phone: [facility] 02-18-2024 10:11-0400 Heart rate 55 /min Connor Furlong DO Work Phone: [facility] 02-18-2024 10:11-0400 Respiratory rate 20 /min Connor Furlong DO Work Phone: [facility] 02-18-2024 10:11-0400 SaO2% (BldA) [Mass fraction] 98 % Connor Furlong DO Work Phone: [facility] 02-18-2024 10:11-0400 Systolic blood pressure 130 mm[Hg] Connor Furlong DO Work Phone: [facility] 12-06-2022 13:27-0500 Body height 165.1 cm Connor Marinelli Furlong Work Phone: [facility] 250 DO Work Phone: 12-06-2022 13:27-0500 Body mass index (BMI) [Ratio] 36.94 kg/m2 Connor Marinelli Furlong Work Phone: [facility] 250 DO Work Phone: 12-06-2022 13:27-0500 Body surface area Derived from formula 2.07 m2 Connor Marinelli Furlong Work Phone: [facility] 250 DO Work Phone: 12-06-2022 13:27-0500 Body weight 100.7 kg Connor Lewislong Work Phone: [facility] 250 DO Work Phone: 12-06-2022 13:27-0500 Diastolic blood pressure 84 mm[Hg] Connor Marinelli Furlong Work Phone: [facility] 250 DO Work Phone: 12-06-2022 13:27-0500 Heart rate 43 /min Connor Lewislong Work Phone: [facility] 250 DO Work Phone: 12-06-2022 13:27-0500 Systolic blood pressure 130 mm[Hg] Connor Marinelli Furlong Work Phone: [facility] 250 DO Work Phone: 06-30-2022 11:43-0400 Blood Pressure Location Yehuda HASSAN [facility] 06-30-2022 11:43-0400 Diastolic blood pressure 69 mm[Hg] Yehuda HASSAN [facility] 06-30-2022 11:43-0400 Heart rate 60 /min Yehuda HASSAN [facility] 06-30-2022 11:43-0400 Respiratory rate 16 /min Yehuda HASSAN [facility] 06-30-2022 11:43-0400 Systolic blood pressure 129 mm[Hg] Yehuda HASSAN [facility] 03-22-2022 14:06-0400 Body height 165.1 cm Connor G Furlong Work Phone: [facility] 250 DO Work Phone: 03-22-2022 14:06-0400 Body mass index (BMI) [Ratio] 42.17 kg/m2 Connor G Furlong Work Phone: [facility] 250 DO Work Phone: 03-22-2022 14:06-0400 Body surface area Derived from formula 2.19 m2 Connor G Furlong Work Phone: [facility] 250 DO Work Phone: 03-22-2022 14:06-0400 Body weight 114.94 kg Connor G Furlong Work Phone: [facility] 250 DO Work Phone: 03-22-2022 14:06-0400 Diastolic blood pressure 70 mm[Hg] Connor G Furlong Work Phone: [facility] DO Work Phone: 03-22-2022 14:06-0400 Heart rate 47 /min Connor G Furlong Work Phone: [facility] 250 DO Work Phone: 03-22-2022 14:06-0400 Systolic blood pressure 114 mm[Hg] Connor G Furlong Work Phone: [facility] [employer] 250 DO Work Phone: 08-16-2021 14:38-0400 Body height 165.1 cm Connor Marinelli Furlong Work Phone: [facility] [employer] 600 DO Work Phone: 08-16-2021 14:38-0400 Body mass index (BMI) [Ratio] 42.53 kg/m2 Connor G Furlong Work Phone: [facility] [employer] 600 DO Work Phone: 08-16-2021 14:38-0400 Body surface area Derived from formula 2.2 m2 Connor G Furlong Work Phone: [facility] [employer] 600 DO Work Phone: 08-16-2021 14:38-0400 Body weight 115.94 kg Connor Marinelli Furlong Work Phone: [facility] [employer] 600 DO Work Phone: 08-16-2021 14:38-0400 Diastolic blood pressure 74 mm[Hg] Connor G Furlong Work Phone: [facility] [employer] 600 DO Work Phone: 08-16-2021 14:38-0400 Heart rate 44 /min Connor Marinelli Furlong Work Phone: [facility] [employer] 600 DO Work Phone: 08-16-2021 14:38-0400 Systolic blood pressure 134 mm[Hg] Connor G Furlong Work Phone: [facility] [employer] 600 DO Work Phone: Encounters Encounter Date Encounter Type Care Provider Facility Start: 11-27-2024 End: 11-27-2024 ambulatory [facility] Start: 11-27-2024 End: 11-27-2024 ambulatory [facility] Start: 11-25-2024 End: 11-25-2024 ambulatory CONNORWANDY ANAYA [facility] Start: 11-25-2024 End: 11-25-2024 Patient encounter procedure Connor Anaya DO Work Phone: [facility] Comment on above: Medicare annual well ness visit, subsequent (Primary Dx); Screening for depression Start: 11-14-2024 End: 11-15-2024 [facility] Comment on above: Proteinuria, unspeci fied Start: 11-04-2024 End: 11-04-2024 Zeus Mcclain DO Work Phone: [facility] Start: 11-04-2024 End: 11-04-2024 Zeus Mcclain DO Work Phone: [facility] Start: 11-04-2024 End: 11-04-2024 ambulatory LESVIA KEITA Not Available Start: 11-04-2024 End: 11-04-2024 Office outpatient visit 15 minutes Jr. Lesvia Mcclain DO Work Phone: [facility] Comment on above: Arthritis of right k nee (Primary Dx); Acute pain of right knee; Chondromalacia, patella, right Start: 10-17-2024 End: 10-17-2024 ambulatory [facility] Start: 10-13-2024 End: 10-13-2024 Transitional care manage srvc 14 day discharge Connor Anaya DO Work Phone: 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 Call Elza haddad Comment on above: critical EKG Start: 09-11-2024 End: 09-11-2024 ambulatory Yehuda HASSAN Facility:[id number] Start: 09-03-2024 End: 09-03-2024 Orders Only Connor Marinelli Jaclyn DO Work Phone: [facility] Start: 09-02-2024 End: 09-02-2024 Bamboo flowsheet Nany HO Work Phone: [facility] Start: 09-02-2024 End: 09-02-2024 Bamboo flowsheet Nany HO Work Phone: [facility] Start: 09-02-2024 End: 09-04-2024 Telephone encounter Isa [facility] Start: 09-02-2024 End: 09-02-2024 ambulatory NANY JAIN Not Available Start: 09-02-2024 End: 09-02-2024 Office outpatient visit 25 minutes Nany HO Work Phone: [facility] Comment on above: Arthritis of right k nee (Primary Dx); Acute pain of right knee; Chondromalacia, patella, right Start: 08-28-2024 End: 08-28-2024 Office outpatient visit 25 minutes Carmen Lopez MD Work Phone: [facility] Comment on above: Paroxysmal atrial fi brillation (Multi) (Primary Dx); Non-ischemic cardiomyopathy (Multi); Mixed hyperlipidemia; Sinus bradycardia; High risk medication use; Class 2 obesity; BMI 35.0-35.9,adult; Never smoked tobacco Start: 08-28-2024 End: 08-28-[address] [facility] Start: 08-19-2024 End: 08-19-2024 Orders Only Connor Anaya DO Work Phone: [facility] Start: 08-18-2024 End: 08-18-2024 ambulatory CONNOR ANAYA [facility] Start: 08-18-2024 End: 08-18-2024 ambulatory CONNOR LEWISLEONIE [facility] Start: 08-18-2024 End: 08-18-2024 Office outpatient visit 25 minutes Connor Anaya DO Work Phone: [facility] Comment on above: Primary hypertension (Primary Dx); Hyperlipidemia, unspecified hyperlipidemia type; Acquired hypothyroidism; Osteoarthritis of multiple joints, unspecified osteoarthritis type; 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 and body mass index (BMI) of 36.0 to 36.9 in adult Start: 07-29-2024 End: 07-29-2024 Lab Drop off Radha X Orzech [facility] Start: 07-29-2024 End: 07-29-2024 ambulatory Radha X Orzech [facility] Start: 07-29-2024 End: 07-29-2024 Patient encounter procedure Radha X Orzech [facility] Start: 07-24-2024 End: 07-24-2024 Refill Connor Anaya DO Work Phone: [facility] Start: 07-15-2024 End: 07-15-2024 Lab Drop off Radha X Orzech [facility] Start: 07-15-2024 End: 07-15-2024 ambulatory Radha X Orzech [facility] Start: 07-15-2024 End: 07-15-2024 Patient encounter procedure Radha X Orzech [facility] Start: 07-01-2024 End: 07-01-2024 ambulatory Radha X Orzech Facility: [place] Start: 07-01-2024 End: 07-01-2024 Patient encounter procedure [facility]zech [facility] Start: 06-10-2024 End: 06-10-2024 ambulatory Radha X Orzech Facility:[place] Start: 06-10-2024 End: 06-10-2024 Patient encounter procedure Radha X Orzech [facility] Start: 05-20-2024 End: 05-20-2024 ambulatory Radha X Orzech Facility:[place] Start: 05-20-2024 End: 05-20-2024 Patient encounter procedure Ardha X Orzech [facility] Start: 05-16-2024 End: 05-16-2024 ambulatory Yehuda HASSAN Facility: [facility] Start: 05-16-2024 End: 05-16-2024 Patient encounter procedure Yehuda HASSAN [facility] Start: 03-26-2024 End: 03-26-2024 ambulatory LESVIA KEITA Not Available Start: 03-06-2024 End: 03-06-2024 Office outpatient visit 25 minutes Nick Richardson MD Work Phone: [facility] Comment on above: Mixed hyperlipidemia (Primary Dx); Paroxysmal atrial fibrillation (Multi); Non-ischemic cardiomyopathy (Multi); Never smoked tobacco; BMI 36.0-36.9,adult; Hyperlipidemia, unspecified hyperlipidemia type Start: 03-06-2024 End: 03-06-2024 ambulatory [facility] Start: 02-22-2024 End: 02-22-2024 Orders Only Connor Anaya DO Work Phone: [facility] Start: 02-20-2024 End: 02-20-2024 Orders Only Connor Anaya DO Work Phone: [facility] Comment on above: Sleep Lab (HST) Start: 02-18-2024 End: 02-18-2024 ambulatory [facility] Start: 02-18-2024 End: 02-18-2024 ambulatory [facility] Start: 02-18-2024 End: 02-18-2024 Office outpatient visit 25 minutes Connor Anaya DO Work Phone: [facility] Comment on above: 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 (Primary Dx); Minimal cognitive impairment; Sleep apnea, unspecified type; Acquired hypothyroidism; Class 2 severe obesity due to excess calories with serious comorbidity and body mass index (BMI) of 37.0 to 37.9 in adult ([facility]) Start: 02-14-2024 End: 02-14-2024 Refill Connor Anaya DO Work Phone: [facility] Start: 12-24-2023 End: 12-24-2023 ambulatory [facility] Start: 12-13-2023 End: 12-13-2023 ambulatory Yehuda HASSAN Facility:[facility] Start: 12-13-2023 End: 12-13-2023 Patient encounter procedure Yehuda HASSAN [facility] Start: 10-26-2023 End: 10-26-2023 ambulatory Yehuda HASSAN Facility:[facility] Start: 10-09-2023 End: 10-09-2023 ambulatory DULCE ALCAZAR Facility:[facility] Start: 03-13-[address] WILLARD SHARMA Facilit y:[facility] Start: 03-05-2023 End: 03-06-[address] YEHUDA HASSAN . Facility:[facility] Start: 02-20-2023 End: 02-21-2023 ambulatory DOCTOR CLAYTON Facility:[facility] Start: 12-06-2022 ambulatory Nick Richardson II Facility: Start: 12-06-2022 Office outpatient vi sit 25 minutes Connor Anaya Work Phone: [facility] 250 DO Work Phone: Start: 11-20-2022 Rx Renewal Connor nj Work Phone: [facility] 250 DO Work Phone: Start: 11-03-2022 End: [...] preprocedural laboratory examination DR LESVIA MCCLAIN [facility] Start: 09-05-2022 End: 09-05-2022 Patient encounter procedure Yehuda HASSAN [facility] Start: 09-01-2022 End: 09-02-[address] CONNOR ANAYA Facility:[facility] Start: 09-01-2022 End: 09-02-2022 Encounter for preprocedural laboratory examination DR CONNOR ANAYA Facility:[facility] Start: 08-31-2022 End: 09-01-[address] CONNOR ANAYA Facility:[facility] Start: 08-22-2022 Rx Renewal Connor nj Work Phone: [facility] 250 DO Work Phone: Start: 08-22-2022 End: 08-23-[address] CONNOR ANAYA Facility:[facility] Start: 08-17-2022 End: 08-18-[address] CONNOR ANAYA Facility:[facility] Start: 08-11-2022 End: 08-11-2022 Lab Drop off DORA ALCAZAR [facility] Start: 08-11-2022 End: 08-11-2022 Patient encounter procedure DORA ALCAZAR [facility] Start: 08-07-2022 End: 08-08-[address] WILLARD SHARMA Facility:[facility] Start: 08-01-2022 End: 08-02-[address] WILLARD SHARMA Facility:[facility] Start: 07-17-2022 End: 07-18-[address] WILLARD SHARMA Facility:[facility] Start: 07-12-2022 End: 07-13-[address] WILLARD SHARMA Facility:[facility] Start: 06-30-2022 End: 07-01-[address] WILLARD SHARMA Facility:[facility] Start: 06-30-2022 End: 06-30-2022 Patient encounter procedure Yehuda HASSAN [facility] Start: 06-26-2022 End: 06-27-[address] WILLARD SHARMA Facility:[facility] Start: 06-19-2022 End: 06-20-[address] WILLARD SHARMA Facility:[facility] Start: 06-13-2022 End: 06-14-[address] CONNOR ANAYA Facility:[facility] Start: 05-31-2022 End: 06-01-[address] CONNOR ANAYA Facility:[facility] Start: 05-26-2022 End: 05-27-[address] CONNOR ANAYA Facility:[facility] Start: 05-23-2022 End: 05-24-[address] CONNOR ANAYA Facility:[facility] Start: 05-05-2022 End: 05-06-2022 ambulatory DOCTOR MIS Facility:[facility] Start: 05-04-2022 End: 05-05-[address] WILLARD SHARMA Facility:[facility] Start: 05-03-2022 End: 05-04-2022 ambulatory DOCTOR MIS Facility:[facility] Start: 04-26-2022 End: 04-27-[address] WILLARD SHARMA Facility:[facility] Start: 04-13-2022 End: 04-14-[address] WILLARD SHARMA Facility:[facility] Start: 03-22-2022 ambulatory Connor Anaya Facility: Start: 03-22-2022 Office outpatient vi sit 25 minutes Connor Anaya Work Phone: [facility] 250 DO Work Phone: Start: 03-22-2022 End: 03-23-[address] WILLARD SHARMA Facility:[facility] Start: 01-31-2022 ambulatory Connor Anaya Facility: Start: 12-07-2021 Rx Renewal Connor Tavares ng Work Phone: [facility] 250 DO Work Phone: Start: 08-16-2021 Office outpatient vi sit 15 minutes Connor [facility]avaresng [facility] Work Phone: Imaging result normal Connor Butler urlong Work Phone: [facility] 250 DO Work Phone: Patient encounter status Connor Anaya Work Phone: [facility] 600 DO Work Phone: Procedures Date Procedure Procedure Detail Performing Clinician Start: 11-25-2024 Adult depression scr eening assessment Connor Furlong DO Work Phone: Start: 10-13-2024 Adult depression scr eening assessment Connor Debbielong DO Work Phone: Start: 09-02-2024 Arthrocentesis aspir &/inj major jt/bursa w/o us Nany HO Work Phone: Start: 09-02-2024 Radiologic examinati on knee 1/2 views Nany HO Work Phone: Start: 08-18-2024 Follow-up visit Follow-up CONNOR ANAYA Start: 08-18-2024 Adult depression scr eening assessment Connor Furlong DO Work Phone: Start: 08-05-2024 Mammography Connor Fur long DO Work Phone: Start: 03-06-2024 ECG 12-LEAD NICK VILLEDA Start: 03-06-2024 FOLLOW UP IN CARDIOLOGY NICK RICHARDSON Start: 03-06-2024 Ecg routine ecg w/le ast 12 lds w/i&r Nick Richardson MD Work Phone: Start: 02-18-2024 Adult depression scr eening assessment Connor Furlong DO Work Phone: Start: 12-24-2023 ECG 12-LEAD NICK VILLEDA Start: 07-26-2023 Mammography Connor Fur long DO Work Phone: Start: 07-23-2023 Adult depression scr eening assessment Connor Furlong DO Work Phone: Start: 09-05-2022 Cystoscopy Yehuda CORONA Start: 11-30-2020 Cystoscopy Yehuda CORONA Start: 07-14-2020 Cystoscopy Yehuda CORONA Start: 07-08-2020 Cystoscopy Yehuda CORONA Start: 07-17-2019 Extracorporeal shock wave lithotripsy of the bile duct Yehuda HASSAN Comment on above: Right Start: 10-29-2015 Gastric sleeve Yehuda HASSAN Arthroplasty of knee Connor Anaya Work Phone: Colonoscopy Connor Tavaresn g Work [...] Author Start: 02-20-2033 DTaP,Tdap and Td Vaccines (5 - Td or Tdap) DTaP,Tdap and Td Vaccines (5 - Td or Tdap) [facility] Start: 02-20-2033 DTaP,Tdap and Td Vaccines (6 - Td or Tdap) DTaP,Tdap and Td Vaccines (6 - Td or Tdap) [facility] Start: 02-20-2033 DTaP/Tdap/Td Vaccine s (3 - Td or Tdap) DTaP/Tdap/Td Vaccines (3 - Td or Tdap) [facility] Start: 12-13-2025 Screening for malignant neoplasm of colon Colon Cancer Screening 5 Year Sigmoidoscopy [facility] Comment on above: Postponed from 04/28 (Not Indicated) Start: 11-26-2025 End: 11-26-2025 Patient encounter procedure 11/26/2025 1:40 PM EST [facility] [address] [place] [address] [facility] Start: 11-25-2025 Adult BMI Screening Adult BMI Screen ing [facility] Start: 11-25-2025 Depression Screening Depression Scre ening [facility] Start: 11-25-2025 Fall Risk Screening Fall Risk Screen ing [facility] Start: 11-25-2025 Medicare Annual Wellness Visit Medicare Annual Wellness Visit [facility] Start: 11-03-2025 End: 11-03-2025 Patient encounter procedure 11/03/2025 10:00 AM EST Office Visit [facility] [address] [place] [id number] Jr. Lesvia Mcclain, DO [address] [place] [address] [facility] Start: 10-13-2025 Adult BMI Screening Adult BMI Screen ing [facility] Start: 10-13-2025 Depression Screening Depression Scre ening [facility] Start: 10-13-2025 Fall Risk Screening Fall Risk Screen ing [facility] Start: 10-13-2025 Tobacco Screening Tobacco Screening [facility] Start: 08-27-2025 End: 08-27-2025 Patient encounter procedure 08/27/2025 11:20 AM EDT Office Visit [facility] [address] [place] [address] Carmen Lopez MD [address] [facility] [address] [place] [address] [facility] Start: 08-18-2025 Adult BMI Screening Adult BMI Screen ing [facility] Start: 08-18-2025 Depression Screening Depression Scre ening [facility] Start: 08-18-2025 Fall Risk Screening Fall Risk Screen ing [facility] Start: 08-18-2025 Tobacco Screening Tobacco Screening [facility] Start: 08-05-2025 Screening for malignant neoplasm of breast Mammogram [facility] Start: 03-25-2025 End: 03-25-2025 Patient encounter procedure 03/25/2025 1:00 PM EDT Office Visit [facility] [address] [place] [id number] Jr. Lesvia Mcclain, DO [address] [place] [address] [facility] Start: 02-17-2025 Adult BMI Follow Up Plan Adult BMI Follow Up Plan [facility] Start: 02-17-2025 Adult BMI Screening Adult BMI Screen ing [facility] Start: 02-17-2025 Depression Screening Depression Scre ening [facility] Start: 02-17-2025 Fall Risk Screening Fall Risk Screen ing [facility] Start: 02-17-2025 Tobacco Screening Tobacco Screening [facility] Start: 02-16-2025 End: 02-16-2025 Patient encounter procedure 02/16/2025 9:00 AM EDT [facility] [address] [place] [address] Connor Anaya, DO [address], [place] [address] [facility] Start: 01-19-2025 End: 01-19-2025 Patient encounter procedure 01/19/2025 10:30 AM EDT Office [facility] [address] [place] [address] Connor Anaya, DO [address], [place] [address] [facility] Start: 11-04-2024 End: 11-04-2024 Patient encounter procedure 11/04/2024 11:00 AM EST Office Visit [facility] [address] [place] [phone] Jr. Lesvia Mcclain, DO [address] [place] [address] [facility] Start: 08-28-2024 End: 08-28-2024 Patient encounter procedure 08/28/2024 10:40 AM EDT Office Visit [place] [address] [place] [address] Carmen Lopez MD [address] [facility] [address], [address] [place], [place] [id number] [facility] Start: 08-18-2024 End: 08-18-2024 Patient encounter procedure 08/18/2024 10:30 AM EDT Office [facility] [address] [place] [address] Connor Anaya, [address], [place] [address] [facility] Start: 07-26-2024 Screening for malignant neoplasm of breast Mammogram [facility] Start: 07-23-2024 Adult BMI Screening Adult BMI Screen ing [facility] Start: 07-23-2024 Depression Screening Depression Scre ening [facility] Start: 07-23-2024 Tobacco Screening Tobacco Screening [facility] Start: 06-29-2024 COVID-19 Vaccine ( season) COVID-19 Vaccine ( season) [facility] Start: 06-29-2024 COVID-19 Vaccine ( season) COVID-19 Vaccine () [facility] Start: 06-29-2024 COVID-19 Vaccine (9 - 2023-24 season) COVID-19 Vaccine () [facility] Start: 06-29-2024 COVID-19 Vaccine ( season) COVID-19 Vaccine () [facility] Start: 06-29-[address] [facility] Start: 06-24-2024 End: 06-24-2024 Patient encounter procedure 06/24/2024 10:40 AM EDT Office Visit [facility] Internal Medicine - Family Medicine [address] [place] [address] [facility] Internal Medicine - Family Medicine Start: 06-21-2024 Fall Risk Screening Fall Risk Screen ing [facility] Start: 06-21-2024 Medicare Annual Wellness Visit Medicare Annual Wellness Visit [facility] Start: 03-17-2024 End: 03-17-2024 Clinical Support 03/17/2024 7:30 PM EDT Clinical Support [facility] [address] [place] [phone] Connor Anaya DO [address], [facility] [place] [address] [facility] Start: 03-01-2024 COVID-19 Vaccine ( season) COVID-19 Vaccine () [facility] Start: 02-18-2024 End: 02-18-2024 Patient encounter procedure 02/18/2024 9:45 AM EDT Office Visit [facility] Internal Medicine - Family Medicine [address] [place] [address] Connor Anaya DO [address] [place] [address] [facility] Internal Medicine - Family Medicine Start: 01-29-2024 FUV, Provider: Nick Richardson, Status: Pen, Time: 11:20 AM FUV, Provider: Nick Richardson, Status: Pen, Time: 11:20 AM -[facility] 250 DO Work Phone: Start: 06-29-2023 COVID-19 Vaccine ( season) COVID-19 Vaccine ( season) [facility] Start: 12-06-2022 FUV, Provider: Nick Richardson, Status: Pen, Time: 1:10 PM FUV, Provider: Nick Richardson, Status: Pen, Time: 1:10 PM [facility] 250 DO Work Phone: Start: 01-31-2022 FUV, Provider: Nick Sarkar, Status: Pen, Time: 2:20 PM FUV, Provider: Nick Sarkar, Status: Pen, Time: 2:20 PM -[facility] 250 DO Work Phone: Start: 2010 RSV High Risk: (Elderly (60+) or Population) (1 - Risk 60-74 years 1-dose series) RSV High Risk: (Elderly (60+) or Population) (1 - Risk 60-74 years 1-dose series) [facility] Start: 2010 RSV patient s and/or patients aged 60+ years (1 - 1-dose 60+ series) RSV patients and/or patients aged 60+ years (1 - 1-dose 60+ series) [facility] Start: 1995 Screening for malignant neoplasm of colon Colon Cancer Screening 5 Year Sigmoidoscopy [facility] Start: 1968 Adult BMI Follow Up Plan Adult BMI Follow Up Plan [facility] Start: 1968 Diabetes mellitus screening Diabetes Screening [facility] Start: 1968 Diabetic foot examination Diabetic Foot Exam [facility] Start: 1968 Hepatitis C screening Hepatitis C Sc [facility] Start: 1950 Glaucoma screening Diabetic Op hthalmology Exam [facility] Start: 1950 Lipid panel Lipid Panel [facility] Start: 1950 Medicare Annual Wellness Visit Medicare Annual Wellness Visit (AWV) [facility] Start: 1950 Screening for malignant neoplasm of colon [facility] Start: 1950 Screening for osteoporosis Bone Density Scan [facility] Start: 1950 Thyroid stimulating hormone measurement TSH Level [facility] End: 02-17-2025 Home sleep study Home sleep study Sleep Center Routine Sleep apnea, unspecified type 1 Occurrences starting 02/18/2024 until 02/17/2025 [email or web address] Work Phone: Comment on above: 1 Occurrences starti ng 02/18/2024 until 02/17/2025 Immunizations Immunization Date Immunization Notes Care Provider [facility] 10-13-2024 Seasonal trivalent influenza vaccine, adjuvanted, preservative free Connorwandy Anaya DO Work Phone: [facility] 10-13-2024 Immunization, In Clinic,; Translations: [Drug or medicament (substance)] Connor Anaya DO Work Phone: [employer] 11-01-2023 Influenza, High-dose , Quadrivalent Connor Lewisreggie DO [facility] Phone[facility] 11-01-2023 influenza virus vacc ine, unspecified formulation Connor Jaclyn DO Work Phone: [facility] 02-20-2023 tetanus toxoid, redu mariano diphtheria toxoid, and acellular pertussis vaccine, adsorbed Yehuda HASSAN [facility] 10-15-2022 Fluzone High-Dose Quadrivalent 0.7 ML Intramuscular Suspension Prefilled Syringe Connor Anaya Work Phone: [facility] 250 DO Work Phone: 10-15-2022 influenza virus vacc ine, unspecified formulation Yehuda HASSAN [facility] 10-15-2022 influenza, high dose seasonal, preservative-free Nick Richardson MD Work Phone: [facility] Work Phone: 04-29-2022 Comirnaty 30 MCG/0.3 ML Intramuscular Suspension Connor Anaya Work Phone: [facility] 250 DO Work Phone: 04-29-2022 COVID-19, mRNA, LNP- S, PF, 100mcg/0.5mL Dose Connor Anaya DO Work Phone: [facility] 04-29-2022 SARS-COV-2 (COVID-19 ) Vaccine, Unspecified Connor Anaya DO Work Phone: [facility] 04-29-2022 SARS-CoV-2 mRNA ([id number]) vaccine Yehuda HASSAN [facility] 09-08-2021 influenza virus vacc ine, unspecified formulation Yehuda HASSAN [facility] 08-29-2021 Fluzone High-Dose Quadrivalent 0.7 ML Intramuscular Suspension Prefilled Syringe Connor Anaya Work Phone: [facility] 250 DO Work Phone: 08-29-2021 influenza virus vacc ine, unspecified formulation Yehuda HASSAN [facility] 08-29-2021 influenza, high dose seasonal, preservative-free Nick Richardson MD Work Phone: [facility] Work Phone: 08-29-2021 Pfizer-BioNTech COVI D-19 Vacc 30 MCG/0.3ML Intramuscular Suspension Connor Anaya Work Phone: [facility] 12-23-2020 Pfizer-BioNTech COVI D-19 Vacc 30 MCG/0.3ML Intramuscular Suspension Connor G Furlong Work Phone: [facility] 12-01-2020 Pfizer-BioNTech COVI D-19 Vacc 30 MCG/0.3ML Intramuscular Suspension Connor G Furlong Work Phone: [facility] 09-13-2020 pneumococcal polysaccharide vaccine, 23 valent Connor G Furlong Work Phone: [facility] 09-03-2020 influenza virus vacc ine, unspecified formulation Epuls [facility] 09-03-2020 influenza, high dose seasonal, preservative-free Connor Furlong DO Work Phone: [facility] 09-03-2020 influenza, injectabl e, quadrivalent, contains preservative Connor G Furlong Work Phone[facility] DO Work Phone: 08-29-2020 influenza virus vacc ine, unspecified formulation Epuls [facility] 08-29-2020 influenza, high dose seasonal, preservative-free Connor G Furlong Work Phone: [facility] DO Work Phone: 08-29-2020 influenza, injectabl e, quadrivalent, contains preservative Connor Furlong DO Work Phone: [facility] 08-29-2020 pneumococcal polysaccharide vaccine, 23 valent Connor G Furlong Work Phone: [facility] 08-11-2020 influenza virus vacc ine, unspecified formulation Epuls [facility] 08-11-2020 influenza, seasonal, injectable Connor G Furlong Work Phone: [facility] 600 DO Work Phone: 07-29-2020 influenza virus vacc ine, unspecified formulation Yehuda HASSAN [facility] 07-29-2020 influenza, seasonal, injectable Connor G Furlong Work Phone: [facility] 250 DO Work Phone: 09-02-2019 influenza virus vacc ine, unspecified formulation Yehuda HASSAN [facility] 09-02-2019 influenza, high dose seasonal, preservative-free Connor G Furlong Work Phone: [facility] 600 DO Work Phone: 08-29-2019 influenza virus vacc ine, unspecified formulation Connor G Furlong Work Phone: [facility] 08-29-2019 influenza, seasonal, injectable Connor Furlong DO Work Phone: [facility] 08-11-2019 influenza virus vacc ine, unspecified formulation Yehuda HASSAN [facility] 06-17-2019 zoster vaccine recombinant Connor G Furlong Work Phone: [facility] 05-29-2019 zoster vaccine recombinant Connor G Furlong Work Phone: [facility] 04-15-2019 zoster vaccine recombinant Connor G Furlong Work Phone: [facility] 03-29-2019 zoster vaccine recombinant Connor G Furlong Work Phone: [facility] 08-29-2018 influenza virus vacc ine, unspecified formulation Connor G Furlong Work Phone: [facility] DO Work Phone: 09-27-2017 influenza virus vacc ine, unspecified formulation Yehuda HASSAN [facility] 09-27-2017 Influenza, injectabl e, Madin [place] Canine Kidney, preservative free, quadrivalent Connor G Furlong Work Phone: [facility] DO Work Phone: 09-26-2017 influenza virus vacc ine, unspecified formulation Connor G Furlong Work Phone: [facility] DO Work Phone: 10-19-2016 influenza virus vacc ine, unspecified formulation Yehuda HASSAN [facility] 10-19-2016 seasonal influenza, intradermal, preservative free Connor G Furlong Work Phone: [facility] DO Work Phone: 10-06-2016 influenza virus vacc ine, unspecified formulation Yehuda HASSAN [facility] 10-06-2016 influenza, seasonal, injectable, preservative free Connor G Furlong [facility] Work Phone: 04-10-2016 pneumococcal conjuga te vaccine, 13 valent Connor G Furlong Work Phone: [facility] 04-06-2016 pneumococcal conjuga te vaccine, 13 valent Yehuda HASSAN [facility] 08-07-2014 influenza virus vacc ine, unspecified formulation Connor Marinelli Furlong Work Phone: [facility] 250 DO Work Phone: 08-07-2014 Influenza, High-dose , Quadrivalent Connor Furlong DO Work Phone: [facility] 08-07-2014 influenza, unspecifi ed formulation Yehuda HASSAN [facility] 07-29-2014 influenza virus vacc ine, unspecified formulation Connor Marinelli Furlong Work Phone: [facility] 250 DO Work Phone: 07-29-2014 pneumococcal polysaccharide vaccine, 23 valent Connor G Furlong Work Phone: [facility] 10-02-2013 pneumococcal conjuga te vaccine, 13 valent Connor G Furlong Work Phone: [facility] 02-14-2013 zoster vaccine, live Connor Marienlli Furlong Work Phone: [facility] 10-29-2012 influenza virus vacc ine, unspecified formulation Connor Marinelli Furlong Work Phone: [facility] 250 DO Work Phone: 10-29-2012 pneumococcal polysaccharide vaccine, 23 valent Connor G Furlong [facility] Phone: [facility] DO Work Phone: 10-29-2010 pneumococcal polysaccharide vaccine, 23 valent Connor Furlong DO Work Phone: [facility] 02-21-2010 pneumococcal polysaccharide vaccine, 23 valent Connor G Furlong Work Phone: [facility] 02-21-2010 tetanus toxoid, redu mariano diphtheria toxoid, and acellular pertussis vaccine, adsorbed Connor Anaya Work Phone: [facility] 12-20-2009 novel influenza-H1N1 -09, preservative-free, injectable Connor Tavaresng Work Phone: [facility] 600 DO Work Phone: 11-29-2009 novel influenza-H1N1 -09, preservative-free, injectable Connor Tavaresng Work Phone: [facility] 250 DO Work Phone: 09-06-1999 TD(adult) unspecifie d formulation; Translations: [Td(adult) unspecified formulation] Connor Anaya Work Phone: [facility] 09-06-1999 tetanus and diphther ia toxoids, adsorbed, preservative free, for adult use (2 Lf of tetanus toxoid and 2 Lf of diphtheria toxoid) Connor Anaya DO Work Phone: [facility] influenza virus vacc ine, unspecified formulation Connor Anaya Work Phone: [facility] 250 DO Work Phone: Comment on above: 2010Jul 2012 pneumococcal polysaccharide vaccine, 23 valent Connor Anaya Work Phone: [facility] 250 DO Work Phone: Comment on above: 2010 Payers Date Payer Category Payer Medicare (Managed Care) [facility] IC[facility] COM[facility]TE [id number] 5 2024 Medicare [id number] 2023 Private Health Insurance [id number] 5 2015 Managed Care Other (unspecified) [facility] [id number] 2015 Medicare [id number] 1.13.647 .[id number] 2015 Miscellaneous or Other [facility] [id number] .[id number] 5 2015 Unknown 2015 Unknown [id number] 1959 Medicare [id number] 1959 Unknown [id number] 1950 Unknown [id number] 2.16.840.1.001385.3.579 .2.356 1950 Unknown [id number] 2.16.840.1.407549.3.579 .2.356 1950 Unknown [id number] 2.16.840.1.783044.3.579 .2.356 1950 Unknown [id number] 2.16.840.1.128350.3.579 .2.593 1950 Unknown [id number] 2.16.840.1.583594.3.579 .2.593 1950 Unknown [id number] 2.16.840.1.556668.3.579 .2.593 1950 Unknown [id number] 2.16.840.1.468438.3.579 .2.593 1950 Unknown [id number] 2.16.840.1.764945.3.579 .2.593 1950 Unknown [id number] 2.16.840.1.894800.3.579 .2.593 1950 Unknown [id number] 2.16.840.1.314456.3.579 .2.593 1950 Unknown [id number] 2.16.840.1.496326.3.579 .2.593 1950 Unknown [id number] 2.16.840.1.994884.3.579 .2.593 1950 Unknown [id number] 2.16.840.1.438832.3.579 .2.593 1950 Unknown [id number] 2.16.840.1.858996.3.579 .2.593 1950 Unknown [id number] 2.16.840.1.526309.3.579 .2.593 1950 Unknown [id number] 2.16.840.1.341415.3.579 .2.593 1950 Unknown [id number] 2.16.840.1.998408.3.579 .2.593 1950 Unknown [id number] 2.16.840.1.964740.3.579 .2.593 1950 Unknown [id number] 2.16.840.1.951183.3.579 .2.593 1950 Unknown [id number] 2.16.840.1.229945.3.579 .2.593 1950 Unknown [id number] 2.16.840.1.361398.3.579 .2.593 1950 Unknown [id number] 2.16.840.1.064547.3.579 .2.593 1950 Unknown [id number] 2.16.840.1.400285.3.579 .2.593 1950 Unknown [id number] 2.16.840.1.166614.3.579 .2.593 1950 Unknown [id number] 2.16.840.1.695339.3.579 .2.593 1950 Unknown [id number] 2.16.840.1.128304.3.579 .2.593 1950 Unknown [id number] 2.16.840.1.474537.3.579 .2.593 1950 Unknown [id number] 2.16.840.1.256235.3.579 .2.593 1950 Unknown [id number] 2.16.840.1.444679.3.579 .2.593 1950 Unknown [id number] 2.16.840.1.445415.3.579 .2.593 1950 Unknown [id number] 2.16.840.1.282200.3.579 .2.593 1950 Unknown [id number] 2.16.840.1.087925.3.579 .2.593 1950 Unknown [id number] 2.16.840.1.148732.3.579 .2.593 1950 Unknown [id number] 2.16.840.1.435635.3.579 .2.593 1950 Unknown [id number] 2.16.840.1.816862.3.579 .2.593 1950 Unknown [id number] 2.16.840.1.681159.3.579 .2.593 1950 Unknown [id number] 2.16.840.1.015783.3.579 .2.593 1950 Unknown [id number] 2.16.840.1.088225.3.579 .2.593 1950 Unknown [id number] 2.16.840.1.609083.3.579 .2.727 1950 Unknown [id number] 2.16.840.1.156327.3.579 .2.727 1950 Unknown [id number] 2.16.840.1.717055.3.579 .2.727 1950 Unknown [id number] 2.16.840.1.409666.3.579 .2.727 1950 Unknown [id number] 2.16.840.1.686218.3.579 .2.727 1950 Unknown [id number] 2.16.840.1.116952.3.579 .2.727 1950 Unknown [id number] 2.16.840.1.355073.3.579 .2.727 1950 Unknown [id number] 2.16.840.1.769294.3.579 .2.727 1950 Unknown [id number] 2.16.840.1.573656.3.579 .2727 1950 Unknown [id number] 2.16.840.1.717826.3.579 .2.1286 1950 Unknown [id number] 2.16.840.1.246272.3.579 .2.1286 1950 Unknown [id number] 2.16.840.1.119216.3.579 .2.727 1950 Unknown [id number] 2.16.840.1.585962.3.579 .2.727 1950 Unknown [id number] 2.16.840.1.236084.3.579 .2.727 1950 Unknown [id number] 2.16.840.1.866847.3.579 .2.1244 1950 Unknown [id number] 2.16.840.1.103891.3.579 .2.1243 1950 Unknown [id number] 2.16.840.1.947908.3.579 .2.1243 1950 Unknown [id number] 2.16.840.1.325058.3.579 .2. 1950 Unknown [id number] 2.16.840.1.711862.3.579 .2.9 1950 Unknown [id number] 2.16.840.1.637534.3.579 .2.1258 1950 Unknown [id number] 2.16.840.1.726631.3.579 .2.9 1950 Unknown [id number] 2.16.840.1.997428.3.579 .2.1258 1950 Unknown [id number] 2.16.840.1.399306.3.579 .2.1259 1950 Unknown [id number] 2.16.840.1.865623.3.579 .2.128 1950 Unknown [id number] 2.16.840.1.601153.3.579 .2.128 1950 Unknown [id number] 2.16.840.1.569631.3.579 .2.128 1950 Unknown [id number] 2.16.840.1.572868.3.579 .2.1286 Social History Date Type Detail Facility Start: 02-20-2023 End: 03-06-2024 Never a smoker Never a smoker -[facility] 600 DO Work Phone: Start: 12-28-2021 End: 11-13-2022 Tobacco smoking status Never smoked tobacco (finding) [facility] Tobacco smoking status Never [facility] Start: 02-20-2023 End: 03-06-2024 Sex Assigned At Female [facility] Start: 11-13-2022 End: 08-17-2023 Tobacco use and exposure Smokeless tobacco non-user [facility] Start: 03-06-2024 Alcoholic beverage intake Life time non-drinker (finding) [facility] Work Phone: Start: 1950 Sex assigned at Not on file P [facility] Start: 02-25-2024 End: 08-28-2024 Exposure to SARS-CoV-2 (event) Not sure [facility] Start: 08-18-2024 End: 10-13-2024 Alcoholic beverage intake Ex-drinker (finding) [facility] Do you belong to any clubs or organizations such as buddhism groups, unions, fraternal or athletic groups, or school groups? No [facility] Are you now , , , , never or living with a partner? [facility] How often to you hav e a drink containing alcohol? Never [facility] Do you feel stress - tense, restless, nervous, or anxious, or unable to sleep at night because your mind is troubled all the time - these days [OSQ] Only a little [facility] Start: 06-02-2015 Sex Female (finding) [facility] Functional Status Date Assessment Result Facility 07-15-2024 Functional Status N/A [facility] 08-24-2022 Functional Status N/A [facility] 06-30-2022 Functional Status N/A [facility] Clinical Notes 06-30-2022 to 11-25-2024 Connor Anaya, DO - 11/25/2024 3:20 PM ESTJr. Lesvia Mcclain, DO - 11/04/2024 11:00 AM Rae Anaya, DO - 10/13/2024 8:30 AM Rae Anaya, DO - 09/03/2024 4:51 PM EST Note Date & Type Note Facility 11-25-2024 History of Present illness Narrative Subjective SUBJECTIVE: Patient ID: Miky Fuentes is a 74 y.o. female who presents for a Medicare Annual Wellness exam. HPI The following portions of the patient's history were reviewed and updated as appropriate: allergies, current medications, past family history, past medical history, past social history, past surgical history and problem list. AWV FLOWSHEET : Lifestyle Assessment Do you smoke or use smokeless tobacco?: No If you smoke or use smokeless tobacco, are you ready to quit?: NA Are you exposed to secondhand smoke?: No On average, how many drinks of alcohol do you consume in a week?: None Do you exercise for 30 or more minutes on average at least 3 days a week?: Often Do you have any tooth, denture, or oral problems?: (!) Yes Do you snore or has anyone told you that you snore?: No Do you try to eat a balanced diet?: Yes Do you experience leakage of urine, also known as urinary incontinence?: Never Do you have difficulty performing any of these activities? (check all that apply): None Do you have difficulty performing any of these activities? (check all that apply): None Fall Risk Fall Risk Assessment Completed?: Yes Have you fallen in the past year?: (!) Yes How many times?: 1 Were you injured?: No Are you worried about falling?: (!) Yes Do you feel unsteady when standing or walking?: (!) Yes Risk Stratification: Moderate Risk Depression Screening Little interest or pleasure in doing things: Not at all Feeling down, depressed, or hopeless: Not at all Trouble falling or staying asleep, or sleeping too much: Not at all Feeling tired or having little energy: Not at all Poor appetite or overeating: Not at all Feeling bad about yourself - or that you are a failure or have let yourself or your family down: Not at all Trouble concentrating on things, such as reading the newspaper or watching television: Not at all Moving or speaking so slowly that other people could have noticed. Or the opposite - being so fidgety or restless that you have been moving around a lot more than usual: Not at all Thoughts that you would be better off , or of hurting yourself in some way: Not at all PEG Scale Safety Assessment Do you have throw rugs on the floor?: No Do you feel safe at your home?: Yes Do you feel unsteady when walking?: (!) Yes Are you having difficulty with driving?: No (difficulty at night) Do you have trouble seeing?: No What assistive device do you use? (check all that apply): None Hearing Assessment Do you strain or struggle to hear/understand conversations?: No Do you have trouble hearing the television or radio when others do not?: No Does your family ever voice concerns about your hearing?: No Do you wear hearing aid/s?: No Personal Health During the past 4 weeks, how would you rate your overall health?: Good Do you understand how to take all of your medications?: Yes How confident are you that you can control and manage most of your health problems?: Very confident In the past 12 months, how many times have you been hospitalized?: (!) One End of Life Planning Do you have a living will?: Yes Do you have a durable power of consumer attorney?: Yes Cognitive Screening Do you have trouble remembering or recalling facts or events?: (!) Yes Do family members or caregivers report that you have difficulty remembering things?: No 6-Cit: Abnormal Mini-Mental Status Exam Will return to the office for further evaluation. REVIEW OF SYSTEMS: Review of Systems Objective PHYSICAL EXAMINATION: Vitals: 11/25/24 1525 BP: 110/56 Weight: 95.1 kg (209 lb 9.6 oz) Height: 160 cm (5' 3 ) Physical Exam Assessment/Plan ASSESSMENT/PLAN Encounter Diagnoses Name Primary? Medicare annual wellness visit, subsequent Yes Screening for depression Health maintenance discussed. Depression screen was negative. At least 3 minute spent administering and discussing. Cognitive evaluation did revealed impairment. She will come back to the office for further evaluation to assess for dementia. She has advanced directives in place. Return in about 1 year (around 11/25/2025). documented in this encounter [facility] 11-04-2024 History of Present illness Narrative Images from the original note were not included. History of present ILLNESS: EST PT Miky Fuentes is an 74 y.o. @ female. (EST PT W/ BOLIVAR) RECHECK (R) KNEE ; S/P CORTISONE INJ 09/02/24 (9 WKS) CURRENT BMI 34.81 XRAYS, 09/02/24 IN EPIC NO MRI NO MDP / PREDNISONE S/P CORTISONE INJ 09/02/24, 01/15/19, 02/11/18 NO PHYSICAL THERAPY NO PAIN MGMT NOTES GOOD RELIEF FROM CORTISONE INJ ; DENIES ANY CURRENT DISCOMFORT. NOTES GOOD ROM - SOME CRACKING AFTER PROLONGED SITTING / REST ; DENIES ANY INSTABILITY. DENIES ANY SWELLING. TAKING TYLENOL ARTHRITIS BID - WITH RELIEF TAKING XARELTO ; H/O A-FIB PREVIOUS (L) TKA 11/08/17 - DR MCCLAIN ; NOTES PREVIOUS FALL ON (L) KNEE ~ 2023 - DENIES ANY INCREASED PAIN TO (L) KNEE ALLERGIES: Allergies Allergen Reactions Dust Mite Extract Other Reaction(s): Unknown Ciprofloxacin Rash and Unknown [place] Oil Diarrhea Milk (Cow) Other Increased Mucus Molds & Smuts Other Stuffiness / Raspy Voice Sulfa Antibiotics Rash and Unknown Sulfamethoxazole-Trimethoprim Rash HOME MEDICATIONS: Current Outpatient Medications Medication Instructions acetaminophen (TYLENOL) 325 mg, Oral, Every 4 hours allopurinol (ZYLOPRIM) 300 mg, Oral, Daily calcium carbonate 600 mg, Oral, 2 times daily with meals cholecalciferol (VITAMIN D-[address]) 25 mcg, Oral, 2 times daily dronedarone (MULTAQ) 400 mg, Oral, As needed Ferrous Sulfate (IRON PO) 1 tablet, Oral, Daily RT fexofenadine (HANNAH) 180 mg, Oral, Daily RT Krill Oil 1000 MG capsule Orally levothyroxine (SYNTHROID, LEVOXYL) 137 mcg, Oral, Every morning lisinopril 2.5 mg, Oral, Daily loratadine (CLARITIN) 10 mg, Oral, Every 24 hours lovastatin (MEVACOR) 10 mg, Oral, Daily RT Multiple Vitamins-Minerals (CENTRUM SILVER ADULT 50+ PO) as directed Orally Jackson-3 Fatty Acids (OMEGA-3 FISH OIL PO) Oral potassium bicarbonate (Effer-K) 25 MEQ effervescent tablet 25 mEq, Oral sodium bicarbonate 650 mg, Oral, Once tamsulosin (FLOMAX) 0.4 mg, Daily Xarelto 20 mg, Oral, Daily PHYSICAL EXAM: [...] extension: 0 Passive extension: 0 Active flexion: 110 Passive flexion: 120 Strength Right Right knee [...] Neurological: alert Skin: intact Lymphadenopathy: none Vitals: Body mass index is 34.81 kg/m . Tobacco Use: Low Risk (11/04/2024) Patient History Smoking Tobacco Use: Never Smokeless Tobacco Use: Never Passive Exposure: Not on file Alcohol Use: Not At Risk (02/20/2023) [facility] Frequency of Alcohol Consumption: Never Average Number of Drinks: Patient does not drink Frequency of Binge Drinking: Never IMAGING: Procedures No orders of the defined types were placed in this encounter. ASSESSMENT: No diagnosis found. PLAN: Patient states her right knee is completely asymptomatic today. She is very pleased with her progress after her cortisone injection. We have discussed restrictions in her home exercise program. We'll see her back in 1 year. If her symptoms persist or worsen, we may proceed with another cortisone injection. Questions answered in laymen terms at the bedside. The diagnosis, home exercise plan and any ongoing restrictions/ recommendations reviewed. If unable to be reached in office, I recommend evaluation at nearest Emergency Room if any symptoms worsened or new symptoms develop for requiring urgent evaluation. documented in this encounter [facility] 10-17-2024 Note [facility] Note Reason for cardiology consult: Chief Complaint: Occasional palpitations HPI: Miky Fuentes is a 74 y.o. female with history of paroxysmal atrial fibrillation, nonischemic cardiomyopathy, asymptomatic sinus bradycardia, hypertension, hyperlipidemia, obesity status post bariatric surgery, hypothyroidism. She was followed previously by [facility] cardiology in [place]. Recently she was seen in [facility] on 09/12/[address] Resendez after she presented with kidney stone required ureteral stent placement. During the procedures she had 5 beat nonsustained ventricular tachycardia, and sinus bradycardia. Her labs were normal. Echocardiographic study and event monitor were recommended. The event monitor showed 1 ventricular tachycardia 14 beats therefore she was admitted to the hospital and she was seen on 09/29/2024 by . Cardiology ROS: GENERAL: Denies fever, chills, night sweats, weight loss. HEENT: Denies changes in vision, photophobia, changes in hearing, epistaxis, oral bleeding. CARDIOVASCULAR: Denies chest pain, exertional dyspnea, orthopnea/PND, lower extremity edema, palpitations, lightheadedness/dizziness. RESPIRATORY: Denies SOB, coughing, wheezing GI: Denies abdominal pain, nausea/vomiting, heartburn, melena/hematochezia. RENAL: Denies dysuria, hematuria, flank pain. MSK: Denies muscle weakness/pain, arthralgias/joint pain. NEUROLOGIC: Denies LOC, weakness, numbness, headaches. SKIN: Denies abnormal rashes or bleeding. PSYCH: Denies significant anxiety, depression, sleep disturbances. Past Medical History She has a past medical history of Abnormal ECG, Arrhythmia, Atrial fibrillation (CMS/HCC), Chronic kidney disease, Diabetes mellitus (CMS/HCC), Hyperlipidemia, Hypertension, Hypothyroidism, and Obesity. Surgical History She has a past surgical history that includes Bariatric Surgery. Social History She has no history on file for tobacco use, alcohol use, and drug use. Family History No family history on file. Allergies Ciprofloxacin and Sulfa (sulfonamide antibiotics) Medications Current Outpatient Medications: allopurinol (Zyloprim) 300 mg tablet, Take 300 mg by mouth in the morning., Disp: , Rfl: dronedarone (Multaq) 400 mg tablet, Take 400 mg by mouth if needed., Disp: , Rfl: Effer-K 25 mEq effervescent tablet, Take 25 mEq by mouth once daily as directed., Disp: , Rfl: fexofenadine (Hannah) 180 mg tablet, Take 180 mg by mouth in the morning., Disp: , Rfl: levothyroxine (Synthroid, Levoxyl) 100 mcg tablet, Take 100 mcg by mouth before breakfast., Disp: , Rfl: losartan (Cozaar) 50 mg tablet, Take 50 mg by mouth in the morning., Disp: , Rfl: lovastatin (Mevacor) 10 mg tablet, Take 10 mg by mouth in the morning., Disp: , Rfl: rivaroxaban (Xarelto) 20 mg tablet, Take 20 mg by mouth in the morning., Disp: , Rfl: Last Recorded Vitals Visit Vitals BP 118/64 (BP Location: Right arm, Patient Position: Sitting) Pulse (!) 49 Ht 1.626 m (5' 4 ) Wt 94.8 kg (209 lb) SpO2 99% BMI 35.87 kg/m??? BSA 2.07 m??? Physical Examination: GENERAL: alert and oriented x3, well developed, in no acute distress. HEAD: atraumatic, normocephalic. EYES: ROCHELLE, EOMI. NECK: trachea midline, no JVD present, no carotid bruits present. CARDIAC: S1, S2 present. RRR. No murmur, rubs, or gallops. RESPIRATORY: CTAB, no increased effort of breathing, no rales, rhonchi, or wheezing. ABDOMEN: soft, nontender, nondistended. EXTREMITIES: no lower extremity edema, peripheral pulses are 2+ bilaterally. No rash/skin discoloration present. NEURO: strength/sensation equal and symmetric in bilateral upper and lower extremities. PSYCH: appropriate mood, affect, and judgement. Labs: 09/29/2024 White blood count 4.5, hemoglobin 9.5, hematocrit 29.6, platelets 253 Sodium 143, potassium 3.9, BUN 16, creatinine 1.06, GFR above 60, glucose 88, calcium 9.4, magnesium 2.1 BNP 240 High-sensitivity troponin 19.2 then 32.8 both normal 08/18/2024 Cholesterol 187, triglycerides 68, HDL 66, LDL 107 TSH 0.35, free T41.33 Last Images: EKG 09/29/2024 showed sinus bradycardia 56 bpm with isolated PVCs, nonspecific T changes EKG 07/28/2024 showed sinus bradycardia, nonspecific ST changes Lexiscan nuclear stress test 09/29/2024 at [facility] next EKG portion An pants busheler uninterpretable baseline rhythm due to large amount of artifact Chest pressure with Lexiscan injection and large PVCs burden Nondiagnostic EKG due to an interpretable EKG Nuclear images: Large fixed defect in the anterior and inferior dorado, LAD and RCA distributions No redistribution to suggest reversible ischemia Dilated left ventricle with end-diastolic volume of 151 cc 30-day event monitor Assessment and Plan: Ventricular tachycardia 14 beats noted on event monitor, prior to that she had short run of nonsu (more content not included)... [facility] 10-13-2024 History of Present illness Narrative Subjective Patient ID: Miky Fuentes is a 74 y.o. female. The patient is here today for discharge follow up from hospital. Transition of Care Med Rec completed? Yes Discharged medications: Medications have been reviewed and reconciled with the most recent facility discharge document. Miky presents for hospital follow up. She has been taking her medications. She did have 1 episode of dizziness while at home. She did fall and land on her left knee. Her grandson was there and helped her up. Was no loss of consciousness. She has not had that problems since. Otherwise she is taking her medications. The following portions of the patient's history were reviewed and updated as appropriate: allergies, current medications, past family history, past medical history, past social history, past surgical history, problem list, and medication reconciliation was completed including current medication and post discharge medication. Review of Systems Objective Physical Exam Constitutional: General: She is not in acute distress. Appearance: She is not ill-appearing. HENT: Head: Normocephalic. Eyes: Extraocular Movements: Extraocular movements intact. Conjunctiva/sclera: Conjunctivae normal. Cardiovascular: Rate and Rhythm: Normal rate and regular rhythm. Heart sounds: Normal heart sounds. No murmur heard. Pulmonary: Effort: Pulmonary effort is normal. No respiratory distress. Breath sounds: Normal breath sounds. No wheezing, rhonchi or rales. Neurological: General: No focal deficit present. Mental Status: She is alert. Assessment/Plan Miky was seen today for tcm dec 1-3 tbh. Diagnoses and all orders for this visit: Nonsustained ventricular tachycardia (CMS-HCC) Follow up with cardiology as directed. Continue current regimen. Hospital records and tests reviewed. Non-ischemic cardiomyopathy (CMS-HCC) As above. She did have an abnormal Lexiscan. She needs to follow up with Cardiology. Paroxysmal atrial fibrillation (CMS-HCC) Continue Xarelto Primary hypertension Blood pressure is low normal. Recommended check blood pressure at home especially when she gets dizzy. Need for immunization against influenza - Influenza, Trivalent, Adjuvanted She agrees to a flu shot. 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 She would benefit from weight loss. documented in this encounter [facility] 09-28-2024 Miscellaneous Notes Contract: [facility] Suki travis critical EKG report Relayed info to Dr Anaya on cell and transferred documented in this encounter [facility] 09-28-2024 Telephone encounter Note Contract: [facility] [facility] travis critical EKG report [facility] 09-28-2024 Telephone encounter Note Relayed info to Dr Anaya on cell and transferred [facility] 09-03-2024 History of Present illness Narrative Patient has severe OA of the knee. Handicap parking placard printed documented in this encounter [facility] 09-02-2024 History of Present illness Narrative [...] KNEE TODAY EPIC 09/02/24 XRAYS 03/26/24 IN [facility] NO MRI NO MDP / PREDNISONE [...] SILVER ADULT 50+ PO) as directed Orally Jackson-3 Fatty Acids (OMEGA-3 FISH OIL PO) Oral [...] Use: Not At Risk (02/20/2023) Received from [employer], [employer] AUDIT-C Frequency of Alcohol Consumption: Never Average [...] requiring urgent evaluation. documented in this encounter [facility] 09-02-2024 Miscellaneous Notes Patient called to renew her handicap placard. 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 Okay, it is ready documented in this encounter [facility] [employer] [facility] 09-02-2024 Telephone encounter Note Patient called to renew her handicap placard. 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 [facility] [employer] [facility] 09-02-2024 Telephone encounter Note Okay, it is ready [facility] [employer] [facility] 08-28-2024 History of Present illness [...] once daily., Disp: 90 tablet, Rfl: 3 rmuorjyv-qdi-huiy-FA-vit K-lut (Centrum Silver Women) 8 mg iron-400 mcg-50 mcg tablet, Take 1 tablet by mouth once daily., Disp: , Rfl: omega-3 fatty acids-fish oil (One-Per-Day Jackson-3) 684-1,200 mg capsule, Take 1 capsule (1,200 [...] Scribe Attestation By signing my name below, IHollie LPN, Scribe attest that this documentation has [...] plan. documented in this encounter [facility] Work Phone: 08-28-2024 Instructions Hollie Gleason [...] months documented in this encounter [facility] Work Phone: 08-18-2024 History of Present [...] gradually lost weight documented in this encounter [facility] [employer] 07-29-2024 Evaluation + Plan note Diagnostic Tests PendingUroVysion Fish and Urine Cyto ([facility]) 07/29/24 [facility] 07-15-2024 Hospital Discharge instructions Patient Education 07/15/2024 15:39:15 Kidney Stones, Ebit-rw-Tmbk Kidney Stones Kidney stones are rock-like masses [...] causes? Kidney stones may be caused by: Too much calcium in the body. This may be caused by too much parathyroid hormone in the blood. Uric acid crystals in the bladder. The body makes uric acid when you eat certain foods. Narrowing of one or both of the ureters. A kidney blockage that you were born with. Past surgery on the kidney or the ureters. What increases the risk? You are more likely to develop this condition if: You have had a kidney stone in the past. Other people in your family have had kidney stones. You do not drink enough water. You eat a diet that is high in protein, salt (sodium), or sugar. You are very overweight (obese). What are the signs or symptoms? Symptoms of a kidney stone may include: Pain in the side of the belly, right below the ribs. Pain usually spreads to the groin. Needing to pee often or right away. Pain when peeing. Blood in your pee. Feeling like you may vomit (nauseous). Vomiting. Fever and chills. How is this treated? Treatment depends on the size, location, and makeup of the kidney stones. The stones will often pass out of the body when you pee. You may need to: Drink more fluid to help pass the stone. ?In some cases, you may be given fluids through an IV tube at the hospital. Take medicine for pain. Change your diet to help keep kidney stones from coming back. Sometimes, you may need: A procedure to break up kidney stones using a beam of light (laser) or shock waves. Surgery to remove the kidney stones. Follow these instructions at home: Medicines Take gcur-iop-wayctto and prescription medicines only as told by your doctor. Ask your doctor if the medicine prescribed to you requires you to avoid driving or using machinery. Eating and drinking Drink enough fluid to keep your pee pale yellow. ?You may be told to drink at least 8 10 glasses of water each day. This will help you pass the stone. If told by your doctor, change your diet. You may be told to: ?Limit how much salt you eat. ?Eat more fruits and vegetables. ?Limit how much meat, poultry, fish, and eggs you eat. Follow instructions from your doctor about what you may eat and drink. General instructions Collect pee samples as told by your doctor. You may need to collect a pee sample: ?24 hours after a stone comes out. ?8 12 weeks after a stone comes out, and every 6 12 months after that. Strain your pee every time you pee. Use the strainer that your doctor recommends. Do not throw out the stone. Keep it so that it can be tested by your doctor. Keep all follow-up visits. You may need [...] find more information National Kidney Foundation (NKF): kidney.org Urology Care Foundation (UCF): urologyhealth.org Contact a doctor if: You have pain that gets worse or does not get better with medicine. Get help right away if: You have a fever or chills. You get very bad pain. You get new pain in your belly. You faint. You cannot pee. This information is not intended to replace advice given to you by your health care provider. Make sure you discuss any questions you have with your health care provider. Document Revised: 06/08/2023 Document Reviewed: 06/08/2023 [employer] Patient Education 2023 [employer]. 07/15/2024 15:39:14 Hematuria, Adult Hematuria, Adult Hematuria is blood in the urine. Blood may be visible in the urine, or it may be identified with a test. This condition can be caused by infections of the bladder, urethra, kidney, or prostate. Other possible causes include: Kidney stones. Cancer of the urinary tract. Too much calcium in the urine. Conditions that are passed from parent to child (inherited conditions). Exercise that requires a lot of energy. [...] cancers. Follow these instructions at home: Medicines Take bvxy-shv-wjnbmkt and prescription medicines only as told by your health care provider. If you were prescribed an antibiotic medicine, take it as told by your health care provider. Do not stop taking the antibiotic even if you start to feel better. Eating and drinking Drink enough fluid to keep your urine pale yellow. It is recommended that you drink 3 4 quarts (2.8 3.8 L) a day. If you have been diagnosed with an infection, drinking cranberry juice in addition to large amounts of water is recommended. Avoid caffeine, tea, and carbonated beverages. These tend to irritate the bladder. Avoid alcohol because it may irritate the prostate (in males). General instructions If you have been diagnosed with a kidney stone, follow your health care provider's instructions about straining your urine to catch the stone. Empty your bladder often. Avoid holding urine for long periods of time. If you are female: ?After a bowel movement, wipe from front to back and use each piece of toilet paper only once. ?Empty your bladder before and after sex. Pay attention to any changes in your symptoms. Tell your health care provider about any changes or any new symptoms. It is up to you to get the results of any tests. Ask your health care provider, or the department that is doing the test, when your results will be ready. Keep all follow-up visits. This is important. Contact a health care provider if: You develop back pain. You have a fever or chills. You have nausea or vomiting. Your symptoms do not improve after 3 days. Your symptoms get worse. Get help right away if: You develop severe vomiting and are unable to take medicine without vomiting. You develop severe pain in your back or abdomen even though you are taking medicine. You pass a large amount of blood in your urine. You pass blood clots in your urine. You feel very weak or like you might faint. You faint. Summary Hematuria is blood in the urine. It has many possible causes. It is very important that you tell your health care provider about any blood in your urine, even if it is painless or the blood stops without treatment. Take akgd-olk-qghoreu and prescription medicines only as told by your health care provider. Drink enough fluid to keep your urine pale yellow. This information is not intended to replace advice given to you by your health care provider. Make sure you discuss any questions you have with your health care provider. Document Revised: 06/15/2021 Document Reviewed: 06/15/2021 [employer] Patient Education 2023 [employer]. Follow Up Care 07/03/2024 12:40:23 With:MO HAYDEN, Yehuda Haddad, URL Address: [address] [place], [place] [id number]- When: Unknown Comments:pending review of imaging [facility] 07-15-2024 Note Patient Education Urology Kidney [...] these instructions at home: Medicines ? Take mqzp-ata-pmyssig and prescription medicines only as told by [...] provider. Document Revised: 06/08/2023 Document Reviewed: 06/08/2023 [employer] Patient Education ? 2023 [employer]. Hematuria, Adult Hematuria is blood in the [...] (more content not included)... [facility] 07-15-2024 Evaluation + Plan note Diagnostic Tests PendingUrine Cytology ([facility]) 07/15/24 [facility] 03-06-2024 History of Present illness Narrative [place] [...] once daily., Disp: 90 tablet, Rfl: 3 vaxjubri-xqi-jnuu-FA-vit K-lut (Centrum Silver Women) 8 mg iron-400 mcg-50 mcg tablet, Take 1 tablet by mouth once daily., Disp: , Rfl: omega-3 fatty acids-fish oil (One-Per-Day Jackson-3) 684-1,200 mg capsule, Take 1 capsule (1,200 [...] Scribe Attestation By signing my name below, Kimberley Villa LPN, Scribe attest that this documentation [...] plan. documented in this encounter [facility] Work Phone: 03-06-2024 Instructions Ivett Mcpherson [...] visit. documented in this encounter [facility] Work Phone: 02-20-2024 Miscellaneous Notes 02/17 received HST order 02/19 Scheduled HST at PM 520, 7:30pm Confirmation mailed Routed to Dr. Hussein for approval Medicare/[employer] [place] HST order and 02/17 [place] notes in epic DIRECT REFFERAL ; NEEDS APPROVAL documented in this encounter [facility] 02-20-2024 Telephone encounter Note 02/17 received HST order 02/19 Scheduled HST at PM[facility] 520, 7:30pm Confirmation mailed Routed to Dr. Hussein for approval Medicare/[employer] [place] HST order and 02/17 [place] notes in epic [facility] 02-20-2024 Telephone encounter Note DIRECT REFFERAL ; NEEDS APPROVAL [facility] 02-18-2024 History of Present illness Narrative Subjective Patient ID: Miky Fuentes is a 73 y.o. female. Miky presents for recheck of neurocognitive impairment. She feels it is about the same. She has her moments where she can not remember very well. She does have sleep apnea but it resolved following significant weight loss after her bariatric surgery. She was never retested to see if she still had it. She does report a lot of energy. Follow-up The following portions of the patient's history were reviewed and updated as appropriate: allergies, current medications, past family history, past medical history, past social history, past surgical history, problem list, and medication reconciliation was completed including current medication and post discharge medication. Review of Systems Constitutional: Negative. Respiratory: Negative. Cardiovascular: Negative. Genitourinary: Negative. Psychiatric/Behavioral: Positive for decreased concentration. Objective Physical Exam Constitutional: General: She is not in acute distress. Appearance: She is obese. HENT: Head: Normocephalic. Eyes: Extraocular Movements: Extraocular movements intact. Conjunctiva/sclera: Conjunctivae normal. Cardiovascular: Rate and Rhythm: Normal rate and regular rhythm. Pulses: Normal pulses. Heart sounds: Normal heart sounds. No murmur heard. Pulmonary: Effort: Pulmonary effort is normal. No respiratory distress. Breath sounds: Normal breath sounds. No wheezing, rhonchi or rales. Musculoskeletal: Cervical back: Neck supple. Lymphadenopathy: Cervical: No cervical adenopathy. Neurological: General: No focal deficit present. Mental Status: She is alert and oriented to person, place, and time. Psychiatric: Attention and Perception: Attention normal. Mood and Affect: Mood and affect normal. Speech: Speech normal. Behavior: Behavior normal. Behavior is cooperative. Thought Content: Thought content normal. Judgment: Judgment normal. Assessment/Plan Miky was seen today for follow-up. 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 Check BMP. Continue current regimen Minimal cognitive impairment Stable. Neurocognitive consult reviewed. Consider low-dose stimulant. Will hold off due to heart rhythm problems Sleep apnea, unspecified type - Home sleep study; Future Check home sleep study to see if she has been cured from her sleep apnea following bariatric surgery. Acquired hypothyroidism - Thyroid profile includes TSH FT4; Future Check TSH and T4. Class 2 severe obesity due to excess calories with serious comorbidity and body mass index (BMI) of 37.0 to 37.9 in adult ([facility]) She is still obese. Diet exercise and weight loss discussed. She would benefit from weight loss. Patient noted to have elevated BMI and the following intervention(s) were applied: encouragement to exercise and prescribed diet education. Other orders - fexofenadine (HANNAH) 180 mg tablet; Take 1 tablet (180 mg total) by mouth in the morning. - qfqxe-xd-0-rjw-ymd-toloaci-ast (KRILL OIL) 1,340-226-86-80 mg capsule; Take 1 capsule by mouth in the morning. documented in this encounter [employer] 09-05-2022 Hospital Discharge instructions Patient Education 09/05/2022 [...] With:Yehuda HASSAN Address: [facility] [address], [place] [address]- Business (1) When:03/05/2023 12:06:31 [facility] 06-30-2022 Hospital Discharge instructions Patient Education 06/30/2022 12:01:44 Kidney Stones, Vfgw-qr-Qzho Kidney Stones Kidney stones are rock-like masses [...] Follow these instructions at home: Medicines Take kkzb-hoc-lgrlzqj and prescription medicines only as told by [...] 04/02/2009 Document Revised: 03/02/2020 Document Reviewed: 03/02/2020 [employer] Patient Education 2019 [employer]. Follow Up Care 12/28/2021 15:15:51 With:Yehuda HASSAN MD, URL Address: [address] [place] [id number]- When: Unknown [facility] Evaluation + Plan note Future Appointments Appointment Date:03/02/2023 11:00:00 AM Scheduled Provider:Yehuda HASSAN MD Location:[facility] Appointment Type:URO Office Visit [facility] Evaluation + Plan note Future Appointments Appointment Date:03/02/2023 11:00:00 AM Scheduled Provider:[facility]uda [facility]ASSAN [facility] Office Visit Diagnostic Tests PendingUrine Culture 08/11/22 [facility] Evaluation + Plan note Future Appointments Appointment Date:03/02/2023 11:00:00 AM Scheduled Provider:Yehuda HASSAN MD Location:[facility] Appointment Type:URO Office Visit Diagnostic Tests PendingUroVysion Fish and Urine Cyto ([facility]) 09/05/22 [facility] Evaluation + Plan note Future Appointments Appointment Date:05/16/2024 10:45:00 AM Scheduled Provider:Yehuda HASSAN MD Location:[facility] Appointment Type:URO Office Visit [facility] Evaluation + Plan note Future Appointments Appointment Date:05/20/2024 11:00:00 AM Scheduled Provider:RAAD Back APRN, [place] X Location:[facility] Appointment Type:URO Office Visit [facility] Evaluation + Plan note Future Appointments Appointment Date:06/10/2024 03:00:00 PM Scheduled Provider:RAAD Back APRN, [place] X Location:[facility] Appointment Type:URO Office Visit [facility] Evaluation + Plan note Future Appointments Appointment Date:07/01/2024 02:30:00 PM Scheduled Provider:RAAD Back APRN, [place] X Location:[facility] Appointment Type:URO Office Visit [facility] Evaluation note Diagnosis Mixed hyperlipidemia- Primary Paroxysmal atrial fibrillation (Multi) Atrial fibrillation Non-ischemic cardiomyopathy (Multi) Other primary cardiomyopathies Never smoked tobacco BMI 36.0-36.9,adult Hyperlipidemia, unspecified hyperlipidemia type documented in this encounter [facility] Work Phone: Evaluation note* Diagnosis Paroxysmal atrial fibrillation (Multi)- Primary Atrial fibrillation Non-ischemic cardiomyopathy (Multi) Other primary cardiomyopathies Mixed hyperlipidemia Sinus bradycardia Other specified cardiac dysrhythmias High risk medication use Class 2 obesity BMI 35.0-35.9,adult Never smoked tobacco documented in this encounter [facility] Work Phone: Evaluation note* Diagnosis Arthritis of right knee- Primary Acute pain of right knee Chondromalacia, patella, right documented in this encounter [facility]* Diagnosis Arthritis of right knee- Primary Acute pain of right knee Chondromalacia, patella, right documented in this encounter 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- Primary Minimal cognitive impairment Sleep apnea, unspecified type Acquired hypothyroidism Unspecified hypothyroidism Class 2 severe obesity due to excess calories with serious comorbidity and body mass index (BMI) of 37.0 to 37.9 in adult ([facility]) documented [facility] encounter [facility]* Diagnosis Primary hypertension- Primary Unspecified essential hypertension Hyperlipidemia, unspecified hyperlipidemia type Acquired hypothyroidism Unspecified hypothyroidism Osteoarthritis of multiple joints, unspecified osteoarthritis type 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 and body mass index (BMI) of 36.0 to 36.9 in adult documented [facility]* Diagnosis Nonsustained ventricular tachycardia (CMS-HCC)- Primary Non-ischemic cardiomyopathy (CMS-HCC) Other primary cardiomyopathies Paroxysmal atrial fibrillation (CMS-HCC) Atrial fibrillation Primary hypertension Unspecified essential hypertension Need for immunization against influenza Need for prophylactic vaccination and inoculation against influenza 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 In the interim she is done well. She has none of the symptoms of cardiomyopathy that preceded her original diagnosis of heart failure. With guideline directed therapy in the presybeterian of maintenance of sinus rhythm her symptoms [...] merits of diet exercise and weight loss. [facility] [employer] DO Work Phone: History of Present illness [...] the merits of diet and weight loss. [facility] [employer] 250 DO Work Phone: Hospital course Narrative No data available for this section [facility] Hospital Discharge instructions No data available for this section [facility] InstructionsNot on filedocumented in this encounter [...] available for this section [facility] Chief Complaint * I am doing [...] By Contac t Referred To Contact Diagnoses Sleep apnea, unspecified type Procedures Home sleep study Connor Anaya, DO [address], [place] [address] Referral ID Status Reason Start Date Expiration Date V isits Requested Visits Authorized [id number] Pending Review 02/18/2024 02/17/2025 1 1 Specialty Diagnoses / Procedures Referred By Contac t Referred To Contact Diagnoses Paroxysmal atrial fibrillation (Multi) Procedures ECG 12 Lead Nick Richardson MD [address] [facility] [address], [address] [address] Referral ID Status Reason Start Date Expiration Date V isits Requested Visits Authorized [id number] Authorized 03/06/2024 03/06/2025 1 1 Specialty Diagnoses / Procedures Referred By Contac t Referred To Contact Cardiology Diagnoses Non-ischemic cardiomyopathy (Multi) Procedures Follow Up In Cardiology Nick Richardson MD [address] [facility] 2, [address] [address] Carmen Lopez MD [address] [facility] [address], [address] [address] Referral ID Status Reason Start Date Expiration Date V isits Requested Visits Authorized [id number] Authorized 03/06/2024 03/06/2025 1 1 Additional Source Comments INFORMATION SOURCE (unrecogn ized section and content) DATE CREATED AUTHOR 06/26/2022 [facility] DATE CREATED AUTHOR AUTHOR'S ORGANIZ ATION 12/07/2022 [facility] DATE CREATED AUTHOR AUTHOR'S ORGANIZ ATION 12/07/2022 [facility] DATE CREATED AUTHOR AUTHOR'S ORGANIZ ATION 03/09/2023 [facility] DATE CREATED AUTHOR AUTHOR'S ORGANIZ ATION 07/17/2024 [facility] ical Center DATE CREATED AUTHOR AUTHOR'S ORGANIZ ATION 08/20/2024 [facility] DATE CREATED AUTHOR AUTHOR'S ORGANIZ ATION 09/19/2024 [facility] ical Center DATE CREATED AUTHOR AUTHOR'S ORGANIZ ATION 09/25/2024 [facility] DATE CREATED AUTHOR AUTHOR'S ORGANIZ ATION 10/18/2024 [facility] ical Center DATE CREATED AUTHOR AUTHOR'S ORGANIZ ATION 11/10/2024 [facility] dical Specialists EPIC DATE CREATED AUTHOR AUTHOR'S ORGANIZ ATION 11/27/2024 [facility] DATE CREATED AUTHOR AUTHOR'S ORGANIZ ATION 12/14/2024 [facility] Care Team (unrecognized sect ion and content) Drycleaner Relationship Specialty Start Date End Date Connor Anaya DO [address] [address] PCP - General 10/29/19 Drycleaner Relationship Specialty Start Date End Date Connor Anaya DO PCP - General 10/29/19 Drycleaner Relationship Specialty Start Date End Date Connor Anaya MD [address] [place] [address] PCP - General Family Medicine 03/26/24 Drycleaner Relationship Specialty Start Date End Date Connor Anaya MD [address] [place] [address] PCP - General Family Medicine 03/26/24 Drycleaner Relationship Specialty Start Date End Date Connor Anaya MD [address], [place] [address] PCP - General Family Medicine 03/26/24 Drycleaner Relationship Specialty Start Date End Date Connor Anaya MD [address] [place] [address] PCP - General Family Medicine 03/26/24 Drycleaner Relationship Specialty Start Date End Date Connor Anaya DO [address], [place] [address] PCP - General Family Medicine 11/13/22 Desiree Jansen [facility] Nurse - [employer] 07/01/24 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 Relationship Specialty Start Date End Date Connor Anaya DO [address], [place] [address] PCP - General Family Medicine 11/13/22 Yuni Borja [facility] Nurse - [employer] 11/20/24 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 Relationship Specialty Start Date End Date Connor Anaya DO [address] [place] [address] PCP - General Family Medicine 11/13/22 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 Relationship Specialty Start Date End Date Connor Anaya DO [address] [place] [address] PCP - General Family Medicine 11/13/22 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 Relationship Specialty Start Date End Date Connor Anaya DO [address], [place] [address] PCP - General Family Medicine 11/13/22 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 Relationship Specialty Start Date End Date Connor Anaya DO [address], [place] [address] PCP - General Family Medicine 11/13/22 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 Relationship Specialty Start Date End Date Connor Anaya DO [address], [place] [address] PCP - General Family Medicine 11/13/22 Desiree Jansen [facility] Nurse - [employer] 07/01/24 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 Relationship Specialty Start Date End Date Connor Anaya DO [address], [place] [address] PCP - General Family Medicine 11/13/22 Desiree Jansen [facility] Nurse - [employer] 07/01/24 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 Relationship Specialty Start Date End Date Connor Anaya DO [address], [place] [address] PCP - General Family Medicine 11/13/22 Desiree Jansen [facility] Nurse - [employer] 07/01/24 Drycleaner Relationship Specialty Start Date End Date DebbiemileConnor nj DO [address], [place] [address] PCP - General Family Medicine 11/13/22 Desiree Jansen [facility] Nurse - [employer] 07/01/24 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 Relationship Specialty Start Date End Date Connor Anaya DO [address], [place] [address] PCP - General Family Medicine 11/13/22 Desiree Jansen [facility] Nurse - [employer] 07/01/24 Reason for Visit (unrecogniz ed section and content) Reason Comments Follow-up 2mo Specialty Diagnoses / Procedures Referred By Contac t Referred To Contact Cardiology Diagnoses Paroxysmal atrial fibrillation (Multi) Procedures Follow Up In Cardiology Nick Richardson MD [address] [place] [address] [address], [address] [address] Referral ID Status Reason Start Date Expiration Date V isits Requested Visits Authorized [id number] Authorized 12/24/2023 12/23/2024 1 1 Reason Comments Follow-up 5m Specialty Diagnoses / Procedures Referred By Contac t Referred To Contact Cardiology Diagnoses Non-ischemic cardiomyopathy (Multi) Procedures Follow Up In Cardiology [facility] [address] [place] [address] 2, [address] [address] Phone: tel: fax: Referral ID Status Reason Start Date Expiration Date V isits Requested Visits Authorized [id number] Authorized 03/06/2024 03/06/2025 1 1 Reason Comments Pain Reason Comments Pain Reason Onset Date Comments Med Refill 11/14/2024 Reason Comments maw Reason Comments Med Refill Reason Comments Follow-up Reason Onset Date Comments Sleep Lab 02/20/2024 HST Reason Comments Follow-up Reason Onset Date Comments critical EKG 09/28/2024 Reason Comments TCM DEC 1-3 [facility] FOR RECORDS PERTAINING TO PATIENTS WHO ARE [...] BE BASED ON THE PRIMARY CLINICAL RECORDS. [facility] [employer] [facility]. provides no warranty or guarantee of the accuracy or completeness of information in this document.
[2025-01-02 14:43] LABS: Basophils Percent Auto 0.6 % (0.2-2.0); Eosinophils Absolute Auto 0.1 10^3/uL (0.0-0.7); Eosinophils Percent Auto 1.2 % (0.9-7.0); Hematocrit 30.4 % (36.0-48.0); Hemoglobin 8.8 g/dL (12.0-16.0); Immature Granulocytes Abs Auto 0.03 10^3/uL (0.00-0.03); Immature Granulocytes Pct Auto 0.5 % (0.0-0.5); Lymphocytes Absolute Auto 1.3 10^3/uL (1.2-3.8); Lymphocytes Percent Auto 19.2 % (20.5-60.0); Mean Corpuscular HGB Conc 28.9 g/dL (29.9-35.2); Mean Corpuscular Hemoglobin 20.5 pg (26.7-34.0); Mean Corpuscular Volume 70.7 fL (81.0-99.0); Mean Platelet Volume 9.4 fL (9.5-13.5); Monocytes Absolute Auto 0.4 10^3/uL (0.3-0.8); Monocytes Percent Auto 5.7 % (1.7-12.0); Neutrophils Absolute Auto 4.8 10^3/uL (1.4-6.5); Neutrophils Percent Auto 72.8 % (43.0-75.0); Platelet Count 229 10^3/uL (150-450); Red Cell Distribution Width 19.2 % (11.0-15.0); White Blood Count 6.5 10^3/uL (4.0-11.0)
[2025-01-02 14:49] LABS: Alanine Aminotransferase 16 U/L (14-59); Albumin Globulin Ratio 0.9; Albumin Level 3.3 g/dL (3.4-5.0); Alkaline Phosphatase 126 U/L (46-116); Anion Gap 11.4; Aspartate Amino Transferase 14 U/L (15-37); BUN Creatinine Ratio 15.1; Bilirubin Total 0.4 mg/dL (0.2-1.0); Calcium 9.6 mg/dL (8.5-10.1); Carbon Dioxide 27.5 mmol/L (21.0-32.0); Chloride 105 mmol/L (98-107); Estimated GFR (African America >60 (>=60 mL/min/1.73m^2); Estimated GFR (Non-African Ame 59 (>=60 mL/min/1.73m^2); Globulin 3.8 g/dL; Glucose 109 mg/dL (74-106); Potassium 3.9 mmol/L (3.5-5.1); Sodium 140 mmol/L (136-145); Total Protein 7.1 g/dL (6.4-8.2)
[2025-01-02 14:50] LABS: INR 1.13; Prothrombin Time 11.8 sec (9.0-11.6)
[2025-01-02 14:57] LABS: Magnesium 2.1 mg/dL (1.8-2.4); Troponin I High Sensitivity 20.5 pg/mL (4.0-51.3)
--- NOTE | 2025-01-02 15:48 | PC.NURSE ---
meal tray ordered for pt at this time.
[2025-01-02 16:13] LABS: Troponin I High Sensitivity 19.5 pg/mL (4.0-51.3)
--- NOTE | 2025-01-02 16:14 | PC.NURSE ---
pt given meal tray. pt denies needs of assistance. pt aware of pending admission at this time. daughter at bedside and denies current needs.
--- NOTE | 2025-01-02 16:58 | PC.NURSE ---
pt transported to [facility] for admission. pt and daughter deny needs prior to admission. this RN transported pt to floor, gave bedside report to Bharti MERCHANT, all questions answered.
--- OUTSIDE RECORDS SUMMARY | 2025-01-02 17:04 | XMS_ITS | CCD ---
Author Organization [facility] Informat ion Partnership [facility] Care Team Providers Care Cashier General Name Role Phone Connor Anaya Unavailable Unavailable Unavailable CONNOR ANAYA Primary Care Physician [phone] Debra GOSS, Nick Blackman Attending Tonie dexter Richardson II, Nick Blackman Referring Unav ailable [place], Connor Sow Primary Care Unavailab le Jaclyn, Connor Sow Primary Care Unavailab le [facility] GOSS, Nick Blackman Attending [facility] Debra GOSS, Nick Blackman Referring Unav ailable [facility] Connor Torito Primary Care Unavailab [...] WILLARD Pittman Admgabriela Unavailable FURLONG, DR CONNOR Marienlli Primary Care Unavailable WEST, DR WILLARD Pittman Attending Unavailable Zieber, Kyle Consulting Unavailable HASSAN ., DR BLACKMAN Admitting Unavailable HASSAN ., DR BLACKMAN Attending Unavailable HASSAN ., DR BLACKMAN Consulting Unavailable FURLONG, DR CNONOR Marinelli Primary Care Unavailable Zieber, Kyle Consulting [...] Unavailable WEST, DR WILLARD iPttman Attending Unavailable Zieber, Kyle Consulting Unavailable WEST, [...] FURLONG, DR CONNOR Marinelli Primary Care Unavailable HICKORY GROVE, DR WILLARD Pittman Consulting Unavailable WEST, DR WILLARD Pittman Admitting Unavailable FURLONG, DR CONNOR Marinelli Primary Care Unavailable WEST, DR WILLARD Pittman Attending Unavailable MISC, DOCTOR Admitting Unavailable MISC, DOCTOR Attending Unavailable MISC, DOCTOR Consulting Unavailable FURLONG, DR CONNOR Marinelli Primary Care Unavailable [facility] DO Connorwandy Sow Primary Care [...] Unavailable FURNG, CONNOR Marinelli Primary Care Unavailable [facility] DO Connorwandy Sow Primary Care Provider Connor Anaya MD Primary Care Provider Radha Back Attending Unavailable Orzech, Radha X Admitting Unavailable Orzech, Radha Lopes Attending Unavailable Yehuda HASSAN Attending Unavailable NICK RICHARDSON Attending Unavailable FURNG, CONNOR SOW Primary Care Unavailab NICK Rousseau Attending Unavailable FURNG, CONNOR SOW Primary Care Unavailab NICK Rousseau Referring Unavailable CARMEN LOPEZ Attending Unavailable NICK RICHARSDON Referring Unavailable FURNG, CONNOR SOW Primary Care Unavailab Yehuda Vasquez Attending Unavailable JR. CHAPO, LESVIA Iraheta Attending Unavaila analisa MCCLAIN JR., LESVIA Iraheta Referring Unavaila NANY Akbar Attending Unavailable NANY JAIN Referring Unavailable JR. CHAPO, LESVIA Iraheta Attending Unavaila ble [place] Connor ESCALANTE Primary Care Provider JACLYN, CONNOR Marinelli Referring Unavailable FURLONG, CONNOR [...] of skin (disorder), Unknown, Rash [facility] (20 sources) Sulfonamides (Antibiotic); Translations: [Sulfa Drugs] Allergy to drug (finding) Eruption of skin (disorder) [facility] [place] (20 sources) corn extract; Translations: [[place]] Drug Allergy 02-18-20 24 Unknown (qualifier value), Other (See Comments) [facility] (16 sources) Dog; Translations: [Dogs] Allergy to substance Unknown (qualifier value) [facility] (20 sources) Mold Extract; Translations: [mold] Drug Allergy 11-08-19 18 Unknown (qualifier value), Other (See Comments) [facility] (16 sources) Milk Products; Translations: [Milk Products] Food allergy Unknown (qualifier value) [facility] (16 sources) house dust mite allergen extract; Translations: [house dust mite allergen extra] Allergy to substance Unknown (qualifier value) [facility] (2 sources) Ciprofloxacin Drug Allergy 01-31-20 14 [facility] (1 source) house dust allergenic extract Drug Allergy [facility] (2 sources) Lactose Drug Allergy [facility] (1 source) Sulfonamides (Antibiotic) Drug allergy (disorder) [facility] (20 sources) Sulfonamides (Antibiotic); Translations: [SULFA (SULFONAMIDE ANTIBIOTICS)] Drug Intolerance 06-21-20 23 Unknown, Rash [facility] (20 sources) Sulfamethoxazole / Trimethoprim; Translations: [SULFAMETHOXAZOLE-T RIMETHOPRIM] Drug Allergy 11-13-19 23 Rash [facility] (5 sources) [place] Oil; Translations: [CORN OIL] Drug Allergy 11-08-19 Diarrhea, Other [facility] (3 sources) Cow milk Propensity to adverse reactions 11-08-19 Other [facility] (3 sources) House dust mite Allergy to substance 10-30-19 [facility] (3 sources) Mold Extract Drug Allergy 11-08-19 Other [facility] (2 sources) Milk; Translations: [MILK] Propensity [...] 1 capsule by mouth in the morning pscqu-ii-8-pkz-exs-dgwojhj-ast (KRILL OIL) [phone] mg capsule Take 1 capsule by mouth [...] adjustment) Start: 07-29-2019 take 1 capsule by [facility] once daily levothyroxine 137 mcg [...] ADULT 50+ PO) as directed Orally Active kpzarzms-jye-oper-FA -vit K-lut (Centrum Silver Women) 8 mg iron-400 mcg-50 mcg tablet (2 sources) take 1 tablet by mouth once daily omhsbyzt-nxk-qvkl-FA -vit K-lut (Centrum Silver Women) 8 mg iron-400 mcg-50 mcg tablet Take 1 tablet by mouth once daily. Active xmvgnfor-que-vhts-FA -vit K-lut (CENTRUM SILVER WOMEN) 8 mg iron-400 mcg-50 mcg tablet (14 sources) take 1 tablet by mouth once in the morning jwugdnko-yin-orzv-FA -vit K-lut (CENTRUM SILVER WOMEN) 8 mg iron-400 mcg-50 mcg tablet Take 1 tablet by mouth in the morning. Active Towanda-3 Fatty Acids (OMEGA-3 FISH OIL PO) (6 sources) Towanda-3 Fatty Ac ids (OMEGA-3 FISH OIL PO) Take by mouth Active omega-3 fatty acids-fish oil (One-Per-Day Towanda-3) 684-1,200 mg capsule (2 sources) omega-3 fatty acids-fish oil (One-Per-Day Towanda-3) 684-1,200 mg capsule Take 1 capsule (1,200 [...] procedure, # 2 cap(s), Refills(s) 0, Pharmacy: [facility], 165, cm, 06/30/22 11:48:00 EDT, Height/Length [...] BID, # 60 tab(s), Refills(s) 11, Pharmacy: [facility], 165, cm, 10/26/23 8:42:00 EST, Height/Length Dosing, 97.5, kg, 10/26/23 8:42:00 EST, Weight Dosing Start Date: 10/26/23 Status: Ordered 1 ml methylPREDNISolone acetate 40 mg/ml injection (4 sources) Corticosteroid Start: 2023 End: 2023 methylPREDNISolone acetate (DEPO-Medrol) injection 40 mg Start: 09-02-2024 End: 09-02-2024 40 mg, Intra-articular, Once PRN Procedure, Starting on Sun09/02/24 at 1414, For 1 dose Towanda 3 CAPS (7 sources) Towanda 3 CAPS BASSAM E DIRECTED. 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 Also arrange for her to be seen by Dr. Jones as soon as possible. The please add Farxiga 10 mg daily and Aldactone 25 mg daily to her current medical regimen and check BMP in 1 week. Spoke with patient and she agrees to have echo at [facility]. I told her I would send the 2 RX's to her pharmacy and call them to see if they could take free Farxiga voucher over the phone to save her a trip to the office. She will have labs 1 week after starting meds. BMP faxed to [facility]. Follow up made with Dr. Jones for 02/03/2025. I advised patient that we would call her with result and that she didn't have to wait until 02/03 for results. She verbalized understanding. Normal [facility] CREATININE, SERUMon 11-27-19 25 Creatinine [Mass/Vol] 0.88 mg/dL Normal 0.60-1.20 [facility] Comment on above: Performed By: #### L [id number] #### [facility] (BEAKER) [address] [place] [address] GLOMERULAR FILTRATION RATE ML/MIN/1.73 SQ M.PREDICTED 68.9 mL/min/1.73m*2 Normal >60.0 [facility] Comment on above: Result Comment: The [facility]???s estimated glomerular filtration rate (eGFR) will no [...] individuals. Performed By: #### L [id number] #### [facility] ([facility]) [address] [place] [address] CTA HEART CORONARY W IV CONT RAST [...] Sher MD. Not Vldtd Invalid Interpretation Code [facility] Labon 11-27-2024 Lab [id number] Miky Fuentes 1950 F Date Provider Department Center 11/27/2024 2245-[facility] OPD LAB RESOURCE [facility] [place] [facility] No family history on file Normal [facility] Office Visiton 10-17-2024 Follow-up visit [id number] Miky Fuentes 1950 F Date Provider Department Center 10/17/2024 44952-[facility]ILUL [facility] No family history on file Level of Service:83979 NM OFFICE/OUTPATIENT NEW MODERATE MDM 45 MINUTES Normal [facility] No Panel Informationon 09-02 VIC Avila 09/02/2024 [...] discussed. Consent was given by the patient. [facility] XR Knee - right 1 or 2 [...] on bone articulation and patella femoral joint [facility] Radiology Study observation (narrative) [facility] COMPREHENSIVE METABOLIC PANE Good 08-18-2024 Albumin [Mass/Vol] 3.9 g/dL Normal 3.2-5.3 [facility] Comment on above: Performed By: #### T CECYR, 80340-9, CMP #### [facility] ([id number]) [address], [address] [place] [address] ALP [Catalytic activity/Vol] 114 U/L Normal 39-130 [facility] Comment on above: Performed By: #### T HYR, 68358-5, CMP #### [facility] ([id number]) [address], [address] [place] [address] ALT [Catalytic activity/Vol] 15 U/L Normal 0-31 [facility] Comment on above: Performed By: #### T CECYR, 36338-9, CMP #### [facility] ([id number]) [address], [address] [place] [address] Anion gap [Moles/Vol] 8 mmol/L Normal 5-15 [facility] Comment on above: Performed By: #### Min KABA, 31684-4, CMP #### [facility] ([id number]) [address], [address] [place] [address] AST [Catalytic activity/Vol] 20 U/L Normal 0-41 [facility] Comment on above: Performed By: #### Min KABA, 24873-3, CMP #### [facility] ([id number]) [address], [address] [place] [address] Bilirubin [Mass/Vol] 0.5 mg/dL Normal 0.3-1.2 [facility] Comment on above: Performed By: #### Min KABA 43436-9, CMP #### [facility] ([id number]) [address], [address] [place] [address] Calcium [Mass/Vol] 10.4 mg/dL Normal 8.5-10.5 [facility] Comment on above: Performed By: #### Min KABA, 48492-8, CMP #### [facility] ([id number]) [address], [address] [place] [address] Chloride [Moles/Vol] 103 mmol/L Normal 98-109 [facility] Comment on above: Performed By: #### Min KABA, 64175-2, CMP #### [facility] ([id number]) [address], [address] [place] [address] CO2 [Moles/Vol] 27 mmol/L Normal 22-32 [facility] Comment on above: Performed By: #### Min KABA, 73647-8, CMP #### [facility] ([id number]) [address], [address] [place] [address] Creatinine [Mass/Vol] 0.80 mg/dL Normal 0.40-1.00 [facility] Comment on above: Result Comment: METH OD TRACEABLE TO IDMS STANDARD Performed By: #### Min KABA 76979-0, CMP #### [facility] ([id number]) [address], [address] [place] [address] GFR/1.73 sq M.predicted among non-blacks MDRD (S/P/Bld) [Vol rate/Area] 77 mL/min/{1.73_m2} Normal >59 [facility] Comment on above: Result Comment: Reported eGFR is based on the CKD-EPI 2020 equation that does not use a race coefficient. Performed By: #### Min KABA 61234-3, CMP #### [facility] ([id number]) [address], [address] [place] [address] Glucose [Mass/Vol] 99 mg/dL Normal 65-99 [facility] Comment on above: Performed By: #### Min KABA 16216-5, CMP #### [facility] ([id number]) [address], [address] [place] [address] Potassium [Moles/Vol] 4.0 mmol/L Normal 3.5-5.0 [facility] Comment on above: Performed By: #### Min KABA 41859-2, CMP #### [facility] ([id number]) [address], [address] [place] [address] Protein [Mass/Vol] 7.0 g/dL Normal 6.0-8.0 [facility] Comment on above: Performed By: #### Min KABA 75776-2, CMP #### [facility] ([id number]) [address], [address] [place] [address] Sodium [Moles/Vol] 138 mmol/L Normal 134-146 [facility] Comment on above: Performed By: #### Min KABA 21897-9, CMP #### [facility] ([id number]) [address], [address] [place] [address] Urea nitrogen [Mass/Vol] 18 mg/dL Normal 5-27 [facility] Comment on above: Performed By: #### T HYR, 79613-2, CMP #### [facility] ([id number]) [address], [address] [place] [address] Comprehensive metabolic pane good 08-18-2024 Albumin [Mass/Vol] 3.9 g/dL 3.2 - 5.3 g/dL [facility] ALP [Catalytic activity/Vol] 114 U/L 39 - 130 U/L [facility] ALT No additional P-5'-P [Catalytic activity/Vol] 15 U/L 0 - 31 U/L [facility] Anion gap [Moles/Vol] 8 mmol/L 5 - 15 mmol/L [facility] AST [Catalytic activity/Vol] 20 U/L 0 - 41 U/L [facility] Bilirubin [Mass/Vol] 0.5 mg/dL 0.3 - 1.2 mg/dL [facility] Calcium [Mass/Vol] 10.4 mg/dL 8.5 - 10.5 mg/dL [facility] Chloride [Moles/Vol] 103 mmol/L 98 - 109 mmol/L [facility] CO2 [Moles/Vol] 27 mmol/L 22 - 32 mmol/L [facility] Creatinine [Mass/Vol] 0.8 mg/dL 0.40 - 1.00 mg/dL [facility] Comment on above: METHOD TRACEABLE TO IDKY STANDARD eGFR (CKD-EPI)non-race dependent 77 - PINF [facility] Comment on above: Reported eGFR is based on the CKD-EPI 2020 equation that does not use a race coefficient. Glucose [Mass/Vol] 99 mg/dL 65 - 99 mg/dL [facility] Potassium [Moles/Vol] 4 mmol/L 3.5 - 5.0 mmol/L [facility] Protein [Mass/Vol] 7 g/dL 6.0 - 8.0 g/dL [facility] Sodium [Moles/Vol] 138 mmol/L 134 - 146 mmol/L [facility] Urea nitrogen [Mass/Vol] 18 mg/dL 5 - 27 mg/dL [facility] Lipid 1996 panelon 4 Cholesterol [Mass/Vol] 187 mg/dL 150 - 200 mg/dL [facility] Cholesterol in HDL [Mass/Vol] 66 mg/dL 39 - PINF mg/dL [facility] Comment on above: HDL <40 mg/dL - High Risk HDL > or = 40mg/dL- Desirable HDL >60 mg/dL - Negative Risk Cholesterol in LDL [Mass/Vol] 107 mg/dL NINF - 130 mg/dL [facility] Comment on above: LDL <100 mg/dL - Desirable LDL >160 mg/dL - High Risk Cholesterol in VLDL [Mass/Vol] 14 mg/dL 0 - 30 mg/dL [facility] Cholesterol.total /Cholesterol in HDL [Mass ratio] 2.8 {ratio} 1.0 - 5.0 [facility] Triglyceride [Mass/Vol] 68 mg/dL 27 - 150 mg/dL [facility] Cholesterol [Mass/Vol] 187 mg/dL Normal 150-200 [facility] Comment on above: Performed By: #### T R, 44479-2, CMP #### [facility] ([id number]) [address], [address] [place] [address] Cholesterol in HDL [Mass/Vol] 66 mg/dL Normal >39 [facility] Comment on above: Result Comment: HDL <40 mg/dL - High Risk HDL > or = 40mg/dL- Desirable HDL >60 mg/dL - Negative Risk Performed By: #### Min KABA, 23153-7, CMP #### [facility] ([id number]) [address], [facility] [address] [place] [address] Cholesterol in LDL [Mass/Vol] 107 mg/dL Normal <130 [facility] Comment on above: Result Comment: LDL <100 mg/dL - Desirable LDL >160 mg/dL - High Risk Performed By: #### Min KABA, 98946-9, CMP #### [facility] ([id number]) [address], [address] [place] [address] Cholesterol in VLDL [Mass/Vol] 14 mg/dL Normal 0-30 [facility] Comment on above: Performed By: #### Min KABA, 44604-7, CMP #### [facility] ([id number]) [address], [address] [place] [address] CHOLESTEROL:HDL 2.8 Normal 1.0-5.0 [facility] Comment on above: Performed By: #### Min KABA, 76859-2, CMP #### [facility] ([id number]) [address], [facility] [address] [place] [address] Triglyceride [Mass/Vol] 68 mg/dL Normal 27-150 [facility] Comment on above: Performed By: #### Min KABA, 14058-8, CMP #### [facility] ([id number]) [address], [facility] [address] [place] [address] No Panel Informationon 08-18 [facility] THYROID PROFILEon 08-18-2024 Free T4 [Mass/Vol] 1.33 ng/dL Normal 0.61-1.60 [facility] Comment on above: Performed By: #### Min KABA, 65515-7, CMP #### [facility] ([id number]) [address], [address] [place] [address] TSH 0.35 uIU/mL Low 0.49-4.67 [facility] Comment on above: Performed By: #### T HYR, 79742-8, CMP #### [facility] ([id number]) [address], [address] [place] [address] Thyroid profile includes TSH FT4on 08-18-2024 Free T4 [Mass/Vol] 1.33 ng/dL 0.61 - 1.60 ng/dL [facility] Interpretation and review of laboratory results Abnormal [facility] TSH Qn 0.35 m[IU]/L Low [facility] UroVysion Fish and Urine Cyt o ([facility])on 08-05-2024 UVFISH & UC Diagnosis Info Invalid Interpretation Code [facility] Comment on above: Result Comment: A:Ur [...] with cytology and cystoscopy results. * CPT: 04388, 68792. MicroScopic Description - MicroScopic Description - Electronically signed by : on: 08/05/2024 16:40:06 Performed By: #### 1 [id number] #### [facility] [address] [place] [address] U[facility] Fish and Urine Cyt o ([facility])on 07-29-2024 [facility] Method of Extraction Voided Normal [facility] Comment on above: Performed By: #### 1 [id number] #### [facility] [address] [place] [address] [facility] Number of Jars 1 Invalid Interpretation Code [facility] Comment on above: Performed By: #### 1 [id number] #### [facility] [address] [place] [address] [facility] Specimen Urine Normal [facility] Comment on above: Performed By: #### 1 [id number] #### [facility] [address] [place] [address] [facility] Type of Service Technical Only Normal [facility] Comment on above: Performed By: #### 1 [id number] #### [facility] [address] [place] [address] Urine Cytology ([facility])on 07-18-2024 Microscopic exam Cytology (U) [Interp] Diagnosis Info Invalid Interpretation Code [facility] Comment on above: Result Comment: A:Ur [...] on: 07/18/2024 12:47:49 Performed By: #### 1 [id number] #### [facility] [address] [place] [address] Ambulatory Visit Summaryon 07-15-2024 Ambulatory Visit Summary [...] When: Comments: pending review of imaging Where: [address] [place] [address]- Medications What How Much When Instructions Unchanged [...] prescribing physician if questions or concerns Allergies [place] (Unknown) Dogs (Unknown) Milk Products (Unknown) Mold [...] the b (more content not included)... Normal [facility] Urine Cytology ([facility])on 07-15-2024 Method of Extraction Voided Normal [facility] Comment on above: Performed By: #### 1 [id number] #### [facility] [address] [place] [address] Number of Jars 1 Invalid Interpretation Code [facility] Comment on above: Performed By: #### 1 [id number] #### [facility] [address] [place] [address] Specimen Clean Catch Normal [facility] Comment on above: Performed By: #### 1 [id number] #### [facility] [address] [place] [address] Type of Service Technical Only Normal [facility] Comment on above: Performed By: #### 1 [id number] #### [facility] [address] [place] [address] Urology Office/Clinic Noteon 07-15-2024 Urology Office/Clinic Note [...] with voice recognition artificial intelligence software, specifically [employer], [place] [employer] Championship and or [employer]. Substitutions may have occurred due to the [...] Urnls Dip Stick Auto w/o Microscopy POC 02059 Follow-up With When Contact Information MO HAYDEN, Yehuda Haddad, URL [address] [place] [address]- Additional Instructions: pending review of imaging Patient Education Kidney Stones, Jrzy-tc-Jizz Hematuria, Adult Problem List/Past Medical History Ongoing [...] bile duct (more content not included)... Normal [facility] Comment on above: Result Comment: Elec tronically Signed By: RAAD Back APRN, Radha Lopes\.br\Date and Time Signed: 07/15/24 15:39 EDT ECG 12 Leadon 03-06-2024 Sinus bradycardia with occasional PVCs Low voltage QRS Nonspecific ST change QTc 391 ms [facility] Work Phone: BASIC METABOLIC PANLon 02-17 Anion gap [Moles/Vol] 6 mmol/L Normal 5-15 [facility] Comment on above: Performed By: #### B MP, THYR #### [facility] ([id number]) [address], [address] [place] [address] Calcium [Mass/Vol] 9.8 mg/dL Normal 8.5-10.5 [facility] Comment on above: Performed By: #### B MP, THYR #### [facility] ([id number]) [address], [address] [place] [address] Chloride [Moles/Vol] 106 mmol/L Normal 98-109 [facility] Comment on above: Performed By: #### Win TAM, THYR #### [facility] ([id number]) [address] [address] [place] [address] CO2 [Moles/Vol] 31 mmol/L Normal 22-32 [facility] Comment on above: Performed By: #### Win TAM, THYR #### [facility] ([id number]) [address] [address] [place] [address] Creatinine [Mass/Vol] 0.90 mg/dL Normal 0.40-1.00 [facility] Comment on above: Result Comment: METH OD TRACEABLE TO IDMS STANDARD Performed By: #### Win TAM, THYR #### [facility] ([id number]) [address] [place] [address] GFR/1.73 sq M.predicted among non-blacks MDRD (S/P/Bld) [Vol rate/Area] 68 mL/min/{1.73_m2} Normal >59 [facility] Comment on above: Result Comment: Reported eGFR is based on the CKD-EPI 2020 equation that does not use a race coefficient. Performed By: #### Win TAM, THYR #### [facility] ([id number]) [address] [place] [address] Glucose [Mass/Vol] 105 mg/dL High 65-99 [facility] Comment on above: Performed By: #### Win TAM, THYR #### [facility] ([id number]) [address] [place] [address] Potassium [Moles/Vol] 4.2 mmol/L Normal 3.5-5.0 [facility] Comment on above: Performed By: #### Win TAM, THYR #### [facility] ([id number]) [address] [place] [address] Sodium [Moles/Vol] 143 mmol/L Normal 134-146 [facility] Comment on above: Performed By: #### B YONATAN, THYR #### [facility] ([id number]) [address] [place] [address] Urea nitrogen [Mass/Vol] 19 mg/dL Normal 5-27 [facility] Comment on above: Performed By: #### B YONATAN, THYR #### [facility] ([id number]) [address] [place] [address] Basic Metabolic Panelon 01-28 Anion gap [Moles/Vol] 6 mmol/L 5 - 15 mmol/L [facility] Calcium [Mass/Vol] 9.8 mg/dL 8.5 - 10.5 mg/dL [facility] Chloride [Moles/Vol] 106 mmol/L 98 - 109 mmol/L [facility] CO2 [Moles/Vol] 31 mmol/L 22 - 32 mmol/L [facility] Creatinine [Mass/Vol] 0.90 mg/dL 0.40 - 1.00 mg/dL [facility] Comment on above: METHOD TRACEABLE TO IDKY STANDARD eGFR (CKD-EPI)non-race dependent 68 - PINF [facility] Comment on above: Reported eGFR is based on the CKD-EPI 2020 equation that does not use a race coefficient. Glucose [Mass/Vol] 105 mg/dL High 65 - 99 mg/dL [facility] Interpretation and review of laboratory results Abnormal [facility] Potassium [Moles/Vol] 4.2 mmol/L 3.5 - 5.0 mmol/L [facility] Sodium [Moles/Vol] 143 mmol/L 134 - 146 mmol/L [facility] Urea nitrogen [Mass/Vol] 19 mg/dL 5 - 27 mg/dL [facility] THYROID PROFILEon 02-18-2024 Free T4 [Mass/Vol] 1.92 ng/dL High 0.61-1.60 [facility] Comment on above: Performed By: #### B YONATAN, THYR #### [facility] ([id number]) [address] [place] [address] TSH 0.58 uIU/mL Normal 0.49-4.67 [facility] Comment on above: Performed By: #### B MP, THYR #### [facility] ([id number]) [address] [place] [address] Thyroid profile includes TSH FT4on 02-18-2024 Free T4 [Mass/Vol] 1.92 ng/dL High 0.61 - 1.60 ng/dL [facility] Interpretation and review of laboratory results Abnormal [facility] TSH Qn 0.58 m[IU]/L [facility] Ambulatory Visit Summaryon 1 Ambulatory Visit Summary SUNDEEP FUENTESN :1950 Visit Date:10/26/2023 Ambulatory Visit Instructions Your Diagnosis Ureteral stone with hydronephrosis Kidney stone Tests Performed Urnls Dip Stick Auto w/o Microscopy POC 71156 Your Care Team Attending Physician - Yehuda [...] AM EST With: Where: [facility] Normal [address] [place] [address] [place] [address]- \.br\ You Need to Schedule the Following Appointments\.br\ Follow Up with MO HAYDEN, Yehuda Haddad, GENEVIEVEL When: \.br\ Where:\.br\ [facility]\.br\ [place] [address]-\.br\ Medications\.br\ What How Much When Instructions\.br\ New potassium bicarbonate (K-Effervescent 25 mEq oral tablet, effervescent) 1 Tablets By Mouth 2 times a day Refills: 11 Pickup at [facility]\.br\ Unchanged allopurinol (allopurinol 300 mg Tab) [...] if questions or concerns \.br\ Pharmacy Information\.br\ [facility]: [address] [place] [id number] [phone]\.br\ \.br\ What How Much When Why Comments\.br\ Stop Taking tamsulosin (Flomax 0.4 mg Cap) 1 Capsules By Mouth Every day Right flank pain Kidney stones Gross hematuria\.br\ Test Results\.br\ Urnls Dip Stick Auto w/o Microscopy POC 87347 (10/26/2023)\.br\ Bilirubin Urine Dipstick - Negative\.br\ Blood Urine Dipstick - 3+ Large\.br\ Glucose Urine Dipstick - Negative\.br\ Ketones Urine Dipstick - Negative\.br\ Leukocytes Urine Dipstick - Negative\.br\ Nitrite Urine Dipstick - Negative\.br\ Protein Urine Dipstick - 2+ (100 mg/dl)\.br\ Specific [place] Urine Dipstick - 1.025\.br\ Urine Appearance Urine Dipstick - Slightly cloudy\.br\ Urine Color Urine Dipstick - Yellow\.br\ Urobilinogen Urine Dipstick - Normal 0.2-1 EU/dl\.br\ pH Urine Dipstick - 5\.br\ Allergies\.br\ [place] (Unknown)\.br\ Dogs (Unknown)\.br\ Milk Products (Unknown)\.br\ Mold [...] Spinach (cooked), rhubarb, beets, sweet potatoes, and Algerian chard. ? Peanuts. ? Potato chips, belarusian fries, and baked potatoes with skin on. ? Nuts and nut products. ? Chocolate. ? If you regularly take a diuretic medicine, make sure to eat at least 1 or 2 servings of fruits or vegetables that are high in potassium each day. These include: ? Avocado. ? Banana. ? Pine, prune, carrot, or tomato juice. ? Baked [...] fish oil, or vitamin B6. ? Take rztn-oox-gpvtani and prescription medicines only as told by your health care provider. These include supplements. What foods sh (more content not included)... Normal [facility] RAD - MISCon 10-26-2023 [facility] [id number]#1 .00TIFF Normal [facility] [id number]#1 .00TIFF [facility] Urology Office/Clinic Noteon 10-26-2023 Urology Office/Clinic Note Chief Complaint CT Review HPI Staff 2 wk f/u with KUB. Saw DAXA at prior OV. Previous Dx: R flank pain, kidney stones, gross hematuria. S/p ESWL 11/18/20. CT AP wo con done 10/11/23 at [facility].Was given Tamsulosin, however stopped taking after a [...] Information MO HAYDEN, Yehuda Haddad, URL [address] [place] [address]- Additional Instructions: 6 months Patient Education Dietary [...] joint sup (more content not included)... Normal [facility] Comment on above: Result Comment: Elec tronically Signed By: Yehuda HASSAN MD\.br\Date and Time Signed: 10/26/23 09:11 EST\.br\Electronically Co-Signed By: Chantal Bishop\.br\Date and Time Co-Signed: 10/26/23 09:09 EST RAD - CT Reporton 10-15-2023 RAD - CT Report [id number]# 1.00TIFF Normal [facility] RAD - CT Report [id number]#1 .00TIFF Normal [facility] RAD - MISCon 10-15-2023 RAD - MISC [id number]#1 .00TIFF [facility] RAD - MISC [id number]#1 .00TIFF [facility] Ambulatory Visit Summaryon 1 12-10-2022 Ambulatory Visit Summary MIKY FUENTES :1950 Visit Date:10/09/2023 Ambulatory Visit Instructions Your Diagnosis Gross hematuria Right flank pain Tests Performed Urnls Dip Stick Auto w/o Microscopy POC 18656 Your Care Team Attending Physician - DORA [...] Urnls Dip Stick Auto w/o Microscopy POC 69055 (10/09/2023) Bilirubin Urine Dipstick - Negative Blood Urine Dipstick - 3+ Large Glucose Urine Dipstick - Negative Ketones Urine Dipstick - Negative Leukocytes Urine Dipstick - Negative Nitrite Urine Dipstick - Negative Protein Urine Dipstick - 3+ (300 mg/dl) Specific [place] Urine Dipstick - >=1.030 Urine Appearance Urine Dipstick - Clear Urine Color Urine Dipstick - Yellow Urobilinogen Urine Dipstick - Normal 0.2-1 EU/dl pH Urine Dipstick - 5.5 Allergies [place] (Unknown) Dogs (Unknown) Milk Products (Unknown) Mold [...] for choosing us for your care. Normal [facility] Patient Educationon 10-09-20 Patient Education Urology [...] these instructions at home: Medicines ? Take cafe-xcx-oyoczcs and prescription medicines only as told by [...] the blood stops without treatment. ? Take slnb-vsw-swevltj and prescription medicines only as told by your health care provider. ? Drink enough fluid to keep your urine pale yellow. This information is not intended to replace advice given to you by your health care provider. Make sure you discuss any questions you have with your health care provider. Document Revised: 06/15/2021 Document Reviewed: 06/15/2021 [employer] Patient Education ? 2022 [place]. Normal [facility] Urology Office/Clinic Noteon 10-09-2023 Urology Office/Clinic [...] Daily, # 30 cap(s), Refills(s) 0, Pharmacy: [facility], 165, cm, 10/09/23 15:24:00 EST, Height/Length Dosing, 113, kg, 10/09/23 15:24:00 EST, Weight Dosing CT Abdomen w/o Contrast E&M of Est. Patient Moderate 30-39 Min 00656 2. Kidney stones (N20.0: Calculus of kidney) see #1 KUB from this spring showed several medium (6-7mm) R renal stones has had multiple lithotripsy in past Ordered: tamsulosin, 0.4 mg = 1 cap(s), Oral, Daily, # 30 cap(s), Refills(s) 0, Pharmacy: [facility], 165, cm, 10/09/23 15:24:00 EST, Height/Length Dosing, 113, kg, 10/09/23 15:24:00 EST, Weight Dosing CT Abdomen w/o Contrast E&M of Est. Patient Moderate 30-39 Min 99204 3. Gross hematuria (R31.0: Gross hematuria) see #1 Ordered: tamsulosin, 0.4 mg = 1 cap(s), Oral, Daily, # 30 cap(s), Refills(s) 0, Pharmacy: [facility], 165, cm, 10/09/23 15:24:00 EST, Height/Length Dosing, 113, kg, 10/09/23 15:24:00 EST, Weight Dosing CT Abdomen w/o Contrast E&M of Est. Patient Moderate 30-39 Min 91608 Urnls Dip Stick Auto w/o Microscopy POC 99653 Follow-up With When Contact Information DORA ALCAZAR PA-C, URL [address] [facility] [place] [address] Business (1) Additional Instructions: pending [...] Oral, B (more content not included)... Normal [facility] Comment on above: Result Comment: Elec tronically Signed By: DORA ALCAZAR PA-C\.br\Date and Time Signed: 10/09/23 15:49 EST CREATININEon 03-05-2023 Creatinine [Mass/Vol] 1.16 mg/dL Critically high 0.55-1.02 [facility] Comment on above: Performed By: #### C AIYANA #### [facility] [address] [address] [address] Alysha Machuca EGFR-AF COOK ISLANDER 56 mL/min/1.73m2 Critically low >=60 [facility] Comment on above: Performed By: #### C AIYANA #### [facility] [address] [address] [address] Alysha Machuca EGFR-NON AF [place]OOK ISLANDER 46 mL/min/1.73m2 Critically low >=60 [facility] Comment on above: Performed By: #### C AIYANA #### [facility] [address] ABD/PELVIS WO CONon [...] KYLE CHENEY Date: 2023-03-05 15:08 Normal [facility] VITAMIN B1 (THIAMINE)on 01-28 Vit. B1, Whole Blood 132.2 nmol/L Normal 66.5-200.0 [facility] Comment on above: Performed By: #### V ITB1T ####[facility] [address] [address]Dr. Alysha Machuca CBC AUTO DIFFon 02-20-2023 BASO # 0.1 103/ul Normal 0.0-0.1 [facility] Comment on above: Performed By: #### C BC #### [facility] [address] [address] [address] Alysha Machuca Basophils/100 WBC (Bld) 0.9 % Normal 0.2-2.0 [facility] Comment on above: Performed By: #### C BC #### [facility] [address] [place] [address] Dr. Alysha Machuca EO # 0.2 103/ul Normal 0.0-0.7 [facility] Comment on above: Performed By: #### C BC #### [facility] [address] [address] [address] Alysha Machuca Eosinophils/100 WBC (Bld) 3.0 % Normal 0.9-7.0 [facility] Comment on above: Performed By: #### C BC #### [facility] [address] [address] [address] Alysha Machuca Erythrocyte distribution width (RBC) [Ratio] 13.9 % Normal 11.0-15.0 [facility] Comment on above: Performed By: #### C BC #### [facility] [address] [address] [address] Alysha Machuca Hematocrit (Bld) [Volume fraction] 39.5 % Normal 36.0-48.0 [facility] Comment on above: Performed By: #### C BC #### [facility] [address] [place] [address] Dr. Alysha Machuca Hemoglobin (Bld) [Mass/Vol] 12.7 g/dL Normal 12.0-16.0 [facility] Comment on above: Performed By: #### C BC #### [facility] [address] [place] [address] Dr. Alysha Machuca IG # 0.01 10e3/ul Normal 0.00-0.03 [facility] Comment on above: Performed By: #### C BC #### [facility] [address] [place] [address] Dr. Alysha Machuca IG % 0.2 % Normal 0.0-0.5 [facility] Comment on above: Performed By: #### C BC #### [facility] [address] [place] [address] Dr. Alysha Machuca LYMPH # 1.7 103/ul Normal 1.2-3.8 [facility] Comment on above: Performed By: #### C BC #### [facility] [address] [place] [address] Dr. Alysha Machuca Lymphocytes/100 WBC (Bld) 30.7 % Normal 20.5-60.0 [facility] Comment on above: Performed By: #### C BC #### [facility] [address] [place] [address] Dr. Alysha Machuca MANUAL DIFF REQ NO Normal [facility] Comment on above: Performed By: #### C BC #### [facility] [address] [place] [address] Dr. Alysha Machuca MCH (RBC) [Entitic mass] 29.3 pg Normal 26.7-34.0 [facility] Comment on above: Performed By: #### C BC #### [facility] [address] [place] [address] Dr. Alysha Machuca MCHC (RBC) [Mass/Vol] 32.2 g/dL Normal 29.9-35.2 [facility] Comment on above: Performed By: #### C BC #### [facility] [address] [place] [address] Dr. Alysha Machuca MCV (RBC) [Entitic vol] 91.0 fL Normal 81.0-99.0 [facility] Comment on above: Performed By: #### C BC #### [facility] [address] [place] [address] Dr. Alysha Machuca MONO # 0.4 103/ul Normal 0.3-0.8 [facility] Comment on above: Performed By: #### C BC #### [facility] [address] [place] [address] Dr. Alysha Machuca Monocytes/100 WBC (Bld) 6.8 % Normal 1.7-12.0 [facility] Comment on above: Performed By: #### C BC #### [facility] [address] [place] [address] Dr. Alysha Machuca NEUT # 3.3 103/ul Normal 1.4-6.5 [facility] Comment on above: Performed By: #### C BC #### [facility] [address] [place] [address] Dr. Alysha Machuca Neutrophils/100 WBC (Bld) 58.4 % Normal 43.0-75.0 [facility] Comment on above: Performed By: #### C BC #### [facility] [address] [place] [address] Dr. Alysha Machuca Platelet mean volume (Bld) [Entitic vol] 9.3 fL Critically low 9.5-13.5 [facility] Comment on above: Performed By: #### C BC #### [facility] [address] [place] [address] Dr. Alysha Machuca PLT 186 103/ul Normal 150-450 [facility] Comment on above: Performed By: #### C BC #### [facility] [address] [place] [address] Dr. Alysha Machuca RBC 4.34 106/ul Normal 4.20-5.40 [facility] Comment on above: Performed By: #### C BC #### [facility] [address] [place] [address] Dr. Alysha Machuca WBC 5.6 103/ul Normal 4.0-11.0 [facility] Comment on above: Performed By: #### C BC #### [facility] [address] [address] [address] Alysha Machuca FERRITINon 02-20-2023 Ferritin [Mass/Vol] 36.0 ng/mL Normal 8.0-252.0 [facility] Comment on above: Performed By: #### F ERR, B12FOL, FETIBC, VITAD ####[facility] [address] [address]Dr. Alysha Machuca IRON AND TIBCon 02-20-2023 % SATURATION 15.8 % Normal [facility] Comment on above: Performed By: #### F ERR, B12FOL, FETIBC, VITAD ####[facility] [address] [address]Dr. Alysha Machuca Iron [Mass/Vol] 53.0 ug/dL Normal 50.0-170.0 [facility] Comment on above: Performed By: #### F ERR, B12FOL, FETIBC, VITAD ####[facility] [address] [address]Dr. Alysha Machuca TIBC DIRECT 335.0 ug/dL Normal 250.0-450.0 [facility] Comment on above: Performed By: #### F ERR, B12FOL, FETIBC, VITAD ####[facility] [address] [address]Dr. Alysha Machuca MAGNESIUMon 02-20-2023 Magnesium [Mass/Vol] 1.9 mg/dL Normal 1.8-2.4 [facility] Comment on above: Performed By: #### P HOS, CMP, MG #### [facility] [address] [address] [address] Alysha Machuca PHOSPHORUSon 02-20-2023 Phosphate [Mass/Vol] 3.9 mg/dL Normal 2.6-4.7 [facility] Comment on above: Performed By: #### P HOS, CMP, MG #### [facility] [address] [address] [address] Alysha Machuca PROF 14(COMP METB)on 023 Albumin [Mass/Vol] 3.4 g/dL Normal 3.4-5.0 [facility] Comment on above: Performed By: #### P HOS, CMP, MG #### [facility] [address] [address] [address] Alysha Machuca Albumin/Globulin [Mass ratio] 0.9 {ratio} Normal [facility] Comment on above: Performed By: #### P HOS, CMP, MG #### [facility] [address] [address] [address] Alysha Machuca ALP [Catalytic activity/Vol] 123 U/L Critically high 46-116 [facility] Comment on above: Performed By: #### P HOS, CMP, MG #### [facility] [address] [address] [address] Alysah Machuca ALT [Catalytic activity/Vol] 21 U/L Normal 14-59 [facility] Comment on above: Performed By: #### P HOS, CMP, MG #### [facility] [address] [address] [address] Alysha Machuca Anion gap [Moles/Vol] 13.8 mmol/L Normal [facility] Comment on above: Performed By: #### P HOS, CMP, MG #### [facility] [address] [address] [address] Alysha Machuca AST [Catalytic activity/Vol] 15 U/L Normal 15-37 [facility] Comment on above: Performed By: #### P HOS, CMP, MG #### [facility] [address] [address] [address] Alysha Machuca Bilirubin [Mass/Vol] 0.5 mg/dL Normal 0.2-1.0 [facility] Comment on above: Performed By: #### P HOS, CMP, MG #### [facility] [address] [address] [address] Alysha Machuca Calcium [Mass/Vol] 9.6 mg/dL Normal 8.5-10.1 [facility] Comment on above: Performed By: #### P HOS, CMP, MG #### [facility] [address] [address] [address] Alysha Machuca Chloride [Moles/Vol] 103 mmol/L Normal 98-107 [facility] Comment on above: Performed By: #### P HOS, CMP, MG #### [facility] [address] [place] [address] Dr. Alysha Machuca CO2 [Moles/Vol] 25.2 mmol/L Normal 21.0-32.0 [facility] Comment on above: Performed By: #### P HOS, CMP, MG #### [facility] [address] [address] [address] Alysha Machuca Creatinine [Mass/Vol] 0.95 mg/dL Normal 0.55-1.02 [facility] Comment on above: Performed By: #### P HOS, CMP, MG #### [facility] [address] [place] [address] Dr. Alysha Machuca EGFR-AF [place]OOK ISLANDER >60 Normal >=60 [facility] Comment on above: Performed By: #### P HOS, CMP, MG #### [facility] [address] [place] [address] Dr. Alysha Machuca EGFR-NON AF [place]ER 58 mL/min/1.73m2 Critically low >=60 [facility] Comment on above: Performed By: #### P HOS, CMP, MG #### [facility] [address] [place] [address] Dr. Alysha Machuca Globulin (S) [Mass/Vol] 3.6 g/dL Normal [facility] Comment on above: Performed By: #### P HOS, CMP, MG #### [facility] [address] [place] [address] Dr. Alysha Machuca Glucose [Mass/Vol] 96 mg/dL Normal 74-106 [facility] Comment on above: Performed By: #### P HOS, CMP, MG #### [facility] [address] [place] [address] Dr. Alysha Machuca Potassium [Moles/Vol] 4.0 mmol/L Normal 3.5-5.1 [facility] Comment on above: Performed By: #### P HOS, CMP, MG #### [facility] [address] [address] [address] Alysha Machuca Protein [Mass/Vol] 7.0 g/dL Normal 6.4-8.2 [facility] Comment on above: Performed By: #### P HOS, CMP, MG #### [facility] [address] [address] [address] Alysha Machuca Sodium [Moles/Vol] 138 mmol/L Normal 136-145 [facility] Comment on above: Performed By: #### P HOS, CMP, MG #### [facility] [address] [address] [address] Alysha Machuca Urea nitrogen [Mass/Vol] 21.0 mg/dL Critically high 7.0-18.0 [facility] Comment on above: Performed By: #### P HOS, CMP, MG #### [facility] [address] [address] [address] Alysha Machuca Urea nitrogen/Creatini ne [Mass ratio] 22.1 mg/mg Normal [facility] Comment on above: Performed By: #### P HOS, CMP, MG #### [facility] [address] [address] [address] Alysha Machuca VIT B12 AND FOLATEon 023 Cobalamin (Vitamin B12) [Mass/Vol] 652.0 pg/mL Normal 193.0-986.0 [facility] Comment on above: Performed By: #### F ERR, B12FOL, FETIBC, VITAD ####[facility] [address] [address]Dr. Alysha Machuca FOLATE 18.30 ng/mL Normal 8.60-58.90 [facility] Comment on above: Performed By: #### F ERR, B12FOL, FETIBC, VITAD ####[facility] [address] [address]Dr. Alysha Machuca VITAMIN D 25 OHon 02-20-2023 VIT D 25-OH 41.7 ng/mL Normal [facility] Comment on above: Performed By: #### F ERR, B12FOL, FETIBC, VITAD ####[facility] [address] [place], [place] [address]Bm. Alysha Machuca VIT D RANGES SEE BELOW Normal [facility] Comment on above: Result Comment: <20 ng/mL Vit D deficient 20 - <30 ng/mL Vit D insufficient 30 - 100 ng/mL Vit D sufficient >100 ng/mL Potential Toxicity Performed By: #### F ERR, B12FOL, FETIBC, VITAD ####[facility] [address] [place], [place] [address]Ul. Alysha Machuca XR KUB 1 VIEWon 02-20-2023 [...] KYLE CHENEY Date: 2023-02-20 15:57 Normal [facility] Office Visit (Cardiology)on 12-06-2022 Follow-up visit [...] a smoker Tobacco Use Screening; Status:Complete; Done: [id number] Patient Instructions Please bring all medicines, vitamins, [...] MG Oral TabletTAKE 1 TABLET Twice daily Towanda 3 [place] DIRECTED. Tylenol Arthritis Ext Relief [...] negative for complaint. Vitals Vital Signs Recorded: [id number] 01:27PM Heart Rate43, Apical Micbozxt680, RUE, Sitting Gcoaftioq04, RUE, Sitting Height5 ft 5 in Aylrqn080 lb BMI Ptndnzeval39.94 kg/m2 BSA Calculated2.07 Tobacco Useb) No PHQ-2 [...] Exam Constitutional (more content not included)... Normal [facility] Tobacco Screening.on 023 Adult depression screening assessment No [facility] [employer] y [address] DO Work Phone: Fall risk assessment a) No falls within the last year [facility] [employer] y 250 DO Work Phone: Tobacco use status CP b) No [facility] [employer] y 250 DO Work Phone: VC INJ SCL [employer]ATE VEINSon 0 11-03-2022 VC INJ SCL [employer] VEINS Patient: MIKY FUENTES Exam Date: 11/03/2022 : 1950 Gender:F Ordering : DR WILLARD SHARMA M.D. Admission #: [id number] Family : Order #: [id number] CLICK HERE TO VIEW EXAM RADIOLOGY REPORT PROCEDURE: VEIN CENTER INJECTION SCLEROSING SOLUTION MULTIPLE VEINS SAME COMPARISON: VC INJ SCL [employer]IATE VEINS, 10/27/2022. VC INJ SCL [employer] ASS[employer]IATE VEINS, 10/16/2022. INDICATIONS: Pain co-occurrent and due [...] Sharma MD on 11/03/2022 at 12:37 Normal [facility] XR KUB 1 VIEWon 11-03-2022 XR KUB [...] by: KYLE CHENEY Date: 2022-11-03 12:52 Normal [facility] VC INJ SCL [employer]IOR RESE[employer] ASSOCIATE VEINSon 1 VC INJ SCL [employer] ASS[employer]IATE VEINS Patient: MIKY FUENTES Exam Date: 10/27/2022 : 1950 Gender:F Ordering : DR WILLARD SHARMA M.D. Admission #: [id number] Family : Order #: [id number] CLICK HERE TO VIEW EXAM RADIOLOGY REPORT PROCEDURE: VEIN CENTER INJECTION SCLEROSING SOLUTION MULTIPLE VEINS SAME COMPARISON: VC INJ SCL [employer]IOR [employer] ASSOCIATE VEINS, 10/16/2022. VC INJ SCL [employer]IOR [employer] ASSOCIATE VEINS, 10/06/2022. INDICATIONS: Pain co-occurrent and due [...] Sharma MD on 10/27/2022 at 11:46 Normal [facility] VC INJ SCL [employer]IOR RESEARCH ASSOCIATE VEINSon 1 12-17-2021 VC INJ SCL [employer] ASS[employer]IATE VEINS Patient: MIKY FUENTES Exam Date: 10/16/2022 : 1950 Gender:F Ordering : DR WILLARD SHARMA M.D. Admission #: [id number] Family : Order #: [id number] CLICK HERE TO VIEW EXAM RADIOLOGY REPORT PROCEDURE: VEIN CENTER INJECTION SCLEROSING SOLUTION MULTIPLE VEINS SAME COMPARISON: VC INJ SCL [employer]IOR [employer] ASSOCIATE VEINS, 10/06/2022. INDICATIONS: Pain co-occurrent and due [...] Cheney M.D. on 10/17/2022 at 08:12 Normal [facility] CREATININEon 10-10-2022 Creatinine [Mass/Vol] 1.11 mg/dL Critically high 0.55-1.02 [facility] Comment on above: Performed By: #### C AIYANA ####[facility] [address] [place] [address]Dr. Alysha Machuca EGFR-AF [place]ER 59 mL/min/1.73m2 Critically low >=60 [facility] Comment on above: Performed By: #### C AIYANA ####[facility] [address] [place] [address]Dr. Alysha Machuca EGFR-NON AF [place] 48 mL/min/1.73m2 Critically low >=60 [facility] Comment on above: Performed By: #### C AIYANA ####[facility] [address] [place] [address]Dr. Alysha Machuca VC INJ SCL [employer]IOR RESE[employer] ASSOCIATE VEINSon 1 12-07-2021 VC INJ SCL [employer]IOR [employer] ASSOCIATE VEINS Patient: MIKY FUENTES Exam Date: 10/06/2022 : 1950 Gender:F Ordering : DR WILLARD SHARMA M.D. Admission #: [id number] Family : Order #: [id number] CLICK HERE TO VIEW EXAM RADIOLOGY REPORT [...] Sharma MD on 10/06/2022 at 13:45 Normal [facility] VC CONSULT FOLLOWUPon 2021 VC CONSULT FOLLOWUP Patient: MIKY FUENTES Exam Date: 09/26/2022 : 1950 Gender:F Ordering : DR WILLARD SHARMA M.D. Admission #: [id number] Family : Order #: [id number] CLICK HERE TO VIEW EXAM RADIOLOGY REPORT [...] Cheney M.D. on 09/26/2022 at 15:46 Normal [facility] VC EXT VENOUS RT LIMITEDon 1 11-26-2021 VC EXT VENOUS RT LIMITED Patient: MIKY FUENTES Exam Date: 09/26/2022 : 1950 Gender:F Ordering : DR WILLARD SHARMA M.D. Admission #: [id number] Family : Order #: [id number] CLICK HERE TO VIEW EXAM RADIOLOGY REPORT [...] Kyle Cheney M.D. on 09/26/2022 at 15:44 [facility] VC INJ FOAM SCLERO W US MLTI on 09-20-2022 VC INJ FOAM SCLERO W US MLTI Patient: MIKY FUENTES Exam Date: 09/20/2022 : 1950 Gender:F Ordering : DR WILLARD SHARMA M.D. Admission #: [id number] Family : Order #: [id number] CLICK HERE TO VIEW EXAM RADIOLOGY REPORT [...] Cheney M.D. on 09/20/2022 at 15:43 Normal [facility] VC CONSULT FOLLOWUPon 2021 VC CONSULT FOLLOWUP Patient: MIKY FUENTES Exam Date: 09/07/2022 : 1950 Gender:F Ordering : DR WILLARD SHARMA M.D. Admission #: [id number] Family : Order #: [id number] CLICK HERE [...] Sharma MD on 09/07/2022 at 13:04 Normal [facility] VC EXT VENOUS LT LIMITEDon 1 11-07-2021 VC EXT VENOUS LT LIMITED Patient: MIKY FUENTES Exam Date: 09/07/2022 : 1950 Gender:F Ordering : DR WILLARD SHARMA M.D. Admission #: [id number] Family : Order #: [id number] CLICK HERE TO VIEW EXAM RADIOLOGY REPORT [...] Sharma MD on 09/07/2022 at 11:59 Normal [facility] CBC AUTO DIFFon 09-01-2022 BASO # 0.0 103/ul Normal 0.0-0.1 [facility] Comment on above: Performed By: #### C BC #### [facility] [address] [address] [address] Alysha Machuca Basophils/100 WBC (Bld) 0.6 % Normal 0.2-2.0 [facility] Comment on above: Performed By: #### C BC #### [facility] [address] [place] [address] Dr. Alysha Machuca EO # 0.3 103/ul Normal 0.0-0.7 [facility] Comment on above: Performed By: #### C BC #### [facility] [address] [place] [address] Dr. Alysha Machuca Eosinophils/100 WBC (Bld) 4.3 % Normal 0.9-7.0 [facility] Comment on above: Performed By: #### C BC #### [facility] [address] [place] [address] Dr. Alysha Machuca Erythrocyte distribution width (RBC) [Ratio] 14.6 % Normal 11.0-15.0 [facility] Comment on above: Performed By: #### C BC #### [facility] [address] [place] [address] Dr. Alysha Machuca Hematocrit (Bld) [Volume fraction] 39.7 % Normal 36.0-48.0 [facility] Comment on above: Performed By: #### C BC #### [facility] [address] [place] [address] Dr. Alysha Machuca Hemoglobin (Bld) [Mass/Vol] 13.1 g/dL Normal 12.0-16.0 [facility] Comment on above: Performed By: #### C BC #### [facility] [address] [place] [address] Dr. Alysha Machuca IG # 0.01 10e3/ul Normal 0.00-0.03 [facility] Comment on above: Performed By: #### C BC #### [facility] [address] [place] [address] Dr. Alysha Machuca IG % 0.2 % Normal 0.0-0.5 [facility] Comment on above: Performed By: #### C BC #### [facility] [address] [place] [address] Dr. Alysha Machuca LYMPH # 1.9 103/ul Normal 1.2-3.8 [facility] Comment on above: Performed By: #### C BC #### [facility] [address] [place] [address] Dr. Alysha Machuca Lymphocytes/100 WBC (Bld) 29.5 % Normal 20.5-60.0 [facility] Comment on above: Performed By: #### C BC #### [facility] [address] [place] [address] Dr. Alysha Machuca MANUAL DIFF REQ NO Normal [facility] Comment on above: Performed By: #### C BC #### [facility] [address] [place] [address] Dr. Alysha Machuca MCH (RBC) [Entitic mass] 29.8 pg Normal 26.7-34.0 [facility] Comment on above: Performed By: #### C BC #### [facility] [address] [place] [address] Dr. Alysha Machuca MCHC (RBC) [Mass/Vol] 33.0 g/dL Normal 29.9-35.2 [facility] Comment on above: Performed By: #### C BC #### [facility] [address] [place] [address] Dr. Alysha Machuca MCV (RBC) [Entitic vol] 90.2 fL Normal 81.0-99.0 [facility] Comment on above: Performed By: #### C BC #### [facility] [address] [place] [address] Dr. Alysha Machcua MONO # 0.5 103/ul Normal 0.3-0.8 [facility] Comment on above: Performed By: #### C BC #### [facility] [address] [place] [address] Dr. Alysha Machuca Monocytes/100 WBC (Bld) 7.0 % Normal 1.7-12.0 [facility] Comment on above: Performed By: #### C BC #### [facility] [address] [place] [address] Dr. Alysha Machuca NEUT # 3.8 103/ul Normal 1.4-6.5 [facility] Comment on above: Performed By: #### C BC #### [facility] [address] [place] [address] Dr. Alysha Machuca Neutrophils/100 WBC (Bld) 58.4 % Normal 43.0-75.0 [facility] Comment on above: Performed By: #### C BC #### [facility] [address] [place] [address] Dr. Alysha Machuca Platelet mean volume (Bld) [Entitic vol] 9.5 fL Normal 9.5-13.5 [facility] Comment on above: Performed By: #### C BC #### [facility] [address] [place] [address] Dr. Alysha Machuca PLT 235 103/ul Normal 150-450 [facility] Comment on above: Performed By: #### C BC #### [facility] [address] [place] [address] Dr. Alysha Machuca RBC 4.40 106/ul Normal 4.20-5.40 [facility] Comment on above: Performed By: #### C BC #### [facility] [address] [place] [address] Dr. Alysha Machuca WBC 6.6 103/ul Normal 4.0-11.0 [facility] Comment on above: Performed By: #### C BC #### [facility] [address] [place] [address] Dr. Alysha Machuca PROF CHEM 8 (BAS METB)on Anion gap [Moles/Vol] 7.7 mmol/L Normal [facility] Comment on above: Performed By: #### B MP ####[facility] [address] [place], [place] [address]Dr. Alysha Machuca Calcium [Mass/Vol] 9.8 mg/dL Normal 8.5-10.1 [facility] Comment on above: Performed By: #### B MP ####[facility] [address] [place], [place] [address]Dr. Alyhsa Machuca Chloride [Moles/Vol] 104 mmol/L Normal 98-107 [facility] Comment on above: Performed By: #### B MP ####[facility] [address] [place] [address]Dr. Alysha Machuca CO2 [Moles/Vol] 29.2 mmol/L Normal 21.0-32.0 [facility] Comment on above: Performed By: #### B MP ####[facility] [address] [place] [address]Dr. Alysha Machuca Creatinine [Mass/Vol] 1.05 mg/dL Critically high 0.55-1.02 [facility] Comment on above: Performed By: #### B MP ####[facility] [address] [place] [address]Dr. Alysha Machuca EGFR-AF [place]ER >60 Normal >=60 [facility] Comment on above: Performed By: #### B MP ####[facility] [address] [place], [place] [address]Dr. Alysha Machuca EGFR-NON AF [place] 52 mL/min/1.73m2 Critically low >=60 [facility] Comment on above: Performed By: #### B MP ####[facility] [address] [place], [place] [address]Dr. Alysha Machuca Glucose [Mass/Vol] 107 mg/dL Critically high 74-106 [facility] Comment on above: Performed By: #### B MP ####[facility] [address] [place], [place] [address]Dr. Alysha Machuca Potassium [Moles/Vol] 3.9 mmol/L Normal 3.5-5.1 [facility] Comment on above: Performed By: #### B MP ####[facility] [address] [place], [place] [address]Dr. Alysha Machuca Sodium [Moles/Vol] 137 mmol/L Normal 136-145 [facility] Comment on above: Performed By: #### B MP ####[facility] [address] [place], [place] [address]Dr. Alysha Machuca Urea nitrogen [Mass/Vol] 16.0 mg/dL Normal 7.0-18.0 [facility] Comment on above: Performed By: #### B MP ####[facility] [address] [place], [place] [address]Ie. Alysha Machuca Urea nitrogen/Creatini ne [Mass ratio] 15.2 mg/mg Normal [facility] Comment on above: Performed By: #### B MP ####[facility] [address] [place], [place] [address]Ji. Alysha Machuca VC INJ FOAM SCLERO W US MLTI on 08-31-2022 VC INJ FOAM SCLERO W US MLTI Patient: MIKY FUENTES Exam Date: 08/31/2022 : 1950 Gender:F Ordering : DR WILLARD SHARMA M.D. Admission #: [id number] Family : Order #: [id number] CLICK HERE TO VIEW EXAM RADIOLOGY REPORT [...] compressi (more content not included)... Normal [facility] VC CONSULT FOLLOWUPon 2021 VC CONSULT FOLLOWUP Patient: MIKY FUENTES Exam Date: 08/22/2022 : 1950 Gender:F Ordering : DR WILLARD SHARMA M.D. Admission #: [id number] Family : Order #: [id number] CLICK HERE TO VIEW EXAM RADIOLOGY REPORT [...] Sharma MD on 08/22/2022 at 10:45 Normal [facility] VC EXT VENOUS RT LIMITEDon 1 VC EXT VENOUS RT LIMITED Patient: MIKY FUENTES Exam Date: 08/22/2022 : 1950 Gender:F Ordering : DR WILLARD SHARMA M.D. Admission #: [id number] Family : Order #: [id number] CLICK HERE TO VIEW EXAM RADIOLOGY REPORT [...] Sharma MD on 08/22/2022 at 10:21 Normal [facility] VC INJ FOAM SCLERO W US MLTI on 08-17-2022 VC INJ FOAM SCLERO W US MLTI Patient: MIKY FUENTES Exam Date: 08/17/2022 : 1950 Gender:F Ordering : DR WILLARD SHARMA M.D. Admission #: [id number] Family : Order #: [id number] CLICK HERE TO VIEW EXAM RADIOLOGY REPORT PROCEDURE: VEIN CENTER INJECTION FOAM SCLEROSING SOLUTION WITH ULTRASOUND MULTIPLE VEINS COMPARISON: VC INJ FOAM SCLERO W US MLTI, 08/01/2022. VC INJ FOAM SCLERO W [facility], 07/12/2022. Pre-operative Diagnosis: CEAP class C4a [...] take (more content not included)... Normal [facility] VC CONSULT FOLLOWUPon 2021 VC CONSULT FOLLOWUP Patient: MIKY FUENTES Exam Date: 08/07/2022 : 1950 Gender:F Ordering : DR WILLARD SHARMA M.D. Admission #: [id number] Family : Order #: [id number] CLICK HERE TO VIEW EXAM RADIOLOGY REPORT [...] Sharma MD on 08/07/2022 at 13:31 Normal [facility] VC EXT VENOUS LT LIMITEDon 1 VC EXT VENOUS LT LIMITED Patient: MIKY FUENTES Exam Date: 08/07/2022 : 1950 Gender:F Ordering : DR WILLARD SHARMA M.D. Admission #: [id number] Family : Order #: [id number] CLICK HERE TO VIEW EXAM RADIOLOGY REPORT [...] Willard Sharma MD on 08/07/2022 at 12:01 [facility] VC INJ FOAM SCLERO W US MLTI on 08-01-2022 VC INJ FOAM SCLERO W US MLTI Patient: MIKY FUENTES Exam Date: 08/01/2022 : 1950 Gender:F Ordering : DR WILLARD SHARMA M.D. Admission #: [id number] Family : Order #: [id number] CLICK HERE TO VIEW EXAM RADIOLOGY REPORT [...] compr (more content not included)... Normal [facility] VC CONSULT FOLLOWUPon 2021 VC CONSULT FOLLOWUP Patient: MIKY FUENTES Exam Date: 07/17/2022 : 1950 Gender:F Ordering : DR WILLARD SHARMA M.D. Admission #: [id number] Family : Order #: [id number] CLICK HERE TO VIEW EXAM RADIOLOGY REPORT [...] Cheney M.D. on 07/17/2022 at 12:18 Normal [facility] VC EXT VENOUS RT LIMITEDon 0 07-17-2022 VC EXT VENOUS RT LIMITED Patient: MIKY FUENTES Exam Date: 07/17/2022 : 1950 Gender:F Ordering : DR WILLARD SHARMA M.D. Admission #: [id number] Family : Order #: [id number] CLICK HERE TO VIEW EXAM RADIOLOGY REPORT [...] Cheney M.D. on 07/17/2022 at 12:14 Normal [facility] VC INJ FOAM SCLERO W US MLTI on 07-12-2022 VC INJ FOAM SCLERO W US MLTI Patient: MIKY FUENTES Exam Date: 07/12/2022 : 1950 Gender:F Ordering : DR WILLARD SHARMA M.D. Admission #: [id number] Family : Order #: [id number] CLICK HERE TO VIEW EXAM RADIOLOGY REPORT [...] da (more content not included)... Normal [facility] VC CONSULT FOLLOWUPon 2021 VC CONSULT FOLLOWUP Patient: MIKY FUENTES Exam Date: 06/30/2022 : 1950 Gender:F Ordering : DR WILLARD SHARMA M.D. Admission #: [id number] Family : Order #: [id number] CLICK HERE TO VIEW EXAM RADIOLOGY REPORT [...] Sharma MD on 06/30/2022 at 13:21 Normal [facility] VC EXT VENOUS LT LIMITEDon 0 06-30-2022 VC EXT VENOUS LT LIMITED Patient: MIKY FUENTES Exam Date: 06/30/2022 : 1950 Gender:F Ordering : DR WILLARD SHARMA M.D. Admission #: [id number] Family : Order #: [id number] CLICK HERE TO VIEW EXAM RADIOLOGY REPORT [...] Sharma MD on 06/30/2022 at 13:02 Normal [facility] ALBUMIN, RANDOM URINE W/CREA PROon 06-26-2022 ALBUMIN, URINE 12.7 mg/dL Normal See Note: [facility] Comment on above: Result Comment: Refe rence Range: Reference Range Not established Performed By: #### 7 600, 496, 37901, 7217 #### [facility] [address], [address] [place] [address] Customs House Broker: Marek Subramanian MD ALBUMIN/CREATININ E RATIO, RANDOM [...] category. Performed By: #### 7 600, 496, 18017, 6617 #### [facility] [address], [address] [place] [address] Customs House Broker: Marek Subramanian MD Creatinine (U) [Mass/Vol] 205 mg/dL Normal 20-275 [facility] Comment on above: Performed By: #### 7 600, 496, 15067, 6517 #### [facility] [address], [address] [place] [address] Customs House Broker: Marek Subramanian MD [facility] 06-26-2022 Albumin [Mass/Vol] 3.9 g/dL Normal 3.6-5.1 [facility] Comment on above: Performed By: #### 7 600, 496, 51428, 6517 #### [facility] [place] [address] Customs House Broker: Marek Subramanian MD Albumin/Globulin [Mass ratio] 1.4 {ratio} Normal 1.0-2.5 [facility] Comment on above: Performed By: #### 7 600, 496, 96256, 6517 #### [facility] [address] [place] [address] [employer] House Broker: Marek Subramanian MD ALP [Catalytic activity/Vol] 106 U/L Normal 37-153 [facility] Comment on above: Performed By: #### 7 600, 496, 38509, 6517 #### [facility] [address] [place] [address] Customs House Broker: Marek Subramanian MD ALT [Catalytic activity/Vol] 10 U/L Normal 6-29 [facility] Comment on above: Performed By: #### 7 600, 496, 44300, 6517 #### [facility] [address] [place] [address] [employer] House Broker: Marek Subramanian MD AST [Catalytic activity/Vol] 13 U/L Normal 10-35 [facility] Comment on above: Performed By: #### 7 600, 496, 32459, 6517 #### [facility] [address] [place] [address] Customs House Broker: Marek Subramanian MD Bilirubin [Mass/Vol] 0.8 mg/dL Normal 0.2-1.2 [facility] Comment on above: Performed By: #### 7 600, 496, 70796, 6517 #### [facility] [address] [place] [address] Customs House Broker: Marek Subramanian MD BUN/CREATININE RATIO NOT APPLICABLE Normal 6-22 [facility] Comment on above: Performed By: #### 7 600, 496, 76452, 6517 #### [facility] [place] [address] Customs House Broker: Marek Subramanian MD Calcium [Mass/Vol] 9.9 mg/dL Normal 8.6-10.4 [facility] Comment on above: Performed By: #### 7 600, 496, 34901, 6517 #### [facility] [place] [address] Customs House Broker: Marek Subramanian MD Chloride [Moles/Vol] 109 mmol/L Normal 98-110 [facility] Comment on above: Performed By: #### 7 600, 496, 13926, 6517 #### [facility] [place] [address] Customs House Broker: Marek Subramanian MD CO2 [Moles/Vol] 24 mmol/L Normal 20-32 [facility] Comment on above: Performed By: #### 7 600, 496, 60087, 6517 #### [facility] [place] [address] [employer] House Broker: Marek Subramanian MD Creatinine [Mass/Vol] 0.88 mg/dL Normal 0.60-1.00 [facility] Comment on above: Performed By: #### 7 600, 496, 03016, 6517 #### [facility] [place] [address] Customs House Broker: Marek Subramanian MD GFR/1.73 sq M.predicted among non-blacks MDRD (S/P/Bld) [Vol rate/Area] 70 mL/min/{1.73_m2} Normal > OR = 60 [facility] Comment on above: Result Comment: The eGFR is based on the CKD-EPI 2020 equation. To calculate the new eGFR from a previous Creatinine or Cystatin C result, go to https://www.kidney.org/professionals/ kdoqi/gfr%5Fcalculator Performed By: #### 7 600, 496, 70419, 6517 #### [facility] [place] [address] Customs House Broker: Marek Subramanian MD Globulin (S) [Mass/Vol] 2.7 g/dL Normal 1.9-3.7 [facility] Comment on above: Performed By: #### 7 600, 496, 94495, 6517 #### [facility] [place] [address] Customs House Broker: Marek Subramanian MD Glucose [Mass/Vol] 91 mg/dL Normal 65-99 [facility] Comment on above: Result Comment: Fasting reference interval Performed By: #### 7 600, 496, 59385, 6517 #### [facility] [place] [address] Customs House Broker: Marek Subramanian MD Potassium [Moles/Vol] 4.0 mmol/L Normal 3.5-5.3 [facility] Comment on above: Performed By: #### 7 600, 496, 13795, 6517 #### [facility] [place] [address] Customs House Broker: Marek Subramanian MD Protein [Mass/Vol] 6.6 g/dL Normal 6.1-8.1 [facility] Comment on above: Performed By: #### 7 600, 496, 58400, 6517 #### [facility] [place] [address] Customs House Broker: Marek Subramanian MD Sodium [Moles/Vol] 143 mmol/L Normal 135-146 [facility] Comment on above: Performed By: #### 7 600, 496, 40434, 6517 #### [facility] [place] [address] [employer] House Broker: Marek Subramanian MD Urea nitrogen [Mass/Vol] 15 mg/dL Normal 7-25 [facility] Comment on above: Performed By: #### 7 600, 496, 33099, 6517 #### [facility] [place] [address], [address] [place] [address] Customs House Broker: Marek Subramanian MD HEMOGLOBIN A1con 06-26-2022 HEMOGLOBIN [...] diagnosis of diabetes in children. According to [place] Diabetes Association (ADA) guidelines, hemoglobin A1c <7.0% represents optimal control in non- diabetic patients. Different metrics may apply to specific patient populations. Standards of Medical Care in Diabetes(ADA). Performed By: #### 7 600, 496, 94458, 6517 #### [facility] [place] [address] [employer] House Broker: Marek Subramanian MD LIPID PANEL, STANDARDon 05-30 Cholesterol [Mass/Vol] 171 mg/dL Normal <200 [facility] Comment on above: Order Comment: FASTI NG:YES FASTING: YES Performed By: #### 7 600, 496, 24478, 6517 #### [facility] [place] [address] [employer] House Broker: Marek Subramanian MD Cholesterol in HDL [Mass/Vol] 60 mg/dL Normal > OR = 50 [facility] Comment on above: Order Comment: FASTI NG:YES FASTING: YES Performed By: #### 7 600, 496, 75095, 6517 #### [facility] [place] [address] Customs House Broker: Marek Subramanian MD Cholesterol in LDL [Mass/Vol] [...] LDL-C. Nikita SS et al. LEWIS. 2013;310(19): 0257-7564 (http://education.CG Scholar/faq/RCK769) Performed By: #### 7 600, 496, 62685, 6517 #### [facility] [address], [address] [place] [address] Customs House Broker: Marek Subramanian MD Cholesterol.total /Cholesterol in HDL [Mass ratio] 2.9 {ratio} Normal <5.0 [facility] Comment on above: Order Comment: FASTI NG:YES FASTING: YES Performed By: #### 7 600, 496, 55143, 6517 #### [facility] [place] [address] [employer] House Broker: Marek Subramanian MD NON HDL CHOLESTEROL 111 mg/dL (calc) Normal <130 [facility] Comment on above: Order Comment: FASTI NG:YES FASTING: YES Result Comment: For patients with diabetes plus 1 major ASCVD risk factor, treating to a non-HDL-C goal of <100 mg/dL (LDL-C of <70 mg/dL) is considered a therapeutic option. Performed By: #### 7 600, 496, 74245, 6517 #### [facility] [place] [address] [employer] House Broker: Marek Subramanian MD Triglyceride [Mass/Vol] 95 mg/dL Normal <150 [facility] Comment on above: Order Comment: FASTI NG:YES FASTING: YES Performed By: #### 7 600, 496, 95175, 6517 #### [facility] [place] [address] [employer] House Broker: Marek Subramanian MD VC INJ FOAM SCLERO W US MLTI on 06-26-2022 VC INJ FOAM SCLERO W US MLTI Patient: MIKY FUENTES Exam Date: 06/26/2022 : 1950 Gender:F Ordering : DR WILLARD SHARMA M.D. Admission #: [id number] Family : Order #: [id number] CLICK HERE TO VIEW EXAM RADIOLOGY REPORT [...] vein medial distal lower leg/ankle. A large drafter commercial vein was occluded with manual pressure until [...] varices, (more content not included)... Normal [facility] VC CONSULT FOLLOWUPon 2021 VC CONSULT FOLLOWUP Patient: MIKY FUENTES Exam Date: 06/19/2022 : 1950 Gender:F Ordering : DR WILLARD SHARMA M.D. Admission #: [id number] Family : Order #: [id number] CLICK HERE TO VIEW EXAM RADIOLOGY REPORT [...] Cheney M.D. on 06/19/2022 at 12:14 Normal [facility] VC EXT VENOUS RT LIMITEDon 0 06-19-2022 VC EXT VENOUS RT LIMITED Patient: MIKY FUENTES Exam Date: 06/19/2022 : 1950 Gender:F Ordering : DR WILLARD SHARMA M.D. Admission #: [id number] Family : Order #: [id number] CLICK HERE TO VIEW EXAM RADIOLOGY REPORT [...] Cheney M.D. on 06/19/2022 at 12:11 Normal [facility] VC INJ FOAM SCLERO W US MLTI on 06-13-2022 VC INJ FOAM SCLERO W US MLTI Patient: MIKY FUENTES Exam Date: 06/13/2022 : 1950 Gender:F Ordering : DR WILLARD SHARMA M.D. Admission #: [id number] Family : Order #: [id number] CLICK HERE TO VIEW EXAM CORRECTION made [...] Cheney M.D. on 06/19/2022 at 12:17 Normal [facility] VC CONSULT FOLLOWUPon 2021 VC CONSULT FOLLOWUP Patient: MIKY FUENTES Exam Date: 05/31/2022 : 1950 Gender:F Ordering : DR WILLARD SHARMA M.D. Admission #: [id number] Family : Order #: [id number] CLICK HERE TO VIEW EXAM RADIOLOGY REPORT [...] Kyle Cheney M.D. on 05/31/2022 at 12:18 [facility] VC EXT VENOUS LT LIMITEDon 0 05-31-2022 VC EXT VENOUS LT LIMITED Patient: MIKY FUENTES Exam Date: 05/31/2022 : 1950 Gender:F Ordering : DR WILLARD SHARMA M.D. Admission #: [id number] Family : Order #: [id number] CLICK HERE TO VIEW EXAM RADIOLOGY REPORT [...] Kyle Cheney M.D. on 05/31/2022 at 12:13 [facility] CT ABD/PELVIS WO CONon 05-26 [...] by: SANTHOSH NICK Date: 2022-05-26 16:43 Normal [facility] VC ENDOVENOUS ABL 1ST V LTon 05-23-2022 VC ENDOVENOUS ABL 1ST V LT Patient: MIKY FUENTES Exam Date: 05/23/2022 : 1950 Gender:F Ordering : DR WILLARD SHARMA M.D. Admission #: [id number] Family : Order #: [id number] CLICK HERE TO VIEW EXAM RADIOLOGY REPORT [...] Cheney M.D. on 05/23/2022 at 12:34 Normal [facility] US KIDNEYSon 05-05-2022 US KIDNEYS EXAMINATION: US [...] by: WILLARD SHARMA Date: 2022-05-05 13:29 Normal [facility] XR KUB 1 VIEWon 05-05-2022 XR KUB [...] KYLE CHENEY Date: 2022-05-05 15:54 Normal [facility] MG MAMM SCREEN 3D TANMAY CADon 05-04-2022 MG MAMM SCREEN 3D TANMAY CAD Patient: MIKY FUENTES Exam Date: 05/04/2022 : 1950 Gender:F Ordering : DR CONNOR ANAYA Admission #: [id number] Family : Order #: [id number] CLICK HERE TO VIEW EXAM RADIOLOGY REPORT [...] colon cancer at age 60. LOCATION: [facility] BREAST COMPOSITION: Scattered areas fibroglandular density. [...] M.D. on 05/05/2022 at 14:21 Normal [facility] VC CONSULT FOLLOWUPon 2021 VC CONSULT FOLLOWUP Patient: MIKY FUENTES Exam Date: 05/04/2022 : 1950 Gender:F Ordering : DR WILLARD SHARMA M.D. Admission #: [id number] Family : Order #: [id number] CLICK HERE TO VIEW EXAM RADIOLOGY REPORT [...] Cheney M.D. on 05/04/2022 at 11:43 Normal [facility] VC EXT VENOUS RT LIMITEDon 0 05-04-2022 VC EXT VENOUS RT LIMITED Patient: MIKY FUENTES Exam Date: 05/04/2022 : 1950 Gender:F Ordering : DR WILLARD SHARMA M.D. Admission #: [id number] Family : Order #: [id number] CLICK HERE TO VIEW EXAM RADIOLOGY REPORT [...] M.D. on 05/04/2022 at 11:17 Normal [facility] CULTURE URINEon 05-03-2022 CULTURE URINE Culture Observations : LIGHT GROWTH OF MIXED GENITAL LUDWIN. NO POTENTIAL PATHOGENS SEEN. Normal [facility] Comment on above: Performed By: #### U RCX ####[facility] [address] [place] [address]Dr. Alysha Machuca UA RANDOMon 05-03-2022 Bilirubin Ql (U) Negative Normal NEGATIVE [facility] Comment on above: Performed By: #### U A #### [facility] [address] [place] [address] Dr. Alysha Machuca Clarity (U) TURBID Abnormal CLEAR [facility] Comment on above: Performed By: #### U A #### [facility] [address] [place] [address] Dr. Alysha Machuca Color (U) RED Abnormal YELLOW [facility] Comment on above: Result Comment: Prev iously reported as: YELLOW On 05/03/2022 17:30 By CV2 Performed By: #### U A #### [facility] [address] [address] [address] Alysha Machuca Glucose Ql (U) Negative Normal NEGATIVE [facility] Comment on above: Performed By: #### U A #### [facility] [address] [address] [address] Alysha Machuca Hemoglobin Ql (U) LARGE Abnormal NEGATIVE [facility] Comment on above: Performed By: #### U A #### [facility] [address] [place] [address] Dr. Alysha Machuca Ketones Ql (U) Negative Normal NEGATIVE [facility] Comment on above: Performed By: #### U A #### [facility] [address] [place] [address] Dr. Alysha Machuca LEUKOCYTES Negative Normal NEGATIVE [facility] Comment on above: Performed By: #### U A #### [facility] [address] [place] [address] Dr. Alysha Machuca Nitrite Ql (U) Negative Normal NEGATIVE [facility] Comment on above: Performed By: #### U A #### [facility] [address] [place] [address] Dr. Alysha Machuca pH (U) 6.0 [pH] Normal 5-9 [facility] Comment on above: Performed By: #### U A #### [facility] [address] [place] [address] Dr. Alysha Machuca SPEC GRAVITY 1.025 Normal 1.005-<=1.025 [facility] Comment on above: Performed By: #### U A #### [facility] [address] [place] [address] Dr. Alysha Machuca UA PROTEIN 100 mg/dl Abnormal NEGATIVE/ TRACE [facility] Comment on above: Performed By: #### U A #### [facility] [address] [place] [address] Dr. Alysha Machuca Urobilinogen Qn (U) 0.2 {Luis'U}/dL Normal 0.2 - 1.0 [facility] Comment on above: Performed By: #### U A #### [facility] [address] [place] [address] Dr. Alysha Machuca VC ENDOVENOUS ABL 1ST V RTon 04-26-2022 VC ENDOVENOUS ABL 1ST V RT Patient: MIKY FUENTES Exam Date: 04/26/2022 : 1950 Gender:F Ordering : DR WILLARD SHARMA M.D. Admission #: [id number] Family : Order #: [id number] CLICK HERE TO VIEW EXAM RADIOLOGY REPORT [...] Sharma MD on 04/26/2022 at 10:58 Normal [facility] VC CONSULT FOLLOWUPon 2021 VC CONSULT FOLLOWUP Patient: MIKY FUENTES Exam Date: 04/13/2022 : 1950 Gender:F Ordering : DR WILLARD SHARMA M.D. Admission #: [id number] Family : Order #: [id number] CLICK HERE TO VIEW EXAM RADIOLOGY REPORT [...] Cheney M.D. on 04/13/2022 at 10:59 Normal [facility] VC EXT VENOUS LT LIMITEDon 0 04-13-2022 VC EXT VENOUS LT LIMITED Patient: MIKY FUENTES Exam Date: 04/13/2022 : 1950 Gender:F Ordering : DR WILLARD SHARMA M.D. Admission #: [id number] Family : Order #: [id number] CLICK HERE TO VIEW EXAM RADIOLOGY REPORT [...] Cheney M.D. on 04/13/2022 at 10:56 Normal [facility] Office Visit (Cardiology)on 03-22-2022 Follow-up visit Diagnoses/Problems [...] IO EKG Electrocardiogram- 12 Lead; Status:Complete; Done: [id number] SocHx: Never a smoker Tobacco Use Screening; Status:Complete; Done: [id number] Patient Instructions By signing my name below, [...] failure. With guideline directed therapy in the sikhism of maintenance of sinus rhythm her symptoms [...] Oral TabletTake 1 tablet twice a day Towanda 3 CAPSTAKE DIRECTED. Tylenol Arthritis Ext Relief [...] negative for complaint. Vitals Vital Signs Recorded: [id number] 02:06PM Heart Rate47, Apical Ivfozkjq970, RUE, Sitting Lyqzkmowr75, RUE, Sitting Height5 ft 5 in Iqodsd617 lb 6.4 oz BMI Riivowgvys74.17 kg/m2 BSA Calculated2.19 Tobacco Useb) No PHQ-2 [...] no murmurs (more content not included)... Normal [facility] Tobacco Screening.on 022 Adult depression screening assessment No [facility] [...] : DR WILLARD SHARMA M.D. Admission #: [id number] Family : Order #: [id number] CLICK HERE TO VIEW EXAM RADIOLOGY REPORT PROCEDURE: VEIN CENTER ENDOVENOUS ABLATION VEIN LEFT LEG COMPARISON: None. INDICATIONS: Pain co-occurrent and due to varicose veins of bilateral legs I83.813 OPERATIVE REPORT: Diagnosis: Superficial venous reflux, incompetent perforating veins Procedure: Endovenous laser ablation of the left drafter commercial(s) Procedure: The patient was positioned supine on [...] MD (more content not included)... Normal [facility] KAL SCREEN, IFA, W/REFL TITE R/PATTERN [...] indicated. For additional information, please refer to http://education.CG Scholar/faq/GUW829 (This link is being provided for informational/ educational purposes only.) Performed By: #### 8 09, 8268, 4420, 02738, %[id number] #### [facility] [address], [address] [place], [place] [id number] Customs House Broker: Marek Subramanian MD ANTINUCLEAR ANTIBODIES TITER AND PATTERNon 10-01-2021 KAL PATTERN Nuclear, Centromere Abnormal Ques t [facility] Comment on above: Result Comment: Cent romere pattern is associated with limited cutaneous systemic sclerosis, CREST (Calcinosis, Raynaud's, Esophageal dysmotility, Sclerodactyly, Telangiectasia), primary biliary cholangitis (PBC), and other autoimmune diseases. AC-3: Centromere International Consensus on KAL Patterns (https://doi.org/10.1515/bazw-3143-1536) Performed By: #### 8 09, 8268, 4420, 96214, %[id number] #### [facility] [address], [address] [place] [address] Customs House Broker: Marek Subramanian MD KAL PATTERN Nuclear, Homogeneous Abnormal Que [facility] Comment on above: Result Comment: Homo geneous pattern is associated with systemic lupus erythematosus (SLE), drug-induced lupus and juvenile idiopathic arthritis. AC-1: Homogeneous International Consensus on KAL Patterns (https://doi.org/10.1515/cksi-7129-8804) Performed By: #### 8 09, 8268, 4420, 79471, %[id number] #### [facility] [place] [address] Customs House Broker: Marek Subramanian MD KAL TITER > OR = 1:1280 Abnormal [facility] Comment on above: Result Comment: Refe rence Range <1:40 Negative 1:40-1:80 Low Antibody Level >1:80 Elevated Antibody Level Performed By: #### 8 09, 8268, 4420, 28878, %66705 #### [facility] of [place] [address] Customs House Broker: Marek Subramainan MD KAL TITER 1:80 High [facility] Comment on above: Result Comment: A lo w level KAL titer may be present in pre- clinical autoimmune diseases and normal individuals. Reference Range <1:40 Negative 1:40-1:80 Low Antibody Level >1:80 Elevated Antibody Level Performed By: #### 8 09, 8268, 4420, 68207, %59830 #### [facility] of [place] [address] Customs House Broker: Marek Subramanian MD C-REACTIVE PROTEINon 021 CRP [Mass/Vol] 13.4 mg/L High <8.0 [facility] Comment on above: Performed By: #### 8 09, 8268, 4420, 14358, %63776 #### [facility] [place] [address] [employer] House Broker: Marek Subramanian MD RHEUMATOID ARTHRITIS DIAGNOS TIC PANEL 1on 10-01-2021 CYCLIC CITRULLINATED PEPTIDE (CCP) AB (IGG) <16 Normal [facility] Comment on above: Result Comment: Refe rence Range Negative: <20 Weak Positive: 20-39 Moderate Positive: 40-59 Strong Positive: >59 Performed By: #### 8 09, 8268, 4420, 42921, %00140 #### [facility] of [address], [address] [place] [address] Customs House Broker: Marek Subramanian MD INTERPRETATION Normal [facility] Comment on above: Result Comment: These serologic results may be found in 10-20% of patients with polyarthritis that is clinically and radiologically indistinguishable from RA. Performed By: #### 8 09, 8268, 4420, 01291, %52417 #### [facility] [address], [address] [place] [address] Customs House Broker: Marek Subramanian MD RHEUMATOID FACTOR <14 Normal <14 [facility] Comment on above: Performed By: #### 8 09, 8268, 4420, 26374, %62585 #### [facility] [address], [address] [place] [address] Customs House Broker: Marek Subramanian MD SED RATE BY MODIFIED WESTERG RENon 10-01-2021 SED RATE BY MODIFIED WESTERGREN 51 mm/h High < OR = 30 [facility] Comment on above: Performed By: #### 8 09, 8268, 4420, 61214, %[id number] #### [facility] [place] [address] Customs House Broker: Marek Subramanian MD Tobacco Screening.on 021 Fall risk assessment a) No falls within the last year [facility] [employer] [address] DO Work Phone: Tobacco use status [facility] b) No [facility] [employer] [address] DO Work Phone: Vital Signs Date Time Vital Sign Value Performing Clinician Facility 11-25-2024 15:25-0500 Body height 160 cm Connor Grouply Work Phone: [facility] [employer] 11-25-2024 15:25-0500 Body mass index (BMI) [Ratio] 37.13 kg/m2 [employer] [facility] 11-25-2024 15:25-0500 Body weight 95.07 kg Connor Furlong DO Work Phone: [facility] 11-25-2024 15:25-0500 Diastolic blood pressure 56 mm[Hg] Connor Furlong DO Work Phone: [facility] 11-25-2024 15:25-0500 Systolic blood pressure 110 mm[Hg] Connor Furlong DO Work Phone: [facility] 11-04-2024 11:24-0500 Body height 165.1 cm Jr. Stepanic DO Work Phone: [facility] 11-04-2024 11:24-0500 Body mass index (BMI) [Ratio] 34.81 kg/m2 Jr. Stepanic DO Work Phone: [facility] 11-04-2024 11:24-0500 Body weight 94.89 kg Jr. Stepanic DO Work Phone: [facility] 10-13-2024 08:40-0500 Body height 162.6 cm Connor Furlong DO Work Phone: [facility] 10-13-2024 08:40-0500 Body mass index (BMI) [Ratio] 35.46 kg/m2 Connor Furlong DO Work Phone: [facility] 10-13-2024 08:40-0500 Body temperature 98.4 [degF] Connor Furlong DO Work Phone: [facility] 10-13-2024 08:40-0500 Body weight 93.71 kg Connor Furlong DO Work Phone: [facility] 10-13-2024 08:40-0500 Diastolic blood pressure 56 mm[Hg] Connor Furlong DO Work Phone: [facility] 10-13-2024 08:40-0500 Heart rate 60 /min Connor Furlong DO Work Phone: [facility] 10-13-2024 08:40-0500 Respiratory rate 18 /min Connor Furlong DO Work Phone: [facility] [employer] [facility] 10-13-2024 08:40-0500 Systolic blood pressure 110 mm[Hg] Connor Furlong DO Work Phone: [facility] [employer] [facility] 08-28-2024 10:39-0400 Body height 165.1 cm Carmen Lopez MD Work Phone: [facility] 08-28-2024 10:39-0400 Body mass index (BMI) [Ratio] 35.28 kg/m2 Carmen Lopez MD Work Phone: [facility] 08-28-2024 10:39-0400 Body weight 96.16 kg Carmen Lopez MD Work Phone: [facility] 08-28-2024 10:39-0400 Diastolic blood pressure 56 mm[Hg] Carmen Lopez MD Work Phone: [facility] 08-28-2024 10:39-0400 Heart rate 56 /min Carmen Lopez MD Work Phone: [facility] 08-28-2024 10:39-0400 Systolic blood pressure 122 mm[Hg] Carmen Lopez MD Work Phone: [facility] 08-18-2024 10:47-0400 Body height 162.6 cm Connor Furlong DO Work Phone: [facility] [employer] [facility] 08-18-2024 10:47-0400 Body mass index (BMI) [Ratio] 36.22 kg/m2 Connor Furlong DO Work Phone: [facility] [employer] [facility] 08-18-2024 10:47-0400 Body temperature 97.39 [degF] Connor Furlong DO Work Phone: [facility] [employer] [facility] 08-18-2024 10:47-0400 Body weight 95.71 kg Connor Furlong DO Work Phone: [facility] [employer] [facility] 08-18-2024 10:47-0400 Diastolic blood pressure 72 mm[Hg] Connor Furlong DO [facility] 08-18-2024 10:47-0400 Heart rate 64 /min Connor Furlong DO Work Phone: [facility] [employer] [facility] 08-18-2024 10:47-0400 Systolic blood pressure 124 mm[Hg] Connor Furlong DO Work Phone: [facility] [employer] [facility] 07-15-2024 14:59-0400 Blood Pressure Location Radha Orzech [facility] 07-15-2024 14:59-0400 Diastolic blood pressure 64 mm[Hg] Radha Orzech [facility] 07-15-2024 14:59-0400 Heart rate 65 /min Radha Orzech [facility] 07-15-2024 14:59-0400 Systolic blood pressure 112 mm[Hg] Radha Orzech [facility] 03-06-2024 09:31-0400 Body height 165.1 cm Nick Richardson MD Work Phone: [facility] 03-06-2024 09:31-0400 Body mass index (BMI) [Ratio] 36.78 kg/m2 Nick Richardson MD Work Phone: [facility] 03-06-2024 09:31-0400 Body weight 100.25 kg Nick Richardson MD Work Phone: [facility] 03-06-2024 09:31-0400 Diastolic blood pressure 58 mm[Hg] Nick Richardson MD Work Phone: [facility] 03-06-2024 09:31-0400 Heart rate 44 /min Nick Richardson MD Work Phone: [facility] 03-06-2024 09:31-0400 Systolic blood pressure 104 mm[Hg] Nick Richardson MD Work Phone: [facility] 02-18-2024 10:11-0400 Body height 162.6 cm Connor Furlong DO [facility] 02-18-2024 10:11-0400 Body mass index (BMI) [Ratio] 37.25 kg/m2 Connor Furlong DO Work Phone[facility] 02-18-2024 10:11-0400 Body temperature 97.81 [degF] Connor Furlong DO [facility] 02-18-2024 10:11-0400 Body weight 98.43 kg Connor Furlong DO Work [facility] 02-18-2024 10:11-0400 Diastolic blood pressure 62 mm[Hg] Connor Furlong DO [facility] 02-18-2024 10:11-0400 Heart rate 55 /min Connor Furlong DO Work Phone[facility] 02-18-2024 10:11-0400 Respiratory rate 20 /min Connor Furlong DO Work Phone[facility] 02-18-2024 10:11-0400 SaO2% (BldA) [Mass fraction] 98 % Connor Furlong DO Work Phone[facility] 02-18-2024 10:11-0400 Systolic blood pressure 130 mm[Hg] Connor Furlong DO Work Phone: [facility] 12-06-2022 13:27-0500 Body height 165.1 cm Connor Marinelli Furlong Work Phone: [facility] [address] DO Work Phone: 12-06-2022 13:27-0500 Body mass index (BMI) [Ratio] 36.94 kg/m2 Connor Marinelli Furlong Work Phone: [facility] [facility] DO Work Phone: 12-06-2022 13:27-0500 Body surface area Derived from formula 2.07 m2 Connor Marinelli Furlong Work Phone: [facility] [address] DO Work Phone: 12-06-2022 13:27-0500 Body weight 100.7 kg Connor Lewislong Work Phone: [facility] [address] DO Work Phone: 12-06-2022 13:27-0500 Diastolic blood pressure 84 mm[Hg] Connor Marinelli Furlong Work Phone: [facility] [facility] DO Work Phone: 12-06-2022 13:27-0500 Heart rate 43 /min Connor Lewislong Work Phone: [facility] [address] DO Work Phone: 12-06-2022 13:27-0500 Systolic blood pressure 130 mm[Hg] Connor Marinelli Furlong Work Phone: [facility] [facility] DO Work Phone: 06-30-2022 11:43-0400 Blood Pressure Location Yehuda HASSAN [facility] 06-30-2022 11:43-0400 Diastolic blood pressure 69 mm[Hg] Yehuda HASSAN [facility] 06-30-2022 11:43-0400 Heart rate 60 /min Yehuda HASSAN [facility] 06-30-2022 11:43-0400 Respiratory rate 16 /min Yehuda HASSAN [facility] 06-30-2022 11:43-0400 Systolic blood pressure 129 mm[Hg] Yehuda HASSAN [facility] 03-22-2022 14:06-0400 Body height 165.1 cm Connor G Furlong Work Phone: [facility] [address] DO Work Phone: 03-22-2022 14:06-0400 Body mass index (BMI) [Ratio] 42.17 kg/m2 Connor G Furlong Work Phone: [facility] [facility] DO Work Phone: 03-22-2022 14:06-0400 Body surface area Derived from formula 2.19 m2 Connor G Furlong Work Phone: [facility] [facility] DO Work Phone: 03-22-2022 14:06-0400 Body weight 114.94 kg Connor G Furlong Work Phone: [facility] DO Work Phone: 03-22-2022 14:06-0400 Diastolic blood pressure 70 mm[Hg] Connor G Furlong Work Phone: [facility] DO Work Phone: 03-22-2022 14:06-0400 Heart rate 47 /min Connor G Furlong Work Phone: [facility] [facility] DO Work Phone: 03-22-2022 14:06-0400 Systolic blood pressure 114 mm[Hg] Ocnnor G Furlong Work Phone: [facility] [place] [facility] DO Work Phone: 08-16-2021 14:38-0400 Body height 165.1 cm Connor Marinelli Furlong Work Phone: [facility] [place] 600 DO Work Phone: 08-16-2021 14:38-0400 Body mass index (BMI) [Ratio] 42.53 kg/m2 Connor G Furlong Work Phone: [facility] [place] [address] DO Work Phone: 08-16-2021 14:38-0400 Body surface area Derived from formula 2.2 m2 Connor G Furlong Work Phone: [facility] [place] [address] DO Work Phone: 08-16-2021 14:38-0400 Body weight 115.94 kg Connor Marinelli Furlong Work Phone: [facility] [place] [address] DO Work Phone: 08-16-2021 14:38-0400 Diastolic blood pressure 74 mm[Hg] Connor G Furlong Work Phone: [facility] [place] [address] DO Work Phone: 08-16-2021 14:38-0400 Heart rate 44 /min Connor Marinelli Furlong Work Phone: [facility] [place] [address] DO Work Phone: 08-16-2021 14:38-0400 Systolic blood pressure 134 mm[Hg] Connor G Furlong Work Phone: [facility] [place] [address] DO Work Phone: Encounters Encounter Date Encounter Type Care Provider Facility Start: 11-27-2024 End: 11-27-2024 ambulatory [facility] Start: 11-27-2024 End: 11-27-2024 ambulatory [facility] Start: 11-25-2024 End: 11-25-2024 ambulatory CONNORWANDY ANAYA [facility] Start: 11-25-2024 End: 11-25-2024 Patient encounter procedure Connor Anaya DO Work Phone: [facility] Comment on above: Medicare annual well ness visit, subsequent (Primary Dx); Screening for depression Start: 11-14-2024 End: 11-15-2024 [facility] Comment on above: Proteinuria, unspeci fied Start: 11-04-2024 End: 11-04-2024 Zeus Mcclain DO Work Phone: [facility] Start: 11-04-2024 End: 11-04-2024 Zeus Mcclain DO Work Phone: [facility] Start: 11-04-2024 End: 11-04-2024 ambulatory LESVIA KEITA Not Available Start: 11-04-2024 End: 11-04-2024 Office outpatient visit 15 minutes Jr. Lesvia Mcclain DO Work Phone: [facility] Comment on above: Arthritis of right k nee (Primary Dx); Acute pain of right knee; Chondromalacia, patella, right Start: 10-17-2024 End: 10-17-2024 ambulatory [facility] Start: 10-13-2024 End: 10-13-2024 Transitional care manage srvc 14 day discharge Connor Anaya DO Work Phone: [facility] Internal Medicine - Family Medicine Comment on above: Nonsustained ventric ular tachycardia (CMS-HCC) (Primary Dx); Non-ischemic cardiomyopathy (CMS-HCC); Paroxysmal atrial fibrillation (CMS-HCC); Primary hypertension; Need for immunization against influenza; 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 and body mass index (BMI) of 35.0 to 35.9 in adult Start: 10-13-2024 End: 10-13-2024 ambulatory CONNOR ANAYA [facility] Amb[facility] Start: 10-07-2024 End: 10-07-2024 ambulatory Yehuda HASSAN Facility:CD:[id number] Start: 09-28-2024 End: 09-28-2024 Telephone encounter Juju Van [facility] Call Elza haddad Comment on above: critical EKG Start: 09-11-2024 End: 09-11-2024 ambulatory Yehuda HASSAN Facility:CD:[id number] Start: 09-03-2024 End: 09-03-2024 Orders Only Connor Marinelli Jaclyn DO Work Phone: [facility] Internal Medicine - Family Medicine Start: 09-02-2024 End: 09-02-2024 Bamboo flowsheet Nany HO Work Phone: [facility] Start: 09-02-2024 End: 09-02-2024 Bamboo flowsheet Nany HO Work Phone: [facility] Start: 09-02-2024 End: 09-04-2024 Telephone encounter Isa Triana [facility] Internal Medicine - Family Medicine Start: 09-02-2024 End: 09-02-2024 ambulatory NANY JAIN Not Available Start: 09-02-2024 End: 09-02-2024 Office outpatient visit 25 minutes Nany HO Work Phone: [facility] Comment on above: Arthritis of right k nee (Primary Dx); Acute pain of right knee; Chondromalacia, patella, right Start: 08-28-2024 End: 08-28-2024 Office outpatient visit 25 minutes Carmen Lopez MD Work Phone: [facility] Comment on above: Paroxysmal atrial fi brillation (Multi) (Primary Dx); Non-ischemic cardiomyopathy (Multi); Mixed hyperlipidemia; Sinus bradycardia; High risk medication use; Class 2 obesity; BMI 35.0-35.9,adult; Never smoked tobacco Start: 08-28-2024 End: 08-28-2024 ambulatory [facility] Ambulatory Start: 08-19-2024 End: 08-19-2024 Orders Only Connor Anaya DO Work Phone: [facility] Internal Medicine - Family Medicine Start: 08-18-2024 End: 08-18-2024 ambulatory CONNOR ANAYA [facility] Start: 08-18-2024 End: 08-18-2024 ambulatory CONNOR LEWISLEONIE [facility] Ambulatory [facility] Start: 08-18-2024 End: 08-18-2024 Office [...] 07-29-2024 Lab Drop off Radha X Orzech [facility] Start: 07-29-2024 End: 07-29-2024 ambulatory Radha X Orzech Facility:[facility] Start: 07-29-2024 End: 07-29-2024 Patient encounter procedure Radha X Orzech [facility] Start: 07-24-2024 End: 07-24-2024 Refill Connor Anaya DO Work Phone: [facility] Internal Medicine - Family Medicine Start: 07-15-2024 End: 07-15-2024 Lab Drop off Radha X Orzech [facility] Start: 07-15-2024 End: 07-15-2024 ambulatory Radha X Orzech Facility:[facility] Start: 07-15-2024 End: 07-15-2024 Patient encounter procedure Radha X Orzech [facility] [place] Start: 07-01-2024 End: 07-01-2024 ambulatory Radha X Orzech Facility: [place] Start: 07-01-2024 End: 07-01-2024 Patient encounter procedure [facility]zech [facility] Start: 06-10-2024 End: 06-10-2024 ambulatory Radha X Orzech Facility:[facility] Start: 06-10-2024 End: 06-10-2024 Patient encounter procedure Radha X Orzech [facility] [place] Start: 05-20-2024 End: 05-20-2024 ambulatory Radha X Orzech Facility:[facility] Start: 05-20-2024 End: 05-20-2024 Patient encounter procedure Radha X Orzech [facility] Start: 05-16-2024 End: 05-16-2024 ambulatory Yehuda HASSAN Facility: [place] Start: 05-16-2024 End: 05-16-2024 Patient encounter procedure Yehuda HASSAN [facility] Start: 03-26-2024 End: 03-26-2024 ambulatory LESVIA KEITA Not Available Start: 03-06-2024 End: 03-06-2024 Office outpatient visit 25 minutes Nick Richardson MD Work Phone: [facility] Comment on above: Mixed hyperlipidemia (Primary Dx); Paroxysmal atrial fibrillation (Multi); Non-ischemic cardiomyopathy (Multi); Never smoked tobacco; BMI 36.0-36.9,adult; Hyperlipidemia, unspecified hyperlipidemia type Start: 03-06-2024 End: 03-06-2024 ambulatory [facility] Ambulatory Start: 02-22-2024 End: 02-22-2024 Orders Only Connor Anaya DO Work Phone: [facility] Start: 02-20-2024 End: 02-20-2024 Orders Only Connor Anaya DO Work Phone: [facility] Internal Medicine - Family Medicine Comment on above: Sleep Lab (HST) Start: 02-18-2024 End: 02-18-[address] [facility] Start: 02-18-2024 End: 02-18-2024 ambulatory [facility] Ambulatory [facility] Start: 02-18-2024 End: 02-18-2024 Office [...] (BMI) of 37.0 to 37.9 in adult ([facility]) Start: 02-14-2024 End: 02-14-2024 Refill Connor Anaya DO Work Phone: [facility] - Family [facility] Start: 12-24-2023 End: 12-24-2023 ambulatory [facility] Ambulatory Start: 12-13-2023 End: 12-13-2023 ambulatory Yehuda HASSAN Facility:[facility] [place] Start: 12-13-2023 End: 12-13-2023 Patient encounter procedure Yehuda HASSAN [facility] [place] Start: 10-26-2023 End: 10-26-2023 ambulatory Yehuda HASSAN Facility:[facility] [place] Start: 10-09-2023 End: 10-09-2023 ambulatory DULCE ALCAZAR Facility:[facility] Start: 03-13-[address] WILLARD SHARMA Facilit y:H1 Start: 03-05-2023 End: 03-06-[address] YEHUDA HASSAN . Facility:[facility] Start: 02-20-2023 End: 02-21-2023 ambulatory DOCTOR CLAYTON Facility:[facility]1 Start: 12-06-2022 ambulatory Nick Richardson II Facility: Start: 12-06-2022 Office outpatient vi sit 25 minutes Connor Anaya Work Phone: [facility] 250 DO Work Phone: Start: 11-20-2022 Rx Renewal Connor nj Work Phone: [facility] 250 DO Work Phone: Start: 11-03-2022 End: [...] Facility:[facility]1 Start: 09-20-2022 End: 09-21-[address] WILLADR SHARMA Facility:[facility] Start: 09-07-2022 End: 09-08-[address] CONNOR ANAYA Facility:[facility] Start: 09-07-2022 Encounter for preprocedural laboratory examination DR LESVIA MCCLAIN [facility] Start: 09-05-2022 End: 09-05-2022 Patient encounter procedure Yehuda HASSAN [facility] Start: 09-01-2022 End: 09-02-[address] CONNOR ANAYA Facility:[facility] Start: 09-01-2022 End: 09-02-2022 Encounter for preprocedural laboratory examination DR CONNOR ANAYA Facility:[facility] Start: 08-31-2022 End: 09-01-[address] CONNOR ANAYA Facility:[facility]1 Start: 08-22-2022 Rx Renewal Connor nj Work Phone: [facility] 250 DO Work Phone: Start: 08-22-2022 End: 08-23-[address] CONNOR ANAYA Facility:[facility] Start: 08-17-2022 End: 08-18-[address] CONNOR ANAYA Facility:[facility] Start: 08-11-2022 End: 08-11-2022 Lab Drop off DORA ALCAZAR [facility] Start: 08-11-2022 End: 08-11-2022 Patient encounter procedure DORA ALCAZAR [facility] Start: 08-07-2022 End: 08-08-[address] WILLARD SHARMA Facility:[facility]1 Start: 08-01-2022 End: 08-02-[address] WILLARD SHARMA Facility:[facility]1 Start: 07-17-2022 End: 07-18-[address] WILLARD SHARMA Facility:[facility]1 Start: 07-12-2022 End: 07-13-[address] WILLARD SHARMA Facility:[facility] Start: 06-30-2022 End: 07-01-[address] WILLARD SHARMA Facility:[facility]1 Start: 06-30-2022 End: 06-30-2022 Patient encounter procedure Yehuda HASSAN [facility] Start: 06-26-2022 End: 06-27-[address] [...] sit 25 minutes Connor Anaya Work Phone: [facility] 250 DO Work Phone: Start: 03-22-2022 End: 03-23-[address] WILLARD SHARMA Facility:H1 Start: 01-31-2022 ambulatory Connor Anaya Facility: Start: 12-07-2021 Rx Renewal Connor Tavares ng Work Phone: [facility] 250 DO Work Phone: Start: 08-16-2021 Office outpatient vi sit 15 minutes Connor Tavaresng Work Phone: [facility] 600 DO Work Phone: Imaging result normal Connor Butler urlong Work Phone: [facility] 250 DO Work Phone: Patient encounter status Connor Anaya Work Phone: [facility] 600 DO Work Phone: Procedures Date Procedure [...] Td Vaccines (5 - Td or Tdap) [facility] [employer] [facility] Start: 02-20-2033 DTaP,Tdap and Td Vaccines (6 - Td or Tdap) DTaP,Tdap and Td Vaccines (6 - Td or Tdap) [facility] Start: 02-20-2033 DTaP/Tdap/Td Vaccine s (3 - Td or Tdap) DTaP/Tdap/Td Vaccines (3 - Td or Tdap) [facility] Start: 12-13-2025 Screening for malignant neoplasm of colon Colon Cancer Screening 5 Year Sigmoidoscopy [facility] Comment on above: Postponed from 04/28 (Not Indicated) Start: 11-26-2025 End: 11-26-2025 Patient encounter procedure 11/26/2025 1:40 PM EST [facility] [address] [place] [address] [facility] Internal [facility] - Family [facility] Start: 11-25-2025 Adult BMI Screening Adult BMI Screen ing [facility] Start: 11-25-2025 Depression Screening Depression Scre ening [facility] Start: 11-25-2025 Fall Risk Screening Fall Risk Screen ing [facility] Start: 11-25-2025 Medicare Annual Wellness Visit Medicare Annual Wellness Visit [facility] Start: 11-03-2025 End: 11-03-2025 Patient encounter procedure 11/03/2025 10:00 AM EST Office Visit [facility] [address] [place] [id number] Jr. Lesvia Mcclain, DO [address] [place] [address] [facility] Start: 10-13-2025 Adult BMI Screening Adult BMI Screen ing [facility] Start: 10-13-2025 Depression Screening Depression Scre ening [facility] Start: 10-13-2025 Fall Risk Screening Fall Risk Screen ing [facility] Start: 10-13-2025 Tobacco Screening Tobacco Screening [facility] Start: 08-27-2025 End: 08-27-2025 Patient encounter procedure 08/27/2025 11:20 AM EDT Office Visit [facility] [address] [place] [address] Carmen Lopez MD [address] [facility] [address], [address] [place] [address] [facility] Start: 08-18-2025 Adult BMI Screening Adult BMI Screen ing [facility] Start: 08-18-2025 Depression Screening Depression Scre ening [facility] Start: 08-18-2025 Fall Risk Screening Fall Risk Screen ing [facility] Start: 08-18-2025 Tobacco Screening Tobacco Screening [facility] Start: 08-05-2025 Screening for malignant neoplasm of breast Mammogram [facility] Start: 03-25-2025 End: 03-25-2025 Patient encounter procedure 03/25/2025 1:00 PM EDT Office Visit [facility] [address] [place] [phone] Jr. Lesvia Mcclain, DO [address] [place] [address] [facility] Start: 02-17-2025 Adult BMI Follow Up Plan Adult BMI Follow Up Plan [facility] Start: 02-17-2025 Adult BMI Screening Adult BMI Screen ing [facility] Start: 02-17-2025 Depression Screening Depression Scre ening [facility] Start: 02-17-2025 Fall Risk Screening Fall Risk Screen ing [facility] Start: 02-17-2025 Tobacco Screening Tobacco Screening [facility] Start: 02-16-2025 End: 02-16-2025 Patient encounter procedure 02/16/2025 9:00 AM EDT [facility] [address] [place] [address] Connor Anaya, DO [address], [place] [address] [facility] - Family [facility] Start: 01-19-2025 End: 01-19-2025 Patient encounter procedure 01/19/2025 10:30 AM EDT [facility] [address] [place] [address] Connor Anaya, DO [address], [place] [address] [facility] - Family Medicine Start: 11-04-2024 End: 11-04-2024 Patient encounter procedure 11/04/2024 11:00 AM EST Office Visit [facility] [address] [place] [phone] Jr. Lesvia Mcclain, DO [address] [place] [address] [facility] Start: 08-28-2024 End: 08-28-2024 Patient encounter procedure 08/28/2024 10:40 AM EDT Office Visit [place] [address] [place] [address] Carmen Lopez MD [address] [facility] 2, [address] [place], [place] [phone] [facility] Start: 08-18-2024 End: 08-18-2024 Patient encounter procedure 08/18/2024 10:30 AM EDT [facility] - Family Medicine [address] [place] [address] Connor Anaya, [address], [place] [address] [facility] - [facility] Start: 07-26-2024 Screening for malignant neoplasm of breast Mammogram [facility] Start: 07-23-2024 Adult BMI Screening Adult BMI Screen ing [facility] Start: 07-23-2024 Depression Screening Depression Scre ening [facility] Start: 07-23-2024 Tobacco Screening Tobacco Screening [facility] Start: 06-29-2024 COVID-19 Vaccine ( season) COVID-19 Vaccine ( season) [facility] Start: 06-29-2024 COVID-19 Vaccine ( season) COVID-19 Vaccine () [facility] Start: 06-29-2024 COVID-19 Vaccine (9 - 2023-24 season) COVID-19 Vaccine () [facility] Start: 06-29-2024 COVID-19 Vaccine ( season) COVID-19 Vaccine () [facility] Start: 06-29-2024 Influenza vaccination [facility] Start: 06-24-2024 End: 06-24-2024 Patient encounter procedure 06/24/2024 10:40 AM EDT Office Visit [facility] Internal Medicine - Family Medicine [address] [place] [address] [facility] Internal Medicine - Family Medicine Start: 06-21-2024 Fall Risk Screening Fall Risk Screen ing [facility] Start: 06-21-2024 Medicare Annual Wellness Visit Medicare Annual Wellness Visit [facility] Start: 03-17-2024 End: 03-17-2024 Clinical Support 03/17/2024 7:30 PM EDT Clinical Support [facility] [address] [place] [phone] Connor Anaya DO [address], [facility] [place] [address] [facility] Start: 03-01-2024 COVID-19 Vaccine ( season) COVID-19 Vaccine () [facility] Start: 02-18-2024 End: 02-18-2024 Patient encounter procedure 02/18/2024 9:45 AM EDT Office Visit [facility] Internal Medicine - Family Medicine [address] [place] [address] Connor Anaya DO [address], [place] [address] [facility] Internal Medicine - Family Medicine Start: 01-29-2024 FUV, Provider: Nick Richardson, Status: Pen, Time: 11:20 AM FUV, Provider: Nick Richardson, Status: Pen, Time: 11:20 AM -[facility] 250 DO Work Phone: Start: 06-29-2023 COVID-19 Vaccine ( season) COVID-19 Vaccine ( season) [facility] Start: 12-06-2022 FUV, Provider: Nick Richardson, Status: Pen, Time: 1:10 PM FUV, Provider: Nick Richardson, Status: Pen, Time: 1:10 PM [facility] 250 DO Work Phone: Start: 01-31-2022 FUV, Provider: Nick Sarkar, Status: Pen, Time: 2:20 PM FUV, Provider: Nick Sarkar, Status: Pen, Time: 2:20 PM -[facility] 250 DO Work Phone: Start: 2010 RSV High Risk: (Elderly (60+) or Population) (1 - Risk 60-74 years 1-dose series) RSV High Risk: (Elderly (60+) or Population) (1 - Risk 60-74 years 1-dose series) [facility] Start: 2010 RSV patient s and/or patients aged 60+ years (1 - 1-dose 60+ series) RSV patients and/or patients aged 60+ years (1 - 1-dose 60+ series) [facility] Start: 1995 Screening for malignant neoplasm of colon Colon Cancer Screening 5 Year Sigmoidoscopy [facility] Start: 1968 Adult BMI Follow Up Plan Adult BMI Follow Up Plan [facility] Start: 1968 Diabetes mellitus screening Diabetes Screening [facility] Start: 1968 Diabetic foot examination Diabetic Foot Exam [facility] Start: 1968 Hepatitis C screening Hepatitis C Sc [facility] Start: 1950 Glaucoma screening Diabetic Op hthalmology Exam [facility] Start: 1950 Lipid panel Lipid Panel [facility] Start: 1950 Medicare Annual Wellness Visit Medicare Annual Wellness Visit (AWV) [facility] Start: 1950 Screening for malignant neoplasm of colon [facility] Start: 1950 Screening for osteoporosis Bone Density Scan [facility] Start: 1950 Thyroid stimulating hormone measurement TSH Level [facility] End: 02-17-2025 Home sleep study Home sleep study Sleep Center Routine Sleep apnea, unspecified type 1 Occurrences starting 02/18/2024 until 02/17/2025 [employer] Work Phone: Comment on above: 1 Occurrences starti ng 02/18/2024 until 02/17/2025 Immunizations Immunization Date Immunization Notes Care Provider [facility] 10-13-2024 Seasonal trivalent influenza vaccine, adjuvanted, preservative free Connorwandy Anaya DO Work Phone: [facility] 10-13-2024 Immunization, In Clinic,; Translations: [Drug or medicament (substance)] Connor Anaya DO Work Phone: [employer] 11-01-2023 Influenza, High-dose , Quadrivalent Connor Lewisreggie DO [facility] 11-01-2023 influenza virus vacc ine, unspecified formulation Connor Jaclyn DO Work Phone: [facility] 02-20-2023 tetanus toxoid, redu mariano diphtheria toxoid, and acellular pertussis vaccine, adsorbed Yehuda HASSAN [facility] 10-15-2022 Fluzone High-Dose Quadrivalent 0.7 ML Intramuscular Suspension Prefilled Syringe Connor Anaya Work Phone: [facility] 250 DO Work Phone: 10-15-2022 influenza virus vacc ine, unspecified formulation Yehuda HASSAN [facility] 10-15-2022 influenza, high dose seasonal, preservative-free Nick Richardson MD Work Phone: [facility] Work Phone: 04-29-2022 Comirnaty 30 MCG/0.3 ML Intramuscular Suspension Connor Anaya Work Phone: [facility] 250 DO Work Phone: 04-29-2022 COVID-19, mRNA, LNP- S, PF, 100mcg/0.5mL Dose Connor Anaya DO Work Phone: [facility] 04-29-2022 SARS-COV-2 (COVID-19 ) Vaccine, Unspecified Connor Anaya DO Work Phone: [facility] 04-29-2022 SARS-CoV-2 mRNA ([id number]) vaccine Yehuda HASSAN [facility] 09-08-2021 influenza virus vacc ine, unspecified formulation Yehuda HASSAN [facility] 08-29-2021 Fluzone High-Dose Quadrivalent 0.7 ML Intramuscular Suspension Prefilled Syringe Connor Anaya Work Phone: [facility] 250 DO Work Phone: 08-29-2021 influenza virus vacc ine, unspecified formulation Yehuda HASSAN [facility] 08-29-2021 influenza, high dose seasonal, preservative-free Nick Richardson MD Work Phone: [facility] Work Phone: 08-29-2021 Pfizer-BioNTech COVI D-19 Vacc 30 MCG/0.3ML Intramuscular Suspension Connor Anaya Work Phone: [facility] 12-23-2020 Pfizer-BioNTech COVI D-19 Vacc 30 MCG/0.3ML Intramuscular Suspension Connor G Furlong Work Phone: [facility] 12-01-2020 Pfizer-BioNTech COVI D-19 Vacc 30 MCG/0.3ML Intramuscular Suspension Connor G Furlong Work Phone: [facility] 09-13-2020 pneumococcal polysaccharide vaccine, 23 valent Connor G Furlong Work Phone: [facility] 09-03-2020 influenza virus vacc ine, unspecified formulation Needle [facility] 09-03-2020 influenza, high dose seasonal, preservative-free Connor Furlong DO Work Phone: [facility] 09-03-2020 influenza, injectabl e, quadrivalent, contains preservative [facility] Work Phone: 08-29-2020 influenza virus vacc ine, unspecified formulation Needle [facility] 08-29-2020 influenza, high dose seasonal, preservative-free Connor G Furlong [facility] Work Phone: 08-29-2020 influenza, injectabl e, quadrivalent, contains preservative Connro Furlong DO Work Phone: [facility] 08-29-2020 pneumococcal polysaccharide vaccine, 23 valent Connor G Furlong Work Phone: [facility] 08-11-2020 influenza virus vacc ine, unspecified formulation Needle [facility] 08-11-2020 influenza, seasonal, injectable Connor G Furlong Work Phone: [facility] 600 DO Work Phone: 07-29-2020 influenza virus vacc ine, unspecified formulation Yehuda HASSAN [facility] 07-29-2020 influenza, seasonal, injectable Connor G Furlong Work Phone: [facility] 250 DO Work Phone: 09-02-2019 influenza virus vacc ine, unspecified formulation Yehuda HASSAN [facility] 09-02-2019 influenza, high dose seasonal, preservative-free Connor G Furlong Work Phone: [facility] 600 DO Work Phone: 08-29-2019 influenza virus vacc ine, unspecified formulation Connor G Furlong Work Phone: [facility] 08-29-2019 influenza, seasonal, injectable Connor Furlong DO Work Phone: [facility] 08-11-2019 influenza virus vacc ine, unspecified formulation Yehuda HASSAN [facility] 06-17-2019 zoster vaccine recombinant Connor G Furlong Work Phone: [facility] 05-29-2019 zoster vaccine recombinant Connor G Furlong Work Phone: [facility] 04-15-2019 zoster vaccine recombinant Connor G Furlong Work Phone: [facility] 03-29-2019 zoster vaccine recombinant Connor G Furlong Work Phone: [facility] 08-29-2018 influenza virus vacc ine, unspecified formulation [facility] G Furlong [facility] Work Phone: 09-27-2017 influenza virus vacc ine, unspecified formulation Yehuda HASSAN [facility] 09-27-2017 Influenza, injectabl e, Madin Nelson Canine Kidney, preservative free, quadrivalent Connor G Furlong [facility] Phone[facility] DO Work Phone: 09-26-2017 influenza virus vacc ine, unspecified formulation [facility] G [facility] Work Phone: 10-19-2016 influenza virus vacc ine, unspecified formulation Yehuda HASSAN [facility] 10-19-2016 seasonal influenza, intradermal, preservative free Connor G Furlong [facility] Phone: [facility] DO Work Phone: 10-06-2016 influenza virus vacc ine, unspecified formulation Yehuda HASSAN [facility] 10-06-2016 influenza, seasonal, injectable, preservative free Connor G Furlong Work Phone: [facility] 600 DO Work Phone: 04-10-2016 pneumococcal conjuga te vaccine, 13 valent Connor G Furlong Work Phone: [facility] 04-06-2016 pneumococcal conjuga te vaccine, 13 valent Yehuda HASSAN [facility] 08-07-2014 influenza virus vacc ine, unspecified formulation Connor Marinelli Furlong Work Phone: [facility] 250 DO Work Phone: 08-07-2014 Influenza, High-dose , Quadrivalent Connor Furlong DO Work Phone: [facility] 08-07-2014 influenza, unspecifi ed formulation Yehuda HASSAN [facility] 07-29-2014 influenza virus vacc ine, unspecified formulation Connor Marinelli Furlong Work Phone: [facility] 250 DO Work Phone: 07-29-2014 pneumococcal polysaccharide vaccine, 23 valent Connor G Furlong Work Phone: [facility] 10-02-2013 pneumococcal conjuga te vaccine, 13 valent Connor G Furlong Work Phone: [facility] 02-14-2013 zoster vaccine, live Connor Marinelli Furlong Work Phone: [facility] 10-29-2012 influenza virus vacc ine, unspecified formulation Connor Marinelli Furlong Work Phone: [facility] 250 DO Work Phone: 10-29-2012 pneumococcal polysaccharide vaccine, 23 valent Connor G [facility]: [facility] DO Work Phone: 10-29-2010 pneumococcal polysaccharide vaccine, 23 valent Connor Furlong DO Work Phone: [facility] 02-21-2010 pneumococcal polysaccharide vaccine, 23 valent Connor G Furlong Work Phone: [facility] 02-21-2010 tetanus toxoid, redu mariano diphtheria toxoid, and acellular pertussis vaccine, adsorbed Connor Anaya Work Phone: [facility] 12-20-2009 novel influenza-H1N1 -09, preservative-free, injectable Connor Tavaresng Work Phone: [facility] 600 DO Work Phone: 11-29-2009 novel influenza-H1N1 -09, preservative-free, injectable Connor Tavaresng Work Phone: [facility] 250 DO Work Phone: 09-06-1999 TD(adult) unspecifie d formulation; Translations: [Td(adult) unspecified formulation] Connor Anaya Work Phone: [facility] 09-06-1999 tetanus and diphther ia toxoids, adsorbed, preservative free, for adult use (2 Lf of tetanus toxoid and 2 Lf of diphtheria toxoid) Connor Anaya DO Work Phone: [facility] influenza virus vacc ine, unspecified formulation Connor Anaya Work Phone: [facility] 250 DO Work Phone: Comment on above: 2010Jul 2012 pneumococcal polysaccharide vaccine, 23 valent Connor Anaya Work Phone: [facility] 250 DO Work Phone: Comment on above: 2010 Payers Date Payer Category Payer Medicare (Managed Care) [facility] [place] [id number] 5 2024 Medicare [id number] 2023 Private Health Insurance [id number] .[id number] .[id number] 5 2015 Managed Care Other (unspecified) [facility] [id number] .[id number] 2015 Medicare [id number]. 1.13.647 .[id number] 2015 Miscellaneous or Other [facility] 1.2.840.526298.1.13.647 .[id number] 5 2015 Unknown 2015 Unknown [id number] 1959 Medicare [id number] 1959 Unknown [id number] 1950 Unknown [id number] 2.16.840.1.377520.3.579 .2.356 1950 Unknown [id number] 2.16.840.1.895004.3.579 .2.356 1950 Unknown [id number] 2.16.840.1.063949.3.579 .2.356 1950 Unknown [id number] 2.16.840.1.238432.3.579 .2.593 1950 Unknown [id number] 2.16.840.1.539269.3.579 .2.593 1950 Unknown [id number] 2.16.840.1.555812.3.579 .2.593 1950 Unknown [id number] 2.16.840.1.027542.3.579 .2.593 1950 Unknown [id number] 2.16.840.1.846567.3.579 .2.593 1950 Unknown [id number] 2.16.840.1.360708.3.579 .2.593 1950 Unknown [id number] 2.16.840.1.313971.3.579 .2.593 1950 Unknown [id number] 2.16.840.1.557806.3.579 .2.593 1950 Unknown [id number] 2.16.840.1.344645.3.579 .2.593 1950 Unknown [id number] 2.16.840.1.379876.3.579 .2.593 1950 Unknown [id number] 2.16.840.1.796495.3.579 .2.593 1950 Unknown [id number] 2.16.840.1.528841.3.579 .2.593 1950 Unknown [id number] 2.16.840.1.615270.3.579 .2.593 1950 Unknown [id number] 2.16.840.1.449371.3.579 .2.593 1950 Unknown [id number] 2.16.840.1.139645.3.579 .2.593 1950 Unknown [id number] 2.16.840.1.819972.3.579 .2.593 1950 Unknown [id number] 2.16.840.1.306736.3.579 .2.593 1950 Unknown [id number] 2.16.840.1.435155.3.579 .2.593 1950 Unknown [id number] 2.16.840.1.565894.3.579 .2.593 1950 Unknown [id number] 2.16.840.1.618349.3.579 .2.593 1950 Unknown [id number] 2.16.840.1.764202.3.579 .2.593 1950 Unknown [id number] 2.16.840.1.024184.3.579 .2.593 1950 Unknown [id number] 2.16.840.1.442873.3.579 .2.593 1950 Unknown [id number] 2.16.840.1.538959.3.579 .2.593 1950 Unknown [id number] 2.16.840.1.902006.3.579 .2.593 1950 Unknown [id number] 2.16.840.1.525337.3.579 .2.593 1950 Unknown [id number] 2.16.840.1.224635.3.579 .2.593 1950 Unknown [id number] 2.16.840.1.227779.3.579 .2.593 1950 Unknown [id number] 2.16.840.1.456335.3.579 .2.593 1950 Unknown [id number] 2.16.840.1.572062.3.579 .2.593 1950 Unknown [id number] 2.16.840.1.003087.3.579 .2.593 1950 Unknown [id number] 2.16.840.1.759690.3.579 .2.593 1950 Unknown [id number] 2.16.840.1.957390.3.579 .2.593 1950 Unknown [id number] 2.16.840.1.148713.3.579 .2.593 1950 Unknown [id number] 2.16.840.1.266976.3.579 .2.593 1950 Unknown [id number] 2.16.840.1.838811.3.579 .2.727 1950 Unknown [id number] 2.16.840.1.339767.3.579 .2.727 1950 Unknown [id number] 2.16.840.1.466605.3.579 .2.727 1950 Unknown [id number] 2.16.840.1.512383.3.579 .2.727 1950 Unknown [id number] 2.16.840.1.798945.3.579 .2.727 1950 Unknown [id number] 2.16.840.1.166971.3.579 .2.727 1950 Unknown [id number] 2.16.840.1.783185.3.579 .2.727 1950 Unknown [id number] 2.16.840.1.443317.3.579 .2.727 1950 Unknown [id number] 2.16.840.1.268057.3.579 .2727 1950 Unknown [id number] 2.16.840.1.969601.3.579 .2.1286 1950 Unknown [id number] 2.16.840.1.018433.3.579 .2.1286 1950 Unknown [id number] 2.16.840.1.782861.3.579 .2.727 1950 Unknown [id number] 2.16.840.1.289298.3.579 .2.727 1950 Unknown [id number] 2.16.840.1.471113.3.579 .2.727 1950 Unknown [id number] 2.16.840.1.496781.3.579 .2.1244 1950 Unknown [id number] 2.16.840.1.201874.3.579 .2.1243 1950 Unknown [id number] 2.16.840.1.444465.3.579 .2.1243 1950 Unknown [id number] 2.16.840.1.241247.3.579 .2. 1950 Unknown [id number] 2.16.840.1.835430.3.579 .2.9 1950 Unknown [id number] 2.16.840.1.930312.3.579 .2.1258 1950 Unknown [id number] 2.16.840.1.060359.3.579 .2.9 1950 Unknown [id number] 2.16.840.1.509686.3.579 .2.1258 1950 Unknown [id number] 2.16.840.1.506921.3.579 .2.1259 1950 Unknown [id number] 2.16.840.1.913518.3.579 .2.128 1950 Unknown [id number] 2.16.840.1.581872.3.579 .2.128 1950 Unknown [id number] 2.16.840.1.246677.3.579 .2.128 1950 Unknown [id number] 2.16.840.1.904486.3.579 .2.1286 Social History Date Type Detail Facility Start: 02-20-2023 End: 03-06-2024 Never a smoker Never a smoker -[facility] 600 DO Work Phone: Start: 12-28-2021 End: 11-13-2022 Tobacco smoking status Never smoked tobacco (finding) [facility] Tobacco smoking status Never [facility] [place] Start: 02-20-2023 End: 03-06-2024 Sex Assigned At Female [facility] Start: 11-13-2022 End: 08-17-2023 Tobacco use and exposure Smokeless tobacco non-user [facility] Start: 03-06-2024 Alcoholic beverage intake Life time non-drinker (finding) [facility] Work Phone: Start: 1950 Sex assigned at Not on file P [facility] Start: 02-25-2024 End: 08-28-2024 Exposure to SARS-CoV-2 (event) Not sure [facility] Start: 08-18-2024 End: 10-13-2024 Alcoholic beverage intake Ex-drinker (finding) [facility] Do you belong to any clubs or organizations such as episcopalian groups, unions, fraternal or athletic groups, or school groups? No [facility] Are you now , , , , never or living with a partner? [facility] How often to you hav e a drink containing alcohol? Never [facility] Do you feel stress - tense, restless, nervous, or anxious, or unable to sleep at night because your mind is troubled all the time - these days [OSQ] Only a little [facility] Start: 06-02-2015 Sex Female (finding) [facility] Functional Status Date Assessment Result Facility 07-15-2024 Functional Status N/A [facility] 08-24-2022 Functional Status N/A [facility] 06-30-2022 Functional Status N/A [facility] Clinical Notes 06-30-2022 to 11-25-2024 Connor [...] Do you have a durable power of securities attorney?: Yes Cognitive Screening Do you have [...] year (around 11/25/2025). documented in this encounter [facility] 11-04-2024 History of Present illness Narrative Images [...] Other Reaction(s): Unknown Ciprofloxacin Rash and Unknown [place] Oil Diarrhea Milk (Cow) Other Increased Mucus [...] SILVER ADULT 50+ PO) as directed Orally Towanda-3 Fatty Acids (OMEGA-3 FISH OIL PO) Oral [...] Use: Not At Risk (02/20/2023) [facility] AUDIT-C Frequency of Alcohol Consumption: Never [...] requiring urgent evaluation. documented in this encounter [facility] 10-17-2024 Note [place] [facility] Note Reason for cardiology consult: Chief Complaint: Occasional palpitations HPI: Miky Fuentes is a 74 y.o. female with history of paroxysmal atrial fibrillation, nonischemic cardiomyopathy, asymptomatic sinus bradycardia, hypertension, hyperlipidemia, obesity status post bariatric surgery, hypothyroidism. She was followed previously by [facility] cardiology in [place]. 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 [facility] 10-13-2024 History of Present illness Narrative Subjective [...] from weight loss. documented in this encounter [facility] 09-28-2024 Miscellaneous Notes Contract: [id number] [facility] Suki travis critical EKG report Relayed info to Dr Anaya on cell and transferred documented in this encounter [facility] 09-28-2024 Telephone encounter Note Contract: [id number] Suki travis critical EKG report [facility] 09-28-2024 Telephone encounter Note Relayed info to Dr Anaya on cell and transferred [facility] 09-03-2024 History of Present illness Narrative Patient has severe OA of the knee. Handicap parking placard printed documented in this encounter [facility] 09-02-2024 History of Present illness Narrative [...] KNEE TODAY EPIC 09/02/24 XRAYS 03/26/24 IN [facility] NO MRI NO MDP / [...] SILVER ADULT 50+ PO) as directed Orally Towanda-3 Fatty Acids (OMEGA-3 FISH OIL PO) Oral [...] Use: Not At Risk (02/20/2023) Received from [facility], [facility] AUDIT-C Frequency of Alcohol Consumption: Never Average [...] requiring urgent evaluation. documented in this encounter [facility] 09-02-2024 Miscellaneous Notes Patient called to renew her handicap placard. 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 Okay, it is ready documented in this encounter [facility] [employer] [facility] 09-02-2024 Telephone encounter Note Patient called to renew her handicap placard. 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 [email or web address] 09-02-2024 Telephone encounter Note Okay, it is ready [email or web address] 08-28-2024 History of Present illness Narrative [...] once daily., Disp: 90 tablet, Rfl: 3 vlfybzcy-uet-jwzp-FA-vit K-lut (Centrum Silver Women) 8 mg iron-400 mcg-50 mcg tablet, Take 1 tablet by mouth once daily., Disp: , Rfl: omega-3 fatty acids-fish oil (One-Per-Day Towanda-3) 684-1,200 mg capsule, Take 1 capsule (1,200 [...] discussion and plan. documented in this encounter [facility] Work Phone: 08-28-2024 Instructions Hollie Gleason LPN [...] up 7 months documented in this encounter [facility] Work Phone: 08-18-2024 History of Present illness [...] gradually lost weight documented in this encounter [facility] [employer] 07-29-2024 Evaluation + Plan note Diagnostic Tests PendingUroVysion Fish and Urine Cyto ([facility]) 07/29/24 [facility] 07-15-2024 Hospital Discharge instructions Patient Education 07/15/2024 15:39:15 Kidney Stones, Nowq-di-Okhi Kidney Stones Kidney stones are rock-like masses [...] Follow these instructions at home: Medicines Take zcvl-cfw-bquaoyk and prescription medicines only as told by [...] provider. Document Revised: 06/08/2023 Document Reviewed: 06/08/2023 [employer] Patient Education 2023 Errund. 07/15/2024 15:39:14 Hematuria, Adult Hematuria, Adult Hematuria [...] Follow these instructions at home: Medicines Take plvx-qzi-ntqpnaf and prescription medicines only as told by [...] or the blood stops without treatment. Take zlqj-ztz-xgicmaj and prescription medicines only as told by your health care provider. Drink enough fluid to keep your urine pale yellow. This information is not intended to replace advice given to you by your health care provider. Make sure you discuss any questions you have with your health care provider. Document Revised: 06/15/2021 Document Reviewed: 06/15/2021 [employer] Patient Education 2023 Errund. Follow Up Care 07/03/2024 12:40:23 With:MO HAYDEN, Yehuda Haddad, URL Address: [address] [place], [place] [id number]- When: Unknown Comments:pending review of imaging [facility] 07-15-2024 Note Patient Education Urology Kidney [...] these instructions at home: Medicines ? Take gbby-quc-myjqmdf and prescription medicines only as told by [...] provider. Document Revised: 06/08/2023 Document Reviewed: 06/08/2023 [employer] Patient Education ? 2023 Errund. Hematuria, Adult Hematuria is blood in the [...] identify the cause (more content not included)... [facility] 07-15-2024 Evaluation + Plan note Diagnostic Tests PendingUrine Cytology ([facility]) 07/15/24 [facility] 03-06-2024 History of Present illness Narrative [...] once daily., Disp: 90 tablet, Rfl: 3 jnircvdj-lgs-veih-FA-vit K-lut (Centrum Silver Women) 8 mg iron-400 mcg-50 mcg tablet, Take 1 tablet by mouth once daily., Disp: , Rfl: omega-3 fatty acids-fish oil (One-Per-Day Towanda-3) 684-1,200 mg capsule, Take 1 capsule (1,200 [...] discussion and plan. documented in this encounter [facility] Work Phone: 03-06-2024 Instructions Ivett Mcpherson LPN [...] of your visit. documented in this encounter [facility] Work Phone: 02-20-2024 Miscellaneous Notes 02/17 received HST order 02/19 Scheduled HST at PM 520, 7:30pm Confirmation mailed Routed to Dr. Hussein for approval Medicare/[place] [facility] [place] HST order and 02/17 Furlong notes in epic DIRECT REFFERAL ; NEEDS APPROVAL documented in this encounter [facility] 02-20-2024 Telephone encounter Note 02/17 received HST order 02/19 Scheduled HST at [facility] 520, 7:30pm Confirmation mailed Routed to Dr. Hussein for approval Medicare/[place] [facility] [place] HST order and 02/17 Furlong notes in epic [facility] 02-20-2024 Telephone encounter Note DIRECT REFFERAL ; NEEDS APPROVAL [facility] 02-18-2024 History of Present illness Narrative Subjective [...] (BMI) of 37.0 to 37.9 in adult ([facility]) She is still obese. Diet exercise and weight loss discussed. She would benefit from weight loss. Patient noted to have elevated BMI and the following intervention(s) were applied: encouragement to exercise and prescribed diet education. Other orders - fexofenadine (HANNAH) 180 mg tablet; Take 1 tablet (180 mg total) by mouth in the morning. - pkzim-zq-3-ndj-xxv-nvxuuzw-ast (KRILL OIL) 1,731-973-26-80 mg capsule; Take 1 capsule by mouth in the morning. documented in this encounter [facility] 09-05-2022 Hospital Discharge instructions Patient Education 09/05/2022 [...] [facility] [address], [place] [id number]- Business (1) When:03/05/2023 12:06:31 [facility] 06-30-2022 Hospital Discharge instructions Patient Education 06/30/2022 12:01:44 Kidney Stones, Xpcv-cw-Gntj Kidney Stones Kidney stones are rock-like masses [...] Follow these instructions at home: Medicines Take ddnn-flo-hsqvqll and prescription medicines only as told by [...] 04/02/2009 Document Revised: 03/02/2020 Document Reviewed: 03/02/2020 [employer] Patient Education 2019 Errund. Follow Up Care 12/28/2021 15:15:51 With:Yehuda HASSAN MD, URL Address: [address] [place] [address]- When: Unknown [facility] Evaluation + Plan note Future Appointments Appointment Date:03/02/2023 11:00:00 AM Scheduled Provider:Yehuda HASSAN MD Location:[facility] Appointment Type:URO Office Visit [facility] Evaluation + Plan note Future Appointments Appointment Date:03/02/2023 11:00:00 AM Scheduled Provider:Yehuda HASSAN MD [facility] Appointment Type:URO Office Visit Diagnostic Tests PendingUrine Culture 08/11/22 [facility] Evaluation + Plan note Future Appointments Appointment Date:03/02/2023 11:00:00 AM Scheduled Provider:Yehuda HASSAN MD Location:[facility] Appointment Type:URO Office Visit Diagnostic Tests PendingUroVysion Fish and Urine Cyto ([facility]) 09/05/22 [facility] Evaluation + Plan note Future Appointments Appointment Date:05/16/2024 10:45:00 AM Scheduled Provider:Yehuda HASSAN MD Location:[facility] Appointment Type:URO Office Visit [facility] Evaluation + Plan note Future Appointments Appointment Date:05/20/2024 11:00:00 AM Scheduled Provider:RAAD Back APRN, [place] X Location:[facility] Appointment Type:URO Office Visit [facility] Evaluation + Plan note Future Appointments Appointment Date:06/10/2024 03:00:00 PM Scheduled Provider:RAAD Back APRN, [place] X Location:[facility] Appointment Type:URO Office Visit [facility] Evaluation + Plan note Future Appointments Appointment Date:07/01/2024 02:30:00 PM Scheduled Provider:RAAD Back APRN, [place] X Location:[facility] Appointment Type:URO Office Visit [facility] Evaluation note Diagnosis Mixed hyperlipidemia- Primary Paroxysmal atrial fibrillation (Multi) Atrial fibrillation Non-ischemic cardiomyopathy (Multi) Other primary cardiomyopathies Never smoked tobacco BMI 36.0-36.9,adult Hyperlipidemia, unspecified hyperlipidemia type documented in this encounter [facility] Work Phone: Evaluation note* Diagnosis Paroxysmal atrial fibrillation (Multi)- Primary Atrial fibrillation Non-ischemic cardiomyopathy (Multi) Other primary cardiomyopathies Mixed hyperlipidemia Sinus bradycardia Other specified cardiac dysrhythmias High risk medication use Class 2 obesity BMI 35.0-35.9,adult Never smoked tobacco documented in this encounter [facility] Work Phone: Evaluation note* Diagnosis Arthritis of right knee- Primary Acute pain of right knee Chondromalacia, patella, right documented in this encounter [facility]* Diagnosis Arthritis of right knee- Primary Acute pain of right knee Chondromalacia, patella, right documented in this encounter [facility]* Diagnosis Proteinuria, unspecified [facility] Diagnosis Medicare annual wellness visit, subsequent- Primary Screening for depression 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 Diagnosis Nonsustained ventricular tachycardia [...] 35.9 in adult [facility] illness NarrativePatient returns in follow-up of problems as noted. In the interim she is done well. She has none of the symptoms of cardiomyopathy that preceded her original diagnosis of heart failure. With guideline directed therapy in the sikhism of maintenance of sinus rhythm her symptoms [...] and weight loss. [facility] [employer] DO Work Phone: History of Present illness [...] and weight loss. [facility] [employer] 250 DO Work Phone: Hospital course Narrative No data available for this section [facility] Hospital Discharge instructions No data available for this section [facility] InstructionsNot on filedocumented in this encounter [...] available for this section [facility] Chief Complaint * I am doing [...] DO [address], [place] [address] Referral ID Status Reason Start Date Expiration Date V isits Requested Visits Authorized [id number] Pending Review 02/18/2024 02/17/2025 1 1 Specialty Diagnoses / Procedures Referred By Contac t Referred To Contact Diagnoses Paroxysmal atrial fibrillation (Multi) Procedures ECG 12 Lead Nick Richardson MD [address] [facility] 2, [address] [address] Referral ID Status Reason Start Date Expiration Date V isits Requested Visits Authorized [id number] Authorized 03/06/2024 03/06/2025 1 1 Specialty Diagnoses / Procedures Referred By Contac t Referred To Contact Cardiology Diagnoses Non-ischemic cardiomyopathy (Multi) Procedures Follow Up In Cardiology Nick Richardson MD 703 [facility] 2, [address] [address] Carmen Lopez MD 703 [facility] 2, [address] [address] Referral ID Status Reason Start Date Expiration Date V isits Requested Visits Authorized [id number] Authorized 03/06/2024 03/06/2025 1 1 Additional Source Comments INFORMATION SOURCE (unrecogn ized section and content) DATE CREATED AUTHOR 06/26/2022 [facility] DATE CREATED AUTHOR AUTHOR'S ORGANIZ ATION 12/07/2022 [facility] DATE CREATED AUTHOR AUTHOR'S ORGANIZ ATION 12/07/2022 [facility] DATE CREATED AUTHOR AUTHOR'S ORGANIZ ATION 03/09/2023 [facility] DATE CREATED AUTHOR AUTHOR'S ORGANIZ ATION 07/17/2024 [facility] DATE CREATED AUTHOR AUTHOR'S ORGANIZ ATION 08/20/2024 [facility] DATE CREATED AUTHOR AUTHOR'S ORGANIZ ATION 09/19/2024 [facility] DATE CREATED AUTHOR AUTHOR'S ORGANIZ ATION 09/25/2024 [facility] DATE CREATED AUTHOR AUTHOR'S ORGANIZ ATION 10/18/2024 [facility] DATE CREATED AUTHOR AUTHOR'S ORGANIZ ATION 11/10/2024 [facility] EPIC DATE CREATED AUTHOR AUTHOR'S ORGANIZ ATION 11/27/2024 [facility] DATE CREATED AUTHOR AUTHOR'S ORGANIZ ATION 12/14/2024 [facility] Care Team (unrecognized sect ion and content) Cashier General Relationship Specialty Start Date End Date Connor Anaya DO [address] [place] [address] PCP - General 10/29/19 Cashier General Relationship Specialty Start Date End Date Connor Anaya DO PCP - General 10/29/19 Cashier General Relationship Specialty Start Date End Date Connor Anaya MD [address] [place] [address] PCP - General Family Medicine 03/26/24 Cashier General Relationship Specialty Start Date End Date Connor Anaya MD [address] [place] [address] PCP - General Family Medicine 03/26/24 Cashier General Relationship Specialty Start Date End Date Connor Anaya MD [address], [place] [address] PCP - General Family Medicine 03/26/24 Cashier General Relationship Specialty Start Date End Date Connor Anaya MD [address] [place] [address] PCP - General Family Medicine 03/26/24 Cashier General Relationship Specialty Start Date End Date Connor Anaya DO [address], [place] [address] PCP - General Family Medicine 11/13/22 Desiree Jansen [facility] Nurse - [employer] 07/01/24 Cashier General Relationship Specialty Start Date End Date Connor Anaya DO [address], [place] [address] PCP - General Family Medicine 11/13/22 Yuni Borja [facility] Nurse - [employer] 11/20/24 Cashier General Relationship Specialty Start Date End Date Connor Anaya DO [address] [place] [address] PCP - General Family Medicine 11/13/22 Cashier General Relationship Specialty Start Date End Date Connor Anaya DO [address] [place] [address] PCP - General Family Medicine 11/13/22 Cashier General Relationship Specialty Start Date End Date Connor Anaya DO [address], [place] [address] PCP - General Family Medicine 11/13/22 Cashier General Relationship Specialty Start Date End Date Connor Anaya DO [address], [place] [address] PCP - General Family Medicine 11/13/22 Cashier General Relationship Specialty Start Date End Date Connor Anaya DO [address], [place] [address] PCP - General Family Medicine 11/13/22 Desiree Jansen [facility] Nurse - [employer] 07/01/24 Cashier General Relationship Specialty Start Date End Date Connor Anaya DO [address], [place] [address] PCP - General Family Medicine 11/13/22 Desiree Jansen [facility] Nurse - [employer] 07/01/24 Cashier General Relationship Specialty Start Date End Date Connor Anaya DO [address], [place] [address] PCP - General Family Medicine 11/13/22 Desiree Jansen [facility] Nurse - [employer] 07/01/24 Cashier General Relationship Specialty Start Date End Date DebbiemileConnor nj DO [address], [place] [address] PCP - General Family Medicine 11/13/22 Desiree Jansen [facility] Nurse - [employer] 07/01/24 Cashier General Relationship Specialty Start Date End Date Connor Anaya DO [address], [place] [address] PCP - General Family Medicine 11/13/22 Desiree Jansen [facility] Nurse - [employer] 07/01/24 Reason for Visit (unrecogniz ed section and content) Reason Comments Follow-up 2mo Specialty Diagnoses / Procedures Referred By Contac t Referred To Contact Cardiology Diagnoses Paroxysmal atrial fibrillation (Multi) Procedures Follow Up In Cardiology Nick Richardson MD [address] [place] [address] [address], [address] [address] Referral ID Status Reason Start Date Expiration Date V isits Requested Visits Authorized [id number] Authorized 12/24/2023 12/23/2024 1 1 Reason Comments Follow-up 5m Specialty Diagnoses / Procedures Referred By Contac t Referred To Contact Cardiology Diagnoses Non-ischemic cardiomyopathy (Multi) Procedures Follow Up In Cardiology [facility] [address] [place] [address] 2, [address] [address] Phone: tel: fax: Referral ID Status Reason Start Date Expiration Date V isits Requested Visits Authorized [id number] Authorized 03/06/2024 03/06/2025 1 1 Reason Comments [...] BE BASED ON THE PRIMARY CLINICAL RECORDS. [email or web address]. provides no warranty or guarantee of the accuracy or completeness of information in this document.
--- NOTE | 2025-01-02 17:57 | P.HP_ITS ---
HPI H&P: HPI History of Present Illness Chief complaint: CHEST PAIN Narrative: Patient presented to emergency room with episode of chest pain, pressure type and midsternal, some shortness of breath associated with that, lasted 5 to 7 minutes, resolved on its own is not present at the time of presentation to the emergency room. When I saw patient up in the medical surgical floor, resting comfortably in bed and denied any chest pain Opioid HPI Opioid Management Most Recent Pain and Opioid Data: Last Pain Scale 0 01/02/25 14:26 01/02/25 Last ED Pain Assessment 01/02/25 14:26 Last ORT Total Score 3 01/02/25 17:06 01/02/25 Last ORT Risk Category Low Risk 01/02/25 17:06 01/02/25 Review of Systems ROS Status of ROS 10 or more systems reviewed and unremark able except as noted in history and below [facility] Medical History (Updated 01/02/25 @ 16:18 by VIC Carreon) Bradycardia ?R00.1 - Bradycardia, unspecified (ICD-10) Afib ?I48.91 - Unspecified atrial fibrillation (ICD-10) Arthritis ?M19.90 - Unspecified osteoarthritis, unspecified site (ICD-10) Palpitations ?R00.2 - Palpitations (ICD-10) Extremity edema ?R60.0 - Localized edema (ICD-10) Chronic kidney disease ?N18.9 - Chronic kidney disease, unspecified (ICD-10) Encounter for gastric sleeve procedure ?Z76.89 - Persons encountering health services in other specified c ircumstances (ICD-10) S/P extracorporeal shock wave therapy ?Z98.890 - Other specified postprocedural states (ICD-10) UTI (urinary tract infection) ?N39.0 - Urinary tract infection, site not specified (ICD-10) Urinary urgency ?R39.15 - Urgency of urination (ICD-10) Urinary frequency ?R35.0 - Frequency of micturition (ICD-10) Hydronephrosis ?N13.30 - Unspecified hydronephrosis (ICD-10) Ureteral stone ?N20.1 - Calculus of ureter (ICD-10) Stress incontinence ?N39.3 - Stress incontinence (female) (male) (ICD-10) Nocturia ?R35.1 - Nocturia (ICD-10) Hypothyroidism (acquired) ?E03.9 - Hypothyroidism, unspecified (ICD-10) Hypertension ?I10 - Essential (primary) hypertension (ICD-10) Enterobacter sepsis ?A41.59 - Other Gram-negative sepsis (ICD-10) Diabetes ?E11.9 - Type 2 diabetes mellitus without complications (ICD-10) Cholelithiasis ?K80.20 - Calculus of gallbladder without cholecystitis without obstruction (ICD-10) Anticoagulated ?Z79.01 - care home (current) use of anticoagulants (ICD-10) Hyperlipidemia ?E78.5 - Hyperlipidemia, unspecified (ICD-10) Nonischemic cardiomyopathy ?I42.8 - Other cardiomyopathies (ICD-10) Mixed hyperlipidemia ?E78.2 - Mixed hyperlipidemia (ICD-10) Paroxysmal atrial fibrillation ?I48.0 - Paroxysmal atrial fibrillation (ICD-10) Hematuria ?R31.9 - Hematuria, unspecified (ICD-10) Kidney stones ?N20.0 - Calculus of kidney (ICD-10) Surgical History (Updated 07/28/24 @ 14:17 by Nancy Sanders NP) History of colonoscopy ?Z98.890 - Other specified postprocedural states (ICD-10) S/P ureteral stent placement ?Z96.0 - Presence of urogenital implants (ICD-10) History of hernia repair ?Z98.890 - Other specified postprocedural states (ICD-10) ?Z87.19 - Personal history of other diseases of the digestive system (ICD-10) History of hysterectomy ?Z90.710 - Acquired absence of both cervix and uterus (ICD-10) H/O cystoscopy ?Z98.890 - Other specified postprocedural states (ICD-10) Family History (Updated 10/02/24 @ 15:36 by Elif Arauz) Other Family history of cancer Family history of diabetes mellitus Family history of myocardial infarction Heart disease Social History Within the past year, how often did you have a drink containing alcohol: never Score interpretation: A score less than 3 is consistent with normal alcohol consumption. Smoking status: Never smoker Non-prescribed substance use: denies use Highest level of school completed/degree received: some college, no degree Little interest or pleasure in doing things: not at all Feeling down, depressed, or hopeless: not at all Meds Home Medications and Allergies Home Medications ?Medication ?Instructions ?Recorded ?Confirmed ?Type acetaminophen 650 mg 650 mg PO Q12H PRN pain 07/28/24 01/02/25 History tablet,extended release (Tylenol Arthritis Pain) allopurinol 300 mg tablet 300 mg PO DAILY 07/28/24 01/02/25 History calcium 600 mg-D3 800 unit-mag11 1 tab PO DAILY 07/28/24 01/02/25 History 50 ok-qbso-uudxdr-octavia-s.borat tablet (Caltrate 600-D Plus Minerals) cholecalciferol (vitamin D3) 25 25 mcg PO DAILY 07/28/24 01/02/25 History mcg (1,000 unit) capsule fexofenadine 180 mg tablet 180 mg PO DAILY 07/28/24 01/02/25 History ([facility] All[facility]) glucosam 750 mg-chondroi 100 1 tab PO DAILY 07/28/24 01/02/25 History mg-hyalur 1.65 mg-CF borate 108 mg tablet ([facility] Neo[facility]) krill 1 cap PO DAILY 07/28/24 01/02/25 History ncb-if7-gzh-vzu-xk8-tqe-astax 1,500 mg-165 mg-67.5 mg capsule (Krill Oil ([place] 3 and 6)) lovastatin 10 mg tablet 10 mg PO DAILY 07/28/24 01/02/25 History jljtxjwl-xfxh-qhcl 8 mg-folic 400 1 tab PO DAILY 07/28/24 01/02/25 History mcg-K 50 mcg-lutein 300 mcg tablet ([facility]) rivaroxaban 20 mg tablet (Xarelto) 20 mg PO Q24H 07/28/24 01/02/25 History losartan 50 mg tablet 50 mg PO DAILY #30 tabs 09/30/24 01/02/25 Rx lisinopril 2.5 mg tablet 2.5 mg PO DAILY 10/02/24 01/02/25 History potassium bicarbonate-citric acid 25 meq PO BID 10/02/24 01/02/25 History 25 mEq effervescent tablet (Effer-K) dapagliflozin propanediol 10 mg 10 mg PO DAILY 01/02/25 01/02/25 History tablet (Farxiga) levothyroxine 112 mcg tablet 112 mcg PO DAILY 01/02/25 01/02/25 History Allergies Allergy/AdvReac Type Severity Reaction Status Date / Time ciprofloxacin (From Cipro) Allergy Rash Verified 01/02/25 16:29 corn Allergy Unknown Verified 01/02/25 16:29 Sulfa (Sulfonamide Allergy Rash Verified 01/02/25 16:29 Antibiotics) Exam Constitutional Vital Signs, click to edit/add: Last Vital Signs Temp 97.9 F 01/02/25 17:06 Pulse 52 L 01/02/25 17:06 Resp 16 01/02/25 17:06 BP 131/66 01/02/25 17:06 Pulse Ox 96 01/02/25 17:06 O2 Del Method Room Air 01/02/25 17:06 Documenting provider has reviewed patient's vital signs: yes Common normals: no apparent distress Respiratory Common normals: normal respiratory effort and no retractions Cardio Common normals: regular rhythm Rate: bradycardic GI Common normals: Normal to inspection, nondistended, normoactive bowel sounds present, soft to palpation and non-tender Extremity Common normals: normal to inspection and full ROM Results Labs Labs: Short CBC 01/02/25 Range/Units 14:19 WBC 6.5 (4.0-11.0) 10^3/uL Hgb 8.8 L (12.0-16.0) g/dL Hct 30.4 L (36.0-48.0) % Plt Count 229 (150-450) 10^3/uL BMP 01/02/25 14:19 Sodium 140 Potassium 3.9 Chloride 105 Carbon Dioxide 27.5 BUN 14.0 Creatinine 0.93 Glucose 109 H Calcium 9.6 Liver Function 01/02/25 Range/Units 14:19 Total Bilirubin 0.4 (0.2-1.0) mg/dL AST 14 L (15-37) U/L ALT 16 (14-59) U/L Alkaline Phosphatase 126 H (46-116) U/L Albumin 3.3 L (3.4-5.0) g/dL Assessment and Plan Assessment and Plan (1) Chest pain: (2) Bradycardia: (3) Hypothyroidism (acquired): (4) Nonischemic cardiomyopathy: Plan Admission findings: Bradycardia, elevated blood pressure, EKG without sig nificant EKG changes but patient with chest pain, midsternal, pressure type and shortness of breath Chest pain-bradycardic, concerning for inferior wall ischemia but no changes on EKG, will cycle enzymes, nitro sublingual as needed, place patient on telemetry last stress test in [place] this is some changes on the nuclear portion with anterior inferior wall changes in the LAD and RCA distribution but not reversible Nonischemic cardiomyopathy-continue with home medications Hypertension-continue home medications History of atrial fibrillation-currently sinus bradycardia maintain Xarelto Iron deficiency anemia-monitor daily Admission status: Patient with chest pain that has not resolved, history of ischemic cardiomyopathy, Place patient observation bed is medically necessary treatment likely to span 1 midnight
[2025-01-02 18:39] LABS: Troponin I High Sensitivity 20.6 pg/mL (4.0-51.3)
[2025-01-02] MEDS: RIVAROXABAN 10 MG TABLET 20 MG PO (18:50)
[2025-01-02] MEDS: ATORVASTATIN CALCIUM 10 MG TABLET PO (21:00)
[2025-01-02] MEDS: POTASSIUM BICARBONATE/CIT 25 MEQ TABLET EFF PO (21:00)
[2025-01-02 21:23] LABS: Troponin I High Sensitivity 22.2 pg/mL (4.0-51.3)
[2025-01-03] VITALS (9 sets, daily range): BP systolic 114; BP diastolic 55; PULSE 40–48; TEMP 36.6; O2SAT 94–97
[2025-01-03] MEDS: LEVOTHYROXINE SODIUM 112 MCG TABLET PO (06:25)
[2025-01-03 06:55] LABS: Basophils Percent Auto 0.9 % (0.2-2.0); Eosinophils Absolute Auto 0.2 10^3/uL (0.0-0.7); Eosinophils Percent Auto 4.3 % (0.9-7.0); Hematocrit 27.1 % (36.0-48.0); Hemoglobin 7.9 g/dL (12.0-16.0); Immature Granulocytes Abs Auto 0.01 10^3/uL (0.00-0.03); Immature Granulocytes Pct Auto 0.2 % (0.0-0.5); Lymphocytes Absolute Auto 1.2 10^3/uL (1.2-3.8); Lymphocytes Percent Auto 27.8 % (20.5-60.0); Mean Corpuscular HGB Conc 29.2 g/dL (29.9-35.2); Mean Corpuscular Hemoglobin 20.5 pg (26.7-34.0); Mean Corpuscular Volume 70.4 fL (81.0-99.0); Mean Platelet Volume 9.9 fL (9.5-13.5); Monocytes Absolute Auto 0.4 10^3/uL (0.3-0.8); Monocytes Percent Auto 8.7 % (1.7-12.0); Neutrophils Absolute Auto 2.6 10^3/uL (1.4-6.5); Neutrophils Percent Auto 58.1 % (43.0-75.0); Platelet Count 224 10^3/uL (150-450); Red Blood Count 3.85 10^6/uL (4.20-5.40); Red Cell Distribution Width 19.1 % (11.0-15.0); White Blood Count 4.4 10^3/uL (4.0-11.0)
[2025-01-03 07:11] LABS: Anion Gap 10.3; BUN Creatinine Ratio 15.2; Carbon Dioxide 27.4 mmol/L (21.0-32.0); Chloride 106 mmol/L (98-107); Estimated GFR (African America >60 (>=60 mL/min/1.73m^2); Estimated GFR (Non-African Ame >60 (>=60 mL/min/1.73m^2); Glucose 89 mg/dL (74-106); Potassium 3.7 mmol/L (3.5-5.1); Sodium 140 mmol/L (136-145)
[2025-01-03] MEDS: LOSARTAN POTASSIUM 50 MG TABLET PO (09:04)
[2025-01-03] MEDS: POTASSIUM BICARBONATE/CIT 25 MEQ TABLET EFF PO (09:04)
[2025-01-03] MEDS: CHOLECALCIFEROL (VITAMIN D3) 25 MCG/1,000 UNITS TABLET PO (09:04)
[2025-01-03] MEDS: MULTIVITAMIN TABLET 1 TAB PO (09:04)
[2025-01-03] MEDS: ALLOPURINOL 100 MG TABLET 300 MG PO (09:05)
[2025-01-03] MEDS: CANAGLIFLOZIN 100 MG TABLET PO (09:05)
[2025-01-03] MEDS: CETIRIZINE HCL 10 MG TABLET PO (09:05)
--- NOTE | 2025-01-03 12:26 | P.DS_ITS ---
DS: Providers Provider Date of admission: 01/02/25 16:18 Primary care physician: CORNEL JEAN BAPTISTE Admitting clinician: Skyler Agarwal Attending physician on admission: Skyler Agarwal Consults: 01/02/25 17:52 Consult to Pharmacy Routine Consulting Provider: Reason for consultation: Please [place] me when Med Rec is Updated Has provider been notified: No Attending physician on discharge: Shaikh Dalia Discharging clinician: Shaikh Dalia Anticipated date of discharge: 01/03/25 DS: Diagnosis Discharge Diagnosis (1) Chest pain: Qualifiers: Chest pain type: unspecified Qualified Code(s): R07.9 - Chest pain, unspecified (2) Bradycardia: (3) Hypothyroidism (acquired): (4) Nonischemic cardiomyopathy: (5) Afib: Qualifiers: Atrial fibrillation type: paroxysmal Qualified Code(s): I48.0 - Paroxysmal atrial fibrillation (6) Hyperlipidemia: Qualifiers: Hyperlipidemia type: unspecified Qualified Code(s): E78.5 - Hyperlipidemia, unspecified DS: Summary Hospital Course Hospital Course: 74-year-old female with past medical history of heart failure with reduced ejection fraction, essential hypertension, hyperlipidemia, A-fib presented to ED with midsternal chest pain that is started suddenly and lasted for about 5 minutes with no associated symptoms. Patient was admitted to rule out ACS. Her EKG did not reveal any acute changes except for bradycardia that is not new. She remained chest pain-free during admission. Her cardiac enzymes were negative. She had an abnormal stress test in September 2024 and is following up with cardiology as outpatient. She has not had left heart catheterization and is being medically managed currently. Discussed with patient about possibility of needing left heart catheterization but since she is not having acute chest pain and there is no evidence of ACS, she can follow-up with cardiology as outpatient. She was educated on worrisome signs and symptoms and was instructed to return to ED if she develop recurrent chest pain, persistent chest pain that is not responding to nitroglycerin. Patient instructed to follow-up with cardiology and PCP. Status at Discharge Functional status at discharge: independent ambulation Overall status at discharge: patient is back to baseline Time Spent with Patient Time attestation: Total time spent providing and/or coordinating discharge services: Time spent: greater than 30 minutes Exam Constitutional Vital Signs, click to edit/add: Last Vital Signs Temp 97.8 F 01/03/25 06:24 Pulse 45 L 01/03/25 09:45 Resp 18 01/03/25 06:24 BP 114/55 01/03/25 06:24 Pulse Ox 96 01/03/25 11:18 O2 Del Method Room Air 01/03/25 11:18 Documenting provider has reviewed patient's vital signs: yes Common normals: no apparent distress and oriented x3 General appearance: cooperative Respiratory Common normals: normal respiratory effort and clear to auscultation bilaterally Effort & inspection: able to speak in complete sentences Auscultation: clear to auscultation bilaterally Cardio Common normals: regular rate, S1 normal heart sound and S2 normal heart sound Rate: regular rate Heart sounds: S1 normal and S2 normal Extremity Common normals: no clubbing, cyanosis or edema Neuro Common normals: oriented x3, moves all extremities and no focal motor deficits Psych Common normals: mental status grossly normal, denies hallucinations, denies homicidal ideation and denies suicidal ideation DS: Data Data Completed and Pending Labs on day of discharge: Labs from last 24 hours 01/03/25 01/02/25 01/02/25 06:12 21:00 18:08 WBC 4.4 RBC 3.85 L Hgb 7.9 L Hct 27.1 L MCV 70.4 L MCH 20.5 L MCHC 29.2 L RDW 19.1 H Plt Count 224 MPV 9.9 Neut % (Auto) 58.1 Lymph % (Auto) 27.8 [place] % (Auto) 8.7 Eos % (Auto) 4.3 Baso % (Auto) 0.9 Neut # (Auto) 2.6 Lymph # (Auto) 1.2 [place] # (Auto) 0.4 Eos # (Auto) 0.2 Baso # (Auto) 0.0 Abs Immat Gran (auto) 0.01 Imm/Tot Granulo (auto) 0.2 PT INR Sodium 140 Potassium 3.7 Chloride 106 Carbon Dioxide 27.4 Anion Gap 10.3 BUN 12.0 Creatinine 0.79 Est GFR ( Amer) >60 Est GFR (Non-Af Amer) >60 BUN/Creatinine Ratio 15.2 Glucose 89 Calcium 9.0 Magnesium Total Bilirubin AST ALT Alkaline Phosphatase Troponin I High Sens 22.2 20.6 NT-Pro-B Natriuret Pep Total Protein Albumin Globulin Albumin/Globulin Ratio 01/02/25 01/02/25 15:44 14:19 WBC 6.5 RBC 4.30 Hgb 8.8 L Hct 30.4 L MCV 70.7 L MCH 20.5 L MCHC 28.9 L RDW 19.2 H Plt Count 229 MPV 9.4 L Neut % (Auto) 72.8 Lymph % (Auto) 19.2 L [place] % (Auto) 5.7 Eos % (Auto) 1.2 Baso % (Auto) 0.6 Neut # (Auto) 4.8 Lymph # (Auto) 1.3 [place] # (Auto) 0.4 Eos # (Auto) 0.1 Baso # (Auto) 0.0 Abs Immat Gran (auto) 0.03 Imm/Tot Granulo (auto) 0.5 PT 11.8 H INR 1.13 Sodium 140 Potassium 3.9 Chloride 105 Carbon Dioxide 27.5 Anion Gap 11.4 BUN 14.0 Creatinine 0.93 Est GFR ( Amer) >60 Est GFR (Non-Af Amer) 59 L BUN/Creatinine Ratio 15.1 Glucose 109 H Calcium 9.6 Magnesium 2.1 Total Bilirubin 0.4 AST 14 L ALT 16 Alkaline Phosphatase 126 H Troponin I High Sens 19.5 20.5 NT-Pro-B Natriuret Pep 296.0 Total Protein 7.1 Albumin 3.3 L Globulin 3.8 Albumin/Globulin Ratio 0.9 Discharge Plan Discharge Disposition: Home, Self-Care Condition: Good Discharge Medications: Continued losartan 50 mg tablet 50 mg PO DAILY Qty: 30 0RF levothyroxine 112 mcg tablet 112 mcg PO DAILY Patient Comments: before breakfasst dapagliflozin propanediol [Farxiga] 10 mg tablet 10 mg PO DAILY Patient Comments: takes at night per pt allopurinol 300 mg tablet 300 mg PO DAILY Caltrate 600-D Plus Minerals 600 mg calcium- 800 unit-50 mg tablet 1 tab PO DAILY [facility] 8 mg iron-400 mcg-50 mcg tablet 1 tab PO DAILY lovastatin 10 mg tablet 10 mg PO DAILY Xarelto 20 mg tablet 20 mg PO Q24H cholecalciferol (vitamin D3) 25 mcg (1,000 unit) capsule 25 mcg PO DAILY acetaminophen [Tylenol Arthritis Pain] 650 mg tablet extended release 650 mg PO Q12H PRN (Reason: pain) fexofenadine [Hannah Allergy] 180 mg tablet 180 mg PO DAILY [facility] 750 mg-100 mg- 1.65 mg-108 mg tablet 1 tab PO DAILY Krill Oil ([place] 3 and 6) 1,500-165-67.5 mg capsule 1 cap PO DAILY lisinopril 2.5 mg tablet 2.5 mg PO DAILY Effer-K 25 mEq tablet, effervescent 25 meq PO BID Patient Comments: pt states taking only once a day d/t not liking the taste. Activity: increase activity as tolerated Diet: advance to your usual diet Print Language: Bengali Patient Instructions: Chest Pain (DC) Forms: Portal Instructions Follow Up Appointments: Call Dr Jean Baptiste office on Sunday for Follow up appoint ment next week [phone] F/u with Cardiology in 1-2 weeks
--- NOTE | 2025-01-05 15:41 | CM.DCFOLLOWU ---
1st attempt 01/05/25, no answer
--- NOTE | 2025-01-07 14:42 | CM.DCFOLLOWU ---
Person spoke with: Rochelle Fuentes How are you feeling? pretty good How is your pain? no pain Did you understand your discharge instructions? yes Do you have any questions about your discharge instructions?no Were you given any prescriptions at discharge? none Were you able to get your prescriptions filled?NA Do you understand how to take your medications as ordered?NA Do you have any questions about your follow up appointment and do you plan to keep your follow up appointment?Has appointment w cardiology at end of month and her daughter was calling to make appointment with Dr. Jean Baptiste Is there anything else that you would like to discuss? no Questions/Comments/Concerns/Other:none
== END 2025-01-03 12:54 | disposition home or self-care (01) ==
LOC: ER 16:18 → MS 17:00
PROVIDERS: Physician Assistant; Admitting Provider Family Medicine; Emergency Provider Emergency Medicine; PCP Family Medicine; Visit Provider Internal Medicine
DX: R07.9 Chest pain, unspecified (principal); I48.0 Paroxysmal atrial fibrillation; R06.02 Shortness of breath; Z90.710 Acquired absence of both cervix and uterus; E66.9 Obesity, unspecified; I43 Cardiomyopathy in diseases classified elsewhere; R00.1 Bradycardia, unspecified; E03.9 Hypothyroidism, unspecified; Z79.01 Long term (current) use of anticoagulants; D50.9 Iron deficiency anemia, unspecified; E78.5 Hyperlipidemia, unspecified; I11.0 Hypertensive heart disease with heart failure; I50.9 Heart failure, unspecified; Z68.35 Body mass index [BMI] 35.0-35.9, adult
CPT/HCPCS: 36415; 71045; 80048; 80053; 83735; 83880; 84484; 85025; 85610; 93005; 94667; 94761; 99285; G0328; G0378

== ENCOUNTER 2025-02-27 12:05 | Outpatient (OUT) | payer MEDICARE, OTHER, SELFPAY ==
--- NOTE | 2025-02-27 12:19 | XR_ITS ---
The [address] [address] Patient Name: MIKY NOLEN MRN: [id number] date: 1950 Sex: F Assigned Patient Location: LAB Current Patient Location: LAB Accession/Order Number: [id number] Exam Date: 02/27/2025 12:53 Report Date: 02/27/2025 13:05 At the request of: YEHUDA HASSAN MD Procedure: XR abdomen 1V SINGLE VIEW ABDOMEN COMPARISON: 09/22/2024 and 07/18/2024 CLINICAL DATA: History of kidney stones and right-sided stent Supine view of the abdomen and pelvis was obtained. The right internal ureteral stent on the comparison has been removed. There is a small amount of air and stool within the colon. There is mild small bowel air without disproportionate distention. On the left, there is a 13 mm calcification at the inferior pole of the kidney suggesting a stone. There is a potential second 3 mm calcified stone superior and lateral to it. On the right, there is a subtle calcified area approximately 17 - 18 mm in size that could also be nephrolithiasis. No suspect ureteral or bladder stones are seen. Subtle levoscoliotic curvature and degenerative changes are present at the spine. Sclerosis is visualized at the SI joints. There are hemostasis clips within the pelvis. XR/XR abdomen 1V IMPRESSION: Suspected bilateral nephrolithiasis. Impression dictated by: Pascale Fan M.D. 02/27/2025 1:05 PM Dictation Location: [place] [address] Electronically authenticated by: [id number] Y Date: 02/27/2025 13:05
== END 2025-02-27 12:06 | disposition home or self-care (01) ==
LOC: LAB 12:07
PROVIDERS: PCP Family Medicine; Visit Provider Urology
DX: N20.0 Calculus of kidney (principal)
CPT/HCPCS: 74018

== ENCOUNTER 2025-03-03 10:22 | Outpatient (OUT) | payer MEDICARE, OTHER, SELFPAY ==
[2025-03-03 11:03] LABS: Basophils Percent Auto 0.8 % (0.2-2.0); Eosinophils Absolute Auto 0.1 10^3/uL (0.0-0.7); Eosinophils Percent Auto 2.2 % (0.9-7.0); Hematocrit 29.1 % (36.0-48.0); Hemoglobin 8.4 g/dL (12.0-16.0); Immature Granulocytes Abs Auto 0.01 10^3/uL (0.00-0.03); Immature Granulocytes Pct Auto 0.2 % (0.0-0.5); Lymphocytes Absolute Auto 1.3 10^3/uL (1.2-3.8); Lymphocytes Percent Auto 27.3 % (20.5-60.0); Mean Corpuscular HGB Conc 28.9 g/dL (29.9-35.2); Mean Corpuscular Hemoglobin 20.2 pg (26.7-34.0); Mean Platelet Volume 9.4 fL (9.5-13.5); Monocytes Absolute Auto 0.4 10^3/uL (0.3-0.8); Monocytes Percent Auto 7.3 % (1.7-12.0); Neutrophils Percent Auto 62.2 % (43.0-75.0); Platelet Count 244 10^3/uL (150-450); Red Cell Distribution Width 19.7 % (11.0-15.0); White Blood Count 4.9 10^3/uL (4.0-11.0)
[2025-03-03 11:22] LABS: Alanine Aminotransferase 14 U/L (14-59); Albumin Globulin Ratio 0.8; Albumin Level 3.2 g/dL (3.4-5.0); Alkaline Phosphatase 121 U/L (46-116); Anion Gap 12.7; Aspartate Amino Transferase 12 U/L (15-37); BUN Creatinine Ratio 15.9; Bilirubin Total 0.4 mg/dL (0.2-1.0); Calcium 9.5 mg/dL (8.5-10.1); Carbon Dioxide 27.3 mmol/L (21.0-32.0); Chloride 104 mmol/L (98-107); Estimated GFR (African America >60 (>=60 mL/min/1.73m^2); Estimated GFR (Non-African Ame >60 (>=60 mL/min/1.73m^2); Globulin 3.8 g/dL; Glucose 109 mg/dL (74-106); Phosphorus 3.4 mg/dL (2.6-4.7); Sodium 140 mmol/L (136-145)
[2025-03-03 11:44] LABS: Red Blood Count 4.16 10^6/uL (4.20-5.40)
[2025-03-03 11:52] LABS: Percent Iron Saturation 3.3 %
[2025-03-04 03:07] LABS: Vitamin B12 779 pg/mL (232-1245)
== END 2025-03-03 10:23 | disposition home or self-care (01) ==
LOC: LAB 10:22
PROVIDERS: PCP Family Medicine; Visit Provider Nurse Practitioner Family
DX: E55.9 Vitamin D deficiency, unspecified (principal); Z98.84 Bariatric surgery status; I10 Essential (primary) hypertension; E11.9 Type 2 diabetes mellitus without complications; R60.9 Edema, unspecified; N20.0 Calculus of kidney; K21.00 Gastro-esophageal reflux disease with esophagitis, without bleeding
CPT/HCPCS: 36415; 80053; 82306; 82340; 82507; 82570; 82607; 82728; 82746; 83540; 83550; 83735; 83945; 83970; 84100; 84105; 84300; 84425; 84550; 84560; 85025

== ENCOUNTER 2025-03-03 10:25 | Outpatient (OUT) | payer MEDICARE, OTHER, SELFPAY ==
[2025-03-03 15:17] LABS: Calcium Urine Random 24.5 mg/dL (5.1-21.0); Creatinine Urine Random 59.13 mg/dL (20.00-300.00); Sodium Urine Random 68 mmol/L (30-90)
[2025-03-03 15:26] LABS: Calcium 24 Hour Urine 398.1 mg/24hr (100.0-300.0); Creatinine 24 Hour Urine 960.86 mg/24 hr (800.00-1800.00); Sodium 24 Hour Urine 111 mmol/24h (40-220); Total Volume 24 Hour Urine 1625 mL/24hr
[2025-03-04 09:09] LABS: PTH, Intact 43 pg/mL (15-65)
[2025-03-04 10:09] LABS: Uric Acid, Urine 16.4 mg/dL (Not Estab.); Uric Acid,Urine 24hr 270.6 mg/24 hr (88.9-568.5)
[2025-03-04 13:10] LABS: Magnesium, U 6.1 mg/dL (Not Estab.); Magnesium,Urine 24hr 100.7 mg/24 hr (12.0-293.0); Phosphorus,Urine 24h 594 mg/24 hr (261-1078)
== END 2025-03-03 10:26 | disposition home or self-care (01) ==
LOC: LAB 10:25
PROVIDERS: PCP Family Medicine; Visit Provider Urology
DX: N20.0 Calculus of kidney (principal)
CPT/HCPCS: 36415; 82340; 82507; 82570; 83735; 83945; 83970; 84105; 84300; 84550; 84560

== ENCOUNTER 2025-08-03 15:16 | Outpatient (OUT) | payer MEDICARE, OTHER, SELFPAY ==
--- OUTSIDE RECORDS SUMMARY | 2025-08-03 10:31 | XMS_ITS | Continuity of Care Document ---
Author Organization [facility] Address [address] [place] [address] Phone Care Team Providers Care Material Control Clerk Name Role Phone Connor Jean Baptiste DO Primary Care Provider Isa Rogers DO Attending Provider Care Teams Patient Care Team Team Status: Active Member Role Status Dates Connor Jean Baptiste DO Primary Care Provider Active Patient Care Team Team Status: Inactive Member Role Status Dates Connor Jean Baptiste DO Primary Care Provider Active Start: August 03, 2025 End: August 03, 2025 Isa Rogers DO Attending Provider Active Sta rt: August 03, 2025 End: August 03, 2025 Chief Complaint and Reason for Visit Reason for Visit Admit Date Memory loss August 03, 2025 1: 52pm Reason for Referral Referring Provider Name Referring Provider Address Referring Provider Phone Referral Date Requested Appointment Date Referral Reason Isa Rogers [address] [place] [address] Work Phone: August 03, 2025 R41.3 - Other amnesia August 03, 2025 R41.3 - Other amnesia Allergies, Adverse Reactions, Alerts Allergen Type Severity Reaction Last Updated Verified Status ciprofloxacin Allergy Unknown Unknown Reaction August 03, 2025 1:55pm Yes Active Sulfa (Sulfonamide Antibiotics) Allergy Unknown Unknown Reaction August 03, 2025 1:55pm Yes Active corn Adverse Reaction Mild Diarrhea August 03, 2025 1:55pm Yes Active dog dander Adverse Reaction Mild Raspy voice August 03, 2025 1:55pm Yes Active milk Adverse Reaction Mild Increased mucus August 03, 2025 1:55pm Yes Active mold Adverse Reaction Mild Stuffiness;rasp y voice August 03, 2025 1:55pm Yes Active dust Adverse Reaction Mild Stuffiness;rasp y voice November 08, 2017 7:51am No Active Social History Smoking Status Status Start Date End Date Date of Observa tion Never smoked tobacco (finding) May 12, 2025 3:35pm Observation Status Observation Response Date of Response Legal Sex Female (finding) Sex Assigned At Female 1950 Family History Relationship Condition Age at Onset Recorded Date/T юлия mother Diabetes mellitus Unknown Heart disease Unknown father Heart disease Unknown Problems Active Problems Medical Problem Onset Date Status Comments Memory loss Unknown Active Atrial fibrillation Unknown Active Hypothyroidism Unknown Active Cardiomyopathy Unknown Active Inactive/Resolved Problems Medical Problem Onset Date Status Comments Gilbert disease Unknown Resolved Problem List clean-up per request of Phys. EHR Cmte Status post left knee replacement Unknown Resolve d Problem List clean-up per request of Phys. EHR Cmte Decreased range of motion of left knee Unknown Resolved Problem List clean-u p per request of Phys. EHR Cmte Postoperative pain Unknown Resolved Problem L ist clean-up per request of Phys. EHR Cmte Knee joint replacement status Unknown Resolved Problem List clean-up per request of Phys. EHR Cmte DVT prophylaxis Unknown Resolved Problem List clean-up per request of Phys. EHR Cmte Constipation Unknown Resolved Arthritis of left knee Unknown Resolved Medications Medication Status Dose Units Route Directions Qty Days St art Date Stop Date End Date Instructions Adherence Sennosides (Senna Lax) 8.6 mg Tablet Discont inued 2 TAB PO DAILY@12 as needed for If no BM in 2 days 0 2017 1:00am Octob er 2024 11:26 am Acetaminoph en 325 mg Tablet Discont inued 650 MG PO Q4H as needed for Pain 2017 1:00am Octob er 2024 2:11p m Acetaminoph en 325 mg Tablet Discont inued 325 MG PO Q4H as needed for Pain 2017 1:00am Octob er 2024 11:25 am Oxycodone-A cetaminophe n 5-325 mg Tablet Discont inued 2 TAB PO Q4H as needed for Pain scale 6-10 2017 1:00am Octob er 2024 11:26 am Oxycodone-A cetaminophe n 5-325 mg Tablet Discont inued 1 TAB PO Q4H as needed for Pain scale 1-5 2017 1:00am Octob er 2024 11:26 am Ascorbic Acid (Vitamin C) (Vitamin C) 500 mg Tablet Discont inued 500 MG PO Twice daily with meals 2017 1:00am Octob er 2024 11:25 am Diphenhydra mine Hcl 25 mg Capsule Discont inued 25 MG PO Daily at bedtime as needed for Insomnia 2017 1:00am Octob er 2024 11:25 am Docusate Sodium 100 mg Capsule Discont inued 100 MG PO Three times daily 2017 1:00am Octob er 2024 11:26 am Allopurinol 300 mg Tablet Active 300 MG PO Daily 2017 1:00am Complies with drug therapy Loratadine 10 mg Tablet Discont inued 10 MG PO Daily as needed for Allergy Symptoms 2017 1:00am Octob er 2024 11:26 am Calcium Carbonate-V itamin D3 (Oyster Shell Calcium-Vit D3) 500 mg(1,250mg) -200 unit Tablet Discont inued 1 TAB PO Twice daily 2017 1:00am Octob er 2024 2:11p m Ferrous Sulfate 324 mg (65 mg iron) Tablet,Abril yed Release (Dr/Ec) Discont inued 324 MG PO Twice daily with meals 2017 1:00am Octob er 2024 2:11p m Dronedarone (Multaq) 400 mg Tablet Discont inued 400 MG PO Twice daily 2017 1:00am Octob er 2024 11:26 am Multivitami n With Folic Acid (Thera) 400 mcg Tablet Discont inued 1 TAB PO Daily 2017 1:00am Octob er 2024 11:26 am Multivitami n (Multiple Vitamins) Tablet Discont inued 1 TAB PO Twice daily Dece er 2016 1:00am 2017 1:19p m Levothyroxi ne 100 mcg Tablet Discont inued 100 MCG PO Every morning [facility] er 2016 1:00am 2017 1:19p m Aspirin 81 mg Tablet,Chew able Discont inued 81 MG PO Every evening [facility] er 2016 1:00am Oct 2017 12:29 pm Allopurinol 300 mg Tablet Discont inued 300 MG PO Daily [facility] 2016 1:00am 2017 1:19p m Loratadine (Claritin) 10 mg Tablet Discont inued 10 MG PO Daily as needed for Allergy Symptoms [facility] 2016 1:00am Oct 2017 1:19p m Dronedarone (Multaq) 400 mg Tablet Discont inued 400 MG PO Twice daily [facility] 2016 1:00am 2017 1:19p m Calcium Carbonate-V itamin D3 (Caltrate 600 + D) 600 mg (1,500 mg)-800 unit Tablet,Chew able Discont inued 1 TAB PO Twice daily [facility] 2016 1:00am 2017 1:19p m Krill-Om-3- Dha-Epa-Daniel spho-Ast (Megared [place]-3 Krill Oil) 1,000-230-6 0 mg Capsule Discont inued 1 CAP PO Daily [facility] 2016 1:00am 2017 12:29 pm Acetaminoph en (Tylenol) 325 mg Tablet Discont inued 1 TAB PO Twice daily 2017 1:00am 2017 1:19p m Ferrous Sulfate (Iron) 325 mg (65 mg iron) Tablet Discont inued 1 TAB PO Daily 2017 1:00am Oct 2017 8:26a m Iron Ps Complex-B12 -Folic Acid (Ferrex 150 Forte) 150-25-1 mg-mcg-mg capsule Discont inued 1 CAP PO Daily 2017 1:00am Oct 2017 1:19p m Potassium Bicarb And Chloride 25 mEq tablet, effervescen t Active 25 EACH PO Daily Oct r 2024 12:00a m Complies with drug therapy Fexofenadin e (Allergy Relief (Fexofenadi ne)) 180 mg tablet Active 180 MG PO Daily Octobe r 2024 12:00a m Complies with drug therapy Lovastatin 10 mg tablet Active 10 MG PO Daily Octobe r 2024 12:00a m Complies with drug therapy Tamsulosin 0.4 mg capsule Discont inued 0.4 MG PO Daily Octobe r 2024 12:00a m Octob er 2024 2:12p m Multivitami n-Minerals- Lutein tablet Active 1 TAB PO Daily Octobe r 2024 12:00a m Complies with drug therapy Levothyroxi ne 137 mcg capsule Discont inued 137 MCG PO Daily Octobe r 2024 12:00a m Octob er 2024 2:11p m Krill Oil 500 mg capsule Discont inued MG PO Octobe r 2024 12:00a m Octob er 2024 2:12p m Rivaroxaban (Xarelto) 20 mg tablet Active 20 MG PO Daily Octobe r 2024 12:00a m must administer with evening meal Complies with drug therapy Dapaglifloz in Propanediol (Farxiga) 10 mg tablet Active 10 MG PO Daily Octobe r 2024 12:00a m Complies with drug therapy Medical Equipment Device Date Implanted Device Details CEMENT PALACOS R 1X40 SINGLE November 08, 2017 CEMENT PALACOS R 1X40 SINGLE November 08, 2017 COMPENT FEMORAL GSF LPS November 08, 2017 COMPONENT TIBIAL STEMMED November 08, 2017 KNEE TOTAL LEVEL 1 November 08, 2017 PATELLA POLY 32 MM November 08, 2017 PATELLA REAMING SYSTEM November 08, 2017 SCREW BONE 6.5MM X 35MM November 08, 2017 SCREW BONE 6.5MM X 35MM November 08, 2017 SURFACE ARTICULAR LPS FLEX November 08, 2017 Vital Signs Vital Reading Result Reference Range Collection Date/Time Height 64 [in_i] August 03 1:53pm Weight 86.63 kg August 03 1:53pm Heart Rate 87 /min 60-100 August 03 1:53pm Oxygen saturation by Pulse oximetry 93 % 95-100 August 03, 2025 1: 53pm BP Systolic 124 mm[Hg] 100-140 August 03 1:53pm BP Diastolic 80 mm[Hg] 60-100 August 03 1:53pm BMI (Body Mass Index) 32.8 kg/m2 Octobe r 2024 1:53pm Advance Directives Advance Directive Response Recorded Date/ Time Advance Directives No May 12 3:37pm Insurance Providers Guarantor Rochelle Fuentes Address [address] [facility] [address] Contact Info. Home Phone: Payer Policy Id Subscriber's Name Subscriber Id Effective Date Expiration Date Medicare [id number] Rochelledanay Fuentes [id number] Medicare Rehab-IP Part A [id number] Rochelledanay Fuentes [id number] [employer] [id number] [place] [id number] Encounters Encounter Location(s) Arrival/Admit Date Discharge/Depart Date Provider(s) Departed Physician/Prov ider Office Visit -[facility] August 03, 2025 1:52pm August 03, 2025 2:29pm Isa Rogers DO Recent Diagnosis Onset Date Admit Date Memory loss Unknown August 03 1:52pm Assessments Diagnosis Onset Date Resolution Status Admit Date Memory loss acute August 03, 2025 1:52pm Plan of Treatment Author Isa Rogers [facility] Authored August 03, 2025 2: 29pm Plan: EEG to assess brain waves. MRI brain without to assess for structural lesions or strokes that could cause memory loss. Lab work to assess for reversible causes of memory loss. Brain exercises. Cardiovascular exercise. Mediterranean diet. 8 hours of sleep. 12 hour fasting through the night if able. Future Tests Future scheduled test information is unavailable Pending Tests Pending diagnostic test information is unavailable Future Visits Future appointment information is unavailable Referrals to Other Providers Reason for Referral Referral Start Date Provider Provider Contact Information Provider Address R41.3 - Other amnesia August 03, 2025 Kemi Beckett PhD Work Phone: [address] [phone] Future Procedures Procedure Name Ordered Date Scheduled Date Vit. B12/Folate Profile August 03, 2025 2:23pm Future Medications Future medication information is unavailable Patient Instructions Patient instructions are unavailable Hospital Discharge Instructions Ambulatory Orders* Referral to Neuropsychology Time Frame: 08/03/25, Location: None Selected
--- OUTSIDE RECORDS SUMMARY | 2025-08-03 15:24 | XMS_ITS | Encounter Summary ---
Author Organization [facility] Address [address] [place] [address] Phone Care Team Providers Care Import Manager Name Role Phone Connor Jean Baptiste DO Primary Care Provider Encounter Details Date Type Department Care Team (Late st Contact Info) Description 11/20/2020 Orders Only [facility] [address] [place] [address] Conversion, Onbase Social History Tobacco Use Types Packs/Day Years Used Date Smoking Tobacco: Never Assessed Comments Unknown Sex and Gender Information Value Date Recorded Sex Assigned at Not on file Legal Sex Female 11:56 AM EST Gender Identity Not on file Sexual Orientation Not on file documented as of this encounter Plan of Treatment Upcoming Encounters Date Type Department Care Team (Late st Contact Info) Description 08/27/2025 11:20 AM EDT Office Visit [address] [facility] [address] [place] [address] Carmen Chi MD [address] [facility] [address] [place] [address] Scheduled Orders Name Type Priority Associated Diagnoses Orde r Schedule OUTSIDE LAB SCAN Lab Ordered: 11/20/2020 documented as of this encounter Visit Diagnoses Not on filedocumented in this encounter Care Teams Import Manager Relationship Specialty Start Date End Date Connor Jean Baptiste DO PCP - General 10/29/19 documented as of this encounter
--- OUTSIDE RECORDS SUMMARY | 2025-08-03 15:24 | XMS_ITS | Encounter Summary ---
Author Organization [facility] Address [id number] [address] [place] [address] Care Team Providers Care Hims Coder Name Role Phone Connor Jean Baptiste Primary Care Provider + [phone] Encounter Details Date Type Department Care Team (Late st Contact Info) Description 07/08/2024 Orders Only [facility] [address] [place] [address] Ref Prov, [place] [address] Social History Tobacco Use Types Packs/Day Years Used Date Smoking Tobacco: Never Smokeless Tobacco: Never Alcohol Use Standard Drinks/Week Comments Not Currently 0 (1 standard drink = 0.6 oz pur e alcohol) Social Connection and Isolat ion Panel [NHANES] Answer Date Recorded In a typical week, how many times do you talk on the phone with family, friends, or neighbors? More than three times a week 06/21/2023 How often do you get togethe r with friends or relatives? Once a week 06/21/2023 How often do you attend chur ch or muslim services? Never 06/21/2023 Do you belong to any clubs o r organizations such as buddhism groups, unions, fraternal or athletic groups, or school groups? No 06/21/2023 How often do you attend meet ings of the clubs or organizations you belong to? Never 06/21/2023 Are you , , di vorced, , never , or living with a partner? 06/21/2023 AUDIT-C Answer Date Recorded Q1: How often do you have a drink containing alcohol? Never 02/20/2023 Q2: How many drinks containi ng alcohol do you have on a typical day when you are drinking? Patient does not drink Q3: How often do you have si x or more drinks on one occasion? Never 02/20/2023 Overall Financial Resource Strain (CARDIA) Answe r Date Recorded How hard is it for you to pa y for the very basics like food, housing, medical care, and heating? Not hard at all 02/20/2023 PHQ-2 Answer Date Recorded Total Score 0 02/18/2024 [facility] - Occupational Stress Questionnaire Answer Date Recorded Do you feel stress - tense, restless, nervous, or anxious, or unable to sleep at night because your mind is troubled all the time - these days? Only a little 02/20/2023 Exercise Vital Sign Answer Date Recorde d On average, how many days pe r week do you engage in moderate to strenuous exercise (like a brisk walk)? 7 days 06/21/2023 On average, how many minutes do you engage in exercise at this level? 30 min 06/21/2023 PRAPARE - Transportation Answer Date Re corded In the past 12 months, has l ack of transportation kept you from medical appointments or from getting medications? No 01/28 In the past 12 months, has l ack of transportation kept you from meetings, work, or from getting things needed for daily living? No 02/20/2023 Housing Instability Answer Date Recorde d Are you worried or concerned that in the next two months you may not have stable housing that you own, rent or stay in as a part of a household? No 02/20/2023 Childcare Answer Date Recorded Do problems getting child ca re make it difficult for you to work or study? No 02/20/2023 Employment Answer Date Recorded Do you need help finding a [facility] career center and/or a training program? No 02/20/2023 Hunger Screening Answer Date Recorded Within the past 12 months we worried whether our food would run out before we got money to buy more. Never True 02/18/2024 Within the past 12 months th e food we bought just didn't last and we didn't have money to get more. Never True 02/18/2024 Purpose - Life Answer Date Recorded I have a purpose and direction in my life. Stron gly Agree 02/20/2023 Comments No Sex and Gender Information Value Date Recorded Sex Assigned at Not on file Legal Sex Female 5:58 PM EDT Gender Identity Not on file Sexual Orientation Not on file documented as of this encounter Plan of Treatment Upcoming Encounters Date Type Department Care Team (Late st Contact Info) Description 11/26/2025 1:40 PM EST Office Visit [facility] [address] [place] [address] 01/06/2026 10:00 AM EDT Office Visit [facility] [address] [place] [address] Connor Jean Baptiste DO [address], [place] [address] documented as of this encounter Procedures Procedure Name Priority Date/Time Associated Diagnosis Comments XR ABDOMEN AP 1 VW Routine 07/04/2024 10:48 AM EDT documented in this encounter Results * X-ray abdomen ap 1 view (07/04/2024 10:48 AM EDT) Anatomical Region Laterality Modality Body, Abdomen N/A Computed Radiogr aphy us Not In System Ref Prov IMG DIAGNOSTIC IMAGING OR DERABLES Final Result documented in this encounter Visit Diagnoses Not on filedocumented in this encounter Additional Health Concerns Assessment Noted Time PHQ-9 Depression Total Score: 0 02/18/20 24 10:08 AM EDT A Body Mass Index follow-up plan has been documented for the patient 02/18/2024 5:31 PM EDT documented as of this encounter Care Teams Hims Coder Relationship Specialty Start Date End Date Connor Jean Baptiste DO [address], [place] [address] PCP - General Family Medicine 11/13/22 Desiree Jansen CCM Nurse - [facility] 07/01/24 Yuni Borja CCM Nurse - [facility] 11/20/24 documented as of this encounter
--- OUTSIDE RECORDS SUMMARY | 2025-08-03 15:24 | XMS_ITS | Clinical Summary ---
Author Organization [facility] Address [address] [place] [address] Phone Care Team Providers Care Mold Tooling Technician Name Role Phone Connor Jean Baptiste Primary Care Provider Allergies Active Allergy Reactions Criticality Noted Date Comments Ciprofloxacin Unknown 08/17/2023 Sulfa (Sulfonamide Antibiotics) Unknown 07/30 Medications allopurinol (Zyloprim) 300 mg tablet Take 1 tablet (300 mg) by mouth once daily. Active CALCIUM CARBONATE-VITAMIN D3 ORAL Take 1 tablet by mouth once daily. Active cholecalciferol (Vitamin D-3) 25 MCG (1000 UT) tablet Take 1 tablet (25 mcg) by mouth 2 times a day. Active wxmhzvia-fpv-gphj- FA-vit K-lut (Centrum Silver Women) 8 mg iron-400 mcg-50 mcg tablet Take 1 tablet by mouth once daily. Active omega-3 fatty acids-fish oil (One-Per-Day Ralph-3) 684-1,200 mg capsule Take 1 capsule (1,200 mg) by mouth once daily. Active collagen/biotin/as corbic acid (COLLAGEN 1500 PLUS C ORAL) Take 1 capsule by mouth once daily. Active acetaminophen (Tylenol 8 HOUR) 650 mg ER tablet Take 1 tablet (650 mg) by mouth every 8 hours if needed for mild pain (1 - 3). Do not crush, chew, or split. Active dronedarone (Multaq) 400 mg tabletIndications: Paroxysmal atrial fibrillation (Multi) Take 1 tablet (400 mg) by mouth if needed (AFIB). Take as needed for AFIB 90 tablet 1 4 Active potassium bicarbonate (K-Lyte) 25 mEq effervescent tablet Take 1 tablet (25 mEq) by mouth 2 times a day. Active fexofenadine (Hannah) 60 mg tablet Take 1 tablet (60 mg) by mouth once daily. Active lisinopril 2.5 mg tabletIndications: Non-ischemic cardiomyopathy (Multi) Take 1 tablet (2.5 mg) by mouth once daily. 90 tablet 3 4 Active lovastatin (Mevacor) 10 mg tabletIndications: Hyperlipidemia, unspecified hyperlipidemia type Take 1 tablet (10 mg) by mouth once daily. 90 tablet 3 4 Active rivaroxaban (Xarelto) 20 mg tabletIndications: Paroxysmal atrial fibrillation (Multi) Take 1 tablet (20 mg) by mouth once daily. 90 tablet 3 4 Active levothyroxine (Synthroid, Levoxyl) 125 mcg tablet Take 1 tablet (125 mcg) by mouth early in the morning.. Take on an empty stomach at the same time each day, either 30 to 60 minutes prior to breakfast Active Active Problems Problem Noted Date Diagnosed Date High risk medication use 08/28/2024 BMI 35.0-35.9,adult 03/06/2024 Never smoked tobacco 12/24/2023 Bruit of right carotid artery 08/17/2023 Hyperlipidemia 08/17/2023 Hypothyroidism 08/17/2023 Nephrolithiasis 08/17/2023 Non-ischemic cardiomyopathy (Multi) 08/17/2023 Paroxysmal atrial fibrillation (Multi) 3 Immunizations Immunization Administration Dates Next Due Flu vaccine, trivalent, pres ervative free, HIGH-DOSE, age 65y+ (Fluzone) 10/15/2022,08/29/2021,09/03/2020 Pfizer Purple Cap SARS-CoV-2 08/29/2021,12/23/19 21,12/01/2020 Pneumococcal conjugate vacci ne, 13-valent (PREVNAR 13) 04/10/2016 Pneumococcal polysaccharide vaccine, 23-valent, age 2 years and older (PNEUMOVAX 23) 10/29/2012,10/29/2010 Td (adult), unspecified 09/06/1999 Tdap vaccine, age 7 year and older (BOOSTRIX, ADACEL) 02/21/2010 Zoster vaccine, recombinant, adult (SHINGRIX) 03/29/2019 Zoster, live 02/14/2013 Family History Medical History Relation Name Comments Cardiomyopathy Brother Heart attack Father CABG Sister Heart attack Sister Relation Name Status Comments Brother Father Sister Social History Tobacco Use Types Packs/Day Years Used Date Smoking Tobacco: Never Smokeless Tobacco: Never Tobacco Cessation:Counseling Given: Not Answered Alcohol Use Standard Drinks/Week Comments Never 0 (1 standard drink = 0.6 oz pur e alcohol) Comments Unknown Sex and Gender Information Value Date Recorded Sex Assigned at Not on file Legal Sex Female 11:56 AM EST Gender Identity Not on file Sexual Orientation Not on file Last Filed Vital Signs Vital Sign Reading Time Taken Comments Blood Pressure 122/56 08/28/2024 10:39 AM EDT Pulse 56 08/28/2024 10:39 AM EDT Temperature - - Respiratory Rate - - Oxygen Saturation - - Inhaled Oxygen Concentration - - Weight 96.2 kg (212 lb) 08/28/2024 10:39 AM EDT Height 165.1 cm (5' 5 ) 08/28/2024 10:39 AM EDT Body Mass Index 35.28 08/28/2024 10:39 AM EDT Plan of Treatment Upcoming Encounters Date Type Department Care Team (Late st Contact Info) Description 08/27/2025 11:20 AM EDT Office Visit [address] [place] [address] Carmen Chi MD [address] [facility] [address] [place] [address] Health Maintenance Due Date Last Done Comments CT Colonography 1950 Colonoscopy 1950 Colorectal Cancer Screening 1950 FIT-DNA (Cologuard) 1950 FIT 1950 Lipid Panel 1950 Sigmoidoscopy 1950 TSH Level 1950 Diabetes Screening 1968 Hepatitis C Screening 1968 MMR Vaccines (1 of 1 - Standard series) 03/14/2013 Bone Density Scan 2015 RSV High Risk: (Elderly (60+) or Population) (1 - 1-dose 75+ series) 2025 COVID-19 Vaccine ( season) 2025 11/01/2023, 04/29/2022, 08/29/2021, Additional history exists Influenza Vaccine (#1) 2025 , 10/15/2022, 09/08/2021, Additional history exists Medicare Annual Wellness Visit (AWV) 11/26/2025 11/25/2024, 06/21/2023, 06/20/2022, Additional history exists DTaP/Tdap/Td Vaccines (3 - Td or Tdap) 02/20/2033 02/20/2023, 02/21/2010, 09/06/1999 Zoster Vaccines Completed 06/17/2019, 10/2018, 04/15/2019, Additional history exists Pneumococcal Vaccine Completed 09/13/2020, 08/29/2020, 06/20/2017, Additional history exists Mammogram Discontinued 08/05/2024, 06/30, 07/26/2023 HIB Vaccines Aged Out No longer eligi ble based on patient's age to complete this topic HPV Vaccines Aged Out No longer eligi ble based on patient's age to complete this topic Hepatitis A Vaccines Aged Out No long er eligible based on patient's age to complete this topic Hepatitis B Vaccines Aged Out No long er eligible based on patient's age to complete this topic IPV Vaccines Aged Out No longer eligi ble based on patient's age to complete this topic Meningococcal Vaccine Aged Out No darby sharri eligible based on patient's age to complete this topic Rotavirus Vaccines Aged Out No longer eligible based on patient's age to complete this topic Insurance [facility] [place] [place] [address] MEDICARE PART A AND B Care Teams Mold Tooling Technician Relationship Specialty Start Date End Date Connor Jean Baptiste DO PCP - General 10/29/19
--- OUTSIDE RECORDS SUMMARY | 2025-08-03 15:24 | XMS_ITS | Encounter Summary ---
Author Organization [facility] Sys tem Address [id number] [address] [place] [address] Care Team Providers Care Yard Brakeman Name Role Phone Connor Jean Baptiste Primary Care Provider + [phone] Encounter Details Date Type Department Care Team (Late st Contact Info) Description 03/06/2023 Orders Only [facility] - Family Medicine [address] [place] [phone] External, Scanning Provider Social History Tobacco Use Types Packs/Day Years [...] neighbors? More than three times a week 02/20/2023 How often do you get togethe r with friends or relatives? More than three times a week 02/20/2023 How often do you attend chur ch or sikhism services? 1 to 4 times per year 02/20/2023 Do you belong to any clubs o r organizations such as mormon groups, unions, fraternal or athletic groups, or school groups? No 02/20/2023 How often do you attend meet ings of the clubs or organizations you belong to? Never 02/20/2023 Are you , , di vorced, , never , or living with a partner? 02/20/2023 AUDIT-C Answer Date Recorded Q1: How often [...] PHQ-2 Answer Date Recorded Total Score 0 02/20/2023 [facility] of Occupat ional Health - Occupational Stress Questionnaire Answer Date [...] to strenuous exercise (like a brisk walk)? 3 days 02/20/2023 On average, how many minutes do you engage in exercise at this level? 30 min 02/20/2023 PRAPARE - Transportation Answer Date Re corded [...] Recorded Do you need help finding a banning general hospitalal career center and/or a training program? No 02/20/2023 Purpose - Life Answer Date Recorded I [...] Medicine - Family Medicine [address] [place] [address] 01/06/2026 10:00 AM EDT Office Visit [facility] - Family Medicine [address] [place] [address] Connor Jean Baptiste DO [address], [place] [address] documented as of this encounter Procedures Procedure Name Priority Date/Time Associated Diagnosis Comments CT ABDOMEN AND PELVIS W WO CONT Routine 03/06/2023 documented in this encounter Results * CT abdomen and pelvis with and without contrast (03/06/2023) Anatomical Region Laterality Modality Body, Abdomen, Body Covera N/A Compu riri Tomography us Scanning Provider External IMG CT ORDERABLES Fin al Result documented in this encounter Visit Diagnoses Not on filedocumented in this encounter Additional Health Concerns Assessment Noted Time PHQ-9 Depression Total Score: 0 02/21/20 23 3:47 PM EDT documented as of this encounter Care Teams Yard Brakeman Relationship Specialty Start Date End Date Connor Jean Baptiste DO [address] [facility] [place] [address] PCP - General Family Medicine 11/13/22 Amanda Izquierdo [facility] Nurse - [employer] 04/04/2406/30/ Lea Jansen [facility] Nurse - [employer] 07/01/24 Yuni Borja [facility] Nurse - [employer] 11/20/24 documented as of this encounter
--- OUTSIDE RECORDS SUMMARY | 2025-08-03 15:24 | XMS_ITS | Encounter Summary ---
Author Organization [facility] Sys tem Address [id number] [address] [place] [address] Care Team Providers Care Chrome Tanning Drum Operator Name Role Phone Connor Jean Baptiste Primary Care Provider + [phone] Encounter Details Date Type Department Care Team (Late st Contact Info) Description 07/31/2023 Orders Only [facility] Medicine - Family Medicine [address] [place] [phone] Yuni King CMA Encounter for screening mammogram for malignant neoplasm of breast Social History Tobacco Use Types Packs/Day Years [...] often do you attend chur ch or uatsdin services? Never 06/21/2023 Do you belong to any clubs o r organizations such as jain groups, unions, fraternal or athletic groups, or [...] PHQ-2 Answer Date Recorded Total Score 0 07/23/2023 [facility] [place] - Occupational Stress Questionnaire Answer Date Recorded [...] Recorded Do you need help finding a vencor hospitalal career center and/or a training program? No 02/20/2023 Hunger Screening Answer Date Recorded Within the past 12 months we worried whether our food would run out before we got money to buy more. Never True 06/21/2023 Within the past 12 months th e food we bought just didn't last and we didn't have money to get more. Never True 06/21/2023 Purpose - Life Answer Date Recorded I [...] Medicine - Family Medicine [address] [place] [address] 01/06/2026 10:00 AM EDT Office Visit [facility] - Family Medicine [address] [place] [address] Connor Jean Baptiste DO [address], [facility] [place] [address] documented as of this encounter Procedures Procedure Name Priority Date/Time Associated Diagnosis Comments MAMM SCREENING BILATERAL W CAD Routine 07/26/2023 12:05 PM EDT Encounter for screening mammogram for malignant neoplasm of breast documented in this encounter Results * Mammography screening bilateral with CAD (07/26/2023 12:05 PM EDT) Anatomical Region Laterality Modality Breast Bilateral Mammography us Connor Jean Baptiste DO IMG MAMMOGRAPHY ORDERABLES F inal Result documented in this encounter Visit Diagnoses Diagnosis Encounter for screening mammogram for malignant neoplasm of breast documented in this encounter Additional Health Concerns Assessment Noted Time PHQ-9 Depression Total Score: 0 07/23/20 23 10:04 AM EDT documented as of this encounter Care Teams Chrome Tanning Drum Operator Relationship Specialty Start Date End Date Connor Jean Baptiste DO [address], [place] [address] PCP - General Family Medicine 11/13/22 Amanda Izquierdo [facility] 04/04/24 Lea Jansen CCM Nurse - [employer] 07/01/24 Yuni Borja CCM Nurse - [employer] 11/20/24 documented as of this encounter
--- OUTSIDE RECORDS SUMMARY | 2025-08-03 15:24 | XMS_ITS | Encounter Summary ---
Author Organization [facility] [employer] [facility] s tem Address [id number] [address] [place] [address] Care Team Providers Care Senior Dynamics Crm Developer Name Role Phone Connor Jean Baptiste DO Primary Care Provider [phone] Encounter Details Date Type Department Care Team (Late st Contact Info) Description 05/29/2024 Telephone [facility] - Family Medicine [address] [place] [address] Connor Jean Baptiste DO [address], [facility] [place] [address] Social History Tobacco Use Types Packs/Day Years [...] often do you attend chur ch or bahai services? Never 06/21/2023 Do you belong to any clubs o r organizations such as restorationist groups, unions, fraternal or athletic groups, or [...] Answer Date Recorded Total Score 0 02/18/2024 [facility] [place] of Occupat ional Health - Occupational Stress [...] Recorded Do you need help finding a l ocal career center and/or a training program? 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 documented in this encounter Additional Health Concerns Assessment Noted Time PHQ-9 Depression Total Score: 0 02/18/20 24 10:08 AM EDT A Body Mass Index follow-up plan has been documented for the patient 02/18/2024 5:31 PM EDT documented as of this encounter Care Teams Senior Dynamics Crm Developer Relationship Specialty Start Date End Date Connor Jean Baptiste DO [address], [place] [address] PCP - General Family Medicine 11/13/22 Amanda Izquierdo [facility] Nurse - [employer] 04/04/24 Lea Jansen [facility] Nurse - [employer] 07/01/24 Yuni Borja [facility] Nurse - [employer] 11/20/24 documented as of this encounter
--- OUTSIDE RECORDS SUMMARY | 2025-08-03 15:24 | XMS_ITS | Encounter Summary ---
Author Organization [facility] [employer] s tem Address [facility] [id number] [address] [place] [address] Care Team Providers Care Assistant Associate Professor Name Role Phone Connor Jean Baptiste Primary Care Provider + [phone] Encounter Details Date Type Department Care Team (Late st Contact Info) Description 08/08/2024 [facility] [address] [place] [address] Ira Falk CMA Social History Tobacco Use Types Packs/Day Years [...] often do you attend chur ch or buddhism services? Never 06/21/2023 Do you belong to any clubs o r organizations such as sikhism groups, unions, fraternal or athletic groups, or [...] Answer Date Recorded Total Score 0 02/18/2024 [facility] of Occupat ional Health - Occupational Stress [...] Recorded Do you need help finding a [facility] career center and/or a training program? No [...] on file documented as of this encounter Miscellaneous Notes * Telephone Encounter - Ira Falk CMA - 08/08/2024 12:33 PM EDT ----- Message from Dr. Connor Jean Baptiste DO sent at 08/08/2024 10:08 AM EDT ----- Her mammogram was normal. Recheck in 1 year documented in this encounter Plan of Treatment Upcoming Encounters Date Type Department Care Team (Late st Contact Info) Description 11/26/2025 1:40 PM EST Office Visit [facility] - Family Medicine [address] [place] [address] 01/06/2026 10:00 AM EDT Office Visit [facility] - Family Medicine [address] [place] [address] Connor Jean Baptiste DO [address] [facility] [place] [address] documented as of this encounter Visit Diagnoses Not on filedocumented in this encounter Additional Health Concerns Assessment Noted Time PHQ-9 Depression Total Score: 0 02/18/20 24 10:08 AM EDT A Body Mass Index follow-up plan has been documented for the patient 02/18/2024 5:31 PM EDT documented as of this encounter Care Teams Assistant Associate Professor Relationship Specialty Start Date End Date Connor Jean Baptiste DO [address] [facility] [address] PCP - General Family Medicine 11/13/22 Desiree Jansen [facility] Nurse - [employer] 07/01/24 Yuni Borja CCM Nurse - [employer] 11/20/24 documented as of this encounter
--- OUTSIDE RECORDS SUMMARY | 2025-08-03 15:24 | XMS_ITS | Encounter Summary ---
[id number] [address] [place] [address] Care Team Providers Care Patient Information Coordinator Name Role Phone Connor Jean Baptiste Primary Care Provider + [phone] Encounter Details Date Type Department Care Team (Late st Contact Info) Description 09/24/2024 [facility]phone [facility] [address] [place] [address] Mone Morataya CMA Social History Tobacco Use Types Packs/Day [...] often do you attend chur ch or moravian services? Never 06/21/2023 Do you belong to any clubs o r organizations such as adventist groups, unions, fraternal or athletic groups, or [...] PHQ-2 Answer Date Recorded Total Score 0 08/18/2024 [facility] of Occupat ional Health - Occupational Stress [...] Recorded Do you need help finding a [facility] career [facility] and/or a training program? No 02/20/2023 Hunger Screening Answer Date Recorded Within the past 12 months we worried whether our food would run out before we got money to buy more. Never True 08/18/2024 Within the past 12 months th e food we bought just didn't last and we didn't have money to get more. Never True 08/18/2024 Purpose - Life Answer Date Recorded I have a purpose and direction in my life. Stron gly Agree 02/20/2023 Comments No Sex and Gender Information Value Date Recorded Sex Assigned at Not on file Legal Sex Female 5:58 PM EDT Gender Identity Not on file Sexual Orientation Not on file documented as of this encounter Miscellaneous Notes * Telephone Encounter - Mone Morataya CMA - 09/24/2024 3:33 PM EST Pt called requesting a clearance for a dental procedure she is having * Telephone Encounter - Connor Jean Baptiste DO - 09/24/2024 3:33 PM EST She sees cardiology and is managing her heart so should get it from them * Telephone Encounter - Mone Morataya CMA - 09/24/2024 3:33 PM EST Called pt talk to daughter and let her know that pt needs to contact cardiology documented in this encounter Plan of Treatment Upcoming Encounters Date Type Department Care Team (Late st Contact Info) Description 11/26/2025 1:40 PM EST Office Visit [facility] - Family Medicine [address] [place] [address] 01/06/2026 10:00 AM EDT [facility] [address] [place] [address] Connor Jean Baptiste DO [address] [place] [address] documented as of this encounter Visit Diagnoses Not on filedocumented in this encounter Additional Health Concerns Assessment Noted Time PHQ-9 Depression Total Score: 0 08/18/20 24 10:46 AM EDT A Body Mass Index follow-up plan has been documented for the patient 02/18/2024 5:31 PM EDT documented as of this encounter Care Teams Patient Information Coordinator Relationship Specialty Start Date End Date Markel Connor Ruiz DO [address], [facility] [place] [address] PCP - General Family Medicine 11/13/22 Desiree Jansen [facility] Nurse - [employer] 07/01/24 Yuni Borja [facility] Nurse - [employer] 11/20/24 documented as of this encounter
--- OUTSIDE RECORDS SUMMARY | 2025-08-03 15:24 | XMS_ITS | Clinical Summary ---
Author Organization [facility] Address [address] [place] [address] Care Team Providers Care Business Process Modeler Name Role Phone Connor Jean Baptiste MD Primary Care Provider Allergies Active Allergy Reactions Criticality Noted Date Comments Ciprofloxacin Rash,Unknown Low 12/12/2022 [place] Oil Diarrhea Low 11/08/2017 Dust Mite Extract 10/30/2024 Other Reaction(s): Unknown Milk (Cow) Other Low 11/08/2017 Increased Mucus Molds & Smuts Other Low 11/08/2017 Stuffiness / Raspy Voice Sulfa Antibiotics Rash,Unknown Low 06/21/2023 Sulfamethoxazole-Trimethopr im Rash Low 11/13/2022 Medications levothyroxine (Synthroid, Levoxyl) 137 MCG tablet Take 137 mcg by mouth in the morning. Active Xarelto 20 MG tablet Take 20 mg by mouth Daily Active allopurinol (Zyloprim) 300 MG tablet Take 300 mg by mouth Daily Active lovastatin (Mevacor) 10 MG tablet Take 10 mg by mouth in the morning. 3 Active potassium bicarbonate (Effer-K) 25 MEQ effervescent tablet Take 25 mEq by mouth 3 Active fexofenadine (Hannah) 180 MG tablet Take 180 mg by mouth in the morning. 4 Active Multiple Vitamins-Minerals (CENTRUM SILVER ADULT 50+ PO) as directed Orally Active cholecalciferol (Vitamin D-[address]) 25 MCG (1000 UT) tablet Take 25 mcg by mouth in the morning and 25 mcg in the evening. Active Binford-3 Fatty Acids (OMEGA-3 FISH OIL PO) Take by mouth Act delicia acetaminophen (Tylenol) 325 MG tablet Take 325 mg by mouth every 4 (four) hours Active calcium carbonate 1500 (600 Ca) MG tablet Take 600 mg by mouth in the morning and 600 mg in the evening. Take with meals. Active Ferrous Sulfate (IRON PO) Take 1 tablet by mouth in the morning. Active Krill Oil 1000 MG capsule Orally Active sodium bicarbonate 650 MG tablet Take 650 mg by mouth 1 (one) time Active tamsulosin (Flomax) 0.4 MG 24 hr capsule Take 0.4 mg by mouth Daily 4 Active dapagliflozin (Farxiga) 10 MG Take by mouth Active Active Problems No known active problems Encounters Date Type Department Care Team Description 05/26/2025 11:00 AM EDT [facility] [address] [place] [address] Jr. Jasper Mcclain, Acute pain of right knee (Primary Dx); Arthritis of right knee 05/26/2025 Bamboo flowsheet [facility] [place] [address] Jr. Jasper Mcclain DO 05/26/2025 Travel from Last 3 Months Immunizations Immunization Administration Dates Next Due Influenza, High-dose Seasona l, Quadrivalent, Preservative Free 11/01/2023,10/15/2022,08/29/2021,08/07 Influenza, Unspecified 09/08/2021,2019,08/29/2020,08/11,07/29/2020,09/02/2019,08/11/2019 Influenza, injectable, MDCK, preservative free, quadrivalent 09/27/2017 Influenza, seasonal, injectable 08/29/2019 Influenza, seasonal, injecta ble, preservative free 10/06/2016 Influenza, seasonal, intrade rmal, preservative free 10/19/2016 Influenza, trivalent, adjuvanted 10/13/2024 Novel [id number], preservative-free 12/20/2009,11/29/2009 Pneumococcal Conjugate PCV 13 04/10/2016, 016,10/02/2013 Pneumococcal Polysaccharide PPSV23 09/13,08/29/2020,07/29/2014,10/29,10/29/2010,02/21/2010 Td (adult), unspecified 09/06/1999 Tdap 02/20/2023,02/21/2010 Zoster, Recombinant 06/17/2019, 9,04/15/2019,03/29 Zoster, live 02/14/2013 Family History Medical History Relation Name Comments Heart disease Father Diabetes Mother Heart disease Mother Relation Name Status Comments Father Mother Social History Tobacco Use Types Packs/Day Years Used Date Smoking Tobacco: Never Smokeless Tobacco: Never Tobacco Cessation:Counseling Given: Not Answered Comments Unknown Sex and Gender Information Value Date Recorded Sex Assigned at Not on file Legal Sex Female 7:01 PM EDT Gender Identity Not on file Sexual Orientation Not on file Last Filed Vital Signs Vital Sign Reading Time Taken Comments Blood Pressure - - Pulse - - Temperature - - Respiratory Rate - - Oxygen Saturation - - Inhaled Oxygen Concentration - - Weight 94.8 kg (209 lb) 05/26/2025 10:59 AM EDT Height 170.2 cm (5' 7 ) 05/26/2025 10:59 AM EDT Body Mass Index 32.73 05/26/2025 10:59 AM EDT Plan of Treatment Upcoming Encounters Date Type Department Care Team (Late st Contact Info) Description 09/22/2025 11:15 AM EST [facility] [place] [phone] Jr. Jasper Mcclain, DO [address] [facility] [address] [place] [address] 11/03/2025 10:00 AM EST Office Visit [facility] acute hospital [place] [phone] Jr. Jasper Mcclain, DO [address] [facility] [address] [place] [address] Health Maintenance Due Date Last Done Comments CT Colonography 1950 Colonoscopy 1950 Colorectal Cancer Screening 1950 FIT-DNA 1950 FIT 1950 FOBT 1950 Sigmoidoscopy 1950 Influenza Vaccine (#1) 2025 , 11/01/2023, 10/15/2022, Additional history exists Pneumococcal Vaccine: 65+ Years Completed 09/13/2020, 08/29/2020, 04/10/2016, Additional history exists Mammogram Discontinued 07/26/2023 Insurance [facility] [place] [address] Care Teams Business Process Modeler Relationship Specialty Start Date End Date Connor Jean Baptiste MD [address] [facility], [place] [address] PCP - General Family Medicine 02/19/25
--- OUTSIDE RECORDS SUMMARY | 2025-08-03 15:24 | XMS_ITS | Encounter Summary ---
Author Organization [facility] Address [address] [place] [address] Phone Care Team Providers Care Channel Development Manager Name Role Phone Connor Jean Baptiste DO Primary Care Provider Encounter Details Date Type Department Care Team (Late st Contact Info) Description 07/28/2024 Scanned Document [facility] [address] [place] [phone] Scanning, Generic Provider Social History Tobacco Use Types Packs/Day Years Used Date Smoking Tobacco: Never Smokeless Tobacco: Never Alcohol Use Standard Drinks/Week Comments Never 0 [...] Description 08/27/2025 11:20 AM EDT Office Visit [place] [address] [place] [address] Carmen Chi MD [address] [facility] [address] [place] [address] documented as of this encounter Procedures Procedure Name Priority Date/Time Associated Diagnosis Comments ELECTROCARDIOGRAM 12 LEAD 07/28/2024 documented in this encounter Results * Electrocardiogram (07/28/2024) Narrative 07/28/2024 Ordered by an unspecified provider. us Generic Provider Scanning ECG ORDERABLES Final Result documented in this encounter Visit Diagnoses Not on filedocumented in this encounter Additional Health Concerns Assessment Noted Time A fall risk assessment has been complete d for the patient 03/06/2024 9:32 AM EDT documented as of this encounter Care Teams Channel Development Manager Relationship Specialty Start Date End Date Connor Jean Baptiste DO PCP - General 10/29/19 documented as of this encounter
--- OUTSIDE RECORDS SUMMARY | 2025-08-03 15:24 | XMS_ITS | Clinical Summary ---
Author Organization [facility] Address [address] [place] [address] Care Team Providers Care Cook Barbecue Name Role Phone Connor Jean Baptiste DO Primary Care Provider [phone] Allergies Active Allergy Reactions Criticality Noted Date Comments Ciprofloxacin Rash,Unknown Low 12/12/2022 Sulfa (Sulfonamide Antibiotics) Rash,Unknown Low Medications levothyroxine (Synthroid, Levoxyl) 100 mcg tablet Take 112 mcg by mouth before breakfast. 02/17/20 16 Active dronedarone (Multaq) 400 mg tablet Take 400 mg by mouth if needed. 02/17/20 16 Active allopurinol (Zyloprim) 300 mg tablet Take 300 mg by mouth in the morning. Active lovastatin (Mevacor) 10 mg tablet Take 10 mg by mouth in the morning. Active Effer-K 25 mEq effervescent tablet Take 25 mEq by mouth once daily as directed. 10/26/20 23 Active fexofenadine (Hannah) 180 mg tablet Take 180 mg by mouth in the morning. 02/18/20 24 Active spironolactone (Aldactone) 25 mg tabletIndications: Nonischemic cardiomyopathy (CMS/HCC),Pulmonar y hypertension (CMS/HCC) Take 1 tablet (25 mg) by mouth in the morning. 90 tablet 3 12/11/19 25 026 Active Additional Information Patient not taking.Reported on 02/03/2025 rivaroxaban (Xarelto) 20 mg tabletIndications: Paroxysmal atrial fibrillation (CMS/HCC) Take 1 tablet (20 mg) by mouth in the morning. 90 tablet 3 12/19/19 25 026 Active losartan (Cozaar) 50 mg tabletIndications: Essential hypertension Take 1 tablet (50 mg) by mouth in the morning. 90 tablet 3 12/19/19 25 026 Active dapagliflozin propanediol (Farxiga) 10 mgIndications:Nan schemic cardiomyopathy (CMS/HCC),Pulmonar y hypertension (CMS/HCC) Take 1 tablet (10 mg) by mouth once daily as directed. 30 tablet 11 01/15/20 25 026 Active acetaminophen (Tylenol) 325 mg tablet Take 325 mg by mouth every 4 (four) hours. Active calcium carbonate 600 mg calcium (1,500 mg) tablet in the morning. Active lisinopril 2.5 mg tablet Take 1 tablet by mouth in the morning. 10/29/19 Active Myrbetriq 50 mg tablet extended release 24 hr Take 1 tablet by mouth in the morning. 09/11/20 24 Active sodium bicarbonate 650 mg tablet two times daily. Active tamsulosin (Flomax) 0.4 mg 24 hr capsule Take 0.4 mg by mouth in the morning. 08/05/20 24 Active Active Problems Problem Noted Date Diagnosed Date Attention or concentration deficit 01/19/2025 Paroxysmal ventricular tachycardia 10/18/2024 Abnormal finding on cardiovascular stress test 1 12/19/2023 Anticoagulated 10/17/2024 Chronic pain 10/17/2024 Overview (10/17/2024): pt relates bilat knees Diabetes 10/17/2024 Enterobacter sepsis 10/17/2024 History of kidney stones 10/17/2024 Hypertension 10/17/2024 Irregular heart beat 10/17/2024 Kidney stone 10/17/2024 Nocturia 10/17/2024 Cardiomyopathy 10/17/2024 Overview (10/17/2024): left ventricle enlarged Urinary frequency 10/17/2024 Urinary urgency 10/17/2024 UTI (urinary tract infection) 10/17/2024 High risk medication use 08/28/2024 Class 2 severe obesity due t o excess calories with serious comorbidity and body mass index (BMI) of 35.0 to 35.9 in adult 08/18/2024 BMI 35.0-35.9,adult 03/06/2024 Ureteral stone 02/18/2024 Ureteral stone with hydronephrosis 02/18/2024 Never smoked tobacco 12/24/2023 Bruit of right carotid artery 08/17/2023 Hypothyroidism 08/17/2023 Paroxysmal atrial fibrillation 08/17/[address] scan 07/23/2023 Asymptomatic microscopic hematuria 07/23/2023 Cholelithiasis 07/23/2023 Gross hematuria 07/23/2023 Hyperlipidemia 07/23/2023 Nephrolithiasis 07/23/2023 Minimal cognitive impairment 07/23/2023 Non-ischemic cardiomyopathy 07/23/2023 Overview (10/17/2024): left ventricle enlarged Osteoarthritis 07/23/2023 Renal failure 07/23/2023 Sleep apnea 07/23/2023 Stress incontinence 07/23/2023 Polyp of transverse colon 12/13/2022 Colon cancer screening 10/31/2022 Family History Medical History Relation Name Comments Coronary artery disease Brother Heart attack Father Diabetes Mother Relation Name Status Comments Brother Father Mother Sister Social History Tobacco Use Types Packs/Day Years Used Date Smoking Tobacco: Never Smokeless Tobacco: Never Tobacco Cessation:Counseling Given: Not Answered Alcohol Use Standard Drinks/Week Comments Never 0 (1 standard drink = 0.6 oz pur e alcohol) Comments Unknown Sex and Gender Information Value Date Recorded Sex Assigned at Female 11/27/2024 7:29 AM EST Legal Sex Female 3:56 PM EST Gender Identity Female 11/27/2024 7:29 AM EST Sexual Orientation Heterosexual or Straight 10/31 7:29 AM EST Last Filed Vital Signs Vital Sign Reading Time Taken Comments Blood Pressure 119/65 02/03/2025 1:47 PM EDT Pulse 50 02/03/2025 1:47 PM EDT Temperature - - Respiratory Rate 18 11/27/2024 8:18 AM EST Oxygen Saturation 99% 02/03/2025 1:47 PM EDT Inhaled Oxygen Concentration - - Weight 91.2 kg (201 lb) 02/03/2025 1:47 PM EDT Height 162.6 cm (5' 4 ) 02/03/2025 1:47 PM EDT Body Mass Index 34.5 02/03/2025 1:47 PM EDT Plan of Treatment Upcoming Encounters Date Type Department Care Team (Late st Contact Info) Description 09/04/2025 1:20 PM EST Office Visit [facility] [address] [place] [address] Angelic Mendoza MD [address] MS:[place] [address] Health Maintenance Due Date Last Done Comments CT Colonography 1950 Colonoscopy 1950 Colorectal Cancer Screening 1950 Diabetes: Hemoglobin A1C 1950 FIT-DNA 1950 FIT 1950 FOBT 1950 Medicare Annual Wellness (AWV) 1950 Sigmoidoscopy 1950 Diabetes: Retinopathy Screening 1960 Depression Screening 1962 Diabetes: Urine Protein Screening 1969 Fall Risk Screening 2015 COVID-19 Vaccine ( season) 2025 11/01/2023, 04/29/2022, 04/29/2022, Additional history exists Influenza Vaccine (#1) 2025 , 11/01/2023, 10/15/2022, Additional history exists Adult Tetanus 02/20/2033 02/20/2023, 2 03/2010, 09/06/1999 Zoster Vaccines Completed 06/17/2019, 0810/2018, 04/15/2019, Additional history exists Pneumococcal Vaccine: 50+ Years Completed 09/13/2020, 08/29/2020, 04/10/2016, Additional history exists HIB Vaccines Aged Out No longer eligi ble based on patient's age to complete this topic HPV Vaccines Aged Out No longer eligi ble based on patient's age to complete this topic IPV Vaccines Aged Out No longer eligi ble based on patient's age to complete this topic Meningococcal B Vaccine Aged Out No l onger eligible based on patient's age to complete this topic Meningococcal Vaccine Aged Out No darby sharri eligible based on patient's age to complete this topic Rotavirus Vaccines Aged Out No longer eligible based on patient's age to complete this topic Insurance MEDICARE [facility] Care Teams Cook Barbecue Relationship Specialty Start Date End Date Connor Jean Baptiste DO [address] [facility] [address] PCP - General Family Medicine 10/17/24
--- OUTSIDE RECORDS SUMMARY | 2025-08-03 15:24 | XMS_ITS | Encounter Summary ---
Author Organization [facility] tem Address [facility]-[id number] [address] [place] [address] Care Team Providers Care Patient Care Manager Name Role Phone Connor Jean Baptiste Primary Care Provider + [phone] Encounter Details Date Type Department Care Team (Late st Contact Info) Description 10/02/2024 Orders Only [facility] - Family Medicine [address] [place] [address] Ref Prov, [place] [address] Social History Tobacco Use Types Packs/Day Years [...] often do you attend chur ch or congregation services? Never 06/21/2023 Do you belong to any clubs o r organizations such as nondenominational groups, unions, fraternal or athletic groups, or [...] Answer Date Recorded Total Score 0 08/18/2024 [facility] - Occupational Stress Questionnaire Answer Date [...] Recorded Do you need help finding a [facility] career [facility] and/or a training program? No [...] - Family Medicine [address] [place] [address] 01/06/2026 10:00 AM EDT Office Visit [facility] - Family Medicine [address] [place] [address] Connor Jean Baptiste DO [address], [place] [address] documented as of this encounter Procedures Procedure Name Priority Date/Time Associated Diagnosis Comments ECG 12-LEAD Routine 09/29/2024 10:58 AM EST STRESS TEST (EXERCISE ONLY) Routine 09/28/2024 11:10 AM EST ECG 12-LEAD Routine 09/28/2024 10:56 AM EST XR CHEST 1 VW Routine 09/28/2024 10:30 AM EST XR ABDOMEN AP 1 VW Routine 09/22/2024 10:28 AM EST documented in this encounter Results * ECG 12 lead (09/29/2024 10:58 AM EST) us Not In System Ref Prov ECG ORDERABLES Final Res ult MANUALLY TRANSCRIBED RESULTS * Stress test (exercise only) (09/28/2024 11:10 AM EST) Anatomical Region Laterality Modality Chest N/A Other us Not In System Ref Prov CV STRESS ORDERABLES Caitlin l Result * ECG 12 lead (09/28/2024 10:56 AM EST) us Not In System Ref Prov ECG ORDERABLES Final Res ult MANUALLY TRANSCRIBED RESULTS * X-ray chest 1 view (09/28/2024 10:30 AM EST) Anatomical Region Laterality Modality Body, Chest N/A Computed Radiogr aphy us Not In System Ref Prov IMG DIAGNOSTIC IMAGING OR DERABLES Final Result * X-ray abdomen ap 1 view (09/22/2024 10:28 AM EST) Anatomical Region Laterality Modality Body, Abdomen N/A Computed Radiogr aphy us Not In System Ref Prov IMG DIAGNOSTIC IMAGING OR DERABLES Final Result documented in this encounter Visit Diagnoses Not on filedocumented in this encounter Additional Health Concerns Assessment Noted Time PHQ-9 Depression Total Score: 0 08/18/20 10:46 AM EDT A Body Mass Index follow-up plan has been documented for the patient 02/18/2024 5:31 PM EDT documented as of this encounter Care Teams Patient Care Manager Relationship Specialty Start Date End Date Connor Jean Baptiste DO [address] [facility], [place] [address] PCP - General Family Medicine 11/13/22 Desiree Jansen [facility] Nurse - [employer] 07/01/24 Yuni Borja [facility] Nurse - [employer] 11/20/24 documented as of this encounter
--- OUTSIDE RECORDS SUMMARY | 2025-08-03 15:24 | XMS_ITS | Encounter Summary ---
Author Organization [facility] Address [id number] [address] [place] [address] Care Team Providers Care Drip Molder Name Role Phone Connor Jean Baptiste Primary Care Provider + [phone] Encounter Details Date Type Department Care Team (Late st Contact Info) Description 08/08/2024 Orders Only [facility] - Family Medicine [address] [place] [address] Ref Prov, [place] [address] Social History Tobacco Use Types Packs/Day Years [...] often do you attend chur ch or anglican services? Never 06/21/2023 Do you belong to any clubs o r organizations such as jew groups, unions, fraternal or athletic groups, or [...] Answer Date Recorded Total Score 0 02/18/2024 [facility] Health - Occupational Stress Questionnaire Answer [...] Recorded Do you need help finding a [facility] career center and/or a training program? [...] - Family Medicine [address] [place] [address] 01/06/2026 10:00 AM EDT Office Visit [facility] - Family Medicine [address] [place] [address] Connor Jean Baptiste DO [address], [place] [address] documented as of this encounter Procedures Procedure Name Priority Date/Time Associated Diagnosis Comments MAMMOGRAPHY Routine 08/05/2024 9:50 AM EDT URINE CULTURE Routine 07/29/2024 9:39 AM EDT documented in this encounter Results * HM MAMMOGRAPHY (08/05/2024 9:50 AM EDT) Anatomical Region Laterality Modality Other us Not In System Ref Prov HEALTH MAINTENANCE Final Result * Urine Culture (07/29/2024 9:39 AM EDT) Urine us Not In System Ref Prov MICROBIOLOGY - GENERAL OR DERABLES Final Result MANUALLY TRANSCRIBED RESULTS documented in this encounter Visit Diagnoses Not on filedocumented in this encounter Additional Health Concerns Assessment Noted Time PHQ-9 Depression Total Score: 0 02/18/20 24 10:08 AM EDT A Body Mass Index follow-up plan has been documented for the patient 02/18/2024 5:31 PM EDT documented as of this encounter Care Teams Drip Molder Relationship Specialty Start Date End Date Furlong Connor Ruiz DO [address] [facility], [place] [address] PCP - General Family Medicine 11/13/22 Desiree Jansen [facility] Nurse - [employer] 07/01/24 Yuni Borja [facility] Nurse - [employer] 11/20/24 documented as of this encounter
--- OUTSIDE RECORDS SUMMARY | 2025-08-03 15:24 | XMS_ITS | Encounter Summary ---
Author Organization [facility] [employer] s tem Address [facility]-[id number] [address] [place] [address] Care Team Providers Care Factory Hand Name Role Phone Connor Jean Baptiste Primary Care Provider + [phone] Encounter Details Date Type Department Care Team (Late st Contact Info) Description 08/19/2024 [facility]phone [facility] [address] [place] [address] Ira Falk CMA Social History [...] often do you attend chur ch or congregational services? Never 06/21/2023 Do you belong to any clubs o r organizations such as restorationism groups, unions, fraternal or athletic groups, or [...] Answer Date Recorded Total Score 0 08/18/2024 [facility] of Occupat ional Health - Occupational [...] a purpose and direction in my life. Lyn gly Agree 02/20/2023 Comments No Sex and Gender Information Value Date Recorded Sex Assigned at Not on file Legal Sex Female 5:58 PM EDT Gender Identity Not on file Sexual Orientation Not on file documented as of this encounter Miscellaneous Notes * Telephone Encounter - Ira Falk CMA - 08/19/2024 9:50 AM EDT ----- Message from Dr. Connor Jean Baptiste DO sent at 08/19/2024 9:28 AM EDT ----- Her TSH was low suggesting she is getting a little too much thyroid supplement. I would like to cutback little further on her levothyroxine because of her atrial fibrillation. Cut down to 112 mcg. She can use her current supply of 125 mcg but skip 1 day a week or I can send in a new prescription for her. Her lipids were essentially at goal. Her LDL was a little bit high at 107 but she has no known coronary artery disease. Her CMP was normal. She should be on a statin. Looks like she has lovastatin on her med list but I do not know if it has been refilled lately. If not she needs to start medication as her CV risk is 31.5% I call Pt and read result note. She verbally states she understands. She will cut back on levothyroxine. You can refill it with the new script also and refill Lovastatin as she is taking it. Pharmacyis listed and correct. documented in this encounter Plan of Treatment Upcoming Encounters Date Type Department Care Team (Late st Contact Info) Description 11/26/2025 1:40 PM EST Office Visit [facility] - Family Medicine [address] [place] [address] 01/06/2026 10:00 AM EDT Office Visit [facility] - Family Medicine [address] [place] [address] Connor Jean Baptiste DO [address], [place] [address] documented as of this encounter Visit Diagnoses Not on filedocumented in this encounter Additional Health Concerns Assessment Noted Time PHQ-9 Depression Total Score: 0 08/18/20 10:46 AM EDT A Body Mass Index follow-up plan has been documented for the patient 02/18/2024 5:31 PM EDT documented as of this encounter Care Teams Factory Hand Relationship Specialty Start Date End Date Connor Jean Baptiste DO [address], [place] [address] PCP - General Family Medicine 11/13/22 Desiree Jansen [facility] Nurse - [employer] 07/01/24 Yuni Borja [facility] Nurse - [employer] 11/20/24 documented as of this encounter
--- OUTSIDE RECORDS SUMMARY | 2025-08-03 15:24 | XMS_ITS | Encounter Summary ---
Author Organization [employer] [facility] tem Address [id number] [address] [place] [address] Care Team Providers Care Loaders Name Role Phone Connor Jean Baptiste DO Primary Care Provider [phone] Encounter Details Date Type Department Care Team (Late st Contact Info) Description 10/31/2022 Telephone [facility] - Family Medicine [address] [place] [address] Rayne Angela CMA Social History Tobacco Use Types Packs/Day Years Used Date Smoking Tobacco: Never Assessed Childcare Answer Date Recorded Childcare Unknown 04/09/2019 Employment Answer Date Recorded Employment Unknown 04/09/2019 Comments Unknown Sex and Gender Information Value Date Recorded Sex Assigned at Not on file Legal Sex Female 5:58 PM EDT Gender Identity Not on file Sexual Orientation Not on file documented as of this encounter Miscellaneous Notes * Telephone Encounter - Rayne Angela CMA - 10/31/2022 2:16 PM EST This patient is scheduled for her Screening Colonoscopy on Dec 13 at 10:30am. Please send her Prep Kit to [facility] documented in this encounter Plan of Treatment Upcoming Encounters Date Type Department Care Team (Late st Contact Info) Description 11/26/2025 1:40 PM EST Office Visit [facility] - Family Medicine [address] [place] [address] 01/06/2026 10:00 AM EDT Office Visit [facility] - Family Medicine [address] [place] [address] Connor Jean Baptiste DO [address] [place] [address] documented as of this encounter Visit Diagnoses Not on filedocumented in this encounter Care Teams Loaders Relationship Specialty Start Date End Date Connor Jean Baptiste DO [address] [facility] [place] [address] PCP - General Family Medicine 11/13/22 Amanda Izquierdo [facility] Nurse - [employer] 04/04/2406/30/ Lea Jansen [facility] Nurse - [employer] 07/01/24 Yuni Borja [facility] Nurse - [employer] 11/20/24 documented as of this encounter
--- OUTSIDE RECORDS SUMMARY | 2025-08-03 15:24 | XMS_ITS | Encounter Summary ---
Author Organization [facility] Address [facility]-[id number] [address] [place] [address] Care Team Providers Care Foreign Law Consultant Name Role Phone Connor Jean Baptiste Primary Care Provider + [phone] Encounter Details Date Type Department Care Team (Late st Contact Info) Description 10/09/2023 Orders Only [facility] - Family Medicine [address] [place] [address] External, Scanning Provider Social History Tobacco Use [...] often do you attend chur ch or caodaism services? Never 06/21/2023 Do you belong to any clubs o r organizations such as mandaeism groups, unions, fraternal or athletic groups, or [...] Answer Date Recorded Total Score 0 07/23/2023 [facility] Occupat ional Health - Occupational Stress [...] Recorded Do you need help finding a [facility] career center and/or a training program? [...] - Family Medicine [address] [place] [address] 01/06/2026 10:00 AM EDT Office Visit [facility] - Family Medicine [address] [place] [address] Connor Jean Baptiste DO [address], [place] [address] documented as of this encounter Visit Diagnoses Not on filedocumented in this encounter Additional Health Concerns Assessment Noted Time PHQ-9 Depression Total Score: 0 07/23/20 10:04 AM EDT documented as of this encounter Care Teams Foreign Law Consultant Relationship Specialty Start Date End Date Connor Jean Baptiste DO [address], [place] [address] PCP - General Family Medicine 11/13/22 Amanda Izquierdo [facility] Nurse - [employer] 04/04/24 Lea Jansen [facility] Nurse - [employer] 07/01/24 Yuni Borja [facility] Nurse - [employer] 11/20/24 documented as of this encounter
--- OUTSIDE RECORDS SUMMARY | 2025-08-03 15:24 | XMS_ITS | Clinical Summary ---
Author Organization [employer] s tem Address [id number] [address] [place] [address] Care Team Providers Care Leather Cutter Name Role Phone Connor Jean Baptiste DO Primary Care Provider [phone] Allergies Active Allergy Reactions Criticality Noted Date Comments Allerg Xt,D.Farinae-D.Pteronys 10/30/2024 Other Reaction(s): Unknown Sulfamethoxazole-Trimeth oprim Rash Low 11/13/2022 Ciprofloxacin Rash Low 12/12/2022 [place] Other (See Comments) 02/18/2024 [place] Oil Diarrhea Low 11/08/2017 Milk Other (See Comments) Low 11/08/2017 Increased Mucus Mold Other (See Comments) Low 11/08/2017 Stuffiness / Raspy Voice Sulfa (Sulfonamide Antibiotics) Rash Low 06/21/2023 Medications allopurinoL (ZYLOPRIM) 300 mg tablet Take 1 tablet (300 mg total) by mouth in the morning. 2 Active XARELTO 20 mg tablet tablet Take 1 tablet (20 mg total) by mouth in the morning. 2 Active acetaminophen (TYLENOL ARTHRITIS) 650 mg 8 hr tablet Take 1 tablet (650 mg total) by mouth every 8 (eight) hours as needed for pain. Active CALCIUM CARBONATE-VITAMIN D3 ORAL Take 1 tablet by mouth in the morning. Active rzohgezt-rcn-emvx- FA-vit K-lut (CENTRUM SILVER WOMEN) 8 mg iron-400 mcg-50 mcg tablet Take 1 tablet by mouth in the morning. Active EFFER-K 25 mEq disintegrating tablet 4 Active fexofenadine (BRAYDON) 180 mg tablet Take 1 tablet (180 mg total) by mouth in the morning. 4 Active xkfmh-xw-7-dha-epa -phospho-ast (KRILL OIL) 1,132-429-04-80 mg capsule Take 1 capsule by mouth in the morning. 4 Active lovastatin (MEVACOR) 10 mg tablet Take 1 tablet (10 mg total) by mouth in the morning. 90 tablet 3 5 Active losartan (COZAAR) 50 mg tablet Take 1 tablet (50 mg total) by mouth. Active levothyroxine (SYNTHROID, LEVOTHROID) 112 MCG tablet TAKE 1 TABLET BY MOUTH IN THE MORNING 90 tablet 5 Active FARXIGA 10 mg tablet Take 1 tablet (10 mg total) by mouth. 5 Active dronedarone (MULTAQ) 400 mg tablet Take 1 tablet (400 mg total) by mouth 2 (two) times a day as needed. 4 07/09/20 25 Discontin ued(Thera py completed ) Active Problems Patient Care Coordination No te Formatting of this note migh t be different from the original. Hypothyroidism & CKD Careplan: Nurse to instruct on: the purpose of your medications and the importance of adherence -pt to bring med list to [facility] next week 11/20/24 MAYUR MCWILLIAMS the importance of your care plan -discussed 11/20/24 SA RN -Discussed recent OV and scheduling MRI. the importance of preventative screenings and what they mean to your health -Discussed recent eye appointment and new supplement that she started for memory called Neuriva. 05/29/24 GLORY MARIE -11/20/24 MAYUR MCWILLIAMS -Discussed due for COVID vaccine. Upcoming dental appt. 03/17/25 GLORY MARIE proper use of your blood pressure meter and pulse oximeter - 04/04/24 GLORY DOMINGUEZ your Hypothyroidism and CKD, its diagnosis and treatment the importance of recognizing brittle fingernails and hair, puffy face, muscle weakness, and weight gain due to fluid retention as a S&S of your Hypothyroidism the importance of recognizing discomfort or swelling to the abdomen, swelling in hands, feet, or legs, and nausea, vomiting, taste changes as a S&S of your CKD Nurse to assist in: scheduling your appointments, as needed setting a goal to achieve a healthy weight, increase joint mobility and range of motion, get enough sleep, do regular physical activity, create a safe home environment, continue with current treatment plans, address risk of falling, and check blood pressure Patient to verbalize understanding of: the importance of your care plan keeping a written list of your medications preventative screenings and what they mean to your health your medications and the importance of adherence monitoring blood pressure monitoring respiratory rate and rhythm - 04/04/24 TASHA DOMINGUEZN monitoring oxygen levels - 04/04/24 GLORY your Hypothyroidism, its diagnosis, process and treatment your CKD, its diagnosis, process and treatment the importance of recognizing brittle fingernails and hair, puffy face, muscle weakness, and weight gain due to fluid retention as a S&S of your Hypothyroidism the importance of recognizing discomfort or swelling to the abdomen, swelling in hands, feet, or legs, and nausea, vomiting, taste changes as a S&S of your CKD Patient to commit to: achieve a healthy weight weigh self daily increase joint mobility and range of motion get enough sleep get a scale do regular physical activity 03/17/25 GLORY MARIE create a safe home environment continue with current treatment plans address risk of falling check blood pressure A Fib Care Plan [10/01/2024] GLORY Added: Nurse to instruct on: your A Fib, its diagnosis and treatment the importance of recognizing dizziness or lightheadedness, faintness or confusion, palpitations or fluttering in the chest, rapid and irregular heartbeat, sweating, weakness, and weakness or shortness of breath as a S&S of your A Fib -11/20/24 SA RN -Reviewed s/s of A Fib. 03/17/25 GLORY MARIE Patient to verbalize understanding of: your A Fib, its diagnosis, process and treatment the importance of recognizing dizziness or lightheadedness, faintness or confusion, palpitations or fluttering in the chest, rapid and irregular heartbeat, sweating, weakness, and weakness or shortness of breath as a S&S of your A Fib -Reviewed s/s of A Fib. 10/01/24 GLORY MARIE Anemia Care Plan [01/29/2025] GLORY Added: Nurse to instruct on: your Anemia, its diagnosis and treatment -Reviewed foods high in iron. 03/17/25 GLORY MARIE the importance of recognizing cold hands and feet, dizziness or lightheadedness, heart palpitations, muscle cramps, pale/yellowish skin, rapid or irregular heartbeat, and shortness of breath as a S&S of your Anemia -Educated on s/s of anemia. Mailed high iron food list. 01/29/25 GLORY MARIE Patient to verbalize understanding of: your Anemia, its diagnosis, process and treatment the importance of recognizing cold hands and feet, dizziness or lightheadedness, heart palpitations, muscle cramps, pale/yellowish skin, rapid or irregular heartbeat, and shortness of breath as a S&S of your Anemia 2023 Wellness Goals: d/c 11/20/24 MAYUR MCWILLIAMS Over the next 12 months, Patient will go to appointments with: Primary Care Provider 06/24/2024 Orthopedic Over the next 12 months, Patient will complete the following tests, immunizations, and preventative screenings: Diabetic Foot Exam Eye Exam Annual Wellness Visit Flu vaccine 2023 Education: 04/04/24: Careplan created, welcome letter mailed, medrec completed, education provided on sleep apnea - GLORY DOMINGUEZ 2024 Wellness Goals: [11/20/2024] RN Added: Over the next 12 months, Patient will go to appointments with: Primary Care Provider 01/19/25 GLORY MARIE Auto Machinist 12/19/2024 Orthopedic 03/25/2025 Over the next 12 months, Patient will complete the following tests, immunizations, and preventative screenings: Annual Wellness Visit 11/25/2024 GLORY MARIE Depression Screening 01/19/25 GLORY MARIE Fall Risk Assessment 01/19/25 GLORY MARIE COVID-19 Vaccination 07/29/2025 Diabetic Foot Exam 10/28/2025 Flu vaccine 10/28/2025 Eye Exam 10/28/20252024 Education: -discussed CTA 11/20/24 MAYUR MCWILLIAMS 03/17/25- Discussed left knee pain. Mailed chair exercises. 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 08/18/2024 Ureteral stone 02/18/2024 Ureteral stone with hydronephrosis 02/18/2024 Bruit of right carotid artery 08/17/2023 Paroxysmal atrial fibrillation 08/17/2023 Minimal cognitive impairment 07/23/[address] scan 07/23/2023 Asymptomatic microscopic hematuria 07/23/2023 Non-ischemic cardiomyopathy 07/23/2023 Overview (07/23/2023): left ventricle enlarged Cholelithiasis 07/23/2023 Gross hematuria 07/23/2023 Hyperlipidemia 07/23/2023 Nephrolithiasis 07/23/2023 Osteoarthritis 07/23/2023 Renal failure 07/23/2023 Sleep apnea 07/23/2023 Stress incontinence 07/23/2023 Polyp of transverse colon 12/13/2022 Colon cancer screening 10/31/2022 Hypertension Hypothyroidism Resolved Problems Problem Noted Date Diagnosed Date Resolved Date Diabetic on diet only 07/23/20232022 Morbid obesity 03/01/2016 07/09/2025 Diabetes mellitus 02/20/2023 Encounters Date Type Department Care Team Description 07/12/2025 Results [facility] [address] [place] [address] Connor Jean Baptiste, Thyroid profile includes TSH FT4, Comprehensive metabolic panel, Lipid profile, Hemoglobin A1c 07/09/2025 10:00 AM EDT [facility] [address] [place] [address] Connor Jean Baptiste, Primary hypertension (Primary Dx); Acquired hypothyroidism; Hyperlipidemia, unspecified hyperlipidemia type; Class 1 obesity due to excess calories with serious comorbidity and body mass index (BMI) of 33.0 to 33.9 in adult; History of diabetes mellitus, type II 07/09/2025 Travel 07/03/2025 [facility] [address] [place] [address] Connor Jean Baptiste DO Acquired hypothyroidism (Primary Dx); 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 06/01/2025 [facility] [address] [place] [id number] Connor Jean Baptiste DO Acquired hypothyroidism (Primary Dx); 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 05/21/2025 Orders Only [facility] - [facility] [address] [place] [address] Ref Prov, Not In System from Last 3 Months Immunizations Immunization Administration Dates Next Due COVID-19, mRNA, LNP-S, PF, 100mcg/0.5mL Dose 04/29/2022 COVID-19, mRNA, LNP-S, PF, 3 0mcg/0.3mL Dose 08/29/2021,12/23/2020,12/23/2020,12/01,12/01/2020 Covid-19, Mrna, Lnp-s, Pf, 3 0 Mcg/0.3 Ml Dose, Lisandro-sucrose 04/29/2022 H1N1 Inj Preservative Free 12/20/2009,11/29/2009 Influenza (IM) Preservative Free 10/06/2016 Influenza High Dose Preserva tive Free IM 09/03/2020,09/02/2019 Influenza Split Preservative Free ID 10/19/2016 Influenza, High-dose, Quadrivalent 11/01,10/15/2022,08/29/2021,08/07,08/07/2014 Influenza, Im Trivalent Preservative 08/11/2020, 07/29/2020,08/29/2019 Influenza, Injectable, Mdck, Preservative Free, Quad 09/27/2017 Influenza, Injectable, Quadrivalent 09/03/2020,1 10/29/2019 Influenza, Trivalent, Adjuvanted 10/13/2024 Influenza, Unspecified 10/15/2022,2020,08/29/2021,09/03,08/29/2020,08/11/2020,07/29/2020 ,09/02/2019,08/29/2019,08/11/2019,08/31,10/19/2016,10/06/2016, 4 Pneumococcal Conjugate 13-Valent 04/10/2016,06/0 06/2016,10/02/2013 Pneumococcal Polysaccharide 09/13/2020,1 10/29/2019,07/29/2014,10/29,10/29/2010,02/21/2010 SARS-COV-2 (COVID-19) Vaccin e, Unspecified 04/29/2022 Td (adult), 2 Lf tetanus tox oid, preservative free, adsorbed 09/06/1999,09/06/1999 Td, Unspecified 09/06/1999 Tdap 02/20/2023,02/21/2010 Zoster Live 02/14/2013 Zoster Vaccine Recombinant 06/17/2019,,04/15/2019,03/29 Family History Medical History Relation Name Comments Cardiomyopathy Brother Heart attack Brother Parkinsonism Brother Sleep apnea Brother Stroke Brother Diabetes Daughter Alcohol abuse Father Lung disease Father Diabetes Mother Heart attack Sister Cancer Son Relation Name Status Comments Brother Daughter Alive Father Mother Sister Son Social History Tobacco Use Types Packs/Day Years Used Date Smoking Tobacco: Never Smokeless Tobacco: Never Tobacco Cessation:Counseling Given: Not Answered Alcohol Use Standard Drinks/Week Comments Not Currently 0 (1 standard drink = 0.6 oz pur e alcohol) Educerusities Answer Date Recorded In the past 12 months has [employer] electric, gas, oil, or water [employer] threatened to shut off services in your home? No 11/25/2024 Social Connection and Isolat ion Panel [NHANES] Answer Date Recorded In a typical week, how many times do you talk on the phone with family, friends, or neighbors? More than three times a week 11/25/2024 How often do you get togethe r with friends or relatives? Once a week 11/25/2024 How often do you attend chur or confucianist services? Never 11/25/2024 Do you belong to any clubs o r organizations such as spiritism groups, unions, fraternal or athletic groups, or school groups? No 11/25/2024 How often do you attend meet ings of the clubs or organizations you belong to? Never 11/25/2024 Are you , , di vorced, , never , or living with a partner? 11/25/2024 AUDIT-C Answer Date Recorded Q1: How often [...] PHQ-2 Answer Date Recorded Total Score 0 07/09/2025 [facility] - Occupational Stress [...] Recorded Do you need help finding a [facility] career center and/or a training program? No 02/20/2023 Hunger Screening Answer Date Recorded Within the past 12 months we worried whether our food would run out before we got money to buy more. Never True 07/09/2025 Within the past 12 months th e food we bought just didn't last and we didn't have money to get more. Never True 07/09/2025 Purpose - Life Answer Date Recorded I have a purpose and direction in my life. Stron gly Agree 02/20/2023 Comments No Sex and Gender Information Value Date Recorded Sex Assigned at Not on file Legal Sex Female 5:58 PM EDT Gender Identity Not on file Sexual Orientation Not on file Last Filed Vital Signs Vital Sign Reading Time Taken Comments Blood Pressure 110/64 07/09/2025 10:02 AM EDT Pulse 69 07/09/2025 10:02 AM EDT Temperature 36.4 C (97.5 F) 07/09/2025 10:02 AM EDT Respiratory Rate 18 07/09/2025 10:02 AM EDT Oxygen Saturation 99% 07/09/2025 10:02 AM EDT Inhaled Oxygen Concentration - - Weight 85.4 kg (188 lb 3.2 oz) 07/09/2025 10:02 AM EDT Height 160 cm (5' 2.99 ) 07/09/2025 10:02 AM EDT Body Mass Index 33.35 07/09/2025 10:02 AM EDT Plan of Treatment Upcoming Encounters Date Type Department Care Team (Late st Contact Info) Description 11/26/2025 1:40 PM EST Office Visit [facility] [address] [place] [address] 01/06/2026 10:00 AM EDT Office Visit [facility] [address] [place] [address] Connor Jean Baptiste, DO [address], [facility] [place] [address] Health Maintenance Due Date Last Done Comments COVID-19 Vaccine ( season) 2025 11/01/2023, 04/29/2022, 04/29/2022, Additional history exists Influenza Vaccine 06/29/2025 10/13/2024, , 10/15/2022, Additional history exists Medicare Annual Wellness Visit 11/25/2025 11/25/2024 , 06/21/2023 Depression Screening 07/09/2026 07/09/2025 Fall Risk Screening 07/09/2026 07/09/2025 Tobacco Screening 07/09/2026 07/09/2025 DTaP,Tdap and Td Vaccines (6 - Td or Tdap) 02/20/2033 02/20/2023, 02/21/2010, 09/06/1999, Additional history exists Zoster (Shingles) Vaccine Completed 2018, 05/29/2019, 04/15/2019, Additional history exists Medical Devices Not on file Procedures Procedure Name Priority Date/Time Associated Diagnosis Comments HEMOGLOBIN A1C Routine 07/09/2025 10:32 AM EDT History of diabetes mellitus, type II LIPID PROFILE Routine 07/09/2025 10:32 AM EDT Hyperlipidemia, unspecified hyperlipidemia type COMPREHENSIVE METABOLIC PANEL Routine 07/09/2025 10:32 AM EDT Primary hypertension THYROID PROFILE INCLUDES TSH FT4 Routine 07/09/2025 10:32 AM EDT Acquired hypothyroidism from Last 3 Months Results * Thyroid profile includes TSH FT4 (07/09/2025 10:32 AM EDT) FREE T4 1.17 0.61 - 1.60 ng/dL 07/09/2025 8:36 PM EDT [facility] TSH 0.50 0.49 - 4.67 uIU/mL 07/09/2025 8:36 PM EDT [facility] Blood Venous blood / Unknown 07/09/2025 10:32 AM EDT 07/09/2025 10:32 AM EDT us Connor Jean Baptiste DO LAB BLOOD ORDERABLES Final R esult [facility] [address] [place] [address], [place] [phone] * (ABNORMAL) Hemoglobin A1c (07/09/2025 10:32 AM EDT) HEMOGLOBIN A1C 5.8(H) 4.4 - 5.6 % 07/09/2025 8:58 PM EDT [facility] Comment: ADA Guidelines Result HgbA1c Normal : less than 5.7 % Prediabetes : 5.7 % to 6.4 % Diabetes : > 6.4 % Use with caution in patients with abnormal hemoglobin variants as the half-life of red blood cells and in vivo glycation rates are affected. EST. AVERAGE GLUCOSE 120 mg/dL 07/09/2025 8:58 PM EDT [facility] Blood Venous blood / Unknown 07/09/2025 10:32 AM EDT 07/09/2025 10:32 AM EDT us Connor Jean Baptiste DO LAB BLOOD ORDERABLES Final R esult [facility] [address] [place] [address], [place] [phone] * Lipid profile (07/09/2025 10:32 AM EDT) Pathologist [facility] [place] CHOLESTEROL 150 150 - 200 mg/dL 07/09/2025 8:27 PM EDT [facility] TRIGLYCERIDE 59 27 - 150 mg/dL 07/09/2025 8:27 PM EDT [facility] HDL CHOLESTEROL 59 >39 mg/dL 8:27 PM EDT [facility] Comment: HDL <40 mg/dL - High Risk HDL > or = 40mg/dL- Desirable HDL >60 mg/dL - Negative Risk LDL (CALC) 79 <130 mg/dL 07/09/2025 8:27 PM EDT [facility] Comment: LDL <100 mg/dL - Desirable LDL >160 mg/dL - High Risk CHOLESTEROL:HDL 2.5 1.0 - 5.0 8:27 PM EDT [facility] VERY LOW LIPOPROTEIN 12 0 - 30 mg/dL 07/09/2025 8:27 PM EDT [facility] Blood Venous blood / Unknown 07/09/2025 10:32 AM EDT 07/09/2025 10:32 AM EDT us Connor Joseph Jean Baptiste DO LAB BLOOD ORDERABLES Final R esult [facility] [address] [place] [id number], [place] [phone] * Comprehensive metabolic panel (07/09/2025 10:32 AM EDT) SODIUM 142 134 - 146 mmol/L 07/09/2025 8:27 PM EDT [facility] POTASSIUM 4.6 3.5 - 5.0 mmol/L 07/09/2025 8:27 PM EDT [facility] CHLORIDE 105 98 - 109 mmol/L 07/09/2025 8:27 PM EDT [facility] CARBON DIOXIDE 31 22 - 32 mmol/L 07/09/2025 8:27 PM EDT [facility] ANION GAP 6 5 - 15 mmol/L 07/09/2025 8:27 PM EDT [facility] BLOOD UREA NITROGEN 11 5 - 27 mg/dL 07/09/2025 8:27 PM EDT [facility] CREATININE 0.77 0.40 - 1.00 mg/dL 07/09/2025 8:27 PM EDT [facility] Comment:METHOD TRACEABLE TO IDMS STANDARD GLUCOSE 93 65 - 99 mg/dL 07/09/2025 8:27 PM EDT [facility] CALCIUM 9.8 8.5 - 10.5 mg/dL 07/09/2025 8:27 PM EDT [facility] TOTAL PROTEIN 6.9 6.0 - 8.0 g/dL 07/09/2025 8:27 PM EDT [facility] ALBUMIN 3.9 3.2 - 5.3 g/dL 07/09/2025 8:27 PM EDT [facility] ALKALINE PHOSPHATASE 94 39 - 130 U/L 07/09/2025 8:27 PM EDT [facility] AST 14 <=41 U/L 07/09/2025 8:27 PM EDT [facility] ALT 8 <=31 U/L 07/09/2025 8:27 PM EDT [facility] BILIRUBIN,TOTAL 0.4 0.3 - 1.2 mg/dL 07/09/2025 8:27 PM EDT [facility] EGFR Non-Race Dependent 80 >=60 ml/min/1.7 3sq.m 07/09/2025 8:27 PM EDT [facility] Comment: Reported eGFR is based on the CKD-EPI 2020 equation that does not use a race coefficient. Blood Venous blood / Unknown 07/09/2025 10:32 AM EDT 07/09/2025 10:32 AM EDT Connor Jean Baptiste DO LAB BLOOD ORDERABLES Final R esult [facility] [address] [place] [address], [place] [phone] from Last 3 Months Insurance MEDICARE [facility] [place] [address] Care Teams Leather Cutter Relationship Specialty Start Date End Date Connor Jean Baptiste DO [address] [facility], [facility] [place] [address] PCP - General Family Medicine 11/13/22 Yuni Borja [facility] 11/20/24
--- OUTSIDE RECORDS SUMMARY | 2025-08-03 15:24 | XMS_ITS | Encounter Summary ---
Author Organization [facility] tem Address [id number] [address] [place] [address] Care Team Providers Care Biomaterials Engineer Name Role Phone Connor Jean Baptiste DO Primary Care Provider + [phone] Encounter Details Date Type Department Care Team (Late st Contact Info) Description 02/21/2023 Orders Only [facility] - Family Medicine [address] [place] [phone] Connor Jean Baptiste DO [address], [address] [place], [place] [id number] Social History Tobacco Use Types Packs/Day Years [...] often do you attend chur ch or adventist services? 1 to 4 times per year 02/20/2023 Do you belong to any clubs o r organizations such as roman catholic groups, unions, fraternal or athletic groups, or [...] Answer Date Recorded Total Score 0 02/20/2023 [facility] ional Health - Occupational [...] Medicine - Family Medicine [address] [place] [address] 01/06/2026 10:00 AM EDT Office Visit [facility] - Family Medicine [address] [place] [address] Connor Jean Baptiste DO [address] [facility] [address] documented as of this encounter Procedures Procedure Name Priority Date/Time Associated Diagnosis Comments MAMMOGRAPHY Routine 05/04/2022 HEPATITIS C(HCV) ANTIBODY W/ REFLEX TO PCR Routine 04/30/2016 documented in this encounter Results * MAMMOGRAPHY (05/04/2022) Anatomical Region Laterality Modality Other us Connor Jean Baptiste DO HEALTH MAINTENANCE Final Res ult * Hepatitis C(HCV) Ab w/ Reflex to PCR (04/30/2016) us Connor Jean Baptiste DO LAB BLOOD ORDERABLES Final R esult [facility]CRIB[facility] LAB RESULTS documented in this encounter Visit Diagnoses Not on filedocumented in this encounter Additional Health Concerns Assessment Noted Time PHQ-9 Depression Total Score: 0 02/21/20 23 3:47 PM EDT documented as of this encounter Care Teams Biomaterials Engineer Relationship Specialty Start Date End Date Connor Jean Baptiste DO [address], [place] [address] PCP - General Family Medicine 11/13/22 Amanda Izquierdo [facility] 04/04/24 Lea Jansen [facility] Nurse - [facility] 07/01/24 Yuni oBrja [facility] Nurse - [facility] 11/20/24 documented as of this encounter
--- OUTSIDE RECORDS SUMMARY | 2025-08-03 15:24 | XMS_ITS | Encounter Summary ---
Author Organization [employer] s tem Address [id number] [address] [place] [address] Care Team Providers Care Corncob Pipe Manufacturing Supervisor Name Role Phone Connor Jean Baptiste DO Primary Care Provider +[phone]- [phone] Encounter Details Date Type Department Care Team (Late st Contact Info) Description 10/31/2022 Orders Only [facility] Internal Medicine - Family Medicine [address] [place] [address] Devon Man DO [address] [place] [address] Colon cancer screening (Primary Dx) Social History Tobacco Use Types Packs/Day Years [...] Encounters Date Type Department Care Team (Late Contact Info) Description 11/26/2025 1:40 PM EST Office Visit [facility] - Family Medicine [address] [place] [address] 01/06/2026 10:00 AM EDT Office Visit [facility] - Family Medicine [address] [place] [address] Connor Jean Baptiste DO [address], [place] [address] documented as of this encounter Visit Diagnoses Diagnosis Colon cancer screening- Primary Special screening for malignant neoplasms, colon documented in this encounter Care Teams Corncob Pipe Manufacturing Supervisor Relationship Specialty Start Date End Date Connor Jean Baptiste DO [address] [place] [address] PCP - General Family Medicine 11/13/22 Amanda Izquierdo [facility] Nurse - [employer] 04/04/24 Lea Jansen [facility] Nurse - [employer] 07/01/24 Yuni Borja [facility] Nurse - [employer] 11/20/24 documented as of this encounter
--- OUTSIDE RECORDS SUMMARY | 2025-08-03 15:24 | XMS_ITS | Encounter Summary ---
Author Organization [facility] Sys tem Address [id number] [address] [place] [address] Care Team Providers Care Cloud Automation Tester Name Role Phone Connor Jean Baptiste Primary Care Provider + [phone] Encounter Details Date Type Department Care Team (Late st Contact Info) Description 10/17/2023 Orders Only [facility] Internal Medicine - Family Medicine [address] [place] [address] External, Scanning Provider Social History Tobacco Use [...] often do you attend chur ch or synagogue services? Never 06/21/2023 Do you belong to any clubs o r organizations such as tenriism groups, unions, fraternal or athletic groups, or [...] Answer Date Recorded Total Score 0 07/23/2023 [facility] of Occupat ional Health - Occupational [...] Recorded Do you need help finding a [facility] career center and/or a training program? [...] Internal Medicine - Family Medicine [address] [place] [address] 01/06/2026 10:00 AM EDT Office Visit [facility] - Family Medicine [address] [place] [address] Connor Jean Baptiste DO [address], [place] [address] documented as of this encounter Visit Diagnoses Not on filedocumented in this encounter Additional Health Concerns Assessment Noted Time PHQ-9 Depression Total Score: 0 07/23/20 10:04 AM EDT documented as of this encounter Care Teams Cloud Automation Tester Relationship Specialty Start Date End Date Connor Jean Baptiste DO [address], [place] [address] PCP - General Family Medicine 11/13/22 Amanda Izquierdo [facility] Nurse - [employer] 04/04/24 Lea Jansen [facility] Nurse - [employer] 07/01/24 Yuni Borja [facility] Nurse - [employer] 11/20/24 documented as of this encounter
--- OUTSIDE RECORDS SUMMARY | 2025-08-03 15:24 | XMS_ITS | Encounter Summary ---
Author Organization [facility] Address [address] [place] [address] Phone Care Team Providers Care Mechanical Drafter Name Role Phone Connor Jean Baptiste DO Primary Care Provider Encounter Details Date Type Department Care Team (Late st Contact Info) Description 02/25/2022 Orders Only [facility] [address] [place] [address] Conversion, Onbase Social History Tobacco Use Types [...] Description 08/27/2025 11:20 AM EDT Office Visit [address] [facility] [address] [place] [address] Carmen Chi MD [address] [facility] [address], [address] [place] [address] Scheduled Orders Name Type Priority Associated Diagnoses Orde r Schedule OUTSIDE LAB SCAN Lab Ordered: 02/25/2022 documented as of this encounter Visit Diagnoses Not on filedocumented in this encounter Care Teams Mechanical Drafter Relationship Specialty Start Date End Date Connor Jean Baptiste DO PCP - General 10/29/19 documented as of this encounter
--- OUTSIDE RECORDS SUMMARY | 2025-08-03 15:24 | XMS_ITS | Encounter Summary ---
Author Organization [facility] Address [facility]-[id number] [address] [place] [address] Care Team Providers Care House Worker Name Role Phone Connor Jean Baptiste DO Primary Care Provider + [phone] Reason for Visit * Reason Comments Med Refill Encounter Details Date Type Department Care Team (Late st Contact Info) Description 07/03/2023 Refill [facility] Internal Medicine - Family Medicine [address] [place] [address] Connor Jean Baptiste DO [address], [facility] [place], [place] [id number] Proteinuria, unspecified Social History Tobacco Use Types Packs/Day Years [...] often do you attend chur ch or advent services? Never 06/21/2023 Do you belong to any clubs o r organizations such as sabianism groups, unions, fraternal or athletic groups, or [...] PHQ-2 Answer Date Recorded Total Score 0 06/21/2023 [facility] of Occupat ional Health - Occupational [...] Do you need help finding a [facility] career center and/or a training [...] Medicine - Family Medicine [address] [place] [address] 01/06/2026 10:00 AM EDT Office Visit [facility] Internal Medicine - Family Medicine [address] [place] [address] Connor Jean Baptiste DO [address] [facility] [place] [address] documented as of this encounter Visit Diagnoses Diagnosis Proteinuria, unspecified documented in this encounter Additional Health Concerns Assessment Noted Time PHQ-9 Depression Total Score: 0 06/21/20 23 11:46 AM EDT documented as of this encounter Care Teams House Worker Relationship Specialty Start Date End Date Connor Jean Baptiste DO [address] [place] [address] PCP - General Family Medicine 11/13/22 Amanda Izquierdo [facility] Nurse - [employer] 04/04/24 Lea Jansen [facility] Nurse - [employer] 07/01/24 Yuni Borja [facility] Nurse - [employer] 11/20/24 documented as of this encounter
--- OUTSIDE RECORDS SUMMARY | 2025-08-03 15:24 | XMS_ITS | Encounter Summary ---
Author Organization [facility] [employer] s tem Address [id number] [address] [place] [address] Care Team Providers Care Manager Military Name Role Phone Connor Jean Baptiste DO Primary Care Provider +[phone] Encounter Details Date Type Department Care Team (Late st Contact Info) Description 10/11/2023 Telephone [facility] Internal Medicine - Family Medicine [address] [place] [address] Connor Jean Baptiste DO [address], [facility] [place] [address] Social History Tobacco Use Types Packs/Day Years [...] often do you attend chur ch or buddhist services? Never 06/21/2023 Do you belong to any clubs o r organizations such as mosque groups, unions, fraternal or athletic groups, or [...] Answer Date Recorded Total Score 0 07/23/2023 [facility] of Occupat ional Health - Occupational Stress [...] purpose and direction in my life. Lyn guzmán Agree 02/20/2023 Comments No Sex and Gender Information Value Date Recorded Sex Assigned at Not on file Legal Sex Female 5:58 PM EDT Gender Identity Not on file Sexual Orientation Not on file documented as of this encounter Miscellaneous Notes * Telephone Encounter - Jazmin aCrranza - 10/11/2023 10:52 AM EST Patient came into the office and she was wondering about her memory testing and if theres anything that she needs to follow up on or anything like that * Telephone Encounter - Connor Jean Baptiste DO - 10/11/2023 10:52 AM EST According to my note she didn't want an MRI or consult. She was ok with checking labs but she couldn't give us a urine specimen at that time. She can get that done. If she would like the MRI or consult then I will send a referral * Telephone Encounter - Jazmin Carranza - 10/11/2023 10:52 AM EST For her memory, she wants to know the results and next steps to help with that * Telephone Encounter - Connor Jean Baptiste DO - 10/11/2023 10:52 AM EST Looks like I sent a referral to Dr. Thomas in [place]. She should try to get hold of him. I reset a UA to [place] * Telephone Encounter - Jazmin Carranza - 10/11/2023 10:52 AM EST CONSULT NOTES ARE IN THERE I SENT THEM TO YOU * Telephone Encounter - Connor Jean Baptiste DO - 10/11/2023 10:52 AM EST He does not think she has dementia. It just normal aging. I am surprised he did not tell her that at the visit but there is no need for further testing but I would get the UA done though * Telephone Encounter - Jazmin Carranza - 10/11/2023 10:52 AM EST PT NOTIFIED documented in this encounter Plan of Treatment Upcoming Encounters Date Type Department Care Team (Late st Contact Info) Description 11/26/2025 1:40 PM EST Office Visit [facility] - Family Medicine [address] [place] [address] 01/06/2026 10:00 AM EDT Office Visit [facility] Medicine - Family Medicine [address] [place] [address] Connor Jean Baptiste DO [address], [facility] [place] [address] documented as of this encounter Visit Diagnoses Not on filedocumented in this encounter Additional Health Concerns Assessment Noted Time PHQ-9 Depression Total Score: 0 07/23/20 10:04 AM EDT documented as of this encounter Care Teams Manager Military Relationship Specialty Start Date End Date Connor Jean Baptiste DO [address], [facility] [place] [address] PCP - General Family Medicine 11/13/22 Amanda Izquierdo [facility] Nurse - [employer] 04/04/24 Lea Jansen [facility] Nurse - [employer] 07/01/24 Yuni Borja [facility] Nurse - [employer] 11/20/24 documented as of this encounter
--- OUTSIDE RECORDS SUMMARY | 2025-08-03 15:24 | XMS_ITS | Encounter Summary ---
Author Organization [facility] Address [address] [place] [address] Phone Care Team Providers Care Wellness Coach Name Role Phone Connor Jean Baptiste DO Primary Care Provider Encounter Details Date Type Department Care Team (Late st Contact Info) Description 11/16/2020 Orders Only [facility] [address] [place] [address] Conversion, Onbase Social History Tobacco Use Types [...] Description 08/27/2025 11:20 AM EDT Office Visit [address] [facility] [address] [place] [address] Carmen Chi MD 703 [facility] 2, [address] [place] [address] Scheduled Orders Name Type Priority Associated Diagnoses Orde r Schedule OUTSIDE LAB SCAN Lab Ordered: 11/16/2020 documented as of this encounter Visit Diagnoses Not on filedocumented in this encounter Care Teams Wellness Coach Relationship Specialty Start Date End Date Connor Jean Baptiste DO PCP - General 10/29/19 documented as of this encounter
--- OUTSIDE RECORDS SUMMARY | 2025-08-03 15:24 | XMS_ITS | Encounter Summary ---
Author Organization [facility] Sys tem Address [id number] [address] [place] [address] Care Team Providers Care Sample Supervisor Name Role Phone Connor Jean Baptiste DO Primary Care Provider [phone] Encounter Details Date Type Department Care Team (Late st Contact Info) Description 07/21/2024 Orders Only [facility] Internal Medicine - Family Medicine [address] [place] [address] Connor Jean Baptiste DO [address], [place] [address] Primary hypertension; Memory loss Social History Tobacco Use Types Packs/Day Years [...] often do you attend chur ch or restorationism services? Never 06/21/2023 Do you belong to any clubs o r organizations such as yazdanism groups, unions, fraternal or athletic groups, or [...] Answer Date Recorded Total Score 0 02/18/2024 [facility] of Occupat ional Health - [...] Recorded Do you need help finding a [facility] career center and/or a training program? [...] - Family Medicine [address] [place] [address] 01/06/2026 10:00 AM EDT Office Visit [facility] Internal Medicine - Family Medicine [address] [place] [address] Connor Jean Baptiste DO [address] [facility] [place] [address] documented as of this encounter Procedures Procedure Name Priority Date/Time Associated Diagnosis Comments URINALYSIS Routine 07/15/2024 Primary hypertension Memory loss documented in this encounter Results * Urinalysis (clean catch) (07/15/2024) Urine specimen collection, clean catch / Unknown 07/15/2024 us Connor Jean Baptiste DO URINE ORDERABLES Final Resul t MANUALLY TRANSCRIBED RESULTS documented in this encounter Visit Diagnoses Diagnosis Primary hypertension Unspecified essential hypertension Memory loss documented in this encounter Additional Health Concerns Assessment Noted Time PHQ-9 Depression Total Score: 0 02/18/20 24 10:08 AM EDT A Body Mass Index follow-up plan has been documented for the patient 02/18/2024 5:31 PM EDT documented as of this encounter Care Teams Sample Supervisor Relationship Specialty Start Date End Date Connor Jean Baptiste DO [address] [place] [address] [address] PCP - General Family Medicine 11/13/22 Desiree Jansen [facility] Nurse - [employer] 07/01/24 Yuni Borja [facility] Nurse - [employer] 11/20/24 documented as of this encounter
--- OUTSIDE RECORDS SUMMARY | 2025-08-03 15:24 | XMS_ITS | Encounter Summary ---
Author Organization [facility] Sys tem Address [id number] [address] [place] [address] Care Team Providers Care Shop Router Name Role Phone Connor Jean Baptiste Primary Care Provider + [phone] Encounter Details Date Type Department Care Team (Late st Contact Info) Description 09/22/2024 Orders Only [facility] Internal Medicine - Family Medicine [address] [place] [address] Ref Prov, [place] [address] Social History Tobacco Use Types Packs/Day Years [...] often do you attend chur ch or anabaptist services? Never 06/21/2023 Do you belong to any clubs o r organizations such as cheondoism groups, unions, fraternal or athletic groups, or [...] Answer Date Recorded Total Score 0 08/18/2024 [facility] of Occupat [facility] Health - Occupational Stress Questionnaire Answer Date [...] Recorded Do you need help finding a [facility] career center and/or a training program? [...] Medicine - Family Medicine [address] [place] [address] 01/06/2026 10:00 AM EDT Office Visit [facility] Internal Medicine - Family Medicine [address] [place] [address] Connor Jean Baptiste DO [address], [facility] [place] [address] documented as of this encounter Procedures Procedure Name Priority Date/Time Associated Diagnosis Comments FL FLUOROSCOPY UP TO 1 HOUR Routine 09/11/2024 1:24 PM EST documented in this encounter Results * Fluoroscopy less than one hour (09/11/2024 1:24 PM EST) Anatomical Region Laterality Modality Radiographic [place] ging us Not In System Ref Prov IMG FLUOROSCOPY ORDERABLE S Final Result documented in this encounter Visit Diagnoses Not on filedocumented in this encounter Additional Health Concerns Assessment Noted Time PHQ-9 Depression Total Score: 0 08/18/20 24 10:46 AM EDT A Body Mass Index follow-up plan has been documented for the patient 02/18/2024 5:31 PM EDT documented as of this encounter Care Teams Shop Router Relationship Specialty Start Date End Date Connor Jean Baptiste DO [address] [place] [address] PCP - General Family Medicine 11/13/22 Desiree [facility]ansen [facility] 07/01/24 Yuni Borja [facility] Nurse - [employer] 11/20/24 documented as of this encounter
--- OUTSIDE RECORDS SUMMARY | 2025-08-03 15:24 | XMS_ITS | Encounter Summary ---
Author Organization [employer] s tem Address [id number] [address] [place] [address] Care Team Providers Care Historic Sites Registrar Name Role Phone Connor Jean Baptiste DO Primary Care Provider [phone]- [phone] Encounter Details Date Type Department Care Team (Late Contact Info) Description 08/24/2022 Orders Only [facility] Family Medicine [address] [place] [address] Ref Prov, [place] [address] Social History Tobacco Use Types Packs/Day Years [...] Upcoming Encounters Date Type Department Care Team ([facility] Contact Info) Description 11/26/2025 1:40 PM EST [facility] [address] [place] [address] 01/06/2026 10:00 AM EDT [facility] [address] [place] [address] Connor Jean Baptiste DO [address] [place] [address] documented as of this encounter Procedures Procedure Name Priority Date/Time Associated Diagnosis Comments URINE CULTURE Routine 08/24/2022 documented in this encounter Results * Urine Culture (08/24/2022) Urine us Not In System Ref Prov MICROBIOLOGY - GENERAL OR DERABLES Final Result MANUALLY TRANSCRIBED RESULTS documented in this encounter Visit Diagnoses Not on filedocumented in this encounter Care Teams Historic Sites Registrar Relationship Specialty Start Date End Date Connor Jean Baptiste DO [address] [facility], [place] [address] PCP - General Family Medicine 11/13/22 Amanda Izquierdo [facility] Nurse - [employer] 04/04/24 Lea Jansen [facility] Nurse - [employer] 07/01/24 Yuni Borja [facility] Nurse - [employer] 11/20/24 documented as of this encounter
--- OUTSIDE RECORDS SUMMARY | 2025-08-03 15:24 | XMS_ITS | Encounter Summary ---
Author Organization [facility] [employer] s tem Address [id number] [address] [place] [address] Care Team Providers Care Bias Cutting Machine Operator Name Role Phone Connor Jean Baptiste DO Primary Care Provider +[phone] Encounter Details Date Type Department Care Team (Late st Contact Info) Description 07/23/2023 Telephone [facility] Internal Medicine - Family Medicine [address] [place] [address] Connor Jean Baptiste DO [address], [facility] [place], [place] [address] Social History Tobacco Use Types Packs/Day Years [...] you attend chur ch or adventist services? Never 06/21/2023 Do you belong to any clubs o r organizations such as presybeterian groups, unions, fraternal or athletic groups, or [...] Answer Date Recorded Total Score 0 07/23/2023 [facility] [place] of Occupat ional Health - Occupational Stress [...] encounter Miscellaneous Notes * Telephone Encounter - Fernanda Ulrich - 07/23/2023 4:23 PM EDT Spoke to patient about her urine and she would like her lab order sent to [facility] so she can do it whenshe has her mammogram. documented in this encounter Plan of Treatment Upcoming Encounters Date Type Department Care Team (Late st Contact Info) Description 11/26/2025 1:40 PM EST Office Visit [facility] Internal Medicine - Family Medicine [address] [place] [address] 01/06/2026 10:00 AM EDT Office Visit [facility] Medicine - Family Medicine [address] [place] [address] Connor Jean Baptiste DO [address] [place] [address] documented as of this encounter Visit Diagnoses Not on filedocumented in this encounter Additional Health Concerns Assessment Noted Time PHQ-9 Depression Total Score: 0 07/23/20 10:04 AM EDT documented as of this encounter Care Teams Bias Cutting Machine Operator Relationship Specialty Start Date End Date Connor Jean Baptiste DO [address] [facility] [address] PCP - General Family Medicine 11/13/22 Amanda Izquierdo [facility] 04/04[facility]24 4 Desiree Jansen CCM Nurse - [employer] 07/01/24 Yuni Borja [facility] Nurse - [employer] 11/20/24 documented as of this encounter
--- OUTSIDE RECORDS SUMMARY | 2025-08-03 15:25 | XMS_ITS | Encounter Summary ---
Author Organization [facility] [employer] Sys tem Address [facility]-[id number] [address] [place] [address] Care Team Providers Care Movement Therapist Name Role Phone Connor Jean Baptiste Primary Care Provider + [phone] Encounter Details Date Type Department Care Team (Late st Contact Info) Description 02/19/2025 [facility]phone [facility] [address] [place] [address] Mone Morataya CMA Social History Tobacco Use Types Packs/Day Years Used Date Smoking Tobacco: Never Smokeless Tobacco: Never Alcohol Use Standard Drinks/Week Comments Not Currently 0 (1 standard drink = 0.6 oz pur e alcohol) [facility] Utilities Answer Date Recorded In the past 12 months has e electric, gas, oil, or water company threatened to shut off services in your [...] 11/25/2024 How often do you attend chur ch or christian services? Never 11/25/2024 Do you belong to any clubs o r organizations such as mormonism groups, unions, fraternal or athletic groups, or [...] PHQ-2 Answer Date Recorded Total Score 0 01/19/2025 [facility] of Occupat ional Health - Occupational Stress [...] got money to buy more. Never True 01/19/2025 Within the past 12 months th e food we bought just didn't last and we didn't have money to get more. Never True 01/19/2025 Purpose - Life Answer Date Recorded I [...] Telephone Encounter - Mone Morataya CMA - 02/19/2025 12:58 PM EDT Can you put this pts MRI w/o contrast in so she can get it done at [facility]? * Telephone Encounter - Connor Jean Baptiste DO - 02/19/2025 12:58 PM EDT ok documented in this encounter Plan of Treatment Upcoming Encounters Date Type Department Care Team (Late st Contact Info) Description 11/26/2025 1:40 PM EST Office Visit [facility] - Family Medicine [address] [place] [address] 01/06/2026 10:00 AM EDT Office Visit [facility] - Family Medicine [address] [place] [address] Connor Jean Baptiste DO [address] [facility] [place] [address] documented as of this encounter Visit Diagnoses Not on filedocumented in this encounter Additional Health Concerns Assessment Noted Time PHQ-9 Depression Total Score: 0 01/20/20 10:53 AM EDT A Body Mass Index follow-up plan has been documented for the patient 02/18/2024 5:31 PM EDT documented as of this encounter Care Teams Movement Therapist Relationship Specialty Start Date End Date Connor Jean Baptiste DO [address] [facility], [place] [address] PCP - General Family Medicine 11/13/22 Yuni Borja [facility] 11/20/24 documented as of this encounter
--- OUTSIDE RECORDS SUMMARY | 2025-08-03 15:25 | XMS_ITS | Encounter Summary ---
Author Organization [facility] tem Address [facility] [place]-[id number] [address] [place] [address] Care Team Providers Care Computer Information Systems Professor Name Role Phone Connor Jean Baptiste DO Primary Care Provider [phone] Encounter Details Date Type Department Care Team (Late st Contact Info) Description 07/12/2025 Results Follow-Up [facility] Internal Medicine - Family Medicine [address] [place] [address] Connor Jean Baptiste DO [address], [place] [address] Thyroid profile includes TSH FT4, Comprehensive metabolic panel, Lipid profile, Hemoglobin A1c Social History Tobacco Use Types Packs/Day Years Used Date Smoking Tobacco: Never Smokeless Tobacco: Never Alcohol Use Standard Drinks/Week Comments Not Currently 0 (1 standard drink = 0.6 oz pur e alcohol) [facility] Utilities Answer Date Recorded In the past 12 months has [employer], gas, oil, or water [employer] threatened to shut off services in your [...] How often do you attend chur or gnosticism services? Never 11/25/2024 Do you belong to any clubs o r organizations such as scientology groups, unions, fraternal or athletic groups, or [...] Answer Date Recorded Total Score 0 07/09/2025 [facility] of Occupat ional Health - [...] Medicine - Family Medicine [address] [place] [address] 01/06/2026 10:00 AM EDT [facility] [address] [place] [address] Connor Jean Baptiste DO [address] [facility] [address] documented as of this encounter Visit Diagnoses Not on filedocumented in this encounter Additional Health Concerns Assessment Noted Time PHQ-9 Depression Total Score: 0 07/09/20 10:02 AM EDT A Body Mass Index follow-up plan has been documented for the patient 07/09/2025 11:14 AM EDT documented as of this encounter Care Teams Computer Information Systems Professor Relationship Specialty Start Date End Date Connor Jean Baptiste DO [address] [facility] [address] PCP - General Family Medicine 11/13/22 Yuni Borja [facility] Nurse - [facility] 11/20/24 documented as of this encounter
--- OUTSIDE RECORDS SUMMARY | 2025-08-03 15:25 | XMS_ITS | Encounter Summary ---
Author Organization [facility] tem Address [facility] [place] [place]-[id number] [address] [place] [address] Care Team Providers Care Relief Pilot Name Role Phone Connor Jean Baptiste DO Primary Care Provider [phone] Encounter Details Date Type Department Care Team (Late st Contact Info) Description 10/15/2024 Orders Only [facility] Internal Medicine - Family Medicine [address] [place] [id number] Connor Jean Baptiste DO [address], [address] [place], [place] [id number] Social History Tobacco Use Types Packs/Day Years [...] often do you attend chur ch or jainism services? Never 06/21/2023 Do you belong to any clubs o r organizations such as faith groups, unions, fraternal or athletic groups, or [...] PHQ-2 Answer Date Recorded Total Score 0 10/13/2024 [facility] of Occupat ional Health - Occupational Stress [...] got money to buy more. Never True 10/13/2024 Within the past 12 months th e food we bought just didn't last and we didn't have money to get more. Never True 10/13/2024 Purpose - Life Answer Date Recorded I [...] Medicine - Family Medicine [address] [place] [address] 01/06/2026 10:00 AM EDT Office Visit [facility] Internal Medicine - Family Medicine [address] [place] [address] Connor Jean Baptiste DO [address], [place] [address] documented as of this encounter Procedures Procedure Name Priority Date/Time Associated Diagnosis Comments EVENT MONITOR Routine 09/11/2024 9:45 AM EST documented in this encounter Visit Diagnoses Not on filedocumented in this encounter Additional Health Concerns Assessment Noted Time PHQ-9 Depression Total Score: 0 10/13/20 24 8:37 AM EST A Body Mass Index follow-up plan has been documented for the patient 02/18/2024 5:31 PM EDT documented as of this encounter Care Teams Relief Pilot Relationship Specialty Start Date End Date Connor Jean Baptiste DO [address], [place] [address] PCP - General Family Medicine 11/13/22 Desiree Jansen CCM Nurse - [employer] 07/01/24 Yuni Borja [facility] Nurse - [employer] 11/20/24 documented as of this encounter
--- OUTSIDE RECORDS SUMMARY | 2025-08-03 15:25 | XMS_ITS | Encounter Summary ---
[facility] Address [facility] [place]-[id number] [address] [place] [address] Care Team Providers Care Supercharger Mechanic Name Role Phone Connor Jean Baptiste Primary Care Provider + [phone] Encounter Details Date Type Department Care Team (Late st Contact Info) Description 03/19/2025 Telephone [facility] Internal Medicine - Family Medicine [address] [place] [address] Ira Falk CMA Social History Tobacco Use Types Packs/Day Years Used Date Smoking Tobacco: Never Smokeless Tobacco: Never Alcohol Use Standard Drinks/Week Comments Not Currently 0 (1 standard drink = 0.6 oz pur e alcohol) [facility] Utilities Answer Date Recorded In the [...] attend chur ch or anabaptist services? Never 11/25/2024 Do you belong to any clubs o r organizations such as rastafarian groups, unions, fraternal or athletic groups, or [...] Answer Date Recorded Total Score 0 01/19/2025 [facility] of Occupat ional Health - Occupational Stress [...] Telephone Encounter - Ira Falk CMA - 03/19/2025 12:17 PM EDT ----- Message from Connor Jean Baptiste DO sent at 03/19/2025 11:16 AM EDT ----- The MRI of her brain was negative for strokes or tumors. That is good news but unfortunately no underlying cause of her memory problem was uncovered with this test. ----- Message ----- From: Interface - Rad Results/Orders In 1 Sent: 03/19/2025 10:43 AM EDT To: Connor Jean Baptiste DO * Telephone Encounter - Ira Falk CMA - 03/19/2025 12:17 PM EDT ----- Message from Connor Jean Baptiste DO sent at 03/19/2025 11:16 AM EDT ----- The MRI of her brain was negative for strokes or tumors. That is good news but unfortunately no underlying cause of her memory problem was uncovered with this test. ----- Message ----- From: Interface - Rad Results/Orders In 1 Sent: 03/19/2025 10:43 AM EDT To: Connor Jean Baptiste DO documented in this encounter Plan of Treatment Upcoming Encounters Date Type Department Care Team (Late st Contact Info) Description 11/26/2025 1:40 PM EST Office Visit [facility] Internal Medicine - Family Medicine [address] [place] [address] 01/06/2026 10:00 AM EDT Office Visit [facility] Internal Medicine - Family Medicine [address] [place] [address] Connor Jean Baptiste DO [address], [place] [address] documented as of this encounter Visit Diagnoses Not on filedocumented in this encounter Additional Health Concerns Assessment Noted Time PHQ-9 Depression Total Score: 0 01/20/20 10:53 AM EDT A Body Mass Index follow-up plan has been documented for the patient 02/18/2024 5:31 PM EDT documented as of this encounter Care Teams Supercharger Mechanic Relationship Specialty Start Date End Date Connor Jean Baptiste DO [address] [facility] [place] [place] [address] PCP - General Family Medicine 11/13/22 Yuni Borja [facility] 11/20/24 documented as of this encounter
--- OUTSIDE RECORDS SUMMARY | 2025-08-03 15:25 | XMS_ITS | Encounter Summary ---
Author Organization [facility] tem Address [facility] [id number] [address] [place] [address] Care Team Providers Care Tailer Out Name Role Phone Connor Jean Baptiste DO Primary Care Provider + [phone] Encounter Details Date Type Department Care Team (Late st Contact Info) Description 05/21/2025 Orders Only [facility] Internal Medicine - Family Medicine [address] [place] [phone] Ref Prov, [place] [address] Social History Tobacco Use Types Packs/Day Years Used Date Smoking Tobacco: Never Smokeless Tobacco: Never Alcohol Use Standard Drinks/Week Comments Not Currently 0 (1 standard drink = 0.6 oz pur e alcohol) [facility] Utilities Answer Date Recorded In the [...] often do you attend chur ch or mormon services? Never 11/25/2024 Do you belong to any clubs o r organizations such as advent groups, unions, fraternal or athletic groups, or [...] PHQ-2 Answer Date Recorded Total Score 0 04/06/2025 [facility] - Occupational Stress Questionnaire Answer Date Recorded [...] Recorded Do you need help finding a parnass[employer] campusal career center and/or a training program? No 02/20/2023 Hunger Screening Answer Date Recorded Within the past 12 months we worried whether our food would run out before we got money to buy more. Never True 04/06/2025 Within the past 12 months th e food we bought just didn't last and we didn't have money to get more. Never True 04/06/2025 Purpose - Life Answer Date Recorded I [...] - Family Medicine [address] [place] [address] 01/06/2026 10:00 AM EDT Office Visit [facility] Internal Medicine - Family Medicine [address] [place] [address] Connor Jean Baptiste DO [address], [place] [address] documented as of this encounter Procedures Procedure Name Priority Date/Time Associated Diagnosis Comments XR ABDOMEN AP 1 VW Routine 02/27/2025 9:22 AM EDT documented in this encounter Results * X-ray abdomen ap 1 view (02/27/2025 9:22 AM EDT) Anatomical Region Laterality Modality Body, Abdomen N/A Computed Radiogr aphy us Not In System Ref Prov IMG DIAGNOSTIC IMAGING OR DERABLES Final Result documented in this encounter Visit Diagnoses Not on filedocumented in this encounter Additional Health Concerns Assessment Noted Time PHQ-9 Depression Total Score: 0 04/06/20 25 11:47 AM EDT A Body Mass Index follow-up plan has been documented for the patient 02/18/2024 5:31 PM EDT documented as of this encounter Care Teams Tailer Out Relationship Specialty Start Date End Date Connor Jean Baptiste DO [address], [facility] [place] [place] [address] PCP - General Family Medicine 11/13/22 Yuni Borja [facility] Nurse - [facility] 11/20/24 documented as of this encounter
--- OUTSIDE RECORDS SUMMARY | 2025-08-03 15:25 | XMS_ITS | Encounter Summary ---
[facility] Address [facility] [place]-[id number] [address] [place] [address] Care Team Providers Care Teacher Resource Name Role Phone Connor Jean Baptiste Primary Care Provider + [phone] Encounter Details Date Type Department Care Team (Late st Contact Info) Description 04/01/2025 Telephone [facility] Internal Medicine - Family Medicine [address] [place] [address] Ira Falk CMA Social History Tobacco Use Types Packs/Day Years Used Date Smoking Tobacco: Never Smokeless Tobacco: Never Alcohol Use Standard Drinks/Week Comments Not Currently 0 (1 standard drink = 0.6 oz pur e alcohol) [facility] Utilities Answer Date Recorded In [...] often do you attend chur ch or judaism services? Never 11/25/2024 Do you belong to [...] Answer Date Recorded Total Score 0 01/19/2025 [facility] of Occupat ional Health - Occupational Stress [...] Telephone Encounter - Ira Falk CMA - 04/01/2025 11:32 AM EDT Message from Connor Jean Baptiste DO sent [...] Medicine - Family Medicine [address] [place] [address] 01/06/2026 10:00 AM EDT Office Visit [facility] Internal Medicine - Family Medicine [address] [place] [address] Connor Jean Baptiste DO [address] [facility] [place] [address] documented as of this encounter Visit Diagnoses Not on filedocumented in this encounter Additional Health Concerns Assessment Noted Time PHQ-9 Depression Total Score: 0 01/20/20 10:53 AM EDT A Body Mass Index follow-up plan has been documented for the patient 02/18/2024 5:31 PM EDT documented as of this encounter Care Teams Teacher Resource Relationship Specialty Start Date End Date Markel Connor Ruiz DO [address] [facility], [facility] [place] [address] PCP - General Family Medicine 11/13/22 [facility] 11/20/24 documented as of this encounter
--- OUTSIDE RECORDS SUMMARY | 2025-08-03 15:25 | XMS_ITS | Encounter Summary ---
Author Organization [facility] Address [facility] [place]-[id number] [address] [place] [address] Care Team Providers Care Applied Psychology Chair Name Role Phone Connor Jean Baptiste Primary Care Provider + [phone] Encounter Details Date Type Department Care Team (Late st Contact Info) Description 01/20/2025 Telephone [facility] Internal Medicine - Family Medicine [address] [place] [address] Ira Falk CMA Social History Tobacco Use Types Packs/Day Years Used Date Smoking Tobacco: Never Smokeless Tobacco: Never Alcohol Use Standard Drinks/Week Comments Not Currently 0 (1 standard drink = 0.6 oz pur e alcohol) [facility] Utilities Answer Date Recorded In the [...] often do you attend chur ch or cheondoism services? Never 11/25/2024 Do you belong to any clubs o r organizations such as voodoo groups, unions, fraternal or athletic groups, or [...] Answer Date Recorded Total Score 0 01/19/2025 [facility] [place] of Occupat ional Health - Occupational Stress [...] Telephone Encounter - Ira Falk CMA - 01/20/2025 4:51 PM EDT ----- Message from Dr. Connor Jean Baptiste DO sent at 01/20/2025 4:05 PM EDT ----- Her urine was suspicious for infection but the culture was negative. * Telephone Encounter - Ira Falk CMA - 01/20/2025 4:51 PM EDT I called pt and read result note. Pt verbally states she understands. documented in this encounter Plan of Treatment Upcoming Encounters Date Type Department Care Team (Late st Contact Info) Description 11/26/2025 1:40 PM EST Office Visit [facility] Internal Medicine - Family Medicine [address] [place] [address] 01/06/2026 10:00 AM EDT [facility] [address] [place] [address] Connor Jean Baptiste DO [address] [facility] [place] [place] [address] documented as of this encounter Visit Diagnoses Not on filedocumented in this encounter Additional Health Concerns Assessment Noted Time PHQ-9 Depression Total Score: 0 01/20/20 10:53 AM EDT A Body Mass Index follow-up plan has been documented for the patient 02/18/2024 5:31 PM EDT documented as of this encounter Care Teams Applied Psychology Chair Relationship Specialty Start Date End Date Connor Jean Baptiste DO [address], [facility] [place] [address] PCP - General Family Medicine 11/13/22 Yuni Borja [facility] 11/20/24 documented as of this encounter
--- OUTSIDE RECORDS SUMMARY | 2025-08-03 15:29 | XMS_ITS | CCD ---
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 Nick Carter Attending Unava ilable Carrillo, VERO Garcia Referring Unavailable WEST, DR WILLARD Pittman Admitting Unavailable FURLONG, DR CONNOR Ruiz Primary Care Unavailable WEST, DR WILLARD Pittman Attending Unavailable WEST, DR WILLARD Pittman Admitting Unavailable WEST, DR WILLARD Pittman Consulting Unavailable FURLONG, DR CONNOR Ruiz Primary Care Unavailable WEST, DR WILLARD Pittman Attending Unavailable FURLONG, DR CONNOR Ruiz Primary Care Unavailable WEST, DR WILLARD Pittman Consulting Unavailable WEST, DR WILLARD Pittman Admitting Unavailable WEST, DR WILLARD Pittman Attending Unavailable MISC, DOCTOR Admitting Unavailable MISC, DOCTOR Attending Unavailable HASSAN ., DR BLACKMAN Consulting Unavailable FURLONG, DR CONNOR Ruiz Primary Care Unavailable MISC, DOCTOR Consulting Unavailable MO ., DR BLACKMAN Admitting Unavailable HASSAN ., DR BLACKMAN Attending Unavailable HASSAN ., DR BLACKMAN Consulting Unavailable FURLONG, DR CONNOR Ruiz Primary Care Unavailable Kyle Cheney Consulting Unavailable BEE, DR WILLARD Pittman Consulting Unavailable BEE, DR WILLARD Pittman Admitting Unavailable FURLONG, DR CONNOR Ruiz Primary Care Unavailable WEST, DR WILLARD Pittman Attending Unavailable Kyle Cheney Consulting Unavailable WEST, DR WILLARD Pittman Consulting Unavailable WEST, DR WILLARD Pittman Admitting Unavailable FURLONG, DR CONNOR Ruiz Primary Care Unavailable WEST, DR WILLARD Pittman Attending Unavailable ZieberKyle Consulting Unavailable HASSAN ., DR BLACKMAN Admitting Unavailable HASSAN ., DR BLACKMAN Attending Unavailable HASSAN ., DR BLACKMAN Consulting Unavailable FURLONG, DR CONNOR Ruiz Primary Care Unavailable Zieber, Kyle Consulting Unavailable HASSAN ., DR BLACKMAN Admitting Unavailable HASSAN ., DR BLACKMAN Attending Unavailable HASSAN ., DR BLACKMAN Consulting Unavailable FURLONG, DR CONNOR Ruiz Primary Care Unavailable Zieber, Kyle Consulting Unavailable WEST, DR WILLARD Pittman Consulting Unavailable FURLONG, DR CONNOR Ruiz Primary Care Unavailable WEST, DR WILLARD Pittman Admitting Unavailable WEST, DR WILLARD Pittman Attending Unavailable FURLONG, DR CONNOR Ruiz Primary Care Unavailable WEST, DR WILLARD Pittman Admgabriela Unavailable WEST, DR WILLARD Pittman Consulting Unavailable WEST, DR WILLARD Pittman Attending Unavailable Zieber, Kyle Consulting Unavailable FURLONG, DR CONNOR Ruiz Primary Care Unavailable WEST, DR WILLARD Pittman Consulting Unavailable WEST, DR WILLARD Pittman Admitting Unavailable WEST, DR WILLARD Pittman Attending Unavailable WEST, DR WILLARD Pittman Consulting Unavailable WEST, DR WILLARD Pittman Attending Unavailable WEST, DR WILLARD Pittman Admitting Unavailable FURLONG, DR CONNOR Ruiz Primary Care Unavailable Zieber, Kyle Consulting Unavailable WEST, DR WILLARD Pittman Consulting Unavailable WEST, DR WILLARD Pittman Admgabriela Unavailable FURLONG, DR CONNOR Ruiz Primary Care Unavailable WEST, DR WILLARD Pittman Attending Unavailable Zieber, Kyle Consulting Unavailable WEST, DR WILLARD Pittman Consulting Unavailable FURLONG, DR CONNOR Ruiz Primary Care Unavailable WEST, DR WILLARD Pittman Admgabriela Unavailable WEST, DR WILLARD Pittman Attending Unavailable FURLONG, DR CONNOR Ruiz Primary Care Unavailable HASSAN ., DR BLACKMAN Admitting Unavailable HASSAN ., DR BLACKMAN Attending Unavailable HASSAN ., DR BLACKMAN Consulting Unavailable SANTHOSH NICK Consulting Unavailable FURLONG, DR CONNOR Ruiz Consulting Unavailable FURLONG, DR CONNOR Ruiz Admitting Unavailable FURLONG, DR CONNOR Ruiz Attending Unavailable FURLONG, DR CONNOR Ruiz Primary Care Unavailable Zieber, Kyle Consulting Unavailable FURLONG, DR CONNOR Ruiz Primary Care Unavailable STEPANIC, DR LAKHANI Attending Unavailable STEPANIC, DR LAKHANI Consulting Unavailable STEPANIC, DR LAKHANI Admitting Unavailable MISC, DOCTOR Admitting Unavailable MISC, DOCTOR Attending Unavailable HASSAN ., DR BLACKMAN Consulting Unavailable FURLONG, DR CONNOR Ruiz Primary Care Unavailable WEST, DR WILLARD Pittman Consulting Unavailable Zieber, Kyle Consulting Unavailable WEST, DR WILLARD Pittman Consulting Unavailable WEST, DR WILLARD Pittman Attending Unavailable WEST, DR WILLARD Pittman Admitting Unavailable FURLONG, DR CONNOR Ruiz Primary Care Unavailable WEST, DR WILLARD Pittman Consulting Unavailable FURLONG, DR CONNOR Ruiz Primary Care Unavailable WEST, DR WILLARD Pittman Admitting Unavailable WEST, DR WILLARD Pittman Attending Unavailable Zieber, Kyle Consulting Unavailable WEST, DR WILLARD Pittman Consulting Unavailable FURLONG, DR CONNOR Ruiz Primary Care Unavailable WEST, DR WILLARD Pittman Admitting Unavailable WEST, DR WILLARD Pittman Attending Unavailable WEST, DR WILLARD Pittman Consulting Unavailable FURLONG, DR CONNOR Ruiz Primary Care Unavailable WEST, DR WILLARD Pittman Admitting Unavailable WEST, DR WILLARD Pittman Attending Unavailable Zieber, Kyle Consulting Unavailable WEST, DR WILLARD Pittman Consulting Unavailable FURLONG, DR CONNOR Ruiz Primary Care Unavailable WEST, DR WILLARD Pittman Admitting Unavailable WEST, DR WILLARD Pittman Attending Unavailable Zieber, Kyle Consulting Unavailable WEST, DR WILLARD Pittman Admgabriela Unavailable WEST, DR WILLARD Pittman Consulting Unavailable FURLONG, DR CONNOR Ruiz Primary Care Unavailable WEST, DR WILLARD Pittman Attending Unavailable WEST, DR WILLARD Pittman Consulting Unavailable WEST, DR WILLARD Pittman Admitting Unavailable FURLONG, DR CONNOR Ruiz Primary Care Unavailable WEST, DR WILLARD Pittman Attending Unavailable FURLONG, DR CONNOR Ruiz Primary Care Unavailable WEST, DR WILLARD Pittman Consulting Unavailable WEST, DR WILLARD Pittman Admgabriela Unavailable WEST, DR WILLARD Pittman Attending Unavailable ZieberKyle Consulting Unavailable FURLONG, DR CONNOR Ruiz Primary Care Unavailable WEST, DR WILLARD Pittman Consulting Unavailable WEST, DR WILLARD Pittman Admgabriela Unavailable WEST, DR WILLARD Pittman Attending Unavailable FURLONG, DR CONNOR Ruiz Primary Care Unavailable WEST, DR WILLARD Pittman Consulting Unavailable WEST, DR WILLARD Pittman Admgabriela Unavailable WEST, DR WILLARD Pittman Attending Unavailable FURLONG, DR CONNOR Ruiz Primary Care Unavailable WEST, DR WILLARD Pittman Consulting Unavailable WEST, DR WILLARD Pittman Admgabriela Unavailable WEST, DR WILLARD Pittman Attending Unavailable Zieber, Kyle Consulting Unavailable WEST, DR WILLARD Pittman Consulting Unavailable WEST, DR WILLARD Pittman Attending Unavailable WEST, DR WILLARD Pittman Admitting Unavailable FURLONG, DR CONNOR Ruiz Primary Care Unavailable WEST, DR WILLARD Pittman Consulting Unavailable FURLONG, DR CONNOR Ruiz Primary Care Unavailable WEST, DR WILLARD Pittman Admitting Unavailable WEST, DR WILLARD Pittman Attending Unavailable HASSAN ., DR BLACKMAN Admitting Unavailable HASSAN ., DR BLACKMAN Attending Unavailable HASSAN ., DR BLACKMAN Consulting Unavailable FURLONG, DR CONNOR Ruiz Primary Care Unavailable [place], DR WILLARD Pittman Consulting Unavailable WEST, DR WILLARD Pittman Admitting Unavailable FURLONG, DR CONNOR Ruiz Primary Care Unavailable [place], DR WILLARD Pittman Attending Unavailable MISC, DOCTOR Admitting Unavailable MISC, DOCTOR Attending Unavailable MISC, DOCTOR Consulting Unavailable FURLONG, DR CONNOR Ruiz Primary [facility] Connor Torito Primary Care Provider Radha Back Admitting Unavailable Orzech, Radha X Attending Unavailable Orzech, Radha X Attending Unavailable Orzech, Radha X Attending Unavailable DULCE ALCAZAR Attending Unavailab le Yehuda HASSAN Attending Unavailable Yehuda HASSAN Attending Unavailable Yehuda HASSAN Attending Unavailable Orzech, Radha X Attending Unavailable Orzech, Radha X Attending Unavailable Furlong DO Connor Torito Primary Care Provider Connor Anaya MD Primary Care Provider Radha Back Attending Unavailable Orzech, Radha X Admitting Unavailable Orluciach, Radha Lopes Attending Unavailable Yehuda HASSAN Attending Unavailable NICK RICHARDSON Attending Unavailable DEBBIECONNOR [place] Primary Care Unavailab NICK Rousseau Attending Unavailable FURLONG, CONNOR SOW Primary Care Unavailab NICK Rousseau Referring Unavailable CARMEN LOPEZ Attending Unavailable NICK RICHARDSON Referring Unavailable FURLONG, CONNOR SOW Primary Care Unavailab le Furlong Connor ESCALANTE Primary Care Provider [phone] CONNOR ANAYA Referring Unavailable FURLONG, CONNOR Ruiz Primary Care Unavailable FURLONG, CONNOR Ruiz Referring Unavailable FURLONG, CONNOR Ruiz Primary Care Unavailable FURLONG, CONNOR Ruiz Referring Unavailable FURLONG, CONNOR Ruiz Primary Care Unavailable Furlong Connor ESCALANTE Primary Care Provider LUL SMITH Referring Unavailable LEONOR ALCARAZ Attending Unavailable LUL SMITH Attending Unavailable LUL SMITH Referring Unavailable LUL SMITH Referring Unavailable FURLONGCONNOR Attending Unavailable FURLONG, CONNOR Ruiz Referring Unavailable FURLONG, CONNOR Ruiz Primary Care Unavailable Yehuda HASSAN Attending Unavailable DORA ALCAZAR Attending Unavailable Yehuda HASSAN Attending Unavailable Furlong Connor HAYDEN Primary Care Provider JR. CHAPO, LESVIA Iraheta Attending Unavaila ble SUSY, NANY Pop Attending Unavailable SUSY, NANY Pop Referring Unavailable JR. CHAPO, LESVIA Iraheta Attending Unavaila ble FURLONG, CONNOR Ruiz Attending Unavailable FURLONG, CONNOR Ruiz Referring Unavailable FURLONG, CONNOR Ruiz Primary Care Unavailable FURLONG, CONNOR G Attending Unavailable FURLONG, CONNOR G Referring Unavailable FURLONG, CONNOR G Primary Care Unavailable FURLONG, CONNOR G Referring Unavailable FURLONG, CONNOR Ruiz Primary Care Unavailable FURLONG, CONNOR Ruiz Attending Unavailable FURLONG, CONNOR G Referring Unavailable FURLONG, CONNOR G Primary Care Unavailable FURLONG, CONNOR G Attending Unavailable FURLONG, CONNOR G Referring Unavailable FURLONG, CONNOR G Primary Care Unavailable FURLONG, CONNOR Ruiz Attending Unavailable FURLONG, CONNOR G Referring Unavailable FURLONG, CONNOR G Primary Care Unavailable Allergies Allergy Classification Reported Allergen(s) Allergy Type Date of Onset Reaction(s) Facility (20 sources) Ciprofloxacin; Translations: [ciprofloxacin] Drug Allergy 12-12-19 23 Eruption of skin (disorder), Unknown, Rash [facility] [place] (20 sources) Sulfonamides (Antibiotic); Translations: [Sulfa Drugs] Allergy to drug (finding) Eruption of skin (disorder) [facility] (20 sources) corn extract; Translations: [[place]] Drug Allergy 02-18-20 24 Unknown (qualifier value), Other (See Comments) [facility] (17 sources) Dog; Translations: [Dogs] Allergy to substance Unknown (qualifier value) [facility] (20 sources) Mold Extract; Translations: [mold] Drug Allergy 11-08-19 18 Unknown (qualifier value), Other (See Comments) [facility] (17 sources) Milk Products; Translations: [Milk Products] Food allergy Unknown (qualifier value) [facility] (17 sources) house dust mite allergen extract; Translations: [house dust mite allergen extra] Allergy to substance Unknown (qualifier value) [facility] (2 sources) Ciprofloxacin Drug Allergy 01-31-20 14 [facility] (1 source) house dust allergenic extract Drug Allergy [facility] (2 sources) Lactose Drug Allergy [facility] (1 source) Sulfonamides (Antibiotic) Drug allergy (disorder) [facility] (20 sources) Sulfonamides (Antibiotic); Translations: [SULFA (SULFONAMIDE ANTIBIOTICS)] Drug Intolerance 06-21-20 23 Unknown, Rash [facility] (15 sources) [place] Oil; Translations: [CORN OIL] Drug Allergy 11-08-19 18 Diarrhea, Other [facility] (6 sources) Cow milk Propensity to adverse reactions 11-08-19 18 Other [facility] (6 sources) House dust mite Allergy to substance 10-30-19 [facility] (6 sources) Mold Extract Drug Allergy 11-08-19 18 Other [facility] (20 sources) Sulfamethoxazole / Trimethoprim; Translations: [SULFAMETHOXAZOLE-T RIMETHOPRIM] Drug Allergy 11-13-19 23 Rash [facility] (9 sources) [place] house dust mite allergenic extract / house dust mite allergenic extract; Translations: [ALLERG XT,D.FARINAE-D.PTER ONYS] Drug Allergy 10-30-19 [facility] (9 sources) cow milk allergenic extract; Translations: [MILK] Drug Allergy 11-08-19 18 Other (See Comments) [facility] (1 source) Sulfonamide; Translations: [sulfa drugs] Drug allergy Eruption of skin (disorder) [facility] [place] Medications Current Medications Medication Drug Class(es) Dates Sig (Normalized) Sig (Original) 8 hr acetaminophen 650 mg extended release oral tablet (20 sources) Start: 07-01-2020 take 1 tablet by mouth twice daily Tylenol 8 HR Arthritis Pain 650 mg oral tablet, extended release 650 mg = 1 tab(s), Oral, BID, Refills(s) 0 Start Date: 07/01/20 Status: Ordered Repeat number: 1 take 1 tablet by rosalinda every eight hours as needed for pain [...] Oral, BID Start Date: 07/29/19 Status: Ordered Repeat number: 1 Start: 07-29-2019 take 1 tablet by rosalinda th twice daily Caltrate 600 + D tab(s), Oral, BID Start Date: 07/29/19 Status: Ordered End: 01-19-2025 take 1 tablet by mouth in the morning calcium carbonate 1500 (600 Ca) MG tablet Take 600 mg by mouth in the morning and 600 mg in the evening. Take with meals. Active Caltrate 600+D T ABS Take 1 tablet daily Quantity: 0 Refills: 0 Ordered: 16-Aug-2021 DO Active CALCIUM CARBONATE-VITAMIN D3 ORAL (20 sources) take 1 tablet by mouth once daily CALCIUM CARBONATE-VITAMIN D3 ORAL Take 1 tablet by mouth once daily. Active take 1 tablet by mouth in the mo rning CALCIUM CARBONATE-VITAMIN D3 ORAL Take 1 tablet by mouth in the morning. Active Centrum Silver (14 sources) Start: 07-01-2020 take 1 tablet by rosalinda th once daily Centrum Silver 1 tab(s), Oral, Daily, Refill(s) 0 Start Date: 07/01/20 Status: Ordered Repeat number: 1 Start: 07-01-2020 take 1 tablet by rosalinda th once daily Centrum Silver 1 tab(s), Oral, Daily, Refill(s) 0 Start Date: 07/01/20 Status: Ordered cholecalciferol 0.025 mg oral tablet (20 sources) Vitamin D take 1 tablet by mouth in the morning cholecalciferol (Vitamin D-[address]) 25 MCG (1000 UT) tablet Take 25 mcg by mouth in the morning and 25 mcg in the evening. Active End: 04-06-2025 take 1 tablet by mouth in the morning cholecalciferol 1,000 units tablet Take 1 tablet (1,000 Units total) by mouth in the morning. 04/06/2025 Discontinued (Therapy completed) collagen/biotin/ascorbic acid (COLLAGEN 1500 PLUS C ORAL) (2 sources) collagen/biotin/ ascorbic acid (COLLAGEN 1500 PLUS C ORAL) Take 1 capsule by mouth once daily. Active dapagliflozin 10 mg oral tablet (4 sources) Sodium-Glucose Cotransporter 2 Inhibitor Sta rt: 5 FARXIGA 10 mg tablet Take 1 tablet (10 mg total) by mouth. 03/30/2025 Active ferrous sulfate (6 sources) take 1 tablet by mouth in [...] 1 capsule by mouth in the morning cenjo-cr-2-uwu-kam-rakwxbn-ast (KRILL OIL) 1,891-762-32-80 mg capsule Take 1 capsule by mouth in the morning. 02/18/2024 Active Krill Oil 1000 M G capsule Orally Active End: 08-18-2024 krill oil 500 mg capsule Bassam e by mouth daily. 08/18/2024 Discontinued (Patient Stopped On Own) levothyroxine sodium 0.112 mg oral tablet (20 sources) l-Thyroxine Start: 08-19-2024 End: 01-28-2025 take 1 tablet by mouth in the morning levothyroxine (SYNTHROID, LEVOTHROID) 112 MCG tablet TAKE 1 TABLET BY MOUTH IN THE MORNING 90 tablet 01/28/2025 Active Start: 02-20-2024 End: 08-19-2024 take 1 [...] adjustment) Start: 07-29-[address] [facility] once daily levothyroxine 137 mcg (0.137 mg) oral capsule 137 microgram = 1 cap(s), Oral, Daily Start Date: 07/29/19 Status: Ordered Repeat number: 1 lisinopril 2.5 mg oral tablet (20 sources) Angiotensin Converting Enzyme Inhibitor Start: 06-30-2022 End: 05-26-2025 lisinopril 2.5 mg Tab Refills(s) 0 Start Date: 06/30/22 Status: Ordered Repeat number: 1 loratadine 10 mg oral tablet (19 sources) Start: 07-29-2019 End: 05-26-2025 take 10 mg by mouth once daily Claritin 10 mg, Oral, Daily, Refills(s) 0 Start Date: 07/29/19 Status: Ordered End: 03-06-2024 take 1 capsule by mouth once daily loratadine 10 mg capsule Take 1 capsule by mouth once daily. 03/06/2024 Discontinued (Other) losartan potassium 50 mg oral tablet (5 sources) Angiotensin 2 Receptor Deann losartan (COZAAR) 50 mg tablet Take 1 tablet (50 mg total) by mouth. Active lovastatin 10 mg oral tablet (20 sources) HMG-CoA Reductase Inhibitor Start: 2 End: 5 take 1 tablet by mouth in the morning lovastatin (MEVACOR) 10 mg tablet Take 1 tablet (10 mg total) by mouth in the morning. 90 tablet 3 11/15/2024 Active Abelino Krill Oil (4 sources) Start: 9 take 1 capsule by mouth once daily Abelino Krill Oil Abelino Krill Oil, one cap., Oral, Daily Start Date: 07/29/19 Status: Ordered Multiple Vitamins-Minerals (CENTRUM SILVER ADULT 50+ PO) (9 sources) Multiple Vitamins-Minerals (CENTRUM SILVER ADULT 50+ PO) as directed Orally Active tqvcokfk-ucp-vqnt-FA -vit K-lut (Centrum Silver Women) 8 mg iron-400 mcg-50 mcg tablet (2 sources) take 1 tablet by mouth once daily emigwwdb-odx-bnxb-F A-vit K-lut (Centrum Silver Women) 8 mg iron-400 mcg-50 mcg tablet Take 1 tablet by mouth once daily. Active epsbsqkd-lsb-tghr-FA -vit K-lut (CENTRUM SILVER WOMEN) 8 mg iron-400 mcg-50 mcg tablet (19 sources) take 1 tablet by mouth once in the morning khxopfqh-rit-uyyk-F A-vit K-lut (CENTRUM SILVER WOMEN) 8 mg iron-400 mcg-50 mcg tablet Take 1 tablet by mouth in the morning. Active [place]-3 Fatty Acids (OMEGA-3 FISH OIL PO) (9 sources) [place]-3 Fatty Ac ids (OMEGA-3 FISH OIL PO) Take by mouth Active omega-3 fatty acids-fish oil (One-Per-Day [place]-3) 684-1,200 mg capsule (2 sources) omega-3 fatty acids-fish oil (One-Per-Day [place]-3) 684-1,200 mg capsule Take 1 capsule (1,200 mg) by mouth once daily. Active OTC joint supplement (14 sources) Start: 0 take 1 tablet by mouth once daily OTC joint supplement OTC joint supplement, one tab, Oral, Daily Start Date: 07/01/20 Status: Ordered Repeat number: 1 Start: 07-01-2020 take 1 tablet by rosalinda th once daily OTC joint supplement OTC joint supplement, one tab, Oral, Daily Start Date: 07/01/20 Status: Ordered potassium bicarbonate 25 meq effervescent oral tablet (20 sources) Start: 10-26-2023 EFFER-K 25 mEq disintegrating tablet 12/08/2023 Active rivaroxaban 20 mg oral tablet (20 sources) Factor Xa Inhibitor Start: 07-29-2019 End: 03-06-2024 take 1 tablet by mouth in the morning XARELTO 20 mg tablet tablet Take 1 tablet (20 mg total) by mouth in the morning. 10/21/2022 Active sodium bicarbonate 650 mg oral tablet (6 sources) take 1 tablet by mouth once sodium bicarbonate 650 MG tablet Take 650 mg by mouth 1 (one) time Active tamsulosin hydrochloride 0.4 mg oral capsule (8 sources) alpha-Adrenergic Deann Start: 08-05-2024 End: 01-19-2025 take 1 capsule by mouth once daily tamsulosin (Flomax) 0.4 MG 24 hr capsule Take 0.4 mg by mouth Daily 08/05/2024 Active Vitamin D3 (14 sources) Start: 07-29-2019 Vitamin D3 1,000 International_Unit, Oral, Daily, Refills(s) 0 Start Date: 07/29/19 Status: Ordered Repeat number: 1 Start: 07-29-2019 Vitamin D3 1,0 00 International_Unit, [...] oral capsule (1 source) Cephalosporin Antibacterial Start: 08-22-20 take 1 capsule by mouth once daily Keflex 500 mg Cap 500 mg = 1 cap(s), Oral, Daily, Take 1 capsule the day before the procedure and 1 capsule after the procedure, # 2 cap(s), Refills(s) 0, Pharmacy: [id number], 165, cm, 06/30/22 11:48:00 EDT, Height/Length Dosing, 113, kg, 06/30/22 11:4... Start Date: 08/22/22 Status: Ordered Collagen Ultra Oral Capsule (7 sources) take 1 capsule by mouth once daily Collagen Ultra Oral Capsule TAKE 1 CAPSULE Daily Quantity: 0 Refills: 0 Ordered: 16-Aug-2021 DO Active dronedarone 400 mg oral tablet (20 sources) Antiarrhythmic Start: 07-29-20 End: 07-09-20 take 1 tablet by mouth twice daily as needed dronedarone (MULTAQ) 400 mg tablet Take 1 tablet (400 mg total) by mouth 2 (two) times a day as needed. 12/24/2023 07/09/2025 Discontinued (Therapy completed) K-Effervescent 25 mEq oral tablet, effervescent (10 sources) Start: 04-07-20 take 1 tablet by mouth twice daily K-Effervescent 25 mEq oral tablet, effervescent 25 mEq = 1 tab(s), Oral, BID, # 60 tab(s), Refills(s) 11, Pharmacy: [id number], 165, cm, 04/07/25 11:28:00 EDT, Height/Length Dosing, 90.9, kg, 04/07/25 11:28:00 EDT, Weight Dosing Start Date: 04/07/25 Status: Ordered Quantity: 60.0 Unit: tab(s) Repeat number: 12 Start: 10-26-2023 take 1 tablet by rosalinda th twice daily K-Effervescent 25 mEq oral tablet, effervescent 25 mEq = 1 tab(s), Oral, BID, # 60 tab(s), Refills(s) 11, Pharmacy: [id number], 165, cm, 10/26/23 8:42:00 EST, Height/Length Dosing, 97.5, kg, 10/26/23 8:42:00 EST, Weight Dosing Start Date: 10/26/23 Status: Ordered 1 ml methylPREDNISolone acetate 40 mg/ml injection (4 sources) Corticosteroid Start: 09-02-2024 End: 09-02-2024 methylPREDNISolone acetate (DEPO-Medrol) injection 40 mg Start: 09-02-2024 End: 09-02-2024 40 mg, Intra-articular, Once PRN Procedure, Starting on Sun09/02/24 at 1414, For 1 dose [place] 3 CAPS (7 sources) [place] 3 CAPS BASSAM E DIRECTED. Quantity: 0 Refills: 0 Ordered: 16-Aug-2021 DO Active Problems Active Problems Problem Classification Problem Date Documented Da te Episodic/Chronic Acute and unspecified renal failure (20 sources) Renal failure syndrome; Translations: [Unspecified kidney failure] Onset: 3 07-23-2023 Chronic Cardiac dysrhythmias (20 sources) Paroxysmal atrial fibrillation; Translations: [Atrial fibrillation] Onset: 3 03-06-2024 Chronic Cardiac dysrhythmias (1 source) Sinus bradycardia; Translations: [Bradycardia, unspecified] 08-28-2024 Episodic Chronic kidney disease (1 source) Chronic kidney disease, stage 2 (mild); Translations: [Chronic kidney disease, stage 2 (mild)] Onset: 4 Chronic Coronary atherosclerosis and other heart disease (1 source) Coronary arteriosclerosis 10-02-2024 Chronic Deficiency and other anemia (1 source) Anemia; Translations: [Anemia, unspecified] 01-19-2025 Episodic Diabetes mellitus with complications (1 source) Type 2 diabetes mellitus with diabetic chronic kidney disease; Translations: [Type 2 diabetes mellitus with diabetic chronic kidney disease] Onset: 4 Chronic Disorders of lipid metabolism (20 sources) Hyperlipidemia; Translations: [Other and unspecified hyperlipidemia] Onset: 3 03-06-2024 Chronic Essential hypertension (20 sources) Hypertensive disorder; Translations: [Essential (primary) hypertension] Onset: 3 08-25-2019 Chronic Genitourinary symptoms and ill-defined conditions (20 sources) Genuine stress incontinence; Translations: [Stress incontinence (female) (male)] Onset: 3 08-16-2020 Chronic Heart valve disorders (14 sources) Irregular heart beat 08-25-2019 Episodic Hypertension with complications and secondary hypertension (2 sources) 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; Translations: [Hypertensive chronic kidney disease with stage 1 through stage 4 chronic kidney disease, or unspecified chronic kidney disease] Onset: 4 02-18-2024 Chronic Joint disorders and dislocations; trauma-related (6 sources) Chondromalacia of right patella; Translations: [Chondromalacia patellae, right knee] 09-02-2024 Chronic Nutritional deficiencies (1 source) Vitamin D deficiency, unspecified; Translations: [VITAMIN D DEFICIENCY UNSPECIFIED] Onset: 3 Chronic Osteoarthritis (20 sources) Arthritis of right knee; Translations: [Unilateral primary osteoarthritis, right knee] Onset: 3 09-02-2024 Chronic Other aftercare (7 sources) Drug therapy finding; Translations: [Long-term (current) use of anticoagulants] Episodic Other aftercare (2 sources) Taking high risk medication; Translations: [Other [place] [facility] (current) drug therapy] Onset: 4 08-28-2024 Episodic Other aftercare (2 sources) Other emt intermediate (current) drug therapy; Translations: [Other emt intermediate (current) drug therapy] Onset: 4 Episodic Other gastrointestinal disorders (4 sources) Bariatric surgery status; Translations: [BARIATRIC SURGERY STATUS] Onset: 3 Episodic Other hereditary and degenerative nervous system conditions (20 sources) Minimal cognitive impairment; Translations: [Mild cognitive impairment, so stated] Onset: 3 07-23-2023 Chronic Other nervous system disorders (7 sources) Disturbance of attention; Translations: [Attention and concentration deficit] Onset: 5 01-19-2025 Chronic Other nervous system disorders (5 sources) Impaired cognition; Translations: [Other symptoms and signs involving cognitive functions and awareness] 01-19-2025 Episodic Other non-traumatic joint disorders (6 sources) Pain in right knee; Translations: [Pain [...] [Body mass index (BMI) 36.0-36.9, adult] Onset: 4 03-06-2024 Chronic Other nutritional; endocrine; and metabolic disorders (1 source) Obese class II; Translations: [Class 2 obesity] 08-28-2024 Chronic Other nutritional; endocrine; and metabolic disorders (3 sources) Body mass index (BMI) 35.0-35.9, adult; Translations: [Body mass index (BMI) 35.0-35.9, adult] Onset: 4 Chronic Other nutritional; endocrine; and metabolic disorders (2 sources) Body mass index (BMI) 36.0-36.9, adult; Translations: [Body mass index (BMI) 36.0-36.9, adult] Onset: 4 Chronic Other nutritional; endocrine; and metabolic disorders (16 sources) 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; Translations: [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] Onset: 4 10-13-2024 Chronic Other nutritional; endocrine; and metabolic disorders (1 source) Severe obesity; Translations: [Morbid (severe) obesity due to excess calories] 02-18-2024 Chronic Other nutritional; endocrine; and metabolic disorders (1 source) Obesity caused by energy imbalance; Translations: [Class 1 obesity due to excess calories with serious comorbidity and body mass index (BMI) of 33.0 to 33.9 in adult] 07-09-2025 Chronic Other nutritional; endocrine; and metabolic disorders (1 source) Other obesity due to excess calories; Translations: [Other obesity due to excess calories] Onset: 5 Chronic Other nutritional; endocrine; and metabolic disorders (1 source) Body mass index (BMI) 33.0-33.9, adult; Translations: [Body mass index (BMI) 33.0-33.9, adult] Onset: 5 Chronic Other nutritional; endocrine; and metabolic disorders (1 source) History of diabetes mellitus type 2; Translations: [Personal history of other endocrine, nutritional and metabolic disease] 07-09-2025 Episodic Other nutritional; endocrine; and metabolic disorders (1 source) Personal history of other endocrine, nutritional and metabolic disease; Translations: [Personal history of other endocrine, nutritional and metabolic disease] Onset: 5 Episodic [place]ore[place]-; endo-; and myocarditis; cardiomyopathy (except that caused by tuberculosis or sexually transmitted disease) (20 sources) Cardiomyopathy; Translations: [Other primary cardiomyopathies] Onset: 3 03-06-2024 Chronic Pulmonary heart disease (2 sources) Pulmonary hypertension, unspecified; Translations: [Pulmonary hypertension, unspecified] Onset: 5 Chronic Residual codes; unclassified (20 sources) Sleep apnea; Translations: [Sleep apnea, unspecified] Onset: 3 07-23-2023 Chronic Residual codes; unclassified (1 source) Edema, unspecified; Translations: [EDEMA UNSPECIFIED] Onset: 3 Episodic Residual codes; unclassified (4 sources) Never smoked tobacco; Translations: [Other specified health status] Onset: 4 03-06-2024 Episodic Residual codes; unclassified (3 sources) Amnesia; Translations: [Other amnesia] 01-19-2025 Episodic Residual codes; unclassified (1 source) Other amnesia; Translations: [Other amnesia] Onset: 5 Episodic Screening and history of mental health and substance abuse codes (1 source) Patient encounter status; Translations: [Encounter for screening for depression] 11-28-2024 Episodic Septicemia (except in labor) (14 sources) Sepsis due to Enterobacter 08-16-2020 Episodic Thyroid disorders (20 sources) Hypothyroidism; Translations: [Unspecified acquired hypothyroidism] Onset: 3 08-25-2019 Chronic Unclassified (13 sources) Asymptomatic microscopic hematuria 08-16-2020 Unclassified (14 sources) Drug therapy finding 10-20-2020 Unclassified (1 source) GASTR-ESOPH RFLX DS ESPHGTS W/O BLD; Translations: [GASTR-ESOPH RFLX DS ESPHGTS W/O BLD] Onset: 3 Unclassified (10 sources) Obstructive hydronephrosis 10-26-2023 Unclassified (2 sources) Other ventricular tachycardia; Translations: [Other ventricular tachycardia] Onset: 4 Unclassified (1 source) Obesity, class 1; Translations: [Obesity, class 1] Onset: 5 Unclassified (1 source) Obesity, class 2; Translations: [Obesity, class 2] Onset: 4 Unclassified (1 source) Genetic susceptibility to obesity; Translations: [Genetic susceptibility to obesity] Onset: 4 Unclassified (1 source) 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; Translations: [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] Onset: 4 Unclassified (1 source) TCM DEC 1-3 TBH Onset: 4 Urinary tract infections (15 sources) Urinary tract infectious disease; Translations: [Urinary tract infection, site not specified] Onset: 2 08-16-2020 Episodic Past or Other Problems Problem Classification Problem Date Documented Da te Episodic/Chronic Biliary tract disease (20 sources) Biliary calculus; Translations: [Calculus of gallbladder without cholecystitis without obstruction] Onset: 3 12-07-2020 Episodic Calculus of urinary tract (20 sources) Kidney stone; Translations: [Calculus of kidney] Onset: 2 Episodic Deficiency and other anemia (2 sources) Anemia, unspecified; Translations: [Anemia, unspecified] Onset: 5 Episodic Diabetes mellitus without complication (20 sources) Diabetes mellitus; Translations: [Type 2 diabetes mellitus without complications] Onset: 3 Resolved: 3 08-25-2019 Chronic Genitourinary symptoms and ill-defined conditions (20 sources) Microscopic hematuria; Translations: [Asymptomatic microscopic hematuria] Onset: 2 Episodic Immunizations and screening for infectious disease (2 sources) Needs influenza immunization; Translations: [Encounter for immunization] Onset: 4 10-13-2024 Episodic Mood disorders (20 sources) Mood disorders Onset: 4 Resolved: 5 10-13-2024 Other aftercare (4 sources) Encounter for surgical aftercare following surgery on the circulatory system; Translations: [ENC SURG [facility]TRCARE FLW SURG CIRC SYS] Onset: 2 Episodic Other and unspecified benign neoplasm (20 sources) Polyp of transverse colon; Translations: [Polyp of colon] Onset: 3 12-13-2022 Episodic Other circulatory disease (20 sources) Carotid bruit; Translations: [Other symptoms involving cardiovascular system] Onset: 3 08-17-2023 Episodic Other circulatory disease (7 sources) H/O: hypertension; Translations: [Personal history of other diseases of circulatory system] Resolved: 1 Episodic Other diseases of kidney and ureters (19 sources) Hydronephrosis with renal and ureteral calculous obstruction; Translations: [Calculus of ureter] Onset: 4 02-18-2024 Episodic Other nervous system disorders (3 sources) Other symptoms and signs involving cognitive functions and awareness; Translations: [Other symptoms and signs involving cognitive functions and awareness] Onset: 5 Episodic Other nutritional; endocrine; and metabolic disorders (20 sources) Morbid obesity; Translations: [Morbid obesity] Onset: 6 Resolved: 5 07-23-2023 Chronic Other nutritional; endocrine; and metabolic [...] smoked tobacco; Translations: [Never a smoker] Unclassified (20 sources) Onset: 4 Resolved: 5 03-06-2024 Unclassified (1 source) Other ventricular tachycardia; Translations: [Other ventricular tachycardia] Onset: 5 Varicose veins of lower extremity (5 sources) Varicose veins of bilateral lower extremities with pain; Translations: [VARICOSE VNS TANMAY LOW EXTREM W/PAIN] Onset: 2 Episodic Results Test Name Value Interpretation Reference Range Facil ity COMPREHENSIVE METABOLIC PANE Good 07-09-2025 Albumin [Mass/Vol] 3.9 g/dL Normal 3.2-5.3 [facility] Comment on above: Performed By: #### C MP #### [facility] ([facility]) [address] [place] [address] VIR ALP [Catalytic activity/Vol] 94 U/L Normal 39-130 [facility] Comment on above: Performed By: #### C MP #### [facility] ([facility]) [address] [place] [address] VIR ALT [Catalytic activity/Vol] 8 U/L Normal <=31 [facility] Comment on above: Performed By: #### C MP #### [facility] ([facility]) [address] [place] [address] VIR Anion gap [Moles/Vol] 6 mmol/L Normal 5-15 [facility] Comment on above: Performed By: #### C MP #### [facility] ([facility]) [address] [place] [address] VIR AST [Catalytic activity/Vol] 14 U/L Normal <=41 [facility] Comment on above: Performed By: #### C MP #### [facility] ([facility]) [address] [place] [address] VIR Bilirubin [Mass/Vol] 0.4 mg/dL Normal 0.3-1.2 [facility] Comment on above: Performed By: #### C MP #### [facility] ([facility]) [address] [place] [address] VIR Calcium [Mass/Vol] 9.8 mg/dL Normal 8.5-10.5 [facility] Comment on above: Performed By: #### C MP #### [facility] ([facility]) [address] [place] [address] VIR Chloride [Moles/Vol] 105 mmol/L Normal 98-109 [facility] Comment on above: Performed By: #### C MP #### [facility] ([facility]) [address] [place] [address] VIR CO2 [Moles/Vol] 31 mmol/L Normal 22-32 [facility] Comment on above: Performed By: #### C MP #### [facility] ([facility]) [address] [place] [address] VIR Creatinine [Mass/Vol] 0.77 mg/dL Normal 0.40-1.00 [facility] Comment on above: Result Comment: METH OD TRACEABLE TO IDMS STANDARD Performed By: #### C MP #### [facility] ([facility]) [address] [place] [address] VIR GFR/1.73 sq M.predicted among non-blacks MDRD (S/P/Bld) [Vol rate/Area] 80 mL/min/{1.73_m2} Normal >=60 [facility] Comment on above: Result Comment: Repo rted eGFR is based on the CKD-EPI 2020 equation that does not use a race coefficient. Performed By: #### C MP #### [facility] ([facility]) [address] [place] [address] VIR Glucose [Mass/Vol] 93 mg/dL Normal 65-99 [facility] Comment on above: Performed By: #### C MP #### [facility] ([facility]) [address] [place] [address] VIR Potassium [Moles/Vol] 4.6 mmol/L Normal 3.5-5.0 [facility] Comment on above: Performed By: #### C MP #### [facility] ([facility]) [address] [place] [address] VIR Protein [Mass/Vol] 6.9 g/dL Normal 6.0-8.0 [facility] Comment on above: Performed By: #### C MP #### [facility] ([facility]) [address] [place] [address] VIR Sodium [Moles/Vol] 142 mmol/L Normal 134-146 [facility] Comment on above: Performed By: #### C MP #### [facility] ([facility]) [address] [place] [address] VIR Urea nitrogen [Mass/Vol] 11 mg/dL Normal 5-27 [facility] Comment on above: Performed By: #### C MP #### [facility] ([facility]) [address] [place] [address] VIR HEMOGLOBIN A1Con 07-09-2025 Glucose [Mass/Vol] 120 mg/dL Normal [facility] Comment on above: Performed By: #### H A1C #### [facility] ([facility]) [address] [place] [address] VIR HbA1c (Bld) [Mass fraction] 5.8 % High 4.4-5.6 [facility] Comment on above: Result Comment: ADA Guidelines Result HgbA1c Normal : less than 5.7 % Prediabetes : 5.7 % to 6.4 % Diabetes : > 6.4 % Use with caution in patients with abnormal hemoglobin variants as the half-life of red blood cells and in vivo glycation rates are affected. Performed By: #### H A1C #### [facility] ([facility]) [address] [place] [address] VIR LIPID PROFILEon 07-09-2025 Cholesterol [Mass/Vol] 150 mg/dL Normal 150-200 [facility] Comment on above: Performed By: #### L IPR #### [facility] ([facility]) [address] [place] [address] VIR Cholesterol in HDL [Mass/Vol] 59 mg/dL Normal >39 [facility] Comment on above: Result Comment: HDL <40 mg/dL - High Risk HDL > or = 40mg/dL- Desirable HDL >60 mg/dL - Negative Risk Performed By: #### L IPR #### [facility] ([facility]) [address] [place] [address] VIR Cholesterol in LDL [Mass/Vol] 79 mg/dL Normal <130 [facility] Comment on above: Result Comment: LDL <100 mg/dL - Desirable LDL >160 mg/dL - High Risk Performed By: #### L IPR #### [facility] ([facility]) [address] [place] [address] VIR CHOLESTEROL:HDL 2.5 Normal 1.0-5.0 [facility] Comment on above: Performed By: #### L IPR #### [facility] ([facility]) [address] [place] [address] VIR Triglyceride [Mass/Vol] 59 mg/dL Normal 27-150 [facility] Comment on above: Performed By: #### L IPR #### [facility] ([facility]) [address] [place] [address] VIR VERY LOW LIPOPROTEIN 12 mg/dL Normal 0-30 [facility] Comment on above: Performed By: #### L IPR #### [facility] ([facility]) [address] [place] [address] VIR THYROID PROFILE INCLUDES TSH FT4on 07-09-2025 Free T4 [Mass/Vol] 1.17 ng/dL Normal 0.61-1.60 [facility] Comment on above: Performed By: #### T HYR #### [facility] ([facility]) [address] [place] [address] VIR TSH 0.50 uIU/mL Normal 0.49-4.67 [facility] Comment on above: Performed By: #### T HYR #### [facility] ([facility]) [address] [place] [address] VIR Ambulatory Visit Summaryon 0 04-07-2025 Ambulatory Visit Summary Ambulatory Visit Summary MIKY FUENTES :1950 Visit Date:04/07/2025 Ambulatory Visit Instructions Your Diagnosis Kidney stone Your Care Team Attending Physician - DORA [...] stent, Repair of ventral hernia. Discharge Vitals Respiratory Rate 16 Blood Pressure 128/78 Height 165 cm Height 65 in Weight 90.9 kg Weight 200.4 lb BMI 33.39 Medications What How Much When Instructions Unchanged [...] one tab By Mouth Every day Unchanged potassium bicarbonate (K-Effervescent 25 mEq oral tablet, effervescent) 1 Tablets By Mouth 2 times a day Unchanged rivaroxaban (Xarelto 20 mg oral tablet) 1 Tablets Every day Allergies [place] (Unknown) Dogs (Unknown) Milk Products (Unknown) Mold (Unknown) ciprofloxacin (Rash) house dust mite allergen extract (Unknown) sulfa drugs (Rash) Problems Ongoing - Any problem that you are currently receiving treatment for. Abnormal abdominal CT scan Anticoagulated Asymptomatic microscopic hematuria BMI 40.0-44.9, adult BMI 45.0-49.9, adult CAD (coronary artery disease) Cholelithiasis Diabetes Enterobacter sepsis Gross hematuria History of kidney stones Hyperlipidemia Hypertension Hypothyroidism Irregular heart beat Kidney stone [...] choosing us for your care. Education Materials Percutaneous Nephrolithotomy, Care After After percutaneous nephrolithotomy, it is common to have: ??? Soreness or pain. ??? A small amount of blood or clear fluid coming from your incision for a few days. ??? Tiredness (fatigue). ??? Some blood in your pee (urine). This will last for a few days. ??? A feeling of needing to pee (urinate) often. It may feel urgent. You may have this if you have a small mesh tube (stent) in the part of your body that connects your bladder to your kidneys (ureter). Follow these instructions at home: Medicines ??? Take focw-yvt-vhasjdi and prescription medicines only as told by your health care provider. ??? If you were prescribed antibiotics, take them as told by your provider. Do not stop using the antibiotic even if you start to feel better. ??? Ask your provider if the medicine prescribed to you: ? Requires you to avoid driving or using machinery. ? Can cause constipation. You may need to take these actions to prevent or treat constipation: ? Drink enough fluid to keep your pee pale yellow. ? Take [id number]-miiejga or prescription medicines. ? Eat foods that are high in fiber, such as beans, whole grains, and fresh fruits and vegetables. ? Limit foods that are high in fat and processed sugars, such as fried or sweet foods. Incision care ??? Follow instructions from your provider about how to take care of your incision. Make sure you: ? Wash your hands with soap and water for at least 20 seconds before and after you change your bandage (dressing). If soa (more content not included)... Normal [place] [facility] Urology Office/Clinic Noteon 04-07-2025 Urology Office/Clinic Note Urology Office/Clinic Note Chief Complaint follow up with KUB, metabolic work up HPI Staff 74 yr old female here today for metabolic w/u w/KUB. KUB done 02/27/25 at [facility]. 24 hour urine dome 03/03/25 Previous Dx: kidney stone, gross hematuria. *Allopurinol 300mg qd therapy, effer-k 25 mEq bid BBSQ: 7 Denies dysuria, denies visible blood, denies abdominal/flank pain Review of Systems PHQ Score Initial Depression Screen Score: 0 SCORE No fever, chills, malaise, myalgia. No abdominal pain, flank pain, gross hematuria. Physical Exam Vitals & Measurements RR: 16 BP: 128/78 HT: 65 in HT: 165 cm WT: 200.4 lb WT: 90.9 kg BMI: 33.39 General: nontoxic, NAD Mouth: moist mucosa Lungs: normal respiratory effort Cardio: regular rate, good distal perfusion Abdomen: nondistended Neurologic: Grossly normal Skin: No rashes or suspicious lesions Assessment/Plan 1. Kidney stone (N20.0: Calculus of kidney) Hx of multiple lithotripsies in the past. [1] S/p Laser litho of large right renal stones (3cm stone burden per PRW op note) 09/11/25. Stent removed 10/07/25. Pt taking Effer-K 25 mEq twice daily and allopurinol 300 mg daily [1] TODAY: Discussed metabolic eval. Blood work looks good, specifically her serum uric acid level is low and her potassium level is WNL. 24hr Urine looks good. Needs to increase volume (1.6L) but otherwise her 24h values all look great on the allopurinol and Effer-K. Pt will continue both. Refills sent. KUB 02/27/25 - large L stone (13mm), large R stones (18mm). Discussed repeat lithotripsy vs PCNL vs monitoring extensively. Pt prefers the latter. I did print info on PCNL for her to review. F/u 6 mos w KUB prior. Ordered: Body Mass Index (BMI) documented 3008F Current tobacco non-user 1036F Depression Screening Negative 3352F E&M of Est. Patient Moderate 30-39 Min 14094 Medication list documented in medical record 1159F Most recent diastolic blood pressure <80 mm Hg 3078F Patient screen for fall risk: no falls in last year or 1 fall with no injury in last year 1101F Review of all meds by a prescribing practitioner or clinical pharmacist documented in EHR 1160F Systolic BP <130 mm Hg (Most Recent) 3074F Urnls Dip Stick Auto w/o Microscopy POC 83153 XR Abdomen 1 View 2. Gross hematuria (R31.0: Gross hematuria) No recent gross hematuria. No b.t. seen during stone procedure a few mos ago. No masses on CT wo 2022 or [facility] 2023. Does have microhematuria on UA today. No sx UTI so no indication to send for C&S. Ordered: E&M of Est. Patient Moderate 30-39 Min 59572 3. Urge incontinence (N39.41: Urge incontinence) Rare. BBSQ 7 very good control. Not bothersome enough to warrant tx per pt. Continue to monitor. Ordered: E&M of Est. Patient Moderate 30-39 Min 49562 Orders: allopurinol, 300 mg = 1 tab(s), Oral, Daily, # 90 cap(s), Refills(s) 3, Pharmacy: [id number], 165, cm, 04/07/25 11:28:00 EDT, Height/Length Dosing, 90.9, kg, 04/07/25 11:28:00 EDT, Weight Dosing doxycycline, 100 mg = 1 cap(s), Oral, Daily, Take 1 pill the day before the procedure and 1 pill after the procedure, # 2 cap(s), Refills(s) 0, Pharmacy: [facility], 165, cm, 07/15/24 15:14:00 EDT, Height/Length Dosing, 97.5, kg, 07/15/24 15:14:00... potassium bicarbonate, 25 mEq = 1 tab(s), Oral, BID, # 60 tab(s), Refills(s) 11, Pharmacy: [facility], 165, cm, 04/07/25 11:28:00 EDT, Height/Length Dosing, 90.9, kg, 04/07/25 11:28:00 EDT, Weight Dosing Follow-up With When Contact Information MO HAYDEN, Yehuda Haddad, PAWEL In 6 months [address] [id number]- Additional Instructions: Patient Education Percutaneous Nephrolithotomy, Care After Percutaneous Nephrolithotomy Problem List/Past Medical History Ongoing Abnormal abdominal CT scan Anticoagulated BMI 40.0-44.9, adult BMI 45.0-49.9, adult CAD (coronary artery disease) Cholelithiasis Diabetes Enterobacter sepsis Gross hematuria Hyperlipidemia Hypertension Hypothyroidism Irregular heart beat Kidney stone Ureteral stone with hydronephrosis Urge incontinence UTI (urinary tract infection) Historical Stress incontinence Procedure/Surgical History Cystoscopy (09/05/2022), Cystoscopy (11/30/2020), Cystoscopy (07/14/2020), Cystoscopy (07/08/2020), ESWL - Extracorporeal shock wave lithotripsy of bile duct calculus (07/17/2019), Gastric sleeve (10/29/2015), H/O: hysterectomy, Renal artery stent, Repair of ventral hernia. Medications allopurinol 300 mg Tab, 300 mg= 1 tab(s), Oral, Daily, 3 refills Caltrate 600 + D, Oral, BID Centrum Silver, 1 tab(s), Oral, Daily K-Effervescent 25 mEq oral tablet, effervescent, 25 mEq= 1 tab(s), Oral, BID, 11 refills levothyroxine 137 mcg (0.137 mg) oral capsule, 137 mcg= 1 cap(s), Oral, Daily lisinopril 2.5 mg Tab lovastatin 10 mg Tab Multaq, 400 mg, Oral, BID OTC joint supplement, one tab, Oral, Daily Tylenol 8 H (more content not included)... Normal [facility] Comment on above: Result Comment: Elec tronically Signed By: INGE CARDONA, DORA [place]\.br\Date and Time Signed: 04/07/25 12:45 EDT MR BRAIN WO CONTon 5 MR BRAIN WO CONT MR BRAIN WO CONT MR BRAIN WO CONT CLINICAL INFORMATION: Memory loss, cognitive impairment COMPARISON: None PROCEDURE: Routine MRI Brain was obtained without intravenous contrast. Multisequence, multiplanar imaging was obtained. Volumetric 3-D series were sent for NeuroQuant dementia report(s), this is generated at an independent workstation, by a third green party vendor, to further assess anatomy. Images quality controlled under physician supervision. FINDINGS: No acute diffusion signal abnormality. No midline shift, mass effect, or acute intracranial hemorrhage. Ventricular system is nondilated. Extra-axial spaces are unremarkable. Mild burden of age-appropriate white matter FLAIR signal within the periventricular and deep subcortical white matter, presumably related to chronic microangiopathic change. Bilateral pseudophakia. Infratemporal soft tissues are unremarkable. Normal appearance of the major intracranial arterial flow voids. Brainstem and cerebellum are unremarkable. Partial empty sella configuration. Per NeuroQuant analysis, hippocampal occupancy score measures in the 98th percentile. IMPRESSION: * No acute intracranial abnormality or clear etiology to account for patient's symptoms. Approved by Resident Hai Hensley DO on 03/18/2025 12:36 PM IIsaias have personally reviewed the image(s) and agree with and/or edited the report Finalized by Isaias Coelho on 03/19/2025 10:42 AM Normal [facility] Office Visiton 02-03-2025 Follow-up visit [id number] Miky Fuentes 1950 F Date Provider Department Center 02/03/2025 LEONOR GARZA BRAD Mccartney [facility] Family History Problem Relation Age of Onset Diabetes Mother Heart attack Father Coronary artery disease Brother Family Status - Relation Status Age at Mother Father Sister Brother Level of Service:90207 [place] OFFICE/OUTPATIENT NEW MODERATE MDM 45 MINUTES Normal [facility] CBC AND AUTO DIFFon 01-20-20 ABSOLUTE BASOPHIL 0.1 X10E9/L Normal 0.0-0.2 [facility] Comment on above: Performed By: #### C BCA, CMP, 2132-06 #### [facility] ([id number]) [address] [facility], [address] [place] [address] ABSOLUTE NEUTROPHIL 2.8 X10E9/L Normal 1.5-6.6 [facility] Comment on above: Performed By: #### C BCA, CMP, 2132-06 #### [facility] ([id number]) [address], [address] [place] [address] Basophils/100 WBC (Bld) 2.1 % Normal [facility] Comment on above: Performed By: #### Myrtle SELLERS [facility], 2132-06 #### [facility] ([id number]) [address], [address] [place] [address] Eosinophils (Bld) [#/Vol] 0.1 10*3/uL Normal 0.0-0.4 [facility] Comment on above: Performed By: #### Myrtle SELLERS [facility], 2132-06 #### [facility] ([id number]) [address], [address] [place] [address] Eosinophils/100 WBC (Bld) 1.7 % Normal [facility] Comment on above: Performed By: #### Myrtle SELLERS [facility], 2132-06 #### [facility] ([id number]) [address], [address] [place] [address] Erythrocyte distribution width (RBC) [Ratio] 20.9 % High 11.5-15.0 [facility] Comment on above: Performed By: #### Myrtle SELLERS [facility], 2132-06 #### [facility] ([id number]) [address] [address] [place] [address] Hematocrit (Bld) [Volume fraction] 30.5 % Low 35-47 [facility] Comment on above: Performed By: #### Myrtle SELLERS [facility], 2132-06 #### [facility] ([id number]) [address], [address] [place] [address] Hemoglobin (Bld) [Mass/Vol] 9.2 g/dL Low 11.7-15.5 [facility] Comment on above: Performed By: #### Myrtle SELLERS CMP, 2132-06 #### [facility] ([id number]) [address], [address] [place] [address] Lymphocytes (Bld) [#/Vol] 1.4 10*3/uL Normal 1.0-3.5 [facility] Comment on above: Performed By: #### Myrtle SELLERS CMP, 2132-06 #### [facility] ([id number]) [address], [address] [place] [address] Lymphocytes/100 WBC (Bld) 29.9 % Normal [facility] Comment on above: Performed By: #### Myrtle SELLERS CMP, 2132-06 #### [facility] ([id number]) [address], [address] [place] [address] MCH (RBC) [Entitic mass] 20.0 pg Low 27-34 [facility] Comment on above: Performed By: #### Myrtle SELLERS CMP, 2132-06 #### [facility] ([id number]) [address], [address] [place] [address] MCHC (RBC) [Mass/Vol] 30.2 g/dL Low 32-36 [facility] Comment on above: Performed By: #### Myrtle SELLERS CMP, 2132-06 #### [facility] ([id number]) [address], [address] [place] [address] MCV (RBC) [Entitic vol] 66 fL Low 80-100 [facility] Comment on above: Performed By: #### Myrtle SELLERS CMP, 2132-06 #### [facility] ([id number]) [address], [address] [place] [address] Monocytes (Bld) [#/Vol] 0.3 10*3/uL Normal 0-0.9 [facility] Comment on above: Performed By: #### Myrtle SELLERS CMP, 2132-06 #### [facility] ([id number]) [address], [address] [place] [address] Monocytes/100 WBC (Bld) 7.3 % Normal [facility] Comment on above: Performed By: #### Myrtle SELLERS CMP, 2132-06 #### [facility] ([id number]) [address], [facility] [address] [place] [address] Neutrophils/100 WBC (Bld) 59.0 % Normal [facility] Comment on above: Performed By: #### Myrtle SELLERS CMP, 2132-06 #### [facility] ([id number]) [address], [facility] [address] [place] [address] Platelet mean volume (Bld) [Entitic vol] 8.4 fL Normal 7-12 [facility] Comment on above: Performed By: #### Myrtle SELLERS CMP, 2132-06 #### [facility] ([id number]) [address] [address] [place] [address] Platelets (Bld) [#/Vol] 259 10*3/uL Normal 150-450 [facility] Comment on above: Performed By: #### Myrtle SELLERS CMP, 2132-06 #### [facility] ([id number]) [address], [address] [place] [address] RBC COUNT 4.60 X10E12/L Normal 3.80-5.20 [facility] Comment on above: Performed By: #### Myrtle SELLERS CMP, 2132-06 #### [facility] ([id number]) [address] [address] [place] [address] WBC (Bld) [#/Vol] 4.8 10*3/uL Normal 4.0-11.0 [facility] Comment on above: Performed By: #### Myrtle SELLERS CMP, 2132-06 #### [facility] ([id number]) [address], [address] [place] [address] CBC auto differentialon 12-28 Basophils (Bld) [#/Vol] 0.1 10*3/uL [facility] Basophils/100 WBC (Bld) 2.1 % [facility] Eosinophils (Bld) [#/Vol] 0.1 10*3/uL [facility] Eosinophils/100 WBC (Bld) 1.7 % [facility] Erythrocyte distribution width (RBC) [Ratio] 20.9 % High 11.5 - 15.0 % [facility] Hematocrit (Bld) [Volume fraction] 30.5 % Low 35 - 47 % [facility] Hemoglobin (Bld) [Mass/Vol] 9.2 g/dL Low 11.7 - 15.5 g/dL [facility] Interpretation and review of laboratory results Abnormal [facility] Lymphocytes (Bld) [#/Vol] 1.4 10*3/uL [facility] Lymphocytes/100 WBC (Bld) 29.9 % [facility] MCH (RBC) [Entitic mass] 20 pg Low 27 - 34 pg [facility] MCHC (RBC) [Mass/Vol] 30.2 g/dL Low 32 - 36 g/dL [facility] MCV (RBC) [Entitic vol] 66 fL Low 80 - 100 fL [facility] Monocytes (Bld) [#/Vol] 0.3 10*3/uL [facility] Monocytes/100 WBC (Bld) 7.3 % [facility] Neutrophils (Bld) [#/Vol] 2.8 10*3/uL [facility] Neutrophils/100 WBC (Bld) 59 % [facility] Platelet mean volume (Bld) [Entitic vol] 8.4 fL 7 - 12 fL [facility] Platelets (Bld) [#/Vol] 259 10*3/uL [facility] RBC (Bld) [#/Vol] 4.6 10*6/uL [facility] WBC corrected for nucl RBC Auto (Bld) [#/Vol] 4.8 [facility] COMPREHENSIVE METABOLIC PANE Good 01-19-2025 Albumin [Mass/Vol] 4.1 g/dL Normal 3.2-5.3 [facility] Comment on above: Performed By: #### C BCA, CMP, 2132-9 #### [facility] ([id number]) [address], [address] [place] [address] ALP [Catalytic activity/Vol] 100 U/L Normal 39-130 [facility] Comment on above: Performed By: #### Myrtle SELLERS CMP, 2132-06 #### [facility] ([id number]) [address], [address] [place] [address] ALT [Catalytic activity/Vol] 10 U/L Normal 0-31 [facility] Comment on above: Performed By: #### Myrtle SELLERS CMP, 2132-06 #### [facility] ([id number]) [address], [address] [place] [address] Anion gap [Moles/Vol] 9 mmol/L Normal 5-15 [facility] Comment on above: Performed By: #### Myrtle SELLERS CMP, 2132-06 #### [facility] ([id number]) [address], [address] [place] [address] AST [Catalytic activity/Vol] 15 U/L Normal 0-41 [facility] Comment on above: Performed By: #### Myrtle SELLERS CMP, 2132-06 #### [facility] ([id number]) [address], [address] [place] [address] Bilirubin [Mass/Vol] 0.5 mg/dL Normal 0.3-1.2 [facility] Comment on above: Performed By: #### Myrtle SELLERS CMP, 2132-06 #### [facility] ([id number]) [address], [address] [place] [address] Calcium [Mass/Vol] 10.5 mg/dL Normal 8.5-10.5 [facility] Comment on above: Performed By: #### Myrtle SELLERS CMP, 2132-06 #### [facility] ([id number]) [address], [address] [place] [address] Chloride [Moles/Vol] 104 mmol/L Normal 98-109 [facility] Comment on above: Performed By: #### C JEO SELLERS, 2132-06 #### [facility] ([id number]) [address], [address] [place] [address] CO2 [Moles/Vol] 27 mmol/L Normal 22-32 [facility] Comment on above: Performed By: #### C JOE SELLERS, 2132-06 #### [facility] ([id number]) [address], [address] [place] [address] Creatinine [Mass/Vol] 0.86 mg/dL Normal 0.40-1.00 [facility] Comment on above: Result Comment: METH OD TRACEABLE TO IDMS STANDARD Performed By: #### C JOE SELLERS, 2132-06 #### [facility] ([id number]) [address], [address] [place] [address] GFR/1.73 sq M.predicted among non-blacks MDRD (S/P/Bld) [Vol rate/Area] 71 mL/min/{1.73_m2} Normal >59 [facility] Comment on above: Result Comment: Reported eGFR is based on the CKD-EPI 2020 equation that does not use a race coefficient. Performed By: #### C JOE SELLERS, 2132-06 #### [facility] ([id number]) [address], [address] [place] [address] Glucose [Mass/Vol] 104 mg/dL High 65-99 [facility] Comment on above: Performed By: #### C JOE SELLERS, 2132-06 #### [facility] ([id number]) [address] [address] [place] [address] Potassium [Moles/Vol] 5.1 mmol/L High 3.5-5.0 [facility] Comment on above: Performed By: #### C JOE SELLERS, 2132-06 #### [facility] ([id number]) [address], [address] [place] [address] Protein [Mass/Vol] 7.2 g/dL Normal 6.0-8.0 [facility] Comment on above: Performed By: #### C BCA, CMP, 2132-06 #### [facility] ([id number]) [address], [address] [place] [address] Sodium [Moles/Vol] 140 mmol/L Normal 134-146 [facility] Comment on above: Performed By: #### C BCA, CMP, 2132-06 #### [facility] ([id number]) [address], [address] [place] [address] Urea nitrogen [Mass/Vol] 19 mg/dL Normal 5-27 [facility] Comment on above: Performed By: #### C BCA, [facility], 2132-06 #### [facility] ([id number]) [address], [address] [place] [address] Cobalamin (Vitamin B12) [Mas s/Vol]on 01-19-2025 [facility] Comprehensive metabolic pane good 01-19-2025 Albumin [Mass/Vol] 4.1 g/dL 3.2 - 5.3 g/dL [facility] ALP [Catalytic activity/Vol] 100 U/L 39 - 130 U/L [facility] ALT No additional P-5'-P [Catalytic activity/Vol] 10 U/L 0 - 31 U/L [facility] Anion gap [Moles/Vol] 9 mmol/L 5 - 15 mmol/L [facility] AST [Catalytic activity/Vol] 15 U/L 0 - 41 U/L [facility] Bilirubin [Mass/Vol] 0.5 mg/dL 0.3 - 1.2 mg/dL [facility] Calcium [Mass/Vol] 10.5 mg/dL 8.5 - 10.5 mg/dL [facility] Chloride [Moles/Vol] 104 mmol/L 98 - 109 mmol/L [facility] CO2 [Moles/Vol] 27 mmol/L 22 - 32 mmol/L [facility] Creatinine [Mass/Vol] 0.86 mg/dL 0.40 - 1.00 mg/dL [facility] Comment on above: METHOD TRACEABLE TO [facility] STANDARD eGFR (CKD-EPI)non-race dependent 71 - PINF [facility] Comment on above: Reported eGFR is based on the CKD-EPI 2020 equation that does not use a race coefficient. Glucose [Mass/Vol] 104 mg/dL High 65 - 99 mg/dL [facility] Interpretation and review of laboratory results Abnormal [facility] Potassium [Moles/Vol] 5.1 mmol/L High 3.5 - 5.0 mmol/L [facility] Protein [Mass/Vol] 7.2 g/dL 6.0 - 8.0 g/dL [facility] Sodium [Moles/Vol] 140 mmol/L 134 - 146 mmol/L [facility] Urea nitrogen [Mass/Vol] 19 mg/dL 5 - 27 mg/dL [facility] POCT urinalysis dipstick onl yon 01-19-2025 Appearance (U) cloudy [facility] External Poct Urine Bilirubin Moderate [facility] External Poct Urine Blood Large [facility] External Poct Urine Color red [facility] External Poct Urine Glucose Negative [facility] External Poct Urine Ketones Trace [facility] External Poct Urine Leukocyte Esterase Large [facility] External Poct Urine Nitrite Negative [facility] External Poct Urine Ph 5.5 [facility] External Poct Urine Protein 3+ [facility] Comment on above: 300mg External Poct Urine Specific Luther 1.025 [facility] External Poct Urine Urobilinogen 1.0 [facility] URINE CULTUREon 01-19-2025 Bacteria identified Cx Nom (U) CULTURE RESULTS <10,000 ORGANISMS/ML NORMAL URO GENITAL LUDWIN Normal [facility] Comment on above: Performed By: #### 6 30-4 #### [facility] ([id number]) [address] [place] [address], [address] [place] [address] VITAMIN B12on 01-19-2025 Cobalamin (Vitamin B12) [Mass/Vol] 658 pg/mL Normal 180-914 [facility] Comment on above: Performed By: #### C BCA, CMP, 2132-06 #### [facility] ([id number]) [address] [facility], [address] [place] [address] Vitamin B12on 01-19-2025 Cobalamin (Vitamin B12) [Mass/Vol] 658 pg/mL 180 - 914 pg/mL [facility] 36on 12-11-2024 36 Regarding CTA coronaries result from 11/27/2024: MD Maite Jacobs MA Inform patient that coronary CT angiogram showed mild to moderate coronary artery disease. No need for intervention. However it showed that her heart function is weak with ejection fraction of 37% which was not seen on her echo. Please repeat 2D echo with [facility] but please let her come to [facility] to have it done. Also arrange for her to be seen by Dr. Alcaraz as soon as possible. The please add Farxiga 10 mg daily and Aldactone 25 mg daily to her current medical regimen and check BMP in 1 week. Spoke with patient and she agrees to have echo at [facility]. I told her I would send the 2 RX's to her pharmacy and call them to see if they could take free Farxiga voucher over the phone to save her a trip to the office. She will have labs 1 week after starting meds. BMP faxed to [facility]. Follow up made with Dr. Alcaraz for 02/03/2025. I advised patient that we would call her with result and that she didn't have to wait until 02/03 for results. She verbalized understanding. Normal [facility] CREATININE, SERUMon 11-27-19 25 Creatinine [Mass/Vol] 0.88 mg/dL Normal 0.60-1.20 [facility] Comment on above: Performed By: #### L [id number] #### [facility] ([facility]) [address] [place] [address] GLOMERULAR FILTRATION RATE ML/MIN/1.73 SQ M.PREDICTED 68.9 mL/min/1.73m*2 Normal >60.0 [facility] Comment on above: Result Comment: [facility]???s estimated glomerular filtration rate (eGFR) will no [...] individuals. Performed By: #### L AB383 #### [facility] ([facility]) [address] [place] [address] CTA HEART CORONARY W IV CONT RAST [...] Sher MD. Not Vldtd Invalid Interpretation Code [facility] Labon 11-27-2024 Lab [id number] Alfredo,Miky 1950 F Date Provider Department Center 11/27/2024 2245-[facility] OPD LAB RESOURCE [facility] OPD DC Medical C No family history on file Normal [facility] Office Visiton 10-17-2024 Follow-up visit [id number] Alfredo,Miky 1950 F Date Provider Department Center 10/17/2024 92230-ZJVVCALUL SMITH [facility] No family history on file Level of Service:12690 NC OFFICE/OUTPATIENT NEW MODERATE MDM 45 MINUTES Normal [facility] No Panel Informationon 09-02 VIC Avila 09/02/2024 [...] discussed. Consent was given by the patient. [facility] KAL [facility] XR Knee - right 1 or 2 [...] on bone articulation and patella femoral joint [facility] Radiology Study observation (narrative) [facility] COMPREHENSIVE METABOLIC PANE Good 08-18-2024 Albumin [Mass/Vol] 3.9 g/dL Normal 3.2-5.3 [facility] Comment on above: Performed By: #### Min KABA, 10717-9, CMP #### [facility] ([id number]) [address], [address] [place] [address] ALP [Catalytic activity/Vol] 114 U/L Normal 39-130 [facility] Comment on above: Performed By: #### Min KABA, 65650-7, CMP #### [facility] ([id number]) [address] [place] [address] ALT [Catalytic activity/Vol] 15 U/L Normal 0-31 [facility] Comment on above: Performed By: #### Min KABA, 63454-7, CMP #### [facility] ([id number]) [address], [address] [place] [address] Anion gap [Moles/Vol] 8 mmol/L Normal 5-15 [facility] Comment on above: Performed By: #### Min KABA, 39094-6, CMP #### [facility] ([id number]) [address], [address] [place] [address] AST [Catalytic activity/Vol] 20 U/L Normal 0-41 [facility] Comment on above: Performed By: #### Min KABA, 71873-7, CMP #### [facility] ([id number]) [address], [address] [place] [address] Bilirubin [Mass/Vol] 0.5 mg/dL Normal 0.3-1.2 [facility] Comment on above: Performed By: #### Min KABA, 36601-7, CMP #### [facility] ([id number]) [address] [place] [address] Calcium [Mass/Vol] 10.4 mg/dL Normal 8.5-10.5 [facility] Comment on above: Performed By: #### Min KABA 88179-5, CMP #### [facility] ([id number]) [address], [address] [place] [address] Chloride [Moles/Vol] 103 mmol/L Normal 98-109 [facility] Comment on above: Performed By: #### Min KABA 10706-1, CMP #### [facility] ([id number]) [address], [address] [place] [address] CO2 [Moles/Vol] 27 mmol/L Normal 22-32 [facility] Comment on above: Performed By: #### Min KABA 28412-7, CMP #### [facility] ([id number]) [address], [address] [place] [address] Creatinine [Mass/Vol] 0.80 mg/dL Normal 0.40-1.00 [facility] Comment on above: Result Comment: METH OD TRACEABLE TO IDMS STANDARD Performed By: #### Min KABA 28173-4, CMP #### [facility] ([id number]) [address], [address] [place] [address] GFR/1.73 sq M.predicted among non-blacks MDRD (S/P/Bld) [Vol rate/Area] 77 mL/min/{1.73_m2} Normal >59 [facility] Comment on above: Result Comment: Reported eGFR is based on the CKD-EPI 2020 equation that does not use a race coefficient. Performed By: #### Min KABA 69845-7, CMP #### [facility] ([id number]) [address], [address] [place] [address] Glucose [Mass/Vol] 99 mg/dL Normal 65-99 [facility] Comment on above: Performed By: #### Min KABA 19690-7, CMP #### [facility] ([id number]) [address], [address] [place] [address] Potassium [Moles/Vol] 4.0 mmol/L Normal 3.5-5.0 [facility] Comment on above: Performed By: #### Min KABA, 62506-2, CMP #### [facility] ([id number]) [address], [address] [place] [address] Protein [Mass/Vol] 7.0 g/dL Normal 6.0-8.0 [facility] Comment on above: Performed By: #### Min KABA, 42804-8, CMP #### [facility] ([id number]) [address], [address] [place] [address] Sodium [Moles/Vol] 138 mmol/L Normal 134-146 [facility] Comment on above: Performed By: #### Min KABA, 02859-9, CMP #### [facility] ([id number]) [address], [address] [place] [address] Urea nitrogen [Mass/Vol] 18 mg/dL Normal 5-27 [facility] Comment on above: Performed By: #### Min KABA, 58970-9, CMP #### [facility] ([id number]) [address], [address] [place] [address] Comprehensive metabolic pane good 08-18-2024 Albumin [Mass/Vol] 3.9 g/dL 3.2 - 5.3 g/dL [facility] ALP [Catalytic activity/Vol] 114 U/L 39 - 130 U/L [facility] ALT No additional P-5'-P [Catalytic activity/Vol] 15 U/L 0 - 31 U/L [facility] Anion gap [Moles/Vol] 8 mmol/L 5 - 15 mmol/L [facility] AST [Catalytic activity/Vol] 20 U/L 0 - 41 U/L [facility] Bilirubin [Mass/Vol] 0.5 mg/dL 0.3 - 1.2 mg/dL [facility] Calcium [Mass/Vol] 10.4 mg/dL 8.5 - 10.5 mg/dL [facility] Chloride [Moles/Vol] 103 mmol/L 98 - 109 mmol/L [facility] CO2 [Moles/Vol] 27 mmol/L 22 - 32 mmol/L [facility] Creatinine [Mass/Vol] 0.8 mg/dL 0.40 - 1.00 mg/dL [facility] Comment on above: METHOD TRACEABLE TO [facility] STANDARD eGFR (CKD-EPI)non-race dependent 77 - PINF [facility] Comment on above: Reported eGFR is based on the CKD-EPI 2020 equation that does not use a race coefficient. Glucose [Mass/Vol] 99 mg/dL 65 - 99 mg/dL [facility] Potassium [Moles/Vol] 4 mmol/L 3.5 - 5.0 mmol/L [facility] Protein [Mass/Vol] 7 g/dL 6.0 - 8.0 g/dL [facility] Sodium [Moles/Vol] 138 mmol/L 134 - 146 mmol/L [facility] Urea nitrogen [Mass/Vol] 18 mg/dL 5 - 27 mg/dL [facility] Lipid 1996 panelon 4 Cholesterol [Mass/Vol] 187 mg/dL 150 - 200 mg/dL [facility] Cholesterol in HDL [Mass/Vol] 66 mg/dL 39 - PINF mg/dL [facility] Comment on above: HDL <40 mg/dL - High Risk HDL > or = 40mg/dL- Desirable HDL >60 mg/dL - Negative Risk Cholesterol in LDL [Mass/Vol] 107 mg/dL NINF - 130 mg/dL [facility] Comment on above: LDL <100 mg/dL - Desirable LDL >160 mg/dL - High Risk Cholesterol in VLDL [Mass/Vol] 14 mg/dL 0 - 30 mg/dL [facility] Cholesterol.total /Cholesterol in HDL [Mass ratio] 2.8 {ratio} 1.0 - 5.0 [facility] Triglyceride [Mass/Vol] 68 mg/dL 27 - 150 mg/dL [facility] Cholesterol [Mass/Vol] 187 mg/dL Normal 150-200 [facility] Comment on above: Performed By: #### Min KABA, 54039-5, CMP #### [facility] ([id number]) [address], [address] [place] [address] Cholesterol in HDL [Mass/Vol] 66 mg/dL Normal >39 [facility] Comment on above: Result Comment: HDL <40 mg/dL - High Risk HDL > or = 40mg/dL- Desirable HDL >60 mg/dL - Negative Risk Performed By: #### Min KABA, 71100-6, CMP #### [facility] ([id number]) [address] [place] [address] Cholesterol in LDL [Mass/Vol] 107 mg/dL Normal <130 [facility] Comment on above: Result Comment: LDL <100 mg/dL - Desirable LDL >160 mg/dL - High Risk Performed By: #### Min KABA, 11513-2, CMP #### [facility] ([id number]) [address], [address] [place] [address] Cholesterol in VLDL [Mass/Vol] 14 mg/dL Normal 0-30 [facility] Comment on above: Performed By: #### Min KABA, 49455-1, CMP #### [facility] ([id number]) [address], [address] [place] [address] CHOLESTEROL:HDL 2.8 Normal 1.0-5.0 [facility] Comment on above: Performed By: #### T SENDY, 27971-6, CMP #### [facility] ([id number]) [address], [facility] [address] [place] [address] Triglyceride [Mass/Vol] 68 mg/dL Normal 27-150 [facility] Comment on above: Performed By: #### T SENDY, 64422-7, CMP #### [facility] ([id number]) [address], [facility] [address] [place] [address] No Panel Informationon 08-18 [facility] THYROID PROFILEon 08-18-2024 Free T4 [Mass/Vol] 1.33 ng/dL Normal 0.61-1.60 [facility] Comment on above: Performed By: #### Min KABA, 79463-7, CMP #### [facility] ([id number]) [address], [address] [place] [address] TSH 0.35 uIU/mL Low 0.49-4.67 [facility] Comment on above: Performed By: #### T SENDY, 17236-1, CMP #### [facility] ([id number]) [address], [address] [address] Thyroid profile includes TSH FT4on 08-18-2024 Free T4 [Mass/Vol] 1.33 ng/dL 0.61 - 1.60 ng/dL [facility] Interpretation and review of laboratory results Abnormal [facility] TSH Qn 0.35 m[IU]/L Low [facility] UroVysion Fish and Urine Cyt o ([facility])on 08-05-2024 UVFISH & UC Diagnosis Info Invalid Interpretation Code [facility] Comment on above: Result Comment: [...] with cytology and cystoscopy results. * CPT: 45752, 35677. MicroScopic Description - MicroScopic Description - Electronically signed by : on: 08/05/2024 16:40:06 Performed By: #### 1 [id number] #### [facility] [address] [place] [address] UroVysion Fish and Urine Cyt o ([facility])on 07-29-2024 UVUC Method of Extraction Voided Normal [facility] Comment on above: Performed By: #### 1 [id number] #### [facility] [address] [place] [address] [facility] Number of Jars 1 Invalid Interpretation Code [facility] Comment on above: Performed By: #### 1 [id number] #### [facility] [address] [place] [address] [facility] Specimen Urine Normal [facility] Comment on above: Performed By: #### 1 [id number] #### [facility] [address] [place] [address] [facility] Type of Service Technical Only Normal [facility] Comment on above: Performed By: #### 1 [id number] #### [facility] [address] [place] [address] Urine Cytology ([facility])on 07-18-2024 Microscopic exam Cytology (U) [Interp] Diagnosis Info Invalid Interpretation Code [facility] Comment on above: Result Comment: [...] on: 07/18/2024 12:47:49 Performed By: #### 1 [id number] #### [facility] [address] [place] [address] Ambulatory Visit Summaryon 0 07-15-2024 Ambulatory Visit [...] When: Comments: pending review of imaging Where: [address] [place], [place] [address]- Medications What How Much When Instructions Unchanged [...] physician if questions or concerns Allergies [place] (Unknown) Dogs (Unknown) Milk Products (Unknown) Mold [...] the b (more content not included)... Normal [facility] Urine Cytology ([facility])on 0 07-15-2024 Method of Extraction Voided Normal [facility] Comment on above: Performed By: #### 1 [id number] #### [facility] [address] [place] [address] Number of Jars 1 Invalid Interpretation Code [facility] Comment on above: Performed By: #### 1 [id number] #### [facility] [address] [place] [address] Specimen Clean Catch Normal [facility] Comment on above: Performed By: #### 1 [id number] #### [facility] [address] [place] [address] Type of Service Technical Only Normal [facility] Comment on above: Performed By: #### 1 [id number] #### [facility] [address] [place] [address] Urology Office/Clinic Noteon 07-15-2024 Urology Office/Clinic Note [...] with voice recognition artificial intelligence software, specifically Telepartner, CloudSwitch and or Catchafire. Substitutions may have occurred due to the [...] Urnls Dip Stick Auto w/o Microscopy POC 11969 Follow-up With When Contact Information MO HAYDEN, Yehuda Haddad, URL [address] [id number]- Additional Instructions: pending review of imaging Patient Education Kidney Stones, Nhzi-on-Vjqf Hematuria, Adult Problem List/Past Medical History Ongoing [...] bile duct (more content not included)... Normal [facility] Comment on above: Result Comment: Elec tronically Signed By: Wong ROLLINS, RAAD, Radha Lopes\.br\Date and Time Signed: 07/15/24 15:39 EDT ECG 12 Leadon 03-06-2024 Sinus bradycardia with occasional PVCs Low voltage QRS Nonspecific ST change QTc 391 ms [facility] Work Phone: BASIC METABOLIC PANLon 02-17 Anion gap [Moles/Vol] 6 mmol/L Normal 5-15 [facility] Comment on above: Performed By: #### B YONATAN, THYR #### [facility] ([id number]) [address], [address] [place] [address] Calcium [Mass/Vol] 9.8 mg/dL Normal 8.5-10.5 [facility] Comment on above: Performed By: #### Win TAM, THYR #### [facility] ([id number]) [address], [address] [place] [address] Chloride [Moles/Vol] 106 mmol/L Normal 98-109 [facility] Comment on above: Performed By: #### Win TAM, THYR #### [facility] ([id number]) [address], [address] [place] [address] CO2 [Moles/Vol] 31 mmol/L Normal 22-32 [facility] Comment on above: Performed By: #### Win TAM, THYR #### [facility] ([id number]) [address], [address] [place] [address] Creatinine [Mass/Vol] 0.90 mg/dL Normal 0.40-1.00 [facility] Comment on above: Result Comment: METH OD TRACEABLE TO IDMS STANDARD Performed By: #### B YONATAN, THYR #### [facility] ([id number]) [address], [address] [place] [address] GFR/1.73 sq M.predicted among non-blacks MDRD (S/P/Bld) [Vol rate/Area] 68 mL/min/{1.73_m2} Normal >59 [facility] Comment on above: Result Comment: Reported eGFR is based on the CKD-EPI 2020 equation that does not use a race coefficient. Performed By: #### B YONATAN, THYR #### [facility] ([id number]) [address], [address] [place] [address] Glucose [Mass/Vol] 105 mg/dL High 65-99 [facility] Comment on above: Performed By: #### Win TAM, THYR #### [facility] ([id number]) [address], [address] [place] [address] Potassium [Moles/Vol] 4.2 mmol/L Normal 3.5-5.0 [facility] Comment on above: Performed By: #### Win TAM, THYR #### [facility] ([id number]) [address], [address] [place] [address] Sodium [Moles/Vol] 143 mmol/L Normal 134-146 [facility] Comment on above: Performed By: #### Win TAM, THYR #### [facility] ([id number]) [address], [address] [place] [address] Urea nitrogen [Mass/Vol] 19 mg/dL Normal 5-27 [facility] Comment on above: Performed By: #### Win TAM, THYR #### [facility] ([id number]) [address], [address] [place] [address] Basic Metabolic Panelon 04-2 Anion gap [Moles/Vol] 6 mmol/L 5 - 15 mmol/L [facility] Calcium [Mass/Vol] 9.8 mg/dL 8.5 - 10.5 mg/dL [facility] Chloride [Moles/Vol] 106 mmol/L 98 - 109 mmol/L [facility] CO2 [Moles/Vol] 31 mmol/L 22 - 32 mmol/L [facility] Creatinine [Mass/Vol] 0.90 mg/dL 0.40 - 1.00 mg/dL [facility] Comment on above: METHOD TRACEABLE TO IDAZ STANDARD eGFR (CKD-EPI)non-race dependent 68 - PINF [facility] Comment on above: Reported eGFR is based on the CKD-EPI 2020 equation that does not use a race coefficient. Glucose [Mass/Vol] 105 mg/dL High 65 - 99 mg/dL [facility] Interpretation and review of laboratory results Abnormal [facility] Potassium [Moles/Vol] 4.2 mmol/L 3.5 - 5.0 mmol/L [facility] Sodium [Moles/Vol] 143 mmol/L 134 - 146 mmol/L [facility] Urea nitrogen [Mass/Vol] 19 mg/dL 5 - 27 mg/dL [facility] THYROID PROFILEon 02-18-2024 Free T4 [Mass/Vol] 1.92 ng/dL High 0.61-1.60 [facility] Comment on above: Performed By: #### B MP, THYR #### [facility] ([id number]) [address] [facility], [address] [place] [address] TSH 0.58 uIU/mL Normal 0.49-4.67 [facility] Comment on above: Performed By: #### B MP, THYR #### [facility] ([id number]) [address] [facility], [address] [place] [address] Thyroid profile includes TSH FT4on 02-18-2024 Free T4 [Mass/Vol] 1.92 ng/dL High 0.61 - 1.60 ng/dL [facility] Interpretation and review of laboratory results Abnormal [facility] TSH Qn 0.58 m[IU]/L [facility] Ambulatory Visit Summaryon 1 Ambulatory Visit Summary MIKY FUENTES :1950 Visit Date:10/26/2023 Ambulatory Visit Instructions Your Diagnosis Ureteral stone with hydronephrosis Kidney stone Tests Performed Urnls Dip Stick Auto w/o Microscopy POC 20937 Your Care Team Attending Physician - Yehuda [...] AM EST With: Where: [facility] Normal [address] [place] [address] [place] [address]- \.br\ You Need to Schedule the Following Appointments\.br\ Follow Up with MO HAYDEN, Yehuda Haddad, PAWEL When: \.br\ Where:\.br\ [address] [place] [address] D\.br\ [place] [address]-\.br\ Medications\.br\ What How Much When Instructions\.br\ New potassium bicarbonate (K-Effervescent 25 mEq oral tablet, effervescent) 1 Tablets By Mouth 2 times a day Refills: 11 Pickup at [facility]\.br\ Unchanged allopurinol (allopurinol 300 mg Tab) [...] if questions or concerns \.br\ Pharmacy Information\.br\ [facility]: [address] [place], [place] [id number] [phone]\.br\ \.br\ What How Much When Why Comments\.br\ Stop Taking tamsulosin (Flomax 0.4 mg Cap) 1 Capsules By Mouth Every day Right flank pain Kidney stones Gross hematuria\.br\ Test Results\.br\ Urnls Dip Stick Auto w/o Microscopy POC 41467 (10/26/2023)\.br\ Bilirubin Urine Dipstick - Negative\.br\ Blood Urine Dipstick - 3+ Large\.br\ Glucose Urine Dipstick - Negative\.br\ Ketones Urine Dipstick - Negative\.br\ Leukocytes Urine Dipstick - Negative\.br\ Nitrite Urine Dipstick - Negative\.br\ Protein Urine Dipstick - 2+ (100 mg/dl)\.br\ Specific Luther Urine Dipstick - 1.025\.br\ Urine Appearance Urine Dipstick - Slightly cloudy\.br\ Urine Color Urine Dipstick - Yellow\.br\ Urobilinogen Urine Dipstick - Normal 0.2-1 EU/dl\.br\ pH Urine Dipstick - 5\.br\ Allergies\.br\ [place] (Unknown)\.br\ Dogs (Unknown)\.br\ Milk Products (Unknown)\.br\ Mold [...] \.br\ Have a salad and fruit [facility] Patient Educationon 10-26-20 Patient Education Nephrology Dietary [...] Spinach (cooked), rhubarb, beets, sweet potatoes, and [place] chard. ? Peanuts. ? Potato chips, maori fries, and baked potatoes with skin on. ? Nuts and nut products. ? Chocolate. ? If you regularly take a diuretic medicine, make sure to eat at least 1 or 2 servings of fruits or vegetables that are high in potassium each day. These include: ? Avocado. ? Banana. ? Harmon, prune, carrot, or tomato juice. ? Baked [...] fish oil, or vitamin B6. ? Take shyz-lyt-qzqowlr and prescription medicines only as told by your health care provider. These include supplements. What foods sh (more content not included)... Normal [facility] RAD - MISCon 10-26-2023 [facility] [id number]#1 .00TIFF Normal [facility] [id number]#1 .00TIFF [facility] Urology Office/Clinic Noteon 10-26-2023 Urology Office/Clinic Note Chief Complaint CT Review HPI Staff 2 wk f/u with KUB. Saw DAXA at prior OV. Previous Dx: R flank pain, kidney stones, gross hematuria. S/p ESWL 11/18/20. CT AP wo con done 10/11/23 at [facility].Was given Tamsulosin, however stopped taking after [...] Information MO HAYDEN, Yehuda Haddad, URL [address] [id number]- Additional Instructions: 6 months Patient Education Dietary [...] joint sup (more content not included)... Normal [facility] Comment on above: Result Comment: Elec tronically Signed By: MO HAYDEN, Yehuda R\.br\Date and Time Signed: 10/26/23 09:11 EST\.br\Electronically Co-Signed By: Chantal Bishop\Date and Time Co-Signed: 10/26/23 09:09 EST RAD - CT Reporton 10-15-2023 RAD - CT Report [id number]# 1.00TIFF Normal [facility] RAD - CT Report [id number]#1 .00TIFF Normal [facility] RAD - MISCon 10-15-2023 RAD - MISC [id number]#1 .00TIFF Normal [facility] RAD - MISC [id number]#1 .00TIFF Normal [facility] Ambulatory Visit Summaryon 1 12-10-2022 Ambulatory Visit Summary MIKY FUENTES :1950 Visit Date:10/09/2023 Ambulatory Visit Instructions Your Diagnosis Gross hematuria Right flank pain Tests Performed Urnls Dip Stick Auto w/o Microscopy POC 34194 Your Care Team Attending Physician - DORA [...] Urnls Dip Stick Auto w/o Microscopy POC 19385 (10/09/2023) Bilirubin Urine Dipstick - Negative Blood Urine Dipstick - 3+ Large Glucose Urine Dipstick - Negative Ketones Urine Dipstick - Negative Leukocytes Urine Dipstick - Negative Nitrite Urine Dipstick - Negative Protein Urine Dipstick - 3+ (300 mg/dl) Specific Luther Urine Dipstick - >=1.030 Urine Appearance Urine Dipstick - Clear Urine Color Urine Dipstick - Yellow Urobilinogen Urine Dipstick - Normal 0.2-1 EU/dl pH Urine Dipstick - 5.5 Allergies [place] (Unknown) Dogs (Unknown) Milk Products (Unknown) Mold [...] you for choosing us for your care. Pipe [facility] Patient Educationon 10-09-20 Patient Education Urology [...] these instructions at home: Medicines ? Take tasz-sbv-chqciln and prescription medicines only as told by [...] the blood stops without treatment. ? Take roam-iqy-irleqdy and prescription medicines only as told by your health care provider. ? Drink enough fluid to keep your urine pale yellow. This information is not intended to replace advice given to you by your health care provider. Make sure you discuss any questions you have with your health care provider. Document Revised: 06/15/2021 Document Reviewed: 06/15/2021 Lever Patient Education ? 2022 [employer]. Normal [facility] Urology Office/Clinic Noteon 10-09-2023 Urology [...] Daily, # 30 cap(s), Refills(s) 0, Pharmacy: [facility], 165, cm, 10/09/23 15:24:00 EST, Height/Length Dosing, 113, kg, 12/12/23 15:24:00 EST, Weight Dosing CT Abdomen w/o Contrast E&M of Est. Patient Moderate 30-39 Min 70391 2. Kidney stones (N20.0: Calculus of kidney) see #1 KUB from this spring showed several medium (6-7mm) R renal stones has had multiple lithotripsy in past Ordered: tamsulosin, 0.4 mg = 1 cap(s), Oral, Daily, # 30 cap(s), Refills(s) 0, Pharmacy: [facility], 165, cm, 10/09/23 15:24:00 EST, Height/Length Dosing, 113, kg, 10/09/23 15:24:00 EST, Weight Dosing CT Abdomen w/o Contrast E&M of Est. Patient Moderate 30-39 Min 62033 3. Gross hematuria (R31.0: Gross hematuria) see #1 Ordered: tamsulosin, 0.4 mg = 1 cap(s), Oral, Daily, # 30 cap(s), Refills(s) 0, Pharmacy: [facility], 165, cm, 10/09/23 15:24:00 EST, Height/Length Dosing, 113, kg, 10/09/23 15:24:00 EST, Weight Dosing CT Abdomen w/o Contrast E&M of Est. Patient Moderate 30-39 Min 37297 Urnls Dip Stick Auto w/o Microscopy POC 66165 Follow-up With When Contact Information INGE CARDONA, DORA Washburn, URL [address] [facility] [place] [address] Business (1) Additional Instructions: pending [...] Oral, B (more content not included)... Normal [facility] Comment on above: Result Comment: Elec tronically Signed By: INGE CARDONA, DORA Washburn\.br\Date and Time Signed: 10/09/23 15:49 EST CREATININEon 03-05-2023 Creatinine [Mass/Vol] 1.16 mg/dL Critically high 0.55-1.02 [facility] Comment on above: Performed By: #### C AIYANA #### [facility] [address] [place] [address] Dr. Alysha Machuca EGFR-AF GUYANESE 56 mL/min/1.73m2 Critically low >=60 [facility] Comment on above: Performed By: #### C AIYANA #### [facility] [address] [address] [address] Alysha Machuca EGFR-NON AF GUYANESE 46 mL/min/1.73m2 Critically low >=60 [facility] Comment on above: Performed By: #### C AIYANA #### [facility] [address] [place] [address] ABD/PELVIS WO CONon [...] KYLE CHENEY Date: 2023-03-05 15:08 Normal [facility] VITAMIN B1 (THIAMINE)on 01-28 Vit. B1, Whole Blood 132.2 nmol/L Normal 66.5-200.0 [facility] Comment on above: Performed By: #### V ITB1T ####[facility] [address] [place], [place] [address]IfDr. Alysha Machuca CBC AUTO DIFFon 02-20-2023 BASO # 0.1 103/ul Normal 0.0-0.1 [facility] Comment on above: Performed By: #### C BC #### [facility] [address] [address] [address] Alysha Machuca Basophils/100 WBC (Bld) 0.9 % Normal 0.2-2.0 [facility] Comment on above: Performed By: #### C BC #### [facility] [address] [place], [place] [address] Dr. Alysha Machuca EO # 0.2 103/ul Normal 0.0-0.7 [facility] Comment on above: Performed By: #### C BC #### [facility] [address] [place] [address] Dr. Alysha Machuca Eosinophils/100 WBC (Bld) 3.0 % Normal 0.9-7.0 [facility] Comment on above: Performed By: #### C BC #### [facility] [address] [place] [address] Dr. Alysha Machuca Erythrocyte distribution width (RBC) [Ratio] 13.9 % Normal 11.0-15.0 [facility] Comment on above: Performed By: #### C BC #### [facility] [address] [place] [address] Dr. Alysha Machuca Hematocrit (Bld) [Volume fraction] 39.5 % Normal 36.0-48.0 [facility] Comment on above: Performed By: #### C BC #### [facility] [address] [place] [address] Dr. Alysha Machuca Hemoglobin (Bld) [Mass/Vol] 12.7 g/dL Normal 12.0-16.0 [facility] Comment on above: Performed By: #### C BC #### [facility] [address] [place] [address] Dr. Alysha Machuca IG # 0.01 10e3/ul Normal 0.00-0.03 [facility] Comment on above: Performed By: #### C BC #### [facility] [address] [place] [address] Dr. Alysha Machuca IG % 0.2 % Normal 0.0-0.5 [facility] Comment on above: Performed By: #### C BC #### [facility] [address] [place] [address] Dr. Alysha Machuca LYMPH # 1.7 103/ul Normal 1.2-3.8 [facility] Comment on above: Performed By: #### C BC #### [facility] [address] [place] [address] Dr. Alysha Machuca Lymphocytes/100 WBC (Bld) 30.7 % Normal 20.5-60.0 [facility] Comment on above: Performed By: #### C BC #### [facility] [address] [place] [address] Dr. Alysha Machuca MANUAL DIFF REQ NO Normal [facility] Comment on above: Performed By: #### C BC #### [facility] [address] [place] [address] Dr. Alysha Machuca MCH (RBC) [Entitic mass] 29.3 pg Normal 26.7-34.0 [facility] Comment on above: Performed By: #### C BC #### [facility] [address] [place] [address] Dr. Alysha Machuca MCHC (RBC) [Mass/Vol] 32.2 g/dL Normal 29.9-35.2 [facility] Comment on above: Performed By: #### C BC #### [facility] [address] [place] [address] Dr. Alysha Machuca MCV (RBC) [Entitic vol] 91.0 fL Normal 81.0-99.0 [facility] Comment on above: Performed By: #### C BC #### [facility] [address] [place] [address] Dr. Alysha Machuca MONO # 0.4 103/ul Normal 0.3-0.8 [facility] Comment on above: Performed By: #### C BC #### [facility] [address] [place] [address] Dr. Alysha Machuca Monocytes/100 WBC (Bld) 6.8 % Normal 1.7-12.0 [facility] Comment on above: Performed By: #### C BC #### [facility] [address] [place] [address] Dr. Alysha Machuca NEUT # 3.3 103/ul Normal 1.4-6.5 [facility] Comment on above: Performed By: #### C BC #### [facility] [address] [place] [address] Dr. Alsyha Machuca Neutrophils/100 WBC (Bld) 58.4 % Normal 43.0-75.0 [facility] Comment on above: Performed By: #### C BC #### [facility] [address] [address] [address] Alysha Machuca Platelet mean volume (Bld) [Entitic vol] 9.3 fL Critically low 9.5-13.5 [facility] Comment on above: Performed By: #### C BC #### [facility] [address] [address] [address] Alysha Machuca PLT 186 103/ul Normal 150-450 [facility] Comment on above: Performed By: #### C BC #### [facility] [address] [address] [address] Alysha Machuca RBC 4.34 106/ul Normal 4.20-5.40 [facility] Comment on above: Performed By: #### C BC #### [facility] [address] [address] [address] Alysha Machuca WBC 5.6 103/ul Normal 4.0-11.0 [facility] Comment on above: Performed By: #### C BC #### [facility] [address] [address] [address] Alysha Machuca FERRITINon 02-20-2023 Ferritin [Mass/Vol] 36.0 ng/mL Normal 8.0-252.0 [facility] Comment on above: Performed By: #### F ERR, B12FOL, FETIBC, VITAD ####[facility] [address] [address]Dr. Alysha Machuca IRON AND TIBCon 02-20-2023 % SATURATION 15.8 % Normal [facility] Comment on above: Performed By: #### F ERR, B12FOL, FETIBC, VITAD ####[facility] [address] [address]Dr. Alysha Machuca Iron [Mass/Vol] 53.0 ug/dL Normal 50.0-170.0 [facility] Comment on above: Performed By: #### F ERR, B12FOL, FETIBC, VITAD ####[facility] [id number] [id number]. Alysha Machuca TIBC DIRECT 335.0 ug/dL Normal 250.0-450.0 [facility] Comment on above: Performed By: #### F ERR, B12FOL, FETIBC, VITAD ####[facility] [address] [place], [place] [address]TbDr. Alysha Machuca MAGNESIUMon 02-20-2023 Magnesium [Mass/Vol] 1.9 mg/dL Normal 1.8-2.4 [facility] Comment on above: Performed By: #### P HOS, CMP, MG #### [facility] [address] [address] [address] Alysha Machuca PHOSPHORUSon 02-20-2023 Phosphate [Mass/Vol] 3.9 mg/dL Normal 2.6-4.7 [facility] Comment on above: Performed By: #### P HOS, CMP, MG #### [facility] [address] [address] [address] Alysha Machuca PROF 14(COMP METB)on 023 Albumin [Mass/Vol] 3.4 g/dL Normal 3.4-5.0 [facility] Comment on above: Performed By: #### P HOS, CMP, MG #### [facility] [address] [address] [address] Alysha Machuca Albumin/Globulin [Mass ratio] 0.9 {ratio} Normal [facility] Comment on above: Performed By: #### P HOS, CMP, MG #### [facility] [address] [address] [address] Alysha Machuca ALP [Catalytic activity/Vol] 123 U/L Critically high 46-116 [facility] Comment on above: Performed By: #### P HOS, CMP, MG #### [facility] [address] [place] [address] Dr. Alysha Machuca ALT [Catalytic activity/Vol] 21 U/L Normal 14-59 [facility] [place] Comment on above: Performed By: #### P HOS, CMP, MG #### [facility] [place] [facility] [address] [place] [address] Dr. Alysha Machuca Anion gap [Moles/Vol] 13.8 mmol/L Normal [facility] [place] Comment on above: Performed By: #### P HOS, CMP, MG #### [facility] [place] [facility] [address] [place] [address] Dr. Alysha Machuca AST [Catalytic activity/Vol] 15 U/L Normal 15-37 [facility] [place] Comment on above: Performed By: #### P HOS, CMP, MG #### [facility] [place] [facility] [address] [place] [address] Dr. Alysha Machuca Bilirubin [Mass/Vol] 0.5 mg/dL Normal 0.2-1.0 [facility] [place] Comment on above: Performed By: #### P HOS, CMP, MG #### [facility] [place] [facility] [address] [place] [address] Dr. Alysha Machuca Calcium [Mass/Vol] 9.6 mg/dL Normal 8.5-10.1 [facility] [place] Comment on above: Performed By: #### P HOS, CMP, MG #### [facility] [place] [facility] [address] [place] [address] Dr. Alysha Machuca Chloride [Moles/Vol] 103 mmol/L Normal 98-107 [facility] [place] Comment on above: Performed By: #### P HOS, CMP, MG #### [facility] [place] [facility] [address] [place] [address] Dr. Alysha Machuca CO2 [Moles/Vol] 25.2 mmol/L Normal 21.0-32.[address] [facility] Comment on above: Performed By: #### P HOS, CMP, MG #### [facility] [place] [facility] [address] [place] [address] Dr. Alysha Machuca Creatinine [Mass/Vol] 0.95 mg/dL Normal 0.55-1.02 [facility] [place] Comment on above: Performed By: #### P HOS, CMP, MG #### [facility] [place] [facility] [address] [place] [address] Dr. Alysha Machuca EGFR-AF GUYANESE >60 Normal >=[address] [facility] Comment on above: Performed By: #### P HOS, CMP, MG #### [facility] [place] [facility] [address] [address] [address] Alysha Machuca EGFR-NON AF GUYANESE 58 mL/min/1.73m2 Critically low >=60 [facility] [place] Comment on above: Performed By: #### P HOS, CMP, MG #### [facility] [place] [facility] [address] [place] [address] Dr. Alysha Machuca Globulin (S) [Mass/Vol] 3.6 g/dL Normal [facility] Comment on above: Performed By: #### P HOS, CMP, MG #### [facility] [place] [facility] [address] [place] [address] Dr. Alysha Machuca Glucose [Mass/Vol] 96 mg/dL Normal 74-106 [facility] Comment on above: Performed By: #### P HOS, CMP, MG #### [facility] [place] [facility] [address] [place] [address] Dr. Alysha Machuca Potassium [Moles/Vol] 4.0 mmol/L Normal 3.5-5.1 [facility] [place] Comment on above: Performed By: #### P HOS, CMP, MG #### [facility] [place] [facility] [address] [place] [address] Dr. Alysha Machuca Protein [Mass/Vol] 7.0 g/dL Normal 6.4-8.2 [facility] [place] Comment on above: Performed By: #### P HOS, CMP, MG #### [facility] [place] [facility] [address] [place] [address] Dr. Alysha Machuca Sodium [Moles/Vol] 138 mmol/L Normal 136-145 [facility] [place] Comment on above: Performed By: #### P HOS, CMP, MG #### [facility] [place] [facility] [address] [address] [address] Alysha Machuca Urea nitrogen [Mass/Vol] 21.0 mg/dL Critically high 7.0-18.0 [facility] [place] Comment on above: Performed By: #### P HOS, CMP, MG #### [facility] [place] [facility] [address] [place] [address] Dr. Alysha Machuca Urea nitrogen/Creatini ne [Mass ratio] 22.1 mg/mg Normal [facility] Comment on above: Performed By: #### P HOS, CMP, MG #### [facility] [place] [facility] [address] [place], [place] [address] Dr. Alysha Machuca VIT B12 AND FOLATEon 023 Cobalamin (Vitamin B12) [Mass/Vol] 652.0 pg/mL Normal 193.0-986.0 [facility] Comment on above: Performed By: #### F ERR, B12FOL, FETIBC, VITAD ####[facility] [place] [address] [address]Dr. Alysha Machuca FOLATE 18.30 ng/mL Normal 8.60-58.90 [facility] Comment on above: Performed By: #### F ERR, B12FOL, FETIBC, VITAD ####[facility] [place] [address] [address]Dr. Alysha Machuca VITAMIN D 25 OHon 02-20-2023 VIT D 25-OH 41.7 ng/mL Normal [facility] Comment on above: Performed By: #### F ERR, B12FOL, FETIBC, VITAD ####[facility] [place] [address] [address]Dr. Alysha Machuca VIT D RANGES SEE BELOW Normal [facility] [place] Comment on above: Result Comment: <20 ng/mL Vit D deficient 20 - <30 ng/mL Vit D insufficient 30 - 100 ng/mL Vit D sufficient >100 ng/mL Potential Toxicity Performed By: #### F ERR, B12FOL, FETIBC, VITAD ####[facility] [place] [address] [address]Dr. Alysha Machuca XR KUB 1 VIEWon 02-20-2023 [...] KYLE CHENEY Date: 2023-02-20 15:57 Normal [facility] [place] Office Visit (Cardiology)on 12-06-2022 Follow-up visit Diagnoses/Problems Assessed Anticoagulated (V58.61) (Z79.01) Hyperlipidemia (272.4) (E78.5) Non-ischemic cardiomyopathy (425.4) (I42.8) Paroxysmal atrial fibrillation (427.31) (I48.0) Class 2 obesity with body mass index (BMI) of 36.0 to 36.9 in adult (278.00,V85.36) (E66.9,Z68.36) Never a smoker Orders Class 2 obesity with body mass index (BMI) of 36.0 to 36.9 in adult Healthy Weight Tips; Status:Complete; Done: [id number] Some eating tips that can help you lose weight.; Status:Complete; Done: 10Tgr8032 Hyperlipidemia Renew: Lovastatin 10 MG Oral Tablet; TAKE 1 TABLET DAILY DIRECTED Paroxysmal atrial fibrillation IO EKG Electrocardiogram- 12 Lead; Status:Complete; Done: 86Dxj1228 SocHx: Never a smoker Tobacco Use Screening; Status:Complete; Done: 83Sxy1245 Patient Instructions Please bring all medicines, vitamins, [...] MG Oral TabletTAKE 1 TABLET Twice daily [place] 3 [place] DIRECTED. Tylenol Arthritis Ext Relief [...] negative for complaint. Vitals Vital Signs Recorded: 08Teu7126 01:27PM Heart Rate43, Apical Jtyvhuiw503, RUE, Sitting Edzjnjygh50, RUE, Sitting Height5 ft 5 in Ukpint221 lb BMI Ggokqosxyq53.94 kg/m2 BSA Calculated2.07 Tobacco Useb) No PHQ-2 [...] Exam Constitutional (more content not included)... Normal [facility] Tobacco Screening.on 023 Adult depression screening assessment No [facility] y 250 DO Work Phone: Fall risk assessment a) No falls within the last year [facility] y 250 DO Work Phone: Tobacco use status CPHS b) No [facility] y 250 DO Work Phone: VC INJ SCL [employer]AK[employer] SUPERVISOR VEINSon 0 11-03-2022 VC INJ SCL [employer]PER[employer] VEINS Patient: MIKY FUENTES Exam Date: 11/03/2022 : 1950 Gender:F Ordering : DR WILLARD SHARMA M.D. Admission #: [id number] Family : Order #: [id number] CLICK HERE TO VIEW EXAM RADIOLOGY REPORT PROCEDURE: VEIN CENTER INJECTION SCLEROSING SOLUTION MULTIPLE VEINS SAME COMPARISON: VC INJ SCL [employer]MON[employer]AK[employer] SUPERVISOR VEINS, 10/27/2022. VC INJ SCL [employer] SUPERVISOR VEINS, 10/16/2022. INDICATIONS: Pain co-occurrent and due [...] Sharma MD on 11/03/2022 at 12:37 Normal [facility] XR KUB 1 VIEWon 11-03-2022 XR [...] by: KYLE CHENEY Date: 2022-11-03 12:52 Normal [facility] VC INJ SCL [employer]D [employer]KEMAK[employer] SUPERVISOR VEINSon 1 VC INJ SCL [employer]AK[employer] SUPERVISOR VEINS Patient: MIKY FUENTES Exam Date: 10/27/2022 : 1950 Gender:F Ordering : DR WILLARD SHARMA M.D. Admission #: [id number] Family : Order #: [id number] CLICK HERE TO VIEW EXAM RADIOLOGY REPORT PROCEDURE: VEIN CENTER INJECTION SCLEROSING SOLUTION MULTIPLE VEINS SAME COMPARISON: VC INJ SCL [employer]AK[employer] SUPERVISOR VEINS, 10/16/2022. VC INJ SCL [employer] SUPERVISOR VEINS, 10/06/2022. INDICATIONS: Pain co-occurrent and due [...] Sharma MD on 10/27/2022 at 11:46 Normal [facility] VC INJ SCL [employer] SUPERVISOR VEINSon 1 12-17-2021 VC INJ SCL [employer] SUPERVISOR VEINS Patient: MIKY FUENTES Exam Date: 10/16/2022 : 1950 Gender:F Ordering : DR WILLARD SHARMA M.D. Admission #: [id number] Family : Order #: [id number] CLICK HERE TO VIEW EXAM RADIOLOGY REPORT PROCEDURE: VEIN CENTER INJECTION SCLEROSING SOLUTION MULTIPLE VEINS SAME COMPARISON: VC INJ SCL [employer]MON[employer]KEMAKING SUPERVISOR VEINS, 10/06/2022. INDICATIONS: Pain co-occurrent and due [...] Cheney M.D. on 10/17/2022 at 08:12 Normal [facility] CREATININEon 10-10-2022 Creatinine [Mass/Vol] 1.11 mg/dL Critically high 0.55-1.02 [facility] Comment on above: Performed By: #### C AIYANA ####[facility] [place] [address] [id number] Machuca EGFR-AF GUYANESE 59 mL/min/1.73m2 Critically low >=60 [facility] Comment on above: Performed By: #### C AIYANA ####[facility] [place] [address] [id number] Machuca EGFR-NON AF GUYANESE 48 mL/min/1.73m2 Critically low >=60 [facility] Comment on above: Performed By: #### C AIYANA ####[facility] [place] [address] [place], [place] [address]FpMaite Machuca VC INJ SCL [employer]AK[employer] SUPERVISOR VEINSon 1 12-07-2021 VC INJ SCL [employer] SUPERVISOR VEINS Patient: MIKY FUENTES Exam Date: 10/06/2022 : 1950 Gender:F Ordering : DR WILLARD SHARMA M.D. Admission #: [id number] Family : Order #: [id number] CLICK HERE TO VIEW EXAM RADIOLOGY REPORT [...] MD on 10/06/2022 at 13:45 Normal [facility] [place] VC CONSULT FOLLOWUPon 2021 VC CONSULT FOLLOWUP Patient: MIKY FUENTES Exam Date: 09/26/2022 : 1950 Gender:F Ordering : DR WILLARD SHARMA M.D. Admission #: [id number] Family : Order #: [id number] CLICK HERE TO VIEW EXAM RADIOLOGY REPORT [...] Cheney M.D. on 09/26/2022 at 15:46 Normal [facility] VC EXT VENOUS RT LIMITEDon 1 11-26-2021 VC EXT VENOUS RT LIMITED Patient: MIKY FUENTES Exam Date: 09/26/2022 : 1950 Gender:F Ordering : DR WILLARD SHARMA M.D. Admission #: [id number] Family : Order #: [id number] CLICK HERE TO VIEW EXAM RADIOLOGY REPORT [...] Cheney M.D. on 09/26/2022 at 15:44 Normal [facility] VC INJ FOAM SCLERO W US MLTI on 09-20-2022 VC INJ FOAM SCLERO W US MLTI Patient: MIKY FUENTES Exam Date: 09/20/2022 : 1950 Gender:F Ordering : DR WILLARD SHARMA M.D. Admission #: [id number] Family : Order #: [id number] CLICK HERE TO VIEW EXAM RADIOLOGY REPORT [...] Kyle Cheney M.D. on 09/20/2022 at 15:43 [facility] CONSULT FOLLOWUPon 2021 VC CONSULT FOLLOWUP Patient: MIKY FUENTES Exam Date: 09/07/2022 : 1950 Gender:F Ordering : DR WILLARD SHARMA M.D. Admission #: [id number] Family : Order #: [id number] CLICK HERE [...] Sharma MD on 09/07/2022 at 13:04 Normal [facility] VC EXT VENOUS LT LIMITEDon 1 11-07-2021 VC EXT VENOUS LT LIMITED Patient: MIKY FUENTES Exam Date: 09/07/2022 : 1950 Gender:F Ordering : DR WILLARD SHARMA M.D. Admission #: [id number] Family : Order #: [id number] CLICK HERE TO VIEW EXAM RADIOLOGY REPORT [...] MD on 09/07/2022 at 11:59 Normal [facility] [place] CBC AUTO DIFFon 09-01-2022 BASO # 0.0 103/ul Normal 0.0-0.1 [facility] Comment on above: Performed By: #### C BC #### [facility] [place] [facility] [address] [place] [address] Dr. Alysha Machuca Basophils/100 WBC (Bld) 0.6 % Normal 0.2-2.0 [facility] Comment on above: Performed By: #### C BC #### [facility] [place] [facility] [address] [place] [address] Dr. Alysha Machuca EO # 0.3 103/ul Normal 0.0-0.7 [facility] Comment on above: Performed By: #### C BC #### [facility] [place] [facility] [address] [place] [address] Dr. Alysha Machuca Eosinophils/100 WBC (Bld) 4.3 % Normal 0.9-7.0 [facility] Comment on above: Performed By: #### C BC #### [facility] [place] [facility] [address] [place] [address] Dr. Alysha Machuca Erythrocyte distribution width (RBC) [Ratio] 14.6 % Normal 11.0-15.0 [facility] Comment on above: Performed By: #### C BC #### [facility] [place] [facility] [address] [place] [address] Dr. Alysha Machuca Hematocrit (Bld) [Volume fraction] 39.7 % Normal 36.0-48.0 [facility] Comment on above: Performed By: #### C BC #### [facility] [place] [facility] [address] [place] [address] Dr. Alysha Machuca Hemoglobin (Bld) [Mass/Vol] 13.1 g/dL Normal 12.0-16.0 [facility] Comment on above: Performed By: #### C BC #### [facility] [place] [facility] [address] [place] [address] Dr. Alysha Machuca IG # 0.01 10e3/ul Normal 0.00-0.03 [facility] Comment on above: Performed By: #### C BC #### [facility] [place] [facility] [address] [place] [address] Dr. Alysha Machuca IG % 0.2 % Normal 0.0-0.5 [facility] Comment on above: Performed By: #### C BC #### [facility] [place] [facility] [address] [place] [address] Dr. Alysha Machuca LYMPH # 1.9 103/ul Normal 1.2-3.8 [facility] Comment on above: Performed By: #### C BC #### [facility] [place] [facility] [address] [place] [address] Dr. Alysha Machuca Lymphocytes/100 WBC (Bld) 29.5 % Normal 20.5-60.0 [facility] Comment on above: Performed By: #### C BC #### [facility] [place] [facility] [address] [place] [address] Dr. Alysha Machuca MANUAL DIFF REQ NO Normal [facility] Comment on above: Performed By: #### C BC #### [facility] [place] [facility] [address] [place] [address] Dr. Alysha Machuca MCH (RBC) [Entitic mass] 29.8 pg Normal 26.7-34.0 [facility] Comment on above: Performed By: #### C BC #### [facility] [place] [facility] [address] [place] [address] Dr. Alysha Machuca MCHC (RBC) [Mass/Vol] 33.0 g/dL Normal 29.9-35.2 [facility] Comment on above: Performed By: #### C BC #### [facility] [place] [facility] [address] [place] [address] Dr. Alysha Machuca MCV (RBC) [Entitic vol] 90.2 fL Normal 81.0-99.0 [facility] Comment on above: Performed By: #### C BC #### [facility] [place] [facility] [address] [place] [address] Dr. Alysha Machuca MONO # 0.5 103/ul Normal 0.3-0.8 [facility] Comment on above: Performed By: #### C BC #### [facility] [place] [facility] [address] [place] [address] Dr. Alysha Machuca Monocytes/100 WBC (Bld) 7.0 % Normal 1.7-12.0 [facility] Comment on above: Performed By: #### C BC #### [facility] [place] [facility] [address] [place] [address] Dr. Alysha Machuca NEUT # 3.8 103/ul Normal 1.4-6.5 [facility] Comment on above: Performed By: #### C BC #### [facility] [place] [facility] [address] [place] [address] Dr. Alysha Machuca Neutrophils/100 WBC (Bld) 58.4 % Normal 43.0-75.0 [facility] Comment on above: Performed By: #### C BC #### [facility] [place] [facility] [address] [place] [address] Dr. Alysha Machuca Platelet mean volume (Bld) [Entitic vol] 9.5 fL Normal 9.5-13.5 [facility] Comment on above: Performed By: #### C BC #### [facility] [place] [facility] [address] [place] [address] Dr. Alysha Machuca PLT 235 103/ul Normal 150-450 [facility] [place] Comment on above: Performed By: #### C BC #### [facility] [place] [facility] [address] [place] [address] Dr. Alysha Machuca RBC 4.40 106/ul Normal 4.20-5.40 [facility] [place] Comment on above: Performed By: #### C BC #### [facility] [place] [facility] [address] [address] [address] Alysha Machuca WBC 6.6 103/ul Normal 4.0-11.0 [facility] Comment on above: Performed By: #### C BC #### [facility] [place] [facility] [address] [address] [address] Alysha Machuca PROF CHEM 8 (BAS METB)on Anion gap [Moles/Vol] 7.7 mmol/L Normal [facility] Comment on above: Performed By: #### B MP ####[facility] [place] [address] [address]DrMaite Machuca Calcium [Mass/Vol] 9.8 mg/dL Normal 8.5-10.1 [facility] Comment on above: Performed By: #### B MP ####[facility] [place] [address] [address]DrMaite Machuca Chloride [Moles/Vol] 104 mmol/L Normal 98-107 [facility] [place] Comment on above: Performed By: #### B MP ####[facility] [place] [address] [address]DrMaite Machuca CO2 [Moles/Vol] 29.2 mmol/L Normal 21.0-32.[address] [facility] Comment on above: Performed By: #### B MP ####[facility] [place] [address] [address]DrMaite Machuca Creatinine [Mass/Vol] 1.05 mg/dL Critically high 0.55-1.02 [facility] Comment on above: Performed By: #### B MP ####[facility] [place] [address] [address]DrMaite Machuca EGFR-AF GUYANESE >60 Normal >=[address] [facility] Comment on above: Performed By: #### B MP ####[facility] [place] [address] [address]Dr. Alysha Machuca EGFR-NON AF GUYANESE 52 mL/min/1.73m2 Critically low >=60 [facility] [place] Comment on above: Performed By: #### B MP ####[facility] [place] [address] [address]Dr. Alysha Machuca Glucose [Mass/Vol] 107 mg/dL Critically high 74-106 [facility] [place] Comment on above: Performed By: #### B MP ####[facility] [place] [address] [address]Dr. Alysha Sven Potassium [Moles/Vol] 3.9 mmol/L Normal 3.5-5.1 [facility] [place] Comment on above: Performed By: #### B MP ####[facility] [place] [address] [place] [address]Dr. Alysha Sven Sodium [Moles/Vol] 137 mmol/L Normal 136-145 [facility] [place] Comment on above: Performed By: #### B MP ####[facility] [place] [address] [place] [address]Dr. Alysha Sven Urea nitrogen [Mass/Vol] 16.0 mg/dL Normal 7.0-18.0 [facility] Comment on above: Performed By: #### B MP ####[facility] [place] [address] [place] [address]Dr. Alysha Sven Urea nitrogen/Creatini ne [Mass ratio] 15.2 mg/mg Normal [facility] Comment on above: Performed By: #### B MP ####[facility] [place] [address] [address]Dr. Alysha Sven VC INJ FOAM SCLERO W US MLTI on 08-31-2022 VC INJ FOAM SCLERO W US MLTI Patient: MIKY FUENTES Exam Date: 08/31/2022 : 1950 Gender:F Ordering : DR WILLARD SHARMA M.D. Admission #: [id number] Family : Order #: [id number] CLICK HERE TO VIEW EXAM RADIOLOGY REPORT [...] compressi (more content not included)... Normal [facility] [place] VC CONSULT FOLLOWUPon 2021 VC CONSULT FOLLOWUP Patient: MIKY FUENTES Exam Date: 08/22/2022 : 1950 Gender:F Ordering : DR WILLARD SHARMA M.D. Admission #: [id number] Family : Order #: [id number] CLICK HERE TO VIEW EXAM RADIOLOGY REPORT [...] Sharma MD on 08/22/2022 at 10:45 Normal [facility] VC EXT VENOUS RT LIMITEDon 1 VC EXT VENOUS RT LIMITED Patient: MIKY FUENTES Exam Date: 08/22/2022 : 1950 Gender:F Ordering : DR WILLARD SHARMA M.D. Admission #: [id number] Family : Order #: [id number] CLICK HERE TO VIEW EXAM RADIOLOGY REPORT [...] Willard Sharma MD on 08/22/2022 at 10:21 [facility] VC INJ FOAM SCLERO W US MLTI on 08-17-2022 VC INJ FOAM SCLERO W US MLTI Patient: MIKY FUENTES Exam Date: 08/17/2022 : 1950 Gender:F Ordering : DR WILLARD SHARMA M.D. Admission #: [id number] Family : Order #: [id number] CLICK HERE TO VIEW EXAM RADIOLOGY REPORT [...] take (more content not included)... Normal [facility] [place] VC CONSULT FOLLOWUPon 2021 VC CONSULT FOLLOWUP Patient: MIKY FUENTES Exam Date: 08/07/2022 : 1950 Gender:F Ordering : DR WILLARD SHARMA M.D. Admission #: [id number] Family : Order #: [id number] CLICK HERE TO VIEW EXAM RADIOLOGY REPORT [...] Sharma MD on 08/07/2022 at 13:31 Normal [facility] VC EXT VENOUS LT LIMITEDon 1 VC EXT VENOUS LT LIMITED Patient: MIKY FUENTES Exam Date: 08/07/2022 : 1950 Gender:F Ordering : DR WILLARD SHARMA M.D. Admission #: [id number] Family : Order #: [id number] CLICK HERE TO VIEW EXAM RADIOLOGY REPORT [...] Sharma MD on 08/07/2022 at 12:01 Normal [facility] VC INJ FOAM SCLERO W US MLTI on 08-01-2022 VC INJ FOAM SCLERO W US MLTI Patient: MIKY FUENTES Exam Date: 08/01/2022 : 1950 Gender:F Ordering : DR WILLARD SHARMA M.D. Admission #: [id number] Family : Order #: [id number] CLICK HERE TO VIEW EXAM RADIOLOGY REPORT [...] compr (more content not included)... Normal [facility] [place] VC CONSULT FOLLOWUPon 2021 VC CONSULT FOLLOWUP Patient: MIKY FUENTES Exam Date: 07/17/2022 : 1950 Gender:F Ordering : DR WILLARD SHARMA M.D. Admission #: [id number] Family : Order #: [id number] CLICK HERE TO VIEW EXAM RADIOLOGY REPORT [...] Cheney M.D. on 07/17/2022 at 12:18 Normal [facility] VC EXT VENOUS RT LIMITEDon 0 07-17-2022 VC EXT VENOUS RT LIMITED Patient: MIKY FUENTES Exam Date: 07/17/2022 : 1950 Gender:F Ordering : DR WILLARD SHARMA M.D. Admission #: [id number] Family : Order #: [id number] CLICK HERE TO VIEW EXAM RADIOLOGY REPORT [...] Kyle Cheney M.D. on 07/17/2022 at 12:14 [facility] VC INJ FOAM SCLERO W US MLTI on 07-12-2022 VC INJ FOAM SCLERO W US MLTI Patient: MIKY FUENTES Exam Date: 07/12/2022 : 1950 Gender:F Ordering : DR WILLARD SHARMA M.D. Admission #: [id number] Family : Order #: [id number] CLICK HERE TO VIEW EXAM RADIOLOGY REPORT [...] da (more content not included)... Normal [facility] [place] VC CONSULT FOLLOWUPon 2021 VC CONSULT FOLLOWUP Patient: MIKY FUENTES Exam Date: 06/30/2022 : 1950 Gender:F Ordering : DR WILLARD SHARMA M.D. Admission #: [id number] Family : Order #: [id number] CLICK HERE TO VIEW EXAM RADIOLOGY REPORT [...] Sharma MD on 06/30/2022 at 13:21 Normal [facility] VC EXT VENOUS LT LIMITEDon 0 06-30-2022 VC EXT VENOUS LT LIMITED Patient: MIKY FUENTES Exam Date: 06/30/2022 : 1950 Gender:F Ordering : DR WILLARD SHARMA M.D. Admission #: [id number] Family : Order #: [id number] CLICK HERE TO VIEW EXAM RADIOLOGY REPORT [...] Sharma MD on 06/30/2022 at 13:02 Normal [facility] ALBUMIN, RANDOM URINE W/CREA PROon 06-26-2022 ALBUMIN, URINE 12.7 mg/dL Normal See Note: [facility] Comment on above: Result Comment: Refe rence Range: Reference Range Not established Performed By: #### 7 600, 496, 46295, 6517 #### [facility] [address], [address] [place] [address] Correctional Program Officer: Marek Subramanian MD ALBUMIN/CREATININ E RATIO, [...] category. Performed By: #### 7 600, 496, 44638, 6517 #### [facility] [place] [address] Correctional Program Officer: Marek Subramanian MD Creatinine (U) [Mass/Vol] 205 mg/dL Normal 20-275 [facility] Comment on above: Performed By: #### 7 600, 496, 24367, 6517 #### [facility] [place] [address] Correctional Program Officer: Marek Subramanian MD [facility] 06-26-2022 Albumin [Mass/Vol] 3.9 g/dL Normal 3.6-5.1 [facility] Comment on above: Performed By: #### 7 600, 496, 99875, 6517 #### [facility] [place] [address] Correctional Program Officer: Marek Subramanian MD Albumin/Globulin [Mass ratio] 1.4 {ratio} Normal 1.0-2.5 [facility] Comment on above: Performed By: #### 7 600, 496, 90276, 6517 #### [facility] [place] [address] Correctional Program Officer: Marek Subramanian MD ALP [Catalytic activity/Vol] 106 U/L Normal 37-153 [facility] Comment on above: Performed By: #### 7 600, 496, 13280, 6517 #### [facility] [place] [address] Correctional Program Officer: Marek Subramanian MD ALT [Catalytic activity/Vol] 10 U/L Normal 6-29 [facility] Comment on above: Performed By: #### 7 600, 496, 09405, 6517 #### [facility] of [place] [address] Correctional Program Officer: Marek Subramanian MD AST [Catalytic activity/Vol] 13 U/L Normal 10-35 [facility] Comment on above: Performed By: #### 7 600, 496, 73701, 6517 #### [facility] of [place] [address] Correctional Program Officer: Marek Subramanian MD Bilirubin [Mass/Vol] 0.8 mg/dL Normal 0.2-1.2 [facility] Comment on above: Performed By: #### 7 600, 496, 29881, 6517 #### [facility] of [place] [address] Correctional Program Officer: Marek Subramanian MD BUN/CREATININE RATIO NOT APPLICABLE Normal 6-22 [facility] Comment on above: Performed By: #### 7 600, 496, 66633, 6517 #### [facility] [place] [address] Correctional Program Officer: Marek Subramanian MD Calcium [Mass/Vol] 9.9 mg/dL Normal 8.6-10.4 [facility] Comment on above: Performed By: #### 7 600, 496, 05900, 6517 #### [facility] of [place] [address] Correctional Program Officer: Marek Subramanian MD Chloride [Moles/Vol] 109 mmol/L Normal 98-110 [facility] Comment on above: Performed By: #### 7 600, 496, 65518, 6517 #### [facility] of [place] [address] Correctional Program Officer: Marek Subramanian MD CO2 [Moles/Vol] 24 mmol/L Normal 20-32 [facility] Comment on above: Performed By: #### 7 600, 496, 41550, 6517 #### [facility] [address], [address] [place] [address] Correctional Program Officer: Marek Subramanian MD Creatinine [Mass/Vol] 0.88 mg/dL Normal 0.60-1.00 [facility] Comment on above: Performed By: #### 7 600, 496, 92542, 6517 #### [facility] [address], [address] [place] [address] Correctional Program Officer: Marek Subramanian MD GFR/1.73 sq M.predicted among non-blacks MDRD (S/P/Bld) [Vol rate/Area] 70 mL/min/{1.73_m2} Normal > OR = 60 [facility] Comment on above: Result Comment: The eGFR is based on the CKD-EPI 2020 equation. To calculate the new eGFR from a previous Creatinine or Cystatin C result, go to https://www.kidney.org/professionals/ kdoqi/gfr%5Fcalculator Performed By: #### 7 600, 496, 38500, 6517 #### [facility] [place] [address] Correctional Program Officer: Marek Subramanian MD Globulin (S) [Mass/Vol] 2.7 g/dL Normal 1.9-3.7 [facility] Comment on above: Performed By: #### 7 600, 496, 34248, 6517 #### [facility] [place] [address] Correctional Program Officer: Marek Subramanian MD Glucose [Mass/Vol] 91 mg/dL Normal 65-99 [facility] Comment on above: Result Comment: Fasting reference interval Performed By: #### 7 600, 496, 13744, 6517 #### [facility] [place] [address] Correctional Program Officer: Marek Subramanian MD Potassium [Moles/Vol] 4.0 mmol/L Normal 3.5-5.3 [facility] Comment on above: Performed By: #### 7 600, 496, 89326, 6517 #### [facility] of [address], [address] [place] [address] Correctional Program Officer: Marek Subarmanian MD Protein [Mass/Vol] 6.6 g/dL Normal 6.1-8.1 [facility] Comment on above: Performed By: #### 7 600, 496, 50595, 6517 #### [facility] [address], [address] [place] [address] Correctional Program Officer: Marek Subramanian MD Sodium [Moles/Vol] 143 mmol/L Normal 135-146 [facility] Comment on above: Performed By: #### 7 600, 496, 10641, 6517 #### [facility] [address], [address] [place] [address] Correctional Program Officer: Marek Subramanian MD Urea nitrogen [Mass/Vol] 15 mg/dL Normal 7-25 [facility] Comment on above: Performed By: #### 7 600, 496, 77607, 6517 #### [facility] [address], [address] [place] [address] Correctional Program Officer: Marek Subramanian MD HEMOGLOBIN A1con 06-26-2022 [...] Diabetes(ADA). Performed By: #### 7 600, 496, 31888, 6517 #### [facility] [address], [address] [place] [address] Correctional Program Officer: Marek Subramanian MD LIPID PANEL, STANDARDon 05-30 Cholesterol [Mass/Vol] 171 mg/dL Normal <200 [facility] Comment on above: Order Comment: FASTI NG:YES FASTING: YES Performed By: #### 7 600, 496, 86702, 6517 #### [facility] [address], [address] [place] [address] Correctional Program Officer: Marek Subramanian MD Cholesterol in HDL [Mass/Vol] 60 mg/dL Normal > OR = 50 [facility] Comment on above: Order Comment: FASTI NG:YES FASTING: YES Performed By: #### 7 600, 496, 42824, 6517 #### [facility] [address], [address] [place] [address] Correctional Program Officer: Marek Subramanian MD Cholesterol in LDL [...] LDL-C. Nikita SS et al. LEWIS. 2013;310(19): 3215-3668 (http://education.eLifestyles.[employer]/faq/MAX648) Performed By: #### 7 600, 496, 84140, 6517 #### [facility] [address], [address] [place] [address] Correctional Program Officer: Marek Subramanian MD Cholesterol.total /Cholesterol in HDL [Mass ratio] 2.9 {ratio} Normal <5.0 [facility] Comment on above: Order Comment: FASTI NG:YES FASTING: YES Performed By: #### 7 600, 496, 17743, 6517 #### [facility] [address], [address] [place] [address] Correctional Program Officer: Marek Subramanian MD NON HDL CHOLESTEROL 111 mg/dL (calc) Normal <130 [facility] Comment on above: Order Comment: FASTI NG:YES FASTING: YES Result Comment: For patients with diabetes plus 1 major ASCVD risk factor, treating to a non-HDL-C goal of <100 mg/dL (LDL-C of <70 mg/dL) is considered a therapeutic option. Performed By: #### 7 600, 496, 98374, 6517 #### [facility] [address] [place] [address], [address] [place] [id number] Correctional Program Officer: Marek Subramanian MD Triglyceride [Mass/Vol] 95 mg/dL Normal <150 [facility] Comment on above: Order Comment: FASTI NG:YES FASTING: YES Performed By: #### 7 600, 496, 31129, 6517 #### [facility] [address] [place] [address], [address] Correctional Program Officer: Marek Subramanian MD VC INJ FOAM SCLERO W US MLTI on 06-26-2022 VC INJ FOAM SCLERO W US MLTI Patient: MIKY FUENTES Exam Date: 06/26/2022 : 1950 Gender:F Ordering : DR WILLARD SHARMA M.D. Admission #: [id number] Family : Order #: [id number] CLICK HERE TO VIEW EXAM RADIOLOGY REPORT [...] vein medial distal lower leg/ankle. 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 Normal [facility] VC CONSULT FOLLOWUPon 2021 VC CONSULT FOLLOWUP Patient: MIKY FUENTES Exam Date: 06/19/2022 : 1950 Gender:F Ordering : DR WILLARD SHARMA M.D. Admission #: [id number] Family : Order #: [id number] CLICK HERE TO VIEW EXAM RADIOLOGY REPORT [...] Cheney M.D. on 06/19/2022 at 12:14 Normal [facility] VC EXT VENOUS RT LIMITEDon 0 06-19-2022 VC EXT VENOUS RT LIMITED Patient: MIKY FUENTES Exam Date: 06/19/2022 : 1950 Gender:F Ordering : DR WILLARD SHARMA M.D. Admission #: [id number] Family : Order #: [id number] CLICK HERE TO VIEW EXAM RADIOLOGY REPORT [...] Cheney M.D. on 06/19/2022 at 12:11 Normal [facility] VC INJ FOAM SCLERO W US MLTI on 06-13-2022 VC INJ FOAM SCLERO W US MLTI Patient: MIKY FUENTES Exam Date: 06/13/2022 : 1950 Gender:F Ordering : DR WILLARD SHARMA M.D. Admission #: [id number] Family : Order #: [id number] CLICK HERE TO VIEW EXAM CORRECTION made [...] Kyle Cheney M.D. on 06/19/2022 at 12:17 [facility] VC CONSULT FOLLOWUPon 2021 VC CONSULT FOLLOWUP Patient: MIKY FUENTES Exam Date: 05/31/2022 : 1950 Gender:F Ordering : DR WILLARD SHARMA M.D. Admission #: [id number] Family : Order #: [id number] CLICK HERE TO VIEW EXAM RADIOLOGY REPORT [...] Cheney M.D. on 05/31/2022 at 12:18 Normal [facility] VC EXT VENOUS LT LIMITEDon 0 05-31-2022 VC EXT VENOUS LT LIMITED Patient: MIKY FUENTES Exam Date: 05/31/2022 : 1950 Gender:F Ordering : DR WILLARD SHARMA M.D. Admission #: [id number] Family : Order #: [id number] CLICK HERE TO VIEW EXAM RADIOLOGY REPORT [...] Cheney M.D. on 05/31/2022 at 12:13 Normal [facility] CT ABD/PELVIS WO CONon 05-26 CT [...] by: SANTHOSH NICK Date: 2022-05-26 16:43 Normal [facility] VC ENDOVENOUS ABL 1ST V LTon 05-23-2022 VC ENDOVENOUS ABL 1ST V LT Patient: MIKY FUENTES Exam Date: 05/23/2022 : 1950 Gender:F Ordering : DR WILLARD SHARMA M.D. Admission #: [id number] Family : Order #: [id number] CLICK HERE TO VIEW EXAM RADIOLOGY REPORT [...] on 05/23/2022 at 12:31 Approved by: Kyle Cheeny M.D. on 05/23/2022 at 12:34 [facility] US KIDNEYSon 05-05-2022 US KIDNEYS EXAMINATION: US [...] WILLARD SHARMA Date: 2022-05-05 13:29 Normal [facility] XR KUB 1 VIEWon 05-05-2022 XR KUB [...] KYLE CHENEY Date: 2022-05-05 15:54 Normal [facility] MAMM SCREEN 3D TANMAY CADon 05-04-2022 MG MAMM SCREEN 3D TANMAY CAD Patient: MIKY FUENTES Exam Date: 05/04/2022 : 1950 Gender:F Ordering : DR CONNOR ANAYA Admission #: [id number] Family : Order #: [id number] CLICK HERE TO VIEW EXAM RADIOLOGY REPORT [...] colon cancer at age 60. LOCATION: [facility] BREAST COMPOSITION: Scattered areas fibroglandular density. FINDINGS: [...] Cheney M.D. on 05/05/2022 at 14:21 Normal [facility] VC CONSULT FOLLOWUPon 2021 VC CONSULT FOLLOWUP Patient: MIKY FUENTES Exam Date: 05/04/2022 : 1950 Gender:F Ordering : DR WILLARD SHARMA M.D. Admission #: [id number] Family : Order #: [id number] CLICK HERE TO VIEW EXAM RADIOLOGY REPORT [...] M.D. on 05/04/2022 at 11:43 Normal [facility] VC EXT VENOUS RT LIMITEDon 0 05-04-2022 VC EXT VENOUS RT LIMITED Patient: MIKY FUENTES Exam Date: 05/04/2022 : 1950 Gender:F Ordering : DR WILLARD SHARMA M.D. Admission #: [id number] Family : Order #: [id number] CLICK HERE TO VIEW EXAM RADIOLOGY REPORT [...] M.D. on 05/04/2022 at 11:17 Normal [facility] CULTURE URINEon 05-03-2022 CULTURE URINE Culture Observations : LIGHT GROWTH OF MIXED GENITAL LUDWIN. NO POTENTIAL PATHOGENS SEEN. Normal [facility] Comment on above: Performed By: #### U RCX ####[facility] [address] [place], [place] [address]SsMaite Alysha Machuca UA RANDOMon 05-03-2022 Bilirubin Ql (U) Negative Normal NEGATIVE [facility] Comment on above: Performed By: #### U A #### [facility] [address] [place] [address] Dr. Alysha Machuca Clarity (U) TURBID Abnormal CLEAR [facility] Comment on above: Performed By: #### U A #### [facility] [address] [place] [address] Dr. Alysha Machuca Color (U) RED Abnormal YELLOW [facility] Comment on above: Result Comment: Prev iously reported as: YELLOW On 05/03/2022 17:30 By CV2 Performed By: #### U A #### [facility] [address] [place] [address] Dr. Alysha Machuca Glucose Ql (U) Negative Normal NEGATIVE [facility] Comment on above: Performed By: #### U A #### [facility] [address] [place] [address] Dr. Alysha Machuca Hemoglobin Ql (U) LARGE Abnormal NEGATIVE [facility] Comment on above: Performed By: #### U A #### [facility] [address] [place] [address] Dr. Alysha Machuca Ketones Ql (U) Negative Normal NEGATIVE [facility] Comment on above: Performed By: #### U A #### [facility] [address] [place] [address] Dr. Alysha Machuca LEUKOCYTES Negative Normal NEGATIVE [facility] Comment on above: Performed By: #### U A #### [facility] [address] [place] [address] Dr. Alysha Machuca Nitrite Ql (U) Negative Normal NEGATIVE [facility] Comment on above: Performed By: #### U A #### [facility] [address] [place] [address] Dr. Alysha Machuca pH (U) 6.0 [pH] Normal 5-9 [facility] Comment on above: Performed By: #### U A #### [facility] [address] [place] [address] Dr. Alysha Machuca SPEC GRAVITY 1.025 Normal 1.005-<=1.025 [facility] Comment on above: Performed By: #### U A #### [facility] [address] [place] [address] Dr. Alysha Machuca UA PROTEIN 100 mg/dl Abnormal NEGATIVE/ TRACE [facility] Comment on above: Performed By: #### U A #### [facility] [address] [place] [address] [address] Alysha Machuca Urobilinogen Qn (U) 0.2 {Luis'U}/dL Normal 0.2 - 1.0 [facility] Comment on above: Performed By: #### U A #### [facility] [address] [place] [address] Dr. Alysha Machuca VC ENDOVENOUS ABL 1ST V RTon 04-26-2022 VC ENDOVENOUS ABL 1ST V RT Patient: MIKY FUENTES Exam Date: 04/26/2022 : 1950 Gender:F Ordering : DR WILLARD SHARMA M.D. Admission #: [id number] Family : Order #: [id number] CLICK HERE TO VIEW EXAM RADIOLOGY REPORT PROCEDURE: VEIN CENTER ENDOVENOUS ABLATION FIRST VEIN RIGHT small saphenous vein COMPARISON: VC ENDOVENOUS ABL 1ST V RT, 03/03/2022. INDICATIONS: Pain co-occurrent and due to varicose veins of bilateral legs I83.813 OPERATIVE REPORT: The risks and benefits of the procedure had been previously discussed, and were rediscussed at length. Informed written consent was obtained by ga and Braxton Herrera assisted. Time out procedure [...] Sharma MD on 04/26/2022 at 10:58 Normal [facility] VC CONSULT FOLLOWUPon 2021 VC CONSULT FOLLOWUP Patient: MIKY FUENTES Exam Date: 04/13/2022 : 1950 Gender:F Ordering : DR WILLARD SHARMA M.D. Admission #: [id number] Family : Order #: [id number] CLICK HERE TO VIEW EXAM RADIOLOGY REPORT [...] Cheney M.D. on 04/13/2022 at 10:59 Normal [facility] VC EXT VENOUS LT LIMITEDon 0 04-13-2022 VC EXT VENOUS LT LIMITED Patient: MIKY FUENTES Exam Date: 04/13/2022 : 1950 Gender:F Ordering : DR WILLARD SHARMA M.D. Admission #: [id number] Family : Order #: [id number] CLICK HERE TO VIEW EXAM RADIOLOGY REPORT [...] M.D. on 04/13/2022 at 10:56 Normal [facility] Office Visit (Cardiology)on 03-22-2022 Follow-up visit Diagnoses/Problems Assessed Non-ischemic cardiomyopathy (425.4) (I42.8) Hyperlipidemia (272.4) (E78.5) Anticoagulated (V58.61) (Z79.01) Paroxysmal atrial fibrillation (427.31) (I48.0) Morbid obesity with BMI of 40.0-44.9, adult (278.01,V85.41) (E66.01,Z68.41) Never a smoker Orders Hyperlipidemia Renew: Lovastatin 10 MG Oral Tablet; TAKE 1 TABLET DAILY DIRECTED Morbid obesity with BMI of 40.0-44.9, adult Healthy Weight Tips; Status:Complete - Retrospective Authorization; Done: [id number] Paroxysmal atrial fibrillation IO EKG Electrocardiogram- 12 Lead; Status:Complete; Done: [id number] SocHx: Never a smoker Tobacco Use Screening; Status:Complete; Done: [id number] Patient Instructions By signing my name below, [...] failure. With guideline directed therapy in the mormon of maintenance of sinus rhythm her symptoms [...] Oral TabletTake 1 tablet twice a day [place] 3 [place] DIRECTED. Tylenol Arthritis Ext Relief [...] negative for complaint. Vitals Vital Signs Recorded: [id number] 02:06PM Heart Rate47, Apical Hfsrlppa246, RUE, Sitting Jxskjzxew40, RUE, Sitting Height5 ft 5 in Sdkjuu250 lb 6.4 oz BMI Qynpuoodxg34.17 kg/m2 BSA Calculated2.19 Tobacco Useb) No PHQ-2 [...] no murmurs (more content not included)... Normal [facility] Tobacco Screening.on 022 Adult depression screening assessment No -[facility] [facility] [employer] DO Work Phone: Fall risk assessment a) No falls within the last year -[facility] DO Work Phone: Tobacco use status CP b) No -[facility] DO Work Phone: VC ENDOVENOUS ABL PERFORATIN G LTon 03-22-2022 VC ENDOVENOUS ABL PERFORATING LT Patient: MIKY FUENTES Exam Date: 03/22/2022 : 1950 Gender:F Ordering : DR WILLARD SHARMA M.D. Admission #: [id number] Family : Order #: [id number] CLICK HERE TO VIEW EXAM RADIOLOGY REPORT PROCEDURE: VEIN CENTER ENDOVENOUS ABLATION VEIN LEFT LEG COMPARISON: None. 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 Normal [facility] KAL SCREEN, IFA, W/REFL TITE R/PATTERN (REFL)on [...] indicated. For additional information, please refer to http://education.eLifestyles.Everimaging Technology/faq/CBU432 (This link is being provided for informational/ educational purposes only.) Performed By: #### 8 09, 8268, 4420, 50943, %[id number] #### [facility] [address], [address] [place], [place] [id number] Correctional Program Officer: Marek Subramanian MD ANTINUCLEAR ANTIBODIES TITER AND PATTERNon 10-01-2021 KAL PATTERN Nuclear, [employer] Abnormal [facility] Comment on above: Result Comment: Cent romere pattern is associated with limited cutaneous systemic sclerosis, CREST (Calcinosis, Raynaud's, Esophageal dysmotility, Sclerodactyly, Telangiectasia), primary biliary cholangitis (PBC), and other autoimmune diseases. AC-3: Centrome[employer] International Consensus on KAL Patterns (https://doi.org/10.1515/iwdl-9357-1649) Performed By: #### 8 09, 8268, 4420, 45254, %05494 #### [facility] [address], [address] [place] [address] Correctional Program Officer: Marek Subramanian MD KAL PATTERN Nuclear, Homogeneous Abnormal [facility] Comment on above: Result Comment: Homo geneous pattern is associated with systemic lupus erythematosus (SLE), drug-induced lupus and juvenile idiopathic arthritis. AC-1: Homogeneous International Consensus on KAL Patterns (https://doi.org/10.1515/qwxs-1026-2662) Performed By: #### 8 09, 8268, 4420, 26293, %99003 #### [facility] [address], [address] [place] [address] Correctional Program Officer: Marek Subramanian MD KAL TITER > OR = 1:1280 Abnormal [facility] Comment on above: Result Comment: Refe rence Range <1:40 Negative 1:40-1:80 Low Antibody Level >1:80 Elevated Antibody Level Performed By: #### 8 09, 8268, 4420, 60224, %51096 #### [facility] [place] [address] Correctional Program Officer: Marek Subramanian MD KAL TITER 1:80 High [facility] Comment on above: Result Comment: A lo w level KAL titer may be present in pre- clinical autoimmune diseases and normal individuals. Reference Range <1:40 Negative 1:40-1:80 Low Antibody Level >1:80 Elevated Antibody Level Performed By: #### 8 09, 8268, 4420, 22058, %[id number] #### [facility] [place] [address] Correctional Program Officer: Marek Subramanian MD C-REACTIVE PROTEINon 021 CRP [Mass/Vol] 13.4 mg/L High <8.0 [facility] Comment on above: Performed By: #### 8 09, 8268, 4420, 94046, %[id number] #### [facility] [place] [address] Correctional Program Officer: Marek Subramanian MD RHEUMATOID ARTHRITIS DIAGNOS TIC PANEL 1on 10-01-2021 CYCLIC CITRULLINATED PEPTIDE (CCP) AB (IGG) <16 Normal [facility] Comment on above: Result Comment: Refe rence Range Negative: <20 Weak Positive: 20-39 Moderate Positive: 40-59 Strong Positive: >59 Performed By: #### 8 09, 8268, 4420, 52721, %06349 #### [facility] [place] [address] Correctional Program Officer: Marek Subramanian MD INTERPRETATION Normal [facility] Comment on above: Result Comment: These serologic results may be found in 10-20% of patients with polyarthritis that is clinically and radiologically indistinguishable from RA. Performed By: #### 8 09, 8268, 4420, 92246, %[id number] #### [facility] [place] [address] Correctional Program Officer: Marek Subramanian MD RHEUMATOID FACTOR <14 Normal <14 [facility] Comment on above: Performed By: #### 8 09, 8268, 4420, 83887, %93082 #### [facility] [place] [address] Correctional Program Officer: Marek Subramanian MD SED RATE BY MODIFIED SILAS RENon 10-01-2021 SED RATE BY MODIFIED WESTERGREN 51 mm/h High < OR = 30 [facility] Comment on above: Performed By: #### 8 09, 8268, 4420, 77870, %[id number] #### [facility] [address] [facility], [address] [place] [address] Correctional Program Officer: Marek Subramanian MD Tobacco Screening.on 021 Fall risk assessment a) No falls within the last year [facility] [employer] 600 DO Work Phone: Tobacco use status [facility] b) No -[facility] [employer] 600 DO Work Phone: Vital Signs Date Time Vital Sign Value Performing Clinician Facility 07-09-2025 10:02-0400 Body height 160 cm [employer] DO [facility] 07-09-2025 10:02-0400 Body mass index (BMI) [Ratio] 33.35 kg/m2 [employer] DO [facility] 07-09-2025 10:02-0400 Body temperature 97.5 [degF] Connor Squla DO [facility] 07-09-2025 10:02-0400 Body weight 85.37 kg Connor ERPLYng DO [facility] 07-09-2025 10:02-0400 Diastolic blood pressure 64 mm[Hg] Connor Furlong DO [facility] 07-09-2025 10:02-0400 Heart rate 69 /min Connor ERPLYng DO Work Phone: [employer] 07-09-2025 10:02-0400 Respiratory rate 18 /min Connor ERPLYng DO [facility] 07-09-2025 10:02-0400 SaO2% (BldA) [Mass fraction] 99 % Connor ERPLYng DO [facility] 07-09-2025 10:02-0400 Systolic blood pressure 110 mm[Hg] Connor Furlong DO Work Phone: [facility] [employer] [facility] 05-26-2025 10:59-0400 Body height 170.2 cm Jr. Stepanic DO Work Phone: [facility] 05-26-2025 10:59-0400 Body mass index (BMI) [Ratio] 32.73 kg/m2 Jr. Stepanic DO Work Phone: [facility] 05-26-2025 10:59-0400 Body weight 94.8 kg Jr. Stepanic DO Work Phone: [facility] 04-06-2025 11:48-0400 Body height 160 cm Connor Furlong DO Work Phone: [facility] 04-06-2025 11:48-0400 Body mass index (BMI) [Ratio] 35.26 kg/m2 Connor Furlong DO Work Phone: [facility] 04-06-2025 11:48-0400 Body temperature 98.6 [degF] Connor Furlong DO Work Phone: [facility] 04-06-2025 11:48-0400 Body weight 90.27 kg Connor Furlong DO Work Phone: [facility] 04-06-2025 11:48-0400 Diastolic blood pressure 56 mm[Hg] Connor Furlong DO Work Phone: [facility] 04-06-2025 11:48-0400 Heart rate 58 /min Connor Furlong DO Work Phone: [facility] 04-06-2025 11:48-0400 Respiratory rate 20 /min Connor Furlong DO Work Phone: [facility] 04-06-2025 11:48-0400 SaO2% (BldA) [Mass fraction] 97 % Connor Furlong DO Work Phone: [facility] 04-06-2025 11:48-0400 Systolic blood pressure 104 mm[Hg] Connor Furlong DO Work Phone: [facility] [employer] [facility] 01-19-2025 10:54-0400 Body height 160 cm Connor Furlong DO Work Phone: [facility] [employer] [facility] 01-19-2025 10:54-0400 Body mass index (BMI) [Ratio] 35.4 kg/m2 Connor Furlong DO Work Phone: [facility] [employer] [facility] 01-19-2025 10:54-0400 Body temperature 98.2 [degF] Connor Furlong DO Work Phone: [facility] [employer] [facility] 01-19-2025 10:54-0400 Body weight 90.63 kg Connor Furlong DO Work Phone: [facility] [employer] [facility] 01-19-2025 10:54-0400 Diastolic blood pressure 60 mm[Hg] Connor Furlong DO Work Phone: [facility] [employer] [facility] 01-19-2025 10:54-0400 Heart rate 60 /min Connor Furlong DO Work Phone: [facility] [employer] [facility] 01-19-2025 10:54-0400 Respiratory rate 18 /min Connor Furlong DO Work Phone: [facility] [employer] [facility] 01-19-2025 10:54-0400 SaO2% (BldA) [Mass fraction] 100 % Connor Furlong DO Work Phone: [facility] [employer] [facility] 01-19-2025 10:54-0400 Systolic blood pressure 118 mm[Hg] Connor Furlong DO Work Phone: [facility] [employer] [facility] 11-25-2024 15:25-0500 Body height 160 cm Connor Furlong DO Work Phone: [facility] [employer] [facility] 11-25-2024 15:25-0500 Body mass index (BMI) [Ratio] 37.13 kg/m2 Connor Furlong DO Work Phone: [facility] 11-25-2024 15:25-0500 Body weight 95.07 kg Connor Furlong DO Work Phone: [facility] 11-25-2024 15:25-0500 Diastolic blood pressure 56 mm[Hg] Connor Furlong DO Work Phone: [facility] 11-25-2024 15:25-0500 Systolic blood pressure 110 mm[Hg] Connor Furlong DO Work Phone: [facility] 11-04-2024 11:24-0500 Body height 165.1 cm Jr. Stepanic DO Work Phone: [facility] 11-04-2024 11:24-0500 Body mass index (BMI) [Ratio] 34.81 kg/m2 Jr. Stepanic DO Work Phone: [facility] 11-04-2024 11:24-0500 Body weight 94.89 kg Jr. Stepanic DO Work Phone: [facility] 10-13-2024 08:40-0500 Body height 162.6 cm Connor Furlong DO Work Phone: [facility] 10-13-2024 08:40-0500 Body mass index (BMI) [Ratio] 35.46 kg/m2 Connor Furlong DO Work Phone: [facility] 10-13-2024 08:40-0500 Body temperature 98.4 [degF] Connor Furlong DO Work Phone: [facility] 10-13-2024 08:40-0500 Body weight 93.71 kg Connor Furlong DO Work Phone: [facility] 10-13-2024 08:40-0500 Diastolic blood pressure 56 mm[Hg] Connor Furlong DO Work Phone: [facility] 10-13-2024 08:40-0500 Heart rate 60 /min Connor Furlong DO Work Phone: [employer] 10-13-2024 08:40-0500 Respiratory rate 18 /min [facility] 10-13-2024 08:40-0500 Systolic blood pressure 110 mm[Hg] Connor Furlong DO Work Phone: [facility] [employer] [facility] 08-28-2024 10:39-0400 Body height 165.1 cm Carmen Lopez MD Work Phone: [facility] 08-28-2024 10:39-0400 Body mass index (BMI) [Ratio] 35.28 kg/m2 Carmen Lopez MD Work Phone: [facility] 08-28-2024 10:39-0400 Body weight 96.16 kg Carmen Lopez MD Work Phone: [facility] 08-28-2024 10:39-0400 Diastolic blood pressure 56 mm[Hg] Carmen Lopez MD Work Phone: [facility] 08-28-2024 10:39-0400 Heart rate 56 /min Carmen Lopez MD Work Phone: [facility] 08-28-2024 10:39-0400 Systolic blood pressure 122 mm[Hg] Carmen Lopez MD Work Phone: [facility] 08-18-2024 10:47-0400 Body height 162.6 cm Connor Furlong DO Work Phone: [facility] [employer] [facility] 08-18-2024 10:47-0400 Body mass index (BMI) [Ratio] 36.22 kg/m2 Connor [facility] 08-18-2024 10:47-0400 Body temperature 97.39 [degF] Connor [facility] 08-18-2024 10:47-0400 Body weight 95.71 kg Connor Furlong DO Work Phone: [facility] [employer] [facility] 08-18-2024 10:47-0400 Diastolic blood pressure 72 mm[Hg] Connor Furlong DO Work Phone: [facility] [employer] [facility] 08-18-2024 10:47-0400 Heart rate 64 /min Connor Furlong DO Work Phone: [facility] 08-18-2024 10:47-0400 Systolic blood pressure 124 mm[Hg] Connor Furlong DO Work Phone: [facility] 07-15-2024 14:59-0400 Blood Pressure Location Radha Orzech [facility] 07-15-2024 14:59-0400 Diastolic blood pressure 64 mm[Hg] Radha Orzech [facility] 07-15-2024 14:59-0400 Heart rate 65 /min Radha Orzech [facility] 07-15-2024 14:59-0400 Systolic blood pressure 112 mm[Hg] Radha Orzech [facility] 03-06-2024 09:31-0400 Body height 165.1 cm Nick Richardson MD Work Phone: [facility] 03-06-2024 09:31-0400 Body mass index (BMI) [Ratio] 36.78 kg/m2 Nick Richardson MD Work Phone: [facility] 03-06-2024 09:31-0400 Body weight 100.25 kg Nick Richardson MD Work Phone: [facility] 03-06-2024 09:31-0400 Diastolic blood pressure 58 mm[Hg] Nick Richardson MD Work Phone: [facility] 03-06-2024 09:31-0400 Heart rate 44 /min Nick Richardson MD Work Phone: [facility] 03-06-2024 09:31-0400 Systolic blood pressure 104 mm[Hg] Nick Richardson MD Work Phone: [facility] 02-18-2024 10:11-0400 Body height 162.6 cm Connor Furlong DO Work Phone: [facility] [employer] [facility] 02-18-2024 10:11-0400 Body mass index (BMI) [Ratio] 37.25 kg/m2 Cononr Debbielong DO Work Phone: [facility] [employer] 02-18-2024 10:11-0400 Body temperature 97.81 [degF] Connor Lewislong DO Work Phone: [facility] [employer] 02-18-2024 10:11-0400 Body weight 98.43 kg Connor Furlong DO [facility] 02-18-2024 10:11-0400 Diastolic blood pressure 62 mm[Hg] Connor Debbielong DO [facility] 02-18-2024 10:11-0400 Heart rate 55 /min Connor Lewislong DO Work Phone: [facility] [employer] 02-18-2024 10:11-0400 Respiratory rate 20 /min Connor Furlong DO [facility] 02-18-2024 10:11-0400 SaO2% (BldA) [Mass fraction] 98 % Connor Furlong DO Work [facility] 02-18-2024 10:11-0400 Systolic blood pressure 130 mm[Hg] Connor [facility]bbielong DO [facility] 12-06-2022 13:27-0500 Body height 165.1 cm Connor G Furlong Work Phone: [facility] [facility] DO Work Phone: 12-06-2022 13:27-0500 Body mass index (BMI) [Ratio] 36.94 kg/m2 Connor G Furlong Work Phone: [facility] DO Work Phone: 12-06-2022 13:27-0500 Body surface area Derived from formula 2.07 m2 Connor G Furlong Work Phone: [facility] DO Work Phone: 12-06-2022 13:27-0500 Body weight 100.7 kg Connor G Furlong Work Phone: [facility] DO Work Phone: 12-06-2022 13:27-0500 Diastolic blood pressure 84 mm[Hg] Connor G Furlong Work Phone: [facility] DO Work Phone: 12-06-2022 13:27-0500 Heart rate 43 /min Connor G Furlong Work Phone: [facility] DO Work Phone: 12-06-2022 13:27-0500 Systolic blood pressure 130 mm[Hg] Connor G Furlong Work Phone: [facility] DO Work Phone: 06-30-2022 11:43-0400 Blood Pressure Location Yehuda HASSAN [facility] 06-30-2022 11:43-0400 Diastolic blood pressure 69 mm[Hg] Yehuda HASSAN [facility] 06-30-2022 11:43-0400 Heart rate 60 /min Yehuda HASSAN [facility] 06-30-2022 11:43-0400 Respiratory rate 16 /min Yehuda HASSAN [facility] 06-30-2022 11:43-0400 Systolic blood pressure 129 mm[Hg] Yehuda HASSAN [facility] 03-22-2022 14:06-0400 Body height 165.1 cm Connor G Furlong Work Phone: [facility] DO Work Phone: 03-22-2022 14:06-0400 Body mass index (BMI) [Ratio] 42.17 kg/m2 Connor G Furlong Work Phone: [facility] DO Work Phone: 03-22-2022 14:06-0400 Body surface area Derived from formula 2.19 m2 Connor G Furlong Work Phone: [facility] DO Work Phone: 03-22-2022 14:06-0400 Body weight 114.94 kg Connor G Furlong Work Phone: [facility] DO Work Phone: 03-22-2022 14:06-0400 Diastolic blood pressure 70 mm[Hg] Connor G Furlong Work Phone: [facility] DO Work Phone: 03-22-2022 14:06-0400 Heart rate 47 /min Connor G Furlong Work Phone: [facility] DO Work Phone: 03-22-2022 14:06-0400 Systolic blood pressure 114 mm[Hg] Connor G Furlong Work Phone: [facility] [employer] 250 DO Work Phone: 08-16-2021 14:38-0400 Body height 165.1 cm Connor G Furlong Work Phone: [facility] [employer] 600 DO Work Phone: 08-16-2021 14:38-0400 Body mass index (BMI) [Ratio] 42.53 kg/m2 Connor G Furlong Work Phone: [facility] [employer] 600 DO Work Phone: 08-16-2021 14:38-0400 Body surface area Derived from formula 2.2 m2 Connor G Furlong Work Phone: [facility] [employer] 600 DO Work Phone: 08-16-2021 14:38-0400 Body weight 115.94 kg Connor G Furlong Work Phone: [facility] [employer] 600 DO Work Phone: 08-16-2021 14:38-0400 Diastolic blood pressure 74 mm[Hg] Connor G Furlong Work Phone: [facility] [employer] 600 DO Work Phone: 08-16-2021 14:38-0400 Heart rate 44 /min Connor G Furlong Work Phone: [facility] [employer] 600 DO Work Phone: 08-16-2021 14:38-0400 Systolic blood pressure 134 mm[Hg] Connor G Furlong Work Phone: [facility] [employer] 600 DO Work Phone: Encounters Encounter Date Encounter Type Care Provider Facility Start: 10-19-2025 ambulatory Yehuda Vicente ty:LEXI Mccartney Start: 07-09-2025 End: 07-09-2025 Office outpatient visit 25 minutes [facility] Anaya DO [facility] Comment on above: Primary hypertension (Primary Dx); Acquired hypothyroidism; Hyperlipidemia, unspecified hyperlipidemia type; Class 1 obesity due to excess calories with serious comorbidity and body mass index (BMI) of 33.0 to 33.9 in adult; History of diabetes mellitus, type II Start: 07-09-2025 End: 07-09-2025 ambulatory [facility] Start: 05-26-2025 End: 05-26-2025 Zeus Mcclain DO Work Phone: [facility] Start: 05-26-2025 End: 05-26-2025 Bamlan Mcclain DO Work Phone: [facility] Start: 05-26-2025 End: 05-26-2025 Office outpatient visit 15 minutes Jr. Lesvia Mcclain DO Work Phone: [facility] Comment on above: Acute pain of right knee (Primary Dx); Arthritis of right knee Start: 05-26-2025 End: 05-26-2025 ambulatory LESVIA KEITA Not Available Start: 04-07-2025 End: 04-07-2025 ambulatory DORA ALCAZAR Facility:[facility] Start: 04-07-2025 End: 04-07-2025 Patient encounter procedure DORA ALCAZAR [facility] Start: 04-06-2025 End: 04-06-2025 Office outpatient visit 25 minutes Connor Anaya DO Work Phone: [facility] Comment on above: Cognitive impairment (Primary Dx); Minimal cognitive impairment; Attention or concentration deficit; Sleep apnea, unspecified type Start: 04-06-2025 End: 04-06-2025 ambulatory [facility] Start: 03-16-2025 End: 03-16-2025 ambulatory [facility] Start: 02-19-2025 End: 02-19-2025 Orders Only Connor Anaya DO Work Phone: [facility] Comment on above: Memory loss (Primary Dx); Cognitive impairment Start: 02-03-2025 End: 02-03-2025 ambulatory [facility] Start: 01-28-2025 End: 01-28-2025 Refill Connor Anaya DO Work Phone: [facility] Start: 01-22-2025 End: 01-22-2025 [facility] Start: 01-19-2025 End: 01-19-2025 [facility] Start: 01-19-2025 End: 01-19-2025 ambulatory [facility] Start: 01-19-2025 End: 01-19-2025 Assmt & care planning pt w/cognitive impairment Connor Anaya DO Work Phone: [facility] Comment on above: Cognitive impairment (Primary Dx); Memory loss; Anemia, unspecified type; Acquired hypothyroidism; Gross hematuria; Attention or concentration deficit; Paroxysmal atrial fibrillation (CMS-HCC); Non-ischemic cardiomyopathy (CMS-HCC); Morbid obesity ([facility]-H[facility]) Start: 11-27-2024 End: 11-27-2024 [facility] Start: 11-27-2024 End: 11-27-2024 [facility] Start: 11-25-2024 End: 11-25-2024 ambulatory [facility] Start: 11-25-2024 End: 11-25-2024 Patient encounter procedure Connor Anaya DO Work Phone: [facility] Comment on above: Medicare annual well ness visit, subsequent (Primary Dx); Screening for depression Start: 11-14-2024 End: 11-15-2024 Refill Mone Rafia CLINICAL STAFF ANESTHESIOLOGIST [facility] Comment on above: Proteinuria, unspeci fied Start: 11-04-2024 End: 11-04-2024 Bambolester flowsjulio Mcclain DO Work Phone: [facility] Start: 11-04-2024 End: 11-04-2024 [employer] Jr. Lesvia Mcclain DO Work Phone: [facility] Start: 11-04-2024 End: 11-04-2024 ambulatory LESVIA KEITA Not Available Start: 11-04-2024 End: 11-04-2024 Office outpatient visit 15 minutes Jr. Lesvia Mcclain DO Work Phone: [facility] Comment on above: Arthritis of right k nee (Primary Dx); Acute pain of right knee; Chondromalacia, patella, right Start: 10-17-2024 End: 10-17-2024 ambulatory [facility] Start: 10-13-2024 End: 10-13-2024 Transitional care manage srvc 14 day discharge [facility] Work Phone: [facility] Comment on above: Nonsustained ventric ular tachycardia (CMS-HCC) (Primary Dx); Non-ischemic cardiomyopathy (CMS-HCC); Paroxysmal atrial fibrillation (CMS-HCC); Primary hypertension; Need for immunization against influenza; 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 and body mass index (BMI) of 35.0 to 35.9 in adult Start: 10-13-2024 End: 10-13-2024 ambulatory [facility] Start: 10-07-2024 End: 10-07-2024 ambulatory Yehuda HASSAN Facility:[id number] Start: 09-28-2024 End: 09-28-2024 Telephone encounter Juju Van [facility] Comment on above: critical EKG Start: 09-11-2024 End: 09-11-2024 ambulatory Yehuda HASSAN Facility::[id number] Start: 09-03-2024 End: 09-03-2024 Orders Only Connor Anaya DO Work Phone: [facility] Start: 09-02-2024 End: 09-02-2024 Bamboo flowsheet Nany Swanson PA Work Phone: [facility] Start: 09-02-2024 End: 09-02-2024 Bamboo flowsheet Nany Swanson PA Work Phone: [facility] Start: 09-02-2024 End: 09-04-2024 Telephone encounter Isa Triana CMA [facility] Start: 09-02-2024 End: 09-02-2024 ambulatory NANY SWANSON Not Available Start: 09-02-2024 End: 09-02-2024 Office outpatient visit 25 minutes Nany Swanson PA Work Phone: [facility] Comment on above: Arthritis of right k nee (Primary Dx); Acute pain of right knee; Chondromalacia, patella, right Start: 08-28-2024 End: 08-28-2024 Office outpatient visit 25 minutes Carmen Lopez MD Work Phone: [facility] Comment on above: Paroxysmal atrial fi brillation (Multi) (Primary Dx); Non-ischemic cardiomyopathy (Multi); Mixed hyperlipidemia; Sinus bradycardia; High risk medication use; Class 2 obesity; BMI 35.0-35.9,adult; Never smoked tobacco Start: 08-28-2024 End: 08-28-2024 ambulatory PEARCE [facility] Start: 08-19-2024 End: 08-19-2024 Orders Only Connor Anaya DO Work Phone: [facility] Start: 08-18-2024 End: 08-18-2024 ambulatory CONNOR G [facility] Start: 08-18-2024 End: 08-18-[address] [facility] Start: 08-18-2024 End: 08-18-2024 [...] 07-29-2024 Lab Drop off Radha X Orzech [facility] Start: 07-29-2024 End: 07-29-2024 ambulatory Radha X Orzech Facility:[facility] Start: 07-29-2024 End: 07-29-2024 Patient encounter procedure Radha X Orzech [facility] Start: 07-24-2024 End: 07-24-2024 Refill Connor Lewisclem DO Work Phone: [facility] Start: 07-15-2024 End: 07-15-2024 Lab Drop off Radha X Orzech [facility] Start: 07-15-2024 End: 07-15-2024 ambulatory Radha X Orzech Facility:[facility] Start: 07-15-2024 End: 07-15-2024 Patient encounter procedure Radha X Orzech [facility] Start: 07-01-2024 End: 07-01-2024 ambulatory Radha X Orzech Facility:[facility] Start: 07-01-2024 End: 07-01-2024 Patient encounter procedure Radha X Orzech [facility] [place] Start: 06-10-2024 End: 06-10-2024 ambulatory [facility]zech [facility] Start: 06-10-2024 End: 06-10-2024 Patient encounter procedure Radha X Orzech [facility] [place] Start: 05-20-2024 End: 05-20-2024 ambulatory Radha X Orzech Facility: [place] Start: 05-20-2024 End: 05-20-2024 Patient encounter procedure Radha X Orzech [facility] [place] Start: 05-16-2024 End: 05-16-2024 ambulatory Yehuda [facility]ASSAN [facility] Start: 05-16-2024 End: 05-16-2024 Patient encounter procedure Yehuda HASSAN [facility] Start: 03-06-2024 End: 03-06-2024 Office outpatient visit 25 minutes Nick Richardson MD Work Phone: [facility] Comment on above: Mixed hyperlipidemia (Primary Dx); Paroxysmal atrial fibrillation (Multi); Non-ischemic cardiomyopathy (Multi); Never smoked tobacco; BMI 36.0-36.9,adult; Hyperlipidemia, unspecified hyperlipidemia type Start: 03-06-2024 End: 03-06-2024 [facility] Start: 02-22-2024 End: 02-22-2024 Orders Only Connor Anaya DO Work Phone: [facility] Start: 02-20-2024 End: 02-20-2024 Orders Only Connor Anaya DO Work Phone: [facility] Comment on above: Sleep Lab (HST) Start: 02-18-2024 End: 02-18-2024 ambulatory CONNORWANDY LEWISKEYLACLEM [facility] Start: 02-18-2024 End: 02-18-2024 Office outpatient visit 25 minutes Connor Lewiskeylaclem DO Work Phone: [facility] Comment on above: 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 (Primary Dx); Minimal cognitive impairment; Sleep apnea, unspecified type; Acquired hypothyroidism; Class 2 severe obesity due to excess calories with serious comorbidity and body mass index (BMI) of 37.0 to 37.9 in adult ([facility]) Start: 02-14-2024 End: 02-14-2024 Refill Connor Lewiskeylaclem DO Work Phone: [facility] Start: 12-24-2023 End: 12-24-2023 ambulatory [facility] Start: 12-13-2023 End: 12-13-2023 ambulatory Yehuda HASSAN Facility:[facility] [place] Start: 12-13-2023 End: 12-13-2023 Patient encounter procedure Yehuda HASSAN [facility] Start: 10-26-2023 End: 10-26-2023 ambulatory Yehuda HASSAN Facility:[facility] [place] Start: 10-09-2023 End: 10-09-2023 ambulatory DULCE ALCAZAR Facility:[facility] [place] Start: 03-13-[address] WILLARD Looney y:[facility]1 Start: 03-05-2023 End: 03-06-[address] YEHUDA HASSAN . Facility:[facility] Start: 02-20-2023 End: 02-21-2023 ambulatory [facility] Facility:[facility] Start: 12-06-2022 ambulatory [facility]: Start: 12-06-2022 Office outpatient vi sit 25 minutes Connor Lewisreggie Work Phone: [facility] DO Work Phone: Start: 11-20-2022 Rx Renewal Connor nj Work Phone: [facility] 250 DO Work Phone: Start: 11-03-2022 End: [...] for preprocedural laboratory examination DR LESVIA MCCLAIN [facility] Start: 09-05-2022 End: 09-05-2022 Patient encounter procedure Yehuda HASSAN [facility] Start: 09-01-2022 End: 09-02-[address] CONNOR ANAYA Facility:[facility] Start: 09-01-2022 End: 09-02-2022 Encounter for preprocedural laboratory examination DR CONNOR ANAYA Facility:[facility] Start: 08-31-2022 End: 09-01-[address] CONNOR ANAYA Facility:[facility] Start: 08-22-2022 Rx Renewal Connor nj Work Phone: [facility] 250 DO Work Phone: Start: 08-22-2022 End: 08-23-[address] CONNOR ANAYA Facility:[facility] Start: 08-17-2022 End: 08-18-[address] CONNOR ANAYA Facility:[facility] Start: 08-11-2022 End: 08-11-2022 Lab Drop off DORA ALCAZAR [facility] Start: 08-11-2022 End: 08-11-2022 Patient encounter procedure DORA ALCAZAR [facility] Start: 08-07-2022 End: 08-08-[address] WILLARD SHARMA Facility:[facility] Start: 08-01-2022 End: 08-02-[address] WILLARD SHARMA Facility:[facility] Start: 07-17-2022 End: 07-18-[address] WILLARD SHARMA Facility:[facility] Start: 07-12-2022 End: 07-13-[address] WILLARD SHARMA Facility:[facility] Start: 06-30-2022 End: 07-01-[address] WILLARD SHARMA Facility:[facility] Start: 06-30-2022 End: 06-30-2022 Patient encounter procedure Yehuda HASSAN [facility] Start: 06-26-2022 End: 06-27-[address] WILLARD [...] DR WILLARD SHARMA Facility:[facility] Start: 03-22-2022 ambulatory Connorwandy Lewisreggie Facility: Start: 03-22-2022 Office outpatient vi sit 25 minutes Connor Tavaresng Work Phone: [facility] [employer] 250 DO Work Phone: Start: 03-22-2022 End: 03-23-[address] WILLARD SHARMA Facility:[facility] Start: 01-31-2022 ambulatory Connor Torito Lewisreggie Facility: Start: 12-07-2021 Rx Renewal Connor Lewislo ng Work Phone: [facility] [employer] 250 DO Work Phone: Start: 08-16-2021 Office outpatient vi sit 15 minutes Connor Lewislong Work Phone: [facility] [employer] 600 DO Work Phone: Imaging result normal Connor Butler urlong Work Phone: [facility] [employer] 250 DO Work Phone: Patient encounter status [facility]long [facility] Work Phone: Procedures Date Procedure Procedure Detail Performing Clinician Start: 07-09-2025 Adult depression scr eening assessment Connor Furlong DO Work Phone: Start: 04-06-2025 Adult depression scr eening assessment Connor Furlong DO Work Phone: Start: 01-19-2025 Urnls dip stick/tabl et rgnt non-auto w/o micrscp Connor Anaya DO Work Phone: Start: 01-19-2025 Adult depression scr eening assessment Connorwandy Lewislong DO Work Phone: Start: 11-25-2024 Adult depression scr eening assessment Connor Debbielong DO Work Phone: Start: 10-13-2024 Adult depression scr eening assessment Connorwandy Lewislong DO Work Phone: Start: 09-02-2024 Arthrocentesis aspir &/inj major jt/bursa w/o us Nany HO Work Phone: Start: 09-02-2024 Radiologic examinati on knee 1/2 views Nany HO Work Phone: Start: 08-18-2024 Follow-up visit Follow-up CONNOR ANAYA Start: 08-18-2024 Adult depression scr eening assessment Connorwandy Tavaresng DO Work Phone: Start: 08-05-2024 Mammography Connor Fur long DO Work Phone: Start: 03-06-2024 ECG 12-LEAD NICK VILLEDA Start: 03-06-2024 FOLLOW UP IN CARDIOLOGY NICK RICHARDSON Start: 03-06-2024 Ecg routine ecg w/le ast 12 lds w/i&r Nick Richardson MD Work Phone: Start: 02-18-2024 Adult depression scr eening assessment Connorwandy Lewislong DO Work Phone: Start: 12-24-2023 ECG 12-LEAD NICK VILLEDA Start: 07-26-2023 Mammography Connor Fur long DO Work Phone: Start: 07-23-2023 Adult depression scr eening assessment Connor Debbielong DO Work Phone: Start: 09-05-2022 Cystoscopy Yehuda CORONA Start: 02-02-2021 Cystoscopy Yehuda CORONA Start: 07-14-2020 Cystoscopy Yehuda CORONA Start: 07-08-2020 Cystoscopy Yehuda CORONA Start: 07-17-2019 Extracorporeal shock wave lithotripsy of the bile duct Yehuda HASSAN Comment on above: Right Start: 10-29-2015 Gastric sleeve Yehuda HASSAN Arthroplasty of knee Connor Ruiz Furlong Work Phone: Colonoscopy Connor Tavaresn g Work Phone: Esophagogastrostomy, antesternal or antethoracic Connor G Debbielong Work Phone: H/O: hysterectomy Yehuda CORONA Comment on above: Complete Hernia repair Connor Lewislo ng Work Phone: Hysterectomy Connor Tavaresn g Work Phone: Lithotripsy Connor Gomez g Work Phone: Renal artery stent (physical object) Yehuda HASSAN Repair of ventral hernia Malgorzata HASSAN Plan of Treatment Date Care Activity Detail Author Start: 02-20-2033 DTaP,Tdap and Td Vaccines (5 - Td or Tdap) DTaP,Tdap and Td Vaccines (5 - Td or Tdap) [facility] [employer] [facility] Start: 02-20-2033 DTaP,Tdap and Td Vaccines (6 - Td or Tdap) DTaP,Tdap and Td Vaccines (6 - Td or Tdap) [facility] [employer] [facility] Start: 02-20-2033 DTaP/Tdap/Td Vaccine s (3 - Td or Tdap) DTaP/Tdap/Td Vaccines (3 - Td or Tdap) [facility] Start: 07-09-2026 [facility] Start: 07-09-2026 Fall Risk Screening Fall Risk Screen ing [facility] Start: 07-09-2026 Tobacco Screening Tobacco Screening [facility] Start: 04-06-2026 Adult BMI Screening Adult BMI Screen ing [facility] Start: 04-06-2026 Depression Screening Depression Scre ening [facility] Start: 04-06-2026 Fall Risk Screening Fall Risk Screen ing [facility] Start: 04-06-2026 Tobacco Screening Tobacco Screening [facility] Start: 01-19-2026 Adult BMI Screening Adult BMI Screen ing [facility] Start: 01-19-2026 Depression Screening Depression Scre ening [facility] Start: 01-19-2026 Fall Risk Screening Fall Risk Screen ing [facility] Start: 01-19-2026 Tobacco Screening Tobacco Screening [facility] Start: 01-06-2026 End: 01-06-2026 Patient encounter procedure 01/06/2026 10:00 AM EDT Office Visit [facility] [address] [place] [address] Connor Anaya, DO [address], [place] [address] [facility] Start: 12-13-2025 Screening for malign ant neoplasm of colon Colon Cancer Screening 5 Year Sigmoidoscopy [facility] Comment on above: Postponed from 04/28 (Not Indicated) Start: 11-26-2025 End: 11-26-2025 Patient encounter procedure 11/26/2025 1:40 PM EST Office Visit [facility] [address] [place] [address] [facility] Start: 11-25-2025 Adult BMI Screening Adult BMI Screen ing [facility] Start: 11-25-2025 Depression Screening Depression Scre ening [facility] Start: 11-25-2025 Fall Risk Screening Fall Risk Screen ing [facility] Start: 11-25-2025 Medicare Annual Wellness Visit Medicare Annual Wellness Visit [facility] Start: 11-03-2025 End: 11-03-2025 Patient encounter procedure [facility] Start: 10-13-2025 Adult BMI Screening Adult BMI Screen ing [facility] Start: 10-13-2025 Depression Screening Depression Scre ening [facility] Start: 10-13-2025 Fall Risk Screening Fall Risk Screen ing [facility] Start: 10-13-2025 Tobacco Screening Tobacco Screening [facility] Start: 09-22-2025 End: 09-22-2025 Patient encounter procedure 09/22/2025 11:15 AM EST Office Visit [facility] [address] [place] [id number] Jr. Lesvia Mcclain, DO [address] [place] [address] [facility] Start: 08-27-2025 End: 08-27-2025 Patient encounter procedure 08/27/2025 11:20 AM EDT Office Visit [facility] [address] [place] [address] Carmen Lopez MD [address] [facility], [address] [place] [address] [facility] Start: 08-18-2025 Adult BMI Screening Adult BMI Screen ing [facility] Start: 08-18-2025 Depression Screening Depression Scre ening [facility] Start: 08-18-2025 Fall Risk Screening Fall Risk Screen ing [facility] Start: 08-18-2025 Tobacco Screening Tobacco Screening [facility] Start: 08-05-2025 Screening for malign ant neoplasm of breast Mammogram [facility] Start: 07-29-2025 COVID-19 Vaccine ( season) COVID-19 Vaccine ( season) [facility] Comment on above: Postponed from 06/29 (Vaccine Not Available) Start: 07-29-2025 Influenza vaccination Influenza Vacc ine [facility] Comment on above: Postponed from 06/29 (Vaccine Not Available) Start: 07-09-2025 End: 07-09-2025 Patient encounter procedure 07/09/2025 10:00 AM EDT Office Visit [facility] [address] [place] [address] Connor Anaya, DO [address], [place] [address] [facility] Start: 06-29-2025 Influenza vaccination [facility] Start: 05-26-2025 End: 05-26-2025 Patient encounter procedure 05/26/2025 11:00 AM EDT Office Visit [facility] [address] [facility] [place] [phone] Jr. Lesvia Mcclain, DO [address] [facility] [address] [place] [address] Arrived [facility] Comment on above: Arrived Start: 03-25-2025 End: 03-25-2025 Patient encounter procedure 03/25/2025 1:00 PM EDT Office Visit [facility] [address] [place] [phone] Jr. Lesvia Mcclain, DO [address] [facility] [address] [place] [address] [facility] Start: 03-16-2025 End: 03-16-2025 Patient encounter procedure 03/16/2025 8:15 AM EDT Appointment [facility] [address] [place] [phone] Connor Anaya, DO [address], [place] [address] [facility] Start: 02-19-2025 End: 02-19-2026 MR Brain WO contrast MR brain without contrast Imaging Routine Memory loss Cognitive impairment Expected: 02/19/2025, Expires: 02/19/2026 [employer] Work Phone: Comment on above: Expected: 02/19/2025 , Expires: 02/19/2026 Start: 02-17-2025 Adult BMI Follow Up Plan Adult BMI Follow Up Plan [facility] Start: 02-17-2025 Adult BMI Screening Adult BMI Screen ing [facility] Start: 02-17-2025 Depression Screening Depression Scre ening [facility] Start: 02-17-2025 Fall Risk Screening Fall Risk Screen ing [facility] Start: 02-17-2025 Tobacco Screening Tobacco Screening [facility] Start: 02-16-2025 End: 02-16-2025 Patient encounter procedure 02/16/2025 9:00 AM EDT Office Visit [facility] [address] [place] [address] Connor Anaya DO [address], [place] [address] [facility] Start: 01-19-2025 End: 01-19-2026 MR Brain WO contrast MR brain without contrast Imaging Routine Cognitive impairment Expected: 01/19/2025, Expires: 01/19/2026 [employer] Work Phone: Comment on above: Expected: 01/19/2025 , Expires: 01/19/2026 Start: 01-19-2025 End: 01-19-2025 Patient encounter procedure 01/19/2025 10:30 AM EDT [facility] [address] [place] [address] Connor Anaya DO [address] [place] [address] [facility] Start: 11-04-2024 End: 11-04-2024 Patient encounter procedure 11/04/2024 11:00 AM EST Office Visit [facility] [address] [place] [phone] Jr. Lesvia Mcclain, DO [address] [place] [address] [facility] Start: 08-28-2024 End: 08-28-2024 Patient encounter procedure 08/28/2024 10:40 AM EDT Office Visit [address] [place] [address] Carmen Lopez MD [address] [facility] [address], [address] [place], [place] [address] [facility] Start: 08-18-2024 End: 08-18-2024 Patient encounter procedure 08/18/2024 10:30 AM EDT Office Visit [facility] [address] [place] [address] Connor Anaya, DO [address], [facility] [place] [address] [facility] Start: 07-26-2024 Screening for malign ant neoplasm of breast Mammogram [facility] Start: 07-23-2024 Adult BMI Screening Adult BMI Screen ing [facility] Start: 07-23-2024 Depression Screening Depression Scre ening [facility] Start: 07-23-2024 Tobacco Screening Tobacco Screening [facility] Start: 06-29-2024 COVID-19 Vaccine ( season) COVID-19 Vaccine ( season) [facility] Start: 06-29-2024 COVID-19 Vaccine ( season) COVID-19 Vaccine () [facility] Start: 06-29-2024 COVID-19 Vaccine ( season) COVID-19 Vaccine () [facility] Start: 06-29-2024 COVID-19 Vaccine () COVID-19 Vaccine () [facility] Start: 06-29-2024 Influenza vaccination [facility] Start: 06-24-2024 End: 06-24-2024 Patient encounter procedure 06/24/2024 10:40 AM EDT [facility] [address] [place] [address] [facility] Start: 06-21-2024 Fall Risk Screening Fall Risk Screen [facility] Start: 06-21-2024 Medicare Annual Wellness Visit Medicare Annual Wellness Visit [facility] Start: 03-17-2024 End: 03-17-2024 Clinical Support 03/17/2024 7:30 PM EDT Clinical Support [facility] [address] [phone] Connor Anaya DO [address] [place] [address] [facility] Start: 03-01-2024 COVID-19 Vaccine () COVID-19 Vaccine () [facility] Start: 02-18-2024 End: 02-18-2024 Patient encounter procedure 02/18/2024 9:45 AM EDT [facility] [address] [place] [address] Connor Anaya DO [address], [place] [address] [facility] Start: 01-29-2024 FUV, Provider: Nick Richardson, Status: Pen, Time: 11:20 AM FUV, Provider: Nick Richardson, Status: Pen, Time: 11:20 AM -[facility] [employer] 250 DO Work Phone: Start: 06-29-2023 COVID-19 Vaccine ( season) COVID-19 Vaccine ( season) [facility] Start: 12-06-2022 FUV, Provider: Nick Richardson, Status: Pen, Time: 1:10 PM FUV, Provider: Nick Richardson, Status: Pen, Time: 1:10 PM -[facility] 250 DO Work Phone: Start: 01-31-2022 FUV, Provider: Nick Sarkar, Status: Pen, Time: 2:20 PM FUV, Provider: Nick Sarkar, Status: Pen, Time: 2:20 PM -[facility] [employer] 250 DO Work Phone: Start: 2010 RSV High Risk: (Elde rly (60+) or Population) (1 - Risk 60-74 years 1-dose series) RSV High Risk: (Elderly (60+) or Population) (1 - Risk 60-74 years 1-dose series) [facility] Start: 2010 RSV patient s and/or patients aged 60+ years (1 - 1-dose 60+ series) RSV patients and/or patients aged 60+ years (1 - 1-dose 60+ series) [facility] Start: 1995 Screening for malign ant neoplasm of colon Colon Cancer Screening 5 Year Sigmoidoscopy [facility] Start: 1968 Adult BMI Follow Up Plan Adult BMI Follow Up Plan [facility] Start: 1968 Diabetes mellitus screening Diabetes Screening [facility] Start: 1968 Diabetic foot examination Diabetic Foot Exam [facility] Start: 1968 Hepatitis C screening Hepatitis C Sc [facility] Start: 1950 Glaucoma screening Diabetic Op hthalmology Exam [facility] Start: 1950 Lipid panel Lipid Panel [facility] Start: 1950 Medicare Annual Wellness Visit Medicare Annual Wellness Visit (AWV) [facility] Start: 1950 Screening for malign ant neoplasm of colon [facility] Start: 1950 Screening for osteoporosis Bone Density Scan [facility] Start: 1950 Thyroid stimulating hormone measurement TSH Level [facility] End: 01-19-2026 Bacteria identified in Urine by Culture Urine culture (clean catch) Microbiology Routine Cognitive impairment Gross hematuria 1 Occurrences starting 01/19/2025 until 01/19/2026 [employer] Comment on above: 1 Occurrences starti ng 01/19/2025 until 01/19/2026 Bacteria identified in Urine by Culture Urine culture (clean catch) Microbiology Routine Cognitive impairment Gross hematuria 01/19/2025 7:21 PM EDT [employer] End: 07-09-2026 Comprehensive metabolic 2000 panel - Serum or Plasma Comprehensive metabolic panel Lab Routine Primary hypertension 1 Occurrences starting 07/09/2025 until 07/09/2026 [employer] Comment on above: 1 Occurrences starti ng 07/09/2025 until 07/09/2026 Comprehensive metabo lic 2000 panel - Serum or Plasma Comprehensive metabolic panel Lab Routine Primary hypertension 07/09/2025 10:32 AM EDT [employer] End: 07-09-2026 Hemoglobin A1c/Hemoglobin.total in Blood Hemoglobin A1c Lab Routine History of diabetes mellitus, type II 1 Occurrences starting 07/09/2025 until 07/09/2026 [employer] Work Phone: Comment on above: 1 Occurrences starti ng 07/09/2025 until 07/09/2026 Hemoglobin A1c/Hemoglobin.total in Blood Hemoglobin A1c Lab Routine History of diabetes mellitus, type II 07/09/2025 10:32 AM EDT [employer] End: 02-17-2025 Home sleep study [facility] sleep [facility] Routine Sleep apnea, unspecified type 1 Occurrences starting 02/18/2024 until 02/17/2025 [employer] Work Phone: Comment on above: 1 Occurrences starti ng 02/18/2024 until 02/17/2025 End: 07-09-2026 Lipid 1996 panel - Serum or Plasma Lipid profile Lab Routine Hyperlipidemia, unspecified hyperlipidemia type 1 Occurrences starting 07/09/2025 until 07/09/2026 [employer] Comment on above: 1 Occurrences starti ng 07/09/2025 until 07/09/2026 Lipid 1996 panel - Serum or Plasma Lipid profile Lab Routine Hyperlipidemia, unspecified hyperlipidemia type 07/09/2025 10:32 AM [facility] End: 07-09-2026 Thyroid profile includes TSH FT4 Thyroid profile includes TSH FT4 Lab Routine Acquired hypothyroidism 1 Occurrences starting 07/09/2025 until 07/09/2026 [employer] Comment on above: 1 Occurrences starti ng 07/09/2025 until 07/09/2026 Thyroid profile includes TSH FT4 Thyroid profile includes TSH FT4 Lab Routine Acquired hypothyroidism 07/09/2025 10:32 AM EDT [facility] Immunizations Immunization Date Immunization Notes Care Provider [facility] 10-13-2024 Seasonal trivalent influenza vaccine, adjuvanted, preservative free Connor Lewiskeylaclem DO Work Phone: [facility] 10-13-2024 Immunization, In Clinic,; Translations: [Drug or medicament (substance)] Connorwandy Lewiskeylaclem DO Work Phone: [facility] 10-13-2024 influenza virus vacc ine, unspecified formulation Connor Anaya DO Work Phone: [facility] 11-01-2023 Influenza, High-dose , Quadrivalent Connor Debbiekeylaclem DO Work Phone: [facility] 11-01-2023 influenza virus vacc ine, unspecified formulation Connor Anaya DO Work Phone: [facility] 02-20-2023 tetanus toxoid, redu mariano diphtheria toxoid, and acellular pertussis vaccine, adsorbed Yehuda HASSAN [facility] 10-15-2022 Fluzone High-Dose Quadrivalent 0.7 ML Intramuscular Suspension Prefilled Syringe Connor Anaya Work Phone: [facility] 250 DO Work Phone: 10-15-2022 influenza virus vacc ine, unspecified formulation Yehuda HASSAN [facility] 10-15-2022 influenza, high dose seasonal, preservative-free Nick Richardson MD Work Phone: [facility] Work Phone: 04-29-2022 Comirnaty 30 MCG/0.3 ML Intramuscular Suspension Connor Anaya Work Phone: [facility] 250 DO Work Phone: 04-29-2022 COVID-19, mRNA, LNP- S, PF, 100mcg/0.5mL Dose Connor Anaya DO Work Phone: [facility] 04-29-2022 SARS-COV-2 (COVID-19 ) Vaccine, Unspecified Connor Anaya DO Work Phone: [employer] 04-29-2022 SARS-CoV-2 mRNA ([id number] e) vaccine Yehuda HASSAN [facility] 09-08-2021 influenza virus vacc ine, unspecified formulation Yehuda HASSAN [facility] 08-29-2021 Fluzone High-Dose Quadrivalent 0.7 ML Intramuscular Suspension Prefilled Syringe Connor [facility] DO Work Phone: 08-29-2021 influenza virus vacc ine, unspecified formulation Yehuda HASSAN [facility] 08-29-2021 influenza, high dose seasonal, preservative-free Nick Richardson MD Work Phone: [facility] Work Phone: 08-29-2021 Pfizer-BioNTech COVI D-19 Vacc 30 MCG/0.3ML Intramuscular Suspension Connor Ruiz Furlong Work Phone: [facility] 12-23-2020 Pfizer-BioNTech COVI D-19 Vacc 30 MCG/0.3ML Intramuscular Suspension Connor Ruiz Furlong Work Phone: [facility] 12-01-2020 Pfizer-BioNTech COVI D-19 Vacc 30 MCG/0.3ML Intramuscular Suspension Connor Ruiz Furlong Work Phone: [facility] 09-13-2020 pneumococcal polysaccharide vaccine, 23 valent Connor Ruiz Furlong Work Phone: [facility] 09-03-2020 influenza virus vacc ine, unspecified formulation Yehuda HASSAN [facility] 09-03-2020 influenza, high dose seasonal, preservative-free Connor Furlong DO Work Phone: [facility] 09-03-2020 influenza, injectabl e, quadrivalent, contains preservative Connor G Furlong Work Phone: [facility] 600 DO Work Phone: 08-29-2020 influenza virus vacc ine, unspecified formulation Yehuda HASSAN [facility] 08-29-2020 influenza, high dose seasonal, preservative-free Connor G Furlong Work Phone: [facility] 250 DO Work Phone: 08-29-2020 influenza, injectabl e, quadrivalent, contains preservative Connor Furlong DO Work Phone: [facility] 08-29-2020 pneumococcal polysaccharide vaccine, 23 valent Connor G Furlong Work Phone: [facility] 08-11-2020 influenza virus vacc ine, unspecified formulation Patient Feed [facility] 08-11-2020 influenza, seasonal, injectable Connor G Furlong Work Phone: [facility] 600 DO Work Phone: 07-29-2020 influenza virus vacc ine, unspecified formulation Patient Feed [facility] 07-29-2020 influenza, seasonal, injectable Connor G Furlong Work Phone: [facility] 250 DO Work Phone: 09-02-2019 influenza virus vacc ine, unspecified formulation Patient Feed [facility] 09-02-2019 influenza, high dose seasonal, preservative-free Connor G Furlong Work Phone: [facility] 600 DO Work Phone: 08-29-2019 influenza virus vacc ine, unspecified formulation Connor G Furlong Work Phone: [facility] 08-29-2019 influenza, seasonal, injectable Connor Furlong DO Work Phone: [facility] 08-11-2019 influenza virus vacc ine, unspecified formulation Yehuda HASSAN [facility] 06-17-2019 zoster vaccine recombinant Connor G Furlong Work Phone: [facility] 05-29-2019 zoster vaccine recombinant Connor G Furlong Work Phone: [facility] 04-15-2019 zoster vaccine recombinant Connor G Furlong Work Phone: [facility] 03-29-2019 zoster vaccine recombinant Connor G Furlong Work Phone: [facility] 08-29-2018 influenza virus vacc ine, unspecified formulation Connor G Furlong Work Phone: [employer] [facility] DO Work Phone: 09-27-2017 influenza virus vacc ine, unspecified formulation [employer] [facility] 09-27-2017 Influenza, injectabl e, Madin Malinta Canine Kidney, preservative free, quadrivalent Connor G Furlong Work Phone: [facility] DO Work Phone: 09-26-2017 influenza virus vacc ine, unspecified formulation Connor G Furlong Work Phone: [facility] [employer] 250 DO Work Phone: 10-19-2016 influenza virus vacc ine, unspecified formulation [employer] [facility] 10-19-2016 seasonal influenza, intradermal, preservative free Connor G Furlong Work Phone: [facility] DO Work Phone: 10-06-2016 influenza virus vacc ine, unspecified formulation [employer] [facility] 10-06-2016 influenza, seasonal, injectable, preservative free Connor G Furlong Work Phone: [facility] DO Work Phone: 04-10-2016 pneumococcal conjuga te vaccine, 13 valent Connor G Furlong Work Phone: [facility] 04-06-2016 pneumococcal conjuga te vaccine, 13 valent Yehuda HASSAN [facility] 08-07-2014 influenza virus vacc ine, unspecified formulation Connor G Furlong Work Phone: [facility] DO Work Phone: 08-07-2014 Influenza, High-dose , Quadrivalent Connor Furlong DO Work Phone: [facility] 08-07-2014 influenza, unspecifi ed formulation Yehuda HASSAN [facility] 07-29-2014 influenza virus vacc ine, unspecified formulation Connor G Furlong Work Phone: [facility] 250 DO Work Phone: 07-29-2014 pneumococcal polysaccharide vaccine, 23 valent Connor G Furlong Work Phone: [facility] 10-02-2013 pneumococcal conjuga te vaccine, 13 valent Connor G Furlong Work Phone: [facility] 02-14-2013 zoster vaccine, live Connor G Furlong Work Phone: [facility] 10-29-2012 influenza virus vacc ine, unspecified formulation Connor G Furlong Work Phone: [facility] 250 DO Work Phone: 10-29-2012 pneumococcal polysaccharide vaccine, 23 valent Connor G Furlong Work Phone: [facility] 250 DO Work Phone: 10-29-2010 pneumococcal polysaccharide vaccine, 23 valent Connor Anaya DO Work Phone: [facility] 02-21-2010 pneumococcal polysaccharide vaccine, 23 valent Connor Tavaresng Work Phone: [facility] 02-21-2010 tetanus toxoid, redu mariano diphtheria toxoid, and acellular pertussis vaccine, adsorbed Connor Anaya Work Phone: [facility] 12-20-2009 novel influenza-H1N1 -09, preservative-free, injectable Connor Tavaresng Work Phone: [facility] 600 DO Work Phone: 11-29-2009 novel influenza-H1N1 -09, preservative-free, injectable Connor Anaya Work Phone: [facility] 250 DO Work Phone: 09-06-1999 TD(adult) unspecifie d formulation; Translations: [Td(adult) unspecified formulation] Connor Anaya Work Phone: [facility] 09-06-1999 tetanus and diphther ia toxoids, adsorbed, preservative free, for adult use (2 Lf of tetanus toxoid and 2 Lf of diphtheria toxoid) Connor Anaya DO Work Phone: [facility] influenza virus vacc ine, unspecified formulation Connor Anaya Work Phone: [facility] 250 DO Work Phone: Comment on above: 2010Jul 2012 pneumococcal polysaccharide vaccine, 23 valent Connor Anaya Work Phone: [facility] 250 DO Work Phone: Comment on above: 2010 Payers Date Payer Category Payer Medicare (Managed Care) [facility] ICARE COMPLETE [id number] 2024 Medicare [id number] 2015 Managed Care Other (unspecified) [facility] [id number] 2015 Medicare [id number] .[id number] 2015 Miscellaneous or Other [facility] [id number] .[id number] 5 2015 Private Health Insurance [id number] .[id number] 5 2015 Unknown 2015 Unknown [id number] 1959 Medicare [id number] 1959 Unknown [id number] 1950 Unknown [id number] 2.16.840.1.256511.3.579 .2.356 1950 Unknown [id number] 2.16.840.1.095783.3.579 .2.356 1950 Unknown [id number] 2.16.840.1.558133.3.579 .2.356 1950 Unknown [id number] 2.16.840.1.511727.3.579 .2.593 1950 Unknown [id number] 2.16.840.1.637781.3.579 .2.593 1950 Unknown [id number] 2.16.840.1.168434.3.579 .2.593 1950 Unknown [id number] 2.16.840.1.149510.3.579 .2.593 1950 Unknown [id number] 2.16.840.1.680237.3.579 .2.593 1950 Unknown [id number] 2.16.840.1.213824.3.579 .2.593 1950 Unknown [id number] 2.16.840.1.243273.3.579 .2.593 1950 Unknown [id number] 2.16.840.1.999841.3.579 .2.593 1950 Unknown [id number] 2.16.840.1.803700.3.579 .2.593 1950 Unknown [id number] 2.16.840.1.348122.3.579 .2.593 1950 Unknown [id number] 2.16.840.1.190172.3.579 .2.593 1950 Unknown [id number] 2.16.840.1.645042.3.579 .2.593 1950 Unknown [id number] 2.16.840.1.513647.3.579 .2.593 1950 Unknown [id number] 2.16.840.1.531927.3.579 .2.593 1950 Unknown [id number] 2.16.840.1.315327.3.579 .2.593 1950 Unknown [id number] 2.16.840.1.088462.3.579 .2.593 1950 Unknown [id number] 2.16.840.1.417996.3.579 .2593 1950 Unknown [id number] 2.16.840.1.114349.3.579 .2.593 1950 Unknown [id number] 2.16.840.1.718676.3.579 .2.593 1950 Unknown [id number] 2.16.840.1.583080.3.579 .2.593 1950 Unknown [id number] 2.16.840.1.848338.3.579 .2.593 1950 Unknown [id number] 2.16.840.1.457419.3.579 .2.593 1950 Unknown [id number] 2.16.840.1.954503.3.579 .2.593 1950 Unknown [id number] 2.16.840.1.762618.3.579 .2.593 1950 Unknown [id number] 2.16.840.1.237755.3.579 .2.593 1950 Unknown [id number] 2.16.840.1.167640.3.579 .2.593 1950 Unknown [id number] 2.16.840.1.462322.3.579 .2.593 1950 Unknown [id number] 2.16.840.1.016675.3.579 .2.593 1950 Unknown [id number] 2.16.840.1.574621.3.579 .2.593 1950 Unknown [id number] 2.16.840.1.470022.3.579 .2.593 1950 Unknown [id number] 2.16.840.1.742822.3.579 .2.593 1950 Unknown [id number] 2.16.840.1.124173.3.579 .2.593 1950 Unknown [id number] 2.16.840.1.145911.3.579 .2.593 1950 Unknown [id number] 2.16.840.1.383382.3.579 .2.593 1950 Unknown [id number] 2.16.840.1.836972.3.579 .2.593 1950 Unknown [id number] 2.16.840.1.435153.3.579 .2.727 1950 Unknown [id number] 2.16.840.1.964456.3.579 .2.727 1950 Unknown [id number] 2.16.840.1.230290.3.579 .2.727 1950 Unknown [id number] 2.16.840.1.242605.3.579 .2.727 1950 Unknown [id number] 2.16.840.1.268123.3.579 .2.727 1950 Unknown [id number] 2.16.840.1.500838.3.579 .2727 1950 Unknown [id number] 2.16.840.1.941038.3.579 .2.727 1950 Unknown [id number] 2.16.840.1.926547.3.579 .2.727 1950 Unknown [id number] 2.16.840.1.981028.3.579 .2.727 1950 Unknown [id number] 2.16.840.1.329288.3.579 .2.727 1950 Unknown [id number] 2.16.840.1.967342.3.579 .2.7 1950 Unknown [id number] 2.16.840.1.218130.3.579 .2.727 1950 Unknown [id number] 2.16.840.1.458590.3.579 .2.4 1950 Unknown [id number] 2.16.840.1.373949.3.579 .2.1244 1950 Unknown [id number] 2.16.840.1.750514.3.579 .2.1243 1950 Unknown [id number] 2.16.840.1.409122.3.579 .2.1286 1950 Unknown [id number] 2.16.840.1.042680.3.579 .2.128 1950 Unknown [id number] 2.16.840.1.162301.3.579 .2.1286 1950 Unknown [id number] 2.16.840.1.568620.3.579 .2.128 1950 Unknown [id number] 2.16.840.1.409758.3.579 .2.727 1950 Unknown [id number] 2.16.840.1.033163.3.579 .2.7 1950 Unknown [id number] 2.16.840.1.568215.3.579 .2.727 1950 Unknown [id number] 2.16.840.1.615346.3.579 .2.1259 1950 Unknown [id number] 2.16.840.1.963476.3.579 .2.1259 1950 Unknown [id number] 2.16.840.1.564489.3.579 .2.9 1950 Unknown [id number] 2.16.840.1.528494.3.579 .2.1259 1950 Unknown [id number] 2.16.840.1.893853.3.579 .2.1286 1950 Unknown [id number] 2.16.840.1.451600.3.579 .2.1286 1950 Unknown [id number] 2.16.840.1.380413.3.579 .2.6 1950 Unknown [id number] 2.16.840.1.970468.3.579 .2.6 1950 Unknown [id number] 2.16.840.1.636539.3.579 .2.6 1950 Unknown [id number] 2.16.840.1.421378.3.579 .2.1286 Social History Date Type Detail Facility Start: 02-20-2023 End: 03-06-2024 Never a smoker Never a smoker [facility] 600 DO Work Phone: Start: 12-28-2021 End: 11-13-2022 Tobacco smoking status Never smoked tobacco (finding) [facility] Tobacco smoking status Never [facility] Start: 02-20-2023 End: 03-06-2024 Sex Assigned At Female [facility] Start: 11-13-2022 End: 08-17-2023 Tobacco use and exposure Smokeless tobacco non-user [facility] Start: 03-06-2024 Alcoholic beverage intake Life time non-drinker (finding) [facility] Work Phone: Start: 1950 Sex assigned at Not on file [facility] Start: 02-25-2024 End: 08-28-2024 Exposure to SARS-CoV-2 (event) Not sure [facility] Start: 10-13-2024 End: 07-09-2025 Alcoholic beverage intake Ex-drinker (finding) [facility] Do you belong to any clubs or organizations such as sabianist groups, unions, fraternal or athletic groups, or school groups? No [facility] Are you now , , , , never or living with a partner? [facility] How often to you hav e a drink containing alcohol? Never [facility] Do you feel stress - tense, restless, nervous, or anxious, or unable to sleep at night because your mind is troubled all the time - these days [OSQ] Only a little [facility] Start: 06-02-2015 End: 10-09-2017 Sex Female (finding) [facility] Sexual Orientation [facility] Functional Status Date Assessment Result Facility 07-15-2024 Functional Status N/A [facility] 08-24-2022 Functional Status N/A [facility] 06-30-2022 Functional Status N/A [facility] Clinical Notes 06-30-2022 to 07-09-2025 Connor Anaya, DO - 07/09/2025 10:00 AM EDTJrMaite cMclain, DO - 05/26/2025 11:00 AM EDTConnor Anaya, DO - 04/06/2025 11:45 AM EDTConnor Anaya, DO - 01/19/2025 10:30 AM EDTRadiology Note Date & Type Note Facility 07-09-2025 History of Present illness Narrative Subjective Patient ID: Miky Fuentes is a 75 y.o. female. Miky presents today for a CV recheck. She is taking all of her medications. She does not have any side effects. She does see the facility manager. She is taking Farxiga for her heart. She continues with weight loss. She is not really doing anything different. Her cancer screenings are up-to-date. She did have bariatric surgery. She has not seen the neurologist yet. She has an appointment in July. She still has some nights where she does not sleep well and notices that her memory is not as good the next day. The following portions of the patient's history were reviewed and updated as appropriate: allergies, current medications, past family history, past medical history, past social history, past surgical history, problem list, and medication reconciliation was completed including current medication and post discharge medication. Review of Systems Constitutional: Positive for fatigue and unexpected weight change. HENT: Negative. Respiratory: Negative. Cardiovascular: Negative. Gastrointestinal: Negative. Musculoskeletal: Negative. Neurological: Negative. Psychiatric/Behavioral: Positive for sleep disturbance. Objective Physical Exam Vitals reviewed. Exam conducted with a banana grader present (daughter). Constitutional: General: She is not in acute distress. Appearance: She is obese. She is not ill-appearing. HENT: Head: Normocephalic. Eyes: General: No scleral icterus. Extraocular Movements: Extraocular movements intact. Conjunctiva/sclera: Conjunctivae normal. Neck: Vascular: No carotid bruit. Cardiovascular: Rate and Rhythm: Normal rate and regular rhythm. Heart sounds: Normal heart sounds. No murmur heard. Pulmonary: Effort: Pulmonary effort is normal. No respiratory distress. Breath sounds: Normal breath sounds. No wheezing, rhonchi or rales. Musculoskeletal: Cervical back: Neck supple. Left lower leg: No edema. Lymphadenopathy: Cervical: No cervical adenopathy. Skin: General: Skin is warm. Neurological: General: No focal deficit present. Mental Status: She is alert and oriented to person, place, and time. Psychiatric: Mood and Affect: Mood normal. Behavior: Behavior normal. Thought Content: Thought content normal. Judgment: Judgment normal. Assessment/Plan Miky was seen today for 3 month. Diagnoses and all orders for this visit: Primary hypertension - Comprehensive metabolic panel; Future - Comprehensive metabolic panel Blood pressure at goal. Check CMP Acquired hypothyroidism - Thyroid profile includes TSH FT4; Future - Thyroid profile includes TSH FT4 Check TSH and T4 Hyperlipidemia, unspecified hyperlipidemia type - Lipid profile; Future - Lipid profile Check lipid panel Class 1 obesity due to excess calories with serious comorbidity and body mass index (BMI) of 33.0 to 33.9 in adult She is obese but continues to lose weight. She did have history of bariatric surgery so this is the expected course. She is also take an Farxiga which has weight loss commonly as a side effect. Overall it is beneficial for her health. We did discuss exercise. She really does not have any room in her home for exercise equipment. She said she does do a lot of walking. Patient noted to have elevated BMI and the following intervention(s) were applied: encouragement to exercise and prescribed diet education. History of diabetes mellitus, type II - Hemoglobin A1c; Future - Hemoglobin A1c Check A1c with her history of diabetes. documented in this encounter [facility] 05-26-2025 History of Present illness Narrative Images from the original note were not included. HISTORY OF PRESENT ILLNESS: EST PT Miky Fuentes is an 75 y.o. @ female. EST PT RECHECK (R) KNEE ; DOING WELL XRAYS, 09/02/24 IN EPIC NO MRI NO MDP / PREDNISONE S/P CORTISONE INJ 09/02/24, 01/15/19, 02/11/18 NO PHYSICAL THERAPY NO PAIN MGMT PT NOTES TOLERABLE DISCOMFORT- SOME CRACKING- DENIES SWELLING- GOOD ROM- +TYLENOL TAKING XARELTO ; H/O A-FIB PREVIOUS (L) TKA 11/08/17 - DR MCCLAIN ; NOTES PREVIOUS FALL ON (L) KNEE ~ 2023 - DENIES ANY INCREASED PAIN TO (L) KNEE ALLERGIES: Allergies Allergen Reactions Dust Mite Extract Other Reaction(s): Unknown Ciprofloxacin Rash and Unknown [place] Oil Diarrhea Milk (Cow) Other Increased Mucus [...] ST) 25 mcg, Oral, 2 times daily dapagliflozin (Farxiga) 10 MG Oral Ferrous Sulfate (IRON PO) 1 tablet, Oral, Daily RT fexofenadine (HANNAH) 180 mg, Oral, Daily RT Krill Oil 1000 MG capsule Orally levothyroxine (SYNTHROID, LEVOXYL) 137 mcg, Oral, Every morning lovastatin (MEVACOR) 10 mg, Oral, Daily RT Multiple Vitamins-Minerals (CENTRUM SILVER ADULT 50+ PO) as directed Orally [place]-3 Fatty Acids (OMEGA-3 FISH OIL PO) Oral potassium bicarbonate (Effer-K) 25 MEQ effervescent tablet 25 mEq, Oral sodium bicarbonate 650 mg, Oral, Once tamsulosin (FLOMAX) 0.4 mg, Daily Xarelto 20 mg, Oral, Daily PHYSICAL EXAM: Knee Musculoskeletal Exam Gait Limp: right Inspection Leg length disparity: no discrepancy Right Erythema: none Effusion: mild Edema: none Ecchymosis: none Deformity: none Alignment: varus Palpation Right Right knee palpation is unremarkable. Increased warmth: none Masses: none Crepitus: patellofemoral and medial Tenderness: present Patella: moderate Range of Motion Right Right knee range of motion is normal and full. Active extension: 5 Passive extension: 0 Active flexion: 110 Passive [...] Lymphadenopathy: none Vitals: Body mass index is 32.73 kg/m . Tobacco Use: Low Risk (05/26/2025) Patient History Smoking Tobacco Use: Never Smokeless Tobacco Use: Never Passive Exposure: Not on file Alcohol Use: Not At Risk (02/20/2023) Received from [facility] Frequency of Alcohol Consumption: Never Average Number of Drinks: Patient does not drink Frequency of Binge Drinking: Never IMAGING: Procedures No orders of the defined types were placed in this encounter. ASSESSMENT: ICD-10-CM 1. Acute pain of right knee M25.561 2. Arthritis of right knee M17.11 PLAN: Patient states her right knee is completely asymptomatic today. She states at this point she has lost over 100 pounds. We have discussed restrictions in her home exercise program. We'll see Her back in August 2025 to re-x-ray as it will have been a year since her last x-ray of her right knee. If her symptoms persist or worsen, we may proceed with another cortisone injection. Questions answered in laymen terms at the bedside. The diagnosis, home exercise plan and any ongoing restrictions/ recommendations reviewed. If unable to be reached in office, I recommend evaluation at nearest Emergency Room if any symptoms worsened or new symptoms develop for requiring urgent evaluation. documented in this encounter [facility] 04-07-2025 Hospital Discharge instructions Patient Education 04/07/2025 11:55:09 Percutaneous Nephrolithotomy, Care After Percutaneous Nephrolithotomy, Care After After percutaneous nephrolithotomy, it is common to have: Soreness or pain. A small amount of blood or clear fluid coming from your incision for a few days. Tiredness (fatigue). Some blood in your pee (urine). This will last for a few days. A feeling of needing to pee (urinate) often. It may feel urgent. You may have this if you have a small mesh tube (stent) in the part of your body that connects your bladder to your kidneys (ureter). Follow these instructions at home: Medicines Take tnva-tfq-krxwsxv and prescription medicines only as told by your health care provider. If you were prescribed antibiotics, take them as told by your provider. Do not stop using the antibiotic even if you start to feel better. Ask your provider if the medicine prescribed to you: ?Requires you to avoid driving or using machinery. ?Can cause constipation. You may need to take these actions to prevent or treat constipation: ?Drink enough fluid to keep your pee pale yellow. ?Take waui-akz-zguzjpk or prescription medicines. ?Eat foods that are high in fiber, such as beans, whole grains, and fresh fruits and vegetables. ?Limit foods that are high in fat and processed sugars, such as fried or sweet foods. Incision care Follow instructions from your provider about how to take care of your incision. Make sure you: ?Wash your hands with soap and water for at least 20 seconds before and after you change your bandage (dressing). If soap and water are not available, use hand engineering inspector. ?Change your dressing as told by your provider. ?Leave stitches (sutures), skin glue, or tape strips in place. These skin closures may need to stay in place for 2 weeks or longer. If tape strip edges start to loosen and curl up, you may trim the loose edges. Do not remove tape strips completely unless your provider tells you to do that. Check your incision area every day for signs of infection. Check for: ?More redness, swelling, or pain. ?More fluid or blood. ?Warmth. ?Pus or a bad smell. Do not take baths, swim, or use a hot tub until your provider approves. Ask your provider if you may take showers. You may only be allowed to take sponge baths. Activity Avoid activities that take a lot of effort for as long as told by your provider. Return to your normal activities as told by your provider. Ask your provider what activities are safe for you. General instructions If you were sent home with a soft tube (catheter) or a surgical drain (nephrostomy tube), follow your provider's instructions on how to take care of it. Wear compression stockings as told by your provider. These stockings help to prevent blood clots and reduce swelling in your legs. Do not use any products that contain nicotine or tobacco. These products include cigarettes, chewing tobacco, and vaping devices, such as e-cigarettes. These can delay incision healing after surgery. If you need help quitting, ask your provider. Keep all follow-up visits. If you have a stent, it will need to be removed after 1 2 weeks. Your provider may give you more instructions. Make sure you know what you can and cannot do. Contact a health care provider if: You have a fever. Your incision shows any signs of infection. You lose your appetite, feel nauseous, or vomit. You have a catheter, stent, or drain and the flow of pee stops all of a sudden. Then you have pain in your kidney. Get help right away if: There is a lot of blood in your pee. You have blood clots in your pee. You cannot pee. You have chest pain or trouble breathing. These symptoms may be an emergency. Get help right away. Call 911. Do not wait to see if the symptoms will go away. Do not drive yourself to the hospital. This information is not intended to replace advice given to you by your health care provider. Make sure you discuss any questions you have with your health care provider. Document Revised: 06/14/2023 Document Reviewed: 06/14/2023 [employer] Patient Education 2023 [employer]. 04/07/2025 11:55:06 Percutaneous Nephrolithotomy Percutaneous Nephrolithotomy Percutaneous nephrolithotomy is a procedure to remove kidney stones. Kidney stones are rock-like masses that form inside the kidneys. You may need this procedure if: You have kidney stones that are bigger than 2 cm (0.78 inch) wide. Your kidney stones have an odd shape to them. Other treatments have not worked. You have an infection brought on by the kidney stones. Tell a health care provider about: Any allergies you have. All medicines you are taking, including vitamins, herbs, eye drops, creams, and emxx-zke-qwpvsuh medicines. Any problems you or family members have had with anesthesia. Any bleeding problems you have. Any surgeries you have had. Any medical conditions you have. Whether you are or may be . What are the risks? Your health care provider will talk with you about risks. These may include: Infection. Bleeding. This may include blood in your pee (urine). Allergic reactions to medicines. Damage to other structures or organs. Damage to the kidney. Holes in the kidney. In most cases, these holes heal on their own. Numbness or tingling. Not being able to remove all the stones. If this happens, you may need more treatment. What happens before the procedure? When to stop eating and drinking Follow instructions from your provider about what you may eat and drink. These may include: 8 hours before your procedure ?Stop eating most foods. Do not eat meat, fried foods, or fatty foods. ?Eat only light foods, such as toast or crackers. ?All liquids are okay except energy drinks and alcohol. 6 hours before your procedure ?Stop eating. ?Drink only clear liquids, such as water, clear fruit juice, black coffee, plain tea, and sports drinks. ?Do not drink energy drinks or alcohol. 2 hours before your procedure ?Stop drinking all liquids. ?You may be allowed to take medicines with small sips of water. If you do not follow your provider's instructions, your procedure may be delayed or canceled. Medicines Ask your provider about: Changing or stopping your regular medicines. These include any diabetes medicines or blood thinners you take. Taking medicines such as aspirin and ibuprofen. These medicines can thin your blood. Do not take them unless your provider tells you to. Taking nnkd-thl-etxcqgo medicines, vitamins, herbs, and supplements. Tests You may have tests done. These may include: Blood and pee tests. An electrocardiogram (EKG). This checks how well your heart is working. Imaging studies. These may include an ultrasound or CT scan. They can help find: ?The size and number (stone burden) of the kidney stones. ?Where the kidney stones are. Surgery safety Ask your provider: ?How your surgery site will be marked. ?What steps will be taken to help prevent infection. These steps may include: ?Removing hair at the surgery site. ?Washing skin with a soap that kills germs. ?Receiving antibiotics. General instructions Plan to have a responsible adult: ?Take you home from the hospital. You will not be allowed to drive. ?Care for you for the time you are told. What happens during the procedure? An IV will be inserted into one of your veins. You will be given: ?A sedative. This helps you relax. ?Anesthesia. This keeps you from feeling pain. It will numb certain areas make you fall asleep for surgery. A soft tube (catheter) will be put in your bladder. This will drain pee out of your body during and after the procedure. Your surgeon will make a small incision in your lower back. A tube will be put through the incision into your kidney. Each kidney stone will be removed through this tube. Larger stones may need to be broken up with a beam of light (laser) or other tools. After all of the stones have been removed, your provider may put in another tube to help drain pee. This may be: ?A stent. This is put into the tube that connects the bladder to the kidney (ureter). It helps drain pee from your kidney to your bladder. ?A nephrostomy tube. This is put in your kidney. It comes out through the incision in your lower back. It helps drain pee or any fluid that builds up while your kidney heals. The incision may be closed with stitches (sutures). A bandage (dressing) will be placed over the incision area. The procedure may vary among providers and hospitals. What happens after the procedure? Your blood pressure, heart rate, breathing rate, and blood oxygen level will be monitored until you leave the hospital or clinic. Any tubes will be removed after 1 2 days if there is only a small amount of blood in your pee. This information is not intended to replace advice given to you by your health care provider. Make sure you discuss any questions you have with your health care provider. Document Revised: 06/14/2023 Document Reviewed: 06/14/2023 Lever Patient Education 2023 [employer]. Follow Up Care 01/20/2025 08:42:49 With:MO HAYDEN, Yehuda Haddad, URL Address: [address] [place] [address]- When:Within 6 Month(s) [facility] 04-07-2025 Note Patient Education Urology Percutaneous Nephrolithotomy, Care After After percutaneous nephrolithotomy, it is common to have: ??? Soreness or pain. ??? A small amount of blood or clear fluid coming from your incision for a few days. ??? Tiredness (fatigue). ??? Some blood in your pee (urine). This will last for a few days. ??? A feeling of needing to pee (urinate) often. It may feel urgent. You may have this if you have a small mesh tube (stent) in the part of your body that connects your bladder to your kidneys (ureter). Follow these instructions at home: Medicines ??? Take lott-lul-gtwtmbi and prescription medicines only as told by your health care provider. ??? If you were prescribed antibiotics, take them as told by your provider. Do not stop using the antibiotic even if you start to feel better. ??? Ask your provider if the medicine prescribed to you: ? Requires you to avoid driving or using machinery. ? Can cause constipation. You may need to take these actions to prevent or treat constipation: ? Drink enough fluid to keep your pee pale yellow. ? Take jbtj-zsq-rrbjkan or prescription medicines. ? Eat foods that are high in fiber, such as beans, whole grains, and fresh fruits and vegetables. ? Limit foods that are high in fat and processed sugars, such as fried or sweet foods. Incision care ??? Follow instructions from your provider about how to take care of your incision. Make sure you: ? Wash your hands with soap and water for at least 20 seconds before and after you change your bandage (dressing). If soap and water are not available, use hand engineering inspector. ? Change your dressing as told by your provider. ? Leave stitches (sutures), skin glue, or tape strips in place. These skin closures may need to stay in place for 2 weeks or longer. If tape strip edges start to loosen and curl up, you may trim the loose edges. Do not remove tape strips completely unless your provider tells you to do that. ??? Check your incision area every day for signs of infection. Check for: ? More redness, swelling, or pain. ? More fluid or blood. ? Warmth. ? Pus or a bad smell. ??? Do not take baths, swim, or use a hot tub until your provider approves. Ask your provider if you may take showers. You may only be allowed to take sponge baths. Activity ??? Avoid activities that take a lot of effort for as long as told by your provider. ??? Return to your normal activities as told by your provider. Ask your provider what activities are safe for you. General instructions ??? If you were sent home with a soft tube (catheter) or a surgical drain (nephrostomy tube), follow your provider's instructions on how to take care of it. ??? Wear compression stockings as told by your provider. These stockings help to prevent blood clots and reduce swelling in your legs. ??? Do not use any products that contain nicotine or tobacco. These products include cigarettes, chewing tobacco, and vaping devices, such as e-cigarettes. These can delay incision healing after surgery. If you need help quitting, ask your provider. ??? Keep all follow-up visits. If you have a stent, it will need to be removed after 1?2 weeks. Your provider may give you more instructions. Make sure you know what you can and cannot do. Contact a health care provider if: ??? You have a fever. ??? Your incision shows any signs of infection. ??? You lose your appetite, feel nauseous, or vomit. ??? You have a catheter, stent, or drain and the flow of pee stops all of a sudden. Then you have pain in your kidney. Get help right away if: ??? There is a lot of blood in your pee. ??? You have blood clots in your pee. ??? You cannot pee. ??? You have chest pain or trouble breathing. These symptoms may be an emergency. Get help right away. Call 911. ??? Do not wait to see if the symptoms will go away. ??? Do not drive yourself to the hospital. This information is not intended to replace advice given to you by your health care provider. Make sure you discuss any questions you have with your health care provider. Document Revised: 06/14/2023 Document Reviewed: 06/14/2023 Lever Patient Education ? 2023 [employer]. Percutaneous Nephrolithotomy Percutaneous nephrolithotomy is a procedure to remove kidney stones. Kidney stones are rock-like masses that form inside the kidneys. You may need this procedure if: ??? You have kidney stones that are bigger than 2 cm (0.78 inch) wide. ??? Your kidney stones have an odd shape to them. ??? Other treatments have not worked. ??? You have an infection brought on by the kidney stones. Tell a health care provider about: ??? Any allergies you have. ??? All medicines you are taking, including vitamins, herbs, eye drops, creams, and hsqn-csz-rcugdqg medicines. ??? Any problems you or family members have had with anesthesia. ??? Any bleeding problems you have. ??? Any surgeries you have had. ?? (more content not included)... [facility] 04-06-2025 History of Present illness Narrative Subjective Patient ID: Miky Fuentes is a 74 y.o. female. Miky presents today to discuss her MRI and lab results for her impaired cognition. Her daughter is present. She forgets after a few hours of what was discussed. She will repeat herself. She is paying the bills. She is not late on any bills. She doesn't drive as much but still does. She does not drive to a new place though. Her daughter helps her with medication set up. She did have a cognitive evaluation a couple years ago and felt there might be some ADD component to it and the patient agreed but the daughter disagreed. She thinks there is more to it then just ADD. Follow-up The following portions of the patient's history were reviewed and updated as appropriate: allergies, current medications, past family history, past medical history, past social history, past surgical history, problem list, and medication reconciliation was completed including current medication and post discharge medication. Review of Systems Constitutional: Negative. HENT: Negative. Eyes: Negative. Respiratory: Negative. Cardiovascular: Negative. Gastrointestinal: Negative. Endocrine: Negative. Genitourinary: Negative. Musculoskeletal: Negative. Skin: Negative. Allergic/Immunologic: Negative. Neurological: Negative. Hematological: Negative. Psychiatric/Behavioral: Positive for confusion and decreased concentration. Objective Physical Exam Vitals reviewed. Exam conducted with a banana grader present (Young Limon MS 3). Constitutional: General: She is not in acute distress. Cardiovascular: Rate and Rhythm: Normal rate and regular rhythm. Heart sounds: Normal heart sounds. No murmur heard. Pulmonary: Effort: Pulmonary effort is normal. No respiratory distress. Breath sounds: Normal breath sounds. No wheezing, rhonchi or rales. Musculoskeletal: Cervical back: Neck supple. Lymphadenopathy: Cervical: No cervical adenopathy. Skin: General: Skin is warm. Neurological: General: No focal deficit present. Mental Status: She is alert and oriented to person, place, and time. Psychiatric: Mood and Affect: Mood normal. Behavior: Behavior normal. Thought Content: Thought content normal. Judgment: Judgment normal. Assessment/Plan Miky was seen today for follow-up. Diagnoses and all orders for this visit: Cognitive impairment - Ambulatory referral to Neurology ([facility]); Future We will get a consultation with neurology. Untreated sleep apnea may be playing a role in her cognitive dysfunction. Minimal cognitive impairment As above. Attention or concentration deficit Consultation reviewed from 2 years ago. ADD maybe playing a role in her cognition. Daughter does not believe so. Sleep apnea, unspecified type Neurology maybe able to address the sleep apnea issue as well documented in this encounter [facility] 02-03-2025 Note DC Electrophysiology Consult Note DC Cardiology - [facility] Reason for visit: Afib/ Chest pain HPI: Miky Fuentes is a 74 y.o. year old with past medical history of atrial fibrillation, nonischemic cardiomyopathy, hypertension, hyperlipidemia, obesity s/p bariatric surgery and hypothyroidism was previously seen by Dr. ROCHA and dr RAMOS. She was previously noted to have nonsustained VT at the time of her ureteral stent placement and an echocardiogram that was subsequently done showed normal EF with event monitor revealing presence of 14 beat run of ventricular tachycardia. Study with her EKG showed evidence of PVCs. A Lexiscan nuclear stress test on 10-21 at [facility] was uninterpretable due to the EKG portion but there was a fixed defect of the anterior inferior wall. She had an FFR CT study done on 11/27/2024 which did not reveal any significant lesions. She had repeat admission at [facility] for chest pain. With regard to her history of atrial fibrillation she has been placed on Multaqin the past but since bariatric surgery and ~100lbs weight loss, no Afib felt and has been maintaining sinus rhythm PMH: Past Medical History: Diagnosis Date Abnormal ECG Arrhythmia Atrial fibrillation (CMS/HCC) Chronic kidney disease Diabetes mellitus (CMS/HCC) Hyperlipidemia Hypertension Hypothyroidism Obesity PSH: Past Surgical History: Procedure Laterality Date BARIATRIC SURGERY SH: Social Determinants of Health Tobacco Use: Low Risk (02/03/2025) Patient History Smoking Tobacco Use: Never Smokeless Tobacco Use: Never Passive Exposure: Not on file Alcohol Use: Not At Risk (02/20/2023) Received from [facility] AUDIT-C Frequency of Alcohol Consumption: Never Average Number of Drinks: Patient does not drink Frequency of Binge Drinking: Never Financial Resource Strain: Low Risk (02/20/2023) Received from [facility] Overall Financial Resource Strain (CARDIA) Difficulty of Paying Living Expenses: Not hard at all Food Insecurity: No Food Insecurity (01/19/2025) Received from [facility] Hunger Screening Within the past 12 months we worried whether our food would run out before we got money to buy more.: Never True Within the past 12 months the food we bought just didn't last and we didn't have money to get more.: Never True Transportation Needs: No Transportation Needs (02/20/2023) Received from [facility] PRAPARE - Transportation Lack of Transportation (Medical): No Lack of Transportation (Non-Medical): No Physical Activity: Sufficiently Active (06/21/2023) Received from [facility] Exercise Vital Sign Days of Exercise per Week: 7 days Minutes of Exercise per Session: 30 min Stress: No Stress Concern Present (02/20/2023) Received from [facility] [place] [employer] - Occupational Stress Questionnaire Feeling of Stress : Only a little Social Connections: Socially Isolated (11/25/2024) Received from [facility] Social Connection and Isolation Panel [NHANES] Frequency of Communication with Friends and Family: More than three times a week Frequency of Social Gatherings with Friends and Family: Once a week Attends Jehovah[employer] Witness Services: Never Active Member of Clubs or Organizations: No Attends Club or Organization Meetings: Never Marital Status: Intimate Partner Violence: Not on file Depression: Not at risk (01/19/2025) Received from [facility] PHQ-2 Total Score: 0 Housing Stability: Low Risk (02/20/2023) Received from [facility] Housing Instability Are you worried or concerned that in the next two months you may not have stable housing that you own, rent or stay in as a part of a household?: No Utilities: Not At Risk (11/25/2024) Received from [facility] Utilities Threatened with loss of utilities: No Health Literacy: Not on file Allergies: Allergies Allergen Reactions Ciprofloxacin Rash and Unknown Sulfa (Sulfonamide Antibiotics) Rash and Unknown Weight: 91.2kg Visit Vitals BP 119/65 (BP Location: Right arm, Patient Position: Sitting) Pulse 50 Ht 1.626 m (5' 4 ) Wt 91.2 kg (201 lb) SpO2 99% BMI 34.50 kg/m??? Smoking Status Never BSA 2.03 m??? Meds: Current Outpatient Medications on File Prior to Visit Medication Sig Dispense Refill acetaminophen (Tylenol) 325 mg tablet Take 325 mg by mouth every 4 (four) hours. allopurinol (Zyloprim) 300 mg tablet Take 300 mg by mouth in the morning. calcium carbonate 600 mg calcium (1,500 mg) tablet in the morning. dapagliflozin propanediol (Farxiga) 10 mg Take 1 tablet (10 mg) by mouth once daily as directed. 30 tablet 11 Effer-K 25 mEq effervescent tablet Take 25 mEq by mouth once daily as directed. fexofenadine (Hannah) 180 mg tablet Take 180 mg by mouth in the morning. levothyroxine (Sy (more content not included)... [facility] 01-19-2025 History of Present illness Narrative Subjective Patient ID: Miky Fuentes is a 74 y.o. female. Doesn't feel safe driving to a new city or drive far. The following portions of the patient's history were reviewed and updated as appropriate: allergies, current medications, past family history, past medical history, past social history, past surgical history, problem list, and medication reconciliation was completed including current medication and post discharge medication. Review of Systems Constitutional: Negative. Respiratory: Negative. Cardiovascular: Negative. Gastrointestinal: Negative. Genitourinary: Positive for hematuria. Musculoskeletal: Positive for arthralgias and back pain. Neurological: Negative. Psychiatric/Behavioral: Negative. Objective Physical Exam Vitals reviewed. Exam conducted with a banana grader present (Brodie Holt MS 3). Constitutional: General: She is not in acute distress. Appearance: Normal appearance. She is obese. She is not ill-appearing. HENT: Head: Normocephalic. Neck: Vascular: No carotid bruit. Cardiovascular: Rate and Rhythm: Normal rate and regular rhythm. Heart sounds: Normal heart sounds. No murmur heard. Pulmonary: Effort: Pulmonary effort is normal. No respiratory distress. Breath sounds: Normal breath sounds. No wheezing, rhonchi or rales. Musculoskeletal: Cervical back: Neck supple. Lymphadenopathy: Cervical: No cervical adenopathy. Neurological: General: No focal deficit present. Mental Status: She is disoriented. Cranial Nerves: Cranial nerves 2-12 are intact. Sensory: Sensation is intact. Motor: Motor function is intact. Coordination: Coordination is intact. Comments: Did not know the date Positive palmomental test. Negative snout, bruit, grasp and glabellar tap reflexes. Psychiatric: Mood and Affect: Mood normal. Behavior: Behavior normal. Thought Content: Thought content normal. Judgment: Judgment normal. Assessment/Plan Miky was seen today for memory concerns. Diagnoses and all orders for this visit: Cognitive impairment - Comprehensive metabolic panel; Future - Vitamin B12; Future - POCT urinalysis dipstick only - Cancel: MR brain without contrast; Future - MR brain without contrast; Future - Urine culture (clean catch); Future Check labs and MRI. She did have a cognitive evaluation my neuro psychologist 2022 which suggested more of a ADD problem. Memory loss Check labs and MRI Anemia, unspecified type - CBC auto differential; Future Recheck CBC Acquired hypothyroidism Last TSH was within 1 year. Not sure if insurance would cover another 1 this year and so I offered for her to have it done but she would need to sign a waiver and she declined. Gross hematuria - Urine culture (clean catch); Future Send for urine culture. Follow up with Urology as directed. Attention or concentration deficit Discussed treatment options but she declined at this time after discussing risks and benefits of medications. Paroxysmal atrial fibrillation (CMS-HCC) Stable. Continue medications Non-ischemic cardiomyopathy (CMS-HCC) Stable. Continue current regimen Morbid obesity (CMS-HCC) Noted documented in this encounter [facility] 11-25-2024 History of Present illness Narrative Subjective [...] Do you have a durable power of tax attorney?: Yes Cognitive Screening Do you have [...] year (around 11/25/2025). documented in this encounter [facility] 11-04-2024 History of Present illness Narrative Images [...] NOTES PREVIOUS FALL ON (L) KNEE ~ CHASE 2024 - DENIES ANY INCREASED PAIN TO (L) KNEE ALLERGIES: Allergies Allergen Reactions Dust Mite Extract Other Reaction(s): Unknown Ciprofloxacin Rash and Unknown [place] Oil Diarrhea Milk (Cow) Other Increased Mucus [...] SILVER ADULT 50+ PO) as directed Orally [place]-3 Fatty Acids (OMEGA-3 FISH OIL PO) Oral [...] Use: Not At Risk (02/20/2023) Received from [facility], [facility] AUDIT-C Frequency of Alcohol Consumption: Never Average [...] requiring urgent evaluation. documented in this encounter [facility] 10-17-2024 Note [facility] Note Reason for cardiology consult: Chief Complaint: Occasional palpitations HPI: Miky Fuentes is a 74 y.o. female with history of paroxysmal atrial fibrillation, nonischemic cardiomyopathy, asymptomatic sinus bradycardia, hypertension, hyperlipidemia, obesity status post bariatric surgery, hypothyroidism. She was followed previously by [facility] cardiology in [place]. Recently she was seen in [facility] on 09/12/[address] Resendez after she [...] changes Lexiscan nuclear stress test 09/29/2024 at [facility] next EKG portion An road design engineer uninterpretable baseline rhythm due to large amount [...] run of nonsu (more content not included)... [facility] 10-13-2024 History of Present illness Narrative Subjective [...] alert. Assessment/Plan Miky was seen today for [facility] dec 1-3 tbh. Diagnoses and all orders [...] from weight loss. documented in this encounter [facility] 09-28-2024 Miscellaneous Notes Contract: [id number] Javier travis critical EKG report Relayed info to Dr Anaya on cell and transferred documented in this encounter [facility] 09-28-2024 Telephone encounter Note Contract: [id number] Javier travis critical EKG report [facility] 09-28-2024 Telephone encounter Note Relayed info to Dr Anaya on cell and transferred [facility] 09-03-2024 History of Present illness Narrative Patient has severe OA of the knee. Handicap parking placard printed documented in this encounter [facility] 09-02-2024 History of Present illness Narrative Associated [...] KNEE TODAY EPIC 09/02/24 XRAYS 03/26/24 IN EPIC NO MRI NO MDP / [...] SILVER ADULT 50+ PO) as directed Orally [place]-3 Fatty Acids (OMEGA-3 FISH OIL PO) Oral [...] Use: Not At Risk (02/20/2023) Received from [facility], [facility] AUDIT-C Frequency of Alcohol Consumption: Never Average [...] requiring urgent evaluation. documented in this encounter [facility] 09-02-2024 Miscellaneous Notes Patient called to renew her handicap placard. Can you please get this ready for patient to turkey picker. Okay, it is ready documented in this encounter [facility] 09-02-2024 Telephone encounter Note Patient called to renew her handicap placard. Can you please get this ready for patient to turkey picker. [facility] 09-02-2024 Telephone encounter Note Okay, it is ready [facility] 08-28-2024 History of Present illness Narrative Subjective [...] once daily., Disp: 90 tablet, Rfl: 3 wflbaxae-bmq-glly-FA-vit K-lut (Centrum Silver Women) 8 mg iron-400 mcg-50 mcg tablet, Take 1 tablet by mouth once daily., Disp: , Rfl: omega-3 fatty acids-fish oil (One-Per-Day [place]-3) 684-1,200 mg capsule, Take 1 capsule (1,200 [...] By signing my name below, Hollie Villa LPN , [employer] attest that this documentation has been prepared [...] discussion and plan. documented in this encounter [facility] Work Phone: 08-28-2024 Instructions Hollie Gleason [...] up 7 months documented in this encounter [facility] Work Phone: 08-18-2024 History of Present [...] gradually lost weight documented in this encounter [facility] 07-29-2024 Evaluation + Plan note Diagnostic Tests [facility] Fish [facility] Urine Cyto ([facility]) 07/29/24 [facility] 07-15-2024 Hospital Discharge instructions Patient Education 07/15/2024 15:39:15 Kidney Stones, Ildk-eb-Mxbe Kidney Stones Kidney stones are rock-like masses [...] Follow these instructions at home: Medicines Take kopp-qix-gagcghj and prescription medicines only as told by [...] provider. Document Revised: 06/08/2023 Document Reviewed: 06/08/2023 Lever Patient Education 2023 [employer]. 07/15/2024 15:39:14 Hematuria, Adult Hematuria, Adult Hematuria [...] Follow these instructions at home: Medicines Take oprm-jte-pxduvob and prescription medicines only as told by [...] or the blood stops without treatment. Take ooxz-sau-qmxhoaa and prescription medicines only as told by your health care provider. Drink enough fluid to keep your urine pale yellow. This information is not intended to replace advice given to you by your health care provider. Make sure you discuss any questions you have with your health care provider. Document Revised: 06/15/2021 Document Reviewed: 06/15/2021 Lever Patient Education 2023 [employer]. Follow Up Care 07/03/2024 12:40:23 With:MO HAYDEN, Yehuda Haddad, URL Address: [address] [place], [place] [id number]- When: Unknown Comments:pending review of imaging [facility] 07-15-2024 Note Patient Education Urology Kidney Stones [...] these instructions at home: Medicines ? Take wlue-mrs-ceaogwy and prescription medicines only as told by [...] provider. Document Revised: 06/08/2023 Document Reviewed: 06/08/2023 Lever Patient Education ? 2023 [employer] Hematuria, Adult Hematuria is blood in [...] identify the cause (more content not included)... [facility] 07-15-2024 Evaluation + Plan note Diagnostic Tests PendingUrine Cytology ([facility]) 07/15/24 [facility] 03-06-2024 History of Present illness Narrative [...] once daily., Disp: 90 tablet, Rfl: 3 agqosilb-dgc-wpte-FA-vit K-lut (Centrum Silver Women) 8 mg iron-400 mcg-50 mcg tablet, Take 1 tablet by mouth once daily., Disp: , Rfl: omega-3 fatty acids-fish oil (One-Per-Day [place]-3) 684-1,200 mg capsule, Take 1 capsule (1,200 [...] my name below, I, Kimberley HOLDER , Ольгаibe attest that this documentation has been prepared [...] discussion and plan. documented in this encounter [facility] Work Phone: 03-06-2024 Instructions Ivett [...] of your visit. documented in this encounter [facility] Work Phone: 02-20-2024 Miscellaneous Notes 02/17 received HST order 02/19 Scheduled HST at [facility] 5, 7:30pm Confirmation mailed Routed to Dr. Hussein for approval Medicare/[facility] HST order and 02/17 [place] notes in epic DIRECT REFFERAL ; NEEDS APPROVAL documented in this encounter [facility] 02-20-2024 Telephone encounter Note 02/17 received HST order 02/19 Scheduled HST at [facility] 03/17, 7:30pm Confirmation mailed Routed to Dr. Hussein for approval Medicare/[facility] HST order and 02/17 [place] notes in epic [facility] 02-20-2024 Telephone encounter Note DIRECT REFFERAL ; NEEDS APPROVAL [facility] 02-18-2024 History of Present illness Narrative Subjective [...] (BMI) of 37.0 to 37.9 in adult (CMS-[facility]) She is still obese. Diet exercise and weight loss discussed. She would benefit from weight loss. Patient noted to have elevated BMI and the following intervention(s) were applied: encouragement to exercise and prescribed diet education. Other orders - fexofenadine (HANNAH) 180 mg tablet; Take 1 tablet (180 mg total) by mouth in the morning. - gegdu-dz-1-lcp-vru-ekchddy-ast (KRILL OIL) 1,160-481-57-80 mg capsule; Take 1 capsule by mouth in the morning. documented in this encounter [facility] 09-05-2022 Hospital Discharge instructions Patient Education 09/05/2022 [...] With:Yehuda HASSAN Address: [facility] [address] [place] [address]- Business (1) When:03/05/2023 12:06:31 [facility] 06-30-2022 Hospital Discharge instructions Patient Education 06/30/2022 12:01:44 Kidney Stones, Xxsw-wt-Jvab Kidney Stones Kidney stones are rock-like masses [...] Follow these instructions at home: Medicines Take mwtk-bgu-sdqqagn and prescription medicines only as told by [...] 04/02/2009 Document Revised: 03/02/2020 Document Reviewed: 03/02/2020 [employer] Patient Education 2020 [employer]. Follow Up Care 12/28/2021 15:15:51 With:Yehuda HASSAN MD, URL Address: [address] [place] [address]- When: Unknown [facility] Evaluation + Plan note Future Appointments Appointment Date:03/02/2023 11:00:00 AM Scheduled Provider:Yehuda HASSAN MD Location:[facility] Appointment Type:URO Office Visit [facility] Evaluation + Plan note Future Appointments Appointment Date:03/02/2023 11:00:00 AM Scheduled Provider:Yehuda HASSAN MD Location:[facility] Appointment Type:URO Office Visit Diagnostic Tests PendingUrine Culture 08/11/22 [facility] Evaluation + Plan note Future Appointments Appointment Date:03/02/2023 11:00:00 AM Scheduled Provider:[facility] HASSAN MD [facility] Office Visit Diagnostic Tests PendingUroVysion Fish and Urine Cyto ([facility]) 09/05/22 [facility] Evaluation + Plan note Future Appointments Appointment Date:05/16/2024 10:45:00 AM Scheduled Provider:Yehuda HASSAN MD Location:[facility] Appointment Type:URO Office Visit [facility] Evaluation + Plan note Future Appointments Appointment Date:05/20/2024 11:00:00 AM Scheduled Provider:RAAD Back APRN, [place] [facility] Location:[facility] Appointment Type:URO Office Visit [facility] Evaluation + Plan note Future Appointments Appointment Date:06/10/2024 03:00:00 PM Scheduled Provider:RAAD Back APRN, [place] Location:[facility] Appointment Type:URO Office Visit [facility] Evaluation + Plan note Future Appointments Appointment Date:07/01/2024 02:30:00 PM Scheduled Provider:RAAD Back APRN, [place] Location:[facility] Appointment Type:URO Office Visit [facility] Evaluation + Plan note Future Appointments Appointment Date:10/19/2025 10:30:00 AM Scheduled Provider:Yehuda HASSAN MD Location:[facility] Appointment Type:URO Office Visit Future Scheduled TestsXR Abdomen 1 View 10/07/25 [facility] Evaluation note Diagnosis Mixed hyperlipidemia- Primary Paroxysmal atrial fibrillation (Multi) Atrial fibrillation Non-ischemic cardiomyopathy (Multi) Other primary cardiomyopathies Never smoked tobacco BMI 36.0-36.9,adult Hyperlipidemia, unspecified hyperlipidemia type documented in this encounter [facility] Work Phone: Evaluation note* Diagnosis Paroxysmal atrial fibrillation (Multi)- Primary Atrial fibrillation Non-ischemic cardiomyopathy (Multi) Other primary cardiomyopathies Mixed hyperlipidemia Sinus bradycardia Other specified cardiac dysrhythmias High risk medication use Class 2 obesity BMI 35.0-35.9,adult Never smoked tobacco documented in this encounter [facility] Work Phone: Evaluation note* Diagnosis Arthritis of right knee- Primary Acute pain of right knee Chondromalacia, patella, right [facility] Diagnosis Arthritis of right knee- Primary Acute pain of right knee Chondromalacia, patella, right documented in this encounter [facility]* Diagnosis Proteinuria, unspecified [facility] Medicare annual wellness visit, subsequent- Primary Screening for depression [facility] Diagnosis 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- Primary Minimal cognitive impairment Sleep apnea, unspecified type Acquired hypothyroidism Unspecified hypothyroidism Class 2 severe obesity due to excess calories with serious comorbidity and body mass index (BMI) of 37.0 to 37.9 in adult ([facility]) [facility] Diagnosis Primary hypertension- Primary Unspecified essential hypertension Hyperlipidemia, unspecified hyperlipidemia type Acquired hypothyroidism Unspecified hypothyroidism Osteoarthritis of multiple joints, unspecified osteoarthritis type 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 and body mass index (BMI) of 36.0 to 36.9 in adult [facility] Diagnosis Nonsustained ventricular tachycardia (CMS-HCC)- Primary Non-ischemic cardiomyopathy (CMS-HCC) Other primary cardiomyopathies Paroxysmal atrial fibrillation ([facility]-HCC) Atrial fibrillation Primary hypertension Unspecified essential hypertension Need for immunization against influenza Need for prophylactic vaccination and inoculation against influenza 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 and body mass index (BMI) of 35.0 to 35.9 in adult [facility] Diagnosis Cognitive impairment- Primary Unspecified persistent mental disorders due to conditions classified elsewhere Memory loss Anemia, unspecified type Acquired hypothyroidism Unspecified hypothyroidism Gross hematuria Attention or concentration deficit Paroxysmal atrial fibrillation (CMS-HCC) Atrial fibrillation Non-ischemic cardiomyopathy (CMS-HCC) Other primary cardiomyopathies Morbid obesity (CMS-HCC) Morbid obesity [facility] Diagnosis Memory loss- Primary Cognitive impairment Unspecified persistent mental disorders due to conditions classified elsewhere [facility] Diagnosis Cognitive impairment- Primary Unspecified persistent mental disorders due to conditions classified elsewhere Minimal cognitive impairment Attention or concentration deficit Sleep apnea, unspecified type [facility] Diagnosis Acute pain of right knee- Primary Arthritis of right knee [facility] Diagnosis Primary hypertension- Primary Unspecified essential hypertension Acquired hypothyroidism Unspecified hypothyroidism Hyperlipidemia, unspecified hyperlipidemia type Class 1 obesity due to excess calories with serious comorbidity and body mass index (BMI) of 33.0 to 33.9 in adult History of diabetes mellitus, type II [facility] NarrativePatient returns in follow-up of problems as noted. In the interim she is done well. She has none of the symptoms of cardiomyopathy that preceded her original diagnosis of heart failure. With guideline directed therapy in the mormon of maintenance of sinus rhythm her symptoms [...] merits of diet exercise and weight loss. [facility] [employer] DO Work Phone: History of Present illness [...] the merits of diet and weight loss. [facility] [employer] DO Work Phone: Hospital course Narrative No data available for this section [facility] Hospital Discharge instructions No data available for this section [facility] InstructionsNot on filedocumented in this encounter [facility] [...] available for this section [facility] Chief Complaint * I am doing ok * MIKY FUENTES is being seen for a 6 month follow-up of atrial fibrillation. She is ambulatory with steady gait. Last evaluated in clinic by Dr. Galol December 2020. * Multaq is becoming cost [...] Connor Anaya, DO [address], [place] [address] Referral ID Status Reason Start Date Expiration Date V isits Requested Visits Authorized [id number] Pending Review 02/18/2024 02/17/2025 1 1 Specialty Diagnoses / Procedures Referred By Contac t Referred To Contact Diagnoses Paroxysmal atrial fibrillation (Multi) Procedures ECG 12 Lead Nick Richardson MD [address] [place] [address] 2, [address] [address] Referral ID Status Reason Start Date Expiration Date V isits Requested Visits Authorized [id number] Authorized 03/06/2024 03/06/2025 1 1 Specialty Diagnoses / Procedures Referred By Contac t Referred To Contact Cardiology Diagnoses Non-ischemic cardiomyopathy (Multi) Procedures Follow Up In Cardiology Nick Richardson MD [address] [facility] 2, [address] [address] Carmen Lopez MD [address] [facility] 2, [address] [address] Referral ID Status Reason Start Date Expiration Date V isits Requested Visits Authorized [id number] Authorized 03/06/2024 03/06/2025 1 1 Additional Source Comments INFORMATION SOURCE (unrecogn ized section and content) DATE CREATED AUTHOR 06/26/2022 [facility] DATE CREATED AUTHOR AUTHOR'S ORGANIZ ATION 12/07/2022 [facility] DATE CREATED AUTHOR AUTHOR'S ORGANIZ ATION 12/07/2022 [employer] DATE CREATED AUTHOR AUTHOR'S ORGANIZ ATION 03/09/2023 [facility] DATE CREATED AUTHOR AUTHOR'S ORGANIZ ATION 07/17/2024 [place] [facility] ical Center DATE CREATED AUTHOR AUTHOR'S ORGANIZ ATION 09/19/2024 [place] [facility] DATE CREATED AUTHOR AUTHOR'S ORGANIZ ATION 09/25/2024 [facility] DATE CREATED AUTHOR AUTHOR'S ORGANIZ ATION 01/21/2025 [facility] DATE CREATED AUTHOR AUTHOR'S ORGANIZ ATION 02/04/2025 [facility] DATE CREATED AUTHOR AUTHOR'S ORGANIZ ATION 03/25/2025 [facility] DATE CREATED AUTHOR AUTHOR'S ORGANIZ ATION 04/10/2025 [place] [facility] ical Center DATE CREATED AUTHOR AUTHOR'S ORGANIZ ATION 05/27/2025 [facility] DATE CREATED AUTHOR AUTHOR'S ORGANIZ ATION 07/11/2025 [facility] Ambulatory [facility] Care Team (unrecognized sect ion and content) Assistant Women'S Tennis Coach Relationship Specialty Start Date End Date Connor Anaya DO [address], [place] [address] PCP - General 10/29/19 Assistant Women'S Tennis Coach Relationship Specialty Start Date End Date Connor Anaya DO PCP - General 10/29/19 Assistant Women'S Tennis Coach Relationship Specialty Start Date End Date Connor Anaya MD [address], [place] [address] PCP - General Family Medicine 03/26/24 Assistant Women'S Tennis Coach Relationship Specialty Start Date End Date Connor Anaya MD [address] [place] [address] PCP - General Family Medicine 03/26/24 Assistant Women'S Tennis Coach Relationship Specialty Start Date End Date Connor Anaya MD [address] [place] [address] PCP - General Family Medicine 03/26/24 Assistant Women'S Tennis Coach Relationship Specialty Start Date End Date Connor Anaya MD [address] [place] [address] PCP - General Family Medicine 03/26/24 Assistant Women'S Tennis Coach Relationship Specialty Start Date End Date Connor Anaya DO [address] [place] [address] PCP - General Family Medicine 11/13/22 Desiree Jansen [facility] Nurse - [employer] 07/01/24 Assistant Women'S Tennis Coach Relationship Specialty Start Date End Date Connor Anaya DO [address] [place] [address] PCP - General Family Medicine 11/13/22 Yuni Borja [facility] Nurse - [employer] 11/20/24 Assistant Women'S Tennis Coach Relationship Specialty Start Date End Date Connor Anaya DO [address] [place] [address] PCP - General Family Medicine 11/13/22 Assistant Women'S Tennis Coach Relationship Specialty Start Date End Date Connor Anaya DO [address] [place] [address] PCP - General Family Medicine 11/13/22 Assistant Women'S Tennis Coach Relationship Specialty Start Date End Date Connor Anaya DO [address], [place] [address] PCP - General Family Medicine 11/13/22 Assistant Women'S Tennis Coach Relationship Specialty Start Date End Date Connor Anaya DO [address], [place] [address] PCP - General Family Medicine 11/13/22 Assistant Women'S Tennis Coach Relationship Specialty Start Date End Date DebbiekeylaConnor nj DO [address], [place] [address] PCP - General Family Medicine 11/13/22 Desiree Jansen [facility] Nurse - [employer] 07/01/24 Assistant Women'S Tennis Coach Relationship Specialty Start Date End Date Connor Anaya DO [address], [place] [address] PCP - General Family Medicine 11/13/22 Desiree Jansen [facility] Nurse - [employer] 07/01/24 Assistant Women'S Tennis Coach Relationship Specialty Start Date End Date DebbiekeylaConnor nj [address], [place] [address] PCP - General Family Medicine 11/13/22 Desiree Jansen [facility] Nurse - [employer] 07/01/24 Assistant Women'S Tennis Coach Relationship Specialty Start Date End Date DebbiekeylaConnor nj [address], [place] [address] PCP - General Family Medicine 11/13/22 Desiree Jansen [facility] Nurse - [employer] 07/01/24 Assistant Women'S Tennis Coach Relationship Specialty Start Date End Date MarkelConnor [address], [place] [address] PCP - General Family Medicine 11/13/22 Desiree Jansen [facility] Nurse - [employer] 07/01/24 Assistant Women'S Tennis Coach Relationship Specialty Start Date End Date Connor Anaya DO [address], [place] [address] PCP - General Family Medicine 11/13/22 Yuni Rehmanndkishor [facility] Nurse - [employer] 11/20/24 Assistant Women'S Tennis Coach Relationship Specialty Start Date End Date Connor Anaya DO [address], [place] [address] PCP - General Family Medicine 11/13/22 Yuni Alasandro [facility] Nurse - [employer] 11/20/24 Assistant Women'S Tennis Coach Relationship Specialty Start Date End Date Connor Anaya DO [address], [place] [address] PCP - General Family Medicine 11/13/22 Yuni Alasandro [facility] Nurse - [employer] 11/20/24 Assistant Women'S Tennis Coach Relationship Specialty Start Date End Date Connor Anaya DO [address], [place] [address] PCP - General Family Medicine 11/13/22 Yuni Borja [facility] Nurse - [employer] 11/20/24 Assistant Women'S Tennis Coach Relationship Specialty Start Date End Date Connor Anaya MD [address], [place] [address] PCP - General Family Medicine 02/19/25 Assistant Women'S Tennis Coach Relationship Specialty Start Date End Date Connor Anaya MD [address], [place] [address] PCP - General Family Medicine 02/19/25 Assistant Women'S Tennis Coach Relationship Specialty Start Date End Date Connor Anaya DO [address], [place] [address] PCP - General Family Medicine 11/13/22 Yuni Borja [facility] Nurse - [employer] 11/20/24 Reason for Visit (unrecogniz ed section and content) Reason Comments Follow-up 2mo Specialty Diagnoses / Procedures Referred By Contac t Referred To Contact Cardiology Diagnoses Paroxysmal atrial fibrillation (Multi) Procedures Follow Up In Cardiology Nick Richardson MD [address] [place] [address] 2, [address] [address] Referral ID Status Reason Start Date Expiration Date V isits Requested Visits Authorized [id number] Authorized 12/24/2023 12/23/2024 1 1 Reason Comments Follow-up 5m Specialty Diagnoses / Procedures Referred By Contac t Referred To Contact Cardiology Diagnoses Non-ischemic cardiomyopathy (Multi) Procedures Follow Up In Cardiology Nick Richardson MD Ibrahim, Carmen Dutton MD [address] [facility] 2, [address] [address] Phone: tel: fax: Referral ID Status Reason Start Date Expiration Date V isits Requested Visits Authorized [id number] Authorized 03/06/2024 03/06/2025 1 1 Reason Comments Pain Reason Comments Pain Reason Onset Date Comments Med Refill 11/14/2024 Reason Comments maw Reason Comments Med Refill Reason Comments Follow-up Reason Onset Date Comments Sleep Lab 02/20/2024 HST Reason Comments Follow-up Reason Onset Date Comments critical EKG 09/28/2024 Reason Comments TCM DEC 1-3 [facility] Reason Comments memory concerns Reason Comments Follow-up From the MRI of her head March [facility] done at [facility]. Reason Comments 3 month FOR RECORDS PERTAINING TO PATIENTS WHO ARE [...] BE BASED ON THE PRIMARY CLINICAL RECORDS. [facility]. provides no warranty or guarantee of the accuracy or completeness of information in this document.
[2025-08-04 04:07] LABS: Vitamin B12 610 pg/mL (232-1245)
== END 2025-08-03 15:17 | disposition home or self-care (01) ==
LOC: LAB 15:19
PROVIDERS: PCP Family Medicine; Visit Provider Psychiatry & Neurology Neurology
DX: R41.3 Other amnesia (principal)
CPT/HCPCS: 36415; 82607; 82746

== ENCOUNTER 2025-09-10 12:35 | Outpatient (OUT) | payer MEDICARE, OTHER, SELFPAY ==
--- OUTSIDE RECORDS SUMMARY | 2025-09-04 13:20 | XMS_ITS | Encounter Summary ---
Author Organization [facility] Address [address] [facility] [place] [address] Care Team Providers Care Buncher Hand Name Role Phone Connor Jean Baptiste DO Primary Care Provider [phone] Reason for Referral * Imaging (Routine) - Pending ReviewSpecialtyDiagnoses / ProceduresReferred By ContactReferred To ContactCardiology Diagnoses Nonrheumatic aortic valve stenosis Procedures Complete Echo (TTE) w/wo Imaging Agent, Strain, 3D, Bubble Study Angelic Mendoza MD [address] [facility] [address] [place] [address] Phone: tel: fax: Referral IDStatusReasonStart DateExpiration DateVisits RequestedVisits [id number] Review Perform Procedure Reason for Visit * ReasonCommentsFollow-up6 month follow up with labsHyperlipidemiaCardiomyopathy Non-ischemicAtrial FibrillationPSVT Encounter Details DateTypeDepartmentCare Team (Latest Contact Info)Swoumoedska55/07/2025 1:[address] [facility] [address] [place] [address] Angelic Mendoza MD [address] [facility] [address] MS:[place] [address] Coronary artery disease involving burns paiute coronary artery of burns paiute heart without angina pectoris (Primary Dx); Dilated cardiomyopathy (CMS/HCC); Paroxysmal atrial fibrillation (CMS/HCC); Paroxysmal ventricular tachycardia (CMS/HCC); Nonrheumatic aortic valve stenosis; Primary hypertension; Mixed hyperlipidemia Social History Tobacco UseTypesPacks/DayYears UsedDateSmoking Tobacco: NeverSmokeless Tobacco: NeverAlcohol UseStandard Drinks/WeekCommentsNever0 (1 standard drink = 0.6 oz pure alcohol)CommentsUnknownSex and Gender InformationValueDate Recorded Sex Assigned at ChhzwHijrws83/30/2025 7:29 AM ESTLegal HmuFcayxv45/03/2024 3:56 PM ESTGender TgtiphvwWmmuca03/30/2025 7:29 AM ESTSexual OrientationHeterosexual or Hsqzxoid34/30/2025 7:29 AM ESTdocumented as of this encounter Last Filed Vital Signs Vital SignReadingTime TakenCommentsBlood Jzqjsuvf427/ 1:30 PM EST Wdnyu850009/04/2025 1:30 PM ESTTemperature--Respiratory Rate--Oxygen Psycyamqpe16% 09/04/2025 1:30 PM ESTInhaled Oxygen Concentration--Dcuyte97.8 kg (187 lb) 09/04/2025 1:30 PM NEDLvsbpo980.6 cm (5' 4 )09/04/2025 1:30 PM ESTBody Mass Index32. 1:30 PM ESTdocumented in this encounter Functional Status * BPAnswerDate of CburtpsfpjRambit129/ 1:30 PM Kayley Hazel MA * PulseAnswerDate of TzooulzwiqObdstj2888/07/2025 1:30 PM Kayley Hazel MA * Audit Alcohol ScreeningQuestionAnswerDate of AssessmentAuthorHow often do you have a drink containing alcohol? 1:34 PM Kayley Hazel MA How many standard drinks containing alcohol do you have on a typical day?No 09/04/2025 1:34 PM Kayley Hazel MAHow often do you have six or more drinks on one occasion? 1:34 PM Kayley Hazel MAAudit-Myrtle Hnsik08011/04/2024 1:34 PM Kayley Hazel MA * Patient PositionAnswerDate of UruirtqladPjtwzaOdlfkgo05/07/2025 1:30 PM Kayley Bales MA * BPAnswerDate of YvoyeextcjBerrqy158/6809/04/2025 1:30 PM Kayley Hazel MA * PulseAnswerDate of MinawccztjGjzbjs0075 1:30 PM Kayley Hazel MA * PuS3SwecziJzmr of IevbpybbcwJnhxhd4067 1:30 PM Kayley Hazel MA * BP LocationAnswerDate of AssessmentAuthorLeft arm09/04/2025 1:30 PM Kayley Bales MA * Audit Alcohol ScreeningQuestionAnswerDate of AssessmentAuthorHow often do you have a drink containing alcohol? 1:34 PM Kayley Hazel MA How many standard drinks containing alcohol do you have on a typical day?No 09/04/2025 1:34 PM Kayley Hazel MAHow often do you have six or more drinks on one occasion? 1:34 PM Kayley Hazel MAAudit-Myrtle Vunum63411/04/2024 1:34 PM Kayley Hazel MA * Patient PositionAnswerDate of PbewisjochUtkbohTbzxvyu64/07/2025 1:30 PM Kayley Bales MA documented as of this encounter Progress Notes * Angelic Mendoza MD - 09/04/2025 1:20 PM EST Images from the original note were not included. [facility] Reason for cardiology visit: Follow-up on nonsustained ventricular tachycardia, paroxysmal atrial fibrillation, coronary artery disease HPI: 09/04/2025 Patient is here today with her daughter for follow-up visit. She states that she has been doing well. She denies any chest pain or shortness of breath at rest or with exertion. She denies any dizziness or palpitations or syncope. She reports that 1 time when she stood up she felt dizzy and she wentto sit down but the phone rang therefore she stood up again quickly and she fell without losing cons ciousness. Her daughter reports that she does not drink much fluids because she forgets. Currently at that time Aldactone was discontinued. She denies orthopnea or paroxysmal nocturnal dyspnea or legs edema 10/17/2025 Rochelle Fuentes is a 75 y.o. female with history of paroxysmal atrial fibrillation, nonischemic cardiomyopathy, asymptomatic sinus bradycardia, hypertension, hyperlipidemia, obesity status post bariatric surgery, hypothyroidism. She was followed previously by [facility] cardiology in [place]. Recently she was seen in [facility] on 09/12/[address] Resendez after she presented with kidney stonerequired ureteral stent placement. During the procedures she had 5 beat nonsustained ventricular tac hycardia, and sinus bradycardia. Her labs were normal. Echocardiographic study and event monitor were recommended. The event monitor showed 1 ventricular tachycardia 14 beats therefore she was admitted to the hospital and she was seen on 09/29/2024 by . Review of systems All systems were reviewed and they were negative except for the positive findings noted above in the history Past Medical History She has a past medical history of Abnormal ECG, Arrhythmia, Atrial fibrillation (CMS/HCC), Chronic kidney disease, Diabetes mellitus (CMS/HCC), Hyperlipidemia, Hypertension, Hypothyroidism, and Obesity. Surgical History She has a past surgical history that includes Bariatric Surgery and Cardiac catheterization. Social History She reports that she has never smoked. She has never used smokeless tobacco. She reports that she does not drink alcohol and does not use drugs. Family History Family History Problem Relation Name Age of Onset Diabetes Mother Heart attack Father Coronary artery disease Brother Allergies Allerg xt,d.farinae-d.pteronys; Ciprofloxacin; Eustis; Dog dander; Milk; Mold; Sulfa (sulfonamide antibiotics); and Sulfamethoxazole-trimethoprim Medications Current Outpatient Medications: acetaminophen (Tylenol) 325 mg tablet, Take 325 mg by mouth every 4 (four) hours., Disp: , Rfl: allopurinol (Zyloprim) 300 mg tablet, Take 300 mg by mouth in the morning., Disp: , Rfl: calcium carbonate 600 mg calcium (1,500 mg) tablet, in the morning., Disp: , Rfl: dapagliflozin propanediol (Farxiga) 10 mg, Take 1 tablet (10 mg) by mouth once daily as directed., Disp: 30 tablet, Rfl: 11 Effer-K 25 mEq effervescent tablet, Take 25 mEq by mouth once daily as directed., Disp: , Rfl: fexofenadine (Hannah) 180 mg tablet, Take 180 mg by mouth in the morning., Disp: , Rfl: levothyroxine (Synthroid, Levoxyl) 100 mcg tablet, Take 112 mcg by mouth before breakfast., Disp: ,Rfl: losartan (Cozaar) 50 mg tablet, Take 1 tablet (50 mg) by mouth in the morning., Disp: 90 tablet, Rfl: 3 lovastatin (Mevacor) 10 mg tablet, Take 10 mg by mouth in the morning., Disp: , Rfl: rivaroxaban (Xarelto) 20 mg tablet, Take 1 tablet (20 mg) by mouth in the morning., Disp: 90 tablet, Rfl: 3 sodium bicarbonate 650 mg tablet, two times daily., Disp: , Rfl: dronedarone (Multaq) 400 mg tablet, Take 400 mg by mouth if needed. (Patient not taking: Reported on 09/04/2025), Disp: , Rfl: lisinopril 2.5 mg tablet, Take 1 tablet by mouth in the morning. (Patient not taking: Reported on 09/04/2025), Disp: , Rfl: Myrbetriq 50 mg tablet extended release 24 hr, Take 1 tablet by mouth in the morning. (Patient not taking: Reported on 09/04/2025), Disp: , Rfl: spironolactone (Aldactone) 25 mg tablet, Take 1 tablet (25 mg) by mouth in the morning. (Patient not taking: Reported on 09/04/2025), Disp: 90 tablet, Rfl: 3 tamsulosin (Flomax) 0.4 mg 24 hr capsule, Take 0.4 mg by mouth in the morning. (Patient not taking:Reported on 09/04/2025), Disp: , Rfl: Last Recorded Vitals Visit Vitals BP 120/68 (BP Location: Left arm, Patient Position: Sitting) Pulse 60 Ht 1.626 m (5' 4 ) Wt 84.8 kg (187 lb) SpO2 96% BMI 32.10 kg/m?? Smoking Status Never BSA 1.96 m?? Physical Examination: GENERAL: alert and oriented x3, [...] PSYCH: appropriate mood, affect, and judgement. Labs: 03/03/2025 White blood count 4.9, hemoglobin 8.4, hematocrit 29.1, platelets 244 Sodium 140, potassium 4, BUN 14, creatinine 0.88, GFR above 60, glucose 109, calcium 9.5, magnesium2 Total bilirubin 0.4, AST 12, ALT 14, alk phos 121, total protein 7, albumin 3.2 09/29/2024 White blood count 4.5, hemoglobin 9.5, [...] 07/28/2024 showed sinus bradycardia, nonspecific ST changes Echo 01/22/2025 at [facility] Left Ventricle: The left ventricle is mildly enlarged. Global left ventricular systolic function isdifficult to assess due to rhythm but appears preserved. The calculated Biplane EF is 52 %. Right Ventricle: The right ventricle is normal in size. Normal right ventricular systolic function.Doppler studies suggest mildly elevated right sided pressures. Left Atrium: The left atrium is mildly enlarged. Right Atrium: The right atrium appears enlarged. Aortic Valve: Mild aortic valve stenosis. Overall Conclusions: Due to suboptimal imaging Lumason contrast was administered for opacification and better delineation of endocardial borders. Lexiscan nuclear stress test 09/29/2024 at [facility] next EKG portion An wire taper uninterpretable baseline rhythm due to large amount of artifact Chest pressure with Lexiscan injection and large PVCs burden Nondiagnostic EKG due to an interpretable EKG Nuclear images: Large fixed defect in the anterior and inferior dorado, LAD and RCA distributions No redistribution to suggest reversible ischemia Dilated left ventricle with end-diastolic volume of [address] angiogram with FFR 10/17/2024 1. Mild stenosis in the LAD, left [...] region and GE junction from prior surgery 30-day event monitor Assessment and Plan: Mild to moderate coronary artery disease without hemodynamic significance on coronary CT angiogram with FFR 10/17/2024 CT scan showed also low ejection fraction of 37% but repeat echo with Lumason showed low normal ejection fraction 52% with mildly dilated left ventricle Mildly dilated cardiomyopathy As mentioned above most recent echo showed mildly dilated left ventricle with low normal left ventricle systolic function. Prior to that coronary CT angio showed ejection fraction 37%. No sign or symptoms of decompensated congestive heart failure. Currently she is on Farxiga, and losartan Ventricular tachycardia 14 beats noted on event monitor, prior to that she had short run of nonsustained V. tach 5 beats during kidney stone procedure. Still could represent atrial fibrillation with aberrant conduction Echo showed low normal left ventricular systolic function She had Lexiscan nuclear stress test on 09/29/2024 and she had frequent PVCs during the test. The nuclear images showed large fixed defect of the anterior and inferior dorado without reversible abnormalities, dilated left ventricle but normal ejection fraction 60% coronary send CT angiogram with FFR showed mild to moderate coronary artery disease without hemodynamic significance She was evaluated by Dr. Jones who did not change her current management Abnormal stress test showing evidence of anterior and inferior defects in addition to dilated left ventricle, large PVC burden also noted during the test Coronary CT angiogram with FFR showed mild to moderate coronary artery disease without hemodynamic significance Aortic stenosis, mild, on echo December 2024 Paroxysmal atrial fibrillation Maintaining normal sinus rhythm, she is on Xarelto for anticoagulation. Patient daughter tells me today that the patient has not been taking Multaq for a long time Sinus bradycardia, asymptomatic Moderate pulmonary hypertension noted on echo August 2024, probably due to obesity and possible sleep apnea. It was reported to be mild on echo December 2024 Hypertension, on Cozaar 50 mg daily, well-controlled Hyperlipidemia, on lovastatin History of diabetes mellitus which resolved after she lost weight Obesity, BMI 32.1 kg/m??, status post bariatric surgery after which she lost more than 100 pounds and she continues to lose Sleep apnea syndrome, patient and daughter reports that she does not have any symptoms after she lost weight Hypothyroidism, on Synthroid History of lower extremities venous insufficiency, status post venous ablation Mild dementia Plan: Continue current management including Xarelto, lovastatin, Farxiga and losartan. Cannot start beta-dominik due to sinus bradycardia. She used to be on Aldactone which apparently was stopped because once she had orthostatic hypotension Check fasting lipids and ALT AST as soon as possible Repeat echo around December 2024 to follow-up on aortic stenosis And was advised to continue to be active. She reports that she walks 1000 steps a day. I advised toincrease them to 2000 steps Follow-up in about 6-month Angelic Mendoza MD,[facility] documented in this encounter Plan of Treatment NameTypePriorityAssociated DiagnosesOrder ScheduleLipid panelLabRoutine Mixed hyperlipidemia Expected: 09/04/2025 (Approximate), Expires: 09/04/2026STLabRoutine Mixed hyperlipidemia Expected: 09/04/2025 (Approximate), Expires: 09/04/2026LTLabRoutine Mixed hyperlipidemia Expected: 09/04/2025 (Approximate), Expires: 09/04/2026omplete Echo (TTE) w/wo Imaging Agent, Strain, 3D, Bubble StudyEchocardiographyRoutine Nonrheumatic aortic valve stenosis Expected: 01/01/2026 (Approximate), Expires: 09/04/2027documented as of this encounter Visit Diagnoses Diagnosis Coronary artery disease involving burns paiute coronary artery of burns paiute heart without angina pectoris- Primary Dilated cardiomyopathy (CMS/HCC) Other primary cardiomyopathies Paroxysmal atrial fibrillation (CMS/HCC) Atrial fibrillation Paroxysmal ventricular tachycardia (CMS/HCC) Paroxysmal ventricular tachycardia Nonrheumatic aortic valve stenosis Primary hypertension Unspecified essential hypertension Mixed hyperlipidemia documented in this encounter Care Teams Team MemberRelationshipSpecialtyStart DateEnd Date Connor Jean Baptiste DO [address] [facility], [place] [address] PCP - GeneralFamily Kijudvms86/20/24documented as of this encounter
--- OUTSIDE RECORDS SUMMARY | 2025-09-10 12:38 | XMS_ITS | Encounter Summary ---
Author Organization [facility] Address [id number] [place] [address] Care Team Providers Care Core Laying Machine Operator Name Role Phone Connor Jean Baptiste Primary Care Provider [phone] Encounter Details DateTypeDepartmentCare Team (Latest Contact Info)Entueamzrzj92/03/2025Orders Only [facility] [address] [place] [id number] Ref Prov, [place] [address] Social History Tobacco UseTypesPacks/DayYears UsedDateSmoking Tobacco: NeverSmokeless Tobacco: NeverAlcohol UseStandard Drinks/WeekCommentsNot Currently0 (1 standard drink = 0.6 oz pure alcohol)[facility] UtilitiesAnswerDate RecordedIn the past 12 months has the electric, gas, oil, or water company threatened to shut off services in your home?No11/25/2024Social Connection and Isolation PanelAnswerDate RecordedIn a typical week, how many times do you talk on the phone with family, friends, or neighbors?More than three times a week11/25/2024How often do you get together with friends or relatives?Once a week11/25/2024How often do you attend jehovah's witness or buddhist services?Never11/25/2024Do you belong to any clubs or organizations such as jehovah's witness groups, unions, fraternal or athletic groups, or school groups?No 11/25/2024How often do you attend meetings of the clubs or organizations you belong to?Never11/25/2024re you , , , , never , or living with a partner?Aveqebb5011/25/2024UDIT-CAnswerDate RecordedQ1: How often do you have a drink containing alcohol?Never02/20/2023Q2: How many drinks containing alcohol do you have on a typical day when you are drinking? Patient does not drink02/20/2023Q3: How often do you have six or more drinks on one occasion?Never02/20/2023Overall Financial Resource Strain (CARDIA)AnswerDate RecordedHow hard is it for you to pay for the very basics like food, housing, medical care, and heating?Not hard at all02/20/2023HQ-2AnswerDate RecordedTotal Nxbsj965Finintermountain medical center [place] of Occupational Health - Occupational Stress QuestionnaireAnswerDate RecordedDo you feel stress - tense, restless, nervous, or anxious, or unable to sleep at night because yourmind is troubled all the time - these days?Only a nocuai7102/20/2023Exercise Vital SignAnswerDate Recorded On average, how many days per week do you engage in moderate to strenuous exercise (like a brisk walk)?7 days06/21/2023On average, how many minutes do you engage in exercise at this level?30 min06/21/2023RAPARE - TransportationAnswer Date RecordedIn the past 12 months, has lack of transportation kept you from medical appointments or from getting medications?No02/20/2023In the past 12 months, has lack of transportation kept you from meetings, work, or from getting things needed for daily living?No02/20/2023Housing InstabilityAnswerDate RecordedAre you worried or concerned that in the next two months you may not have stable housing that you own, rent or stay in as a part of a household?No 02/20/2023hildcareAnswerDate RecordedDo problems getting child caregiver make it difficult for you to work or study?No02/20/2023EmploymentAnswerDate RecordedDo you need help finding a local career center and/or a training program?No 02/20/2023Hunger ScreeningAnswerDate RecordedWithin the past 12 months we worried whether our food would run out before we got money to buy more.Never True07/09/2025Within the past 12 months the food we bought just didn't last and we didn't have money to get more.Never True07/09/2025Purpose - LifeAnswerDate RecordedI have a purpose and direction in my life.Strongly Agree02/20/2023 CommentsNoSex and Gender InformationValueDate RecordedSex Assigned at BirthNot on fileLegal EicVbiiii41/05/2015 5:58 PM EDTGender IdentityNot on file Sexual OrientationNot on filedocumented as of this encounter Plan of Treatment DateTypeDepartmentCare Team (Latest Contact Info)Nntuwdnjrxz58/29/2026 1:40 PM ESTOffice Visit [facility] [address] [place] [address] 01/06/2026 10:00 AM EDTOffice Visit [facility] [address] [place] [address] Connor Jean Baptiste DO [address] [facility] [facility] [place] [address] documented as of this encounter Procedures Procedure NamePriorityDate/TimeAssociated DiagnosisCommentsCYTOLOGY URINE CMID LPCUFDCZXkqcwmp05/03/2025 12:41 PM ESTdocumented in this encounter Results * Cytology urine cmid specimen (08/31/2025 12:41 PM EST) Narrative Authorizing ProviderResult TypeResult StatusNot In System Ref ProvURINE ORDERABLESFinal ResultPerforming OrganizationAddressCity/State/ZIP CodePhone Number MANUALLY TRANSCRIBED RESULTS documented in this encounter Visit Diagnoses Not on filedocumented in this encounter Additional Health Concerns AssessmentNoted TimePHQ-9 Depression Total Score: 10:02 AM EDTA Body Mass Index follow-up plan has been documented for the rrmlwgh9407/09/2025 11:14 AM EDTdocumented as of this encounter Care Teams Team MemberRelationshipSpecialtyStart DateEnd Date Connor Jean Baptiste DO [address] [facility], [place] [address] PCP - GeneralRobert Breck [facility] Medicine11/13/22 Yuni Borja CCM Nurse - [place] [address]documented as of this encounter
--- OUTSIDE RECORDS SUMMARY | 2025-09-10 12:38 | XMS_ITS | Clinical Summary ---
Author Organization [facility] Address [address] [place] [address] Phone Care Team Providers Care Litigation Associate Name Role Phone Connor Jean Baptiste DO Primary Care Provider Allergies Active AllergyReactionsCriticalityNoted DateCommentsCiprofloxacinUnknown 08/17/2023Sulfa (Sulfonamide Antibiotics)Wsrislo1608/17/2023 Medications MedicationSigDispense QuantityRefillsLast FilledStart DateEnd DateStatus allopurinol (Zyloprim) 300 mg tablet Take 1 tablet (300 mg) by mouth once daily.Active CALCIUM CARBONATE-VITAMIN D3 ORAL Take 1 tablet by mouth once daily.Active cholecalciferol (Vitamin D-3) 25 MCG (1000 UT) tablet Take 1 tablet (25 mcg) by mouth 2 times a day.Active ndxysjgd-ajw-fjsw-FA-vit K-lut (Centrum Silver Women) 8 mg iron-400 mcg-50 mcg tablet Take 1 tablet by mouth once daily.Active omega-3 fatty acids-fish oil (One-Per-Day [place]-3) 684-1,200 mg capsule Take 1 capsule (1,200 mg) by mouth once daily.Active collagen/biotin/ascorbic acid (COLLAGEN 1500 PLUS C ORAL) Take 1 capsule by mouth once daily.Active acetaminophen (Tylenol 8 HOUR) 650 mg ER tablet Take 1 tablet (650 mg) by mouth every 8 hours if needed for mild pain (1 - 3). Do not crush, chew, or split.Active dronedarone (Multaq) 400 mg tablet Indications:Paroxysmal atrial fibrillation (Multi)Take 1 tablet (400 mg) by mouth if needed (AFIB). Take as needed for AFIB 90 tablet 102/26/2024Active potassium bicarbonate (K-Lyte) 25 mEq effervescent tablet Take 1 tablet (25 mEq) by mouth 2 times a day.Active fexofenadine (Hannah) 60 mg tablet Take 1 tablet (60 mg) by mouth once daily.Active lisinopril 2.5 mg tablet Indications:Non-ischemic cardiomyopathy (Multi)Take 1 tablet (2.5 mg) by mouth once daily. 90 tablet ctive lovastatin (Mevacor) 10 mg tablet Indications:Hyperlipidemia, unspecified hyperlipidemia typeTake 1 tablet (10 mg) by mouth once daily. 90 tablet ctive rivaroxaban (Xarelto) 20 mg tablet Indications:Paroxysmal atrial fibrillation (Multi)Take 1 tablet (20 mg) by mouth once daily. 90 tablet ctive levothyroxine (Synthroid, Levoxyl) 125 mcg tablet Take 1 tablet (125 mcg) by mouth early in the morning.. Take on an empty stomach at the same time each day, either 30 to 60 minutes prior to breakfastActive Active Problems ProblemNoted DateDiagnosed DateHigh risk medication use08/28/2024MI 35.0-35.9,adult03/06/2024Never smoked jfsilkm8112/24/2023ruit of right carotid dsvboh4508/17/20238196Hvwnycsinhtbvi65/20/3341Awfwnbqiilnmcd46/20/2023Nephrolithiasis 08/17/2023Non-ischemic wrabcnqlvwihch97/20/2023aroxysmal atrial fibrillation 08/17/2023 Immunizations ImmunizationAdministration DatesNext DueFlu vaccine, trivalent, preservative free, HIGH-DOSE, age 65y+ (Fluzone)10/15/2022,08/29/2021,09/03/2020Pfizer Purple Cap WYBL-HzA-951/01/2021,12/23/2020,1Pneumococcal conjugate vaccine, 13-valent (PREVNAR 13)04/10/2016Pneumococcal polysaccharide vaccine, 23-valent, age 2 years and older (PNEUMOVAX 23)10/29/2012,10/29/2010Td (adult), unspecified 09/06/1999Tdap vaccine, age 7 year and older (BOOSTRIX, ADACEL)02/21/2010Zoster vaccine, recombinant, adult (SHINGRIX)03/29/2019Zoster, live02/14/2013 Family History Medical HistoryRelationNameCommentsCardiomyopathyBrotherHeart attackFatherCABG SisterHeart attackSisterRelationNameStatusCommentsBrotherFatherSister Social History Tobacco UseTypesPacks/DayYears UsedDateSmoking Tobacco: NeverSmokeless Tobacco: Never Tobacco Cessation:Counseling Given: Not Answered Alcohol UseStandard Drinks/WeekCommentsNever0 (1 standard drink = 0.6 oz pure alcohol)CommentsUnknownSex and Gender InformationValueDate RecordedSex Assigned at BirthNot on fileLegal KnyHizssu85/25/2022 11:56 AM ESTGender IdentityNot on fileSexual OrientationNot on file Last Filed Vital Signs Vital SignReadingTime TakenCommentsBlood Hdqpyaxx453/561 10:39 AM EDT Ponpz602508/28/2024 10:39 AM EDTTemperature--Respiratory Rate--Oxygen Saturation-- Inhaled Oxygen Concentration--Mvagmb56.2 kg (212 lb)08/28/2024 10:39 AM EDT Lmeres997.1 cm (5' 5 )08/28/2024 10:39 AM EDTBody Mass Index35.281 10:39 AM EDT Plan of Treatment Health MaintenanceDue DateLast DoneCommentsCT Owovxcurzxaj1950Colonoscopy 1950Colorectal Cancer Hivnplpkq1950FIT-DNA (Cologuard)1950FIT 1950Lipid Panel1950 1853Nufizyvklylkj1950TSH Level1950 Diabetes Octajkvvg50/01/1968Hepatitis C Tpjmpphje43/01/1968CKD: Urine Protein Qvououttt67/01/1969MMR Vaccines (1 of 1 - Standard series)03/14/2013one Density Scan2015RSV High Risk: (Elderly (60+) or Population) (1 - 1-dose 75+ series)2025Influenza Vaccine (#1)514, 11/01/2023, 10/15/2022, Additional history existsCOVID-19 Vaccine ( season) 5011/01/2023, 04/29/2022, 08/29/2021, Additional history existsMedicare Annual Wellness Visit (AWV)6011/25/2024, 06/21/2023, 06/20/2022, Additional history existsDTaP/Tdap/Td Vaccines (3 - Td or Tdap)02/20/2033 02/20/2023, 02/21/2010, 09/06/1999Zoster JwzkjexeRqpvwghnj48/20/2019, 05/29/2019, 04/15/2019, Additional history existsPneumococcal VaccineCompleted 09/13/2020, 08/29/2020, 06/20/2017, Additional history existsMammogram Nqospwywefmw71/08/2024, 07/26/2023, 07/26/2023, Additional history existsHIB VaccinesAged OutNo longer eligible based on patient's age to complete this topic HPV VaccinesAged OutNo longer eligible based on patient's age to complete this topicHepatitis A VaccinesAged OutNo longer eligible based on patient's age to complete this topicHepatitis B VaccinesAged OutNo longer eligible based on patient's age to complete this topicIPV VaccinesAged OutNo longer eligible based on patient's age to complete this topicMeningococcal VaccineAged OutNo longer eligible based on patient's age to complete this topicRotavirus VaccinesAged Out No longer eligible based on patient's age to complete this topic Insurance [place] [address] Care Teams Team MemberRelationshipSpecialtyStart DateEnd Date Connor Jean Baptiste DO [facility] - General10/29/19
--- OUTSIDE RECORDS SUMMARY | 2025-09-10 12:38 | XMS_ITS | Encounter Summary ---
Author Organization [facility] tem Address [id number] 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 Social History Tobacco UseTypesPacks/DayYears UsedDateSmoking Tobacco: NeverSmokeless Tobacco: NeverAlcohol UseStandard Drinks/WeekCommentsNot Currently0 (1 standard drink = 0.6 oz pure alcohol)[facility] UtilitiesAnswerDate RecordedIn the past 12 months has the [employer], gas, oil, or water [employer] threatened to shut off services in your home?No11/25/2024Social Connection and Isolation PanelAnswerDate RecordedIn a typical week, how many times do you talk on the phone with family, friends, or neighbors?More than three times a week11/25/2024How often do you get together with friends or relatives?Once a week11/25/2024How often do you attend baptist or hindu services?Never11/25/2024Do you belong to any clubs or organizations such as baptist groups, unions, fraternal or athletic groups, or school groups?No 11/25/2024How often do you attend meetings of the clubs or organizations you belong to?Never11/25/2024re you , , , , never , or living with a partner?Nqyazuf7511/25/2024UDIT-CAnswerDate RecordedQ1: How often do you have a [...] care, and heating?Not hard at all02/20/2023HQ-2AnswerDate RecordedTotal Dcwdr172[facility] of Occupational Health - Occupational Stress QuestionnaireAnswerDate RecordedDo you feel stress - tense, restless, nervous, or anxious, or unable to sleep at night because yourmind is troubled all the time - these days?Only a ywotvm3802/20/2023Exercise Vital SignAnswerDate Recorded On average, how many [...] of a household?No 02/20/2023hildcareAnswerDate RecordedDo problems getting professor of 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 No answer, LMOM with SN contact information for return call. SN rescheduled call for a later date. documented in this encounter Plan of Treatment DateTypeDepartmentCare Team (Latest Contact Info)Mgpzggcbcma14/29/2026 1:40 PM ESTOffice Visit [facility] [address] [place] [address] 01/06/2026 10:00 AM EDTOffice Visit [facility] [address] [place] [address] Connor Jean Baptiste, DO [address] [facility] [place] [address] documented as of this encounter Visit Diagnoses Diagnosis Acquired hypothyroidism- Primary Unspecified hypothyroidism 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
--- OUTSIDE RECORDS SUMMARY | 2025-09-10 12:38 | XMS_ITS | Clinical Summary ---
Author Organization [facility] Address [address] [place] [address] Care Team Providers Care Radiologist Physician Name Role Phone Connor Jean Baptiste DO Primary Care Provider [phone] Allergies Active AllergyReactionsCriticalityNoted DateCommentsAllerg Shara DotyFarinae-D.MiebnzezFxsfdfo08/02/2025 Other Reaction(s): Unknown CiprofloxacinRash,YsgplkpUun07/14/2023ornDiarrhea,QizadLfm77/22/2024og Dander VamgztdQxp84/06/2025MilkUnknown,BegzkKqy49/11/2018 Increased Mucus MoldOther,KourtkfQcp32/11/2018 Stuffiness / Raspy Voice Sulfa (Sulfonamide Antibiotics)Rash,BnvkggkZqe82/24/2023 Sulfamethoxazole-QxmxnnzaxgceIjdnQpv96/16/2023 Medications MedicationSigDispense QuantityRefillsLast FilledStart DateEnd DateStatus levothyroxine (Synthroid, Levoxyl) 100 mcg tablet Take 112 mcg by mouth before breakfast.02/17/2016Active dronedarone (Multaq) 400 mg tablet Take 400 mg by mouth if needed.02/17/2016Active allopurinol (Zyloprim) 300 mg tablet Take 300 mg by mouth in the morning.Active lovastatin (Mevacor) 10 mg tablet Take 10 mg by mouth in the morning.Active Effer-K 25 mEq effervescent tablet Take 25 mEq by mouth once daily as directed.10/26/2023ctive fexofenadine (Hannah) 180 mg tablet Take 180 mg by mouth in the morning.02/18/2024ctive spironolactone (Aldactone) 25 mg tablet Indications:Nonischemic cardiomyopathy (CMS/HCC),Pulmonary hypertension (CMS/HCC)Take 1 tablet (25 mg) by mouth in the morning. 90 tablet /000692/6Active Additional Information Patient not taking.Reported on 09/04/2025 rivaroxaban (Xarelto) 20 mg tablet Indications:Paroxysmal atrial fibrillation (CMS/HCC)Take 1 tablet (20 mg) by mouth in the morning. 90 tablet 502/6Active losartan (Cozaar) 50 mg tablet Indications:Essential hypertensionTake 1 tablet (50 mg) by mouth in the morning. 90 tablet 502/6Active dapagliflozin propanediol (Farxiga) 10 mg Indications:Nonischemic cardiomyopathy (CMS/HCC),Pulmonary hypertension (CMS/HCC)Take 1 tablet (10 mg) by mouth once daily as directed. 30 tablet 11001/14/589778/6Active acetaminophen (Tylenol) 325 mg tablet Take 325 mg by mouth every 4 (four) hours.Active calcium carbonate 600 mg calcium (1,500 mg) tablet in the morning.Active lisinopril 2.5 mg tablet Take 1 tablet by mouth in the morning.5Active Myrbetriq 50 mg tablet extended release 24 hr Take 1 tablet by mouth in the morning.4Active sodium bicarbonate 650 mg tablet two times daily.Active tamsulosin (Flomax) 0.4 mg 24 hr capsule Take 0.4 mg by mouth in the morning.4Active Active Problems ProblemNoted DateDiagnosed DateADHD (attention deficit hyperactivity disorder) 09/04/2025rthritis of left knee09/04/2025AD (coronary artery disease) 09/04/20257135Emgsxrnvaqfa84/07/2025Decreased range of motion of left knee09/04/2025 Overview (09/04/2025): Problem List clean-up per request of Phys. EHR Cmte Gilbert iquyldy6509/04/2025 Overview (09/04/2025): Problem List clean-up per request of Phys. EHR Cmte Memory loss09/04/2025Postoperative pain09/04/2025 Overview (09/04/2025): Problem List clean-up per request of Phys. EHR Cmte Sleep /07/2025Knee joint replacement xptchw9109/04/2025 Overview (09/04/2025): Problem List clean-up per request of Phys. EHR Cmte Status post left knee wijhkgzxzut53/07/2025 Overview (09/04/2025): Problem List clean-up per request of Phys. EHR Cmte Word finding ojmvmumgbe55/07/2025ttention or concentration yczleum6201/19/2025 Paroxysmal ventricular jcrhicwoppo83/21/2024bnormal finding on cardiovascular stress test10/18/20244518Mkrcicvugyxjtz23/20/2024hronic pain10/17/2024 Overview (10/17/2024): pt relates bilat knees Lfprasnr99/20/2024Enterobacter owyvvv7710/17/2024History of kidney stones 10/17/20248089Wuriyihhbzip84/20/2024Irregular heart beat10/17/2024Kidney stone 10/17/20246807Ncpyekfc71/20/8117Qttobuejycvoht21/20/2024 Overview (10/17/2024): left ventricle enlarged Urinary uzwnhsawk48/20/2024Urinary zwbttck9010/17/2024UTI (urinary tract infection)10/17/2024High risk medication use08/28/2024lass 2 severe obesity due to excess calories with serious comorbidity and body mass index (BMI) of35.0 to 35.9 in adult08/18/2024MI 35.0-35.9,adult03/06/2024Ureteral stone02/18/2024 Ureteral stone with aqojawsejcrcyg19/22/2024Never smoked llsitai9612/24/2023ruit of right carotid kgbgym5608/17/20234683Isyhsypykizjqe49/20/2023aroxysmal atrial qjimdwncgbqx57/20/2023bnormal abdominal CT scan07/23/2023symptomatic microscopic bbpbmyvdc66/25/2731Jxbbtkdhjveneb37/25/2023ross xsgcnwewr42/25/2023 Zcefgqoukxadbl87/25/3635Nvzhgbwjyzknpfj56/25/2023Minimal cognitive impairment 07/23/2023Non-ischemic kqjdkzsoezhxde90/25/2023 Overview (10/17/2024): left ventricle enlarged Gkctxjwtbwppjj42/25/2023Renal hikwkwk1207/23/2023Sleep apnea07/23/2023Stress bgihqsxudlbc49/25/2023olyp of transverse colon12/13/2022olon cancer screening 10/31/2022 Encounters DateTypeDepartmentCare PqspEjryzqvflpq47/07/2025 1:20 PM ESTOffice Visit [facility] [address] [address] Angelic Mendoza MD Coronary artery disease involving [place]e-[place]ouria coronary artery of o[place] heart without angina pectoris (Primary Dx); Dilated cardiomyopathy (CMS/HCC); Paroxysmal atrial fibrillation (CMS/HCC); Paroxysmal ventricular tachycardia (CMS/HCC); Nonrheumatic aortic valve stenosis; Primary hypertension; Mixed hyperlipidemiafrom Last 3 Months Family History Medical HistoryRelationNameCommentsCoronary artery diseaseBrotherHeart attack FatherDiabetesMotherRelationNameStatusCommentsBrotherDeceasedFatherDeceased MotherDeceasedSisterDeceased Social History Tobacco UseTypesPacks/DayYears UsedDateSmoking Tobacco: NeverSmokeless Tobacco: Never Tobacco Cessation:Counseling Given: Not Answered Alcohol UseStandard Drinks/WeekCommentsNever0 (1 standard drink = 0.6 oz pure alcohol)CommentsUnknownSex and Gender InformationValueDate RecordedSex Assigned at IvcefRyeetf84/30/2025 7:29 AM ESTLegal WqxFifjau88/03/2024 3:56 PM ESTGender HiezbgdiUdarbq54/30/2025 7:29 AM ESTSexual OrientationHeterosexual or Objctorr10/30/2025 7:29 AM EST Last Filed Vital Signs Vital SignReadingTime TakenCommentsBlood Nsgpckyv619/6811 1:30 PM EST Ceycy392809/04/2025 1:30 PM ESTTemperature--Respiratory Cosm445711/27/2024 8:18 AM ESTOxygen Yjxttgshqc78%09/04/2025 1:30 PM ESTInhaled Oxygen Concentration-- Pbwhau56.8 kg (187 lb)09/04/2025 1:30 PM PYSKwwmxn850.6 cm (5' 4 )09/04/2025 1:30 PM ESTBody Mass Index32. 1:30 PM EST Plan of Treatment Health MaintenanceDue DateLast DoneCommentsCT Soqjmaygxcgr1950Colonoscopy 1950Colorectal Cancer Djddckcqf1950Diabetes: Hemoglobin A1C 1950FIT-DNA1950FIT1950FOBT1950Medicare Annual Wellness (AWV)1950 1409Hsoulvjwhvfzb1950Diabetes: Retinopathy Gfvfvderf99/01/1960 Depression Hpicbgmmo18/01/1962Diabetes: Urine Protein Mpmnllndg97/01/1969Fall Risk Ojdwrnznd11/01/2015COVID-19 Vaccine ( season)2025 11/01/2023, 04/29/2022, 04/29/2022, Additional history existsInfluenza Vaccine (#1)5112/14/2023, 11/01/2023, 10/15/2022, Additional history existsAdult Iunaooa75/, 02/21/2010, 09/06/1999Zoster VaccinesCompleted 06/17/2019, 05/29/2019, 04/15/2019, Additional history existsPneumococcal Vaccine: 50+ ZxtphFyhbyoixi66/16/2020, 08/29/2020, 04/10/2016, Additional history existsHIB VaccinesAged OutNo longer eligible based on patient's age to complete this topicHPV VaccinesAged OutNo longer eligible based on patient's age to complete this topicIPV VaccinesAged OutNo longer eligible based on patient's age to complete this topicMeningococcal B VaccineAged OutNo longer eligible based on patient's age to complete this topicMeningococcal VaccineAged OutNo longer eligible based on patient's age to complete this topicRotavirus Vaccines Aged OutNo longer eligible based on patient's age to complete this topic Insurance * Guarantor: Mohit Fuentes TypeRelation to PatientDate of BirthPhone Billing AddressPersonal/MrvnkkRduy1950 [address] [address] , [place] [address] Care Teams Team MemberRelationshipSpecialtyStart DateEnd Date oCnnor Jean Baptiste DO [address], [facility] [place] [address] PCP - GeneralFamily Ygemdcoq22/20/24
--- OUTSIDE RECORDS SUMMARY | 2025-09-10 12:38 | XMS_ITS | Clinical Summary ---
Author Organization [employer] Address [facility] [place]-[id number] [address] [place] [address] Care Team Providers Care Public Opinion Survey Taker Name Role Phone Connor Jean Baptiste DO Primary Care Provider [phone] Allergies Active AllergyReactionsCriticalityNoted DateCommentsAllShara FlahertyFarinae-D.Eakrdnsg70/02/2025 Other Reaction(s): Unknown Sulfamethoxazole-LwqlhbiqictxPreeYlh59/16/6500UxnstfwbiyvqhOhpbTps58/14/2023Corn Other (See Comments)4Corn HtzRwkpiqriGep16/11/2018MilkOther (See Comments)Low11/08/2017 Increased Mucus MoldOther (See Comments)Low11/08/2017 Stuffiness / Raspy Voice Sulfa (Sulfonamide Antibiotics)VupsEog8806/21/2023 Medications MedicationSigDispense QuantityRefillsLast FilledStart DateEnd DateStatus allopurinoL (ZYLOPRIM) 300 mg tablet Take 1 tablet (300 mg total) by mouth in the morning.10/21/2022ctive XARELTO 20 mg tablet tablet Take 1 tablet (20 mg total) by mouth in the morning.10/21/2022ctive acetaminophen (TYLENOL ARTHRITIS) 650 mg 8 hr tablet Take 1 tablet (650 mg total) by mouth every 8 (eight) hours as needed for pain. Active CALCIUM CARBONATE-VITAMIN D3 ORAL Take 1 tablet by mouth in the morning.Active pfhkxycu-gof-gkor-FA-vit K-lut (CENTRUM SILVER WOMEN) 8 mg iron-400 mcg-50 mcg tablet Take 1 tablet by mouth in the morning.Active EFFER-K 25 mEq disintegrating tablet 12/08/2023ctive fexofenadine (BRAYDON) 180 mg tablet Take 1 tablet (180 mg total) by mouth in the morning.02/18/2024ctive rtswt-yw-5-ceo-lvs-ofpznpa-ast (KRILL OIL) 1,180-345-68-80 mg capsule Take 1 capsule by mouth in the morning.02/18/2024ctive losartan (COZAAR) 50 mg tablet Take 1 tablet (50 mg total) by mouth.Active FARXIGA 10 mg tablet Take 1 tablet (10 mg total) by mouth.03/30/2025tive lovastatin (MEVACOR) 10 mg tablet TAKE 1 TABLET BY MOUTH IN THE MORNING 90 tablet tive levothyroxine (SYNTHROID, LEVOTHROID) 112 MCG tablet TAKE 1 TABLET BY MOUTH IN THE MORNING 90 tablet tive lovastatin (MEVACOR) 10 mg tablet Take 1 tablet (10 mg total) by mouth in the morning. 90 tablet Discontinued levothyroxine (SYNTHROID, LEVOTHROID) 112 MCG tablet TAKE 1 TABLET BY MOUTH IN THE MORNING 90 tablet Discontinued Active Problems Patient Care Coordination No te Formatting of this note migh t be different from the original. Hypothyroidism & CKD Careplan: Nurse to instruct on: the purpose of your medications and the importance of adherence -pt to bring med list to [facility] next week 11/20/24 SA RN the importance of your care plan -discussed [...] and hair, puffy face, muscle weakness, and weightgain due to fluid retention as a S&S of your Hypothyroidism the importance of recognizing discomfort or swelling to the abdomen, swelling in hands, feet, or legs, and nausea, vomiting, taste changes as a S&S of your CKD Nurse to assist in: scheduling your appointments, as needed setting a goal to achieve a healthy weight, increase joint mobility and range of motion, get enoughsleep, do regular physical activity, create a safe [...] monitoring respiratory rate and rhythm - 04/04/24 GLORY DOMINGUEZ monitoring oxygen levels - 04/04/24 GLORY DOMINGUEZ your Hypothyroidism, its diagnosis, process and treatment your CKD, its diagnosis, process and treatment the importance of recognizing brittle fingernails and hair, puffy face, muscle weakness, and weightgain due to fluid retention as a S&S [...] blood pressure A Fib Care Plan [10/01/2024] FRANK HOLDER Added: Nurse to instruct on: your A Fib, its diagnosis and treatment the importance of recognizing dizziness or lightheadedness, faintness or confusion, palpitations orfluttering in the chest, rapid and irregular heartbeat, sweating, weakness, and weakness or shortness of breath as a S&S of your A Fib -11/20/24 SA RN -Reviewed s/s of A Fib. 03/17/25 GLORY MARIE Patient to verbalize understanding of: your A Fib, its diagnosis, process and treatment the importance of recognizing dizziness or lightheadedness, faintness or confusion, palpitations orfluttering in the chest, rapid and irregular heartbeat, sweating, weakness, and weakness or shortness of breath as a S&S of your A Fib -Reviewed s/s of A Fib. 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 Mailed chair exercises. 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 with serious comorbidity in adult 08/18/2024Ureteral stone02/18/2024Ureteral stone with iitojjnstgtada36/22/2024 Bruit of right carotid uicjoh3208/17/2023aroxysmal atrial poeacxzsxzot40/20/2023 Minimal cognitive wdtnycziex36/25/2023bnormal abdominal CT scan07/23/2023 Asymptomatic microscopic dbmbflhdy22/25/2023Non-ischemic cardiomyopathy 07/23/2023 Overview (07/23/2023): left ventricle enlarged Svddoglpkgkeup01/25/2023ross xfenflnov96/25/6156Iqblgkvfulpvlw07/25/2023 Zexeeomkdejcvsq15/25/3721Hqkiiymkvfkqvj25/25/2023Renal clgudah8407/23/2023Sleep apnea07/23/2023Stress xjbfugddzgbo64/25/2023olyp of transverse colon12/13/2022 Colon cancer jnpyxixrz67/03/2023HypertensionHypothyroidism Resolved Problems ProblemNoted DateDiagnosed DateResolved DateDiabetic on diet only07/23/2023 07/23/2023Morbid uypglti70Diabetes yjfmoetc06/25/2023 Encounters DateTypeDepartmentCare BdntAllacfkkssb50/04/2025Patient Outreach [facility] [address] [place] [address] Connor Jean Baptiste DO Acquired hypothyroidism (Primary Dx); 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 ebbjzxhtqnfm36/03/2025Orders Only [facility] [address] [place] [address] Ref Prov, Not In System 08/20/2025Refill [facility] [address] [place] [address] Connor Jean Baptiste DO 07/12/2025Results Follow-Up [facility] [address] [place] [address] Connor Jean Baptiste, DO Thyroid profile includes TSH FT4, Comprehensive metabolic panel, Lipid profile, Hemoglobin A1c07/09/2025 10:00 AM EDTOffice Visit [facility] [address] [place] [address] Connor Jean Baptiste, Primary hypertension (Primary Dx); Acquired hypothyroidism; Hyperlipidemia, unspecified hyperlipidemia type; Class 1 obesity due to excess calories with serious comorbidity and body mass index (BMI) of 33.0 to 33.9 in adult; History of diabetes mellitus, type II07/09/20256654Hunywc25/05/2025Patient Outreach [facility] [address] [place] [address] Connor Jean Baptiste, Acquired hypothyroidism (Primary Dx); 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from Last 3 Months Immunizations ImmunizationAdministration DatesNext DueCOVID-19, mRNA, LNP-S, PF, 100mcg/0.5mL Dose04/29/2022OVID-19, mRNA, LNP-S, PF, 30mcg/0.3mL Dose08/29/2021,12/23/2020, 12/23/2020,12/01/2020,1Covid-19, Mrna, Lnp-s, Pf, 30 Mcg/0.3 Ml Dose, Lisandro-vdzmssp7804/29/2022H1N1 Inj Preservative Free12/20/2009,11/29/2009Influenza (IM) Preservative Free10/06/2016Influenza High Dose Preservative Free IM 09/03/2020,09/02/2019Influenza Split Preservative Free ID10/19/2016Influenza, High-dose, Mnafuvuxfiwz09/04/2024,10/15/2022,08/29/2021,08/07/2014,08/07/2014 Influenza, Im Trivalent Mjimbeqghydm52/14/2020,07/29/2020,08/29/2019Influenza, Injectable, Mdck, Preservative Free, Quad09/27/2017Influenza, Injectable, Kmylwliuxtqd56/06/2020,08/29/2020Influenza, Trivalent, Sqvjyvjyou38/16/2024 Influenza, Sjwegrlizir31/18/2022,09/08/2021,08/29/2021,09/03/2020,08/29/2020, 08/11/2020,07/29/2020,09/02/2019,08/29/2019,08/11/2019,09/27/2017,10/19/2016, 10/06/2016,08/07/2014Pneumococcal Conjugate 13-Wmohwt8304/10/2016,04/06/2016, 10/02/2013Pneumococcal Ixhftkdknjqyxs04/16/2020,08/29/2020,07/29/2014,10/29/2012 ,10/29/2010,02/21/20104621ODXE-WCH-1 (COVID-19) Vaccine, Qiznbvsrjsk16/02/2022Td (adult), 2 Lf tetanus toxoid, preservative free, ldoyvjcw86/09/1999,09/06/1999 Td, Ufknnaoiwqp40/09/4348Sqop86/25/2023,02/21/2010Zoster Live02/14/2013Zoster Vaccine Sfykhblnnlt43/20/2019,05/29/2019,04/15/2019,03/29/2019 Family History Medical HistoryRelationNameCommentsCardiomyopathyBrotherHeart attackBrother ParkinsonismBrotherSleep apneaBrotherStrokeBrotherDiabetesDaughterAlcohol abuse FatherLung diseaseFatherDiabetesMotherHeart attackSisterCancerSonRelationName StatusCommentsBrotherDeceasedDaughterAliveFatherDeceasedMotherDeceasedSister DeceasedSonDeceased Social History Tobacco UseTypesPacks/DayYears UsedDateSmoking Tobacco: NeverSmokeless Tobacco: Never Tobacco Cessation:Counseling Given: Not Answered Alcohol UseStandard Drinks/WeekCommentsNot Currently0 (1 standard drink = 0.6 oz pure alcohol)C UtilitiesAnswerDate RecordedIn the past 12 months has the [employer], gas, oil, or water Webspy threatened to shut off services in your home?No01/28/2025Social Connection and Isolation PanelAnswerDate RecordedIn a typical week, how many times do you talk on the phone with family, friends, or neighbors?More than three times a week11/25/2024How often do you get together with friends or relatives?Once a week11/25/2024How often do you attend baptist or yazidi services?Never11/25/2024Do you belong to any clubs or organizations such as baptist groups, unions, fraKitchenbug or athletic groups, or school groups?No 11/25/2024How often do you attend meetings of the clubs or organizations you belong to?Never11/25/2024re you , , , , never , or living with a partner?Hirxbwu3011/25/2024UDIT-CAnswerDate RecordedQ1: How often do you have a [...] care, and heating?Not hard at all02/20/2023HQ-2AnswerDate RecordedTotal Ksors894Finmount[facility] [place] of Occupational Health - Occupational Stress QuestionnaireAnswerDate RecordedDo you feel stress - tense, restless, nervous, or anxious, or unable to sleep at night because yourmind is troubled all the time - these days?Only a pattic0402/20/2023Exercise Vital SignAnswerDate Recorded On average, how many [...] of a household?No 02/20/2023hildcareAnswerDate RecordedDo problems getting summer child caregiver make it difficult for you [...] InformationValueDate RecordedSex Assigned at BirthNot on fileLegal OkhLgxzpo49/05/2015 5:58 PM EDTGender IdentityNot on file Sexual OrientationNot on file Last Filed Vital Signs Vital SignReadingTime TakenCommentsBlood Nvmogkvf223/64007/09/2025 10:02 AM EDT Mklxq334507/09/2025 10:02 AM AKCPsxzqvdjaax72.4 ??C (97.5 ??F)07/09/2025 10:02 AM EDTRespiratory Zmru608507/09/2025 10:02 AM EDTOxygen Rdrmnepuhw13%07/09/2025 10:02 AM EDTInhaled Oxygen Concentration--Xbtnkh70.4 kg (188 lb 3.2 oz)07/09/2025 10:02 AM ALPHdzycn291 cm (5' 2.99 )07/09/2025 10:02 AM EDTBody Mass Index33.35 07/09/2025 10:02 AM EDT Plan of Treatment DateTypeDepartmentCare Team (Latest Contact Info)Dqhtifriwon06/29/2026 1:40 PM ESTOffice Visit [facility] [address] [place] [address] 01/06/2026 10:00 AM EDTOffice Visit [facility] [address] [place] [address] Connor Jean Baptiste, DO [address], [facility] [place] [address] Health MaintenanceDue DateLast DoneCommentsRSV ( or age 60+ yrs) (1 - 1- dose 75+ series)2025OVID-19 Vaccine ( season)2025 11/01/2023, 04/29/2022, 04/29/2022, Additional history existsInfluenza Vaccine /, 11/01/2023, 10/15/2022, Additional history existsMedicare Annual Wellness Visit6011/25/2024, 3Depression Screening /08/2025Fall Risk Vldnkrvwx07/08/2025Tobacco Screening /08/2025DTaP,Tdap and Td Vaccines (3 - Td or Tdap)02/20/2033 02/20/2023, 02/21/2010, 09/06/1999, Additional history existsZoster (Shingles) XulxrwlOrfrqtqic28/20/2019, 05/29/2019, 04/15/2019, Additional history exists Medical Devices Not on file Procedures Procedure NamePriorityDate/TimeAssociated DiagnosisCommentsCYTOLOGY URINE CMID HJDTZFOWLsxfdym91/03/2025 12:41 PM ESTHEMOGLOBIN V4WOnjrznb91/11/2025 10:32 AM EDT History of diabetes mellitus, type II LIPID PLHRAGOGjobkue29/11/2025 10:32 AM EDT Hyperlipidemia, unspecified hyperlipidemia type COMPREHENSIVE METABOLIC ILFNTDrtfata78/11/2025 10:32 AM EDT Primary hypertension THYROID PROFILE INCLUDES TSH CK7Cyocdqk58/11/2025 10:32 AM EDT Acquired hypothyroidism from Last 3 Months Results * Cytology urine cmid specimen (08/31/2025 12:41 PM EST) Narrative Authorizing ProviderResult TypeResult StatusNot In System Ref ProvURINE ORDERABLESFinal ResultPerforming OrganizationAddressCity/State/ZIP CodePhone Number MANUALLY TRANSCRIBED RESULTS * Thyroid profile includes TSH FT4 (07/09/2025 10:32 AM EDT)ComponentValueRef RangeTest MethodAnalysis TimePerformed AtPathologist SignatureFREE T41.170.61 - 1.60 ng/dL07/09/2025 8:36 PM [facility] LABORATORYTSH0.50 0.49 - 4.67 uIU/mL07/09/2025 8:36 PM [facility] Specimen (Source)Anatomical Location / LateralityCollection Method / Volume Collection TimeReceived TimeBloodVenous blood / Taelnle7407/09/2025 10:32 AM EDT 07/09/2025 10:32 AM EDT Narrative Authorizing ProviderResult TypeResult StatusDennis G Furlong DOLAB BLOOD ORDERABLESFinal ResultPerforming OrganizationAddressty/State/ZIP CodePhone Number [facility] [address] [place] [address], * (ABNORMAL) Hemoglobin A1c (07/09/2025 10:32 AM EDT)ComponentValueRef RangeTest MethodAnalysis TimePerformed AtPathologist SignatureHEMOGLOBIN A1C5.8(H)4.4 - 5.6 %07/09/2025 8:58 PM [facility] LABORATORYComment: ?ADA Guidelines ?Result ?HgbA1c ? Normal : ? less than 5.7 % ? Prediabetes : ?5.7 % ??to 6.4 % Diabetes : > 6.4 % ?Use with caution in patients with abnormal hemoglobin variants as ??the half-life of red blood cells and in vivo glycation rates are ??affected. EST. AVERAGE QUTUOQM401sa/dL07/09/2025 8:58 PM [facility] LABORATORYSpecimen (Source)Anatomical Location / LateralityCollection Method / VolumeCollection TimeReceived TimeBloodVenous blood / Jsmibav0507/09/2025 10:32 AM EDT07/09/2025 10:32 AM EDT Narrative Authorizing ProviderResult TypeResult StatusDeneugenio Jean Baptiste [facility] BLOOD ORDERABLESFinal ResultPerforming OrganizationAddressCity/State/ZIP CodePhone Number [facility] [address] [place] [id number], * Lipid profile (07/09/2025 10:32 AM EDT)ComponentValueRef RangeTest Method Analysis TimePerformed AtPathologist YmkxodyasHQWTUEJQCNM022479 - 200 mg/dL 07/09/2025 8:27 PM [facility] KPOLWGVBCJDFJABRHZPKAV4685 - 150 mg/dL07/09/2025 8:27 PM [facility] LABORATORYHDL SMWYGVLHDYC53>39 mg/dL07/09/2025 8:27 PM [facility]ATORYComment: HDL <40 mg/dL - High Risk HDL > or = 40mg/dL- Desirable HDL >60 mg/dL - Negative Risk LDL (CALC)79<130 mg/dL07/09/2025 8:27 PM [facility] Comment: LDL <100 mg/dL - Desirable LDL >160 mg/dL - High Risk CHOLESTEROL:HDL2.51.0 - 5.009 8:27 PM [facility] LABORATORYVERY LOW LHCAXGFNAVE143 - 30 mg/dL07/09/2025 8:27 PM [facility] LABORATORYSpecimen (Source)Anatomical Location / Laterality Collection Method / VolumeCollection TimeReceived TimeBloodVenous blood / Puqbese6207/09/2025 10:32 AM EDT07/09/2025 10:32 AM EDT Narrative Authorizing ProviderResult TypeResult StatusDennis G Furlong DOLAB BLOOD ORDERABLESFinal ResultPerforming OrganizationAddressCity/State/ZIP CodePhone Number [facility] [address] [place] [address], * Comprehensive metabolic panel (07/09/2025 10:32 AM EDT)ComponentValueRef Range Test MethodAnalysis TimePerformed AtPathologist UwadfdzlvMKAZKB401253 - 146 mmol/L07/09/2025 8:27 PM [facility] LABORATORYPOTASSIUM4.63.5 - 5.0 mmol/L07/09/2025 8:27 PM [facility] LABORATORYCHLORIDE [address]30 - 109 mmol/L07/09/2025 8:27 PM [facility] CARBON JAXMFEO2161 - 32 mmol/L07/09/2025 8:27 PM [facility] LABORATORYANION GAP65 - 15 mmol/L07/09/2025 8:27 PM [facility] LABORATORYBLOOD UREA RTAYRTSI981 - 27 mg/dL07/09/2025 8:27 PM [facility] LABORATORYCREATININE0.770.40 - 1.00 mg/dL07/09/2025 8:27 PM [facility]ORATORYComment:METHOD TRACEABLE TO IDMS AXGFIEZYZLVKDEW9979 - 99 mg/dL07/09/2025 8:27 PM [facility] LABORATORYCALCIUM9.88.5 - 10.5 mg/dL07/09/2025 8:27 PM [facility]ATORYTOTAL PROTEIN6.96.0 - 8.0 g/dL07/09/2025 8:27 PM [facility] LABORATORYALBUMIN3.93.2 - 5.3 g/dL07/09/2025 8:27 PM EDT [facility] LABORATORYALKALINE JRQTUQDKMAX0079 - 130 U/L 07/09/2025 8:27 PM [facility] LZGKUXMCJOVWC52<=41 U/L 07/09/2025 8:27 PM [facility] LABORATORYALT8<=31 U/L 07/09/2025 8:27 PM [facility] LABORATORYBILIRUBIN,TOTAL0.40.3 - 1.2 mg/dL07/09/2025 8:27 PM [facility]ORYEGFR Non- Race Xxnhkzuim56>=60 ml/min/1.73sq.m007/09/2025 8:27 PM [facility]ORATORYComment: Reported eGFR is based on the CKD-EPI 2020 equation that does not use a race coefficient. Specimen (Source)Anatomical Location / LateralityCollection Method / Volume Collection TimeReceived TimeBloodVenous blood / Mjzxshy0807/09/2025 10:32 AM EDT 07/09/2025 10:32 AM EDT Narrative Authorizing ProviderResult TypeResult StatusDennis G Furlong DOLAB BLOOD ORDERABLESFinal ResultPerforming OrganizationAddressCity/State/ZIP CodePhone Number [facility] [address] [place] [address], from Last 3 Months Insurance * Guarantor: Mohit Fuentes TypeRelation to PatientDate of BirthPhone Billing AddressPersonal/AzhepdQpox1950 [phone] [address] Care Teams Team MemberRelationshipSpecialtyStart DateEnd Date Connor Jean Baptiste DO [address] [facility] [place] [address] PCP - GeneralFamily Medicine11/13/22 Yuni Borja [facility]24
--- OUTSIDE RECORDS SUMMARY | 2025-09-10 12:38 | XMS_ITS | Clinical Summary ---
Author Organization [facility] Address [address] [place] [address] Care Team Providers Care Coke Burner Name Role Phone Connor Jean Baptiste MD Primary Care Provider [phone] Allergies Active AllergyReactionsCriticalityNoted DateCommentsCiprofloxacinRash,UnknownLow 12/12/2022orn OpqJrjxxlxcIcb19/11/2018Dust Mite Uazzdac3210/30/2024 Other Reaction(s): Unknown Milk (Cow)KnwkzWxn86/11/2018 Increased Mucus Molds & NojbnRsyfbIpq41/11/2018 Stuffiness / Raspy Voice Sulfa AntibioticsRash,PqpvevaOfg52/24/2023Sulfamethoxazole-TrimethoprimRashLow 11/13/2022 Medications MedicationSigDispense QuantityRefillsLast FilledStart DateEnd DateStatus levothyroxine (Synthroid, Levoxyl) 137 MCG tablet Take 137 mcg by mouth in the morning.Active Xarelto 20 MG tablet Take 20 mg by mouth DailyActive allopurinol (Zyloprim) 300 MG tablet Take 300 mg by mouth DailyActive lovastatin (Mevacor) 10 MG tablet Take 10 mg by mouth in the morning.03/02/2023ctive potassium bicarbonate (Effer-K) 25 MEQ effervescent tablet Take 25 mEq by mouth10/26/2023ctive fexofenadine (Hannah) 180 MG tablet Take 180 mg by mouth in the morning.02/18/2024ctive Multiple Vitamins-Minerals (CENTRUM SILVER ADULT 50+ PO) as directed OrallyActive cholecalciferol (Vitamin D-[address]) 25 MCG (1000 UT) tablet Take 25 mcg by mouth in the morning and 25 mcg in the evening.Active [place]-3 Fatty Acids (OMEGA-3 FISH OIL PO) Take by mouthActive acetaminophen (Tylenol) 325 MG tablet Take 325 mg by mouth every 4 (four) hoursActive calcium carbonate 1500 (600 Ca) MG tablet Take 600 mg by mouth in the morning and 600 mg in the evening. Take with meals. Active Ferrous Sulfate (IRON PO) Take 1 tablet by mouth in the morning.Active Krill Oil 1000 MG capsule OrallyActive sodium bicarbonate 650 MG tablet Take 650 mg by mouth 1 (one) timeActive tamsulosin (Flomax) 0.4 MG 24 hr capsule Take 0.4 mg by mouth Daily08/05/2024ctive dapagliflozin (Farxiga) 10 MG Take by mouthActive Active Problems No known active problems Immunizations ImmunizationAdministration DatesNext DueInfluenza, High-dose Seasonal, Quadrivalent, Preservative Free11/01/2023,10/15/2022,08/29/2021,08/07/2014 Influenza, Alvssesnkui43/11/2021,09/03/2020,08/29/2020,08/11/2020,07/29/2020, 09/02/2019,08/11/2019Influenza, injectable, MDCK, preservative free, dwwckcrbudff93/30/2017Influenza, seasonal, immhiexdli42/01/2019Influenza, seasonal, injectable, preservative free10/06/2016Influenza, seasonal, intradermal, preservative free10/19/2016Influenza, trivalent, adjuvanted 10/13/2024Novel coxjbxygz-Q5J3-76, preservative-free12/20/2009,11/29/2009 Pneumococcal Conjugate PCV 1306,04/06/2016,10/02/2013Pneumococcal Polysaccharide HADS712811/13/2019,08/29/2020,07/29/2014,10/29/2012,10/29/2010, 02/21/2010Td (adult), ummvjmxixyz95/09/6659Cqjt07/25/2023,02/21/2010Zoster, Trxybrmiknm91/20/2019,05/29/2019,04/15/2019,03/29/2019Zoster, live02/14/2013 Family History Medical HistoryRelationNameCommentsHeart diseaseFatherDiabetesMotherHeart diseaseMotherRelationNameStatusCommentsFatherDeceasedMotherDeceased Social History Tobacco UseTypesPacks/DayYears UsedDateSmoking Tobacco: NeverSmokeless Tobacco: Never Tobacco Cessation:Counseling Given: Not Answered CommentsUnknownSex and Gender InformationValueDate RecordedSex Assigned at BirthNot on fileLegal BppLrloxu04/15/2023 7:01 PM EDTGender IdentityNot on fileSexual OrientationNot on file Last Filed Vital Signs Vital SignReadingTime TakenCommentsBlood Pressure--Pulse--Temperature-- Respiratory Rate--Oxygen Saturation--Inhaled Oxygen Concentration--Ubbptz50.8 kg (209 lb)05/26/2025 10:59 AM TVGTlfrti560.2 cm (5' 7 )05/26/2025 10:59 AM EDTBody Mass Index32.7305/26/2025 10:59 AM EDT Plan of Treatment DateTypeDepartmentCare Team (Latest Contact Info)Xjwdxvjyfxe98/25/2025 11:15 AM ESTOffice Visit [facility] [address] [place] [id number] Jr. Jasper Mcclain, DO [address] [address] 11/03/2025 10:00 AM ESTOffice Visit [facility] [address] [place] [address] Jr. Jasper Mcclain, DO [address] [address] Health MaintenanceDue DateLast DoneCommentsCT Brlpgzxcdvhh1950Colonoscopy 1950Colorectal Cancer Odibiukwz1950FIT-DNA1950FIT1950 FOBT1950 8499Ygqhdrnhyoala1950COVID-19 Vaccine ( season) 5011/01/2023, 04/29/2022, 08/29/2021, Additional history existsInfluenza Vaccine (#1)5112/14/2023, 11/01/2023, 10/15/2022, Additional history existsPneumococcal Vaccine: 65+ AbibnTjrawsbkp44/16/2020, 08/29/2020, 04/10/2016, Additional history zrgzpuQseoiajckJprvyzfhulwz64/28/2023 Insurance * Guarantor: Mohit Fuentes TypeRelation to PatientDate of BirthPhone Billing AddressPersonal/XkmwsgThaw1950 [address] [address] Care Teams Team MemberRelationshipSpecialtyStart DateEnd Date Connor Jean Baptiste MD [address] [facility], [place] [address] PCP - GeneralFamily Medicine02/19/25
--- OUTSIDE RECORDS SUMMARY | 2025-09-10 12:40 | XMS_ITS | CCD ---
Author Organization [facility] Care Team Providers Care Quality Control Lead Name Role Phone Markel Connor Ruiz Unavailable [...] Unavailable WEST, DR WILLARD Pittman Consulting [facility] Primary Care Unavailable WEST, [...] WILLRAD Pittman Admgabriela Unavailable FURLONG, DR CONNOR Ruiz [...] FURLONG, DR CONNOR Ruiz Primary Care Unavailable [place], DR WILLARD Pittman Consulting Unavailable WEST, DR WILLARD Pittman Admitting Unavailable FURLONG, DR CONNOR Ruiz Primary Care Unavailable [place], DR WILLARD Pittman Attending Unavailable MISC, DOCTOR Admitting Unavailable MISC, DOCTOR Attending Unavailable MISC, DOCTOR Consulting Unavailable FURLONG, DR CONNOR Ruiz Primary Care Unavailable [place] Connor Garciaard Primary Care Provider Radha Back X Admitting Unavailable Orzech, Radha X Attending Unavailable Orzech, Radha X Attending Unavailable Orzech, Radha X Attending Unavailable DULCE ALCAZAR Attending Unavailab Yehuda Vasquez Attending Unavailable Yehuda HASSAN Attending Unavailable Yehuda HASSAN Attending Unavailable Orzech, Radha X Attending Unavailable Orzech, Radha X Attending Unavailable Furng DO Connor Garciaard Primary Care Provider Connor Anaya MD Primary Care Provider [phone] Radha Back Attending Unavailable Orzech, Radha X Admitting Unavailable Orzech, Radha X Attending Unavailable Yehuda HASSAN Attending Unavailable NICK RICHARDSON Attending Unavailable DEBIBECONNOR HADLEY Primary Care Unavailab NICK Rousseau Attending Unavailable FURLONG, CONNOR SOW Primary Care Unavailab NICK Rousseau Referring Unavailable CARMEN LOPEZ Attending Unavailable NICK RICHARDSON Referring Unavailable DEBBIELONGCONNOR Primary Care Unavailab le [place] Connor ESCALANTE Primary Care Provider CONNOR ANAYA Referring Unavailable FURLONG, CONNOR Ruiz Primary Care Unavailable FURLONGCONNOR Referring Unavailable FURLONG, CONNOR Ruiz Primary Care Unavailable DEBBIELONG, CONNOR Ruiz Referring Unavailable FURLONG, CONNOR Ruiz Primary Care Unavailable [place] Connor ESCALANTE Primary Care Provider CONNOR ANAYA Attending Unavailable FURLONG, CONNOR Ruiz Referring Unavailable FURLONG, CONNOR Ruiz Primary Care Unavailable Debbielong Connor HAYDEN Primary Care Provider JR. MCCLAIN GEORGE C Attending Unavaila NANY Akbar Attending Unavailable NANY JAIN J Referring Unavailable JR. CHAPO, LESVIA Iraheta Attending Unavaila ble FURLONG, OCNNOR G Attending Unavailable FURLONG, CONNOR G Referring [...] Unavailable FURLONG, CONNOR G Primary Care Unavailable [place] DO, Connor Primary Care Provider Isa Rogers DO Attending Provider Jayla Foley, Miguel Ángel Attending Provider Furlong DO, Connor G Primary Care Provider [phone] Yehuda HASSAN Attending Unavailable Myrna, Cassie Attending Unavailable Myrna, Cassie Attending Unavailable Myrna, Cassie Admitting Unavailable Yehuda HASSAN Attending Unavailable INGE, DORA Washburn Attending Unavailable SARAH, SAMAR Referring Unavailable SARAH, SAMAR Referring Unavailable SARAH, SAMAR Referring Unavailable SARAH, MOUNAAR Attending Unavailable KIERANLEONOR Attending Unavailable SARAH, SAMAR Attending Unavailable Allergies Allergy ClassificationReported Allergen(s)Allergy TypeDate of OnsetReaction(s) Facility (20 sources)Ciprofloxacin; Translations: [ciprofloxacin]Drug Qebwqfk95-63-5069 Eruption of skin (disorder), Unknown, RashGeneral Surgery [place] (20 sources)Sulfonamides (Antibiotic); Translations: [Sulfa Drugs]Allergy to drug (finding)Eruption of skin (disorder)General Surgery [place] (20 sources)corn extract; Translations: [[place]]Drug Ssvtwpe60-77-5535Fsujisn (qualifier value), Other (See Comments)[facility] (19 sources)Dog; Translations: [Dogs]Allergy to substanceUnknown (qualifier value)[facility] (20 sources)Mold Extract; Translations: [mold]Drug Empwpdv85-53-3561Ubskbax (qualifier value), Other (See Comments)[facility] (19 sources)Milk Products; Translations: [Milk Products]Food allergyUnknown (qualifier value)[facility] (19 sources)house dust mite allergen extract; Translations: [house dust mite allergen extra]Allergy to substanceUnknown (qualifier value)[facility] (2 sources)CiprofloxacinDrug Cqdhnxi54-46-2808[facility] (1 source)house dust allergenic extractDrug AllergyThe [facility] (2 sources)LactoseDrug AllergyThe [facility] (1 source)Sulfonamides (Antibiotic)Drug allergy (disorder)[facility] (20 sources)Sulfonamides (Antibiotic); Translations: [SULFA (SULFONAMIDE ANTIBIOTICS)]Drug Sjiclgfyxtu93-75-1286Binrfsk, [facility] (16 sources)[place] Oil; Translations: [CORN OIL]Drug Qakzuuo90-04-3245Tpnswqqg, OtherNOUniversity Hospital (6 sources)Cow milkPropensity to adverse tpzeibewx17-25-3219ZptoeOAOJ Healthcare (6 sources)House dust miteAllergy to xvaqnusno07-97-1763AIA[facility] (6 sources)Mold ExtractDrug Ualsocz08-25-2916JjhymXTTO Healthcare (20 sources)Sulfamethoxazole / Trimethoprim; Translations: [SULFAMETHOXAZOLE-TRIMETHOPRIM]Drug Mbxyosq78-04-0537LcuwZfvFzhtru Health System (11 sources)Grenadian house dust mite allergenic extract / house dust mite allergenic extract; Translations: [ALLERG XT,D.FARINAE-D.PTERONYS]Drug Wqmbwzi16-99-7397IvuKamrxw Health System (14 sources)cow milk allergenic extract; Translations: [MILK]Drug Allergy 34-48-1658Fiuqk (See Comments)[facility] (2 sources)Sulfonamide; Translations: [sulfa drugs]Drug allergyEruption of skin (disorder)[facility] [place] (3 sources)DustPropensity to adverse biujgdiqk96-72-7099Zehjxyqjja;rasSt. [facility] (4 sources)dog dander; Translations: [DOG DANDER]Propensity to adverse reactions 31-17-6799QznzaSuburban [facility] & [facility] Medications Current Medications MedicationDrug Class(es)DatesSig (Normalized)Sig (Original)8 hr acetaminophen 650 mg extended release oral tablet (20 sources)Start: 73-03-4448kril 1 tablet by mouth twice dailyTylenol 8 HR Arthritis Pain 650 mg oral tablet, extended release 650 mg = 1 tab(s), Oral, BID, Refills(s) 0 Start Date: 07/01/20 Status: Ordered Medication Dispense Status: Completed Total Allowed Fills: 1 Fills Dispensed: 0Start: 11-19-2017 End: 31-85-6749aofi 2 tablets by mouth every four hours as needed for pain Acetaminophen 325 mg Tablet Discontinued 650 MG PO Q4H as needed for Pain November 19, 2017 1:00am August 03, 2025 2:11pmStart: 11-19-2017 End: 43-99-5639ssfu 1 tablet by mouth every four hours as needed for pain Acetaminophen 325 mg Tablet Discontinued 325 MG PO Q4H as needed for Pain November 19, 2017 1:00am August 03, 2025 11:25amStart: 11-08-2017 End: 58-98-8133tyba 1 tablet by mouth twice dailyAcetaminophen (Tylenol) 325 mg Tablet Discontinued 1 TAB PO Twice daily November 08, 2017 1:00am November 19, 2017 1:19pmtake 1 tablet by mouth every eight hours as needed for pain acetaminophen (TYLENOL ARTHRITIS) 650 mg 8 hr tablet Take 1 tablet (650 mg total) by mouth every 8 (eight) hours as needed for pain. Activeallopurinol 300 mg oral tablet (20 sources)Xanthine Oxidase InhibitorStart: 08-54-8216llzd 1 tablet by mouth once dailyallopurinol 300 mg Tab 300 mg = 1 tab(s), Oral, Daily, # 90 cap(s), Refills(s) 3, Pharmacy: [facility], 165, cm, 04/07/25 11:28:00 EDT, Height/Length Dosing, 90.9, kg, 04/07/25 11:28:00 EDT, Weight Dosing Start Date: 04/07/25 Status: Ordered Medication Dispense Status: Completed Quantity: 90.0 Unit: cap(s) Total Allowed Fills: 4 Fills Dispensed: 0Start: 10-25-2017 End: 78-53-3999wazn 1 tablet by mouth once dailyCalcium Carbonate (20 sources)Start: 23-31-2730axyk 1 tablet by mouth twice dailyCaltrate 600 + D tab(s), Oral, BID Start Date: 07/29/19 Status: Ordered Medication Dispense Status: Completed Total Allowed Fills: 1 Fills Dispensed: 0Start: 21-45-8526jetg 1 tablet by mouth twice dailyCaltrate 600 + D tab(s), Oral, BID Start Date: 07/29/19 Status: Ordered Repeat number: 1Start: 60-95-5983wjse 1 tablet by mouth twice dailyCaltrate 600 + D tab(s), Oral, BID Start Date: 07/29/19 Status: Ordered End: 52-36-6638ruwm 1 tablet by mouth in the morningcalcium carbonate 1500 (600 Ca) MG tablet Take 600 mg by mouth in the morning and 600 mg in the evening. Take with meals. ActiveCaltrate 600+D TABS Take 1 tablet daily Quantity: 0 Refills: 0 Ordered: 16-Aug-2021 DO ActiveCALCIUM CARBONATE-VITAMIN D3 ORAL (20 sources)take 1 tablet by mouth once dailyCALCIUM CARBONATE-VITAMIN D3 ORAL Take 1 tablet by mouth once daily. Activetake 1 tablet by mouth in the morning CALCIUM CARBONATE-VITAMIN D3 ORAL Take 1 tablet by mouth in the morning. Active Centrum Silver (15 sources)Start: 25-74-0522rwyd 1 tablet by mouth once dailyCentrum Silver 1 tab(s), Oral, Daily, Refill(s) 0 Start Date: 07/01/20 Status: Ordered Medication Dispense Status: Completed Total Allowed Fills: 1 Fills Dispensed: 0Start: 75-08-0402jmof 1 tablet by mouth once dailyCentrum Silver 1 tab(s), Oral, Daily, Refill(s) 0 Start Date: 07/01/20 Status: Ordered Repeat number:1Start: 07-01-2020 take 1 tablet by mouth once dailyCentrum Silver 1 tab(s), Oral, Daily, Refill(s) 0 Start Date: 07/01/20 Status: Orderedcholecalciferol 0.025 mg oral tablet (20 sources)Vitamin Dtake 1 tablet by mouth in the morningcholecalciferol (Vitamin D-[address]) 25 MCG (1000 UT) tablet Take 25 mcg by mouth in the morningand 25 mcg in the evening. Active End: 28-78-1652lriz 1 tablet by mouth in the morningcholecalciferol 1,000 units tablet Take 1 tablet (1,000 Units total) by mouth in the morning. 04/06/2025 Discontinued (Therapy completed)collagen/biotin/ascorbic acid (COLLAGEN 1500 PLUS C ORAL) (2 sources)collagen/biotin/ascorbic acid (COLLAGEN 1500 PLUS C ORAL) Take 1 capsule by mouth once daily. Activedapagliflozin 10 mg oral tablet (9 sources)Sodium-Glucose Cotransporter 2 InhibitorStart: 40-11-4450Pwfdfem 10 mg oral tablet 10 mg = 1 tab(s), Refills(s) 0 Start Date: 08/25/25 Status: Ordered Medication Dispense Status: Completed Total Allowed Fills: 1 Fills Dispensed: 0Start: 51-78-5087tube 1 tablet by mouth once dailyfexofenadine hydrochloride 180 mg oral tablet (20 sources)Histamine-1 Receptor AntagonistStart: 28-41-7284itqv 1 tablet by mouth once dailytake 1 tablet by mouth once dailyfexofenadine (Hannah) 60 mg tablet Take 1 tablet (60 mg) by mouth once daily. Activelevothyroxine sodium 0.112 mg oral tablet (20 sources)l-ThyroxineStart: 08-03-2025 End: 22-91-0143vzih 1 capsule by mouth once dailyLevothyroxine 137 mcg capsule Discontinued 137 MCG PO Daily August 03, 2025 12:00am August 03, 2025 2:11pm Start: 08-19-2024 End: 95-62-6501fifz 1 tablet by mouth in the morninglevothyroxine (SYNTHROID, LEVOTHROID) 112 MCG tablet TAKE 1 TABLET BY MOUTH IN THE MORNING 90 tablet 3 08/20/2025 ActiveStart: 02-20-2024 End: 37-62-1593ecgo 1 tablet by mouth once daily in the morninglevothyroxine (SYNTHROID, LEVOTHROID) 125 MCG tablet take 1 tablet by mouth every morning 90 tablet1 07/24/2024 08/19/2024 Discontinued (Dose adjustment)Start: 09-09-2023 End: 32-66-9602dgcu 1 tablet by mouth once daily in the morninglevothyroxine (SYNTHROID, LEVOTHROID) 137 MCG tablet take 1 tablet by mouth every morning 90 zcuqui6802/14/2024 02/20/2024 Discontinued (Dose adjustment)Start: 22-27-6728nehw 1 capsule by mouth once dailylevothyroxine 137 mcg (0.137 mg) oral capsule 137 microgram = 1 cap(s), Oral, Daily Start Date: 07/29/19 Status: Ordered Medication Dispense Status: Completed Total Allowed Fills: 1 Fills Dispensed: 0Start: 10-25-2017 End: 58-91-2386icsq 1 tablet by mouth once daily in the morningLevothyroxine 100 mcg Tablet Discontinued 100 MCG PO Every morning October 25, 2017 1:00am November 19, 2017 1:19pmlisinopril 2.5 mg oral tablet (20 sources)Angiotensin Converting Enzyme InhibitorStart: 06-30-2022 End: 32-45-8659amwfnhrfok 2.5 mg Tab Refills(s) 0 Start Date: 06/30/22 Status: Ordered Repeat number: 1losartan potassium 50 mg oral tablet (7 sources)Angiotensin 2 Receptor BlockerStart: 25-28-8326orefnmjq 50 mg Tab 50 mg = 1 tab(s), Refills(s) 0 Start Date: 08/25/25 Status: Ordered Medication Di spense Status: Completed Total Allowed Fills: 1 Fills Dispensed: 0losartan (COZAAR) 50 mg tablet Take 1 tablet (50 mg total) by mouth. Activelovastatin 10 mg oral tablet (20 sources)HMG-CoA Reductase InhibitorStart: 10-21-2022 End: 86-36-7356vjxa 1 tablet by mouth in the morninglovastatin (MEVACOR) 10 mg tablet TAKE 1 TABLET BY MOUTH IN THE MORNING 90 tablet 3 08/20/2025 ActiveMega Krill Oil (4 sources)Start: 28-71-8855qzxb 1 capsule by mouth once dailyMega Krill Oil Abelino Krill Oil, one cap., Oral, Daily Start Date: 07/29/19 Status: Ordered Multiple Vitamins-Minerals (CENTRUM SILVER ADULT 50+ PO) (9 sources)Multiple Vitamins-Minerals (CENTRUM SILVER ADULT 50+ PO) as directed Orally Fyvirilohwmqov-bab-wfhj-FA-vit K-lut (Centrum Silver Women) 8 mg iron-400 mcg-50 mcg tablet (2 sources)take 1 tablet by mouth once ogzzxfhydzrdg-lyq-ddet-FA-vit K-lut (Centrum Silver Women) 8 mg iron-400 mcg-50 mcg tablet Take 1 tabletby mouth once daily. Yxbduhxcdxrosf-vjb-cizv-FA-vit K-lut (CENTRUM SILVER WOMEN) 8 mg iron-400 mcg-50 mcg tablet (20 sources)take 1 tablet by mouth once in the tkuztuhqbgpwlcg-fih-fbfy-FA-vit K-lut (CENTRUM SILVER WOMEN) 8 mg iron-400 mcg-50 mcg tablet Take 1 tabletby mouth in the morning. ZwjqgeKlevqgtousox-Cvsbevoe-Igzitj tablet (3 sources)Start: 38-25-8873cfru 1 tablet by mouth once dailyStart: 08-03-2025 take 1 tablet by mouth once bpalgAzqlcyjguvqg-Dnfoafbw-Njkgmx tablet Active 1 TAB PO Daily August 03, 2025 12:00am Complies with drug therapyOmega-3 Fatty Acids (OMEGA-3 FISH OIL PO) (9 sources)[place]-3 Fatty Acids (OMEGA-3 FISH OIL PO) Take by mouth Activeomega-3 fatty acids-fish oil (One-Per-Day [place]-3) 684-1,200 mg capsule (2 sources)omega-3 fatty acids-fish oil (One-Per-Day [place]-3) 684-1,200 mg capsule Take 1 capsule (1,200 mg) by mouth once daily. ActiveOTC joint supplement (15 sources)Start: 86-67-7716xdbm 1 tablet by mouth once dailyOTC joint supplement OTC joint supplement, one tab, Oral, Daily Start Date: 07/01/20 Status: Ordered Medication Dispense Status: Completed Total Allowed Fills: 1 Fills Dispensed: 0Start: 27-32-8098iszf 1 tablet by mouth once dailyOTC joint supplement OTC joint supplement, one tab, Oral, Daily Start Date: 07/01/20 Status: Ordered Repeat number: 1Start: 60-56-1159yivs 1 tablet by mouth once dailyOTC joint supplement OTC joint supplement, one tab, Oral, Daily Start Date: 07/01/20 Status: OrderedPotassium Bicarb And Chloride 25 mEq tablet, effervescent (3 sources)Start: 22-97-8778vvye 1 tablet by mouth once dailyStart: 08-03-2025 take 1 tablet by mouth once dailyPotassium Bicarb And Chloride 25 mEq tablet, effervescent Active 25 EACH PO Daily August 032:00am Complies with drug therapypotassium bicarbonate 25 meq effervescent oral tablet (20 sources)Start: 69-99-9632ORAHV-K 25 mEq disintegrating tablet 12/08/2023 Activerivaroxaban 20 mg oral tablet (20 sources)Factor Xa InhibitorStart: 07-29-2019 End: 12-46-2183lqkr 1 tablet by mouth once dailyXarelto 20 mg oral tablet 20 mg = 1 tab(s), Daily Start Date: 07/29/19 Status: Ordered Medication Dispense Status: Completed Total Allowed Fills: 1 Fills Dispensed: 0sodium bicarbonate 650 mg oral tablet (6 sources)take 1 tablet by mouth oncesodium bicarbonate 650 MG tablet Take 650 mg by mouth 1 (one) time ActiveVitamin D3 (15 sources)Start: 01-14-1430uzol 1 dose by mouth once dailyVitamin D3 1,000 International_Unit, Oral, Daily, Refills(s) 0 Start Date: 07/29/19 Status: Ordered Medication Dispense Status: Completed Total Allowed Fills: 1 Fills Dispensed: 0Start: 33-97-3346Rvbkuor D3 1,000 International_Unit, Oral, Daily, Refills(s) 0 Start Date: 07/29/19 Status: Ordered Repeat number: 1Start: 67-82-3894Jmgaztc D3 1,000 International_Unit, Oral, Daily, Refills(s) 0 Start Date: 07/29/19 Status: Ordered Completed/Discontinued Medications MedicationDrug Class(es)DatesSig (Normalized)Sig (Original)acetaminophen 325 mg / oxyCODONE hydrochloride 5 mg oral tablet (6 sources)Opioid AgonistStart: 11-19-2017 End: 62-61-9545erve 2 tablets by mouth every four hours as needed for pain Oxycodone-Acetaminophen 5-325 mg Tablet Discontinued 2 TAB PO Q4H as needed for Pain scale 6-10 November 19, 2017 1:00am August 03, 2025 11:26amascorbic acid 500 mg oral tablet (3 sources)Vitamin CStart: 11-19-2017 End: 38-86-8871pflb 1 tablet by mouth twice daily at mealtimeAscorbic Acid (Vitamin C) (Vitamin C) 500 mg Tablet Discontinued 500 MG PO Twice daily with meals November 19, 2017 1:00am August 03, 2025 11:25amaspirin 81 mg chewable tablet (3 sources)Platelet Aggregation Inhibitor, Nonsteroidal Anti-inflammatory Drug Start: 10-25-2017 End: 20-45-7358acfq 1 tablet by mouth once daily in the eveningAspirin 81 mg Tablet,Chewable Discontinued 81 MG PO Every evening October 25, 2017 1:00am November 08, 2017 12:29pm5 ml bupivacaine hydrochloride 5 mg/ml injection (4 sources)Amide Local AnestheticStart: 09-02-2024 End: 16-82-1490iimayuvisud PF (Marcaine) 0.5 % injection 1 mLStart: 09-02-2024 End: mL, Injection, Once PRN Procedure, Starting on Sun09/02/24 at 1414, For 1 dosecalcium carbonate 1250 mg / cholecalciferol 200 unt oral tablet (6 sources)Vitamin DStart: 11-19-2017 End: 53-96-1535jqdx 1 tablet by mouth twice dailyCalcium Carbonate-Vitamin D3 (Oyster Shell Calcium-Vit D3) 500 mg(1,250mg) -200 unit Tablet Discontinued 1 TAB PO Twice daily November 19, 2017 1:00am August 03, 2025 2:11pmStart: 10-25-2017 End: 34-00-6557Qkdemvl Carbonate-Vitamin D3 (Caltrate 600 + D) 600 mg (1,500 mg)-800 unit Tablet,Chewable Discontinued 1 TAB PO Twice daily October 25, 2017 1:00am November 19, 2017 1:19pmCentrum Silver 50+Women Oral Tablet (7 sources)take 1 tablet by mouth once dailyCentrum Silver 50+Women Oral Tablet TAKE 1 TABLET DAILY. Quantity: 0 Refills: 0 Ordered: 16-Aug-2021 DO Active cephalexin 500 mg oral capsule (1 source)Cephalosporin AntibacterialStart: 74-89-0567xjqt 1 capsule by mouth once dailyKeflex 500 mg Cap 500 mg = 1 cap(s), Oral, Daily, Take 1 capsule the day before the procedure and 1capsule after the procedure, # 2 cap(s), Refills(s) 0, Pharmacy: [facility], 165, cm, 06/30/22 11:48:00 EDT, Height/Length Dosing, 113, kg, 06/30/22 11:4... Start Date: 08/22/22 Status : OrderedCollagen Ultra Oral Capsule (7 sources)take 1 capsule by mouth once dailyCollagen Ultra Oral Capsule TAKE 1 CAPSULE Daily Quantity: 0 Refills: 0 Ordered: 16-Aug-2021 DO Active diphenhydrAMINE hydrochloride 25 mg oral capsule (3 sources)Histamine-1 Receptor AntagonistStart: 11-19-2017 End: 77-20-3178mgzn 1 capsule by mouth once daily at bedtime as needed Diphenhydramine Hcl 25 mg Capsule Discontinued 25 MG PO Daily at bedtime as needed for Insomnia November 19, 2017 1:00am August 03, 2025 11:25am docusate sodium 100 mg oral capsule (3 sources)Start: 11-19-2017 End: 95-70-0297msxd 1 capsule by mouth three times dailyDocusate Sodium 100 mg Capsule Discontinued 100 MG PO Three times daily November 19, 2017 1:00am August 03, 2025 11:26amdronedarone 400 mg oral tablet (20 sources)AntiarrhythmicStart: 10-25-2017 End: 64-25-5795mdyr 1 tablet by mouth twice dailyDronedarone (Multaq) 400 mg Tablet Discontinued 400 MG PO Twice daily November 19, 2017 1:00am August 03, 2025 11:26amferrous sulfate 324 mg delayed release oral tablet (12 sources)Start: 11-19-2017 End: 23-87-7062xugz 1 tablet by mouth twice daily at mealtimeFerrous Sulfate 324 mg (65 mg iron) Tablet,Delayed Release (Dr/Ec) Discontinued 324 MG PO Twice don y with meals November 19, 2017 1:00am August 03, 2025 2:11pmStart: 11-08-2017 End: 85-26-1648jpzd 1 tablet by mouth once dailyFerrous Sulfate (Iron) 325 mg (65 mg iron) Tablet Discontinued 1 TAB PO Daily November 08, 2017 1:00am November 08, 2017 8:26amtake 1 tablet by mouth in the morningFerrous Sulfate (IRON PO) Take 1 tablet by mouth in the morning. Activefolic acid 1 mg / polysaccharide iron complex 150 mg / vitamin b12 0.025 mg oral capsule (3 sources)Vitamin G49Dyciy: 11-08-2017 End: 91-89-0279kuru 1 capsule by mouth once dailyIron Ps Zadmhfp-N84-Aqtpw Acid (Ferrex 150 Forte) 150-25-1 mg-mcg-mg capsule Discontinued 1 CAP PO Daily November 08, 2017 1:00am November 19, 2017 1:19pmK-Effervescent 25 mEq oral tablet, effervescent (11 sources)Start: 27-14-2196kxqc 1 tablet by mouth twice dailyK-Effervescent 25 mEq oral tablet, effervescent 25 mEq = 1 tab(s), Oral, BID, # 60 tab(s), Refills(s) 11, Pharmacy: [facility], 165, cm, 04/07/25 11:28:00 EDT, Height/Length Dosing, 90.9, kg, 04/07/25 11:28:00 EDT, Weight Dosing Start Date: 04/07/25 Status: Ordered Medication Dispense Status: Completed Quantity: 60.0 Unit: tab(s) Total Allowed Fills: 12 Fills Dispensed: 0Start: 04-07-2025 take 1 tablet by mouth twice dailyK-Effervescent 25 mEq oral tablet, effervescent 25 mEq = 1 tab(s), Oral, BID, # 60 tab(s), Refills(s) 11, Pharmacy: [facility], 165, cm, 04/07/25 11:28:00 EDT, Height/Length Dosing, 90.9, kg, 04/07/25 11:28:00 EDT, Weight Dosing Start Date: 04/07/25 Status: Ordered Quantity: 60.0 Unit: tab(s) Repeat number: 12Start: 10-26-2023 take 1 tablet by mouth twice dailyK-Effervescent 25 mEq oral tablet, effervescent 25 mEq = 1 tab(s), Oral, BID, # 60 tab(s), Refills(s) 11, Pharmacy: [facility], 165, cm, 10/26/23 8:42:00 EST, Height/Length Dosing, 97.5, kg, 10/26/23 8:42:00 EST, Weight Dosing Start Date: 10/26/23 Status: Orderedkrill oil 500 mg oral capsule (20 sources)Start: 08-03-2025 End: 96-86-7398Wonrm Oil 500 mg capsule Discontinued MG PO August 03, 2025 12:00am August 03, 2025 2:12pmStart: 62-76-3468zxjp 1 capsule by mouth in the otrgsshabznw-ec-0-xmz-trl-qfguoxb-ast (KRILL OIL) 1,256-403-49-80 mg capsule Take 1 capsule by mouth in the morning. 02/18/2024 ActiveKrill Oil 1000 MG capsule Orally Active End: 82-76-0763gvvzh oil 500 mg capsule Take by mouth daily. 08/18/2024 Discontinued (Patient Stopped On Own)Kktwm-Iq-2-Mlx-Orb-Rwoovio-Ast (Megared [place]-3 Krill Oil) 1,000-230-60 mg Capsule (3 sources)Start: 10-25-2017 End: 19-43-9795Qixqu-Xe-6-Pit-Nmy-Ktguwkw-Igo (Megared [place]-3 Krill Oil) 1,000-230-60 mg Capsule Discontinued 1 CAP PO Daily October 25, 2017 1:00am November 08, 2017 12:29pmloratadine 10 mg oral tablet (20 sources)Start: 10-25-2017 End: 80-62-2964kphn 1 tablet by mouth once daily as neededLoratadine 10 mg Tablet Discontinued 10 MG PO Daily as needed for Allergy Symptoms October 1:00am August 03, 2025 11:26am End: 49-72-2728tvkx 1 capsule by mouth once dailyloratadine 10 mg capsule Take 1 capsule by mouth once daily. 03/06/2024 Discontinued (Other)1 ml methylPREDNISolone acetate 40 mg/ml injection (4 sources)CorticosteroidStart: 09-02-2024 End: 34-62-7294bmvhpnNIPMKWMweavq acetate (DEPO-Medrol) injection 40 mgStart: 09-02-2024 End: 68-47-638701 mg, Intra-articular, Once PRN Procedure, Starting on Sun09/02/24 at 1414, For 1 doseMultivitamin (Multiple Vitamins) Tablet (3 sources)Start: 10-25-2017 End: 75-08-3770qhhz 1 tablet by mouth twice dailyMultivitamin (Multiple Vitamins) Tablet Discontinued 1 TAB PO Twice daily October 25, 2017 1:00am November 19, 2017 1:19pmMultivitamin With Folic Acid (Thera) 400 mcg Tablet (3 sources)Start: 11-19-2017 End: 46-87-8764pphy 1 tablet by mouth once dailyMultivitamin With Folic Acid (Thera) 400 mcg Tablet Discontinued 1 TAB PO Daily November 19, 2017 1:00am August 03, 2025 11:26amOmega 3 CAPS (7 sources)[place] 3 CAPS TAKE DIRECTED. Quantity: 0 Refills: 0 Ordered: 16-Aug-2021 DO Activesennosides, shelter 8.6 mg oral tablet (3 sources)Start: 11-19-2017 End: 01-61-0863xoei 2 tablets by mouth once daily as neededSennosides (Senna Lax) 8.6 mg Tablet Discontinued 2 TAB PO DAILY@12 as needed for If no BM in 2 days 0 November 19, 2017 1:00am August 03, 2025 11:26amtamsulosin hydrochloride 0.4 mg oral capsule (11 sources)alpha-Adrenergic BlockerStart: 08-03-2025 End: 68-09-7425ycii 1 capsule by mouth once dailyTamsulosin 0.4 mg capsule Discontinued 0.4 MG PO Daily August 03, 2025 12:00am August 03, 2025 2:12pm Start: 08-05-2024 End: 96-73-1917dksr 1 capsule by mouth once dailytamsulosin (Flomax) 0.4 MG 24 hr capsule Take 0.4 mg by mouth Daily 08/05/2024 Active Problems Active Problems Problem ClassificationProblemDateDocumented DateEpisodic/ChronicAcute and unspecified renal failure (20 sources)Renal failure syndrome; Translations: [Unspecified kidney failure] Onset: 345360-66-1607DjitujlEvjysgwwf-xlalyvi, conduct, and disruptive behavior disorders (2 sources)Attention deficit hyperactivity disorder; Translations: [Attention- deficit hyperactivity disorder, unspecified type]72-18-2282KtumkltNfkscpz tract disease (20 sources)Biliary calculus; Translations: [Calculus of gallbladder without cholecystitis without obstruction]Onset: 849422-88-4827TbbhltyhWaltpcjv of urinary tract (20 sources)Kidney stone; Translations: [Calculus of kidney]Onset: 06-30-2022 EpisodicCardiac dysrhythmias (20 sources)Paroxysmal atrial fibrillation; Translations: [Atrial fibrillation] Onset: 264127-50-0475ZrrsoroNvjhdft dysrhythmias (1 source)Sinus bradycardia; Translations: [Bradycardia, unspecified]08-28-2024 EpisodicChronic kidney disease (1 source)Chronic kidney disease, stage 2 (mild); Translations: [Chronic kidney disease, stage 2 (mild)]Onset: 07-64-1245EnpiuwiFvgfrvuj atherosclerosis and other heart disease (4 sources)Coronary arteriosclerosis; Translations: [Atherosclerotic heart disease of lime coronary artery without angina pectoris]Onset: 09-04-2025 51-56-0361EzmxadqLsrbdrhuzl and other anemia (1 source)Anemia; Translations: [Anemia, unspecified]16-37-7403KigppeekDabtvehq mellitus with complications (1 source)Type 2 diabetes mellitus with diabetic chronic kidney disease; Translations: [Type 2 diabetes mellitus with diabetic chronic kidney disease] Onset: 16-39-6626KgsdohaRgtabtde mellitus without complication (20 sources)Diabetes mellitus; Translations: [Type 2 diabetes mellitus without complications]Onset: 02-24-2023 Resolved: 634951-70-6918DtlnzpsGrlttnoks of lipid metabolism (20 sources)Hyperlipidemia; Translations: [Other and unspecified hyperlipidemia] Onset: 832756-40-2660XxnrllgDrbivhqpd hypertension (20 sources)Hypertensive disorder; Translations: [Essential (primary) hypertension]Onset: 962311-44-3183TdskwuuHnpznzhuxibjo symptoms and ill- defined conditions (20 sources)Genuine stress incontinence; Translations: [Stress incontinence (female) (male)]Onset: 148663-96-8677HnrfdotEskjlqdlrxnne symptoms and ill-defined conditions (20 sources)Microscopic hematuria; Translations: [Asymptomatic microscopic hematuria]Onset: 84-96-4372BvfjvbykCnzcy valve disorders (2 sources)Nonrheumatic aortic (valve) stenosis; Translations: [Nonrheumatic aortic (valve) stenosis]Onset: 59-29-3239HtwwasiFcvma valve disorders (15 sources)Irregular heart fraf22-07-1255MnnpqodtUhsgdagjdawg with complications and secondary hypertension (2 sources)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; Translations: [Hypertensive chronic kidney disease with stage 1 through stage 4 chronic kidney disease, or unspecified chronic kidney disease]Onset: 02-18-2024 20-75-3857PcwxlbpSgysj disorders and dislocations; trauma-related (6 sources)Chondromalacia of right patella; Translations: [Chondromalacia patellae, right knee]31-95-4142LgisyizYuuvlsafbtw deficiencies (1 source)Vitamin D deficiency, unspecified; Translations: [VITAMIN D DEFICIENCY UNSPECIFIED]Onset: 99-93-2372DbygtssWcldiavlhmlncr (20 sources)Arthritis of right knee; Translations: [Unilateral primary osteoarthritis, right knee]Onset: 199807-54-1763OjbagisGmwiu aftercare (7 sources)Drug therapy finding; Translations: [Long-term (current) use of anticoagulants]EpisodicOther aftercare (2 sources)Taking high risk medication; Translations: [Other halfway (current) drug therapy]Onset: 606670-34-7014FukxkfpeEzckj aftercare (2 sources)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 EHR CmteOther gastrointestinal disorders (4 sources)Bariatric surgery status; Translations: [BARIATRIC SURGERY STATUS] Onset: 93-15-4094EdxgksriQekih gastrointestinal disorders (3 sources)Constipation; Translations: [Constipation, unspecified]11-13-2017 EpisodicOther hereditary and degenerative nervous system conditions (20 sources)Minimal cognitive impairment; Translations: [Mild cognitive impairment, so stated]Onset: 036880-50-5896VxbjexgGjgqp nervous system disorders (8 sources)Disturbance of attention; Translations: [Attention and concentration deficit]Onset: 369345-99-4123FvudszlYuuve nervous system disorders (5 sources)Impaired cognition; Translations: [Other symptoms and signs involving cognitive functions and awareness]69-87-4234EpncbiefZdpzs nervous system disorders (3 sources)Postoperative pain ; Translations: [Other acute postprocedural pain] 99-34-6838QahdhuhqIaebqkv on above:Problem List clean-up per request of Phys. EHR CmteOther nervous system disorders (2 sources)Word finding difficulty ; Translations: [Other speech disturbances] 86-11-4430HbylsyqeLfbpm non-traumatic joint disorders (6 sources)Pain in right knee; Translations: [Pain in joint, lower leg] 29-40-3121EstgqjqpTsqcc non-traumatic joint disorders (3 sources)Decreased range of knee movement; Translations: [Stiffness of left knee, not elsewhere classified]35-92-0852NgwwldwmMrwejsj on above:Problem List clean-up per request of Phys. EHR CmteOther nutritional; endocrine; and metabolic disorders (20 sources)Body mass index 40+ - severely obese; Translations: [Body Mass Index 40.0-44.9, adult]02-83-7268ZqossnvGfcvg nutritional; endocrine; and metabolic disorders (1 source)Obesity; Translations: [Obesity, unspecified]ChronicOther nutritional; endocrine; and metabolic disorders (4 sources)Body mass index 30+ - obesity; Translations: [Body mass index (BMI) 36.0-36.9, adult]Onset: 343496-53-4221TgmrglmYvnfq nutritional; endocrine; and metabolic disorders (1 source)Obese class II; Translations: [Class 2 obesity]96-23-3914JfufdryZrrnf nutritional; endocrine; and metabolic disorders (3 sources)Body mass index (BMI) 35.0-35.9, adult; Translations: [Body mass index (BMI) 35.0-35.9, adult]Onset: 78-83-6776HzfvyfoEzzcg nutritional; endocrine; and metabolic disorders (2 sources)Body mass index (BMI) 36.0-36.9, adult; Translations: [Body mass index (BMI) 36.0-36.9, adult]Onset: 59-04-5726IqmtifhQagod nutritional; endocrine; and metabolic disorders (17 sources)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; Translations: [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 with serious comorbidity in adult]Onset: 846117-11-2258BfffnkxTtfne nutritional; endocrine; and metabolic disorders (1 source)Severe obesity; Translations: [Morbid (severe) obesity due to excess calories]52-88-7736CmvoaxuAmzmi nutritional; endocrine; and metabolic disorders (1 source)Obesity caused by energy imbalance; Translations: [Class 1 obesity due to excess calories with serious comorbidity and body mass index (BMI) of 33.0 to 33.9 in adult]44-36-4948LivolecYrouq nutritional; endocrine; and metabolic disorders (1 source)Other obesity due to excess calories; Translations: [Other obesity due to excess calories]Onset: 37-66-3784CwyfoqmWdlxa nutritional; endocrine; and metabolic disorders (1 source)Body mass index (BMI) 33.0-33.9, adult; Translations: [Body mass index (BMI) 33.0-33.9, adult]Onset: 99-37-2639HjimpsvXefrl nutritional; endocrine; and metabolic disorders (3 sources)Gilbert's syndrome; Translations: [Gilbert syndrome]23-81-3515Zuyqhwx Comment on above:Problem List clean-up per request of PhysMaite JACK CmteOther nutritional; endocrine; and metabolic disorders (1 source)History of diabetes mellitus type 2; Translations: [Personal history of other endocrine, nutritional and metabolic disease]05-96-1770SsrtcprdExbsu nutritional; endocrine; and metabolic disorders (1 source)Personal history of other endocrine, nutritional and metabolic disease; Translations: [Personal history of other endocrine, nutritional and metabolic disease]Onset: 83-32-3180GyelwwzpDsnb-; endo-; and myocarditis; cardiomyopathy (except that caused by tuberculosis or sexually transmitted disease) (20 sources)Cardiomyopathy; Translations: [Other primary cardiomyopathies]Onset: 264322-84-4181BlusfmbEsleochyr heart disease (2 sources)Pulmonary hypertension, unspecified; Translations: [Pulmonary hypertension, unspecified]Onset: 14-98-5413QiqgarlUfuhvnob codes; unclassified (20 sources)Sleep apnea; Translations: [Sleep apnea, unspecified]Onset: 095896-63-7247XvnzyihYgztlbaq codes; unclassified (4 sources)Obstructive sleep apnea syndrome; Translations: [Obstructive sleep apnea (adult) (pediatric)]02-85-1393LdmpojjTxtwzpuh codes; unclassified (1 source)Edema, unspecified; Translations: [EDEMA UNSPECIFIED]Onset: 02-24-2023 EpisodicResidual codes; unclassified (4 sources)Never smoked tobacco; Translations: [Other specified health status] Onset: 316918-69-4025WhbunjbnEobigdte codes; unclassified (13 sources)Amnesia; Translations: [Other amnesia]88-38-6252ZvviubzhHergdmkb codes; unclassified (1 source)Other amnesia; Translations: [Other amnesia]Onset: 95-66-2316Hznholdh Residual codes; unclassified (5 sources)Sleep deprivation; Translations: [Sleep deprivation]08-03-2025 EpisodicScreening and history of mental health and substance abuse codes (4 sources)Patient encounter status; Translations: [Encounter for screening for depression]98-89-3853NmpzhiqjEtggzww on above:Problem List clean-up per request of Phys. EHR CmteSepticemia (except in labor) (15 sources)Sepsis due to Tpyioabcelkv56-75-0939JmmaitheTdmwgyv disorders (20 sources)Hypothyroidism; Translations: [Unspecified acquired hypothyroidism] Onset: 915204-24-4833IvcrjitKndkvsdfmohl (13 sources)Asymptomatic microscopic hylfnowjd95-20-9450Tqawluskulep (15 sources)Drug therapy gxikvhu21-71-3732Dbmvmqgarani (1 source)GASTR-ESOPH RFLX DS ESPHGTS W/O BLD; Translations: [GASTR-ESOPH RFLX DS ESPHGTS W/O BLD]Onset: 81-56-8300Lkhakxiwqdqa (11 sources)Obstructive ndqwjwwxaehmka59-54-1960Colknnxisecs (1 source)Obesity, class 1; Translations: [Obesity, class 1]Onset: 07-09-2025 Unclassified (2 sources)Other ventricular tachycardia; Translations: [Other ventricular tachycardia]Onset: 65-88-2302Uggmmavqeyxt (1 source)Obesity, class 2; Translations: [Obesity, class 2]Onset: 10-13-2024 Unclassified (1 source)Genetic susceptibility to obesity; Translations: [Genetic susceptibility to obesity]Onset: 58-56-1730Gafudqhadodj (1 source)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; Translations: [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]Onset: 24-75-8831Pdawyypnyypl (1 source)TCM DEC -3 TBHOnset: 94-58-1797Jkuhmtbgpxat (3 sources)R41.3 - Other amnesiaUnclassified (1 source)Ventricular tachycardia, unspecified; Translations: [Ventricular tachycardia, unspecified]Onset: 64-79-3960Eksysmy tract infections (16 sources)Urinary tract infectious disease; Translations: [Urinary tract infection, site not specified]Onset: 968921-62-2252Jvvrcitz Past or Other Problems Problem ClassificationProblemDateDocumented DateEpisodic/ChronicDeficiency and other anemia (2 sources)Anemia, unspecified; Translations: [Anemia, unspecified]Onset: 98-21-3844OemajaqjBtscfsjfehkor and screening for infectious disease (2 sources)Needs influenza immunization; Translations: [Encounter for immunization]Onset: 969348-28-3781SsiysauoNera disorders (20 sources)Mood disordersOnset: 10-13-2024 Resolved: Other aftercare (4 sources)Encounter for surgical aftercare following surgery on the circulatory system; Translations: [ENC SURG AFTRCARE FLW SURG CIRC SYS]Onset: 05-31-2022 EpisodicOther and unspecified benign neoplasm (20 sources)Polyp of transverse colon; Translations: [Polyp of colon]Onset: 840070-46-8293WjpaftiuIscmh circulatory disease (20 sources)Carotid bruit; Translations: [Other symptoms involving cardiovascular system]Onset: 396061-76-8444BbgclxjkKpyjk circulatory disease (7 sources)H/O: hypertension; Translations: [Personal history of other diseases of circulatory system] Resolved: 54-68-0088UdizkilsJfvcj diseases of kidney and ureters (20 sources)Hydronephrosis with renal and ureteral calculous obstruction; Translations: [Calculus of ureter]Onset: 411732-17-4273YwtdrvwoXbewz nervous system disorders (3 sources)Other symptoms and signs involving cognitive functions and awareness; Translations: [Other symptomsand signs involving cognitive functions and awareness]Onset: 40-24-9427LrtaacvyHtanm nutritional; endocrine; and metabolic disorders (20 sources)Morbid obesity; Translations: [Morbid obesity]Onset: 03-01-2016 Resolved: 232436-44-5653BxjnfuePbqen nutritional; endocrine; and metabolic disorders (7 sources)H/O: diabetes mellitus; Translations: [Personal history of other endocrine, metabolic, and immunitydisorders] Resolved: 52-12-1752GlvyvttaTkrru screening for suspected conditions (not mental disorders or infectious disease) (20 sources)CT of abdomen abnormal; Translations: [Encounter for screening mammogram for malignant neoplasm of breast]Onset: 953901-93-3760Kqurwfjd Phlebitis; thrombophlebitis and thromboembolism (10 sources)Phlebitis and thrombophlebitis of superficial vessels of right lower extremity; Translations: [Phlebitis and thrombophlebitis of superficial vessels of left lower extremity]Onset: 16-66-9532DvglftoyKsyisijg codes; unclassified (1 source)Family history of malignant neoplasm of digestive organs; Translations: [FAM HX MALIG NEOPLASM DIGESTIV ORGN]Onset: 91-62-9683Tggtrevr Residual codes; unclassified (2 sources)Other specified health status; Translations: [Other specified health status]Onset: 52-86-7918FoxtvpxjWwrowfogakyl (1 source)Imaging result normal; Translations: [Normal coronary angiogram] Unclassified (5 sources)Never smoked tobacco; Translations: [Never a smoker]Unclassified (20 sources)Onset: 03-06-2024 Resolved: 874987-61-7152Bsbbtaifsyco (1 source)Ventricular tachycardia, unspecified; Translations: [Ventricular tachycardia, unspecified]Onset: 89-52-4955Mvokhgokprql (1 source)Other ventricular tachycardia; Translations: [Other ventricular tachycardia]Onset: 37-61-0017Ypxqfxll veins of lower extremity (5 sources)Varicose veins of bilateral lower extremities with pain; Translations: [VARICOSE VNS TANMAY LOW EXTREMW/PAIN]Onset: 89-54-9752Sbzyhfia Results Test NameValueInterpretationReference RangeFacilityOffice Visiton 09-04-2025 Follow-up [id number] AlfredoMiky 1950 F Date Provider Department Center 09/04/2025 [id number]-FWIJRXLUL SMITH BRAD Dougherty Family History Problem Relation Age of Onset Diabetes Mother Heart attack Father Coronary artery disease Brother Family Status - Relation Status Age at Mother Father Sister Brother Level of Service:94959 [place] OFFICE/OUTPATIENT ESTABLISHED MOD MDM 30 MIN Reason for Visit and Comments: Follow-up [643687] - 6 month follow up with labs Hyperlipidemia [182] Cardiomyopathy [104] - Non-ischemic Atrial Fibrillation [80] PSVT [Other]NormalMercy Health Clermont HospitalUrine Cytology ([facility])on 97-48-0399Uiuhv CytologyDiagnosis InfoInvalid Interpretation [facility] HospitalComment on above:Result Comment: A:Urine,Clean Catch:Voided Interpretation - Adequate cellularity for evaluation. CPT 23079 MicroScopic Description - Adequacy - Gross Description Site ID:A color Dark Yellow fixative Alcohol Specimen designated Clean Catch received in alcohol preservative and labeled with the patient?s name, consists of 60ml cloudy dark yellow fluid. Electronically signed by : on: 08/28/2025 11:02:46Performed By: #### [id number] #### Yuan [facility] [address], [place] [address]Mztqrwrgyk Visit Summaryon 30-20-2475Pohjemdkmn Visit Summary Ambulatory Visit Summary TRAM FUENTESN :1950 Visit Date:08/25/2025 Ambulatory Visit Instructions Your Diagnosis Gross hematuria Kidney stone Your Care Team Attending Physician - Myrna CARDONA, Cassie Primary Care Physician - CONNOR ANAYA DO This Is Your Medications List Non-Formulary Medication (OTC joint supplement) acetaminophen (Tylenol 8 HR Arthritis Pain 650 mg oral tablet, extended release) allopurinol (allopurinol 300 mg Tab) calcium-vitamin D (Caltrate 600 + D) cholecalciferol (Vitamin D3) dapagliflozin (Farxiga 10 mg oral tablet) levothyroxine (levothyroxine 137 mcg (0.137 mg) oral capsule) losartan (losartan 50 mg Tab) lovastatin (lovastatin 10 mg Tab) multivitamin with minerals (Centrum Silver) potassium bicarbonate (K-Effervescent 25 mEq oral tablet, effervescent) rivaroxaban (Xarelto 20 mg oral tablet) Procedures Performed Cystoscopy (09/05/2022), Cystoscopy (11/30/2020), Cystoscopy (07/14/2020), Cystoscopy (07/08/2020),ESWL - Extracorporeal shock wave lithotripsy of bile duct calculus (07/17/2019), Gastric sleeve (10/29/2015), H/O: hysterectomy, Renal artery stent, Repair of ventral hernia. Discharge Vitals Temperature (Tympanic) 37 ???C Heart Rate (Peripheral) 68 Respiratory Rate 16 Blood Pressure 132/70 Height 165 cm Height 65 in Weight 85.5 kg Weight 188.495 lb BMI 31.4 What to do next Scheduled Follow-Up Appointments Sunday 10:30 AM EST With: MO HAYDEN, Yehuda Haddad Where: [facility] [address] [address]- Medications What How Much When Instructions Unchanged [...] International unit By Mouth Every day Unchanged dapagliflozin (Farxiga 10 mg oral tablet) 1 Tablets Unchanged levothyroxine (levothyroxine 137 mcg (0.137 mg) oral capsule) 1 Capsules By Mouth Every day Unchanged losartan (losartan 50 mg Tab) 1 Tablets Unchanged lovastatin (lovastatin 10 mg Tab) Unchanged multivitamin with minerals (Centrum Silver) 1 Tablets By Mouth Every day Unchanged Non-Formulary Medication (OTC joint supplement) one tab By Mouth Every day Unchanged potassium bicarbonate (K-Effervescent 25 mEq oral tablet, effervescent) 1 Tablets By Mouth 2 times a day Unchanged rivaroxaban (Xarelto 20 mg oral tablet) 1 Tablets Every day Allergies Dunlap (Unknown) Dogs (Unknown) Milk Products (Unknown) Mold (Unknown) ciprofloxacin (Rash) house dust mite allergen extract (Unknown) sulfa drugs (Rash) Problems Ongoing - Any problem that you are currently receiving treatment for. Abnormal abdominal CT scan Anticoagulated BMI 40.0-44.9, adult BMI 45.0-49.9, adult CAD (coronary artery disease) Cholelithiasis Diabetes Enterobacter sepsis Gross hematuria Hyperlipidemia Hypertension Hypothyroidism Irregular heart beat Kidney stone Ureteral stone with hydronephrosis Urge incontinence UTI (urinary tract infection) Historical - Any problem that you are no longer receiving treatment for. Stress incontinence Patient Survey You may receive a survey via text or e-mail asking about your office visit. Please share your experience with us by completing your survey. We appreciate your feedback and thank you for choosing us for your care. Patient Portal You may access all of your results and other medical record information on our secure patient portal. If you are not signed up for this yet, please contact [employer] at [phone] to get signed up today. Language Information Language assistance services are available as needed. NormalWood County HospitalUrine Cytology ([facility])on 45-45-4386UY Method of ExtractionVoidedNoKettering Memorial HospitalComment on above:Performed By: #### [id number] #### [facility] [address], [place] [address]JC Number of Busi6Gkrwnos Interpretation CodeWood County HospitalComment on above:Performed By: #### [id number] #### [facility] [address], [place] [address]ZW SpecimenClean CatchNoKettering Memorial HospitalComment on above:Performed By: #### [id number] #### Yuan [facility] [address], [place] [address]RH Type of ServiceTechnical OnlyHolzer Medical Center – JacksonComment on above:Performed By: #### [id number] #### Yuan [facility] [address], [place] [address]Szqymba Office/Clinic Noteon 24-52-9815Mouzcbo Office/Clinic NoteUrology Office/Clinic Note Chief Complaint Pt here for gross hematuria HPI Staff Pt is a 75 year old female here for gross hematuria Previous Dx: kidney stone, gross hematuria. *Allopurinol 300mg qd therapy, effer-k 25 mEq bid Pt is unable to produce urine sample today she states that she voided prior to leaving home Pt reports that about 1 week ago she started to notice blood in her urine and then yesterday she thinks that she may have passed a stone and the blood in her urine stopped Pt denies pain/burning denies flank pain but did fall and injure her side and is not sure if the pain is from the fall *effer K History of Present Illness I have reviewed and verified the staff HPI to be accurate for this encounter. Review of Systems PHQ Score Initial Depression Screen Score: 0 SCORE no fever, chills, malaise, myalgia. no abdominal pain, nausea, vomiting. Physical Exam Vitals & Measurements T: 37 ???C(Tympanic) HR: 68(Peripheral) RR: 16 BP: 132/70 HT: 65 in HT: 165 cm WT: 85.5 kg WT: 188.495 lb BMI: 31.4 General: Well developed, well nourished, in no acute distress. Assessment/Plan 75 yo female pt here for gross hematuria x 1 week PRW pt 07/09/25 - Cr 0.77, GFR 80 1. Gross hematuria (R31.0: Gross hematuria) Hx of gross hematuria. No b.t. seen during stone procedure 09/11/24. No masses on CT wo 2022 or WILLARD 2023. Never smoker. No occupational exposures. Denies fam hx of urothelial CA. UA today w/ large blood only. She denies sx of infection. Reports painless gross hematuria x 1 week. Red/pink urine in toilet. Shares gross hematuria stoppedyesterday, which makes her think she passed a kidney stone. However, she denies any flank pain or actually seeing a stone pass. Discussed potential etiologies and implications of hematuria with patient. These include: trauma, Tumor, infection/inflammation, stones, period/menses (pseudohematuria), obstructive uropathy (urolithiasis, stricture, etc), nephritis, Tuberculosis, thrombosis, and hematologic. Urologic malignancy is more common in patients with gross hematuria (23%) than in patient with microscopic hematuria (5%). In adults with microscopic hematuria, the initial evaluation fails to identify an etiology in 43% of patients. Approximately 1-3% of these patients eventually develop a urologic malignancy. In adults with gross hematuria, the initial evaluation fails to identify an etiology in 8% of patients. Approximately, 18% of these patients eventually develop a urologic malignancy. Work-up needed: 1. Urine cytology 2. CT urogram. Denies allergies to IV con or metformin use. 3. Cystoscopy -Send urine for cytology, not enough for FISH today -Order CT Urogram. Order faxed to [facility]. -Will consult w/ PRW regarding cystoscopy pending CTU results Ordered: CT Urogram 2. Kidney stone (N20.0: Calculus of kidney) Hx of multiple lithotripsies in the past. Of note, pt had episodes of bradycardia w/ run of V tach during last stone surgery 09/11/24. S/p Laser litho of large right renal stones (3cm stone burden per PRW op note) 09/11/24. Stent removed 10/07/24. Pt taking Effer-K 25 mEq twice daily and allopurinol 300 mg daily [1] Last visit, metabolic evaluation reviewed w/ pt. Blood work looks good, specifically her serum uricacid level is low and her potassium level is WNL. 24hr Urine looks good. Needs to increase volume (1.6L) but otherwise her 24h values all look great on the allopurinol and Effer-K. Pt to cont both meds wo changes. KUB 02/27/25 - large L stone (13mm), large R stones (18mm). Imaging reviewed at last OV. Discussed repeat lithotripsy vs PCNL vs monitoring extensively. Pt preferred the latter. -See #1, will obtain CTU to better evaluate stone burden -Follow up as planned 10/19/25 w/ PRW, or sooner if needed 3. Urge incontinence (N39.41: Urge incontinence) Rare. BBSQ 7 (7) very good control. Not bothersome enough to warrant tx per pt. Continue to monitor. Orders: Body Mass Index (BMI) documented 3008F Current tobacco non-user 1036F Depression Screening Negative 3352F Fall Risk Screen 2 or more w/injury 1100F Influenza immunization status assessed 1030F Medication list documented in medical record 1159F Most recent diastolic blood pressure <80 mm Hg 3078F Review of all meds by a prescribing practitioner or clinical pharmacist documented in EHR 1160F Systolic BP 130-139 mm Hg (Most Recent) 3075F Urnls Dip Stick Auto w/o Microscopy POC 43489 Follow-up With When Contact Information MO HAYDEN, Yehuda Haddad, [address] [place] [address]- Additional Instructions: F/u as planned 10/19/25, or sooner if needed Patient Education Hematuria, Adult Problem List/Past Medical History Ongoing Abnormal abdominal CT scan Anticoagulated BMI 40.0-44.9, adult BMI 45.0-49.9, adult CAD (coronary artery disease) Cholelithiasis Diabetes Enterobacter sepsis Gross hematuria Hyperlipidemia Hypertens (more content not included)...[facility] JacksonComment on above:Result Comment: Electronically Signed By: Myrna CARDONA, Cassie\.br\Date and Time Signed: 08/25/25 11:12 EDTCOMPREHENSIVE METABOLIC PANELon 07-09-2025 Albumin [Mass/Vol]3.9 g/dLNormal3.2-5.3PAdena [facility] Ambulatory PPGComment on above:Performed By: #### CMP #### [facility] ([facility]) [address] [place] [address] VIRALP [Catalytic activity/Vol]94 U/RJwllpt31-197LupPgtuca [facility] Ambulatory PPGComment on above:Performed By: #### CMP #### [facility] ([facility]) [address] [place] [address] VIRALT [Catalytic activity/Vol]8 U/LNormal<=31PA[facility] Ambulatory PPGComment on above:Performed By: #### CMP #### [facility] ([facility]) [address] [place] [address] VIRAnion gap [Moles/Vol]6 mmol/LNormal5-15[facility] Ambulatory PPGComment on above:Performed By: #### CMP #### [facility] ([facility]) [address] [place] [address] VIRAST [Catalytic activity/Vol]14 U/LNormal<=41[facility] Ambulatory PPGComment on above:Performed By: #### CMP #### [facility] ([facility]) [address] [place] [address] VIRBilirubin [Mass/Vol]0.4 mg/dLNormal0.3-1.2PAdena [facility] Ambulatory PPGComment on above:Performed By: #### CMP #### [facility] ([facility]) [address] [place] [address] VIRCalcium [Mass/Vol]9.8 mg/dLNormal8.5-10.5PAdena [facility] Ambulatory PPGComment on above:Performed By: #### CMP #### [facility] ([facility]) [address] [place] [address] VIRChloride [Moles/Vol]105 mmol/VEqjtow07-923BaiPxfrww Hospital Ambulatory PPGComment on above:Performed By: #### CMP #### [facility] ([facility]) [address] [place] [address] VIRCO2 [Moles/Vol]31 mmol/MSkpzzf55-16NepBshylg Hospital Ambulatory PPGComment on above:Performed By: #### CMP #### [facility] ([facility]) [address] [place] [address] VIRCreatinine [Mass/Vol]0.77 mg/dLNormal0.40-1.00[facility] Ambulatory PPGComment on above:Result Comment: METHOD TRACEABLE TO IDMS STANDARDPerformed By: #### CMP #### [facility] ([facility]) [address] [place] [address] VIRGFR/1.73 sq M.predicted among non-blacks MDRD (S/P/Bld) [Vol rate/Area]80 mL/min/{1.73_m2}Normal>=60[facility] Ambulatory PPGComment on above:Result Comment: Reported eGFR is based on the CKD-EPI 2020 equation that does not use a race coefficient.Performed By: #### CMP #### [facility] ([facility]) [address] [place] [address] VIRGlucose [Mass/Vol]93 mg/tQGcwiyk91-01AluNpuevx Hospital Ambulatory PPGComment on above:Performed By: #### CMP #### [facility] ([facility]) [address] [place] [address] VIRPotassium [Moles/Vol]4.6 mmol/LNormal3.5-5.0[facility] Ambulatory PPGComment on above:Performed By: #### CMP #### [facility] ([facility]) [address] [place] [address] VIRProtein [Mass/Vol]6.9 g/dLNormal6.0-8.0[facility] Ambulatory PPGComment on above:Performed By: #### CMP #### [facility] ([facility]) [address] [place] [address] VIRSodium [Moles/Vol]142 mmol/TAwyjlj321-400FgwIqaorq Hospital Ambulatory PPGComment on above:Performed By: #### CMP #### [facility] ([facility]) [address] [place] [address] VIRUrea nitrogen [Mass/Vol]11 mg/dLNormal5-27[facility] Ambulatory PPGComment on above:Performed By: #### CMP #### [facility] ([facility]) [address] [place] [address] VIRHEMOGLOBIN A1Con 40-32-9225Ghwphcb [Mass/Vol]120 mg/dLNormal [facility] Ambulatory PPGComment on above:Performed By: #### HA1C #### [facility] ([facility]) [address] [place] [address] TZRJkM9b (Bld) [Mass fraction]5.8 %High4.4-5.6[facility] Ambulatory PPGComment on above:Result Comment: ADA Guidelines Result HgbA1c Normal : less than 5.7 % Prediabetes : 5.7 % to 6.4 % Diabetes : > 6.4 % Use with caution in patients with abnormal hemoglobin variants as the half-life of red blood cells and in vivo glycation rates are affected.Performed By: #### HA1C #### [facility] ([facility]) [address] [place] [address] VIRLIPID PROFILEon 96-14-1939Zlcpparkizn [Mass/Vol]150 mg/dL Gzxoix080-007DkrSlpcuj Hospital Ambulatory PPGComment on above:Performed By: #### LIPR #### [facility] ([facility]) [address] [place] [address] VIRCholesterol in HDL [Mass/Vol]59 mg/dLNormal>39[facility] Ambulatory PPGComment on above:Result Comment: HDL <40 mg/dL - High Risk HDL > or = 40mg/dL- Desirable HDL >60 mg/dL - Negative RiskPerformed By: #### LIPR #### [facility] ([facility]) [address] [place] [address] VIRCholesterol in LDL [Mass/Vol]79 mg/dLNormal<130[facility] Ambulatory PPGComment on above:Result Comment: LDL <100 mg/dL - Desirable LDL >160 mg/dL - High RiskPerformed By: #### LIPR #### [facility] ([facility]) [address] [place] [address] VIRCHOLESTEROL:HDL2.1Cewcsc4.0-5.0[facility] Ambulatory PPGComment on above:Performed By: #### LIPR #### [facility] ([facility]) [address] [place] [address] VIRTriglyceride [Mass/Vol]59 mg/kTHbhlsl20-183EalFdhuad Hospital Ambulatory PPGComment on above:Performed By: #### LIPR #### [facility] ([facility]) [address] [place] [address] VIRVERY LOW EKZQLJLNZBX86 mg/dLNormal0-30[facility] Ambulatory PPGComment on above:Performed By: #### LIPR #### [facility] ([facility]) [address] [place] [address] VIRTHYROID PROFILE INCLUDES TSH FT4on 16-85-1696Rnrr T4 [Mass/Vol]1.17 ng/dLNormal0.61-1.60[facility] Ambulatory PPGComment on above:Performed By: #### THYR #### [facility] ([facility]) [address] [place] [address] VIRTSH0.50 uIU/mLNormal0.49-4.67[facility] Ambulatory PPGComment on above:Performed By: #### THYR #### [facility] ([facility]) [address] [place] [address] VIRAmbulatory Visit Summaryon 68-40-9986Nzbdowzpug Visit SummaryAmbulatory Visit Summary MIKY FUENTES :1950 Visit Date:04/07/2025 [...] Cystoscopy (09/05/2022), Cystoscopy (11/30/2020), Cystoscopy (07/14/2020), Cystoscopy (07/08/2020),ESWL - Extracorporeal shock wave lithotripsy of bile [...] oral tablet) 1 Tablets Every day Allergies Dunlap (Unknown) Dogs (Unknown) Milk Products (Unknown) Mold [...] these instructions at home: Medicines ??? Take jixr-cxn-oulckrc and prescription medicines only as told by [...] keep your pee pale yellow. ? Take bgng-kfq-tyjqvpc or prescription medicines. ? Eat foods that [...] bandage (dressing). If soa (more content not included)...[facility]/Cl[facility] Noteon 79-37-0298Xeejcub Office/Clinic NoteUrology Office/Clinic Note Chief Complaint follow up with KUB, metabolic work up HPI Staff 74 yr old female here today for metabolic w/u w/KUB. KUB done 02/27/25 at [facility]. 24 hour urine dome 03/03/25 Previous [...] Needs to increase volume (1.6L) but otherwise her24h values all look great on the allopurinol [...] E&M of Est. Patient Moderate 30-39 Min 56341 Medication list documented in medical record 1159F [...] Urnls Dip Stick Auto w/o Microscopy POC 78745 XR Abdomen 1 View 2. Gross hematuria (R31.0: Gross hematuria) No recent gross hematuria. No b.t. seen during stone procedure a few mos ago. No masses on CT wo 2022 or WILLARD 2023. Does have microhematuria on UA today. No sx UTI so no indication to send for C&S. Ordered: E&M of Est. Patient Moderate 30-39 Min 82709 3. Urge incontinence (N39.41: Urge incontinence) Rare. BBSQ 7 very good control. Not bothersome enough to warrant tx per pt. Continue to monitor. Ordered: E&M of Est. Patient Moderate 30-39 Min 04349 Orders: allopurinol, 300 mg = 1 tab(s), Oral, Daily, # 90 cap(s), Refills(s) 3, Pharmacy: [facility] #[facility], 165, cm, 04/07/25 11:28:00 EDT, Height/Length Dosing, 90.9, kg, 04/07/25 11:28:00 EDT, Weight Dosing doxycycline, 100 mg = 1 cap(s), Oral, Daily, Take 1 pill the day before the procedure and 1 pill after the procedure, # 2 cap(s), Refills(s) 0, Pharmacy: [facility] #[facility], 165, cm, 07/15/2415:14:00 EDT, Height/Length Dosing, 97.5, kg, 07/15/24 15:14:00... potassium bicarbonate, 25 mEq = 1 tab(s), Oral, BID, # 60 tab(s), Refills(s) 11, Pharmacy: [facility] #[facility], 165, cm, 04/07/25 11:28:00 EDT, Height/Length Dosing, 90.9, kg, 04/07/25 11:28:00 EDT, Weight Dosing Follow-up With When Contact Information MO HAYDEN, PAWEL Dee In 6 months [facility] [place] [id number]- Additional Instructions: Patient Education Percutaneous Nephrolithotomy, Care [...] Cystoscopy (09/05/2022), Cystoscopy (11/30/2020), Cystoscopy (07/14/2020), Cystoscopy (07/08/2020),ESWL - Extracorporeal shock wave lithotripsy of bile [...] Daily Tylenol 8 H (more content not included)...[facility] Comment on above:Result Comment: Electronically Signed By: DORA ALACZAR PA-C\.br\Date and Time Signed: 04/07/2512:45 EDTMR BRAIN WO CONTon 65-20-4910IY BRAIN WO CONTMR BRAIN WO CONT MR BRAIN WO CONT CLINICAL INFORMATION: Memory loss, cognitive impairment COMPARISON: None PROCEDURE: Routine MRI Brain was obtained without intravenous contrast. Multisequence, multiplanar imaging was obtained. Volumetric 3-D series were sent for NeuroQuant dementia report(s), this is generated at an independent workstation, by a third alliance party vendor, to further assess anatomy. Images [...] Finalized by Isaias Coelho on 03/19/2025 10:42 AMNormalProCleveland Clinic Hillcrest Hospitalca [facility] CenterOffice Visiton 34-95-2817Mdyoqo-up [id number] Miky Fuentes 1950 F Date Provider Department Center 02/03/2025 LEONOR GARZA CARD [facility] Family History Problem Relation Age of Onset Diabetes Mother Heart attack Father Coronary artery disease Brother Family Status - Relation Status Age at Mother Father Sister Brother Level of Service:[address] [place] OFFICE/OUTPATIENT NEW MODERATE MDM 45 MINUTESNormal [facility] HospitalCBC AND AUTO DIFFon 60-37-1113DBRSJFMN BASOPHIL0.1 X10E9/LNormal0.0-0.2[facility] Osteopathic ClinicComment on above: Performed By: #### ARSENIO CMP, 2132-06 #### [facility] ([id number]) [address] [place], [place] [address]MKATEQBE NEUTROPHIL2.8 X10E9/LNormal1.5-6.6Pro[facility] Osteopathic ClinicComment on above:Performed By: #### CBCA CMP, 2132-06 #### [facility] ([id number]) [address] [place], [place] [address]Jipyquxac/100 WBC (Bld)2.1 %NormalRegency Hospital Cleveland East Comment on above:Performed By: #### CBCA, CMP, 2132-06 #### [facility] ([id number]) [address], [address] [place], [place] [address]Igwwvawcfgu (Bld) [#/Vol]0.1 10*3/uLNormal0.0-0.4ProCleveland Clinic Hillcrest Hospitalca [facility] [place] HospitalComment on above:Performed By: #### CBCA, CMP, 2132-06 #### [facility] ([id number]) [address], [address] [place], [place] [address]Tktfxacyjbn/100 WBC (Bld)1.7 %[facility] Comment on above:Performed By: #### CBCA, CMP, 2132-06 #### [facility] ([id number]) [address] [place], [place] [address]Lfvrplnhkjc distribution width (RBC) [Ratio]20.9 %High11.5-15.0 [facility] HospitalComment on above:Performed By: #### CBCA, CMP, 2132-06 #### [facility] ([id number]) [address], [address] [place], [place] [address]Glgedboekm (Bld) [Volume fraction]30.5 %Vcl01-66AnfGdyswr [facility] [place] HospitalComment on above:Performed By: #### CBCA, CMP, 2132-06 #### [facility] ([id number]) [address] [place], [place] [address]Xetarfcwci (Bld) [Mass/Vol]9.2 g/dLLow11.7-15.5Pro[facility]ica [facility] HospitalComment on above:Performed By: #### CBCA, CMP, 2132-06 #### [facility] ([id number]) [address] [place], [place] [address]Jhemdblbotp (Bld) [#/Vol]1.4 10*3/uLNormal1.0-3.5PAdena Pike Medical CenterComment on above:Performed By: #### CBCHenry CMP, 2132-06 #### [facility] ([id number]) [address] [place], [place] [address]Vwmtaaphkis/100 WBC (Bld)29.9 %NormalRegency Hospital Cleveland East Comment on above:Performed By: #### CBCHenry, CMP, 2132-06 #### [facility] ([id number]) [address] [place], [place] [address]QBL (RBC) [Entitic mass]20.0 eaAtl11-83HqkIbhbmsRegency Hospital Cleveland East Comment on above:Performed By: #### CBCHenry CMP, 2132-06 #### [facility] ([id number]) [address] [place], [place] [address]OIRT (RBC) [Mass/Vol]30.2 g/eYUwz27-52ObuEosuyxRegency Hospital Cleveland East Comment on above:Performed By: #### CBCHenry CMP, 2132-06 #### [facility] ([id number]) [address], [address] [place], [place] [address]VEW (RBC) [Entitic vol]66 kVUzp61-062LyoBsgjbzRegency Hospital [facility] East Comment on above:Performed By: #### CBCHenry, CMP, 2132-06 #### [facility] ([id number]) [address], [address] [place], [place] [address]Rhspqcjxm (Bld) [#/Vol]0.3 10*3/uLNormal0-0.9Reg[facility] Hospital Cleveland EastComment on above:Performed By: #### CBCA, CMP, 2132-06 #### [facility] ([id number]) [address] [place], [place] [address]Dzvpcwyrs/100 WBC (Bld)7.3 %NormalRegency Hospital [facility] East Comment on above:Performed By: #### CBCHenry CMP, 2132-06 #### [facility] ([id number]) [address] [place], [place] [address]Bjbjvsumvmy/100 WBC (Bld)59.0 %[facility] Comment on above:Performed By: #### CBCA CMP, 2132-06 #### [facility] ([id number]) [address] [place], [place] [address]Iaduvqvt mean volume (Bld) [Entitic vol]8.4 fLNormal7-12 ProMGuernsey Memorial HospitalComment on above:Performed By: #### CBCHenry CMP, 2132-06 #### [facility] ([id number]) [address] [place], [place] [address]Yanfbqaxh (Bld) [#/Vol]259 10*3/dENoidgs041-511LmxCodorx [place] HospitalComment on above:Performed By: #### ARSENIO CMP, 2132-06 #### [facility] ([id number]) [address] [place], [place] [address]CPC COUNT4.60 X10E12/LNormal3.80-5.20[facility] Comment on above:Performed By: #### CBCA, CMP, 2132-06 #### [facility] ([id number]) [address] [place], [place] [address]FVJ (Bld) [#/Vol]4.8 10*3/uLNormal4.0-11.0ProCity HospitalComment on above:Performed By: #### CBCA, CMP, 2132-06 #### [facility] ([id number]) [address] [place], [place] [address]HJU auto differentialon 21-36-7071Rmlxrzusa (Bld) [#/Vol]0.1 10*3/[facility] HospitalBasophils/100 WBC (Bld)2.1 %[facility] SpringfieldEosinophils (Bld) [#/Vol]0.1 10*3/[facility] HospitalEosinophils/100 WBC (Bld)1.7 %[facility] SpringfieldErythrocyte distribution width (RBC) [Ratio]20.9 %High11.5 - 15.0 %[facility] SpringfieldHematocrit (Bld) [Volume fraction]30.5 %Low35 - 47 %[facility] SpringfieldHemoglobin (Bld) [Mass/Vol]9.2 g/dLLow11.7 - 15.5 g/dLKettering Health SpringfieldInterpretation and review of laboratory resultsAbnormCleveland Clinic Lutheran HospitalLymphocytes (Bld) [#/Vol]1.4 10*3/[facility] HospitalLymphocytes/100 WBC (Bld)29.9 %[facility] SpringfieldMCH (RBC) [Entitic mass]20 pgLow27 - 34 [facility] Medical CenterMCHC (RBC) [Mass/Vol]30.2 g/dLLow32 - 36 g/dLKettering Health SpringfieldMCV (RBC) [Entitic vol]66 fLLow80 - 100 [facility] HospitalMonocytes (Bld) [#/Vol] 0.3 10*3/[facility] HospitalMonocytes/100 WBC (Bld)7.3 %[facility] SpringfieldNeutrophils (Bld) [#/Vol]2.8 10*3/[facility]wood HospitalNeutrophils/100 WBC (Bld)59 %[facility] SpringfieldPlatelet mean volume (Bld) [Entitic vol]8.4 fL7 - 12 [facility] HospitalPlatelets (Bld) [#/Vol]259 10*3/[facility] HospitalRBC (Bld) [#/Vol]4.6 10*6/[facility] HospitalWBC corrected for nucl RBC Auto (Bld) [#/Vol]4.8[facility] COMPREHENSIVE METABOLIC PANELon 27-35-7475Bjwdpzj [Mass/Vol]4.1 g/dLNormal 3.2-5.3ProMedRegency Hospital Toledo HospitalComment on above:Performed By: #### JOE CESAR, 2132-06 #### [facility] ([id number]) [address] [place], [place] [address]SAN [Catalytic activity/Vol]100 U/SYyfqjx03-095NtaOhbzsf Morris HospitalComment on above:Performed By: #### JOE CESAR, 2132-06 #### [facility] ([id number]) [address] [place], [place] [address]DAA [Catalytic activity/Vol]10 U/LNormal0-31ProMedRegency Hospital Toledo HospitalComment on above:Performed By: #### JOE CESAR, 2132-06 #### [facility] ([id number]) [address] [place], [place] [address]Puhys gap [Moles/Vol]9 mmol/LNormal5-15ProKind[facility] Comment on above:Performed By: #### JOE CESAR, 2132-06 #### [facility] ([id number]) [address] [place], [place] [address]LBU [Catalytic activity/Vol]15 U/LNormal0-41[facility]ica [facility] HospitalComment on above:Performed By: #### JOE CESAR, 2132-06 #### [facility] ([id number]) [address] [place], [place] [address]Xjgdjqxcu [Mass/Vol]0.5 mg/dLNormal0.3-1.2ProMeduab hospital Morris HospitalComment on above:Performed By: #### JOE CESAR, 2132-06 #### [facility] ([id number]) [address] [place], [place] [address]Ssucqfx [Mass/Vol]10.5 mg/dLNormal8.5-10.5PAdena Pike Medical CenterComment on above:Performed By: #### JOE CESAR, 2132-06 #### [facility] ([id number]) [address] [place], [place] [address]Hatvopwm [Moles/Vol]104 mmol/CHdqxln78-024YlwGftrvd [place] HospitalComment on above:Performed By: #### JOE CESAR, 2132-06 #### [facility] ([id number]) [address] [place], [place] [address]WC8 [Moles/Vol]27 mmol/OJdgivp68-26UemEvyrmfAdena Pike Medical Center Comment on above:Performed By: #### JOE CESAR, 2132-06 #### [facility] ([id number]) [address] [place], [place] [address]Mwymdqtllo [Mass/Vol]0.86 mg/dLNormal0.40-1.00ProCity HospitalComment on above:Result Comment: METHOD TRACEABLE TO IDMS STANDARD Performed By: #### JOE CESAR, 2132-06 #### [facility] ([id number]) [address] [place], [place] [address]AMP/1.73 sq M.predicted among non-blacks MDRD (S/P/Bld) [Vol rate/Area]71 mL/min/{1.73_m2}Normal>59ProCity HospitalComment on above: Result Comment: Reported eGFR is based on the CKD-EPI 1 equation that does not use a race coefficient.Performed By: #### JOE CESAR, 2132-06 #### [facility] ([id number]) [address] [place], [place] [address]Tfcjexw [Mass/Vol]104 mg/rPUcua15-78JykFejnqeRegency Hospital [facility] East Comment on above:Performed By: #### JOE CESAR, 2132-06 #### [facility] ([id number]) [address] [place], [place] [address]Gzrsgkbyd [Moles/Vol]5.1 mmol/LHigh3.5-5.0ProCity HospitalComment on above:Performed By: #### JOE CESAR, 2132-06 #### [facility] ([id number]) [address] [place], [place] [address]Lvzxqbe [Mass/Vol]7.2 g/dLNormal6.0-8.0[facility] Comment on above:Performed By: #### JOE CESAR, 2132-06 #### [facility] ([id number]) [address] [place], [place] [address]Xfntpe [Moles/Vol]140 mmol/TIcixra018-993AvbQxowzi [place] HospitalComment on above:Performed By: #### JOE CESAR, 2132-06 #### [facility] ([id number]) [address] [place], [place] [address]Dcle nitrogen [Mass/Vol]19 mg/dLNormal5-27ProCity HospitalComment on above:Performed By: #### JOE CESAR, 2132-06 #### [facility] ([id number]) [address] [place], [place] [address]Xotriqvja (Vitamin B12) [Mass/Vol]on 75-45-1326ItxLtuvuk Health SystemComprehensive metabolic panelon 42-00-5107Gqldepe [Mass/Vol]4.1 g/dL3.2 - 5.3 g/dLProMedica Health SystemALP [Catalytic activity/Vol]100 U/L39 - 130 U/L [facility] SystemALT No additional P-5'-P [Catalytic activity/Vol]10 U/L0 - 31 U/LProMedica Health SystemAnion gap [Moles/Vol]9 mmol/L5 - 15 mmol/L [facility] SystemAST [Catalytic activity/Vol]15 U/L0 - 41 U/[facility] CampusBilirubin [Mass/Vol]0.5 mg/dL0.3 - 1.2 mg/dLK[facility] Calcium [Mass/Vol]10.5 mg/dL8.5 - 10.5 mg/dLKettering Health SpringfieldChloride [Moles/Vol]104 mmol/L98 - 109 mmol/[facility] SystemCO2 [Moles/Vol]27 mmol/L22 - 32 mmol/[facility] SystemCreatinine [Mass/Vol]0.86 mg/dL0.40 - 1.00 mg/dLKettering Health SpringfieldComment on above:METHOD TRACEABLE TO [facility] STANDARDeGFR (CKD-EPI)non-race [id number]- [facility] HospitalComment on above: Reported eGFR is based on the CKD-EPI 2020 equation that does not use a race coefficient. Glucose [Mass/Vol]104 mg/gTWhgq82 - 99 mg/dLKettering Health [facility] Interpretation and review of laboratory resultsAbnormalKettering Health [facility] Potassium [Moles/Vol]5.1 mmol/LHigh3.5 - 5.0 mmol/[facility] Protein [Mass/Vol]7.2 g/dL6.0 - 8.0 g/dLFormerly [facility] Medical Centerodium [Moles/Vol]140 mmol/L134 - 146 mmol/[facility] SystemUrea nitrogen [Mass/Vol]19 mg/dL5 - 27 mg/dLSaint John Vianney HospitalPOCT urinalysis dipstick onlyon 83-75-6531Beoeqgwnuo (U)cloudUniversity Hospitals Beachwood Medical CenterExternal Poct Urine BilirubinModerateKettering Health SpringfieldExternal Poct Urine BloodLarSuburban Community Hospital & Brentwood HospitalExternal Poct Urine ColorredKettering Health SpringfieldExternal Poct Urine GlucoseNegativeKettering Health SpringfieldExternal Poct Urine KetonesTracePHolzer Medical Center – JacksonExternal Poct Urine Leukocyte EsteraseLarSuburban Community Hospital & Brentwood HospitalExternal Poct Urine NitriteNegativeKettering Health SpringfieldExternal Poct Urine Ph5.5PHolzer Medical Center – JacksonExternal Poct Urine Protein3+K[facility]tering Health SpringfieldComment on above:300mgExternal Poct Urine Specific Gravity1.025K[facility]tering Health SpringfieldExternal Poct Urine Urobilinogen1.0 [facility]ney HospitalURINE CULTUREon 15-72-6871Cbkddymg identified Cx Nom (U)CULTURE RESULTS <10,000 ORGANISMS/ML NORMAL URO GENITAL FLORANormalRegency Hospital Cleveland East Comment on above:Performed By: #### 630-4 #### [facility] ([id number]) [address], [address] [place], [place] [address]ZVDOASG B12on 65-22-2687Dmglddsve (Vitamin B12) [Mass/Vol]658 pg/gFYilupw034-397DhtWqlcij Marietta Osteopathic ClinicComment on above:Performed By: #### CBCA, [facility], 2132-06 #### [facility] ([id number]) [address], [address] [place], [place] [address]Emdjmtc B12on 29-63-8809Qhgenkwhu (Vitamin B12) [Mass/Vol]658 pg/mL180 - 914 pg/mLKettering Health Springfield36on 69-50-758212Xjknpqvgr CTA coronaries result from 11/27/2024: MD Maite Jacobs MA Inform patient that coronary CT angiogram showed mild to moderate coronary artery disease. No need for intervention. However it showed that her heart function is weak with ejection fraction of 37% which was not seen on her echo. Please repeat 2D echo with [facility] but please let her come to [facility] to have it done. Also arrange for her to be seen by Dr. Jones as soon as possible. The please add Farxiga 10 mg daily and Aldactone 25 mg daily to her current medical regimen and check BMP in 1 week. Spoke with patient and she agrees to have echo at [facility]. I told her I would send the 2 RX's to her pharmacy and call them to see if they could take free Farxiga voucher over the phone to save her a trip to the office. She will have labs 1 week after starting meds. BMP faxed to [facility]. Follow up made with Dr. Jones for 02/03/2025. I advised patient that we would call her with result and that she didn't have to wait until 02/03 for results. She verbalized understanding.Normal [facility] Clermont HospitalCREATININE, SERUMon 40-44-4834Xobmxdlklc [Mass/Vol]0.88 mg/dLNormal0.60-1.20UnMercy Health Perrysburg HospitalComment on above:Performed By: #### [id number] #### [facility] ([place]) [address] [place], [place] [address]YNZJCSOREQ FILTRATION RATE ML/MIN/1.73 SQ M.VTDBAQMEE55.9 mL/min/1.73m*2Normal>60.0UnMercy Health Perrysburg HospitalComment on above: Result Comment: The [facility]???s estimated glomerular filtration rate (eGFR) will [...] potential consequences that do not disproportionately affect anyone group of individuals.Performed By: #### [id number] #### [facility] ([facility]) [address] [place], [place] [address]NXB HEART CORONARY W IV CONTRAST W OR WO FFRCTon 66-78-5864XZS HEART CORONARY W IV CONTRAST W OR WO FFRCTCTA HEART CORONARY W IV CONTRAST W OR [...] surgery Electronically signed: Adriel Sher MD. Not VldtdInvalid Interpretation CodeUnMercy Health Perrysburg HospitalLabon [id number] Miky Fuentes 1950 F Date Provider Department Center 11/27/2024 2245-[facility] OPD LAB RESOURCE [facility] OPD LA Medical C No family history on fileNormalUniversTriHealthOffice Visiton 19-48-7268Qhrthj-up [id number] Miky Fuentes 1950 F Date Provider Department Center 10/17/2024 07902-[facility] No family history on file Level of Service:67834 [place] OFFICE/OUTPATIENT NEW MODERATE MDM 45 MINUTESNormal [facility] Clermont HospitalNo Panel Informationon 12-72-9319PvihcuyVIC Avila 09/02/2024 2:22 PM L Inj/Asp: R [...] discussed. Consent was given by the patient. Quorum HealthXR Knee - right 1 or 2 Viewson 24-14-7833Jdqqfjn Result: AP and Lateral weight bearing xray of right knee: Mild effusion, soft tissue unremarkable. 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 LouisPREHENSIVE METABOLIC PANELon 41-71-9030Oonapnt [Mass/Vol]3.9 g/dLNormal3.2-5.3PAdena Pike Medical Center Comment on above:Performed By: #### LELE, 22990-6, CMP #### [facility] ([id number]) [address], [address] [place], [place] [address]JDI [Catalytic activity/Vol]114 U/XDphqrm74-465EytWnogwl [place] HospitalComment on above:Performed By: #### LELE, 94885-6, CMP #### [facility] ([id number]) [address], [address] [place], [place] [address]CZY [Catalytic activity/Vol]15 U/LNormal0-31PAdena Pike Medical CenterComment on above:Performed By: #### ANTOINER, 55741-3, CMP #### [facility] ([id number]) [address], [address] [place], [place] [address]Etqsy gap [Moles/Vol]8 mmol/LNormal5-15[facility] Comment on above:Performed By: #### ANTOINER, 17597-5, CMP #### [facility] ([id number]) [address], [address] [place], [place] [address]CGN [Catalytic activity/Vol]20 U/LNormal0-41ProCleveland Clinic Hillcrest Hospitalca Morris HospitalComment on above:Performed By: #### LELE, 30686-2, CMP #### [facility] ([id number]) [address], [address] [place], [place] [address]Omrumvrjd [Mass/Vol]0.5 mg/dLNormal0.3-1.2ProMedRegency Hospital [place]edo HospitalComment on above:Performed By: #### LELE, 64373-2, CMP #### [facility] ([id number]) [address], [address] [place], [place] [address]Jlirkjl [Mass/Vol]10.4 mg/dLNormal8.5-10.5PMercy Health St. Joseph Warren Hospital HospitalComment on above:Performed By: #### LELE, 42165-0, CMP #### [facility] ([id number]) [address], [address] [place], [place] [address]Jcngwgxj [Moles/Vol]103 mmol/DInxsih91-626OnfUyxzbb [place] HospitalComment on above:Performed By: #### LELE, 70553-8, CMP #### [facility] ([id number]) [address], [address] [place], [place] [address]ZY4 [Moles/Vol]27 mmol/LCwpkti90-18WumFqxfwz [facility] Comment on above:Performed By: #### LELE, 47402-3, CMP #### [facility] ([id number]) [address], [address] [place], [place] [address]Sclcbftvia [Mass/Vol]0.80 mg/dLNormal0.40-1.00ProEncompass Health Rehabilitation Hospital Of Dothan Morris HospitalComment on above:Result Comment: METHOD TRACEABLE TO IDMS STANDARD Performed By: #### LELE, 58038-9, CMP #### [facility] ([id number]) [address], [address] [place], [place] [address]KXW/1.73 sq M.predicted among non-blacks MDRD (S/P/Bld) [Vol rate/Area]77 mL/min/{1.73_m2}Normal>59ProCity HospitalComment on above: Result Comment: Reported eGFR is based on the CKD-EPI 2020 equation that does not use a race coefficient.Performed By: #### LELE 87763-1, CMP #### [facility] ([id number]) [address], [address] [place], [place] [address]Oppycgq [Mass/Vol]99 mg/wFSktzru33-30EmkSraqsz [facility] Comment on above:Performed By: #### LELE 04781-2, CMP #### [facility] ([id number]) [address], [address] [place], [place] [address]Rcpawtzps [Moles/Vol]4.0 mmol/LNormal3.5-5.0ProCity HospitalComment on above:Performed By: #### LELE 32408-8, CMP #### [facility] ([id number]) [address], [address] [place], [place] [address]Ojutcvz [Mass/Vol]7.0 g/dLNormal6.0-8.0[facility] Comment on above:Performed By: #### LELE, 67860-1, CMP #### [facility] ([id number]) [address], [address] [place], [place] [address]Rtfdsh [Moles/Vol]138 mmol/HIkixbe605-500XzpYnwlbm [place] HospitalComment on above:Performed By: #### LELE, 21106-6, CMP #### [facility] ([id number]) [address], [address] [place], [place] [address]Sisf nitrogen [Mass/Vol]18 mg/dLNormal5-27ProCity HospitalComment on above:Performed By: #### LELE, 19437-5, CMP #### [facility] ([id number]) [address], [address] [place], [place] [address]Yruvrtennetub metabolic panelon 27-05-5004Pfuksdx [Mass/Vol]3.9 g/dL3.2 - 5.3 g/dLProMedica Health SystemALP [Catalytic activity/Vol]114 U/L39 - 130 U/LProMedica Health SystemALT No additional P-5'-P [Catalytic activity/Vol] 15 U/L0 - 31 U/LProMedica Health SystemAnion gap [Moles/Vol]8 mmol/L5 - 15 mmol/LProMedica Health SystemAST [Catalytic activity/Vol]20 U/L0 - 41 U/L ProMedicRiverView Health Clinic SystemBilirubin [Mass/Vol]0.5 mg/dL0.3 - 1.2 mg/dLProCleveland Clinic Hillcrest Hospitalca Health SystemCalcium [Mass/Vol]10.4 mg/dL8.5 - 10.5 mg/dLProOhiohealth Doctors Hospital System Chloride [Moles/Vol]103 mmol/L98 - 109 mmol/LProMedica Health SystemCO2 [Moles/Vol]27 mmol/L22 - 32 mmol/LPrFreeman Orthopaedics & Sports Medicineica Health SystemCreatinine [Mass/Vol] 0.8 mg/dL0.40 - 1.00 mg/dLCleveland Clinic Euclid Hospital SystemComment on above:METHOD TRACEABLE TO [facility] STANDARDeGFR (CKD-EPI)non-race todjxuhll24- [facility] SystemComment on above: Reported eGFR is based on the CKD-EPI 2020 equation that does not use a race coefficient. Glucose [Mass/Vol]99 mg/dL65 - 99 mg/dLProCleveland Clinic Hillcrest Hospitalca Health SystemPotassium [Moles/Vol]4 mmol/L3.5 - 5.0 mmol/LProMedica Health SystemProtein [Mass/Vol]7 g/dL6.0 - 8.0 g/dLProCleveland Clinic Hillcrest Hospitalca Health SystemSodium [Moles/Vol]138 mmol/L134 - 146 mmol/LProMedica Health SystemUrea nitrogen [Mass/Vol]18 mg/dL5 - 27 mg/dL [facility] SystemLipid 1996 panelon 57-04-0256Aqzcqhjqzlq [Mass/Vol]187 mg/dL150 - 200 mg/dLCleveland Clinic Euclid Hospital SystemCholesterol in HDL [Mass/Vol]66 mg/dL 39 - PINF mg/dLKettering Health SpringfieldComment on above: HDL <40 mg/dL - High Risk HDL > or = 40mg/dL- Desirable HDL >60 mg/dL - Negative Risk Cholesterol in LDL [Mass/Vol]107 mg/dLNINF - 130 mg/dLKettering Health Springfield Comment on above: LDL <100 mg/dL - Desirable LDL >160 mg/dL - High Risk Cholesterol in VLDL [Mass/Vol]14 mg/dL0 - 30 mg/dLKettering Health Springfield Cholesterol.total/Cholesterol in HDL [Mass ratio]2.8 {ratio}1.0 - 5.0Kettering Health SpringfieldTriglyceride [Mass/Vol]68 mg/dL27 - 150 mg/dLKettering Health SpringfieldCholesterol [Mass/Vol]187 mg/vTRokszg708-740FcbJeusvgRegency Hospital Cleveland East Comment on above:Performed By: #Chavo#Chavo ROYAL 02395-4, CMP #### [facility] ([id number]) [address], [address] [place], [place] [address]Vusnzjkdjyx in HDL [Mass/Vol]66 mg/dLNormal>39ProCity HospitalComment on above:Result Comment: HDL <40 mg/dL - High Risk HDL > or = 40mg/dL- Desirable HDL >60 mg/dL - Negative Risk Performed By: #### LELE, 85547-0, CMP #### [facility] ([id number]) [address], [address] [place], [place] [address]Pkjpjxfeese in LDL [Mass/Vol]107 mg/dLNormal<130ProKindred Healthcare HospitalComment on above:Result Comment: LDL <100 mg/dL - Desirable LDL >160 mg/dL - High Risk Performed By: #### LELE 51494-9, CMP #### [facility] ([id number]) [address], [address] [place], [place] [address]Gmladaycjdv in VLDL [Mass/Vol]14 mg/dLNormal0-30ProKindred Healthcare HospitalComment on above:Performed By: #### LELE 70029-4, CMP #### [facility] ([id number]) [address], [facility] [address] [place], [place] [address]ESNTOQYQOFR:HDL2.1Xrzndw7.0-5.0ProKindred Healthcare HospitalComment on above:Performed By: #### LELE 65956-4, CMP #### [facility] ([id number]) [address], [facility] [address] [place], [place] [address]Krbxhrxkvxus [Mass/Vol]68 mg/pGEdgsie00-264YiaKxrknp [place] HospitalComment on above:Performed By: #### LELE 87762-1, CMP #### [facility] ([id number]) [address], [address] [place], [place] [address]Zs Panel Informationon 84-16-0660LqlOkuvcgHolzer Medical Center – JacksonTHYROID PROFILEon 99-55-9715Cdgu T4 [Mass/Vol]1.33 ng/dLNormal0.61-1.60ProKindred Healthcare HospitalComment on above:Performed By: #### LELE, 59007-2, CMP #### [facility] ([id number]) [address], [address] [place], [place] [address]BOZ5.35 uIU/mLLow0.49-4.67Reg[facility] Hospital Cleveland EastComment on above:Performed By: #### THYR, 94344-3, CMP #### [facility] ([id number]) [address], [address] [place], [place] [address]Valatpp profile includes TSH FT4on 47-12-8992Dffw T4 [Mass/Vol] 1.33 ng/dL0.61 - 1.60 ng/dLKettering Health SpringfieldInterpretation and review of laboratory resultsAbnoSt. Luke's Hospital Qn0.35 m[IU]/LLowSaint John Vianney HospitalUrine Cytology ([facility])on 07-18-2024 Microscopic exam Cytology (U) [Interp]Diagnosis InfoInvalid Interpretation Code [facility] HospitalComment on above:Result Comment: A:Urine,Clean Catch:Voided Interpretation - Adequate but limited cellularity for evaluation. MicroScopic Description - The diagnostic interpretation is limited due to scant cellularity. Recommend repeat urine cytology and FISH testing. Adequacy - Adequate but limited Gross Description Site ID:A color light Yellow fixative Alcohol Specimen designated Clean Catch received in alcoholpreservative and labeled with the patient???s name, consists of 20ml cloudy light yellow fluid. Electronically signed by : on: 07/18/2024 12:47:49Performed By: #### [id number] #### [facility] [address] [place], [place] [address]Anonyjcpdc Visit Summaryon 18-50-2165Pkjqrzlhme Visit Summary Ambulatory Visit Summary MIKY FUENTES [...] Cystoscopy (09/05/2022), Cystoscopy (11/30/2020), Cystoscopy (07/14/2020), Cystoscopy (07/08/2020),ESWL - Extracorporeal shock wave lithotripsy of bile [...] When: Comments: pending review of imaging Where: [address] [place] [address]- Medications What How Much When Instructions Unchanged [...] Mouth 2 times a day Contact prescribing physicianif questions or concerns Unchanged cholecalciferol (Vitamin D3) [...] tablet) 1 Tablets Every day Contact prescribing physicianif questions or concerns Allergies Dunlap (Unknown) Dogs (Unknown) Milk Products (Unknown) Mold [...] hormone in the b (more content not included)...NormalWood County HospitalUrine Cytology ([facility])on 39-00-9632GL Method of ExtractionVoidedNormalWood County HospitalComment on above:Performed By: #### [id number] #### [facility] [address] [place], [place] [address]KH Number of Llpr3Qotvcix Interpretation [facility] God HospitalComment on above:Performed By: #### [id number] #### [facility] [address] [place], [place] [address]QC SpecimenClean CatchRachidGreater Baltimore Medical CenterComment on above:Performed By: #### [id number] #### [facility] [address] [place], [place] [address]PN Type of ServiceTechnical OnlyRachidGreater Baltimore Medical CenterComment on above:Performed By: #### [id number] #### [facility] [address] [place], [place] [address]Yjijiik Office/Clinic Noteon 43-73-6068Jiogmqc Office/Clinic NoteUrology Office/Clinic Note Chief Complaint f/u WILLARD and [...] with voice recognition artificial intelligence software, specifically [employer], [employer] and or [employer]. Substitutions may have occurred due to the [...] etc), Tumor (renal, urothelial, prostatic, urethral, etc), infection/inflammation (UTI, cystitis, recent catheterization, interstitial cystitis, radiation), [...] she would be willing to undergo stone procedure,if deemed necessary by PRW. -Will consult with PRW regarding most recent imaging, will schedule for follow- up with PRW to discuss further if necessary. -Continue Effer-K 25 mEq twice daily and allopurinol 300 mg daily Ordered: Urine Cytology ([facility]) Urnls Dip Stick Auto w/o Microscopy POC 89769 Follow-up With When Contact Information MO HAYDEN, Yehuda Haddad, URL [address] [id number]- Additional Instructions: pending review of imaging Patient Education Kidney Stones, [place]-as-Urkd Hematuria, Adult Problem List/Past Medical History Ongoing [...] Cystoscopy (09/05/2022), Cystoscopy (11/30/2020), Cystoscopy (07/14/2020), Cystoscopy (07/08/2020),ESWL - Extracorporeal shock wave lithotripsy of bile duct (more content not included)...Hol[facility] Medical Center – JacksonComment on above:Result Comment: Electronically Signed By: RAAD Back APRN, Aurora X\.br\Date and Time Signed: 07/15/24 15:39 EDTECG 12 Leadon 26-42-5361Lroln bradycardia with occasional PVCs Low voltage QRS Nonspecific ST change QTc 391 [facility] Work Phone: bASIC METABOLIC PANLon 05-59-5130Zilpa gap [Moles/Vol] 6 mmol/LNormal5-15Pro[facility]ica Marietta Osteopathic ClinicComment on above:Performed By: #### BMP, THYR #### [facility] ([id number]) [address], [address] [place], [place] [address]Vhhfilg [Mass/Vol]9.8 mg/dLNormal8.5-10.5ProMedica Marietta Osteopathic ClinicComment on above:Performed By: #### BMP, THYR #### [facility] ([id number]) [address], [address] [place], [place] [address]Doxpibav [Moles/Vol]106 mmol/YWavezu94-261BhlJapywc [place] HospitalComment on above:Performed By: #### LISA, THYR #### [facility] ([id number]) [address], [address] [place], [place] [address]OA5 [Moles/Vol]31 mmol/TGohitx70-54GqlTxndmpAdena Pike Medical Center Comment on above:Performed By: #### LISA, THYR #### [facility] ([id number]) [address] [place], [place] [address]Tekwvqsyps [Mass/Vol]0.90 mg/dLNormal0.40-1.00ProCity HospitalComment on above:Result Comment: METHOD TRACEABLE TO IDMS STANDARD Performed By: #### LISA, THYR #### [facility] ([id number]) [address], [address] [place], [place] [address]SIR/1.73 sq M.predicted among non-blacks MDRD (S/P/Bld) [Vol rate/Area]68 mL/min/{1.73_m2}Normal>59ProCity HospitalComment on above: Result Comment: Reported eGFR is based on the CKD-EPI 2020 equation that does not use a race coefficient.Performed By: #### LISA, THYR #### [facility] ([id number]) [address] [place], [place] [address]Faprzwn [Mass/Vol]105 mg/pXEryp54-22ZjfJfhdwnRegency Hospital [facility] Comment on above:Performed By: #### LISA, THYR #### [facility] ([id number]) [address], [address] [place], [place] [address]Bzgktazgs [Moles/Vol]4.2 mmol/LNormal3.5-5.0ProCity HospitalComment on above:Performed By: #### LISA, THYR #### [facility] ([id number]) [address], [address] [place], [place] [address]Gukvqd [Moles/Vol]143 mmol/DSejmwj551-664IaoDyahzv [place] HospitalComment on above:Performed By: #### BMP, THYR #### [facility] ([id number]) [address], [address] [place], [place] [address]Nbgh nitrogen [Mass/Vol]19 mg/dLNormal5-27ProCity HospitalComment on above:Performed By: #### LISA, THYR #### [facility] ([id number]) [address], [address] [place], [place] [address]Mqnop Metabolic Panelon 79-35-7653Igaxy gap [Moles/Vol]6 mmol/L5 - 15 mmol/[facility] SystemCalcium [Mass/Vol]9.8 mg/dL8.5 - 10.5 mg/dL [facility] Health SpringfieldChloride [Moles/Vol]106 mmol/L98 - 109 mmol/[facility] Health SystemCO2 [Moles/Vol]31 mmol/L22 - 32 mmol/[facility] Creatinine [Mass/Vol]0.90 mg/dL0.40 - 1.00 mg/dLKettering Health SpringfieldComment on above:METHOD TRACEABLE TO [facility] STANDARDeGFR (CKD-EPI)non-race mkrwuoemf[address] [place], [place] [address]Comment on above: Reported eGFR is based on the CKD-EPI 2020 equation that does not use a race coefficient. Glucose [Mass/Vol]105 mg/uJKjid74 - 99 mg/dLKettering Health Springfield Interpretation and review of laboratory resultsAbnormalCleveland Clinic Euclid Hospital System Potassium [Moles/Vol]4.2 mmol/L3.5 - 5.0 mmol/LProMedica Health SystemSodium [Moles/Vol]143 mmol/L134 - 146 mmol/[facility] SystemUrea nitrogen [Mass/Vol]19 mg/dL5 - 27 mg/dLSaint John Vianney Hospital THYROID PROFILEon 89-00-1017Gxhs T4 [Mass/Vol]1.92 ng/dLHigh0.61-1.60ProCity HospitalComment on above:Performed By: #### BMP, THYR #### [facility] ([id number]) [address], [address] [place], [place] [address]CTR2.58 uIU/mLNormal0.49-4.67ProCity HospitalComment on above:Performed By: #### BMP, THYR #### [facility] ([id number]) [address], [address] [place], [place] [address]Wxkarvu profile includes TSH FT4on 53-26-4520Bsqd T4 [Mass/Vol] 1.92 ng/dLHigh0.61 - 1.60 ng/dLKettering Health SpringfieldInterpretation and review of laboratory resultsAbnormCleveland Clinic Lutheran HospitalTS Qn0.58 m[IU]/LProMedica Mclaren Bay Special Care HospitalProUc West Chester HospitalAmbulatory Visit Summaryon 10-26-2023 Ambulatory Visit Summary MIKY FUENTES :1950 Visit Date:10/26/2023 Ambulatory Visit Instructions Your Diagnosis Ureteral stone with hydronephrosis Kidney stone Tests Performed Urnls Dip Stick Auto w/o Microscopy POC 77503 Your Care Team Attending Physician - Yehuda [...] Cystoscopy (09/05/2022), Cystoscopy (11/30/2020), Cystoscopy (07/14/2020), Cystoscopy (07/08/2020),ESWL - Extracorporeal shock wave lithotripsy of bile [...] AM EST With: Where: [facility] [address] [place] [place] [address] [place] [address]- \.br\ You Need to Schedule the Following Appointments\.br\ Follow Up with MO HAYDEN, Yehuda Haddad, URL When: \.br\ Where:\.br\ [address] [facility]\.br\ [place] [address].br\ Medications\.br\ What How Much When Instructions\.br\ New potassium bicarbonate (K-Effervescent 25 mEq oral tablet, effervescent) 1 Tablets By Mouth 2 times a day Refills: 11 Pickup at [facility]\.br\ Unchanged allopurinol (allopurinol 300mg Tab) 1 Tablets By Mouth Every day\.br\ [...] Mouth 2 times a day Contact prescribing physicianif questions or concerns \.br\ Unchanged levothyroxine (levothyroxine 137 mcg (0.137 mg) oral capsule) 1 Capsules By Mouth Every day Contact prescribing physician if questions or concerns \.br\ Unchanged lisinopril (lisinopril 2.5 mg Tab) Contact prescribing physician if questions or concerns \.br\Unchanged lovastatin (lovastatin 10 mg Tab) Contact prescribing [...] if questions or concerns \.br\ Pharmacy Information\.br\ [facility]: [address] [place], [place] [id number] [phone]\.br\ \.br\ What How Much When Why Comments\.br\ Stop Taking tamsulosin (Flomax 0.4 mg Cap) 1 Capsules By Mouth Every day Right flank pain Kidney stones Gross jessica turia\.br\ Test Results\.br\ Urnls Dip Stick Auto w/o Microscopy POC 75366 (10/26/2023)\.br\ Bilirubin Urine Dipstick - Negative\.br\ Blood Urine Dipstick - 3+ Large\.br\ Glucose Urine Dipstick - Negative\.br\ Ketones Urine Dipstick - Negative\.br\ Leukocytes Urine Dipstick - Negative\.br\ Nitrite Urine Dipstick - Negative\.br\ Protein Urine Dipstick - 2+ (100 mg/dl)\.br\ Specific [place] Urine Dipstick - 1.025\.br\ Urine Appearance Urine Dipstick - Slightly cloudy\.br\ Urine Color Urine Dipstick - Yellow\.br\ Urobilinogen Urine Dipstick - Normal 0.2-1 EU/dl\.br\ pH Urine Dipstick - 5\.br\ Allergies\.br\ Dunlap (Unknown)\.br\ Dogs (Unknown)\.br\ Milk Products (Unknown)\.br\ Mold (Unknown)\.br\ ciprofloxacin (Rash)\.br\ house dust mite allergen extract (Unknown)\.br\ sulfa drugs (Rash)\.br\ Problems\.br\ Ongoing - Any problem that you are currently receiving treatment for.\.br\ Abnormal abdominal CT scan\.br\ Anticoagulated\.br\ Asymptomatic microscopic hematuria\.br\ BMI 40.0-44.9, adult \.br\ BMI 45.0-49.9, adult\.br\ Cholelithiasis\.br\ Diabetes\.br\ Enterobacter sepsis\.br\ Gross hematuria\.br\ History of kidney stones\.br\ Hypertension\.br\ Hypothyroidism\.br\ Irregular heart beat\.br\ Kidney stone\.br\ Nocturia\.br\ Stress incontinence\.br\ Ureteral stone\.br\ Ureteral stone with hydronephrosis\.br\ Urinary frequency\.br\ Urinary urgency\.br\ UTI (urinary tract infection)\.br\ Patient Survey\.br\ You may receive a survey via text or e-mail asking about your office visit. Please share your experience with us by completing your survey. We appreciate your feedback and thankyou for choosing us for your care.\.br\ Education [...] for following this plan?\.br\ Reading food labels\.br\ \.br\? \.br\ Choose foods with no salt added or low-salt labels. Limit your salt (sodium) intake to l ess than 1,500 mg a day.\.br\ ? \.br\ Choose foods with calcium for each meal and snack. Try to eatabout 300 mg of calcium at each meal. Foods that contain 200?500 mg of calcium a serving include:\.br\ ? \.br\ 8 oz (237 mL) of milk, aoflete-wtzzgetkxvww-hvdev milk, and calcium-fortifiedfruit juice. Calcium- fortified means that calcium has been added to these drinks.\.br\ ? \.br\ 8 oz (237 mL) ofkefir, yogurt, and soy yogurt.\.br\ ? \.br\ 4 [...] calcium is recommended for you.\.br\ Shopping\.br\ ? \.br\Buy plenty of fresh fruits and vegetables. Most people do not need to avoid fruits and vegetables, even if these foods contain nutrients that may contribute to kidney stones.\.br\ ? \.br\ When shopping for convenience foods, choose:\.br\ ? \.br\ Whole pieces of fruit.\.br\ ? \.br\ Pre-made salads with dressing on the side.\.br\ ? \.br\ Low-fat fruit and yogurt smoothies.\.br\ ? \.br\ Avoid buyingfrozen meals or prepared deli foods. These can be high in sodium.\.br\ ? \.br\ Look for foods with live cultures, such as yogurt and kefir.\.br\ ? \.br\ Choose high-fiber grains, such as whole-wheat breads, oat bran, and wheat cereals.\.br\ Cooking\.br\ ? \.br\ Do not add salt to food when cooking.Place a salt shaker on the table and allow each person to add their own salt to taste.\.br\ ? \.br\Use vegetable protein, such as beans, textured vegetable protein (TVP), or tofu, instead of meat inpasta, casseroles, and soups.\.br\ Meal planning\.br\ ? \.br\ [...] week.\.br\ ? \.br\ Eat only one serving ea ch day of meat, poultry, fish, or seafood.\.br\ [...] breakfast.\.br\ ? \.br\ Have a salad and fruitFisher [facility] [phone] Dietary Guidelines to Help Prevent [...] ? 8 oz (237 mL) of milk, tjeezlx-vqwzpujyfqzh-eexyw milk, and calcium- fortifiedfruit juice. Calcium-fortified means that calcium has been [...] Spinach (cooked), rhubarb, beets, sweet potatoes, and Indonesian chard. ? Peanuts. ? Potato chips, croatian fries, and baked potatoes with skin on. ? Nuts and nut products. ? Chocolate. ? If you regularly take a diuretic medicine, make sure to eat at least 1 or 2 servings of fruits orvegetables that are high in potassium each day. These include: ? Avocado. ? Banana. ? [place], prune, carrot, or tomato juice. ? Baked [...] with your dietitian to find an eating planand weight loss strategies that work best for you. General information ? Talk to your health care provider and dietitian about taking daily supplements. Depending on yourhealth and the cause of your kidney stones, you may be told: ? Do not take high-dose supplements of vitamin C (1,000 mg a day or more). ? To take a calcium supplement. ? To take a daily probiotic supplement. ? To take other supplements such as magnesium, fish oil, or vitamin B6. ? Take awpp-gvv-bgkzmkq and prescription medicines only as told by your health care provider. Theseinclude supplements. What foods sh (more content not included)...[facility] [id number] - [id number]#1.00TIFF [facility] [id number]#1.00TIFFNormNoelle [facility] HospitalUrology Office/Clinic Noteon [id number] Office/Clinic NoteChief Complaint CT Review HPI Staff 2 wk f/u with KUB. Saw DAXA at prior OV. Previous Dx: R flank pain, kidney stones, gross hematuria. S/p ESWL 11/18/20. CT AP wo con done 10/11/23 at [facility].Was given Tamsulosin, however stopped taking after [...] 10/09/23, pt was having intermittent right flank painw/ gross hematuria. Pain and hematuria has since [...] Contact Information MO HAYDEN, Yehuda Haddad, URL [address] [place], [place] [id number]- Additional Instructions: 6 months Patient Education Dietary Guidelines to Help Prevent Kidney Stones Chantal Villa, personally scribed for Dr. Hassan on 10/26/2023 [...] Cystoscopy (09/05/2022), Cystoscopy (11/30/2020), Cystoscopy (07/14/2020), Cystoscopy (07/08/2020),ESWL - Extracorporeal shock wave lithotripsy of bile [...] BID OTC joint sup (more content not included)...[facility] Comment on above:Result Comment: Electronically Signed By: Yehuda HASSAN MD\.br\Date and Time Signed: 10/26/23 09:11 EST\.br\Electronically Co-Signed By: Chantal Bishop.jaison\Date and Time Co-Signed: 10/26/2309:09 ESTRAD - CT Reporton [id number] - CT Report [id number]#1.00TIFFNormalWood County HospitalRAD - CT [id number]#1.00TIFFNormal Bolden [facility] HospitalRAD - MISCon 65-10-8980PIG - MISC [id number]#1.00TIFFNormWVUMedicine Barnesville HospitalRAD - [id number]#1.00TIFFNoKettering Memorial HospitalAmbulatory Visit Summaryon [id number] Visit Summary MIKY FUENTES :1950 Visit Date:10/09/2023 Ambulatory Visit Instructions Your Diagnosis Gross hematuria Right flank pain Tests Performed Urnls Dip Stick Auto w/o Microscopy POC 07617 Your Care Team Attending Physician - DORA [...] Cystoscopy (09/05/2022), Cystoscopy (11/30/2020), Cystoscopy (07/14/2020), Cystoscopy (07/08/2020),ESWL - Extracorporeal shock wave lithotripsy of bile [...] Urnls Dip Stick Auto w/o Microscopy POC 66843 (10/09/2023) Bilirubin Urine Dipstick - Negative Blood Urine Dipstick - 3+ Large Glucose Urine Dipstick - Negative Ketones Urine Dipstick - Negative Leukocytes Urine Dipstick - Negative Nitrite Urine Dipstick - Negative Protein Urine Dipstick - 3+ (300 mg/dl) Specific [place] Urine Dipstick - >=1.030 Urine Appearance Urine Dipstick - Clear Urine Color Urine Dipstick - Yellow Urobilinogen Urine Dipstick - Normal 0.2-1 EU/dl pH Urine Dipstick - 5.5 Allergies Dunlap (Unknown) Dogs (Unknown) Milk Products (Unknown) Mold [...] you for choosing us for your care. [facility] Jackson[facility] Educationon 10-09-2023 Patient EducationUrology Hematuria, Adult Hematuria is blood in the urine. Blood may be visible in the urine, or it may be identified with a test. This condition can be caused by infections of the bladder, urethra, kidney, or prostate. Otherpossible causes include: ? Kidney stones. ? Cancer [...] blood in your urine, even if it ispainless or the blood stops without treatment. Blood in the urine, when it happens and then stops and then happens again, can be a symptom of a very serious condition, including cancer. There is no pain in the initial stages of many urinary cancers. Follow these instructions at home: Medicines ? Take bxaq-ynl-nlkvmoc and prescription medicines only as told by [...] Ask your health care provider, or the departmentthat is doing the test, when your results [...] the blood stops without treatment. ? Take mspr-hpc-bsphvza and prescription medicines only as told by your health care provider. ? Drink enough fluid to keep your urine pale yellow. This information is not intended to replace advice given to you by your health care provider. Make sure you discuss any questions you have with your health care provider. Document Revised: 06/15/2021 Document Reviewed: 06/15/2021 [email or web address] Patient Education ? 2022 [employer].[facility] Urology Office/Clinic Noteon [id number] Office/Clinic NoteChief Complaint Gross hematuria HPI Staff 73 year [...] mild and moderate. does not radiate. no nausea/vomiting/fever/chills +gross hematuria x3d, has since resolved feels [...] blockage from stone fragments, and need for a dditional procedures, among others. Full informed consent has been obtained. Will order General anesthesia. Flomax sent to help w stone passage. increase fluids. declines offer for pain meds/nausea meds. will call if things worsen. ER in meantime for severe pain, intractable vomiting, fever. Ordered: tamsulosin, 0.4 mg = 1 cap(s), Oral, Daily, # 30 cap(s), Refills(s) 0, Pharmacy: [facility] #72, 165, cm, 10/09/23 15:24:00 EST, Height/Length Dosing, 113, kg, 10/09/23 15:24:00 EST, Weight Dosing CT Abdomen w/o Contrast E&M of Est. Patient Moderate 30-39 Min 36282 2. Kidney stones (N20.0: Calculus of kidney) see #1 KUB from this spring showed several medium (6-7mm) R renal stones has had multiple lithotripsy in past Ordered: tamsulosin, 0.4 mg = 1 cap(s), Oral, Daily, # 30 cap(s), Refills(s) 0, Pharmacy: [facility], 165, cm, 10/09/23 15:24:00 EST, Height/Length Dosing, 113, kg, 10/09/23 15:24:00 EST, Weight Dosing CT Abdomen w/o Contrast E&M of Est. Patient Moderate 30-39 Min 19651 3. Gross hematuria (R31.0: Gross hematuria) see #1 Ordered: tamsulosin, 0.4 mg = 1 cap(s), Oral, Daily, # 30 cap(s), Refills(s) 0, Pharmacy: [facility], 165, cm, 10/09/23 15:24:00 EST, Height/Length Dosing, 113, kg, 10/09/23 15:24:00 EST, Weight Dosing CT Abdomen w/o Contrast E&M of Est. Patient Moderate 30-39 Min 01176 Urnls Dip Stick Auto w/o Microscopy POC 88441 Follow-up With When Contact Information INGE CARDONA, DORA Washburn, URL [address] [place] [address] [employer] (1) Additional Instructions: pending results of imaging/testing, [...] Cystoscopy (09/05/2022), Cystoscopy (11/30/2020), Cystoscopy (07/14/2020), Cystoscopy (07/08/2020),ESWL - Extracorporeal shock wave lithotripsy of bile [...] 400 mg, Oral, B (more content not included)...[facility] JacksonComment on above:Result Comment: Electronically Signed By: DORA ALCAZAR PA-C\Date and Time Signed: 10/09/2315:49 ESTCREATININEon 03-05-2023 Creatinine [Mass/Vol]1.16 mg/dLCritically high0.55-1.02[facility] Comment on above:Performed By: #### CREA #### [facility] [address] [address] [address] Alysha CotterGFR-AF RJGXNEOY47 mL/min/1.90i1Bbxungeout low>=60The [facility] HealthcareComment on above:Performed By: #### CREA #### [facility] [address] [address] [address] Alysha CotterGFR-NON AF TGODOLNR95 mL/min/1.51h9Yslmiyyhyp low>=60The [facility] HealthcareComment on above:Performed By: #### CREA #### [facility] [address] [place] [address] Dr. Encarnacion ChangCT ABD/PELVIS WO CONon [id number] ABD/PELVIS WO CONEXAMINATION: CT ABD/PELVIS WO CON HISTORY: Kidney stone [...] Electronically authenticated by: KYLE CHENEY Date: 2023-03-05 15:08[facility] CenterVITAMIN B1 (THIAMINE)on 21-09-4250Edh. B1, Whole Jhhti373.2 nmol/LGjugyl46.5-200.0The [facility] HealthcareComment on above:Performed By: #### VITB1T ####[facility] [address] [address]Dr. Alysha Longo AUTO DIFFon 34-68-5046GAZQ #0.1 103/ulNormal0.0-0.1The [facility] HealthcareComment on above:Performed By: #### CBC #### [facility] [address] [address] [address] Alysha Tracysophils/100 WBC (Bld)0.9 %Normal0.2-2.0[facility] Comment on above:Performed By: #### CBC #### [facility] [address] [address] [address] Alysha Andre #0.2 103/ulNormal0.0-0.7The [facility] HealthcareComment on above: Performed By: #### CBC #### [facility] [address] [address] [address] Alysha Cotterosinophils/100 WBC (Bld)3.0 %Normal0.9-7.0The [facility] Comment on above:Performed By: #### CBC #### [facility] [address] [address] [address] Alysha Cotterrythrocyte distribution width (RBC) [Ratio]13.9 %Ceajrz30.0-15.0 The [facility] HospitalComment on above:Performed By: #### CBC #### [facility] [address] [address] [address] Alysha Parkatocrit (Bld) [Volume fraction]39.5 %Dvndvp62.0-48.0The [facility] HealthcareComment on above:Performed By: #### CBC #### [facility] [address] [place] [address] Dr. Alysha MachucaHemoglobin (Bld) [Mass/Vol]12.7 g/uAGioafr33.0-16.0The [facility] HealthcareComment on above:Performed By: #### CBC #### [facility] [address] [place] [address] Dr. Alysha MachucaIG #0.01 10e3/ulNormal0.00-0.03The [facility] HealthcareCommymichigan medical center on above:Performed By: #### CBC #### [facility] [address] [place] [address] Dr. Alysha Hurtado %0.2 %Normal0.0-0.5The [facility] HealthcareComment on above: Performed By: #### CBC #### [facility] [address] [place] [address] Dr. Alysha Meek #1.7 103/ulNormal1.2-3.8The [facility] HealthcareCommymichigan medical center on above:Performed By: #### CBC #### [facility] [address] [place] [address] Dr. Alysha Childsmphocytes/100 WBC (Bld)30.7 %Zqzbzo98.5-60.0The [facility] HealthcareComment on above:Performed By: #### CBC #### [facility] [address] [place] [address] Dr. Alysha GillespieUAL DIFF REQNONormalThe Uk HealthcareComment on above: Performed By: #### CBC #### [facility] [address] [place] [address] Dr. Alysha Stanford (RBC) [Entitic mass]29.3 fiXhupst45.7-34.0The [facility] HealthcareComment on above:Performed By: #### CBC #### [facility] [address] [place] [address] Dr. Alysha Valladares (RBC) [Mass/Vol]32.2 g/gFSjfpky02.9-35.2The [facility] HealthcareComment on above:Performed By: #### CBC #### [facility] [address] [place] [address] Dr. Alysha ValladaresV (RBC) [Entitic vol]91.0 rSMiswfx94.0-99.0The [facility] HealthcareComment on above:Performed By: #### CBC #### [facility] [address] [place] [address] Dr. Alysha Bender #0.4 103/ulNormal0.3-0.8The [facility] HealthcareComment on above:Performed By: #### CBC #### [facility] [address] [place] [address] Dr. Alysha Lambocytes/100 WBC (Bld)6.8 %Normal1.7-12.0The [facility] Comment on above:Performed By: #### CBC #### [facility] [address] [place] [address] Dr. Alysha Naranjo #3.3 103/ulNormal1.4-6.5The [facility] HealthcareComment on above:Performed By: #### CBC #### [facility] [address] [place] [address] Dr. Alysha Oneillutrophils/100 WBC (Bld)58.4 %Ybztie98.0-75.0The [facility] HealthcareComment on above:Performed By: #### CBC #### [facility] [address] [place] [address] Dr. Alysha Gundersonlet mean volume (Bld) [Entitic vol]9.3 fLCritically low 9.5-13.5The [facility] HealthcareComment on above:Performed By: #### CBC #### [facility] [address] [place] [address] Dr. Yilan VuchnOCQ763 103/faRqkdpn598-318Muv Uk HealthcareComment on above: Performed By: #### CBC #### [facility] [address] [address] [address] Alysha MachucaRBC4.34 106/ulNormal4.20-5.40The [facility] on above:Performed By: #### CBC #### [facility] [address] [address] [address] Alysha MachucaWBC5.6 103/ulNormal4.0-11.0The [facility] HealthcareCommymichigan medical center on above: Performed By: #### CBC #### [facility] [address] [address] [address] Alysha MachucaFERRITINon 89-65-7365Pucmxtsq [Mass/Vol]36.0 ng/mLNormal8.0-252.0 The [facility] HealthcareComment on above:Performed By: #### FERR, B12FOL, FETIBC, VITAD ####[facility] [address] [address]Dr. Alysha MachucaIRON AND TIBCon 02-20-2023% YULIJCOKTD22.8 %NormalThe [facility] on above:Performed By: #### FERR, B12FOL, FETIBC, VITAD ####[facility] [address] [address]Dr. Alysha ChangIron [Mass/Vol]53.0 ug/fPNtsvzo45.0-170.0The [facility] on above:Performed By: #### FERR, B12FOL, FETIBC, VITAD ####[facility] [address] [address]Dr. Alysha MachucaTIBC DIRECT 335.0 ug/tTEysrqt824.0-450.0The [facility] on above:Performed By: #### FERR, B12FOL, FETIBC, VITAD ####[facility] [address] [address]DrMaite MachucaMAGNESIUMon 82-77-4580Ibxouotoi [Mass/Vol]1.9 mg/dLNormal1.8-2.4The [facility] HealthcareComment on above:Performed By: #### PHOS, CMP, MG #### [facility] [address] [place] [address] Dr. Alysha BrunoUSon 07-01-8844Khoimclzs [Mass/Vol]3.9 mg/dLNormal2.6-4.7 The [facility] HealthcareComment on above:Performed By: #### PHOS, CMP, MG #### [facility] [address] [place] [address] Dr. Alysha MachucaPROF 14(COMP METB)on 31-58-8052Lwkoezf [Mass/Vol]3.4 g/dLNormal 3.4-5.0The [facility] HealthcareComment on above:Performed By: #### PHOS, CMP, MG #### [facility] [address] [place] [address] Dr. Alysha MachucaAlbumin/Globulin [Mass ratio]0.9 {ratio}NormalThe [facility] HealthcareComment on above:Performed By: #### PHOS, CMP, MG #### [facility] [address] [place] [address] Dr. Alysha Cole [Catalytic activity/Vol]123 U/LCritically eyms46-247Mjw Uk HealthcareComment on above:Performed By: #### PHOS, CMP, MG #### [facility] [address] [place] [address] Dr. Alysha Burgess [Catalytic activity/Vol]21 U/THstppw27-74Yyl [facility] HealthcareComment on above:Performed By: #### PHOS, CMP, MG #### [facility] [address] [place] [address] Dr. Alysha Rubio gap [Moles/Vol]13.8 mmol/LNormalThe [facility] on above:Performed By: #### PHOS, CMP, MG #### [facility] [address] [place] [address] Dr. Alysha Yañez [Catalytic activity/Vol]15 U/EGoqvdy94-79Fbe [facility] HealthcareComment on above:Performed By: #### PHOS, CMP, MG #### [facility] [address] [place] [address] Dr. Alysha MachucaBilirubin [Mass/Vol]0.5 mg/dLNormal0.2-1.0[facility] Comment on above:Performed By: #### PHOS, CMP, MG #### [facility] [address] [place] [address] Dr. Alysha MachucaCalcium [Mass/Vol]9.6 mg/dLNormal8.5-10.1The [facility] Comment on above:Performed By: #### PHOS, CMP, MG #### [facility] [address] [place] [address] Dr. Alysha MachucaChloride [Moles/Vol]103 mmol/GAwnqpl27-700WzwChildren'S Hospital For Rehabilitation Comment on above:Performed By: #### PHOS, CMP, MG #### [facility] [address] [place] [address] Dr. Alysha MachucaCO2 [Moles/Vol]25.2 mmol/PRbkdga77.0-32.0[facility] Comment on above:Performed By: #### PHOS, CMP, MG #### [facility] [address] [place] [address] Dr. Alysha MachucaCreatinine [Mass/Vol]0.95 mg/dLNormal0.55-1.02The [facility] HealthcareComment on above:Performed By: #### PHOS, CMP, MG #### [facility] [address] [place] [address] Dr. Encarnacion ChangEGFR-AF LIBYAN>60Normal>=60The [facility] HealthcareComment on above:Performed By: #### PHOS, CMP, MG #### [facility] [address] [place] [address] Dr. Alysha CotterGFR-NON AF RIBVFSDY73 mL/min/1.35t3Xyevzuchxa low>=60The [facility] HealthcareComment on above:Performed By: #### PHOS, CMP, MG #### [facility] [address] [address] [address] Alysha MachucaGlobulin (S) [Mass/Vol]3.6 g/dLNoRegency Hospital CompanyComment on above:Performed By: #### PHOS, CMP, MG #### [facility] [address] [address] [address] Alysha MachucaGlucose [Mass/Vol]96 mg/pBVmlblx05-549PzgChildren'S Hospital For Rehabilitation Comment on above:Performed By: #### PHOS, CMP, MG #### [facility] [address] [address] [address] Alysha MachucaPotassium [Moles/Vol]4.0 mmol/LNormal3.5-5.1[facility] Comment on above:Performed By: #### PHOS, CMP, MG #### [facility] [address] [place] [address] Dr. Alysha MachucaProtein [Mass/Vol]7.0 g/dLNormal6.4-8.2[facility] Comment on above:Performed By: #### PHOS, CMP, MG #### [facility] [address] [address] [address] Alysha MachucaSodium [Moles/Vol]138 mmol/XNmudgz466-977DakChildren'S Hospital For Rehabilitation Comment on above:Performed By: #### PHOS, CMP, MG #### [facility] [address] [address] [address] Alysha MachucaUrea nitrogen [Mass/Vol]21.0 mg/dLCritically high7.0-18.0[facility] For RehabilitationComment on above:Performed By: #### PHOS, CMP, MG #### [facility] [address] [address] [address] Alysha MachucaUrea nitrogen/Creatinine [Mass ratio]22.1 mg/mgNoRegency Hospital CompanyComment on above:Performed By: #### PHOS, CMP, MG #### [facility] [address] [place] [address] Dr. Alysha Garg B12 AND FOLATEon 49-44-3383Pmxbhbkkf (Vitamin B12) [Mass/Vol] 652.0 pg/pHYrmwec363.0-986.0The [facility] HealthcareComment on above:Performed By: #### FERR, B12FOL, FETIBC, VITAD ####[facility] [address] [address]Dr. Alysha MachucaPbokvKTPLVB34.30 ng/mLNormal8.60-58.90The [facility] HealthcareComment on above:Performed By: #### FERR, B12FOL, FETIBC, VITAD ####[facility] [address] [address]Dr. Alysha MachucaVITAMIN D 25 OHon 27-52-4449JEG D 25-OH41.7 ng/mLNormalThe [facility] HealthcareCommymichigan medical center on above:Performed By: #### FERR, B12FOL, FETIBC, VITAD ####[facility] [address] [address]Dr. Alysha MachucaVIT D RANGESSEE BELOWChillicothe VA Medical CenterCommymichigan medical center on above: Result Comment: <20 ng/mL Vit D deficient 20 - <30 ng/mL Vit D insufficient 30 - 100 ng/mL Vit D sufficient >100 ng/mL Potential ToxicityPerformed By: #### FERR, B12FOL, FETIBC, VITAD ####[facility] [address] [address]Dr. Alysha SvenXR KUB 1 VIEWon 33-71-1281IW KUB 1 VIEW EXAMINATION: XR KUB 1 [...] Electronically authenticated by: KYLE CHENEY Date: 2023-02-20 15:57[facility] CenterOffice Visit (Cardiology)on 05-10-2176[place]-up visit Diagnoses/Problems Assessed Anticoagulated (V58.61) (Z79.01) Hyperlipidemia (272.4) (E78.5) Non-ischemic cardiomyopathy (425.4) (I42.8) Paroxysmal atrial fibrillation (427.31) (I48.0) Class 2 obesity with body mass index (BMI) of 36.0 to 36.9 in adult (278.00,V85.36) (E66.9,Z68.36) Never a smoker Orders Class 2 obesity with body mass index (BMI) of 36.0 to 36.9 in adult Healthy Weight Tips; Status:Complete; Done: 03Vcm8085 Some eating tips that can help you lose weight.; Status:Complete; Done: 06Dec2022 Hyperlipidemia Renew: Lovastatin 10 MG Oral Tablet; TAKE 1 TABLET DAILY DIRECTED Paroxysmal atrial fibrillation IO EKG Electrocardiogram- 12 Lead; Status:Complete; Done: 06Dec2022 SocHx: Never a smoker Tobacco Use Screening; Status:Complete; Done: 06Dec2022 Patient Instructions Please bring all medicines, vitamins, [...] symptoms of heart failure and ventricular arrhythmias towatch for and encouraged to call if they [...] MG Oral TabletTAKE 1 TABLET Twice daily [place] 3 [place] DIRECTED. Tylenol Arthritis Ext Relief [...] negative for complaint. Vitals Vital Signs Recorded: 20Nri3983 01:27PM Heart Rate43, Apical Fywtvxvg850, RUE, Sitting Glbgsuayq54, RUE, Sitting Height5 ft 5 in Duqvtt671 lb BMI Ykuefezsjh88.94 kg/m2 BSA Calculated2.07 Tobacco Useb) No PHQ-2 #1. Over the last 2 weeks have you felt down, depressed or hopeless? (If yes, answer PHQ-9 below)No PHQ-2 #2. Over the last 2 weeks have you felt little interest or pleasure in doing things? (If yes,answer PHQ-9 below)No Falls Screening (Age 18+)a) No falls within the last year EKG COMPLETED IN OFFICE Physical Exam Constitutional (more content not included)...NormalUH TouchworksTobacco Screening.on 50-03-2047Imnpg depression screening assessmentNo-[facility] MycooN 250 DO Work Phone: Fall risk assessmenta) No falls within the last year -[facility] [employer] 250 DO Work Phone: Tobacco use status CPHSb) NoMP-[facility] [employer] 250 DO Work Phone: VC INJ SCL [employer] ANALYTICAL STRATEGIST VEINSon 51-69-6575AR INJ SCL [employer]MOND ANALYTICAL STRATEGIST VEINSPatient: MIKY FUENTES Exam Date: 11/03/2022 : 1950 Gender:F Ordering : DR WILLARD SHARMA M.D. Admission #: [id number] Family : Order #: [id number] CLICK HERE TO VIEW EXAM RADIOLOGY REPORT PROCEDURE: VEIN CENTER INJECTION SCLEROSING SOLUTION MULTIPLE VEINS SAME COMPARISON: VC INJ SCL [employer] ANALYTICAL STRATEGIST VEINS, 10/27/2022. VC INJ SCL [employer] ANALYTICAL STRATEGIST VEINS, 10/16/2022. INDICATIONS: Pain co-occurrent and due [...] by: Willard Sharma MD on 11/03/2022 at 12:37[facility] CenterXR KUB 1 VIEWon 86-46-1990TN KUB 1 VIEWEXAMINATION: XR KUB 1 VIEW HISTORY: Kidney stone [...] Electronically authenticated by: KYLE CHENEY Date: 2022-11-03 12:52[facility] CenterVC INJ SCL EDMOND ANALYTICAL STRATEGIST VEINSon 02-30-0075AQ INJ SCL [employer] ANALYTICAL STRATEGIST VEINS Patient: MIKY FUENTES Exam Date: 10/27/2022 : 1950 Gender:F Ordering : DR WILLARD SHARMA M.D. Admission #: [id number] Family : Order #: [id number] CLICK HERE TO VIEW EXAM RADIOLOGY REPORT PROCEDURE: VEIN CENTER INJECTION SCLEROSING SOLUTION MULTIPLE VEINS SAME COMPARISON: VC INJ SCL [employer] ANALYTICAL STRATEGIST VEINS, 10/16/2022. VC INJ SCL [employer] ANALYTICAL STRATEGIST VEINS, 10/06/2022. INDICATIONS: Pain co-occurrent and due [...] by: Willard Sharma MD on 10/27/2022 at 11:46[facility] CenterVC INJ SCL [employer] ANALYTICAL STRATEGIST VEINSon 26-58-6109HR INJ SCL [employer] ANALYTICAL STRATEGIST VEINSPatient: MIKY FUENTES Exam Date: 10/16/2022 : 1950 Gender:F Ordering : DR WILLARD SHARMA M.D. Admission #: [id number] Family : Order #: [id number] CLICK HERE TO VIEW EXAM RADIOLOGY REPORT PROCEDURE: VEIN CENTER INJECTION SCLEROSING SOLUTION MULTIPLE VEINS SAME COMPARISON: VC INJ SCL [employer] ANALYTICAL STRATEGIST VEINS, 10/06/2022. INDICATIONS: Pain co-occurrent and due [...] by: Kyle Cheney M.D. on 10/17/2022 at 08:12[facility] CenterCREATININEon 31-27-1881Rxtmniucas [Mass/Vol]1.11 mg/dLCritically high 0.55-1.02The Uk HealthcareComment on above:Performed By: #### CREA ####[facility] [address] [place], [place] [address]Dr. Yilan ChangEGFR-AF JWXKMMDA43 mL/min/1.31i2Utazfpscnl low>=60[facility] on above:Performed By: #### CREA ####[facility] [address] [place], [place] [address]Dr. Yilan ChangEGFR-NON AF DBPPNJXL61 mL/min/1.26m5Ehvwtdwnpx low>=60The [facility] HospitalComment on above: Performed By: #### CREA ####[facility] [address] [place], [place] [address]EjMaite MachucaVC INJ SCL [employer] ANALYTICAL STRATEGIST VEINSon 44-01-4141US INJ SCL [employer] ANALYTICAL STRATEGIST VEINSPatient: MIKY FUENTES Exam Date: 10/06/2022 : 1950 Gender:F Ordering : DR WILLARD SHARMA M.D. Admission #: [id number] Family : Order #: [id number] CLICK HERE TO VIEW EXAM RADIOLOGY REPORT [...] by: Willard Sharma MD on 10/06/2022 at 13:45[facility] CenterVC CONSULT FOLLOWUPon 67-21-9586EC CONSULT FOLLOWUPPatient: MIKY FUENTES Exam Date: 09/26/2022 : 1950 Gender:F Ordering : DR WILLARD SHARMA M.D. Admission #: [id number] Family : Order #: [id number] CLICK HERE TO VIEW EXAM RADIOLOGY REPORT [...] by: Kyle Cheney M.D. on 09/26/2022 at 15:46[facility] CenterVC EXT VENOUS RT LIMITEDon 08-40-2032EG EXT VENOUS RT LIMITEDPatient: MIKY FUENTES Exam Date: 09/26/2022 : 1950 Gender:F Ordering : DR WILLARD SHARMA M.D. Admission #: [id number] Family : Order #: [id number] CLICK HERE TO VIEW EXAM RADIOLOGY REPORT [...] by: Kyle Cheney M.D. on 09/26/2022 at 15:44[facility] CenterVC INJ FOAM SCLERO W US MLTIon 24-06-9271RJ INJ FOAM SCLERO W US MLTI Patient: MIKY FUENTES Exam Date: 09/20/2022 : 1950 Gender:F Ordering : DR WILLARD SHARMA M.D. Admission #: [id number] Family : Order #: [id number] CLICK HERE TO VIEW EXAM RADIOLOGY REPORT [...] by: Kyle Cheney M.D. on 09/20/2022 at 15:43[facility] CenterVC CONSULT FOLLOWUPon 84-17-3321DQ CONSULT FOLLOWUPPatient: MIKY FUENTES Exam Date: 09/07/2022 : 1950 Gender:F Ordering : DR WILLARD SHARMA M.D. Admission #: [id number] Family : Order #: [id number] CLICK HERE [...] by: Willard Sharma MD on 09/07/2022 at 13:04[facility] CenterVC EXT VENOUS LT LIMITEDon 21-91-3756MQ EXT VENOUS LT LIMITEDPatient: MIKY FUENTES Exam Date: 09/07/2022 : 1950 Gender:F Ordering : DR WILLARD SHARMA M.D. Admission #: [id number] Family : Order #: [id number] CLICK HERE TO VIEW EXAM RADIOLOGY REPORT [...] by: Willard Sharma MD on 09/07/2022 at 11:59[facility] AUTO DIFFon 64-23-9400EFFR #0.0 103/ulNormal0.0-0.1[facility] For RehabilitationComment on above:Performed By: #### CBC #### [facility] [address] [place] [address] Dr. Encarnacion ChangBasophils/100 WBC (Bld)0.6 %Normal0.2-2.0[facility] Comment on above:Performed By: #### CBC #### [facility] [address] [place] [address] Dr. Alysha Andre #0.3 103/ulNormal0.0-0.7The Uk HealthcareComment on above: Performed By: #### CBC #### [facility] [address] [place] [address] Dr. Alysha Cotterosinophils/100 WBC (Bld)4.3 %Normal0.9-7.0[facility] Comment on above:Performed By: #### CBC #### [facility] [address] [place] [address] Dr. Alysha Cotterrythrocyte distribution width (RBC) [Ratio]14.6 %Xgzxym63.0-15.0 The Uk HealthcareComment on above:Performed By: #### CBC #### [facility] [address] [place] [address] Dr. Alysha MachucaHematocrit (Bld) [Volume fraction]39.7 %Itnnqh71.0-48.0The [facility] HealthcareComment on above:Performed By: #### CBC #### [facility] [address] [place] [address] Dr. Alysha MachucaHemoglobin (Bld) [Mass/Vol]13.1 g/jZBhrdph05.0-16.0The Uk HealthcareComment on above:Performed By: #### CBC #### [facility] [address] [place] [address] Dr. Alysha MachucaIG #0.01 10e3/ulNormal0.00-0.03The Uk HealthcareComment on above:Performed By: #### CBC #### [facility] [address] [place] [address] Dr. Alysha MachucaIG %0.2 %Normal0.0-0.5The [facility] HealthcareComment on above: Performed By: #### CBC #### [facility] [address] [place] [address] Dr. Alysha Meek #1.9 103/ulNormal1.2-3.8The [facility] HealthcareComment on above:Performed By: #### CBC #### [facility] [address] [place] [address] Dr. Alysha Childsmphocytes/100 WBC (Bld)29.5 %Omeywz17.5-60.0The [facility] HealthcareComment on above:Performed By: #### CBC #### [facility] [address] [place] [address] Dr. Alysha MachucaMANUAL DIFF REQNONormalThe Uk HealthcareComment on above: Performed By: #### CBC #### [facility] [address] [place] [address] Dr. Alysha Stanford (RBC) [Entitic mass]29.8 cbZcpkgw72.7-34.0The [facility] HealthcareComment on above:Performed By: #### CBC #### [facility] [address] [place] [address] Dr. Alysha ValladaresHC (RBC) [Mass/Vol]33.0 g/lEOvnkad67.9-35.2The Uk HealthcareComment on above:Performed By: #### CBC #### [facility] [address] [place] [address] Dr. Alysha ValladaresV (RBC) [Entitic vol]90.2 xQFdjiek27.0-99.0The [facility] HealthcareComment on above:Performed By: #### CBC #### [facility] [address] [place] [address] Dr. Alysha Bender #0.5 103/ulNormal0.3-0.8The [facility] HealthcareComment on above:Performed By: #### CBC #### [facility] [address] [place] [address] Dr. Alysha Lambocytes/100 WBC (Bld)7.0 %Normal1.7-12.0[facility] Comment on above:Performed By: #### CBC #### [facility] [address] [place] [address] Dr. Alysha Naranjo #3.8 103/ulNormal1.4-6.5The [facility] HealthcareComment on above:Performed By: #### CBC #### [facility] [address] [place] [address] Dr. Alysha Oneillutrophils/100 WBC (Bld)58.4 %Fzkxse91.0-75.0The [facility] HealthcareComment on above:Performed By: #### CBC #### [facility] [address] [place] [address] Dr. Alysha Gundersonlet mean volume (Bld) [Entitic vol]9.5 fLNormal9.5-13.5The [facility] HealthcareComment on above:Performed By: #### CBC #### [facility] [address] [place] [address] Dr. Alysha MachucaPLT235 103/fiTrsakm813-429Emr Uk HealthcareComment on above: Performed By: #### CBC #### [facility] [address] [address] [address] Alysha MachucaRBC4.40 106/ulNormal4.20-5.40The [facility] HealthcareComment on above:Performed By: #### CBC #### [facility] [address] [address] [address] Alysha MachucaWBC6.6 103/ulNormal4.0-11.0The [facility] HealthcareComment on above: Performed By: #### CBC #### [facility] [address] [address] [address] Alysha MachucaPROF CHEM 8 (BAS METB)on 89-04-6558Skxcc gap [Moles/Vol]7.7 mmol/LNormalThe Uk HealthcareComment on above:Performed By: #### BMP ####[facility] [address] [address]Dr. Alysha ChangCalcium [Mass/Vol]9.8 mg/dLNormal8.5-10.1The [facility] HealthcareComment on above:Performed By: #### BMP ####[facility] [address] [address]Dr.Alysha ChangChloride [Moles/Vol]104 mmol/LNormal 98-107The [facility] HealthcareComment on above:Performed By: #### BMP ####[facility] [address] [address]Dr.Alysha ChangCO2 [Moles/Vol]29.2 mmol/EGtgxga95.0-32.0The Uk HealthcareComment on above: Performed By: #### BMP ####[facility] [address] [address]Dr.Alysha ChangCreatinine [Mass/Vol]1.05 mg/dL Critically high0.55-1.02The [facility] HealthcareComment on above:Performed By: #### BMP ####[facility] [address] [address]Dr.Traceelan ChangEGFR-AF LIBYAN>60Normal>=60The [facility] HealthcareComment on above:Performed By: #### BMP ####[facility] [address] [address]Dr.Yilan ChangEGFR-NON AF IEXOBEFR55 mL/min/1.73m2 Critically low>=60The [facility] HealthcareComment on above:Performed By: #### BMP ####[facility] [address] [address]Dr. Yilan ChangGlucose [Mass/Vol]107 mg/dLCritically kbnc07-055Gkg [facility] Comment on above:Performed By: #### BMP ####[facility] [address] [place], [place] [address]Dr.Yilan ChangPotassium [Moles/Vol]3.9 mmol/LNormal3.5-5.1The [facility] HealthcareComment on above:Performed By: #### BMP ####[facility] [address] [place], [place] [address]Dr. Yilan ChangSodium [Moles/Vol]137 mmol/IIujuzh983-276Ubz Uk HealthcareComment on above:Performed By: #### BMP ####[facility] [address] [place], [place] [address]Dr.Yilan ChangUrea nitrogen [Mass/Vol]16.0 mg/dLNormal 7.0-18.0The [facility] HealthcareComment on above:Performed By: #### BMP ####[facility] [address] [place], [place] [address]Dr. Yilan ChangUrea nitrogen/Creatinine [Mass ratio]15.2 mg/mgNormalThe Uk HealthcareComment on above:Performed By: #### BMP ####[facility] [address] [place], [place] [address]Dr.Yilan ChangVC INJ FOAM SCLERO W US MLTIon 66-68-4389PK INJ FOAM SCLERO W US MLTIPatient: MIKY FUENTES Exam Date: 08/31/2022 : 1950 Gender:F Ordering : DR WILLARD SHARMA M.D. Admission #: [id number] Family : Order #: [id number] CLICK HERE TO VIEW EXAM RADIOLOGY REPORT [...] week, wear compressi (more content not included)... [facility]VC CONSULT FOLLOWUPon 85-99-3505KW CONSULT FOLLOWUP Patient: MIKY FUENTES Exam Date: 08/22/2022 : 1950 Gender:F Ordering : DR WILLARD SHARMA M.D. Admission #: [id number] Family : Order #: [id number] CLICK HERE TO VIEW EXAM RADIOLOGY REPORT [...] by: Willard Sharma MD on 08/22/2022 at 10:45[facility] CenterVC EXT VENOUS RT LIMITEDon 99-16-7610FS EXT VENOUS RT LIMITEDPatient: MIKY FUENTES Exam Date: 08/22/2022 : 1950 Gender:F Ordering : DR WILLARD SHARMA M.D. Admission #: [id number] Family : Order #: [id number] CLICK HERE TO VIEW EXAM RADIOLOGY REPORT [...] by: Willard Sharma MD on 08/22/2022 at 10:21[facility] CenterVC INJ FOAM SCLERO W US MLTIon 76-81-4970IQ INJ FOAM SCLERO W US MLTIPatient: MIKY FUENTES Exam Date: 08/17/2022 : 1950 Gender:F Ordering : DR WILLARD SHARMA M.D. Admission #: [id number] Family : Order #: [id number] CLICK HERE TO VIEW EXAM RADIOLOGY REPORT [...] was instructed to take (more content not included)...Normal [facility] HealthcareVC CONSULT FOLLOWUPon 68-45-6320QF CONSULT FOLLOWUPPatient: MIKY FUENTES Exam Date: 08/07/2022 : 1950 Gender:F Ordering : DR WILLARD SHARMA M.D. Admission #: [id number] Family : Order #: [id number] CLICK HERE TO VIEW EXAM RADIOLOGY REPORT [...] by: Willard Sharma MD on 08/07/2022 at 13:31[facility]VC EXT VENOUS LT LIMITEDon 73-78-4610CJ EXT VENOUS LT LIMITEDPatient: MIKY FUENTES Exam Date: 08/07/2022 : 1950 Gender:F Ordering : DR WILLARD SHARMA M.D. Admission #: [id number] Family : Order #: [id number] CLICK HERE TO VIEW EXAM RADIOLOGY REPORT [...] by: Willard Sharma MD on 08/07/2022 at 12:01[facility] CenterVC INJ FOAM SCLERO W US MLTIon 59-62-8257KT INJ FOAM SCLERO W US MLTIPatient: MIKY FUENTES Exam Date: 08/01/2022 : 1950 Gender:F Ordering : DR WILLARD SHARMA M.D. Admission #: [id number] Family : Order #: [id number] CLICK HERE TO VIEW EXAM RADIOLOGY REPORT [...] week, wear compr (more content not included)... [facility]VC CONSULT FOLLOWUPon 15-99-2829WI CONSULT FOLLOWUP Patient: MIKY FUENTES Exam Date: 07/17/2022 : 1950 Gender:F Ordering : DR WILLARD SHARMA M.D. Admission #: [id number] Family : Order #: [id number] CLICK HERE TO VIEW EXAM RADIOLOGY REPORT [...] by: Kyle Cheney M.D. on 07/17/2022 at 12:18[facility] CenterVC EXT VENOUS RT LIMITEDon 78-28-6387AA EXT VENOUS RT LIMITEDPatient: MIKY FUENTES Exam Date: 07/17/2022 : 1950 Gender:F Ordering : DR WILLARD SHARMA M.D. Admission #: [id number] Family : Order #: [id number] CLICK HERE TO VIEW EXAM RADIOLOGY REPORT [...] by: Kyle Cheney M.D. on 07/17/2022 at 12:14[facility] CenterVC INJ FOAM SCLERO W US MLTIon 56-65-0120YX INJ FOAM SCLERO W US MLTI Patient: MIKY FUENTES Exam Date: 07/12/2022 : 1950 Gender:F Ordering : DR WILLARD SHARMA M.D. Admission #: [id number] Family : Order #: [id number] CLICK HERE TO VIEW EXAM RADIOLOGY REPORT [...] weeks, to walk da (more content not included)...Normal [facility]VC CONSULT FOLLOWUPon 83-37-9403LH CONSULT FOLLOWUPPatient: MIKY FUENTES Exam Date: 06/30/2022 : 1950 Gender:F Ordering : DR WILLARD SHARMA M.D. Admission #: [id number] Family : Order #: [id number] CLICK HERE TO VIEW EXAM RADIOLOGY REPORT [...] by: Willard Sharma MD on 06/30/2022 at 13:21[facility]VC EXT VENOUS LT LIMITEDon 80-65-9473AO EXT VENOUS LT LIMITEDPatient: MIKY FUENTES Exam Date: 06/30/2022 : 1950 Gender:F Ordering : DR WILLARD SHARMA M.D. Admission #: [id number] Family : Order #: [id number] CLICK HERE TO VIEW EXAM RADIOLOGY REPORT [...] by: Willard Sharma MD on 06/30/2022 at 13:02[facility] ALBUMIN, RANDOM URINE W/CREATININEon 85-10-8271PXKVFXD, URINE12.7 mg/dLNormalSee Note:[facility] DiagnosticsComment on above:Result Comment: Reference Range: Reference Range Not establishedPerformed By: #### 7600, 496, 51573, 6517 #### [facility] [address], [address] [place] [address] Diet Therapist: Marek Subramanian MDALBUMIN/CREATININE RATIO, RANDOM URINE62 mcg/mg creatHigh<30Quest DiagnosticsComment on above:Result Comment: The ADA defines abnormalities in albumin excretion as follows: Albuminuria Category Result (mcg/mg creatinine) Normal to Mildly increased <30 Moderately increased 30-299 Severely increased > OR = 300 The ADA recommends that at least two of three specimens collected within a 3-6 month period be abnormal before considering a patient to be within a diagnostic category.Performed By: #### 7600, 496, 30099, 6517 #### [facility] [place] [address] Diet Therapist: Marek Subramanian MDCreatinine (U) [Mass/Vol]205 mg/mKNabxwr11-071 [facility] DiagnosticsComment on above:Performed By: #### 7600, 496, 30790, 6517 #### [facility] [place] [address] Diet Therapist: Marek LINARESOMPREHENSIVE METABOLIC PANEL 06-26-2022 Albumin [Mass/Vol]3.9 g/dLNormal3.6-5.1Quest DiagnosticsComment on above: Performed By: #### 7600, 496, 64361, 6517 #### [facility] [place] [address] Diet Therapist: Marek Subramanian MDAlbumin/Globulin [Mass ratio]1.4 {ratio}Normal 1.0-2.5Quest DiagnosticsComment on above:Performed By: #### 7600, 496, 05655, 6517 #### [facility] [place] [address] Diet Therapist: Marek Subramanian MDALP [Catalytic activity/Vol]106 U/LNormal 37-153Quest DiagnosticsComment on above:Performed By: #### 7600, 496, 74103, 6517 #### [facility] of [address], [address] [place] [address] Diet Therapist: Marek Subramanian MDALT [Catalytic activity/Vol]10 U/LNormal6-29 [facility] DiagnosticsComment on above:Performed By: #### 7600, 496, 81642, 6517 #### [facility] of [address], [address] [place] [address] Diet Therapist: Marek Subramanian MDAST [Catalytic activity/Vol]13 U/KZfkynr10-97 [facility] DiagnosticsComment on above:Performed By: #### 7600, 496, 71771, 6517 #### [facility] [address], [address] [place] [address] Diet Therapist: Marek Subramanian MDBilirubin [Mass/Vol]0.8 mg/dLNormal0.2-1.2 [facility] DiagnosticsComment on above:Performed By: #### 7600, 496, 19664, 6517 #### [facility] of [place] [address] Diet Therapist: Marek Subramanian MDBUN/CREATININE RATIONOT APPLICABLENormal6-22 [facility] DiagnosticsComment on above:Performed By: #### 7600, 496, 61905, 6517 #### [facility] of [place] [address] Diet Therapist: Marek Subramanian MDCalcium [Mass/Vol]9.9 mg/dLNormal8.6-10.4Quest DiagnosticsComment on above:Performed By: #### 7600, 496, 23421, 6517 #### [facility] of [address], [address] [place] [address] Diet Therapist: Marek Subramanian MDChloride [Moles/Vol]109 mmol/VSxbqxu15-167 [facility] DiagnosticsComment on above:Performed By: #### 7600, 496, 23343, 6517 #### [facility] [address], [address] [place] [address] Diet Therapist: Marek Subramanian MDCO2 [Moles/Vol]24 mmol/BTxalxb84-55Lvolt DiagnosticsComment on above:Performed By: #### 7600, 496, 78575, 6517 #### [facility] [address], [address] [place] [address] Diet Therapist: Marek LINARESreatinine [Mass/Vol]0.88 mg/dLNormal0.60-1.00 [facility] DiagnosticsComment on above:Performed By: #### 7600, 496, 53155, 6517 #### [facility] [address], [address] [place] [address] Diet Therapist: Marek Subramanian MDGFR/1.73 sq M.predicted among non-blacks MDRD (S/P/Bld) [Vol rate/Area]70 mL/min/{1.73_m2}Normal> OR = 60[facility] Comment on above:Result Comment: The eGFR is based on the CKD-EPI 2020 equation. To calculate the new eGFR from a previous Creatinine or Cystatin C result, go to https://www.kidney.org/professionals/ kdoqi/gfr%5FcalculatorPerformed By: #### 7600, 496, 67043, 6517 #### [facility] [place] [address] Diet Therapist: Marek Subramanian MDGlobulin (S) [Mass/Vol]2.7 g/dLNormal1.9-3.7 [facility] DiagnosticsComment on above:Performed By: #### 7600, 496, 79419, 6517 #### [facility] [address], [address] [place] [address] Diet Therapist: Marek Subramanian MDGlucose [Mass/Vol]91 mg/tCQrryis67-49Cgszd DiagnosticsComment on above:Result Comment: Fasting reference intervalPerformed By: #### 7600, 496, 95051, 6517 #### [facility] [place] [address] Diet Therapist: Marek Subramanian MDPotassium [Moles/Vol]4.0 mmol/LNormal3.5-5.3 [facility] DiagnosticsComment on above:Performed By: #### 7600, 496, 45942, 6517 #### [facility] [place] [address] Diet Therapist: Marek Subramanian MDProtein [Mass/Vol]6.6 g/dLNormal6.1-8.1Quest DiagnosticsComment on above:Performed By: #### 7600, 496, 36892, 6517 #### [facility] [place] [address] Diet Therapist: Marek Subramanian MDSodium [Moles/Vol]143 mmol/EGgdlse186-483Bfaeg DiagnosticsComment on above:Performed By: #### 7600, 496, 98529, 6517 #### [facility] [place] [address] Diet Therapist: Marek Subramanian MDUrea nitrogen [Mass/Vol]15 mg/dLNormal7-25 [facility] DiagnosticsComment on above:Performed By: #### 7600, 496, 53890, 6517 #### [facility] of [place] [address] Diet Therapist: Marek Subramanian MDHEMOGLOBIN A1con 64-21-3450BVWQEGCWOG A1c5.3 % of total HgbNormal<5.7Quest DiagnosticsComment on above:Result Comment: For the purpose of screening for [...] patient populations. Standards of Medical Care in Diabetes(ADA).Performed By: #### 7600, 496, 07821, 6517 #### [facility] [address], [address] [place] [address] Diet Therapist: Marek Subramanian MDLIPID PANEL, STANDARD 60-82-8512Dtettyryusy [Mass/Vol]171 mg/dLNormal<200Quest DiagnosticsComment on above:Order Comment: FASTING:YES FASTING: YESPerformed By: #### 7600, 496, 38663, 6517 #### [facility] [address], [address] [place] [address] Diet Therapist: Marek Subramanian MDCholesterol in HDL [Mass/Vol]60 mg/dLNormal> OR = 50Quest DiagnosticsComment on above:Order Comment: FASTING:YES FASTING: YESPerformed By: #### 7600, 496, 45997, 6517 #### [facility] [address], [address] [place] [address] Diet Therapist: Marek Subramanian MDCholesterol in LDL [Mass/Vol]92 mg/dLNormal [facility] DiagnosticsComment on above:Order Comment: FASTING:YES FASTING: YESResult Comment: Reference range: <100 Desirable range <100 mg/dL for primary prevention; <70 mg/dL for patients with CHD or diabetic patients with > or = 2 CHD risk factors. LDL-C is now calculated using the Chloe calculation, which is a validated novel method providing better accuracy than the Friedewald equation in the estimation of LDL-C. Nikita RUSSELL et al. LEWIS. 2013;310(19): 6763-5075 (http://education.[employer]/faq/FIK916)Performed By: #### 7600, 496, 01973, 6517 #### [facility] [address], [address] [place] [address] Diet Therapist: Marek LINARESholesterol.total/Cholesterol in HDL [Mass ratio]2.9 {ratio}Normal<5.0Quest DiagnosticsComment on above:Order Comment: FASTING:YES FASTING: YESPerformed By: #### 7600, 496, 28745, 6517 #### [facility] [address], [address] [place] [address] Diet Therapist: Marek VALADEZ HDL BQXLWCNWGJJ766 mg/dL (calc)Normal<130 Quest DiagnosticsComment on above:Order Comment: FASTING:YES FASTING: YESResult Comment: For patients with diabetes plus 1 major ASCVD risk factor, treating to a non-HDL-C goal of <100 mg/dL (LDL-C of <70 mg/dL) is considered a therapeutic option.Performed By: #### 7600, 496, 45594, 6517 #### [facility] [address], [address] [place] [address] Diet Therapist: Marek Subramanian MDTriglyceride [Mass/Vol]95 mg/dLNormal<150Quest DiagnosticsComment on above:Order Comment: FASTING:YES FASTING: YESPerformed By: #### 7600, 496, 36616, 6517 #### [facility] [address], [address] [place] [address] Diet Therapist: Marek Subramanian MDVC INJ FOAM SCLERO W US MLTIon 16-71-6203EK INJ FOAM SCLERO W US MLTIPatient: MIKY FUENTES Exam Date: 06/26/2022 : 1950 Gender:F Ordering : DR WILLARD SHARMA M.D. Admission #: [id number] Family : Order #: [id number] CLICK HERE TO VIEW EXAM RADIOLOGY REPORT [...] vein medial distal lower leg/ankle. A large rcis vein was occluded with manual pressure until [...] the treated superficial varices, (more content not included)...[facility] CON[facility] FOLLOWUPon 67-39-4827OI CONSULT FOLLOWUPPatient: MIKY FUENTES Exam Date: 06/19/2022 : 1950 Gender:F Ordering : DR WILLARD SHARMA M.D. Admission #: [id number] Family : Order #: [id number] CLICK HERE TO VIEW EXAM RADIOLOGY REPORT [...] by: Kyle Cheney M.D. on 06/19/2022 at 12:14[facility] EXT VENOUS RT LIMITEDon 56-01-0570CO EXT VENOUS RT LIMITEDPatient: MIKY FUENTES Exam Date: 06/19/2022 : 1950 Gender:F Ordering : DR WILLARD SHARMA M.D. Admission #: [id number] Family : Order #: [id number] CLICK HERE TO VIEW EXAM RADIOLOGY REPORT [...] by: Kyle Cheney M.D. on 06/19/2022 at 12:11[facility] CenterVC INJ FOAM SCLERO W US MLTIon 59-25-8297WA INJ FOAM SCLERO W US MLTI Patient: MIKY FUENTES Exam Date: 06/13/2022 : 1950 Gender:F Ordering : DR WILLARD SHARMA M.D. Admission #: [id number] Family : Order #: [id number] CLICK HERE TO VIEW EXAM CORRECTION made [...] by: Kyle Cheney M.D. on 06/19/2022 at 12:17[facility] CenterVC CONSULT FOLLOWUPon 86-21-6281UR CONSULT FOLLOWUPPatient: MIKY FUENTES Exam Date: 05/31/2022 : 1950 Gender:F Ordering : DR WILLARD SHARMA M.D. Admission #: [id number] Family : Order #: [id number] CLICK HERE TO VIEW EXAM RADIOLOGY REPORT [...] by: Kyle Cheney M.D. on 05/31/2022 at 12:18[facility] CenterVC EXT VENOUS LT LIMITEDon 74-94-2956LX EXT VENOUS LT LIMITEDPatient: MIKY FUENTES Exam Date: 05/31/2022 : 1950 Gender:F Ordering : DR WILLARD SHARMA M.D. Admission #: [id number] Family : Order #: [id number] CLICK HERE TO VIEW EXAM RADIOLOGY REPORT [...] by: Kyle Cheney M.D. on 05/31/2022 at 12:13[facility] CenterCT ABD/PELVIS WO CONon 57-93-7760CU ABD/PELVIS WO CONEXAMINATION: CT ABD/PELVIS WO CON, 05/26/2022 10:02 AM [...] hernia. Nondilated. No findings of acute appendicitis. Peritoneum/retroperitoneum: No free fluid or gas. Vasculature: Atherosclerosis [...] Electronically authenticated by: SANTHOSH NICK Date: 2022-05-26 16:[address] [place], [place] [address]VC ENDOVENOUS ABL 1ST V LTon 21-30-6019DM ENDOVENOUS ABL 1ST V LTPatient: MIKY FUENTES Exam Date: 05/23/2022 : 1950 Gender:F Ordering : DR WILLARD SHARMA M.D. Admission #: [id number] Family : Order #: [id number] CLICK HERE TO VIEW EXAM RADIOLOGY REPORT [...] the left small saphenous vein. Dictated by: Kyel Cheney M.D. on 05/23/2022 at 12:31 Approved by: Kyle Cheney M.D. on 05/23/2022 at 12:34[facility] CenterUS KIDNEYSon 94-45-9754HB KIDNEYSEXAMINATION: US KIDNEYS HISTORY: Abdulkadir hematuria COMPARISON: No [...] Electronically authenticated by: WILLARD SHARMA Date: 2022-05-05 13:29[facility] CenterXR KUB 1 VIEWon 06-68-5992TJ KUB 1 VIEWEXAMINATION: XR KUB 1 VIEW HISTORY: Abdulkadir hematuria [...] Electronically authenticated by: KYLE CHENEY Date: 2022-05-05 15:54[facility] CenterMG MAMM SCREEN 3D TANMAY CADon 85-96-8251KQ MAMM SCREEN 3D TANMAY CAD Patient: MIKY FUENTES Exam Date: 05/04/2022 : 1950 Gender:F Ordering : DR CONNOR ANAYA Admission #: [id number] Family : Order #: [id number] CLICK HERE TO VIEW EXAM RADIOLOGY REPORT [...] colon cancer at age 60. LOCATION: [facility] BREAST COMPOSITION: Scattered areas fibroglandular density. FINDINGS: [...] by: Kyle Cheney M.D. on 05/05/2022 at 14:21[facility] CenterVC CONSULT FOLLOWUPon 92-62-0530EZ CONSULT FOLLOWUPPatient: MIKY FUENTES Exam Date: 05/04/2022 : 1950 Gender:F Ordering : DR WILLARD SHARMA M.D. Admission #: [id number] Family : Order #: [id number] CLICK HERE TO VIEW EXAM RADIOLOGY REPORT [...] by: Kyle Cheney M.D. on 05/04/2022 at 11:43[facility] CenterVC EXT VENOUS RT LIMITEDon 75-50-7636OD EXT VENOUS RT LIMITEDPatient: MIKY FUENTES Exam Date: 05/04/2022 : 1950 Gender:F Ordering : DR WILLARD SHARMA M.D. Admission #: [id number] Family : Order #: [id number] CLICK HERE TO VIEW EXAM RADIOLOGY REPORT [...] by: Kyle Cheney M.D. on 05/04/2022 at 11:17[facility] CenterCULTURE URINEon 72-77-1959OTPBUVS URINECulture Observations: LIGHT GROWTH OF MIXED GENITAL LUDWIN. NO POTENTIAL PATHOGENS SEEN.NormalChildren'S Hospital For RehabilitationComment on above:Performed By: #### URCX ####[facility] [address] [address]Dr. Alysha Preciado RANDOMon 76-64-7792Jjbuesfiq Ql (U)NegativeNormalNEGATIVEChildren'S Hospital For RehabilitationComment on above:Performed By: #### UA #### [facility] [address] [address] [address] Alysha MachucaClhayde (U)TURBIDAbnormalCLEARThAkron Children's HospitalComment on above:Performed By: #### UA #### [facility] [address] [address] [address] Alysha [place] ()REDAbnormalYELLOWChildren'S Hospital For RehabilitationComment on above: Result Comment: Previously reported as: YELLOW On 05/03/2022 17:30 By CV2 Performed By: #### UA #### [facility] [address] [address] [address] Alysha MachucaGlucose Ql (U)NegativeNormalNEGATIVEChildren'S Hospital For RehabilitationComment on above:Performed By: #### UA #### [facility] [address] [address] [address] Alysha MachucaHemoglobin Ql (U)LARGEAbnormalNEGKindred Healthcare Comment on above:Performed By: #### UA #### [facility] [address] [address] [address] Alysha MachucaKetones Ql (U)NegativeNormalNEGATIVEChildren'S Hospital For RehabilitationComment on above:Performed By: #### UA #### [facility] [address] [place] [address] Dr. Alysha MachucaLEUKOCYTESNegativeNormalNEGATIVEThe Uk HealthcareComment on above:Performed By: #### UA #### [facility] [address] [address] [address] Alysha MachucaNitrite Ql (U)NegativeNormalNEGATIVEThe Uk HealthcareComment on above:Performed By: #### UA #### [facility] [address] [place] [address] Dr. Alysha MachucapH (U)6.0 [pH]Normal5-9The [facility] HealthcareComment on above: Performed By: #### UA #### [facility] [address] [place] [address] Dr. Alysha MachucaSPEC GRAVITY1.789Bgpmxn7.005-<=1.025The [facility] HealthcareComment on above:Performed By: #### UA #### [facility] [address] [place] [address] Dr. Alysha Preciado HYEBWZT879 mg/dlAbnormalNEGATIVE/ TRACEThe [facility] Comment on above:Performed By: #### UA #### [facility] [address] [place] [address] Dr. Alysha MachucaUrobilinogen Qn (U)0.2 {Luis'U}/dLNormal0.2 - 1.0The [facility] HealthcareComment on above:Performed By: #### UA #### [facility] [address] [place] [address] Dr. Alysha MachucaVC ENDOVENOUS ABL 1ST V RTon 54-21-2418CM ENDOVENOUS ABL 1ST V RT Patient: MIKY FUENTES Exam Date: 04/26/2022 : 1950 Gender:F Ordering : DR WILLARD SHARMA M.D. Admission #: [id number] Family : Order #: [id number] CLICK HERE TO VIEW EXAM RADIOLOGY REPORT [...] by: Willard Sharma MD on 04/26/2022 at 10:58[facility] CenterVC CONSULT FOLLOWUPon 80-59-7055AJ CONSULT FOLLOWUPPatient: MIKY FUENTES Exam Date: 04/13/2022 : 1950 Gender:F Ordering : DR WILLARD SHARMA M.D. Admission #: [id number] Family : Order #: [id number] CLICK HERE TO VIEW EXAM RADIOLOGY REPORT [...] by: Kyle Cheney M.D. on 04/13/2022 at 10:59[facility] CenterVC EXT VENOUS LT LIMITEDon 36-56-2682DD EXT VENOUS LT LIMITEDPatient: MIKY FUENTES Exam Date: 04/13/2022 : 1950 Gender:F Ordering : DR WILLARD SHARMA M.D. Admission #: [id number] Family : Order #: [id number] CLICK HERE TO VIEW EXAM RADIOLOGY REPORT [...] by: Kyle Cheney M.D. on 04/13/2022 at 10:56[facility] CenterOffice Visit (Cardiology)on 22-66-0076Swuqlm-up visitDiagnoses/Problems Assessed Non-ischemic cardiomyopathy (425.4) (I42.8) Hyperlipidemia (272.4) [...] a smoker Tobacco Use Screening; Status:Complete; Done: 22Byh3998 Patient Instructions By signing my name below, I, Lucia SiegelDavid lugo LPN, attest that this documentation has been prepared under the direction and in the presence of Dr. Nick Richardson MD. All medical record entries made by the Scribe were at my direction and personally dictated by me. Ihave reviewed the chart and agree that the [...] failure. With guideline directed therapy in the hinduism of maintenance of sinus rhythm her symptoms have resolved and most recent echocardiogram demonstrates improvement in ejection fraction. Because of this we suggestcontinued therapy as is. She is protected against [...] Oral TabletTake 1 tablet twice a day [place] 3 CAPSTAKE DIRECTED. Tylenol Arthritis Ext Relief [...] Signs Recorded: 22Mar2022 02:06PM Heart Rate47, Apical Vlsxwhrv145, RUE, Sitting Fwgcqafil00, RUE, Sitting Height5 ft 5 in Zqsmoq671 lb 6.4 oz BMI Djplbrwfpt12.17 kg/m2 BSA Calculated2.19 Tobacco Useb) No PHQ-2 #1. Over the last 2 weeks have you felt down, depressed or hopeless? (If yes, answer PHQ-9 below)No PHQ-2 #2. Over the last 2 weeks have you felt little interest or pleasure in doing things? (If yes,answer PHQ-9 below)No Fall Screeninga) No falls within [...] and S2, no murmurs (more content not included)...NormalUH TouchworksTobacco Screening.on 49-46-1076Krgxa depression screening assessmentNoMultiCare Valley Hospital MycooN 250 DO Work Phone: Fall risk assessmenta) No falls within the last year [facility] [employer] 250 DO Work Phone: Tobacco use status CPHSb) NoMP-[facility] 250 DO Work Phone: vc ENDOVENOUS ABL PERFORATING LTon 57-33-9472AD ENDOVENOUS ABL PERFORATING LTPatient: MIKY FUENTES Exam Date: 03/22/2022 : 1950 Gender:F Ordering : DR WILLARD SHARMA M.D. Admission #: [id number] Family : Order #: [id number] CLICK HERE TO VIEW EXAM RADIOLOGY REPORT PROCEDURE: VEIN CENTER ENDOVENOUS ABLATION VEIN LEFT LEG COMPARISON: None. INDICATIONS: Pain co-occurrent and due to varicose veins of bilateral legs I83.813 OPERATIVE REPORT: Diagnosis: Superficial venous reflux, incompetent perforating veins Procedure: Endovenous laser ablation of the left rcis(s) Procedure: The patient was positioned supine on [...] by: Willard Sharma MD (more content not included)...NormalThe [facility] SCREEN, IFA, W/REFL TITER/PATTERN (REFL)on 67-24-6964YWC SCREEN, IFA PositiveAbnormalNEGATIVEQuest DiagnosticsComment on above:Result Comment: KAL IFA is a first line screen for detecting the presence of up to approximately 150 autoantibodies in various autoimmune diseases. A positive KAL IFA result is suggestive of autoimmune disease and reflexes to titer and pattern. Further laboratory testing may be considered if clinically indicated. For additional information, please refer to http://education.[employer]faq/IAO443 (This link is being provided for informational/ educational purposes only.)Performed By: #### 809, 8268, 4420, 04756, %88313 #### [facility] [address], [address] [place], [place] [address] Diet Therapist: Marek Subramanian MDANTINUCLEAR ANTIBODIES TITER AND PATTERNon 05-48-5878QKI PATTERNNuclear, CentromereAbnormalQuest DiagnosticsComment on above:Result Comment: Centromere pattern is associated with limited cutaneous systemic sclerosis, CREST (Calcinosis, Raynaud's, Esophageal dysmotility, Sclerodactyly, Telangiectasia), primary biliary cholangitis (PBC), and other autoimmune diseases. AC-3: Centromere International Consensus on KAL Patterns (https://doi.org/10.1515/ehar-0345-1539)Performed By: #### 809, 8268, 4420, 86749, %09544 #### [facility] [address], [address] [place] [address] Diet Therapist: Marek MARCELO PATTERNNuclear, HomogeneousAbnormalQuest DiagnosticsComment on above:Result Comment: Homogeneous pattern is associated with systemic lupus erythematosus (SLE), drug-induced lupus and juvenile idiopathic arthritis. AC-1: Homogeneous International Consensus on KAL Patterns (https://doi.org/10.1515/eqpe-8400-7408)Performed By: #### 809, 8268, 4420, 13959, %26642 #### [facility] [place] [address] Diet Therapist: Marek Subramanian MDANA TITER> OR = 1:1280AbnormalQuest DiagnosticsComment on above:Result Comment: Reference Range <1:40 Negative 1:40-1:80 Low Antibody Level >1:80 Elevated Antibody LevelPerformed By: #### 809, 8268, 4420, 54929, %36198 #### [facility] [place] [address] Diet Therapist: Marek Subramanian MDANA TITER1:80HighQuest DiagnosticsComment on above:Result Comment: A low level KAL titer may be present in pre-clinical autoimmune diseases and normal individuals. Reference Range <1:40 Negative 1:40-1:80 Low Antibody Level >1:80 Elevated Antibody LevelPerformed By: #### 809, 8268, 4420, 30649, %88560 #### [facility] [place] [address] Diet Therapist: Marek Subramanian MDC-REACTIVE PROTEINon 92-09-8639OHC [Mass/Vol] 13.4 mg/LHigh<8.0Quest DiagnosticsComment on above:Performed By: #### 809, 8268, 4420, 77127, %20799 #### [facility] [place] [address] Diet Therapist: Marek Subramanian MDRHEUMATOID ARTHRITIS DIAGNOSTIC PANEL 1on 67-87-6548JLHCZG CITRULLINATED PEPTIDE (CCP) AB (IGG)<16NormalQuest Diagnostics Comment on above:Result Comment: Reference Range Negative: <20 Weak Positive: 20-39 Moderate Positive: 40-59 Strong Positive: >59Performed By: #### 809, 8268, 4420, 33160, %70433 #### [facility] [address] [place] [address] [place] [address] Diet Therapist: Marek Subramanian MDINTERPRETATIONNormalQuest DiagnosticsComment on above:Result Comment: These serologic results may be found in 10-20% of patients with polyarthritis that is clinically and radiologically indistinguishable from RA.Performed By: #### 809, 8268, 4420, 54572, %11010 #### [facility] of [address], [address] [place] [address] Diet Therapist: Marek Subramanian MDRHEUMATOID FACTOR<14Normal<14[facility] Comment on above:Performed By: #### 809, 8268, 4420, 11563, %04014 #### [facility] of [address], [address] [place] [address] Diet Therapist: Marek Subramanian MDSED RATE BY MODIFIED WESTERGRENon 10-01-2021 SED RATE BY MODIFIED UDIMUKQFVR60 mm/hHigh< OR = 30Quest DiagnosticsComment on above:Performed By: #### 809, 8268, 4420, 95722, %84101 #### [facility] of [address], [address] [place] [address] Diet Therapist: Marek Subramanian MDTobacco Screening.on 85-29-5581Ohhz risk assessmenta) No falls within the last yearMultiCare Valley Hospital [employer] 600 DO Work Phone: Tobacco use status CPHSb) NoMVirginia Mason Hospital Job[employer] 600 DO Work Phone: Vital Signs Date TimeVital SignValuePerforming IxiwnwppvYkjpntpf80-91-7633 13:53-0400Body kuptup937.56 cmDennis Orlebar Brown DO Work Phone: [facility]10-06-2025 13:53-0400 Body mass index (BMI) [Ratio]32.8 kg/f9Lfyeql Orlebar Brown DO Work Phone: [facility]10-06-2025 13:53-0400 Body acujoq51.63 kgDeneugenio Furlong DO Work Phone: [facility]10-06-2025 13:53-0400 Diastolic blood kmuxarlh34 mm[Hg]Connor Furlong DO Work Phone: [facility]10-06-2025 13:53-0400 Heart rate87 /minDtheresais Furlong DO Work Phone: [facility]10-06-2025 13:53-0400 SaO2% (BldA) [Mass fraction]93 %Connor Lewislong DO Work Phone: [facility]10-06-2025 13:53-0400 Systolic blood twynmeng619 mm[Hg]Connor Lewislong DO Work Phone: [facility]09-11-2025 10:02-0400 Body wpzbuh012 cmConnor Furlong DO Work Phone: [facility]09-11-2025 10:02-0400Body mass index (BMI) [Ratio]33.35 kg/a8Tvrrkr Furlong DO Work Phone: [facility] [employer] Myfsus94-33-6539 10:02-0400Body enkmydlbayn14.5 [degF]Connor Lewislong DO Work Phone: [facility] [employer] Kpjfnv61-50-4900 10:02-0400Body gylcby48.37 kgDeneugenio Furlong DO Work Phone: [facility] [employer] Zlnbzv99-76-7231 10:02-0400Diastolic blood mm[Hg]Connor Furlong DO Work Phone: [facility]09-11-2025 10:02-0400Heart rate 69 /minDtheresais Furlong DO Work Phone: [facility]09-11-2025 10:02-0400 Respiratory rate18 /minDtheresais Furlong DO Work Phone: [facility] [employer] Xnzxdx83-06-5369 10:02-7103ZnU2% (BldA) [Mass fraction]99 %Connor Lewislong DO Work Phone: [facility]09-11-2025 10:02-0400Systolic blood myypzoqt674 mm[Hg]Connor Lewislong DO Work Phone: [facility]07-29-2025 10:59-0400Body .2 cmJr. Timmyanic DO Work Phone: [facility] CenterLdagmdjsmn96-68-2003 10:59-0400Body mass index (BMI) [Ratio]32.73 kg/m2Jr. Stepanic DO Work Phone: [facility] CenterQxuhvnqxpu85-59-8769 10:59-0400Body yrzdli07.8 kg Jr. Stepanic DO Work Phone: [facility] CenterZzqluabwyj55-30-0922 11:48-0400Body kibldc942 cm Connor Tavaresng DO Work Phone: [facility] [employer] Dfvrpd14-99-7365 11:48-0400Body mass index (BMI) [Ratio]35.26 kg/i9QujncoConnor Lewislong DO Work Phone: [facility]06-09-2025 11:48-0400Body jikourxsjhd40.6 [degF]Connor Lewislong DO Work Phone: [facility]06-09-2025 11:48-0400Body tulnkn79.27 kgConnor Lewislong DO Work Phone: [facility]06-09-2025 11:48-0400Diastolic blood oikucatk38 mm[Hg]Connor Lewislong DO Work Phone: [facility]06-09-2025 11:48-0400Heart rate 58 /minDennis Debbielong DO Work Phone: [facility]06-09-2025 11:48-0400 Respiratory rate20 /minDtheresais Debbielong DO Work Phone: [facility]06-09-2025 11:48-6351VpR6% (BldA) [Mass fraction]97 %Connor Lewislong DO Work Phone: [facility] Gxpdip50-20-4097 11:48-0400Systolic blood xkvdqjzy851 mm[Hg]Connor Tavaresng DO Work Phone: [facility] Fpfvyq78-17-1911 10:54-0400Body fgkonh013 cmConnor Tavaresng DO Work Phone: [facility]Radio[facility]03-24-2025 10:54-0400Body mass index (BMI) [Ratio]35.4 kg/l7Sbeynmeugenio Tavaresng DO Work Phone: [facility]Radio[facility]03-24-2025 10:54-0400Body ygpxiywjbpg61.2 [degF]Connor Tavaresng DO Work Phone: [facility] Exdcbm84-28-9435 10:54-0400Body bbvaea05.63 kgDeneugenio Tavaresng DO Work Phone: [facility] Atkahp60-19-6004 10:54-0400Diastolic blood fomkpcia33 mm[Hg]Connor Tavaresng DO Work Phone: [facility]03-24-2025 10:54-0400Heart rate 60 /Nahid Lewislong DO Work Phone: [facility] Ytwamc18-93-7420 10:54-0400 Respiratory rate18 /minDtheresais Debbielong DO Work Phone: [facility]Radio[facility]03-24-2025 10:54-5073IiV5% (BldA) [Mass fraction]100 %Connor Tavaresng DO Work Phone: [facility]03-24-2025 10:54-0400Systolic blood lsiclmuc573 mm[Hg]Connor Tavaresng DO Work Phone: [facility]01-28-2025 15:25-0500Body jmtske392 cmDennis Furlong DO Work Phone: [facility]01-28-2025 15:25-0500Body mass index (BMI) [Ratio]37.13 kg/t1Uipvss Furlong DO Work Phone: [facility]01-28-2025 15:25-0500Body bkihgg83.07 kgDennis Furlong DO Work Phone: [facility]01-28-2025 15:25-0500Diastolic blood aobchfvd23 mm[Hg]Connor Furlong DO Work Phone: [facility]01-28-2025 15:25-0500Systolic blood mm[Hg]Connor Furlong DO Work Phone: [facility]01-07-2025 11:24-0500Body nqgfly633.1 cmJr. Stepanic DO Work Phone: [facility] CenterJlfyrxcqaf74-60-6862 11:24-0500Body mass index (BMI) [Ratio]34.81 kg/m2Jr. Stepanic DO Work Phone: [facility] CenterNmppckjwxv48-72-5466 11:24-0500Body .89 kgJr. Stepanic DO Work Phone: [facility] CenterZwofhvoaxj39-18-7271 08:40-0500Body bqgxoi544.6 cmDennis Furlong DO Work Phone: [facility]12-16-2024 08:40-0500Body mass index (BMI) [Ratio]35.46 kg/c2Tvlqvm Furlong DO Work Phone: [facility]12-16-2024 08:40-0500Body visujbdacda05.4 [degF]Connor Furlong DO Work Phone: [facility]12-16-2024 08:40-0500Body szjsex68.71 kgDennis Furlong DO Work Phone: [facility] [employer] Ayahns67-92-2120 08:40-0500Diastolic blood itxhedil99 mm[Hg]Connor Furlong DO Work Phone: [facility] [employer] Copasc76-20-4772 08:40-0500Heart rate 60 /minDennis Furlong DO Work Phone: [facility] [employer] Acbnhm49-34-6085 08:40-0500 Respiratory rate18 /minDennis Furlong DO Work Phone: [facility] [employer] Gkcmnq99-32-0079 08:40-0500Systolic blood xyixdogk623 mm[Hg]Connor Furlong DO Work Phone: [facility]10-31-2024 10:39-0400Body zeyrqr439.1 cmCarmen Lopez MD Work Phone: [facility]10-31-2024 10:39-0400 Body mass index (BMI) [Ratio]35.28 kg/j7BpbeugCarmen Lopez MD Work Phone: [phone])347-[address] [place], [place] 29[address]10-31-2024 10:39-0400 Body bdpqab24.16 kgCarmen Lopez MD Work Phone: [address] [place], [place] [address]2010-31-2024 10:39-0400 Diastolic blood riuechwz79 mm[Hg]Carmen Lopez MD Work Phone: [phone])690-[address] [place], [place] 2970610-31-2024 10:39-0400 Heart rate56 /minCarmen Lopez MD Work Phone: [phone] [place], [place] [address]10-31-2024 10:39-0400 Systolic blood qwkbjocy692 mm[Hg]Carmen Lopez MD Work Phone: [facility]10-21-2024 10:47-0400 Body nveqvo273.6 cmDennis Furlong DO Work Phone: [facility]Radio[facility]10-21-2024 10:47-0400Body mass index (BMI) [Ratio]36.22 kg/i6TjpqqtConnor Lewislong DO Work Phone: [facility] HospitalIrid[facility] Display Corporation10-21-2024 10:47-0400Body gmjfdneakzd17.39 [degF]Connor Tavaresng DO Work Phone: [facility]10-21-2024 10:47-0400Body hsisnd81.71 kgConnor Lewislong DO Work Phone: [facility]10-21-2024 10:47-0400Diastolic blood tvmiuboy00 mm[Hg]Connor Tavaresng DO Work Phone: [facility] GigaCreteKppwlh76-66-7838 10:47-0400Heart rate 64 /minDennis Chaitanyang DO Work Phone: [facility] GigaCreteUxcetb64-23-1948 10:47-0400Systolic blood aacedaqm342 mm[Hg]Connor Anaya DO Work Phone: [facility] [employer] Ofzuug37-79-6553 14:59-0400Blood Pressure LocationAurora Orzech [facility]09-17-2024 14:59-0400Diastolic blood lhhmmaot10 mm[Hg]Radha Orzech [facility]09-17-2024 14:59-0400Heart rate65 /minAurora Orzech [facility]09-17-2024 14:59-0400Systolic blood itxamrgm591 mm[Hg]Radha Orzech [facility]05-09-2024 09:31-0400Body nqdaci783.1 cmNick Richardson MD Work Phone: [facility]05-09-2024 09:31-0400 Body mass index (BMI) [Ratio]36.78 kg/v5PnzfbhaNick Richardson MD Work Phone: [facility]05-09-2024 09:31-0400 Body crkejt952.25 kgNick Richardson MD Work Phone: [facility]05-09-2024 09:31-0400 Diastolic blood dijikffa58 mm[Hg]Nick Richardson MD Work Phone: [facility]05-09-2024 09:31-0400 Heart rate44 /minNick Richardson MD Work Phone: [facility]05-09-2024 09:31-0400 Systolic blood nsuskryw359 mm[Hg]Nick Richardson MD Work Phone: [facility]04-22-2024 10:11-0400 Body .6 cmDeneugenio Lewislong DO Work Phone: [facility] Vmeype05-16-9341 10:11-0400Body mass index (BMI) [Ratio]37.25 kg/m5Qjreqg Furlong DO Work Phone: [facility] Kbcqxp48-08-6919 10:11-0400Body bhfqquhjkuy05.81 [degF]Connor Lewislong DO Work Phone: [facility] Xeantk56-17-9232 10:11-0400Body mgsenh21.43 kgDeneugenio Lewislong DO Work Phone: [facility] Uxxvvy55-78-5758 10:11-0400Diastolic blood lndpjuzz58 mm[Hg]Connor Lewislong DO Work Phone: [facility] Xzlshz21-30-3857 10:11-0400Heart rate 55 /minDennis Debbielong DO Work Phone: [facility]04-22-2024 10:11-0400 Respiratory rate20 /minDennis Furlong DO Work Phone: [facility]04-22-2024 10:115459QjY9% (BldA) [Mass fraction]98 %Connor Lewislong DO Work Phone: [facility]04-22-2024 10:110400Systolic blood nezlmicb370 mm[Hg]Connor Lewislong DO Work Phone: [facility]02-08-2023 13:27-0500Body jfmrqa540.1 cmDeneugenio Lewislong Work Phone: [id number]-Mthqe [employer] 250 DO Work Phone: 1(741) 214-527802-08-2023 13:27-0500Body mass index (BMI) [Ratio] 36.94 kg/j6Hsklsneugenio Lewislong Work Phone: mp147-0733GI-Uhyvb [employer] 250 DO Work Phone: 1([phone]-9080 13:27-0500Body surface area Derived from formula2.07 t1Ozcbdleugenio Lewislong Work Phone: mp524-1951FO-Omgxm [place] [employer] 250 DO Work Phone: [phone] 13:27-0500Body aeyvcw088.7 kgDeneugenio Lewislong Work Phone: [phone]-Lwmds [place] [employer] 250 DO Work Phone: 1(891) 349-809802-08-2023 13:27-0500Diastolic blood mm[Hg] Connor Lewislong Work Phone: [phone]-Dtfor [place] [employer] 250 DO Work Phone: 1(386) 193-203802-08-2023 13:27-0500Heart rate43 /minDennis G Furlong Work Phone: [phone]-Hujgy [place] [facility] 250 DO Work Phone: 1(388) [phone] 13:27-0500Systolic blood fanecowy169 mm[Hg] Connor Ruiz Furlong Work Phone: [phone]-Tqoyx [place] [facility] 250 DO Work Phone: 1(566) [phone] 11:43-0400Blood Pressure LocationPatrick Copan Systems [facility]09-02-2022 11:43-0400Diastolic blood ahdkayou14 mm[Hg]Yehuda HASSAN [facility]09-02-2022 11:43-0400Heart rate60 /minPatrick [employer] [facility]09-02-2022 11:43-0400Respiratory rate16 /minPatrick [employer] [facility]09-02-2022 11:43-0400Systolic blood tiskkzpu397 mm[Hg]Yehuda HASSAN [facility]05-25-2022 14:06-0400Body hdoubt506.1 cmDeneugenio Ruiz Furlong Work Phone: [phone]-Pecxm [place] [facility] 250 DO Work Phone: 1(674) [phone] 14:06-0400Body mass index (BMI) [Ratio] 42.17 kg/n7Hqehrs G Furlong Work Phone: [phone]-Gmtvm [place] [facility] 250 DO Work Phone: 1(273) [phone] 14:06-0400Body surface area Derived from formula2.19 g8Wkozaz G Furlong Work Phone: [phone]-Rdldp [place] [facility] 250 DO Work Phone: 1(820) [phone] 14:06-0400Body muusoi965.94 kgDennis G Furlong Work Phone: [phone]) [phone]-EeimqC[facility] 250 DO Work Phone: 1(665) [phone] 14:06-0400Diastolic blood mm[Hg] Connor G Furlong Work Phone: 1(511) [phone]-ZzxctCuyuna [facility] 250 DO Work Phone: 1(101) [phone] 14:06-0400Heart rate47 /minDennis G Furlong Work Phone: 1(209) [phone]-QbkiyCuyuna Regional Medical Center 250 DO Work Phone: 1(607) 264-587205-25-2022 14:06-0400Systolic blood vrguntil753 mm[Hg] Connor G Furlong Work Phone: 1(767) [phone]-MnglgCuyuna Regional Medical Center 250 DO Work Phone: 1(931) [phone] 14:38-0400Body mlxwot036.1 cmDennis G Furlong Work Phone: 1(442) [phone]-LkzkgAlomere Health Hospitalwalk 600 DO Work Phone: 1(325) [phone] 14:38-0400Body mass index (BMI) [Ratio] 42.53 kg/p4Vmmpkn G Furlong Work Phone: 1(451) [phone]-MgfrvAlomere Health Hospitalwalk 600 DO Work Phone: 1(825) 500-211010-19-2021 14:38-0400Body surface area Derived from formula2.2 n4Ddnyrr G Furlong Work Phone: 1(110) [phone]-ZutifAlomere Health Hospitalwalk 600 DO Work Phone: 1(884) 192-509710-19-2021 14:38-0400Body hpyqpq515.94 kgDennis G Furlong Work Phone: 1(779) [phone]-AldfeAlomere Health Hospitalwalk 600 DO Work Phone: 1(113) 547-520810-19-2021 14:38-0400Diastolic blood xuqywfod27 mm[Hg] Connor G Furlong Work Phone: [phone]-Gaxil [place] [facility] 600 DO Work Phone: 1(450) 505-868210-19-2021 14:38-0400Heart rate44 /minDmimi Ruiz Furlong Work Phone: [phone]-Sttia [place] [facility] 600 DO Work Phone: 1(960) [phone] 14:38-0400Systolic blood tnujplnf722 mm[Hg] Connor Ruiz Furlong Work Phone: [phone]-Ufczx [place] [facility] 600 DO Work Phone: Encounters Encounter DateEncounter TypeCare ProviderFacilityStart: 09-04-2025 End: 20-85-0291knwqjfoeemLWPBILancaster Municipal Hospitaltart: 08-25-2025 End: 46-27-2809biwzthkzhxIgdjxl TannaFacility:FTMCStart: 08-25-2025 End: 60-37-3840vxwjhsehotBtgghu TannaFacility:EU BellevueStart: 08-25-2025 End: 82-02-4832Ffyiuoy encounter procedureCassie Norris [facility] [place] start: 08-20-2025 End: 00-89-3138YludlmTmymrl G Furlong DO Work Phone: [facility] Family MedicineStart: 08-11-2025 End: 40-70-8153mlqgabtnofNukzzt Furlong DO Work Phone: [facility] Work Phone: Start: 08-11-2025 End: 27-99-3344Bcpgclc encounter procedureMiguel Ángel Mcmullen [facility] Neurology Work Phone: Start: 08-10-2025 End: 53-79-2083yytookvxfhCbedih Furlong DO Work Phone: [facility] Work Phone: Start: 08-10-2025 End: 31-78-4098Zwlpkwn encounter procedureMiguel Ángel Mcmullen [facility] Neurology Work Phone: Start: 08-03-2025 End: 70-09-0867xlhqivhixcSafadu Furlong DO Work Phone: [facility] Work Phone: Start: 08-03-2025 End: 22-31-9754Viqdyig encounter procedureIsa Rogers -[facility] Neurology Work Phone: Start: 07-09-2025 End: 34-57-8448Slqold outpatient visit 25 minutesRayeugenio [facility] DO Work Phone: [facility] - Family MedicineComment on above:Primary hypertension (Primary Dx); Acquired hypothyroidism; Hyperlipidemia, unspecified hyperlipidemia type; Class 1 obesity due to excess calories with serious comorbidity and body mass index (BMI) of 33.0 to 33.9 in adult; History of diabetes mellitus, type IIStart: 07-09-2025 End: 45-91-5790cqggelhcwcXEENBNCommunity Medical Center Ambulatory PPGStart: 05-26-2025 End: 88-37-0943Vorayc flowsheetJr. Lesvia Mcclain DO Work Phone: noms [place] [facility]opaedicsStart: 05-26-2025 End: 56-77-5908Owqeqa flowsheetJr. Lesvia Mcclain DO Work Phone: [facility] [place] OrthopaedicsStart: 05-26-2025 End: 45-73-1463Shibja outpatient visit 15 minutesJr. Lesvia Mcclain DO Work Phone: noms [place] OrthopaedicsComment on above:Acute pain of right knee (Primary Dx); Arthritis of right kneeStart: 05-26-2025 End: 03-66-5865agzqzrhcmrEN., LESVIA MCCLAINNot AvailableStart: 04-07-2025 End: 05-82-8959jcerjzifzqVYIHEWXV E PERRYFacility:EU BellevueStart: 04-07-2025 End: 06-26-8405Wtuffcj encounter procedureJELAVERN E INGE [facility] [place] start: 04-06-2025 End: 24-86-3180Corkgy outpatient visit 25 minutesConnor Joseph Anaya DO Work Phone: [facility] - Family MedicineComment on above:Cognitive impairment (Primary Dx); Minimal cognitive impairment; Attention or concentration deficit; Sleep apnea, unspecified typeStart: 04-06-2025 End: 12-83-9463btishyzdrlDBKPWU G [facility] Ambulatory PPGStart: 03-16-2025 End: 70-71-9487pmeegfsgarPRENKM G FURCLEMMarymount Hospitaltart: 02-19-2025 End: 43-09-1507Nvioqr OnlyConnor Joseph Lewismileclem DO Work Phone: [facility] - Family MedicineComment on above:Memory loss (Primary Dx); Cognitive impairmentStart: 02-03-2025 End: 65-69-8467cwyjtekfzzGXXQ [facility] Hospitaltart: 01-28-2025 End: 26-27-3385GapfreJpqoio Joseph Tavaresng DO Work Phone: [facility] - Family MedicineStart: 01-22-2025 End: 80-82-0681mvrsnvoeldMPCZGLancaster Municipal Hospitaltart: 01-19-2025 End: 09-83-4945uspnisysiePSXKPI G FURNGUC Healthtart: 01-19-2025 End: 61-55-0717komexoreezRMYONQ G [facility] Ambulatory PPGStart: 01-19-2025 End: 29-93-2097Dtkwd & care planning pt w/cognitive impairmentConnor Joseph Lewislong DO Work Phone: [facility] Internal Medicine - Family MedicineComment on above:Cognitive impairment (Primary Dx); Memory loss; Anemia, unspecified type; Acquired hypothyroidism; Gross hematuria; Attention or concentration deficit; Paroxysmal atrial fibrillation (CMS-HCC); Non-ischemic cardiomyopathy (CMS-HCC); Morbid obesity ([facility]-HCC)Start: 11-27-2024 End: 50-83-6960pdphylevchUBHXQGreene Memorial Hospitaltart: 11-27-2024 End: 35-42-2627vsjwgipwyrJVTRXGreene Memorial Hospitaltart: 11-25-2024 End: 92-49-8171omzwkngsgqNUESQUCommunity Medical Center Ambulatory PPGStart: 11-25-2024 End: 17-11-3376Fpbljhr encounter procedureAspen Valley Hospital DO Work Phone: [facility] Medicine - Family MedicineComment on above:Medicare annual wellness visit, subsequent (Primary Dx); Screening for depressionStart: 11-14-2024 End: 70-73-6961ItmjdnOpljk Rafia [facility] Internal Medicine - Family MedicineComment on above:Proteinuria, unspecifiedStart: 11-04-2024 End: 58-89-4962Tgxhzt flowsheetJr. Lesvia Mcclain DO Work Phone: noms [facility] ORTHOPAEDICSStart: 11-04-2024 End: 45-99-7928Fvjsws flowsheetJr. Lesvia Mcclain DO Work Phone: noms [facility] ORTHOPAEDICSStart: 11-04-2024 End: 00-36-6530iewipefualQK.LESVIANot AvailableStart: 11-04-2024 End: 50-55-9585Wblome outpatient visit 15 minutesJr. Lesvia Mcclain DO Work Phone: noms [facility] ORTHOPAEDICSComment on above:Arthritis of right knee (Primary Dx); Acute pain of right knee; Chondromalacia, patella, rightStart: 10-17-2024 End: 64-94-6930meirruoxykCQRAAGreene Memorial Hospitaltart: 10-13-2024 End: 54-37-9955Nruqydxtnbnp care manage srvc 14 day dischargeDmimi Anaya DO Work Phone: [facility] - Family MedicineComment on above:Nonsustained ventricular tachycardia (CMS-HCC) (Primary Dx); Non-ischemic cardiomyopathy (CMS-HCC); Paroxysmal atrial fibrillation (CMS-HCC); Primary hypertension; Need for immunization against influenza; 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 and body mass index (BMI) of 35.0 to 35.9 in adultStart: 10-13-2024 End: 22-92-6242svzcuukcjnQDHVZI G [facility] Ambulatory PPGStart: 10-07-2024 End: 70-80-7145ketpyfhzglZumnbwq R WATERSFacility:CD:[id number]: 09-28-2024 End: 54-87-4330Bjhdwwzjk encounterGeorgette [facility] Call CenterComment on above:critical EKGStart: 09-11-2024 End: 63-04-0233whsxviqxkbLdikify R WATERSFacility:CD:[id number]: 09-03-2024 End: 44-00-5096Swpkoi KgConnor Anaya DO Work Phone: [facility] Internal Medicine - Family MedicineStart: 09-02-2024 End: 51-41-3314Ktxkok flowsFredy HO Work Phone: noms FB ORTHOPAEDICSStart: 09-02-2024 End: 67-19-9095Tejbou Melquiades HO Work Phone: noms FB ORTHOPAEDICSStart: 09-02-2024 End: 40-61-8970Rdbwdtqiu encounterNicole Kong [facility] Internal Medicine - Family MedicineStart: 09-02-2024 End: 09-56-2362wjiqptcjubJGOZKAJ J MEYERNot AvailableStart: 09-02-2024 End: 31-50-6640Uvyypx outpatient visit 25 minutesMasandy HO Work Phone: NOJH ORTHOPAEDICSComment on above:Arthritis of right knee (Primary Dx); Acute pain of right knee; Chondromalacia, patella, rightStart: 08-28-2024 End: 42-81-4344Ijthjk outpatient visit 25 minutesCarmen Lopez MD Work Phone: [facility] HospitalComment on above:Paroxysmal atrial fibrillation (Multi) (Primary Dx); Non-ischemic cardiomyopathy (Multi); Mixed hyperlipidemia; Sinus bradycardia; High risk medication use; Class 2 obesity; BMI 35.0-35.9,adult; Never smoked tobaccoStart: 08-28-2024 End: 66-39-3591xbdbhssrdzYFDTRC M [facility] AmbulatoryStart: 08-19-2024 End: 89-19-3083Bdtltz Naeugenio Lewisreggie DO Work Phone: [facility] Hospitaltart: 08-18-2024 End: 89-06-2188avwoeqrzcwMCXQZHShannon Medical Center HospitalStart: 08-18-2024 End: 92-23-4372ejnwrcrgmnMLJCFOOklahoma [facility] PPGStart: 08-18-2024 End: 61-61-5547Yzduom outpatient visit 25 brandonRayeugenio Lewismileclem DO Work Phone: [facility] - Family MedicineComment on above:Primary hypertension (Primary Dx); Hyperlipidemia, unspecified hyperlipidemia type; Acquired hypothyroidism; Osteoarthritis of multiple joints, unspecified osteoarthritis type; 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 and body mass index (BMI) of 36.0 to 36.9 in adultStart: 07-29-2024 End: 77-28-7273Iaa Drop offAurora X Orzech [facility] Start: 07-29-2024 End: 19-57-9505pukbhngedeRcznsg X OrzechFacility:FTMCStart: 07-29-2024 End: 40-54-3254Wwgcywy encounter procedureAurora X Orzech [facility] start: 07-24-2024 End: 12-91-0578QjldgwSgdtgi G Furlong DO Work Phone: [facility] MedicineStart: 07-15-2024 End: 53-65-2558Xcn Drop offAurora X Orzech [facility] Start: 07-15-2024 End: 75-94-9052sdhwhroqilZrvbbn X OrzechFacility:FTMCStart: 07-15-2024 End: 70-36-2264Hpyppep encounter procedureAurora X Orzech [facility] start: 07-01-2024 End: 45-63-0788wvymvxqpijIbhtxx X OrzechFacility:EU ueStart: 07-01-2024 End: 03-69-8208Dmgdpzz encounter procedureAurora X Orzech [facility] start: 06-10-2024 End: 20-42-4073cxaxqmtzjiPxaufp X OrzechFacility:EU BellevueStart: 06-10-2024 End: 92-33-5094Vmadlpj encounter procedureAurora X Orzech [facility] start: 05-20-2024 End: 79-47-5125eyrrswhnscRbkxkv X OrzechFacility:EU BellevueStart: 05-20-2024 End: 79-66-1876Rdnuodq encounter procedureAurora Marianne Back [facility] start: 05-16-2024 End: 61-49-3427iyxmobxaxkIawyfsr R WATERSFacility:EU [facility] HospitalueStart: 05-16-2024 End: 23-76-3245Gsyqwga encounter procedureYehuda HASSAN [facility] start: 03-06-2024 End: 99-27-9966Xqrafe outpatient visit 25 minutesNick Richardson MD Work Phone: [facility] HospitalComment on above:Mixed hyperlipidemia (Primary Dx); Paroxysmal atrial fibrillation (Multi); Non-ischemic cardiomyopathy (Multi); Never smoked tobacco; BMI 36.0-36.9,adult; Hyperlipidemia, unspecified hyperlipidemia typeStart: 03-06-2024 End: 85-33-6418hqtvtcsefsCAUKPPC P [facility] AmbulatoryStart: 02-22-2024 End: 08-01-5370Bauwea OnlyConnor Anaya DO Work Phone: [facility] Internal [facility] - Family MedicineStart: 02-20-2024 End: 64-29-6258Hlhbex OnlyConnor Tavaresng DO Work Phone: [facility] - Family MedicineComment on above:Sleep Lab (HST)Start: 02-18-2024 End: 66-78-1684rxxbnavqqhNWTFEV G FURLONGChildren's Hospital of [facility] HospitalStart: 02-18-2024 End: 65-44-5298Mrjkqu outpatient visit 25 minutesConnor Anaya DO Work Phone: [facility] Internal Medicine - Family MedicineComment on above: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 (Primary Dx); Minimal cognitive impairment; Sleep apnea, unspecified type; Acquired hypothyroidism; Class 2 severe obesity due to excess calories with serious comorbidity and body mass index (BMI) of37.0 to 37.9 in adult ([facility])Start: 02-14-2024 End: 15-31-2505GpfryqDxutze G Furlong DO Work Phone: [facility] - Family MedicineStart: 12-24-2023 End: 83-17-8629hxpongezcxNIYEADU P [facility] AmbulatoryStart: 12-13-2023 End: 87-73-5989rnuupyddtrMwcpxld R WATERSFacility:EU BellevueStart: 12-13-2023 End: 21-82-4868Rlqtdji encounter procedureYehuda HASSAN [facility] [place] start: 10-26-2023 End: 23-04-1721fokmajoadrQaabwme R WATERSFacility:EU BellevueStart: 10-09-2023 End: 28-55-2353mlltveoinfVZ-C JENNIFER E PERRYFacility:EU BellevueStart: 06-21-5319nawobsoyxiFL DAVID V WESTFacility:F3Ffqiw: 03-05-2023 End: 34-76-3423krqnjsxejbXFLaw HASSAN .Facility:X9Oxwnt: 02-20-2023 End: 79-77-8032hxmnwxxlqkLMMDYX MISCFacility:B1Pshoo: 14-52-0960dqjzvrxukgopal Richardson IIFacility:53304Lruzq: 72-92-9419Yefrjd outpatient visit 25 Kirstie Tavaresng Work Phone: [phone]-Gevfp [facility] 250 DO Work Phone: Start: 77-43-9411Mb RenewalConnor Ruiz Furlong Work Phone: [phone]-Kvivi [place] [facility] 250 DO Work Phone: Start: 11-03-2022 End: 43-89-6925toxeosdkscUALaw HASSAN .Facility:L1Cxfys: 10-27-2022 End: 10-04-4854ljxwxqnrzdHM WILLARD SHARMAFacility:L6Vncqc: 10-16-2022 End: 05-55-2794nfjfdkgczwLA WILLARD SHARMAFacility:X4Zafdr: 10-10-2022 End: 27-84-9251tjuryqmrzxYY YEHUDA HASSAN .Facility:C6Rutiq: 10-06-2022 End: 81-50-6548yvnxaazwxaVI WILLARD SHARMAFacility:I0Qajpn: 09-26-2022 End: 98-06-8268nypdjakxooBH WILLARD Pittman WESTFacility:O5Wbmra: 09-20-2022 End: 77-42-9653bkgsjwtkdwBZ WILLARD SHARMAFacility:J4Bmhzq: 09-07-2022 End: 86-40-3896ogswtriimvPX CONNOR G FURLONGFacility:A3Xjfxh: 09-07-2022 Encounter for preprocedural laboratory examinationOhioHealth O[facility]Bleness Hospitaltart: 09-05-2022 End: 09-28-1648Ucyjlyk encounter procedurePasophy HASSAN [facility] Start: 09-01-2022 End: 72-75-3180ddgaaqhhyySV CONNOR G FURLONGFacility:G8Zruuo: 09-01-2022 End: 25-78-4286Wsybmhkfm for preprocedural laboratory examinationDR CONNOR G FURLONGFacility:X6Krpki: 08-31-2022 End: 96-45-9628juykyevdahSB CONNOR G FURLONGFacility:M1Hlmcy: 25-98-2989Xr RenewalDennis G Furlong Work Phone: [phone]-Rejcn [place] [facility] DO Work Phone: Start: 08-22-2022 End: 52-39-2680knpeifmjyoXM CONNOR G FURLONGFacility:U3Pofau: 08-17-2022 End: 21-45-3662obakdpuxuoHO CONNOR G FURLONGFacility:K5Flzqg: 08-11-2022 End: 96-30-0950Vkr Drop offJENNIFER E INGE [facility] Start: 08-11-2022 End: 98-08-5253Bjevhjd encounter procedureJENNIFER E INGE [facility] start: 08-07-2022 End: 25-15-7020mdmbeqtanyDD WILLARD Pittman WESTFacility:D6Pcdwl: 08-01-2022 End: 63-44-4944nonguofsbeVK WILLARD Pittman WESTFacility:Z5Zlvuo: 07-17-2022 End: 76-67-3808hiyhdahepmED WILLARD Pittman WESTFacility:L8Uouag: 07-12-2022 End: 94-89-2810opssbstuotUR WILLARD Pittman WESTFacility:N8Bqpqh: 06-30-2022 End: 27-42-1595aksnpbxczhWW WILLARD Pittman WESTFacility:I8Aehao: 06-30-2022 End: 61-46-0862Mcshjjw encounter procedurePasophy Catie HASSAN [facility] start: 06-26-2022 End: 59-46-9754jeiafgdtpyLK WILLARD Pittman WESTFacility:L2Pales: 06-19-2022 End: 76-39-1188oleohtgfmfUJ WILLARD Pittman WESTFacility:K5Ljkll: 06-13-2022 End: 31-35-6267rlezfhjrvdNG CONNOR G FURLONGFacility:U4Omwma: 05-31-2022 End: 04-38-3116phrrdcdbijTD CONNOR G FURLONGFacility:L3Ykyof: 05-26-2022 End: 03-49-3650yykfxxkdutPJ CONNOR G FURLONGFacility:Y9Ilgnx: 05-23-2022 End: 61-64-1507hhbnoaukfsKT CONNOR G FURLONGFacility:X0Eddcu: 05-05-2022 End: 34-21-6374ctmsfmrtdiBKDDXT MISCFacility:R9Sogbx: 05-04-2022 End: 77-01-9100tsddphxdwyDM WILLARD Pittman WESTFacility:L1Vyznr: 05-03-2022 End: 35-02-3457vemgnmvepnNFTJTV MISCFacility:C6Ybivi: 04-26-2022 End: 45-73-8378lspqqwtoznOC WILLARD Pittman WESTFacility:Z8Gtnht: 04-13-2022 End: 67-75-8469rieyznpwmjJK DAVID V WESTFacility:N4Wxljh: 37-44-1681oeacimzqrc Connor Sow FurlongFacility:29224Dzvrd: 12-83-3268Ciijpe outpatient visit 25 minutesDeneugenio Ruiz Furlong Work Phone: [phone]-Otcod [place] [facility] 250 DO Work Phone: Start: 03-22-2022 End: 28-90-7593ihyhwwmcywZS DAVID V WESTFacility:R7Bqrqf: 04-75-9515hzsykjiyup Connor Sow FurlongFacility:50838Dfgxn: 35-27-7143Fr RenewalDennis Joseph Furlong Work Phone: [phone]-Psgoy [place] [facility] 250 DO Work Phone: Start: 54-07-0711Aqjgzq outpatient visit 15 minutes Connor Ruiz Furlong Work Phone: [phone]-AzlkeMille Lacs Health System Onamia HospitalScreaming Sports 600 DO Work Phone: Imaging result normalDennis Joseph Furlong Work Phone: [phone]-Kveyw [place] [facility] 250 DO Work Phone: Patient encounter statusDennis G Furlong Work Phone: [phone]-SegcmAlomere Health Hospitalwalk 600 DO Work Phone: Procedures DateProcedureProcedure DetailPerforming ClinicianStart: 93-13-8854Svsxw depression screening assessmentDennis Furlong DO Work Phone: Start: 37-99-9850Dhsua depression screening assessment Connor Furlong DO Work Phone: Start: 67-40-7938Culdp dip stick/tablet rgnt non-auto w/o micrscpDennis Joseph Lewislong DO Work Phone: Start: 58-86-8644Xdbui depression screening assessment Connoreugenio Tavaresng DO Work Phone: Start: 39-18-4145Maivz depression screening assessment Connoreugenio Lewislong DO Work Phone: Start: 38-00-8015Ykojq depression screening assessment Connor Lewislong DO Work Phone: Start: 94-45-5458Xihjcegzprwjmr aspir&/inj major jt/bursa w/o usMatthew Donn HO Work Phone: Start: 23-45-8498Czrgrxmirl examination knee 1/2 views Nany HO Work Phone: Start: 37-64-7649Kcfslp-up visitFollow-Angel Luis [facility] HEALTHStart: 65-94-4910Odfax depression screening assessmentDeneugenio Tavaresng DO Work Phone: Start: 57-30-1418YlzmzshrbkbSlnxze Furlong DO Work Phone: Start: 74-52-0048WQU 12-LEADWILLIAM PAUtart: 27-97-3254HCRDST UP IN CARDIOLOGYWICRANBERRY SPECIALTY HOSPITAL PAUtart: 87-75-0931Hfi routine ecg w/least 12 lds w/i&Jorge Richardson MD Work Phone: Start: 83-37-3479Fqxwz depression screening assessment Connor Tavaresng DO Work Phone: Start: 07-79-8939DJQ 12-LEADWILLIAM PAUtart: 46-43-4479UexoesdjrglNoxvur Furlong DO Work Phone: Start: 36-65-6345Qegeh depression screening assessment Connor Anaya DO Work Phone: Start: 09-81-0788OwzpprwtngSrronyl WATERS Start: 41-11-0432HrhqblfbxdHjrvqar WATERS Start: 65-65-4368NovehzypegNyfmctj WATERS Start: 50-29-0188WwnuaoavepDrqepdr WATERS Start: 92-04-4690Cmktngrjfrdnzt shockwave lithotripsy of the bile ductVasophy HASSAN Comment on above:RightStart: 78-64-7698Mhrenvh sleeve Yehuda HASSAN arthroplasty of kneeDeneugenio Anaya Work Phone: ColonoscopyDeneugenio Anaya Work Phone: Esophagogastrostomy, antesternal or antethoracicDennis Joseph Anaya Work Phone: H/O: artificial jointKnee joint replacement status Connor Anaya DO Work Phone: Comment on above:Problem List clean-up per request of Phys. EHR CmteH/O: hysterectomyPathe medical centerlindsey HASSAN Comment on above:CompleteHernia repairDennis Joseph Anaya Work Phone: HysterectomyDennis Joseph Anaya Work Phone: LithotripsyDeneugenio Anaya Work Phone: Renal artery stent (physical object)Yehuda HASSAN Repair of ventral herniaYehuda HASSAN Plan of Treatment DateCare ActivityDetailAuthorStart: 13-61-7404JPqS,Tdap and Td Vaccines (5 - Td or Tdap)DTaP,Tdap and Td Vaccines (5 - Td or Tdap)[facility] SystemStart: 69-38-6624BOuZ,Tdap and Td Vaccines (6 - Td or Tdap)DTaP,Tdap and Td Vaccines (6 - Td or Tdap)[facility] SystemStart: 64-68-4346GKbH/Tdap/Td Vaccines (3 - Td or Tdap)DTaP/Tdap/Td Vaccines (3 - Td or Tdap)[facility] InstituteStart: 24-17-0133Ejrrmuobfg ScreeningDepression ScreeningC[facility] Clinic [facility] SystemStart: 49-75-8498Wmuj Risk ScreeningFall Risk ScreeningCleveland Clinic [facility] Hospital SystemStart: 65-48-2555Qmkmjze ScreeningTobacco ScreeningFormerly [facility] Centertart: 31-30-2589Mymdr BMI ScreeningAdult BMI ScreeningFormerly [facility] Centertart: 59-66-5810Avulyflxjh ScreeningDepression ScreeningC[facility] Clinic [facility] SystemStart: 80-41-8781Zdsu Risk ScreeningFall Risk ScreeningFormerly [facility] Centertart: 69-88-1929Mxpoioe ScreeningTobacco ScreeningK[facility] [place] Start: 23-16-3651Bcvuo BMI ScreeningAdult BMI ScreeningK[facility]tering Health [place] Start: 81-87-1597Prjfyptvnb ScreeningDepression ScreeningKettering Health [place] Start: 82-68-7860Aerf Risk ScreeningFall Risk ScreeningK[facility]tering Health [place] Start: 27-05-2211Olzbtko ScreeningTobacco ScreeningFormerly [facility] Centertart: 01-06-2026 End: 23-78-7331Cpuevbi encounter /11/2026 10:00 AM EDT Office Visit [facility] [address] [place] [id number] Connor Anaya DO [address] [place] [address] [facility] Family MedicineStart: 43-25-1913Gvaegljrq for malignant neoplasm of colonColon Cancer Screening 5 Year SigmoidoscopyProMedica Health SystemComment on above:Postponed from 1995 (Not Indicated)Start: 11-26-2025 End: 63-55-4662Ifgxkpk encounter /29/2026 1:40 PM EST Office Visit [facility] [address] [place] [address] [phone] Physicians Internal Medicine - Family MedicineStart: 15-96-1217Mgsaf BMI ScreeningAdult BMI ScreeningProOhiohealth Doctors Hospital SystemStart: 57-17-3278Zojkqrjlbl ScreeningDepression ScreeningProOhiohealth Doctors Hospital SystemStart: 51-72-5921Olbs Risk ScreeningFall Risk ScreeningProOhiohealth Doctors Hospital SystemStart: 01-28-2026Medicare Annual Wellness VisitMedicare Annual Wellness VisitProOhiohealth Doctors Hospital SystemStart: 11-03-2025 End: 82-57-2322Lbcvahs encounter procedureNOMS FB ORTHOPAEDICSStart: 10-19-2025 ambulatoryAmbulatoryFacility:EU BellevueStart: 11-80-0284Idkzq BMI Screening Adult BMI ScreeningProOhiohealth Doctors Hospital SystemStart: 37-87-5840Tskgidvzdz Screening Depression ScreeningCleveland Clinic [facility]uclid Hospital SystemStart: 66-70-3150Twge Risk Screening Fall Risk ScreeningCleveland Clinic Euclid Hospital SystemStart: 84-03-6903Nuepoxm Screening Tobacco ScreeningCleveland Clinic Euclid Hospital SystemStart: 09-22-2025 End: 66-66-9447Tqrzxcv encounter inowfadik12/25/2025 11:15 AM EST Office Visit [facility] [address] [place] [address] Jr. Lesvia Mcclain DO [address] [facility] 150 [place] [address] NOMAshley Prince OrthopaedicsStart: 08-27-2025 End: 95-02-4604Oywlagb encounter egfccfrwg65/30/2025 11:20 AM EDT Office Visit [address] [place] [address] Carmen Lopez MD 7[address] [facility] 2, [address] [place] [address] [facility]: 45-40-8293Apxjb BMI ScreeningAdult BMI ScreeningProMedica Health SystemStart: 90-68-3901Enblqhfosb ScreeningDepression ScreeningProEncompass Health Rehabilitation [facility] Doth[facility] Health SystemStart: 69-80-3320Zfnv Risk ScreeningFall Risk ScreeningProEncompass Health Rehabilitation Hospital Of Dothan Health SystemStart: 39-37-0568Tawabvr ScreeningTobacco ScreeningProEncompass Health Rehabilitation Hospital Of Dothan Health SystemStart: 79-30-5845Bshflvlbg for malignant neoplasm of breastMaUniversity Hospitals [facility]: 47-45-6923Qsodhyx referralTrinity Health System Work Phone: Start: 05-57-5910PFEDT-19 Vaccine ( season)COVID-19 Vaccine ( season)[facility]View [facility] Clinic SystemComment on above:Postponed from 06/29/2025 (Vaccine Not Available)Start: 07-29-2025 Influenza vaccinationInfluenza VaccineProOhiohealth Doctors Hospital SystemComment on above: Postponed from 06/29/2025 (Vaccine Not Available)Start: 07-09-2025 End: 54-11-9837Ogupmsd encounter dzfmnlloa02/11/2025 10:00 AM EDT Office Visit [facility] [address] [facility] [place] [address] Connor Anaya, DO [address] [facility] [place] [address] [facility] - Family MedicineStart: 09-00-0010MJHSH-19 Vaccine ( season)COVID-19 Vaccine ()[facility] SystemStart: 25-15-6620Hezqwmxre vaccinationProOhiohealth Doctors Hospital SystemStart: 05-26-2025 End: 15-34-8822Kjrkthy encounter fwbnkdfze31/29/2025 11:00 AM EDT Office Visit [facility] [address] [facility] [place] [address] Jr. Lesvia Mcclain, DO [address] [place] [address] [facility] OrthopaedicsComment on above:ArrivedStart: 03-25-2025 End: 51-04-4556Dmwjsre encounter vybpagftb85/28/2025 1:00 PM EDT Office Visit [facility] [address] [place] [address] Jr. Lesvia Mcclain, DO [address] [place] [address] [facility] ORTHOStart: 03-16-2025 End: 34-76-8914Dxblcak encounter zmxboturx03/19/2025 8:15 AM EDT Appointment [facility] - MRI Imaging [address] [place] [address] Connor Anaya, DO [address] [facility], [place] [address] [facility] - MRI ImagingStart: 02-19-2025 End: 11-31-8469MQ Brain WO contrastMR brain without contrast Imaging Routine Memory loss Cognitive impairment Expected: 02/19/2025, Expires: 02/19/2026 [facility] Work Phone: Comment on above:Expected: 02/19/2025, Expires: 02/19/2026Start: 82-55-9348Hwcvq BMI Follow Up PlanAdult BMI Follow Up Plan [facility] SystemStart: 35-89-8662Xgjpd BMI ScreeningAdult BMI Screening [facility] SystemStart: 05-66-1379Bqyrxnkcoq ScreeningDepression Screening [facility] SystemStart: 92-14-8979Ojvg Risk ScreeningFall Risk Screening [facility] SystemStart: 21-06-8591Cmwywcj ScreeningTobacco Screening [facility] SystemStart: 02-16-2025 End: 72-22-2609Cffvocg encounter /21/2025 9:00 AM EDT Office Visit [facility] Medicine [address] [place] [address] Connor Anaya, [address], [place] [address] [facility] MedicineStart: 01-19-2025 End: 90-82-2225LJ Brain WO contrastMR brain without contrast Imaging Routine Cognitive impairment Expected: 01/19/2025, Expires: 01/19/2026[facility] Work Phone: Comment on above:Expected: 01/19/2025, Expires: 01/19/2026Start: 01-19-2025 End: 32-57-1620Gwkfjwe encounter /24/2025 10:30 AM EDT Office Visit [facility] - [facility] Medicine [address] [place] [address] Connor Anaya DO [address], [place] [address] [facility] MedicineStart: 11-04-2024 End: 43-16-9725Ysttkvz encounter onsemqzqh46/07/2025 11:00 AM EST Office Visit [facility] [address] [facility] [address] Jr. Lesvia Mcclain, DO [address] [place] [address] [facility] FB ORTHOPAEDICSStart: 08-28-2024 End: 45-64-3886Fharfvw encounter mljuerjak35/31/2024 10:40 AM EDT Office Visit [address] [place] [address] Carmen Lopez MD 9[address] [facility] 2, [address] [place] [address] [facility]: 08-18-2024 End: 30-35-5566Vysuclw encounter yiazpghyf31/21/2024 10:30 AM EDT Office Visit [facility] [address] [place] [address] Connor Anaya DO [address], [facility] [place] [address] [facility] - Family MedicineStart: 68-70-9566Ljevnmivo for malignant neoplasm of breastMammogramRegency Hospital Toledo: 19-33-5558Dteia BMI ScreeningAdult BMI ScreeningProOhiohealth Doctors Hospital SystemStart: 06-10-5283Shzsmhlqfk ScreeningDepression ScreeningProCleveland Clinic Hillcrest Hospitalca Health SystemStart: 44-61-5128Qpcisey ScreeningTobacco ScreeningProOhiohealth Doctors Hospital SystemStart: 72-77-9678GVAGL-19 Vaccine ( season)COVID-19 Vaccine ()[facility] SystemStart: 95-06-6839XOJEW-19 Vaccine ( season)COVID-19 Vaccine ( season)[facility] Start: 89-62-4220JUIMW-19 Vaccine ( season)COVID-19 Vaccine ( season)[facility] SystemStart: 27-61-3536CQKXC-19 Vaccine ( season)COVID-19 Vaccine ( season)[facility] Start: 57-61-3136Ddoooeoet vaccinationRegency Hospital Toledo: 06-24-2024 End: 82-12-8578Lvqhigt encounter /27/2024 10:40 AM EDT Office Visit [facility] [address] [place] [address] MroVnvgip [facility]icians Internal Medicine - Family MedicineStart: 72-19-4421Qixk Risk ScreeningFall Risk ScreeningProOhiohealth Doctors Hospital SystemStart: 08-24-2024Medicare Annual Wellness VisitMedicare Annual Wellness VisitProDayton Children's Hospitaltart: 03-17-2024 End: 29-35-0295Fugwteaw Sgbvqso3803/17/2024 7:30 PM EDT Clinical Support [facility] [address] [place] [address] Connor Anaya, DO [address], [place] [address] [facility] Sleep DisordersStart: 14-19-5342WGNZY-19 Vaccine () COVID-19 Vaccine ()[facility] InstituteStart: 02-18-2024 End: 76-73-7974Wgopuwb encounter /22/2024 9:45 AM EDT Office Visit [facility] Internal [facility] - Family Medicine [address] [place] [address] [facility] HospitalConnor paredes, DO [address], [place] [address] [facility] Internal Medicine - Family MedicineStart: 77-65-6297NIU, Provider: Nick Richardson, Status: Pen, Time: 11:20 AMFUV, Provider: Nick Richardson, Status: Pen, Time: 11:20 AMCuyuna Regional Medical Center 250 DO Work Phone: Start: 83-67-0669ZPVII-19 Vaccine ( season) COVID-19 Vaccine ()[facility] Centertart: 12-06-2022 FUV, Provider: Nick Richardson, Status: Pen, Time: 1:10 PMFUV, Provider: Nick Richardson, Status: Pen, Time: 1:10 PM-[facility] 250 DO Work Phone: Start: 32-48-7409FMA, Provider: Nick Sarkar, Status: Pen, Time: 2:20 PMFUV, Provider: Nick Sarkar, Status: Pen, Time: 2:20 PM-[facility] 250 DO Work Phone: Start: 24-58-0282PJY High Risk: (Elderly (60+) or Population) (1 - Risk 60-74 years 1-dose series)RSV High Risk: (Elderly (60+) or Population) (1 - Risk 60-74 years 1-dose series)[facility]: 66-05-0136IYZ patients and/or patients aged 60+ years (1 - 1-dose 60+ series)RSV patients and/or patients aged 60+ years (1 - 1-dose 60+ series)[facility]: 65-55-5188Taljvzjvy for malignant neoplasm of colonColon Cancer Screening 5 Year SigmoidoscopyHighland District HospitalWireless Safety [facility] Hospitaltart: 48-17-0168Gggun BMI Follow Up Plan Adult BMI Follow Up PlanHighland District HospitalPacific Ethanoltart: 39-13-0829Jdjitozp mellitus screeningDiabetes ScreeningUnMcKitrick Hospital: 81-02-2408Vpycgxpg foot examinationDiabetic Foot ExamHighland District HospitalWireless Safety [facility] Start: 94-40-0286Gmlwggysw C screeningHepatitis C ScreeningUnMcKitrick Hospital: 52-56-6133Fpeymqto screeningDiabetic Ophthalmology Exam [facility] CPM [employer] [facility] Hospitaltart: 19-50-8681Qmxcs panelLipid PanelUnMcKitrick Hospital: 1950Medicare Annual Wellness VisitMedicare Annual Wellness Visit (AWV)[facility]: 1950 Screening for malignant neoplasm of colonUnMcKitrick Hospital: 54-90-0635Ktdppbggq for osteoporosisBone Density ScanRegency Hospital Toledo: 39-26-3386Upgqyrc stimulating hormone measurementTSH Level [facility] End: 05-76-5653Mlegxmci identified in Urine by CultureUrine culture (clean catch) Microbiology Routine Cognitive impairment Gross hematuria 1 Occurrences starting 01/19/2025 until 01/19/2026[facility] HospitalUpTo SystemComment on above:1 Occurrences starting 01/19/2025 until 01/19/2026acteria identified in Urine by CultureUrine culture (clean catch) Microbiology Routine Cognitive impairment Gross hematuria 01/19/2025 7:21 PM [employer] End: 55-00-0622Eupetktcfotnu metabolic 2000 panel - Serum or PlasmaComprehensive metabolic panel Lab Routine Primary hypertension 1 Occurrences starting 07/09/2025 until 07/09/2026ProUpTo [facility] Specialty HospitalComment on above:1 Occurrences starting 07/09/2025 until 07/09/2026omprehensive metabolic 1999 panel - Serum or PlasmaComprehensive metabolic panel Lab Routine Primary hypertension 07/09/2025 10:32 AM [employer] End: 62-22-0948Wrhxtsligq A1c/Hemoglobin.total in BloodHemoglobin A1c Lab Routine History of diabetes mellitus, type II 1 Occurrences starting 07/09/2025 until 07/09/2026[employer] Work Phone: Comment on above:1 Occurrences starting 07/09/2025 until 07/09/2026Hemoglobin A1c/Hemoglobin.total in BloodHemoglobin A1c Lab Routine History of diabetes mellitus, type II 07/09/2025 10:32 AM [employer] End: 04-66-8730Xjda sleep studyHom sleep study Sleep Center Routine Sleep apnea, unspecified type 1 Occurrences starting 02/18/2024 until 02/17/2025 [facility] Work Phone: Comment on above:1 Occurrences starting 02/18/2024 until 02/17/2025 End: 80-11-4306Ziiay 1995 panel - Serum or PlasmaLipid profile Lab Routine Hyperlipidemia, unspecified hyperlipidemia type 1 Occurrences starting 08/2025 until 07/09/2026[facility] HospitalUpTo [facility] Specialty HospitalComment on above:1 Occurrences starting 07/09/2025 until 07/09/2026Lipid 1996 panel - Serum or PlasmaLipid profile Lab Routine Hyperlipidemia, unspecified hyperlipidemia type 07/09/2025 10:32 AM EDTProMedGerman Hospital Work Phone: End: 20-32-6114Ikjgxno profile includes TSH JD0Mpsxsbz profile includes TSH FT4 Lab Routine Acquired hypothyroidism 1 Occurrences starting 07/09/2025 until 07/09/2026[facility] SpringfieldComment on above:1 Occurrences starting 07/09/2025 until 07/09/2026Thyroid profile includes TSH CQ5Ikvlqmb profile includes TSH FT4 Lab Routine Acquired hypothyroidism 07/09/2025 10:32 AM EDT [facility]dom[facility] 1 View 10/07/25[facility] Immunizations Immunization DateImmunizationNotesCare QcibglcvQzylakyj44-99-9667Imptoavo trivalent influenza vaccine, adjuvanted, preservative freeDtheresais Debbieclem DO Work Phone: [facility] CenterIsjyknwfox04-22-1026Wwqqxaglhrfk, In Clinic,; Translations: [Drug or medicament (substance)]Connor Markel DO Work Phone: [facility] SpringfieldAfwclo52-11-8235owzhwtqdh virus vaccine, unspecified formulationDennis Chaitanyang DO Work Phone: [facility]01-04-2024Influenza, High-dose, QuadrivalentDennis Debbieng DO Work Phone: [facility] SpringfieldGjjfrj14-34-8085ongvtvzuy virus vaccine, unspecified formulationDennis Debbielong DO Work Phone: [facility]04-25-2023tetanus toxoid, reduced diphtheria toxoid, and acellular pertussis vaccine, adsorbedPatrick HASSAN [facility]12-18-2022Fluzone High-Dose Quadrivalent 0.7 ML Intramuscular Suspension Prefilled SyringeDennis Joseph Tavaresng Work Phone: [phone]-LwangCuyuna Regional Medical Center 250 DO Work Phone: [phone]fgu virus vaccine, unspecified formulationPaCyvera [facility]12-18-2022influenza, high dose seasonal, preservative-freeNick Richardson MD Work Phone: [facility] Work Phone: [phone] 30 MCG/0.3ML Intramuscular SuspensionDennis G Furlong Work Phone: [phone]-XgqxjBigfork Valley Hospitalusky 250 DO Work Phone: [phone]-38, mRNA, LNP-S, PF, 100mcg/0.5mL Dose Connor Furlong DO Work Phone: [facility] SpringfieldTcldhw93-85-2016AFRV-QZW-8 (COVID-19) Vaccine, UnspecifiedDennis Furlong DO Work Phone: [facility] SpringfieldEklbyp37-86-7557ONJV-ZuM-3 mRNA (iduilunucww-kbic-dydqpuj) vaccinePathe medical centerk [employer] [facility]11-11-2021influenza virus vaccine, unspecified formulationPaCyvera [facility]11-01-2021Fluzone High-Dose Quadrivalent 0.7 ML Intramuscular Suspension Prefilled SyringeDennis G Furlong Work Phone: [phone]-SezdvWaseca Hospital And Clinic 250 DO Work Phone: [phone]kcta virus vaccine, unspecified formulationPaCyvera [facility]11-01-2021influenza, high dose seasonal, preservative-Maggi Richardson MD Work Phone: [facility] Work Phone: [phone]-OqcOUjuq COVID-19 Vacc 30 MCG/0.3ML Intramuscular SuspensionDennis G Furlong Work Phone: [facility]02-25-2021Pfizer-BioNTech COVID-19 Vacc 30 MCG/0.3ML Intramuscular SuspensionDennis G Furlong Work Phone: [facility]02-03-2021Pfizer-BioNTech COVID-19 Vacc 30 MCG/0.3ML Intramuscular SuspensionDennis G Furlong Work Phone: [facility]11-16-2020pneumococcal polysaccharide vaccine, 23 valentDennis G Furlong Work Phone: [facility]11-06-2020influenza virus vaccine, unspecified formulationPatrick [employer] [facility]11-06-2020influenza, high dose seasonal, preservative-freeDennis Furlong DO Work Phone: [facility] SpringfieldJixnfs79-51-6177fyewmqbkv, injectable, quadrivalent, contains preservativeDennis G Furlong Work Phone: [phone]-OnuwwRiver'S Edge Hospital 600 DO Work Phone: [phone] virus vaccine, unspecified formulationPatrick [employer] [facility]11-01-2020influenza, high dose seasonal, preservative-freeDennis G Furlong Work Phone: [phone]-ZxyniWaseca Hospital And Clinic 250 DO Work Phone: [phone], injectable, quadrivalent, contains preservativeDennis Furlong DO Work Phone: [facility] SpringfieldSoxdrq66-60-7607zzzflgadfeuu polysaccharide vaccine, 23 valentDennis G Furlong Work Phone: [facility]10-14-2020influenza virus vaccine, unspecified formulationPatrick [employer] [facility]10-14-2020influenza, seasonal, injectableDennis G Furlong Work Phone: [phone]-IwdkdRiver'S Edge Hospital 600 DO Work Phone: [phone] virus vaccine, unspecified formulationPatrick [employer] [facility]10-01-2020influenza, seasonal, injectableDennis G Furlong Work Phone: [phone]-HmeinWaseca Hospital And Clinic 250 DO Work Phone: [phone]prnoh virus vaccine, unspecified formulationPatrick [employer] [facility]11-05-2019influenza, high dose seasonal, preservative-freeDennis G Furlong Work Phone: [phone]-OlhdwRiver'S Edge Hospital 600 DO Work Phone: [phone]pfdtxibbw virus vaccine, unspecified formulationDennis G Furlong Work Phone: [facility]11-01-2019influenza, seasonal, injectableDennis Furlong DO Work Phone: [facility] SpringfieldRbbkcs07-56-4239jvomomqtw virus vaccine, unspecified formulationPatrick [employer] [facility]08-20-2019zoster vaccine recombinantDennis G Furlong Work Phone: [facility]08-01-2019zoster vaccine recombinantDennis G Furlong Work Phone: [facility]06-18-2019zoster vaccine recombinantDennis G Furlong Work Phone: [facility]06-01-2019zoster vaccine recombinantDennis G Furlong Work Phone: [facility]11-01-2018influenza virus vaccine, unspecified formulationDennis G Furlong Work Phone: [phone]-MjcyaCuyuna Regional Medical Center 250 DO Work Phone: [phone]xdutux virus vaccine, unspecified formulationPatrick [employer] [facility]11-30-2017Influenza, injectable, Madin Ese Canine Kidney, preservative free, quadrivalentDennis G Furlong Work Phone: [phone]-FahriWindom Area Hospital 600 DO Work Phone: [phone] 396-134911280245-54-5861kgkyjclri virus vaccine, unspecified formulationDennis G Furlong Work Phone: [phone]-SgqjzMunicipal Hospital [facility] 250 DO Work Phone: [phone] 174-678312866128-15-3840vqnaslnwm virus vaccine, unspecified formulationPatrick [employer] [facility] Hospitalue12-22-2016seasonal influenza, intradermal, preservative freeDennis G Furlong Work Phone: [phone]-GeefwWindom Area Hospital 600 DO Work Phone: [phone]l virus vaccine, unspecified formulationPatrick HASSAN [facility]12-09-2016influenza, seasonal, injectable, preservative freeDennis G Furlong Work Phone: [phone]-RzsyeRiverView Health ClinicPana 600 DO Work Phone: [phone] 149-68480222371-98-8601xshaiucoeyij conjugate vaccine, 13 valent Connor G Furlong Work Phone: [facility]06-09-2016 pneumococcal conjugate vaccine, 13 valentPatrick HASSAN [facility] Hospitalue10-10-2014influenza virus vaccine, unspecified formulationDennis G Furlong Work Phone: [phone]-DmsroMunicipal Hospital And Granite Manor 250 DO Work Phone: [phone], High-dose, QuadrivalentDennis Furlong DO Work Phone: [facility] SpringfieldGvivvu22-16-4069jbwnwswte, unspecified formulationPatrick HASSAN [facility] Hospitalue10-01-2014influenza virus vaccine, unspecified formulationDennis G Furlong Work Phone: [phone]-AvdifCuyuna Regional Medical Center 250 DO Work Phone: [phone]mkvszvbz polysaccharide vaccine, 23 valentDennis G Furlong Work Phone: [facility] Hospitalue12-05-2013pneumococcal conjugate vaccine, 13 valentDennis G Furlong Work Phone: [facility]04-19-2013zoster vaccine, liveDennis G Furlong Work Phone: [facility]01-01-2013influenza virus vaccine, unspecified formulationRaynis Joseph Furlong Work Phone: [phone]-AmjhoCuyuna Regional Medical Center 250 DO Work Phone: [phone]mxahtdrsxq polysaccharide vaccine, 23 valentDennis G Furlong Work Phone: [phone]-LetmvCuyuna Regional Medical Center 250 DO Work Phone: [phone]mpzinvpcto polysaccharide vaccine, 23 valentDennis Furlong DO Work Phone: [facility] SpringfieldNtahhi83-86-9721dbgyvfoevwvn polysaccharide vaccine, 23 valentDennis G Furlong Work Phone: [facility]04-26-2010tetanus toxoid, reduced diphtheria toxoid, and acellular pertussis vaccine, adsorbedConnor Lewislong Work Phone: [facility]02-22-2010novel ocgvctszb-T0G7-97, preservative-free, injectableConnor Lewislong Work Phone: [phone]-NpqyxPark [facility] 600 DO Work Phone: [phone] kmtxjzqoy-W4T2-73, preservative-free, injectableConnor Ruiz Furlong Work Phone: [phone]-CawmjCuyuna Regional Medical Center 250 DO Work Phone: [phone](adult) unspecified formulation; Translations: [Td(adult) unspecified formulation]Connor Anaya Work Phone: [facility]11-09-1999tetanus and diphtheria toxoids, adsorbed, preservative free, for adult use (2 Lf of tetanus toxoid and 2 Lf of diphtheria toxoid)Connor Anaya DO Work Phone: [facility] Systeminfluenza virus vaccine, unspecified formulationDeneugenio Ruiz Furlong Work Phone: [phone]-MabaoWaseca Hospital And Clinic 250 DO Work Phone: Comment on above:2011pneumococcal polysaccharide vaccine, 23 valentDennis G Furlong Work Phone: [phone]-RrsobMunicipal Hospital And Gran[facility] 250 DO Work Phone: Comment on above:2010 Payers DatePayer CategoryPayerPolicy ID2025Medicare (Managed Care)AARP MEDICARE COMPLETE [id number] [id number] Care Other (unspecified)[employer] [facility] [id number] 2015Medicare [id number] or OtherM[employer] [place] [id number] Health [id number] [id number] [id number] [id number] [id number] 2.0.1.695761.3.579.2.71507-65-6326Oniqlss [id number] 2..1.585688.3.579.2.72071-19-9593Ewulboj159093538 2.0.1.801342.3.579.2.55723-27-8357Oaatlvp1597280 2.0.1.545460.3.579.2.83091-62-8685Yiupgio5196357 2.160.1.083569.3.579.2.47436-70-9134Iffgfto4514112 2.160.1.103757.3.579.2.42576-10-4991Tbtvjbx4654133 2.160.1.373046.3.579.2.95518-84-1649Pvdqota0460453 2.16840.1.143474.3.579.2.06051-90-6101Iruvcap6929818 2.16.840.1.990238.3.579.2.92407-14-7901Zhgzxfp9159159 2.16.840.1.545130.3.579.2.83233-79-8261Qvmrjhr2516166 2.16.840.1.589378.3.579.2.57034-97-6288Pltewst2688313 2.16.840.1.699226.3.579.2.99029-48-4773Wbxvkzs9632120 2.16.840.1.401264.3.579.2.40815-48-7175Eaqrvfh8604304 2.16.840.1.444272.3.579.2.39228-09-5977Yjkrhol1003485 2.16840.1.947830.3.579.2.92871-37-3969Ozyggfv4700132 2.16840.1.320346.3.579.2.64045-40-0415Ebzblqp1622415 2.16.840.1.039413.3.579.2.66841-51-8803Bspuabd2900068 2.16.840.1.588024.3.579.2.97989-25-1537Icwzgkd9019215 2.16.840.1.895213.3.579.2.02411-27-3440Ncgoues8018748 2.16.840.1.492807.3.579.2.72213-74-9902Joeucba3342251 2.16.840.1.273804.3.579.2.36843-99-5819Odvigjr5211963 2.16.840.1.215267.3.579.2.23710-15-1604Necbbar3074496 2.16.840.1.345153.3.579.2.51794-49-1088Fkhuzeb2018849 2.16.840.1.201284.3.579.2.41186-18-1000Hakpxtd0556563 2.16.840.1.580495.3.579.2.22530-76-3534Edwsihg7888450 2.16840.1.924972.3.579.2.95404-46-6393Qijevyh5387065 2.16840.1.732877.3.579.2.89542-11-8656Aksagix7154658 2.16840.1.626895.3.579.2.43989-50-2107Ycmnyka6919095 2.840.1.577256.3.579.2.09835-76-2492Jslwota9353644 2.840.1.273089.3.579.2.19397-45-7898Pluibpd7909274 2.840.1.701833.3.579.2.16933-73-5167Lcczket8806874 2.840.1.861236.3.579.2.60082-12-8732Nsxzmwf2214009 2.840.1.453416.3.579.2.22153-40-3052Evtdvnh2243670 2.840.1.085670.3.579.2.60370-82-5641Wbuqxbu4394272 2.840.1.120993.3.579.2.75456-89-7386Wlcwysn3775501 2.840.1.545497.3.579.2.35882-20-8838Vnqwhda3918814 2.16840.1.167479.3.579.2.32900-66-0304Ukztevh8564018 2.840.1.196648.3.579.2.91141-27-4954Oqssuac09615491 2.16.840.1.438450.3.579.2.89091-28-2101Aicaogv41695153 2.16.840.1.388149.3.579.2.26110-70-5727Xailreo96694762 2.16.840.1.961113.3.579.2.24376-10-6290Vcyjfks98686792 2.16.840.1.020619.3.579.2.97747-15-7971Ogfhace31179982 2.16.840.1.783006.3.579.2.28121-05-1497Mgzyrdx66031745 2.16.840.1.469448.3.579.2.93049-23-4200Xsgjfxt51182529 2.16840.1.498943.3.579.2.15544-10-6776Indghgj78609771 2.16840.1.802459.3.579.2.97624-98-2241Kdabbim08975213 2..840.1.311296.3.579.2.62677-96-9288Pgwceqy02419037 2.840.1.916717.3.579.2.45917-49-1935Efefwyk29111441 2.840.1.196784.3.579.2.06526-26-4960Nydfoah73981359 2.16840.1.081168.3.579.2.34474-33-8044Vdughiw956339264 2.16840.1.773358.3.579.2.286887-47-5962Kgdzlft69561655 2.16840.1.945931.3.579.2.435494-30-8647Dxqlots75590039 2.16840.1.042907.3.579.2.300542-31-0925Oziuclx507470229 2.16.840.1.715841.3.579.2.940497-58-7439Gatwvya86137194 2.16840.1.458089.3.579.2.458273-34-3355Zwoxwdu46063668 2.840.1.828705.3.579.2.867033-25-4020Wpvrwme466151679 2.16840.1.648394.3.579.2.274753-64-5619Ysbezfw92704975 2.16840.1.368874.3.579.2.446947-93-0176Vauqqws2843753 2.0.1.135498.3.579.2.279682-25-5718Vaspdxk4034260 2.0.1.744459.3.579.2.319039-91-7184Pnxcllu3793850 2.840.1.119405.3.579.2.522217-30-3180Sspbhjm332432373 2.840.1.550503.3.579.2.850847-12-7540Byfchme724469127 2.840.1.105805.3.579.2.592025-76-6693Kodcmvf844588768 2.840.1.490914.3.579.2.744054-49-5189Wcsagsf181640361 2.840.1.581244.3.579.2.706055-83-5669Lbnneic46572944 2.840.1.580771.3.579.2.132963-62-2390Gudomwq37574202 2.840.1.343716.3.579.2.867794-43-1883Dioqswu94764727 2.16.840.1.519646.3.579.2.80766-99-9800Oytxgwz41740091 2.16.840.1.810207.3.579.2.74567-20-9728Nihohip67675323 2.16.840.1.503609.3.579.2.46416-86-1316Lmtjmys10577145 2.16.840.1.383056.3.579.2.83215-81-3903Qerlzub57896500 2.16.840.1.233957.3.579.2.44256-32-4322Vewovkt38935097 2.16.840.1.503177.3.579.2.727MedicareMedicare Rehab-IP Part [id number]-0wmg-[id number] 0ao3r8ml-hz7z-9tt8-srpb-n5w245d56p5k Social History DateTypeDetailFacilityStart: 02-20-2023 End: 22-59-2710Wsssi a smokerNever a smokerJulie Ville [address] DO Work Phone: Start: 12-28-2021 End: 43-86-4416Zkoqyqt smoking statusNever smoked tobacco (finding)[facility] Tobacco smoking statusNeverExec[facility] of [facility] [place] start: 02-20-2023 End: 72-12-8272Vgg Assigned At BirthFemaleExec[facility]rology of [facility] [place] start: 11-13-2022 End: 74-75-1709Omftlat use and exposureSmokeless tobacco non-userProCleveland Clinic Hillcrest Hospitalca Health SystemStart: 75-86-7717Hwsqgmsst beverage intakeLifetime non-drinker (finding)[facility] Work Phone: Start: 63-32-8762Llt assigned at birthNot on file Groupaliatart: 02-25-2024 End: 66-82-8726Cjtqxsgd to SARS-CoV-2 (event)Not [facility] BeachwoodStart: 10-13-2024 End: 86-20-3707Vuzaqybpt beverage intakeEx-drinker (finding)[facility] SystemDo you belong to any clubs or organizations such as pentecostal groups, unions, fraternal or athletic groups, or school groups?NoProMeduab hospital Health SystemAre you now , , , , never or living with a partner?WidowedProMedica Health SystemHow often to you have a drink containing alcohol?NeverProMedica Health SystemDo you feel stress - tense, restless, nervous, or anxious, or unable to sleep at night because yourmind is troubled all the time - these days [OSQ]Only a littleProMediWish Health SystemStart: 06-02-2015 End: 40-06-8661DweOfrmzv (finding)[place] SystemSexual Orientation [facility] start: 17-16-0897Uyu Assigned At BirthFePaulding County Hospital Medical Equipment Procedure CodeEquipment CodeEquipment Original TextEquipment IdentifierDates Arthroplasty, knee, total, minimally invasiveCEMENT PALACOS R 1X40 SINGLEFDA Start: 99-00-4940Ahgstzuazzbv, knee, total, minimally invasiveSURFACE ARTICULAR LPS FLEXFDAStart: 87-86-5351Oqffkjldcsnp, knee, total, minimally invasiveCEMENT PALACOS R 1X40 SINGLEFDAStart: 03-98-8410Uvsyawhmnqyg, knee, total, minimally invasiveCOMPENT FEMORAL GSF LPSFDAStart: 24-52-2496Qwdovcyghvtu, knee, total, minimally invasiveCOMPONENT TIBIAL STEMMEDFDAStart: 30-56-7525Ihdlheuyqjce, knee, total, minimally invasiveKNEE TOTAL LEVEL 1FDAStart: 11-08-2017 Arthroplasty, knee, total, minimally invasivePATELLA POLY 32 MMFDAStart: 15-02-8145Yntjakbvxnrm, knee, total, minimally invasivePATELLA REAMING SYSTEMFDA Start: 18-84-6102Elezippctbrf, knee, total, minimally invasiveSCREW BONE 6.5MM X 35MMFDAStart: 18-00-9147Ncnbskwwcjss, knee, total, minimally invasiveSCREW BONE 6.5MM X 35MMFDAStart: 53-94-0222Enwjfgpfxhog, knee, total, minimally invasive CEMENT PALACOS R 1X40 SINGLEFDAStart: 35-60-0793Vbagccyknowe, knee, total, minimally invasiveSURFACE ARTICULAR LPS FLEXFDAStart: 95-96-8242Xgbrrtuwcjoo, knee, total, minimally invasiveCEMENT PALACOS R 1X40 SINGLEFDAStart: 11-08-2017 Arthroplasty, knee, total, minimally invasiveCOMPENT FEMORAL GSF LPSFDAStart: 74-60-7613Xbkshtytsgno, knee, total, minimally invasiveCOMPONENT TIBIAL STEMMED FDAStart: 01-50-2482Onrrqballtgq, knee, total, minimally invasiveKNEE TOTAL LEVEL 1FDAStart: 67-94-4231Tnosqyogxqye, knee, total, minimally invasivePATELLA POLY 32 MMFDAStart: 14-13-3244Zjsnlhuegzbq, knee, total, minimally invasive PATELLA REAMING SYSTEMFDAStart: 14-72-8313Qfsjozzylofx, knee, total, minimally invasiveSCREW BONE 6.5MM X 35MMFDAStart: 26-74-0976Cbagohtgueif, knee, total, minimally invasiveSCREW BONE 6.5MM X 35MMFDAStart: 04-89-1731Ttuuccfqtojc, knee, total, minimally invasiveCEMENT PALACOS R 1X40 SINGLEFDAStart: 11-08-2017 Arthroplasty, knee, total, minimally invasiveSURFACE ARTICULAR LPS FLEXFDAStart: 57-69-6183Mkndkihyjmfp, knee, total, minimally invasiveCEMENT PALACOS R 1X40 SINGLEFDAStart: 89-36-5377Sikcjlxepsac, knee, total, minimally invasiveCOMPENT FEMORAL GSF LPSFDAStart: 59-19-8483Uzfukflrmbhh, knee, total, minimally invasive COMPONENT TIBIAL STEMMEDFDAStart: 71-52-3068Aewpgkscembk, knee, total, minimally invasiveKNEE TOTAL LEVEL 1FDAStart: 21-76-6265Qomajvyuwtoe, knee, total, minimally invasivePATELLA POLY 32 MMFDAStart: 38-80-6536Sllcdrwzxelm, knee, total, minimally invasivePATELLA REAMING SYSTEMFDAStart: 57-29-5458Wgevjdurnjzi, knee, total, minimally invasiveSCREW BONE 6.5MM X 35MMFDAStart: 11-08-2017 Arthroplasty, knee, total, minimally invasiveSCREW BONE 6.5MM X 35MMFDAStart: 11-08-2017 Functional Status NhykXwhyruwjikGpdgskJnimyren59-31-2871Bwgmmeypwh StatusN/AExec[facility]10-27-2022Functional StatusN/AFSelect [facility]09-02-2022Functional StatusN/AExec[facility] Clinical Notes 06-30-2022 to 09-04-2025 Note Date & XpkcEisuKnkilmmt96-69-0297 [facility] Reason for cardiology [...] stood up she felt dizzy and she went to sit down but the phone rang therefore she stood up again quickly and she fell without losing consciousness. Her daughter reports that she does not drink much fluids because she forgets. Currently at that time Aldactone was discontinued. She denies orthopnea or paroxysmal nocturnal dyspnea or legs edema 10/17/2025 Miky Fuentes is a 75 y.o. female with history of paroxysmal atrial fibrillation, nonischemic cardiomyopathy, asymptomatic sinus bradycardia, hypertension, hyperlipidemia, obesity status post bariatric surgery, hypothyroidism. She was followed previously by [facility] cardiology in [place]. Recently she was seen in [facility] on 09/12/[address] Resendez after she [...] artery disease Brother Allergies Allerg xt,d.farinae-d.pteronys; Ciprofloxacin; Dunlap; Dog dander; Milk; Mold; Sulfa (sulfonamide antibiotics); [...] 112 mcg by mouth before breakfast., Disp: , Rfl: losartan (Cozaar) 50 mg tablet, Take 1 [...] taking: Reported on 09/04/2025), Disp: , Rfl: Last Recorded Vitals Visit Vitals BP 120/68 (BP Location: Left arm, Patient Position: Sitting) Pulse 60 Ht 1.626 m (5' 4 ) Wt 84.8 kg (187 lb) SpO2 96% BMI 32.10 kg/m??? Smoking Status Never BSA 1.96 m??? Physical Examination: GENERAL: alert and oriented x3, well developed, in no acute distress. HEAD: atraumatic, normocephalic. EYES: ROCHELLE, EOMI. NECK: trachea midline, no JVD present, no carotid bruits present. CARDIAC: S1, S2 present. RRR. No murmur, rubs, or gallops. RESPIRATORY: CTAB, no increased effort of breathing, (more content not included)...[facility]10-28-2025 Hospital Discharge instructions Patient Education 08/25/2025 11:08:08 Hematuria, Adult Hematuria, Adult Hematuria is blood in the urine. Blood may be visible in the urine, or it may be identified with a test. This condition can be caused by infections of the bladder, urethra, kidney, or prostate. Otherpossible causes include: Kidney stones. Cancer of the [...] blood in your urine, even if it ispainless or the blood stops without treatment. Blood in the urine, when it happens and then stops and then happens again, can be a symptom of a very serious condition, including cancer. There is no pain in the initial stages of many urinary cancers. Follow these instructions at home: Medicines Take mwgq-xpz-cipdsqg and prescription medicines only as told by your health care provider. If you were prescribed an antibiotic medicine, take it as told by your health care provider. Do notstop taking the antibiotic even if you start to feel better. Eating and drinking Drink enough fluid to keep your urine pale yellow. It is recommended that you drink 3 4 quarts (2.83.8 L) a day. If you have been diagnosed with an infection, drinking cranberry juice in addition tolarge amounts of water is recommended. Avoid caffeine, [...] about any blood in your urine, even ifit is painless or the blood stops without treatment. Take kdlf-tne-wpbageu and prescription medicines only as told by your health care provider. Drink enough fluid to keep your urine pale yellow. This information is not intended to replace advice given to you by your health care provider. Make sure you discuss any questions you have with your health care provider. Document Revised: 06/15/2021 Document Reviewed: 06/15/2021 [email or web address] Patient Education 2023 [employer]. Follow Up Care 08/24/2025 13:54:11 With:MO HAYDEN, Yehuda Haddad, URL Address: [address] [place] [address]- When: Unknown Comments:F/u as planned 10/19/25, or sooner if needed [facility] 10-28-2025 NotePatient Education Urology Hematuria, Adult Hematuria is blood in the urine. Blood may be visible in the urine, or it may be identified with a test. This condition can be caused by infections of the bladder, urethra, kidney, or prostate. Otherpossible causes include: ??? Kidney stones. ??? Cancer of the urinary tract. ??? Too much calcium in the urine. ??? Conditions that are passed from parent to child (inherited conditions). ??? Exercise that requires a lot of energy. [...] blood in your urine, even if it ispainless or the blood stops without treatment. Blood in the urine, when it happens and then stops and then happens again, can be a symptom of a very serious condition, including cancer. There is no pain in the initial stages of many urinary cancers. Follow these instructions at home: Medicines ??? Take tzth-nih-bndbugv and prescription medicines only as told by your health care provider. ??? If you were prescribed an antibiotic medicine, take it as told by your health care provider. Donot stop taking the antibiotic even if you start to feel better. Eating and drinking ??? Drink enough fluid to keep your urine pale yellow. It is recommended that you drink 3?4 quarts (2.8?3.8 L) a day. If you have been diagnosed with an infection, drinking cranberry juice in addition to large amounts of water is recommended. ??? Avoid caffeine, tea, and carbonated beverages. These tend to irritate the bladder. ??? Avoid alcohol because it may irritate the prostate (in males). General instructions ??? If you have been diagnosed with a kidney stone, follow your health care provider's instructionsabout straining your urine to catch the stone. ??? Empty your bladder often. Avoid holding urine for long periods of time. ??? If you are female: ? After a bowel movement, wipe from front to back and use each piece of toilet paper only once. ? Empty your bladder before and after sex. ??? Pay attention to any changes in your symptoms. Tell your health care provider about any changesor any new symptoms. ??? It is up to you to get the results of any tests. Ask your health care provider, or the department that is doing the test, when your results will be ready. ??? Keep all follow-up visits. This is important. Contact a health care provider if: ??? You develop back pain. ??? You have a fever or chills. ??? You have nausea or vomiting. ??? Your symptoms do not improve after 3 days. ??? Your symptoms get worse. Get help right away if: ??? You develop severe vomiting and are unable to take medicine without vomiting. ??? You develop severe pain in your back or abdomen even though you are taking medicine. ??? You pass a large amount of blood in your urine. ??? You pass blood clots in your urine. ??? You feel very weak or like you might faint. ??? You faint. Summary ??? Hematuria is blood in the urine. It has many possible causes. ??? It is very important that you tell your health care provider about any blood in your urine, even if it is painless or the blood stops without treatment. ??? Take tjvs-qzf-obwzudf and prescription medicines only as told by your health care provider. ??? Drink enough fluid to keep your urine pale yellow. This information is not intended to replace advice given to you by your health care provider. Make sure you discuss any questions you have with your health care provider. Document Revised: 06/15/2021 Document Reviewed: 06/15/2021 [employer] Patient Education ? 2023 [employer]agine.[facility] 08-03-2025 Evaluation note* Diagnosis Onset Date Resolution Status Admit Date Memory loss acuteOctober 2024 1:52pmOSA (obstructive sleep apnea)acuteOctober 2024 1:52pmSleep deprivationacuteOctober 2024 1:52pm [facility] Work Phone: 1(769) 240-674410-06-2025 Evaluation note* Diagnosis Onset Date Resolution Status Admit Date Memory loss acuteOctober 2024 1:52pmOSA (obstructive sleep apnea)acuteOctober 2024 1:52pmSleep deprivationacuteOctober 2024 1:52pmADHD (attention deficit hyperactivity disorder)acuteOctober 2024 10:20amMemory lossacuteOctober 2024 10:20amSleep deprivationacuteOctober 2024 10:20amWord finding difficultyacuteOctober 2024 10:20am [facility] Work Phone: 1(564) 726-801310-06-2025 Hospital Discharge instructionsAmbulatory Orders* Referral to Neuropsychology Time Frame: 08/03/25, Location: None Selected [facility] Work Phone: 1(903) 953-878109-11-2025 History of Present illness Narrative* Connor Anaya, DO - 07/09/2025 10:00 AM EDT Subjective Patient ID: Miky Fuentes is a 75 y.o. female. Miky presents today for a CV recheck. She is taking all of her medications. She does not have anyside effects. She does see the civil cadd technician. She is taking Farxiga for her heart. She continues with weight loss. She is not really doing anything different. Her cancer screenings are up-to-date. Marinaid have bariatric surgery. She has not seen [...] past medical history, past social history, past surgicalhistory, problem list, and medication reconciliation was completed including current medication andpost discharge medication. Review of Systems Constitutional: Positive for fatigue and unexpected weight change. HENT: Negative. Respiratory: Negative. Cardiovascular: Negative. Gastrointestinal: Negative. Musculoskeletal: Negative. Neurological: Negative. Psychiatric/Behavioral: Positive for sleep disturbance. Objective Physical Exam Vitals reviewed. Exam conducted with a brush polisher present (daughter). Constitutional: General: She is not [...] history of bariatric surgery so this is theexpected course. She is also take an Farxiga which has weight loss commonly as a side effect. Overall it is beneficial for her health. We did discuss exercise. She really does not have any room in her home for exercise equipment. She said she does do a lot of walking. Patient noted to have elevated BMI and the following intervention(s) were applied: encouragement toexercise and prescribed diet education. History of diabetes mellitus, type II - Hemoglobin A1c; Future - Hemoglobin A1c Check A1c with her history of diabetes. [facility] History of Present illness Narrative* Jr. Lesvia Mcclain DO - 05/26/2025 11:00 AM EDT Images from the original note were not [...] Other Reaction(s): Unknown Ciprofloxacin Rash and Unknown Dunlap Oil Diarrhea Milk (Cow) Other Increased Mucus [...] SILVER ADULT 50+ PO) as directed Orally [place]-3 Fatty Acids (OMEGA-3 FISH OIL PO) Oral [...] Use: Not At Risk (02/20/2023) [facility] Frequency of Alcohol Consumption: Never Average [...] for requiring urgent evaluation. documented in [facility] encounterN[facility] CenterHxbnwveuyr50-20-6325 Hospital Discharge instructions Patient Education 04/07/2025 11:55:09 [...] Follow these instructions at home: Medicines Take dymh-ysj-lgweqiy and prescription medicines only as told by [...] to keep your pee pale yellow. ?Take pdyq-tgt-jrjdwod or prescription medicines. ?Eat foods that are [...] and water are not available, use hand cloth sponger. ?Change your dressing as told by your provider. ?Leave stitches (sutures), skin glue, or tape strips in place. These skin closures may need to stayin place for 2 weeks or longer. If [...] e-cigarettes. These can delay incision healing after surgery.If you need help quitting, ask your provider. [...] provider. Document Revised: 06/14/2023 Document Reviewed: 06/14/2023 [email or web address] Patient Education 2023 [employer]. 04/07/2025 11:55:06 Percutaneous Nephrolithotomy Percutaneous Nephrolithotomy Percutaneous [...] including vitamins, herbs, eye drops, creams, and pwyy-nzk-vdwagrm medicines. Any problems you or family members [...] These include any diabetes medicines or blood thinnersyou take. Taking medicines such as aspirin and ibuprofen. These medicines can thin your blood. Do not take them unless your provider tells you to. Taking nntt-yan-rhnlrfj medicines, vitamins, herbs, and supplements. Tests You [...] drain pee out of your body during andafter the procedure. Your surgeon will make a [...] put in another tube to help drain pee.This may be: ?A stent. This is put [...] blood oxygen level will be monitored until youleave the hospital or clinic. Any tubes will be removed after 1 2 days if there is only a small amount of blood in your pee. This information is not intended to replace advice given to you by your health care provider. Make sure you discuss any questions you have with your health care provider. Document Revised: 06/14/2023 Document Reviewed: 06/14/2023 [email or web address] Patient Education 2023 [employer]. Follow Up Care 01/20/2025 08:42:49 With:MO HAYDEN, Yehuda Haddad, URL Address: [address] [place] [address]- When:Within 6 Month(s) [facility] 06-10-2025 NotePatient Education Urology Percutaneous Nephrolithotomy, Care After After [...] these instructions at home: Medicines ??? Take ouki-hup-txomtfb and prescription medicines only as told by [...] keep your pee pale yellow. ? Take oygt-lcx-hayugwj or prescription medicines. ? Eat foods that [...] and water are not available, use hand cloth sponger. ? Change your dressing as told by [...] provider. Document Revised: 06/14/2023 Document Reviewed: 06/14/2023 [employer] Patient Education ? 2023 [employer]. Percutaneous Nephrolithotomy Percutaneous nephrolithotomy is a procedure [...] including vitamins, herbs, eye drops, creams, and mqdz-vmz-kimpdyw medicines. ??? Any problems you or family members have had with anesthesia. ??? Any bleeding problems you have. ??? Any surgeries you have had. ?? (more content not included)...[facility]06-09-2025 History of Present illness Narrative* Connor Anaya, - 04/06/2025 11:45 AM EDT Subjective Patient ID: Miky Fuentes is a [...] past medical history, past social history, past surgicalhistory, problem list, and medication reconciliation was completed including current medication andpost discharge medication. Review of Systems Constitutional: Negative. HENT: Negative. Eyes: Negative. Respiratory: Negative. Cardiovascular: Negative. Gastrointestinal: Negative. Endocrine: Negative. Genitourinary: Negative. Musculoskeletal: Negative. Skin: Negative. Allergic/Immunologic: Negative. Neurological: Negative. Hematological: Negative. Psychiatric/Behavioral: Positive for confusion and decreased concentration. Objective Physical Exam Vitals reviewed. Exam conducted with a brush polisher present ([place] MS 3). Constitutional: General: [...] apnea issue as well documented in this encounterK[facility]-2025 NoteUT Electrophysiology Consult Note [place] [facility] Reason for visit: Afib/ Chest pain [...] Lexiscan nuclear stress test on 10-21 at [facility] was uninterpretable due to the EKG portion but there was a fixed defect of the anterior inferior wall. She had an FFR CT study done on 11/27/2024 which did not reveal any significant lesions. She had repeat admission at [facility] for chest pain. With regard to her [...] Use: Not At Risk (02/20/2023) Received from [employer] Frequency of Alcohol Consumption: Never Average Number of Drinks: Patient does not drink Frequency of Binge Drinking: Never Financial Resource Strain: Low Risk (02/20/2023) Received from [facility] Overall Financial Resource Strain (CARDIA) Difficulty of Paying Living Expenses: Not hard at all Food Insecurity: No Food Insecurity (01/19/2025) Received from [employer] Hunger Screening Within the past 12 months we worried whether our food would run out before we got money to buy more.: Never True Within the past 12 months the food we bought just didn't last and we didn't have money to get more.: Never True Transportation Needs: No Transportation Needs (02/20/2023) Received from [employer] PRAPARE - Transportation Lack of Transportation (Medical): No Lack of Transportation (Non-Medical): No Physical Activity: Sufficiently Active (06/21/2023) Received from [employer] Exercise Vital Sign Days of Exercise per Week: 7 days Minutes of Exercise per Session: 30 min Stress: No Stress Concern Present (02/20/2023) Received from [employer] [place] [facility] [employer] [facility] - Occupational Stress Questionnaire Feeling of Stress : Only a little Social Connections: Socially Isolated (11/25/2024) Received from [employer] Social Connection and Isolation Panel [NHANES] Frequency of Communication with Friends and Family: More than three times a week Frequency of Social Gatherings with Friends and Family: Once a week Attends Sabianism Services: Never Active Member of Clubs or Organizations: No Attends Club or Organization Meetings: Never Marital Status: Intimate Partner Violence: Not on file Depression: Not at risk (01/19/2025) Received from [employer] PHQ-2 Total Score: 0 Housing Stability: Low Risk (02/20/2023) Received from [employer] Housing Instability Are you worried or concerned that in the next two months you may not have stable housing that you own, rent or stay in as a part of a household?: No Utilities: Not At Risk (11/25/2024) Received from [employer] [facility] Utilities Threatened with loss of utilities: No [...] the morning. levothyroxine (Sy (more content not included)...[facility]03-24-2025 History of Present illness Narrative* Connor Anaya, DO - 01/19/2025 10:30 AM EDT Subjective Patient ID: Miky Fuentes is a 74 y.o. female. Doesn't feel safe driving to a new city or drive far. The following portions of the patient's history were reviewed and updated as appropriate: allergies, current medications, past family history, past medical history, past social history, past surgicalhistory, problem list, and medication reconciliation was completed including current medication andpost discharge medication. Review of Systems Constitutional: Negative. Respiratory: Negative. Cardiovascular: Negative. Gastrointestinal: Negative. Genitourinary: Positive for hematuria. Musculoskeletal: Positive for arthralgias and back pain. Neurological: Negative. Psychiatric/Behavioral: Negative. Objective Physical Exam Vitals reviewed. Exam conducted with a brush polisher present (Brodie Holt MS 3). Constitutional: General: [...] Morbid obesity (CMS-HCC) Noted [facility] History of Present illness Narrative* Connor Anaya DO - 11/25/2024 3:20 PM EST Subjective SUBJECTIVE: Patient ID: Miky Fuentes is a 74 y.o. female who presents for a Medicare Annual Wellness exam. HPI The following portions of the patient's history were reviewed and updated as appropriate: allergies, current medications, past family history, past medical history, past social history, past surgicalhistory and problem list. AWV FLOWSHEET : Lifestyle [...] Do you have a durable power of assistant district attorney?: Yes Cognitive Screening Do you have [...] 1 year (around 11/25/2025). documented in this [facility] History of Present illness Narrative* Jr. Lesvia Mcclain DO - 11/04/2024 11:00 AM EST Images from the original note were [...] Other Reaction(s): Unknown Ciprofloxacin Rash and Unknown Dunlap Oil Diarrhea Milk (Cow) Other Increased Mucus [...] SILVER ADULT 50+ PO) as directed Orally Fremont-3 Fatty Acids (OMEGA-3 FISH OIL PO) Oral [...] Use: Not At Risk (02/20/2023) Received from [employer], [employer] AUDIT-C Frequency of Alcohol Consumption: Never Average [...] discussed restrictions in her home exercise program. We'llsee her back in 1 year. If her [...] for requiring urgent evaluation. documented in this encounterNevada [facility] [id number] [facility] Reason for cardiology consult: Chief Complaint: Occasional palpitations HPI: Miky Fuentes is a 74 y.o. female with history of paroxysmal atrial fibrillation, nonischemic cardiomyopathy, asymptomatic sinus bradycardia, hypertension, hyperlipidemia, obesity status post bariatric surgery, hypothyroidism. She was followed previously by [facility] cardiology in [place]. Recently she was seen in [facility] on 09/12/[address] Resendez after she [...] changes Lexiscan nuclear stress test 09/29/2024 at [facility] next EKG portion An mental health case manager uninterpretable baseline rhythm due to large amount [...] short run of nonsu (more content not included)...[facility]12-16-2024 History of Present illness Narrative* Connor Anaya, DO - 10/13/2024 8:30 AM EST Subjective Patient ID: Miky Fuentes is a 74 y.o. female. The patient is here today for discharge follow up from hospital. Transition of Care Med Rec completed? Yes Discharged medications: Medications have been reviewed and reconciled with the most recent facilitydischarge document. Miky presents for hospital follow up. She has been taking her medications. She did have 1 episodeof dizziness while at home. She did fall [...] past medical history, past social history, past surgicalhistory, problem list, and medication reconciliation was completed including current medication andpost discharge medication. Review of Systems Objective Physical [...] alert. Assessment/Plan Miky was seen today for [facility] dec 1-3 tbh. Diagnoses and all orders for this visit: Nonsustained ventricular tachycardia (CMS-HCC) Follow up with cardiology as directed. Continue current regimen. Hospital records and tests reviewed. Non-ischemic cardiomyopathy (CMS-HCC) As above. She did have an abnormal Lexiscan. She needs to follow up with Cardiology. Paroxysmal atrial fibrillation ([facility]-HCC) Continue Xarelto Primary hypertension Blood pressure is [...] benefit from weight loss. documented in this encounterK[facility]12-01-2024 Miscellaneous Notes* Telephone Encounter - Juju Van - 09/28/2024 8:45 PM EST Contract: [address] [facility] Suki travis critical EKG report * Telephone Encounter - Juju Van - 09/28/2024 8:45 PM EST Relayed info to Dr Anaya on cell and transferred documented in this encounterK[facility]12-01-2024 Telephone encounter Note* Telephone Encounter - Juju Van - 09/28/2024 8:45 PM EST Contract: [address] [facility] Suki travis critical EKG report [facility]12-01-2024 Telephone encounter Note* Telephone Encounter - Juju Van - 09/28/2024 8:45 PM EST Relayed info to Dr Anaya on cell and transferred [facility]-06-20[facility] History of Present illness Narrative* Connor Anaya DO - 09/03/2024 4:51 PM EST Patient has severe OA of the knee. Handicap parking placard printed documented in this encounterHighland District HospitalWish [facility] [id number] History of Present illness Narrative* VIC Avila - 09/02/2024 1:45 PM ESTAssociated Order(s): L Inj/Asp: R knee Post-Procedure Diagnose(s): [...] KNEE TODAY EPIC 09/02/24 XRAYS 03/26/24 IN [facility] NO MRI NO MDP / [...] SILVER ADULT 50+ PO) as directed Orally Fremont-3 Fatty Acids (OMEGA-3 FISH OIL PO) Oral [...] Use: Not At Risk (02/20/2023) Received from [employer], [employer]C Frequency of Alcohol Consumption: Never Average [...] IN RIGHT KNEE, NEUROVASC INTACT S/P INJ, TOLERATEDWELL Procedure, treatment alternatives, risks and benefits explained, [...] for requiring urgent evaluation. documented in this encounterNevada Regional Medical [id number] Miscellaneous Notes* Telephone Encounter - Isa Triana CMA - 09/02/2024 12:07 PM EST Patient called to renew her handicap placard. Can you please get this ready for patient to bulk picker. * Telephone Encounter - Connor Anaya DO - 09/02/2024 12:07 PM EST Okay, it is ready documented in this encounterK[facility]11-05-2024 Telephone encounter Note* Telephone Encounter - Isa Triana CMA - 09/02/2024 12:07 PM EST Patient called to renew her handicap placard. Can you please get this ready for patient to bulk picker. [facility] Telephone encounter Note* Telephone Encounter - Connor Anaya DO - 09/02/2024 12:07 PM EST Okay, it is ready [facility] HospitalSanswire [id number] History of Present illness Narrative* Carmen Lopez MD - 08/28/2024 10:40 AM EDT Subjective Miky Fuentes is a 74 y.o. [...] and the patient is only taking Xarelto whichhas been well-tolerated. She has prescription for Multaq [...] post remote bariatric surgery, low-calorie diet was recommendedand maintaining active lifestyle Review of Systems Cardiovascular: [...] once daily., Disp: 90 tablet, Rfl: 3 tkmvcwpy-bgq-open-FA-vit K-lut (Centrum Silver Women) 8 mg iron-400 mcg-50 mcg tablet, Take 1 tablet by mouth once daily., Disp: , Rfl: omega-3 fatty acids-fish oil (One-Per-Day Fremont-3) 684-1,200 mg capsule, Take 1 capsule (1,200 [...] my direction and personally dictated by me. Ihave reviewed the chart and agree that the record accurately reflects my personal performance of the history, physical exam, discussion and plan. documented in this [facility] Work Phone: 1(859) 828-593210-31-2024 Instructions* Patient Instructions* Hollie Gleason LPN - 08/28/2024 10:40 AM [...] Follow up 7 months documented in this [facility] Work Phone: 1(865) 423-605110-21-2024 History of Present illness Narrative* Connor Anaya, - 08/18/2024 10:30 AM EDT Subjective Patient ID: Miky Fuentes is a [...] past medical history, past social history, past surgicalhistory, problem list, and medication reconciliation was completed including current medication andpost discharge medication. Review of Systems Constitutional: Negative. [...] has gradually lost weight documented in this encounterHighland District HospitalRadioFrame10-01-2024 Evaluation + Plan note Diagnostic Tests Pending * UroVysion Fish and Urine Cyto ([facility]) 07/29/24 [facility] 09-17-2024 Hospital Discharge instructions Patient Education 07/15/2024 15:39:15 Kidney Stones, Wrvm-rm-Gjsz Kidney Stones Kidney stones are rock-like masses [...] Follow these instructions at home: Medicines Take byoe-zaa-ghwjiol and prescription medicines only as told by [...] provider. Document Revised: 06/08/2023 Document Reviewed: 06/08/2023 [email or web address] Patient Education 2023 [employer]. 07/15/2024 15:39:14 Hematuria, Adult Hematuria, Adult Hematuria is blood in the urine. Blood may be visible in the urine, or it may be identified with a test. This condition can be caused by infections of the bladder, urethra, kidney, or prostate. Otherpossible causes include: Kidney stones. Cancer of the [...] blood in your urine, even if it ispainless or the blood stops without treatment. Blood in the urine, when it happens and then stops and then happens again, can be a symptom of a very serious condition, including cancer. There is no pain in the initial stages of many urinary cancers. Follow these instructions at home: Medicines Take yolo-ums-fihvonp and prescription medicines only as told by your health care provider. If you were prescribed an antibiotic medicine, take it as told by your health care provider. Do notstop taking the antibiotic even if you start to feel better. Eating and drinking Drink enough fluid to keep your urine pale yellow. It is recommended that you drink 3 4 quarts (2.83.8 L) a day. If you have been diagnosed with an infection, drinking cranberry juice in addition tolarge amounts of water is recommended. Avoid caffeine, [...] about any blood in your urine, even ifit is painless or the blood stops without treatment. Take nqoq-gde-vnnczsw and prescription medicines only as told by your health care provider. Drink enough fluid to keep your urine pale yellow. This information is not intended to replace advice given to you by your health care provider. Make sure you discuss any questions you have with your health care provider. Document Revised: 06/15/2021 Document Reviewed: 06/15/2021 [email or web address] Patient Education 2023 [employer]. Follow Up Care 07/03/2024 12:40:23 With:MO HAYDEN, Yehuda Haddad, URL Address: [address] [place] [address]- When: Unknown Comments:pending review of imaging [facility] 09-17-2024 NotePatient Education Urology Kidney Stones Kidney stones are [...] these instructions at home: Medicines ? Take vyse-ldp-lhqpmom and prescription medicines only as told by [...] provider. Document Revised: 06/08/2023 Document Reviewed: 06/08/2023 [email or web address] Patient Education ? 2023 [employer]. Hematuria, Adult Hematuria is blood in the urine. Blood may be visible in the urine, or it may be identified with a test. This condition can be caused by infections of the bladder, urethra, kidney, or prostate. Otherpossible causes include: ? Kidney stones. ? Cancer [...] identify the cause (more content not included)... [facility]09-17-2024 Evaluation + Plan note Diagnostic Tests Pending * Urine Cytology ([facility]) 07/15/24 [facility] 05-09-2024 History of Present illness Narrative* Nick Richardson MD - 03/06/2024 9:30 AM EDT Subjective Miky Fuentes is a 73 y.o. [...] once daily., Disp: 90 tablet, Rfl: 3 uryrpkbo-sjr-dwhv-FA-vit K-lut (Centrum Silver Women) 8 mg iron-400 mcg-50 mcg tablet, Take 1 tablet by mouth once daily., Disp: , Rfl: omega-3 fatty acids-fish oil (One-Per-Day Fremont-3) 684-1,200 mg capsule, Take 1 capsule (1,200 [...] Attestation By signing my name below, IKimberley LPN , Scribe attest that this documentation has been prepared under the direction and in the presence of Maninder Richardson MD. Provider Attestation - Scribe documentation All medical record entries made by the Scribe were at my direction and personally dictated by me. Ihave reviewed the chart and agree that the record accurately reflects my personal performance of the history, physical exam, discussion and plan. documented in this encounterRiver[facility] Institute Work Phone: 1(823) 718-770905-09-2024 Instructions* Patient Instructions* Ivett Mcpherson LPN - 03/06/2024 9:30 AM [...] time of your visit. documented in this encounterRiverview Health Institute Work Phone: 1(959) 474-275704-24-2024 Miscellaneous Notes* Telephone Encounter - Shefali Gudino - 02/20/2024 11:02 AM EDT 02/17 received HST order 02/19 Scheduled HST at [facility] 03/17, 7:30pm Confirmation mailed Routed to Dr. Hussein for approval Medicare/[facility] HST order and 02/17 [place] notes in epic * Telephone Encounter - Shefali Gudino - 02/20/2024 11:02 AM EDT DIRECT REFFERAL ; NEEDS APPROVAL documented in this encounterK[facility]04-24-2024 Telephone encounter Note* Telephone Encounter - Shefali Gudino - 02/20/2024 11:02 AM EDT 02/17 received HST order 02/19 Scheduled HST at [facility] 03/17, 7:30pm Confirmation mailed Routed to Dr. Hussein for approval Medicare/[facility] HST order and 02/17 Chaitanyang notes in epic [employer] [id number] Telephone encounter Note* Telephone Encounter - Shefali Gudino - 02/20/2024 11:02 AM EDT DIRECT REFFERAL ; NEEDS APPROVAL [employer] [id number] History of Present illness Narrative* Connor Ruiz Markel, DO - 02/18/2024 9:45 AM EDT Subjective Patient ID: Miky Fuentes is a 73 y.o. female. Miky presents for recheck of neurocognitive impairment. She feels it is about the same. She has her moments where she can not remember very well. She does have sleep apnea but it resolved followingsignificant weight loss after her bariatric surgery. She was never retested to see if she still hadit. She does report a lot of energy. Follow-up The following portions of the patient's history were reviewed and updated as appropriate: allergies, current medications, past family history, past medical history, past social history, past surgicalhistory, problem list, and medication reconciliation was completed including current medication andpost discharge medication. Review of Systems Constitutional: Negative. [...] serious comorbidity and body mass index (BMI) of37.0 to 37.9 in adult (CMS-HCC) She is still obese. Diet exercise and weight loss discussed. She would benefit from weight loss. Patient noted to have elevated BMI and the following intervention(s) were applied: encouragement toexercise and prescribed diet education. Other orders - fexofenadine (HANNAH) 180 mg tablet; Take 1 tablet (180 mg total) by mouth in the morning. - ikqgg-fj-4-koo-gtw-ngumsan-ast (KRILL OIL) 1,701-923-88-80 mg capsule; Take 1 capsule by mouth inthe morning. documented in this encounterHighland District HospitalRadioFrame11-08-2022 Hospital Discharge instructions Patient Education 09/05/2022 12:09:04 [...] HASSAN Address: [facility] [address] [place] [address]- Business (1) When:03/05/2023 12:06:31 [facility]09-02-2022 Hospital Discharge instructions Patient Education 06/30/2022 12:01:44 Kidney Stones, Ebyd-zu-Ndog Kidney Stones Kidney stones are rock-like masses [...] Follow these instructions at home: Medicines Take fjmk-get-fijdiue and prescription medicines only as told by [...] 04/02/2009 Document Revised: 03/02/2020 Document Reviewed: 03/02/2020 [email or web address] Patient Education 2019 [employer]. Follow Up Care 12/28/2021 15:15:51 With:Yehuda HASSAN MD, URL Address: [address] [place], [place] [id number]- When: Unknown [facility] evaluation + Plan note Future Appointments Appointment Date:03/02/2023 11:00:00 AM Scheduled Provider:Yehuda HASSAN MD Location:[facility] Appointment Type:URO Office Visit [facility] evaluation + Plan note Future Appointments Appointment Date:03/02/2023 11:00:00 AM Scheduled Provider:Yehuda HASSAN MD Location:[facility] Appointment Type:URO Office Visit Diagnostic Tests Pending * Urine Culture [facility]11[facility]22 [facility] Future Appointments Appointment Date:03/02/2023 11:00:00 AM Scheduled Provider:Yehuda HASSAN MD Location:[facility] Appointment Type:URO Office Visit Diagnostic Tests Pending * UroVysion Fish and Urine Cyto ([facility]) 09/05/22 [facility] Future Appointments Appointment Date:05/16/2024 10:45:00 AM Scheduled Provider:Yehuda HASSAN MD Location:[facility] Appointment Type:URO Office Visit [facility] evaluation + Plan note Future Appointments Appointment Date:05/20/2024 11:00:00 AM Scheduled Provider:RAAD Back APRN, [place] X Location:[facility] Appointment Type:URO Office Visit [facility] evaluation + Plan note Future Appointments Appointment Date:06/10/2024 03:00:00 PM Scheduled Provider:RAAD Back APRN, [place] X Location:[facility] Appointment Type:URO Office Visit [facility] evaluation + Plan note Future Appointments Appointment Date:07/01/2024 02:30:00 PM Scheduled Provider:RAAD Back APRN, [place] X Location:[facility] Appointment Type:URO Office Visit [facility] evaluation + Plan note Future Appointments Appointment Date:10/19/2025 10:30:00 AM Scheduled Provider:Yehuda HASSAN MD Location:[facility] Appointment Type:URO Office Visit Future Scheduled Tests Radiology* XR Abdomen 1 View 10/07/25 [facility] evaluation note* Diagnosis Mixed hyperlipidemia- Primary Paroxysmal atrial fibrillation (Multi) Atrial fibrillation Non-ischemic cardiomyopathy (Multi) Other primary cardiomyopathies Never smoked tobacco BMI 36.0-36.9,adult Hyperlipidemia, unspecified hyperlipidemia type documented in this encounter [facility] Work Phone: Evaluation note* Diagnosis Paroxysmal atrial fibrillation (Multi)- Primary Atrial fibrillation Non-ischemic cardiomyopathy (Multi) Other primary cardiomyopathies Mixed hyperlipidemia Sinus bradycardia Other specified cardiac dysrhythmias High risk medication use Class 2 obesity BMI 35.0-35.9,adult Never smoked tobacco documented in this encounter [facility] Work Phone: Evaluation note* Diagnosis Arthritis of right knee- Primary Acute pain of right knee Chondromalacia, patella, right documented in this encounter [facility]* Diagnosis Arthritis of right knee- Primary Acute pain of right knee Chondromalacia, patella, right documented in this encounter [facility] HealthcareEvaluation [facility]* Diagnosis Proteinuria, unspecified [facility]* Diagnosis Medicare annual wellness visit, subsequent- Primary Screening for depression documented in this encounter [facility]* Diagnosis 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- Primary Minimal cognitive impairment Sleep apnea, unspecified type Acquired hypothyroidism Unspecified hypothyroidism Class 2 severe obesity due to excess calories with serious comorbidity and body mass index (BMI) of37.0 to 37.9 in adult ([facility]) documented in this encounter [facility]* Diagnosis Primary hypertension- Primary Unspecified essential hypertension Hyperlipidemia, unspecified hyperlipidemia type Acquired hypothyroidism Unspecified hypothyroidism Osteoarthritis of multiple joints, unspecified osteoarthritis type 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 and body mass index (BMI) of 36.0 to 36.9 in adult documented in this encounter [facility]* Diagnosis Nonsustained ventricular tachycardia (CMS-HCC)- Primary Non-ischemic cardiomyopathy (CMS-HCC) Other primary cardiomyopathies Paroxysmal atrial fibrillation ([facility]-HCC) Atrial fibrillation Primary hypertension Unspecified essential hypertension Need for immunization against influenza Need for prophylactic vaccination and inoculation against influenza 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 and body mass index (BMI) of 35.0 to 35.9 in adult documented in this encounter [facility]* Diagnosis Cognitive impairment- Primary Unspecified persistent mental disorders due to conditions classified elsewhere Memory loss Anemia, unspecified type Acquired hypothyroidism Unspecified hypothyroidism Gross hematuria Attention or concentration deficit Paroxysmal atrial fibrillation (CMS-HCC) Atrial fibrillation Non-ischemic cardiomyopathy (CMS-HCC) Other primary cardiomyopathies Morbid obesity (CMS-HCC) Morbid obesity documented in this encounter [facility]* Diagnosis Memory loss- Primary Cognitive impairment Unspecified persistent mental disorders due to conditions classified elsewhere documented in this encounter [facility] [facility] Diagnosis Cognitive impairment- Primary Unspecified persistent mental disorders due to conditions classified elsewhere Minimal cognitive impairment Attention or concentration deficit Sleep apnea, unspecified type documented in this encounter [facility] Diagnosis Acute pain of right knee- Primary Arthritis of right knee documented in this encounter [facility] HealthcareEvaluation [facility]* Diagnosis Primary hypertension- Primary Unspecified essential hypertension Acquired hypothyroidism Unspecified hypothyroidism Hyperlipidemia, unspecified hyperlipidemia type Class 1 obesity due to excess calories with serious comorbidity and body mass index (BMI) of 33.0 to 33.9 in adult History of diabetes mellitus, type II documented in this encounter [facility] Diagnosis Onset Date Resolution Status Admit Date Memory loss acuteOctober 2024 1:52pm [facility] Work Phone: History of Present illness NarrativePatient returns in follow-up of problems as noted. In the interim she is done well. She has none ofthe symptoms of cardiomyopathy that preceded her original diagnosis of heart failure. With guideline directed therapy in the hinduism of maintenance of sinus rhythm her symptoms [...] merits of diet exercise and weight loss. -[facility] 250 DO Work Phone: History [...] the merits of diet and weight loss. [facility] 250 DO Work Phone: Hospital course Narrative No data available for this section [facility] Hospital Discharge instructions No data available for this section [facility] InstructionsNot on filedocumented in this encounter [facility] [...] available for this section [facility] Chief Complaint * I am doing ok [...] acute myoc ardial infarction: Father, Sister(V17.3, Z82.49) Status:ActiveFH: CABG (coronary artery bypass surgery): Sister(V17.3, Z82.49) Status:ActiveFamily history of cardiomyopathy: Brother(V17.49, Z82.49) Status:Active Unknown Family Member Name Dates Details Family history of cardiomyop athy: Brother(V17.49, Z82.49) Status:ActiveFH: CABG (coronary artery bypass surgery): Sister(V17.3, Z82.49) Status:ActiveFamily history of acute myocardial infarction: Father, Sister (V17.3, Z82.49) Status:Active Unknown Family Member Name Dates Details Family history of acute myoc ardial infarction: Father, Sister(V17.3, Z82.49) Status:ActiveFH: CABG (coronary artery bypass surgery): Sister(V17.3, Z82.49) Status:ActiveFamily history of cardiomyopathy: Brother(V17.49, Z82.49) Status:Active Unknown Family Member Name Dates Details Family history of acute myoc ardial infarction: Father, Sister(V17.3, Z82.49) Status:ActiveFH: CABG (coronary artery bypass surgery): Sister(V17.3, Z82.49) Status:ActiveFamily history of cardiomyopathy: Brother(V17.49, Z82.49) Status:Active Unknown Family Member Name Dates Details Family history of acute myoc ardial infarction: Father, Sister(V17.3, Z82.49) Status:ActiveFH: CABG (coronary artery bypass surgery): Sister(V17.3, Z82.49) Status:ActiveFamily history of cardiomyopathy: Brother(V17.49, Z82.49) Status:Active Unknown Family Member Name Dates Details Family history of acute myoc ardial infarction: Father, Sister(V17.3, Z82.49) Status:ActiveFH: CABG (coronary artery bypass surgery): Sister(V17.3, Z82.49) Status:ActiveFamily history of cardiomyopathy: Brother(V17.49, Z82.49) Status:Active Relationship Condition Age at Onset Recorded Date/T юлия mother Diabetes mellitus Unknown Heart diseaseUnknownfatherHeart diseaseUnknown Summary Purpose Advance Directives No Advanced Directives Records Found Advance Directive Response Recorded Date/ Time Advance Directives No May 12 3:37pm Reason for Referral SpecialtyDiagnoses / ProceduresReferred By ContactReferred To Contact Diagnoses Sleep apnea, unspecified type Procedures Home sleep study Connor Anaya, DO [address] [facility] [place] [address] Ref[facility]Status[facility] DateExpiration DateVisits RequestedVisits [id number] Review/[id number] / ProceduresReferred By ContactReferred To Contact Diagnoses Paroxysmal atrial fibrillation (Multi) Procedures ECG 12 Lead Nick Richardson MD [address] [place] [address] 2, [address] [address] Referral IDStatus[facility] DateExpiration DateVisits RequestedVisits [id number]/9/20245/[id number] / Procedures Referred By ContactReferred To ContactCardiology Diagnoses Non-ischemic cardiomyopathy (Multi) Procedures Follow Up In Cardiology Nick Richardson MD 3 [facility] 2, [place] [address] [place] [id number] Carmen Lopez MD [address] [facility] 2, [address] [address] Referral IDStatusReasonStart DateExpiration DateVisits RequestedVisits [id number]/9/20245/9/[id number] Chief Complaint and Reason for Visit Reason for Visit Admit Date Memory loss August 03, 2025 1: 52pm Chief Complaint Admit Date NPCR MCR & SUPP; PER Connor. JAY JAY July 292024 10:20am Reason for Visit Admit Date Memory loss August 03, 2025 1: 52pm CHRISTOPHER (obstructive sleep apnea) July 1:52pm Sleep deprivation August 03, 2025 1: 52pm Chief Complaint Admit Date NPCR MCR & SUPP; PER NMaite CUELLOJAY JAY July 292024 10:20am NPCR MCR & SUPP; PER NMaite JAY JAY July 292024 9:00am Reason for Visit Admit Date Memory loss August 03, 2025 1: 52pm CHRISTOPHER (obstructive sleep apnea) July 1:52pm Sleep deprivation August 03, 2025 1: 52pm ADHD (attention deficit hyperactivity di sorder) August 10, 2025 10:20am Memory loss August 10, 2025 1 0:20am Sleep deprivation August 10, 2025 1 0:20am Word finding difficulty August 10 10:20am Additional Source Comments INFORMATION SOURCE (unrecogn ized section and content) DATE CREATED AUTHOR 06/26/2022 [facility] DATE CREATED AUTHOR AUTHOR'S ORGANIZ ATION 12/07/2022 [facility] DATE CREATED AUTHOR AUTHOR'S ORGANIZ ATION 12/07/2022 [employer] DATE CREATED AUTHOR AUTHOR'S ORGANIZ ATION 03/09/2023 [facility] DATE CREATED AUTHOR AUTHOR'S ORGANIZ ATION 07/17/2024 [facility] DATE CREATED AUTHOR AUTHOR'S ORGANIZ ATION 09/19/2024 [facility] DATE CREATED AUTHOR AUTHOR'S ORGANIZ ATION 09/25/2024 [facility] DATE CREATED AUTHOR AUTHOR'S ORGANIZ ATION 01/21/2025 [facility] DATE CREATED AUTHOR AUTHOR'S ORGANIZ ATION 03/25/2025 [facility] DATE CREATED AUTHOR AUTHOR'S ORGANIZ ATION 05/27/2025 [facility] DATE CREATED AUTHOR AUTHOR'S ORGANIZ ATION 07/11/2025 [facility] DATE CREATED AUTHOR AUTHOR'S ORGANIZ ATION 08/27/2025 [facility] DATE CREATED AUTHOR AUTHOR'S ORGANIZ ATION 09/03/2025 [facility] DATE CREATED AUTHOR AUTHOR'S ORGANIZ ATION 09/06/2025 [facility] Care Team (unrecognized sect ion and content) Team MemberRelationshipSpecialtyStart DateEnd Date Connor Anaya DO [address], [place] [address] PCP - General10/29/19Team MemberRelationshipSpecialtyStart DateEnd Date Connor Anaya DO PCP - General10/29/19Team MemberRelationshipSpecialtyStart DateEnd Date Connor Anaya MD [address], [place] [address] PCP - GeneralFamily Medicine03/26/24Team MemberRelationshipSpecialtyStart DateEnd Date Connor Anaya MD [address] [place] [address] PCP - GeneralFamily Medicine03/26/24Team MemberRelationshipSpecialtyStart DateEnd Date Connor Anaya MD [address] [place] [address] PCP - GeneralFamily Medicine03/26/24Team MemberRelationshipSpecialtyStart DateEnd Date Connor Anaya MD [address], [place] [address] PCP - GeneralFamily Medicine03/26/24Team MemberRelationshipSpecialtyStart DateEnd Date Connor Anaya DO [address], [place] [address] PCP - GeneralFamily Medicine11/13/22 Desiree Inderjit [facility] Nurse - [employer]07/01/24Team MemberRelationshipSpecialtyStart DateEnd Date Connor Anaya DO [address], [place] [address] PCP - GeneralFamily Medicine11/13/22 Yuni Borja [facility] Nurse - [employer]11/20/24Team MemberRelationshipSpecialtyStart DateEnd Date Connor Anaya DO [address], [place] [address] PCP - GeneralFamily Medicine11/13/22Team MemberRelationshipSpecialtyStart DateEnd Date Connor Anaya DO [address], [place] [address] PCP - GeneralFamily Medicine11/13/22Team MemberRelationshipSpecialtyStart DateEnd Date Connor Anaya DO [address] [place] [address] PCP - GeneralFamily Medicine11/13/22Team MemberRelationshipSpecialtyStart DateEnd Date Connor Anaya, DO [address], [place] [address] PCP - GeneralFamily Medicine11/13/22Team MemberRelationshipSpecialtyStart DateEnd Date Connor Anaya, DO [address], [place] [address] PCP - GeneralFamily Medicine11/13/22 Desiree Jansen [facility] Nurse - [employer]9/01/19Team MemberRelationshipSpecialtyStart DateEnd Date Connor Anaya, [address], [place] [address] PCP - GeneralFamily Medicine11/13/22 Desiree Jansen [facility] Nurse - [employer]9/324Team MemberRelationshipSpecialtyStart DateEnd Date Connor Anaya, [address], [place] [address] PCP - GeneralFamily Medicine11/13/22 Desiree Jansen [facility] Nurse - [employer]9/3/24Team MemberRelationshipSpecialtyStart DateEnd Date Connor Anaya, DO [address], [place] [address] PCP - GeneralFamily Medicine11/13/22 Desiree Jansen [facility] Nurse - [employer]9/3/24Team MemberRelationshipSpecialtyStart DateEnd Date Connor Anaya, DO [address], [place] [address] PCP - GeneralFamily Medicine11/13/22 Desiree Jansen [facility] Nurse - [employer]07/01/24Team MemberRelationshipSpecialtyStart DateEnd Date Connor Anaya DO [address], [place] [address] PCP - GeneralFamily Medicine11/13/22 Yuni Alasandro [facility] Nurse - [employer]11/20/24Team MemberRelationshipSpecialtyStart DateEnd Date Connor Anaya DO [address], [place] [address] PCP - GeneralFamily Medicine11/13/22 Yuni Alasandro [facility] Nurse - [employer]1/Team MemberRelationshipSpecialtyStart DateEnd Date Connor Anaya DO [address], [place] [address] PCP - GeneralFamily Medicine11/13/22 Yuni Alasandro [facility] Nurse - [employer]1Team MemberRelationshipSpecialtyStart DateEnd Date Connor Anaya DO [address], [place] [address] PCP - GeneralFamily Medicine11/13/22 Yuni Alasandro [facility] Nurse - [employer]11/20/24Team MemberRelationshipSpecialtyStart DateEnd Date Connor Anaya MD [address], [place] [address] PCP - GeneralFamily Medicine02/19/25Team MemberRelationshipSpecialtyStart DateEnd Date Connor Anaya MD [address], [place] [address] PCP - GeneralFamily Medicine02/19/25Team MemberRelationshipSpecialtyStart DateEnd Date Connor Anaya DO [address], [place] [address] PCP - GeneralCl[facility]inda [facility] Health Centerly Medicine11/13/22 Yuni Borja [facility] Nurse - [employer]11/20/24 Team Status: Active Member Role Status Dates Connor Anaya DO Primary Care Provider Active Team Status: Inactive Member Role Status Dates Connor Anaya DO Primary Care Provider Active Start: August 03, 2025 End: August 03, 2025Isa Rogers DOAttending ProviderActiveStart: August 03, 2025 End: August 03, 2025 Team Status: Inactive Member Role Status Dates Connor Anaya DO Primary Care Provider Active Start: August 10, 2025 End: August 10, 2025Miguel Ángel Dickerson PhDAttending ProviderActiveStart: August 10, 2025 End: August 10, 2025 Team Status: Inactive Member Role Status Dates Connor Anaya DO Primary Care Provider Active Start: August 11, 2025 End: August 11, 2025Miguel Ángel Dickerson PhDAttending ProviderActiveStart: August 11, 2025 End: August 11, 2025Team MemberRelationshipSpecialtyStart DateEnd Date Connor Anaya DO [address] [facility] [address] [place] [id number] PCP - GeneralClarinda Regional Health Centerly Medicine11/13/22 Yunihenry Borja [facility] Nurse - [employer]11/20/24 Reason for Visit (unrecogniz ed section and content) ReasonCommentsFollow-wv3scLmpnsfqswHymsoluqz / ProceduresReferred By Contact Referred To ContactCardiology Diagnoses Paroxysmal atrial fibrillation (Multi) Procedures Follow Up In Cardiology Nick Richardson MD [address] [place] [address] [address], [address] [address] Referral IDStatusReasonStart DateExpiration DateVisits RequestedVisits [id number]/26/20242/25/[id number]-tv3w SpecialtyDiagnoses / ProceduresReferred By ContactReferred To ContactCardiology Diagnoses Non-ischemic cardiomyopathy (Multi) Procedures Follow Up In Cardiology Nick Richardson MD Ibrahim, Hassan M, MD [address] [facility] 2, [address] [address] Phone: tel: fax: Referral IDStatusReasonStwilmington DateExpiration DateVisits RequestedVisits [id number]/9/20245/[id number]Kxombuhi PainReasonOnset DateCommentsMed Gyhnhu5211/14/2024ReasonCommentsmawReasonComments Med RefillReasonCommentsFollow-upReasonOnset DateCommentsSleep Lab02/20/2024HST ReasonCommentsFollow-upReasonOnset DateCommentscritical EKG14Reason CommentsTCM DEC 1-3 TBHReasonCommentsmemory concernsReasonCommentsFollow-upFrom the MRI of her head March [facility] at [facility].ReasonComments3 month Goals (unrecognized section and content) Goals may be documented in a n alternate section FOR RECORDS PERTAINING TO PATIENTS WHO ARE [...] BE BASED ON THE PRIMARY CLINICAL RECORDS. [employer] [facility]. provides no warranty or guarantee of the accuracy or completeness of information in this document.
[2025-09-10 13:00] LABS: Estimated GFR (African America >60 (>=60 mL/min/1.73m^2); Estimated GFR (Non-African Ame >60 (>=60 mL/min/1.73m^2)
--- NOTE | 2025-09-10 13:04 | CT_ITS ---
[address] [address] Patient Name: MIKY NOLEN MRN: [id number] date: 1950 Sex: F Assigned Patient Location: LAB Current Patient Location: LAB Accession/Order Number: [id number] Exam Date: 09/10/2025 13:32 Report Date: 09/10/2025 23:31 At the request of: AINSLEY HO Procedure: CT abdomen pelvis wo/w con CT ABDOMEN AND PELVIS WITH AND WITHOUT INTRAVENOUS CONTRAST: CLINICAL HISTORY: hematuria COMPARISON: None TECHNIQUE: Spiral images were obtained through the abdomen and pelvis before and after the administration of intravenous contrast. This CT exam was performed using one or more following dose reduction techniques: Automated exposure control, adjustment of the mA and/or kV according to patient size, or use of iterative reconstruction technique. FINDINGS: Lung Bases: [Minimal atelectasis or scarring. Cardiomegaly.] Organs: Multiple bilateral renal calculi. Largest calculus left renal pelvis measuring 1.1 x 0.7 cm in size. Additional bilateral calculi noted on the right measuring up to 6 mm in size. No definite ureteral calculi. No bladder calculi.. There is thickened appearance left renal pelvis and left proximal ureter which may be infectious or inflammatory or chronic. Correlate with urinalysis cytology. No abnormal enhancing renal mass. No bladder mass. Cholelithiasis. Otherwise liver, spleen, adrenals, pancreas unremarkable. [ GI: Postsurgical changes involving the stomach likely from prior sleeve gastrectomy. Postsurgical changes at the GE junction noted. Otherwise tkle-yd-lzthzafw stool burden. No bowel obstruction.[ Pelvis:[No bladder wall thickening no bladder mass. Unremarkable bladder. Uterus absent. No adnexal mass.] Peritoneum/Retroperitoneum: No free air or free fluid. No definite radiopaque identified within the renal pelves or visualized enhanced ureters. Mild plaque involving the nonaneurysmal aorta and mesenteric vessels. Abd wall/Bones: [Multilevel degenerative change of the lumbar spine notably involving the posterior elements. Mild spurring involving both sacral joints.[ CT/CT abdomen pelvis wo/w con IMPRESSION: BILATERAL NEPHROLITHIASIS. LEFT RENAL CALCULUS WITHIN RENAL PELVIS NOTED MEASURING 1.1 CM IN SIZE. THERE IS UROTHELIAL THICKENING LEFT RENAL AND PROXIMAL URETER MAY BE INFECTIOUS OR INFLAMMATORY IN ETIOLOGY. UROTHELIAL NEOPLASM COULD BE AN ADDITIONAL CONSIDERATION ALTHOUGH THIS IS THOUGHT LESS LIKELY. CORRELATION WITH URINE CYTOLOGY RECOMMENDED. Impression dictated by: Seth Cardona M.D. 09/10/2025 11:31 PM Dictation Location: [place] [address] Electronically authenticated by: [id number] Y Date: 09/10/2025 23:31
== END 2025-09-10 12:36 | disposition home or self-care (01) ==
LOC: LAB 12:35
PROVIDERS: Pathology Anatomic Pathology & Clinical Pathology; PCP Family Medicine; Visit Provider Student in an Organized Health Care Education/Training Program
DX: R31.0 Gross hematuria (principal); N20.0 Calculus of kidney
CPT/HCPCS: 36415; 74178; 82565; Q9967

== ENCOUNTER 2025-09-10 12:53 | Outpatient (OUT) | payer MEDICARE, OTHER, SELFPAY ==
--- NOTE | 2025-09-10 12:59 | MM_ITS ---
Patient Name: MIKY NOLEN MR#: [id number] : 1950 Exam Date: 09/10/2025 Ordering Doctor: DR CORNEL ANAYA RADIOLOGY REPORT PROCEDURE: MM TOMOSYNTHESIS SCREENING BI COMPARISON: MM TOMOSYNTHESIS SCREENING BI, 08/05/2024. MM TOMOSYNTHESIS SCREENING BI, 07/27/2023. MG MAMM SCREEN 3D TANMAY CAD, 05/04/2022. MG MAMM TANMAY SCRN W CAD DIG, 11/10/2013. INDICATIONS: screening Calculator Name NCI Breast Cancer Risk Assessment Tool 5 Year Breast Cancer Risk 1.70% Lifetime Breast Cancer Risk 3.80% Personal Breast Cancer No Personal Ovarian Cancer No Treatments Hysterectomy, Oophrectomy Family Cancers Grandmother-maternal with throat,mouth cancer at age ~50; Brother with colon cancer at age ~60. LOCATION: [facility] BREAST COMPOSITION: There are scattered areas of fibroglandular density. FINDINGS: RIGHT BREAST: No significant suspicious finding. LEFT BREAST: No significant suspicious finding. Vascular calcifications present DIAGNOSTIC CATEGORY 1--NEGATIVE. RECOMMENDATIONS: ROUTINE MAMMOGRAM AND CLINICAL EVALUATION IN 12 MONTHS. Dictated by: Bryon Lamb DO on 09/10/2025 at 15:04 Approved by: Bryon Lamb DO on 09/10/2025 at 15:05
--- OUTSIDE RECORDS SUMMARY | 2025-09-10 13:01 | XMS_ITS | CCD ---
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 Name Role Phone Markel Connor Ruiz Unavailable Unavailable Unavailable CONNOR ANAYA Primary Care Physician [phone] Nick Richardson II Attending Unav ailelisabeth Richardson [...] Unavailable WEST, DR WILLARD Pittman Consulting [facility] Primary Care Unavailable [...] CONNOR Ruiz Primary Care Unavailable WEST, DR WLILARD Pittman Admitting Unavailable WEST, DR WILLARD Pittman [...] FURLONG, DR CONNOR Ruiz Primary Care Unavailable KINGWOOD, DR WILLARD Pittman Consulting Unavailable WEST, DR WILLARD Pittman Admitting Unavailable FURLONG, DR CONNOR Ruiz Primary Care Unavailable KINGWOOD, DR WILLARD Pittman Attending Unavailable MISC, DOCTOR Admitting Unavailable MISC, DOCTOR Attending Unavailable MISC, DOCTOR Consulting Unavailable FURLONG, DR CONNOR Ruiz Primary Care Unavailable [place] Connor Garciaard Primary Care Provider Radha Back [...] Provider Connor Anaya MD Primary Care Provider [phone] Radha Back Attending Unavailable Orzech, Radha X Admitting Unavailable Orzech, Radha X Attending Unavailable Yehuda HASSAN Attending Unavailable NICK RICHARDSON Attending Unavailable DEBBIECONNOR HADLEY Primary Care Unavailab NICK Rousseau Attending [...] LESVIA Iraheta Attending Unavaila ble FURLONG, CONNOR G Attending Unavailable FURLONG, CONNOR [...] Unavailable Furlong DO, Connor Primary Care Provider [phone] Isa Rogers DO Attending Provider Jayla Foley, Miguel Ángel Attending Provider [phone] Furlong DO, Connor G Primary Care Provider Yehuda HASSAN Attending Unavailable Myrna, Cassie Attending Unavailable Myrna, Cassie Attending Unavailable Myrna, Cassie Admitting Unavailable Yehuda HASSAN Attending Unavailable INGE, DORA Washburn Attending Unavailable SARAH, SAMAR Referring Unavailable SARAH, SAMAR Referring Unavailable SARAH, SAMAR Referring Unavailable SARAH, MOUNAAR Attending Unavailable KIERANLEONOR Attending Unavailable SARAH, SAMAR Attending Unavailable Allergies Allergy ClassificationReported Allergen(s)Allergy TypeDate of OnsetReaction(s) Facility (20 sources)Ciprofloxacin; Translations: [ciprofloxacin]Drug Hfetxvl47-43-3790 Eruption of skin (disorder), Unknown, RashGeneral Surgery [place] (20 sources)Sulfonamides (Antibiotic); Translations: [Sulfa Drugs]Allergy to drug (finding)Eruption of skin (disorder)[facility] [place] (20 sources)corn extract; Translations: [[place]]Drug Jlungwh02-46-5679Muzkkfn (qualifier value), Other (See Comments)[facility] (19 sources)Dog; Translations: [Dogs]Allergy to substanceUnknown (qualifier value)[facility] (20 sources)Mold Extract; Translations: [mold]Drug Jpiedfo11-79-9375Dwagarz (qualifier value), Other (See Comments)[facility] (19 sources)Milk Products; Translations: [Milk Products]Food allergyUnknown (qualifier value)[facility] (19 sources)house dust mite allergen extract; Translations: [house dust mite allergen extra]Allergy to substanceUnknown (qualifier value)[facility] (2 sources)CiprofloxacinDrug Bfptdde38-71-1843[facility]rx [facility] (1 source)house dust allergenic extractDrug AllergyThe [facility] (2 sources)LactoseDrug AllergyThe [facility] (1 source)Sulfonamides (Antibiotic)Drug allergy (disorder)[facility] (20 sources)Sulfonamides (Antibiotic); Translations: [SULFA (SULFONAMIDE ANTIBIOTICS)]Drug Ijeedfjlkwx79-44-0125Wajgzgp, [facility] (16 sources)[place] Oil; Translations: [CORN OIL]Drug Dzqkohl90-20-6927Lhtnaste, OtherNOChildren's Mercy [facility] (6 sources)Cow milkPropensity to adverse ivyrombtr87-42-5466KogkbWMEZ Healthcare (6 sources)House dust miteAllergy to wuhcstwvy83-21-4922FPNN [facility] (6 sources)Mold ExtractDrug Btjsapb00-34-4720ZaopuFCYI Healthcare (20 sources)Sulfamethoxazole / Trimethoprim; Translations: [SULFAMETHOXAZOLE-TRIMETHOPRIM]Drug Ormtani19-53-2393CegeEktGojbwp Health System (11 sources)Nepalese house dust mite allergenic extract / house dust mite allergenic extract; Translations: [ALLERG XT,D.FARINAE-D.PTERONYS]Drug Fyswjpx92-26-6011JjtMyzked Health System (14 sources)cow milk allergenic extract; Translations: [MILK]Drug Allergy 21-05-1231Xhtar (See Comments)[facility] (2 sources)Sulfonamide; Translations: [sulfa drugs]Drug allergyEruption of skin (disorder)[facility] [place] (3 sources)DustPropensity to adverse qahbvgnhl61-19-7109Wmagxhabui;rasTriHealth (4 sources)dog dander; Translations: [DOG DANDER]Propensity to adverse reactions 10-30-2904WtjgtUniversity Hospitals [facility] Medications Current Medications MedicationDrug Class(es)DatesSig (Normalized)Sig (Original)8 hr acetaminophen 650 mg extended release oral tablet (20 sources)Start: 48-76-8820dnwx 1 tablet by mouth twice dailyTylenol 8 HR Arthritis Pain 650 mg oral tablet, extended release 650 mg = 1 tab(s), Oral, BID, Refills(s) 0 Start Date: 07/01/20 Status: Ordered Medication Dispense Status: Completed Total Allowed Fills: 1 Fills Dispensed: 0Start: 11-19-2017 End: 95-28-2535kuhe 2 tablets by mouth every four hours as needed for pain Acetaminophen 325 mg Tablet Discontinued 650 MG PO Q4H as needed for Pain November 19, 2017 1:00am August 03, 2025 2:11pmStart: 11-19-2017 End: 94-89-9356nkts 1 tablet by mouth every four hours as needed for pain Acetaminophen 325 mg Tablet Discontinued 325 MG PO Q4H as needed for Pain November 19, 2017 1:00am August 03, 2025 11:25amStart: 11-08-2017 End: 59-12-0230urms 1 tablet by mouth twice dailyAcetaminophen (Tylenol) [...] mg oral tablet (20 sources)Xanthine Oxidase InhibitorStart: 91-74-1654lnhy 1 tablet by mouth once dailyallopurinol 300 mg Tab 300 mg = 1 tab(s), Oral, Daily, # 90 cap(s), Refills(s) 3, Pharmacy: [facility], 165, cm, 04/07/25 11:28:00 EDT, Height/Length Dosing, 90.9, kg, 04/07/25 11:28:00 EDT, Weight Dosing Start Date: 04/07/25 Status: Ordered Medication Dispense Status: Completed Quantity: 90.0 Unit: cap(s) Total Allowed Fills: 4 Fills Dispensed: 0Start: 10-25-2017 End: 65-57-3656vowb 1 tablet by mouth once dailyCalcium Carbonate (20 sources)Start: 33-38-1775mpyf 1 tablet by mouth twice dailyCaltrate 600 + D tab(s), Oral, BID Start Date: 07/29/19 Status: Ordered Medication Dispense Status: Completed Total Allowed Fills: 1 Fills Dispensed: 0Start: 72-56-0868hfzf 1 tablet by mouth twice dailyCaltrate 600 + D tab(s), Oral, BID Start Date: 07/29/19 Status: Ordered Repeat number: 1Start: 19-93-5656gzsk 1 tablet by mouth twice dailyCaltrate 600 + D tab(s), Oral, BID Start Date: 07/29/19 Status: Ordered End: 77-02-1323enve 1 tablet by mouth in the morningcalcium [...] the morning. Active Centrum Silver (15 sources)Start: 41-47-8648qxvt 1 tablet by mouth once dailyCentrum Silver 1 tab(s), Oral, Daily, Refill(s) 0 Start Date: 07/01/20 Status: Ordered Medication Dispense Status: Completed Total Allowed Fills: 1 Fills Dispensed: 0Start: 49-69-3049urmm 1 tablet by mouth once dailyCentrum Silver [...] 25 mcg in the evening. Active End: 80-19-1193rkpc 1 tablet by mouth in the morningcholecalciferol 1,000 units tablet Take 1 tablet (1,000 Units total) by mouth in the morning. 04/06/2025 Discontinued (Therapy completed)collagen/biotin/ascorbic acid (COLLAGEN 1500 PLUS C ORAL) (2 sources)collagen/biotin/ascorbic acid (COLLAGEN 1500 PLUS C ORAL) Take 1 capsule by mouth once daily. Activedapagliflozin 10 mg oral tablet (9 sources)Sodium-Glucose Cotransporter 2 InhibitorStart: 66-77-4130Zhadytm 10 mg oral tablet 10 mg = 1 tab(s), Refills(s) 0 Start Date: 08/25/25 Status: Ordered Medication Dispense Status: Completed Total Allowed Fills: 1 Fills Dispensed: 0Start: 13-21-9564mxhg 1 tablet by mouth once dailyfexofenadine hydrochloride 180 mg oral tablet (20 sources)Histamine-1 Receptor AntagonistStart: 16-25-1189vene 1 tablet by mouth once dailytake 1 tablet by mouth once dailyfexofenadine (Hannah) 60 mg tablet Take 1 tablet (60 mg) by mouth once daily. Activelevothyroxine sodium 0.112 mg oral tablet (20 sources)l-ThyroxineStart: 08-03-2025 End: 73-03-0584pllc 1 capsule by mouth once dailyLevothyroxine 137 mcg capsule Discontinued 137 MCG PO Daily August 03, 2025 12:00am August 03, 2025 2:11pm Start: 08-19-2024 End: 70-83-3171lkxt 1 tablet by mouth in the morninglevothyroxine (SYNTHROID, LEVOTHROID) 112 MCG tablet TAKE 1 TABLET BY MOUTH IN THE MORNING 90 tablet 3 08/20/2025 ActiveStart: 02-20-2024 End: 98-38-9782omeq 1 tablet by mouth once daily in the morninglevothyroxine (SYNTHROID, LEVOTHROID) 125 MCG tablet take 1 tablet by mouth every morning 90 tablet1 07/24/2024 08/19/2024 Discontinued (Dose adjustment)Start: 09-09-2023 End: 85-44-5062pgcw 1 tablet by mouth once daily in the morninglevothyroxine (SYNTHROID, LEVOTHROID) 137 MCG tablet take 1 tablet by mouth every morning 90 teqfza4202/14/2024 02/20/2024 Discontinued (Dose adjustment)Start: 91-64-9761bbta 1 capsule by mouth once dailylevothyroxine 137 mcg (0.137 mg) oral capsule 137 microgram = 1 cap(s), Oral, Daily Start Date: 07/29/19 Status: Ordered Medication Dispense Status: Completed Total Allowed Fills: 1 Fills Dispensed: 0Start: 10-25-2017 End: 31-42-8944lvrj 1 tablet by mouth once daily in the morningLevothyroxine 100 mcg Tablet Discontinued 100 MCG PO Every morning October 25, 2017 1:00am November 19, 2017 1:19pmlisinopril 2.5 mg oral tablet (20 sources)Angiotensin Converting Enzyme InhibitorStart: 06-30-2022 End: 54-75-4841nrsijtpsah 2.5 mg Tab Refills(s) 0 Start Date: 06/30/22 Status: Ordered Repeat number: 1losartan potassium 50 mg oral tablet (7 sources)Angiotensin 2 Receptor BlockerStart: 37-17-6550yyhvsghs 50 mg Tab 50 mg = 1 tab(s), Refills(s) 0 Start Date: 08/25/25 Status: Ordered Medication Di spense Status: Completed Total Allowed Fills: 1 Fills Dispensed: 0losartan (COZAAR) 50 mg tablet Take 1 tablet (50 mg total) by mouth. Activelovastatin 10 mg oral tablet (20 sources)HMG-CoA Reductase InhibitorStart: 10-21-2022 End: 18-58-8399pdtn 1 tablet by mouth in the morninglovastatin (MEVACOR) 10 mg tablet TAKE 1 TABLET BY MOUTH IN THE MORNING 90 tablet 3 08/20/2025 ActiveMega Krill Oil (4 sources)Start: 02-38-5652cvvw 1 capsule by mouth once dailyMega Krill Oil Abelino Krill Oil, one cap., Oral, Daily Start Date: 07/29/19 Status: Ordered Multiple Vitamins-Minerals (CENTRUM SILVER ADULT 50+ PO) (9 sources)Multiple Vitamins-Minerals (CENTRUM SILVER ADULT 50+ PO) as directed Orally Znbijpxfnyarpm-lct-rmvy-FA-vit K-lut (Centrum Silver Women) 8 mg iron-400 mcg-50 mcg tablet (2 sources)take 1 tablet by mouth once futhfjcjdwyaz-cis-pehu-FA-vit K-lut (Centrum Silver Women) 8 mg iron-400 mcg-50 mcg tablet Take 1 tabletby mouth once daily. Btsglvtkydjzqc-pia-hzjs-FA-vit K-lut (CENTRUM SILVER WOMEN) 8 mg iron-400 mcg-50 mcg tablet (20 sources)take 1 tablet by mouth once in the cexllfsmslbfblv-acx-qnhz-FA-vit K-lut (CENTRUM SILVER WOMEN) 8 mg iron-400 mcg-50 mcg tablet Take 1 tabletby mouth in the morning. KykonuWyumseubcpkg-Efzmkwda-Qaxddq tablet (3 sources)Start: 03-95-0503jcrr 1 tablet by mouth once dailyStart: 08-03-2025 take 1 tablet by mouth once dpxafCdmyrddkuhjk-Inerrqha-Sahfkv tablet Active 1 TAB PO Daily August 03, 2025 12:00am Complies with drug therapyOmega-3 Fatty Acids (OMEGA-3 FISH OIL PO) (9 sources)[place]-3 Fatty Acids (OMEGA-3 FISH OIL PO) Take by mouth Activeomega-3 fatty acids-fish oil (One-Per-Day Copeland-3) 684-1,200 mg capsule (2 sources)omega-3 fatty acids-fish oil (One-Per-Day Cop[place]-3) 684-1,200 mg capsule Take 1 capsule (1,200 mg) by mouth once daily. ActiveOTC joint supplement (15 sources)Start: 79-19-1647zbbk 1 tablet by mouth once dailyOTC joint supplement OTC joint supplement, one tab, Oral, Daily Start Date: 07/01/20 Status: Ordered Medication Dispense Status: Completed Total Allowed Fills: 1 Fills Dispensed: 0Start: 82-96-2304sccc 1 tablet by mouth once dailyOTC joint supplement OTC joint supplement, one tab, Oral, Daily Start Date: 07/01/20 Status: Ordered Repeat number: 1Start: 29-27-7023htbp 1 tablet by mouth once dailyOTC joint supplement OTC joint supplement, one tab, Oral, Daily Start Date: 07/01/20 Status: OrderedPotassium Bicarb And Chloride 25 mEq tablet, effervescent (3 sources)Start: 91-44-0370xxos 1 tablet by mouth once dailyStart: 08-03-2025 take 1 tablet by mouth once dailyPotassium Bicarb And Chloride 25 mEq tablet, effervescent Active 25 EACH PO Daily August 032:00am Complies with drug therapypotassium bicarbonate 25 meq effervescent oral tablet (20 sources)Start: 45-10-2241LSYEF-K 25 mEq disintegrating tablet 12/08/2023 Activerivaroxaban 20 mg oral tablet (20 sources)Factor Xa InhibitorStart: 07-29-2019 End: 72-18-6802wqyw 1 tablet by mouth once dailyXarelto 20 mg oral tablet 20 mg = 1 tab(s), Daily Start Date: 07/29/19 Status: Ordered Medication Dispense Status: Completed Total Allowed Fills: 1 Fills Dispensed: 0sodium bicarbonate 650 mg oral tablet (6 sources)take 1 tablet by mouth oncesodium bicarbonate 650 MG tablet Take 650 mg by mouth 1 (one) time ActiveVitamin D3 (15 sources)Start: 26-20-2843hihk 1 dose by mouth once dailyVitamin D3 1,000 International_Unit, Oral, Daily, Refills(s) 0 Start Date: 07/29/19 Status: Ordered Medication Dispense Status: Completed Total Allowed Fills: 1 Fills Dispensed: 0Start: 18-89-6883Zcaggdt D3 1,000 International_Unit, Oral, Daily, Refills(s) 0 Start Date: 07/29/19 Status: Ordered Repeat number: 1Start: 90-65-0643Izpfxlm D3 1,000 International_Unit, Oral, Daily, Refills(s) 0 Start Date: 07/29/19 Status: Ordered Completed/Discontinued Medications MedicationDrug Class(es)DatesSig (Normalized)Sig (Original)acetaminophen 325 mg / oxyCODONE hydrochloride 5 mg oral tablet (6 sources)Opioid AgonistStart: 11-19-2017 End: 28-90-8145lxno 2 tablets by mouth every four hours as needed for pain Oxycodone-Acetaminophen 5-325 mg Tablet Discontinued 2 TAB PO Q4H as needed for Pain scale 6-10 November 19, 2017 1:00am August 03, 2025 11:26amascorbic acid 500 mg oral tablet (3 sources)Vitamin CStart: 11-19-2017 End: 63-78-0714nyei 1 tablet by mouth twice daily at mealtimeAscorbic Acid (Vitamin C) (Vitamin C) 500 mg Tablet Discontinued 500 MG PO Twice daily with meals November 19, 2017 1:00am August 03, 2025 11:25amaspirin 81 mg chewable tablet (3 sources)Platelet Aggregation Inhibitor, Nonsteroidal Anti-inflammatory Drug Start: 10-25-2017 End: 49-13-2021bocw 1 tablet by mouth once daily in the eveningAspirin 81 mg Tablet,Chewable Discontinued 81 MG PO Every evening October 25, 2017 1:00am November 08, 2017 12:29pm5 ml bupivacaine hydrochloride 5 mg/ml injection (4 sources)Amide Local AnestheticStart: 09-02-2024 End: 99-06-2930yzouzojaauu PF (Marcaine) 0.5 % injection 1 mLStart: 09-02-2024 End: mL, Injection, Once PRN Procedure, Starting on Sun09/02/24 at 1414, For 1 dosecalcium carbonate 1250 mg / cholecalciferol 200 unt oral tablet (6 sources)Vitamin DStart: 11-19-2017 End: 91-35-7356eswu 1 tablet by mouth twice dailyCalcium Carbonate-Vitamin D3 (Oyster Shell Calcium-Vit D3) 500 mg(1,250mg) -200 unit Tablet Discontinued 1 TAB PO Twice daily November 19, 2017 1:00am August 03, 2025 2:11pmStart: 10-25-2017 End: 26-31-2300Rkuaerk Carbonate-Vitamin D3 (Caltrate 600 + D) 600 mg (1,500 mg)-800 unit Tablet,Chewable Discontinued 1 TAB PO Twice daily October 25, 2017 1:00am November 19, 2017 1:19pmCentrum Silver 50+Women Oral Tablet (7 sources)take 1 tablet by mouth once dailyCentrum Silver 50+Women Oral Tablet TAKE 1 TABLET DAILY. Quantity: 0 Refills: 0 Ordered: 16-Aug-2021 DO Active cephalexin 500 mg oral capsule (1 source)Cephalosporin AntibacterialStart: 37-21-6482umth 1 capsule by mouth once dailyKeflex 500 mg Cap 500 mg = 1 cap(s), Oral, Daily, Take 1 capsule the day before the procedure and 1capsule after the procedure, # 2 cap(s), Refills(s) 0, Pharmacy: [facility], 165, cm, 06/30/22 11:48:00 EDT, Height/Length Dosing, 113, kg, 06/30/22 11:4... Start Date: 08/22/22 Status : OrderedCollagen Ultra Oral Capsule (7 sources)take 1 capsule by mouth once dailyCollagen Ultra Oral Capsule TAKE 1 CAPSULE Daily Quantity: 0 Refills: 0 Ordered: 16-Aug-2021 DO Active diphenhydrAMINE hydrochloride 25 mg oral capsule (3 sources)Histamine-1 Receptor AntagonistStart: 11-19-2017 End: 93-33-3830ifhd 1 capsule by mouth once daily at bedtime as needed Diphenhydramine Hcl 25 mg Capsule Discontinued 25 MG PO Daily at bedtime as needed for Insomnia November 19, 2017 1:00am August 03, 2025 11:25am docusate sodium 100 mg oral capsule (3 sources)Start: 11-19-2017 End: 93-97-0285lvfw 1 capsule by mouth three times dailyDocusate Sodium 100 mg Capsule Discontinued 100 MG PO Three times daily November 19, 2017 1:00am August 03, 2025 11:26amdronedarone 400 mg oral tablet (20 sources)AntiarrhythmicStart: 10-25-2017 End: 97-35-4009cxvw 1 tablet by mouth twice dailyDronedarone (Multaq) 400 mg Tablet Discontinued 400 MG PO Twice daily November 19, 2017 1:00am August 03, 2025 11:26amferrous sulfate 324 mg delayed release oral tablet (12 sources)Start: 11-19-2017 End: 01-23-0351vnpn 1 tablet by mouth twice daily at mealtimeFerrous Sulfate 324 mg (65 mg iron) Tablet,Delayed Release (Dr/Ec) Discontinued 324 MG PO Twice don y with meals November 19, 2017 1:00am August 03, 2025 2:11pmStart: 11-08-2017 End: 88-43-4700grmg 1 tablet by mouth once dailyFerrous Sulfate [...] b12 0.025 mg oral capsule (3 sources)Vitamin X16Spoxg: 11-08-2017 End: 29-01-7025ogtw 1 capsule by mouth once dailyIron Ps Lnhurcd-H36-Ygjrd Acid (Ferrex 150 Forte) 150-25-1 mg-mcg-mg capsule Discontinued 1 CAP PO Daily November 08, 2017 1:00am November 19, 2017 1:19pmK-Effervescent 25 mEq oral tablet, effervescent (11 sources)Start: 07-33-2522resn 1 tablet by mouth twice dailyK-Effervescent 25 mEq oral tablet, effervescent 25 mEq = 1 tab(s), Oral, BID, # 60 tab(s), Refills(s) 11, Pharmacy: [facility], 165, cm, 04/07/25 11:28:00 EDT, Height/Length Dosing, 90.9, kg, 04/07/25 11:28:00 EDT, Weight Dosing Start Date: 04/07/25 Status: Ordered Medication Dispense Status: Completed Quantity: 60.0 Unit: tab(s) Total Allowed Fills: 12 Fills Dispensed: 0Start: 04-07-2025 take 1 tablet by mouth twice dailyK-Effervescent 25 mEq oral tablet, effervescent 25 mEq = 1 tab(s), Oral, BID, # 60 tab(s), Refills(s) 11, Pharmacy: [facility], 165, cm, 04/07/25 11:28:00 EDT, Height/Length Dosing, 90.9, kg, 04/07/25 11:28:00 EDT, Weight Dosing Start Date: 04/07/25 Status: Ordered Quantity: 60.0 Unit: tab(s) Repeat number: 12Start: 10-26-2023 take 1 tablet by mouth twice dailyK-Effervescent 25 mEq oral tablet, effervescent 25 mEq = 1 tab(s), Oral, BID, # 60 tab(s), Refills(s) 11, Pharmacy: [facility], 165, cm, 10/26/23 8:42:00 EST, Height/Length Dosing, 97.5, kg, 10/26/23 8:42:00 EST, Weight Dosing Start Date: 10/26/23 Status: Orderedkrill oil 500 mg oral capsule (20 sources)Start: 08-03-2025 End: 29-49-4406Fbhqc Oil 500 mg capsule Discontinued MG PO August 03, 2025 12:00am August 03, 2025 2:12pmStart: 69-81-1821bxwv 1 capsule by mouth in the zygqvklvwhct-cs-9-sui-lvh-frovfcw-ast (KRILL OIL) 1,610-907-98-80 mg capsule Take 1 capsule by mouth in the morning. 02/18/2024 ActiveKrill Oil 1000 MG capsule Orally Active End: 82-27-8854fbzks oil 500 mg capsule Take by mouth daily. 08/18/2024 Discontinued (Patient Stopped On Own)Uukjw-Fq-1-Jlw-Lwf-Utmfmbu-Ast (Megared Copeland-3 Krill Oil) 1,000-230-60 mg Capsule (3 sources)Start: 10-25-2017 End: 27-41-5070Uqdrz-Is-7-Gfv-Lyj-Tevajyj-Kjx (Megared Copeland-3 Krill Oil) 1,000-230-60 mg Capsule Discontinued 1 CAP PO Daily October 25, 2017 1:00am November 08, 2017 12:29pmloratadine 10 mg oral tablet (20 sources)Start: 10-25-2017 End: 24-10-9305rbeu 1 tablet by mouth once daily as neededLoratadine 10 mg Tablet Discontinued 10 MG PO Daily as needed for Allergy Symptoms October 1:00am August 03, 2025 11:26am End: 94-64-6993bgij 1 capsule by mouth once dailyloratadine 10 mg capsule Take 1 capsule by mouth once daily. 03/06/2024 Discontinued (Other)1 ml methylPREDNISolone acetate 40 mg/ml injection (4 sources)CorticosteroidStart: 09-02-2024 End: 16-28-1707veufnoRTHIXOKgonsq acetate (DEPO-Medrol) injection 40 mgStart: 09-02-2024 End: 45-42-475074 mg, Intra-articular, Once PRN Procedure, Starting on Sun09/02/24 at 1414, For 1 doseMultivitamin (Multiple Vitamins) Tablet (3 sources)Start: 10-25-2017 End: 62-84-2338jomr 1 tablet by mouth twice dailyMultivitamin (Multiple Vitamins) Tablet Discontinued 1 TAB PO Twice daily October 25, 2017 1:00am November 19, 2017 1:19pmMultivitamin With Folic Acid (Thera) 400 mcg Tablet (3 sources)Start: 11-19-2017 End: 08-39-8835oqom 1 tablet by mouth once dailyMultivitamin With Folic Acid (Thera) 400 mcg Tablet Discontinued 1 TAB PO Daily November 19, 2017 1:00am August 03, 2025 11:26amOmega 3 CAPS (7 sources)Copeland 3 CAPS TAKE DIRECTED. Quantity: 0 Refills: 0 Ordered: 16-Aug-2021 DO Activesennosides, fpc 8.6 mg oral tablet (3 sources)Start: 11-19-2017 End: 81-05-9357xyjd 2 tablets by mouth once daily as neededSennosides (Senna Lax) 8.6 mg Tablet Discontinued 2 TAB PO DAILY@12 as needed for If no BM in 2 days 0 November 19, 2017 1:00am August 03, 2025 11:26amtamsulosin hydrochloride 0.4 mg oral capsule (11 sources)alpha-Adrenergic BlockerStart: 08-03-2025 End: 29-31-3059cgdm 1 capsule by mouth once dailyTamsulosin 0.4 mg capsule Discontinued 0.4 MG PO Daily August 03, 2025 12:00am August 03, 2025 2:12pm Start: 08-05-2024 End: 46-04-8981dlkq 1 capsule by mouth once dailytamsulosin (Flomax) 0.4 MG 24 hr capsule Take 0.4 mg by mouth Daily 08/05/2024 Active Problems Active Problems Problem ClassificationProblemDateDocumented DateEpisodic/ChronicAcute and unspecified renal failure (20 sources)Renal failure syndrome; Translations: [Unspecified kidney failure] Onset: 547009-05-3897BbvrwoxHtbvcvnvg-smgukju, conduct, and disruptive behavior disorders (2 sources)Attention deficit hyperactivity disorder; Translations: [Attention- deficit hyperactivity disorder, unspecified type]48-55-4179RnowkuiDgtrfzz tract disease (20 sources)Biliary calculus; Translations: [Calculus of gallbladder without cholecystitis without obstruction]Onset: [id number] of urinary tract (20 sources)Kidney stone; Translations: [Calculus of kidney]Onset: 06-30-2022 EpisodicCardiac dysrhythmias (20 sources)Paroxysmal atrial fibrillation; Translations: [Atrial fibrillation] Onset: [id number] dysrhythmias (1 source)Sinus bradycardia; Translations: [Bradycardia, unspecified]08-28-2024 EpisodicChronic kidney disease (1 source)Chronic kidney disease, stage 2 (mild); Translations: [Chronic kidney disease, stage 2 (mild)]Onset: 23-97-0943OhbgihoBwlqnopp atherosclerosis and other heart disease (4 sources)Coronary arteriosclerosis; Translations: [Atherosclerotic heart disease of [place] coronary artery without angina pectoris]Onset: 09-04-2025 61-86-0323ZkjjzonMugiljrvle and other anemia (1 source)Anemia; Translations: [Anemia, unspecified]78-22-9664WfmwrudfEsuaxuau mellitus with complications (1 source)Type 2 diabetes mellitus with diabetic chronic kidney disease; Translations: [Type 2 diabetes mellitus with diabetic chronic kidney disease] Onset: 93-96-9896PiswxzqVczoqpgo mellitus without complication (20 sources)Diabetes mellitus; Translations: [Type 2 diabetes mellitus without complications]Onset: 02-24-2023 Resolved: 141329-23-7912FtbnlavGocxwleyc of lipid metabolism (20 sources)Hyperlipidemia; Translations: [Other and unspecified hyperlipidemia] Onset: [id number] hypertension (20 sources)Hypertensive disorder; Translations: [Essential (primary) hypertension]Onset: 813435-07-2775PerkkjuIfxxdmmzniopx symptoms and ill- defined conditions (20 sources)Genuine stress incontinence; Translations: [Stress incontinence (female) (male)]Onset: 880896-44-1515MwveaklVrjlxnvmozsny symptoms and ill-defined conditions (20 sources)Microscopic hematuria; Translations: [Asymptomatic microscopic hematuria]Onset: 01-98-5701AkjmmsruYmwnk valve disorders (2 sources)Nonrheumatic aortic (valve) stenosis; Translations: [Nonrheumatic aortic (valve) stenosis]Onset: 33-72-6643IkbpvgmYqqgi valve disorders (15 sources)Irregular heart nkzj86-45-3964BvwggvniPzsyexomhpmk with complications and secondary hypertension (2 sources)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; Translations: [Hypertensive chronic kidney disease with stage 1 through stage 4 chronic kidney disease, or unspecified chronic kidney disease]Onset: 02-18-2024 27-81-2585CpfozggFwagy disorders and dislocations; trauma-related (6 sources)Chondromalacia of right patella; Translations: [Chondromalacia patellae, right knee]12-69-9270ZtdgudxZmrhievrdrl deficiencies (1 source)Vitamin D deficiency, unspecified; Translations: [VITAMIN D DEFICIENCY UNSPECIFIED]Onset: 45-01-2741EzjzxxfTmhqsydgvtxepz (20 sources)Arthritis of right knee; Translations: [Unilateral primary osteoarthritis, right knee]Onset: 104786-73-4230YpydcbzDrmzy aftercare (7 sources)Drug therapy finding; Translations: [Long-term (current) use of anticoagulants]EpisodicOther aftercare (2 sources)Taking high risk medication; Translations: [Other fdc (current) drug therapy]Onset: 320995-86-2681FrslujioMcoic aftercare (2 sources)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 EHR CmteOther gastrointestinal disorders (4 sources)Bariatric surgery status; Translations: [BARIATRIC SURGERY STATUS] Onset: 83-77-8246OtnbhyksIcgzo gastrointestinal disorders (3 sources)Constipation; Translations: [Constipation, unspecified]11-13-2017 EpisodicOther hereditary and degenerative nervous system conditions (20 sources)Minimal cognitive impairment; Translations: [Mild cognitive impairment, so stated]Onset: 093241-80-7121GeyxsvhRgqta nervous system disorders (8 sources)Disturbance of attention; Translations: [Attention and concentration deficit]Onset: 498499-14-4173KwscccsUiowz nervous system disorders (5 sources)Impaired cognition; Translations: [Other symptoms and signs involving cognitive functions and awareness]62-62-7895DzqwejryHaztb nervous system disorders (3 sources)Postoperative pain ; Translations: [Other acute postprocedural pain] 86-76-4763MkdtgjvzPniytmy on above:Problem List clean-up per request of Phys. EHR CmteOther nervous system disorders (2 sources)Word finding difficulty ; Translations: [Other speech disturbances] 49-17-9604WylefevzElnyr non-traumatic joint disorders (6 sources)Pain in right knee; Translations: [Pain in joint, lower leg] 36-40-2186VhsfsvzxXgpnm non-traumatic joint disorders (3 sources)Decreased range of knee movement; Translations: [Stiffness of left knee, not elsewhere classified]92-33-4556NuermpouEmwkjpc on above:Problem List clean-up per request of Phys. EHR CmteOther nutritional; endocrine; and metabolic disorders (20 sources)Body mass index 40+ - severely obese; Translations: [Body Mass Index 40.0-44.9, adult]88-62-1089LdvozccZcnqe nutritional; endocrine; and metabolic disorders (1 source)Obesity; Translations: [Obesity, unspecified]ChronicOther nutritional; endocrine; and metabolic disorders (4 sources)Body mass index 30+ - obesity; Translations: [Body mass index (BMI) 36.0-36.9, adult]Onset: 339171-02-6103AkktulxHiqys nutritional; endocrine; and metabolic disorders (1 source)Obese class II; Translations: [Class 2 obesity]23-11-1291IypilybCvfod nutritional; endocrine; and metabolic disorders (3 sources)Body mass index (BMI) 35.0-35.9, adult; Translations: [Body mass index (BMI) 35.0-35.9, adult]Onset: 92-92-8166CzwgokpNrwlz nutritional; endocrine; and metabolic disorders (2 sources)Body mass index (BMI) 36.0-36.9, adult; Translations: [Body mass index (BMI) 36.0-36.9, adult]Onset: 10-15-0985BppjbrsHooxu nutritional; endocrine; and metabolic disorders (17 sources)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; Translations: [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 with serious comorbidity in adult]Onset: 113836-48-0730TwzghmlLjxgu nutritional; endocrine; and metabolic disorders (1 source)Severe obesity; Translations: [Morbid (severe) obesity due to excess calories]15-24-2905VucvimxIhvxe nutritional; endocrine; and metabolic disorders (1 source)Obesity caused by energy imbalance; Translations: [Class 1 obesity due to excess calories with serious comorbidity and body mass index (BMI) of 33.0 to 33.9 in adult]75-01-4353QetamixXxdhw nutritional; endocrine; and metabolic disorders (1 source)Other obesity due to excess calories; Translations: [Other obesity due to excess calories]Onset: 46-25-4704EkudwbmFvdzx nutritional; endocrine; and metabolic disorders (1 source)Body mass index (BMI) 33.0-33.9, adult; Translations: [Body mass index (BMI) 33.0-33.9, adult]Onset: 53-74-5636YrwbgunEjlpp nutritional; endocrine; and metabolic disorders (3 sources)Gilbert's syndrome; Translations: [Gilbert syndrome]71-23-5610Yxpgnfn Comment on above:Problem List clean-up per request of PhysMaite JACK CmteOther nutritional; endocrine; and metabolic disorders (1 source)History of diabetes mellitus type 2; Translations: [Personal history of other endocrine, nutritional and metabolic disease]58-42-2699QkbpgzirPbanr nutritional; endocrine; and metabolic disorders (1 source)Personal history of other endocrine, nutritional and metabolic disease; Translations: [Personal history of other endocrine, nutritional and metabolic disease]Onset: 57-75-6878ZwndxisdSfgh-; endo-; and myocarditis; cardiomyopathy (except that caused by tuberculosis or sexually transmitted disease) (20 sources)Cardiomyopathy; Translations: [Other primary cardiomyopathies]Onset: 815418-73-2147HotcpvjHbzvzrqeg heart disease (2 sources)Pulmonary hypertension, unspecified; Translations: [Pulmonary hypertension, unspecified]Onset: 99-95-9752SmcmlbwNuafaxsu codes; unclassified (20 sources)Sleep apnea; Translations: [Sleep apnea, unspecified]Onset: 942354-66-4057ChkmqppBtjycfmz codes; unclassified (4 sources)Obstructive sleep apnea syndrome; Translations: [Obstructive sleep apnea (adult) (pediatric)]79-20-7814PyjscqbDtudgnum codes; unclassified (1 source)Edema, unspecified; Translations: [EDEMA UNSPECIFIED]Onset: 02-24-2023 EpisodicResidual codes; unclassified (4 sources)Never smoked tobacco; Translations: [Other specified health status] Onset: 956061-79-4269DsldkvqbFpuslwgu codes; unclassified (13 sources)Amnesia; Translations: [Other amnesia]11-05-3338GvjmwksxCcfssdkr codes; unclassified (1 source)Other amnesia; Translations: [Other amnesia]Onset: 75-41-9972Kfusjhjm Residual codes; unclassified (5 sources)Sleep deprivation; Translations: [Sleep deprivation]08-03-2025 EpisodicScreening and history of mental health and substance abuse codes (4 sources)Patient encounter status; Translations: [Encounter for screening for depression]67-44-2208BauucnscXjplnmd on above:Problem List clean-up per request of Phys. EHR CmteSepticemia (except in labor) (15 sources)Sepsis due to Trbotwwvxtlv32-13-1672GqmeippfLuclawr disorders (20 sources)Hypothyroidism; Translations: [Unspecified acquired hypothyroidism] Onset: 363350-45-8874WzzzcboTzjkwpyuhnyj (13 sources)Asymptomatic microscopic sawlyufiq81-96-9398Quqzpzrjeknv (15 sources)Drug therapy tentyjo70-14-1814Ogvcnydxehse (1 source)GASTR-ESOPH RFLX DS ESPHGTS W/O BLD; Translations: [GASTR-ESOPH RFLX DS ESPHGTS W/O BLD]Onset: 46-09-1460Vnsbwcapadmb (11 sources)Obstructive wwaevlwjudqcfb77-42-6159Piwkeblwjvji (1 source)Obesity, class 1; Translations: [Obesity, class 1]Onset: 07-09-2025 Unclassified (2 sources)Other ventricular tachycardia; Translations: [Other ventricular tachycardia]Onset: 20-47-5777Hhzvsukxmagm (1 source)Obesity, class 2; Translations: [Obesity, class 2]Onset: 10-13-2024 Unclassified (1 source)Genetic susceptibility to obesity; Translations: [Genetic susceptibility to obesity]Onset: 27-40-3741Fbgwglmptfwd (1 source)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; Translations: [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]Onset: 47-01-3240Ftehzcvusieq (1 source)TCM DEC -3 TBHOnset: 09-15-7697Gpcpsdwjocad (3 sources)R41.3 - Other amnesiaUnclassified (1 source)Ventricular tachycardia, unspecified; Translations: [Ventricular tachycardia, unspecified]Onset: 67-01-7335Nnifxvk tract infections (16 sources)Urinary tract infectious disease; Translations: [Urinary tract infection, site not specified]Onset: 212556-91-5085Begoilvw Past or Other Problems Problem ClassificationProblemDateDocumented DateEpisodic/ChronicDeficiency and other anemia (2 sources)Anemia, unspecified; Translations: [Anemia, unspecified]Onset: 52-00-2607SgmgwszwXqhsrzrcrupqr and screening for infectious disease (2 sources)Needs influenza immunization; Translations: [Encounter for immunization]Onset: 379953-07-3556RwlmraodUoza disorders (20 sources)Mood disordersOnset: 10-13-2024 Resolved: Other aftercare (4 sources)Encounter for surgical aftercare following surgery on the circulatory system; Translations: [ENC SURG AFTRCARE FLW SURG CIRC SYS]Onset: 05-31-2022 EpisodicOther and unspecified benign neoplasm (20 sources)Polyp of transverse colon; Translations: [Polyp of colon]Onset: 623228-70-2721MmlpzxajCpydd circulatory disease (20 sources)Carotid bruit; Translations: [Other symptoms involving cardiovascular system]Onset: 823899-74-6231DpgiscppTkdga circulatory disease (7 sources)H/O: hypertension; Translations: [Personal history of other diseases of circulatory system] Resolved: 06-30-6888TmqfifxtZzmww diseases of kidney and ureters (20 sources)Hydronephrosis with renal and ureteral calculous obstruction; Translations: [Calculus of ureter]Onset: 147413-04-8111OvsqniloArbmo nervous system disorders (3 sources)Other symptoms and signs involving cognitive functions and awareness; Translations: [Other symptomsand signs involving cognitive functions and awareness]Onset: 58-60-6627LonlzdugYitod nutritional; endocrine; and metabolic disorders (20 sources)Morbid obesity; Translations: [Morbid obesity]Onset: 03-01-2016 Resolved: 457562-92-6981ExjrdpfZfvmp nutritional; endocrine; and metabolic disorders (7 sources)H/O: diabetes mellitus; Translations: [Personal history of other endocrine, metabolic, and immunitydisorders] Resolved: 75-09-4341ItghhvabPzznr screening for suspected conditions (not mental disorders or infectious disease) (20 sources)CT of abdomen abnormal; Translations: [Encounter for screening mammogram for malignant neoplasm of breast]Onset: 710531-20-1342Vkkklinw Phlebitis; thrombophlebitis and thromboembolism (10 sources)Phlebitis and thrombophlebitis of superficial vessels of right lower extremity; Translations: [Phlebitis and thrombophlebitis of superficial vessels of left lower extremity]Onset: 69-46-8258GoezloroHxndpsxf codes; unclassified (1 source)Family history of malignant neoplasm of digestive organs; Translations: [FAM HX MALIG NEOPLASM DIGESTIV ORGN]Onset: 69-64-1691Pvrijjmk Residual codes; unclassified (2 sources)Other specified health status; Translations: [Other specified health status]Onset: 82-15-0208KzgkhywoZcuqfhtytnaz (1 source)Imaging result normal; Translations: [Normal coronary angiogram] Unclassified (5 sources)Never smoked tobacco; Translations: [Never a smoker]Unclassified (20 sources)Onset: 03-06-2024 Resolved: 182162-96-9967Vojxtnkgrnmf (1 source)Ventricular tachycardia, unspecified; Translations: [Ventricular tachycardia, unspecified]Onset: 87-54-0192Qjwqwurumttx (1 source)Other ventricular tachycardia; Translations: [Other ventricular tachycardia]Onset: 28-82-0901Ibnejohm veins of lower extremity (5 sources)Varicose veins of bilateral lower extremities with pain; Translations: [VARICOSE VNS TANMAY LOW EXTREMW/PAIN]Onset: 77-58-7328Bdocrrfx Results Test NameValueInterpretationReference RangeFacilityOffice Visiton 09-04-2025 Follow-up [id number] AlfredoMiky 1950 F Date Provider Department Center 09/04/2025 46054-TLVRHDLUL SMITH BRAD Dougherty Family History Problem Relation Age of Onset Diabetes Mother Heart attack Father Coronary artery disease Brother Family Status - Relation Status Age at Mother Father Sister Brother Level of Service:33943 [place] OFFICE/OUTPATIENT ESTABLISHED MOD MDM 30 MIN Reason for Visit and Comments: Follow-up [370141] - 6 month follow up with labs Hyperlipidemia [182] Cardiomyopathy [104] - Non-ischemic Atrial Fibrillation [80] PSVT [Other]NormalWilson HealthUrine Cytology ([facility])on 81-68-6533Rncmm CytologyDiagnosis InfoInvalid Interpretation [facility] HospitalComment on above:Result Comment: A:Urine,Clean Catch:Voided Interpretation - Adequate cellularity for evaluation. CPT 55923 MicroScopic Description - Adequacy - Gross Description Site ID:A color Dark Yellow fixative Alcohol Specimen designated Clean Catch received in alcohol preservative and labeled with the patient?s name, consists of 60ml cloudy dark yellow fluid. Electronically signed by : on: 08/28/2025 11:02:46Performed By: #### [id number] #### Yuan [facility] [address], [place] [address]Ndmkshnwcl Visit Summaryon 43-24-7865Yhuqpvppwl Visit Summary Ambulatory Visit Summary TRAM FUENTESN [...] HAYDEN, Yehuda Haddad Where: [facility] [address] [address]- Medications What How Much When Instructions Unchanged [...] oral tablet) 1 Tablets Every day Allergies [place] (Unknown) Dogs (Unknown) Milk Products (Unknown) Mold [...] signed up for this yet, please contact [employer]-mode at [phone] to get signed up today. Language Information Language assistance services are available as needed. NormalBethesda North HospitalUrine Cytology ([facility])on 05-98-8728BG Method of ExtractionVoidedNoParkview Health Bryan HospitalComment on above:Performed By: #### [id number] #### [facility] [address], [place] [address]NO Number of Wewh9Cmhkthj Interpretation CodeBethesda North HospitalComment on above:Performed By: #### [id number] #### [facility] [address], [place] [address]RM SpecimenClean CatchNoParkview Health Bryan HospitalComment on above:Performed By: #### [id number] #### Yuan [facility] [address], [place] [address]ML Type of ServiceTechnical OnlyLutheran HospitalComment on above:Performed By: #### [id number] #### Yuan [facility] [address], [place] [address]Ozsypcq Office/Clinic Noteon 85-94-4376Pxfiawb Office/Clinic NoteUrology Office/Clinic Note Chief Complaint Pt [...] today -Order CT Urogram. Order faxed to [facility]. -Will consult w/ PRW regarding cystoscopy [...] Urnls Dip Stick Auto w/o Microscopy POC 32649 Follow-up With When Contact Information MO HAYDEN, Yehuda Haddad, [address] [place] [address]- Additional Instructions: F/u as planned 10/19/25, or sooner if needed Patient Education Hematuria, Adult Problem List/Past Medical History Ongoing Abnormal abdominal CT scan Anticoagulated BMI 40.0-44.9, adult BMI 45.0-49.9, adult CAD (coronary artery disease) Cholelithiasis Diabetes Enterobacter sepsis Gross hematuria Hyperlipidemia Hypertens (more content not included)...Lutheran HospitalComment on above:Result Comment: Electronically Signed By: Myrna CARDONA, Cassie\.br\Date and Time Signed: 08/25/25 11:12 EDTCOMPREHENSIVE METABOLIC PANELon 07-09-2025 Albumin [Mass/Vol]3.9 g/dLNormal3.2-5.3PBarnesville Hospital Ambulatory PPGComment on above:Performed By: #### CMP #### [facility] ([facility]) [address] [place] [address] VIRALP [Catalytic activity/Vol]94 U/QDanfjk08-059JlnPfnctb Hospital Ambulatory PPGComment on above:Performed By: #### CMP #### [facility] ([facility]) [address] [place] [address] VIRALT [Catalytic activity/Vol]8 U/LNormal<=31PBarnesville Hospital Ambulatory PPGComment on above:Performed By: #### CMP #### [facility] ([facility]) [address] [place] [address] VIRAnion gap [Moles/Vol]6 mmol/LNormal5-15[facility] Ambulatory PPGComment on above:Performed By: #### CMP #### [facility] ([facility]) [address] [place] [address] VIRAST [Catalytic activity/Vol]14 U/LNormal<=41[facility] Ambulatory PPGComment on above:Performed By: #### CMP #### [facility] ([facility]) [address] [place] [address] VIRBilirubin [Mass/Vol]0.4 mg/dLNormal0.3-1.2PBarnesville Hospital Ambulatory PPGComment on above:Performed By: #### CMP #### [facility] ([facility]) [address] [place] [address] VIRCalcium [Mass/Vol]9.8 mg/dLNormal8.5-10.5PBarnesville Hospital Ambulatory PPGComment on above:Performed By: #### CMP #### [facility] ([facility]) [address] [place] [address] VIRChloride [Moles/Vol]105 mmol/RZgzcyo62-607FacSqxkqz Hospital Ambulatory PPGComment on above:Performed By: #### CMP #### [facility] ([facility]) [address] [place] [address] VIRCO2 [Moles/Vol]31 mmol/FEmdgnp25-62KwuAzddox Hospital Ambulatory PPGComment on above:Performed By: #### CMP #### [facility] ([facility]) [address] [place] [address] VIRCreatinine [Mass/Vol]0.77 mg/dLNormal0.40-1.00[facility] Ambulatory PPGComment on above:Result Comment: METHOD TRACEABLE TO IDMS STANDARDPerformed By: #### CMP #### [facility] ([facility]) [address] [place] [address] VIRGFR/1.73 sq M.predicted among non-blacks MDRD (S/P/Bld) [Vol rate/Area]80 mL/min/{1.73_m2}Normal>=60[facility] Ambulatory PPGComment on above:Result Comment: Reported eGFR is based on the CKD-EPI 2020 equation that does not use a race coefficient.Performed By: #### CMP #### [facility] ([facility]) [address] [place] [address] VIRGlucose [Mass/Vol]93 mg/kKKcrceh70-89SmbOusftl Hospital Ambulatory PPGComment on above:Performed By: #### CMP #### [facility] ([facility]) [address] [place] [address] VIRPotassium [Moles/Vol]4.6 mmol/LNormal3.5-5.0[facility] Ambulatory PPGComment on above:Performed By: #### CMP #### [facility] ([facility]) [address] [place] [address] VIRProtein [Mass/Vol]6.9 g/dLNormal6.0-8.0[facility] Ambulatory PPGComment on above:Performed By: #### CMP #### [facility] ([facility]) [address] [place] [address] VIRSodium [Moles/Vol]142 mmol/MXoahim924-038DhcHrqwty Hospital Ambulatory PPGComment on above:Performed By: #### CMP #### [facility] ([facility]) [address] [place] [address] VIRUrea nitrogen [Mass/Vol]11 mg/dLNormal5-27[facility] Ambulatory PPGComment on above:Performed By: #### CMP #### [facility] ([facility]) [address] [place] [address] VIRHEMOGLOBIN A1Con 49-14-9536Rhhmqfu [Mass/Vol]120 mg/dLNormal [facility] Ambulatory PPGComment on above:Performed By: #### HA1C #### [facility] ([facility]) [address] [place] [address] SAAOzA8s (Bld) [Mass fraction]5.8 %High4.4-5.6[facility] Ambulatory PPGComment on above:Result Comment: ADA Guidelines Result HgbA1c Normal : less than 5.7 % Prediabetes : 5.7 % to 6.4 % Diabetes : > 6.4 % Use with caution in patients with abnormal hemoglobin variants as the half-life of red blood cells and in vivo glycation rates are affected.Performed By: #### HA1C #### [facility] ([facility]) [address] [place] [address] VIRLIPID PROFILEon 96-39-4261Hffdsstqjmo [Mass/Vol]150 mg/dL Rcstvv735-916EbuRcgxin Hospital Ambulatory PPGComment on above:Performed By: #### LIPR #### [facility] ([facility]) [address] [place] [address] VIRCholesterol in HDL [Mass/Vol]59 mg/dLNormal>39[facility] Ambulatory PPGComment on above:Result Comment: HDL <40 mg/dL - High Risk HDL > or = 40mg/dL- Desirable HDL >60 mg/dL - Negative RiskPerformed By: #### LIPR #### [facility] ([facility]) [address] [place] [address] VIRCholesterol in LDL [Mass/Vol]79 mg/dLNormal<130[facility] Ambulatory PPGComment on above:Result Comment: LDL <100 mg/dL - Desirable LDL >160 mg/dL - High RiskPerformed By: #### LIPR #### [facility] ([facility]) [address] [place] [address] VIRCHOLESTEROL:HDL2.3Eafjhc6.0-5.0[facility] Ambulatory PPGComment on above:Performed By: #### LIPR #### [facility] ([facility]) [address] [place] [address] VIRTriglyceride [Mass/Vol]59 mg/cYNyuztm81-152KmlFwzoen Hospital Ambulatory PPGComment on above:Performed By: #### LIPR #### [facility] ([facility]) [address] [place] [address] VIRVERY LOW AAIYDGAKILZ81 mg/dLNormal0-30[facility] Ambulatory PPGComment on above:Performed By: #### LIPR #### [facility] ([facility]) [address] [place] [address] VIRTHYROID PROFILE INCLUDES TSH FT4on 53-06-0581Ocsm T4 [Mass/Vol]1.17 ng/dLNormal0.61-1.60[facility] Ambulatory PPGComment on above:Performed By: #### THYR #### [facility] ([facility]) [address] [place] [address] VIRTSH0.50 uIU/mLNormal0.49-4.67[facility] Ambulatory PPGComment on above:Performed By: #### THYR #### [facility] ([facility]) [address] [place] [address] VIRAmbulatory Visit Summaryon 84-11-0833Tjknaszleq Visit SummaryAmbulatory Visit Summary MIKY FUENTES :1950 [...] oral tablet) 1 Tablets Every day Allergies [place] (Unknown) Dogs (Unknown) Milk Products (Unknown) Mold [...] these instructions at home: Medicines ??? Take fxzi-veh-irtpaui and prescription medicines only as told by [...] keep your pee pale yellow. ? Take vrnb-srq-iqyxasj or prescription medicines. ? Eat foods that [...] (dressing). If soa (more content not included)...Normal [facility] Office/Clinic Noteon 23-56-8479Yocmmrj Office/Clinic NoteUrology Office/Clinic Note Chief Complaint follow up with KUB, metabolic work up HPI Staff 74 yr old female here today for metabolic w/u w/KUB. KUB done 02/27/25 at [facility]. 24 hour urine dome 03/03/25 Previous [...] E&M of Est. Patient Moderate 30-39 Min 61795 Medication list documented in medical record 1159F [...] Urnls Dip Stick Auto w/o Microscopy POC 69582 XR Abdomen 1 View 2. Gross hematuria (R31.0: Gross hematuria) No recent gross hematuria. No b.t. seen during stone procedure a few mos ago. No masses on CT wo 2022 or WILLARD 2023. Does have microhematuria on UA today. No sx UTI so no indication to send for C&S. Ordered: E&M of Est. Patient Moderate 30-39 Min 04694 3. Urge incontinence (N39.41: Urge incontinence) Rare. BBSQ 7 very good control. Not bothersome enough to warrant tx per pt. Continue to monitor. Ordered: E&M of Est. Patient Moderate 30-39 Min 34129 Orders: allopurinol, 300 mg = 1 tab(s), Oral, Daily, # 90 cap(s), Refills(s) 3, Pharmacy: [facility] #72, 165, cm, 04/07/25 11:28:00 EDT, Height/Length Dosing, 90.9, kg, 04/07/25 11:28:00 EDT, Weight Dosing doxycycline, 100 mg = 1 cap(s), Oral, Daily, Take 1 pill the day before the procedure and 1 pill after the procedure, # 2 cap(s), Refills(s) 0, Pharmacy: [facility] #72, 165, cm, 07/15/2415:14:00 EDT, Height/Length Dosing, 97.5, kg, 07/15/24 15:14:00... potassium bicarbonate, 25 mEq = 1 tab(s), Oral, BID, # 60 tab(s), Refills(s) 11, Pharmacy: [facility] #72, 165, cm, 04/07/25 11:28:00 EDT, Height/Length Dosing, 90.9, kg, 04/07/25 11:28:00 EDT, Weight Dosing Follow-up With When Contact Information MO HAYDEN, PAWEL Dee In 6 months [facility] [place] [phone]- Additional Instructions: Patient Education Percutaneous Nephrolithotomy, Care [...] Daily Tylenol 8 H (more content not included)...[facility] Comment on above:Result Comment: Electronically Signed By: DORA ALCAZAR PA-C\.br\Date and Time Signed: 04/07/2512:45 EDTMR BRAIN WO CONTon 80-12-4807BK BRAIN WO CONTMR BRAIN WO CONT MR [...] Finalized by Isaias Coelho on 03/19/2025 10:42 AMNormalProTrihealth Mccullough-Hyde Memorial Hospitalca [facility] HospitalOffice Visiton 20-36-7564Qysfzr-up [id number] Miky Fuentes 1950 F Date Provider Department Center 02/03/2025 LEONOR GARZA CARD [facility] Family History Problem Relation Age of Onset Diabetes Mother Heart attack Father Coronary artery disease Brother Family Status - Relation Status Age at Mother Father Sister Brother Level of Service:89587 [place] OFFICE/OUTPATIENT NEW MODERATE MDM 45 MINUTESNormal Wilson HealthCBC AND AUTO DIFFon 35-88-9193LMDJRQAW BASOPHIL0.1 X10E9/LNormal0.0-0.2ProMedica Wood County HospitalComment on above: Performed By: #### ARSENIO CMP, 2132-06 #### [facility] ([id number]) [address], [address] [place], [place] [address]ECUQODJY NEUTROPHIL2.8 X10E9/LNormal1.5-6.6ProMedica Wood County HospitalComment on above:Performed By: #### CBCA CMP, 2132-06 #### [facility] ([id number]) [address], [address] [place], [place] [address]Mukkwtrwv/100 WBC (Bld)2.1 %NormalCleveland Clinic Avon Hospital Comment on above:Performed By: #### CBCA, CMP, 2132-06 #### [facility] ([id number]) [address], [address] [place], [place] [address]Qkjgsflzipn (Bld) [#/Vol]0.1 10*3/uLNormal0.0-0.4ProTrihealth Mccullough-Hyde Memorial Hospitalca Lynn HospitalComment on above:Performed By: #### CBCA, CMP, 2132-06 #### [facility] ([id number]) [address], [address] [place], [place] [address]Ohyuqgnvaay/100 WBC (Bld)1.7 %[facility] Comment on above:Performed By: #### CBCA, CMP, 2132-06 #### [facility] ([id number]) [address], [address] [place], [place] [address]Jhukcnlwgzj distribution width (RBC) [Ratio]20.9 %High11.5-15.0 ProMedica Lynn HospitalComment on above:Performed By: #### CBCA, CMP, 2132-06 #### [facility] ([id number]) [address], [address] [place], [place] [address]Yxwzzraozh (Bld) [Volume fraction]30.5 %Fwc48-06QtpGlhfqw Lynn HospitalComment on above:Performed By: #### CBCA, CMP, 2132-06 #### [facility] ([id number]) [address], [address] [place], [place] [address]Bbqbhazssv (Bld) [Mass/Vol]9.2 g/dLLow11.7-15.5ProMedica Lynn HospitalComment on above:Performed By: #### CBCA, CMP, 2132-06 #### [facility] ([id number]) [address], [address] [place], [place] [address]Hqfhsqfuuaq (Bld) [#/Vol]1.4 10*3/uLNormal1.0-3.5POhio State East HospitalComment on above:Performed By: #### CBCHenry CMP, 2132-06 #### [facility] ([id number]) [address], [address] [place], [place] [address]Pfoyvnotcht/100 WBC (Bld)29.9 %NormalCleveland Clinic Avon Hospital Comment on above:Performed By: #### CBCHenry, CMP, 2132-06 #### [facility] ([id number]) [address], [address] [place], [place] [address]QSI (RBC) [Entitic mass]20.0 tiDkh74-05RijVdnxkxCleveland Clinic Avon Hospital Comment on above:Performed By: #### CBCHenry CMP, 2132-06 #### [facility] ([id number]) [address], [address] [place], [place] [address]QFDF (RBC) [Mass/Vol]30.2 g/oYRka02-91RxsAjkfshCleveland Clinic Avon Hospital Comment on above:Performed By: #### CBCHenry CMP, 2132-06 #### [facility] ([id number]) [address], [address] [place], [place] [address]VBM (RBC) [Entitic vol]66 rEEmi91-137RfjTkftjkCleveland Clinic Avon Hospital Comment on above:Performed By: #### CBCHenry, CMP, 2132-06 #### [facility] ([id number]) [address], [address] [place], [place] [address]Ikcbuwcdj (Bld) [#/Vol]0.3 10*3/uLNormal0-0.9C[facility] Clinic Avon HospitalComment on above:Performed By: #### CBCA, CMP, 2132-06 #### [facility] ([id number]) [address], [address] [place], [place] [address]Wmeuecuoz/100 WBC (Bld)7.3 %NormalCleveland Clinic Avon Hospital Comment on above:Performed By: #### CBCHenry CMP, 2132-06 #### [facility] ([id number]) [address], [address] [place], [place] [address]Ufgrwqfseyi/100 WBC (Bld)59.0 %[facility] Comment on above:Performed By: #### CBCA CMP, 2132-06 #### [facility] ([id number]) [address], [address] [place], [place] [address]Ravzgkdi mean volume (Bld) [Entitic vol]8.4 fLNormal7-12 ProMProMedica Bay Park HospitalComment on above:Performed By: #### CBCHenry CMP, 2132-06 #### [facility] ([id number]) [address], [address] [place], [place] [address]Uxyulorzo (Bld) [#/Vol]259 10*3/fQAeaecg546-766LnuEclfwr [place] HospitalComment on above:Performed By: #### ARSENIO CMP, 2132-06 #### [facility] ([id number]) [address], [address] [place], [place] [address]OAR COUNT4.60 X10E12/LNormal3.80-5.20[facility] Comment on above:Performed By: #### CBCA, CMP, 2132-06 #### [facility] ([id number]) [address], [address] [place], [place] [address]JUX (Bld) [#/Vol]4.8 10*3/uLNormal4.0-11.0ProTogus Va Medical CenterComment on above:Performed By: #### CBCA, CMP, 2132-06 #### [facility] ([id number]) [address], [address] [place], [place] [address]FCN auto differentialon 24-25-9041Xcjrspmbm (Bld) [#/Vol]0.1 10*3/[facility] Cancer CenterBasophils/100 WBC (Bld)2.1 %[facility] GlenbeighEosinophils (Bld) [#/Vol]0.1 10*3/[facility] Cancer CenterEosinophils/100 WBC (Bld)1.7 %[facility] GlenbeighErythrocyte distribution width (RBC) [Ratio]20.9 %High11.5 - 15.0 %[facility] GlenbeighHematocrit (Bld) [Volume fraction]30.5 %Low35 - 47 %[facility] GlenbeighHemoglobin (Bld) [Mass/Vol]9.2 g/dLLow11.7 - 15.5 g/dLACMC Healthcare System GlenbeighInterpretation and review of laboratory resultsAbnormLima Memorial HospitalLymphocytes (Bld) [#/Vol]1.4 10*3/[facility] Cancer CenterLymphocytes/100 WBC (Bld)29.9 %[facility] GlenbeighMCH (RBC) [Entitic mass]20 pgLow27 - 34 [facility] Medical CenterMCHC (RBC) [Mass/Vol]30.2 g/dLLow32 - 36 g/dLACMC Healthcare System GlenbeighMCV (RBC) [Entitic vol]66 fLLow80 - 100 [facility] CenterMonocytes (Bld) [#/Vol] 0.3 10*3/[facility] Cancer CenterMonocytes/100 WBC (Bld)7.3 %[facility] GlenbeighNeutrophils (Bld) [#/Vol]2.8 10*3/[facility] Cancer CenterNeutrophils/100 WBC (Bld)59 %[facility] GlenbeighPlatelet mean volume (Bld) [Entitic vol]8.4 fL7 - 12 [facility] Health CenterPlatelets (Bld) [#/Vol]259 10*3/[facility] Cancer CenterRBC (Bld) [#/Vol]4.6 10*6/[facility] Cancer CenterWBC corrected for nucl RBC Auto (Bld) [#/Vol]4.8[facility] COMPREHENSIVE METABOLIC PANELon 47-37-8688Bacvcup [Mass/Vol]4.1 g/dLNormal 3.2-5.3ProMedTriHealth McCullough-Hyde Memorial Hospital HospitalComment on above:Performed By: #### JOE CESAR, 2132-06 #### [facility] ([id number]) [address], [address] [place], [place] [address]FDL [Catalytic activity/Vol]100 U/SRgwmun71-808QhyWpkaus Morris HospitalComment on above:Performed By: #### JOE CESAR, 2132-06 #### [facility] ([id number]) [address], [address] [place], [place] [address]FTL [Catalytic activity/Vol]10 U/LNormal0-31ProMedTriHealth McCullough-Hyde Memorial Hospital HospitalComment on above:Performed By: #### JOE CESAR, 2132-06 #### [facility] ([id number]) [address], [address] [place], [place] [address]Khkro gap [Moles/Vol]9 mmol/LNormal5-15ProPromedica [facility] Hospital Comment on above:Performed By: #### JOE CESAR, 2132-06 #### [facility] ([id number]) [address], [address] [place], [place] [address]INR [Catalytic activity/Vol]15 U/LNormal0-41ProMedica Lynn HospitalComment on above:Performed By: #### JOE CESAR, 2132-06 #### [facility] ([id number]) [address], [address] [place], [place] [address]Aszqyebjx [Mass/Vol]0.5 mg/dLNormal0.3-1.2ProMedvaughan regional medical center Morris HospitalComment on above:Performed By: #### JOE CESAR, 2132-06 #### [facility] ([id number]) [address], [address] [place], [place] [address]Wnzahlb [Mass/Vol]10.5 mg/dLNormal8.5-10.5POhio State East HospitalComment on above:Performed By: #### JOE CESAR, 2132-06 #### [facility] ([id number]) [address], [address] [place], [place] [address]Fcjqstqa [Moles/Vol]104 mmol/KCcswrp73-215QjeCbxilg [place] HospitalComment on above:Performed By: #### JOE CESAR, 2132-06 #### [facility] ([id number]) [address], [address] [place], [place] [address]TO9 [Moles/Vol]27 mmol/ITdlgqp61-01ZsrNjibmkOhio State East Hospital Comment on above:Performed By: #### JOE CESAR, 2132-06 #### [facility] ([id number]) [address], [address] [place], [place] [address]Nlkhjfonwd [Mass/Vol]0.86 mg/dLNormal0.40-1.00ProTogus Va Medical CenterComment on above:Result Comment: METHOD TRACEABLE TO IDMS STANDARD Performed By: #### JOE CESAR, 2132-06 #### [facility] ([id number]) [address], [address] [place], [place] [address]RCI/1.73 sq M.predicted among non-blacks MDRD (S/P/Bld) [Vol rate/Area]71 mL/min/{1.73_m2}Normal>59ProTogus Va Medical CenterComment on above: Result Comment: Reported eGFR is based on the CKD-EPI 1 equation that does not use a race coefficient.Performed By: #### JOE CESAR, 2132-06 #### [facility] ([id number]) [address], [address] [place], [place] [address]Nuclbel [Mass/Vol]104 mg/cYUjri70-07VvpXlvttdCleveland Clinic Avon Hospital Comment on above:Performed By: #### JOE CESAR, 2132-06 #### [facility] ([id number]) [address] [place], [place] [address]Nlnibmwpi [Moles/Vol]5.1 mmol/LHigh3.5-5.0ProTogus Va Medical CenterComment on above:Performed By: #### JOE CESAR, 2132-06 #### [facility] ([id number]) [address], [address] [place], [place] [address]Hkopcur [Mass/Vol]7.2 g/dLNormal6.0-8.0ProTogus Va Medical Center Comment on above:Performed By: #### JOE CESAR, 2132-06 #### [facility] ([id number]) [address], [address] [place], [place] [address]Spmini [Moles/Vol]140 mmol/FZczuve662-329UpyNxczbf [place] HospitalComment on above:Performed By: #### JOE CESAR, 2132-06 #### [facility] ([id number]) [address], [address] [place], [place] [address]Onid nitrogen [Mass/Vol]19 mg/dLNormal5-27ProTogus Va Medical CenterComment on above:Performed By: #### JOE CESAR, 2132-06 #### [facility] ([id number]) [address], [address] [place], [place] [address]Hqdtnlmtg (Vitamin B12) [Mass/Vol]on 76-34-4200AnfSzeqqw Health SystemComprehensive metabolic panelon 67-31-4640Xkscbbj [Mass/Vol]4.1 g/dL3.2 - 5.3 g/dLProMedica Health SystemALP [Catalytic activity/Vol]100 U/L39 - 130 U/L ProMedica Health SystemALT No additional P-5'-P [Catalytic activity/Vol]10 U/L0 - 31 U/LProMedica Health SystemAnion gap [Moles/Vol]9 mmol/L5 - 15 mmol/L ProMedica Health SystemAST [Catalytic activity/Vol]15 U/L0 - 41 U/[facility] ToledoBilirubin [Mass/Vol]0.5 mg/dL0.3 - 1.2 mg/dLAC[facility] Healthcare [facility] Glen[facility]igh Calcium [Mass/Vol]10.5 mg/dL8.5 - 10.5 mg/dLACMC Healthcare System GlenbeighChloride [Moles/Vol]104 mmol/L98 - 109 mmol/[facility] SystemCO2 [Moles/Vol]27 mmol/L22 - 32 mmol/[facility] SystemCreatinine [Mass/Vol]0.86 mg/dL0.40 - 1.00 mg/dLACMC Healthcare System GlenbeighComment on above:METHOD TRACEABLE TO [facility] STANDARDeGFR (CKD-EPI)non-race - [facility] Children's HospitalComment on above: Reported eGFR is based on the CKD-EPI 2020 equation that does not use a race coefficient. Glucose [Mass/Vol]104 mg/iRBrwh79 - 99 mg/dLACMC Healthcare System Glenbeigh Interpretation and review of laboratory resultsAbnormalACMC Healthcare System Glen[facility]igh Potassium [Moles/Vol]5.1 mmol/LHigh3.5 - 5.0 mmol/[facility] Protein [Mass/Vol]7.2 g/dL6.0 - 8.0 g/dLNovant Health Forsyth Medical Centerodium [Moles/Vol]140 mmol/L134 - 146 mmol/[facility] SystemUrea nitrogen [Mass/Vol]19 mg/dL5 - 27 mg/dLEncompass Health Rehabilitation Hospital of HarmarvillePOCT urinalysis dipstick onlyon 05-00-3105Crskoehktw (U)cloudTuscarawas HospitalExternal Poct Urine BilirubinModerateACMC Healthcare System GlenbeighExternal Poct Urine BloodLarSouthwest General Health CenterExternal Poct Urine ColorredACMC Healthcare System GlenbeighExternal Poct Urine GlucoseNegativeACMC Healthcare System GlenbeighExternal Poct Urine KetonesTracePGreene Memorial HospitalExternal Poct Urine Leukocyte EsteraseLarSouthwest General Health CenterExternal Poct Urine NitriteNegativeACMC Healthcare System GlenbeighExternal Poct Urine Ph5.5PGreene Memorial HospitalExternal Poct Urine Protein3+[facility] System GlenbeighComment on above:300mgExternal Poct Urine Specific Gravity1.025AC[facility] System GlenbeighExternal Poct Urine Urobilinogen1.0 [facility] Hospital of HarmarvilleURINE CULTUREon 25-85-1115Lzgqirfi identified Cx Nom (U)CULTURE RESULTS <10,000 ORGANISMS/ML NORMAL URO GENITAL FLORANormalCleveland Clinic [facility] Comment on above:Performed By: #### 630-4 #### [facility] ([id number]) [address], [address] [place], [place] [address]MULDLPQ B12on 44-96-0119Mktqepire (Vitamin B12) [Mass/Vol]658 pg/jVIyrmbq662-507MomJizoea Wood County HospitalComment on above:Performed By: #### CBCA, [facility], 2132-06 #### [facility] ([id number]) [address] [place], [place] [address]Awlvqys B12on 95-35-9762Yawbwhbkx (Vitamin B12) [Mass/Vol]658 pg/mL180 - 914 pg/mLACMC Healthcare System Glenbeigh36on 03-65-088596Llgduioln CTA coronaries result from 11/27/2024: MD Maite Jacobs MA Inform patient that coronary CT angiogram showed mild to moderate coronary artery disease. No need for intervention. However it showed that her heart function is weak with ejection fraction of 37% which was not seen on her echo. Please repeat 2D echo with [facility] but please let her come to [facility] to have it done. Also arrange for her to be seen by Dr. Jones as soon as possible. The please add Farxiga 10 mg daily and Aldactone 25 mg daily to her current medical regimen and check BMP in 1 week. Spoke with patient and she agrees to have echo at [facility]. I told her I would send the 2 RX's to her pharmacy and call them to see if they could take free Farxiga voucher over the phone to save her a trip to the office. She will have labs 1 week after starting meds. BMP fax[facility] to [facility]. Follow up made with Dr. Jones for 02/03/2025. I advised patient that we would call her with result and that she didn't have to wait until 02/03 for results. She verbalized understanding.Normal Wilson HealthCREATININE, SERUMon 39-44-3327Cbhnmcsxlt [Mass/Vol]0.88 mg/dLNormal0.60-1.20UnSouthern Ohio Medical CenterComment on above:Performed By: #### [id number] #### [facility] ([place]) [address] [place], [place] [address]YCBLZSHHAT FILTRATION RATE ML/MIN/1.73 SQ M.ACHIOMWZF99.9 mL/min/1.73m*2Normal>60.0UnSouthern Ohio Medical CenterComment on above: Result Comment: The [facility]???s estimated glomerular filtration rate (eGFR) will no [...] affect anyone group of individuals.Performed By: #### [id number] #### [facility] ([facility]) [address] [place], [place] [address]NCA HEART CORONARY W IV CONTRAST W OR WO FFRCTon 20-63-3128XEF HEART CORONARY W IV CONTRAST W OR [...] signed: Adriel Sher MD. Not VldtdInvalid Interpretation CodeUnSouthern Ohio Medical CenterLabon [id number] Miky Fuentes 1950 F Date Provider Department Center 11/27/2024 2245-[facility] OPD LAB RESOURCE [facility] OPD SC Medical C No family history on fileNormalUniversKettering Health TroyOffice Visiton 36-06-8238Nxzdrx-up [id number] Miky Fuentes 1950 F Date Provider Department Center 10/17/2024 [address]94[address]-JUURNHLUL SMITH [facility] No family history on file Level of Service:[address] [place] OFFICE/OUTPATIENT NEW MODERATE MDM 45 MINUTESNormal Wilson HealthNo Panel Informationon 03-35-6481MkykqsqVIC [place] 09/02/2024 2:22 PM L Inj/Asp: R [...] discussed. Consent was given by the patient. WakeMed Cary HospitalXR Knee - right 1 or 2 Viewson 50-36-8525Whjztmm Result: AP and Lateral weight bearing xray of right knee: Mild effusion, soft tissue unremarkable. Notable varus deformity right knee with stable appearing left knee prosthesis Pt has advanced arthritis bone on bone articulation medial joint line and patella femoral joint No acute fracture or dislocation Impression: advanced knee arthritis medial joint line with bone on bone articulation and patella femoral jointWakeMed Cary HospitalRadiology Study observation (narrative)[facility]osho HospitalPREHENSIVE METABOLIC PANELon 29-91-3894Cckedzr [Mass/Vol]3.9 g/dLNormal3.2-5.3POhio State East Hospital Comment on above:Performed By: #### LELE, 72667-1, CMP #### [facility] ([id number]) [address], [address] [place], [place] [address]HXN [Catalytic activity/Vol]114 U/CRmcfzu64-755ChsLhectt [place] HospitalComment on above:Performed By: #### LELE, 70199-7, CMP #### [facility] ([id number]) [address], [address] [place], [place] [address]VBE [Catalytic activity/Vol]15 U/LNormal0-31POhio State East HospitalComment on above:Performed By: #### ANTOINER, 35353-9, CMP #### [facility] ([id number]) [address], [address] [place], [place] [address]Komrb gap [Moles/Vol]8 mmol/LNormal5-15[facility] Comment on above:Performed By: #### ANTOINER, 98974-6, CMP #### [facility] ([id number]) [address], [address] [place], [place] [address]CAE [Catalytic activity/Vol]20 U/LNormal0-41ProTrihealth Mccullough-Hyde Memorial Hospitalca Morris HospitalComment on above:Performed By: #### LELE, 68407-2, CMP #### [facility] ([id number]) [address], [address] [place], [place] [address]Sakyoaurv [Mass/Vol]0.5 mg/dLNormal0.3-1.2ProMedTriHealth McCullough-Hyde Memorial Hospital HospitalComment on above:Performed By: #### LELE, 39509-8, CMP #### [facility] ([id number]) [address], [address] [place], [place] [address]Nnduyxh [Mass/Vol]10.4 mg/dLNormal8.5-10.5PKettering Health Main Campus HospitalComment on above:Performed By: #### LELE, 99628-1, CMP #### [facility] ([id number]) [address], [address] [place], [place] [address]Fcyvguan [Moles/Vol]103 mmol/QJaoace11-315FzyXmciqj [place] HospitalComment on above:Performed By: #### LELE, 87387-0, CMP #### [facility] ([id number]) [address] [place], [place] [address]DY7 [Moles/Vol]27 mmol/KIdusyy39-74XlpZilhrm [facility] Comment on above:Performed By: #### LELE, 48191-9, CMP #### [facility] ([id number]) [address] [place], [place] [address]Sptobxbklb [Mass/Vol]0.80 mg/dLNormal0.40-1.00ProMobile [facility]irm[facility] Morris HospitalComment on above:Result Comment: METHOD TRACEABLE TO IDMS STANDARD Performed By: #### LELE, 15736-2, CMP #### [facility] ([id number]) [address] [place], [place] [address]OXI/1.73 sq M.predicted among non-blacks MDRD (S/P/Bld) [Vol rate/Area]77 mL/min/{1.73_m2}Normal>59ProTogus Va Medical CenterComment on above: Result Comment: Reported eGFR is based on the CKD-EPI 2020 equation that does not use a race coefficient.Performed By: #### LELE 12832-5, CMP #### [facility] ([id number]) [address], [address] [place], [place] [address]Ntjguxd [Mass/Vol]99 mg/kGYdqvhj94-26PeiUrpxpr [facility] Comment on above:Performed By: #### LELE 35483-7, CMP #### [facility] ([id number]) [address] [place], [place] [address]Furoseftq [Moles/Vol]4.0 mmol/LNormal3.5-5.0ProTogus Va Medical CenterComment on above:Performed By: #### LELE 42978-0, CMP #### [facility] ([id number]) [address] [place], [place] [address]Lnttdta [Mass/Vol]7.0 g/dLNormal6.0-8.0[facility] Comment on above:Performed By: #### LELE, 30122-3, CMP #### [facility] ([id number]) [address], [address] [place], [place] [address]Zhshnk [Moles/Vol]138 mmol/IEoeytk751-710QgvFfppub [place] HospitalComment on above:Performed By: #### LELE, 93469-1, CMP #### [facility] ([id number]) [address], [address] [place], [place] [address]Zlet nitrogen [Mass/Vol]18 mg/dLNormal5-27ProTogus Va Medical CenterComment on above:Performed By: #### LELE, 22965-3, CMP #### [facility] ([id number]) [address], [address] [place], [place] [address]Wardiixaczoku metabolic panelon 95-41-9093Idgtkrw [Mass/Vol]3.9 g/dL3.2 - 5.3 g/dLProMedica Health SystemALP [Catalytic activity/Vol]114 U/L39 - 130 U/LProMedica Health SystemALT No additional P-5'-P [Catalytic activity/Vol] 15 U/L0 - 31 U/LProMedica Health SystemAnion gap [Moles/Vol]8 mmol/L5 - 15 mmol/LProMedica Health SystemAST [Catalytic activity/Vol]20 U/L0 - 41 U/L ProMedicMeeker Memorial Hospital SystemBilirubin [Mass/Vol]0.5 mg/dL0.3 - 1.2 mg/dLProTrihealth Mccull[facility] Hospitalca Health SystemCalcium [Mass/Vol]10.4 mg/dL8.5 - 10.5 mg/dLProAultman [facility] Chloride [Moles/Vol]103 mmol/L98 - 109 mmol/LProMedica Health SystemCO2 [Moles/Vol]27 mmol/L22 - 32 mmol/LPrRusk Rehabilitation Centerica Health SystemCreatinine [Mass/Vol] 0.8 mg/dL0.40 - 1.00 mg/dLMcCullough-Hyde Memorial Hospital SystemComment on above:METHOD TRACEABLE TO [facility] STANDARDeGFR (CKD-EPI)non-race sdwsiplam83- [facility] SystemComment on above: Reported eGFR is based on the CKD-EPI 2020 equation that does not use a race coefficient. Glucose [Mass/Vol]99 mg/dL65 - 99 mg/dLProTrihealth Mccullough-Hyde Memorial Hospitalca Health SystemPotassium [Moles/Vol]4 mmol/L3.5 - 5.0 mmol/LProMedica Health SystemProtein [Mass/Vol]7 g/dL6.0 - 8.0 g/dLProTrihealth Mccull[facility]-Hy[facility] Memorial Hospitalca Health SystemSodium [Moles/Vol]138 mmol/L134 - 146 mmol/LProMedica Health SystemUrea nitrogen [Mass/Vol]18 mg/dL5 - 27 mg/dL [facility] SystemLipid 1996 panelon [id number] [Mass/Vol]187 mg/dL150 - 200 mg/dLMcCullough-Hyde Memorial Hospital SystemCholesterol in HDL [Mass/Vol]66 mg/dL 39 - PINF mg/dLACMC Healthcare System GlenbeighComment on above: HDL <40 mg/dL - High Risk HDL > or = 40mg/dL- Desirable HDL >60 mg/dL - Negative Risk Cholesterol in LDL [Mass/Vol]107 mg/dLNINF - 130 mg/dLACMC Healthcare System [facility] Comment on above: LDL <100 mg/dL - Desirable LDL >160 mg/dL - High Risk Cholesterol in VLDL [Mass/Vol]14 mg/dL0 - 30 mg/dLACMC Healthcare System [facility] Cholesterol.total/Cholesterol in HDL [Mass ratio]2.8 {ratio}1.0 - 5.0ACMC Healthcare System GlenbeighTriglyceride [Mass/Vol]68 mg/dL27 - 150 mg/dLACMC Healthcare System GlenbeighCholesterol [Mass/Vol]187 mg/[id number] Clinic [facility] Comment on above:Performed By: #Chavo#Chavo ROYAL 94626-0, CMP #### [facility] ([id number]) [address], [address] [place], [place] [address]Lpqkrjajjwl in HDL [Mass/Vol]66 mg/dLNormal>39ProTogus Va Medical CenterComment on above:Result Comment: HDL <40 mg/dL - High Risk HDL > or = 40mg/dL- Desirable HDL >60 mg/dL - Negative Risk Performed By: #### LELE, 31170-4, CMP #### [facility] ([id number]) [address], [address] [place], [place] [address]Jhwlugukdzu in LDL [Mass/Vol]107 mg/dLNormal<130ProPromedica [facility] HospitalComment on above:Result Comment: LDL <100 mg/dL - Desirable LDL >160 mg/dL - High Risk Performed By: #### LELE 16578-6, CMP #### [facility] ([id number]) [address], [address] [place], [place] [address]Eqolsycjlys in VLDL [Mass/Vol]14 mg/dLNormal0-30ProPromed[facility] HospitalComment on above:Performed By: #### LELE 67788-5, CMP #### [facility] ([id number]) [address], [facility] [address] [place], [place] [address]UDDEAARGMYF:HDL2.3Ainzna3.0-5.0ProProm[facility] HospitalComment on above:Performed By: #### LELE 92896-2, CMP #### [facility] ([id number]) [address], [facility] [address] [place], [place] [address]Xcnhyeowmfxn [Mass/Vol]68 mg/vMQvqzgp57-841RkyJxemmv [place] HospitalComment on above:Performed By: #### LELE 08037-1, CMP #### [facility] ([id number]) [address], [address] [place], [place] [address]Ls Panel Informationon 21-10-4899NrnYgfeutGreene Memorial HospitalTHYROID PROFILEon 82-08-9928Muby T4 [Mass/Vol]1.33 ng/dLNormal0.61-1.60ProProm[facility] HospitalComment on above:Performed By: #### LELE, 57779-0, CMP #### [facility] ([id number]) [address], [address] [place], [place] [address]OHC5.35 uIU/mLLow0.49-4.67C[facility] Avon HospitalComment on above:Performed By: #### THYR, 31140-9, CMP #### [facility] ([id number]) [address], [address] [place], [place] [address]Wfabpgg profile includes TSH FT4on 54-88-8047Zbdg T4 [Mass/Vol] 1.33 ng/dL0.61 - 1.60 ng/dLACMC Healthcare System GlenbeighInterpretation and review of laboratory resultsAbnoAtrium Health Qn0.35 m[IU]/LLowEncompass Health Rehabilitation Hospital of HarmarvilleUrine Cytology ([facility])on 07-18-2024 Microscopic exam Cytology (U) [Interp]Diagnosis InfoInvalid Interpretation Code [facility] North HospitalComment on above:Result Comment: A:Urine,Clean Catch:Voided Interpretation [...] by : on: 07/18/2024 12:47:49Performed By: #### [id number] #### [facility] [address], [place] [address]Xmnxqqxutp Visit Summaryon 93-48-8025Gwdtjogwln Visit Summary Ambulatory Visit Summary MIKY FUENTES [...] When: Comments: pending review of imaging Where: [address] [place] [address]- Medications What How Much When Instructions Unchanged [...] Contact prescribing physicianif questions or concerns Allergies [place]field (Unknown) Dogs (Unknown) Milk Products (Unknown) Mold [...] hormone in the b (more content not included)...NormalBethesda North HospitalUrine Cytology ([facility])on 93-86-8305TJ Method of ExtractionVoidedNormalBethesda North HospitalComment on above:Performed By: #### [id number] #### [facility] [address] [place], [place] [address]VU Number of Ofwm5Brogaoq Interpretation [facility] HospitalComment on above:Performed By: #### [id number] #### [facility] [address], [place] [address]UC SpecimenClean CatchRacihdBaltimore VA Medical CenterComment on above:Performed By: #### [id number] #### [facility] [address], [place] [address]RY Type of ServiceTechnical OnlyRachidBaltimore VA Medical CenterComment on above:Performed By: #### [id number] #### [facility] [address], [place] [address]Stlzcry Office/Clinic Noteon 85-45-8399Qvsrhnc Office/Clinic NoteUrology Office/Clinic Note Chief Complaint f/u [...] with voice recognition artificial intelligence software, specifically [facility], [place] and or Va[employer]. Substitutions may have occurred due to the [...] Urnls Dip Stick Auto w/o Microscopy POC 45885 Follow-up With When Contact Information MO HAYDEN, Yehuda Haddad, URL [address] [id number]- Additional Instructions: pending review of imaging Patient Education Kidney Stones, Gbzf-mv-Uzej Hematuria, Adult Problem List/Past Medical History Ongoing [...] lithotripsy of bile duct (more content not included)...[facility] HospitalComment on above:Result Comment: Electronically Signed By: RAAD Back APRN, [place] X\.br\Date and Time Signed: 07/15/24 15:39 EDTECG 12 [place] 37-26-9366Qzuhp bradycardia with occasional PVCs Low voltage QRS Nonspecific ST change QTc [address] [facility] Work Phone: bASIC METABOLIC PANLon 71-80-1769Euapx gap [Moles/Vol] 6 mmol/LNormal5-15ProMedica Wood County HospitalComment on above:Performed By: #### BMP, THYR #### [facility] ([id number]) [address], [address] [place], [place] [address]Lvytaas [Mass/Vol]9.8 mg/dLNormal8.5-10.5ProMedica Wood County HospitalComment on above:Performed By: #### BMP, THYR #### [facility] ([id number]) [address] [place], [place] [address]Hkmryppf [Moles/Vol]106 mmol/OExhcej58-295HtvDgrxok [place] HospitalComment on above:Performed By: #### LISA, THYR #### [facility] ([id number]) [address], [address] [place], [place] [address]MK8 [Moles/Vol]31 mmol/FCbxiil09-59EjySnniycOhio State East Hospital Comment on above:Performed By: #### LISA, THYR #### [facility] ([id number]) [address], [address] [place], [place] [address]Ghkfkqxxlv [Mass/Vol]0.90 mg/dLNormal0.40-1.00ProTogus Va Medical CenterComment on above:Result Comment: METHOD TRACEABLE TO IDMS STANDARD Performed By: #### LISA, THYR #### [facility] ([id number]) [address], [address] [place], [place] [address]VPK/1.73 sq M.predicted among non-blacks MDRD (S/P/Bld) [Vol rate/Area]68 mL/min/{1.73_m2}Normal>59ProTogus Va Medical CenterComment on above: Result Comment: Reported eGFR is based on the CKD-EPI 2020 equation that does not use a race coefficient.Performed By: #### LISA, THYR #### [facility] ([id number]) [address], [address] [place], [place] [address]Rwavial [Mass/Vol]105 mg/rBLubk29-60BjhQuzialCleveland Clinic Avon Hospital Comment on above:Performed By: #### LISA, THYR #### [facility] ([id number]) [address], [address] [place], [place] [address]Jpiuhvkqm [Moles/Vol]4.2 mmol/LNormal3.5-5.0ProTogus Va Medical CenterComment on above:Performed By: #### LISA, THYR #### [facility] ([id number]) [address], [address] [place], [place] [address]Spwlnz [Moles/Vol]143 mmol/NJynywi972-808JqkGoknem [place] HospitalComment on above:Performed By: #### BMP, THYR #### [facility] ([id number]) [address], [address] [place], [place] [address]Ssfs nitrogen [Mass/Vol]19 mg/dLNormal5-27ProTogus Va Medical CenterComment on above:Performed By: #### LISA, THYR #### [facility] ([id number]) [address], [address] [place], [place] [address]Yebut Metabolic Panelon 17-24-6089Rogsf gap [Moles/Vol]6 mmol/L5 - 15 mmol/[facility] Health SystemCalcium [Mass/Vol]9.8 mg/dL8.5 - 10.5 mg/dL ACMC Healthcare System GlenbeighChloride [Moles/Vol]106 mmol/L98 - 109 mmol/[facility] Lake[facility] Health SystemCO2 [Moles/Vol]31 mmol/L22 - 32 mmol/[facility] Creatinine [Mass/Vol]0.90 mg/dL0.40 - 1.00 mg/dLACMC Healthcare System GlenbeighComment on above:METHOD TRACEABLE TO [facility] STANDARDeGFR (CKD-EPI)non-race agwtcdasg[address] [place], [place] [address]Comment on above: Reported eGFR is based on the CKD-EPI 2020 equation that does not use a race coefficient. Glucose [Mass/Vol]105 mg/qSLwem28 - 99 mg/dLACMC Healthcare System Glenbeigh Interpretation and review of laboratory resultsAbnormalMcCullough-Hyde Memorial Hospital System Potassium [Moles/Vol]4.2 mmol/L3.5 - 5.0 mmol/LProMedica Health SystemSodium [Moles/Vol]143 mmol/L134 - 146 mmol/[facility] SystemUrea nitrogen [Mass/Vol]19 mg/dL5 - 27 mg/dLEncompass Health Rehabilitation Hospital of Harmarville THYROID PROFILEon 92-92-1236Enpj T4 [Mass/Vol]1.92 ng/dLHigh0.61-1.60ProTogus Va Medical CenterComment on above:Performed By: #### BMP, THYR #### [facility] ([id number]) [address], [address] [place], [place] [address]QQY3.58 uIU/mLNormal0.49-4.67ProTogus Va Medical CenterComment on above:Performed By: #### BMP, THYR #### [facility] ([id number]) [address], [address] [place], [place] [address]Hjepvkg profile includes TSH FT4on 41-55-2654Nizz T4 [Mass/Vol] 1.92 ng/dLHigh0.61 - 1.60 ng/dLACMC Healthcare System GlenbeighInterpretation and review of laboratory resultsAbnormLima Memorial HospitalTS Qn0.58 m[IU]/LProMedica Munson Healthcare Charlevoix HospitalProVeterans Health AdministrationAmbulatory Visit Summaryon 10-26-2023 Ambulatory Visit Summary MIKY FUENTES :1950 Visit Date:10/26/2023 Ambulatory Visit Instructions Your Diagnosis Ureteral stone with hydronephrosis Kidney stone Tests Performed Urnls Dip Stick Auto w/o Microscopy POC 82151 Your Care Team Attending Physician - Yehuda [...] AM EST With: Where: [facility] [address] [place] [address] [place] [address]- \.br\ You Need to Schedule the Following Appointments\.br\ Follow Up with MO HAYDEN, Yehuda Haddad, URL When: \.br\ Where:\.br\ [address] [facility]\.br\ [place] [address].br\ Medications\.br\ What How Much When Instructions\.br\ New potassium bicarbonate (K-Effervescent 25 mEq oral tablet, effervescent) 1 Tablets By Mouth 2 times a day Refills: 11 Pickup at [facility]\.br\ Unchanged allopurinol (allopurinol 300mg Tab) 1 [...] if questions or concerns \.br\ Pharmacy Information\.br\ [facility]: [address] [place], [place] [id number] [phone]\.br\ \.br\ What How Much When Why Comments\.br\ Stop Taking tamsulosin (Flomax 0.4 mg Cap) 1 Capsules By Mouth Every day Right flank pain Kidney stones Gross jessica turia\.br\ Test Results\.br\ Urnls Dip Stick Auto w/o Microscopy POC 52175 (10/26/2023)\.br\ Bilirubin Urine Dipstick - Negative\.br\ Blood Urine Dipstick - 3+ Large\.br\ Glucose Urine Dipstick - Negative\.br\ Ketones Urine Dipstick - Negative\.br\ Leukocytes Urine Dipstick - Negative\.br\ Nitrite Urine Dipstick - Negative\.br\ Protein Urine Dipstick - 2+ (100 mg/dl)\.br\ Specific Trimble Urine Dipstick - 1.025\.br\ Urine Appearance Urine Dipstick - Slightly cloudy\.br\ Urine Color Urine Dipstick - Yellow\.br\ Urobilinogen Urine Dipstick - Normal 0.2-1 EU/dl\.br\ pH Urine Dipstick - 5\.br\ Allergies\.br\ Rockfield (Unknown)\.br\ Dogs (Unknown)\.br\ Milk Products (Unknown)\.br\ Mold [...] \.br\ 8 oz (237 mL) of milk, fsdtgsp-ieyfjhhgmdac-jixyp milk, and calcium-fortifiedfruit juice. Calcium- fortified means [...] ? \.br\ Have a salad and fruitFisher [facility] 57-61-7833Stpebjp Education Nephrology Dietary Guidelines to Help Prevent [...] ? 8 oz (237 mL) of milk, iezcuid-rnscdbgvpqia-vflat milk, and calcium- fortifiedfruit juice. Calcium-fortified means [...] Spinach (cooked), rhubarb, beets, sweet potatoes, and Italian chard. ? Peanuts. ? Potato chips, nepali fries, and baked potatoes with skin on. ? Nuts and nut products. ? Chocolate. ? If you regularly take a diuretic medicine, make sure to eat at least 1 or 2 servings of fruits orvegetables that are high in potassium each day. These include: ? Avocado. ? Banana. ? [place], prune, carrot, or tomato juice. ? Baked [...] fish oil, or vitamin B6. ? Take kitn-eyj-jlqddvq and prescription medicines only as told by your health care provider. Theseinclude supplements. What foods sh (more content not included)...[facility] 25-87-8794SCK - [id number]#1.00TIFF [facility] [id number]#1.00TIFFNormNoelle [facility] HospitalUrology Office/Clinic Noteon 05-98-3371Oxskfsv Office/Clinic NoteChief Complaint CT Review HPI Staff 2 wk f/u with KUB. Saw DAXA at prior OV. Previous Dx: R flank pain, kidney stones, gross hematuria. S/p ESWL 11/18/20. CT AP wo con done 10/11/23 at [facility].Was given Tamsulosin, however stopped taking after [...] Contact Information MO HAYDEN, Yehuda Haddad, URL [address] [place], [place] [phone]- Additional Instructions: 6 months Patient Education Dietary [...] BID OTC joint sup (more content not included)...[facility] Comment on above:Result Comment: Electronically Signed By: Yehuda HASSAN MD\.br\Date and Time Signed: 10/26/23 09:11 EST\.br\Electronically Co-Signed By: Chantal Bishop.jaison\Date and Time Co-Signed: 10/26/2309:09 ESTRAD - CT Reporton 97-01-9852QMW - CT Report [id number]#1.00TIFFNormalBethesda North HospitalRAD - CT [id number]#1.00TIFFNormal Bolden [facility]aritan HospitalRAD - MISCon 05-72-7521LOM - MISC [id number]#1.00TIFFNormPeoples HospitalRAD - [id number]#1.00TIFFNoParkview Health Bryan HospitalAmbulatory Visit Summaryon 20-38-7827Upibaghveq Visit Summary MIKY FUENTES :1950 Visit Date:10/09/2023 Ambulatory Visit Instructions Your Diagnosis Gross hematuria Right flank pain Tests Performed Urnls Dip Stick Auto w/o Microscopy POC 74408 Your Care Team Attending Physician - DORA [...] Urnls Dip Stick Auto w/o Microscopy POC 28988 (10/09/2023) Bilirubin Urine Dipstick - Negative Blood Urine Dipstick - 3+ Large Glucose Urine Dipstick - Negative Ketones Urine Dipstick - Negative Leukocytes Urine Dipstick - Negative Nitrite Urine Dipstick - Negative Protein Urine Dipstick - 3+ (300 mg/dl) Specific Trimble Urine Dipstick - >=1.030 Urine Appearance Urine Dipstick - Clear Urine Color Urine Dipstick - Yellow Urobilinogen Urine Dipstick - Normal 0.2-1 EU/dl pH Urine Dipstick - 5.5 Allergies Rockfield (Unknown) Dogs (Unknown) Milk Products (Unknown) Mold [...] you for choosing us for your care. [facility] HospitalPatient Educationon 10-09-2023 Patient EducationUrology Hematuria, Adult Hematuria [...] these instructions at home: Medicines ? Take dsld-oti-ogpfvhw and prescription medicines only as told by [...] the blood stops without treatment. ? Take napu-cuf-hjhplfo and prescription medicines only as told by your health care provider. ? Drink enough fluid to keep your urine pale yellow. This information is not intended to replace advice given to you by your health care provider. Make sure you discuss any questions you have with your health care provider. Document Revised: 06/15/2021 Document Reviewed: 06/15/2021 Snapflow Patient Education ? 2022 [employer].[facility] Office/Clinic Noteon 35-37-3875Otfsnjo Office/Clinic NoteChief Complaint Gross hematuria HPI Staff [...] Daily, # 30 cap(s), Refills(s) 0, Pharmacy: [facility], 165, cm, 10/09/23 15:24:00 EST, Height/Length Dosing, 113, kg, 10/09/23 15:24:00 EST, Weight Dosing CT Abdomen w/o Contrast E&M of Est. Patient Moderate 30-39 Min 43790 2. Kidney stones (N20.0: Calculus of kidney) see #1 KUB from this spring showed several medium (6-7mm) R renal stones has had multiple lithotripsy in past Ordered: tamsulosin, 0.4 mg = 1 cap(s), Oral, Daily, # 30 cap(s), Refills(s) 0, Pharmacy: [facility], 165, cm, 10/09/23 15:24:00 EST, Height/Length Dosing, 113, kg, 10/09/23 15:24:00 EST, Weight Dosing CT Abdomen w/o Contrast E&M of Est. Patient Moderate 30-39 Min 56687 3. Gross hematuria (R31.0: Gross hematuria) see #1 Ordered: tamsulosin, 0.4 mg = 1 cap(s), Oral, Daily, # 30 cap(s), Refills(s) 0, Pharmacy: [facility], 165, cm, 10/09/23 15:24:00 EST, Height/Length Dosing, 113, kg, 10/09/23 15:24:00 EST, Weight Dosing CT Abdomen w/o Contrast E&M of Est. Patient Moderate 30-39 Min 10901 Urnls Dip Stick Auto w/o Microscopy POC 74592 Follow-up With When Contact Information INGE CARDONA, DORA Washburn, URL [address] [place] [address] [place] (1) Additional Instructions: pending results of imaging/testing, [...] 400 mg, Oral, B (more content not included)...Lutheran HospitalComment on above:Result Comment: Electronically Signed By: DORA ALCAZAR PA-C\Date and Time Signed: 10/09/2315:49 ESTCREATININEon 03-05-2023 Creatinine [Mass/Vol]1.16 mg/dLCritically high0.55-1.02[facility] Comment on above:Performed By: #### CREA #### [facility] [address] [address] [address] Alysha CotterGFR-AF PRIRVZZY19 mL/min/1.70t5Ifpjgcekxa low>=60The [facility] Medical CenterComment on above:Performed By: #### CREA #### [facility] [address] [address] [address] Alysha CotterGFR-NON AF SKAETORT15 mL/min/1.79s5Qzkaghubmo low>=60The [facility] Medical CenterComment on above:Performed By: #### CREA #### [facility] [address] [place] [address] Dr. Encarnacion ChangCT ABD/PELVIS WO CONon 75-63-0170MU ABD/PELVIS WO CONEXAMINATION: CT ABD/PELVIS WO CON [...] Electronically authenticated by: KYLE CHENEY Date: 2023-03-05 15:08[facility] LimaVITAMIN B1 (THIAMINE)on 44-29-3505Zxu. B1, Whole Itcfl499.2 nmol/NNsbtvd69.5-200.0The [facility] Medical CenterComment on above:Performed By: #### VITB1T ####[facility] [address] [address]Dr. Alysha Longo AUTO DIFFon 04-89-1965DJSD #0.1 103/ulNormal0.0-0.1The [facility] Medical CenterComment on above:Performed By: #### CBC #### [facility] [address] [address] [address] Alysha Tracysophils/100 WBC (Bld)0.9 %Normal0.2-2.0[facility] Comment on above:Performed By: #### CBC #### [facility] [address] [address] [address] Alysha Andre #0.2 103/ulNormal0.0-0.7The [facility] Medical CenterComment on above: Performed By: #### CBC #### [facility] [address] [address] [address] Alysha Cotterosinophils/100 WBC (Bld)3.0 %Normal0.9-7.0The [facility] Comment on above:Performed By: #### CBC #### [facility] [address] [address] [address] Alysha Cotterrythrocyte distribution width (RBC) [Ratio]13.9 %Xmntij36.0-15.0 The [facility] Brule HospitalComment on above:Performed By: #### CBC #### [facility] [address] [address] [address] Alysha Parkatocrit (Bld) [Volume fraction]39.5 %Tufjch91.0-48.0The [facility] Medical CenterComment on above:Performed By: #### CBC #### [facility] [address] [place] [address] Dr. Alysha MachucaHemoglobin (Bld) [Mass/Vol]12.7 g/bZNaxeug70.0-16.0The [facility] CenterComment on above:Performed By: #### CBC #### [facility] [address] [place] [address] Dr. Alysha MachucaIG #0.01 10e3/ulNormal0.00-0.03The [facility] Medical CenterComselect specialty hospital on above:Performed By: #### CBC #### [facility] [address] [place] [address] Dr. Alysha Hurtado %0.2 %Normal0.0-0.5The [facility] CenterComment on above: Performed By: #### CBC #### [facility] [address] [place] [address] Dr. Alysha Meek #1.7 103/ulNormal1.2-3.8The [facility] Medical CenterComselect specialty hospital on above:Performed By: #### CBC #### [facility] [address] [place] [address] Dr. Alysha Childsmphocytes/100 WBC (Bld)30.7 %Giyydl78.5-60.0The [facility] Medical CenterComment on above:Performed By: #### CBC #### [facility] [address] [place] [address] Dr. Alysha GillespieUAL DIFF REQNONormalThe [facility] Medical CenterComment on above: Performed By: #### CBC #### [facility] [address] [place] [address] Dr. Alysha Stanford (RBC) [Entitic mass]29.3 nxOdmvmv78.7-34.0The [facility] Medical CenterComment on above:Performed By: #### CBC #### [facility] [address] [place] [address] Dr. Alysha Valladares (RBC) [Mass/Vol]32.2 g/lTIgfvge59.9-35.2The [facility] Medical CenterComment on above:Performed By: #### CBC #### [facility] [address] [place] [address] Dr. Alysha ValladaresV (RBC) [Entitic vol]91.0 aYLxkmuu95.0-99.0The [facility] Medical CenterComment on above:Performed By: #### CBC #### [facility] [address] [place] [address] Dr. Alysha Bender #0.4 103/ulNormal0.3-0.8The [facility] Medical CenterComment on above:Performed By: #### CBC #### [facility] [address] [place] [address] Dr. Alysha Lambocytes/100 WBC (Bld)6.8 %Normal1.7-12.0The [facility] Comment on above:Performed By: #### CBC #### [facility] [address] [place] [address] Dr. Alysha Naranjo #3.3 103/ulNormal1.4-6.5The [facility] Medical CenterComment on above:Performed By: #### CBC #### [facility] [address] [place] [address] Dr. Alysha Oneillutrophils/100 WBC (Bld)58.4 %Sljegw13.0-75.0The [facility] Medical CenterComment on above:Performed By: #### CBC #### [facility] [address] [place] [address] Dr. Alysha Gundersonlet mean volume (Bld) [Entitic vol]9.3 fLCritically low 9.5-13.5The [facility] CenterComment on above:Performed By: #### CBC #### [facility] [address] [place] [address] Dr. Yilan HayimXFO092 103/bjXndyzh098-423Lph [facility] CenterComment on above: Performed By: #### CBC #### [facility] [address] [address] [address] Alysha MachucaRBC4.34 106/ulNormal4.20-5.40The [facility] on above:Performed By: #### CBC #### [facility] [address] [address] [address] Alysha MachucaWBC5.6 103/ulNormal4.0-11.0The [facility] CenterComselect specialty hospital on above: Performed By: #### CBC #### [facility] [address] [address] [address] Alysha MachucaFERRITINon 58-41-7929Qhbbommu [Mass/Vol]36.0 ng/mLNormal8.0-252.0 The [facility] CenterComment on above:Performed By: #### FERR, B12FOL, FETIBC, VITAD ####[facility] [address] [address]Dr. Alysha MachucaIRON AND TIBCon 02-20-2023% THMCPDIOCJ02.8 %NormalThe [facility] on above:Performed By: #### FERR, B12FOL, FETIBC, VITAD ####[facility] [address] [address]Dr. Alysha ChangIron [Mass/Vol]53.0 ug/aPGliziu84.0-170.0The [facility] on above:Performed By: #### FERR, B12FOL, FETIBC, VITAD ####[facility] [address] [address]Dr. Alysha MachucaTIBC DIRECT 335.0 ug/hOKqugzg060.0-450.0The [facility] on above:Performed By: #### FERR, B12FOL, FETIBC, VITAD ####[facility] [address] [address]DrMaite MachucaMAGNESIUMon 39-10-3882Jlujizqui [Mass/Vol]1.9 mg/dLNormal1.8-2.4The [facility] CenterComment on above:Performed By: #### PHOS, CMP, MG #### [facility] [address] [place] [address] Dr. Alysha BrunoUSon 50-22-4444Ccftnedxz [Mass/Vol]3.9 mg/dLNormal2.6-4.7 The [facility] CenterComment on above:Performed By: #### PHOS, CMP, MG #### [facility] [address] [place] [address] Dr. Alysha MachucaPROF 14(COMP METB)on 87-56-8384Nrsffnz [Mass/Vol]3.4 g/dLNormal 3.4-5.0The [facility] CenterComment on above:Performed By: #### PHOS, CMP, MG #### [facility] [address] [place] [address] Dr. Alysha MachucaAlbumin/Globulin [Mass ratio]0.9 {ratio}NormalThe [facility] Medical CenterComment on above:Performed By: #### PHOS, CMP, MG #### [facility] [address] [place] [address] Dr. Alysha Cole [Catalytic activity/Vol]123 U/LCritically uhcf90-286Igp [facility] CenterComment on above:Performed By: #### PHOS, CMP, MG #### [facility] [address] [place] [address] Dr. Alysha Burgess [Catalytic activity/Vol]21 U/MIouigt00-29Bkw [facility] CenterComment on above:Performed By: #### PHOS, CMP, MG #### [facility] [address] [place] [address] Dr. Alysha Rubio gap [Moles/Vol]13.8 mmol/LNormalThe [facility] on above:Performed By: #### PHOS, CMP, MG #### [facility] [address] [place] [address] Dr. Alysha Yañez [Catalytic activity/Vol]15 U/BFmbjfe47-45Ymj [facility] CenterComment on above:Performed By: #### PHOS, CMP, MG #### [facility] [address] [place] [address] Dr. Alysha MachucaBilirubin [Mass/Vol]0.5 mg/dLNormal0.2-1.0[facility] Comment on above:Performed By: #### PHOS, CMP, MG #### [facility] [address] [place] [address] Dr. Alysha MachucaCalcium [Mass/Vol]9.6 mg/dLNormal8.5-10.1The [facility] Comment on above:Performed By: #### PHOS, CMP, MG #### [facility] [address] [place] [address] Dr. Alysha MachucaChloride [Moles/Vol]103 mmol/XJlerya40-024AtnUniversity Hospitals [facility] Comment on above:Performed By: #### PHOS, CMP, MG #### [facility] [address] [place] [address] Dr. Alysha MachucaCO2 [Moles/Vol]25.2 mmol/CImnsxq00.0-32.0[facility] Comment on above:Performed By: #### PHOS, CMP, MG #### [facility] [address] [place] [address] Dr. Alysha MachucaCreatinine [Mass/Vol]0.95 mg/dLNormal0.55-1.02The [facility] CenterComment on above:Performed By: #### PHOS, CMP, MG #### [facility] [address] [place] [address] Dr. Encarnacion ChangEGFR-AF NORTHERN IRISH>60Normal>=60The [facility] CenterComment on above:Performed By: #### PHOS, CMP, MG #### [facility] [address] [place] [address] Dr. Alysha CotterGFR-NON AF DPVAEGYP91 mL/min/1.17v9Fwlqzxhivr low>=60The [facility] CenterComment on above:Performed By: #### PHOS, CMP, MG #### [facility] [address] [address] [address] Alysha MachucaGlobulin (S) [Mass/Vol]3.6 g/dLNoSelect Medical Specialty Hospital - Boardman, IncComment on above:Performed By: #### PHOS, CMP, MG #### [facility] [address] [address] [address] Alysha MachucaGlucose [Mass/Vol]96 mg/lAVbcwle13-737YqcUniversity Hospitals Lake [facility] Comment on above:Performed By: #### PHOS, CMP, MG #### [facility] [address] [address] [address] Alysha MachucaPotassium [Moles/Vol]4.0 mmol/LNormal3.5-5.1[facility] Comment on above:Performed By: #### PHOS, CMP, MG #### [facility] [address] [place] [address] Dr. Alysha MachucaProtein [Mass/Vol]7.0 g/dLNormal6.4-8.2[facility] Comment on above:Performed By: #### PHOS, CMP, MG #### [facility] [address] [address] [address] Alysha MachucaSodium [Moles/Vol]138 mmol/RSdwskw108-004EqnUniversity Hospitals Lake West Medical Center Comment on above:Performed By: #### PHOS, CMP, MG #### [facility] [address] [address] [address] Alysha MachucaUrea nitrogen [Mass/Vol]21.0 mg/dLCritically high7.0-18.0[facility] CenterComment on above:Performed By: #### PHOS, CMP, MG #### [facility] [address] [address] [address] Alysha MachucaUrea nitrogen/Creatinine [Mass ratio]22.1 mg/mgNoSelect Medical Specialty Hospital - Boardman, IncComment on above:Performed By: #### PHOS, CMP, MG #### [facility] [address] [place] [address] Dr. Alysha Garg B12 AND FOLATEon 71-36-6021Xjdwwhauf (Vitamin B12) [Mass/Vol] 652.0 pg/xCYxqekd188.0-986.0The [facility] CenterComment on above:Performed By: #### FERR, B12FOL, FETIBC, VITAD ####[facility] [address] [address]Dr. Alysha MachucaZfhmzSLSXNC30.30 ng/mLNormal8.60-58.90The [facility] CenterComment on above:Performed By: #### FERR, B12FOL, FETIBC, VITAD ####[facility] [address] [address]Dr. Alysha MachucaVITAMIN D 25 OHon 90-93-7962EII D 25-OH41.7 ng/mLNormalThe [facility] CenterComselect specialty hospital on above:Performed By: #### FERR, B12FOL, FETIBC, VITAD ####[facility] [address] [address]Dr. Alysha MachucaVIT D RANGESSEE BELOWKindred Hospital LimaComselect specialty hospital on above: Result Comment: <20 ng/mL Vit D deficient 20 - <30 ng/mL Vit D insufficient 30 - 100 ng/mL Vit D sufficient >100 ng/mL Potential ToxicityPerformed By: #### FERR, B12FOL, FETIBC, VITAD ####[facility] [address] [address]Dr. Alysha SvenXR KUB 1 VIEWon 39-99-7962CG KUB 1 VIEW EXAMINATION: XR KUB 1 [...] Electronically authenticated by: KYLE CHENEY Date: 2023-02-20 15:57[facility] LimaOffice Visit (Cardiology)on 22-31-8542Kvwigl-up visit Diagnoses/Problems Assessed Anticoagulated (V58.61) (Z79.01) Hyperlipidemia (272.4) (E78.5) Non-ischemic cardiomyopathy (425.4) (I42.8) Paroxysmal atrial fibrillation (427.31) (I48.0) Class 2 obesity with body mass index (BMI) of 36.0 to 36.9 in adult (278.00,V85.36) (E66.9,Z68.36) Never a smoker Orders Class 2 obesity with body mass index (BMI) of 36.0 to 36.9 in adult Healthy Weight Tips; Status:Complete; Done: 36Qzq2815 Some eating tips that can help you [...] MG Oral TabletTAKE 1 TABLET Twice daily [place] 3 [place] DIRECTED. Tylenol Arthritis Ext Relief [...] negative for complaint. Vitals Vital Signs Recorded: 59Mdr0877 01:27PM Heart Rate43, Apical Likndxsg536, RUE, Sitting Zvweiennh20, RUE, Sitting Height5 ft 5 in Biyqjt081 lb BMI Jltkbpxudj94.94 kg/m2 BSA Calculated2.07 Tobacco Useb) No PHQ-2 [...] Constitutional (more content not included)...NormalUH TouchworksTobacco Screening.on 83-62-5452Vptof depression screening assessmentNo-[facility] 250 DO Work Phone: Fall risk assessmenta) No falls within the last year -[facility] [address] DO Work Phone: Tobacco use status CPHSb) NoMP-[facility] ZEB 250 DO Work Phone: VC INJ SCL EDMOND COMPONENT ENGINEER VEINSon 59-95-4114BO INJ SCL EDMOND COMPONENT ENGINEER VEINSPatient: MIKY FUENTES Exam Date: 11/03/2022 : 1950 Gender:F Ordering : DR WILLARD SHARMA M.D. Admission #: [id number] Family : Order #: [id number] CLICK HERE TO VIEW EXAM RADIOLOGY REPORT PROCEDURE: VEIN CENTER INJECTION SCLEROSING SOLUTION MULTIPLE VEINS SAME COMPARISON: VC INJ SCL EDMOND COMPONENT ENGINEER VEINS, 10/27/2022. VC INJ SCL EDMOND COMPONENT ENGINEER VEINS, 10/16/2022. INDICATIONS: Pain co-occurrent and due [...] by: Willard Sharma MD on 11/03/2022 at 12:37[facility] LimaXR KUB 1 VIEWon 96-15-7485IU KUB 1 VIEWEXAMINATION: XR KUB 1 VIEW [...] Electronically authenticated by: KYLE CHENEY Date: 2022-11-03 12:52[facility] LimaVC INJ SCL EDMOND COMPONENT ENGINEER VEINSon 32-24-0631AH INJ SCL EDMOND COMPONENT ENGINEER VEINS Patient: MIKY FUENTES Exam Date: 10/27/2022 : 1950 Gender:F Ordering : DR WILLARD SHARMA M.D. Admission #: [id number] Family : Order #: [id number] CLICK HERE TO VIEW EXAM RADIOLOGY REPORT PROCEDURE: VEIN CENTER INJECTION SCLEROSING SOLUTION MULTIPLE VEINS SAME COMPARISON: VC INJ SCL EDMOND COMPONENT ENGINEER VEINS, 10/16/2022. VC INJ SCL EDMOND COMPONENT ENGINEER VEINS, 10/06/2022. INDICATIONS: Pain co-occurrent and due [...] by: Willard Sharma MD on 10/27/2022 at 11:46[facility] LimaVC INJ SCL EDMOND COMPONENT ENGINEER VEINSon 71-08-5958PN INJ SCL EDMOND COMPONENT ENGINEER VEINSPatient: MIKY FUENTES Exam Date: 10/16/2022 : 1950 Gender:F Ordering : DR WILLARD SHARMA M.D. Admission #: [id number] Family : Order #: [id number] CLICK HERE TO VIEW EXAM RADIOLOGY REPORT PROCEDURE: VEIN CENTER INJECTION SCLEROSING SOLUTION MULTIPLE VEINS SAME COMPARISON: VC INJ SCL EDMOND COMPONENT ENGINEER VEINS, 10/06/2022. INDICATIONS: Pain co-occurrent and due [...] by: Kyle Cheney M.D. on 10/17/2022 at 08:12[facility] LimaCREATININEon 24-99-4334Vcknispakk [Mass/Vol]1.11 mg/dLCritically high 0.55-1.02The [facility] CenterComment on above:Performed By: #### CREA ####[facility] [address] [place], [place] [address]Dr. Yilan ChangEGFR-AF ZQYDLIDV16 mL/min/1.25o2Nbtqtaclfk low>=60[facility] on above:Performed By: #### CREA ####[facility] [address] [place], [place] [address]Dr. Yilan ChangEGFR-NON AF DEEPBYXA10 mL/min/1.90q3Amxfgwqjnx low>=60The [facility] HospitalComment on above: Performed By: #### CREA ####[facility] [address] [place], [place] [address]PgMaite MachucaVC INJ SCL EDMOND COMPONENT ENGINEER VEINSon 10-48-0184ML INJ SCL EDMOND COMPONENT ENGINEER VEINSPatient: MIKY FUENTES Exam Date: 10/06/2022 : 1950 Gender:F Ordering : DR WILLARD SHARMA M.D. Admission #: [id number] Family : Order #: [id number] CLICK HERE TO VIEW EXAM RADIOLOGY REPORT [...] by: Willard Sharma MD on 10/06/2022 at 13:45[facility] LimaVC CONSULT FOLLOWUPon 21-57-6636IF CONSULT FOLLOWUPPatient: MIKY FUENTES Exam Date: 09/26/2022 : 1950 Gender:F Ordering : DR WILLARD SHARMA M.D. Admission #: [id number] Family : Order #: [id number] CLICK HERE TO VIEW EXAM RADIOLOGY REPORT [...] by: Kyle Cheney M.D. on 09/26/2022 at 15:46[facility] LimaVC EXT VENOUS RT LIMITEDon 91-44-7611TN EXT VENOUS RT LIMITEDPatient: MIKY FUENTES Exam Date: 09/26/2022 : 1950 Gender:F Ordering : DR WILLARD SHARMA M.D. Admission #: [id number] Family : Order #: [id number] CLICK HERE TO VIEW EXAM RADIOLOGY REPORT [...] by: Kyle Cheney M.D. on 09/26/2022 at 15:44[facility] LimaVC INJ FOAM SCLERO W US MLTIon 64-18-3588HG INJ FOAM SCLERO W US MLTI Patient: MIKY FUENTES Exam Date: 09/20/2022 : 1950 Gender:F Ordering : DR WILLARD SHARMA M.D. Admission #: [id number] Family : Order #: [id number] CLICK HERE TO VIEW EXAM RADIOLOGY REPORT [...] by: Kyle Cheney M.D. on 09/20/2022 at 15:43[facility] LimaVC CONSULT FOLLOWUPon 99-72-1953XS CONSULT FOLLOWUPPatient: MIKY FUENTES Exam Date: 09/07/2022 : 1950 Gender:F Ordering : DR WILLARD SHARMA M.D. Admission #: [id number] Family : Order #: [id number] CLICK HERE [...] by: Willard Sharma MD on 09/07/2022 at 13:04[facility] LimaVC EXT VENOUS LT LIMITEDon 52-84-7292ZR EXT VENOUS LT LIMITEDPatient: MIKY FUENTES Exam Date: 09/07/2022 : 1950 Gender:F Ordering : DR WILLARD SHARMA M.D. Admission #: [id number] Family : Order #: [id number] CLICK HERE TO VIEW EXAM RADIOLOGY REPORT [...] by: Willard Sharma MD on 09/07/2022 at 11:59NoLakeHealth [facility] AUTO DIFFon 39-66-0373MEVE #0.0 103/ulNormal0.0-0.1[facility] Medical CenterComment on above:Performed By: #### CBC #### [facility] [address] [place] [address] Dr. Encarnacion ChangBasophils/100 WBC (Bld)0.6 %Normal0.2-2.0[facility] Comment on above:Performed By: #### CBC #### [facility] [address] [place] [address] Dr. Alysha Andre #0.3 103/ulNormal0.0-0.7The [facility] Medical CenterComment on above: Performed By: #### CBC #### [facility] [address] [place] [address] Dr. Alysha Cotterosinophils/100 WBC (Bld)4.3 %Normal0.9-7.0[facility] Comment on above:Performed By: #### CBC #### [facility] [address] [place] [address] Dr. Alysha Cotterrythrocyte distribution width (RBC) [Ratio]14.6 %Jcxslp45.0-15.0 The [facility] Medical CenterComment on above:Performed By: #### CBC #### [facility] [address] [place] [address] Dr. Alysha MachucaHematocrit (Bld) [Volume fraction]39.7 %Bpxqmp18.0-48.0The [facility] CenterComment on above:Performed By: #### CBC #### [facility] [address] [place] [address] Dr. Alysha MachucaHemoglobin (Bld) [Mass/Vol]13.1 g/xHTbhrsp31.0-16.0The [facility] CenterComment on above:Performed By: #### CBC #### [facility] [address] [place] [address] Dr. Alysha MachucaIG #0.01 10e3/ulNormal0.00-0.03The [facility] CenterComment on above:Performed By: #### CBC #### [facility] [address] [place] [address] Dr. Alysha MachucaIG %0.2 %Normal0.0-0.5The [facility] Medical CenterComment on above: Performed By: #### CBC #### [facility] [address] [place] [address] Dr. Alysha Meek #1.9 103/ulNormal1.2-3.8The [facility] CenterComment on above:Performed By: #### CBC #### [facility] [address] [place] [address] Dr. Alysha Chidlsmphocytes/100 WBC (Bld)29.5 %Hyoxfd48.5-60.0The [facility] Medical CenterComment on above:Performed By: #### CBC #### [facility] [address] [place] [address] Dr. Alysha MachucaMANUAL DIFF REQNONormalThe [facility] Medical CenterComment on above: Performed By: #### CBC #### [facility] [address] [place] [address] Dr. Alysha Stanford (RBC) [Entitic mass]29.8 cbYiaxpv62.7-34.0The [facility] Medical CenterComment on above:Performed By: #### CBC #### [facility] [address] [place] [address] Dr. Alysha ValladaresHC (RBC) [Mass/Vol]33.0 g/uANnzzyv30.9-35.2The [facility] CenterComment on above:Performed By: #### CBC #### [facility] [address] [place] [address] Dr. Alysha ValladaresV (RBC) [Entitic vol]90.2 yOMtammz68.0-99.0The [facility] Medical CenterComment on above:Performed By: #### CBC #### [facility] [address] [place] [address] Dr. Alysha Bender #0.5 103/ulNormal0.3-0.8The [facility] Medical CenterComment on above:Performed By: #### CBC #### [facility] [address] [place] [address] Dr. Alysha Lambocytes/100 WBC (Bld)7.0 %Normal1.7-12.0The [facility] Comment on above:Performed By: #### CBC #### [facility] [address] [place] [address] Dr. Alysha Naranjo #3.8 103/ulNormal1.4-6.5The [facility] Medical CenterComment on above:Performed By: #### CBC #### [facility] [address] [place] [address] Dr. Alysha Oneillutrophils/100 WBC (Bld)58.4 %Adqfvo59.0-75.0The [facility] Medical CenterComment on above:Performed By: #### CBC #### [facility] [address] [place] [address] Dr. Alysha Gundersonlet mean volume (Bld) [Entitic vol]9.5 fLNormal9.5-13.5The [facility] Medical CenterComment on above:Performed By: #### CBC #### [facility] [address] [place] [address] Dr. Alysha MachucaPLT235 103/sqDosnil533-621Blp [facility] CenterComment on above: Performed By: #### CBC #### [facility] [address] [address] [address] Alysha MachucaRBC4.40 106/ulNormal4.20-5.40The [facility] Medical CenterComment on above:Performed By: #### CBC #### [facility] [address] [address] [address] Alysha MachucaWBC6.6 103/ulNormal4.0-11.0The [facility] Medical CenterComment on above: Performed By: #### CBC #### [facility] [address] [address] [address] Alysha MachucaPROF CHEM 8 (BAS METB)on 69-04-5791Jmmap gap [Moles/Vol]7.7 mmol/LNormalThe [facility] Medical CenterComment on above:Performed By: #### BMP ####[facility] [address] [address]Dr. Alysha ChangCalcium [Mass/Vol]9.8 mg/dLNormal8.5-10.1The [facility] CenterComment on above:Performed By: #### BMP ####[facility] Incpxutzls[address] [address]Dr.Alysha ChangChloride [Moles/Vol]104 mmol/LNormal 98-107The [facility] CenterComment on above:Performed By: #### BMP ####[facility] [address] [address]Dr.Alysha ChangCO2 [Moles/Vol]29.2 mmol/TVlxkwt60.0-32.0The [facility] Medical CenterComment on above: Performed By: #### BMP ####[facility] [address] [address]Dr.Alysha ChangCreatinine [Mass/Vol]1.05 mg/dL Critically high0.55-1.02The [facility] Medical CenterComment on above:Performed By: #### BMP ####[facility] [address] [address]Dr.Traceelan ChangEGFR-AF NORTHER[place] IRISH>60Normal>=60The [facility] Medical CenterComment on above:Performed By: #### BMP ####[facility] [address] [address]Dr.Yilan ChangEGFR-NON AF IKLEWMGW02 mL/min/1.73m2 Critically low>=60The [facility] Medical CenterComment on above:Performed By: #### BMP ####[facility] [address] [address]Dr. Yilan ChangGlucose [Mass/Vol]107 mg/dLCritically cocl38-472Ubn [facility] Comment on above:Performed By: #### BMP ####[facility] [address] [place], [place] [address]Dr.Yilan ChangPotassium [Moles/Vol]3.9 mmol/LNormal3.5-5.1The [facility] Medical CenterComment on above:Performed By: #### BMP ####[facility] [address] [place], [place] [address]Dr. Yilan ChangSodium [Moles/Vol]137 mmol/RWopodb022-630Ccc [facility] CenterComment on above:Performed By: #### BMP ####[facility] [address] [place], [place] [address]Dr.Yilan ChangUrea nitrogen [Mass/Vol]16.0 mg/dLNormal 7.0-18.0The [facility] CenterComment on above:Performed By: #### BMP ####[facility] [address] [place], [place] [address]Dr. Yilan ChangUrea nitrogen/Creatinine [Mass ratio]15.2 mg/mgNormalThe [facility] CenterComment on above:Performed By: #### BMP ####[facility] [address] [place], [place] [address]Dr.Yilan ChangVC INJ FOAM SCLERO W US MLTIon 44-76-0669NW INJ FOAM SCLERO W US MLTIPatient: MIKY FUENTES Exam Date: 08/31/2022 : 1950 Gender:F Ordering : DR WILLARD SHARMA M.D. Admission #: [id number] Family : Order #: [id number] CLICK HERE TO VIEW EXAM RADIOLOGY REPORT [...] week, wear compressi (more content not included)... [facility] LimaVC CONSULT FOLLOWUPon 25-31-9857AL CONSULT FOLLOWUP Patient: MIKY FUENTES Exam Date: 08/22/2022 : 1950 Gender:F Ordering : DR WILLARD SHARMA M.D. Admission #: [id number] Family : Order #: [id number] CLICK HERE TO VIEW EXAM RADIOLOGY REPORT [...] by: Willard Sharma MD on 08/22/2022 at 10:45[facility] LimaVC EXT VENOUS RT LIMITEDon 99-24-5901TF EXT VENOUS RT LIMITEDPatient: MIKY FUENTES Exam Date: 08/22/2022 : 1950 Gender:F Ordering : DR WILLARD SHARMA M.D. Admission #: [id number] Family : Order #: [id number] CLICK HERE TO VIEW EXAM RADIOLOGY REPORT [...] by: Willard Sharma MD on 08/22/2022 at 10:21[facility] LimaVC INJ FOAM SCLERO W US MLTIon 48-10-7584JA INJ FOAM SCLERO W US MLTIPatient: MIKY FUENTES Exam Date: 08/17/2022 : 1950 Gender:F Ordering : DR WILLARD SHARMA M.D. Admission #: [id number] Family : Order #: [id number] CLICK HERE TO VIEW EXAM RADIOLOGY REPORT [...] to take (more content not included)...Normal The [facility] CenterVC CONSULT FOLLOWUPon 11-15-7593TE CONSULT FOLLOWUPPatient: MIKY FUENTES Exam Date: 08/07/2022 : 1950 Gender:F Ordering : DR WILLARD SHARMA M.D. Admission #: [id number] Family : Order #: [id number] CLICK HERE TO VIEW EXAM RADIOLOGY REPORT [...] by: Willard Sharma MD on 08/07/2022 at 13:31[facility] LimaVC EXT VENOUS LT LIMITEDon 51-30-2924BS EXT VENOUS LT LIMITEDPatient: MIKY FUENTES Exam Date: 08/07/2022 : 1950 Gender:F Ordering : DR WILLARD SHARMA M.D. Admission #: [id number] Family : Order #: [id number] CLICK HERE TO VIEW EXAM RADIOLOGY REPORT [...] by: Willard Sharma MD on 08/07/2022 at 12:01[facility] LimaVC INJ FOAM SCLERO W US MLTIon 16-43-9279UC INJ FOAM SCLERO W US MLTIPatient: MIKY FUENTES Exam Date: 08/01/2022 : 1950 Gender:F Ordering : DR WILLARD SHARMA M.D. Admission #: [id number] Family : Order #: [id number] CLICK HERE TO VIEW EXAM RADIOLOGY REPORT [...] week, wear compr (more content not included)... [facility]imaVC CONSULT FOLLOWUPon 54-90-8989OA CONSULT FOLLOWUP Patient: MIKY FUENTES Exam Date: 07/17/2022 : 1950 Gender:F Ordering : DR WILLARD SHARMA M.D. Admission #: [id number] Family : Order #: [id number] CLICK HERE TO VIEW EXAM RADIOLOGY REPORT [...] by: Kyle Cheney M.D. on 07/17/2022 at 12:18[facility] LimaVC EXT VENOUS RT LIMITEDon 14-60-6183ZN EXT VENOUS RT LIMITEDPatient: MIKY FUENTES Exam Date: 07/17/2022 : 1950 Gender:F Ordering : DR WILLARD SHARMA M.D. Admission #: [id number] Family : Order #: [id number] CLICK HERE TO VIEW EXAM RADIOLOGY REPORT [...] by: Kyle Cheney M.D. on 07/17/2022 at 12:14[facility]imaVC INJ FOAM SCLERO W US MLTIon 63-76-0542CJ INJ FOAM SCLERO W US MLTI Patient: MIKY FUENTES Exam Date: 07/12/2022 : 1950 Gender:F Ordering : DR WILLARD SHARMA M.D. Admission #: [id number] Family : Order #: [id number] CLICK HERE TO VIEW EXAM RADIOLOGY REPORT [...] walk da (more content not included)...Normal The [facility] CenterVC CONSULT FOLLOWUPon 87-14-6454ZN CONSULT FOLLOWUPPatient: MIKY FUENTES Exam Date: 06/30/2022 : 1950 Gender:F Ordering : DR WILLARD SHARMA M.D. Admission #: [id number] Family : Order #: [id number] CLICK HERE TO VIEW EXAM RADIOLOGY REPORT [...] by: Willard Sharma MD on 06/30/2022 at 13:21[facility] LimaVC EXT VENOUS LT LIMITEDon 54-42-3033VR EXT VENOUS LT LIMITEDPatient: MIKY FUENTES Exam Date: 06/30/2022 : 1950 Gender:F Ordering : DR WILLARD SHARMA M.D. Admission #: [id number] Family : Order #: [id number] CLICK HERE TO VIEW EXAM RADIOLOGY REPORT [...] by: Willard Sharma MD on 06/30/2022 at 13:02[facility] ALBUMIN, RANDOM URINE W/CREATININEon 81-51-2203NSGDWSN, URINE12.7 mg/dLNormalSee Note:Quest DiagnosticsComment on above:Result Comment: Reference Range: Reference Range Not establishedPerformed By: #### 7600, 496, 84801, 6517 #### [facility] [address], [address] [place] [address] [employer]: Marek Subramanian MDALBUMIN/CREATININE RATIO, RANDOM URINE62 mcg/mg [...] a diagnostic category.Performed By: #### 7600, 496, 03858, 6517 #### [facility] [place] [address] [employer]: Marek Subramanian MDCreatinine (U) [Mass/Vol]205 mg/pOOrdgua16-255 [facility] DiagnosticsComment on above:Performed By: #### 7600, 496, 07357, 6517 #### [facility] [place] [address] [employer]: Marek LINARESOMPREHENSIVE METABOLIC PANEL 06-26-2022 Albumin [Mass/Vol]3.9 g/dLNormal3.6-5.1Quest DiagnosticsComment on above: Performed By: #### 7600, 496, 81508, 6517 #### [facility] [place] [address] [employer]: Marek Subramanian MDAlbumin/Globulin [Mass ratio]1.4 {ratio}Normal 1.0-2.5Quest DiagnosticsComment on above:Performed By: #### 7600, 496, 49533, 6517 #### [facility] [place] [address] [employer]: Marek Subramanian MDALP [Catalytic activity/Vol]106 U/LNormal 37-153Quest DiagnosticsComment on above:Performed By: #### 7600, 496, 97195, 6517 #### [facility] of [address], [address] [place] [address] [employer]: Marek Subramanian MDALT [Catalytic activity/Vol]10 U/LNormal6-29 [facility] DiagnosticsComment on above:Performed By: #### 7600, 496, 64415, 6517 #### [facility] of [address], [address] [place] [address] [employer]: Marek Subramanian MDAST [Catalytic activity/Vol]13 U/KExqpif06-82 [facility] DiagnosticsComment on above:Performed By: #### 7600, 496, 06497, 6517 #### [facility] of [address], [address] [place] [address] [employer]: Marek Subramanian MDBilirubin [Mass/Vol]0.8 mg/dLNormal0.2-1.2 [facility] DiagnosticsComment on above:Performed By: #### 7600, 496, 89301, 6517 #### [facility] of [place] [address] [employer]: Marek Subramanian MDBUN/CREATININE RATIONOT APPLICABLENormal6-22 Quest DiagnosticsComment on above:Performed By: #### 7600, 496, 39945, 6517 #### [facility] of [place] [address] [employer]: Marek Subramanian MDCalcium [Mass/Vol]9.9 mg/dLNormal8.6-10.4Quest DiagnosticsComment on above:Performed By: #### 7600, 496, 44953, 6517 #### [facility] of [address], [address] [place] [address] [employer]: Marek Subramanian MDChloride [Moles/Vol]109 mmol/TJcifzo10-931 Quest DiagnosticsComment on above:Performed By: #### 7600, 496, 98574, 6517 #### [facility] [address], [address] [place] [address] [employer]: Marek Subramanian MDCO2 [Moles/Vol]24 mmol/DIusvwn67-88Lywbm DiagnosticsComment on above:Performed By: #### 7600, 496, 79773, 6517 #### [facility] [address], [address] [place] [address] [employer]: Marek LINARESreatinine [Mass/Vol]0.88 mg/dLNormal0.60-1.00 [facility] DiagnosticsComment on above:Performed By: #### 7600, 496, 71417, 6517 #### [facility] [address], [address] [place] [address] [employer]: Marek Subramanian MDGFR/1.73 sq M.predicted among non-blacks MDRD (S/P/Bld) [Vol rate/Area]70 mL/min/{1.73_m2}Normal> OR = 60[facility] Comment on above:Result Comment: The eGFR is based on the CKD-EPI 2020 equation. To calculate the new eGFR from a previous Creatinine or Cystatin C result, go to https://www.kidney.org/professionals/ kdoqi/gfr%5FcalculatorPerformed By: #### 7600, 496, 58258, 6517 #### [facility] [place] [address] [employer]: Marek Subramanian MDGlobulin (S) [Mass/Vol]2.7 g/dLNormal1.9-3.7 Quest DiagnosticsComment on above:Performed By: #### 7600, 496, 88795, 6517 #### [facility] [address], [address] [place] [address] [employer]: Marek Subramanian MDGlucose [Mass/Vol]91 mg/tCNecncp20-71Nrynf DiagnosticsComment on above:Result Comment: Fasting reference intervalPerformed By: #### 7600, 496, 59791, 6517 #### [facility] [place] [address] [employer]: Marek Subramanian MDPotassium [Moles/Vol]4.0 mmol/LNormal3.5-5.3 Quest DiagnosticsComment on above:Performed By: #### 7600, 496, 24127, 6517 #### [facility] [place] [address] [employer]: Marek Subramanian MDProtein [Mass/Vol]6.6 g/dLNormal6.1-8.1Quest DiagnosticsComment on above:Performed By: #### 7600, 496, 53029, 6517 #### [facility] [place] [address] [employer]: Marek Subramanian MDSodium [Moles/Vol]143 mmol/TTcnpkc133-771Jwzpz DiagnosticsComment on above:Performed By: #### 7600, 496, 93728, 6517 #### [facility] [place] [address] [employer]: Marek Subramanian MDUrea nitrogen [Mass/Vol]15 mg/dLNormal7-25 Quest DiagnosticsComment on above:Performed By: #### 7600, 496, 20380, 6517 #### [facility] [place] [address] [employer]: Marek Subramanian MDHEMOGLOBIN A1con 18-80-7358TLOADKJKYY A1c5.3 % of total HgbNormal<5.7Quest DiagnosticsComment on [...] diagnosis of diabetes in children. According to [place] Diabetes Association (ADA) guidelines, hemoglobin A1c <7.0% represents optimal control in non- diabetic patients. Different metrics may apply to specific patient populations. Standards of Medical Care in Diabetes(ADA).Performed By: #### 7600, 496, 53457, 6517 #### [facility] [address], [address] [place] [address] [employer]: Marek Subramanian MDLIPID PANEL, STANDARD 33-08-9845Ztjywhgxjav [Mass/Vol]171 mg/dLNormal<200Quest DiagnosticsComment on above:Order Comment: FASTING:YES FASTING: YESPerformed By: #### 7600, 496, 05098, 6517 #### [facility] [address], [address] [place] [address] [employer]: Marek Subramanian MDCholesterol in HDL [Mass/Vol]60 mg/dLNormal> OR = 50Quest DiagnosticsComment on above:Order Comment: FASTING:YES FASTING: YESPerformed By: #### 7600, 496, 26054, 6517 #### [facility] [address], [address] [place] [address] [employer]: Marek Subramanian MDCholesterol in LDL [Mass/Vol]92 mg/dLNormal [...] LDL-C. Nikita RUSSELL et al. LEWIS. 2013;310(19): 7256-0057 (http://education.Rounds.TeliApp/faq/CWR663)Performed By: #### 7600, 496, 47881, 6517 #### [facility] [address], [address] [place] [address] [employer]: Marek LINARESholesterol.total/Cholesterol in HDL [Mass ratio]2.9 {ratio}Normal<5.0Quest DiagnosticsComment on above:Order Comment: FASTING:YES FASTING: YESPerformed By: #### 7600, 496, 76778, 6517 #### [facility] [address], [address] [place] [address] [employer]: Marek VALADEZ HDL PUDSAUOBKFO030 mg/dL (calc)Normal<130 Quest DiagnosticsComment on above:Order Comment: FASTING:YES FASTING: YESResult Comment: For patients with diabetes plus 1 major ASCVD risk factor, treating to a non-HDL-C goal of <100 mg/dL (LDL-C of <70 mg/dL) is considered a therapeutic option.Performed By: #### 7600, 496, 31224, 6517 #### [facility] [address], [address] [place] [address] [employer]: Marek Subramanian MDTriglyceride [Mass/Vol]95 mg/dLNormal<150Quest DiagnosticsComment on above:Order Comment: FASTING:YES FASTING: YESPerformed By: #### 7600, 496, 19212, 6517 #### [facility] [address], [address] [place] [address] [employer]: Marek Subramanian MDVC INJ FOAM SCLERO W US MLTIon 58-84-3244DZ INJ FOAM SCLERO W US MLTIPatient: MIKY FUENTES Exam Date: 06/26/2022 : 1950 Gender:F Ordering : DR WILLARD SHARMA M.D. Admission #: [id number] Family : Order #: [id number] CLICK HERE TO VIEW EXAM RADIOLOGY REPORT [...] vein medial distal lower leg/ankle. A large postbed stitcher vein was occluded with manual pressure until [...] the treated superficial varices, (more content not included)...[facility] CONSULT FOLLOWUPon 78-67-2016IJ CONSULT FOLLOWUPPatient: MIKY FUENTES Exam Date: 06/19/2022 : 1950 Gender:F Ordering : DR WILLARD SHARMA M.D. Admission #: [id number] Family : Order #: [id number] CLICK HERE TO VIEW EXAM RADIOLOGY REPORT [...] by: Kyle Cheney M.D. on 06/19/2022 at 12:14[facility] LimaVC EXT VENOUS RT LIMITEDon 00-60-5726OF EXT VENOUS RT LIMITEDPatient: MIKY FUENTES Exam Date: 06/19/2022 : 1950 Gender:F Ordering : DR WILLARD SHARMA M.D. Admission #: [id number] Family : Order #: [id number] CLICK HERE TO VIEW EXAM RADIOLOGY REPORT [...] by: Kyle Cheney M.D. on 06/19/2022 at 12:11[facility] LimaVC INJ FOAM SCLERO W US MLTIon 99-26-8923DK INJ FOAM SCLERO W US MLTI Patient: MIKY FUENTES Exam Date: 06/13/2022 : 1950 Gender:F Ordering : DR WILLARD SHARMA M.D. Admission #: [id number] Family : Order #: [id number] CLICK HERE TO VIEW EXAM CORRECTION made [...] by: Kyle Cheney M.D. on 06/19/2022 at 12:17[facility] LimaVC CONSULT FOLLOWUPon 46-18-1999CM CONSULT FOLLOWUPPatient: MIKY FUENTES Exam Date: 05/31/2022 : 1950 Gender:F Ordering : DR WILLARD SHARMA M.D. Admission #: [id number] Family : Order #: [id number] CLICK HERE TO VIEW EXAM RADIOLOGY REPORT [...] by: Kyle Cheney M.D. on 05/31/2022 at 12:18[facility] LimaVC EXT VENOUS LT LIMITEDon 93-39-5918BM EXT VENOUS LT LIMITEDPatient: MIKY FUENTES Exam Date: 05/31/2022 : 1950 Gender:F Ordering : DR WILLARD SHARMA M.D. Admission #: [id number] Family : Order #: [id number] CLICK HERE TO VIEW EXAM RADIOLOGY REPORT [...] by: Kyle Cheney M.D. on 05/31/2022 at 12:13[facility] LimaCT ABD/PELVIS WO CONon 72-16-6265KI ABD/PELVIS WO CONEXAMINATION: CT ABD/PELVIS WO CON, [...] Electronically authenticated by: SANTHOSH NICK Date: 2022-05-26 16:[address] [place], [place] [address]VC ENDOVENOUS ABL 1ST V LTon 04-11-9282NE ENDOVENOUS ABL 1ST V LTPatient: MIKY FUENTES Exam Date: 05/23/2022 : 1950 Gender:F Ordering : DR WILLARD SHARMA M.D. Admission #: [id number] Family : Order #: [id number] CLICK HERE TO VIEW EXAM RADIOLOGY REPORT [...] by: Kyle Cheney M.D. on 05/23/2022 at 12:34[facility] LimaUS KIDNEYSon 56-58-3541NA KIDNEYSEXAMINATION: US KIDNEYS HISTORY: Abdulkadir hematuria COMPARISON: [...] Electronically authenticated by: WILLARD SHARMA Date: 2022-05-05 13:29[facility] LimaXR KUB 1 VIEWon 75-61-4403AU KUB 1 VIEWEXAMINATION: XR KUB 1 VIEW [...] Electronically authenticated by: KYLE CHENEY Date: 2022-05-05 15:54[facility] LimaMG MAMM SCREEN 3D TANMAY CADon 83-70-6463SK MAMM SCREEN 3D TANMAY CAD Patient: MIKY FUENTES Exam Date: 05/04/2022 : 1950 Gender:F Ordering : DR CONNOR ANAYA Admission #: [id number] Family : Order #: [id number] CLICK HERE TO VIEW EXAM RADIOLOGY REPORT [...] colon cancer at age 60. LOCATION: [facility] BREAST COMPOSITION: Scattered areas fibroglandular [...] by: Kyle Cheney M.D. on 05/05/2022 at 14:21[facility]imaVC CONSULT FOLLOWUPon 52-44-4327DR CONSULT FOLLOWUPPatient: MIKY FUENTES Exam Date: 05/04/2022 : 1950 Gender:F Ordering : DR WILLARD SHARMA M.D. Admission #: [id number] Family : Order #: [id number] CLICK HERE TO VIEW EXAM RADIOLOGY REPORT [...] by: Kyle Cheney M.D. on 05/04/2022 at 11:43[facility]imaVC EXT VENOUS RT LIMITEDon 05-94-3292QP EXT VENOUS RT LIMITEDPatient: MIKY FUENTES Exam Date: 05/04/2022 : 1950 Gender:F Ordering : DR WILLARD SHARMA M.D. Admission #: [id number] Family : Order #: [id number] CLICK HERE TO VIEW EXAM RADIOLOGY REPORT [...] by: Kyle Cheney M.D. on 05/04/2022 at 11:17[facility] LimaCULTURE URINEon 88-52-8562RWFOHQK URINECulture Observations: LIGHT GROWTH OF MIXED GENITAL LUDWIN. NO POTENTIAL PATHOGENS SEEN.NormalUniversity Hospitals Lake West Medical CenterComment on above:Performed By: #### URCX ####[facility] [address] [place] [address]Dr. Alysha Preciado RANDOMon 01-48-5297Hqxboxjua Ql (U)NegativeNormalNEGATIVEUniversity Hospitals Lake West Medical CenterComment on above:Performed By: #### UA #### [facility] [address] [place] [address] [address] Alysha MachucaClhayde (U)TURBIDAbnormalCLEARThLancaster Municipal HospitalComment on above:Performed By: #### UA #### [facility] [address] [place] [address] [address] Alysha [place] ()REDAbnormalYELLOWUniversity Hospitals Lake West Medical CenterComment on above: Result Comment: Previously reported as: YELLOW On 05/03/2022 17:30 By CV2 Performed By: #### UA #### [facility] [address] [place] [address] [address] Alysha MachucaGlucose Ql (U)NegativeNormalNEGATIVEUniversity Hospitals Lake West Medical CenterComment on above:Performed By: #### UA #### [facility] [address] [place] [address] [address] Alysha MachucaHemoglobin Ql (U)LARGEAbnormalNEGSycamore Medical Center Comment on above:Performed By: #### UA #### [facility] [address] [place] [address] [address] Alysha MachucaKetones Ql (U)NegativeNormalNEGATIVEUniversity Hospitals Lake West Medical CenterComment on above:Performed By: #### UA #### [facility] [address] [place] [address] Dr. Alysha MachucaLEUKOCYTESNegativeNormalNEGATIVEThe [facility] Medical CenterComment on above:Performed By: #### UA #### [facility] [address] [place] [address] [address] Alysha MachucaNitrite Ql (U)NegativeNormalNEGATIVEThe [facility]view Medical CenterComment on above:Performed By: #### UA #### [facility] [address] [place] [address] Dr. Alysha MachucapH (U)6.0 [pH]Normal5-9The [facility] Medical CenterComment on above: Performed By: #### UA #### [facility] [address] [place] [address] Dr. Alysha MachucaSPEC GRAVITY1.018Kutuqk8.005-<=1.025The [facility] Medical CenterComment on above:Performed By: #### UA #### [facility] [address] [place] [address] Dr. Alysha Preciado NMCDUXK597 mg/dlAbnormalNEGATIVE/ TRACEThe [facility] Comment on above:Performed By: #### UA #### [facility] [address] [place] [address] Dr. Alysha MachucaUrobilinogen Qn (U)0.2 {Luis'U}/dLNormal0.2 - 1.0The [facility] CenterComment on above:Performed By: #### UA #### [facility] [address] [place] [address] Dr. Alysha MachucaVC ENDOVENOUS ABL 1ST V RTon 20-76-7124ZL ENDOVENOUS ABL 1ST V RT Patient: MIKY FUENTES Exam Date: 04/26/2022 : 1950 Gender:F Ordering : DR WILLARD SHARMA M.D. Admission #: [id number] Family : Order #: [id number] CLICK HERE TO VIEW EXAM RADIOLOGY REPORT [...] by: Willard Sharma MD on 04/26/2022 at 10:58[facility]imaVC CONSULT FOLLOWUPon 87-50-0435QD CONSULT FOLLOWUPPatient: MIKY FUENTES Exam Date: 04/13/2022 : 1950 Gender:F Ordering : DR WILLARD SHAMRA M.D. Admission #: [id number] Family : Order #: [id number] CLICK HERE TO VIEW EXAM RADIOLOGY REPORT [...] by: Kyle Cheney M.D. on 04/13/2022 at 10:59[facility] LimaVC EXT VENOUS LT LIMITEDon 10-55-0553XX EXT VENOUS LT LIMITEDPatient: MIKY FUENTES Exam Date: 04/13/2022 : 1950 Gender:F Ordering : DR WILLARD SHARMA M.D. Admission #: [id number] Family : Order #: [id number] CLICK HERE TO VIEW EXAM RADIOLOGY REPORT [...] by: Kyle Cheney M.D. on 04/13/2022 at 10:56[facility] LimaOffice Visit (Cardiology)on 89-50-4997Mduwef-up visitDiagnoses/Problems Assessed Non-ischemic cardiomyopathy (425.4) (I42.8) Hyperlipidemia [...] a smoker Tobacco Use Screening; Status:Complete; Done: 99Ovr1280 Patient Instructions By signing my name below, [...] failure. With guideline directed therapy in the anglican of maintenance of sinus rhythm her symptoms [...] Oral TabletTake 1 tablet twice a day [place] 3 [place] DIRECTED. Tylenol Arthritis Ext Relief [...] Signs Recorded: 22Mar2022 02:06PM Heart Rate47, Apical Xmchcikd058, RUE, Sitting Vcljeuelu32, RUE, Sitting Height5 ft 5 in Wlmhtx218 lb 6.4 oz BMI Cpcsmwsqzw96.17 kg/m2 BSA Calculated2.19 Tobacco Useb) No PHQ-2 [...] murmurs (more content not included)...NormalUH TouchworksTobacco Screening.on 90-79-6137Tldmv depression screening assessmentNoWillapa Harbor Hospital ClinicalBox 250 DO Work Phone: Fall risk assessmenta) No falls within the last year [facility] [employer] 250 DO Work Phone: Tobacco use status CPHSb) NoMP-[facility] [place] 250 DO Work Phone: vc ENDOVENOUS ABL PERFORATING LTon 98-97-0159NP ENDOVENOUS ABL PERFORATING LTPatient: MIKY FUENTES Exam Date: 03/22/2022 : 1950 Gender:F Ordering : DR WILLARD SHARMA M.D. Admission #: [id number] Family : Order #: [id number] CLICK HERE TO VIEW EXAM RADIOLOGY REPORT PROCEDURE: VEIN CENTER ENDOVENOUS ABLATION VEIN LEFT LEG COMPARISON: None. INDICATIONS: Pain co-occurrent and due to varicose veins of bilateral legs I83.813 OPERATIVE REPORT: Diagnosis: Superficial venous reflux, incompetent perforating veins Procedure: Endovenous laser ablation of the left postbed stitcher(s) Procedure: The patient was positioned supine on [...] Willard Sharma MD (more content not included)...NormalThe [facility] SCREEN, IFA, W/REFL TITER/PATTERN (REFL)on 21-22-3829ZVF SCREEN, IFA PositiveAbnormalNEGATIVEQuest DiagnosticsComment on above:Result Comment: KAL IFA is a first line screen for detecting the presence of up to approximately 150 autoantibodies in various autoimmune diseases. A positive KAL IFA result is suggestive of autoimmune disease and reflexes to titer and pattern. Further laboratory testing may be considered if clinically indicated. For additional information, please refer to http://education.Enovex/faq/SLF147 (This link is being provided for informational/ educational purposes only.)Performed By: #### 809, 8268, 4420, 55405, %[id number] #### [facility] [address], [address] [place], [place] [address] [employer]er: Marek Subramanian MDANTINUCLEAR ANTIBODIES TITER AND PATTERNon 63-77-2250XBB PATTERNNuclear, CentromereAbnormalQuest DiagnosticsComment on above:Result Comment: Centromere pattern is associated with limited cutaneous systemic sclerosis, CREST (Calcinosis, Raynaud's, Esophageal dysmotility, Sclerodactyly, Telangiectasia), primary biliary cholangitis (PBC), and other autoimmune diseases. AC-3: Centromere International Consensus on KAL Patterns (https://doi.org/10.1515/qtwh-1970-4572)Performed By: #### 809, 8268, 4420, 99917, %92201 #### [facility] [address], [address] [place] [address] [employer]: Marek MARCELO PATTERNNuclear, HomogeneousAbnormalQuest DiagnosticsComment on above:Result Comment: Homogeneous pattern is associated with systemic lupus erythematosus (SLE), drug-induced lupus and juvenile idiopathic arthritis. AC-1: Homogeneous International Consensus on KAL Patterns (https://doi.org/10.1515/pwoe-3852-1050)Performed By: #### 809, 8268, 4420, 66457, %56624 #### [facility] [place] [address] [employer]: Marek Subramanian MDANA TITER> OR = 1:1280AbnormalQuest DiagnosticsComment on above:Result Comment: Reference Range <1:40 Negative 1:40-1:80 Low Antibody Level >1:80 Elevated Antibody LevelPerformed By: #### 809, 8268, 4420, 84840, %80598 #### [facility] [place] [address] [employer]: Marek Subramanian MDANA TITER1:80HighQuest DiagnosticsComment on above:Result Comment: A low level KAL titer may be present in pre-clinical autoimmune diseases and normal individuals. Reference Range <1:40 Negative 1:40-1:80 Low Antibody Level >1:80 Elevated Antibody LevelPerformed By: #### 809, 8268, 4420, 71310, %43514 #### [facility] [place] [address] [employer]: Marek Subramanian MDC-REACTIVE PROTEINon 62-18-5098NCS [Mass/Vol] 13.4 mg/LHigh<8.0Quest DiagnosticsComment on above:Performed By: #### 809, 8268, 4420, 55783, %25042 #### [facility] [place] [address] [employer]: Marek Subramanian MDRHEUMATOID ARTHRITIS DIAGNOSTIC PANEL 1on 54-81-9293NTBCFD CITRULLINATED PEPTIDE (CCP) AB (IGG)<16NormalQuest [facility]ostics Comment on above:Result Comment: Reference Range Negative: <20 Weak Positive: 20-39 Moderate Positive: 40-59 Strong Positive: >59Performed By: #### 809, 8268, 4420, 57904, %91191 #### [facility] [place] [address] [place] [address] [employer]: Marek Subramanian MDINTERPRETATIONNormalQuest DiagnosticsComment on above:Result Comment: These serologic results may be found in 10-20% of patients with polyarthritis that is clinically and radiologically indistinguishable from RA.Performed By: #### 809, 8268, 4420, 79564, %74508 #### [facility] of [address], [address] [place] [address] [employer] S[employer]er: Marek Subramanian MDRHEUMATOID FACTOR<14Normal<14[facility] Comment on above:Performed By: #### 809, 8268, 4420, 71708, %07918 #### [facility] of [address], [address] [place] [address] [employer] S[employer]: Marek Subramanian MDSED RATE BY MODIFIED WESTERGRENon 10-01-2021 SED RATE BY MODIFIED AHBRBLOWKN06 mm/hHigh< OR = 30Quest DiagnosticsComment on above:Performed By: #### 809, 8268, 4420, 93968, %90474 #### [facility] of [address], [address] [place] [address] [employer]: Marek Subramanian MDTobacco Screening.on 01-35-3840Drjx risk assessmenta) No falls within the last yearWillapa Harbor Hospital NComputing 600 DO Work Phone: Tobacco use status CPHSb) NoMWashington Rural Health Collaborative & [facility] Luma[employer] 600 DO Work Phone: Vital Signs Date TimeVital SignValuePerforming VesrlbjubJvnksbri11-87-5093 13:53-0400Body vxiaog532.56 cmDennis [place] DO Work Phone: [facility]10-06-2025 13:53-0400 Body mass index (BMI) [Ratio]32.8 kg/w1Odvcwg [place] DO Work Phone: [facility]10-06-2025 13:53-0400 Body brorbk99.63 kgDeneugenio Furlong DO Work Phone: [facility]10-06-2025 13:53-0400 Diastolic blood cprowsaf83 mm[Hg]Connor Furlong DO Work Phone: [facility]10-06-2025 13:53-0400 Heart rate87 /minDtheresais Furlong DO Work Phone: [facility]10-06-2025 13:53-0400 SaO2% (BldA) [Mass fraction]93 %Connor Lewislong DO Work Phone: [facility]10-06-2025 13:53-0400 Systolic blood mldqmitk819 mm[Hg]Connor Lewislong DO Work Phone: [facility]09-11-2025 10:02-0400 Body kblazr518 cmConnor Furlong DO Work Phone: [facility]09-11-2025 10:02-0400Body mass index (BMI) [Ratio]33.35 kg/e5Xshvnv Furlong DO Work Phone: [facility] [employer] Zwfpzf77-10-7097 10:02-0400Body nlhjsyuqlpp22.5 [degF]Connor Lewislong DO Work Phone: [facility] [employer] Egnpio21-34-4325 10:02-0400Body kphacd03.37 kgDeneugenio Furlong DO Work Phone: [facility] [employer] Jpvjar46-32-9103 10:02-0400Diastolic blood hoxaogay63 mm[Hg]Connor Furlong DO Work Phone: [facility]09-11-2025 10:02-0400Heart rate 69 /minDtheresais Furlong DO Work Phone: [facility]09-11-2025 10:02-0400 Respiratory rate18 /minDtheresais Furlong DO Work Phone: [facility] [employer] Vqbkns47-86-3484 10:02-3667CjE8% (BldA) [Mass fraction]99 %Connor Lewislong DO Work Phone: [facility]09-11-2025 10:02-0400Systolic blood fvmsyzub098 mm[Hg]Connor Lewislong DO Work Phone: [facility]07-29-2025 10:59-0400Body hvzecw492.2 cmJr. Timmyanic DO Work Phone: [facility] CenterTqoefztfsb96-69-3284 10:59-0400Body mass index (BMI) [Ratio]32.73 kg/m2Jr. Stepanic DO Work Phone: [facility] CenterIgoxvnqmyq27-60-0718 10:59-0400Body .8 kg Jr. Stepanic DO Work Phone: [facility] CenterSuzxutvqhm27-45-2327 11:48-0400Body kkdmoo680 cm Connor Tavaresng DO Work Phone: [facility] [employer] Fyrjed87-14-8049 11:48-0400Body mass index (BMI) [Ratio]35.26 kg/y3OujfkdConnor Lewislong DO Work Phone: [facility]06-09-2025 11:48-0400Body bmtfhayejai73.6 [degF]Connor Lewislong DO Work Phone: [facility]06-09-2025 11:48-0400Body sdlilp57.27 kgConnor Lewislong DO Work Phone: [facility]06-09-2025 11:48-0400Diastolic blood mm[Hg]Connor Lewislong DO Work Phone: [facility]06-09-2025 11:48-0400Heart rate 58 /minDennis Debbielong DO Work Phone: [facility]06-09-2025 11:48-0400 Respiratory rate20 /minDtheresais Debbielong DO Work Phone: [facility]06-09-2025 11:48-7922KiZ7% (BldA) [Mass fraction]97 %Connor Lewislong DO Work Phone: [facility] Nffwko27-46-6494 11:48-0400Systolic blood ppjwuwwl167 mm[Hg]Connor Tavaresng DO Work Phone: [facility] Dncdbw54-03-8664 10:54-0400Body hmmset515 cmConnor Tavaresng DO Work Phone: [facility]03-24-2025 10:54-0400Body mass index (BMI) [Ratio]35.4 kg/q8Hrkmojeugenio Tavaresng DO Work Phone: [facility]03-24-2025 10:54-0400Body xgaozeuwtey59.2 [degF]Connor Tavaresng DO Work Phone: [facility] Qfrahe50-35-3537 10:54-0400Body hddyay39.63 kgDeneugenio Tavaresng DO Work Phone: [facility] Phgiqx44-94-2523 10:54-0400Diastolic blood gbnvryja53 mm[Hg]Connor Tavaresng DO Work Phone: [facility]03-24-2025 10:54-0400Heart rate 60 /Nahid Lewislong DO Work Phone: [facility] Diigyt65-55-9631 10:54-0400 Respiratory rate18 /minDtheresais Debbielong DO Work Phone: [facility]03-24-2025 10:54-4199HbK5% (BldA) [Mass fraction]100 %Connor Tavaresng DO Work Phone: [facility] Center[facility]03-24-2025 10:54-0400Systolic blood qkrjywiz894 mm[Hg]Connor Tavaresng DO Work Phone: [facility]01-28-2025 15:25-0500Body qzyphs514 cmDennis Furlong DO Work Phone: [facility]01-28-2025 15:25-0500Body mass index (BMI) [Ratio]37.13 kg/h1Tpjjoe Furlong DO Work Phone: [facility]01-28-2025 15:25-0500Body .07 kgDennis Furlong DO Work Phone: [facility]01-28-2025 15:25-0500Diastolic blood qjbouvuv07 mm[Hg]Connor Furlong DO Work Phone: [facility]01-28-2025 15:25-0500Systolic blood jczupwvf279 mm[Hg]Connor Furlong DO Work Phone: [facility]01-07-2025 11:24-0500Body jlbmur051.1 cmJr. Stepanic DO Work Phone: [facility] CenterYknuziwdhb83-44-3810 11:24-0500Body mass index (BMI) [Ratio]34.81 kg/m2Jr. Stepanic DO Work Phone: [facility] CenterIvsnwsfvnq32-90-9731 11:24-0500Body pbtdux16.89 kgJr. Stepanic DO Work Phone: [facility] CenterAbpqckwvbp68-94-6673 08:40-0500Body hzejtd816.6 cmDennis Furlong DO Work Phone: [facility]12-16-2024 08:40-0500Body mass index (BMI) [Ratio]35.46 kg/j8Rskzmo Furlong DO Work Phone: [facility]12-16-2024 08:40-0500Body omemptgramu07.4 [degF]Connor Furlong DO Work Phone: [facility]12-16-2024 08:40-0500Body uvkkfc11.71 kgDennis Furlong DO Work Phone: [facility] Dextrys Uikxjv72-96-1173 08:40-0500Diastolic blood cnduxtbj22 mm[Hg]Connor Furlong DO Work Phone: [facility] [employer] Saajgp14-44-0634 08:40-0500Heart rate 60 /minDennis Furlong DO Work Phone: [facility] [employer] Njqfor55-53-4256 08:40-0500 Respiratory rate18 /minDennis Furlong DO Work Phone: [facility] [employer] Fhdpgp88-67-2076 08:40-0500Systolic blood mfjkupmq906 mm[Hg]Connor Furlong DO Work Phone: [facility]10-31-2024 10:39-0400Body wbtosr944.1 cmCarmen Lopez MD Work Phone: [facility]10-31-2024 10:39-0400 Body mass index (BMI) [Ratio]35.28 kg/p2SfwblpCarmen Lopez MD Work Phone: [phone])186-[address] [place], [place] 3343010-31-2024 10:39-0400 Body kkrqmo79.16 kgCarmen Lopez MD Work Phone: [address] [place], [place] [address]10-31-2024 10:39-0400 Diastolic blood kkjeqsaj72 mm[Hg]Carmen Lopez MD Work Phone: [phone](643)976-[address] [place], [place] 3343010-31-2024 10:39-0400 Heart rate56 /minCarmen Lopez MD Work Phone: [phone])694-[address] [place], [place] 3343010-31-2024 10:39-0400 Systolic blood clqlxqae311 mm[Hg]Carmen Lopez MD Work Phone: [facility]10-21-2024 10:47-0400 Body mvadfj226.6 cmDennis Furlong DO Work Phone: [facility]10-21-2024 10:47-0400Body mass index (BMI) [Ratio]36.22 kg/v3VkovycConnor Lewislong DO Work Phone: [facility]10-21-2024 10:47-0400Body fkyawmnkwtp37.39 [degF]Connor Tavaresng DO Work Phone: [facility]10-21-2024 10:47-0400Body ugqaqf31.71 kgConnor Lewislong DO Work Phone: [facility]10-21-2024 10:47-0400Diastolic blood gqsumeyh05 mm[Hg]Connor Tavaresng DO Work Phone: [facility] ParantezAbdnqm38-84-9527 10:47-0400Heart rate 64 /minDennis Chaitanyang DO Work Phone: [facility] ParantezXanata26-86-0292 10:47-0400Systolic blood mm[Hg]Connor Anaya DO Work Phone: [facility] [employer] Qudzls37-97-1913 14:59-0400Blood Pressure LocationAurora Orzech [facility]09-17-2024 14:59-0400Diastolic blood brfgkaar83 mm[Hg]Radha Orzech [facility]09-17-2024 14:59-0400Heart rate65 /minAurora Orzech [facility]09-17-2024 14:59-0400Systolic blood bknxolvu027 mm[Hg]Radha Orzech [facility]05-09-2024 09:31-0400Body .1 cmNick Richardson MD Work Phone: [facility]05-09-2024 09:31-0400 Body mass index (BMI) [Ratio]36.78 kg/x3QayngqyNick Richardson MD Work Phone: [facility]05-09-2024 09:31-0400 Body wrwryw756.25 kgNick Richardson MD Work Phone: [facility]05-09-2024 09:31-0400 Diastolic blood hqecgbqm27 mm[Hg]Nick Richardson MD Work Phone: [facility]05-09-2024 09:31-0400 Heart rate44 /minNick Richardson MD Work Phone: [facility]05-09-2024 09:31-0400 Systolic blood ezfswkfb205 mm[Hg]Nick Richardson MD Work Phone: [facility]04-22-2024 10:11-0400 Body oeqocw921.6 cmDeneugenio Lewislong DO Work Phone: [facility] Zycwug45-90-9687 10:11-0400Body mass index (BMI) [Ratio]37.25 kg/n2Mffpwd Furlong DO Work Phone: [facility] Pvkewz57-46-1790 10:11-0400Body onljnmbyicq31.81 [degF]Connor Lewislong DO Work Phone: [facility] Yaatpj33-03-1734 10:11-0400Body .43 kgDeneugenio Lewislong DO Work Phone: [facility] Hwppxo47-45-5973 10:11-0400Diastolic blood lyvvjtjj86 mm[Hg]Connor Lewislong DO Work Phone: [facility] Pbnwpk61-08-8143 10:11-0400Heart rate 55 /minDennis Debbielong DO Work Phone: [facility]04-22-2024 10:11-0400 Respiratory rate20 /minDennis Furlong DO Work Phone: [facility]04-22-2024 10:112372NqV7% (BldA) [Mass fraction]98 %Connor Lewislong DO Work Phone: [facility]04-22-2024 10:110400Systolic blood mm[Hg]Connor Lewislong DO Work Phone: [facility]02-08-2023 13:27-0500Body jfqumo926.1 cmDeneugenio Lewislong Work Phone: [phone]-Uoggb [place] [employer] 250 DO Work Phone: 1(704) 800-696002-08-2023 13:27-0500Body mass index (BMI) [Ratio] 36.94 kg/r1Jiqhuoeugenio Lewislong Work Phone: mp850-4625HR-Arovi [place] [employer] 250 DO Work Phone: 1(111)[phone]11 13:27-0500Body surface area Derived from formula2.07 d4Ibrdjveugenio Lewislong Work Phone: [phone]-Oeztr [place] [employer] 250 DO Work Phone: 1(693)[phone]-3841 13:27-0500Body uelblx184.7 kgDeneugenio Lewislong Work Phone: mp539-3399RC-Fypmh [place] [employer] 250 DO Work Phone: 1(711) [phone] 13:27-0500Diastolic blood skgebizs81 mm[Hg] Connor Lewislong Work Phone: mp705-7993HP-Zqcys [place] [employer] 250 DO Work Phone: 1(645) 940-689802-08-2023 13:27-0500Heart rate43 /minDennis G Furlong Work Phone: [phone]-Asdok [place] [employer] 250 DO Work Phone: 1(433) 690-297702-08-2023 13:27-0500Systolic blood hmdsyzgb576 mm[Hg] Connor Ruiz Furlong Work Phone: mp572-2202EH-Wygey [place] [facility] 250 DO Work Phone: 1(788) 436-277309-02-2022 11:43-0400Blood Pressure LocationPatrick Medgenics [facility]09-02-2022 11:43-0400Diastolic blood qmafppcl46 mm[Hg]Yehuda HASSAN [facility]09-02-2022 11:43-0400Heart rate60 /minPatrick Medgenics [facility]09-02-2022 11:43-0400Respiratory rate16 /minPatrick [employer] [facility]09-02-2022 11:43-0400Systolic blood sbvnuhen275 mm[Hg]Yehuda HASSAN [facility]05-25-2022 14:06-0400Body byzaln334.1 cmDeneugenio Ruiz Furlong Work Phone: mp652-2338FE-Ztsic [place] [facility] 250 DO Work Phone: 1(231) 182-442405-25-2022 14:06-0400Body mass index (BMI) [Ratio] 42.17 kg/y5Bxkbvz G Furlong Work Phone: mp198-7399GT-Xwjig [place] [facility] 250 DO Work Phone: 1(968) 541-748605-25-2022 14:06-0400Body surface area Derived from formula2.19 s7Yndpri G Furlong Work Phone: mp607-2075QB-Ouyhl [place] [facility] 250 DO Work Phone: 1(497) 207-882605-25-2022 14:06-0400Body .94 kgDennis G Furlong Work Phone: 1(462) [phone]-PyenpGrand [facility] 250 DO Work Phone: 1(216) 639-327105-25-2022 14:06-0400Diastolic blood iwgckhjd57 mm[Hg] Connor G Furlong Work Phone: 1(161) [phone]-SbgznGrand [facility] 250 DO Work Phone: 1(365) 236-110405-25-2022 14:06-0400Heart rate47 /minDennis G Furlong Work Phone: 1(449) [phone]-HykmfGrand [facility]asca [facility] 250 DO Work Phone: 1(723) 615-341105-25-2022 14:06-0400Systolic blood ohppgijt936 mm[Hg] Connor G Furlong Work Phone: 1(611) [phone]-VpfwnGrand [facility]asca [facility] 250 DO Work Phone: 1(460) [phone] 14:38-0400Body kpybyd823.1 cmDennis G Furlong Work Phone: 1(113) [phone]-PjvjrChildren's [facility]awalk 600 DO Work Phone: 1(891) 838-937810-19-2021 14:38-0400Body mass index (BMI) [Ratio] 42.53 kg/d8Bxgonh G Furlong Work Phone: 1(115) [phone]-IzzndChildren's Minnesotawalk 600 DO Work Phone: 1(598) 539-288710-19-2021 14:38-0400Body surface area Derived from formula2.2 i1Ztawsg G Furlong Work Phone: 1(729) [phone]-MhrmaChildren's Minnesotawalk 600 DO Work Phone: 1(787) 233-381010-19-2021 14:38-0400Body orzmcn407.94 kgDennis G Furlong Work Phone: 1(568) [phone]-XtwpcChildren's Minnesotawalk 600 DO Work Phone: 1(374) 857-199810-19-2021 14:38-0400Diastolic blood tylutrrs33 mm[Hg] Connor G Furlong Work Phone: mp199-7400BY-Spsvh [place] [facility] 600 DO Work Phone: 1(764) 245-517810-19-2021 14:38-0400Heart rate44 /minDmimi Ruiz Furlong Work Phone: mp654-2035GN-Obekh [place] [facility] 600 DO Work Phone: 1(843) [phone] 14:38-0400Systolic blood mm[Hg] Connor Ruiz Furlong Work Phone: [phone]-Wforn [place] [facility] 600 DO Work Phone: Encounters Encounter DateEncounter TypeCare ProviderFacilityStart: 09-04-2025 End: 86-72-7667tdsirdvuemNWIIOProMedica Memorial Hospitaltart: 08-25-2025 End: 72-94-1036jkapkpwebqWqoxpu TannaFacility:FTMCStart: 08-25-2025 End: 44-94-0025lcbzzuzqtkRxavcv TannaFacility:EU BellevueStart: 08-25-2025 End: 99-88-5013Makcqul encounter procedureCassie Norris [facility] [place] start: 08-20-2025 End: 74-01-9068WbybhcHoaibt G Furlong DO Work Phone: [facility] MedicineStart: 08-11-2025 End: 00-37-7075fegpsweqcvSjkzaf Furlong DO Work Phone: [facility] Work Phone: Start: 08-11-2025 End: 51-85-2594Ctwhwxa encounter procedureMiguel Ángel Mcmullen [facility] Work Phone: Start: 08-10-2025 End: 35-03-1520jjwbjdrynpKrhisa Furlong DO Work Phone: [facility] Work Phone: Start: 08-10-2025 End: 87-99-4867Gmnuviy encounter procedureMiguel Ángel Mcmullen [facility] Work Phone: Start: 08-03-2025 End: 28-72-2845gdpbryeqfsChpsum Furlong DO Work Phone: [facility] Work Phone: Start: 08-03-2025 End: 65-27-5564Jbohlrj encounter procedureIsa Rogers -[facility] Work Phone: Start: 07-09-2025 End: 71-20-4536Wjyoeb outpatient visit 25 minutesRayeugenio [facility] DO Work Phone: [facility] - Family MedicineComment on above:Primary hypertension (Primary Dx); Acquired hypothyroidism; Hyperlipidemia, unspecified hyperlipidemia type; Class 1 obesity due to excess calories with serious comorbidity and body mass index (BMI) of 33.0 to 33.9 in adult; History of diabetes mellitus, type IIStart: 07-09-2025 End: 11-38-0084vpszuxyvutHUDEWSGood Samaritan Hospital Ambulatory PPGStart: 05-26-2025 End: 44-19-4411Fqbtrt flowsheetJr. Lesvia Mcclain DO Work Phone: [facility]icsStart: 05-26-2025 End: 74-29-0411Uxouji flowsheetJr. Lesvia Mcclain DO Work Phone: [facility] [facility]opaedicsStart: 05-26-2025 End: 95-75-9392Kptcnd outpatient visit 15 minutesJr. Lesvia Mcclain DO Work Phone: [facility] [place] OrthopaedicsComment on above:Acute pain of right knee (Primary Dx); Arthritis of right kneeStart: 05-26-2025 End: 01-48-0670xrmglnhuynGQ., LESVIA MCCLAINNot AvailableStart: 04-07-2025 End: 61-64-7260itdonkafchFPFJAFDC E PERRYFacility:EU BellevueStart: 04-07-2025 End: 81-52-4659Nohldba encounter procedureJELAVERN E INGE [facility] [place] start: 04-06-2025 End: 99-52-0369Nubwjf outpatient visit 25 minutesConnor Joseph Anaya DO Work Phone: [facility] Family MedicineComment on above:Cognitive impairment (Primary Dx); Minimal cognitive impairment; Attention or concentration deficit; Sleep apnea, unspecified typeStart: 04-06-2025 End: 00-83-7657gyzhmkzzgbSGKNXI G [facility] PPGStart: 03-16-2025 End: 09-78-2883gdxuzxfamcSVHYEH G FURCLEMCleveland Clinic Children's Hospital for Rehabilitationtart: 02-19-2025 End: 49-60-8140Bsrmoc OnlyConnor Joseph Lewismileclem DO Work Phone: [facility] - Family MedicineComment on above:Memory loss (Primary Dx); Cognitive impairmentStart: 02-03-2025 End: 03-09-2050zsfsskzrhnIJKJ [facility]atitart: 01-28-2025 End: 66-55-7951NdxhssEwzwoh Joseph Tavaresng DO Work Phone: [facility] - Family MedicineStart: 01-22-2025 End: 60-20-3409trvieuumjnPBISYProMedica Memorial Hospitaltart: 01-19-2025 End: 32-49-8163syhfjbtnadFUJVYC G FURNGAdams County Hospitaltart: 01-19-2025 End: 73-20-0202ntgquvmrdgJFUIJK G [facility] PPGStart: 01-19-2025 End: 68-95-7314Ymkzp & care planning pt w/cognitive impairmentConnor Joseph Lewislong DO Work Phone: [facility] Internal Medicine - Family MedicineComment on above:Cognitive impairment (Primary Dx); Memory loss; Anemia, unspecified type; Acquired hypothyroidism; Gross hematuria; Attention or concentration deficit; Paroxysmal atrial fibrillation (CMS-HCC); Non-ischemic cardiomyopathy (CMS-HCC); Morbid obesity ([facility]-H[facility])Start: 11-27-2024 End: 52-15-0564oifiytxoqoEYBIDOhioHealth Grove City Methodist Hospitaltart: 11-27-2024 End: 02-83-6702ibdqxihihjOBWTYOhioHealth Grove City Methodist Hospitaltart: 11-25-2024 End: 30-30-2329kjobjlurvuZKBCDHGood Samaritan Hospital Ambulatory PPGStart: 11-25-2024 End: 47-57-7238Tozhwgw encounter procedureVibra [facility] Term [facility] Care [facility] DO Work Phone: [facility] Internal Medicine - Family MedicineComment on above:Medicare annual wellness visit, subsequent (Primary Dx); Screening for depressionStart: 11-14-2024 End: 67-44-6871MrqltnTmmhe Rafia [facility] Physicians Internal Medicine - Family MedicineComment on above:Proteinuria, unspecifiedStart: 11-04-2024 End: 73-73-6312Xpjffx flowsheetJr. Lesvia Mcclain DO Work Phone: [facility]oms [facility] ORTHOPAEDICSStart: 11-04-2024 End: 16-77-6347Yzdwya flowsheetJr. Lesvia Mcclain DO Work Phone: n[facility] ORTHOPAEDICSStart: 11-04-2024 End: 26-34-8568bmvytqzpnpMB.LESVIANot AvailableStart: 11-04-2024 End: 66-69-1422Ollbar outpatient visit 15 minutesJr. Lesvia Mcclain DO Work Phone: noms FB ORTHOPAEDICSComment on above:Arthritis of right knee (Primary Dx); Acute pain of right knee; Chondromalacia, patella, rightStart: 10-17-2024 End: 42-57-9062pjsohfsitmEWEYGOhioHealth Grove City Methodist Hospitaltart: 10-13-2024 End: 49-49-2529Pwddjfftvfqv care manage srvc 14 day dischargeDmimi Anaya DO Work Phone: [facility] - Family MedicineComment on above:Nonsustained ventricular tachycardia (CMS-HCC) (Primary Dx); Non-ischemic cardiomyopathy (CMS-HCC); Paroxysmal atrial fibrillation (CMS-HCC); Primary hypertension; Need for immunization against influenza; 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 and body mass index (BMI) of 35.0 to 35.9 in adultStart: 10-13-2024 End: 55-43-3238iultopdfwcSTSUWA G [facility] PPGStart: 10-07-2024 End: 48-80-7610jzvqfwlbinDideahz R WATERSFacility:CD:[id number]: 09-28-2024 End: 64-53-3329Nxclqjobv encounterGeorgette Man [facility] Call CenterComment on above:critical EKGStart: 09-11-2024 End: 73-64-7211pvwvynxacjSutqwte R WATERSFacility:CD:[id number]: 09-03-2024 End: 62-84-7103Pdpmyn KgConnor Anaya DO Work Phone: [facility] Phys[facility] Internal Medicine - Family MedicineStart: 09-02-2024 End: 74-76-3286Uyrrhl flowsFredy HO Work Phone: noms FB ORTHOPAEDICSStart: 09-02-2024 End: 19-41-0809Nztled Melquiades HO Work Phone: noms FB ORTHOPAEDICSStart: 09-02-2024 End: 59-49-3562Rserosczp encounterNicole Kong [facility]icians Internal Medicine - Family MedicineStart: 09-02-2024 End: 91-27-3298bmbpraboudFUHYUZZ J MEYERNot AvailableStart: 09-02-2024 End: 58-98-1787Ljbtyf outpatient visit 25 minutesMasandy HO Work Phone: [facility] ORTHOPAEDICSComment on above:Arthritis of right knee (Primary Dx); Acute pain of right knee; Chondromalacia, patella, rightStart: 08-28-2024 End: 73-12-8768Fpswlj outpatient visit 25 minutesCarmen Lopez MD Work Phone: [facility] CantonComment on above:Paroxysmal atrial fibrillation (Multi) (Primary Dx); Non-ischemic cardiomyopathy (Multi); Mixed hyperlipidemia; Sinus bradycardia; High risk medication use; Class 2 obesity; BMI 35.0-35.9,adult; Never smoked tobaccoStart: 08-28-2024 End: 97-63-8154jgdxauhirpOCAMFK M [facility] AmbulatoryStart: 08-19-2024 End: 32-94-3729Wfbmzf Naeugenio Lewisreggie DO Work Phone: [facility] Family [facility] Cent[facility]art: 08-18-2024 End: 68-37-4839grqddpwinpWVZQVECHI 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 and body mass index (BMI) of 36.0 to 36.9 in adultStart: 07-29-2024 End: 42-96-1710Uyk Drop offAurora X Orzech [facility] Start: 07-29-2024 End: 05-87-8862uomgpnkjrlSordpw X OrzechFacility:FTMCStart: 07-29-2024 End: 45-59-6295Nhualbu encounter procedureAurora X Orzech [facility] start: 07-24-2024 End: 76-13-6419MbogxrBaqmpe G Furlong DO Work Phone: [facility] MedicineStart: 07-15-2024 End: 22-33-4814Oam Drop offAurora X Orzech [facility] Start: 07-15-2024 End: 51-09-2211fpabbfjwbtNxrpvh X OrzechFacility:FTMCStart: 07-15-2024 End: 70-94-7830Cpfutwx encounter procedureAurora X Orzech [facility] start: 07-01-2024 End: 50-78-3870zrnkwaapgcRuchbq X OrzechFacility:EU ueStart: 07-01-2024 End: 25-31-3169Azajmpr encounter procedureAurora X Orzech [facility] start: 06-10-2024 End: 21-00-6866yvuvlwmxxjVjdnxs X OrzechFacility:EU BellevueStart: 06-10-2024 End: 99-04-3041Seeekov encounter procedureAurora X Orzech [facility] start: 05-20-2024 End: 58-17-9439mujmirxpvnZvmnho X OrzechFacility:EU BellevueStart: 05-20-2024 End: 58-07-6255Ovexzxt encounter procedureAurora Marianne Back [facility] start: 05-16-2024 End: 06-89-9803gcsnlfjnvzXgpzaxf R WATERSFacility:EU [place] [facility] HospitalueStart: 05-16-2024 End: 99-17-4941Ybnjbat encounter procedureYehuda HASSAN [facility] start: 03-06-2024 End: 16-75-1230Etdevw outpatient visit 25 minutesNick Richardson MD Work Phone: [facility] CantonComment on above:Mixed hyperlipidemia (Primary Dx); Paroxysmal atrial fibrillation (Multi); Non-ischemic cardiomyopathy (Multi); Never smoked tobacco; BMI 36.0-36.9,adult; Hyperlipidemia, unspecified hyperlipidemia typeStart: 03-06-2024 End: 48-28-4450rrupdvpfviONWNAKD P [facility] AmbulatoryStart: 02-22-2024 End: 08-65-6476Uxqlcb OnlyConnor Anaya DO Work Phone: [facility] Internal Medicine - Family MedicineStart: 02-20-2024 End: 00-39-7125Fvwjfw OnlyConnor Tavaresng DO Work Phone: [facility] - Family MedicineComment on above:Sleep Lab (HST)Start: 02-18-2024 End: 44-55-8933hjrpqlaqmbQHXUKY G FURLONGDoctors Hospital HospitalStart: 02-18-2024 End: 57-40-2987Rwhhqf outpatient visit 25 minutesConnor Anaya DO Work Phone: [facility] Internal Medicine - Family MedicineComment on above: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 (Primary Dx); Minimal cognitive impairment; Sleep apnea, unspecified type; Acquired hypothyroidism; Class 2 severe obesity due to excess calories with serious comorbidity and body mass index (BMI) of37.0 to 37.9 in adult ([facility])Start: 02-14-2024 End: 36-30-2297VrnlfsRbhfou G Furlong DO Work Phone: [facility] - Family MedicineStart: 12-24-2023 End: 38-10-9393rdhovgubvmRXOBUSR P [facility] AmbulatoryStart: 12-13-2023 End: 41-03-4530sgirpdtsfiPwlttsy R WATERSFacility:EU BellevueStart: 12-13-2023 End: 68-35-0796Ouviair encounter procedureYehuda HASSAN [facility] [place] start: 10-26-2023 End: 31-10-6885gdpqayklxmNkokpsc R WATERSFacility:EU BellevueStart: 10-09-2023 End: 47-20-9654kkadagqcjnYC-C JENNIFER E PERRYFacility:EU BellevueStart: 64-85-7205qymtkpghjyUP DAVID V WESTFacility:X9Upbbe: 03-05-2023 End: 18-22-5775jnysngwehcPLLaw HASSAN .Facility:M7Gagfl: 02-20-2023 End: 85-06-4393oeqfujkyqoPUXREZ MISCFacility:L0Sokej: 47-65-2831zlorxenigropal Richardson IIFacility:47236Ykeoe: 07-67-4043Kzkxbl outpatient visit 25 Kirstie Tavaresng Work Phone: [phone]-Zbdki [facility] DO Work Phone: Start: 87-58-9094Ea RenewalConnor Ruiz Furlong Work Phone: [phone]-Oqehf [facility] DO Work Phone: Start: 11-03-2022 End: 53-79-6891wlxlornebbMDLaw HASSAN .Facility:E0Mekza: 10-27-2022 End: 17-98-9108qojdmiwoyzEQ WILLARD SHARMAFacility:N9Efmuo: 10-16-2022 End: 77-31-0543ccxalbeshkAX WILLARD SHARMAFacility:B2Xjdnf: 10-10-2022 End: 95-83-9544jgjfjgmholVB YEHUDA HASSAN .Facility:C6Yqgwi: 10-06-2022 End: 48-69-2125biofyuubjbAL WILLARD SHARMAFacility:L2Qqdvr: 09-26-2022 End: 29-69-5686tqmqbcbdujZU WILLARD Pittman WESTFacility:N7Mlqne: 09-20-2022 End: 99-24-1275gzyyrzkjlsZJ WILLARD SHARMAFacility:A5Coenv: 09-07-2022 End: 32-98-9396xromsxedamSY CONNOR G FURLONGFacility:V1Waylq: 09-07-2022 Encounter for preprocedural laboratory examinationMemorial Health Systemtart: 09-05-2022 End: 66-44-6568Dxiultg encounter procedurePasophy HASSAN [facility] Start: 09-01-2022 End: 90-14-1495nnxbbbmapeOE CONNOR G FURLONGFacility:J6Uvwih: 09-01-2022 End: 88-75-8672Ncasysriz for preprocedural laboratory examinationDR CONNOR G FURLONGFacility:R6Xifix: 08-31-2022 End: 92-74-4136rrfomtgeweLK CONNOR G FURLONGFacility:O5Hgikm: 97-19-0268Ss RenewalDennis G Furlong Work Phone: [phone]-Cjdzz [facility] DO Work Phone: Start: 08-22-2022 End: 10-46-7039fdxuxqztyvNT CONNOR G FURLONGFacility:O6Ibwqo: 08-17-2022 End: 10-33-9895elgpwgxeatPF CONNOR G FURLONGFacility:R4Tgijm: 08-11-2022 End: 03-91-4758Aqk Drop offJENNIFER E INGE [facility] Start: 08-11-2022 End: 22-56-6743Hvceemn encounter procedureJENNIFER E INGE [facility] start: 08-07-2022 End: 01-00-9779raxcsewsltRM WILLARD Pittman WESTFacility:A6Uesif: 08-01-2022 End: 66-06-9339jirkiceqscEO WILLARD Pittman WESTFacility:Z4Hlsii: 07-17-2022 End: 26-77-9775srcnybhidpSI WILLARD Pittman WESTFacility:W3Pegou: 07-12-2022 End: 13-36-1553pntuoqixzvDW WILLARD Pittman WESTFacility:T9Hpkvi: 06-30-2022 End: 26-09-1858ekxjxiodyjCW WILLARD Pittman WESTFacility:S9Jjgto: 06-30-2022 End: 44-26-4478Skndzyg encounter procedurePasophy Catie HASSAN [facility] start: 06-26-2022 End: 33-69-4809wiayjflmdwHE WILLARD Pittman WESTFacility:H3Bbxeo: 06-19-2022 End: 10-68-3672buepmfuujbPO WILLARD Pittamn WESTFacility:S4Tnvww: 06-13-2022 End: 97-04-8431xbteibsldrUM CONNOR G FURLONGFacility:K7Hmdhp: 05-31-2022 End: 07-82-3249oinpuwjxqyFJ CONNOR G FURLONGFacility:S7Thlsy: 05-26-2022 End: 30-57-4574opmycmgztzPK CONNOR G FURLONGFacility:A9Jwpox: 05-23-2022 End: 98-29-3417bnmqssrmaiXL CONNOR G FURLONGFacility:M0Gqziv: 05-05-2022 End: 03-54-9505aadjmnbmxcMNAGBN MISCFacility:H5Kbrkw: 05-04-2022 End: 95-16-8856iggbkbbfnbTI WILLARD Pittman WESTFacility:U7Jmxzh: 05-03-2022 End: 17-24-1087weyuzipnpdILAVZP MISCFacility:G9Pichy: 04-26-2022 End: 25-27-7487criadgpymfVX WILLARD Pittman WESTFacility:N4Bncfr: 04-13-2022 End: 76-90-0473ltpqmjmstgSX [place] V WESTFacility:D8Yiutv: 51-07-9775jnjnpfuarj Connor Sow FurlongFacility:89971Toliy: 38-22-0880Vfrsdh outpatient visit 25 minutesDeneugenio Ruiz Furlong Work Phone: [phone]-Qwvpj [place] [facility] 250 DO Work Phone: Start: 03-22-2022 End: 66-99-2384btltqcrzclAF [place] V WESTFacility:L4Vdemi: 66-52-4901ezfwjcasxg Connor Sow FurlongFacility:82891Lhmot: 66-03-6145Qs RenewalDennis Joseph Furlong Work Phone: [phone]-Qrmoe [place] [facility] DO Work Phone: Start: 67-86-8835Djsuoo outpatient visit 15 minutes Connor Ruiz Furlong Work Phone: [phone]-AqkpvCass Lake HospitalMazoom 600 DO Work Phone: Imaging result normalDennis Joseph Furlong Work Phone: [phone]-Kemrt [place] [facility] 250 DO Work Phone: Patient encounter statusDennis G Furlong Work Phone: [phone]-QcrbiChildren's Minnesotawalk 600 DO Work Phone: Procedures DateProcedureProcedure DetailPerforming ClinicianStart: 45-25-7943Ddnmo depression screening assessmentDennis Furlong DO Work Phone: Start: 20-44-7273Lmrbn depression screening assessment Connor Furlong DO Work Phone: Start: 94-71-6894Qmpbp dip stick/tablet rgnt non-auto w/o micrscpDennis Joseph Lewislong DO Work Phone: Start: 28-41-7574Drzad depression screening assessment Connoreugenio Taavresng DO Work Phone: Start: 64-70-0609Gnjwf depression screening assessment Connoreugenio Lewislong DO Work Phone: Start: 75-79-4812Zsuiv depression screening assessment Connor Lewislong DO Work Phone: Start: 20-74-1863Cgknvdmpwppqpe aspir&/inj major jt/bursa w/o usMatthew Donn HO Work Phone: Start: 67-32-5441Lrvgqvfgvh examination knee 1/2 views Nany HO Work Phone: Start: 15-17-4548Xdjzsj-up visitFollow-Angel Luis LEWISREGIONAL HEALTH SERVICES OF HOWARD COUNTYStart: 34-69-8427Ldqay depression screening assessmentDeneugenio Tavaresng DO Work Phone: Start: 42-95-0288EhpkbpebrvlUavvfv Furlong DO Work Phone: Start: 82-94-0040MOW 12-LEADWILLIAM PAUtart: 89-73-1431TWIVPV UP IN CARDIOLOGYWICARNEY H[facility] PAUtart: 17-45-0817Lld routine ecg w/least 12 lds w/i&Jorge Richardson MD Work Phone: Start: 63-02-3705Rmymk depression screening assessment Connor Tavaresng DO Work Phone: Start: 45-68-4370RUZ 12-LEADWILLIAM PAUtart: 82-08-6152FilrmlpwtjbYrjwym Furlong DO Work Phone: Start: 35-10-3960Hfvae depression screening assessment Connor Anaya DO Work Phone: Start: 17-48-0659MlnhzqimaiDodkmxn WATERS Start: 21-11-2015VlnefdlqacCgwbmat WATERS Start: 45-10-6675UuqkzodocgLmoynnt WATERS Start: 21-89-8140IocgqzecysGujkvwk WATERS Start: 49-82-7271Ezzyewvbdfsmui shockwave lithotripsy of the bile ductNcsophy HASSAN Comment on above:RightStart: 59-48-8216Dcsjeoy sleeve Yehuda HASSAN arthroplasty of kneeDeneugenio Anaya Work Phone: ColonoscopyDeneugenio Anaya Work Phone: Esophagogastrostomy, antesternal or antethoracicDennis Joseph Anaya Work Phone: H/O: artificial jointKnee joint replacement status Connor Anaya DO Work Phone: Comment on above:Problem List clean-up per request of Phys. EHR CmteH/O: hysterectomyPawilliamson arh hospitallindsey HASSAN Comment on above:CompleteHernia repairDennis Joseph Anaya Work Phone: HysterectomyDennis Joseph Anaya Work Phone: LithotripsyDeneugenio Anaya Work Phone: Renal artery stent (physical object)Yehuda HASSAN Repair of ventral herniaYehuda HASSAN Plan of Treatment DateCare ActivityDetailAuthorStart: 27-11-8614TVyV,Tdap and Td Vaccines (5 - Td or Tdap)DTaP,Tdap and Td Vaccines (5 - Td or Tdap)[facility] SystemStart: 81-46-5044HMuV,Tdap and Td Vaccines (6 - Td or Tdap)DTaP,Tdap and Td Vaccines (6 - Td or Tdap)[facility] SystemStart: 74-57-0090QUiS/Tdap/Td Vaccines (3 - Td or Tdap)DTaP/Tdap/Td Vaccines (3 - Td or Tdap)[facility]Start: 04-64-1546Xcqpwvjuro ScreeningDepression ScreeningMcCullough-Hyde Memorial Hospital SystemStart: 04-29-4159Ojtn Risk ScreeningFall Risk ScreeningMcCullough-Hyde Memorial Hospital SystemStart: 43-00-0252Ppnkkys ScreeningTobacco ScreeningNovant Health Forsyth Medical Centertart: 49-43-4160Ectks BMI ScreeningAdult BMI ScreeningNovant Health Forsyth Medical Centertart: 08-80-5537Usskjffvzz ScreeningDepression ScreeningMcCullough-Hyde Memorial Hospital SystemStart: 84-91-8731Npqj Risk ScreeningFall Risk ScreeningNovant Health Forsyth Medical Centertart: 99-93-1763Oemtzmt ScreeningTobacco ScreeningACMC Healthcare [facility] Start: 79-51-7106Dttfj BMI ScreeningAdult BMI ScreeningACMC Healthcare System Glen[facility] Start: 32-90-9924Kkinzryqnb ScreeningDepression ScreeningAC[facility] Healthcare [facility] Start: 08-79-9797Ejsx Risk ScreeningFall Risk ScreeningAC[facility] Healthcare [facility] Start: 80-94-9523Pcvprqe ScreeningTobacco ScreeningNovant Health Forsyth Medical Centertart: 01-06-2026 End: 59-19-7900Gszopba encounter diklqluhm17/11/2026 10:00 AM EDT Office Visit [facility] [address] [place] [address] Connor Anaya DO [address] [place] [place] [address] [facility] - Family MedicineStart: 09-77-1388Dydswlnkc for malignant neoplasm of colonColon Cancer Screening 5 Year SigmoidoscopyProMedica Health SystemComment on above:Postponed from 1995 (Not Indicated)Start: 11-26-2025 End: 38-65-6211Themzpr encounter fzotkllxi96/29/2026 1:40 PM EST Office Visit [facility] [address] [place] [address] [phone] Physicians Internal Medicine - Family MedicineStart: 83-44-0176Thnpc BMI ScreeningAdult BMI ScreeningProAultman Orrville Hospital SystemStart: 77-37-2624Rqqhdaycmh ScreeningDepression ScreeningProAultman Orrville Hospital SystemStart: 55-23-2378Nfse Risk ScreeningFall Risk ScreeningProAultman Orrville Hospital SystemStart: 01-28-2026Medicare Annual Wellness VisitMedicare Annual Wellness VisitProAultman Orrville Hospital SystemStart: 11-03-2025 End: 85-95-8171Trryowv encounter procedureNOMS FB ORTHOPAEDICSStart: 10-19-2025 ambulatoryAmbulatoryFacility:EU BellevueStart: 97-15-2882Svgvn BMI Screening Adult BMI ScreeningProAultman Orrville Hospital SystemStart: 14-73-9330Qgmzsmbctm Screening Depression ScreeningMcCullough-Hyde Memorial Hospital SystemStart: 65-92-0272Qegj Risk Screening Fall Risk ScreeningMcCullough-Hyde Memorial Hospital SystemStart: 50-95-5480Vnteqoo Screening Tobacco ScreeningMcCullough-Hyde Memorial Hospital SystemStart: 09-22-2025 End: 26-17-3505Vzgavqg encounter ocbzhkipu25/25/2025 11:15 AM EST Office Visit [facility] [address] [place] [address] Jr. Lesvia Mcclain DO [address] [facility] [address] [place] [address] NOMAshley Prince OrthopaedicsStart: 08-27-2025 End: 70-44-7987Wuzqkqd encounter dxenuwddd05/30/2025 11:20 AM EDT Office Visit [address] [place] [address] Carmen Lopez MD [address] [facility], [address] [place] [address] [facility]: 03-91-4483Qmsvu BMI ScreeningAdult BMI ScreeningProMedica Health SystemStart: 64-11-1182Uynfnttzqy ScreeningDepression ScreeningProMobile [facility] SystemStart: 12-55-9404Mhan Risk ScreeningFall Risk ScreeningProMobile [facility] Health SystemStart: 07-25-3365Sxbvouk ScreeningTobacco ScreeningProMobile [facility]irmary [facility] Health SystemStart: 11-84-5058Gprnhztcx for malignant neoplasm of breastMaKindred Hospital Dayton: 44-52-7004Suvrjyi referralMercy Health St. [facility] Work Phone: Start: 70-25-9237DZXOI-19 Vaccine ( season)COVID-19 Vaccine ( season)[facility] SystemComment on above:Postponed from 06/29/2025 (Vaccine Not Available)Start: 07-29-2025 Influenza vaccinationInfluenza VaccineProAultman Orrville Hospital SystemComment on above: Postponed from 06/29/2025 (Vaccine Not Available)Start: 07-09-2025 End: 77-38-9121Xhqblav encounter jfoxyykei27/11/2025 10:00 AM EDT Office Visit [facility] [address] [facility] [place] [address] Connor Anaya, DO [address] [facility] [place] [address] [facility] - Family MedicineStart: 94-26-0974AKCPL-19 Vaccine ( season)COVID-19 Vaccine ()[facility] SystemStart: 34-40-2852Dqfkyzryj vaccinationProAultman Orrville Hospital SystemStart: 05-26-2025 End: 99-26-8845Razxffn encounter lntslyamy91/29/2025 11:00 AM EDT Office Visit [facility] [address] [facility] [address] Jr. Lesvia Mcclain, DO [address] [place] [address] [facility] OrthopaedicsComment on above:ArrivedStart: 03-25-2025 End: 74-96-4556Cionexe encounter lspbylxky99/28/2025 1:00 PM EDT Office Visit [facility] [address] [place] [address] Jr. Lesvia Mcclain, DO [address] [place] [address] [facility] ORTHOStart: 03-16-2025 End: 86-40-2831Jcgvxbu encounter bysfjrdhy92/19/2025 8:15 AM EDT Appointment [facility] - MRI Imaging [address] [place] [address] Connor Anaya, DO [address] [facility], [place] [address] [facility] - MRI ImagingStart: 02-19-2025 End: 13-83-5019FQ Brain WO contrastMR brain without contrast Imaging Routine Memory loss Cognitive impairment Expected: 02/19/2025, Expires: 02/19/2026 [facility] Work Phone: Comment on above:Expected: 02/19/2025, Expires: 02/19/2026Start: 73-57-0279Mddmh BMI Follow Up PlanAdult BMI Follow Up Plan [facility] SystemStart: 34-19-0531Ouuqf BMI ScreeningAdult BMI Screening [facility] SystemStart: 86-47-4231Vjltzvqzjf ScreeningDepression Screening [facility] SystemStart: 19-17-2339Bsbf Risk ScreeningFall Risk Screening [facility] SystemStart: 60-46-1149Jdnydre ScreeningTobacco Screening [facility] SystemStart: 02-16-2025 End: 94-02-1314Jowsixm encounter pakxyhloi36/21/2025 9:00 AM EDT Office Visit [facility] - [facility] Medicine [address] [place] [address] Connor Anaya, [address], [place] [address] [facility] MedicineStart: 01-19-2025 End: 56-77-3011LS Brain WO contrastMR brain without contrast Imaging Routine Cognitive impairment Expected: 01/19/2025, Expires: 01/19/2026[facility] Work Phone: Comment on above:Expected: 01/19/2025, Expires: 01/19/2026Start: 01-19-2025 End: 92-96-3686Yldoojr encounter ynplnbtwt28/24/2025 10:30 AM EDT Office Visit [facility] - [facility] Medicine [address] [place] [address] Connor Anaya DO [address], [place] [address] [facility] MedicineStart: 11-04-2024 End: 05-67-4734Vlfiglk encounter rlazqoeob67/07/2025 11:00 AM EST Office Visit [facility] [address] [place] [address] Jr. Lesvia Mcclain, DO [address] [place] [address] [facility]THOPAEDICSStart: 08-28-2024 End: 35-75-6049Toaslto encounter tonprlgts01/31/2024 10:40 AM EDT Office Visit [address] [place] [address] Carmen Lopez MD [address] [facility] [address], [address] [place] [address] [facility]: 08-18-2024 End: 79-10-1718Pqpvphy encounter jypgolips57/21/2024 10:30 AM EDT Office Visit [facility] [address] [place] [address] Connor Anaya DO [address], [place] [address] [facility] - Family MedicineStart: 95-79-5909Thbcvbxpu for malignant neoplasm of breastMammogramMercy Hospital: 80-57-7345Cmiqa BMI ScreeningAdult BMI ScreeningProAultman Orrville Hospital SystemStart: 50-86-6479Fjndacqjem ScreeningDepression ScreeningProTrihealth Mccull[facility] Memorial Hospitalca Health SystemStart: 20-99-4724Tmfnhhn ScreeningTobacco ScreeningProAultman Orrville Hospital SystemStart: 57-60-3796XHIQP-19 Vaccine ( season)COVID-19 Vaccine ()[facility] SystemStart: 12-97-0815YLYQD-19 Vaccine ( season)COVID-19 Vaccine ( season)[facility] Start: 40-49-4628YRDKU-19 Vaccine ( season)COVID-19 Vaccine ( season)[facility] SystemStart: 65-38-1826LDCUG-19 Vaccine ( season)COVID-19 Vaccine ( season)[facility] Start: 82-59-0078Veezrvtfs vaccinationMercy Hospital: 06-24-2024 End: 78-26-6265Zlhzggk encounter yvmumqkat00/27/2024 10:40 AM EDT Office Visit [facility] [address] [place] [address] PgdSbfyvn Physicians Internal Medicine - Family MedicineStart: 42-41-0760Eous Risk ScreeningFall Risk ScreeningProAultman Orrville Hospital SystemStart: 08-24-2024Medicare Annual Wellness VisitMedicare Annual Wellness VisitProVeterans Health Administrationtart: 03-17-2024 End: 45-32-3073Bnzblzfi Sijkowf0303/17/2024 7:30 PM EDT Clinical Support [facility] Sleep Disorders [address] [place] [address] Connor Anaya, DO [address], [place] [address] [facility] Sleep DisordersStart: 39-80-6058KVZOS-19 Vaccine () COVID-19 Vaccine ()[facility]Start: 02-18-2024 End: 28-49-1417Phztvte encounter esejywnyx24/22/2024 9:45 AM EDT Office Visit [facility] Internal [facility] - Family Medicine [address] [place] [address] [facility]'SConnor paredes, DO [address], [place] [address] [facility] Internal Medicine - Family MedicineStart: 66-43-7677GYF, Provider: Nick Richardson, Status: Pen, Time: 11:20 AMFUV, Provider: Nick Richardson, Status: Pen, Time: 11:20 AMGrand [facility]asca Clinic and [facility] 250 DO Work Phone: Start: 97-15-9259HTPZN-19 Vaccine ( season) COVID-19 Vaccine ()[facility] Centertart: 12-06-2022 FUV, Provider: Nick Richardson, Status: Pen, Time: 1:10 PMFUV, Provider: Nick Richardson, Status: Pen, Time: 1:10 PM-[facility] 250 DO Work Phone: Start: 45-54-2105NHZ, Provider: Nick Sarkar, Status: Pen, Time: 2:20 PMFUV, Provider: Nick Sarkar, Status: Pen, Time: 2:20 PM-[facility] 250 DO Work Phone: Start: 24-87-5564XLZ High Risk: (Elderly (60+) or Population) (1 - Risk 60-74 years 1-dose series)RSV High Risk: (Elderly (60+) or Population) (1 - Risk 60-74 years 1-dose series)[facility]: 12-32-9008ZRX patients and/or patients aged 60+ years (1 - 1-dose 60+ series)RSV patients and/or patients aged 60+ years (1 - 1-dose 60+ series)[facility]: 74-84-9267Dwzsugczq for malignant neoplasm of colonColon Cancer Screening 5 Year SigmoidoscopyMetroHealth Parma Medical CenterEckard Recovery Services [facility] Centertart: 05-45-9055Fcbrv BMI Follow Up Plan Adult BMI Follow Up PlanMetroHealth Parma Medical CenterCoqueluxtart: 33-38-3484Gakkdsnw mellitus screeningDiabetes ScreeningUnRiverside Methodist Hospital: 66-25-8106Fkmgaucn foot examinationDiabetic Foot ExamMetroHealth Parma Medical CenterEckard Recovery Services [facility] Start: 74-73-4000Tiwhhkupd C screeningHepatitis C ScreeningUnRiverside Methodist Hospital: 06-63-5548Hesucjlr screeningDiabetic Ophthalmology Exam [facility] Dextrys [facility] Centertart: 30-34-5431Nycqy panelLipid PanelUnRiverside Methodist Hospital: 1950Medicare Annual Wellness VisitMedicare Annual Wellness Visit (AWV)[facility]: 1950 Screening for malignant neoplasm of colonUnRiverside Methodist Hospital: 18-90-6806Zllmdcbij for osteoporosisBone Density ScanMercy Hospital: 88-28-0014Yaxmudv stimulating hormone measurementTSH Level [facility] End: 23-23-9584Ophhdbsn identified in Urine by CultureUrine culture (clean catch) Microbiology Routine Cognitive impairment Gross hematuria 1 Occurrences starting 01/19/2025 until 01/19/2026White [facility] Junction Va Medical CenterUZwan SystemComment on above:1 Occurrences starting 01/19/2025 until 01/19/2026acteria identified in Urine by CultureUrine culture (clean catch) Microbiology Routine Cognitive impairment Gross hematuria 01/19/2025 7:21 PM [facility] End: 34-51-6967Dpswnaxbsonct metabolic 2000 panel - Serum or PlasmaComprehensive metabolic panel Lab Routine Primary hypertension 1 Occurrences starting 07/09/2025 until 07/09/2026ProUZwan [facility] HospitalComment on above:1 Occurrences starting 07/09/2025 until 07/09/2026omprehensive metabolic 1999 panel - Serum or PlasmaComprehensive metabolic panel Lab Routine Primary hypertension 07/09/2025 10:32 AM [facility] End: 04-24-2806Qkiucjokat A1c/Hemoglobin.total in BloodHemoglobin A1c Lab Routine History of diabetes mellitus, type II 1 Occurrences starting 07/09/2025 until 07/09/2026[facility] Work Phone: Comment on above:1 Occurrences starting 07/09/2025 until 07/09/2026Hemoglobin A1c/Hemoglobin.total in BloodHemoglobin A1c Lab Routine History of diabetes mellitus, type II 07/09/2025 10:32 AM [facility] End: 16-53-9198Hifk sleep studyHom sleep study Sleep Center Routine Sleep apnea, unspecified type 1 Occurrences starting 02/18/2024 until 02/17/2025 [facility] Work Phone: Comment on above:1 Occurrences starting 02/18/2024 until 02/17/2025 End: 05-63-9379Hnbxo 1995 panel - Serum or PlasmaLipid profile Lab Routine Hyperlipidemia, unspecified hyperlipidemia type 1 Occurrences starting 08/2025 until 07/09/2026White [facility]unction Va Medical CenterUZwan [facility] HospitalComment on above:1 Occurrences starting 07/09/2025 until 07/09/2026Lipid 1996 panel - Serum or PlasmaLipid profile Lab Routine Hyperlipidemia, unspecified hyperlipidemia type 07/09/2025 10:32 AM EDTProMedProMedica Memorial Hospital Work Phone: End: 62-61-8658Dxxcrdn profile includes TSH PO8Mfhjxdk profile includes TSH FT4 Lab Routine Acquired hypothyroidism 1 Occurrences starting 07/09/2025 until 07/09/2026[facility] System GlenbeighComment on above:1 Occurrences starting 07/09/2025 until 07/09/2026Thyroid profile includes TSH GU3Zfmlxtc profile includes TSH FT4 Lab Routine Acquired hypothyroidism 07/09/2025 10:32 AM EDT [facility] 1 View 10/07/25[facility] Immunizations Immunization DateImmunizationNotesCare TzqrmhhzNrxaljwl16-62-8050Ehpttldo trivalent influenza vaccine, adjuvanted, preservative freeDtheresais Debbieclem DO Work Phone: [facility] CenterKdozpywdxl47-81-2925Tzmzlaqomzbm, In Clinic,; Translations: [Drug or medicament (substance)]Connor Markel DO Work Phone: [facility] GlenbeighZygcxx29-53-8485pxanjjmkh virus vaccine, unspecified formulationDennis Chaitanyang DO Work Phone: [facility]01-04-2024Influenza, High-dose, QuadrivalentDennis Debbieng DO Work Phone: [facility] GlenbeighLkbtds97-02-7504oplbffdrc virus vaccine, unspecified formulationDennis Debbielong DO Work Phone: [facility]04-25-2023tetanus toxoid, reduced diphtheria toxoid, and acellular pertussis vaccine, adsorbedPatrick HASSAN [facility]12-18-2022Fluzone High-Dose Quadrivalent 0.7 ML Intramuscular Suspension Prefilled SyringeDennis Joseph Tavaresng Work Phone: [phone]-QuoulGrand Itasca Clinic and Hospital 250 DO Work Phone: [phone] virus vaccine, unspecified formulationPaClerky [facility]12-18-2022influenza, high dose seasonal, preservative-freeNick Richardson MD Work Phone: [facility] Work Phone: [phone] 30 MCG/0.3ML Intramuscular SuspensionDennis G Furlong Work Phone: [phone]-FutohWelia Healthusky 250 DO Work Phone: [phone]-01, mRNA, LNP-S, PF, 100mcg/0.5mL Dose Connor Furlong DO Work Phone: [facility] GlenbeighYexabz07-72-1614GWTG-EEG-3 (COVID-19) Vaccine, UnspecifiedDennis Furlong DO Work Phone: [facility] GlenbeighPrhiqt72-90-1807MBVO-JqP-6 mRNA (bheverxhglz-mute-myiomda) vaccinePawilliamson arh hospitalk Medgenics [facility]11-11-2021influenza virus vaccine, unspecified formulationPaClerky [facility]11-01-2021Fluzone High-Dose Quadrivalent 0.7 ML Intramuscular Suspension Prefilled SyringeDennis G Furlong Work Phone: [phone]-JdenyLakeview Hospital 250 DO Work Phone: [phone] virus vaccine, unspecified formulationPaClerky [facility]11-01-2021influenza, high dose seasonal, preservative-Maggi Richardson MD Work Phone: [facility] Work Phone: [phone]-VihUUfry COVID-19 Vacc 30 MCG/0.3ML Intramuscular SuspensionDennis G Furlong Work Phone: [facility]02-25-2021Pfizer-BioNTech COVID-19 Vacc 30 MCG/0.3ML Intramuscular SuspensionDennis G Furlong Work Phone: [facility]02-03-2021Pfizer-BioNTech COVID-19 Vacc 30 MCG/0.3ML Intramuscular SuspensionDennis G Furlong Work Phone: [facility]11-16-2020pneumococcal polysaccharide vaccine, 23 valentDennis G Furlong Work Phone: [facility]11-06-2020influenza virus vaccine, unspecified formulationPatrick [employer] [facility]11-06-2020influenza, high dose seasonal, preservative-freeDennis Furlong DO Work Phone: [facility] GlenbeighXjnjsh05-86-3493scdqewgmq, injectable, quadrivalent, contains preservativeDennis G Furlong Work Phone: [phone]-JbaheSt. Josephs Area Health Services 600 DO Work Phone: [phone] virus vaccine, unspecified formulationPatrick [employer] [facility]11-01-2020influenza, high dose seasonal, preservative-freeDennis G Furlong Work Phone: [phone]-BdyslLakeview Hospital 250 DO Work Phone: [phone], injectable, quadrivalent, contains preservativeDennis Furlong DO Work Phone: [facility] GlenbeighOcazdl38-25-5101djvicsdgstad polysaccharide vaccine, 23 valentDennis G Furlong Work Phone: [facility]10-14-2020influenza virus vaccine, unspecified formulationPatrick [employer] [facility]10-14-2020influenza, seasonal, injectableDennis G Furlong Work Phone: [phone]-GzlpgSt. Josephs Area Health Services 600 DO Work Phone: [phone] virus vaccine, unspecified formulationPatrick Medgen[employer] [facility]10-01-2020influenza, seasonal, injectableDennis G Furlong Work Phone: [phone]-MmklkLakeview [facility] 250 DO Work Phone: [phone]) [phone] virus vaccine, unspecified formulationPatrick [employer] [facility]11-05-2019influenza, high dose seasonal, preservative-freeDennis G Furlong Work Phone: [phone]-UaeacSt. Josephs [facility] 600 DO Work Phone: [phone] virus vaccine, unspecified formulationDennis G Furlong Work Phone: [facility]11-01-2019influenza, seasonal, injectableDennis Furlong DO Work Phone: [facility] GlenbeighWuukpf83-04-5571rrdmfmdtv virus vaccine, unspecified formulationPatrick [employer] [facility]08-20-2019zoster vaccine recombinantDennis G Furlong Work Phone: [facility]08-01-2019zoster vaccine recombinantDennis G Furlong Work Phone: [facility]06-18-2019zoster vaccine recombinantDennis G Furlong Work Phone: [facility]06-01-2019zoster vaccine recombinantDennis G Furlong Work Phone: [facility]11-01-2018influenza virus vaccine, unspecified formulationDennis G Furlong Work Phone: [phone]-AfmahGrand Itasca Clinic and [facility] 250 DO Work Phone: [phone] virus vaccine, unspecified formulationPatrick [employer] [facility]11-30-2017Influenza, injectable, Madin Ese Canine Kidney, preservative free, quadrivalentDennis G Furlong Work Phone: [phone]-HgtrvLuverne Medical Center 600 DO Work Phone: [phone] virus vaccine, unspecified formulationDennis G Furlong Work Phone: [phone]-TbzehSt. [facility] 250 DO Work Phone: [phone] virus vaccine, unspecified formulationPatrick [employer] [facility]12-22-2016seasonal influenza, intradermal, preservative freeDennis G Furlong Work Phone: [phone]-TsqqyLuverne Medical Center 600 DO Work Phone: [phone]) [phone]rjx virus vaccine, unspecified formulationPatrick HASSAN [facility]12-09-2016influenza, seasonal, injectable, preservative freeDennis G Furlong Work Phone: [phone]-DjhbfRedwood LLCProsperity 600 DO Work Phone: [phone]ixod conjugate vaccine, 13 valent Connor G Furlong Work Phone: [facility]06-09-2016 pneumococcal conjugate vaccine, 13 valentPatrick HASSAN [facility]10-10-2014influenza virus vaccine, unspecified formulationDennis G Furlong Work Phone: [phone]-RspqpSt. Francis [facility] 250 DO Work Phone: [phone], High-dose, QuadrivalentDennis Furlong DO Work Phone: [facility] GlenbeighAgshfc01-31-8953pesfmlxll, unspecified formulationPatrick HASSAN [facility]10-01-2014influenza virus vaccine, unspecified formulationDennis G Furlong Work Phone: [phone]-TlaskGrand Itasca Clinic and Hospital 250 DO Work Phone: [phone] polysaccharide vaccine, 23 valentDennis G Furlong Work Phone: [facility]12-05-2013pneumococcal conjugate vaccine, 13 valentDennis G Furlong Work Phone: [facility]04-19-2013zoster vaccine, liveDennis G Furlong Work Phone: [facility]01-01-2013influenza virus vaccine, unspecified formulationRaynis Joseph Furlong Work Phone: [phone]-FgiitGrand Itasca Clinic and Hospital 250 DO Work Phone: [phone]xkq polysaccharide vaccine, 23 valentDennis G Furlong Work Phone: [phone]-SdgeuGrand Itasca Clinic and Hospital 250 DO Work Phone: [phone]biaj polysaccharide vaccine, 23 valentDennis Furlong DO Work Phone: [facility] GlenbeighYlpwjc15-25-6009jiksltxmyxfh polysaccharide vaccine, 23 valentDennis G Furlong Work Phone: [facility]04-26-2010tetanus toxoid, reduced diphtheria toxoid, and acellular pertussis vaccine, adsorbedConnor Lewislong Work Phone: [facility]02-22-2010novel vikbquetj-P3Z4-77, preservative-free, injectableConnor Lewislong Work Phone: [phone]-BewjuHennepin County Medical Center 600 DO Work Phone: [phone] zyaxuspya-T7W8-52, preservative-free, injectableConnor Ruiz Furlong Work Phone: [phone]-RogycGrand Itasca Clinic and Hospital 250 DO Work Phone: [phone](adult) unspecified formulation; Translations: [Td(adult) unspecified formulation]Connor Anaya Work Phone: [facility]11-09-1999tetanus and diphtheria toxoids, adsorbed, preservative free, for adult use (2 Lf of tetanus toxoid and 2 Lf of diphtheria toxoid)Connor Anaya DO Work Phone: [facility] Systeminfluenza virus vaccine, unspecified formulationDeneugenio Ruiz Furlong Work Phone: [phone]-AzfatLakeview Hospital 250 DO Work Phone: Comment on above:2011pneumococcal polysaccharide vaccine, 23 valentDennis G Furlong Work Phone: [phone]-CpfuwSt. Francis Regional Medical Center 250 DO Work Phone: Comment on above:2010 Payers DatePayer CategoryPayerPolicy [id number] (Managed Care)AARP MEDICARE COMPLETE [id number] [id number] 07-37-5229Vytavfp Care Other (unspecified)[facility] [id number] 2015Medicare [id number]3-2573Gxpizngwujajd or Other[place] [place] 1.2.840.169634.1.13.647.2.7.9.683082.136826.01442-87-0842Ehjaqgj Health Insurance1.2.840.430608.1.13.693.2.7.9.124993.370339.41793-75-0101Oqlvdwh [id number] [id number] [id number] [id number] 2.0.1.098468.3.579.2.75555-09-5493Lexcddn [id number] 2..1.315919.3.57[id number] 2.0.1.158285.3.579.2.64473-35-2352Bluhytc7235933 2.0.1.926705.3.579.2.38877-59-1624Lzabitx1372191 2.160.1.505255.3.579.2.34342-21-3808Bsejwja3034464 2.160.1.962964.3.579.2.07979-49-7644Zbohdnb4909293 2.160.1.367152.3.579.2.14390-11-5442Zbtyhso1041892 2.16840.1.749666.3.579.2.76500-94-5259Xlfuziy9379604 2.16.840.1.863455.3.579.2.94599-98-4336Qyfqlxb9010726 2.16.840.1.466130.3.579.2.08125-36-6370Oyfxrad4782075 2.16.840.1.362914.3.579.2.81625-24-4534Uwfynts6456633 2.16.840.1.906096.3.579.2.96685-11-8149Zsthxcq1452101 2.16.840.1.089664.3.579.2.58756-17-7167Xszjipg6551660 2.16.840.1.735472.3.579.2.36978-72-0755Dipjcds1838638 2.16840.1.515158.3.579.2.18960-42-7708Eeyxelb3745897 2.16840.1.628506.3.579.2.61282-33-1673Ivdunaw1234605 2.16.840.1.879404.3.579.2.49870-29-4283Okrlmex9764873 2.16.840.1.071503.3.579.2.12513-46-2487Szmtijx5595381 2.16.840.1.361013.3.579.2.82462-36-4260Zkaizgh1441499 2.16.840.1.445830.3.579.2.76251-03-8417Xcntcln4691486 2.16.840.1.655436.3.579.2.69943-75-1467Qqdqphv4229128 2.16.840.1.256040.3.579.2.34704-38-1373Qxgtcoj5432706 2.16.840.1.614748.3.579.2.78108-87-7344Yrtktdl3611413 2.16.840.1.117069.3.579.2.18449-77-7934Hceqdni0207503 2.16.840.1.013556.3.579.2.70171-62-3677Qshshpl8002473 2.16840.1.531030.3.579.2.29454-47-6260Kvqvvfd2019485 2.16840.1.475737.3.579.2.61604-27-3629Bvosqlo2117659 2.16840.1.270847.3.579.2.02061-17-5644Avlhrsu0816888 2.840.1.386062.3.579.2.76157-97-1640Aamcwmj3124736 2.840.1.478145.3.579.2.41693-95-8783Gtyhhqf2239244 2.840.1.812381.3.579.2.24842-07-3300Vwilhcg1306827 2.840.1.093228.3.579.2.71657-86-9903Gchrkvk8032352 2.840.1.093311.3.579.2.26721-78-3357Brxorqs9369195 2.840.1.866628.3.579.2.92881-50-7488Kvhnkci8174081 2.840.1.140857.3.579.2.18116-87-0218Snfzgyd6235632 2.840.1.668358.3.579.2.39625-94-4262Afgkrql1204919 2.16840.1.464187.3.579.2.62049-71-7494Kozwkzd9635261 2.840.1.021565.3.579.2.09417-27-0564Cgwhmii08490098 2.16.840.1.865118.3.579.2.94418-80-7738Lbbqmgr99645616 2.16.840.1.302522.3.579.2.75502-80-8076Ssejrkj55871706 2.16.840.1.218252.3.579.2.64293-99-4228Kiwvbbv90586687 2.16.840.1.297086.3.579.2.77894-58-5631Mudglrv97023835 2.16.840.1.738527.3.579.2.51150-33-4326Zbahsvv33596895 2.16.840.1.385634.3.579.2.89625-07-2288Wnksnji36293835 2.16840.1.807709.3.579.2.59450-67-4323Myxaafz42430873 2.16840.1.140417.3.579.2.05306-97-0116Leuihzl80795049 2..840.1.504495.3.579.2.19436-86-4439Krbjmys67832029 2.840.1.218416.3.579.2.26834-59-1657Mlddhfv67669187 2.840.1.811949.3.579.2.28044-16-8293Ajtnruy64493639 2.16840.1.093853.3.579.2.87513-78-7706Tcbfhth122360026 2.16840.1.341652.3.579.2.276950-76-9404Oalvmtz17814407 2.16840.1.965536.3.579.2.363052-20-7871Tyipmmz71751652 2.16840.1.916421.3.579.2.733930-54-7324Cuyrmym994790897 2.16.840.1.827075.3.579.2.154551-17-0011Mrkuuoq32608875 2.16840.1.544099.3.579.2.050783-24-2184Ukjdmjq03829761 2.840.1.402471.3.579.2.459810-86-6543Uyunryu597577018 2.16840.1.731837.3.579.2.760439-32-7153Jxkvlcg82701546 2.16840.1.843448.3.579.2.274298-37-1396Ucyzavu0589748 2.0.1.407801.3.579.2.283529-03-7199Sviioxm7783536 2.0.1.678360.3.579.2.593294-32-7084Njxncnn9043092 2.840.1.308701.3.579.2.032594-81-7049Igkejiy237169925 2.840.1.122818.3.579.2.759688-47-6485Hborvnf536613461 2.840.1.300011.3.579.2.067381-99-7286Wyrhvak055309752 2.840.1.419349.3.579.2.459085-00-8007Vlieyvj558325942 2.840.1.090572.3.579.2.235369-78-1618Mpqutyb80889746 2.840.1.703049.3.579.2.722299-87-3891Zgjpqpd71743398 2.840.1.227073.3.579.2.646989-42-7563Jrpdifa61505715 2.16.840.1.654246.3.579.2.59607-91-6271Ztnuotq75905105 2.16.840.1.850077.3.579.2.41905-99-7819Eppjugz69627145 2.16.840.1.359864.3.579.2.78955-56-8234Uddhckj25361566 2.16.840.1.156266.3.579.2.05845-89-5579Khhxjni85590135 2.16.840.1.187541.3.579.2.24590-30-2742Mtjuppx87077868 2.16.840.1.887167.3.579.2.727MedicareMedicare Rehab-IP Part [id number]-[id number] 6bh6g3kn-go1g-7ck3-xjtw-i0q118z77l3l Social History DateTypeDetailFacilityStart: 02-20-2023 End: 42-19-6091Ifhyc a smokerNever a smokerWilliam [place]ille [address] DO Work Phone: Start: 12-28-2021 End: 59-09-6685Xavwvap smoking statusNever smoked tobacco (finding)[facility] Tobacco smoking statusNeverExec[facility] of [facility] [place] start: 02-20-2023 End: 78-95-2426Afp Assigned At BirthFemaleExecutive [facility]rology of [facility] start: 11-13-2022 End: 42-85-7815Llowjyn use and exposureSmokeless tobacco non-userProTrihealth Mccullough-Hyde Memorial Hospitalca Health SystemStart: 89-59-5115Mretyovup beverage intakeLifetime non-drinker (finding)[facility] Work Phone: Start: 54-37-0837Wed assigned at birthNot on file TalkBintart: 02-25-2024 End: 23-92-7460Paapmvrb to SARS-CoV-2 (event)Not [facility] HospitalStart: 10-13-2024 End: 35-02-4847Orqrqptfb beverage intakeEx-drinker (finding)[facility] SystemDo you belong to any clubs or organizations such as sikhism groups, unions, fraternal or athletic groups, or school groups?NoProMedvaughan regional medical center Health SystemAre you now , , , , never or living with a partner?WidowedProMedica Health SystemHow often to you have a drink containing alcohol?NeverProMedica Health SystemDo you feel stress - tense, restless, nervous, or anxious, or unable to sleep at night because yourmind is troubled all the time - these days [OSQ]Only a littleProMediMonster Digital Health SystemStart: 06-02-2015 End: 17-53-2658MmsTgymue (finding)VisEn Medical SystemSexual Orientation [facility] start: 31-75-4025Adf Assigned At BirthFeProMedica [facility] Medical Equipment Procedure CodeEquipment CodeEquipment Original TextEquipment IdentifierDates Arthroplasty, knee, total, minimally invasiveCEMENT PALACOS R 1X40 SINGLEFDA Start: 57-88-4225Aoepqhnqsvdg, knee, total, minimally invasiveSURFACE ARTICULAR LPS FLEXFDAStart: 28-77-6609Jjwhdmpgizhg, knee, total, minimally invasiveCEMENT PALACOS R 1X40 SINGLEFDAStart: 89-10-1994Xknmenpcqxrg, knee, total, minimally invasiveCOMPENT FEMORAL GSF LPSFDAStart: 42-49-4608Krhizzjzmnvi, knee, total, minimally invasiveCOMPONENT TIBIAL STEMMEDFDAStart: 33-34-9879Lebhkgpomwaw, knee, total, minimally invasiveKNEE TOTAL LEVEL 1FDAStart: 11-08-2017 Arthroplasty, knee, total, minimally invasivePATELLA POLY 32 MMFDAStart: 65-65-8068Tqktdfrqwttx, knee, total, minimally invasivePATELLA REAMING SYSTEMFDA Start: 12-25-0958Hfprybjbwhaa, knee, total, minimally invasiveSCREW BONE 6.5MM X 35MMFDAStart: 16-44-1840Tclitixsqmcl, knee, total, minimally invasiveSCREW BONE 6.5MM X 35MMFDAStart: 35-49-4682Hkactrhqqxws, knee, total, minimally invasive CEMENT PALACOS R 1X40 SINGLEFDAStart: 55-65-2344Gammoevqamll, knee, total, minimally invasiveSURFACE ARTICULAR LPS FLEXFDAStart: 96-80-2296Cgylyepoulzo, knee, total, minimally invasiveCEMENT PALACOS R 1X40 SINGLEFDAStart: 11-08-2017 Arthroplasty, knee, total, minimally invasiveCOMPENT FEMORAL GSF LPSFDAStart: 04-29-1940Axqybjqlvcre, knee, total, minimally invasiveCOMPONENT TIBIAL STEMMED FDAStart: 81-40-0183Lkcogzzosctd, knee, total, minimally invasiveKNEE TOTAL LEVEL 1FDAStart: 45-10-2278Smpjfajhrgxg, knee, total, minimally invasivePATELLA POLY 32 MMFDAStart: 36-96-0292Ssdfjiskmevz, knee, total, minimally invasive PATELLA REAMING SYSTEMFDAStart: 45-28-1886Kbctlsbozgtk, knee, total, minimally invasiveSCREW BONE 6.5MM X 35MMFDAStart: 14-07-7913Cpxnxniwqxny, knee, total, minimally invasiveSCREW BONE 6.5MM X 35MMFDAStart: 02-30-1843Exzqtvmsdyxx, knee, total, minimally invasiveCEMENT PALACOS R 1X40 SINGLEFDAStart: 11-08-2017 Arthroplasty, knee, total, minimally invasiveSURFACE ARTICULAR LPS FLEXFDAStart: 56-85-3336Vjzzercvvkcr, knee, total, minimally invasiveCEMENT PALACOS R 1X40 SINGLEFDAStart: 97-14-9870Hqpeqwboxkze, knee, total, minimally invasiveCOMPENT FEMORAL GSF LPSFDAStart: 00-66-0132Ifhbmdksoyif, knee, total, minimally invasive COMPONENT TIBIAL STEMMEDFDAStart: 71-42-1680Atkpsteuhcyf, knee, total, minimally invasiveKNEE TOTAL LEVEL 1FDAStart: 20-16-5959Supixlarziuh, knee, total, minimally invasivePATELLA POLY 32 MMFDAStart: 94-83-2352Whrghyamsxhh, knee, total, minimally invasivePATELLA REAMING SYSTEMFDAStart: 30-85-7775Mrdjlsxkgxrd, knee, total, minimally invasiveSCREW BONE 6.5MM X 35MMFDAStart: 11-08-2017 Arthroplasty, knee, total, minimally invasiveSCREW BONE 6.5MM X 35MMFDAStart: 11-08-2017 Functional Status LnlfKxtjnpqqjjXzydxsCrwfiako11-95-4149Domrvlxlmg StatusN/AExec[facility]10-27-2022Functional StatusN/AFMetroHealth Main Campus [facility] Center09-02-2022Functional StatusN/AExec[facility] Clinical Notes 06-30-2022 to 09-04-2025 Note Date & [id number] NoteBellev Office Cardiology Clinic Note Reason for [...] surgery, hypothyroidism. She was followed previously by [facility] cardiology in [place]. Recently she was seen in [facility] on 09/12/[address] Resendez after she [...] artery disease Brother Allergies Allerg xt,d.farinae-d.pteronys; Ciprofloxacin; Rockfield; Dog dander; Milk; Mold; Sulfa (sulfonamide antibiotics); [...] increased effort of breathing, (more content not included)...[facility]10-28-2025 Hospital Discharge instructions Patient Education 08/25/2025 11:08:08 [...] Follow these instructions at home: Medicines Take bklo-exz-yvwautf and prescription medicines only as told by [...] or the blood stops without treatment. Take xbwr-hks-dpwxnzy and prescription medicines only as told by your health care provider. Drink enough fluid to keep your urine pale yellow. This information is not intended to replace advice given to you by your health care provider. Make sure you discuss any questions you have with your health care provider. Document Revised: 06/15/2021 Document Reviewed: 06/15/2021 Snapflow Patient Education 2023 [email or web address]. Follow Up Care 08/24/2025 13:54:11 With:MO HAYDEN, Yehuda Haddad, URL Address: [address] [place] [address]- When: Unknown Comments:F/u as planned 10/19/25, or sooner if needed [facility] 10-28-2025 NotePatient Education Urology Hematuria, Adult [...] these instructions at home: Medicines ??? Take miby-pce-xpvyack and prescription medicines only as told by [...] the blood stops without treatment. ??? Take vhwk-pni-iqramlq and prescription medicines only as told by your health care provider. ??? Drink enough fluid to keep your urine pale yellow. This information is not intended to replace advice given to you by your health care provider. Make sure you discuss any questions you have with your health care provider. Document Revised: 06/15/2021 Document Reviewed: 06/15/2021 ElseExperience Headphones Patient Education ? 2023 [email or web address].[facility] 08-03-2025 Evaluation note* Diagnosis Onset Date Resolution Status Admit Date Memory loss acuteOctober 2024 1:52pmOSA (obstructive sleep apnea)acuteOctober 2024 1:52pmSleep deprivationacuteOctober 2024 1:52pm [facility] Work Phone: 1(357) 427-936110-06-2025 Evaluation note* Diagnosis Onset Date Resolution Status Admit Date Memory loss acuteOctober 2024 1:52pmOSA (obstructive sleep apnea)acuteOctober 2024 1:52pmSleep deprivationacuteOctober 2024 1:52pmADHD (attention deficit hyperactivity disorder)acuteOctober 2024 10:20amMemory lossacuteOctober 2024 10:20amSleep deprivationacuteOctober 2024 10:20amWord finding difficultyacuteOctober 2024 10:20am [facility] Work Phone: 1(980) 566-689310-06-2025 Hospital Discharge instructionsAmbulatory Orders* Referral to Neuropsychology Time Frame: 08/03/25, Location: None Selected [facility] Work Phone: 1(847) 928-681809-11-2025 History of Present illness Narrative* Connor Anaya, DO - 07/09/2025 10:00 AM EDT Subjective Patient ID: Miky Fuentes is a 75 y.o. female. Miky presents today for a CV recheck. She is taking all of her medications. She does not have anyside effects. She does see the pre billing clinician. She is taking Farxiga for her heart. [...] Exam Vitals reviewed. Exam conducted with a judge clerk present (daughter). Constitutional: General: She is not [...] her history of diabetes. documented in this encounterACMC [facility] System [facility]07-29-2025 History of Present illness Narrative* Jr. Lesvia [...] Other Reaction(s): Unknown Ciprofloxacin Rash and Unknown Rockfield Oil Diarrhea Milk (Cow) Other Increased Mucus [...] SILVER ADULT 50+ PO) as directed Orally Copeland-3 Fatty Acids (OMEGA-3 FISH OIL PO) Oral [...] Use: Not At Risk (02/20/2023) [facility] Frequency of Alcohol Consumption: Never Average [...] for requiring urgent evaluation. documented in this encounterNortheast Regional Medical CenterKzurcwzxgo66-88-2379 Hospital Discharge instructions Patient Education 04/07/2025 11:55:09 [...] Follow these instructions at home: Medicines Take mhzb-wzc-lleuakw and prescription medicines only as told by [...] to keep your pee pale yellow. ?Take tlea-xdf-nctrpdy or prescription medicines. ?Eat foods that are [...] and water are not available, use hand traveling plant operator. ?Change your dressing as told by your [...] provider. Document Revised: 06/14/2023 Document Reviewed: 06/14/2023 Snapflow Patient Education 2023 [email or web address]. 04/07/2025 11:55:06 Percutaneous Nephrolithotomy Percutaneous Nephrolithotomy Percutaneous [...] including vitamins, herbs, eye drops, creams, and wdme-amv-vdfverb medicines. Any problems you or family members [...] unless your provider tells you to. Taking jcgz-hvn-rbtkjir medicines, vitamins, herbs, and supplements. Tests You [...] provider. Document Revised: 06/14/2023 Document Reviewed: 06/14/2023 Snapflow Patient Education 2023 [email or web address]. Follow Up Care 01/20/2025 08:42:49 With:MO HAYDEN, Yehuda Haddad, URL Address: [address] [place] [address]- When:Within 6 Month(s) [facility] 06-10-2025 NotePatient Education Urology Percutaneous Nephrolithotomy, [...] these instructions at home: Medicines ??? Take mikc-fsf-fjzlvyk and prescription medicines only as told by [...] keep your pee pale yellow. ? Take zdfa-kbv-vppfmwn or prescription medicines. ? Eat foods that [...] and water are not available, use hand traveling plant operator. ? Change your dressing as told by [...] provider. Document Revised: 06/14/2023 Document Reviewed: 06/14/2023 ElseExperience Headphones Patient Education ? 2023 [employer][email or web address]. Percutaneous Nephrolithotomy Percutaneous nephrolithotomy is a procedure [...] including vitamins, herbs, eye drops, creams, and hlfi-ked-wtdbefr medicines. ??? Any problems you or family members have had with anesthesia. ??? Any bleeding problems you have. ??? Any surgeries you have had. ?? (more content not included)...[facility]06-09-2025 History of Present illness Narrative* Connor [...] Exam Vitals reviewed. Exam conducted with a judge clerk present ([place] MS 3). Constitutional: General: [...] apnea issue as well documented in this encounterACMC Healthcare System Glenbeigh04-08-2025 NoteUT Electrophysiology Consult Note [place] [facility] Reason for visit: Afib/ Chest pain [...] Lexiscan nuclear stress test on 10-21 at [facility] was uninterpretable due to the EKG portion but there was a fixed defect of the anterior inferior wall. She had an FFR CT study done on 11/27/2024 which did not reveal any significant lesions. She had repeat admission at [facility] for chest pain. With regard to her [...] Use: Not At Risk (02/20/2023) Received from [facility] Frequency of Alcohol Consumption: Never Average Number of Drinks: Patient does not drink Frequency of Binge Drinking: Never Financial Resource Strain: Low Risk (02/20/2023) Received from [facility] Overall Financial Resource Strain (CARDIA) Difficulty of Paying Living Expenses: Not hard at all Food Insecurity: No Food Insecurity (01/19/2025) Received from [facility] Hunger Screening Within the past 12 months we worried whether our food would run out before we got money to buy more.: Never True Within the past 12 months the food we bought just didn't last and we didn't have money to get more.: Never True Transportation Needs: No Transportation Needs (02/20/2023) Received from [facility] PRAPARE - Transportation Lack of Transportation (Medical): No Lack of Transportation (Non-Medical): No Physical Activity: Sufficiently Active (06/21/2023) Received from [facility] Exercise Vital Sign Days of Exercise per Week: 7 days Minutes of Exercise per Session: 30 min Stress: No Stress Concern Present (02/20/2023) Received from [facility] [place] [facility] [employer] [facility] - Occupational Stress Questionnaire Feeling of Stress : Only a little Social Connections: Socially Isolated (11/25/2024) Received from [facility] Social Connection and Isolation Panel [NHANES] Frequency of Communication with Friends and Family: More than three times a week Frequency of Social Gatherings with Friends and Family: Once a week Attends Protestant Services: Never Active Member of Clubs or Organizations: No Attends Club or Organization Meetings: Never Marital Status: Intimate Partner Violence: Not on file Depression: Not at risk (01/19/2025) Received from [facility] PHQ-2 Total Score: 0 Housing Stability: Low Risk (02/20/2023) Received from [facility] Housing Instability Are you worried or concerned that in the next two months you may not have stable housing that you own, rent or stay in as a part of a household?: No Utilities: Not At Risk (11/25/2024) Received from [facility] Utilities Threatened with loss of utilities: [...] the morning. levothyroxine (Sy (more content not included)...[facility]03-24-2025 History of Present illness Narrative* Connor Anaya, [...] Exam Vitals reviewed. Exam conducted with a judge clerk present (Brodie Holt MS 3). Constitutional: General: [...] Morbid obesity (CMS-HCC) Noted documented in this encounterAC[facility] History of Present illness Narrative* Connor Anaya [...] Do you have a durable power of trial attorney?: Yes Cognitive Screening Do you have [...] 1 year (around 11/25/2025). documented in this encounterAC[facility]01-07-2025 History of Present illness Narrative* Jr. Lesvia [...] Other Reaction(s): Unknown Ciprofloxacin Rash and Unknown [place] Oil Diarrhea Milk (Cow) Other Increased Mucus [...] SILVER ADULT 50+ PO) as directed Orally Copeland-3 Fatty Acids (OMEGA-3 FISH OIL PO) Oral [...] Use: Not At Risk (02/20/2023) Received from [facility], [facility] Frequency of Alcohol Consumption: Never Average [...] for requiring urgent evaluation. documented in this encounterNortheast Regional Medical [id number] NoteBelle[facility] Note Reason for cardiology consult: Chief Complaint: Occasional palpitations HPI: Miky Fuentes is a 74 y.o. female with history of paroxysmal atrial fibrillation, nonischemic cardiomyopathy, asymptomatic sinus bradycardia, hypertension, hyperlipidemia, obesity status post bariatric surgery, hypothyroidism. She was followed previously by [facility] cardiology in [place]. 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 Assessment/Plan [facility]. Diagnoses and all orders for this visit: Nonsustained ventricular tachycardia (CMS-HCC) Follow up with cardiology as directed. Continue current regimen. Hospital records and tests reviewed. Non-ischemic cardiomyopathy (CMS-HCC) As above. She did have an abnormal Lexiscan. She needs to follow up with Cardiology. Paroxysmal atrial fibrillation ([facility]) Continue Xarelto Primary hypertension Blood pressure [...] benefit from weight loss. documented in this encounterACMC [facility]12-01-2024 Miscellaneous Notes* Telephone Encounter - Juju Van - 09/28/2024 8:45 PM EST Contract: [id number] Suki travis critical EKG report * Telephone Encounter - Juju Van - 09/28/2024 8:45 PM EST Relayed info to Dr Anaya on cell and transferred documented in this encounterACMC [facility]12-01-2024 Telephone encounter Note* Telephone Encounter - Juju Van - 09/28/2024 8:45 PM EST Contract: [id number] Suki travis critical EKG report [facility]-2024 Telephone encounter Note* Telephone Encounter - Juju Van - 09/28/2024 8:45 PM EST Relayed info to Dr Anaya on cell and transferred [facility]-2024 History of Present illness Narrative* Connor Anaya DO - 09/03/2024 4:51 PM EST Patient has severe OA of the knee. Handicap parking placard printed documented in this encounterMetroHealth Parma Medical CenterMonster Digital [facility] [id number] History of Present illness Narrative* VIC Avila [...] SILVER ADULT 50+ PO) as directed Orally Copeland-3 Fatty Acids (OMEGA-3 FISH OIL PO) Oral [...] Use: Not At Risk (02/20/2023) Received from [facility], [facility] Frequency of Alcohol Consumption: Never Average [...] for requiring urgent evaluation. documented in this encounterNortheast Regional Medical CenterJccxavrrbr03-14-1379 Miscellaneous Notes* Telephone Encounter - Isa Triana CMA - 09/02/2024 12:07 PM EST Patient called to renew her handicap placard. Can you please get this ready for patient to picker tender helper. * Telephone Encounter - Connor Anaya DO - 09/02/2024 12:07 PM EST Okay, it is ready documented in this encounterACMC Healthcare [facility]11-05-2024 Telephone encounter Note* Telephone Encounter - Isa Triana CMA - 09/02/2024 12:07 PM EST Patient called to renew her handicap placard. Can you please get this ready for patient to picker tender helper. [facility]11-05-2024 Telephone encounter Note* Telephone Encounter - Connor Anaya DO - 09/02/2024 12:07 PM EST Okay, it is ready [facility] CenterEmpiribox [id number] History of Present illness Narrative* Carmen Lopez [...] once daily., Disp: 90 tablet, Rfl: 3 macjtcok-hvs-xomi-FA-vit K-lut (Centrum Silver Women) 8 mg iron-400 mcg-50 mcg tablet, Take 1 tablet by mouth once daily., Disp: , Rfl: omega-3 fatty acids-fish oil (One-Per-Day Copeland-3) 684-1,200 mg capsule, Take 1 capsule (1,200 [...] exam, discussion and plan. documented in this [facility] Work Phone: 1(178) 688-317910-31-2024 Instructions* Patient Instructions* Hollie Gleason LPN - [...] Follow up 7 months documented in this [facility] Work Phone: 1(252) 642-998910-21-2024 History of Present illness Narrative* Connor Anaya, [...] has gradually lost weight documented in this encounterMetroHealth Parma Medical CenterGlobal Analytics10-01-2024 Evaluation + Plan note Diagnostic Tests Pending * UroVysion Fish and Urine Cyto ([facility]) 07/29/24 [facility] 09-17-2024 Hospital Discharge instructions Patient Education 07/15/2024 15:39:15 Kidney Stones, Qhla-qt-Uxpa Kidney Stones Kidney stones are rock-like masses [...] Follow these instructions at home: Medicines Take robu-itd-rekhooy and prescription medicines only as told by [...] provider. Document Revised: 06/08/2023 Document Reviewed: 06/08/2023 Snapflow Patient Education 2023 [email or web address]. 07/15/2024 15:39:14 Hematuria, Adult Hematuria, Adult Hematuria [...] Follow these instructions at home: Medicines Take jdrw-mfj-izuplno and prescription medicines only as told by [...] or the blood stops without treatment. Take kukg-uwv-nxebbtm and prescription medicines only as told by your health care provider. Drink enough fluid to keep your urine pale yellow. This information is not intended to replace advice given to you by your health care provider. Make sure you discuss any questions you have with your health care provider. Document Revised: 06/15/2021 Document Reviewed: 06/15/2021 Snapflow Patient Education 2023 [email or web address]. Follow Up Care 07/03/2024 12:40:23 With:MO HAYDEN, Yehuda Haddad, URL Address: [address] [place] [address]- When: Unknown Comments:pending review of imaging [facility] 09-17-2024 NotePatient Education Urology Kidney Stones [...] these instructions at home: Medicines ? Take klak-dbo-japzsvv and prescription medicines only as told by [...] provider. Document Revised: 06/08/2023 Document Reviewed: 06/08/2023 Snapflow Patient Education ? 2023 [email or web address]. Hematuria, Adult Hematuria is blood in the [...] identify the cause (more content not included)... [facility]09-17-2024 Evaluation + Plan note Diagnostic Tests Pending * Urine Cytology ([facility]) 07/15/24 [facility] 05-09-2024 History of Present illness Narrative* Nick [...] once daily., Disp: 90 tablet, Rfl: 3 vlmoykun-umg-amhi-FA-vit K-lut (Centrum Silver Women) 8 mg iron-400 mcg-50 mcg tablet, Take 1 tablet by mouth once daily., Disp: , Rfl: omega-3 fatty acids-fish oil (One-Per-Day Copeland-3) 684-1,200 mg capsule, Take 1 capsule (1,200 [...] exam, discussion and plan. documented in this encounterChildren[facility] of [facility] Work Phone: 1(491) 177-424005-09-2024 Instructions* Patient Instructions* Ivett Mcpherson LPN - [...] time of your visit. documented in this encounterChildren's Hospital of [facility] Work Phone: 1(482) 896-582204-24-2024 Miscellaneous Notes* Telephone Encounter - Shefali Gudino - 02/20/2024 11:02 AM EDT 02/17 received HST order 02/19 Scheduled HST at [facility] 03/17, 7:30pm Confirmation mailed Routed to Dr. Hussein for approval Medicare/[facility] HST order and 02/17 [place]long notes in epic * Telephone Encounter - Shefali Gudino - 02/20/2024 11:02 AM EDT DIRECT REFFERAL ; NEEDS APPROVAL documented in this encounterACMC Healthcare [facility]igh04-24-2024 Telephone encounter Note* Telephone Encounter - Shefali Gudino - 02/20/2024 11:02 AM EDT 02/17 received HST order 02/19 Scheduled HST at [facility] 03/17, 7:30pm Confirmation mailed Routed to Dr. Hussein for approval Medicare/[facility] HST order and 02/17 Chaitanyang notes in epic [facility] [id number] Telephone encounter Note* Telephone Encounter - Shefali Gudino - 02/20/2024 11:02 AM EDT DIRECT REFFERAL ; NEEDS APPROVAL [facility] [id number] History of Present illness Narrative* Connor Ruiz [...] total) by mouth in the morning. - rculf-pb-8-lnv-cgy-wwqamif-ast (KRILL OIL) 1,816-345-44-80 mg capsule; Take 1 capsule by mouth inthe morning. documented in this encounterMetroHealth Parma Medical CenterGlobal Analytics11-08-2022 Hospital Discharge instructions Patient Education 09/05/2022 12:09:04 [...] Address: [facility] [address] [place] [address]- Business (1) When:03/05/2023 12:06:31 [facility]09-02-2022 Hospital Discharge instructions Patient Education 06/30/2022 12:01:44 Kidney Stones, Nroj-kc-Myiq Kidney Stones Kidney stones are rock-like masses [...] Follow these instructions at home: Medicines Take ucyj-aiu-dvmnruo and prescription medicines only as told by [...] 04/02/2009 Document Revised: 03/02/2020 Document Reviewed: 03/02/2020 Snapflow Patient Education 2019 [email or web address]. Follow Up Care 12/28/2021 15:15:51 With:Yehuda HASSAN MD, URL Address: [address] [place], [place] [id number]- When: Unknown [facility] evaluation + Plan note Future Appointments Appointment Date:03/02/2023 11:00:00 AM Scheduled Provider:Yehuda HASSAN MD Location:[facility] Appointment Type:URO Office Visit [facility] evaluation + Plan note Future Appointments Appointment Date:03/02/2023 11:00:00 AM Scheduled Provider:Yehuda HASSAN MD Location:[facility] Appointment Type:URO Office Visit Diagnostic Tests Pending * Urine Culture 08/11/22 [facility] Future Appointments Appointment Date:03/02/2023 11:00:00 AM Scheduled Provider:Yehuda HASSAN MD Location:[facility] Appointment Type:URO Office Visit Diagnostic Tests Pending * UroVysion Fish and Urine Cyto ([facility]) 09/05/22 [facility] Future Appointments Appointment Date:05/16/2024 10:45:00 AM Scheduled Provider:Yehuda HASSAN MD Location:[facility] Appointment Type:URO Office Visit [facility] evaluation + Plan note Future Appointments Appointment Date:05/20/2024 11:00:00 AM Scheduled Provider:RAAD Back APRN, [place] X Location:[facility] Appointment Type:URO Office Visit [facility] evaluation + Plan note Future Appointments Appointment Date:06/10/2024 03:00:00 PM Scheduled Provider:RAAD Back APRN, [place] X Location:[facility] Appointment Type:URO Office Visit [facility] evaluation + Plan note Future Appointments Appointment Date:07/01/2024 02:30:00 PM Scheduled Provider:RAAD Back APRN, [place] X Location:[facility] Appointment Type:URO Office Visit [facility] evaluation + Plan note Future Appointments Appointment Date:10/19/2025 10:30:00 AM Scheduled Provider:Yehuda HASSAN MD Location:[facility] Appointment Type:URO Office Visit Future Scheduled Tests Radiology* XR Abdomen 1 View 10/07/25 [facility] evaluation note* Diagnosis Mixed hyperlipidemia- Primary Paroxysmal atrial fibrillation (Multi) Atrial fibrillation Non-ischemic cardiomyopathy (Multi) Other primary cardiomyopathies Never smoked tobacco BMI 36.0-36.9,adult Hyperlipidemia, unspecified hyperlipidemia type documented in this encounter [facility] Work Phone: Evaluation note* Diagnosis Paroxysmal atrial fibrillation (Multi)- Primary Atrial fibrillation Non-ischemic cardiomyopathy (Multi) Other primary cardiomyopathies Mixed hyperlipidemia Sinus bradycardia Other specified cardiac dysrhythmias High risk medication use Class 2 obesity BMI 35.0-35.9,adult Never smoked tobacco documented in this encounter [facility] Work Phone: Evaluation note* Diagnosis Arthritis of right knee- Primary Acute pain of right knee Chondromalacia, patella, right documented in this encounter [facility] HealthcareEvaluation note* Diagnosis Arthritis of right knee- Primary Acute pain of right knee Chondromalacia, patella, right documented in this encounter [facility] HealthcareEvaluation note* Diagnosis Proteinuria, unspecified [facility] this encounter [facility]* Diagnosis Medicare annual wellness visit, subsequent- Primary Screening for depression documented in this encounter [facility]* Diagnosis 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- Primary Minimal cognitive impairment Sleep apnea, unspecified type Acquired hypothyroidism Unspecified hypothyroidism Class 2 severe obesity due to excess calories with serious comorbidity and body mass index (BMI) of37.0 to 37.9 in adult ([facility]) documented in this encounter [facility]* Diagnosis Primary hypertension- Primary Unspecified essential hypertension Hyperlipidemia, unspecified hyperlipidemia type Acquired hypothyroidism Unspecified hypothyroidism Osteoarthritis of multiple joints, unspecified osteoarthritis type 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 and body mass index (BMI) of 36.0 to 36.9 in adult documented in this encounter [facility]* Diagnosis Nonsustained ventricular tachycardia (CMS-HCC)- Primary Non-ischemic cardiomyopathy (CMS-HCC) Other primary cardiomyopathies Paroxysmal atrial fibrillation ([facility]) Atrial fibrillation Primary hypertension Unspecified essential hypertension Need for immunization against influenza Need for prophylactic vaccination and inoculation against influenza 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 and body mass index (BMI) of 35.0 to 35.9 in adult documented in this encounter [facility]* Diagnosis Cognitive impairment- Primary Unspecified persistent mental disorders due to conditions classified elsewhere Memory loss Anemia, unspecified type Acquired hypothyroidism Unspecified hypothyroidism Gross hematuria Attention or concentration deficit Paroxysmal atrial fibrillation (CMS-HCC) Atrial fibrillation Non-ischemic cardiomyopathy (CMS-HCC) Other primary cardiomyopathies Morbid obesity (CMS-HCC) Morbid obesity documented in this encounter [facility]* Diagnosis Memory loss- Primary Cognitive impairment Unspecified persistent mental disorders due to conditions classified elsewhere documented in this encounter [facility]* Diagnosis Cognitive impairment- Primary Unspecified persistent mental disorders due to conditions classified elsewhere Minimal cognitive impairment Attention or concentration deficit Sleep apnea, unspecified type documented in this encounter [facility]* Diagnosis Acute pain of right knee- Primary Arthritis of right knee documented in this encounter [facility] HealthcareEvaluation note* Diagnosis Primary hypertension- Primary Unspecified essential hypertension Acquired hypothyroidism Unspecified hypothyroidism Hyperlipidemia, unspecified hyperlipidemia type Class 1 obesity due to excess calories with serious comorbidity and body mass index (BMI) of 33.0 to 33.9 in adult History of diabetes mellitus, type II documented in this encounter [facility]* Diagnosis Onset Date Resolution Status Admit Date Memory loss acuteOctober 2024 1:52pm [facility] Work Phone: History of Present illness NarrativePatient returns in follow-up of problems as noted. In the interim she is done well. She has none ofthe symptoms of cardiomyopathy that preceded her original diagnosis of heart failure. With guideline directed therapy in the anglican of maintenance of sinus rhythm her symptoms [...] diet and weight loss. [facility] [facility] DO Work Phone: Hospital course Narrative No data available for this section [facility] Hospital Discharge instructions No data available for this section [facility] InstructionsNot on filedocumented in this encounter [...] available for this section [facility] Chief Complaint * I am doing [...] sleep study Connor Anaya, DO [address] [facility], [place] [address] Referral IDStatus[facility] DateExpiration DateVisits RequestedVisits [id number] / ProceduresReferred By ContactReferred To Contact Diagnoses Paroxysmal atrial fibrillation (Multi) Procedures ECG 12 Lead Nick Richardson MD [address] [place] [address] [address], [address] [address] Referral IDStatus[facility] DateExpiration DateVisits RequestedVisits [id number] / Procedures Referred By ContactReferred To ContactCardiology Diagnoses Non-ischemic cardiomyopathy (Multi) Procedures Follow Up In Cardiology Nick Richardson MD [address] [facility] 2, [place] [address] [place] [id number] Carmen Lopez MD [address] [facility] 2, [address] [address] Referral IDStatusReasonStart DateExpiration DateVisits RequestedVisits [id number] Chief Complaint and Reason for Visit Reason for Visit Admit Date Memory loss August 03, 2025 1: 52pm Chief Complaint Admit Date NPCR MCR & SUPP; PER Connor. JA YJAY July 292024 10:20am Reason for Visit Admit [...] DATE CREATED AUTHOR AUTHOR'S ORGANIZ ATION 12/07/2022 [facility] DATE CREATED AUTHOR AUTHOR'S ORGANIZ ATION 12/07/2022 [employer] DATE CREATED AUTHOR AUTHOR'S ORGANIZ ATION 03/09/2023 [facility] DATE CREATED AUTHOR AUTHOR'S ORGANIZ ATION 07/17/2024 [facility] DATE CREATED AUTHOR AUTHOR'S ORGANIZ ATION 09/19/2024 [facility] DATE CREATED AUTHOR AUTHOR'S ORGANIZ ATION 09/25/2024 [facility] DATE CREATED AUTHOR AUTHOR'S ORGANIZ ATION 01/21/2025 [facility] DATE CREATED AUTHOR AUTHOR'S ORGANIZ ATION 03/25/2025 [facility] DATE CREATED AUTHOR AUTHOR'S ORGANIZ ATION 05/27/2025 [facility] DATE CREATED AUTHOR AUTHOR'S ORGANIZ ATION 07/11/2025 [facility] DATE CREATED AUTHOR AUTHOR'S ORGANIZ ATION 08/27/2025 [facility] DATE CREATED AUTHOR AUTHOR'S ORGANIZ ATION 09/03/2025 [facility] DATE CREATED AUTHOR AUTHOR'S ORGANIZ ATION 09/06/2025 [facility] Care Team (unrecognized sect ion and content) Team MemberRelationshipSpecialtyStart DateEnd Date Connor Anaya DO [address], [place] [address] PCP - General10/29/19Team MemberRelationshipSpecialtyStart DateEnd Date Connor Anaya DO PCP - General10/29/19Team MemberRelationshipSpecialtyStart DateEnd Date Connor Anaya MD [address], [place] [address] PCP - GeneralFamily Medicine03/26/24Team MemberRelationshipSpecialtyStart DateEnd Date Connor Anaya MD [address] [place] [address] PCP - GeneralFamily Medicine03/26/24Team MemberRelationshipSpecialtyStart DateEnd Date Connor Anaya MD [address] [place] [address] PCP - GeneralFamily Medicine03/26/24Team MemberRelationshipSpecialtyStart DateEnd Date Connor Anaya MD [address], [place] [address] PCP - GeneralFamily Medicine03/26/24Team MemberRelationshipSpecialtyStart DateEnd Date Connor Anaya DO [address], [place] [address] PCP - GeneralFamily Medicine11/13/22 Desiree Inderjit [facility] Nurse - [employer]07/01/24Team MemberRelationshipSpecialtyStart DateEnd Date Connor Anaya DO [address], [place] [address] PCP - GeneralFamily Medicine11/13/22 Yuni Borja [facility] Nurse - [employer]11/20/24Team MemberRelationshipSpecialtyStart DateEnd Date Connor Anaya DO [address], [place] [address] PCP - GeneralFamily Medicine11/13/22Team MemberRelationshipSpecialtyStart DateEnd Date Connor Anaya DO [address], [place] [address] PCP - GeneralFamily Medicine11/13/22Team MemberRelationshipSpecialtyStart DateEnd Date Connor Anaya DO [address] [place] [address] PCP - GeneralFamily Medicine11/13/22Team MemberRelationshipSpecialtyStart DateEnd Date Connor Anaya, DO [address], [place] [address] PCP - GeneralFamily Medicine11/13/22Team MemberRelationshipSpecialtyStart DateEnd Date Connor Anaya, DO [address], [place] [address] PCP - GeneralFamily Medicine11/13/22 Desiree Jansen CCM Nurse - [employer]9/01/19Team MemberRelationshipSpecialtyStart DateEnd Date Connor Anaya, [address], [place] [address] PCP - GeneralFamily Medicine11/13/22 Desiree Jansen [facility] Nurse - [employer]9/324Team MemberRelationshipSpecialtyStart DateEnd Date Connor Anaya, [address], [place] [address] PCP - GeneralFamily Medicine11/13/22 Desiree Jansen CCM Nurse - [employer]9/3/24Team MemberRelationshipSpecialtyStart DateEnd Date Connor Anaya, DO [address], [place] [address] PCP - GeneralFamily Medicine11/13/22 Desiree Jansen CCM Nurse - [employer]9/3/24Team MemberRelationshipSpecialtyStart DateEnd Date Connor Anaya, DO [address], [place] [address] PCP - GeneralFamily Medicine11/13/22 Desiree Jansen CCM Nurse - [employer]07/01/24Team MemberRelationshipSpecialtyStart DateEnd Date Connor Anaya DO [address], [place] [address] PCP - GeneralFamily Medicine11/13/22 Yuni Alasandro CCM Nurse - [employer]11/20/24Team MemberRelationshipSpecialtyStart DateEnd Date Connor Anaya DO [address], [place] [address] PCP - GeneralFamily Medicine11/13/22 Yuni Alasandro CCM Nurse - [employer]1/Team MemberRelationshipSpecialtyStart DateEnd Date Connor Anaya DO [address], [place] [address] PCP - GeneralFamily Medicine11/13/22 Yuni Alasandro [facility] Nurse - [employer]1Team MemberRelationshipSpecialtyStart DateEnd Date Connor Anaya DO [address], [place] [address] PCP - GeneralFamily Medicine11/13/22 Yuni Alasandro [facility] Nurse - Signal[employer]11/20/24Team MemberRelationshipSpecialtyStart DateEnd Date Connor Anaya MD [address], [place] [address] PCP - GeneralFamily Medicine02/19/25Team MemberRelationshipSpecialtyStart DateEnd Date Connor Anaya MD [address], [place] [address] PCP - GeneralFamily Medicine02/19/25Team MemberRelationshipSpecialtyStart DateEnd Date Connor Anaya DO [address], [place] [address] [facility]CP - [facility] Hospitally Medicine11/13/22 Yuni Borja [facility] Nurse - SignalLam11/20/24 Team Status: Active Member [...] Date Connor Anaya DO [address] [facility], [address] [place] [id number] PCP - GeneralD[facility] Hospitally Medicine11/13/22 Yunihenry Borja [facility] Nurse - SignalLam11/20/24 Reason for Visit (unrecogniz ed section and content) ReasonCommentsFollow-ie3kjSiqcwuptbTzzxdwwsl / ProceduresReferred By Contact Referred To ContactCardiology Diagnoses Paroxysmal atrial fibrillation (Multi) Procedures Follow Up In Cardiology Nick Richardson MD [address] [place] [address] [address], [address] [address] Referral IDStatusReasonStart DateExpiration DateVisits RequestedVisits [id number]/26/20242/25/[id number] SpecialtyDiagnoses / ProceduresReferred By ContactReferred To ContactCardiology Diagnoses Non-ischemic cardiomyopathy (Multi) Procedures Follow Up In Cardiology Nick Richardson MD Ibrahim, Hassan M, MD [address] [facility] [address], [address] [address] Phone: tel: fax: Referral IDStatusReasonStfayville DateExpiration DateVisits RequestedVisits [id number]/9/20245/[id number]seUrzlyoya PainReasonOnset DateCommentsMed Uqihog4211/14/2024ReasonCommentsmawReasonComments Med RefillReasonCommentsFollow-upReasonOnset DateCommentsSleep Lab02/20/2024HST ReasonCommentsFollow-upReasonOnset DateCommentscritical EKG14Reason [...] BE BASED ON THE PRIMARY CLINICAL RECORDS. [employer] [facility]. provides no warranty or guarantee of the accuracy or completeness of information in this document.
== END 2025-09-10 12:54 | disposition home or self-care (01) ==
LOC: MAMMO 12:53
PROVIDERS: PCP Family Medicine; Visit Provider Family Medicine
DX: Z12.31 Encounter for screening mammogram for malignant neoplasm of breast (principal); Z80.0 Family history of malignant neoplasm of digestive organs; Z80.8 Family history of malignant neoplasm of other organs or systems; R31.0 Gross hematuria; N20.0 Calculus of kidney
CPT/HCPCS: 36415; 74178; 77063; 77067; 82565; Q9967